=== PATIENT | male | born 1960 | race Caucasian/White ===

== ENCOUNTER 2016-10-21 12:29 | Emergency (ER) | payer MEDICARE, OTHER ==
[~2016-10-21] VITALS: Ht 167.6 cm; Wt 72.6 kg
[~2016-10-21 12:29] MED LIST: AMLO2.5T PO; AMLO5TAB2 PO; AMOX500C2 PO; BPR100T PO; BPR75T PO; BRIMON0.2 OD; BUPR-168 PO; CEPH-507 PO; CIPR-225 PO; CIPR500T21 PO; D50KC PO; DORZ10DR2 OD; DOXY100C2 PO; FERR325C PO; FLUO20CA42 PO; FLUO40CA PO; GABA600T2 PO; GBPN300C PO; GBPN600T PO; GLIP10TA13 PO; GLIP5TAB13 PO; HCT25T PO; HYDR-1231 PO; HYDR-3812 PO; HYDR12.56 PO; HYDR1TAB66 PO; INSU100I14 SQ; INSU100I16 SQ; INSU100I29 SQ; LEVE1U SQ; LISI10TA PO; LISI10TA2 PO; LISI5TAB PO; METO-270 PO; METO50TA7 PO; METR500T21 PO; MGX400T PO; ONDA8TAB9 PO; OXYC-471 PO; PNT40TEC PO; PRD20T PO; PRM25T PO; PROM25TA14 PO; SCR1T1 PO; TERB15CR6 TP; TOBR5DRO12 OP; TRAZ-28 PO; TRAZ150T42 PO; TRZ50T PO; [UNRECOGNIZED DRUG - CODE] SQ
--- OUTSIDE RECORDS SUMMARY | 2016-10-21 12:34 | XMS REPORT | Continuity of Care Document ---
Author Author [facility] Organization [facility] Address Unknown Phone Unavailable Care Team Providers Care Quality Control Lead Name Role Phone Alvarez Ozuna PCP [phone] Source Comments Some departments are not documenting in the electronic medical record. If you do not see the information that you expected, contact Release of Information in the Health Information Management department at [phone] for further assistance in locating additional records.[facility] Active Allergies and Adverse Reactions No Known Allergies Current Medications Prescription Sig. Disp. Refills Start End Date Status Date gabapentin (NEURONTIN) Take 600 mg by mouth Active 600 mg tablet three times daily. INSULIN ASPART (NOVOLOG Inject 5 Units into Active SC) area(s) as directed three times daily before meals. glipiZIDE (GLUCOTROL) 10 Take 10 mg by mouth. Take Active mg tablet 1 and 1/2 tablets (15 mg) Daily. FLUoxetine(+) (PROZAC) 40 Take 40 mg by mouth twice Active mg capsule daily. traZODone (DESYREL) 50 mg Take 50 mg by mouth at Active tablet bedtime daily. lisinopril (PRINIVIL; Take 10 mg by mouth twice Active ZESTRIL) 10 mg tablet daily. amLODIPine (NORVASC) 5 mg Take 2.5 mg by mouth Active tablet twice daily. ferrous sulfate 325 mg Take 325 mg by mouth Active (65 mg iron) tablet twice daily. ERGOCALCIFEROL (VITAMIN Take 2,000 Units by mouth Active D2) (VITAMIN D PO) daily. HYDROcodone/acetaminophen Take 1 Tab by mouth every Active (NORCO; VICODIN) 5-325 mg 6 hours as needed for tablet Pain metoprolol XL (TOPROL XL) Take 25 mg by mouth Active 25 mg tablet daily. buPROPion (WELLBUTRIN) 75 Take 75 mg by mouth twice Active mg tablet daily. insulin detemir(+) Inject 5 Units into 10 mL 12 01/17/20 Active (LEVEMIR) 100 unit/mL area(s) as directed at 16 soln bedtime daily. Active Problems Problem Noted Date HTN (hypertension) 01/15/2016 Urinary retention with incomplete bladder emptying 01/15/2016 Diabetes ([facility]) 01/15/2016 Proliferative diabetic retinopathy(362.02) 01/14/2013 Last Assessment & Plan: Resolving vh after PRP. Recheck 1 month. 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 Give sample of Combigan to use bid. Recheck 1 month. Central retinal artery occlusion 01/14/2013 Last Assessment & Plan: -Reports BP 140s-170s systolic on medication -Presumed based on history, no view at this time Resolved Problems Problem Noted Date Resolved Date Sepsis ([facility]) 01/15/2016 01/17/2016 Severe sepsis ([facility]) 01/15/2016 01/17/2016 LATISHA (acute kidney injury) ([facility]) 01/15/2016 01/17/2016 High anion gap metabolic acidosis 01/15/2016 01/17/2016 Social History Tobacco Use Types Packs/Day Years Used Date Former Smoker Cigars 2 20 Quit: 10/20/2011 Smokeless Tobacco: Never Used Alcohol Use Drinks/Week oz/Week Comments No Last Filed Vital Signs Vital Sign Reading Time Taken Blood Pressure 154/68 01/17/2016 8:39 AM CDT Pulse 62 01/16/2016 7:00 PM CDT Temperature 36.7 C (98.1 F) 01/17/2016 8:39 AM CDT Respiratory Rate - - Height 1.676 m (5' 6") 06/24/2014 2:05 PM CDT Weight 68.04 kg (150 lb) 06/24/2014 2:05 PM CDT Body Mass Index 24.22 06/24/2014 2:05 PM CDT Oxygen Saturation 98% 01/17/2016 8:39 AM CDT Plan of Care Health Maintenance Due Date Last Done Comments Physical (Comprehensive) 1965 Exam Pertussis Vaccine 1969 Tetanus Vaccine 1975 Colorectal Cancer 2008 Screening Influenza Vaccine 06/20/2016 Results from Last 3 Months Not on file
[2016-10-21 13:00] VITALS: BP 157/59
--- NOTE | 2016-10-21 13:29 | ED General ---
General Chief Complaint: Bite-Animal/Human/Insect Stated Complaint: R HAND THUMB BITE, SWOLLEN Nursing Triage Note: PT BIT BY OWN DOG A COUPLE OF WEEKS AGO, R THUMB SWOLLEN REDDEND, PAINFUL, HAS STREAK GOING UP WRIST FROM THUMB R SIDE Nursing Sepsis Screen: No Definite Risk Source of Information: Patient, Spouse Exam Limitations: No Limitations History of Present Illness Time Seen by Provider: 13:28 Initial Comments 56 yo male patient presents to the emergency department with complaints of right thumb pain, swelling, redness. Sustained a dog bite to the right thumb a couple of weeks ago while trying to break up a dog fight. Now reports streaking up the right forearm. Location Injury Occurred: home Timing/Duration: Getting Worse, Other (2 weeks) Modifying Factors: worse with Movement, worse with Other (worsened palpation) Allergies and Home Medications Allergies Coded Allergies: No Known Drug Allergies (Unverified , 08/24/13) Home Medications Amlodipine Besylate 5 Mg Tablet 2.5 MG PO DAILY (Reported) TAKES 1/2 OF A (5 MG) TABLET Amoxicillin/Potassium Clav 1 Each Tablet #20 1 EACH PO BID Prescribed by: POP AGUILLON on 10/21/16 1458 Brimonidine Tartrate 5 Ml Btl 1 DROP OD BID (Reported) Bupropion HCl 75 Mg Tablet 1 TAB PO BID (Reported) Clindamycin HCl 300 Mg Capsule #20 300 MG PO BID Prescribed by: POP AGUILLON on 10/21/16 1458 Dorzolamide HCl 10 Ml Drops 10 ML OD BID (Reported) Ergocalciferol (Vitamin D2) 50,000 Unit Capsule 50,000 UNIT PO WEEKLY (Reported ) Ferrous Sulfate 325 Mg Capsule.er 325 MG PO BID (Reported) Fluoxetine HCl 40 Mg Capsule 80 MG PO DAILY (Reported) TAKES 2 (40 MG) CAPSULES Gabapentin 600 Mg Tablet 600 MG PO TID (Reported) Glipizide 10 Mg Tablet 15 MG PO DAILY (Reported) TAKES 1 & 1/2 OF A (10 MG) TABLET Hydrocodone/Acetaminophen 1 Each Tablet 1 TAB PO Q6H PRN PRN PAIN (Reported) Hydrocodone/Acetaminophen 1 Each Tablet #14 1 EACH PO Q4H PRN PRN PAIN Prescribed by: POP AGUILLON on 10/21/16 1458 Insulin Aspart 300 Units/3 Ml Solution 5 UNITS SQ TID (Reported) PER SLIDING SCALE; DOES NOT ADMINISTER IF BS IS 150 OR BELOW Insulin Detemir 100 Unit/1 Ml Insuln.pen 15 UNITS SQ HS (Reported) DOES NOT ADMINISTER IF BS IS 150 OR BELOW Lisinopril 10 Mg Tablet 10 MG PO BID (Reported) Metoprolol Succinate 25 Mg Tab.er.24h 25 MG PO HS (Reported) Trazodone HCl 50 Mg Tablet 50 MG PO HS (Reported) Constitutional: No chills, No fever, No malaise EENTM: no symptoms reported Respiratory: no symptoms reported Cardiovascular: no symptoms reported Gastrointestinal: no symptoms reported Musculoskeletal: see HPI Skin: see HPI Psychiatric/Neurological: No Symptoms Reported All Other Systems Reviewed Negative Unless Noted: Yes (Negative excepted noted.) Past Qftvcaa-Fcotct-Zahley Hx Patient Social History Alcohol Use: Denies Use Recreational Drug Use: No Smoking Status: Former Smoker Former Smoker/When Quit: Recent Foreign Travel: No Contact w/Someone Who Travel: No Recent Infectious Disease Expo: No Recent Hopitalizations: No Physical Abuse Screen: No Sexual Abuse: No Immunizations Up To Date Tetanus Booster (TDap): Less than 5yrs PED Vaccines UTD: No Date of Pneumonia Vaccine: Jul 17, 2015 Date of Influenza Vaccine: Jul 17, 2015 Seasonal Allergies Seasonal Allergies: No Surgeries HX Surgeries: Yes (HEART CATH/ JAW SURGERY) Surgeries: Cardiac, Prostatectomy Respiratory Hx Respiratory Disorders: No Cardiovascular Hx Cardiac Disorders: Yes Cardiac Disorders: High Cholesterol, Hypertension Neurological Hx Neurological Disorders: Yes Neurological Disorders: Neuropathy Reproductive System Hx Reproductive Disorders: No Sexually Transmitted Disease: No HIV/AIDS: No Genitourinary Hx Genitourinary Disorders: Yes (PROSTATE CANCER) Genitourinary Disorders: Prostate Problems Gastrointestinal Hx Gastrointestinal Disorders: Yes Gastrointestinal Disorders: Chronic Diarrhea, C-Diff Musculoskeletal Hx Musculoskeletal Disorders: Yes (CHRONIC NECK AND BACK PAIN ) Musculoskeletal Disorders: Arthritis, Chronic Back Pain Endocrine Hx Endocrine Disorders: Yes Endocrine Disorders: Diabetes, Insulin dep HEENT HX ENT Disorders: Yes (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) HEENT Disorders: Glaucoma Loss of Vision: Right Cancer Hx Cancer: Yes Cancer: Prostate Psychosocial Hx Psychiatric Problems: Yes Behavioral Health Disorders: Anxiety, Depression Integumentary HX Skin/Integumentary Disorder: No Blood Transfusions Hx Blood Disorders: No Adverse Reaction to a Blood Tr: No Reviewed Nursing Assessment Reviewed/Agree w Nursing PMH: Yes Family Medical History Significant Family History: No Pertinent Family Hx Family Medial History: Family history: Hypertension 03 FATHER, Onset:40's - 50 03 MOTHER, Onset:40's - 50 History of - respiratory disease 03 MOTHER, Onset:50's - 60 Myocardial infarction 03 FATHER 03 MOTHER No Family History of: Abdominal aortic aneurysm [place]'s disease Alcoholism Aphasia Cancer Cancer of colon Cataract Chest pain Congenital heart disease Congestive heart failure Cystic fibrosis Dementia Dysphagia Family history: Allergy Family history: Alzheimer's disease Family history: Arthritis Family history: Asthma Family history: Breast disease Family history: Cardiovascular disease Family history: Coronary thrombosis Family history: Diabetes mellitus Family history: Gastrointestinal disease Family history: Glaucoma Family history: Osteoporosis Family history: Thyroid disorder Headache Hearing loss Heart disease Hereditary disease History of - anemia History of - disorder History of drug abuse Human immunodeficiency virus (HIV) seropositivity Hypercholesterolemia Infertile Kidney disease Malignant neoplasm of lung Parkinson's disease Prostate cancer Psychotic disorder Seizure disorder Stroke Tuberculosis Visual impairment Physical Exam Vital Signs Vital Sign - Last 12Hours 10/21/16 13:00 Temp 97.2 Pulse 62 Resp 18 B/P 157/59 Pulse Ox 97 Capillary Refill : Less Than 3 Seconds General Appearance: No Apparent Distress WD/WN Cardiovascular: Normal Peripheral Pulses Extremity: Normal Capillary Refill Inflammation (erythema rt thumb with red streak up the forearm to the antecubital fossa) Swelling (rt thumb) Other ( tenderness rt thumb. abscess of the lateral nail fold.) Neurologic/Psychiatric: Alert Oriented x3 No Motor/Sensory Deficits Normal Mood/Affect Skin: Warm/Dry Erythema (erythema of the rt thumb with streaking up the forearm to the antecubital fossa. pustule/abscess of the lateral nail fold.) I&D : Site: rt thumb Blade Size: 11 I & D Procedure: betadine prep sterile drapes applied Progress Pustule unroofed Progress/Results/Core Measures Results/Orders Lab Results Laboratory Tests Test 10/21/16 14:06 Range/Units Basophils # (Auto) 0.0 0.0-0.1 10^3/uL Basophils (%) (Auto) 0 0-10 % C-Reactive Protein High Sensitivity 2.29 H 0.00-0.50 MG/DL Eosinophils # (Auto) 0.2 0.0-0.3 10^3/uL Eosinophils (%) (Auto) 2 0-10 % Hematocrit 34 L 40-54 % Hemoglobin 11.5 L 13.3-17.7 G/DL Lymphocytes # (Auto) 2.2 1.0-4.0 X 10^3 Lymphocytes (%) (Auto) 18 12-44 % Mean Corpuscular Hemoglobin 30 25-34 PG Mean Corpuscular Hemoglobin Concent 34 32-36 G/DL Mean Corpuscular Volume 89 80-99 FL Mean Platelet Volume 11.1 H 7.4-10.4 FL Monocytes # (Auto) 1.1 H 0.0-1.0 X 10^3 Monocytes (%) (Auto) 9 0-12 % Neutrophils # (Auto) 8.9 H 1.8-7.8 X 10^3 Neutrophils (%) (Auto) 71 42-75 % Platelet Count 250 130-400 10^3/uL Red Blood Count 3.84 L 4.35-5.85 10^6/uL Red Cell Distribution Width 13.3 10.0-14.5 % White Blood Count 12.5 H 4.3-11.0 10^3/uL Micro Results Microbiology 10/21/16 Gram Stain - Final, Resulted 10/21/16 Wound Culture - Preliminary, Resulted No growth My Orders Orders-POP AGUILLON Cbc With Automated Diff (10/21/16 13:51) Hs C Reactive Protein (10/21/16 13:51) Wound Culture (10/21/16 13:51) Saline Lock/Iv-Start (10/21/16 13:51) Ketorolac Injection (Toradol Injection) (10/21/16 13:51) Clindamycin 900 Mg/50 Ml Ivpb (Cleocin P (10/21/16 14:45) Vital Signs/I&O Blood Pressure Mean: 91 Departure Communication Progress Notes Patient seen and evaluated. Plan for discharge to home with Augmentin, clindamycin, and hydrocodone. All return precautions were discussed with the patient. Patient voices understanding and agrees with the treatment plan. Impression Impression: Primary Impression: Cellulitis and abscess of finger, unspecified Additional Impression: Dog bite of finger Qualified Code: S61.259A - Open bite of unspecified finger without damage to nail, initial encounter Disposition: 01 HOME, SELF-CARE Condition: Improved Departure-Patient Inst. Decision time for Depature: 14:55 Referrals: [facility] (PCP/Family) Primary Care Physician Patient Instructions: Abscess Incision and Drainage (DC), Animal Bites (DC) Add. Discharge Instructions: All discharge instructions reviewed with patient and/or family. Voiced understanding. Medications as instructed. Elevate the right upper extremity on pillows above the level of the heart. Shower with antibacterial soap. Change dressing with gauze or Band-Aid twice daily and as needed. Follow-up with your family practitioner this week for recheck. Call for appointment time. Return to the emergency department for worsened redness, drainage, fever , or any other concerns. Scripts Hydrocodone/Acetaminophen (Hydrocodon -Acetaminophen 5-325)1 Each Tablet1 Each PO Q4H PRN PAIN #14 TAB Ref 0 Prov:POP AGUILLON 10/21/16 Clindamycin HCl (Cleocin HCl)300 Mg [id number] Mg PO BID #20 CAP Ref 0 Prov:POP AGUILLON 10/21/16 Amoxicillin/Potassium Clav (Augmentin 875-125 Tablet)1 Each Tablet1 Each PO BID #20 TAB Ref 0 Prov:POP AGUILLON 10/21/16 POP AGUILLON Oct 21, 2016 13:29 POP AGUILLON Oct 21, 2016 13:29
[2016-10-21] MEDS ORDERED: KETOROLAC 30 MG/ML VIAL IVP STA (13:51)
[2016-10-21 14:11] LABS: BASOPHILS % (AUTO) 0 % (0-10); EOSINOPHILS # (AUTO) 0.2 10^3/uL (0.0-0.3); EOSINOPHILS % (AUTO) 2 % (0-10); LYMPHOCYTES # (AUTO) 2.2 X 10^3 (1.0-4.0); LYMPHOCYTES % (AUTO) 18 % (12-44); MEAN CORPUSCULAR HEMOGLOBIN 30 PG (25-34); MEAN CORPUSCULAR HGB CONC 34 G/DL (32-36); MEAN CORPUSCULAR VOLUME 89 FL (80-99); MEAN PLATELET VOLUME 11.1 FL (7.4-10.4); MONOCYTES # (AUTO) 1.1 X 10^3 (0.0-1.0); MONOCYTES % (AUTO) 9 % (0-12); NEUTROPHILS # (AUTO) 8.9 X 10^3 (1.8-7.8); NEUTROPHILS % (AUTO) 71 % (42-75); PLATELET COUNT 250 10^3/uL (130-400); RED BLOOD COUNT 3.84 10^6/uL (4.35-5.85); RED CELL DISTRIBUTION WIDTH 13.3 % (10.0-14.5); WHITE BLOOD COUNT 12.5 10^3/uL (4.3-11.0)
[2016-10-21] MEDS ORDERED: CLINDAMYCIN 900 MG/50 ML IVPB 50 ML IV ONE (14:45)
[2016-10-21] MEDS ORDERED: AMOX-358 PO (14:58)
[2016-10-21] MEDS ORDERED: HYDR-3812 PO (14:58)
[2016-10-21] MEDS ORDERED: CLIN300C3 PO (14:58)
== END 2016-10-21 16:00 | disposition home or self-care (01) ==
LOC: EDUNIT# 12:29 → ER 12:31
DX: S61.051A Open bite of right thumb without damage to nail, initial encounter (principal); L03.011 Cellulitis of right finger; E11.9 Type 2 diabetes mellitus without complications; I10 Essential (primary) hypertension; Z79.84 Long term (current) use of oral hypoglycemic drugs; Z79.4 Long term (current) use of insulin; Z79.899 Other long term (current) drug therapy; W54.0XXA Bitten by dog, initial encounter; Y99.8 Other external cause status
CPT/HCPCS: 36415; 85025; 86141; 87070; 87205; 96365; 96375

== ENCOUNTER 2017-04-09 12:28 | Emergency (ER) | payer MEDICARE ==
[~2017-04-09 12:28] MED LIST changes: +AMOX-358 PO; +CLIN300C3 PO; -D50KC PO; +ERGO50006 PO
[2017-04-09] MEDS ORDERED: inSUlin (REGULAR) HUMAN 1 UNIT/0.01 ML (CHARGE PER UNIT) IV ONE (12:45)
[2017-04-09] MEDS ORDERED: NS IV 1000 ML 1,000 ML IV SCH (12:45)
[2017-04-09] MEDS ORDERED: LYRICA (12:47)
[2017-04-09] MEDS ORDERED: fentaNYL INJECTION 100 MCG/2 ML AMP IVP STA (13:14)
[2017-04-09] MEDS ORDERED: CEPH500T PO (15:08)
== END 2017-04-09 15:11 | disposition home or self-care (01) ==
DX: E11.65 Type 2 diabetes mellitus with hyperglycemia (principal); N39.0 Urinary tract infection, site not specified; M25.561 Pain in right knee; F41.8 Other specified anxiety disorders; H40.9 Unspecified glaucoma; H54.41 Blindness, right eye, normal vision left eye; I10 Essential (primary) hypertension; Z79.4 Long term (current) use of insulin; Z85.46 Personal history of malignant neoplasm of prostate

== ENCOUNTER 2017-06-25 23:04 | Inpatient (IN) | payer MEDICARE ==
[~2017-06-25] VITALS: Ht 167.6 cm; Wt 65.0 kg
[~2017-06-25 23:04] MED LIST changes: -BRIMON0.2 OD; +BRIMON0.2 OU; +CEPH500T PO; +LYRICA
[2017-06-25] MEDS ORDERED: NS IV 1000 ML 1,000 ML IV ONE ×2 (23:15→23:46)
[2017-06-25] MEDS ORDERED: inSUlin (REGULAR) HUMAN 1 UNIT/0.01 ML (CHARGE PER UNIT) ONE (23:15)
--- NOTE | 2017-06-25 23:18 | ED General ---
General Stated Complaint: VOMITING,AMS,DIABETES Source of Information: Patient Exam Limitations: No Limitations History of Present Illness Time Seen by Provider: 23:10 Initial Comments Here with report of altered mental status and vomiting. This apparently is been going on for the last 24 hours. Number reports that he has become increasingly confused. Also noted dark vomiting. Unsure if he has had bowel movement or urination although did have diarrhea yesterday. No report of injuries. Timing/Duration: 1-2 Days Severity: Severe Associated Systoms: No Chest Pain, No Fever/Chills, Nausea/Vomiting, No Shortness of Air, Weakness Allergies and Home Medications Allergies Coded Allergies: No Known Drug Allergies (Unverified , 08/24/13) Home Medications Amlodipine Besylate 5 Mg Tablet, 2.5 MG PO DAILY, (Reported) TAKES 1/2 OF A (5 MG) TABLET Brimonidine Tartrate 5 Ml Btl, 1 DROP OD BID, (Reported) Bupropion HCl 75 Mg Tablet, 1 TAB PO BID, (Reported) Cephalexin 500 Mg Tablet, 500 MG PO BID, #2014 Ref 0 Prescribed by: DC LAGUNA on 04/09/17 1508 Dorzolamide HCl 10 Ml Drops, 10 ML OD BID, (Reported) Ergocalciferol (Vitamin D2) 50,000 Unit Capsule, 50,000 UNIT PO WEEKLY, ( Reported) Ferrous Sulfate 325 Mg Capsule.er, 325 MG PO BID, (Reported) Fluoxetine HCl 40 Mg Capsule, 80 MG PO DAILY, (Reported) TAKES 2 (40 MG) CAPSULES Hydrocodone/Acetaminophen 1 Each Tablet, 1 TAB PO Q6H PRN for PAIN, (Reported) Insulin Aspart 300 Units/3 Ml Solution, 5 UNITS SQ TID, (Reported) PER SLIDING SCALE; DOES NOT ADMINISTER IF BS IS 150 OR BELOW Insulin Detemir 100 Unit/1 Ml Insuln.pen, 15 UNITS SQ HS, (Reported) DOES NOT ADMINISTER IF BS IS 150 OR BELOW Metoprolol Succinate 25 Mg Tab.er.24h, 25 MG PO HS, (Reported) Trazodone HCl 50 Mg Tablet, 50 MG PO HS, (Reported) [Lyrica] , (Reported) Constitutional: see HPI, No chills, No fever, weakness Respiratory: no symptoms reported Cardiovascular: no symptoms reported Gastrointestinal: diarrhea, nausea, vomiting Psychiatric/Neurological: See HPI, Weakness Other Unable to completely review of systems due to altered mental status. Past Gqqzynl-Nghscc-Urjsqx Hx Patient Social History Alcohol Use: Denies Use Recreational Drug Use: No Smoking Status: Former Smoker Former Smoker, Quit: Oct 20, 2014 Recent Foreign Travel: No Contact w/Someone Who Travel: No Recent Hopitalizations: No Immunizations Up To Date Tetanus Booster (TDap): Less than 5yrs PED Vaccines UTD: No Date of Pneumonia Vaccine: Jul 17, 2015 Date of Influenza Vaccine: Jul 17, 2015 Seasonal Allergies Seasonal Allergies: No Surgeries History of Surgeries: Yes (HEART CATH/ JAW SURGERY) Surgeries: Cardiac, Prostatectomy Respiratory History of Respiratory Disorde: No Currently Using CPAP: No Currently Using BIPAP: No Cardiovascular History of Cardiac Disorders: Yes Cardiac Disorders: High Cholesterol, Hypertension Neurological History of Neurological Disord: Yes Neurological Disorders: Neuropathy Reproductive System Hx Reproductive Disorders: No Sexually Transmitted Disease: No HIV/AIDS: No Genitourinary Genitourinary Disorders: Prostate Problems Gastrointestinal History of Gastrointestinal Di: Yes Gastrointestinal Disorders: Chronic Diarrhea, C-Diff Musculoskeletal History of Musculoskeletal Dis: Yes (CHRONIC NECK AND BACK PAIN ) Musculoskeletal Disorders: Arthritis, Chronic Back Pain Endocrine History of Endocrine Disorders: Yes Endocrine Disorders: Diabetes, Insulin dep HEENT HEENT Disorders: Glaucoma Loss of Vision: Right Cancer History of Cancer: Yes Cancer: Prostate Psychosocial History of Psychiatric Problem: Yes Behavioral Health Disorders: Anxiety, Depression Integumentary History of Skin or Integumenta: No Blood Transfusions History of Blood Disorders: No Adverse Reaction to a Blood Tr: No Reviewed Nursing Assessment Reviewed/Agree w Nursing PMH: Yes Family Medical History Other History of her records review is patient has altered mental status Family Medial History: Family history: Hypertension 03 FATHER, Onset:40's - 50 03 MOTHER, Onset:40's - 50 History of - respiratory disease 03 MOTHER, Onset:50's - 60 Myocardial infarction 03 FATHER 03 MOTHER Physical Exam Vital Signs Vital Sign - Last 12Hours 06/25/17 23:20 Temp 97.2 Pulse 133 Resp 26 B/P (MAP) 187/97 Pulse Ox 97 O2 Delivery Room Air Capillary Refill : General Appearance: Moderate Distress (weakness and altered), Thin HEENT: Other (right eye blind with pupil dilation that is typical per family member. Dry mucous membranes with dark substance on tongue and within mouth) Neck: Non Tender, Supple Respiratory: Lungs Clear, Normal Breath Sounds Cardiovascular: No Murmur, Tachycardia Gastrointestinal: Non Tender, Soft Back: Normal Inspection, No CVA Tenderness, No Vertebral Tenderness Extremity: Normal Range of Motion, Non Tender Neurologic/Psychiatric: Disoriented x3, Other (awake but disoriented 3. Follows some commands.) Skin: Cool, Pallor Focused Exam Evaluation Lactate Level Laboratory Tests 06/25/17 23:13: Lactic Acid Level 5.15*H Lactic Acid Level Laboratory Tests Test 06/25/17 23:13 Lactic Acid Level 5.15 MMOL/L (0.50-2.00) *H Progress/Results/Core Measures Results/Orders Lab Results Laboratory Tests Test 06/25/17 23:13 06/25/17 23:18 06/25/17 23:19 Range/Units White Blood Count 31.6 *H 4.3-11.0 10^3/uL Red Blood Count 4.20 L 4.35-5.85 10^6/uL Hemoglobin 12.3 L 13.3-17.7 G/DL Hematocrit 36 L 40-54 % Mean Corpuscular Volume 86 80-99 FL Mean Corpuscular Hemoglobin 29 25-34 PG Mean Corpuscular Hemoglobin Concent 34 32-36 G/DL Red Cell Distribution Width 13.4 10.0-14.5 % Platelet Count 507 H 130-400 10^3/uL Mean Platelet Volume 11.4 H 7.4-10.4 FL Neutrophils (%) (Auto) 91 H 42-75 % Lymphocytes (%) (Auto) 5 L 12-44 % Monocytes (%) (Auto) 5 0-12 % Eosinophils (%) (Auto) 0 0-10 % Basophils (%) (Auto) 0 0-10 % Neutrophils # (Auto) 28.6 H 1.8-7.8 X 10^3 Lymphocytes # (Auto) 1.4 1.0-4.0 X 10^3 Monocytes # (Auto) 1.5 H 0.0-1.0 X 10^3 Eosinophils # (Auto) 0.0 0.0-0.3 10^3/uL Basophils # (Auto) 0.0 0.0-0.1 10^3/uL Neutrophils % (Manual) 91 % Lymphocytes % (Manual) 5 % Monocytes % (Manual) 3 % Band Neutrophils 1 % Blood Morphology Comment NORMAL Prothrombin Time 13.3 12.2-14.7 SEC INR Comment 1.0 0.8-1.4 Activated Partial Thromboplast Time 23 L 24-35 SEC Sodium Level 141 135-145 MMOL/L Potassium Level 4.3 3.6-5.0 MMOL/L Chloride Level 91 L 98-107 MMOL/L Carbon Dioxide Level 7 *L 21-32 MMOL/L Anion Gap 43 H 5-14 MMOL/L Blood Urea Nitrogen 37 H 7-18 MG/DL Creatinine 3.13 H 0.60-1.30 MG/DL Estimat Glomerular Filtration Rate 21 BUN/Creatinine Ratio 12 Glucose Level 707 *H 70-105 MG/DL Lactic Acid Level 5.15 *H 0.50-2.00 MMOL/L Calcium Level 10.8 H 8.5-10.1 MG/DL Phosphorus Level 7.3 H 2.3-4.7 MG/DL Magnesium Level 2.3 1.8-2.4 MG/DL Total Bilirubin 1.0 0.1-1.0 MG/DL Aspartate Amino Transf (AST/SGOT) 17 5-34 U/L Alanine Aminotransferase (ALT/SGPT) 20 0-55 U/L Alkaline Phosphatase 200 H 40-136 U/L Troponin I < 0.30 <0.30 NG/ML C-Reactive Protein High Sensitivity 3.63 H 0.00-0.50 MG/DL Total Protein 8.4 H 6.4-8.2 GM/DL Albumin 4.6 H 3.2-4.5 GM/DL Glucometer > 600 *H 70-110 MG/DL Blood Gas Puncture Site LEFT RADIAL Blood Gas Patient Temperature 97.2 Arterial Blood pH 7.32 *L 7.37-7.43 Arterial Blood Partial Pressure CO2 12 *L 35-45 MMHG Arterial Blood Partial Pressure O2 170 H 79-93 MMHG Arterial Blood HCO3 6 *L 23-27 MMOL/L Arterial Blood Total CO2 6.6 L 21.0-31.0 MMOL/L Arterial Blood Oxygen Saturation 98 94-100 % Arterial Blood Base Excess -19.5 L -2.5-2.5 MMOL/L Leroy Test YES-POS Blood Gas Ventilator Setting NO Blood Gas Inspired Oxygen ROOM AIR My Orders Orders - DC LAGUNA MD Cbc With Automated Diff (06/25/17 23:15) Comprehensive Metabolic Panel (06/25/17 23:15) Hs C Reactive Protein (06/25/17 23:15) Lactic Acid Analyzer (06/25/17 23:15) Magnesium (06/25/17 23:15) Protime With Inr (06/25/17 23:15) Partial Thromboplastin Time (06/25/17 23:15) Troponin I (06/25/17 23:15) Ua Culture If Indicated (06/25/17 23:15) Blood Culture (06/25/17 23:15) Phosphorus (06/25/17 23:15) Ekg Tracing (06/25/17 23:15) Monitor-Rhythm Ecg Trace Only (06/25/17 23:15) Chest 1 View, Ap/Pa Only (06/25/17 23:15) Saline Lock/Iv-Start (06/25/17 23:15) Ns Iv 1000 Ml (Sodium Chloride 0.9%) (06/25/17 23:15) Accucheck Stat ONCE (06/25/17 23:18) Arterial Blood Gas (06/25/17 23:19) Insulin (Regular) Human (Humulin R (Per (06/25/17 23:20) Insulin (Regular) Human (Humulin R (Per (06/25/17 23:15) Ondansetron Injection (Zofran Injectio (06/25/17 23:30) Manual Differential (06/25/17 23:13) Saline Lock/Iv-Start (06/25/17 23:46) Ns Iv 1000 Ml (Sodium Chloride 0.9%) (06/25/17 23:46) Medications Given in ED Current Medications Medications Dose Ordered Sig/Anitra Route Start Time Stop Time Status Last Admin Dose Admin Ondansetron HCl 4 mg ONCE ONCE IVP 06/25/17 23:30 06/25/17 23:31 DC 06/25/17 23:45 4 MG Sodium Chloride 1,000 ml @ 0 mls/hr Q0M ONCE IV 06/25/17 23:15 06/25/17 23:17 DC 06/25/17 23:25 0 MLS/HR Sodium Chloride 1,000 ml @ 0 mls/hr Q0M ONCE IV 06/25/17 23:46 06/25/17 23:47 DC 06/25/17 23:52 0 MLS/HR Vital Signs/I&O Vital Sign - Last 12Hours 06/25/17 23:20 Temp 97.2 Pulse 133 Resp 26 B/P (MAP) 187/97 Pulse Ox 97 O2 Delivery Room Air Progress Note : Progress Note Seen and evaluated on arrival. IV, labs, EKG, chest x-ray, UA, blood cultures and lactic acid, ABG, normal saline 1 L bolus and insulin 10 units IV ordered. Monitor patient. Repeat normal saline 1 L bolus and second IV established. Patient is in diabetic ketoacidosis with acute renal failure. I did discuss the case with Dr. Ashley Lomeli at [phone]. She accepts patient for admission, inpatient status to ICU. This was discussed with patient's family who agrees with plan. ECG Initial ECG Impression Date: Jun 25, 2017 Initial ECG Impression Time: 23:22 Initial ECG Rate: 132 Initial ECG Rhythm: S.Tach Initial ECG Comparisson: Changed Comment Sinus tachycardia with inferior Q waves. Normal axis. No evidence of ST elevation [place]. Similar in appearance to 18 Mar 2014 but increased rate. Interpreted by me. Diagnostic Imaging Diagonstic Imaging: Xray Plain Films/CT/US/NM/MRI: chest Comments No acute findings Departure Communication (Admissions) Time/Spoke to Admitting Phy: 00:06 Impression Impression: Primary Impression: DKA (diabetic ketoacidoses) Qualified Codes: E13.10 - Other specified diabetes mellitus with ketoacidosis without coma Additional Impressions: Acute renal failure syndrome Altered mental status Qualified Codes: R41.0 - Disorientation, unspecified Disposition: ADMITTED INPATIENT Condition: Stable Admissions Decision to Admit Reason: Admit from ER (General) Decision to Admit/Date: Jun 26, 2017 Time/Decision to Admit Time: 00:06 Departure-Patient Inst. Referrals: [facility] (PCP) Primary Care Physician LULU FLOWERS (Family) Primary Care Physician DC LAGUNA MD Jun 25, 2017 23:18
[2017-06-25] MEDS ORDERED: inSUlin (REGULAR) HUMAN 1 UNIT/0.01 ML (CHARGE PER UNIT) IV STA (23:20)
[2017-06-25 23:27] LABS: BASOPHILS % (AUTO) 0 % (0-10); EOSINOPHILS % (AUTO) 0 % (0-10); LYMPHOCYTES # (AUTO) 1.4 X 10^3 (1.0-4.0); LYMPHOCYTES % (AUTO) 5 % (12-44); MEAN CORPUSCULAR HEMOGLOBIN 29 PG (25-34); MEAN CORPUSCULAR HGB CONC 34 G/DL (32-36); MEAN CORPUSCULAR VOLUME 86 FL (80-99); MEAN PLATELET VOLUME 11.4 FL (7.4-10.4); MONOCYTES # (AUTO) 1.5 X 10^3 (0.0-1.0); MONOCYTES % (AUTO) 5 % (0-12); NEUTROPHILS # (AUTO) 28.6 X 10^3 (1.8-7.8); NEUTROPHILS % (AUTO) 91 % (42-75); PLATELET COUNT 507 10^3/uL (130-400); RED CELL DISTRIBUTION WIDTH 13.4 % (10.0-14.5)
[2017-06-25] MEDS ORDERED: ONDANSETRON 4 MG/2 ML (SDV) Z0FRAN IVP ONE (23:30)
[2017-06-25 23:33] LABS: WHITE BLOOD COUNT 31.6 10^3/uL (4.3-11.0)
[2017-06-25 23:36] LABS: PROTHROMBIN TIME PATIENT 13.3 SEC (12.2-14.7)
[2017-06-25 23:45] LABS: ALANINE AMINOTRANSFERASE 20 U/L (0-55); ALBUMIN 4.6 GM/DL (3.2-4.5); ANION GAP 43 MMOL/L (5-14); ASPARTATE AMINO TRANSFERASE 17 U/L (5-34); BLOOD UREA NITROGEN 37 MG/DL (7-18); BUN/CREATININE RATIO 12; CALCIUM 10.8 MG/DL (8.5-10.1); CARBON DIOXIDE 7 MMOL/L (21-32); CHLORIDE 91 MMOL/L (98-107); CREATININE SERUM 3.13 MG/DL (0.60-1.30); GFR ESTIMATED 21; GLUCOSE 707 MG/DL (70-105); MAGNESIUM 2.3 MG/DL (1.8-2.4); PHOSPHORUS 7.3 MG/DL (2.3-4.7); POTASSIUM 4.3 MMOL/L (3.6-5.0); SODIUM 141 MMOL/L (135-145); TOTAL PROTEIN 8.4 GM/DL (6.4-8.2); hs C REACTIVE PROTEIN 3.63 MG/DL (0.00-0.50)
[2017-06-25 23:46] LABS: BAND NEUTROPHILS 1 %; LYMPHOCYTES % (MANUAL) 5 %; NEUTROPHILS % (MANUAL) 91 %
[2017-06-25 23:50] LABS: TROPONIN I < 0.30 NG/ML (<0.30)
[2017-06-25 23:53] LABS: ABG BASE EXCESS -19.5 MMOL/L (-2.5-2.5); ABG OXYGEN SATURATION 98 % (94-100); ABG PO2 170 MMHG (79-93); ABG TCO2 6.6 MMOL/L (21.0-31.0)
[2017-06-25 23:54] LABS: ABG PH 7.32 (7.37-7.43)
[2017-06-25 23:55] LABS: ABG HCO3 6 MMOL/L (23-27); ABG PCO2 12 MMHG (35-45); ALLENS TEST YES-POS; PATIENT TEMP 97.2
[2017-06-26] VITALS (23 sets, daily range): BP systolic 119–186; BP diastolic 51–114
--- OUTSIDE RECORDS SUMMARY | 2017-06-26 00:28 | XMS REPORT | Clinical Summary ---
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 If you do not see the information that you expected, contact Release of Information in the Health Information Management department at [phone] for further assistance in locating additional records.[facility] Allergies No Known Allergies Current Medications Prescription Sig. 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 Last Assessment & Plan: Resolving vh [...] Problems Problem Noted Date Resolved Date Sepsis ([facility]) 01/15/2016 01/17/2016 Severe sepsis ([facility]) 01/15/2016 01/17/2016 LATISHA (acute kidney injury) ([facility]) 01/15/2016 01/17/2016 High anion gap metabolic acidosis 01/15/2016 01/17/2016 Family History Medical History Relation Name Comments Coronary Artery Disease Father Hypertension Father Diabetes Maternal Aunt Diabetes Maternal Uncle Coronary Artery Disease Mother Hypertension Mother Diabetes Paternal Aunt Relation Name Status Comments Father Maternal Aunt Maternal Uncle Mother Paternal Aunt Social History Tobacco Use Types Packs/Day Years Used Date Former Smoker Cigars 2 20 Quit: 10/20/2011 Smokeless Tobacco: Never Used Alcohol Use Drinks/Week oz/Week Comments No Sex Assigned at Date Recorded Not on file Last Filed Vital Signs Vital Sign Reading Time Taken Blood Pressure 154/68 01/17/2016 8:39 AM CDT Pulse 62 01/16/2016 7:00 PM CDT Temperature 36.7 C (98.1 F) 01/17/2016 8:39 AM CDT Respiratory Rate - - Oxygen Saturation 98% 01/17/2016 8:39 AM CDT Inhaled Oxygen - - Concentration Weight 68 kg (150 lb) 06/24/2014 2:05 PM CDT Height 167.6 cm (5' 6") 06/24/2014 2:05 PM CDT Body Mass Index 24.21 06/24/2014 2:05 PM CDT Plan of Treatment Health Maintenance Due Date Last Done Comments HEPATITIS C SCREENING 1958 PHYSICAL (COMPREHENSIVE) 1965 EXAM PERTUSSIS VACCINE 1969 TETANUS VACCINE 1975 COLORECTAL CANCER 2008 SCREENING INFLUENZA VACCINE 06/20/2017 Results Not on filefrom Last 3 Months
[2017-06-26] MEDS ORDERED: DEXTROSE 10% IV SOLUTION 1,000 ML IV ONE (02:16)
[2017-06-26] MEDS ORDERED: 1/2 NS W/KCL 20 MEQ/L 1,000 ML IV ONE (02:16)
[2017-06-26] MEDS ORDERED: 1/2 NS IV SOLUTION 1,000 ML IV ONE (02:16)
[2017-06-26] MEDS ORDERED: D5 1/2 NS 1000 ML IV SOLUTION 1,000 ML IV ONE (02:17)
[2017-06-26 02:20] LABS: BASOPHILS % (AUTO) 0 % (0-10); EOSINOPHILS % (AUTO) 0 % (0-10); LYMPHOCYTES # (AUTO) 2.1 X 10^3 (1.0-4.0); LYMPHOCYTES % (AUTO) 6 % (12-44); MEAN CORPUSCULAR HEMOGLOBIN 29 PG (25-34); MEAN CORPUSCULAR HGB CONC 34 G/DL (32-36); MEAN CORPUSCULAR VOLUME 85 FL (80-99); MONOCYTES # (AUTO) 3.3 X 10^3 (0.0-1.0); MONOCYTES % (AUTO) 10 % (0-12); NEUTROPHILS # (AUTO) 29.1 X 10^3 (1.8-7.8); NEUTROPHILS % (AUTO) 84 % (42-75); PLATELET COUNT 440 10^3/uL (130-400); RED BLOOD COUNT 3.62 10^6/uL (4.35-5.85); RED CELL DISTRIBUTION WIDTH 13.3 % (10.0-14.5)
[2017-06-26] MEDS ORDERED: NORMAL SALINE 250 ML ONE (02:21)
[2017-06-26] MEDS ORDERED: inSUlin (REGULAR) HUMAN 1 UNIT/0.01 ML (CHARGE PER UNIT) ONE (02:23)
[2017-06-26 02:24] LABS: BILIRUBIN,URINE NEGATIVE (NEGATIVE); KETONES,URINE 4+ (NEGATIVE); LEUKOCYTE ESTERASE ,URINE 1+ (NEGATIVE); NITRITE,URINE NEGATIVE (NEGATIVE); PH,URINE 5 (5-9); PROTEIN,URINE 3+ (NEGATIVE); UROBILINOGEN,URINE NORMAL (NORMAL)
[2017-06-26 02:25] LABS: WHITE BLOOD COUNT 34.5 10^3/uL (4.3-11.0)
[2017-06-26 02:42] LABS: CALCIUM 9.7 MG/DL (8.5-10.1); CREATININE SERUM 2.63 MG/DL (0.60-1.30); POTASSIUM 3.9 MMOL/L (3.6-5.0)
[2017-06-26 02:43] LABS: WBC,URINE RARE /HPF
[2017-06-26] MEDS ORDERED: REGULAR inSUlin DRIP 250 UNITS/NS 250 ML IV SCH ×2 (02:45)
[2017-06-26] MEDS: D5 1/2 NS W/KCL 20 MEQ/L 1,000 ML IV SCH ×2 (02:45→07:58)
[2017-06-26] MEDS ORDERED: NS IV 1000 ML X 1 WIDE OPEN IV ONE (02:45)
[2017-06-26 04:25] LABS: BASOPHILS % (AUTO) 0 % (0-10); EOSINOPHILS % (AUTO) 0 % (0-10); LYMPHOCYTES # (AUTO) 1.4 X 10^3 (1.0-4.0); LYMPHOCYTES % (AUTO) 5 % (12-44); MEAN CORPUSCULAR HEMOGLOBIN 30 PG (25-34); MEAN CORPUSCULAR HGB CONC 35 G/DL (32-36); MEAN CORPUSCULAR VOLUME 86 FL (80-99); MEAN PLATELET VOLUME 11.1 FL (7.4-10.4); MONOCYTES # (AUTO) 1.7 X 10^3 (0.0-1.0); MONOCYTES % (AUTO) 6 % (0-12); NEUTROPHILS # (AUTO) 27.4 X 10^3 (1.8-7.8); NEUTROPHILS % (AUTO) 90 % (42-75); PLATELET COUNT 397 10^3/uL (130-400); RED BLOOD COUNT 3.45 10^6/uL (4.35-5.85); RED CELL DISTRIBUTION WIDTH 13.3 % (10.0-14.5)
[2017-06-26 04:37] LABS: WHITE BLOOD COUNT 30.5 10^3/uL (4.3-11.0)
[2017-06-26 04:50] LABS: CALCIUM 9.1 MG/DL (8.5-10.1); CREATININE SERUM 2.54 MG/DL (0.60-1.30); MAGNESIUM 1.8 MG/DL (1.8-2.4); PHOSPHORUS 2.1 MG/DL (2.3-4.7); POTASSIUM 3.8 MMOL/L (3.6-5.0)
[2017-06-26] MEDS: POTASSIUM CL 10MEQ/50ML IVPB 50 ML IV SCH (05:15)
[2017-06-26] MEDS: 1/2 NS W/KCL 20 MEQ/L 1,000 ML IV SCH ×2 (05:31→07:03)
[2017-06-26] MEDS: KCL 20 MEQ TAB (K-DUR) PO SCH (05:32)
[2017-06-26] MEDS: MAGNESIUM 1 GM/100 ML IVPB 100 ML IV SCH (05:32)
[2017-06-26] MEDS: 1/2 NS IV SOLUTION 1,000 ML IV SCH ×2 (05:33→07:03)
[2017-06-26] MEDS: D5 1/2 NS IV 1,000 ML IV SCH ×2 (05:33→07:03)
[2017-06-26] MEDS: DEXTROSE 10% IV SOLUTION 1,000 ML IV SCH ×2 (05:33→09:27)
[2017-06-26] MEDS: POTASSIUM CL 10MEQ/50ML IVPB X 4 (TOTAL 40 MEQ) IV SCH ×4 (05:34→09:00)
--- NOTE | 2017-06-26 06:17 | Diagnostic Imaging Report ---
EXAM: CHEST 1 VIEW, AP/PA ONLY INDICATION: Glucose problems. COMPARISON: Chest radiograph 01/15/2016. FINDINGS: Normal heart size and pulmonary vascularity. No focal pulmonary opacity, pleural effusion or pneumothorax. No acute osseous findings. No significant change. IMPRESSION: Negative chest. Dictated by: Dictated on workstation # [id number]
[2017-06-26 07:56] LABS: CREATININE SERUM 2.22 MG/DL (0.60-1.30); POTASSIUM 3.7 MMOL/L (3.6-5.0)
--- NOTE | 2017-06-26 11:30 | Occ Therapy Progress Note ---
Therapy Progress Note OT order received. Chart reviewed. Checked with nurse. Pt. confused. Nursing states pt. not appropriate at this time for therapy due to significant confusion. Will continue to monitor as ptMercedes olsen. 1, visit [address] OT Jun 26, 2017 11:30
[2017-06-26] MEDS ORDERED: DORZ10DR24 OU (13:09)
[2017-06-26] MEDS ORDERED: INSU100I14 SQ (13:09)
[2017-06-26] MEDS ORDERED: FOLI1TAB24 PO (13:09)
[2017-06-26] MEDS ORDERED: PRED5DRO17 OP (13:09)
[2017-06-26] MEDS ORDERED: FERR-74 PO (13:09)
[2017-06-26] MEDS ORDERED: ATOR80TA76 PO (13:09)
[2017-06-26] MEDS ORDERED: OXYB5TAB9 PO (13:09)
[2017-06-26] MEDS ORDERED: MOXI3DRO11 OP (13:09)
[2017-06-26] MEDS ORDERED: CHOL10007 PO (13:09)
[2017-06-26] MEDS ORDERED: PANT20TA2 PO (13:09)
[2017-06-26] MEDS ORDERED: PLTR10OP OP (13:09)
[2017-06-26] MEDS ORDERED: CNC1KV IJ (13:09)
[2017-06-26] MEDS ORDERED: PREG100C PO (13:09)
[2017-06-26] MEDS ORDERED: DULO30CA48 PO (13:09)
[2017-06-26] MEDS ORDERED: UREA85CR23 TP (13:48)
[2017-06-26] MEDS ORDERED: DEXT4TAB PO (13:48)
[2017-06-26] MEDS ORDERED: inSUlin DETERMIR 1 UNIT/0.01 ML (LEVEMIR) CHARGE PER UNIT SQ NR ×2 (16:15→17:45)
--- NOTE | 2017-06-26 16:24 | CONSULTATION REPORT ---
DATE OF SERVICE: 06/26/2017 ATTENDING PHYSICIAN: Dr. Ashley Chapman. SUMMARY: After reviewing the patient's records in the hospital in my office, this is a 56-year-old insulin-dependent diabetic noncompliant. I had seen him last year in the Emergency Room with the same scenario and scoped him. He had severe bladder neck contracture. He was transferred to [facility] where they had dealt medically with him, as well as urologically. The bladder neck contracture was dilated and a small catheter was placed so that he could followup with me or with the [place] urologist that did his surgery. He did not show up in my office. I do not know where he went. Apparently, this is a [place], what they did, I do not know. He is not formulating anything formation avitia and his is not too sure what they did. He has his sports marketing specialist also at the [facility]. He is being admitted with the same problem, sepsis, ketoacidosis, acute renal failure and inability to insert the Dawson catheter. We did a bladder scan. Postvoid residual was only 50 mL so he is emptying his bladder. IMPRESSION: Severe bladder neck contracture with acute renal failure and sepsis with diabetic ketoacidosis. RECOMMENDATIONS: Transfer to [facility] where all services needed are available. If I start dilating the stricture at bedside and run into problems the patient is not a candidate for general anesthetic at this point at all. Job ID: [id number] DocumentID: [id number] Dictated Date: 06/26/2017 11:31:23 Certified Hearing Instrument Dispenser Date: 06/26/2017 11:49:27 Dictated By: BARBARA LEMUS MD
[2017-06-26] MEDS: NS IV 1000 ML 1,000 ML IV SCH (16:44)
[2017-06-26 17:28] LABS: BASOPHILS % (AUTO) 0 % (0-10); EOSINOPHILS % (AUTO) 0 % (0-10); LYMPHOCYTES # (AUTO) 1.6 X 10^3 (1.0-4.0); LYMPHOCYTES % (AUTO) 5 % (12-44); MEAN CORPUSCULAR HEMOGLOBIN 30 PG (25-34); MEAN CORPUSCULAR HGB CONC 35 G/DL (32-36); MEAN CORPUSCULAR VOLUME 87 FL (80-99); MEAN PLATELET VOLUME 10.8 FL (7.4-10.4); MONOCYTES % (AUTO) 9 % (0-12); NEUTROPHILS # (AUTO) 29.4 X 10^3 (1.8-7.8); NEUTROPHILS % (AUTO) 87 % (42-75); PLATELET COUNT 335 10^3/uL (130-400); RED CELL DISTRIBUTION WIDTH 13.6 % (10.0-14.5)
[2017-06-26 17:31] LABS: WHITE BLOOD COUNT 33.9 10^3/uL (4.3-11.0)
[2017-06-26 17:44] LABS: CALCIUM 8.9 MG/DL (8.5-10.1); CREATININE SERUM 1.72 MG/DL (0.60-1.30); POTASSIUM 3.5 MMOL/L (3.6-5.0)
[2017-06-26] MEDS: inSUlin (REGULAR) HUMAN 1 UNIT/0.01 ML (CHARGE PER UNIT) SC SCH (18:52)
[2017-06-27] VITALS (24 sets, daily range): BP systolic 134–184; BP diastolic 57–103
[2017-06-27] MEDS: NS IV 1000 ML 1,000 ML IV SCH ×2 (02:22→23:12)
[2017-06-27 05:10] LABS: BASOPHILS % (AUTO) 0 % (0-10); EOSINOPHILS % (AUTO) 0 % (0-10); LYMPHOCYTES # (AUTO) 1.9 X 10^3 (1.0-4.0); LYMPHOCYTES % (AUTO) 8 % (12-44); MEAN CORPUSCULAR HEMOGLOBIN 30 PG (25-34); MEAN CORPUSCULAR HGB CONC 35 G/DL (32-36); MEAN CORPUSCULAR VOLUME 86 FL (80-99); MEAN PLATELET VOLUME 11.1 FL (7.4-10.4); MONOCYTES % (AUTO) 8 % (0-12); NEUTROPHILS # (AUTO) 21.3 X 10^3 (1.8-7.8); NEUTROPHILS % (AUTO) 85 % (42-75); PLATELET COUNT 342 10^3/uL (130-400); RED BLOOD COUNT 3.38 10^6/uL (4.35-5.85); RED CELL DISTRIBUTION WIDTH 13.9 % (10.0-14.5); WHITE BLOOD COUNT 25.3 10^3/uL (4.3-11.0)
[2017-06-27 05:33] LABS: CALCIUM 8.8 MG/DL (8.5-10.1); CREATININE SERUM 1.24 MG/DL (0.60-1.30); MAGNESIUM 1.7 MG/DL (1.8-2.4); PHOSPHORUS 1.7 MG/DL (2.3-4.7); POTASSIUM 3.1 MMOL/L (3.6-5.0)
[2017-06-27] MEDS: MAGNESIUM 1 GM/100 ML IVPB 100 ML IV SCH ×3 (06:00→07:05)
[2017-06-27] MEDS: POTASSIUM CL 10MEQ/50ML IVPB 50 ML IV SCH ×5 (06:00→09:22)
[2017-06-27] MEDS: KCL 20 MEQ TAB (K-DUR) PO SCH (06:00)
[2017-06-27] MEDS: inSUlin (REGULAR) HUMAN 1 UNIT/0.01 ML (CHARGE PER UNIT) SC SCH ×2 (06:37)
--- NOTE | 2017-06-27 08:31 | Diagnostic Imaging Report ---
Portable erect AP chest at 5:08 AM. INDICATION: Acute renal failure. The heart size is within normal limits and stable when compared to 06/25/2017. The lungs remain clear. There is still no sign of failure, pneumonia, or pleural effusion to suggest an acute abnormality. The mediastinum is not widened. The osseous structures are intact. IMPRESSION: Stable chest. There has been no adverse change since the prior exam. Dictated by: Dictated on workstation # [id number]
--- NOTE | 2017-06-27 08:56 | Progress Note-Urology ---
Progress Note-Urology Progress Notes/Assess & Plan Progress/Assessment & Plan SOME IMPROVEMENT. CREATININE NL. ABLE TO MONITOR URINE OUTPUT BETTER. [facility] COULD NOT ACCEPT TRANSFER. LATER ON, NEEDS TO SEE THEM TO TREAT BNC. Final Diagnosis BLADDER NECK CONTRACTURE BARBARA LEMUS MD Jun 27, 2017 08:55
--- NOTE | 2017-06-27 09:42 | Pulmonary Consultation ---
History of Present Illness History of Present Illness Date of Consultation 06/27/17 09:36 Time Seen by Provider: 09:36 Date of Admission History of Present Illness 56 yo presented to ED secondary to MS changes and vomiting that had been present for 24hrs prior to admission. Confusion had been progressive since time of onset. PT was found to be in DKA and was admitted to ICU and placed on DKA protocol. Allergies and Home Medications Allergies Coded Allergies: No Known Drug Allergies (Unverified , 08/24/13) Home Medications Atorvastatin Calcium 80 Mg Tablet, 40 MG PO HS, (Reported) TAKES 1/2 (80MG) TABLET Brimonidine Tartrate 5 Ml Btl, 1 DROP OU BID, (Reported) Bupropion HCl 75 Mg Tablet, 75 MG PO BID, (Reported) Cholecalciferol (Vitamin D3) 1,000 Unit Capsule, 1,000 UNIT PO DAILY, (Reported) Cyanocobalamin 1,000 Mcg/Ml Inj, 1,000 MCG IJ EVERY 2 WEEKS, (Reported) Dextrose 4 Gm Tab.chew, 16 GM PO UD PRN for HYPOGLYCEMIA, (Reported) CHEW 4 (4GM) TABLETS NEEDED FOR LOW BLOOD SUGAR, REPEAT DOSE IN 15 MINUTES AFTER FIRST DOSE IF HYPOGLYCEMIA CONTINUES Dorzolamide HCl/Timolol Maleat 10 Ml Drops, 1 DROP OU BID, (Reported) Duloxetine HCl 30 Mg Capsule.dr, 90 MG PO DAILY, (Reported) TAKES 3 (30MG) CAPSULES Ferrous Sulfate 325 Mg Tablet, 325 MG PO TID, (Reported) Folic Acid 1 Mg Tablet, 1 MG PO DAILY, (Reported) Insulin Aspart 300 Units/3 Ml Solution, 11 UNITS SQ BEFORE BREAKFAST, (Reported) Insulin Aspart 300 Units/3 Ml Solution, 13 UNITS SQ BEFORE LUNCH+SUPPER, ( Reported) Insulin Detemir 100 Unit/1 Ml Insuln.pen, 27 UNITS SQ HS, (Reported) Oxybutynin Chloride 5 Mg Tablet, 5 MG PO BID, (Reported) Pantoprazole Sodium 20 Mg Tablet.dr, 20 MG PO DAILY, (Reported) Pregabalin 100 Mg Capsule, 100 MG PO TID, (Reported) Trazodone HCl 50 Mg Tablet, 150 MG PO HS, (Reported) TAKES 3 (50MG) TABLETS Urea 85 Gm Cream..g., TP BID PRN for SORES, (Reported) Past [id number] Hx Patient Social History Alcohol Use: Denies Use Recreational Drug Use: No Smoking Status: Former Smoker Former Smoker, Quit: Oct 20, 2014 2nd Hand Smoke Exposure: No Recent Foreign Travel: No Contact w/Someone Who Travel: No Recent Infectious Disease Expo: No Recent Hopitalizations: No Immunizations Up To Date Tetanus Booster (TDap): Less than 5yrs PED Vaccines UTD: No Date of Pneumonia Vaccine: Jul 17, 2015 Date of Influenza Vaccine: Jul 17, 2015 Seasonal Allergies Seasonal Allergies: No Surgeries History of Surgeries: Yes (HEART CATH/ JAW SURGERY) Surgeries: Cardiac, Prostatectomy Respiratory History of Respiratory Disorde: No (boris coates) Currently Using CPAP: No Currently Using BIPAP: No Cardiovascular History of Cardiac Disorders: Yes (heart cath) Cardiac Disorders: High Cholesterol, Hypertension Neurological History of Neurological Disord: Yes Neurological Disorders: Neuropathy Reproductive System Hx Reproductive Disorders: No Sexually Transmitted Disease: No HIV/AIDS: No Genitourinary Genitourinary Disorders: Prostate Problems Gastrointestinal History of Gastrointestinal Di: Yes Gastrointestinal Disorders: Chronic Diarrhea, C-Diff Musculoskeletal History of Musculoskeletal Dis: Yes (CHRONIC NECK AND BACK PAIN ) Musculoskeletal Disorders: Arthritis, Chronic Back Pain Endocrine History of Endocrine Disorders: Yes Endocrine Disorders: Diabetes, Insulin dep HEENT HEENT Disorders: Glaucoma Loss of Vision: Right Cancer History of Cancer: Yes Cancer: Prostate Type of Tx Receive: Surgical Intervention Psychosocial History of Psychiatric Problem: Yes Behavioral Health Disorders: Anxiety, Depression Integumentary History of Skin or Integumenta: No Blood Transfusions History of Blood Disorders: No Adverse Reaction to a Blood Tr: No Reviewed Nursing Assessment Reviewed/Agree w Nursing PMH: Yes Family Medical History Family Medial History: Family history: Hypertension 03 FATHER, Onset:40's - 50 03 MOTHER, Onset:40's - 50 History of - respiratory disease 03 MOTHER, Onset:50's - 60 Myocardial infarction 03 FATHER 03 MOTHER No Family History of: Abdominal aortic aneurysm [place]'s disease Alcoholism Aphasia Cancer Cancer of colon Cataract Chest pain Congenital heart disease Congestive heart failure Cystic fibrosis Dementia Dysphagia Family history: Allergy Family history: Alzheimer's disease Family history: Arthritis Family history: Asthma Family history: Breast disease Family history: Cardiovascular disease Family history: Coronary thrombosis Family history: Diabetes mellitus Family history: Gastrointestinal disease Family history: Glaucoma Family history: Osteoporosis Family history: Thyroid disorder Headache Hearing loss Heart disease Hereditary disease History of - anemia History of - disorder History of drug abuse Human immunodeficiency virus (HIV) seropositivity Hypercholesterolemia Infertile Kidney disease Malignant neoplasm of lung Parkinson's disease Prostate cancer Psychotic disorder Seizure disorder Stroke Tuberculosis Visual impairment Exam Exam Vital Signs Date Time Temp Pulse Resp B/P (MAP) Pulse Ox O2 Delivery O2 Flow Rate FiO2 06/27/17 08:00 Room Air 06/27/17 07:30 97.6 83 26 184/64 98 Room Air 06/27/17 06:00 72 26 154/57 97 Room Air 06/27/17 05:00 94 15 163/85 99 Room Air 06/27/17 04:00 97.5 93 19 143/66 98 Room Air 06/27/17 04:00 98 Room Air 06/27/17 03:00 85 13 145/64 97 Room Air 06/27/17 02:00 80 26 175/76 97 Room Air 06/27/17 01:00 88 06/27/17 01:00 88 10 158/71 98 Room Air 06/27/17 00:00 98 Room Air 06/27/17 00:00 98.7 85 18 161/64 97 Room Air 06/26/17 23:00 109 149/114 94 Room Air 06/26/17 22:00 93 179/78 98 Room Air 06/26/17 21:00 75 171/81 94 Room Air 06/26/17 20:00 98 Room Air 06/26/17 20:00 98.0 86 8 156/71 97 Room Air 06/26/17 19:34 98 Room Air 06/26/17 19:00 81 23 166/69 97 Room Air 06/26/17 19:00 81 06/26/17 18:00 109 17 186/89 98 Room Air 06/26/17 17:00 78 25 145/67 97 Room Air 06/26/17 16:44 Room Air 06/26/17 16:00 79 9 145/74 98 Room Air 06/26/17 15:19 98.4 06/26/17 15:00 81 12 145/82 98 Room Air 06/26/17 14:00 74 25 155/74 96 Room Air 06/26/17 13:00 86 06/26/17 13:00 111 16 147/63 99 Room Air 06/26/17 12:54 Room Air 06/26/17 12:54 98.2 06/26/17 12:00 72 24 155/64 98 Room Air 06/26/17 11:26 96 Room Air 06/26/17 11:00 73 24 123/51 96 Room Air 06/26/17 10:00 108 20 151/82 98 Room Air I & O 06/28/17 07:00 Intake Total 195 ml Balance 195 ml General Appearance: Moderate Distress (weakness and altered), Thin HEENT: Other (right eye blind with pupil dilation that is typical per family member. Dry mucous membranes with dark substance on tongue and within mouth) Neck: Non Tender, Supple Respiratory: Lungs Clear, Normal Breath Sounds Cardiovascular: No Murmur, Tachycardia Capillary Refill: Less Than 3 Seconds Extremity: Normal Range of Motion, Non Tender Neurologic/Psychiatric: Disoriented x3, Other (awake but disoriented 3. Follows some commands.) Skin: Cool, Pallor Results Lab Laboratory Tests 06/25/17 23:13 06/26/17 02:09 06/26/17 04:17 06/26/17 07:28 06/26/17 17:05 06/27/17 04:30 Assessment/Plan Assessment/Plan DKA -initially treated for successfully for DKA and insulin gtt was D/C'd however now pt is once again developing an anion gap metabolic acidosis -Restart DKA protocol -Continue to montor -check UA for ketones MS changes - improved -cont to monitor -PT has leukocytosis but no fever. At this time it would be unsafe to do lumbar puncture. Will proceed with 2gms Rocephin and vanco -repeat blood cultures electrolyte disturbance -replace Psychosis -Haldol 2mg IV Q 6 PRN Clinical Quality Measures DVT/VTE Risk/Contraindication: Risk Factor Score Per Nursin RFS Level Per Nursing on Admit: 4+=Very High APARNA VAZQUEZ DO Jun 27, 2017 09:42
[2017-06-27] MEDS: DEXTROSE 10% IV SOLUTION 1,000 ML IV SCH ×2 (09:52→16:43)
[2017-06-27] MEDS: D5 1/2 NS W/KCL 20 MEQ/L 1,000 ML IV SCH ×4 (09:52→22:08)
[2017-06-27] MEDS: 1/2 NS IV SOLUTION 1,000 ML IV SCH ×4 (09:52→22:08)
[2017-06-27] MEDS ORDERED: D5 1/2 NS 1000 ML IV SOLUTION 1,000 ML IV SCH (10:00)
[2017-06-27] MEDS ORDERED: inSUlin REGULAR TPN/DRIP ONLY 250 UNITS in NORMAL SALINE 250 ML IV SCH (10:00)
[2017-06-27] MEDS ORDERED: VANCOMYCIN INJECTION 1,250 MG in NS (IVPB) 250 ML IV NR (10:09)
--- NOTE | 2017-06-27 10:31 | History & Physicial (CHS) ---
HPI History of Present Illness: This is an abbreviated H&P due to patient's clinical condition and absence of family.. 56yo male presented to hospital with acute mental status changes and vomiting. In ER, he was found to have DKA and acute renal failure. Per nursing, he has had a radical prostatectomy, and they cannot get a johnson catheter in. Patient typically follows with the [facility] in [place] as well as [facility] in [place]. He has been hospitalized at the [facility] in [place] multiple times. Here in our ICU, Shaheed is totally disoriented and somewhat combative. He is moving in his bed and all he can say is "O God." He does localize to pain but cannot say his name. Source: patient Exam Limitations: clinical condition Date seen by provider: Jun 26, 2017 Time Seen by Provider: 10:00 Attending Physician Leo Lomeli MD PCP [facility] [place] Date of Admission Jun 26, 2017 at 12:06 am Home Medications Home Medications Reviewed patient Home Medication Reconciliation Form Allergies Coded Allergies: No Known Drug Allergies (Unverified , 08/24/13) IEP-[id number] Hx Patient Social History Alcohol Use: Denies Use Recreational Drug Use: No Smoking Status: Former Smoker 2nd Hand Smoke Exposure: No Recent Foreign Travel: No Contact w/other who traveled: No Recent Hopitalizations: No Recent Infectious Disease Expo: No Sexual Abuse: No (pt is unable to answer) Immunizations Up To Date Tetanus Booster (TDap): Less than 5yrs Date of Pneumonia Vaccine: Jul 17, 2015 Date of Influenza Vaccine: Jul 17, 2015 Past Medical History Past Medical History 1. Diabetes Mellitus- II 2. Diabetic Neuropathy 3. History of Diabetic Gastroparesis 4. GERD with grade C gastritis and esophagitis, small hiatal hernia EGD 09/01 [facility] 5. Blindness in right eye due to diabetic retinopathy with increasing blindness in left eye, recommend continue with river [facility] 7. Prostate Cancer sp prostatectomy 07/04 8. Depression 9. C-diff after prostatectomy 07/04 Past Surgical History 1. "Jaw Surgery" unknown surgery and date 2. Heart Cath- no known coronary artery disease 3. Suprapubic Prostatectomy 07/04 4. EGD 09/01 [facility] Family Medical History Family History: Family history: Hypertension 03 FATHER, Onset:40's - 50 03 MOTHER, Onset:40's - 50 History of - respiratory disease 03 MOTHER, Onset:50's - 60 Myocardial infarction 03 FATHER 03 MOTHER No Family History of: Abdominal aortic aneurysm Farwell's disease Alcoholism Aphasia Cancer Cancer of colon Cataract Chest pain Congenital heart disease Congestive heart failure Cystic fibrosis Dementia Dysphagia Family history: Allergy Family history: Alzheimer's disease Family history: Arthritis Family history: Asthma Family history: Breast disease Family history: Cardiovascular disease Family history: Coronary thrombosis Family history: Diabetes mellitus Family history: Gastrointestinal disease Family history: Glaucoma Family history: Osteoporosis Family history: Thyroid disorder Headache Hearing loss Heart disease Hereditary disease History of - anemia History of - disorder History of drug abuse Human immunodeficiency virus (HIV) seropositivity Hypercholesterolemia Infertile Kidney disease Malignant neoplasm of lung Parkinson's disease Prostate cancer Psychotic disorder Seizure disorder Stroke Tuberculosis Visual impairment Review of Systems (CHC) Constitutional: no symptoms reported All Other Systems Reviewed Negative Unless Noted: Yes (Negative excepted noted.) Reviewed Test Results Reviewed Test Results Lab Laboratory Tests Test 06/25/17 23:13 06/25/17 23:18 06/25/17 23:19 06/26/17 01:08 Range/Units White Blood Count 31.6 *H 4.3-11.0 10^3/uL Red Blood Count 4.20 L 4.35-5.85 10^6/uL Hemoglobin 12.3 L 13.3-17.7 G/DL Hematocrit 36 L 40-54 % Mean Corpuscular Volume 86 80-99 FL Mean Corpuscular Hemoglobin 29 25-34 PG Mean Corpuscular Hemoglobin Concent 34 32-36 G/DL Red Cell Distribution Width 13.4 10.0-14.5 % Platelet Count 507 H 130-400 10^3/uL Mean Platelet Volume 11.4 H 7.4-10.4 FL Neutrophils (%) (Auto) 91 H 42-75 % Lymphocytes (%) (Auto) 5 L 12-44 % Monocytes (%) (Auto) 5 0-12 % Eosinophils (%) (Auto) 0 0-10 % Basophils (%) (Auto) 0 0-10 % Neutrophils # (Auto) 28.6 H 1.8-7.8 X 10^3 Lymphocytes # (Auto) 1.4 1.0-4.0 X 10^3 Monocytes # (Auto) 1.5 H 0.0-1.0 X 10^3 Eosinophils # (Auto) 0.0 0.0-0.3 10^3/uL Basophils # (Auto) 0.0 0.0-0.1 10^3/uL Neutrophils % (Manual) 91 % Lymphocytes % (Manual) 5 % Monocytes % (Manual) 3 % Band Neutrophils 1 % Blood Morphology Comment NORMAL Prothrombin Time 13.3 12.2-14.7 SEC INR Comment 1.0 0.8-1.4 Activated Partial Thromboplast Time 23 L 24-35 SEC Sodium Level 141 135-145 MMOL/L Potassium Level 4.3 3.6-5.0 MMOL/L Chloride Level 91 L 98-107 MMOL/L Carbon Dioxide Level 7 *L 21-32 MMOL/L Anion Gap 43 H 5-14 MMOL/L Blood Urea Nitrogen 37 H 7-18 MG/DL Creatinine 3.13 H 0.60-1.30 MG/DL Estimat Glomerular Filtration Rate 21 BUN/Creatinine Ratio 12 Glucose Level 707 *H 70-105 MG/DL Lactic Acid Level 5.15 *H 0.50-2.00 MMOL/L Calcium Level 10.8 H 8.5-10.1 MG/DL Phosphorus Level 7.3 H 2.3-4.7 MG/DL Magnesium Level 2.3 1.8-2.4 MG/DL Total Bilirubin 1.0 0.1-1.0 MG/DL Aspartate Amino Transf (AST/SGOT) 17 5-34 U/L Alanine Aminotransferase (ALT/SGPT) 20 0-55 U/L Alkaline Phosphatase 200 H 40-136 U/L Troponin I < 0.30 <0.30 NG/ML C-Reactive Protein High Sensitivity 3.63 H 0.00-0.50 MG/DL Total Protein 8.4 H 6.4-8.2 GM/DL Albumin 4.6 H 3.2-4.5 GM/DL Glucometer > 600 *H 272 H 70-110 MG/DL Blood Gas Puncture Site LEFT RADIAL Blood Gas Patient Temperature 97.2 Arterial Blood pH 7.32 *L 7.37-7.43 Arterial Blood Partial Pressure CO2 12 *L 35-45 MMHG Arterial Blood Partial Pressure O2 170 H 79-93 MMHG Arterial Blood HCO3 6 *L 23-27 MMOL/L Arterial Blood Total CO2 6.6 L 21.0-31.0 MMOL/L Arterial Blood Oxygen Saturation 98 94-100 % Arterial Blood Base Excess -19.5 L -2.5-2.5 MMOL/L Leroy Test YES-POS Blood Gas Ventilator Setting NO Blood Gas Inspired Oxygen ROOM AIR Test 06/26/17 01:48 06/26/17 02:09 06/26/17 02:10 06/26/17 02:50 Range/Units Glucometer 320 H 340 H 70-110 MG/DL White Blood Count 34.5 *H 4.3-11.0 10^3/uL Red Blood Count 3.62 L 4.35-5.85 10^6/uL Hemoglobin 10.6 L 13.3-17.7 G/DL Hematocrit 31 L 40-54 % Mean Corpuscular Volume 85 80-99 FL Mean Corpuscular Hemoglobin 29 25-34 PG Mean Corpuscular Hemoglobin Concent 34 32-36 G/DL Red Cell Distribution Width 13.3 10.0-14.5 % Platelet Count 440 H 130-400 10^3/uL Mean Platelet Volume 11.0 H 7.4-10.4 FL Neutrophils (%) (Auto) 84 H 42-75 % Lymphocytes (%) (Auto) 6 L 12-44 % Monocytes (%) (Auto) 10 0-12 % Eosinophils (%) (Auto) 0 0-10 % Basophils (%) (Auto) 0 0-10 % Neutrophils # (Auto) 29.1 H 1.8-7.8 X 10^3 Lymphocytes # (Auto) 2.1 1.0-4.0 X 10^3 Monocytes # (Auto) 3.3 H 0.0-1.0 X 10^3 Eosinophils # (Auto) 0.0 0.0-0.3 10^3/uL Basophils # (Auto) 0.0 0.0-0.1 10^3/uL Sodium Level 147 H 135-145 MMOL/L Potassium Level 3.9 3.6-5.0 MMOL/L Chloride Level 104 98-107 MMOL/L Carbon Dioxide Level 13 L 21-32 MMOL/L Anion Gap 30 H 5-14 MMOL/L Blood Urea Nitrogen 40 H 7-18 MG/DL Creatinine 2.63 #H 0.60-1.30 MG/DL Estimat Glomerular Filtration Rate 25 BUN/Creatinine Ratio 15 Glucose Level 315 H 70-105 MG/DL Hemoglobin A1c 10.0 H 4.5-6.2 % Lactic Acid Level 4.40 *H 0.50-2.00 MMOL/L Calcium Level 9.7 8.5-10.1 MG/DL Urine Color YELLOW Urine Clarity CLEAR Urine pH 5 5-9 Urine Specific Mcallister 1.020 1.016-1.022 Urine Protein 3+ H NEGATIVE Urine Glucose (UA) 4+ H NEGATIVE Urine Ketones 4+ H NEGATIVE Urine Nitrite NEGATIVE NEGATIVE Urine Bilirubin NEGATIVE NEGATIVE Urine Urobilinogen NORMAL NORMAL MG/DL Urine Leukocyte Esterase 1+ H NEGATIVE Urine RBC (Auto) 4+ H NEGATIVE Urine RBC RARE /HPF Urine WBC RARE /HPF Urine Squamous Epithelial Cells 2-5 /HPF Urine Crystals NONE /LPF Urine Bacteria NEGATIVE /HPF Urine Casts NONE /LPF Urine Mucus SMALL H /LPF Urine Culture Indicated NO Urine Opiates Screen NEGATIVE NEGATIVE Urine Oxycodone Screen NEGATIVE NEGATIVE Urine Methadone Screen NEGATIVE NEGATIVE Urine Propoxyphene Screen NEGATIVE NEGATIVE Urine Barbiturates Screen NEGATIVE NEGATIVE Ur Tricyclic Antidepressants Screen NEGATIVE NEGATIVE Urine Phencyclidine Screen NEGATIVE NEGATIVE Urine Amphetamines Screen NEGATIVE NEGATIVE Urine Methamphetamines Screen NEGATIVE NEGATIVE Urine Benzodiazepines Screen NEGATIVE NEGATIVE Urine Cocaine Screen NEGATIVE NEGATIVE Urine Cannabinoids Screen POSITIVE H NEGATIVE Test 06/26/17 03:47 06/26/17 04:17 06/26/17 04:47 06/26/17 05:49 Range/Units Glucometer 305 H 313 H 244 H 70-110 MG/DL White Blood Count 30.5 *H 4.3-11.0 10^3/uL Red Blood Count 3.45 L 4.35-5.85 10^6/uL Hemoglobin 10.2 L 13.3-17.7 G/DL Hematocrit 30 L 40-54 % Mean Corpuscular Volume 86 80-99 FL Mean Corpuscular Hemoglobin 30 25-34 PG Mean Corpuscular Hemoglobin Concent 35 32-36 G/DL Red Cell Distribution Width 13.3 10.0-14.5 % Platelet Count 397 130-400 10^3/uL Mean Platelet Volume 11.1 H 7.4-10.4 FL Neutrophils (%) (Auto) 90 H 42-75 % Lymphocytes (%) (Auto) 5 L 12-44 % Monocytes (%) (Auto) 6 0-12 % Eosinophils (%) (Auto) 0 0-10 % Basophils (%) (Auto) 0 0-10 % Neutrophils # (Auto) 27.4 H 1.8-7.8 X 10^3 Lymphocytes # (Auto) 1.4 1.0-4.0 X 10^3 Monocytes # (Auto) 1.7 H 0.0-1.0 X 10^3 Eosinophils # (Auto) 0.0 0.0-0.3 10^3/uL Basophils # (Auto) 0.0 0.0-0.1 10^3/uL Sodium Level 144 135-145 MMOL/L Potassium Level 3.8 3.6-5.0 MMOL/L Chloride Level 106 98-107 MMOL/L Carbon Dioxide Level 14 L 21-32 MMOL/L Anion Gap 24 H 5-14 MMOL/L Blood Urea Nitrogen 45 H 7-18 MG/DL Creatinine 2.54 H 0.60-1.30 MG/DL Estimat Glomerular Filtration Rate 26 BUN/Creatinine Ratio 18 Glucose Level 327 H 70-105 MG/DL Calcium Level 9.1 8.5-10.1 MG/DL Phosphorus Level 2.1 L 2.3-4.7 MG/DL Magnesium Level 1.8 1.8-2.4 MG/DL Test 06/26/17 06:52 06/26/17 07:28 06/26/17 07:54 06/26/17 08:50 Range/Units Glucometer 186 H 153 H 121 H 70-110 MG/DL Sodium Level 143 135-145 MMOL/L Potassium Level 3.7 3.6-5.0 MMOL/L Chloride Level 108 H 98-107 MMOL/L Carbon Dioxide Level 20 L 21-32 MMOL/L Anion Gap 15 H 5-14 MMOL/L Blood Urea Nitrogen 46 H 7-18 MG/DL Creatinine 2.22 H 0.60-1.30 MG/DL Estimat Glomerular Filtration Rate 31 BUN/Creatinine Ratio 21 Glucose Level 180 H 70-105 MG/DL Lactic Acid Level 2.92 *H 0.50-2.00 MMOL/L Calcium Level 9.0 8.5-10.1 MG/DL Test 06/26/17 09:19 06/26/17 09:42 06/26/17 10:18 06/26/17 11:16 Range/Units Glucometer 138 H 150 H 129 H 70-110 MG/DL Lactic Acid Level 2.65 *H 0.50-2.00 MMOL/L Test 06/26/17 11:52 06/26/17 12:02 06/26/17 12:52 06/26/17 13:42 Range/Units Glucometer 148 H 153 H 146 H 70-110 MG/DL Lactic Acid Level 1.71 0.50-2.00 MMOL/L Ammonia 14 11-32 UMOL/L Test 06/26/17 14:12 06/26/17 14:16 06/26/17 15:08 06/26/17 15:45 Range/Units Lactic Acid Level 1.93 0.50-2.00 MMOL/L Glucometer 138 H 134 H 157 H 70-110 MG/DL Test 06/26/17 17:04 06/26/17 17:05 06/26/17 17:58 06/27/17 00:16 Range/Units Glucometer 224 H 213 H 102 70-110 MG/DL White Blood Count 33.9 *H 4.3-11.0 10^3/uL Red Blood Count 3.10 L 4.35-5.85 10^6/uL Hemoglobin 9.4 L 13.3-17.7 G/DL Hematocrit 27 L 40-54 % Mean Corpuscular Volume 87 80-99 FL Mean Corpuscular Hemoglobin 30 25-34 PG Mean Corpuscular Hemoglobin Concent 35 32-36 G/DL Red Cell Distribution Width 13.6 10.0-14.5 % Platelet Count 335 130-400 10^3/uL Mean Platelet Volume 10.8 H 7.4-10.4 FL Neutrophils (%) (Auto) 87 H 42-75 % Lymphocytes (%) (Auto) 5 L 12-44 % Monocytes (%) (Auto) 9 0-12 % Eosinophils (%) (Auto) 0 0-10 % Basophils (%) (Auto) 0 0-10 % Neutrophils # (Auto) 29.4 H 1.8-7.8 X 10^3 Lymphocytes # (Auto) 1.6 1.0-4.0 X 10^3 Monocytes # (Auto) 3.0 H 0.0-1.0 X 10^3 Eosinophils # (Auto) 0.0 0.0-0.3 10^3/uL Basophils # (Auto) 0.0 0.0-0.1 10^3/uL Sodium Level 141 135-145 MMOL/L Potassium Level 3.5 L 3.6-5.0 MMOL/L Chloride Level 106 98-107 MMOL/L Carbon Dioxide Level 23 21-32 MMOL/L Anion Gap 12 5-14 MMOL/L Blood Urea Nitrogen 35 H 7-18 MG/DL Creatinine 1.72 H 0.60-1.30 MG/DL Estimat Glomerular Filtration Rate 41 BUN/Creatinine Ratio 20 Glucose Level 211 H 70-105 MG/DL Calcium Level 8.9 8.5-10.1 MG/DL Test 06/27/17 04:30 06/27/17 09:39 Range/Units White Blood Count 25.3 H 4.3-11.0 10^3/uL Red Blood Count 3.38 L 4.35-5.85 10^6/uL Hemoglobin 10.0 L 13.3-17.7 G/DL Hematocrit 29 L 40-54 % Mean Corpuscular Volume 86 80-99 FL Mean Corpuscular Hemoglobin 30 25-34 PG Mean Corpuscular Hemoglobin Concent 35 32-36 G/DL Red Cell Distribution Width 13.9 10.0-14.5 % Platelet Count 342 130-400 10^3/uL Mean Platelet Volume 11.1 H 7.4-10.4 FL Neutrophils (%) (Auto) 85 H 42-75 % Lymphocytes (%) (Auto) 8 L 12-44 % Monocytes (%) (Auto) 8 0-12 % Eosinophils (%) (Auto) 0 0-10 % Basophils (%) (Auto) 0 0-10 % Neutrophils # (Auto) 21.3 H 1.8-7.8 X 10^3 Lymphocytes # (Auto) 1.9 1.0-4.0 X 10^3 Monocytes # (Auto) 2.0 H 0.0-1.0 X 10^3 Eosinophils # (Auto) 0.0 0.0-0.3 10^3/uL Basophils # (Auto) 0.0 0.0-0.1 10^3/uL Sodium Level 142 135-145 MMOL/L Potassium Level 3.1 L 3.6-5.0 MMOL/L Chloride Level 107 98-107 MMOL/L Carbon Dioxide Level 19 L 21-32 MMOL/L Anion Gap 16 H 5-14 MMOL/L Blood Urea Nitrogen 22 H 7-18 MG/DL Creatinine 1.24 0.60-1.30 MG/DL Estimat Glomerular Filtration Rate 60 BUN/Creatinine Ratio 18 Glucose Level 156 H 70-105 MG/DL Calcium Level 8.8 8.5-10.1 MG/DL Phosphorus Level 1.7 L 2.3-4.7 MG/DL Magnesium Level 1.7 L 1.8-2.4 MG/DL Glucometer 313 H 70-110 MG/DL Radiology Date of Exam: 06/25/17 CHEST 1 VIEW, AP/PA ONLY EXAM: CHEST 1 VIEW, AP/PA ONLY INDICATION: Glucose problems. COMPARISON: Chest radiograph 01/15/2016. FINDINGS: Normal heart size and pulmonary vascularity. No focal pulmonary opacity, pleural effusion or pneumothorax. No acute osseous findings. No significant change. IMPRESSION: Negative chest. Physical Exam-([facility]C) Physical Exam Vital Signs VS - Last 72 Hours, by Label 06/25/17 06/26/17 06/26/17 06/26/17 23:20 01:16 01:44 01:45 Temp 97.2 97.8 Pulse 133 120 122 124 Resp 26 28 25 B/P (MAP) 187/97 138/75 Pulse Ox 97 98 99 O2 Delivery Room Air Room Air Room Air 06/26/17 06/26/17 06/26/17 06/26/17 02:00 03:00 04:00 04:00 Pulse 129 101 133 Resp 20 30 15 B/P (MAP) 139/80 129/62 150/88 Pulse Ox 99 99 96 O2 Delivery Room Air Room Air Room Air Room Air 06/26/17 06/26/17 06/26/17 06/26/17 05:00 06:00 07:00 07:00 Pulse 123 85 86 102 Resp 18 10 15 B/P (MAP) 129/59 157/71 137/85 Pulse Ox 97 97 97 O2 Delivery Room Air Room Air Room Air 06/26/17 06/26/17 06/26/17 06/26/17 07:50 07:58 08:00 08:37 Temp 98.3 Pulse 101 Resp 9 B/P (MAP) 119/105 Pulse Ox 99 O2 Delivery Room Air Room Air Room Air 06/26/17 06/26/17 06/26/17 06/26/17 09:00 10:00 11:00 11:26 Pulse 80 108 73 Resp 23 20 24 B/P (MAP) 140/82 151/82 123/51 Pulse Ox 96 98 96 96 O2 Delivery Room Air Room Air Room Air Room Air 06/26/17 06/26/17 06/26/17 06/26/17 12:00 12:54 12:54 13:00 Temp 98.2 Pulse 72 111 Resp 24 16 B/P (MAP) 155/64 147/63 Pulse Ox 98 99 O2 Delivery Room Air Room Air Room Air 06/26/17 06/26/17 06/26/17 06/26/17 13:00 14:00 15:00 15:19 Temp 98.4 Pulse 86 74 81 Resp 25 12 B/P (MAP) 155/74 145/82 Pulse Ox 96 98 O2 Delivery Room Air Room Air 06/26/17 06/26/17 06/26/17 06/26/17 16:00 16:44 17:00 18:00 Pulse 79 78 109 Resp 07 14 17 B/P (MAP) 145/74 145/67 186/89 Pulse Ox 98 97 98 O2 Delivery Room Air Room Air Room Air Room Air 06/26/17 06/26/17 06/26/17 06/26/17 19:00 19:00 19:34 20:00 Temp 98.0 Pulse 81 81 86 Resp 23 8 B/P (MAP) 166/69 156/71 Pulse Ox 97 98 97 O2 Delivery Room Air Room Air Room Air 06/26/17 06/26/17 06/26/17 06/26/17 20:00 21:00 22:00 23:00 Pulse 75 93 109 B/P (MAP) 171/81 179/78 149/114 Pulse Ox 98 94 98 94 O2 Delivery Room Air Room Air Room Air Room Air 06/27/17 06/27/17 06/27/17 06/27/17 00:00 00:00 01:00 01:00 Temp 98.7 Pulse 85 88 88 Resp 18 10 B/P (MAP) 161/64 158/71 Pulse Ox 97 98 98 O2 Delivery Room Air Room Air Room Air 06/27/17 06/27/17 06/27/17 06/27/17 02:00 03:00 04:00 04:00 Temp 97.5 Pulse 80 85 93 Resp 26 13 19 B/P (MAP) 175/76 145/64 143/66 Pulse Ox 97 97 98 98 O2 Delivery Room Air Room Air Room Air Room Air 9/06/0506/27/17 06/27/17 06/27/17 05:00 06:00 07:00 07:30 Temp 97.6 Pulse 94 72 79 83 Resp 15 26 26 B/P (MAP) 163/85 154/57 184/64 Pulse Ox 99 97 98 O2 Delivery Room Air Room Air Room Air 06/27/17 08:00 O2 Delivery Room Air Capillary Refill : Less Than 3 Seconds General Appearance: moderate distress, cachetic HEENT: PERRL/EOMI, pharynx normal Neck: non-tender, full range of motion, supple, normal inspection Respiratory: lungs clear, normal breath sounds, no respiratory distress, no accessory muscle use Cardiovascular: regular rate, rhythm, no edema, no gallop, no JVD, no murmur Gastrointestinal: normal bowel sounds, non tender, soft, no organomegaly, no pulsatile mass Back: normal inspection, no CVA tenderness, no vertebral tenderness Extremities: normal range of motion, non-tender, normal inspection, no pedal edema, no calf tenderness, normal capillary refill Neurologic/Psychiatric: disoriented x 3, other (moving all extremities equally , purposeful to pain/irritation of condom catheter) Skin: normal color, warm/dry Assessment/Plan Assessment/Plan Plan SEVERE DIABETIC KETOACIDOSIS ADM - on insulin drip protocol with BS decreasing, plan to dc today and then use long acting. will use q6h regular insulin SSI as pt needs to be NPO due to MS changes. patient a long-standing diabetic with marginal control. ACUTE ON CHRONIC RENAL FAILURE ADM - receiving multiple fluid boluses and rapid fluids per protocl with good response for renal status. per [facility] urologist who spoke with nurse, he has stage 3 CKD. CHRONIC ANEMIA, LIKELY OF CHRONIC DISEASE VERSUS IRON DEFICIENCY ADM - will monitor, transfuse if hgb <7 LEUKOCYTOSIS ADM - I do not believe this is infectious. blood cultures have been drawn, negative for now. CXR clear, UA shows no sign of infection. liekly related to DKA. ALTERED MENTAL STATUS ADM - will consult Dr John due to patient's complexities. could be seizure/ status. could also be menigitis though less likely in absence of fever. will observe over next 12h to see if it improves as his metabolic statsu improves. could be drug ingestion as we can't test for K2, etc. DVT PROPH: lovenox. Diagnosis/Problems: Clinical Quality Measures DVT/VTE Risk/Contraindication: Risk Factor Score Per Nursin RFS Level Per Nursing on Admit: 4+=Very High Copy Copies To 1: LEO KELLER APRN, MD Jun 27, 2017 10:31 am
[2017-06-27] MEDS: 1/2 NS W/KCL 20 MEQ/L 1,000 ML IV SCH ×4 (10:34→22:08)
[2017-06-27 10:59] LABS: ABG BASE EXCESS -2.8 MMOL/L (-2.5-2.5); ABG HCO3 21 MMOL/L (23-27); ABG OXYGEN SATURATION 92 % (94-100); ABG PCO2 36 MMHG (35-45); ABG PH 7.39 (7.37-7.43); ABG PO2 68 MMHG (79-93); ABG TCO2 22.6 MMOL/L (21.0-31.0)
[2017-06-27 11:01] LABS: ALLENS TEST YES-POS; PATIENT TEMP 98.4
--- NOTE | 2017-06-27 11:27 | Progress Note (SOAP) ---
Subjective Subjective/Events-last exam patient able to state his name and date of today, knows he is in [place]. we were able to remove drip yesterday but AG is increasing again. Review of Systems Time Seen by Provider: 09:00 Pulmonary: No Dyspnea Cardiovascular: No: Chest Pain Objective Exam Last Set of Vital Signs Vital Signs Date Time Temp Pulse Resp B/P (MAP) Pulse Ox O2 Delivery O2 Flow Rate FiO2 06/27/17 08:00 Room Air 06/27/17 07:30 97.6 83 26 184/64 98 Capillary Refill : Less Than 3 Seconds I&O Intake and Output 06/28/17 00:00 Intake Total 1888 ml Output Total 470 ml Balance 1418 ml Intake Oral 670 ml IV Total 1218 ml Output Urine Total 470 ml # Urine Diapers 1 # Bowel Movements 1 General: Alert, Oriented X3, Cooperative, Mild Distress Lungs: Clear to Auscultation, Normal Air Movement Heart: Regular Rate, Normal S1, Normal S2, No Murmurs, Gallops, Rubs Abdomen: Normal Bowel Sounds, Soft, No Tenderness, No Hepatosplenomegaly, No Masses Extremities: No Clubbing, No Cyanosis, No Edema Skin: No Rashes, No Breakdown, No Significant Lesion Psych/Mental Status: Other (moving all extremities equally) Results/Procedures Lab Laboratory Tests 06/26/17 11:52: Glucometer 148H 06/26/17 12:02: Lactic Acid Level 1.71, Ammonia 14 06/26/17 12:52: Glucometer 153H 06/26/17 13:42: Glucometer 146H 06/26/17 14:12: Lactic Acid Level 1.93 06/26/17 14:16: Glucometer 138H 06/26/17 15:08: Glucometer 134H 06/26/17 15:45: Glucometer 157H 06/26/17 17:04: Glucometer 224H 06/26/17 17:05: White Blood Count 33.9*H, Red Blood Count 3.10L, Hemoglobin 9.4L, Hematocrit 27L , Mean Corpuscular Volume 87, Mean Corpuscular Hemoglobin 30, Mean Corpuscular Hemoglobin Concent 35, Red Cell Distribution Width 13.6, Platelet Count 335, Mean Platelet Volume 10.8H, Neutrophils (%) (Auto) 87H, Lymphocytes (%) (Auto) 5L, Monocytes (%) (Auto) 9, Eosinophils (%) (Auto) 0, Basophils (%) (Auto) 0, Neutrophils # (Auto) 29.4H, Lymphocytes # (Auto) 1.6, Monocytes # (Auto) 3.0H, Eosinophils # (Auto) 0.0, Basophils # (Auto) 0.0, Sodium Level 141, Potassium Level 3.5L, Chloride Level 106, Carbon Dioxide Level 23, Anion Gap 12, Blood Urea Nitrogen 35H, Creatinine 1.72H, Estimat Glomerular Filtration Rate 41, BUN/ Creatinine Ratio 20, Glucose Level 211H, Calcium Level 8.9 06/26/17 17:58: Glucometer 213H 06/27/17 00:16: Glucometer 102 06/27/17 04:30: White Blood Count 25.3H, Red Blood Count 3.38L, Hemoglobin 10.0L, Hematocrit 29L , Mean Corpuscular Volume 86, Mean Corpuscular Hemoglobin 30, Mean Corpuscular Hemoglobin Concent 35, Red Cell Distribution Width 13.9, Platelet Count 342, Mean Platelet Volume 11.1H, Neutrophils (%) (Auto) 85H, Lymphocytes (%) (Auto) 8L, Monocytes (%) (Auto) 8, Eosinophils (%) (Auto) 0, Basophils (%) (Auto) 0, Neutrophils # (Auto) 21.3H, Lymphocytes # (Auto) 1.9, Monocytes # (Auto) 2.0H, Eosinophils # (Auto) 0.0, Basophils # (Auto) 0.0, Sodium Level 142, Potassium Level 3.1L, Chloride Level 107, Carbon Dioxide Level 19L, Anion Gap 16H, Blood Urea Nitrogen 22H, Creatinine 1.24, Estimat Glomerular Filtration Rate 60, BUN/ Creatinine Ratio 18, Glucose Level 156H, Calcium Level 8.8, Phosphorus Level 1.7L, Magnesium Level 1.7L 06/27/17 09:39: Glucometer 313H 06/27/17 10:40: Blood Gas Puncture Site LT RAD, Blood Gas Patient Temperature 98.4, Arterial Blood pH 7.39, Arterial Blood Partial Pressure CO2 36, Arterial Blood Partial Pressure O2 68L, Arterial Blood HCO3 21L, Arterial Blood Total CO2 22.6, Arterial Blood Oxygen Saturation 92L, Arterial Blood Base Excess -2.8L, Leroy Test YES-POS, Blood Gas Ventilator Setting NO, Blood Gas Inspired Oxygen ROOM AIR Microbiology 06/25/17 Blood Culture - Preliminary, Resulted No growth Radiology Date of Exam: 06/25/17 CHEST 1 VIEW, AP/PA ONLY EXAM: CHEST 1 VIEW, AP/PA ONLY INDICATION: Glucose problems. COMPARISON: Chest radiograph 01/15/2016. FINDINGS: Normal heart size and pulmonary vascularity. No focal pulmonary opacity, pleural effusion or pneumothorax. No acute osseous findings. No significant change. IMPRESSION: Negative chest. Assessment/Plan Assessment/Plan Plan SEVERE DIABETIC KETOACIDOSIS ADM - on insulin drip protocol with BS decreasing, plan to dc today and then use long acting. will use q6h regular insulin SSI as pt needs to be NPO due to MS changes. patient a long-standing diabetic with marginal control. 06/27 - pt improved; I started his levemir at a cautious dose due to not wanting to bottom him out. however, this appears to not have been enough. we will restart the drip today and then plan to dc it with a nighttime dose of full 15 units. he can have PO intake if he is able to pass a swallow screen. ACUTE ON CHRONIC RENAL FAILURE ADM - receiving multiple fluid boluses and rapid fluids per protocl with good response for renal status. per [place] urologist who spoke with nurse, he has stage 3 CKD. 06/27 - much improved, will monitor CHRONIC ANEMIA, LIKELY OF CHRONIC DISEASE VERSUS IRON DEFICIENCY ADM - will monitor, transfuse if hgb <7 06/27 - no transfusion indicated LEUKOCYTOSIS ADM - I do not believe this is infectious. blood cultures have been drawn, negative for now. CXR clear, UA shows no sign of infection. liekly related to DKA. 06/27 - improved despite not having abx. spoke iwth Dr John who recommends empiric treatment for meningitis - vanc and high dose rocephin. will start and appreciate his input. ALTERED MENTAL STATUS ADM - will consult Dr John due to patient's complexities. could be seizure/ status. could also be menigitis though less likely in absence of fever. will observe over next 12h to see if it improves as his metabolic statsu improves. could be drug ingestion as we can't test for K2, etc. 06/27 - improved but slowly. will try to get a CT head today but do not want to sedate. if he is combative, can try low dose haldol. DVT PROPH: lovenox. Diagnosis/Problems: Clinical Quality Measures DVT/VTE Risk/Contraindication: Risk Factor Score Per Nursin RFS Level Per Nursing on Admit: 4+=Very High LEO OROZCO MD Jun 27, 2017 11:27 am
[2017-06-27 12:21] LABS: BILIRUBIN,URINE NEGATIVE (NEGATIVE); KETONES,URINE 1+ (NEGATIVE); LEUKOCYTE ESTERASE ,URINE NEGATIVE (NEGATIVE); NITRITE,URINE NEGATIVE (NEGATIVE); PH,URINE 6.5 (5-9); PROTEIN,URINE 2+ (NEGATIVE); UROBILINOGEN,URINE NORMAL (NORMAL)
[2017-06-27] MEDS: ENOXAPARIN 40 MG/0.4 ML (LOVENOX) SYR SC SCH (12:28)
--- NOTE | 2017-06-27 13:06 | Occ Therapy Progress Note ---
Therapy Progress Note 1300 Nursing reported that pt is still too confused to participate and is not following commands. Will continue to follow. DIANE GANNON OT Jun 27, 2017 13:06
[2017-06-27 15:24] LABS: ANION GAP 9 MMOL/L (5-14); BLOOD UREA NITROGEN 14 MG/DL (7-18); BUN/CREATININE RATIO 13; CALCIUM 8.5 MG/DL (8.5-10.1); CARBON DIOXIDE 23 MMOL/L (21-32); CHLORIDE 109 MMOL/L (98-107); CREATININE SERUM 1.06 MG/DL (0.60-1.30); GFR ESTIMATED > 60; GLUCOSE 189 MG/DL (70-105); SODIUM 141 MMOL/L (135-145)
[2017-06-27] MEDS: HALOPERIDOL 5 MG/ML (HALDOL) AMP IM PRN (16:41)
[2017-06-27] MEDS: PANTOPRAZOLE 40 MG (PROTONIX) TAB PO SCH (16:42)
[2017-06-27 19:14] LABS: ANION GAP 12 MMOL/L (5-14); BLOOD UREA NITROGEN 12 MG/DL (7-18); BUN/CREATININE RATIO 13; CALCIUM 8.5 MG/DL (8.5-10.1); CARBON DIOXIDE 22 MMOL/L (21-32); CHLORIDE 108 MMOL/L (98-107); CREATININE SERUM 0.94 MG/DL (0.60-1.30); GFR ESTIMATED > 60; GLUCOSE 110 MG/DL (70-105); POTASSIUM 3.3 MMOL/L (3.6-5.0); SODIUM 142 MMOL/L (135-145)
[2017-06-27] MEDS ORDERED: LACTATED RINGERS 500 ML IV ONE (19:30)
[2017-06-27] MEDS ORDERED: POTASSIUM PHOSPHATE 15 MM/NS 250 ML IVPB IV ONE ×2 (20:00)
[2017-06-27 20:45] LABS: ANION GAP 10 MMOL/L (5-14); BLOOD UREA NITROGEN 11 MG/DL (7-18); BUN/CREATININE RATIO 12; CALCIUM 8.5 MG/DL (8.5-10.1); CARBON DIOXIDE 22 MMOL/L (21-32); CHLORIDE 109 MMOL/L (98-107); CREATININE SERUM 0.94 MG/DL (0.60-1.30); GFR ESTIMATED > 60; GLUCOSE 119 MG/DL (70-105); POTASSIUM 3.6 MMOL/L (3.6-5.0); SODIUM 141 MMOL/L (135-145)
[2017-06-27] MEDS ORDERED: inSUlin DETERMIR 1 UNIT/0.01 ML (LEVEMIR) CHARGE PER UNIT SQ ONE (23:00)
[2017-06-28] VITALS (21 sets, daily range): BP systolic 114–192; BP diastolic 60–99
[2017-06-28] MEDS ORDERED: inSUlin (REGULAR) HUMAN 1 UNIT/0.01 ML (CHARGE PER UNIT) SC SCH
[2017-06-28] MEDS: inSUlin ASPART (NovoLOG) 1 UNIT/0.01 ML (CHARGE PER UNIT) SC SCH ×7 (00:18→20:24)
[2017-06-28 00:36] LABS: ANION GAP 11 MMOL/L (5-14); BLOOD UREA NITROGEN 9 MG/DL (7-18); BUN/CREATININE RATIO 10; CALCIUM 8.3 MG/DL (8.5-10.1); CARBON DIOXIDE 22 MMOL/L (21-32); CHLORIDE 108 MMOL/L (98-107); CREATININE SERUM 0.91 MG/DL (0.60-1.30); GFR ESTIMATED > 60; GLUCOSE 224 MG/DL (70-105); MAGNESIUM 1.8 MG/DL (1.8-2.4); PHOSPHORUS 1.9 MG/DL (2.3-4.7); POTASSIUM 3.3 MMOL/L (3.6-5.0); SODIUM 141 MMOL/L (135-145)
[2017-06-28] MEDS: 1/2 NS W/KCL 20 MEQ/L 1,000 ML IV SCH ×4 (01:56→12:52)
[2017-06-28] MEDS: 1/2 NS IV SOLUTION 1,000 ML IV SCH ×4 (01:56→12:51)
[2017-06-28] MEDS: D5 1/2 NS W/KCL 20 MEQ/L 1,000 ML IV SCH ×4 (01:57→12:54)
[2017-06-28] MEDS ORDERED: POTASSIUM CL 10MEQ/50ML IVPB 50 ML IV SCH (02:00)
[2017-06-28] MEDS ORDERED: MAGNESIUM 1 GM/100 ML IVPB 100 ML IV SCH (02:00)
[2017-06-28] MEDS: MAGNESIUM 1 GM/D5W 100 ML IVPB IV SCH ×2 (02:07→03:12)
[2017-06-28] MEDS: POTASSIUM CL 10 MEQ/50 ML IVPB (PRE-MIX) IV SCH ×4 (02:07→04:47)
[2017-06-28] MEDS ORDERED: hydrALAZINE (APESOLINE) 20 MG/ML VIAL IV PRN (03:00)
[2017-06-28] MEDS ORDERED: meTOprolol 5 MG/5 ML (LOPRESSOR) VIAL IV PRN (03:00)
[2017-06-28] MEDS ORDERED: meTOprolol 5 MG/5 ML (LOPRESSOR) VIAL IV ONE (03:00)
[2017-06-28] MEDS ORDERED: hydrALAZINE (APESOLINE) 20 MG/ML VIAL IV ONE (03:00)
[2017-06-28] MEDS: ONDANSETRON 4 MG/2 ML (SDV) Z0FRAN IV PRN ×3 (03:20→17:56)
[2017-06-28] MEDS ORDERED: DEXTROSE 10% IV SOLUTION 1,000 ML IV PRN (04:15)
[2017-06-28] MEDS ORDERED: DEXTROSE 50% 50 ML (IMS) SYR IV PRN (04:15)
[2017-06-28] MEDS ORDERED: GLUCAGON EMERGENCY 1 MG/KIT IM PRN (04:15)
[2017-06-28] MEDS: PANTOPRAZOLE 40 MG (PROTONIX) TAB PO SCH (06:01)
[2017-06-28 06:09] LABS: RED BLOOD COUNT 3.26 10^6/uL (4.35-5.85); WHITE BLOOD COUNT 14.6 10^3/uL (4.3-11.0)
[2017-06-28 06:10] LABS: BASOPHILS % (AUTO) 0 % (0-10); EOSINOPHILS % (AUTO) 0 % (0-10); LYMPHOCYTES # (AUTO) 1.8 X 10^3 (1.0-4.0); LYMPHOCYTES % (AUTO) 12 % (12-44); MEAN CORPUSCULAR HEMOGLOBIN 29 PG (25-34); MEAN CORPUSCULAR HGB CONC 34 G/DL (32-36); MEAN CORPUSCULAR VOLUME 86 FL (80-99); MEAN PLATELET VOLUME 10.6 FL (7.4-10.4); MONOCYTES # (AUTO) 1.5 X 10^3 (0.0-1.0); MONOCYTES % (AUTO) 10 % (0-12); NEUTROPHILS # (AUTO) 11.4 X 10^3 (1.8-7.8); NEUTROPHILS % (AUTO) 78 % (42-75); PLATELET COUNT 326 10^3/uL (130-400); RED CELL DISTRIBUTION WIDTH 13.9 % (10.0-14.5)
[2017-06-28 06:29] LABS: ANION GAP 9 MMOL/L (5-14); BLOOD UREA NITROGEN 9 MG/DL (7-18); BUN/CREATININE RATIO 10; CALCIUM 8.6 MG/DL (8.5-10.1); CARBON DIOXIDE 23 MMOL/L (21-32); CHLORIDE 109 MMOL/L (98-107); GFR ESTIMATED > 60; GLUCOSE 127 MG/DL (70-105); MAGNESIUM 2.5 MG/DL (1.8-2.4); PHOSPHORUS 2.1 MG/DL (2.3-4.7); POTASSIUM 3.9 MMOL/L (3.6-5.0); SODIUM 141 MMOL/L (135-145)
[2017-06-28] MEDS: KCL 20 MEQ TAB (K-DUR) PO SCH (06:41)
[2017-06-28] MEDS: POTASSIUM CL 10MEQ/50ML IVPB 50 ML IV SCH (06:41)
[2017-06-28] MEDS: MAGNESIUM 1 GM/100 ML IVPB 100 ML IV SCH (06:41)
[2017-06-28] MEDS ORDERED: SODIUM PHOSPHATE INJ 30 MM in NS (IVPB) 250 ML IV ONE (08:00)
[2017-06-28] MEDS ORDERED: SODIUM PHOSPHATE INJ 30 MM in NS (IVPB) 250 ML INJ ONE (08:00)
--- NOTE | 2017-06-28 08:18 | Diagnostic Imaging Report ---
EXAM: CHEST 1 VIEW, AP/PA ONLY INDICATION: Acute renal failure. COMPARISON: Chest radiograph 06/27/2017. FINDINGS: Normal heart size and pulmonary vascularity. No focal pulmonary opacity, pleural effusion or pneumothorax. No acute osseous findings. Right PICC tip in the RA. IMPRESSION: New right PICC tip in the RA. Dictated by: Dictated on workstation # [id number]
--- NOTE | 2017-06-28 08:37 | Consultation-Cardiology ---
HPI-Cardiology Cardiology Consultation Date of Consultation 06/28/17 Date of Admission Time Seen by Provider: 08:32 Indication: arrhythmia HPI 56 years old gentleman with history of diabetes mellitus, underwent radical prostatectomy, was admitted with DKA. He had change in mental status. Unable to provide history. Upon my evaluation he was complaining of leg pain. Denied any chest pain. Unable to provide any further history, admitted for nausea and vomiting, no further information are available, history was obtained by reviewing his records Home Medications & Allergies Allergies: Coded Allergies: No Known Drug Allergies (Unverified , 08/24/13) Home Medication List Reviewed: Yes [id number] Hx Patient Social History Alcohol Use: Denies Use Recreational Drug Use: No Smoking Status: Former Smoker 2nd Hand Smoke Exposure: No Recent Foreign Travel: No Recent Infectious Disease Expo: No Recent Hopitalizations: No Sexual Abuse: No (pt is unable to answer) Immunizations Up To Date Tetanus Booster (TDap): Less than 5yrs Date of Pneumonia Vaccine: Jul 17, 2015 Date of Influenza Vaccine: Jul 17, 2015 Past Medical History past medical history as discussed below Family Medical History Family History: 03 FATHER Family history: Hypertension, Onset:40's - 50 Myocardial infarction 03 MOTHER Family history: Hypertension, Onset:40's - 50 History of - respiratory disease, Onset:50's - 60 Myocardial infarction Constitutional: other (unable to provide review of system other than leg pain at this point) Reviewed Test Results Reviewed Test Results Lab Laboratory Tests Test 06/27/17 09:39 06/27/17 10:40 06/27/17 11:54 06/27/17 12:00 Range/Units Glucometer 313 H 290 H 70-110 MG/DL Blood Gas Puncture Site LT RAD Blood Gas Patient Temperature 98.4 Arterial Blood pH 7.39 7.37-7.43 Arterial Blood Partial Pressure CO2 36 35-45 MMHG Arterial Blood Partial Pressure O2 68 L 79-93 MMHG Arterial Blood HCO3 21 L 23-27 MMOL/L Arterial Blood Total CO2 22.6 21.0-31.0 MMOL/L Arterial Blood Oxygen Saturation 92 L 94-100 % Arterial Blood Base Excess -2.8 L -2.5-2.5 MMOL/L Leroy Test YES-POS Blood Gas Ventilator Setting NO Blood Gas Inspired Oxygen ROOM AIR Urine Color YELLOW Urine Clarity CLEAR Urine pH 6.5 5-9 Urine Specific [place] 1.010 L 1.016-1.022 Urine Protein 2+ H NEGATIVE Urine Glucose (UA) 4+ H NEGATIVE Urine Ketones 1+ H NEGATIVE Urine Nitrite NEGATIVE NEGATIVE Urine Bilirubin NEGATIVE NEGATIVE Urine Urobilinogen NORMAL NORMAL MG/DL Urine Leukocyte Esterase NEGATIVE NEGATIVE Urine RBC (Auto) 1+ H NEGATIVE Urine RBC NONE /HPF Urine WBC NONE /HPF Urine Squamous Epithelial Cells NONE /HPF Urine Crystals NONE /LPF Urine Bacteria NEGATIVE /HPF Urine Casts NONE /LPF Urine Mucus NEGATIVE /LPF Urine Culture Indicated NO Test 06/27/17 12:50 06/27/17 14:10 06/27/17 14:50 06/27/17 14:53 Range/Units Glucometer 288 H 227 H 187 H 70-110 MG/DL Sodium Level 141 135-145 MMOL/L Potassium Level 3.0 L 3.6-5.0 MMOL/L Chloride Level 109 H 98-107 MMOL/L Carbon Dioxide Level 23 21-32 MMOL/L Anion Gap 9 5-14 MMOL/L Blood Urea Nitrogen 14 7-18 MG/DL Creatinine 1.06 0.60-1.30 MG/DL Estimat Glomerular Filtration Rate > 60 BUN/Creatinine Ratio 13 Glucose Level 189 H 70-105 MG/DL Hemoglobin A1c 9.9 H 4.5-6.2 % Lactic Acid Level 2.09 *H 0.50-2.00 MMOL/L Calcium Level 8.5 8.5-10.1 MG/DL Test 06/27/17 15:53 06/27/17 16:25 06/27/17 16:50 06/27/17 17:22 Range/Units Glucometer 147 H 137 H 106 131 H 70-110 MG/DL Test 06/27/17 17:50 06/27/17 18:18 06/27/17 18:20 06/27/17 18:45 Range/Units Lactic Acid Level 2.52 *H 0.50-2.00 MMOL/L Glucometer 126 H 120 H 70-110 MG/DL Sodium Level 142 135-145 MMOL/L Potassium Level 3.3 L 3.6-5.0 MMOL/L Chloride Level 108 H 98-107 MMOL/L Carbon Dioxide Level 22 21-32 MMOL/L Anion Gap 12 5-14 MMOL/L Blood Urea Nitrogen 12 7-18 MG/DL Creatinine 0.94 0.60-1.30 MG/DL Estimat Glomerular Filtration Rate > 60 BUN/Creatinine Ratio 13 Glucose Level 110 H 70-105 MG/DL Calcium Level 8.5 8.5-10.1 MG/DL Magnesium Level 2.0 1.8-2.4 MG/DL Test 06/27/17 20:01 06/27/17 20:25 06/27/17 20:58 06/27/17 21:55 Range/Units Glucometer 123 H 126 H 166 H 70-110 MG/DL Sodium Level 141 135-145 MMOL/L Potassium Level 3.6 3.6-5.0 MMOL/L Chloride Level 109 H 98-107 MMOL/L Carbon Dioxide Level 22 21-32 MMOL/L Anion Gap 10 5-14 MMOL/L Blood Urea Nitrogen 11 7-18 MG/DL Creatinine 0.94 0.60-1.30 MG/DL Estimat Glomerular Filtration Rate > 60 BUN/Creatinine Ratio 12 Glucose Level 119 H 70-105 MG/DL Calcium Level 8.5 8.5-10.1 MG/DL Test 06/27/17 23:02 06/28/17 00:05 06/28/17 02:00 06/28/17 02:57 Range/Units Glucometer 206 H 215 H 105 81 70-110 MG/DL Sodium Level 141 135-145 MMOL/L Potassium Level 3.3 L 3.6-5.0 MMOL/L Chloride Level 108 H 98-107 MMOL/L Carbon Dioxide Level 22 21-32 MMOL/L Anion Gap 11 5-14 MMOL/L Blood Urea Nitrogen 9 7-18 MG/DL Creatinine 0.91 0.60-1.30 MG/DL Estimat Glomerular Filtration Rate > 60 BUN/Creatinine Ratio 10 Glucose Level 224 H 70-105 MG/DL Lactic Acid Level 0.97 0.50-2.00 MMOL/L Calcium Level 8.3 L 8.5-10.1 MG/DL Phosphorus Level 1.9 L 2.3-4.7 MG/DL Magnesium Level 1.8 1.8-2.4 MG/DL Test 06/28/17 03:50 06/28/17 05:49 06/28/17 05:58 06/28/17 08:00 Range/Units Glucometer 132 H 121 H 103 70-110 MG/DL White Blood Count 14.6 H 4.3-11.0 10^3/uL Red Blood Count 3.26 L 4.35-5.85 10^6/uL Hemoglobin 9.6 L 13.3-17.7 G/DL Hematocrit 28 L 40-54 % Mean Corpuscular Volume 86 80-99 FL Mean Corpuscular Hemoglobin 29 25-34 PG Mean Corpuscular Hemoglobin Concent 34 32-36 G/DL Red Cell Distribution Width 13.9 10.0-14.5 % Platelet Count 326 130-400 10^3/uL Mean Platelet Volume 10.6 H 7.4-10.4 FL Neutrophils (%) (Auto) 78 H 42-75 % Lymphocytes (%) (Auto) 12 12-44 % Monocytes (%) (Auto) 10 0-12 % Eosinophils (%) (Auto) 0 0-10 % Basophils (%) (Auto) 0 0-10 % Neutrophils # (Auto) 11.4 H 1.8-7.8 X 10^3 Lymphocytes # (Auto) 1.8 1.0-4.0 X 10^3 Monocytes # (Auto) 1.5 H 0.0-1.0 X 10^3 Eosinophils # (Auto) 0.0 0.0-0.3 10^3/uL Basophils # (Auto) 0.0 0.0-0.1 10^3/uL Sodium Level 141 135-145 MMOL/L Potassium Level 3.9 3.6-5.0 MMOL/L Chloride Level 109 H 98-107 MMOL/L Carbon Dioxide Level 23 21-32 MMOL/L Anion Gap 9 5-14 MMOL/L Blood Urea Nitrogen 9 7-18 MG/DL Creatinine 0.90 0.60-1.30 MG/DL Estimat Glomerular Filtration Rate > 60 BUN/Creatinine Ratio 10 Glucose Level 127 H 70-105 MG/DL Calcium Level 8.6 8.5-10.1 MG/DL Phosphorus Level 2.1 L 2.3-4.7 MG/DL Magnesium Level 2.5 H 1.8-2.4 MG/DL Radiology Date of Exam: 06/25/17 CHEST 1 VIEW, AP/PA ONLY EXAM: CHEST 1 VIEW, AP/PA ONLY INDICATION: Glucose problems. COMPARISON: Chest radiograph 01/15/2016. FINDINGS: Normal heart size and pulmonary vascularity. No focal pulmonary opacity, pleural effusion or pneumothorax. No acute osseous findings. No significant change. IMPRESSION: Negative chest. Physical Exam Vital Signs Vital Sign - Last 12Hours 06/25/17 23:20 Temp 97.2 Pulse 133 Resp 26 B/P (MAP) 187/97 Pulse Ox 97 O2 Delivery Room Air Capillary Refill : Less Than 3 Seconds General Appearance: WD/WN, Severe Distress Eyes: Bilateral Eye Normal Inspection, Bilateral Eye PERRL, Bilateral Eye EOMI HEENT: PERRL/EOMI, TMs Normal, Normal ENT Inspection, Pharynx Normal Neck: Full Range of Motion, Normal Inspection, Supple Respiratory: Chest Non Tender, Normal Breath Sounds, No Accessory Muscle Use, No Respiratory Distress, Crackles Cardiovascular: Regular Rate, Rhythm, No Edema, No JVD, Normal Peripheral Pulses, Systolic Murmur, Gallop/S3 Gastrointestinal: Normal Bowel Sounds, No Organomegaly, No Pulsatile Mass, Non Tender, Soft Back: Normal Inspection, No CVA Tenderness, No Vertebral Tenderness Extremity: Normal Capillary Refill, Normal Inspection, Normal Range of Motion, Non Tender, No Calf Tenderness, No Pedal Edema Neurologic/Psychiatric: Alert, Disoriented x3, Other ( flat affect) Skin: Normal Color, Warm/Dry Lymphatic: No Adenopathy A/P-Cardiology Admission Diagnosis Premature ventricular contractions Electrolyte abnormality DKA Change in mental status Assessment/Plan Frequent PVCs, questionable short run of nonsustained ventricular tachycardia, most probably artifacts, probably secondary to electrolyte abnormality, being corrected. Continue to monitor on telemetry. Diabetic ketoacidosis, being managed by primary care physician, improving. Continue to monitor Electrolyte abnormality, hypokalemia, hypomagnesemia, improved, continue to monitor closely Status post acute on chronic renal failure, improving with aggressive hydration. Continue to monitor Leukocytosis, improving, continue to monitor electrolytes. Change in mental status, confusion, lethargy, combative, improving Depression, anxiety Hyperlipidemia Clinical Quality Measures DVT/VTE Risk/Contraindication: Risk Factor Score Per Nursin RFS Level Per Nursing on Admit: 4+=Very High LOREE HUERTA MD Jun 28, 2017 08:37
[2017-06-28] MEDS ORDERED: VANCOMYCIN 1 GM/NS 250 ML IVPB IV SCH ×2 (09:00)
[2017-06-28] MEDS: NS IV 1000 ML 1,000 ML IV SCH ×2 (09:36→17:55)
[2017-06-28] MEDS ORDERED: inSUlin REGULAR TPN/DRIP ONLY 250 UNITS in NORMAL SALINE 250 ML IV SCH (10:00)
[2017-06-28] MEDS: ENOXAPARIN 40 MG/0.4 ML (LOVENOX) SYR SC SCH (12:14)
--- NOTE | 2017-06-28 12:44 | Progress Note (SOAP) ---
Subjective Subjective/Events-last exam Afebrile. Had frequent PVCs, possible short run of VT overnight and Cardiology was consulted. This morning he is alert and oriented to self and city. He states he has pain in his legs but denies any other concerns. Review of Systems Date Seen by Provider: Jun 28, 2017 Time Seen by Provider: 06:59 Objective Exam Last Set of Vital Signs Vital Signs Date Time Temp Pulse Resp B/P (MAP) Pulse Ox O2 Delivery O2 Flow Rate FiO2 06/28/17 11:58 97.8 06/28/17 09:00 104 20 147/70 98 Room Air Capillary Refill : Less Than 3 Seconds I&O Intake and Output 06/29/17 00:00 Intake Total 750 ml Output Total 1250 ml Balance -500 ml Intake Oral 350 ml IV Total 400 ml Output Urine Total 1250 ml General: Alert, No Acute Distress Lungs: Clear to Auscultation, Normal Air Movement Heart: Regular Rate, No Murmurs Abdomen: Normal Bowel Sounds, Soft Extremities: No Edema Results/Procedures Lab Laboratory Tests 06/27/17 12:50: Glucometer 288H 06/27/17 14:10: Glucometer 227H 06/27/17 14:50: Sodium Level 141, Potassium Level 3.0L, Chloride Level 109H, Carbon Dioxide Level 23, Anion Gap 9, Blood Urea Nitrogen 14, Creatinine 1.06, Estimat Glomerular Filtration Rate > 60, BUN/Creatinine Ratio 13, Glucose Level 189H, Hemoglobin A1c 9.9H, Lactic Acid Level 2.09*H, Calcium Level 8.5 06/27/17 14:53: Glucometer 187H 06/27/17 15:53: Glucometer 147H 06/27/17 16:25: Glucometer 137H 06/27/17 16:50: Glucometer 106 06/27/17 17:22: Glucometer 131H 06/27/17 17:50: Lactic Acid Level 2.52*H 06/27/17 18:18: Glucometer 126H 06/27/17 18:20: Sodium Level 142, Potassium Level 3.3L, Chloride Level 108H, Carbon Dioxide Level 22, Anion Gap 12, Blood Urea Nitrogen 12, Creatinine 0.94, Estimat Glomerular Filtration Rate > 60, BUN/Creatinine Ratio 13, Glucose Level 110H, Calcium Level 8.5, Magnesium Level 2.0 06/27/17 18:45: Glucometer 120H 06/27/17 20:01: Glucometer 123H 06/27/17 20:25: Sodium Level 141, Potassium Level 3.6, Chloride Level 109H, Carbon Dioxide Level 22, Anion Gap 10, Blood Urea Nitrogen 11, Creatinine 0.94, Estimat Glomerular Filtration Rate > 60, BUN/Creatinine Ratio 12, Glucose Level 119H, Calcium Level 8.5 06/27/17 20:58: Glucometer 126H 06/27/17 21:55: Glucometer 166H 06/27/17 23:02: Glucometer 206H 06/28/17 00:05: Glucometer 215H, Sodium Level 141, Potassium Level 3.3L, Chloride Level 108H, Carbon Dioxide Level 22, Anion Gap 11, Blood Urea Nitrogen 9, Creatinine 0.91, Estimat Glomerular Filtration Rate > 60, BUN/Creatinine Ratio 10, Glucose Level 224H, Lactic Acid Level 0.97, Calcium Level 8.3L, Phosphorus Level 1.9L, Magnesium Level 1.8 06/28/17 02:00: Glucometer 105 06/28/17 02:57: Glucometer 81 06/28/17 03:50: Glucometer 132H 06/28/17 05:49: Glucometer 121H 06/28/17 05:58: White Blood Count 14.6H, Red Blood Count 3.26L, Hemoglobin 9.6L, Hematocrit 28L , Mean Corpuscular Volume 86, Mean Corpuscular Hemoglobin 29, Mean Corpuscular Hemoglobin Concent 34, Red Cell Distribution Width 13.9, Platelet Count 326, Mean Platelet Volume 10.6H, Neutrophils (%) (Auto) 78H, Lymphocytes (%) (Auto) 12, Monocytes (%) (Auto) 10, Eosinophils (%) (Auto) 0, Basophils (%) (Auto) 0, Neutrophils # (Auto) 11.4H, Lymphocytes # (Auto) 1.8, Monocytes # (Auto) 1.5H, Eosinophils # (Auto) 0.0, Basophils # (Auto) 0.0, Sodium Level 141, Potassium Level 3.9, Chloride Level 109H, Carbon Dioxide Level 23, Anion Gap 9, Blood Urea Nitrogen 9, Creatinine 0.90, Estimat Glomerular Filtration Rate > 60, BUN/ Creatinine Ratio 10, Glucose Level 127H, Calcium Level 8.6, Phosphorus Level 2.1L, Magnesium Level 2.5H 06/28/17 08:00: Glucometer 103 Microbiology 06/25/17 Blood Culture - Preliminary, Resulted No growth 06/26/17 MRSA Screen - Final, Complete MRSA not isolated Radiology Date of Exam: 06/25/17 CHEST 1 VIEW, AP/PA ONLY EXAM: CHEST 1 VIEW, AP/PA ONLY INDICATION: Glucose problems. COMPARISON: Chest radiograph 01/15/2016. FINDINGS: Normal heart size and pulmonary vascularity. No focal pulmonary opacity, pleural effusion or pneumothorax. No acute osseous findings. No significant change. IMPRESSION: Negative chest. Assessment/Plan Assessment/Plan Plan SEVERE DIABETIC KETOACIDOSIS ADM - on insulin drip protocol with BS decreasing, plan to dc today and then use long acting. will use q6h regular insulin SSI as pt needs to be NPO due to MS changes. patient a long-standing diabetic with marginal control. 06/27 - pt improved; I started his levemir at a cautious dose due to not wanting to bottom him out. however, this appears to not have been enough. we will restart the drip today and then plan to dc it with a nighttime dose of full 15 units. he can have PO intake if he is able to pass a swallow screen. 06/28 Insulin drip d/c overnight per eICU and blood sugar normal to low, will use sliding scale at mealtime for now along with the levemir 15 units and determine if scheduled mealtime dosing needed- he is currently not eating well ACUTE ON CHRONIC RENAL FAILURE ADM - receiving multiple fluid boluses and rapid fluids per protocl with good response for renal status. per [place] urologist who spoke with nurse, he has stage 3 CKD. 06/27 - much improved, will monitor CHRONIC ANEMIA, LIKELY OF CHRONIC DISEASE VERSUS IRON DEFICIENCY ADM - will monitor, transfuse if hgb <7 06/27 - no transfusion indicated LEUKOCYTOSIS ADM - I do not believe this is infectious. blood cultures have been drawn, negative for now. CXR clear, UA shows no sign of infection. liekly related to DKA. 06/27 - improved despite not having abx. spoke iwth Dr John who recommends empiric treatment for meningitis - vanc and high dose rocephin. will start and appreciate his input. 06/28 - continued improvement and no fever, no clear evidence of infection and mental status improving, will d/c vancomycin today ALTERED MENTAL STATUS ADM - will consult Dr John due to patient's complexities. could be seizure/ status. could also be menigitis though less likely in absence of fever. will observe over next 12h to see if it improves as his metabolic statsu improves. could be drug ingestion as we can't test for K2, etc. 06/27 - improved but slowly. will try to get a CT head today but do not want to sedate. if he is combative, can try low dose haldol. 06/28 continues to improve slowly, no head CT done yesterday, but with improved status this morning, suspect due to underlying disease CARDIAC ECTOPY 06/28 Seen by Cardiology, suspect PVCs due to electrolyte abnormalities and not true V tach, is improving DVT PROPH: lovenox. Diagnosis/Problems: Clinical Quality Measures DVT/VTE Risk/Contraindication: Risk Factor Score Per Nursin RFS Level Per Nursing on Admit: 4+=Very High NAJMA DAY MD Jun 28, 2017 12:44
[2017-06-28] MEDS ORDERED: ANTACID SUSP 30 ML UDC (MYLANTA) PO PRN (13:45)
[2017-06-28] MEDS: HALOPERIDOL 5 MG/ML (HALDOL) AMP IM PRN (18:19)
[2017-06-28] MEDS ORDERED: morphine INJ 4 MG/ML 1 ML (VIAL/SYRINGE) IVP PRN (19:00)
[2017-06-28] MEDS ORDERED: POTASSIUM PHOSPHATE 15 MM/NS 250 ML IVPB IV ONE ×2 (19:30)
[2017-06-28] MEDS: inSUlin DETERMIR 1 UNIT/0.01 ML (LEVEMIR) CHARGE PER UNIT SQ SCH (20:25)
[2017-06-28] MEDS ORDERED: inSUlin DETERMIR 1 UNIT/0.01 ML (LEVEMIR) CHARGE PER UNIT SQ ONE (21:15)
[2017-06-28] MEDS: ATORVASTATIN 80 MG (LIPITOR) TABLET PO SCH (21:32)
[2017-06-29] VITALS (15 sets, daily range): BP systolic 118–189; BP diastolic 61–101
[2017-06-29] MEDS: inSUlin ASPART (NovoLOG) 1 UNIT/0.01 ML (CHARGE PER UNIT) SC SCH ×4 (00:30→20:18)
[2017-06-29 05:31] LABS: BASOPHILS % (AUTO) 0 % (0-10); EOSINOPHILS % (AUTO) 0 % (0-10); LYMPHOCYTES # (AUTO) 1.7 X 10^3 (1.0-4.0); LYMPHOCYTES % (AUTO) 15 % (12-44); MEAN CORPUSCULAR HEMOGLOBIN 29 PG (25-34); MEAN CORPUSCULAR HGB CONC 33 G/DL (32-36); MEAN CORPUSCULAR VOLUME 88 FL (80-99); MEAN PLATELET VOLUME 10.6 FL (7.4-10.4); MONOCYTES # (AUTO) 1.3 X 10^3 (0.0-1.0); MONOCYTES % (AUTO) 11 % (0-12); NEUTROPHILS # (AUTO) 8.9 X 10^3 (1.8-7.8); NEUTROPHILS % (AUTO) 74 % (42-75); PLATELET COUNT 294 10^3/uL (130-400); RED BLOOD COUNT 3.09 10^6/uL (4.35-5.85); RED CELL DISTRIBUTION WIDTH 14.2 % (10.0-14.5)
[2017-06-29 05:45] LABS: ANION GAP 14 MMOL/L (5-14); BLOOD UREA NITROGEN 11 MG/DL (7-18); BUN/CREATININE RATIO 10; CALCIUM 8.8 MG/DL (8.5-10.1); CARBON DIOXIDE 19 MMOL/L (21-32); CHLORIDE 107 MMOL/L (98-107); CREATININE SERUM 1.13 MG/DL (0.60-1.30); GFR ESTIMATED > 60; GLUCOSE 139 MG/DL (70-105); MAGNESIUM 2.1 MG/DL (1.8-2.4); PHOSPHORUS 2.7 MG/DL (2.3-4.7); POTASSIUM 3.8 MMOL/L (3.6-5.0); SODIUM 140 MMOL/L (135-145)
[2017-06-29] MEDS: KCL 20 MEQ TAB (K-DUR) PO SCH (05:47)
[2017-06-29] MEDS: POTASSIUM CL 10MEQ/50ML IVPB 50 ML IV SCH (05:47)
[2017-06-29] MEDS: MAGNESIUM 1 GM/100 ML IVPB 100 ML IV SCH (05:47)
[2017-06-29] MEDS ORDERED: inSUlin ASPART (NovoLOG) 1 UNIT/0.01 ML (CHARGE PER UNIT) SC SCH ×4 (06:00→12:00)
[2017-06-29] MEDS: PANTOPRAZOLE 40 MG (PROTONIX) TAB PO SCH (06:36)
[2017-06-29] MEDS ORDERED: TROUGH ORDER-PHARMACY XX NR (08:00)
[2017-06-29] MEDS: lisINopril 20 MG (ZESTRIL) TAB PO SCH (09:12)
--- NOTE | 2017-06-29 10:18 | Cardiology Progress Note ---
Subjective Date Seen by Provider: Jun 29, 2017 Time Seen by Provider: 10:16 Subjective/Events-last exam patient is sitting up in a chair, feeling better, oriented, denied any chest pain or shortness of breath. Heart rate is better. Review of Systems General: No Chills, No Night Sweats, No Fatigue, No Malaise, No Appetite, No Other HEENT: No Head Aches, No Visual Changes, No Eye Pain, No Ear Pain, No Dysphasia , No Sinus Congestion, No Post Nasal Drip, No Sore Throat, No Other Pulmonary: No Dyspnea, No Cough, No Pleuritic Chest Pain, No Other Cardiovascular: No: Chest Pain, Palpitations, Orthopnea, Paroxysmal Noc. Dyspnea, Edema, Lt Headedness, Other Objective-Cardiology Exam Last Set of Vital Signs Vital Signs 06/29/17 15:35 Temp 96.5 Pulse 91 Resp 20 B/P (MAP) 177/80 Pulse Ox 98 O2 Delivery Room Air Capillary Refill : Less Than 3 Seconds I&O Intake and Output 06/30/17 00:00 Intake Total 1824 ml Output Total 1900 ml Balance -76 ml Intake Oral 1824 ml Output Urine Total 1900 ml # Voids 4 General: Alert, Oriented X3, Cooperative, No Acute Distress HEENT: Atraumatic Neck: Supple, No JVD Lungs: Clear to Auscultation, Normal Air Movement Heart: Regular Rate, Normal S1, Normal S2, No Murmurs Abdomen: Normal Bowel Sounds, Soft Extremities: No Clubbing, No Cyanosis, No Edema Skin: No Rashes, No Breakdown, No Significant Lesion Neuro: Normal Speech, Strength at 5/5 X4 Ext Psych/Mental Status: Mental Status NL, Other (moving all extremities equally) Results Lab Laboratory Tests 06/29/17 05:19 A/P-Cardiology Admission Diagnosis Premature ventricular contractions Electrolyte abnormality DKA Change in mental status Assessment/Plan Frequent PVCs, better at this time, continue on current medication, I will start oral beta blockers and monitor her tolerance and response Hypertension, poor control, start on Lopressor orally and stop IV medication. Diabetic ketoacidosis, better at this time, being managed by primary care physician, improving. Continue to monitor Electrolyte abnormality, hypokalemia, hypomagnesemia, improved, continue to monitor closely Status post acute on chronic renal failure, improving with aggressive hydration. Continue to monitor Leukocytosis, improving, continue to monitor electrolytes. Change in mental status, confusion, lethargy, combative, improving Depression, anxiety Hyperlipidemia Dr. Dobbs is covering for me starting tomorrow Clinical Quality Measures DVT/VTE Risk/Contraindication: Risk Factor Score Per Nursin RFS Level Per Nursing on Admit: 4+=Very High LOREE HUERTA MD Jun 29, 2017 10:18
[2017-06-29] MEDS ORDERED: meTOprolol TARTRATE 25 MG (LOPRESSOR) TABLET PO SCH (10:30)
--- NOTE | 2017-06-29 12:01 | Progress Note (SOAP) ---
Subjective Subjective/Events-last exam Afebrile. Had low blood sugar. Mental status much improved and oral intake good. Has remained tachycardic and hypertensive. states he was on lisinopril in past which was changed to amlodipine and metoprolol and over the last period of time, both of those were stopped due to low blood pressure. He continues to have a resting tremor and his is wondering if we can evaluate that. She [facility] but does not feel she has gotten a clear answer. She notes the tremor intermittently over last 3 years, but is getting worse and more continuous. Review of Systems Date Seen by Provider: Jun 29, 2017 Time Seen by Provider: 09:00 Objective Exam Last Set of Vital Signs Vital Signs Date Time Temp Pulse Resp B/P (MAP) Pulse Ox O2 Delivery O2 Flow Rate FiO2 06/29/17 09:00 110 18 168/98 98 Room Air 06/29/17 07:50 98.2 Capillary Refill : Less Than 3 Seconds I&O Intake and Output 06/30/17 00:00 Intake Total 1140 ml Output Total 900 ml Balance 240 ml Intake Oral 1140 ml Output Urine Total 900 ml # Voids 4 General: Alert, No Acute Distress Lungs: Clear to Auscultation, Normal Air Movement Heart: No Murmurs, Other (tachycardic) Neuro: Normal Speech, Other (pill rolling resting tremor of both hands) Psych/Mental Status: Other (oriented to self and location (knows it is a hospital in [place], [place]), month and year) Results/Procedures Lab Laboratory Tests 06/28/17 16:39: Glucometer 113H 06/28/17 19:53: Glucometer 288H 06/29/17 00:04: Glucometer 49*L 06/29/17 00:29: Glucometer 161H 06/29/17 00:59: Glucometer 154H 06/29/17 02:01: Glucometer 136H 06/29/17 03:01: Glucometer 173H 06/29/17 04:03: Glucometer 104 06/29/17 05:19: White Blood Count 12.0H, Red Blood Count 3.09L, Hemoglobin 9.0L, Hematocrit 27L , Mean Corpuscular Volume 88, Mean Corpuscular Hemoglobin 29, Mean Corpuscular Hemoglobin Concent 33, Red Cell Distribution Width 14.2, Platelet Count 294, Mean Platelet Volume 10.6H, Neutrophils (%) (Auto) 74, Lymphocytes (%) (Auto) 15 , Monocytes (%) (Auto) 11, Eosinophils (%) (Auto) 0, Basophils (%) (Auto) 0, Neutrophils # (Auto) 8.9H, Lymphocytes # (Auto) 1.7, Monocytes # (Auto) 1.3H, Eosinophils # (Auto) 0.0, Basophils # (Auto) 0.0, Sodium Level 140, Potassium Level 3.8, Chloride Level 107, Carbon Dioxide Level 19L, Anion Gap 14, Blood Urea Nitrogen 11, Creatinine 1.13, Estimat Glomerular Filtration Rate > 60, BUN/ Creatinine Ratio 10, Glucose Level 139H, Glucometer 145H, Calcium Level 8.8, Phosphorus Level 2.7, Magnesium Level 2.1 06/29/17 06:43: Glucometer 109 06/29/17 07:47: Glucometer 98 06/29/17 08:00: Vancomycin Level Trough 3.3L Microbiology 06/27/17 Blood Culture - Preliminary, Resulted No growth 06/26/17 MRSA Screen - Final, Complete MRSA not isolated Radiology Date of Exam: 06/25/17 CHEST 1 VIEW, AP/PA ONLY EXAM: CHEST 1 VIEW, AP/PA ONLY INDICATION: Glucose problems. COMPARISON: Chest radiograph 01/15/2016. FINDINGS: Normal heart size and pulmonary vascularity. No focal pulmonary opacity, pleural effusion or pneumothorax. No acute osseous findings. No significant change. IMPRESSION: Negative chest. Assessment/Plan Assessment/Plan Plan SEVERE DIABETIC KETOACIDOSIS ADM - on insulin drip protocol with BS decreasing, plan to dc today and then use long acting. will use q6h regular insulin SSI as pt needs to be NPO due to MS changes. patient a long-standing diabetic with marginal control. 06/27 - pt improved; I started his levemir at a cautious dose due to not wanting to bottom him out. however, this appears to not have been enough. we will restart the drip today and then plan to dc it with a nighttime dose of full 15 units. he can have PO intake if he is able to pass a swallow screen. 06/28 Insulin drip d/c overnight per eICU and blood sugar normal to low, will use sliding scale at mealtime for now along with the levemir 15 units and determine if scheduled mealtime dosing needed- he is currently not eating well 06/29 Improved but with low blood sugar overnight, will continue with levemir 15 (received 20 yesterday due to elevated pm blood sugar) and use only sliding scale for now with meals to determine insulin requirements, transfer to floor today ACUTE ON CHRONIC RENAL FAILURE ADM - receiving multiple fluid boluses and rapid fluids per protocl with good response for renal status. per [place] urologist who spoke with nurse, he has stage 3 CKD. 06/27 - much improved, will monitor CHRONIC ANEMIA, LIKELY OF CHRONIC DISEASE VERSUS IRON DEFICIENCY ADM - will monitor, transfuse if hgb <7 06/27 - no transfusion indicated LEUKOCYTOSIS ADM - I do not believe this is infectious. blood cultures have been drawn, negative for now. CXR clear, UA shows no sign of infection. liekly related to DKA. 06/27 - improved despite not having abx. spoke iwth Dr John who recommends empiric treatment for meningitis - vanc and high dose rocephin. will start and appreciate his input. 06/28 - continued improvement and no fever, no clear evidence of infection and mental status improving, will d/c vancomycin today ALTERED MENTAL STATUS ADM - will consult Dr Jhon due to patient's complexities. could be seizure/ status. could also be menigitis though less likely in absence of fever. will observe over next 12h to see if it improves as his metabolic statsu improves. could be drug ingestion as we can't test for K2, etc. 06/27 - improved but slowly. will try to get a CT head today but do not want to sedate. if he is combative, can try low dose haldol. 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 [facility], so she will contact [facility] to discuss referral. DVT PROPH: janinex. Diagnosis/Problems: Clinical Quality Measures DVT/VTE Risk/Contraindication: Risk Factor Score Per Nursin RFS Level Per Nursing on Admit: 4+=Very High NAJMA DAY MD Jun 29, 2017 12:01
[2017-06-29] MEDS: meTOprolol TARTRATE 25 MG (LOPRESSOR) TABLET PO SCH ×2 (12:39→20:18)
[2017-06-29] MEDS: ENOXAPARIN 40 MG/0.4 ML (LOVENOX) SYR SC SCH (12:46)
[2017-06-29] MEDS: ATORVASTATIN 80 MG (LIPITOR) TABLET PO SCH (20:17)
[2017-06-29] MEDS: inSUlin DETERMIR 1 UNIT/0.01 ML (LEVEMIR) CHARGE PER UNIT SQ SCH (20:18)
[2017-06-29] MEDS ORDERED: ACETAMINOPHEN 500 MG TAB (TYLENOL) PO PRN (23:45)
[2017-06-30 00:22] VITALS: BP 131/82
[2017-06-30 04:40] VITALS: BP 144/83
[2017-06-30] MEDS: PANTOPRAZOLE 40 MG (PROTONIX) TAB PO SCH (06:04)
[2017-06-30 06:06] LABS: MEAN PLATELET VOLUME 10.4 FL (7.4-10.4); RED BLOOD COUNT 3.23 10^6/uL (4.35-5.85); RED CELL DISTRIBUTION WIDTH 14.1 % (10.0-14.5); WHITE BLOOD COUNT 11.5 10^3/uL (4.3-11.0)
[2017-06-30 06:24] LABS: ALANINE AMINOTRANSFERASE 22 U/L (0-55); ALBUMIN 3.4 GM/DL (3.2-4.5); ANION GAP 10 MMOL/L (5-14); ASPARTATE AMINO TRANSFERASE 22 U/L (5-34); BILIRUBIN,TOTAL 0.7 MG/DL (0.1-1.0); BLOOD UREA NITROGEN 14 MG/DL (7-18); BUN/CREATININE RATIO 13; CALCIUM 9.5 MG/DL (8.5-10.1); CARBON DIOXIDE 27 MMOL/L (21-32); CHLORIDE 107 MMOL/L (98-107); CREATININE SERUM 1.06 MG/DL (0.60-1.30); GFR ESTIMATED > 60; GLUCOSE 85 MG/DL (70-105); POTASSIUM 3.7 MMOL/L (3.6-5.0); SODIUM 144 MMOL/L (135-145); TOTAL PROTEIN 6.5 GM/DL (6.4-8.2)
[2017-06-30] MEDS: inSUlin ASPART (NovoLOG) 1 UNIT/0.01 ML (CHARGE PER UNIT) SC SCH ×2 (06:29→12:12)
[2017-06-30 06:44] LABS: THYROID STIMULATING HORMONE 1.53 UIU/ML (0.35-4.94)
[2017-06-30 08:00] VITALS: BP 180/100
[2017-06-30] MEDS: meTOprolol TARTRATE 25 MG (LOPRESSOR) TABLET PO SCH (09:55)
[2017-06-30] MEDS: lisINopril 20 MG (ZESTRIL) TAB PO SCH (09:55)
[2017-06-30] MEDS ORDERED: meTOproloL SUCCINATE 50 MG (TOPROL XL) TAB PO NR (11:30)
--- NOTE | 2017-06-30 11:31 | Discharge Summary ---
Diagnosis/Chief Complaint Date of Admission Jun 26, 2017 at 00:06 Date of Discharge Chief Complaint/HPI Chief Complaint/HPI This is an abbreviated H&P due to patient's clinical condition and absence of family.. 56yo male presented to hospital with acute mental status changes and vomiting. In ER, he was found to have DKA and acute renal failure. Per nursing, he has had a radical prostatectomy, and they cannot get a johnson catheter in. Patient typically follows with the [facility] in [place] as well as [facility] in [place]. He has been hospitalized at the [facility] in [place] multiple times. Here in our ICU, Shaheed is totally disoriented and somewhat combative. He is moving in his bed and all he can say is "O God." He does localize to pain but cannot say his name. Discharge Summary-Simple/Stand Consultations Discharge Physical Examination Allergies: Coded Allergies: No Known Drug Allergies (Unverified , 08/24/13) Vitals & I&Os Vital Sign - Last 12Hours Date Time Temp Pulse Resp B/P (MAP) Pulse Ox O2 Delivery O2 Flow Rate FiO2 06/30/17 08:00 Room Air 06/30/17 08:00 97.3 80 20 180/100 100 Hospital Course See final discharge diagnosis. Radiology Reviewed Date of Exam: 06/25/17 CHEST 1 VIEW, AP/PA ONLY EXAM: CHEST 1 VIEW, AP/PA ONLY INDICATION: Glucose problems. COMPARISON: Chest radiograph 01/15/2016. FINDINGS: Normal heart size and pulmonary vascularity. No focal pulmonary opacity, pleural effusion or pneumothorax. No acute osseous findings. No significant change. IMPRESSION: Negative chest. Discharge Instructions to patient/family Please see electronic discharge instructions given to patient. Discharge Medications Reviewed and agree with Discharge Medication list on patient's Discharge Instruction sheet Clinical Quality Measures DVT/VTE Risk/Contraindication: Risk Factor Score Per Nursin RFS Level Per Nursing on Admit: 4+=Very High MARCELL HASSAN MD Jun 30, 2017 11:31
--- NOTE | 2017-06-30 11:32 | Progress Note-Cardiology ---
Cardiology SOAP Progress Note Subjective: Sitting up in a chair at the bedside. Spouse at the bedside. He denies any c/ o CP, dyspnea, palpitations, syncope or near syncope. C/O generalized weakness. Wants to go home. Objective: I&O/Vital Signs Vital Sign - Last 12Hours 06/30/17 06/30/17 06/30/17 06/30/17 00:22 01:00 04:40 08:00 Temp 98.1 97.4 97.3 Pulse 77 84 85 80 Resp 20 18 20 B/P (MAP) 131/82 144/83 180/100 Pulse Ox 99 98 100 O2 Delivery Room Air Room Air Room Air 06/30/17 08:00 O2 Delivery Room Air Weight (Pounds): 143 Weight (Ounces): 5.0 Weight (Calculated Kilograms): 65.333775 Constitutional: AAO x 3 Respiratory: No accessory muscle use, No respiratory distress, lungs clear to auscultation Cardiovascular: regular rate-rhythm, No JVD, S1 and S2 Gastrointestional: No tender, soft, audible bowel sounds Extremities: no lower extremity edema bilateral Neurologic/Psychiatric: grossly intact Skin: No ulcerations Results/Procedures: Labs Laboratory Tests 06/29/17 11:51: Glucometer 271H 06/29/17 15:32: Glucometer 142H 06/29/17 19:51: Glucometer 319H 06/30/17 04:34: Glucometer 77 06/30/17 05:54: White Blood Count 11.5H, Red Blood Count 3.23L, Hemoglobin 9.5L, Hematocrit 29L , Mean Corpuscular Volume 89, Mean Corpuscular Hemoglobin 29, Mean Corpuscular Hemoglobin Concent 33, Red Cell Distribution Width 14.1, Platelet Count 306, Mean Platelet Volume 10.4, Sodium Level 144, Potassium Level 3.7, Chloride Level 107, Carbon Dioxide Level 27, Anion Gap 10, Blood Urea Nitrogen 14, Creatinine 1.06, Estimat Glomerular Filtration Rate > 60, BUN/Creatinine Ratio 13, Glucose Level 85, Calcium Level 9.5, Total Bilirubin 0.7, Aspartate Amino Transf (AST/SGOT) 22, Alanine Aminotransferase (ALT/SGPT) 22, Alkaline Phosphatase 122, Total Protein 6.5, Albumin 3.4, Thyroid Stimulating Hormone ( TSH) 1.53 Microbiology 06/27/17 Blood Culture - Preliminary, Resulted No growth 06/26/17 MRSA Screen - Final, Complete MRSA not isolated Laboratory Tests 06/29/17 05:19 06/30/17 05:54 A/P: Assessment: Frequent PVCs, better at this time Hypertension - not controlled Diabetic ketoacidosis, better at this time, being managed by primary care physician, improving Electrolyte abnormality, hypokalemia, hypomagnesemia, improved Status post acute on chronic renal failure - improved Leukocytosis - management per medical services Change in mental status, confusion, lethargy, combative, improving Depression, anxiety Hyperlipidemia Plan: Blood pressure not well controlled We will increase BB and change to long-acting SUHA (-) as per medical services Monitor lab closely LORIN SANON Jun 30, 2017 11:32
[2017-06-30] MEDS ORDERED: METO-333 PO (11:37)
[2017-06-30] MEDS ORDERED: LISI-552 PO (11:37)
[2017-06-30] MEDS ORDERED: INSU100V5 SQ (11:37)
[2017-06-30] MEDS ORDERED: INSU100I14 SQ (11:37)
--- NOTE | 2017-06-30 11:48 | Discharge Instructions ---
Discharge [facility] Discharge Medications New, Converted or Re-Newed RX: Call to Patients Pharmacy New Medications: Insulin Determir (Levemir) 1,000 Units/10 Ml Soln 18 UNIT SQ HS for 30 Days, EA Lisinopril (Lisinopril) 20 Mg Tablet 20 MG PO DAILY, #30 TAB Metoprolol Tartrate (Metoprolol Tartrate) 25 Mg Tablet 25 MG PO BID for 30 Days, #60 TAB Changed Medications: Insulin Aspart (Novolog Flexpen) 300 Units/3 Ml Solution 5 UNITS SQ AC for 30 Days, EA (Changed from: 11 UNITS; BEFORE BREAKFAST) Continued Medications: Atorvastatin Calcium (Atorvastatin Calcium) 80 Mg Tablet 40 MG PO HS, TAB TAKES 1/2 (80MG) TABLET Brimonidine Tartrate (Brimonidine Tartrate) 5 Ml Btl 1 DROP OU BID, EA Bupropion HCl (Bupropion HCl) 75 Mg Tablet 75 MG PO BID, TAB Cholecalciferol (Vitamin D3) (Vitamin D3) 1,000 Unit Capsule 1000 UNIT PO DAILY, CAP Cyanocobalamin (Cyanocobalamin Injection) 1,000 Mcg/Ml Inj 1000 MCG IJ EVERY 2 WEEKS, VIAL Dextrose (Glucose) 4 Gm Tab.chew 16 GM PO UD PRN for HYPOGLYCEMIA, TAB CHEW 4 (4GM) TABLETS NEEDED FOR LOW BLOOD SUGAR, REPEAT DOSE IN 15 MINUTES AFTER FIRST DOSE IF HYPOGLYCEMIA CONTINUES Dorzolamide HCl/Timolol Maleat (Dorzolamide-Timolol Eye Drops) 10 Ml Drops 1 DROP OU BID, DROPS Duloxetine HCl (Duloxetine HCl) 30 Mg Capsule.dr 90 MG PO DAILY, CAP TAKES 3 (30MG) CAPSULES Ferrous Sulfate (Ferrous Sulfate) 325 Mg Tablet 325 MG PO TID, TAB Folic Acid (Folic Acid) 1 Mg Tablet 1 MG PO DAILY, TAB Pantoprazole Sodium (Protonix) 20 Mg Tablet.dr 20 MG PO DAILY, TAB Pregabalin (Lyrica) 100 Mg Capsule 100 MG PO TID, CAP Urea (Urea) 85 Gm Cream..g. TP BID PRN for SORES, TUBE Discontinued Medications: Insulin Aspart (Novolog Flexpen) 300 Units/3 Ml Solution 13 UNITS SQ BEFORE LUNCH+SUPPER, EA Insulin Detemir (Levemir Flextouch) 100 Unit/1 Ml Insuln.pen 27 UNITS SQ HS, EA Oxybutynin Chloride (Oxybutynin Chloride) 5 Mg Tablet 5 MG PO BID, TAB Trazodone HCl (Trazodone HCl) 50 Mg Tablet 150 MG PO HS, TAB TAKES 3 (50MG) TABLETS Patient Instructions Goal/Follow Up Appt: You need to call and make appt with you PCP within the next 2 weeks and with Urology as soon as they can get you in. Patient Instructions: - Please review you medication list closely, Your insulin doses have been adjusted due to hypoglycemia, please call your PCP if you have blood sugars above 200 x 2 readings - Make sure to check you blood sugar reading before each meal and fasting in the morning Return to The Hospital For: - Chest pain - Shortness of breath - Fever/Chills Activity & Diet Discharge Diet: ADA Diet Activity as Tolerated: Yes Copy Copies To 1: MARCELL HASSAN MD, HOLLY R MD Jun 30, 2017 11:48
[2017-06-30 12:00] VITALS: BP 180/87
[2017-06-30] MEDS: ENOXAPARIN 40 MG/0.4 ML (LOVENOX) SYR SC SCH (12:11)
[2017-06-30] MEDS ORDERED: GADOBUTROL 7.5 MMOL/7.5 ML (GADAVIST) VIAL IV ONE (14:15)
--- NOTE | 2017-06-30 15:01 | Diagnostic Imaging Report ---
PROCEDURE: MR imaging of the brain with and without contrast. TECHNIQUE: Multiplanar, multisequence MR imaging of the brain was performed with and without contrast. INDICATION: Altered mental status. Trauma. 6 mL of Gadavist is administered intravenously. FINDINGS: There is no diffusion restriction to suggest an acute infarct or other diffusion abnormality. There is an 8 mm T2 bright signal lesion within the basal ganglia on the right side. This might relate to a prominent perivascular space. There is periventricular and deep white matter T2 hyperintense signal seen. This is not associated with mass effect or postcontrast enhancement and is likely related to chronic microvascular ischemic changes. In the appropriate clinical setting, a demyelinating process or vasculitis could be considered. The brainstem demonstrates normal signal and no abnormality is seen in the cerebellum. The pituitary gland is normal in size. No hypothalamic or pineal region mass. No hydrocephalus. No extra-axial fluid collection is seen. The internal auditory canals and inner ear structures appear symmetric. Central vascular flow-voids appear grossly unremarkable. There is a minimal amount of secretions seen in the right maxillary sinus and mild maxillary sinus wall thickening is seen. IMPRESSION: There is nonspecific periventricular, and deep white matter T2 hyperintense signal lesions without mass effect or enhancement favored to be related to chronic microvascular ischemic changes. No acute infarct or enhancing mass. Dictated by: Dictated on workstation # [id number]
[2017-07-01] MEDS ORDERED: meTOproloL SUCCINATE 50 MG (TOPROL XL) TAB PO SCH (09:00)
--- NOTE | 2017-07-02 09:15 | ELECTROENCEPHALOPATHY REPORT ---
DATE OF SERVICE: 06/27/2017 ELECTROENCEPHALOGRAM: The patient is a 56-year-old male who was admitted with altered mental status. He was unable to answer any questions. The patient was still confused during this study. He did not lie still and he moved quite a bit. The patient did finally relax after the first 20 minutes of the reading. The background rhythm consisted of up to 8 Hz, 40 to 50 microvolts in amplitude, bilaterally symmetrical over the vertex region, which was reactive to eye opening. Intermixed was no epileptiform activity. Movement and muscle artifacts were present. The patient was awake, drowsy and asleep during this recording. Hyperventilation was not performed. Intermittent photic stimulation was done at various flash frequencies and no photic driving response was seen. IMPRESSION: This EEG is within normal limits in awake and asleep state. No clear epileptiform activity is seen. A normal EEG does not exclude the diagnosis of seizure or epilepsy. Job ID: [id number] DocumentID: [id number] Dictated Date: 07/02/2017 07:23:41 Data Manager Date: 07/02/2017 08:19:13 Dictated By: NOHEMI PATRICIO MD
== END 2017-06-30 14:50 | disposition home or self-care (01) | DRG 638 ==
LOC: EDUNIT# 23:04 → ER 23:06 → ICU 06-26 00:06 → 4TH 06-29 14:15
PROVIDERS: ADMIT Pediatrics; ATTEND Pediatrics
DX: E13.10 Other specified diabetes mellitus with ketoacidosis without coma (principal); N17.9 Acute kidney failure, unspecified; E87.2 Acidosis; I12.9 Hypertensive chronic kidney disease with stage 1 through stage 4 chronic kidney disease, or unspecified chronic kidney disease; N18.9 Chronic kidney disease, unspecified; N32.0 Bladder-neck obstruction; E11.40 Type 2 diabetes mellitus with diabetic neuropathy, unspecified; E11.319 Type 2 diabetes mellitus with unspecified diabetic retinopathy without macular edema; H40.9 Unspecified glaucoma; E11.43 Type 2 diabetes mellitus with diabetic autonomic (poly)neuropathy; D63.8 Anemia in other chronic diseases classified elsewhere; D50.9 Iron deficiency anemia, unspecified; F32.9 Major depressive disorder, single episode, unspecified; F41.9 Anxiety disorder, unspecified; F29 Unspecified psychosis not due to a substance or known physiological condition; E87.6 Hypokalemia; E83.42 Hypomagnesemia; K21.9 Gastro-esophageal reflux disease without esophagitis; M19.91 Primary osteoarthritis, unspecified site; I49.3 Ventricular premature depolarization; R25.1 Tremor, unspecified; E78.00 Pure hypercholesterolemia, unspecified; Z91.19 Patient's noncompliance with other medical treatment and regimen; Z79.4 Long term (current) use of insulin; Z85.46 Personal history of malignant neoplasm of prostate; Z90.79 Acquired absence of other genital organ(s); Z87.891 Personal history of nicotine dependence
CPT/HCPCS: 36415; 36569; 70553; 71010; 76937; 80048; 80053; 80202; 80306; 81000; 82140; 82390; 82805; 82962; 83036; 83605; 83735; 84100; 84443; 84484; 85007; 85025; 85027; 85610; 85730; 86141; 87040; 87081; 93005; 93041; 94760; 95819; 96361; 96374; 96375

== ENCOUNTER 2017-09-17 15:14 | Emergency (ER) | payer MEDICARE, OTHER ==
[~2017-09-17] VITALS: Ht 167.6 cm; Wt 59.0 kg
[~2017-09-17 15:14] MED LIST changes: +ATOR80TA76 PO; +CHOL10007 PO; +CNC1KV IJ; +DEXT4TAB PO; +DORZ10DR24 OU; +DULO30CA48 PO; +FERR-74 PO; +FOLI1TAB24 PO; +INSU100V5 SQ; +LISI-552 PO; -METO-270 PO; +METO-333 PO; +METO-387 PO; +MOXI3DRO11 OP; +OXYB5TAB9 PO; +PANT20TA2 PO; +PLTR10OP OP; +PRED5DRO17 OP; +PREG100C PO; +UREA85CR23 TP
--- OUTSIDE RECORDS SUMMARY | 2017-09-17 15:19 | XMS REPORT | Clinical Summary ---
Author Author [facility] Organization [facility] Address Unknown Phone Unavailable Care Team Providers Care [employer] Developer Name Role Phone PCP Unavailable Source Comments Some departments are not documenting in the electronic medical record. If you do not see the information that you expected, contact Release of Information in the Health Information Management department at [phone] for further assistance in locating additional records.[facility] Allergies No Known Allergies Current Medications Prescription [...] incomplete bladder emptying 01/15/2016 Diabetes (HCC) 01/15/2016 Proliferative diabetic retinopathy(362.02) 01/14/2013 Last Assessment [...] Problems Problem Noted Date Resolved Date Sepsis ([facility]) 01/15/2016 01/17/2016 Severe sepsis ([facility]) 01/15/2016 01/17/2016 LATISHA (acute kidney injury) ([facility]) 01/15/2016 01/17/2016 High anion gap [...] 1975 COLORECTAL CANCER 2008 SCREENING INFLUENZA VACCINE 05/20/2017 Results Not on filefrom Last 3 Months
[2017-09-17] MEDS ORDERED: NS IV 1000 ML 1,000 ML IV ONE (15:47)
--- NOTE | 2017-09-17 15:54 | ED General ---
General Chief Complaint: Glucose Problems Stated Complaint: HIGH BLOOD SUGAR;DIARRHEA Source of Information: Patient, Other Exam Limitations: No Limitations History of Present Illness Time Seen by Provider: 15:43 Initial Comments Patient has ER by private conveyance with a chief complaint that he has had over a week now of copious black diarrhea. He says he has had off and on diarrhea for the past several years and is had a colonoscopy into a upper EGDs because he has had anemia but they've not found a source of bleeding. He is on iron presently. He has tried Imodium and takes about 6 tablets a day but it does not slow the diarrhea down. Now he feels weakness and malaise and tired but he doesn't have any energy. He denies any dysarthria, facial asymmetry, numbness tingling. He has had some falls lately because his left leg will give out from underneath him. Denies any pain anywhere but he feels uncomfortable stomach, especially the left upper quadrant. He has had no surgeries on his abdomen. He doesn't history of prostatic cancer and has had surgeries for that and surgery on his jaw. Patient is also had a sore throat last several days. No fevers or chills. Allergies and Home Medications Allergies Coded Allergies: No Known Drug Allergies (Unverified , 08/24/13) Home Medications Atorvastatin Calcium 80 Mg Tablet, 40 MG PO HS, (Reported) TAKES 1/2 (80MG) TABLET Brimonidine Tartrate 5 Ml Btl, 1 DROP OU BID, (Reported) Bupropion HCl 75 Mg Tablet, 75 MG PO BID, (Reported) Cholecalciferol (Vitamin D3) 1,000 Unit Capsule, 1,000 UNIT PO DAILY, (Reported) Ciprofloxacin HCl 500 Mg Tablet, 500 MG PO BID for 3 Days, #6 Ref 0 Prescribed by: RITIKA LOYOLA on 09/17/17 1721 Cyanocobalamin 1,000 Mcg/Ml Inj, 1,000 MCG IJ EVERY 2 WEEKS, (Reported) Dextrose 4 Gm Tab.chew, 16 GM PO UD PRN for HYPOGLYCEMIA, (Reported) CHEW 4 (4GM) TABLETS NEEDED FOR LOW BLOOD SUGAR, REPEAT DOSE IN 15 MINUTES AFTER FIRST DOSE IF HYPOGLYCEMIA CONTINUES Diphenoxylate HCl/Atropine 1 Each Tablet, 1-2 EACH PO QID for 7 Days, #45 Ref 0 Prescribed by: RITIKA LOYOLA on 09/17/17 1727 Dorzolamide HCl/Timolol Maleat 10 Ml Drops, 1 DROP OU BID, (Reported) Duloxetine HCl 30 Mg Capsule.dr, 90 MG PO DAILY, (Reported) TAKES 3 (30MG) CAPSULES Ferrous Sulfate 325 Mg Tablet, 325 MG PO TID, (Reported) Folic Acid 1 Mg Tablet, 1 MG PO DAILY, (Reported) Insulin Aspart 300 Units/3 Ml Solution, 5 UNITS SQ AC for 30 Days Prescribed by: MARCELL HASSAN on 06/30/17 1137 Insulin Determir 1,000 Units/10 Ml Soln, 18 UNIT SQ HS for 30 Days Prescribed by: MARCELL HASSAN on 06/30/17 1137 Lisinopril 20 Mg Tablet, 20 MG PO DAILY, #30 Prescribed by: MARCELL HASSAN on 06/30/17 1137 Metoprolol Tartrate 25 Mg Tablet, 25 MG PO BID for 30 Days, #60 Prescribed by: MARCELL HASSAN on 06/30/17 1137 Pantoprazole Sodium 20 Mg Tablet.dr, 20 MG PO DAILY, (Reported) Pregabalin 100 Mg Capsule, 100 MG PO TID, (Reported) Urea 85 Gm Cream..g., TP BID PRN for SORES, (Reported) Constitutional: No chills, No diaphoresis, malaise EENTM: No ear pain, No eye pain Respiratory: No cough, No short of breath Cardiovascular: No chest pain, No edema Gastrointestinal: No abdominal pain, No constipation, diarrhea, nausea, No vomiting Genitourinary: No discharge, No dysuria Musculoskeletal: No back pain, No joint pain, No joint swelling Skin: No pruritus, No rash Psychiatric/Neurological: Denies Headache, Denies Numbness, Denies Paresthesia Past [id number]-[id number] Hx Patient Social History Alcohol Use: Denies Use Recreational Drug Use: No Smoking Status: Former Smoker Type Used: Cigarettes Former Smoker, Quit: Oct 20, 2014 2nd Hand Smoke Exposure: No Recent Foreign Travel: No Contact w/Someone Who Travel: No Recent Hopitalizations: No Immunizations Up To Date Tetanus Booster (TDap): Less than 5yrs PED Vaccines UTD: No Date of Pneumonia Vaccine: Jul 17, 2015 Date of Influenza Vaccine: Jul 17, 2015 Seasonal Allergies Seasonal Allergies: No Surgeries History of Surgeries: Yes (HEART CATH/ JAW SURGERY) Surgeries: Cardiac, Prostatectomy Respiratory History of Respiratory Disorde: No (fmr smkr) Currently Using CPAP: No Currently Using BIPAP: No Cardiovascular History of Cardiac Disorders: Yes (heart cath) Cardiac Disorders: High Cholesterol, Hypertension Neurological History of Neurological Disord: Yes Neurological Disorders: Neuropathy Reproductive System Hx Reproductive Disorders: No Sexually Transmitted Disease: No HIV/AIDS: No Genitourinary Genitourinary Disorders: Prostate Problems Gastrointestinal History of Gastrointestinal Di: Yes Gastrointestinal Disorders: Chronic Diarrhea, C-Diff Musculoskeletal History of Musculoskeletal Dis: Yes (CHRONIC NECK AND BACK PAIN ) Musculoskeletal Disorders: Arthritis, Chronic Back Pain Endocrine History of Endocrine Disorders: Yes Endocrine Disorders: Diabetes, Insulin dep HEENT HEENT Disorders: Glaucoma Loss of Vision: Right Cancer History of Cancer: Yes Cancer: Prostate Type of Tx Receive: Surgical Intervention Psychosocial History of Psychiatric Problem: Yes Behavioral Health Disorders: Anxiety, Depression Integumentary History of Skin or Integumenta: No Blood Transfusions History of Blood Disorders: No Adverse Reaction to a Blood Tr: No Family Medical History Family Medial History: Family history: Hypertension 03 FATHER, Onset:40's - 50 03 MOTHER, Onset:40's - 50 History of - respiratory disease 03 MOTHER, Onset:50's - 60 Myocardial infarction 03 FATHER 03 MOTHER No Family History of: Abdominal aortic aneurysm [place] disease Alcoholism Aphasia Cancer Cancer of colon Cataract Chest pain Congenital heart disease Congestive heart failure Cystic fibrosis Dementia Dysphagia Family history: Allergy Family history: Alzheimer's disease Family history: Arthritis Family history: Asthma Family history: Breast disease Family history: Cardiovascular disease Family history: Coronary thrombosis Family history: Diabetes mellitus Family history: Gastrointestinal disease Family history: Glaucoma Family history: Osteoporosis Family history: Thyroid disorder Headache Hearing loss Heart disease Hereditary disease History of - anemia History of - disorder History of drug abuse Human immunodeficiency virus (HIV) seropositivity Hypercholesterolemia Infertile Kidney disease Malignant neoplasm of lung Parkinson's disease Prostate cancer Psychotic disorder Seizure disorder Stroke Tuberculosis Visual impairment Physical Exam Vital Signs Vital Sign - Last 12Hours 09/17/17 15:27 Temp 97.2 Pulse 90 Resp 18 B/P (MAP) 129/59 Pulse Ox 96 Capillary Refill : General Appearance: Mild Distress, Thin Eyes: Bilateral Eye Normal Inspection, Bilateral Eye PERRL, Bilateral Eye EOMI HEENT: PERRL/EOMI, Normal ENT Inspection, Pharynx Normal Neck: Normal Inspection, Non Tender, Supple Respiratory: Chest Non Tender, Lungs Clear, Normal Breath Sounds, No Accessory Muscle Use, No Respiratory Distress Cardiovascular: Regular Rate, Rhythm, No Edema, No Gallop Gastrointestinal: Normal Bowel Sounds, Non Tender, Soft Genital/Rectal: Normal Rectal Exam, Normal Rectal Tone, Other (firm nodular prostatic tissue. Rectal vault without stool. No mass or engorged internal hemorrhoids palpable.) Extremity: Normal Capillary Refill, Non Tender, No Calf Tenderness, No Pedal Edema Neurologic/Psychiatric: Alert, Oriented x3 Skin: Warm/Dry, Pallor Progress/Results/Core Measures Suspected Sepsis SIRS Temperature: Pulse: Respiratory Rate: Laboratory Tests 09/17/17 15:30: White Blood Count 13.8H Blood Pressure / Mean: Laboratory Tests 09/17/17 15:30: Creatinine 1.61H, Platelet Count 307, Total Bilirubin 0.6 Results/Orders Lab Results Laboratory Tests Test 09/17/17 15:30 09/17/17 16:00 Range/Units White Blood Count 13.8 H 4.3-11.0 10^3/uL Red Blood Count 3.55 L 4.35-5.85 10^6/uL Hemoglobin 10.4 L 13.3-17.7 G/DL Hematocrit 30 L 40-54 % Mean Corpuscular Volume 86 80-99 FL Mean Corpuscular Hemoglobin 29 25-34 PG Mean Corpuscular Hemoglobin Concent 34 32-36 G/DL Red Cell Distribution Width 12.9 10.0-14.5 % Platelet Count 307 130-400 10^3/uL Mean Platelet Volume 11.2 H 7.4-10.4 FL Neutrophils (%) (Auto) 75 42-75 % Lymphocytes (%) (Auto) 16 12-44 % Monocytes (%) (Auto) 9 0-12 % Eosinophils (%) (Auto) 0 0-10 % Basophils (%) (Auto) 0 0-10 % Neutrophils # (Auto) 10.3 H 1.8-7.8 X 10^3 Lymphocytes # (Auto) 2.2 1.0-4.0 X 10^3 Monocytes # (Auto) 1.2 H 0.0-1.0 X 10^3 Eosinophils # (Auto) 0.0 0.0-0.3 10^3/uL Basophils # (Auto) 0.0 0.0-0.1 10^3/uL Neutrophils % (Manual) 64 % Lymphocytes % (Manual) 20 % Monocytes % (Manual) 7 % Eosinophils % (Manual) 1 % Basophils % (Manual) 0 % Band Neutrophils 8 % Blood Morphology Comment NORMAL Sodium Level 138 135-145 MMOL/L Potassium Level 3.5 L 3.6-5.0 MMOL/L Chloride Level 105 98-107 MMOL/L Carbon Dioxide Level 24 21-32 MMOL/L Anion Gap 9 5-14 MMOL/L Blood Urea Nitrogen 18 7-18 MG/DL Creatinine 1.61 H 0.60-1.30 MG/DL Estimat Glomerular Filtration Rate 44 BUN/Creatinine Ratio 11 Glucose Level 330 H 70-105 MG/DL Calcium Level 9.7 8.5-10.1 MG/DL Magnesium Level 1.2 L 1.8-2.4 MG/DL Total Bilirubin 0.6 0.1-1.0 MG/DL Aspartate Amino Transf (AST/SGOT) 11 5-34 U/L Alanine Aminotransferase (ALT/SGPT) 12 0-55 U/L Alkaline Phosphatase 158 H 40-136 U/L Total Protein 7.5 6.4-8.2 GM/DL Albumin 3.6 3.2-4.5 GM/DL Group A Streptococcus Screen NEGATIVE NEGATIVE My Orders Orders - RITIKA LOYOLA Cbc With Automated Diff (09/17/17 15:47) Comprehensive Metabolic Panel (09/17/17 15:47) Magnesium (09/17/17 15:47) Saline Lock/Iv-Start (09/17/17 15:47) Ns Iv 1000 Ml (Sodium Chloride 0.9%) (09/17/17 15:47) Occult Blood Stool (09/17/17 15:56) Orthostatic Vital Signs (Adult (09/17/17 15:56) Rapid Strep A Screen (09/17/17 15:56) Lactated Ringers (Lr 1000 Ml Iv Solution (09/17/17 16:30) Magnesium Oxide Tablet (Mag Ox Tablet) (09/17/17 16:30) Manual Differential (09/17/17 15:30) Medications Given in ED Current Medications Medications Dose Ordered Sig/Anitra Route Start Time Stop Time Status Last Admin Dose Admin Lactated Ringer's 1,000 ml @ 1,000 mls/hr Q1H ONCE IV 09/17/17 16:30 09/17/17 17:29 DC 09/17/17 16:45 1,000 MLS/HR Magnesium Oxide 400 mg ONCE ONCE PO 09/17/17 16:30 09/17/17 16:32 DC 09/17/17 16:45 400 MG Sodium Chloride 1,000 ml @ 0 mls/hr Q0M ONCE IV 09/17/17 15:47 09/17/17 15:49 DC 09/17/17 15:55 1,000 MLS/HR Vital Signs/I&O Vital Sign - Last 12Hours 09/17/17 09/17/17 15:27 16:02 Temp 97.2 Pulse 90 74 82 81 Resp 18 B/P (MAP) 129/59 139/66 (90) 118/73 (88) 110/81 (91) Pulse Ox 96 Capillary Refill : Progress Note #1: Time: 15:55 Progress Note Obtain basic lab and a set of orthotic vitals as well as a rapid strep for his sore throat. CBC to check the Status of his anemia at this time. We can try and help him with his diarrhea with Lomotil outpatient. His black stools may be due to the iron he's recently started. We'll get a fecal occult blood test. Progress Note #2: Time: 16:40 Progress Note Hemoglobin is 10.4 which is low however is better than it was in the past. He's perked up a little bit with the IV fluids and his creatinine is mildly elevated so we'll give him another bag of fluids. This would give him some more potassium and to the lactated Ringer's. We will also give him some magnesium by mouth. Rapid strep was negative. Fecal occult by rectal exam. No gross blood. Stool is loam colored. Progress Note #3: Time: 17:16 Progress Note Physical blood test was negative. Reasonable conclude that this may just be a colitis so we'll start him on some ciprofloxacin trial outpatient therapy we'll get some fluids on board. We'll also let him have some Lomotil and follow-up in one to 2 days before the weekend with his PCP. 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 Decision time for Depature: 17:18 Referrals: LULU FLOWERS (PCP) Primary Care Physician Patient Instructions: Viral Gastroenteritis, Adult (DC) Add. Discharge Instructions: Obtain probiotics and take one to 2 tablets twice a day. 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 Drink plenty of fluids and half strength sugar-free Gatorade. Eat a bland diet of bananas, rice , applesauce, toast etc. Slowly advance your diet towards normal as you tolerated. Try to follow up with your primary care physician before the weekend or if not possible then follow up early next week. All discharge instructions reviewed with patient and/or family. Voiced understanding. Scripts Diphenoxylate HCl/Atropine (Lomotil 2.5-0.025 mg Tablet) 1 Each Tablet 1-2 EACH PO QID for 7 Days, #45 TAB 0 Refills Prov: RITIKA LOYOLA 09/17/17 Ciprofloxacin HCl (Ciprofloxacin HCl) 500 Mg Tablet 500 MG PO BID for 3 Days, #6 TAB 0 Refills Prov: RITIKA LOYOLA 09/17/17 RITIKA LOYOLA Sep 17, 2017 15:54
[2017-09-17 15:56] LABS: BASOPHILS % (AUTO) 0 % (0-10); EOSINOPHILS % (AUTO) 0 % (0-10); LYMPHOCYTES # (AUTO) 2.2 X 10^3 (1.0-4.0); LYMPHOCYTES % (AUTO) 16 % (12-44); MEAN CORPUSCULAR HEMOGLOBIN 29 PG (25-34); MEAN CORPUSCULAR HGB CONC 34 G/DL (32-36); MEAN CORPUSCULAR VOLUME 86 FL (80-99); MEAN PLATELET VOLUME 11.2 FL (7.4-10.4); MONOCYTES # (AUTO) 1.2 X 10^3 (0.0-1.0); MONOCYTES % (AUTO) 9 % (0-12); NEUTROPHILS # (AUTO) 10.3 X 10^3 (1.8-7.8); NEUTROPHILS % (AUTO) 75 % (42-75); PLATELET COUNT 307 10^3/uL (130-400); RED BLOOD COUNT 3.55 10^6/uL (4.35-5.85); RED CELL DISTRIBUTION WIDTH 12.9 % (10.0-14.5); WHITE BLOOD COUNT 13.8 10^3/uL (4.3-11.0)
[2017-09-17 16:02] VITALS: BP_SYST 110; BP_SYST 118; BP_SYST 139; BP_DIAS 66; BP_DIAS 73; BP_DIAS 81
[2017-09-17 16:06] LABS: ALBUMIN 3.6 GM/DL (3.2-4.5); BILIRUBIN,TOTAL 0.6 MG/DL (0.1-1.0); CALCIUM 9.7 MG/DL (8.5-10.1); CREATININE SERUM 1.61 MG/DL (0.60-1.30); MAGNESIUM 1.2 MG/DL (1.8-2.4); POTASSIUM 3.5 MMOL/L (3.6-5.0); TOTAL PROTEIN 7.5 GM/DL (6.4-8.2)
[2017-09-17] MEDS ORDERED: LACTATED RINGERS 1,000 ML IV ONE (16:30)
[2017-09-17] MEDS ORDERED: MAGNESIUM OXIDE (MAG-OX)400 MG TAB PO ONE (16:30)
[2017-09-17 16:32] LABS: BAND NEUTROPHILS 8 %; BASOPHILS % (MANUAL) 0 %; EOSINOPHILS % (MANUAL) 1 %; LYMPHOCYTES % (MANUAL) 20 %; NEUTROPHILS % (MANUAL) 64 %
[2017-09-17] MEDS ORDERED: CIPR500T4 PO (17:21)
[2017-09-17] MEDS ORDERED: DIPH1TAB PO (17:27)
[2017-09-17 18:21] VITALS: BP 110/81
== END 2017-09-17 18:21 | disposition home or self-care (01) ==
LOC: EDUNIT# 15:14 → ER 15:15
DX: K52.9 Noninfective gastroenteritis and colitis, unspecified (principal); E11.65 Type 2 diabetes mellitus with hyperglycemia; E11.40 Type 2 diabetes mellitus with diabetic neuropathy, unspecified; E87.6 Hypokalemia; E83.42 Hypomagnesemia; F41.9 Anxiety disorder, unspecified; F32.9 Major depressive disorder, single episode, unspecified; Z79.4 Long term (current) use of insulin; Z87.891 Personal history of nicotine dependence; Z90.79 Acquired absence of other genital organ(s)
CPT/HCPCS: 36415; 80053; 83735; 85007; 85025; 85027; 87430

== ENCOUNTER 2017-11-07 12:46 | Emergency (ER) | payer MEDICARE ==
[~2017-11-07] VITALS: Ht 167.6 cm; Wt 59.0 kg
[~2017-11-07 12:46] MED LIST changes: +ACHD5005 PO; +CIPR500T4 PO; +DIPH1TAB PO; -FERR-74 PO; +FERR325T18 PO; -HYDR-3812 PO
--- OUTSIDE RECORDS SUMMARY | 2017-11-07 12:51 | XMS REPORT | Clinical Summary ---
Author Author [facility] Organization [facility] Address Unknown Phone Unavailable Care Team Providers Care Resin Painter Name Role Phone PCP Unavailable Source Comments Some departments are not documenting in the electronic medical record. If you do not see the information that you expected, contact Release of Information in the Health Information Management department at [phone] for further assistance in locating additional records.[facility] Allergies No Known Allergies Current Medications Prescription [...] Problems Problem Noted Date Resolved Date Sepsis ([facility]) 01/15/2016 01/17/2016 Severe sepsis ([facility]) 01/15/2016 01/17/2016 LATISHA (acute kidney injury) ([facility]) 01/15/2016 01/17/2016 High anion gap [...]
--- NOTE | 2017-11-07 15:19 | ED General ---
General Chief Complaint: Lower Extremity Stated Complaint: SORES ON TOES-RT FOOT TURNING RED-DIABETIC Nursing Triage Note: Pt c/o sore to R foot between 2nd and 3rd toe x4 days. Pt is diabetic. Nursing Sepsis Screen: No Definite Risk Source of Information: Patient, Spouse Exam Limitations: No Limitations History of Present Illness Date Seen by Provider: Nov 07, 2017 Time Seen by Provider: 15:19 Allergies and Home Medications Allergies Uncoded Allergies: LISINIOPRIL (Adverse Reaction, Unknown, 11/07/17) HYPOTENSION Home Medications Atorvastatin Calcium 80 Mg Tablet, 40 MG PO HS, (Reported) TAKES 1/2 (80MG) TABLET Brimonidine Tartrate 5 Ml Btl, 1 DROP OU BID, (Reported) Bupropion HCl 75 Mg Tablet, 75 MG PO BID, (Reported) Cholecalciferol (Vitamin D3) 1,000 Unit Capsule, 1,000 UNIT PO DAILY, (Reported) Ciprofloxacin HCl 500 Mg Tablet, 500 MG PO BID for 3 Days, #6 Ref 0 Prescribed by: RITIKA LOYOLA on 09/17/17 1721 Cyanocobalamin 1,000 Mcg/Ml Inj, 1,000 MCG IJ EVERY 2 WEEKS, (Reported) Dextrose 4 Gm Tab.chew, 16 GM PO UD PRN for HYPOGLYCEMIA, (Reported) CHEW 4 (4GM) TABLETS NEEDED FOR LOW BLOOD SUGAR, REPEAT DOSE IN 15 MINUTES AFTER FIRST DOSE IF HYPOGLYCEMIA CONTINUES Diphenoxylate HCl/Atropine 1 Each Tablet, 1-2 EACH PO QID for 7 Days, #45 Ref 0 Prescribed by: RITIKA LOYOLA on 09/17/17 1727 Dorzolamide HCl/Timolol Maleat 10 Ml Drops, 1 DROP OU BID, (Reported) Duloxetine HCl 30 Mg Capsule.dr, 90 MG PO DAILY, (Reported) TAKES 3 (30MG) CAPSULES Ferrous Sulfate 325 Mg Tablet, 325 MG PO TID, (Reported) Folic Acid 1 Mg Tablet, 1 MG PO DAILY, (Reported) Insulin Aspart 300 Units/3 Ml Solution, 5 UNITS SQ AC for 30 Days Prescribed by: MARCELL HASSAN on 06/30/17 1137 Insulin Determir 1,000 Units/10 Ml Soln, 18 UNIT SQ HS for 30 Days Prescribed by: MARCELL HASSAN on 06/30/17 1137 Lisinopril 20 Mg Tablet, 20 MG PO DAILY, #30 Prescribed by: MARCELL HASSAN on 06/30/17 1137 Metoprolol Tartrate 25 Mg Tablet, 25 MG PO BID for 30 Days, #60 Prescribed by: MARCELL HASSAN on 06/30/17 1137 Pantoprazole Sodium 20 Mg Tablet.dr, 20 MG PO DAILY, (Reported) Pregabalin 100 Mg Capsule, 100 MG PO TID, (Reported) Urea 85 Gm Cream..g., TP BID PRN for SORES, (Reported) Past Ipitnbk-Eoewsj-Yvhqao Hx Patient Social History Alcohol Use: Denies Use Recreational Drug Use: No Type Used: Cigarettes Former Smoker, Quit: Oct 20, 2014 2nd Hand Smoke Exposure: No Recent Foreign Travel: No Contact w/Someone Who Travel: No Recent Infectious Disease Expo: No Recent Hopitalizations: No Immunizations Up To Date Tetanus Booster (TDap): Less than 5yrs PED Vaccines UTD: No Date of Pneumonia Vaccine: Jul 17, 2015 Date of Influenza Vaccine: Jul 17, 2015 Seasonal Allergies Seasonal Allergies: No Surgeries History of Surgeries: Yes (HEART CATH/ JAW SURGERY) Surgeries: Cardiac, Prostatectomy Respiratory History of Respiratory Disorde: No (boris coates) Currently Using CPAP: No Currently Using BIPAP: No Cardiovascular History of Cardiac Disorders: Yes (heart cath) Cardiac Disorders: High Cholesterol, Hypertension Neurological History of Neurological Disord: Yes Neurological Disorders: Neuropathy Reproductive System Hx Reproductive Disorders: No Sexually Transmitted Disease: No HIV/AIDS: No Genitourinary Genitourinary Disorders: Prostate Problems Gastrointestinal History of Gastrointestinal Di: Yes Gastrointestinal Disorders: Chronic Diarrhea, C-Diff Musculoskeletal History of Musculoskeletal Dis: Yes (CHRONIC NECK AND BACK PAIN ) Musculoskeletal Disorders: Arthritis, Chronic Back Pain Endocrine History of Endocrine Disorders: Yes Endocrine Disorders: Diabetes, Insulin dep HEENT HEENT Disorders: Glaucoma Loss of Vision: Right Cancer History of Cancer: Yes Cancer: Prostate Type of Tx Receive: Surgical Intervention Psychosocial History of Psychiatric Problem: Yes Behavioral Health Disorders: Anxiety, Depression Integumentary History of Skin or Integumenta: No Blood Transfusions History of Blood Disorders: No Adverse Reaction to a Blood Tr: No Family Medical History Family Medial History: Family history: Hypertension 03 FATHER, Onset:40's - 50 03 MOTHER, Onset:40's - 50 History of - respiratory disease 03 MOTHER, Onset:50's - 60 Myocardial infarction 03 FATHER 03 MOTHER No Family History of: Abdominal aortic aneurysm Reynolds's disease Alcoholism Aphasia Cancer Cancer of colon Cataract Chest pain Congenital heart disease Congestive heart failure Cystic fibrosis Dementia Dysphagia Family history: Allergy Family history: Alzheimer's disease Family history: Arthritis Family history: Asthma Family history: Breast disease Family history: Cardiovascular disease Family history: Coronary thrombosis Family history: Diabetes mellitus Family history: Gastrointestinal disease Family history: Glaucoma Family history: Osteoporosis Family history: Thyroid disorder Headache Hearing loss Heart disease Hereditary disease History of - anemia History of - disorder History of drug abuse Human immunodeficiency virus (HIV) seropositivity Hypercholesterolemia Infertile Kidney disease Malignant neoplasm of lung Parkinson's disease Prostate cancer Psychotic disorder Seizure disorder Stroke Tuberculosis Visual impairment Physical Exam Vital Signs Vital Sign - Last 12Hours 11/07/17 13:25 Temp 98.4 Pulse 74 Resp 18 B/P (MAP) 136/58 (84) Pulse Ox 95 O2 Delivery Room Air Capillary Refill : Less Than 3 Seconds Focused Exam Evaluation Lactate Level Laboratory Tests 11/07/17 17:35: Lactic Acid Level 1.95 Lactic Acid Level Laboratory Tests Test 11/07/17 17:35 Lactic Acid Level 1.95 MMOL/L (0.50-2.00) Progress/Results/Core Measures Suspected Sepsis Recent Fever Within 48 Hours: No Infection Criteria Present: Suspected New Infection New/Unexplained Altered Menta: No Sepsis Screen: No Definite Risk Sepsis Diagnosis: SIRS Temperature:98.4 Pulse: 74 Respiratory Rate: 18 Laboratory Tests 11/07/17 17:35: White Blood Count 10.4 Blood Pressure 136 /58 Mean: 84 Laboratory Tests 11/07/17 17:35: Lactic Acid Level 1.95 Laboratory Tests 11/07/17 17:35: Creatinine 1.58H, Platelet Count 247, Total Bilirubin 0.8 Results/Orders Lab Results Laboratory Tests Test 11/07/17 17:35 11/07/17 19:47 11/07/17 20:27 Range/Units White Blood Count 10.4 4.3-11.0 10^3/uL Red Blood Count 4.36 4.35-5.85 10^6/uL Hemoglobin 12.6 L 13.3-17.7 G/DL Hematocrit 36 L 40-54 % Mean Corpuscular Volume 83 80-99 FL Mean Corpuscular Hemoglobin 29 25-34 PG Mean Corpuscular Hemoglobin Concent 35 32-36 G/DL Red Cell Distribution Width 13.4 10.0-14.5 % Platelet Count 247 130-400 10^3/uL Mean Platelet Volume 12.5 H 7.4-10.4 FL Neutrophils (%) (Auto) 71 42-75 % Lymphocytes (%) (Auto) 22 12-44 % Monocytes (%) (Auto) 6 0-12 % Eosinophils (%) (Auto) 1 0-10 % Basophils (%) (Auto) 0 0-10 % Neutrophils # (Auto) 7.4 1.8-7.8 X 10^3 Lymphocytes # (Auto) 2.3 1.0-4.0 X 10^3 Monocytes # (Auto) 0.6 0.0-1.0 X 10^3 Eosinophils # (Auto) 0.1 0.0-0.3 10^3/uL Basophils # (Auto) 0.0 0.0-0.1 10^3/uL Sodium Level 135 135-145 MMOL/L Potassium Level 4.2 3.6-5.0 MMOL/L Chloride Level 97 L 98-107 MMOL/L Carbon Dioxide Level 22 21-32 MMOL/L Anion Gap 16 H 5-14 MMOL/L Blood Urea Nitrogen 15 7-18 MG/DL Creatinine 1.58 H 0.60-1.30 MG/DL Estimat Glomerular Filtration Rate 45 BUN/Creatinine Ratio 9 Glucose Level 497 *H 70-105 MG/DL Lactic Acid Level 1.95 0.50-2.00 MMOL/L Calcium Level 9.7 8.5-10.1 MG/DL Total Bilirubin 0.8 0.1-1.0 MG/DL Aspartate Amino Transf (AST/SGOT) 13 5-34 U/L Alanine Aminotransferase (ALT/SGPT) 14 0-55 U/L Alkaline Phosphatase 192 H 40-136 U/L C-Reactive Protein High Sensitivity 1.70 H 0.00-0.50 MG/DL Total Protein 7.3 6.4-8.2 GM/DL Albumin 3.9 3.2-4.5 GM/DL Urine Color YELLOW Urine Clarity CLEAR Urine pH 5 5-9 Urine Specific [place] 1.010 L 1.016-1.022 Urine Protein 2+ H NEGATIVE Urine Glucose (UA) 4+ H NEGATIVE Urine Ketones 2+ H NEGATIVE Urine Nitrite NEGATIVE NEGATIVE Urine Bilirubin NEGATIVE NEGATIVE Urine Urobilinogen NORMAL NORMAL MG/DL Urine Leukocyte Esterase 2+ H NEGATIVE Urine RBC (Auto) 4+ H NEGATIVE Urine RBC 50-100 H /HPF Urine WBC 5-10 H /HPF Urine Crystals NONE /LPF Urine Bacteria FEW H /HPF Urine Casts NONE /LPF Urine Mucus NEGATIVE /LPF Urine Culture Indicated NO Glucometer 307 H 70-110 MG/DL My Orders Orders - POP AGUILLON PA Chest 1 View, Ap/Pa Only (11/07/17 16:09) Foot, Right, 3 View (11/07/17 16:09) Saline Lock/Iv-Start (11/07/17 16:09) Cbc With Automated Diff (11/07/17 16:09) Comprehensive Metabolic Panel (11/07/17 16:09) Hs C Reactive Protein (11/07/17 16:09) Lactic Acid Analyzer (11/07/17 16:09) Ua Culture If Indicated (11/07/17 16:09) Ns Iv 1000 Ml (Sodium Chloride 0.9%) (11/07/17 16:09) Hydrocodone/Apap 10/325 Tablet (Lortab 1 (11/07/17 18:42) Clindamycin Injection (Cleocin Injection (11/07/17 18:45) Insulin (Regular) Human (Humulin R (Per (11/07/17 19:08) Ns Iv 1000 Ml (Sodium Chloride 0.9%) (11/07/17 19:08) Medications Given in ED Current Medications Medications Dose Ordered Sig/Anitra Route Start Time Stop Time Status Last Admin Dose Admin Clindamycin Phosphate 900 mg/ Dextrose/Water 56 ml @ 100 mls/hr ONCE ONCE IV 11/07/17 18:45 11/07/17 19:18 DC 11/07/17 19:02 100 MLS/HR Sodium Chloride 1,000 ml @ 0 mls/hr Q0M ONCE IV 11/07/17 16:09 11/07/17 16:11 DC 11/07/17 17:40 1,000 MLS/HR Sodium Chloride 1,000 ml @ 0 mls/hr Q0M ONCE IV 11/07/17 19:08 11/07/17 19:09 DC 11/07/17 19:23 1,000 MLS/HR Vital Signs/I&O Vital Sign - Last 12Hours 11/07/17 11/07/17 13:25 19:02 Temp 98.4 98.4 Pulse 74 Resp 18 B/P (MAP) 136/58 (84) Pulse Ox 95 O2 Delivery Room Air Capillary Refill : Less Than 3 Seconds Blood Pressure Mean: 84 Departure Impression Impression: Primary Impression: Cellulitis of foot, right Additional Impressions: Hyperglycemia due to type 2 diabetes mellitus Volume depletion Hematuria Disposition: HOME, SELF-CARE Condition: Improved Departure-Patient Inst. Decision time for Depature: 20:49 Referrals: LULU FLOWERS (PCP/Family) Primary Care Physician Patient Instructions: Blood Glucose Monitoring, Cellulitis (Skin Infection), Adult (DC), Diabetes and Infections, Diabetic Foot Ulcer (DC) Add. Discharge Instructions: All discharge instructions reviewed with patient and/or family. Voiced understanding. Medications as instructed. Continue usual home medications. Monitor blood sugars closely. Elevate the right foot above the level of the heart. Shower with antibacterial soap. Place gauze between the toes to prevent pressure sores. Follow-up with Dr. Flowers at the [facility] this week as an outpatient for recheck. He may schedule you for an outpatient ultrasound of the kidneys, repeat labs, or further diagnostic testing. Follow-up with your urologist for recheck at the [facility]. Return to the emergency department for worsened pain, swelling, redness, fever, elevated blood sugar, chest pain, shortness of air, vomiting, drainage from the foot wounds, or any other concerns. Scripts Clindamycin HCl (Clindamycin HCl) 300 Mg Capsule 300 MG PO Q6H, #40 CAP 0 Refills Prov: POP AGUILLON 11/07/17 POP AGUILLON Nov 07, 2017 15:19
[2017-11-07] MEDS ORDERED: NS IV 1000 ML 1,000 ML IV ONE ×2 (16:09→19:08)
--- NOTE | 2017-11-07 17:19 | Diagnostic Imaging Report ---
INDICATION: Diabetic foot ulcer. EXAMINATION: Portable chest at 5:26 p.m. FINDINGS: Heart size and pulmonary vascularity are normal. Lungs are clear. There are no effusions or pneumothoraces. IMPRESSION: Negative chest. Dictated by: Dictated on workstation # [id number]
--- NOTE | 2017-11-07 17:26 | Diagnostic Imaging Report ---
INDICATION: Diabetic foot ulcer. EXAMINATION: Three views of the right foot were obtained. FINDINGS: There is no fracture, dislocation or osteolysis. IMPRESSION: Negative right foot. Dictated by: Dictated on workstation # [id number]
[2017-11-07 18:36] LABS: BASOPHILS % (AUTO) 0 % (0-10); EOSINOPHILS # (AUTO) 0.1 10^3/uL (0.0-0.3); EOSINOPHILS % (AUTO) 1 % (0-10); HEMATOCRIT 36 % (40-54); HEMOGLOBIN 12.6 G/DL (13.3-17.7); LYMPHOCYTES # (AUTO) 2.3 X 10^3 (1.0-4.0); LYMPHOCYTES % (AUTO) 22 % (12-44); MEAN CORPUSCULAR HEMOGLOBIN 29 PG (25-34); MEAN CORPUSCULAR HGB CONC 35 G/DL (32-36); MEAN CORPUSCULAR VOLUME 83 FL (80-99); MEAN PLATELET VOLUME 12.5 FL (7.4-10.4); MONOCYTES # (AUTO) 0.6 X 10^3 (0.0-1.0); MONOCYTES % (AUTO) 6 % (0-12); NEUTROPHILS # (AUTO) 7.4 X 10^3 (1.8-7.8); NEUTROPHILS % (AUTO) 71 % (42-75); PLATELET COUNT 247 10^3/uL (130-400); RED BLOOD COUNT 4.36 10^6/uL (4.35-5.85); RED CELL DISTRIBUTION WIDTH 13.4 % (10.0-14.5); WHITE BLOOD COUNT 10.4 10^3/uL (4.3-11.0)
[2017-11-07] MEDS ORDERED: HYDROcodone/APAP 10 MG/325 MG (LORTAB) TAB PO STA (18:42)
[2017-11-07] MEDS ORDERED: CLINDAMYCIN IV ONE (18:45)
[2017-11-07] MEDS ORDERED: D5W IV ONE (18:45)
[2017-11-07 18:55] LABS: ALBUMIN 3.9 GM/DL (3.2-4.5); BILIRUBIN,TOTAL 0.8 MG/DL (0.1-1.0); CALCIUM 9.7 MG/DL (8.5-10.1); CREATININE SERUM 1.58 MG/DL (0.60-1.30); POTASSIUM 4.2 MMOL/L (3.6-5.0); TOTAL PROTEIN 7.3 GM/DL (6.4-8.2)
[2017-11-07] MEDS ORDERED: inSUlin (REGULAR) HUMAN 1 UNIT/0.01 ML (CHARGE PER UNIT) IV STA (19:08)
[2017-11-07 20:02] LABS: BILIRUBIN,URINE NEGATIVE (NEGATIVE); CLARITY,URINE CLEAR; COLOR,URINE YELLOW; GLUCOSE, URINE (UA) 4+ (NEGATIVE); KETONES,URINE 2+ (NEGATIVE); LEUKOCYTE ESTERASE ,URINE 2+ (NEGATIVE); NITRITE,URINE NEGATIVE (NEGATIVE); PH,URINE 5 (5-9); PROTEIN,URINE 2+ (NEGATIVE); UROBILINOGEN,URINE NORMAL (NORMAL)
[2017-11-07 20:13] LABS: BACTERIA,URINE FEW /HPF; RBC,URINE 50-100 /HPF
[2017-11-07] MEDS ORDERED: CLIN300C11 PO (20:50)
[2017-11-07 21:03] VITALS: BP 136/58
== END 2017-11-07 21:09 | disposition home or self-care (01) ==
LOC: EDUNIT# 12:46 → ER 12:48
DX: L03.115 Cellulitis of right lower limb (principal); E11.65 Type 2 diabetes mellitus with hyperglycemia; E86.9 Volume depletion, unspecified; R31.9 Hematuria, unspecified; I10 Essential (primary) hypertension; E78.00 Pure hypercholesterolemia, unspecified; E11.40 Type 2 diabetes mellitus with diabetic neuropathy, unspecified; F41.9 Anxiety disorder, unspecified; F32.9 Major depressive disorder, single episode, unspecified; Z79.4 Long term (current) use of insulin; Z87.891 Personal history of nicotine dependence
CPT/HCPCS: 36415; 71045; 73630; 80053; 81000; 82962; 83605; 85025; 86141; 87088; 96361; 96365; 96375; 99283

== ENCOUNTER 2018-06-28 20:32 | Inpatient (IN) | payer MEDICARE ==
[~2018-06-28] VITALS: Ht 167.6 cm; Wt 66.7 kg
[~2018-06-28 20:32] MED LIST changes: -AMLO2.5T PO; +AMLO2.5T3 PO; -AMLO5TAB2 PO; +AMLO5TAB7 PO; +CLIN300C11 PO; -DEXT4TAB PO; +DORZ10DR18 OD; -DORZ10DR2 OD; -DORZ10DR24 OU; +DORZ10DR8 OU; +TRAZ-189 PO; -TRAZ-28 PO; +[UNRECOGNIZED DRUG - CODE] PO
--- OUTSIDE RECORDS SUMMARY | 2018-06-28 20:45 | XMS REPORT | Clinical Summary ---
Author Author [facility] Organization [facility] Address Unknown Phone Unavailable Care Team Providers Care Peer Specialist Name Role Phone Damien Caceres MD Unavailable Melo Adame MD Unavailable Unavailable Alvarez Ozuna NP PCP Hilary Davenport RN Unavailable Unavailable Source Comments Some departments are not documenting in the electronic medical record. If you do not see the information that you expected, contact Release of Information in the Health Information Management department at [phone] for further assistance in locating additional records.[facility] Allergies No Known Allergies Current Medications Prescription [...] Noted Date Resolved Date Sepsis ([facility]) 01/15/2016 01/17/2016 Severe sepsis (HCC) 01/15/2016 01/17/2016 LATISHA (acute kidney injury) ([facility]) 01/15/2016 01/17/2016 High anion gap [...] PHYSICAL (COMPREHENSIVE) 1965 EXAM PERTUSSIS VACCINE 1969 HIV SCREENING 1973 TETANUS VACCINE 1975 COLORECTAL CANCER 2008 SCREENING SHINGLES RECOMBINANT 2008 VACCINE (1 of 2) INFLUENZA VACCINE 07/20/2018 Results Not on filefrom Last 3 Months
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
[2018-06-28] MEDS ORDERED: NS IV 1000 ML 1,000 ML IV ONE ×2 (22:28→23:18)
[2018-06-28 22:33] LABS: BASOPHILS % (AUTO) 0 % (0-10); EOSINOPHILS % (AUTO) 0 % (0-10); HEMATOCRIT 28 % (40-54); HEMOGLOBIN 9.7 G/DL (13.3-17.7); LYMPHOCYTES # (AUTO) 1.7 X 10^3 (1.0-4.0); LYMPHOCYTES % (AUTO) 7 % (12-44); MEAN CORPUSCULAR HEMOGLOBIN 30 PG (25-34); MEAN CORPUSCULAR HGB CONC 34 G/DL (32-36); MEAN CORPUSCULAR VOLUME 87 FL (80-99); MEAN PLATELET VOLUME 11.5 FL (7.4-10.4); MONOCYTES # (AUTO) 1.9 X 10^3 (0.0-1.0); MONOCYTES % (AUTO) 8 % (0-12); NEUTROPHILS # (AUTO) 20.4 X 10^3 (1.8-7.8); NEUTROPHILS % (AUTO) 85 % (42-75); PLATELET COUNT 432 10^3/uL (130-400); RED BLOOD COUNT 3.26 10^6/uL (4.35-5.85); RED CELL DISTRIBUTION WIDTH 12.7 % (10.0-14.5)
[2018-06-28 22:34] LABS: BILIRUBIN,URINE NEGATIVE (NEGATIVE); CLARITY,URINE CLEAR; COLOR,URINE YELLOW; GLUCOSE, URINE (UA) 4+ (NEGATIVE); KETONES,URINE 4+ (NEGATIVE); LEUKOCYTE ESTERASE ,URINE 2+ (NEGATIVE); NITRITE,URINE NEGATIVE (NEGATIVE); PH,URINE 5 (5-9); PROTEIN,URINE 2+ (NEGATIVE); UROBILINOGEN,URINE NORMAL (NORMAL)
[2018-06-28 22:46] LABS: BACTERIA,URINE FEW /HPF; YEAST,URINE MODERATE /HPF
[2018-06-28 22:47] LABS: BILIRUBIN,TOTAL 0.8 MG/DL (0.1-1.0); CALCIUM 9.8 MG/DL (8.5-10.1); CREATININE SERUM 2.26 MG/DL (0.60-1.30); POTASSIUM 4.4 MMOL/L (3.6-5.0); TOTAL PROTEIN 7.4 GM/DL (6.4-8.2)
[2018-06-28 22:49] LABS: BAND NEUTROPHILS 0 %; BASOPHILS % (MANUAL) 0 %; EOSINOPHILS % (MANUAL) 0 %; LYMPHOCYTES % (MANUAL) 8 %; MONOCYTES % (MANUAL) 4 %; NEUTROPHILS % (MANUAL) 88 %; RBC MORPH NORMAL
[2018-06-28] MEDS ORDERED: inSUlin (REGULAR) HUMAN 1 UNIT/0.01 ML (CHARGE PER UNIT) IV ONE (23:00)
[2018-06-28] MEDS ORDERED: HEParin DRIP 25000 UNIT/500ML 500 ML IV ONE (23:09)
[2018-06-28] MEDS ORDERED: ONDANSETRON 4 MG/2 ML (SDV) Z0FRAN IVP ONE (23:15)
[2018-06-28] MEDS ORDERED: cefTRIAXone FOR IV USE 1,000 MG in NS (IVPB) 50 ML IV ONE (23:15)
[2018-06-28] MEDS ORDERED: HEParin 1000 UNIT/ML (10ML VIAL) FOR BOLUS IV ONE (23:15)
--- NOTE | 2018-06-28 23:29 | ED General ---
General Chief Complaint: Abdominal/GI Problems Stated Complaint: VOMITING,COUGH Nursing Triage Note: TO ED WITH CANE, BUT IN W/C AT THIS TIME. C/O COUGHING AND VOMITING X4 DAYS. Nursing Sepsis Screen: No Definite Risk Source of Information: Patient, Family Exam Limitations: No Limitations History of Present Illness Date Seen by Provider: Jun 28, 2018 Time Seen by Provider: 22:25 Initial Comments This 57-year-old gentleman presents to the emergency room with complaints of vomiting 2 days and cough 4 days. He believes he may have vomited or coughed up a small amount of blood today. He denies any fever. He does have shortness of breath. Oxygen saturation is 100 percent on room air. Patient reports his blood sugars have been very high recently and today they have been too high to measure. He reports compliance with his insulin but has been having markedly elevated blood sugars despite that. Patient's primary care provider is Chris Flowers at the [facility] in [place]. Patient has a history of hypertension and renal failure. Atrial fibrillation is noted on EKG. He has no prior history of atrial fibrillation and is not anticoagulated. He is afebrile. Allergies and Home Medications Allergies Uncoded Allergies: LISINIOPRIL (Adverse Reaction, Unknown, 11/07/17) HYPOTENSION Home Medications Atorvastatin Calcium 80 Mg Tablet, 40 MG PO HS, (Reported) TAKES 1/2 (80MG) TABLET Brimonidine Tartrate 5 Ml Btl, 1 DROP OU BID, (Reported) Bupropion HCl 75 Mg Tablet, 75 MG PO BID, (Reported) Cholecalciferol (Vitamin D3) 1,000 Unit Capsule, 1,000 UNIT PO DAILY, (Reported) Ciprofloxacin HCl 500 Mg Tablet, 500 MG PO BID Prescribed by: RITIKA LOYOLA on 09/17/17 1721 Clindamycin HCl 300 Mg Capsule, 300 MG PO Q6H Prescribed by: POP AGUILLON on 11/07/172049 Cyanocobalamin 1,000 Mcg/Ml Inj, 1,000 MCG IJ EVERY 2 WEEKS, (Reported) Dextrose 4 Gm Tab.chew, 16 GM PO UD PRN for HYPOGLYCEMIA, (Reported) CHEW 4 (4GM) TABLETS NEEDED FOR LOW BLOOD SUGAR, REPEAT DOSE IN 15 MINUTES AFTER FIRST DOSE IF HYPOGLYCEMIA CONTINUES Diphenoxylate HCl/Atropine 1 Each Tablet, 1-2 EACH PO QID Prescribed by: RITIKA LOYOLA on 09/17/17 1727 Dorzolamide HCl/Timolol Maleat 10 Ml Drops, 1 DROP OU BID, (Reported) Duloxetine HCl 30 Mg Capsule.dr, 90 MG PO DAILY, (Reported) TAKES 3 (30MG) CAPSULES Ferrous Sulfate 325 Mg Tablet, 325 MG PO TID, (Reported) Folic Acid 1 Mg Tablet, 1 MG PO DAILY, (Reported) Insulin Aspart 300 Units/3 Ml Solution, 5 UNITS SQ AC Prescribed by: MARCELL HASSAN on 06/30/17 113 Insulin Determir 1,000 Units/10 Ml Soln, 18 UNIT SQ HS Prescribed by: MARCELL HASSAN on 06/30/17 113 Lisinopril 20 Mg Tablet, 20 MG PO DAILY Prescribed by: MARCELL HASSAN on 06/30/17 113 Metoprolol Tartrate 25 Mg Tablet, 25 MG PO BID Prescribed by: MARCELL HASSAN on 06/30/17 113 Pantoprazole Sodium 20 Mg Tablet.dr, 20 MG PO DAILY, (Reported) Pregabalin 100 Mg Capsule, 100 MG PO TID, (Reported) Urea 85 Gm Cream..g., TP BID PRN for SORES, (Reported) Patient Home Medication List Home Medication List Reviewed: Yes Review of Systems Review of Systems Constitutional: weakness EENTM: no symptoms reported Respiratory: see HPI Cardiovascular: see HPI Gastrointestinal: see HPI Genitourinary: no symptoms reported Musculoskeletal: no symptoms reported Skin: no symptoms reported Psychiatric/Neurological: No Symptoms Reported Hematologic/Lymphatic: No Symptoms Reported Immunological/Allergic: no symptoms reported Past Rkulctg-[id number]-Oxvuec Hx Patient Social History Alcohol Use: Denies Use Recreational Drug Use: Yes (MARIJUANA) Smoking Status: Light Tobacco Smoker Type Used: Cigars Former Smoker, Quit: Oct 20, 2014 2nd Hand Smoke Exposure: No Recent Foreign Travel: No Contact w/Someone Who Travel: No Recent Infectious Disease Expo: No Recent Hopitalizations: No Immunizations Up To Date Tetanus Booster (TDap): Less than 5yrs PED Vaccines UTD: No Date of Pneumonia Vaccine: Jul 17, 2015 Date of Influenza Vaccine: Jul 17, 2015 Seasonal Allergies Seasonal Allergies: No Past Medical History Surgeries: Yes (HEART CATH/ JAW SURGERY) Cardiac, Prostatectomy Respiratory: No (boris coates) Currently Using CPAP: No Currently Using BIPAP: No Cardiac: Yes (heart cath) High Cholesterol, Hypertension Neurological: Yes Neuropathy Reproductive Disorders: No Sexually Transmitted Disease: No HIV/AIDS: No Genitourinary: Yes Prostate Problems Gastrointestinal: Yes Chronic Diarrhea, C-Diff Musculoskeletal: Yes (CHRONIC NECK AND BACK PAIN ) Arthritis, Chronic Back Pain Endocrine: Yes Diabetes, Insulin dep Glaucoma Loss of Vision: Right Cancer: Yes Prostate What Type of Treatment Did You: Surgical Intervention Psychosocial: Yes Anxiety, Depression Integumentary: No Blood Disorders: No Adverse Reaction/Blood Tranf: No Family Medical History Family history: Hypertension 03 FATHER, Onset:40's - 50 03 MOTHER, Onset:40's - 50 History of - respiratory disease 03 MOTHER, Onset:50's - 60 Myocardial infarction 03 FATHER 03 MOTHER No Family History of: Abdominal aortic aneurysm Houston's disease Alcoholism Aphasia Cancer Cancer of colon Cataract Chest pain Congenital heart disease Congestive heart failure Cystic fibrosis Dementia Dysphagia Family history: Allergy Family history: Alzheimer's disease Family history: Arthritis Family history: Asthma Family history: Breast disease Family history: Cardiovascular disease Family history: Coronary thrombosis Family history: Diabetes mellitus Family history: Gastrointestinal disease Family history: Glaucoma Family history: Osteoporosis Family history: Thyroid disorder Headache Hearing loss Heart disease Hereditary disease History of - anemia History of - disorder History of drug abuse Human immunodeficiency virus (HIV) seropositivity Hypercholesterolemia Infertile Kidney disease Malignant neoplasm of lung Parkinson's disease Prostate cancer Psychotic disorder Seizure disorder Stroke Tuberculosis Visual impairment No Pertinent Family Hx Physical Exam-Suspected Sepsis Physical Exam Vital Signs Vital Signs - First Documented 06/28/18 06/29/18 06/29/18 21:58 02:21 02:35 Temp 97.4 Pulse 137 Resp 17 B/P (MAP) 157/77 (103) Pulse Ox 93 O2 Delivery Room Air Capillary Refill : Less Than 3 Seconds Blood Pressure Mean: 103 Height, Weight, BMI Height: 5'6.00" Weight: 140lbs. 5.0oz. 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 II-XII Norm as Tested Skin: normal color, warm/dry Focused Exam Sepsis Stage: Severe Sepsis Lactate Level 06/28/18 23:28: Lactic Acid Level 1.68 Time of Focused Exam: 23:20 Respiratory: Lungs Clear, No Accessory Muscle Use, No Respiratory Distress Cardiovascular: Irregularly Irregular, Tachycardia Capillary Refill: Less Than 3 Seconds Skin: normal color, warm/dry Lactic Acid Level Progress/Results/Core Measures Suspected Sepsis Recent Fever Within 48 Hours: No Infection Criteria Present: Suspected New Infection New/Unexplained Altered Menta: No Sepsis Screen: No Definite Risk SIRS Temperature:97.4 Pulse: 137 Respiratory Rate: 17 Laboratory Tests 06/28/18 21:58: White Blood Count 24.0H 06/29/18 04:32: White Blood Count 21.2H Blood Pressure 157 /77 Mean: 103 06/28/18 23:28: Lactic Acid Level 1.68 Laboratory Tests 06/28/18 21:58: Creatinine 2.26H, INR Comment 1.0, Platelet Count 432H, Total Bilirubin 0.8 06/29/18 04:32: Creatinine 1.97H, Platelet Count 408H, Total Bilirubin 0.5 Results/Orders Lab Results Laboratory Tests Test 06/28/18 21:58 06/28/18 22:03 06/28/18 23:28 06/29/18 00:18 Range/Units White Blood Count 24.0 H 4.3-11.0 10^3/uL Red Blood Count 3.26 L 4.35-5.85 10^6/uL Hemoglobin 9.7 L 13.3-17.7 G/DL Hematocrit 28 L 40-54 % Mean Corpuscular Volume 87 80-99 FL Mean Corpuscular Hemoglobin 30 25-34 PG Mean Corpuscular Hemoglobin Concent 34 32-36 G/DL Red Cell Distribution Width 12.7 10.0-14.5 % Platelet Count 432 H 130-400 10^3/uL Mean Platelet Volume 11.5 H 7.4-10.4 FL Neutrophils (%) (Auto) 85 H 42-75 % Lymphocytes (%) (Auto) 7 L 12-44 % Monocytes (%) (Auto) 8 0-12 % Eosinophils (%) (Auto) 0 0-10 % Basophils (%) (Auto) 0 0-10 % Neutrophils # (Auto) 20.4 H 1.8-7.8 X 10^3 Lymphocytes # (Auto) 1.7 1.0-4.0 X 10^3 Monocytes # (Auto) 1.9 H 0.0-1.0 X 10^3 Eosinophils # (Auto) 0.0 0.0-0.3 10^3/uL Basophils # (Auto) 0.0 0.0-0.1 10^3/uL Neutrophils % (Manual) 88 % Lymphocytes % (Manual) 8 % Monocytes % (Manual) 4 % Eosinophils % (Manual) 0 % Basophils % (Manual) 0 % Band Neutrophils 0 % Blood Morphology Comment NORMAL Prothrombin Time 13.4 12.2-14.7 SEC INR Comment 1.0 0.8-1.4 Activated Partial Thromboplast Time 24 24-35 SEC D-Dimer 2.50 H 0.00-0.49 UG/ML Sodium Level 131 L 135-145 MMOL/L Potassium Level 4.4 3.6-5.0 MMOL/L Chloride Level 95 L 98-107 MMOL/L Carbon Dioxide Level 8 *L 21-32 MMOL/L Anion Gap 28 H 5-14 MMOL/L Blood Urea Nitrogen 38 H 7-18 MG/DL Creatinine 2.26 H 0.60-1.30 MG/DL Estimat Glomerular Filtration Rate 30 BUN/Creatinine Ratio 17 Glucose Level 659 *H 70-105 MG/DL Calcium Level 9.8 8.5-10.1 MG/DL Corrected Calcium 9.8 8.5-10.1 MG/DL Total Bilirubin 0.8 0.1-1.0 MG/DL Aspartate Amino Transf (AST/SGOT) 25 5-34 U/L Alanine Aminotransferase (ALT/SGPT) 17 0-55 U/L Alkaline Phosphatase 160 H 40-136 U/L C-Reactive Protein High Sensitivity 11.54 H 0.00-0.50 MG/DL B-Type Natriuretic Peptide 1242.3 H <100.0 PG/ML Total Protein 7.4 6.4-8.2 GM/DL Albumin 4.0 3.2-4.5 GM/DL Urine Color YELLOW Urine Clarity CLEAR Urine pH 5 5-9 Urine Specific [place] 1.015 L 1.016-1.022 Urine Protein 2+ H NEGATIVE Urine Glucose (UA) 4+ H NEGATIVE Urine Ketones 4+ H NEGATIVE Urine Nitrite NEGATIVE NEGATIVE Urine Bilirubin NEGATIVE NEGATIVE Urine Urobilinogen NORMAL NORMAL MG/DL Urine Leukocyte Esterase 2+ H NEGATIVE Urine RBC (Auto) 4+ H NEGATIVE Urine RBC 5-10 H /HPF Urine WBC 10-25 H /HPF Urine Squamous Epithelial Cells 2-5 /HPF Urine Crystals NONE /LPF Urine Bacteria FEW H /HPF Urine Casts NONE /LPF Urine Mucus NEGATIVE /LPF Urine Yeast MODERATE H /HPF Urine Culture Indicated YES Lactic Acid Level 1.68 0.50-2.00 MMOL/L Glucometer 324 H 70-110 MG/DL Test 06/29/18 03:40 06/29/18 04:32 06/29/18 05:02 06/29/18 06:05 Range/Units Glucometer 336 H 304 H 294 H 70-110 MG/DL White Blood Count 21.2 H 4.3-11.0 10^3/uL Red Blood Count 3.15 L 4.35-5.85 10^6/uL Hemoglobin 9.3 L 13.3-17.7 G/DL Hematocrit 27 L 40-54 % Mean Corpuscular Volume 87 80-99 FL Mean Corpuscular Hemoglobin 30 25-34 PG Mean Corpuscular Hemoglobin Concent 34 32-36 G/DL Red Cell Distribution Width 12.7 10.0-14.5 % Platelet Count 408 H 130-400 10^3/uL Mean Platelet Volume 10.8 H 7.4-10.4 FL Neutrophils (%) (Auto) 86 H 42-75 % Lymphocytes (%) (Auto) 8 L 12-44 % Monocytes (%) (Auto) 6 0-12 % Eosinophils (%) (Auto) 0 0-10 % Basophils (%) (Auto) 0 0-10 % Neutrophils # (Auto) 18.2 H 1.8-7.8 X 10^3 Lymphocytes # (Auto) 1.8 1.0-4.0 X 10^3 Monocytes # (Auto) 1.2 H 0.0-1.0 X 10^3 Eosinophils # (Auto) 0.0 0.0-0.3 10^3/uL Basophils # (Auto) 0.0 0.0-0.1 10^3/uL Activated Partial Thromboplast Time 102 H 24-35 SEC Sodium Level 137 135-145 MMOL/L Potassium Level 3.2 L 3.6-5.0 MMOL/L Chloride Level 105 98-107 MMOL/L Carbon Dioxide Level 9 *L 21-32 MMOL/L Anion Gap 23 H 5-14 MMOL/L Blood Urea Nitrogen 33 H 7-18 MG/DL Creatinine 1.97 H 0.60-1.30 MG/DL Estimat Glomerular Filtration Rate 35 BUN/Creatinine Ratio 17 Glucose Level 340 H 70-105 MG/DL Calcium Level 9.0 8.5-10.1 MG/DL Corrected Calcium 9.3 8.5-10.1 MG/DL Phosphorus Level 2.6 2.3-4.7 MG/DL Magnesium Level 1.9 1.8-2.4 MG/DL Total Bilirubin 0.5 0.1-1.0 MG/DL Aspartate Amino Transf (AST/SGOT) 19 5-34 U/L Alanine Aminotransferase (ALT/SGPT) 16 0-55 U/L Alkaline Phosphatase 141 H 40-136 U/L Total Protein 6.8 6.4-8.2 GM/DL Albumin 3.6 3.2-4.5 GM/DL My Orders Orders - ALISE FOX MD BNP (06/28/18 22:26) Cbc With Automated Diff (06/28/18 22:26) Comprehensive Metabolic Panel (06/28/18 22:26) Hs C Reactive Protein (06/28/18 22:26) Fibrin Degradation Products (06/28/18 22:26) Ua Culture If Indicated (06/28/18 22:26) Saline Lock/Iv-Start (06/28/18 22:26) Ekg Tracing (06/28/18 22:26) Monitor-Rhythm Ecg Trace Only (06/28/18 22:26) Chest Pa/Lat (2 View) (06/28/18 22:26) Ns Iv 1000 Ml (Sodium Chloride 0.9%) (06/28/18 22:28) Manual Differential (06/28/18 21:58) Urine Culture (06/28/18 22:03) Insulin (Regular) Human (Humulin R (Per (06/28/18 23:00) Ondansetron Injection (Zofran Injectio (06/28/18 23:15) Blood Culture (06/28/18 23:09) Lactic Acid Analyzer (06/28/18 23:09) Ceftriaxone For Iv Use (Rocephin For I (06/28/18 23:15) Heparin Drip 32376 Unit/500ml (Heparin (06/28/18 23:09) Heparin (Bolus Per Protocol) (Heparin (B (06/28/18 23:15) Ns (Ivpb) (Sodium C... W/Diltiazem Iv Fo (06/28/18 23:30) Saline Lock/Iv-Start (06/28/18 23:18) Ns Iv 1000 Ml (Sodium Chloride 0.9%) (06/28/18 23:18) Protime With Inr (06/28/18 23:20) Partial Thromboplastin Time (06/28/18 23:20) Accucheck Stat ONCE (06/28/18 23:45) Accucheck Stat ONCE (06/28/18 23:45) Medications Given in ED Current Medications Medications Dose Ordered Sig/Anitra Route Start Time Stop Time Status Last Admin Dose Admin Ceftriaxone Sodium 1000 mg/ Sodium Chloride 50 ml @ 100 mls/hr ONCE ONCE IV 06/28/18 23:15 06/28/18 23:44 DC 06/28/18 23:48 100 MLS/HR Heparin Sodium (Porcine) HEPARIN FULL PROTOC... ONCE ONCE IV 06/28/18 23:15 06/28/18 23:16 DC 06/29/18 00:16 5,000 UNIT Heparin Sodium/ Dextrose 500 ml @ 0 mls/hr Q0M ONCE IV 06/28/18 23:09 06/28/18 23:12 DC 06/29/18 00:21 23 MLS/HR Insulin Human Regular 5 unit ONCE ONCE IV 06/28/18 23:00 06/28/18 23:01 DC 06/28/18 23:06 5 UNIT Ondansetron HCl 4 mg ONCE ONCE IVP 06/28/18 23:15 06/28/18 23:16 DC 06/28/18 23:48 4 MG Sodium Chloride 1,000 ml @ 0 mls/hr Q0M ONCE IV 06/28/18 22:28 06/28/18 22:29 DC 06/28/18 23:06 999 MLS/HR Sodium Chloride 1,000 ml @ 0 mls/hr Q0M ONCE IV 06/28/18 23:18 06/28/18 23:21 DC 06/29/18 00:17 999 MLS/HR Vital Signs/I&O 06/28/18 06/28/18 06/29/18 06/29/18 21:58 23:28 00:06 02:21 Temp 97.4 97.4 Pulse 137 125 125 Resp 17 17 B/P (MAP) 157/77 (103) 153/86 133/71 (108) Pulse Ox 93 06/29/18 06/29/18 06/29/18 06/29/18 02:35 02:40 02:45 03:00 Temp 98.1 Pulse 125 131 126 Resp 22 15 B/P (MAP) 135/79 (97) 137/76 (96) Pulse Ox 98 98 96 O2 Delivery Room Air Room Air Room Air 06/29/18 06/29/18 06/29/18 06/29/18 03:00 03:15 03:30 03:45 Pulse 123 113 126 105 Resp 20 18 23 15 B/P (MAP) 134/95 (108) 141/95 (110) 136/73 (94) 131/76 (94) Pulse Ox 90 97 94 98 O2 Delivery Room Air Room Air Room Air Room Air 06/29/18 06/29/18 06/29/18 06/29/18 04:00 04:00 04:15 05:00 Pulse 100 113 111 Resp 20 25 18 B/P (MAP) 119/64 (82) 114/63 (80) 127/68 (87) Pulse Ox 98 98 98 92 O2 Delivery Room Air Room Air Room Air Room Air 06/29/18 06/29/18 06/29/18 05:15 05:30 05:45 Pulse 101 90 88 Resp 20 20 20 B/P (MAP) 114/63 (80) 101/63 (76) 101/64 (76) Pulse Ox 98 98 97 O2 Delivery Room Air Room Air Room Air Capillary Refill : Less Than 3 Seconds Blood Pressure Mean: 103 Progress Note : Time: 23:23 Progress Note Patient has numerous problems being treated at this time. His hyperglycemia is being treated with IV hydration and IV insulin. He is receiving 1 L of IV normal saline at this time and a second liter has been ordered to follow. He has also been given 5 units of insulin by IV route. Patient also has atrial fibrillation with RVR. A Cardizem drip will be initiated along with the IV fluids. Patient denies any chest pain. Nausea and vomiting is being treated with Zofran. Patient believes he may have had a scant amount of blood in his emesis earlier. For this reason, anticoagulation for A. fib will be provided with heparin drip so that it can be stopped if he develops any further suspicion of bleeding. Patient appears septic with leukocytosis, tachycardia, and source of infection with UTI. Blood cultures and lactic acid are being drawn and Rocephin has been ordered. Patient's d-dimer was elevated but CT angiogram cannot be performed at this time due to renal function. Patient is being empirically treated with heparin drip that was ordered for stroke prophylaxis due to A. fib. ECG Initial ECG Impression Date: Jun 28, 2018 Initial ECG Impression Time: 22:40 Initial ECG Rate: 118 Initial ECG Rhythm: A Fib/Flutter Initial ECG Impression: Atrial Fibrillation w/RVR Comment Atrial fibrillation with RVR. No ST elevation or depression. Diagnostic Imaging Diagonstic Imaging: Xray Plain Films/CT/US/NM/MRI: chest Comments Chest x-ray viewed by me. Report not yet available. No acute abnormalities appreciated. Departure Communication (Admissions) Time/Spoke to Admitting Phy: 01:28 Dr. Raya Time/Spoke to Consulting Phy: 00:26 Dr. Jean Impression Primary Impression: Atrial fibrillation with RVR Additional Impressions: Urinary tract infection Qualified Codes: N39.0 - Urinary tract infection, site not specified Nausea and vomiting Qualified Codes: R11.2 - Nausea with vomiting, unspecified Hyperglycemia Acute renal failure syndrome DKA (diabetic ketoacidoses) Qualified Codes: E11.10 - Type 2 diabetes mellitus with ketoacidosis without coma Severe sepsis Disposition: ADMITTED INPATIENT Condition: Improved Admissions Decision to Admit Reason: Admit from ER (General) Decision to Admit/Date: Jun 29, 2018 Time/Decision to Admit Time: 23:10 Departure-Patient Inst. Referrals: [facility] FLOWERS (PCP/Family) Primary Care Physician ALISE FOX MD Jun 28, 2018 23:28
[2018-06-28] MEDS ORDERED: DILTIAZEM IV FOR DRIP 125 MG in NS (IVPB) 100 ML IV SCH (23:30)
[2018-06-28 23:37] LABS: PROTHROMBIN TIME PATIENT 13.4 SEC (12.2-14.7)
[2018-06-29] VITALS (34 sets, daily range): BP systolic 96–161; BP diastolic 62–95
[2018-06-29] MEDS ORDERED: LIDOCAINE UROJET 2% GEL 10 ML PKG ONE ×2 (02:36→06:32)
[2018-06-29] MEDS ORDERED: EPINEPHrine 1 MG INJECTION 5 MG in NS (IVPB) 250 ML IV SCH (03:30)
[2018-06-29] MEDS ORDERED: DILTIAZEM IV FOR DRIP 125 MG in NS (IVPB) 100 ML IV SCH ×2 (03:30→20:30)
[2018-06-29] MEDS ORDERED: NORMAL SALINE 250 ML ONE (03:42)
[2018-06-29] MEDS ORDERED: inSUlin (REGULAR) HUMAN 1 UNIT/0.01 ML (CHARGE PER UNIT) ONE (03:43)
[2018-06-29] MEDS ORDERED: D5 1/2 NS W/KCL 20 MEQ/L 1,000 ML IV ONE (03:48)
[2018-06-29] MEDS ORDERED: HEParin 1000 UNIT/ML (10ML VIAL) FOR BOLUS IV SCH (04:00)
[2018-06-29] MEDS: inSUlin REGULAR TPN/DRIP ONLY 250 UNITS in NORMAL SALINE 250 ML IV SCH ×2 (04:00→05:11)
[2018-06-29] MEDS: D5 1/2 NS W/KCL 20 MEQ/L 1,000 ML IV SCH ×3 (04:00→12:57)
[2018-06-29] MEDS: NOREPINEPHRINE 4 MG in NS (IVPB) 250 ML IV SCH ×2 (04:09→17:18)
[2018-06-29] MEDS: VASOPRESSIN INJECTION 20 UNIT in NS (IVPB) 100 ML IV SCH ×2 (04:10→11:47)
[2018-06-29 04:42] LABS: BASOPHILS % (AUTO) 0 % (0-10); EOSINOPHILS % (AUTO) 0 % (0-10); HEMATOCRIT 27 % (40-54); HEMOGLOBIN 9.3 G/DL (13.3-17.7); LYMPHOCYTES # (AUTO) 1.8 X 10^3 (1.0-4.0); LYMPHOCYTES % (AUTO) 8 % (12-44); MEAN CORPUSCULAR HEMOGLOBIN 30 PG (25-34); MEAN CORPUSCULAR HGB CONC 34 G/DL (32-36); MEAN CORPUSCULAR VOLUME 87 FL (80-99); MEAN PLATELET VOLUME 10.8 FL (7.4-10.4); MONOCYTES # (AUTO) 1.2 X 10^3 (0.0-1.0); MONOCYTES % (AUTO) 6 % (0-12); NEUTROPHILS # (AUTO) 18.2 X 10^3 (1.8-7.8); NEUTROPHILS % (AUTO) 86 % (42-75); PLATELET COUNT 408 10^3/uL (130-400); RED BLOOD COUNT 3.15 10^6/uL (4.35-5.85); RED CELL DISTRIBUTION WIDTH 12.7 % (10.0-14.5); WHITE BLOOD COUNT 21.2 10^3/uL (4.3-11.0)
[2018-06-29 04:58] LABS: ALBUMIN 3.6 GM/DL (3.2-4.5); BILIRUBIN,TOTAL 0.5 MG/DL (0.1-1.0); CREATININE SERUM 1.97 MG/DL (0.60-1.30); MAGNESIUM 1.9 MG/DL (1.8-2.4); PHOSPHORUS 2.6 MG/DL (2.3-4.7); POTASSIUM 3.2 MMOL/L (3.6-5.0); TOTAL PROTEIN 6.8 GM/DL (6.4-8.2)
[2018-06-29] MEDS ORDERED: inSUlin REGULAR TPN/DRIP ONLY 250 UNITS in NORMAL SALINE 250 ML IV SCH (05:00)
[2018-06-29] MEDS ORDERED: HYDROcodone/APAP 10 MG/325 MG (LORTAB) TAB PO ONE (05:00)
[2018-06-29] MEDS: LACTATED RINGERS 1,000 ML IV SCH ×3 (05:07→11:27)
[2018-06-29] MEDS: NS IV 1000 ML 1,000 ML IV SCH ×4 (05:07→17:19)
[2018-06-29] MEDS: 1/2 NS W/KCL 20 MEQ/L 1,000 ML IV SCH ×2 (05:11→13:16)
[2018-06-29] MEDS ORDERED: POTASSIUM CL 10MEQ/50ML IVPB 50 ML IV SCH (05:30)
[2018-06-29] MEDS: POTASSIUM CL 10MEQ/50ML IVPB 50 ML IV SCH ×7 (05:37→17:18)
[2018-06-29] MEDS: MAGNESIUM 1 GM/100 ML IVPB 100 ML IV SCH (05:38)
[2018-06-29] MEDS: KCL 20 MEQ TAB (K-DUR) PO SCH (05:38)
--- NOTE | 2018-06-29 05:49 | Pulmonary Consultation ---
History of Present Illness History of Present Illness Date of Consultation 06/29/18 05:44 Time Seen by Provider: 05:44 Date of Admission History of Present Illness 57yo with hx of IDDM, renal failure presented to the ED secondary to persistent/ worsening vomiting x 2 days. Pt has also noted some small amount of blood while vomiting. No fever, or SOB. Sp02 was 100% on RA. BS were very high upon admission. Pt was found to be in Afib upon admission. He is not on out patient anticoagulation. Allergies and Home Medications Allergies Uncoded Allergies: LISINIOPRIL (Adverse Reaction, Unknown, 11/07/17) HYPOTENSION Home Medications Atorvastatin Calcium 80 Mg Tablet, 40 MG PO HS, (Reported) TAKES 1/2 (80MG) TABLET Brimonidine Tartrate 5 Ml Btl, 1 DROP OU BID, (Reported) Bupropion HCl 75 Mg Tablet, 75 MG PO BID, (Reported) Cholecalciferol (Vitamin D3) 1,000 Unit Capsule, 1,000 UNIT PO DAILY, (Reported) Ciprofloxacin HCl 500 Mg Tablet, 500 MG PO BID Prescribed by: RITIKA LOYOLA on 09/17/17 172 Clindamycin HCl 300 Mg Capsule, 300 MG PO Q6H Prescribed by: POP AGUILLON on 11/07/172049 Cyanocobalamin 1,000 Mcg/Ml Inj, 1,000 MCG IJ EVERY 2 WEEKS, (Reported) Dextrose 4 Gm Tab.chew, 16 GM PO UD PRN for HYPOGLYCEMIA, (Reported) CHEW 4 (4GM) TABLETS NEEDED FOR LOW BLOOD SUGAR, REPEAT DOSE IN 15 MINUTES AFTER FIRST DOSE IF HYPOGLYCEMIA CONTINUES Diphenoxylate HCl/Atropine 1 Each Tablet, 1-2 EACH PO QID Prescribed by: RITIKA LOYOLA on 09/17/17 172 Dorzolamide HCl/Timolol Maleat 10 Ml Drops, 1 DROP OU BID, (Reported) Duloxetine HCl 30 Mg Capsule.dr, 90 MG PO DAILY, (Reported) TAKES 3 (30MG) CAPSULES Ferrous Sulfate 325 Mg Tablet, 325 MG PO TID, (Reported) Folic Acid 1 Mg Tablet, 1 MG PO DAILY, (Reported) Insulin Aspart 300 Units/3 Ml Solution, 5 UNITS SQ AC Prescribed by: MARCELL HASSAN on 06/30/17 1137 Insulin Determir 1,000 Units/10 Ml Soln, 18 UNIT SQ HS Prescribed by: MARCELL HASSAN on 06/30/171136 Lisinopril 20 Mg Tablet, 20 MG PO DAILY Prescribed by: MARCELL HASSAN on 06/30/171136 Metoprolol Tartrate 25 Mg Tablet, 25 MG PO BID Prescribed by: MARCELL HASSAN on 06/30/171136 Pantoprazole Sodium 20 Mg Tablet.dr, 20 MG PO DAILY, (Reported) Pregabalin 100 Mg Capsule, 100 MG PO TID, (Reported) Urea 85 Gm Cream..g., TP BID PRN for SORES, (Reported) Past Dcoearx-Dctjym-Xiyvzi Hx Patient Social History Alcohol Use: Denies Use Recreational Drug Use: Yes (MARIJUANA) Smoking Status: Current Everyday Smoker Type Used: Cigarettes Former Smoker, Quit: Oct 20, 2014 2nd Hand Smoke Exposure: No Recent Foreign Travel: No Contact w/Someone Who Travel: No Recent Infectious Disease Expo: No Recent Hopitalizations: No Immunizations Up To Date Tetanus Booster (TDap): Less than 5yrs PED Vaccines UTD: No Date of Pneumonia Vaccine: Jul 17, 2015 Date of Influenza Vaccine: Jul 17, 2015 Seasonal Allergies Seasonal Allergies: No Past Medical History Surgeries: Yes (HEART CATH/ JAW SURGERY) Cardiac, Prostatectomy Respiratory: No (fmr smkr) Currently Using CPAP: No Currently Using BIPAP: No Cardiac: Yes (heart cath) High Cholesterol, Hypertension Neurological: Yes Neuropathy Reproductive Disorders: No Sexually Transmitted Disease: No HIV/AIDS: No Genitourinary: Yes Prostate Problems Gastrointestinal: Yes Chronic Diarrhea, C-Diff Musculoskeletal: Yes (CHRONIC NECK AND BACK PAIN ) Arthritis, Chronic Back Pain Endocrine: Yes Diabetes, Insulin dep Glaucoma Loss of Vision: Right Cancer: Yes Prostate What Type of Treatment Did You: Surgical Intervention Psychosocial: Yes Anxiety, Depression Integumentary: No Blood Disorders: No Adverse Reaction/Blood Tranf: No Family Medical History Family history: Hypertension 03 FATHER, Onset:40's - 50 03 MOTHER, Onset:40's - 50 History of - respiratory disease 03 MOTHER, Onset:50's - 60 Myocardial infarction 03 FATHER 03 MOTHER No Family History of: Abdominal aortic aneurysm Ellerbe's disease Alcoholism Aphasia Cancer Cancer of colon Cataract Chest pain Congenital heart disease Congestive heart failure Cystic fibrosis Dementia Dysphagia Family history: Allergy Family history: Alzheimer's disease Family history: Arthritis Family history: Asthma Family history: Breast disease Family history: Cardiovascular disease Family history: Coronary thrombosis Family history: Diabetes mellitus Family history: Gastrointestinal disease Family history: Glaucoma Family history: Osteoporosis Family history: Thyroid disorder Headache Hearing loss Heart disease Hereditary disease History of - anemia History of - disorder History of drug abuse Human immunodeficiency virus (HIV) seropositivity Hypercholesterolemia Infertile Kidney disease Malignant neoplasm of lung Parkinson's disease Prostate cancer Psychotic disorder Seizure disorder Stroke Tuberculosis Visual impairment No Pertinent Family Hx Review of Systems Time Seen by Provider: 06:06 Constitutional: Fever, Weakness, Malaise Respiratory: Cough, Dry, Shortness of breath, SOB with excertion Gastrointestinal: Nausea, Vomiting; No: Abdominal Pain Genitourinary: No Dysuria Skin: No: Rash Neurological: Weakness Sepsis Event Evaluation Height, Weight, BMI Height: 5'6.00" Weight: 145lbs. 5.0oz. 65.655205dz; 23.5 BMI Method:Stated Exam Exam Vital Signs Date Time Temp Pulse Resp B/P (MAP) Pulse Ox O2 Delivery O2 Flow Rate FiO2 06/29/18 05:30 90 20 101/63 (76) 98 Room Air 06/29/18 05:15 101 20 114/63 (80) 98 Room Air 06/29/18 05:00 111 18 127/68 (87) 92 Room Air 06/29/18 04:15 113 25 114/63 (80) 98 Room Air 06/29/18 04:00 98 Room Air 06/29/18 04:00 100 20 119/64 (82) 98 Room Air 06/29/18 03:45 105 15 131/76 (94) 98 Room Air 06/29/18 03:30 126 23 136/73 (94) 94 Room Air 06/29/18 03:15 113 18 141/95 (110) 97 Room Air 06/29/18 03:00 123 20 134/95 (108) 90 Room Air 06/29/18 03:00 126 06/29/18 02:45 131 15 137/76 (96) 96 Room Air 06/29/18 02:40 98 Room Air 06/29/18 02:35 98.1 125 22 135/79 (97) 98 Room Air 06/29/18 02:21 97.4 125 17 133/71 (108) 93 06/29/18 00:06 125 153/86 06/28/18 23:28 06/28/18 21:58 97.4 137 17 157/77 (103) I & O 06/29/18 07:00 Intake Total 2050 ml Balance 2050 ml Height & Weight Height: 5'6.00" Weight: 145lbs. 5.0oz. 65.816204cr; 23.5 BMI Method:Stated General Appearance: Anxious, Mild Distress, Thin HEENT: PERRL/EOMI, Normal ENT Inspection, Pharynx Normal Neck: Non Tender, Supple Respiratory: No Accessory Muscle Use, No Respiratory Distress, Decreased Breath Sounds Cardiovascular: No Edema, No JVD, No Murmur Capillary Refill: Less Than 3 Seconds Gastrointestinal: normal bowel sounds, non tender, soft, no organomegaly Extremity: Normal Capillary Refill, Normal Inspection Neurologic/Psychiatric: Alert, Depressed Affect Skin: Normal Color, Warm/Dry Lymphatic: No Adenopathy Results Lab Laboratory Tests 06/28/18 21:58 06/29/18 04:32 Assessment/Plan Assessment/Plan Sepsis with UTI -Continue Rocephin Acute DKA -Continue insulin gtt per DKA protocol -IVF - Continue Oliguria -Check Bladder scan -RN could not place hong -Consult urology. Discussed with Dr. Lemus Metabolic encephalopathy -Pt appears confused however recently received Lortab Afib -Cardizem gtt -Cardiology consulted Hypokalemia -Replace ARF -IVF and continue to monitor -Check bilateral renal US UPDATE: D/W DR. LEMUS. HE IS UNABLE TO PLACE HONG CATH. HE RECOMMENDS DISCUSSING WITH GENERAL SURGERY REGARDING SUPRAPUBIC CATH. I D/W DR. TENA AND HE WILL LOOK AT PLACING CATHETER. WILL DECREASE IVF UNTIL SUPRAPUBIC IS PLACED. APARNA VAZQUEZ DO Jun 29, 2018 05:49
--- NOTE | 2018-06-29 06:37 | Diagnostic Imaging Report ---
Clinical indication: Patient chest pain. Exam: Chest x-ray PA and lateral views. Comparisons: Chest x-ray dated 11/07/2017. Findings: Lungs/pleura: Lungs are clear. There is no pneumothorax. There is no pleural effusion. Mediastinum: Unremarkable. Pulmonary vasculature: Unremarkable. Heart: Unremarkable. Bones/extrathoracic soft tissue: There are mildly hypertrophic spurs involving the thoracic spine. Impression: Stable chest x-ray exam with no interval radiographic evidence of acute cardiopulmonary process. Dictated by: Dictated on workstation # [id number]
[2018-06-29] MEDS ORDERED: MIDAZOLAM 2 MG/2 ML (VERSED) VIAL ONE ×2 (06:48→11:04)
[2018-06-29] MEDS ORDERED: fentaNYL INJECTION 100 MCG/2 ML AMP ONE ×2 (06:49→11:04)
--- NOTE | 2018-06-29 07:05 | Diagnostic Imaging Report ---
CLINICAL INDICATION: Patient A. fib with rapid ventricular response, severe sepsis and DKA. EXAM: Portable chest x-ray upright view. COMPARISONS: Chest x-ray dated 06/28/2018. FINDINGS: Lungs/pleura: Lungs are clear. There is no pneumothorax. There is no pleural effusion. Mediastinum: Unremarkable. Pulmonary vasculature: Unremarkable. Heart: Unremarkable. Bones/extrathoracic soft tissue: There are hypertrophic spurs involving the thoracic spine. IMPRESSION: Stable chest x-ray exam. There is no radiographic evidence of acute cardiopulmonary process. Dictated by: Dictated on workstation # [id number]
[2018-06-29 07:56] LABS: CALCIUM 8.6 MG/DL (8.5-10.1); CREATININE SERUM 1.91 MG/DL (0.60-1.30); POTASSIUM 3.5 MMOL/L (3.6-5.0)
[2018-06-29] MEDS ORDERED: fentaNYL INJECTION 100 MCG/2 ML AMP IVP ONE (08:15)
--- NOTE | 2018-06-29 08:41 | Diagnostic Imaging Report ---
PROCEDURE: US Renal Bilateral. TECHNIQUE: Multiple real-time grayscale images were obtained over the kidneys in various projections bilaterally. INDICATION: Renal failure The right kidney measures 10.6 x 6.0 x 5.3 cm, and the left kidney measures 9.7 x 6.0 x 3.7 cm. Cortical thickness and echogenicity appears normal. No calculi are seen. No hydronephrosis is identified. Bladder is unremarkable. The right ureteral jet was visualized. Left ureteral jet was not visualized. IMPRESSION: Unremarkable renal and bladder ultrasound apart from a nonvisualized left ureteral jet. Dictated by: Dictated on workstation # [id number]
--- NOTE | 2018-06-29 09:09 | Consultation-Cardiology ---
HPI-Cardiology Cardiology Consultation Date of Consultation 06/29/18 Date of Admission Time Seen by Provider: 08:00 Indication: atrial fibrillation HPI 57 years old gentleman with history of diabetes mellitus, hypertension. Was having nausea and vomiting for the past 2 days, came into the emergency room and noted to be in diabetic ketoacidosis and atrial fibrillation, has leukocytosis and anemia. Complaining of fatigue and loss of energy. Admit having occasional palpitation, denied any chest pain. No syncope or near syncopal episodes. No claudications. He was started on heparin drip and Cardizem drip, heart rate is better, blood pressure is stable. Still having poorly controlled blood sugar Home Medications & Allergies Allergies: Uncoded Allergies: LISINIOPRIL (Adverse Reaction, Unknown, 11/07/17) HYPOTENSION Home Medication List Reviewed: Yes XPC-Olrbov-Ayvtrl Hx Patient Social History Alcohol Use: Denies Use Recreational Drug Use: Yes (MARIJUANA) Smoking Status: Current Everyday Smoker Type Used: Cigarettes 2nd Hand Smoke Exposure: No Recent Foreign Travel: No Recent Infectious Disease Expo: No Recent Hopitalizations: No Physical Abuse Screen: No Sexual Abuse: No Immunizations Up To Date Tetanus Booster (TDap): Less than 5yrs Date of Pneumonia Vaccine: Jul 17, 2015 Date of Influenza Vaccine: Jul 17, 2015 Past Medical History Past medical history as described below Family Medical History Significant Family History: No Pertinent Family Hx Family History: Family history: Hypertension 03 FATHER, Onset:40's - 50 03 MOTHER, Onset:40's - 50 History of - respiratory disease 03 MOTHER, Onset:50's - 60 Myocardial infarction 03 FATHER 03 MOTHER No Family History of: Abdominal aortic aneurysm Boo's disease Alcoholism Aphasia Cancer Cancer of colon Cataract Chest pain Congenital heart disease Congestive heart failure Cystic fibrosis Dementia Dysphagia Family history: Allergy Family history: Alzheimer's disease Family history: Arthritis Family history: Asthma Family history: Breast disease Family history: Cardiovascular disease Family history: Coronary thrombosis Family history: Diabetes mellitus Family history: Gastrointestinal disease Family history: Glaucoma Family history: Osteoporosis Family history: Thyroid disorder Headache Hearing loss Heart disease Hereditary disease History of - anemia History of - disorder History of drug abuse Human immunodeficiency virus (HIV) seropositivity Hypercholesterolemia Infertile Kidney disease Malignant neoplasm of lung Parkinson's disease Prostate cancer Psychotic disorder Seizure disorder Stroke Tuberculosis Visual impairment Review of Systems Constitutional: see HPI, malaise, weakness EENTM: see HPI, no symptoms reported Respiratory: see HPI, cough, dyspnea on exertion; No hemoptysis, No orthopnea, No phlegm, No short of breath, No stridor, No wheezing, No other Cardiovascular: see HPI; No chest pain, No edema, No Hx of Intervention; palpitations; No syncope, No vascular heart diseas, No other Gastrointestinal: see HPI, nausea, vomiting Genitourinary: see HPI, frequency Musculoskeletal: see HPI, joint pain, muscle stiffness Skin: see HPI Psychiatric/Neurological: No Symptoms Reported, See HPI Reviewed Test Results Reviewed Test Results Lab Laboratory Tests Test 06/28/18 21:58 06/28/18 22:03 06/28/18 23:28 06/29/18 00:18 Range/Units White Blood Count 24.0 H 4.3-11.0 10^3/uL Red Blood Count 3.26 L 4.35-5.85 10^6/uL Hemoglobin 9.7 L 13.3-17.7 G/DL Hematocrit 28 L 40-54 % Mean Corpuscular Volume 87 80-99 FL Mean Corpuscular Hemoglobin 30 25-34 PG Mean Corpuscular Hemoglobin Concent 34 32-36 G/DL Red Cell Distribution Width 12.7 10.0-14.5 % Platelet Count 432 H 130-400 10^3/uL Mean Platelet Volume 11.5 H 7.4-10.4 FL Neutrophils (%) (Auto) 85 H 42-75 % Lymphocytes (%) (Auto) 7 L 12-44 % Monocytes (%) (Auto) 8 0-12 % Eosinophils (%) (Auto) 0 0-10 % Basophils (%) (Auto) 0 0-10 % Neutrophils # (Auto) 20.4 H 1.8-7.8 X 10^3 Lymphocytes # (Auto) 1.7 1.0-4.0 X 10^3 Monocytes # (Auto) 1.9 H 0.0-1.0 X 10^3 Eosinophils # (Auto) 0.0 0.0-0.3 10^3/uL Basophils # (Auto) 0.0 0.0-0.1 10^3/uL Neutrophils % (Manual) 88 % Lymphocytes % (Manual) 8 % Monocytes % (Manual) 4 % Eosinophils % (Manual) 0 % Basophils % (Manual) 0 % Band Neutrophils 0 % Blood Morphology Comment NORMAL Prothrombin Time 13.4 12.2-14.7 SEC INR Comment 1.0 0.8-1.4 Activated Partial Thromboplast Time 24 24-35 SEC D-Dimer 2.50 H 0.00-0.49 UG/ML Sodium Level 131 L 135-145 MMOL/L Potassium Level 4.4 3.6-5.0 MMOL/L Chloride Level 95 L 98-107 MMOL/L Carbon Dioxide Level 8 *L 21-32 MMOL/L Anion Gap 28 H 5-14 MMOL/L Blood Urea Nitrogen 38 H 7-18 MG/DL Creatinine 2.26 H 0.60-1.30 MG/DL Estimat Glomerular Filtration Rate 30 BUN/Creatinine Ratio 17 Glucose Level 659 *H 70-105 MG/DL Calcium Level 9.8 8.5-10.1 MG/DL Corrected Calcium 9.8 8.5-10.1 MG/DL Total Bilirubin 0.8 0.1-1.0 MG/DL Aspartate Amino Transf (AST/SGOT) 25 5-34 U/L Alanine Aminotransferase (ALT/SGPT) 17 0-55 U/L Alkaline Phosphatase 160 H 40-136 U/L C-Reactive Protein High Sensitivity 11.54 H 0.00-0.50 MG/DL B-Type Natriuretic Peptide 1242.3 H <100.0 PG/ML Total Protein 7.4 6.4-8.2 GM/DL Albumin 4.0 3.2-4.5 GM/DL Urine Color YELLOW Urine Clarity CLEAR Urine pH 5 5-9 Urine Specific [place] 1.015 L 1.016-1.022 Urine Protein 2+ H NEGATIVE Urine Glucose (UA) 4+ H NEGATIVE Urine Ketones 4+ H NEGATIVE Urine Nitrite NEGATIVE NEGATIVE Urine Bilirubin NEGATIVE NEGATIVE Urine Urobilinogen NORMAL NORMAL MG/DL Urine Leukocyte Esterase 2+ H NEGATIVE Urine RBC (Auto) 4+ H NEGATIVE Urine RBC 5-10 H /HPF Urine WBC 10-25 H /HPF Urine Squamous Epithelial Cells 2-5 /HPF Urine Crystals NONE /LPF Urine Bacteria FEW H /HPF Urine Casts NONE /LPF Urine Mucus NEGATIVE /LPF Urine Yeast MODERATE H /HPF Urine Culture Indicated YES Lactic Acid Level 1.68 0.50-2.00 MMOL/L Glucometer 324 H 70-110 MG/DL Test 06/29/18 03:40 06/29/18 04:32 06/29/18 05:02 06/29/18 06:05 Range/Units Glucometer 336 H 304 H 294 H 70-110 MG/DL White Blood Count 21.2 H 4.3-11.0 10^3/uL Red Blood Count 3.15 L 4.35-5.85 10^6/uL Hemoglobin 9.3 L 13.3-17.7 G/DL Hematocrit 27 L 40-54 % Mean Corpuscular Volume 87 80-99 FL Mean Corpuscular Hemoglobin 30 25-34 PG Mean Corpuscular Hemoglobin Concent 34 32-36 G/DL Red Cell Distribution Width 12.7 10.0-14.5 % Platelet Count 408 H 130-400 10^3/uL Mean Platelet Volume 10.8 H 7.4-10.4 FL Neutrophils (%) (Auto) 86 H 42-75 % Lymphocytes (%) (Auto) 8 L 12-44 % Monocytes (%) (Auto) 6 0-12 % Eosinophils (%) (Auto) 0 0-10 % Basophils (%) (Auto) 0 0-10 % Neutrophils # (Auto) 18.2 H 1.8-7.8 X 10^3 Lymphocytes # (Auto) 1.8 1.0-4.0 X 10^3 Monocytes # (Auto) 1.2 H 0.0-1.0 X 10^3 Eosinophils # (Auto) 0.0 0.0-0.3 10^3/uL Basophils # (Auto) 0.0 0.0-0.1 10^3/uL Activated Partial Thromboplast Time 102 H 24-35 SEC Sodium Level 137 135-145 MMOL/L Potassium Level 3.2 L 3.6-5.0 MMOL/L Chloride Level 105 98-107 MMOL/L Carbon Dioxide Level 9 *L 21-32 MMOL/L Anion Gap 23 H 5-14 MMOL/L Blood Urea Nitrogen 33 H 7-18 MG/DL Creatinine 1.97 H 0.60-1.30 MG/DL Estimat Glomerular Filtration Rate 35 BUN/Creatinine Ratio 17 Glucose Level 340 H 70-105 MG/DL Calcium Level 9.0 8.5-10.1 MG/DL Corrected Calcium 9.3 8.5-10.1 MG/DL Phosphorus Level 2.6 2.3-4.7 MG/DL Magnesium Level 1.9 1.8-2.4 MG/DL Total Bilirubin 0.5 0.1-1.0 MG/DL Aspartate Amino Transf (AST/SGOT) 19 5-34 U/L Alanine Aminotransferase (ALT/SGPT) 16 0-55 U/L Alkaline Phosphatase 141 H 40-136 U/L Total Protein 6.8 6.4-8.2 GM/DL Albumin 3.6 3.2-4.5 GM/DL Test 06/29/18 07:31 06/29/18 07:32 06/29/18 08:22 Range/Units Sodium Level 137 135-145 MMOL/L Potassium Level 3.5 L 3.6-5.0 MMOL/L Chloride Level 107 98-107 MMOL/L Carbon Dioxide Level 15 L 21-32 MMOL/L Anion Gap 15 H 5-14 MMOL/L Blood Urea Nitrogen 31 H 7-18 MG/DL Creatinine 1.91 H 0.60-1.30 MG/DL Estimat Glomerular Filtration Rate 36 BUN/Creatinine Ratio 16 Glucose Level 252 H 70-105 MG/DL Calcium Level 8.6 8.5-10.1 MG/DL Glucometer 253 H 179 H 70-110 MG/DL Physical Exam Vital Signs Vital Signs - First Documented 06/28/18 06/29/18 06/29/18 21:58 02:21 02:35 Temp 97.4 Pulse 137 Resp 17 B/P (MAP) 157/77 (103) Pulse Ox 93 O2 Delivery Room Air Capillary Refill : Less Than 3 Seconds Height, Weight, BMI Height: 5'6.00" Weight: 145lbs. 5.0oz. 65.791368ro; 23.5 BMI Method:Stated General Appearance: No Apparent Distress, WD/WN Eyes: Bilateral Eye Normal Inspection, Bilateral Eye PERRL, Bilateral Eye EOMI HEENT: PERRL/EOMI, TMs Normal, Normal ENT Inspection, Pharynx Normal Neck: Full Range of Motion, Normal Inspection, Non Tender, Supple, Carotid Bruit Respiratory: Chest Non Tender, Lungs Clear, Normal Breath Sounds, No Accessory Muscle Use, No Respiratory Distress Cardiovascular: No Edema, No JVD, Normal Peripheral Pulses, Systolic Murmur, Irregularly Irregular, Tachycardia Gastrointestinal: Normal Bowel Sounds, No Organomegaly, No Pulsatile Mass, Non Tender, Soft Back: Normal Inspection, No CVA Tenderness, No Vertebral Tenderness Extremity: Normal Capillary Refill, Normal Inspection, Normal Range of Motion, Non Tender, No Calf Tenderness, No Pedal Edema Neurologic/Psychiatric: Alert, Oriented x3, No Motor/Sensory Deficits, Normal Mood/Affect Skin: Normal Color, Warm/Dry Lymphatic: No Adenopathy A/P-Cardiology Admission Diagnosis Diabetic ketoacidosis Acute renal failure Atrial fibrillation Hypertension Assessment/Plan Atrial fibrillation with rapid ventricular response, started on Cardizem drip and heparin drip. Continue to monitor, planning to start oral anticoagulation once can tolerate diet. Diabetic ketoacidosis, started on IV fluid and insulin. Improving slowly. Still in acidosis. Continue to monitor closely. Metabolic encephalopathy, mild confusion. Slightly better this morning. Continue to monitor Hypertension, borderline hypotensive at this time. Continue with IV fluid and monitor closely. Tobaccoism, educated on smoking cessation Acute renal failure, receiving IV fluid, improving slowly. Continue to monitor renal function Electrolyte imbalance secondary to metabolic acidosis and DKA. Being corrected slowly. Continue to monitor Generalized weakness and loss of energy. Nausea and vomiting, reporting improvement. Continue to monitor Clinical Quality Measures DVT/VTE Risk/Contraindication: Risk Factor Score Per Nursin RFS Level Per Nursing on Admit: 4+=Very High LOREE HUERTA MD Jun 29, 2018 09:09
[2018-06-29 10:08] LABS: CALCIUM 8.8 MG/DL (8.5-10.1); CREATININE SERUM 1.82 MG/DL (0.60-1.30); POTASSIUM 3.9 MMOL/L (3.6-5.0)
[2018-06-29] MEDS ORDERED: DEXTROSE 10% IV SOLUTION 1,000 ML IV ONE (10:09)
--- NOTE | 2018-06-29 10:20 | Consultation ---
History of Present Illness History of Present Illness Patient Consulted On(uriel/time) 06/29/18 10:15 Time Seen by Provider: 09:54 Reason for Visit: atrial fibrillation History of Present Illness Surgery asked to consult regarding Suprapubic catheter. HPI per ED: This 57-year-old gentleman presents to the emergency room with complaints of vomiting 2 days and cough 4 days. He believes he may have vomited or coughed up a small amount of blood today. He denies any fever. He does have shortness of breath. Oxygen saturation is 100 percent on room air. Patient reports his blood sugars have been very high recently and today they have been too high to measure. He reports compliance with his insulin but has been having markedly elevated blood sugars despite that. Patient's primary care provider is Chris Seay at the [facility] in [place]. Patient has a history of hypertension and renal failure. Atrial fibrillation is noted on EKG. He has no prior history of atrial fibrillation and is not anticoagulated. He is afebrile. When I saw pt he was resting comfortably in ICU bed; Urology had already seen pt and attempted catheter insertion. Pt had 500ml of urine in bladder, was incontinent just before I saw him (nurse stated the entire bed was wet) and repeat bladder scan showed 671ml in bladder. He denied any abdominal pain. He states he has vomited up blood in the past. "I have a bad stomach"; denies previous EGD. Allergies and Home Medications Allergies Uncoded Allergies: LISINIOPRIL (Adverse Reaction, Unknown, 11/07/17) HYPOTENSION Home Medications Atorvastatin Calcium 80 Mg Tablet, 40 MG PO HS, (Reported) TAKES 1/2 (80MG) TABLET Brimonidine Tartrate 5 Ml Btl, 1 DROP OU BID, (Reported) Bupropion HCl 75 Mg Tablet, 75 MG PO BID, (Reported) Cholecalciferol (Vitamin D3) 1,000 Unit Capsule, 1,000 UNIT PO DAILY, (Reported) Ciprofloxacin HCl 500 Mg Tablet, 500 MG PO BID Prescribed by: RITIKA LOYOLA on 09/17/17 1721 Clindamycin HCl 300 Mg Capsule, 300 MG PO Q6H Prescribed by: POP AGUILLON on 11/07/172049 Cyanocobalamin 1,000 Mcg/Ml Inj, 1,000 MCG IJ EVERY 2 WEEKS, (Reported) Dextrose 4 Gm Tab.chew, 16 GM PO UD PRN for HYPOGLYCEMIA, (Reported) CHEW 4 (4GM) TABLETS NEEDED FOR LOW BLOOD SUGAR, REPEAT DOSE IN 15 MINUTES AFTER FIRST DOSE IF HYPOGLYCEMIA CONTINUES Diphenoxylate HCl/Atropine 1 Each Tablet, 1-2 EACH PO QID Prescribed by: RITIKA LOYOLA on 09/17/17 1727 Dorzolamide HCl/Timolol Maleat 10 Ml Drops, 1 DROP OU BID, (Reported) Duloxetine HCl 30 Mg Capsule.dr, 90 MG PO DAILY, (Reported) TAKES 3 (30MG) CAPSULES Ferrous Sulfate 325 Mg Tablet, 325 MG PO TID, (Reported) Folic Acid 1 Mg Tablet, 1 MG PO DAILY, (Reported) Insulin Aspart 300 Units/3 Ml Solution, 5 UNITS SQ AC Prescribed by: MARCELL HASSAN on 06/30/171136 Insulin Determir 1,000 Units/10 Ml Soln, 18 UNIT SQ HS Prescribed by: MARCELL HASSAN on 06/30/17 113 Lisinopril 20 Mg Tablet, 20 MG PO DAILY Prescribed by: MARCELL HASSAN on 06/30/17 113 Metoprolol Tartrate 25 Mg Tablet, 25 MG PO BID Prescribed by: MARCELL HASSAN on 06/30/17 113 Pantoprazole Sodium 20 Mg Tablet.dr, 20 MG PO DAILY, (Reported) Pregabalin 100 Mg Capsule, 100 MG PO TID, (Reported) Urea 85 Gm Cream..g., TP BID PRN for SORES, (Reported) Patient Home Medication List Home Medication List Reviewed: Yes Past Mebpcpr-Jnbamy-Sognpp Hx Patient Social History Alcohol Use: Denies Use Recreational Drug Use: Yes (MARIJUANA) Smoking Status: Current Everyday Smoker Former Smoker, Quit: Oct 20, 2014 Type Used: Cigarettes 2nd Hand Smoke Exposure: No Recent Foreign Travel: No Contact w/Someone Who Travel: No Recent Infectious Disease Expo: No Recent Hopitalizations: No Physical Abuse Screen: No Sexual Abuse: No Immunizations Up To Date Tetanus Booster (TDap): Less than 5yrs PED Vaccines UTD: No Date of Pneumonia Vaccine: Jul 17, 2015 Date of Influenza Vaccine: Jul 17, 2015 Seasonal Allergies Seasonal Allergies: No Surgeries History of Surgeries: Yes (HEART CATH/ JAW SURGERY) Surgeries: Cardiac, Prostatectomy Respiratory History of Respiratory Disorde: No (fmr smkr) Cardiovascular History of Cardiac Disorders: Yes (heart cath) Cardiac Disorders: High Cholesterol, Hypertension Neurological History of Neurological Disord: Yes Neurological Disorders: Neuropathy Reproductive System Hx Reproductive Disorders: No Sexually Transmitted Disease: No HIV/AIDS: No Genitourinary History of Genitourinary Disor: Yes Genitourinary Disorders: Prostate Problems Gastrointestinal History of Gastrointestinal Di: Yes Gastrointestinal Disorders: Chronic Diarrhea, C-Diff Musculoskeletal History of Musculoskeletal Dis: Yes (CHRONIC NECK AND BACK PAIN ) Musculoskeletal Disorders: Arthritis, Chronic Back Pain Endocrine History of Endocrine Disorders: Yes Endocrine Disorders: Diabetes, Insulin dep HEENT HEENT Disorders: Glaucoma Loss of Vision: Right Cancer History of Cancer: Yes Cancer: Prostate Psychosocial History of Psychiatric Problem: Yes Behavioral Health Disorders: Anxiety, Depression Integumentary History of Skin or Integumenta: No Blood Transfusions History of Blood Disorders: No Adverse Reaction to a Blood Tr: No Family Medical History Significant Family History: No Pertinent Family Hx, Heart Disease (Father of [place]), Hypertension (mother) Family Medial History: Family history: Hypertension 03 FATHER, Onset:40's - 50 03 MOTHER, Onset:40's - 50 History of - respiratory disease 03 MOTHER, Onset:50's - 60 Myocardial infarction 03 FATHER 03 MOTHER No Family History of: Abdominal aortic aneurysm Bucks's disease Alcoholism Aphasia Cancer Cancer of colon Cataract Chest pain Congenital heart disease Congestive heart failure Cystic fibrosis Dementia Dysphagia Family history: Allergy Family history: Alzheimer's disease Family history: Arthritis Family history: Asthma Family history: Breast disease Family history: Cardiovascular disease Family history: Coronary thrombosis Family history: Diabetes mellitus Family history: Gastrointestinal disease Family history: Glaucoma Family history: Osteoporosis Family history: Thyroid disorder Headache Hearing loss Heart disease Hereditary disease History of - anemia History of - disorder History of drug abuse Human immunodeficiency virus (HIV) seropositivity Hypercholesterolemia Infertile Kidney disease Malignant neoplasm of lung Parkinson's disease Prostate cancer Psychotic disorder Seizure disorder Stroke Tuberculosis Visual impairment Review of Systems-General Constitutional: chills, malaise, weakness EENTM: blurred vision; No mouth pain, No mouth swelling, No epistaxis, No throat swelling Respiratory: cough; No dyspnea on exertion, No hemoptysis, No short of breath Cardiovascular: No chest pain, No edema; Hx of Intervention, palpitations Gastrointestinal: No abdominal pain; diarrhea, hematemesis Genitourinary: No dysuria, No hematuria; incontinence, other (unable to void on his own, has had prostate surgery) Musculoskeletal: joint pain, muscle pain, muscle stiffness Skin: No change in color, No change in hair/nails Psychiatric/Neurological: Anxiety, Depressed; Denies Seizure; Tremors Other pt denies any history of abnormal bruising or bleeding Physical Exam-General Problems Physical Exam Vital Signs Vital Signs - First Documented 06/28/18 06/29/18 06/29/18 21:58 02:21 02:35 Temp 97.4 Pulse 137 Resp 17 B/P (MAP) 157/77 (103) Pulse Ox 93 O2 Delivery Room Air Capillary Refill : Less Than 3 Seconds General Appearance: mild distress, thin Eyes: Bilateral Eye PERRL, Bilateral Eye EOMI HEENT: pharynx normal; No scleral icterus (R), No scleral icterus (L), No pale conjunctivae (R), No pale conjunctivae (L) Neck: full range of motion; No thyromegaly Respiratory: no respiratory distress, no accessory muscle use, decreased breath sounds, crackles Cardiovascular: systolic murmur, irregularly irregular Gastrointestinal: normal bowel sounds, non tender, soft, no organomegaly, no pulsatile mass Back: no CVA tenderness, no vertebral tenderness Extremities: no pedal edema, no calf tenderness, normal capillary refill Neurologic/Psychiatric: hiv cts specialist II-XII nml as tested, alert, oriented x 3, depressed affect Skin: normal color, warm/dry Lymphatic: no adenopathy (neck, axilla or groin) Data Review Labs Laboratory Tests 06/28/18 21:58: White Blood Count 24.0H, Red Blood Count 3.26L, Hemoglobin 9.7L, Hematocrit 28L , Mean Corpuscular Volume 87, Mean Corpuscular Hemoglobin 30, Mean Corpuscular Hemoglobin Concent 34, Red Cell Distribution Width 12.7, Platelet Count 432H, Mean Platelet Volume 11.5H, Neutrophils (%) (Auto) 85H, Lymphocytes (%) (Auto) 7L, Monocytes (%) (Auto) 8, Eosinophils (%) (Auto) 0, Basophils (%) (Auto) 0, Neutrophils # (Auto) 20.4H, Lymphocytes # (Auto) 1.7, Monocytes # (Auto) 1.9H, Eosinophils # (Auto) 0.0, Basophils # (Auto) 0.0, Neutrophils % (Manual) 88, Lymphocytes % (Manual) 8, Monocytes % (Manual) 4, Eosinophils % (Manual) 0, Basophils % (Manual) 0, Band Neutrophils 0, Blood Morphology Comment NORMAL, Prothrombin Time 13.4, INR Comment 1.0, Activated Partial Thromboplast Time 24, D-Dimer 2.50H, Sodium Level 131L, Potassium Level 4.4, Chloride Level 95L, Carbon Dioxide Level 8*L, Anion Gap 28H, Blood Urea Nitrogen 38H, Creatinine 2.26H, Estimat Glomerular Filtration Rate 30, BUN/Creatinine Ratio 17, Glucose Level 659*H, Calcium Level 9.8, Corrected Calcium 9.8, Total Bilirubin 0.8, Aspartate Amino Transf (AST/SGOT) 25, Alanine Aminotransferase (ALT/SGPT) 17, Alkaline Phosphatase 160H, C-Reactive Protein High Sensitivity 11.54H, B-Type Natriuretic Peptide 1242.3H, Total Protein 7.4, Albumin 4.0 06/28/18 22:03: Urine Color YELLOW, Urine Clarity CLEAR, Urine pH 5, Urine Specific [place] 1.015L, Urine Protein 2+H, Urine Glucose (UA) 4+H, Urine Ketones 4+H, Urine Nitrite NEGATIVE, Urine Bilirubin NEGATIVE, Urine Urobilinogen NORMAL, Urine Leukocyte Esterase 2+H, Urine RBC (Auto) 4+H, Urine RBC 5-10H, Urine WBC 10-25H , Urine Squamous Epithelial Cells 2-5, Urine Crystals NONE, Urine Bacteria FEWH , Urine Casts NONE, Urine Mucus NEGATIVE, Urine Yeast MODERATEH, Urine Culture Indicated YES 06/28/18 23:28: Lactic Acid Level 1.68 06/29/18 00:18: Glucometer 324H 06/29/18 03:40: Glucometer 336H 06/29/18 04:32: White Blood Count 21.2H, Red Blood Count 3.15L, Hemoglobin 9.3L, Hematocrit 27L , Mean Corpuscular Volume 87, Mean Corpuscular Hemoglobin 30, Mean Corpuscular Hemoglobin Concent 34, Red Cell Distribution Width 12.7, Platelet Count 408H, Mean Platelet Volume 10.8H, Neutrophils (%) (Auto) 86H, Lymphocytes (%) (Auto) 8L, Monocytes (%) (Auto) 6, Eosinophils (%) (Auto) 0, Basophils (%) (Auto) 0, Neutrophils # (Auto) 18.2H, Lymphocytes # (Auto) 1.8, Monocytes # (Auto) 1.2H, Eosinophils # (Auto) 0.0, Basophils # (Auto) 0.0, Activated Partial Thromboplast Time 102H, Sodium Level 137, Potassium Level 3.2L, Chloride Level 105, Carbon Dioxide Level 9*L, Anion Gap 23H, Blood Urea Nitrogen 33H, Creatinine 1.97H, Estimat Glomerular Filtration Rate 35, BUN/Creatinine Ratio 17 , Glucose Level 340H, Calcium Level 9.0, Corrected Calcium 9.3, Phosphorus Level 2.6, Magnesium Level 1.9, Total Bilirubin 0.5, Aspartate Amino Transf (AST /SGOT) 19, Alanine Aminotransferase (ALT/SGPT) 16, Alkaline Phosphatase 141H, Total Protein 6.8, Albumin 3.6 06/29/18 05:02: Glucometer 304H 06/29/18 06:05: Glucometer 294H 06/29/18 07:31: Sodium Level 137, Potassium Level 3.5L, Chloride Level 107, Carbon Dioxide Level 15L, Anion Gap 15H, Blood Urea Nitrogen 31H, Creatinine 1.91H, Estimat Glomerular Filtration Rate 36, BUN/Creatinine Ratio 16, Glucose Level 252H, Calcium Level 8.6 06/29/18 07:32: Glucometer 253H 06/29/18 08:22: Glucometer 179H 06/29/18 09:35: Sodium Level 139, Potassium Level 3.9, Chloride Level 110H, Carbon Dioxide Level 18L, Anion Gap 11, Blood Urea Nitrogen 31H, Creatinine 1.82H, Estimat Glomerular Filtration Rate 38, BUN/Creatinine Ratio 17, Glucose Level 108H, Calcium Level 8.8 06/29/18 09:36: Glucometer 98 06/29/18 10:09: Assessment/Plan Assessment/Plan Assessment/Plan Urinary Retention - Plan for suprapubic catheter Hematemesis - Plan for EGD with possible bx Hypokalemia - replace DKA - resolving Afib - cardiology on board Pt had unsuccessful attempts at bladder catheterization and needs suprapubic catheter for accurate I&O's and to avoid damage to bladder due to retention. Discussed the case with pt; risk and complications not limited to pain, bleeding, infection, scar and damage to bladder. We will also do an EGD when pt is asleep to assess the hematemesis. Discussed possible esophageal rupture as complication of this procedure. All questions answered to his satisfaction. Clinical Quality Measures DVT/VTE Risk/Contraindication: Risk Factor Score Per Nursin RFS Level Per Nursing on Admit: 4+=Very High SEBASTIEN TENA DO Jun 29, 2018 10:20
[2018-06-29] MEDS ORDERED: inSUlin DETERMIR 1 UNIT/0.01 ML (LEVEMIR) CHARGE PER UNIT SQ NR (10:30)
[2018-06-29] MEDS ORDERED: LIDOCAINE PF 2% 2 ML (XYLOCAINE) VIAL ONE ×2 (11:03→11:05)
[2018-06-29] MEDS ORDERED: proPOfol 200 MG/20 ML (DIPRIVAN) VIAL IV ONE (11:03)
[2018-06-29] MEDS ORDERED: SEVOFLURANE (ULTANE) 15 ML INHAL SOLN ONE ×3 (11:03→12:42)
[2018-06-29] MEDS ORDERED: GENTAMICIN 40 MG/ML 2 ML INJ SDV ONE (11:11)
[2018-06-29] MEDS ORDERED: LIDOCAINE/EPI 1%-1:200,000 (XYLOCAINE) 10 ML VIAL ONE (11:11)
[2018-06-29] MEDS ORDERED: ONDANSETRON 4 MG/2 ML (SDV) Z0FRAN ONE (12:42)
[2018-06-29] MEDS ORDERED: LACTATED RINGERS 1,000 ML IV PRN (12:56)
--- NOTE | 2018-06-29 12:57 | Progress Note-Post Operative ---
Post-Operative Progess Note Surgeon (s)/Bakery Sales Clerk (s) Surgeon SEBASTIEN TENA DO Bakery Sales Clerk: Jose Luis Pre-Operative Diagnosis Urinary Retention, Inability to place johnson catheter, Hematemesis Post-Operative Diagnosis Same plus duodenal polyp Procedure & Operative Findings Date of Procedure 06/29/18 Procedure Performed/Findings 1. Open suprapubic tube placement 2. EGD with polypectomy Anesthesia Type LMA Estimated Blood Loss Estimated blood loss (mL): scant Specimens/Packing Specimens Removed duodenal polyp SEBASTIEN TENA DO Jun 29, 2018 12:57
--- NOTE | 2018-06-29 13:21 | Anesthesia-General Post-Op ---
General Patient Condition Mental Status/LOC: Same as Preop Cardiovascular: Satisfactory Nausea/Vomiting: Absent Respiratory: Satisfactory Pain: Controlled Complications: Absent Post Op Complications Complications None Follow Up Care/Instructions Patient Instructions None needed. Anesthesia/Patient Condition Patient Condition Patient is doing well, no complaints, stable vital signs, no apparent adverse anesthesia problems. No complications reported per nursing. NILTON AIKEN CRNA Jun 29, 2018 13:21
[2018-06-29] MEDS ORDERED: morphine INJ 10 MG/ML 1ML (SYR OR VIAL) IVP ONE (13:30)
[2018-06-29 14:17] LABS: CALCIUM 8.5 MG/DL (8.5-10.1); CREATININE SERUM 1.75 MG/DL (0.60-1.30); POTASSIUM 4.1 MMOL/L (3.6-5.0)
[2018-06-29] MEDS ORDERED: UREA85CR23 TP (14:43)
[2018-06-29] MEDS ORDERED: METF-397 PO (14:43)
[2018-06-29] MEDS ORDERED: MIRT15TA6 PO (14:43)
[2018-06-29] MEDS ORDERED: FERR324T4 PO (14:43)
[2018-06-29] MEDS ORDERED: CYAN10006 PO (14:43)
[2018-06-29] MEDS ORDERED: METO50TA15 PO (14:43)
[2018-06-29] MEDS ORDERED: INSU100V5 SQ (14:43)
[2018-06-29] MEDS ORDERED: INSU100I14 SQ (14:43)
[2018-06-29] MEDS ORDERED: LOPE-145 PO (16:00)
[2018-06-29] MEDS ORDERED: NON-FORMULARY MEDICATION 1 EA EA (Insulin Aspart (Novolog Flexpen) 25 UNITS) SQ SCH (17:00)
[2018-06-29] MEDS ORDERED: inSUlin ASPART (NovoLOG) 1 UNIT/0.01 ML (CHARGE PER UNIT) SC SCH (17:00)
--- NOTE | 2018-06-29 17:08 | History & Physical-Hospitalist ---
History of Present Illness HPI/Chief Complaint The patient is a 57-year-old white male who was admitted through the emergency room last night. He presented with a complaint of vomiting for 2 or more days prior to admission and a cough of 4 days he reported shortness of breath. He also reported that his blood sugars have been running high despite his taking the prescribed amounts of NovoLog and Levemir. He was also found to have atrial fibrillation with no prior history of A. fib. He is relatively vague about details today. His states that he has been diabetic since 1994. Date Seen 06/29/18 Time Seen by Provider: 17:02 Attending Physician Jeanine Raya MD PCP Alvarez Seay Referring Physician Date of Admission Jun 29, 2018 at 02:02 Home Medications & Allergies Home Medications Reviewed patient Home Medication Reconciliation performed by pharmacy medication reconciliations press technician and/or nursing. Patients Allergies have been reviewed. Allergies Allergies Coded Allergies No Known Drug Allergies (Unverified06/29/18) Past Sglrsfj-Yoqzvy-Jhktme Hx Past Med/Social Hx: Reviewed Nursing Past Med/Soc Hx Patient Social History Alcohol Use: Denies Use Recreational Drug Use: Yes (MARIJUANA) Smoking Status: Current Everyday Smoker Former Smoker, Quit: Oct 20, 2014 Type Used: Cigarettes 2nd Hand Smoke Exposure: No Physical Abuse Screen: No Sexual Abuse: No Recent Foreign Travel: No Contact w/other who traveled: No Recent Hopitalizations: No Recent Infectious Disease Expo: No Immunizations Up To Date Tetanus Booster (TDap): Less than 5yrs Pediatric: No Date of Pneumonia Vaccine: Jul 17, 2015 Date of Influenza Vaccine: Jul 17, 2015 Seasonal Allergies Seasonal Allergies: No Past Medical History Surgeries: Cardiac, Prostatectomy Currently Using CPAP: No Currently Using BIPAP: No Cardiac: High Cholesterol, Hypertension Neurological: Neuropathy Reproductive: No Sexually Transmitted Disease: No HIV/AIDS: No Genitourinary: Prostate Problems Gastrointestinal: Chronic Diarrhea, C-Diff Musculoskeletal: Arthritis, Chronic Back Pain Endocrine: Diabetes, Insulin dep HEENT: Glaucoma Loss of Vision: Right Cancer: Prostate What Type of Treatment Did You: Surgical Intervention Psychosocial: Anxiety, Depression History of Blood Disorders: No Adverse Reaction to Blood Benavides: No Family History Family history: Hypertension 03 FATHER, Onset:40's - 50 03 MOTHER, Onset:40's - 50 History of - respiratory disease 03 MOTHER, Onset:50's - 60 Myocardial infarction 03 FATHER 03 MOTHER No Family History of: Abdominal aortic aneurysm [place]'s disease Alcoholism Aphasia Cancer Cancer of colon Cataract Chest pain Congenital heart disease Congestive heart failure Cystic fibrosis Dementia Dysphagia Family history: Allergy Family history: Alzheimer's disease Family history: Arthritis Family history: Asthma Family history: Breast disease Family history: Cardiovascular disease Family history: Coronary thrombosis Family history: Diabetes mellitus Family history: Gastrointestinal disease Family history: Glaucoma Family history: Osteoporosis Family history: Thyroid disorder Headache Hearing loss Heart disease Hereditary disease History of - anemia History of - disorder History of drug abuse Human immunodeficiency virus (HIV) seropositivity Hypercholesterolemia Infertile Kidney disease Malignant neoplasm of lung Parkinson's disease Prostate cancer Psychotic disorder Seizure disorder Stroke Tuberculosis Visual impairment No Pertinent Family Hx, Heart Disease (Father of [place]), Hypertension (mother) Review of Systems Constitutional: see HPI Respiratory: short of breath, other (despite protest of dyspnea his SaO2 on room air was 100 percent.) Cardiovascular: palpitations Gastrointestinal: nausea, vomiting Genitourinary: frequency, hesitancy Musculoskeletal: muscle weakness Skin: no symptoms reported Psychiatric/Neurological: No Symptoms Reported Physical Exam Physical Exam Vital Signs Capillary Refill : Less Than 3 Seconds Height, Weight, BMI Height: 5'6.00" Weight: 145lbs. 5.0oz. [id number]; 23.5 BMI Method:Stated General Appearance: Other (somnolent and is post anesthesia.) Eyes: Bilateral Eye Normal Inspection HEENT: Normal ENT Inspection Neck: Normal Inspection Respiratory: Chest Non Tender, Lungs Clear, Normal Breath Sounds, No Accessory Muscle Use, No Respiratory Distress Cardiovascular: Regular Rate, Rhythm, No Edema, No Gallop, No JVD, No Murmur, Normal Peripheral Pulses, Other (had been in atrial fibrillation with RVR but is in sinus at this time.) Gastrointestinal: Abnormal Bowel Sounds (decreased) Back: Normal Inspection Extremity: Normal Capillary Refill, Normal Inspection, Normal Range of Motion, Non Tender, No Calf Tenderness Skin: Normal Color, Warm/Dry Lymphatic: No Adenopathy Results Results/Procedures Labs Patient resulted labs reviewed. Assessment/Plan Admission Diagnosis Obstructive uropathy. 2.acute renal failure. 3.diabetic ketoacidosis. 4.new A. fib with RVR. Admission Status: Inpatient Order (span 2 midnights) Reason for Inpatient Admission: Metabolic abnormalities expected require with him to midnight Assessment and Plan Insulin drip. Suprapubic cystostomy. Fluid replacement. Cardiology consult. Critical Care Critically Ill Patient Clinical Quality Measures DVT/VTE Risk/Contraindication: Risk Factor Score Per Nursin RFS Level Per Nursing on Admit: 4+=Very High SORIN TALAVERA MD Jun 29, 2018 17:08
[2018-06-29] MEDS ORDERED: LOPERAMIDE 2 MG (IMODIUM) CAP PO PRN (17:15)
[2018-06-29] MEDS: DILTIAZEM 30 MG (CARDIZEM) TAB PO SCH ×2 (17:21→17:23)
[2018-06-29] MEDS: metFORMIN 500 MG (GLUCOPHAGE) TAB PO SCH (18:52)
[2018-06-29] MEDS: HEParin DRIP 25000 UNIT/500ML 500 ML IV SCH (19:00)
[2018-06-29] MEDS ORDERED: NS (IVPB) 100 ML ONE (20:16)
[2018-06-29] MEDS ORDERED: DILTIAZEM 125 MG/25 ML IV (CARDIZEM) IV ONE (20:17)
[2018-06-29] MEDS ORDERED: inSUlin DETERMIR 1000 UNITS/10 ML VIAL (LEVEMIR) SQ SCH (21:00)
[2018-06-29] MEDS: inSUlin DETERMIR 1 UNIT/0.01 ML (LEVEMIR) CHARGE PER UNIT SQ SCH (21:00)
[2018-06-29] MEDS ORDERED: meTOprolol TARTRATE 50 MG (LOPRESSOR) TAB PO SCH (21:00)
[2018-06-29] MEDS ORDERED: NON-FORMULARY MEDICATION 1 EA EA (Mirtazapine 15 MG) PO SCH (21:00)
[2018-06-29] MEDS ORDERED: NON-FORMULARY MEDICATION 1 EA EA (Metformin HCl 500 MG) PO SCH (21:00)
[2018-06-29] MEDS ORDERED: NON-FORMULARY MEDICATION 1 EA EA (Pantoprazole Sodium (Protonix) 20 MG) PO SCH (21:00)
[2018-06-29] MEDS ORDERED: ATORVASTATIN 80 MG (LIPITOR) TABLET PO SCH (21:00)
[2018-06-29] MEDS ORDERED: D5 NS 1000 ML IV SOLUTION 1,000 ML IV ONE (21:32)
[2018-06-29] MEDS: meTOprolol TARTRATE 25 MG (LOPRESSOR) TABLET PO SCH (21:57)
[2018-06-29] MEDS: PREGABALIN 100 MG (LYRICA) CAPSULE PO SCH (21:58)
[2018-06-29] MEDS: MIRTAZAPINE 15 MG (REMERON) TAB PO SCH (21:58)
[2018-06-29] MEDS: PANTOPRAZOLE 20 MG TABLET (PROTONIX) PO SCH (21:58)
[2018-06-29] MEDS: ATORVASTATIN 40 MG (LIPITOR) TABLET PO SCH (21:58)
[2018-06-29] MEDS ORDERED: DEXTROSE 50% 50 ML (IMS) SYR IV PRN (22:00)
[2018-06-29] MEDS ORDERED: D5 NS 1000 ML IV SOLUTION 1,000 ML IV SCH (22:00)
[2018-06-29] MEDS ORDERED: GLUCAGON EMERGENCY 1 MG/KIT IM PRN (22:00)
[2018-06-30] VITALS (25 sets, daily range): BP systolic 92–143; BP diastolic 57–78
[2018-06-30] MEDS: DILTIAZEM 30 MG (CARDIZEM) TAB PO SCH
[2018-06-30] MEDS ORDERED: NS IV 1000 ML 1,000 ML IV SCH ×2 (00:59→04:15)
[2018-06-30] MEDS: VASOPRESSIN INJECTION 20 UNIT in NS (IVPB) 100 ML IV SCH ×4 (02:31→20:45)
[2018-06-30] MEDS: cefTRIAXone FOR IV USE 1,000 MG in NS (IVPB) 50 ML IV SCH (02:40)
[2018-06-30] MEDS: NS IV 1000 ML 1,000 ML IV SCH (02:42)
[2018-06-30 04:52] LABS: BASOPHILS % (AUTO) 0 % (0-10); EOSINOPHILS % (AUTO) 0 % (0-10); HEMATOCRIT 26 % (40-54); HEMOGLOBIN 8.7 G/DL (13.3-17.7); LYMPHOCYTES # (AUTO) 1.4 X 10^3 (1.0-4.0); LYMPHOCYTES % (AUTO) 11 % (12-44); MEAN CORPUSCULAR HEMOGLOBIN 30 PG (25-34); MEAN CORPUSCULAR HGB CONC 34 G/DL (32-36); MEAN CORPUSCULAR VOLUME 87 FL (80-99); MEAN PLATELET VOLUME 10.9 FL (7.4-10.4); MONOCYTES # (AUTO) 0.8 X 10^3 (0.0-1.0); MONOCYTES % (AUTO) 7 % (0-12); NEUTROPHILS # (AUTO) 10.2 X 10^3 (1.8-7.8); NEUTROPHILS % (AUTO) 82 % (42-75); PLATELET COUNT 390 10^3/uL (130-400); RED BLOOD COUNT 2.94 10^6/uL (4.35-5.85); RED CELL DISTRIBUTION WIDTH 13.1 % (10.0-14.5); WHITE BLOOD COUNT 12.4 10^3/uL (4.3-11.0)
[2018-06-30 05:11] LABS: BILIRUBIN,TOTAL 0.3 MG/DL (0.1-1.0); CALCIUM 8.3 MG/DL (8.5-10.1); CREATININE SERUM 1.58 MG/DL (0.60-1.30); MAGNESIUM 1.8 MG/DL (1.8-2.4); PHOSPHORUS 2.6 MG/DL (2.3-4.7); POTASSIUM 4.2 MMOL/L (3.6-5.0); TOTAL PROTEIN 5.6 GM/DL (6.4-8.2)
--- NOTE | 2018-06-30 05:43 | Pulmonary Progress Note ---
Subjective Time Seen by Provider: 05:49 Subjective/Events-last exam PT appears to be back in DKA. Sepsis Event Evaluation Height, Weight, BMI Height: 5'6.00" Weight: 145lbs. 5.0oz. 65.288640ro; 23.5 BMI Method:Stated Focused Exam Lactate Level 06/28/18 23:28: Lactic Acid Level 1.68 Time of Focused Exam: 23:20 Exam Exam Vital Signs Date Time Temp Pulse Resp B/P (MAP) Pulse Ox O2 Delivery O2 Flow Rate FiO2 06/30/18 04:00 Room Air 06/30/18 03:00 56 21 111/62 (78) 98 Room Air 06/30/18 02:49 50 06/30/18 02:00 63 17 101/65 (77) 97 Room Air 06/30/18 01:00 63 11 92/64 (73) 95 Room Air 06/30/18 01:00 63 06/30/18 00:00 Room Air 06/30/18 00:00 98.9 82 20 94/62 (73) 95 Room Air 06/29/18 23:00 92 14 98/77 (84) 96 Room Air 06/29/18 22:00 93 18 110/67 (81) 94 Room Air 06/29/18 21:45 99 15 108/65 (79) 93 Room Air 06/29/18 21:30 108 19 98/66 (77) 93 Room Air 06/29/18 21:15 117 15 115/65 (82) 93 Room Air 06/29/18 21:00 122 22 121/71 (88) 93 Room Air 06/29/18 20:45 156 18 161/91 (114) 94 Room Air 06/29/18 20:30 141 29 138/76 (96) 92 Room Air 06/29/18 20:23 163 06/29/18 20:15 170 25 158/95 (116) 98 Room Air 06/29/18 20:03 164 06/29/18 20:03 164 13 98 Room Air 06/29/18 20:00 Room Air 06/29/18 20:00 97.8 99 22 145/66 (92) 97 Room Air 06/29/18 19:00 81 12 100/66 (77) 95 Room Air 06/29/18 19:00 81 06/29/18 18:00 80 12 130/79 (96) 96 Room Air 06/29/18 17:34 98 Room Air 06/29/18 17:00 82 13 148/80 (102) 97 Nasal Cannula 2.00 06/29/18 16:10 Nasal Cannula 2.00 06/29/18 16:08 97.6 Nasal Cannula 2.00 06/29/18 16:00 80 11 122/74 (90) 99 Nasal Cannula 2.00 06/29/18 15:50 Nasal Cannula 2.00 06/29/18 15:00 100 10 105/75 (85) 100 Nasal Cannula 2.00 06/29/18 14:00 107 12 119/74 (89) 98 Nasal Cannula 2.00 06/29/18 13:00 112 06/29/18 11:00 106 15 134/86 (102) 98 Room Air 06/29/18 10:00 103 18 139/75 (96) 97 Room Air 06/29/18 09:00 89 15 113/87 (96) 94 Room Air 06/29/18 08:19 97.3 Room Air 06/29/18 08:15 Room Air 06/29/18 08:00 87 7 96/62 (73) 95 Room Air 06/29/18 07:00 106 06/29/18 07:00 97 8 112/64 (80) 96 Room Air 06/29/18 06:00 101 14 114/69 (84) 96 Room Air 06/29/18 05:45 88 20 101/64 (76) 97 Room Air I & O 06/30/18 07:00 Intake Total 2265 ml Output Total 850 ml Balance 1415 ml Height & Weight Height: 5'6.00" Weight: 145lbs. 5.0oz. 65.691508lf; 23.5 BMI Method:Stated General Appearance: No Apparent Distress HEENT: Normal ENT Inspection Neck: Normal Inspection Respiratory: Chest Non Tender, Lungs Clear, Normal Breath Sounds, No Accessory Muscle Use, No Respiratory Distress Cardiovascular: Regular Rate, Rhythm, No Edema, No Gallop, No JVD, No Murmur, Normal Peripheral Pulses, Other (had been in atrial fibrillation with RVR but is in sinus at this time.) Capillary Refill: Less Than 3 Seconds Gastrointestinal: normal bowel sounds, non tender, soft, no organomegaly, no pulsatile mass Extremity: Normal Capillary Refill, Normal Inspection, Normal Range of Motion, Non Tender, No Calf Tenderness Neurologic/Psychiatric: Alert, Oriented x3, No Motor/Sensory Deficits, Normal Mood/Affect Skin: Normal Color, Warm/Dry Lymphatic: No Adenopathy Results Lab Laboratory Tests 06/28/18 21:58 06/29/18 04:32 06/29/18 07:31 06/29/18 09:35 06/29/18 13:50 06/30/18 04:35 Assessment/Plan Assessment/Plan Sepsis with UTI -Continue Rocephin Acute DKA - -DKA protocol was stopped at 1030 yesterday morning. -Co02 is now back down to 16. GAP is still closed. I suspect this is secondary to worsening DKA however possibly secondary to renal function vs LA. -Will restart DKA protocol for now. I will also check urine keystones and LA. -I recommend keeping DKA protocol until C02 is closer to 20 and giving long acting insulin 2hrs before insulin gtt is d/c'd -IVF - Continue Oliguria -Check Bladder scan -Pt now has suprapubic catheter -Urology and surgery are following Metabolic encephalopathy -Pt appears confused however recently received Lortab Afib -Cardizem gtt -Cardiology consulted -hep gtt Hypokalemia -Replace ARF -IVF and continue to monitor -Check bilateral renal US APARNA VAZQUEZ DO Jun 30, 2018 05:43
[2018-06-30 06:10] LABS: BILIRUBIN,URINE NEGATIVE (NEGATIVE); CLARITY,URINE CLEAR; COLOR,URINE YELLOW; GLUCOSE, URINE (UA) 3+ (NEGATIVE); KETONES,URINE 1+ (NEGATIVE); LEUKOCYTE ESTERASE ,URINE 2+ (NEGATIVE); NITRITE,URINE NEGATIVE (NEGATIVE); PH,URINE 5 (5-9); PROTEIN,URINE 3+ (NEGATIVE); UROBILINOGEN,URINE NORMAL (NORMAL)
[2018-06-30] MEDS ORDERED: inSUlin (REGULAR) HUMAN 1 UNIT/0.01 ML (CHARGE PER UNIT) SC NR (06:15)
[2018-06-30 06:29] LABS: CALCIUM 8.5 MG/DL (8.5-10.1); CREATININE SERUM 1.62 MG/DL (0.60-1.30); MAGNESIUM 1.8 MG/DL (1.8-2.4); PHOSPHORUS 2.4 MG/DL (2.3-4.7); POTASSIUM 4.3 MMOL/L (3.6-5.0)
[2018-06-30 06:36] LABS: BACTERIA,URINE MODERATE /HPF; WBC,URINE 25-50 /HPF
[2018-06-30] MEDS ORDERED: D5 1/2 NS 1000 ML IV SOLUTION 1,000 ML IV SCH (07:00)
--- NOTE | 2018-06-30 07:20 | Cardiology Progress Note ---
Subjective Date Seen by Provider: Jun 30, 2018 Time Seen by Provider: 07:18 Subjective/Events-last exam Patient is laying down in bed, feeling better, had another episode of atrial fibrillation last night converted to sinus rhythm, currently in sinus rate cardiac. Reported having chest pain earlier this morning, currently chest pain- free. Review of Systems General: No Chills, No Night Sweats, No Fatigue, No Malaise, No Appetite, No Other HEENT: No Head Aches, No Visual Changes, No Eye Pain, No Ear Pain, No Dysphasia , No Sinus Congestion, No Post Nasal Drip, No Sore Throat, No Other Pulmonary: No Dyspnea, No Cough, No Pleuritic Chest Pain, No Other Cardiovascular: Chest Pain; No: Palpitations, Orthopnea, Paroxysmal Noc. Dyspnea, Edema, Lt Headedness, Other Focused Exam Lactate Level 06/28/18 23:28: Lactic Acid Level 1.68 Time of Focused Exam: 23:20 Objective-Cardiology Exam Last Set of Vital Signs Vital Signs 06/29/18 06/30/18 17:00 06:00 Pulse 64 Resp 9 B/P (MAP) 136/78 (97) Pulse Ox 98 O2 Delivery Room Air O2 Flow Rate 2.00 Capillary Refill : Less Than 3 Seconds I&O Intake and Output 06/30/18 00:00 Intake Total 4315 ml Output Total 750 ml Balance 3565 ml Intake Oral 240 ml IV Total 4075 ml Output Urine Total 750 ml # Voids 1 Daily Weight Change No General: Alert, Oriented X3, Cooperative HEENT: Atraumatic, PERRLA Neck: Supple, No JVD, No Thyromegaly Lungs: Clear to Auscultation, Normal Air Movement Heart: Regular Rate, Normal S1, Normal S2, No Murmurs Abdomen: Normal Bowel Sounds, Soft, No Tenderness, No Hepatosplenomegaly, No Masses Extremities: No Clubbing, No Cyanosis, No Edema, Normal Pulses, No Tenderness/ Swelling Skin: No Rashes, No Breakdown, No Significant Lesion Neuro: Normal Gait, Normal Speech, Strength at 5/5 X4 Ext, Normal Tone, Sensation Intact Psych/Mental Status: Mental Status NL, Mood NL Results Lab Laboratory Tests 06/29/18 07:31 06/29/18 09:35 06/29/18 13:50 06/30/18 04:35 06/30/18 06:05 A/P-Cardiology Admission Diagnosis Diabetic ketoacidosis Acute renal failure Atrial fibrillation Hypertension Assessment/Plan Paroxysmal atrial fibrillation, back to sinus rhythm, continue on Cardizem orally, I will start long-acting Cardizem for now and monitor his tolerance and response. Stop Cardizem drip and continue on heparin Chest pain nonspecific etiology, planning to evaluate stress test tomorrow Diabetic ketoacidosis, better at this time. Continue to monitor Metabolic encephalopathy, better at this time, continue to monitor Hypertension, better at this time status post hypotension, continue to monitor Tobaccoism, educated on smoking cessation Acute renal failure, receiving IV fluid, improving slowly. Continue to monitor renal function Electrolyte imbalance secondary to metabolic acidosis and DKA. Better at this time. Continue to monitor Generalized weakness and loss of energy. Nausea and vomiting, reporting improvement. Continue to monitor Clinical Quality Measures DVT/VTE Risk/Contraindication: Risk Factor Score Per Nursin RFS Level Per Nursing on Admit: 4+=Very High LOREE HUERTA MD Jun 30, 2018 07:20
[2018-06-30] MEDS ORDERED: DILTIAZEM 30 MG (CARDIZEM) TAB ONE (07:22)
[2018-06-30] MEDS: KCL 20 MEQ TAB (K-DUR) PO SCH (07:27)
[2018-06-30] MEDS: POTASSIUM CL 10MEQ/50ML IVPB 50 ML IV SCH (07:27)
[2018-06-30] MEDS: MAGNESIUM 1 GM/100 ML IVPB 100 ML IV SCH ×3 (07:27→14:09)
[2018-06-30] MEDS: NOREPINEPHRINE 4 MG in NS (IVPB) 250 ML IV SCH ×2 (07:28→19:31)
[2018-06-30] MEDS: PANTOPRAZOLE 20 MG TABLET (PROTONIX) PO SCH ×2 (07:32→20:49)
[2018-06-30] MEDS: metFORMIN 500 MG (GLUCOPHAGE) TAB PO SCH (07:34)
[2018-06-30] MEDS: D5 1/2 NS W/KCL 20 MEQ/L 1,000 ML IV SCH ×5 (08:20→18:33)
[2018-06-30] MEDS: inSUlin REGULAR TPN/DRIP 250 UNITS/NS 250 ML IV SCH ×2 (08:20)
[2018-06-30 08:32] LABS: CALCIUM 8.2 MG/DL (8.5-10.1); CREATININE SERUM 1.56 MG/DL (0.60-1.30); MAGNESIUM 1.6 MG/DL (1.8-2.4); POTASSIUM 3.9 MMOL/L (3.6-5.0)
--- NOTE | 2018-06-30 08:39 | Progress Note-Urology ---
Progress Note-Urology Progress Notes/Assess & Plan Progress/Assessment & Plan PERCUTANEOUS SP TUBE WORKING WELL. URINE CLEAR. ONCE STABLE, RECOVERED WELL WE WILL DEAL WITH THE SEVERE PHIMOSIS, MEATAL STENOSIS, AND FURTHER STRICTURES. THIS WAS FULLY EXPLAINED TO THE PATIENT Final Diagnosis URINE RETENTION, MEATAL STENOSIS, AND STRICTURE BARBARA LEMUS MD Jun 30, 2018 8:39 am
--- NOTE | 2018-06-30 09:11 | Diagnostic Imaging Report ---
INDICATION: Atrial fibrillation with rapid ventricular response. Severe sepsis. Diabetic ketoacidosis. TECHNIQUE: Single view chest 3:34 AM. CORRELATION STUDY: 06/29/2018 FINDINGS: Heart size and mediastinum appearing stable. Vascular is very slightly prominent. Chronic type change about the lung parenchyma. No definitive focal infiltrate. Mildly prominent interstitial markings. IMPRESSION: 1. Vasculature slightly increased with evidence for overt failure. Component of mild interstitial edema however is suggested. No significant infiltrate. Dictated by: Dictated on workstation # [id number]
[2018-06-30] MEDS: HEParin DRIP 25000 UNIT/500ML 500 ML IV SCH (09:20)
[2018-06-30] MEDS: meTOprolol TARTRATE 25 MG (LOPRESSOR) TABLET PO SCH ×2 (09:30→20:50)
[2018-06-30] MEDS: FOLIC ACID 1 MG TAB PO SCH (09:30)
[2018-06-30] MEDS: PREGABALIN 100 MG (LYRICA) CAPSULE PO SCH ×3 (09:30→20:49)
[2018-06-30] MEDS: DULoxetine 30 MG (CYMBALTA) CAP PO SCH (09:30)
[2018-06-30] MEDS: DILTIAZEM 120 MG (CARDIZEM CD) CAP PO SCH (09:30)
[2018-06-30] MEDS: CYANOCOBALAMIN 1,000 MCG (VITAMIN B-12) TABLET PO SCH (09:30)
[2018-06-30 10:24] LABS: CALCIUM 8.4 MG/DL (8.5-10.1); CREATININE SERUM 1.59 MG/DL (0.60-1.30); MAGNESIUM 1.7 MG/DL (1.8-2.4); PHOSPHORUS 1.6 MG/DL (2.3-4.7); POTASSIUM 3.8 MMOL/L (3.6-5.0)
[2018-06-30 12:01] LABS: CALCIUM 8.5 MG/DL (8.5-10.1); CREATININE SERUM 1.57 MG/DL (0.60-1.30); MAGNESIUM 1.7 MG/DL (1.8-2.4); PHOSPHORUS 1.5 MG/DL (2.3-4.7); POTASSIUM 3.8 MMOL/L (3.6-5.0)
[2018-06-30] MEDS: HYDROcodone/APAP 10 MG/325 MG (LORTAB) TAB PO PRN ×2 (12:21→19:54)
[2018-06-30] MEDS: 1/2 NS IV SOLUTION 1,000 ML IV SCH ×5 (13:08→23:19)
[2018-06-30] MEDS: 1/2 NS W/KCL 20 MEQ/L 1,000 ML IV SCH ×5 (13:09→23:20)
[2018-06-30] MEDS ORDERED: POTASSIUM PHOSPHATE INJ 30 MM in NS (IVPB) 250 ML IV ONE (13:15)
--- NOTE | 2018-06-30 15:20 | Progress Note-Hospitalist ---
Progress Note Progress Notes/Assess & Plan Date Seen 06/30/18 Time Seen by Provider: 15:16 Assessment & Plan The patient was in his recliner at bedside. He was alert and oriented and actively engaged with the conversation of friends and family. He reports to feeling better today. Physical exam: He is bright and cheerful. Lungs are clear to auscultation. CV is regular without murmur. Abdomen was soft. Curiously even with the suprapubic catheter and generous IV fluids his output was 750 yesterday with intake of 3500 and today thus far 575 out and 2800 in. Blood sugars have been running in the low to mid 200s and Dr. John has put him back on at insulin drip. Impression: A. fib now resolved. Sepsis. Hyperglycemia. Focused Exam Lactate Level 06/28/18 23:28: Lactic Acid Level 1.68 Time of Focused Exam: 23:20 SORIN TALAVERA MD Jun 30, 2018 15:20
--- NOTE | 2018-06-30 16:17 | OPERATIVE REPORT ---
DATE OF SERVICE: 06/29/2018 PREOPERATIVE DIAGNOSES: 1. Urinary retention. 2. Hematemesis. 3. Hypokalemia. 4. Atrial fibrillation. POSTOPERATIVE DIAGNOSES: 1. Urinary retention. 2. Hematemesis. 3. Hypokalemia. 4. Atrial fibrillation. PROCEDURES: 1. Open suprapubic tube placement. 2. EGD with polypectomy. SURGEON: Edvin Hernandez DO WOOL CARDER: Karl Amaya DO ANESTHESIA: LMA. SPECIMEN: Polyp from the duodenum. BLOOD LOSS: Scant. FLUIDS: Per anesthesia. POSTOPERATIVE CONDITION: Stable. INDICATION FOR PROCEDURE: The patient is a 57-year-old male who unfortunately had urinary retention, unable to get a Dawson in. He needed adequate I's and O's and so needed a suprapubic tube placement. He also had an episode of hematemesis and needed an EGD. FINDINGS: The patient had suprapubic tube placement and he had a polyp seen in the duodenum. No active ulcers or old ulcers seen in the stomach. PROCEDURE NOTE: After informed consent was obtained, the patient was brought to the operating room. He was placed on the table in supine position. He was sterilely prepped and draped in normal fashion first doing the suprapubic tube placement. A midline incision was made after infiltrating the skin with local. I made an incision with #15 blade, carried down through the skin into the subcutaneous tissue, then deepened down to subcutaneous tissue with Bovie electrocautery down to the fascia. Fascia was then gently opened into the preperitoneal space, saw the bladder, placed a needle using negative inspiration into the bladder, got a good flash of urine through the needle. I then made a stab incision over the needle with #11 blade and then gently opened with a hemostat, immediately got out urine , placed a Dawson catheter into the bladder. At this point, then closed around this with 0 chromic [id number]-yv-tzpbm suture to close this and then closed the fascia with a xsntoz-xp-iizna 0 Vicryl suture one above the suprapubic tube and one below. Copiously irrigated with normal saline and then closed the skin with imelda around the suprapubic tube. At this point, then went to the top and inserted the EGD scope down the mouth into the esophagus looking for reasons for hematemesis, pushed into the stomach, antrum looked okay, pushed into the duodenum, saw a polyp. Elected to do a polypectomy, removed this with snare polypectomy, suctioned this up, sent to pathology. Pulled back, did not really see any inflammation of the antrum, did see what looked like old blood, but flushed this away, did not see any ulcers. The rest of the stomach looked normal. No hiatal hernia. Wondering if maybe this blood came from above, possibly like the patient's lip or nose. GE junction looked fine and pulled the scope out of the stomach, out the esophagus and out the mouth. He tolerated the procedure and was transferred to recovery room in stable condition. Sponge, instrument and needle count correct at the end of the case. Dr. Amaya assisted with the suprapubic catheter, helping to identify anatomy, hold tissue out of the way and then close incision. Job ID: [id number] DocumentID: [id number] Dictated Date: 06/30/2018 11:11:13 Paint Sprayer Sandblaster Date: 06/30/2018 16:17:06 Dictated By: DO KATIE WEBSTER
[2018-06-30 16:35] LABS: CALCIUM 8.2 MG/DL (8.5-10.1); CREATININE SERUM 1.43 MG/DL (0.60-1.30); MAGNESIUM 2.4 MG/DL (1.8-2.4); PHOSPHORUS 3.3 MG/DL (2.3-4.7)
[2018-06-30] MEDS: DEXTROSE 10% IV SOLUTION 1,000 ML IV PRN (19:51)
[2018-06-30 20:39] LABS: CALCIUM 8.2 MG/DL (8.5-10.1); CREATININE SERUM 1.36 MG/DL (0.60-1.30); MAGNESIUM 2.3 MG/DL (1.8-2.4); PHOSPHORUS 3.3 MG/DL (2.3-4.7); POTASSIUM 4.7 MMOL/L (3.6-5.0)
[2018-06-30] MEDS: inSUlin DETERMIR 1 UNIT/0.01 ML (LEVEMIR) CHARGE PER UNIT SQ SCH (20:49)
[2018-06-30] MEDS: ATORVASTATIN 40 MG (LIPITOR) TABLET PO SCH (20:50)
[2018-06-30] MEDS: MIRTAZAPINE 15 MG (REMERON) TAB PO SCH (20:50)
[2018-07-01] VITALS: BP 136/81
[2018-07-01 00:42] LABS: BUN/CREATININE RATIO 16; CALCIUM 8.2 MG/DL (8.5-10.1); CARBON DIOXIDE 17 MMOL/L (21-32); CHLORIDE 113 MMOL/L (98-107); CREATININE SERUM 1.22 MG/DL (0.60-1.30); GFR ESTIMATED > 60; GLUCOSE 162 MG/DL (70-105); MAGNESIUM 2.3 MG/DL (1.8-2.4); PHOSPHORUS 3.1 MG/DL (2.3-4.7); POTASSIUM 4.5 MMOL/L (3.6-5.0); SODIUM 137 MMOL/L (135-145)
[2018-07-01 01:00] VITALS: BP 119/67
[2018-07-01 02:00] VITALS: BP 124/90
[2018-07-01] MEDS: cefTRIAXone FOR IV USE 1,000 MG in NS (IVPB) 50 ML IV SCH (02:13)
[2018-07-01] MEDS: HYDROcodone/APAP 10 MG/325 MG (LORTAB) TAB PO PRN (02:59)
[2018-07-01] MEDS: DEXTROSE 10% IV SOLUTION 1,000 ML IV PRN (02:59)
[2018-07-01 03:00] VITALS: BP 128/71
[2018-07-01] MEDS: 1/2 NS W/KCL 20 MEQ/L 1,000 ML IV SCH ×2 (03:05→05:15)
[2018-07-01] MEDS: 1/2 NS IV SOLUTION 1,000 ML IV SCH ×2 (03:05→05:15)
[2018-07-01] MEDS: D5 1/2 NS W/KCL 20 MEQ/L 1,000 ML IV SCH ×2 (03:06→05:15)
[2018-07-01] MEDS: VASOPRESSIN INJECTION 20 UNIT in NS (IVPB) 100 ML IV SCH (03:36)
[2018-07-01 04:47] LABS: BASOPHILS % (AUTO) 0 % (0-10); EOSINOPHILS # (AUTO) 0.1 10^3/uL (0.0-0.3); EOSINOPHILS % (AUTO) 1 % (0-10); HEMATOCRIT 25 % (40-54); HEMOGLOBIN 8.5 G/DL (13.3-17.7); LYMPHOCYTES # (AUTO) 1.8 X 10^3 (1.0-4.0); LYMPHOCYTES % (AUTO) 20 % (12-44); MEAN CORPUSCULAR HEMOGLOBIN 30 PG (25-34); MEAN CORPUSCULAR HGB CONC 34 G/DL (32-36); MEAN CORPUSCULAR VOLUME 89 FL (80-99); MEAN PLATELET VOLUME 10.9 FL (7.4-10.4); MONOCYTES # (AUTO) 0.9 X 10^3 (0.0-1.0); MONOCYTES % (AUTO) 10 % (0-12); NEUTROPHILS # (AUTO) 6.4 X 10^3 (1.8-7.8); NEUTROPHILS % (AUTO) 70 % (42-75); PLATELET COUNT 347 10^3/uL (130-400); RED BLOOD COUNT 2.86 10^6/uL (4.35-5.85); RED CELL DISTRIBUTION WIDTH 13.4 % (10.0-14.5); WHITE BLOOD COUNT 9.2 10^3/uL (4.3-11.0)
[2018-07-01 05:00] VITALS: BP 119/61
[2018-07-01 05:02] LABS: ALANINE AMINOTRANSFERASE 12 U/L (0-55); ALKALINE PHOSPHATASE 123 U/L (40-136); BILIRUBIN,TOTAL 0.2 MG/DL (0.1-1.0); BUN/CREATININE RATIO 15; CALCIUM 8.4 MG/DL (8.5-10.1); CARBON DIOXIDE 18 MMOL/L (21-32); CHLORIDE 114 MMOL/L (98-107); CREATININE SERUM 1.12 MG/DL (0.60-1.30); GFR ESTIMATED > 60; GLUCOSE 124 MG/DL (70-105); MAGNESIUM 2.3 MG/DL (1.8-2.4); POTASSIUM 4.3 MMOL/L (3.6-5.0); SODIUM 140 MMOL/L (135-145); TOTAL PROTEIN 5.7 GM/DL (6.4-8.2)
[2018-07-01] MEDS: MAGNESIUM 1 GM/100 ML IVPB 100 ML IV SCH (05:15)
[2018-07-01] MEDS: POTASSIUM CL 10MEQ/50ML IVPB 50 ML IV SCH (05:15)
[2018-07-01] MEDS: KCL 20 MEQ TAB (K-DUR) PO SCH (05:15)
[2018-07-01 06:00] VITALS: BP 120/56
--- NOTE | 2018-07-01 07:04 | Pulmonary Progress Note ---
Subjective Time Seen by Provider: 09:40 Subjective/Events-last exam Called to bedside secondary to patient becoming acutely unresponsive. 3 RN's at bedside taking vitals and labs. BS is >150 taken x 2. Pt will squeeze hand on right side however will not squeeze hand on Left. He will move toes on right but not left. He is currently aphasic and will not answer questions. Stat head CT ordered. Sepsis Event Evaluation Height, Weight, BMI Height: 5'6.00" Weight: 147lbs. 5.0oz. 66.591685el; 23.5 BMI Method:Stated Focused Exam Lactate Level 06/28/18 23:28: Lactic Acid Level 1.68 Time of Focused Exam: 23:20 Exam Exam Vital Signs Date Time Temp Pulse Resp B/P (MAP) Pulse Ox O2 Delivery O2 Flow Rate FiO2 07/01/18 06:00 60 27 120/56 (77) 97 Room Air 07/01/18 05:00 61 23 119/61 (80) 98 Room Air 07/01/18 04:00 64 8 93 Room Air 07/01/18 03:30 96 Room Air 07/01/18 03:00 68 24 128/71 (90) 94 Room Air 07/01/18 02:00 60 20 124/90 (101) 98 Room Air 07/01/18 01:00 60 17 119/67 (84) 96 Room Air 07/01/18 01:00 60 07/01/18 00:00 60 22 136/81 (99) 93 Room Air 06/30/18 23:53 97.7 06/30/18 23:20 95 Room Air 06/30/18 23:00 74 22 122/70 (87) 96 Room Air 06/30/18 22:00 60 21 118/66 (83) 96 Room Air 06/30/18 21:00 61 20 121/62 (81) 92 Room Air 06/30/18 20:00 66 21 130/67 (88) 96 Room Air 06/30/18 19:45 97.0 72 25 92/69 (77) 99 Room Air 06/30/18 19:45 97 Room Air 06/30/18 19:00 62 06/30/18 19:00 61 29 126/64 (84) 93 Room Air 06/30/18 18:00 61 26 106/57 (73) 94 Room Air 06/30/18 17:00 61 34 116/68 (84) 93 Room Air 06/30/18 16:02 Room Air 06/30/18 16:02 97.8 06/30/18 16:00 66 26 121/62 (81) 95 Room Air 06/30/18 15:00 68 38 130/64 (86) 95 Room Air 06/30/18 14:00 66 25 124/61 (82) 98 Room Air 06/30/18 13:00 82 06/30/18 13:00 73 29 132/66 (88) 97 Room Air 06/30/18 12:15 Room Air 06/30/18 12:15 98.5 Room Air 06/30/18 12:00 73 27 139/74 (95) 97 Room Air 06/30/18 11:00 72 23 132/70 (90) 98 Room Air 06/30/18 10:00 72 18 130/62 (84) 97 Room Air 06/30/18 09:00 71 11 132/67 (88) 99 Room Air 06/30/18 08:35 98.5 Room Air 06/30/18 08:35 Room Air 06/30/18 08:00 66 12 143/77 (99) 100 Room Air I & O 07/01/18 07:00 Intake Total 6850 ml Output Total 2625 ml Balance 4225 ml Height & Weight Height: 5'6.00" Weight: 147lbs. 5.0oz. 66.981417zc; 23.5 BMI Method:Stated General Appearance: Other (lethargic and gazing to right) HEENT: Normal ENT Inspection, Other (dilated on right and unresponsive on left ) Neck: Normal Inspection Respiratory: Chest Non Tender, Normal Breath Sounds, No Accessory Muscle Use, No Respiratory Distress, Decreased Breath Sounds Cardiovascular: Regular Rate, Rhythm, No Edema, No Gallop, No JVD, No Murmur, Normal Peripheral Pulses, Other (had been in atrial fibrillation with RVR but is in sinus at this time.) Capillary Refill: Less Than 3 Seconds Gastrointestinal: normal bowel sounds, non tender, soft, no organomegaly, no pulsatile mass Extremity: Normal Capillary Refill, Normal Inspection Neurologic/Psychiatric: Alert, Oriented x3, No Motor/Sensory Deficits, Normal Mood/Affect Skin: Normal Color, Warm/Dry Lymphatic: No Adenopathy Results Lab Laboratory Tests 06/29/18 07:31 06/29/18 09:35 06/29/18 13:50 06/30/18 04:35 06/30/18 06:05 06/30/18 07:58 06/30/18 09:55 06/30/18 11:32 06/30/18 16:10 06/30/18 20:15 07/01/18 00:15 07/01/18 04:00 Assessment/Plan Assessment/Plan Acute MS change -highly suspicious for acute CVA-- flaccid paralysis on left. he does move right upon request. He is gazing to the right side. -BS is >150x 2 -D/w Dr. Hernandez (surgery) he is ok with TPA if needed -Occult stool is positive -STAT CT head is negative for acute bleed -Heparin gtt was D/C'd at 1020 -Lovenox 40mg sub Q was given this morning at 7:30am -ABG pending -Last known well time is 0730. found unresponsive at 8:25 -NIH is 36 -Neuro MED called and recommend transfer Possible GIB - occult stool is positive -MOnitor Hb -Hb has been relatively stable Hx of glaucoma and eye surgeries Sepsis with UTI -- much improved -Continue Rocephin Acute DKA - imroving -C02 is 19 and GAP is closed -IVF are D5W currently -C02 is improving again with restart of DKA protocol -DKA protocol -IVF - Continue Oliguria s/p suprapubic catheter -Check Bladder scan -Pt now has suprapubic catheter -Urology and surgery are following Afib -Cardizem gtt is now off -Cardiology consulted ARF -IVF and continue to monitor After discussion with doctor will transfer pt per their recommendations. I called and discussed patient with Dr. Hernandez, Dr. Cope, Dr. Su, all RN's involved in patients care and family. I called and she is ok with transfer to . I did explain to her he had an acute CVA. SHe understands the risk and benefits of transfer. Total time spent with patient , medical team, and discussing with family is 120min. Critical Care: Critically Ill Patient Time spent with patient (mins): 120 APARNA VAZQUEZ DO Jul 01, 2018 07:04
--- NOTE | 2018-07-01 07:18 | Diagnostic Imaging Report ---
INDICATION: Atrial fibrillation. Sepsis. Diabetic ketoacidosis. COMPARISON: 06/30/2018 FINDINGS: Single frontal view of the chest demonstrates normal heart size and pulmonary vascularity. The lungs are well aerated and clear. No large pleural effusion or pneumothorax is seen. The visualized osseous structures show no acute abnormalities. IMPRESSION: 1. No acute cardiopulmonary process. Dictated by: Dictated on workstation # [id number]
--- NOTE | 2018-07-01 07:28 | Cardiology Progress Note ---
Subjective Date Seen by Provider: Jul 01, 2018 Time Seen by Provider: 07:25 Subjective/Events-last exam patient is laying down in a chair. Refusing to stay in bed. Denied any palpitation, no chest pain, heart rate is controlled, back to sinus rhythm Review of Systems General: No Chills, No Night Sweats; Fatigue; No Malaise, No Appetite, No Other HEENT: No Head Aches, No Visual Changes, No Eye Pain, No Ear Pain, No Dysphasia , No Sinus Congestion, No Post Nasal Drip, No Sore Throat, No Other Pulmonary: No Dyspnea, No Cough, No Pleuritic Chest Pain, No Other Cardiovascular: No: Chest Pain, Palpitations, Orthopnea, Paroxysmal Noc. Dyspnea, Edema, Lt Headedness, Other Focused Exam Lactate Level 06/28/18 23:28: Lactic Acid Level 1.68 Time of Focused Exam: 23:20 Objective-Cardiology Exam Last Set of Vital Signs Vital Signs 06/29/18 06/30/18 07/01/18 17:00 23:53 06:00 Temp 97.7 Pulse 60 Resp 27 B/P (MAP) 120/56 (77) Pulse Ox 97 O2 Delivery Room Air O2 Flow Rate 2.00 Capillary Refill : Less Than 3 Seconds I&O Intake and Output 07/01/18 00:00 Intake Total 5890 ml Output Total 1825 ml Balance 4065 ml Intake Oral 2080 ml IV Total 3810 ml Output Urine Total 1825 ml # Bowel Movements 1 General: Alert, Oriented X3, Cooperative HEENT: Atraumatic, PERRLA Neck: Supple, No JVD, No Thyromegaly Lungs: Clear to Auscultation, Normal Air Movement Heart: Regular Rate, Normal S1, Normal S2, No Murmurs Abdomen: Normal Bowel Sounds, Soft, No Tenderness, No Hepatosplenomegaly, No Masses Extremities: No Clubbing, No Cyanosis, No Edema, Normal Pulses, No Tenderness/ Swelling Skin: No Rashes, No Breakdown, No Significant Lesion Neuro: Normal Gait, Normal Speech, Strength at 5/5 X4 Ext, Normal Tone, Sensation Intact Psych/Mental Status: Mental Status NL, Mood NL Results Lab Laboratory Tests 06/30/18 07:58 06/30/18 09:55 06/30/18 11:32 06/30/18 16:10 06/30/18 20:15 07/01/18 00:15 07/01/18 04:00 A/P-Cardiology Admission Diagnosis Diabetic ketoacidosis Acute renal failure Atrial fibrillation Hypertension Assessment/Plan Paroxysmal atrial fibrillation, back to sinus rhythm, tolerating Cardizem by mouth well. Continue to monitor heart rate and blood pressure. [id number] score is 2, yearly risk of stroke without oral anticoagulation is 2.2 percent. Cannot tolerate long-term anticoagulation due to lower GI bleed. I will use Lovenox with DVT prophylaxis Anemia, worsening, lower GI bleed. Workup is in progress. Chest pain nonspecific etiology, having stress test today Diabetic ketoacidosis, better at this time. Continue to monitor Metabolic encephalopathy, better at this time, continue to monitor Hypertension, better at this time status post hypotension, continue to monitor Tobaccoism, educated on smoking cessation Acute renal failure, continue IV fluid and monitor Electrolyte imbalance secondary to metabolic acidosis and DKA. Better at this time. Continue to monitor Generalized weakness and loss of energy. Nausea and vomiting, reporting improvement. Continue to monitor Clinical Quality Measures DVT/VTE Risk/Contraindication: Risk Factor Score Per Nursin RFS Level Per Nursing on Admit: 4+=Very High LOREE HUERTA MD Jul 01, 2018 07:28
[2018-07-01] MEDS ORDERED: ENOXAPARIN 40 MG/0.4 ML (LOVENOX) SYR SQ SCH (07:30)
[2018-07-01] MEDS ORDERED: metFORMIN 500 MG (GLUCOPHAGE) TAB PO SCH (08:00)
[2018-07-01] MEDS: DILTIAZEM 120 MG (CARDIZEM CD) CAP PO SCH ×2 (08:17→08:58)
[2018-07-01] MEDS: meTOprolol TARTRATE 25 MG (LOPRESSOR) TABLET PO SCH ×2 (08:17→08:58)
[2018-07-01] MEDS: PANTOPRAZOLE 20 MG TABLET (PROTONIX) PO SCH ×2 (08:17→08:57)
[2018-07-01] MEDS ORDERED: CATHETER FLUSH 10 ML SYR IV PRN (08:30)
[2018-07-01 08:35] LABS: BUN/CREATININE RATIO 14; CALCIUM 8.2 MG/DL (8.5-10.1); CARBON DIOXIDE 19 MMOL/L (21-32); CHLORIDE 114 MMOL/L (98-107); CREATININE SERUM 1.09 MG/DL (0.60-1.30); GFR ESTIMATED > 60; GLUCOSE 185 MG/DL (70-105); PHOSPHORUS 2.7 MG/DL (2.3-4.7); POTASSIUM 4.5 MMOL/L (3.6-5.0); SODIUM 140 MMOL/L (135-145)
[2018-07-01 08:43] LABS: ABG BASE EXCESS -5.8 MMOL/L (-2.5-2.5); ABG OXYGEN SATURATION 97 % (94-100); ABG PCO2 33 MMHG (35-45); ABG PH 7.37 (7.37-7.43); ABG PO2 82 MMHG (79-93); ABG TCO2 19.6 MMOL/L (21.0-31.0)
[2018-07-01 08:44] LABS: ALLENS TEST YES-POS
[2018-07-01 08:45] LABS: INSPIRED O2 RA; PATIENT TEMP 98.7; VENTILATOR NO
[2018-07-01 08:47] LABS: BASOPHILS % (AUTO) 0 % (0-10); EOSINOPHILS # (AUTO) 0.1 10^3/uL (0.0-0.3); EOSINOPHILS % (AUTO) 1 % (0-10); HEMATOCRIT 26 % (40-54); HEMOGLOBIN 8.5 G/DL (13.3-17.7); LYMPHOCYTES # (AUTO) 1.7 X 10^3 (1.0-4.0); LYMPHOCYTES % (AUTO) 20 % (12-44); MEAN CORPUSCULAR HEMOGLOBIN 29 PG (25-34); MEAN CORPUSCULAR HGB CONC 33 G/DL (32-36); MEAN CORPUSCULAR VOLUME 89 FL (80-99); MEAN PLATELET VOLUME 10.9 FL (7.4-10.4); MONOCYTES # (AUTO) 0.9 X 10^3 (0.0-1.0); MONOCYTES % (AUTO) 11 % (0-12); NEUTROPHILS # (AUTO) 5.9 X 10^3 (1.8-7.8); NEUTROPHILS % (AUTO) 68 % (42-75); PLATELET COUNT 319 10^3/uL (130-400); RED BLOOD COUNT 2.89 10^6/uL (4.35-5.85); RED CELL DISTRIBUTION WIDTH 13.5 % (10.0-14.5); WHITE BLOOD COUNT 8.7 10^3/uL (4.3-11.0)
[2018-07-01] MEDS: DULoxetine 30 MG (CYMBALTA) CAP PO SCH (08:58)
[2018-07-01] MEDS: FOLIC ACID 1 MG TAB PO SCH (08:58)
[2018-07-01] MEDS: PREGABALIN 100 MG (LYRICA) CAPSULE PO SCH (08:58)
[2018-07-01 08:59] LABS: ALANINE AMINOTRANSFERASE 11 U/L (0-55); ALBUMIN 2.7 GM/DL (3.2-4.5); ALKALINE PHOSPHATASE 110 U/L (40-136); BILIRUBIN,TOTAL 0.2 MG/DL (0.1-1.0); BUN/CREATININE RATIO 14; CALCIUM 8.1 MG/DL (8.5-10.1); CARBON DIOXIDE 19 MMOL/L (21-32); CHLORIDE 113 MMOL/L (98-107); CREATININE SERUM 1.07 MG/DL (0.60-1.30); GFR ESTIMATED > 60; GLUCOSE 186 MG/DL (70-105); POTASSIUM 4.4 MMOL/L (3.6-5.0); SODIUM 137 MMOL/L (135-145); TOTAL PROTEIN 5.1 GM/DL (6.4-8.2)
[2018-07-01 09:00] LABS: PROTHROMBIN TIME PATIENT 12.8 SEC (12.2-14.7)
[2018-07-01] MEDS: CYANOCOBALAMIN 1,000 MCG (VITAMIN B-12) TABLET PO SCH (09:02)
[2018-07-01] MEDS: NOREPINEPHRINE 4 MG in NS (IVPB) 250 ML IV SCH (09:02)
[2018-07-01] MEDS: inSUlin REGULAR TPN/DRIP 250 UNITS/NS 250 ML IV SCH ×2 (09:03)
--- NOTE | 2018-07-01 09:06 | Progress Note-Hospitalist ---
THOMAS BUSH MEDICAL STUDENT 07/01/18 0906: Subjective HPI/CC On Admission Date Seen by Provider: Jul 01, 2018 Time Seen by Provider: 08:10 The patient is a 57-year-old white male who was admitted through the emergency room last night. He presented with a complaint of vomiting for 2 or more days prior to admission and a cough of 4 days he reported shortness of breath. He also reported that his blood sugars have been running high despite his taking the prescribed amounts of NovoLog and Levemir. He was also found to have atrial fibrillation with no prior history of A. fib. He is relatively vague about details today. His states that he has been diabetic since 1994. Subjective/Events-last exam Pt had no acute events overnight. He is eating well. He has had some loose stools since admission. Urinating through a suprapubic catheter. He has mild pain around his suprapubic catheter, but does not seem to bother him much. He is not yet walking around due to his catheter. Focused Exam Lactate Level 06/28/18 23:28: Lactic Acid Level 1.68 07/01/18 09:02: Lactic Acid Level 1.38 Time of Focused Exam: 23:20 Respiratory: Chest Non Tender, No Accessory Muscle Use, No Respiratory Distress , Crackles (Crackles at left lung base) Cardiovascular: Regular Rate, Rhythm, No Edema Skin: normal color, warm/dry Lactic Acid Level Laboratory Tests Test 07/01/18 09:02 Lactic Acid Level 1.38 MMOL/L (0.50-2.00) Objective Exam Vital Signs Vital Signs Date Time Temp Pulse Resp B/P (MAP) Pulse Ox O2 Delivery O2 Flow Rate FiO2 07/01/18 08:35 97.2 07/01/18 07:38 97 Room Air 07/01/18 07:00 59 07/01/18 06:00 27 120/56 (77) 06/29/18 17:00 2.00 Capillary Refill : Less Than 3 Seconds Neurologic/Psychiatric: Abnormal circulator II-XII (Gaze deviation to the right, unable to track past midline. Left sided facial droop. Tongue is deviated. ), Aphasia, Depressed Affect, Disoriented, Motor Weakness (Left sided flaccid paralyis of upper and lower extremity,), Sensory Deficit (Decreased sensation to light touch on left side.), Other (MS: Arousable to speech, lethargic) Results/Procedures Lab Laboratory Tests 06/30/18 11:32 06/30/18 16:10 06/30/18 20:15 07/01/18 00:15 07/01/18 04:00 07/01/18 08:05 Patient resulted labs reviewed. Assessment/Plan Assessment and Plan Assess & Plan/Chief Complaint 57 year old male with history of DM, HTN, renal failure admitted for DKA, Afib with RVR, LATISHA, and urosepsis. Cardiovascular -Diltiazem PO for afib -Not currently anticoagulated given hemoccult positive -Stress test today at 0830 for chest pain -Dr. Jean following Neuro: Likely due to Right MCA embolism from afib -Not a candidate for TPA -Ship to UTI: -On Rocephin with suprapubic catheter -Urology consulted to manage phimosis, urethral stricture Endo: -Gap is close, Bicarb 18 -Attempt to transition from insulin drip today. Dipso: To Clinical Quality Measures DVT/VTE Risk/Contraindication: Risk Factor Score Per Nursin RFS Level Per Nursing on Admit: 4+=Very High SUMMER ALCAZAR DO 07/01/18 1125: Subjective Subjective/Events-last exam RN called me at 0830 with acute change in his status and Dr John arrived at the bedside and ordered CT scan and acute CVA was dx w/left sided neglect and stroke center was notified and they did not recommend tPA so he was flown to [facility] emergently. Review of Systems Neurological: Weakness (left sided acutely), Confusion Objective Exam General Appearance: No Apparent Distress, WD/WN, Chronically ill Respiratory: Chest Non Tender, Lungs Clear, Normal Breath Sounds, No Accessory Muscle Use, No Respiratory Distress Cardiovascular: Regular Rate, Rhythm, No Edema, No Gallop, No JVD, No Murmur, Normal Peripheral Pulses Neurologic/Psychiatric: Abnormal circulator II-XII (Gaze deviation to the right, unable to track past midline. Left sided facial droop. Tongue is deviated. ), Aphasia, Depressed Affect, Disoriented, Motor Weakness (Left sided flaccid paralyis of upper and lower extremity,), Sensory Deficit (Decreased sensation to light touch on left side.), Other (MS: Arousable to speech, lethargic) Assessment/Plan Assessment and Plan Assess & Plan/Chief Complaint Acute CVA so medflight to Diagnosis/Problems Diagnosis/Problems (1) Acute CVA (cerebrovascular accident) Status: Acute Assessment & Plan: Flown to [facility] emergently (2) Acute renal failure syndrome Status: Acute (3) Urinary tract infection Status: Acute Qualifiers: Urinary tract infection type: site unspecified Hematuria presence: without hematuria Qualified Codes: N39.0 - Urinary tract infection, site not specified (4) Uncontrolled diabetes mellitus Status: Chronic Qualifiers: Diabetes mellitus type: type 2 Glycemic state: with hyperglycemia Qualified Codes: E11.65 - Type 2 diabetes mellitus with hyperglycemia THOMAS BUSH MEDICAL STUDENT Jul 01, 2018 09:06 SUMMER ALCAZAR DO Jul 01, 2018 11:25
--- NOTE | 2018-07-01 09:14 | Diagnostic Imaging Report ---
PROCEDURE: CT head without contrast. TECHNIQUE: Multiple contiguous axial images were obtained through the brain without the use of intravenous contrast. INDICATION: New onset lethargy and not responding. No prior studies are available for comparison. Ventricles and sulci are within normal limits. There is mild periventricular hypodensity noted suggestive of chronic microvascular ischemia. No sulcal effacement is identified. There is no midline shift. No acute intra-axial or extra-axial hemorrhage is seen. The cisterns are patent. The visualized paranasal sinuses are clear. IMPRESSION: No acute intracranial process is detected. Dr. John was called with these results prior to this dictation. Dictated by: Dictated on workstation # [id number]
[2018-07-01 09:17] LABS: BASOPHILS % (MANUAL) 0 %; EOSINOPHILS % (MANUAL) 1 %; LYMPHOCYTES % (MANUAL) 28 %; MONOCYTES % (MANUAL) 3 %; NEUTROPHILS % (MANUAL) 68 %; RBC MORPH NORMAL
[2018-07-01] MEDS ORDERED: D5 1/2 NS W/KCL 10 MEQ/L 1,000 ML IV ONE ×2 (09:26→09:27)
[2018-07-01] MEDS ORDERED: D5 1/2 NS 1000 ML IV SOLUTION 1,000 ML IV SCH (09:30)
--- NOTE | 2018-07-01 11:32 | Discharge Summary-Hospitalist ---
THOMAS BUSH MEDICAL STUDENT 07/01/18 1132: Diagnosis/Chief Complaint Date of Admission Jun 29, 2018 at 02:02 Date of Discharge Jul 01, 2018 at 10:15 Discharge Diagnosis (1) Acute CVA (cerebrovascular accident) Status: Acute Assessment & Plan: Flown to [facility] emergently (2) Acute renal failure syndrome Status: Acute (3) Urinary tract infection Status: Acute (4) Uncontrolled diabetes mellitus Status: Chronic Discharge Summary Discharge Physical Exam Allergies: Coded Allergies: No Known Drug Allergies (Unverified , 06/29/18) Vitals & I&Os Vital Signs Date Time Temp Pulse Resp B/P (MAP) Pulse Ox O2 Delivery O2 Flow Rate FiO2 07/01/18 08:35 97.2 07/01/18 07:38 97 Room Air 07/01/18 07:00 59 07/01/18 06:00 27 120/56 (77) 06/29/18 17:00 2.00 Neurologic/Psychiatric: Normal Mood/Affect Hospital Course 57 yo M with a history of type II diabetes, HTN, and renal failure presented to the ED on 06/28 for cough, vomiting, and elevated blood glucose found to be in DKA, Afib w/RVR, urosepsis, and LATISHA. Cardiology was consulted, and he was started on a cardizem drip with resulting improvement in heart rate. He was also started on heparin for stroke prophylaxis, which was subsequently discontinued due to positive hemoccult. Regarding DKA, he was given IVF, a bolus of insulin followed by insulin drip for an initial glucose of 659 and a AG of 28 that normalized on 06/29. He was transitioned to SQ insulin on 06/29, but restarted on insulin drip on 06/30 due to low bicarbonate. Regarding UTI with LATISHA, he was started on Rocephin and cultures grew no pathogens. Bladder scan showed retention and suprapubic catheter was placed after unsuccessful attempts at Dawson placement. Urology was consulted and identified phimosis with a meatal stricture. Creatinine improved with fluids and catheter placement. On 07/01, nursing staff noted that patient had left sided facial, upper and lower weakness and decreased responsiveness. CT head was obtained and was negative. TPA not administered given recent anticoagulation, so patient was transferred to for potential thrombectomy. Labs (last 24 hrs) Laboratory Tests 06/30/18 21:42: Glucometer 195H 06/30/18 22:46: Glucometer 190H 06/30/18 23:52: Glucometer 174H 07/01/18 00:15: Sodium Level 137, Potassium Level 4.5, Chloride Level 113H, Carbon Dioxide Level 17L, Anion Gap 7, Blood Urea Nitrogen 19H, Creatinine 1.22, Estimat Glomerular Filtration Rate > 60, BUN/Creatinine Ratio 16, Glucose Level 162H, Calcium Level 8.2L, Phosphorus Level 3.1, Magnesium Level 2.3 07/01/18 01:08: Glucometer 201H 07/01/18 02:12: Glucometer 138H 07/01/18 02:49: Glucometer 129H 07/01/18 03:52: Glucometer 131H 07/01/18 04:00: White Blood Count 9.2, Red Blood Count 2.86L, Hemoglobin 8.5L, Hematocrit 25L, Mean Corpuscular Volume 89, Mean Corpuscular Hemoglobin 30, Mean Corpuscular Hemoglobin Concent 34, Red Cell Distribution Width 13.4, Platelet Count 347, Mean Platelet Volume 10.9H, Neutrophils (%) (Auto) 70, Lymphocytes (%) (Auto) 20 , Monocytes (%) (Auto) 10, Eosinophils (%) (Auto) 1, Basophils (%) (Auto) 0, Neutrophils # (Auto) 6.4, Lymphocytes # (Auto) 1.8, Monocytes # (Auto) 0.9, Eosinophils # (Auto) 0.1, Basophils # (Auto) 0.0, Activated Partial Thromboplast Time 28, Sodium Level 140, Potassium Level 4.3, Chloride Level 114H , Carbon Dioxide Level 18L, Anion Gap 8, Blood Urea Nitrogen 17, Creatinine 1.12 , Estimat Glomerular Filtration Rate > 60, BUN/Creatinine Ratio 15, Glucose Level 124H, Calcium Level 8.4L, Corrected Calcium 9.2, Phosphorus Level 3.0, Magnesium Level 2.3, Total Bilirubin 0.2, Aspartate Amino Transf (AST/SGOT) 15, Alanine Aminotransferase (ALT/SGPT) 12, Alkaline Phosphatase 123, Total Protein 5.7L, Albumin 3.0L 07/01/18 04:52: Glucometer 127H 07/01/18 05:31: Glucometer 127H 07/01/18 06:35: Glucometer 213H 07/01/18 07:34: Glucometer 179H 07/01/18 08:05: White Blood Count 8.7, Red Blood Count 2.89L, Hemoglobin 8.5L, Hematocrit 26L, Mean Corpuscular Volume 89, Mean Corpuscular Hemoglobin 29, Mean Corpuscular Hemoglobin Concent 33, Red Cell Distribution Width 13.5, Platelet Count 319, Mean Platelet Volume 10.9H, Neutrophils (%) (Auto) 68, Lymphocytes (%) (Auto) 20 , Monocytes (%) (Auto) 11, Eosinophils (%) (Auto) 1, Basophils (%) (Auto) 0, Neutrophils # (Auto) 5.9, Lymphocytes # (Auto) 1.7, Monocytes # (Auto) 0.9, Eosinophils # (Auto) 0.1, Basophils # (Auto) 0.0, Neutrophils % (Manual) 68, Lymphocytes % (Manual) 28, Monocytes % (Manual) 3, Eosinophils % (Manual) 1, Basophils % (Manual) 0, Blood Morphology Comment NORMAL, Prothrombin Time 12.8, INR Comment 1.0, Activated Partial Thromboplast Time 27, Sodium Level 137, Potassium Level 4.4, Chloride Level 113H, Carbon Dioxide Level 19L, Anion Gap 5 , Blood Urea Nitrogen 15, Creatinine 1.07, Estimat Glomerular Filtration Rate > 60, BUN/Creatinine Ratio 14, Glucose Level 186H, Calcium Level 8.1L, Corrected Calcium 9.1, Phosphorus Level 2.7, Magnesium Level 2.0, Total Bilirubin 0.2, Aspartate Amino Transf (AST/SGOT) 13, Alanine Aminotransferase (ALT/SGPT) 11, Alkaline Phosphatase 110, Troponin I < 0.30, Total Protein 5.1L, Albumin 2.7L 07/01/18 08:25: Glucometer 200H 07/01/18 08:33: Glucometer 183H 07/01/18 08:36: Blood Gas Puncture Site L BRACH, Blood Gas Patient Temperature 98.7, Arterial Blood pH 7.37, Arterial Blood Partial Pressure CO2 33L, Arterial Blood Partial Pressure O2 82, Arterial Blood HCO3 19L, Arterial Blood Total CO2 19.6L, Arterial Blood Oxygen Saturation 97, Arterial Blood Base Excess -5.8L, Leroy Test YES-POS, Blood Gas Ventilator Setting NO, Blood Gas Inspired Oxygen RA 07/01/18 09:02: Lactic Acid Level 1.38 07/01/18 09:25: Glucometer 172H Microbiology 06/28/18 Blood Culture - Preliminary, Resulted Staph, Coag Neg (4 H [employer]OP[employer]IST) See Report 06/29/18 MRSA Screen - Final, Complete MRSA not isolated 06/30/18 Urine Culture - Final, Complete NO GROWTH Patient resulted labs reviewed. Pending Labs Discharge Home Medications: Active Scripts Active Reported Imodium A-D (Loperamide HCl) 2 Mg Capsule 2 Mg PO UD PRN Novolog Flexpen (Insulin Aspart) 300 Units/3 Ml Solution 25 Units SQ AC Metformin HCl 500 Mg Tablet 500 Mg PO BID Ferrous Sulfate 324 Mg Tablet.dr 324 Mg PO TID Vitamin B-12 (Cyanocobalamin (Vitamin B-12)) 1,000 Mcg Tablet 2,000 Mcg PO DAILY Metoprolol Tartrate 50 Mg Tablet 25 Mg PO BID TAKES 1/2 (50MG) TABLETS Urea 85 Gm Cream..g. TP BID PRN Mirtazapine 15 Mg Tablet 15 Mg PO HS Levemir (Insulin Determir) 1,000 Units/10 Ml Soln 25 Units SQ HS Atorvastatin Calcium 80 Mg Tablet 40 Mg PO HS TAKES 1/2 (80MG) TABLET Folic Acid 1 Mg Tablet 1 Mg PO DAILY Vitamin D3 (Cholecalciferol (Vitamin D3)) 1,000 Unit Capsule 1,000 Unit PO DAILY Protonix (Pantoprazole Sodium) 20 Mg Tablet.dr 20 Mg PO BID Duloxetine HCl 30 Mg Capsule.dr 90 Mg PO DAILY TAKES 3 (30MG) CAPSULES Lyrica (Pregabalin) 100 Mg Capsule 100 Mg PO TID Bupropion HCl 75 Mg Tablet 75 Mg PO BID Instructions to patient/family Please see electronic discharge instructions given to patient. Clinical Quality Measures DVT/VTE Risk/Contraindication: Risk Factor Score Per Nursin RFS Level Per Nursing on Admit: 4+=Very High SUMMER ALCAZAR DO 07/03/18 1108: Diagnosis/Chief Complaint Discharge Diagnosis (1) Urinary tract infection Status: Acute (2) Acute renal failure syndrome Status: Acute (3) Uncontrolled diabetes mellitus Status: Chronic (4) Acute CVA (cerebrovascular accident) Status: Acute Assessment & Plan: Flown to [facility] emergently (5) DKA (diabetic ketoacidoses) Status: Acute (6) Hematuria Status: Acute (7) Electrolyte imbalance Status: Acute Discharge Summary Discharge Physical Exam Allergies: Coded Allergies: No Known Drug Allergies (Unverified , 06/29/18) General Appearance: No Apparent Distress, WD/WN, Chronically ill Respiratory: Chest Non Tender, Lungs Clear Cardiovascular: Irregularly Irregular Neurologic/Psychiatric: Alert Hospital Course Please see summary above. Patient was transferred to [facility] in a stable status but overall prognosis remains poor given multitude of medical issues including DM OOC with HGA1C 16. Discussion & Recommendations Discharge Planning: <30 minutes discharge planning Problem Qualifiers (1) Urinary tract infection: Urinary tract infection type: site unspecified Hematuria presence: without hematuria Qualified Codes: N39.0 - Urinary tract infection, site not specified (2) Uncontrolled diabetes mellitus: Diabetes mellitus type: type 2 Glycemic state: with hyperglycemia Qualified Codes: E11.65 - Type 2 diabetes mellitus with hyperglycemia (3) DKA (diabetic ketoacidoses): Diabetes mellitus type: type 2 Diabetes mellitus complication detail: without coma Qualified Codes: E11.10 - Type 2 diabetes mellitus with ketoacidosis without coma (4) Hematuria: Hematuria type: unspecified type Qualified Codes: R31.9 - Hematuria, unspecified THOMAS BUSH MEDICAL STUDENT Jul 01, 2018 11:32 SUMMER ALCAZAR DO Jul 03, 2018 11:08
--- NOTE | 2018-07-01 14:56 | CONSULTATION REPORT ---
DATE OF SERVICE: 06/29/2018 ATTENDING PHYSICIAN: Dr. John. SUMMARY: A 57-year-old white man with arrhythmias, admitted in the ICU, started on heparin with urinary retention and bladder scan showing over 500 mL of urine. Nursing staff unable to insert the catheter; has history of that before. I attempted to insert the catheter. He has severe phimosis and also severe meatal stenosis and was very uncomfortable with the procedure, so I discontinued that. IMPRESSION: Urinary retention with severe phimosis, meatal stenosis and possible other strictures. RECOMMENDATION: Percutaneous suprapubic tube insertion. Job ID: [id number] DocumentID: [id number] Dictated Date: 06/30/2018 08:40:47 [employer] Driver Date: 06/30/2018 09:11:50 Dictated By: BARBARA LEMUS MD
== END 2018-07-01 10:15 | disposition short-term general hospital (02) | DRG 853 ==
LOC: EDUNIT# 20:32 → ER 20:34 → ICU 06-29 02:02
PROVIDERS: ADMIT Family Medicine; ATTEND Family Medicine
PROC: 0T9C00Z Drainage of Bladder Neck with Drainage Device, Open Approach (ICD-10-PCS; principal; 2018-06-29 11:42)
PROC: 0DB94ZX Excision of Duodenum, Percutaneous Endoscopic Approach, Diagnostic (ICD-10-PCS; 2018-06-29 11:42)
DX: A41.9 Sepsis, unspecified organism (principal); N39.0 Urinary tract infection, site not specified; E11.10 Type 2 diabetes mellitus with ketoacidosis without coma; N17.9 Acute kidney failure, unspecified; I48.0 Paroxysmal atrial fibrillation; K92.0 Hematemesis; I63.9 Cerebral infarction, unspecified; R47.01 Aphasia; G81.94 Hemiplegia, unspecified affecting left nondominant side; N47.1 Phimosis; N35.9 Urethral stricture, unspecified; R33.9 Retention of urine, unspecified; E87.6 Hypokalemia; I12.9 Hypertensive chronic kidney disease with stage 1 through stage 4 chronic kidney disease, or unspecified chronic kidney disease; N18.9 Chronic kidney disease, unspecified; D64.9 Anemia, unspecified; F41.9 Anxiety disorder, unspecified; F32.9 Major depressive disorder, single episode, unspecified; E78.00 Pure hypercholesterolemia, unspecified; E11.40 Type 2 diabetes mellitus with diabetic neuropathy, unspecified; R34 Anuria and oliguria; R53.1 Weakness; K31.7 Polyp of stomach and duodenum; Z79.4 Long term (current) use of insulin; Z87.891 Personal history of nicotine dependence
CPT/HCPCS: 36415; 70450; 71045; 71046; 76770; 80048; 80053; 81000; 82274; 82805; 82962; 83036; 83605; 83735; 83880; 84100; 84484; 85007; 85025; 85027; 85379; 85610; 85730; 86141; 87040; 87081; 87088; 88305; 93005; 93041; 93306; 96361; 96365; 96375

== ENCOUNTER 2018-07-11 01:45 | Emergency (ER) | payer MEDICARE ==
[~2018-07-11] VITALS: Ht 167.6 cm; Wt 66.8 kg
[~2018-07-11 01:45] MED LIST changes: +CYAN10006 PO; +FERR324T4 PO; +LOPE-145 PO; +METF-397 PO; +METO50TA15 PO; +MIRT15TA6 PO
--- OUTSIDE RECORDS SUMMARY | 2018-07-11 01:52 | XMS REPORT | Clinical Summary ---
Author Author [facility] Organization [facility] Address Unknown Phone Unavailable Care Team Providers Care Cytopathologist Name Role Phone Damien Caceres MD Unavailable Melo Adame MD Unavailable Unavailable Lulu Ozuna NP PCP Hilary Davenport RN Unavailable Unavailable Source Comments Some departments are not documenting in the electronic medical record. If you do not see the information that you expected, contact Release of Information in the Health Information Management department at [phone] for further assistance in locating additional records.[facility] Allergies No Known Allergies Current Medications Prescription Sig. Disp. Refills Start End Date Status Date atorvastatin (LIPITOR) 40 Take one tablet by mouth 07/09/20 Active mg tablet at bedtime daily. 18 lisinopril (PRINIVIL, Take one tablet by mouth 07/09/20 Active ZESTRIL) 40 mg tablet daily. 18 aspirin 81 mg chewable Chew one tablet by mouth 07/09/20 Active tablet daily. Take with food. 18 nortriptyline (PAMELOR) Take one capsule by mouth 07/09/20 Active 10 mg capsule at bedtime daily. 18 QUEtiapine (SEROQUEL) 25 Take one tablet by mouth 07/09/20 Active mg tablet twice daily. 18 metoprolol tartrate Take one tablet by mouth 180 tablet 3 07/09/20 Active (LOPRESSOR) 25 mg tablet twice daily. 18 insulin glargine (LANTUS Inject twenty Units under 45 mL 3 07/10/20 Active SOLOSTAR, BASAGLAR) 100 the skin daily. 18 unit/mL (3 mL) injection PEN insulin aspart U-100 Inject four Units under 45 mL 3 07/09/20 Active (NOVOLOG FLEXPEN) 100 the skin three times 18 unit/mL injection PEN daily with meals. melatonin 5 mg tab Take one tablet by mouth 07/09/20 Active at bedtime daily. 18 amLODIPine (NORVASC) 5 mg Take two tablets by mouth 07/09/20 Active tablet daily. 18 gabapentin (NEURONTIN) Take 600 mg by mouth 07/09/20 Discontin 600 mg tablet three times daily. 18 ued INSULIN ASPART (NOVOLOG Inject 5 Units into 07/09/20 Discontin SC) area(s) as directed three 18 ued times daily before meals. glipiZIDE (GLUCOTROL) 10 Take 10 mg by mouth. Take 07/09/20 Discontin mg tablet 1 and 1/2 tablets (15 mg) 18 ued Daily. FLUoxetine(+) (PROZAC) 40 Take 40 mg by mouth twice 07/09/20 Discontin mg capsule daily. 18 ued traZODone (DESYREL) 50 mg Take 50 mg by mouth at 07/09/20 Discontin tablet bedtime daily. 18 ued lisinopril (PRINIVIL; Take 10 mg by mouth twice 07/09/20 Discontin ZESTRIL) 10 mg tablet daily. 18 ued amLODIPine (NORVASC) 5 mg Take 2.5 mg by mouth 07/09/20 Discontin tablet twice daily. 18 ued ferrous sulfate 325 mg Take 325 mg by mouth 07/09/20 Discontin (65 mg iron) tablet twice daily. 18 ued ERGOCALCIFEROL (VITAMIN Take 2,000 Units by mouth 07/09/20 Discontin D2) (VITAMIN D PO) daily. 18 ued HYDROcodone/acetaminophen Take 1 Tab by mouth every 07/09/20 Discontin (NORCO; VICODIN) 5-325 mg 6 hours as needed for 18 ued tablet Pain metoprolol XL (TOPROL XL) Take 25 mg by mouth 07/09/20 Discontin 25 mg tablet daily. 18 ued buPROPion (WELLBUTRIN) 75 Take 75 mg by mouth twice 07/09/20 Discontin mg tablet daily. 18 ued insulin detemir(+) Inject 5 Units into 10 mL 12 01/17/20 07/09/20 Discontin (LEVEMIR) 100 unit/mL area(s) as directed at 16 18 ued soln bedtime daily. diltiazem (CARDIZEM) 30 Take one tablet by mouth 07/09/20 07/09/20 Discontin mg tablet four times daily. 18 18 ued amLODIPine (NORVASC) 5 mg Take one tablet by mouth 07/09/20 07/09/20 Discontin tablet twice daily. 18 18 ued Active Problems Problem Noted Date Anemia 07/03/2018 Agitation 07/03/2018 Stroke ([facility]) 07/01/2018 Overview: R M1 occlusion, successful thrombectomy on 07/01/18 (TICI 3) HTN (hypertension) 01/15/2016 Urinary retention with incomplete bladder emptying 01/15/2016 Diabetes ([facility]) 01/15/2016 Proliferative diabetic retinopathy(362.02) 01/14/2013 Last Assessment [...] Problems Problem Noted Date Resolved Date Sepsis ([facility]) 01/15/2016 01/17/2016 Severe sepsis ([facility]) 01/15/2016 01/17/2016 LATISHA (acute kidney injury) ([facility]) 01/15/2016 01/17/2016 High anion gap metabolic acidosis 01/15/2016 01/17/2016 Encounters Date Type Specialty Care Team Description 07/08/2018 Anesthesia Hannah Arias, [employer]INTENANCE Event 07/08/2018 Procedure Pass 07/08/2018 Surgery Clara Carolina MD ESOPHAGOGASTRODUODENOSCOP Y 07/01/2018 Hospital Diego Gutierrez MD Stroke ([facility]) - Encounter Shanna Ward MD 07/09/2018 Veronica Doyle MD Slavin, Sabreena J, MD 07/01/2018 Procedure Pass 07/01/2018 Procedure Pass 07/01/2018 Procedure Pass 07/01/2018 Procedure Pass 07/01/2018 Procedure Pass from Last 3 Months Family History Medical History Relation Name Comments Coronary Artery Disease Father Hypertension Father Diabetes Maternal Aunt Diabetes Maternal Uncle Coronary Artery Disease Mother Hypertension Mother Diabetes Paternal Aunt Autoimmune Disease Neg Hx Blindness Neg Hx Cancer Neg Hx Cataract Neg Hx Glaucoma Neg Hx Macular Degen Neg Hx Neurologic Disorder Neg Hx Retinal Detachment Neg Hx Strabismus Neg Hx Stroke Neg Hx Thyroid Disease Neg Hx Relation Name Status Comments Father Maternal Aunt Maternal Uncle Mother Paternal Aunt Social History Tobacco Use Types Packs/Day Years Used Date Former Smoker Cigars 2 20 Quit: 10/20/2011 Smokeless Tobacco: Never Used Alcohol Use Drinks/Week oz/Week Comments No Sex Assigned at Date Recorded Not on file Last Filed Vital Signs Vital Sign Reading Time Taken Blood Pressure 128/51 07/09/2018 1:03 PM CDT Pulse 70 07/09/2018 1:03 PM CDT Temperature 36.7 C (98.1 F) 07/09/2018 1:03 PM CDT Respiratory Rate - - Oxygen Saturation 97% 07/09/2018 1:03 PM CDT Inhaled Oxygen - - Concentration Weight 71.6 kg (157 lb 13.6 oz) 07/01/2018 2:45 PM CDT Height 167.6 cm (5' 6") 07/01/2018 2:45 PM CDT Body Mass Index 25.48 07/01/2018 2:45 PM CDT Plan of Treatment Health Maintenance Due Date Last Done Comments HEPATITIS C SCREENING 1958 PHYSICAL (COMPREHENSIVE) 1965 EXAM PERTUSSIS VACCINE 1969 HIV SCREENING 1973 TETANUS VACCINE 1975 SHINGLES RECOMBINANT 2008 VACCINE (1 of 2) INFLUENZA VACCINE 07/20/2018 COLORECTAL CANCER 07/08/2028 07/08/2018 SCREENING Implants Implanted Type Area Fire Engineer Device Expiration Model / Identifier Date Serial / Lot Device Closure 70cm 8fr .038in Right: TERUMO:TERUMO 02/16/2019 [id number] / Angio-Seal Vip [employer]-Plus - Sn/A Femoral MED N/A / Implanted: Qty: 1 on 07/01/2018 by Artery [id number] Lulu Perry MD Procedures Procedure Name Priority Date/Time Associated Diagnosis Comments POC GLUCOSE 07/09/2018 Results for this 3:42 PM CDT procedure are in the results section. POC GLUCOSE 07/09/2018 Results for this 3:34 PM CDT procedure are in the results section. POC GLUCOSE 07/09/2018 Results for this 3:18 PM CDT procedure are in the results section. POC GLUCOSE 07/09/2018 Results for this 1:49 PM CDT procedure are in the results section. POC GLUCOSE 07/09/2018 Results for this 11:40 AM CDT procedure are in the results section. POC GLUCOSE 07/09/2018 Results for this 8:35 AM CDT procedure are in the results section. COMPREHENSIVE METABOLIC Routine 07/09/2018 Results for this PANEL 5:47 AM CDT procedure are in the results section. CBC AND DIFF Routine 07/09/2018 Results for this 5:47 AM CDT procedure are in the results section. POC GLUCOSE 07/09/2018 Results for this 3:09 AM CDT procedure are in the results section. POC GLUCOSE 07/09/2018 Results for this 1:10 AM CDT procedure are in the results section. CULTURE-BLOOD Routine 07/08/2018 W/SENSITIVITY 10:25 PM CDT POC GLUCOSE 07/08/2018 Results for this 9:52 PM CDT procedure are in the results section. CULTURE-BLOOD Routine 07/08/2018 W/SENSITIVITY 8:20 PM CDT CONSULT IV THERAPY TEAM Routine 07/08/2018 7:48 PM CDT POC GLUCOSE 07/08/2018 Results for this 5:56 PM CDT procedure are in the results section. URINALYSIS MICROSCOPIC Routine 07/08/2018 Results for this REFLEX TO CULTURE 4:09 PM CDT procedure are in the results section. URINALYSIS DIPSTICK Routine 07/08/2018 Results for this REFLEX TO CULTURE 4:09 PM CDT procedure are in the results section. CHEST SINGLE VIEW Routine 07/08/2018 Results for this 2:15 PM CDT procedure are in the results section. POC GLUCOSE 07/08/2018 Results for this 1:57 PM CDT procedure are in the results section. POC GLUCOSE 07/08/2018 Results for this 1:21 PM CDT procedure are in the results section. POC GLUCOSE 07/08/2018 Results for this 11:46 AM CDT procedure are in the results section. COLONOSCOPY EXCISION 07/08/2018 Acute blood loss anemia LESION 11:45 AM CDT ESOPHAGOGASTRODUODENOSCOP 07/08/2018 Acute blood loss anemia Y BIOPSY 11:45 AM CDT COLONOSCOPY 07/08/2018 Acute blood loss anemia 11:45 AM CDT ESOPHAGOGASTRODUODENOSCOP 07/08/2018 Acute blood loss anemia Y 11:45 AM CDT POC GLUCOSE 07/08/2018 Results for this 11:22 AM CDT procedure are in the results section. EGD REPORT 07/08/2018 Results for this 10:48 AM CDT procedure are in the results section. COLONOSCOPY 07/08/2018 Results for this 10:47 AM CDT procedure are in the results section. POC GLUCOSE 07/08/2018 Results for this 7:33 AM CDT procedure are in the results section. PROCALCITONIN Add on 07/08/2018 Results for this 5:53 AM CDT procedure are in the results section. COMPREHENSIVE METABOLIC Routine 07/08/2018 Results for this PANEL 5:53 AM CDT procedure are in the results section. CBC AND DIFF Routine 07/08/2018 Results for this 5:53 AM CDT procedure are in the results section. POC GLUCOSE 07/07/2018 Results for this 9:26 PM CDT procedure are in the results section. POC GLUCOSE 07/07/2018 Results for this 5:54 PM CDT procedure are in the results section. POC GLUCOSE 07/07/2018 Results for this 11:30 AM CDT procedure are in the results section. CBC AND DIFF Routine 07/07/2018 Results for this 8:00 AM CDT procedure are in the results section. POC GLUCOSE 07/07/2018 Results for this 7:49 AM CDT procedure are in the results section. COMPREHENSIVE METABOLIC Add on 07/07/2018 Results for this PANEL 5:45 AM CDT procedure are in the results section. HEMOGLOBIN Routine 07/07/2018 Results for this 5:45 AM CDT procedure are in the results section. HEMOGLOBIN Routine 07/06/2018 Results for this 10:45 PM CDT procedure are in the results section. OCCULT BLOOD NON COLON Routine 07/06/2018 Results for this CANCER SCREEN 10:45 PM CDT procedure are in the results section. POC GLUCOSE 07/06/2018 Results for this 9:04 PM CDT procedure are in the results section. POC GLUCOSE 07/06/2018 Results for this 5:11 PM CDT procedure are in the results section. POC GLUCOSE 07/06/2018 Results for this 2:36 PM CDT procedure are in the results section. HEMOGLOBIN Routine 07/06/2018 Results for this 1:31 PM CDT procedure are in the results section. POC GLUCOSE 07/06/2018 Results for this 11:49 AM CDT procedure are in the results section. POC GLUCOSE 07/06/2018 Results for this 7:29 AM CDT procedure are in the results section. HEMOGLOBIN Routine 07/06/2018 Results for this 4:27 AM CDT procedure are in the results section. CBC Routine 07/06/2018 Results for this 4:27 AM CDT procedure are in the results section. BASIC METABOLIC PANEL Routine 07/06/2018 Results for this 4:27 AM CDT procedure are in the results section. POC GLUCOSE 07/06/2018 Results for this 2:35 AM CDT procedure are in the results section. POC GLUCOSE 07/05/2018 Results for this 10:09 PM CDT procedure are in the results section. HEMOGLOBIN Routine 07/05/2018 Results for this 9:40 PM CDT procedure are in the results section. POC GLUCOSE 07/05/2018 Results for this 9:37 PM CDT procedure are in the results section. POC GLUCOSE 07/05/2018 Results for this 8:15 PM CDT procedure are in the results section. URINALYSIS MICROSCOPIC Routine 07/05/2018 Results for this REFLEX TO CULTURE 6:45 PM CDT procedure are in the results section. URINALYSIS DIPSTICK Routine 07/05/2018 Results for this REFLEX TO CULTURE 6:45 PM CDT procedure are in the results section. CULTURE-URINE 07/05/2018 Results for this W/SENSITIVITY 6:45 PM CDT procedure are in the results section. POC GLUCOSE 07/05/2018 Results for this 4:37 PM CDT procedure are in the results section. POC GLUCOSE 07/05/2018 Results for this 2:02 PM CDT procedure are in the results section. HEMOGLOBIN Routine 07/05/2018 Results for this 2:00 PM CDT procedure are in the results section. POC GLUCOSE 07/05/2018 Results for this 11:32 AM CDT procedure are in the results section. ABDOMEN AP ONLY Routine 07/05/2018 Results for this 9:20 AM CDT procedure are in the results section. POC GLUCOSE 07/05/2018 Results for this 6:56 AM CDT procedure are in the results section. CBC Routine 07/05/2018 Results for this 5:50 AM CDT procedure are in the results section. POC GLUCOSE 07/05/2018 Results for this 5:29 AM CDT procedure are in the results section. BASIC METABOLIC PANEL Routine 07/05/2018 Results for this 5:25 AM CDT procedure are in the results section. POC GLUCOSE 07/05/2018 Results for this 2:37 AM CDT procedure are in the results section. POC GLUCOSE 07/05/2018 Results for this 1:31 AM CDT procedure are in the results section. POC GLUCOSE 07/05/2018 Results for this 12:41 AM CDT procedure are in the results section. POC GLUCOSE 07/04/2018 Results for this 11:19 PM CDT procedure are in the results section. HEMOGLOBIN Routine 07/04/2018 Results for this 9:30 PM CDT procedure are in the results section. POC GLUCOSE 07/04/2018 Results for this 9:15 PM CDT procedure are in the results section. POC GLUCOSE 07/04/2018 Results for this 7:50 PM CDT procedure are in the results section. POC GLUCOSE 07/04/2018 Results for this 7:23 PM CDT procedure are in the results section. POC GLUCOSE 07/04/2018 Results for this 5:10 PM CDT procedure are in the results section. IRON + BINDING CAPACITY + Routine 07/04/2018 Results for this %SAT+ FERRITIN 2:20 PM CDT procedure are in the results section. POC GLUCOSE 07/04/2018 Results for this 2:19 PM CDT procedure are in the results section. POC GLUCOSE 07/04/2018 Results for this 1:42 PM CDT procedure are in the results section. POC GLUCOSE 07/04/2018 Results for this 1:16 PM CDT procedure are in the results section. HEMOGLOBIN Routine 07/04/2018 Results for this 1:15 PM CDT procedure are in the results section. POC GLUCOSE 07/04/2018 Results for this 12:52 PM CDT procedure are in the results section. POC GLUCOSE 07/04/2018 Results for this 12:19 PM CDT procedure are in the results section. POC GLUCOSE 07/04/2018 Results for this 12:17 PM CDT procedure are in the results section. POC GLUCOSE 07/04/2018 Results for this 10:28 AM CDT procedure are in the results section. POC GLUCOSE 07/04/2018 Results for this 9:31 AM CDT procedure are in the results section. POC GLUCOSE 07/04/2018 Results for this 8:38 AM CDT procedure are in the results section. POC GLUCOSE 07/04/2018 Results for this 7:29 AM CDT procedure are in the results section. POC GLUCOSE 07/04/2018 Results for this 6:31 AM CDT procedure are in the results section. CBC Routine 07/04/2018 Results for this 5:47 AM CDT procedure are in the results section. BASIC METABOLIC PANEL Routine 07/04/2018 Results for this 5:47 AM CDT procedure are in the results section. POC GLUCOSE 07/04/2018 Results for this 5:36 AM CDT procedure are in the results section. POC GLUCOSE 07/04/2018 Results for this 4:36 AM CDT procedure are in the results section. POC GLUCOSE 07/04/2018 Results for this 3:24 AM CDT procedure are in the results section. POC GLUCOSE 07/04/2018 Results for this 2:14 AM CDT procedure are in the results section. TRANSFUSE RBC'S Routine 07/04/2018 NON-BLEEDING PT 1:30 AM CDT POC GLUCOSE 07/04/2018 Results for this 12:37 AM CDT procedure are in the results section. BLOOD TYPE CONFIRMATION - Routine 07/04/2018 Results for this ORDER ONLY IF REQUESTED 12:13 AM CDT procedure are in the BY LAB results section. TYPE & CROSSMATCH Routine 07/03/2018 Results for this 11:48 PM CDT procedure are in the results section. POC GLUCOSE 07/03/2018 Results for this 11:21 PM CDT procedure are in the results section. POC GLUCOSE 07/03/2018 Results for this 10:12 PM CDT procedure are in the results section. HEMOGLOBIN Routine 07/03/2018 Results for this 10:02 PM CDT procedure are in the results section. POC GLUCOSE 07/03/2018 Results for this 9:19 PM CDT procedure are in the results section. POC GLUCOSE 07/03/2018 Results for this 7:40 PM CDT procedure are in the results section. POC GLUCOSE 07/03/2018 Results for this 6:37 PM CDT procedure are in the results section. POC GLUCOSE 07/03/2018 Results for this 5:31 PM CDT procedure are in the results section. POC GLUCOSE 07/03/2018 Results for this 4:35 PM CDT procedure are in the results section. POC GLUCOSE 07/03/2018 Results for this 3:36 PM CDT procedure are in the results section. HEMOGLOBIN Routine 07/03/2018 Results for this 3:25 PM CDT procedure are in the results section. POC GLUCOSE 07/03/2018 Results for this 2:22 PM CDT procedure are in the results section. POC GLUCOSE 07/03/2018 Results for this 1:24 PM CDT procedure are in the results section. POC GLUCOSE 07/03/2018 Results for this 12:20 PM CDT procedure are in the results section. CONSULT IV THERAPY TEAM Routine 07/03/2018 11:44 AM CDT POC GLUCOSE 07/03/2018 Results for this 10:45 AM CDT procedure are in the results section. POC GLUCOSE 07/03/2018 Results for this 9:22 AM CDT procedure are in the results section. SWALLOW MOTION SERIES Routine 07/03/2018 Results for this 8:59 AM CDT procedure are in the results section. POC GLUCOSE 07/03/2018 Results for this 8:04 AM CDT procedure are in the results section. ECG-SCAN 07/03/2018 Results for this 7:35 AM CDT procedure are in the results section. POC GLUCOSE 07/03/2018 Results for this 5:03 AM CDT procedure are in the results section. CBC Routine 07/03/2018 Results for this 4:11 AM CDT procedure are in the results section. BASIC METABOLIC PANEL Routine 07/03/2018 Results for this 4:11 AM CDT procedure are in the results section. POC GLUCOSE 07/03/2018 Results for this 3:57 AM CDT procedure are in the results section. POC GLUCOSE 07/03/2018 Results for this 3:06 AM CDT procedure are in the results section. POC GLUCOSE 07/03/2018 Results for this 2:01 AM CDT procedure are in the results section. POC GLUCOSE 07/03/2018 Results for this 1:05 AM CDT procedure are in the results section. POC GLUCOSE 07/03/2018 Results for this 12:35 AM CDT procedure are in the results section. POC GLUCOSE 07/03/2018 Results for this 12:13 AM CDT procedure are in the results section. POC GLUCOSE 07/02/2018 Results for this 11:03 PM CDT procedure are in the results section. POC GLUCOSE 07/02/2018 Results for this 9:56 PM CDT procedure are in the results section. POC GLUCOSE 07/02/2018 Results for this 9:36 PM CDT procedure are in the results section. POC GLUCOSE 07/02/2018 Results for this 9:32 PM CDT procedure are in the results section. POC GLUCOSE 07/02/2018 Results for this 9:13 PM CDT procedure are in the results section. POC GLUCOSE 07/02/2018 Results for this 9:11 PM CDT procedure are in the results section. POC GLUCOSE 07/02/2018 Results for this 7:58 PM CDT procedure are in the results section. POC GLUCOSE 07/02/2018 Results for this 6:56 PM CDT procedure are in the results section. POC GLUCOSE 07/02/2018 Results for this 6:07 PM CDT procedure are in the results section. POC GLUCOSE 07/02/2018 Results for this 4:52 PM CDT procedure are in the results section. POC GLUCOSE 07/02/2018 Results for this 4:24 PM CDT procedure are in the results section. POC GLUCOSE 07/02/2018 Results for this 3:09 PM CDT procedure are in the results section. POC GLUCOSE 07/02/2018 Results for this 2:13 PM CDT procedure are in the results section. POC GLUCOSE 07/02/2018 Results for this 12:59 PM CDT procedure are in the results section. POC GLUCOSE 07/02/2018 Results for this 12:02 PM CDT procedure are in the results section. POC GLUCOSE 07/02/2018 Results for this 11:10 AM CDT procedure are in the results section. ABDOMEN AP ONLY Routine 07/02/2018 Results for this 10:20 AM CDT procedure are in the results section. POC GLUCOSE 07/02/2018 Results for this 10:14 AM CDT procedure are in the results section. POC GLUCOSE 07/02/2018 Results for this 9:22 AM CDT procedure are in the results section. POC GLUCOSE 07/02/2018 Results for this 8:04 AM CDT procedure are in the results section. POC GLUCOSE 07/02/2018 Results for this 6:05 AM CDT procedure are in the results section. POC GLUCOSE 07/02/2018 Results for this 5:00 AM CDT procedure are in the results section. CBC Routine 07/02/2018 Results for this 4:15 AM CDT procedure are in the results section. BASIC METABOLIC PANEL Routine 07/02/2018 Results for this 4:15 AM CDT procedure are in the results section. PHOSPHORUS Routine 07/02/2018 Results for this 4:15 AM CDT procedure are in the results section. MAGNESIUM Routine 07/02/2018 Results for this 4:15 AM CDT procedure are in the results section. IONIZED CALCIUM Routine 07/02/2018 Results for this 4:15 AM CDT procedure are in the results section. CULTURE-BLOOD Routine 07/02/2018 Results for this W/SENSITIVITY 4:15 AM CDT procedure are in the results section. POC GLUCOSE 07/02/2018 Results for this 4:00 AM CDT procedure are in the results section. POC GLUCOSE 07/02/2018 Results for this 3:06 AM CDT procedure are in the results section. POC GLUCOSE 07/02/2018 Results for this 2:02 AM CDT procedure are in the results section. POC GLUCOSE 07/02/2018 Results for this 1:12 AM CDT procedure are in the results section. POC GLUCOSE 07/02/2018 Results for this 12:05 AM CDT procedure are in the results section. POC GLUCOSE 07/01/2018 Results for this 11:03 PM CDT procedure are in the results section. POC GLUCOSE 07/01/2018 Results for this 10:07 PM CDT procedure are in the results section. POC GLUCOSE 07/01/2018 Results for this 9:18 PM CDT procedure are in the results section. MRI HEAD WO CONTRAST Routine 07/01/2018 Results for this 9:10 PM CDT procedure are in the results section. POC GLUCOSE 07/01/2018 Results for this 8:07 PM CDT procedure are in the results section. POC GLUCOSE 07/01/2018 Results for this 6:59 PM CDT procedure are in the results section. POC GLUCOSE 07/01/2018 Results for this 6:03 PM CDT procedure are in the results section. POC GLUCOSE 07/01/2018 Results for this 5:10 PM CDT procedure are in the results section. POC GLUCOSE 07/01/2018 Results for this 4:04 PM CDT procedure are in the results section. EEG DEPARTMENT ORDER STAT 07/01/2018 3:47 PM CDT BLOOD GASES, ARTERIAL Routine 07/01/2018 Results for this 3:06 PM CDT procedure are in the results section. POC GLUCOSE 07/01/2018 Results for this 3:05 PM CDT procedure are in the results section. CT HEAD WO CONTRAST STAT 07/01/2018 Results for this 2:46 PM CDT procedure are in the results section. 2-D + DOPPLER Routine 07/01/2018 Results for this ECHOCARDIOGRAM 2:08 PM CDT procedure are in the results section. CULTURE-BLOOD Routine 07/01/2018 Results for this W/SENSITIVITY 1:04 PM CDT procedure are in the results section. POC GLUCOSE 07/01/2018 Results for this 1:02 PM CDT procedure are in the results section. ECG 12-LEAD Routine 07/01/2018 12:56 PM CDT URINALYSIS MICROSCOPIC Routine 07/01/2018 Results for this REFLEX TO CULTURE 12:53 PM CDT procedure are in the results section. URINALYSIS DIPSTICK Routine 07/01/2018 Results for this REFLEX TO CULTURE 12:53 PM CDT procedure are in the results section. LACTIC ACID(LACTATE) Add on 07/01/2018 Results for this 12:50 PM CDT procedure are in the results section. BETA HYDROXYBUTYRATE Add on 07/01/2018 Results for this (KETONES) 12:50 PM CDT procedure are in the results section. LACTIC ACID (BG - RAPID STAT 07/01/2018 Results for this LACTATE) 12:50 PM CDT procedure are in the results section. CBC AND DIFF Routine 07/01/2018 Results for this 12:50 PM CDT procedure are in the results section. IONIZED CALCIUM Routine 07/01/2018 Results for this 12:50 PM CDT procedure are in the results section. PHOSPHORUS Routine 07/01/2018 Results for this 12:50 PM CDT procedure are in the results section. MAGNESIUM Routine 07/01/2018 Results for this 12:50 PM CDT procedure are in the results section. LIPID PROFILE Routine 07/01/2018 Results for this 12:50 PM CDT procedure are in the results section. COMPREHENSIVE METABOLIC Routine 07/01/2018 Results for this PANEL 12:50 PM CDT procedure are in the results section. HEMOGLOBIN A1C Routine 07/01/2018 Results for this 12:50 PM CDT procedure are in the results section. IR ARTERIOGRAM NEURO STAT 07/01/2018 Results for this 12:29 PM CDT procedure are in the results section. CT BRAIN PERF STAT 07/01/2018 Results for this 11:52 AM CDT procedure are in the results section. CTA NECK WO/W STAT 07/01/2018 Results for this CONTRAST+POST P 11:52 AM CDT procedure are in the results section. CTA HEAD WO/W CONTR+POST STAT 07/01/2018 Results for this PRO 11:52 AM CDT procedure are in the results section. from Last 3 Months Results * POC GLUCOSE (07/09/2018 3:42 PM) Only the most recent of 114 results within the time period is included. Glucose, POC 87 70 - 100 MG/DL [facility] Performing Organization Address City/[facility] Phone Number [facility] [address] [phone] * CBC AND DIFF (07/09/2018 5:47 AM) Only the most recent of 4 results within the time period is included. White Blood Cells 15.4 (H) 4.5 - 11.0 K/UL [facility] RBC 2.96 (L) 4.4 - 5.5 M/UL [facility] Hemoglobin 8.9 (L) 13.5 - 16.5 GM/DL [facility] Hematocrit 26.7 (L) 40 - 50 % [facility] MCV 90.0 80 - 100 FL [facility] MCH 29.9 26 - 34 PG [facility] MCHC 33.2 32.0 - 36.0 G/DL [facility] RDW 14.3 11 - 15 % [facility] Platelet Count 459 (H) 150 - 400 K/UL [facility] MPV 8.2 7 - 11 FL [facility] Neutrophils 77 41 - 77 % [facility] Lymphocytes 14 (L) 24 - 44 % [facility] Monocytes 8 4 - 12 % [facility] Eosinophils 1 0 - 5 % [facility] Basophils 0 0 - 2 % [facility] Absolute Neutrophil Count 11.70 (H) 1.8 - 7.0 K/UL [facility] Absolute Lymph Count 2.10 1.0 - 4.8 K/UL [facility] Absolute Monocyte Count 1.30 (H) 0 - 0.80 K/UL [facility] Absolute Eosinophil Count 0.20 0 - 0.45 K/UL [facility] Absolute Basophil Count 0.00 0 - 0.20 K/UL [facility] Specimen Blood Performing Organization Address City/[facility]/Zipcode Phone Number [facility] [address] [place] [address] * COMPREHENSIVE METABOLIC PANEL (07/09/2018 5:47 AM) Only the most recent of 4 results within the time period is included. Sodium 137 137 - 147 MMOL/L [facility] Potassium 3.7 3.5 - 5.1 MMOL/L [facility] Chloride 105 98 - 110 MMOL/L [facility] Glucose 118 (H) 70 - 100 MG/DL [facility] Blood Urea Nitrogen 5 (L) 7 - 25 MG/DL [facility] Creatinine 0.98 0.4 - 1.24 MG/DL [facility] Calcium 8.5 8.5 - 10.6 MG/DL [facility] Total Protein 5.8 (L) 6.0 - 8.0 G/DL [facility] Total Bilirubin 0.6 0.3 - 1.2 MG/DL [facility] Albumin 3.0 (L) 3.5 - 5.0 G/DL [facility] Alk Phosphatase 103 25 - 110 U/L [facility] AST (SGOT) 36 7 - 40 U/L [facility] CO2 23 21 - 30 MMOL/L [facility] ALT (SGPT) 21 7 - 56 U/L [facility] Anion Gap 9 3 - 12 [facility] eGFR Non >60 >60 mL/min [facility] Comment: The eGFR is not validated for use in drug dosing adjustments.Continue to use estimated creatinine clearance per dosing reference text.Please contact the Clinical Pharmacist for questions. eGFR >60 >60 mL/min [facility] Comment: The eGFR is not validated for use in drug dosing adjustments.Continue to use estimated creatinine clearance per dosing reference text.Please contact the Clinical Pharmacist for questions. Specimen Blood Performing Organization Address City/[facility]/Zipcode Phone Number [facility] [address] [place] [address] * URINALYSIS MICROSCOPIC REFLEX TO CULTURE (07/08/2018 4:09 PM) Only the most recent of 3 results within the time period is included. WBCs,UA 0-2 0 - 2 /HPF [facility] RBCs,UA 0-2 0 - 3 /HPF [facility] Comment,UA Urine submitted for reflex [facility] culture if criteria are met:WBC>10, positive nitrite and/or >=1+ leukocyte esterase. If quantity is not sufficient, an addendum will follow. Specimen Urine Performing Organization Address City/[facility]/Zipcode Phone Number [facility] [address] [place] [address] * URINALYSIS DIPSTICK REFLEX TO CULTURE (07/08/2018 4:09 PM) Only the most recent of 3 results within the time period is included. Color,UA STRAW [facility] Turbidity,UA CLEAR CLEAR-CLEAR [facility] Specific [place]-Urine 1.005 1.003 - 1.035 [facility] pH,UA 8.0 5.0 - 8.0 [facility] Protein,UA NEG NEG-NEG [facility] Glucose,UA NEG NEG-NEG [facility] Ketones,UA NEG NEG-NEG [facility] Bilirubin,UA NEG NEG-NEG [facility] Blood,UA 1+ (A) NEG-NEG [facility] Urobilinogen,UA NORMAL NORM-NORMAL [facility] Nitrite,UA NEG NEG-NEG [facility] Leukocytes,UA NEG NEG-NEG [facility] Urine Ascorbic Acid, UA NEG NEG-NEG [facility] Specimen Urine Performing Organization Address City/State/Zipcode Phone Number [facility] [address] [place] [address] * CHEST SINGLE VIEW (07/08/2018 2:15 PM) Impressions Performed At Poor depth of inspiration with mild bibasilar atelectasis. [facility] Approved by Larry Alatorre MD on 07/08/2018 3:02 PM By my electronic signature, I attest that I have personally reviewed the images for this examination and formulated the interpretations and opinions expressed in this report Finalized by Luis Sanches M.D. on 07/08/2018 3:13 PM. Dictated by Larry Alatorre MD on 07/08/2018 2:17 PM. Narrative Performed At Single portable AP upright chest radiograph [facility] Clinical Indication: 57-year-old male. Fever, leukocytosis Comparison: Chest radiograph January 15, 2016. Findings: Heart size is normal without evidence of pulmonary vascular congestion. There is poor depth of inspiration with mild bibasilar atelectasis. There is no pleural effusion or pneumothorax. Procedure Note Interface, Radiant Results - 07/08/2018 3:16 PM CDT Single portable AP upright chest radiograph Clinical Indication: 57-year-old male. Fever, leukocytosis Comparison: Chest radiograph January 15, 2016. Findings: Heart size is normal without evidence of pulmonary vascular congestion. There is poor depth of inspiration with mild bibasilar atelectasis. There is no pleural effusion or pneumothorax. IMPRESSION Poor depth of inspiration with mild bibasilar atelectasis. Approved by Larry Alatorre MD on 07/08/2018 3:02 PM By my electronic signature, I attest that I have personally reviewed the images for this examination and formulated the interpretations and opinions expressed in this report Finalized by Luis Sanches M.D. on 07/08/2018 3:13 PM. Dictated by Larry Alatorre MD on 07/08/2018 2:17 PM. Performing Organization Address City/State/Zipcode Phone Number [facility] * EGD REPORT (07/08/2018 10:48 AM) Provation Report Patient Name: Raj DIMAS OTHER RESULTS Procedure Date: 07/08/2018 10:48 AM CSN: [id number] Date of : 1960 Gender: Male Attending Physician: Clara Carolina MD Procedure: Upper GI endoscopy Indications: Anemia (Mixed picture of anemia of chronic disease + Iron deficiency anemia), new onset of Afib and not on AC. Providers: Clara Carolina MD (Doctor), Roberto Dutta MD (Fellow), Alvaro Banegas (Nurse), Minna Jiméenz RN (Nurse), Abisai Burden, Contract Accountant (Contract Accountant) Referring Physician: Referral Self Medications: Monitored Anesthesia Care Complications: No immediate complications. Procedure: Pre-Anesthesia Assessment: - Prior to the procedure, a History and Physical was performed, and patient medications and allergies were reviewed. The patient's tolerance of previous anesthesia was also reviewed. The risks and benefits of the procedure and the sedation options and risks were discussed with the patient. All questions were answered, and informed consent was obtained. Prior Anticoagulants: The patient has taken no previous anticoagulant or antiplatelet agents. ASA Grade Assessment: III - A patient with severe systemic disease. After reviewing the risks and benefits, the patient was deemed in satisfactory condition to undergo the procedure. - The anesthesia plan was to use monitored anesthesia care (MAC). After obtaining informed consent, the endoscope was passed under direct vision. Throughout the procedure, the patient's blood pressure, pulse, and oxygen saturations were monitored continuously. The Endoscope [id number] was introduced through the mouth, and advanced to the second part of duodenum. The upper GI endoscopy was accomplished without difficulty. The patient tolerated the procedure well. Findings: Esophagogastric landmarks were identified: the upper extent of the gastric folds was found at 38 cm and the site of hiatal narrowing was found at 40 cm from the incisors. A 2 cm hiatal hernia was present. One small superficial erosion noted in the upper esophagus, likley 2/2 ?NG tube trauma. Inlet patch noted. Otherwise normal esophagus. Localized mildly erythematous mucosa was found in the gastric body. The exam of the stomach was otherwise normal. The duodenal bulb, first portion of the duodenum and second portion of the duodenum were normal. Biopsies were taken with a cold forceps for histology. Impression: - Esophagogastric landmarks identified. - 2 cm hiatal hernia. - One small superficial erosion noted in the upper esophagus, likley 2/2 ?NG tube trauma. Inlet patch noted. Otherwise normal esophagus. - Erythematous mucosa in the gastric body. - Normal duodenal bulb, first portion of the duodenum and second portion of the duodenum. Biopsied. Estimated Blood Loss: Estimated blood loss: none. Recommendation: - Patient has a contact number available for emergencies. The signs and symptoms of potential delayed complications were discussed with the patient. Return to normal activities tomorrow. Written discharge instructions were provided to the patient. - Resume previous diet. - Continue present medications. - Await pathology results. Scope In: 12:14:46 PM Scope Out: 12:22:41 PM Total Procedure Duration Time 0 hours 7 minutes 55 seconds Procedure Code(s): --- Professional --- 91623, Esophagogastroduodenoscopy, flexible, transoral; with biopsy, single or multiple Diagnosis Code(s): --- Professional --- K44.9, Diaphragmatic hernia without obstruction or gangrene K31.89, Other diseases of stomach and duodenum D50.0, Iron deficiency anemia secondary to blood loss (chronic) CPT copyright 2016 [employer]. All rights reserved. The codes documented in this report are preliminary and upon order picker/assembler review may be revised to meet current compliance requirements. Attending Participation: I was present and participated during the entire procedure, including non-jacobs portions. MD Clara De Oliveira MD 07/08/2018 1:28:58 PM The attending physician has electronically signed and finalized this document. Roberto Dutta MD Number of Addenda: 0 Note Initiated On: 07/08/2018 10:48 AM Performing Organization Address City/State/Zipcode Phone Number [facility] OTHER RESULTS * COLONOSCOPY (07/08/2018 10:47 AM) Provation Report Patient Name: Raj DIMAS OTHER RESULTS Procedure Date: 07/08/2018 10:47 AM CSN: [id number] Date of : 1960 Gender: Male Attending Physician: Clara Carolina MD Procedure: Colonoscop y Indications: Anemia (Mixed picture of anemia of chronic disease + Iron deficiency anemia), new onset of Afib and not on AC. Providers: Clara Carolina MD (Doctor), Roberto Dutta MD (Fellow), Alvaro Banegas (Nurse), Minna Jiménez RN (Nurse), Abisai Burden, Contract Accountant (Contract Accountant) Referring Physician: Gerard Salazar MD Medications: Monitored Anesthesia Care Complications: No immediate complications. Procedure: Pre-Anesthesia Assessment: - Prior to the procedure, a History and Physical was performed, and patient medications and allergies were reviewed. The patient's tolerance of previous anesthesia was also reviewed. The risks and benefits of the procedure and the sedation options and risks were discussed with the patient. All questions were answered, and informed consent was obtained. Prior Anticoagulants: The patient has taken no previous anticoagulant or antiplatelet agents. ASA Grade Assessment: III - A patient with severe systemic disease. After reviewing the risks and benefits, the patient was deemed in satisfactory condition to undergo the procedure. - The anesthesia plan was to use monitored anesthesia care (MAC). After I obtained informed consent, the scope was passed under direct vision. Throughout the procedure, the patient's blood pressure, pulse, and oxygen saturations were monitored continuously. The Colonoscope [id number] was introduced through the anus and advanced to the terminal ileum, with identification of the appendiceal orifice and IC valve. The colonoscopy was performed without difficulty. The patient tolerated the procedure well. The terminal ileum, ileocecal valve, appendiceal orifice, and rectum were photographed. The quality of the bowel preparation was inadequate. Findings: The perianal and digital rectal examinations were normal. The terminal ileum appeared normal. One 5 mm sessile transverse colon polyp removed with cold snare and one hemostatic clip placed. One 6 mm sessile descending colon polyp removed with cold snare and one hemostatic clip placed. There were 6 sessile 3-5 mm colon polyp removed with cold snare and biopsy forceps. Otherwise normal colonoscopy. Retroflexion not done due to narrow rectum. Impression: - Preparation of the colon was inadequate. - The examined portion of the ileum was normal. - One 5 mm sessile transverse colon polyp removed with cold snare and one hemostatic clip placed. One 6 mm sessile descending colon polyp removed with cold snare and one hemostatic clip placed. There were 6 sessile 3-5 mm colon polyp removed with cold snare and biopsy forceps. Otherwise normal colonoscopy. Retroflexion not done due to narrow rectum. - No specimens collected. Estimated Blood Loss: Estimated blood loss was minimal. Recommendation: - Patient has a contact number available for emergencies. The signs and symptoms of potential delayed complications were discussed with the patient. Return to normal activities tomorrow. Written discharge instructions were provided to the patient. - Resume previous diet. - Continue present medications. - Repeat colonoscopy in 1 year for surveillance of polyp due to inadequate prep today and multiple polyps removed. - Await pathology results. Scope In: 12:28:13 PM Scope Out: 12:57:28 PM Scope Withdrawal Time 0 hours 25 minutes 36 seconds Total Procedure Duration Time 0 hours 29 minutes 15 seconds Procedure Code(s): --- Professional --- 11378, Colonoscopy, flexible; diagnostic, including collection of specimen(s) by brushing or washing, when performed (separate procedure) Diagnosis Code(s): --- Professional --- D50.0, Iron deficiency anemia secondary to blood loss (chronic) CPT copyright 2016 [employer]. All rights reserved. The codes documented in this report are preliminary and upon order picker/assembler review may be revised to meet current compliance requirements. Attending Participation: I was present and participated during the entire procedure, including non-jacobs portions. MD Clara De Oliveira MD 07/08/2018 1:28:26 PM The attending physician has electronically signed and finalized this document. Roberto Dutta MD Number of Addenda: 0 Note Initiated On: 07/08/2018 10:47 AM Performing Organization Address City/State/Zipcode Phone Number [facility] OTHER RESULTS * PROCALCITONIN (07/08/2018 5:53 AM) Procalcitonin 0.13 (H) <0.10 NG/ML [facility] Performing Organization Address [facility] Phone Number [facility] [address] [place] [address] * HEMOGLOBIN (07/07/2018 5:45 AM) Only the most recent of 10 results within the time period is included. Hemoglobin 9.5 (L) 13.5 - 16.5 GM/DL [facility] Comment: Corrected on 07/09 AT 1021: previously reported as DUPLICATE ORDER, Corrected on 07/07 AT 0811: previously reported as 9.5 Specimen Blood Performing Organization Address [facility] Phone Number [facility] [address] [place] [address] * OCCULT BLOOD NON COLON CANCER SCREEN (07/06/2018 10:45 PM) Battery Name OCCULT BLOOD SCREEN MAIN LAB Specimen Description FECES [facility] Special Requests NONE MAIN LAB Occult Blood NEGATIVE MAIN LAB Report Status FINAL [facility] LAB 07/06/2018 Specimen Stool - Feces Performing Organization Address [facility] Phone Number MAIN LAB [address] [place] [address] * CBC (07/06/2018 4:27 AM) Only the most recent of 5 results within the time period is included. White Blood Cells 11.3 (H) 4.5 - 11.0 K/UL [facility]IN LAB RBC 3.05 (L) 4.4 - 5.5 M/UL [facility] Hemoglobin 9.3 (L) 13.5 - 16.5 GM/DL [facility] Hematocrit 27.1 (L) 40 - 50 % [facility]IN LAB MCV 88.8 80 - 100 FL [facility]IN LAB MCH 30.5 26 - 34 PG MAIN LAB MCHC 34.4 32.0 - 36.0 G/DL MAIN LAB RDW 14.2 11 - 15 % MAIN LAB Platelet Count 487 (H) 150 - 400 K/UL MAIN LAB MPV 8.6 7 - 11 FL MAIN LAB Specimen Blood Performing Organization Address [facility] Phone Number [facility] [address] [place] [address] * BASIC METABOLIC PANEL (07/06/2018 4:27 AM) Only the most recent of 5 results within the time period is included. Sodium 138 137 - 147 MMOL/L [facility] Potassium 3.8 3.5 - 5.1 MMOL/L [facility] Chloride 103 98 - 110 MMOL/L [facility] CO2 26 21 - 30 MMOL/L [facility] Anion Gap 9 3 - 12 [facility] Glucose 146 (H) 70 - 100 MG/DL [facility] Blood Urea Nitrogen 9 7 - 25 MG/DL [facility] Creatinine 1.18 0.4 - 1.24 MG/DL [facility] Calcium 8.5 8.5 - 10.6 MG/DL [facility] eGFR Non >60 >60 mL/min [facility] Comment: The eGFR is not validated for use in drug dosing adjustments.Continue to use estimated creatinine clearance per dosing reference text.Please contact the Clinical Pharmacist for questions. eGFR >60 >60 mL/min [facility] Comment: The eGFR is not validated for use in drug dosing adjustments.Continue to use estimated creatinine clearance per dosing reference text.Please contact the Clinical Pharmacist for questions. Specimen Blood Performing Organization Address City/[facility]/Zipcode Phone Number [facility] [address] [place] [address] * CULTURE-URINE W/SENSITIVITY (07/05/2018 6:45 PM) Battery Name URINE CULTURE MAIN LAB Specimen Description URINE MAIN LAB Special Requests NONE MAIN LAB Culture NO GROWTH MAIN LAB Report Status FINAL [facility] 07/06/2018 Specimen Urine Performing Organization Address City/[facility]/Zipcode Phone Number [facility] [address] [place] [address] * ABDOMEN AP ONLY (07/05/2018 9:20 AM) Only the most recent of 2 results within the time period is included. Impressions Performed At Interval removal of previously noted enteric tube without evidence of bowel [facility] RES[facility] obstruction. By my electronic signature, I attest that I have personally reviewed the images for this examination and formulated the interpretations and opinions expressed in this report Finalized by Byron Zavala M.D. on 07/05/2018 10:24 AM. Dictated by Imelda Reid M.D. on 07/05/2018 10:21 AM. Narrative Performed At Procedure: ABDOMEN AP ONLY [facility] RES[facility] Clinical Indication: Constipation Comparison: AP abdomen 07/02/2018 Findings: Retained ingested contrast material is noted throughout the colon. Several surgical clips and skin imelda are noted projecting over the pelvis. Gas is noted within large and small bowel loops. Interval removal of the previously noted enteric tube. Procedure Note Interface, Radiant Results - 07/05/2018 10:27 AM CDT Procedure: ABDOMEN AP ONLY Clinical Indication: Constipation Comparison: AP abdomen 07/02/2018 Findings: Retained ingested contrast material is noted throughout the colon. Several surgical clips and skin imelda are noted projecting over the pelvis. Gas is noted within large and small bowel loops. Interval removal of the previously noted enteric tube. IMPRESSION Interval removal of previously noted enteric tube without evidence of bowel obstruction. By my electronic signature, I attest that I have personally reviewed the images for this examination and formulated the interpretations and opinions expressed in this report Finalized by Byron Zavala M.D. on 07/05/2018 10:24 AM. Dictated by Imelda Reid M.D. on 07/05/2018 10:21 AM. Performing Organization Address [facility] Phone Number RAD RESULTS * IRON + BINDING CAPACITY + %SAT+ FERRITIN (07/04/2018 2:20 PM) Iron 49 (L) 50 - 185 MCG/DL [facility] Iron Binding-TIBC 212 (L) 270 - 380 MCG/DL MAIN LAB % Saturation 23 (L) 28 - 42 % [facility] Ferritin 383 (H) 30 - 300 NG/ML MAIN LAB Specimen Blood Performing Organization Address [facility] Phone Number [facility] [address] [place] [address] * BLOOD TYPE CONFIRMATION - ORDER ONLY IF REQUESTED BY LAB (07/04/2018 12:13 AM) ABO/RH(D) O NEG MAIN LAB Specimen Blood Performing Organization Address [facility] Phone Number MAIN LAB [address] [place] [address] * TYPE & CROSSMATCH (07/03/2018 11:48 PM) Units Ordered 1 MAIN LAB Crossmatch Expires 07/06/2018 MAIN LAB Record Check 2ND TYPE REQUIRED MAIN LAB ABO/RH(D) O NEG MAIN LAB Antibody Screen NEG MAIN LAB Electronic Crossmatch YES MAIN LAB Unit Number [id number] MAIN LAB Blood Component Type RBC,CPDA,LEUKO REDUCED MAIN LAB Unit Division 0 [facility] Status OF Unit TRANSFUSED MAIN LAB Transfusion Status OK TO TRANSFUSE MAIN LAB Crossmatch Result COMPATIBLE,ELECTRONIC MAIN LAB Specimen Blood Performing Organization Address City/State/Zipcode Phone Number MAIN LAB [address] [place] [address] * SWALLOW MOTION SERIES (07/03/2018 8:59 AM) Impressions Performed At 1. Limited examination demonstrating deep laryngeal penetration with thin [facility] consistency of barium and laryngeal penetration with nectar thick consistency of barium. 2. Please see separately dictated report from the Department of Speech Pathology for further description. By my electronic signature, I attest that I have personally reviewed the images for this examination and formulated the interpretations and opinions expressed in this report Finalized by DWAYNE POLK M.D. on 07/03/2018 9:23 AM. Dictated by Robby Devi M.D. on 07/03/2018 9:08 AM. Narrative Performed At SWALLOW MOTION SERIES [facility] RESULTS CLINICAL HISTORY: 57-year-old male, right MCA stroke, oropharyngeal dysphagia. TECHNIQUE: The procedure was performed in conjunction with members of the department of speech pathology. Video fluoroscopy was performed during swallowing of various consistencies of barium. Examination is limited due to patient motion. The patient tolerated the procedure well and left the department in stable condition. TOTAL FLUOROSCOPY TIME: 360 seconds FINDINGS: Limited examination due to patient positioning and motion. Deep laryngeal penetration to the level of the false cords was observed with thin consistency of barium. Laryngeal penetration was observed with nectar thick consistency of barium. No evidence of laryngeal penetration or aspiration with the remaining tested consistencies of barium. Procedure Note Interface, Radiant Results - 07/03/2018 9:26 AM CDT SWALLOW MOTION SERIES CLINICAL HISTORY: 57-year-old male, right MCA stroke, oropharyngeal dysphagia. TECHNIQUE: The procedure was performed in conjunction with members of the department of speech pathology. Video fluoroscopy was performed during swallowing of various consistencies of barium. Examination is limited due to patient motion. The patient tolerated the procedure well and left the department in stable condition. TOTAL FLUOROSCOPY TIME: 360 seconds FINDINGS: Limited examination due to patient positioning and motion. Deep laryngeal penetration to the level of the false cords was observed with thin consistency of barium. Laryngeal penetration was observed with nectar thick consistency of barium. No evidence of laryngeal penetration or aspiration with the remaining tested consistencies of barium. IMPRESSION 1. Limited examination demonstrating deep laryngeal penetration with thin consistency of barium and laryngeal penetration with nectar thick consistency of barium. 2. Please see separately dictated report from the Department of Speech Pathology for further description. By my electronic signature, I attest that I have personally reviewed the images for this examination and formulated the interpretations and opinions expressed in this report Finalized by DWAYNE POLK M.D. on 07/03/2018 9:23 AM. Dictated by Robby Devi M.D. on 07/03/2018 9:08 AM. Performing Organization Address City/[facility] Phone Number RAD RESULTS * ECG-SCAN (07/03/2018 7:35 AM) Narrative Performed At Ordered by an unspecified provider. * CULTURE-BLOOD W/SENSITIVITY (07/02/2018 4:15 AM) Only the most recent of 2 results within the time period is included. Battery Name BLOOD CULTURE MAIN LAB Specimen Description BLOOD MAIN LAB RIGHT RADIAL ARTERIAL Special Requests NONE MAIN LAB Culture NO GROWTH 5 DAYS MAIN LAB Report Status FINAL MAIN LAB 07/08/2018 Specimen Blood Performing Organization Address [facility] Phone Number [facility] [address] [place] [address] * PHOSPHORUS (07/02/2018 4:15 AM) Only the most recent of 2 results within the time period is included. Phosphorus 2.6 2.0 - 4.0 MG/DL MAIN LAB Specimen Blood Performing Organization Address [facility] Phone Number [facility] [address] [place] [address] * MAGNESIUM (07/02/2018 4:15 AM) Only the most recent of 2 results within the time period is included. Magnesium 1.9 1.6 - 2.6 mg/dL [facility] Specimen Blood Performing Organization Address [facility] Phone Number MAIN LAB [address] [place] [address] * IONIZED CALCIUM (07/02/2018 4:15 AM) Only the most recent of 2 results within the time period is included. Ionized Calcium 1.14 1.0 - 1.3 MMOL/L [facility] Specimen Blood Performing Organization Address City/State/Zipcode Phone Number MAIN LAB [address] [place] [address] * MRI HEAD WO CONTRAST (07/01/2018 9:10 PM) Addenda Addendum by Nixon Kemp MD on 07/02/2018 2:46 AM Finalized by Nixon Kemp M.D. on 07/02/2018 2:33 AM. Dictated by Nixon Kemp M.D. on 07/02/2018 2:25 AM.Addendum: Findings were discussed by telephone with Melvin with the neuro ICU at 2:40 AM on 07/02/2018 Approved by Magaly Peck M.D. on 07/02/2018 2:42 AM By my electronic signature, I attest that I have personally reviewed the images for this examination and formulated the interpretations and opinions expressed in this report Finalized by Nixon Kemp M.D. on 07/02/2018 2:43 AM. Dictated by Magaly Peck M.D. on 07/02/2018 2:40 AM. Impressions Performed At 1. Redemonstration of a right MCA infarct, with greatest involvement of the [facility] RAD RESULTS right temporal cortex and right insular cortex. There are small areas of petechial type hemorrhagic conversion within the infarct. At the additional focal acute infarct at the posterior right lentiform nucleus there is a small more focal parenchymal hemorrhage consistent with hemorrhagic transformation and corresponding to a focal hyperdensity on earlier CT head. 2. Additional small acute cortical infarct involving the posterior medial left temporal lobe. 3. Episcopalian of flow void within the right M1 segment, previously noted to be occluded. Narrative Performed At MRI head without contrast: [facility] RAD RESULTS Clinical Indication: R MCA stroke Technique: Axial T1, T2, FLAIR, diffusion weighted images, ADC, and GRE images are obtained to the brain. Sagittal T1 and coronal T2 images are also provided. Comparison: CT head from earlier same day. Findings: There is a moderate to large area of restricted diffusion in the right MCA territory involving portions of the right frontal, anterior inferior right parietal and right temporal lobes, with greatest involvement of the right temporal lobe and right insular cortex. At the posterior right lentiform nucleus there is additional area of restricted diffusion measuring approximately 1.9 cm AP and having associated low gradient signal measuring approximately 1.3 cm AP , most consistent with small area of hemorrhagic transformation within an infarct. Some additional small areas of mild cortical low gradient signal are seen within the right MCA infarct territory, most notably at the right insular cortex and just above the insular cortex, also consistent with areas of petechial type hemorrhagic transformation. There is corresponding increased FLAIR signal within the areas of acute right MCA infarct. At the posterior medial left temporal lobe there are small areas of cortical restricted diffusion consistent with acute infarct. There is only some minimal increased FLAIR signal at the left temporal infarct site, compatible with this being more acute/recent than the right MCA infarct. Mild cerebral sulcal effacement within areas of right MCA infarct are redemonstrated. However, there is no significant midline shift. There is slight mass effect on the right lateral ventricle. Basilar cisterns are patent. No herniation. Mild additional scattered foci of bilateral supratentorial white matter increased FLAIR signal are present, nonspecific though most consistent with chronic small vessel ischemic changes. Major vascular flow voids of the [place] of Tse and dural venous sinuses are preserved. There is sikh of flow void in the right M1 segment, previously occluded. Small right maxillary mucous retention cyst or polyp. Main paranasal sinuses and mastoids are well-aerated. Procedure Note Interface, Radiant Results - 07/02/2018 2:46 AM CDT MRI head without contrast: Clinical Indication: R MCA stroke Technique: Axial T1, T2, FLAIR, diffusion weighted images, ADC, and GRE images are obtained to the brain. Sagittal T1 and coronal T2 images are also provided. Comparison: CT head from earlier same day. Findings: There is a moderate to large area of restricted diffusion in the right MCA territory involving portions of the right frontal, anterior inferior right parietal and right temporal lobes, with greatest involvement of the right temporal lobe and right insular cortex. At the posterior right lentiform nucleus there is additional area of restricted diffusion measuring approximately 1.9 cm AP and having associated low gradient signal measuring approximately 1.3 cm AP, most consistent with small area of hemorrhagic transformation within an infarct. Some additional small areas of mild cortical low gradient signal are seen within the right MCA infarct territory, most notably at the right insular cortex and just above the insular cortex, also consistent with areas of petechial type hemorrhagic transformation. There is corresponding increased FLAIR signal within the areas of acute right MCA infarct. At the posterior medial left temporal lobe there are small areas of cortical restricted diffusion consistent with acute infarct. There is only some minimal increased FLAIR signal at the left temporal infarct site, compatible with this being more acute/recent than the right MCA infarct. Mild cerebral sulcal effacement within areas of right MCA infarct are redemonstrated. However, there is no significant midline shift. There is slight mass effect on the right lateral ventricle. Basilar cisterns are patent. No herniation. Mild additional scattered foci of bilateral supratentorial white matter increased FLAIR signal are present, nonspecific though most consistent with chronic small vessel ischemic changes. Major vascular flow voids of the [place] of Tse and dural venous sinuses are preserved. There is sikh of flow void in the right M1 segment, previously occluded. Small right maxillary mucous retention cyst or polyp. Main paranasal sinuses and mastoids are well-aerated. IMPRESSION 1. Redemonstration of a right MCA infarct, with greatest involvement of the right temporal cortex and right insular cortex. There are small areas of petechial type hemorrhagic conversion within the infarct. At the additional focal acute infarct at the posterior right lentiform nucleus there is a small more focal parenchymal hemorrhage consistent with hemorrhagic transformation and corresponding to a focal hyperdensity on earlier CT head. 2. Additional small acute cortical infarct involving the posterior medial left temporal lobe. 3. Episcopalian of flow void within the right M1 segment, previously noted to be occluded. Performing Organization Address City/State/Zipcode Phone Number [facility] RESULTS * BLOOD GASES, ARTERIAL (07/01/2018 3:06 PM) pH-Arterial 7.34 (L) 7.35 - 7.45 [facility]IN [facility] pCO2-Arterial 39 35 - 45 MMHG [facility]IN [facility] pO2-Arterial 102 (H) 80 - 100 MMHG [facility]IN [facility] Base Deficit-Arterial 4.6 MMOL/L [facility] O2 Sat-Arterial 97.5 95 - 99 % [facility] Mqmbpvllvfh-HII-Bty 20.6 (L) 21 - 28 MMOL/L [facility]IN [facility] Specimen Blood, arterial - Blood Performing Organization Address City/State/Zipcode Phone Number [facility] [address] [place] [address] * CT HEAD WO CONTRAST (07/01/2018 2:46 PM) Impressions Performed At 1.Hazy hyperdensity in the posterior right lentiform nucleus with increased [facility] RAD RESULTS density throughout the right insula and right anterior lateral temporal lobe. This likely represents contrast staining within previous areas of loss of lara-white interface. Hemorrhagic transformation is unlikely. 2.No new loss of lara-white differentiation. 3.Unchanged patchy supratentorial white matter hypodensities. Approved by Miesha Maldonado M.D. on 07/01/2018 3:25 PM By my electronic signature, I attest that I have personally reviewed the images for this examination and formulated the interpretations and opinions expressed in this report Finalized by TALIA BOSTON M.D. on 07/01/2018 4:02 PM. Dictated by Miesha Maldonado M.D. on 07/01/2018 2:56 PM. Narrative Performed At EXAM: CT HEAD [facility] RAD RESULTS HISTORY: , R MCA stroke, TECHNIQUE: Multiple contiguous axial images were obtained of the brain without intravenous contrast. COMPARISON: CTA head and neck, brain perfusion. FINDINGS: Dr. TALIA BOSTON M.D. has personally reviewed these images and formulated the interpretations and opinions expressed in this report. Development of a focal area of hazy hyperdensity within the posterior right lentiform nucleus as well as new increased ill-defined hyperdensities along the right insular and anterior temporal lobe region. Patchy supratentorial white matter hypodensities slightly asymmetric in the right hemisphere. The ventricles and subarachnoid spaces are normal in size and configuration. No significant midline shift or mass effect. There is no evidence of acute intracranial hemorrhage. The basal cisterns are patent. The calvarium is intact. Procedure Note Interface, Radiant Results - 07/01/2018 4:05 PM CDT EXAM: CT HEAD HISTORY: , R MCA stroke, TECHNIQUE: Multiple contiguous axial images were obtained of the brain without intravenous contrast. COMPARISON: CTA head and neck, brain perfusion. FINDINGS: Dr. TALIA BOSTON M.D. has personally reviewed these images and formulated the interpretations and opinions expressed in this report. Development of a focal area of hazy hyperdensity within the posterior right lentiform nucleus as well as new increased ill-defined hyperdensities along the right insular and anterior temporal lobe region. Patchy supratentorial white matter hypodensities slightly asymmetric in the right hemisphere. The ventricles and subarachnoid spaces are normal in size and configuration. No significant midline shift or mass effect. There is no evidence of acute intracranial hemorrhage. The basal cisterns are patent. The calvarium is intact. IMPRESSION 1. Hazy hyperdensity in the posterior right lentiform nucleus with increased density throughout the right insula and right anterior lateral temporal lobe. This likely represents contrast staining within previous areas of loss of lara- white interface. Hemorrhagic transformation is unlikely. 2. No new loss of lara-white differentiation. 3. Unchanged patchy supratentorial white matter hypodensities. Approved by Miesha Maldonado M.D. on 07/01/2018 3:25 PM By my electronic signature, I attest that I have personally reviewed the images for this examination and formulated the interpretations and opinions expressed in this report Finalized by TALIA BOSTON M.D. on 07/01/2018 4:02 PM. Dictated by Miesha Maldonado M.D. on 07/01/2018 2:56 PM. Performing Organization Address City/State/Zipcode Phone Number [facility] RAD RESULTS * 2-D + DOPPLER ECHOCARDIOGRAM (07/01/2018 2:08 PM) IVS 0.88 0.6 - 1.0 cm OTHER OUTSIDE LAB LVIDD 4.44 4.2 - 5.8 cm OTHER OUTSIDE LAB LVIDS 2.55 2.5 - 4.0 cm OTHER OUTSIDE LAB PW 0.80 0.6 - 1.0 cm OTHER OUTSIDE LAB TDI e' 0.09 m/s OTHER OUTSIDE LAB LVOT peak milton 0.79 m/s OTHER OUTSIDE LAB LA size 3.50 3.0 - 4.0 cm OTHER OUTSIDE LAB and a peak gradient of 8.01 mmHg OTHER OUTSIDE LAB AV peak velocity 1.42 m/s OTHER OUTSIDE LAB MV Peak A Milton 0.71 m/s OTHER OUTSIDE LAB MV Peak E [place] PW 0.96 m/s OTHER OUTSIDE LAB Right Heart Systolic 0.75 >1.7 cm OTHER OUTSIDE LAB Mmode TAPSE Sinus 3.20 3.1 - 3.7 cm OTHER OUTSIDE LAB FS 42.57 28 - 44 % OTHER OUTSIDE LAB EF 72.37 % OTHER OUTSIDE LAB AV index (burns paiute) 0.56 OTHER OUTSIDE LAB E/A ratio 1.35 OTHER OUTSIDE LAB E/E' ratio 10.67 OTHER OUTSIDE LAB CV ECHO PV TRANSPORTATION DESIGN ENGINEER Yasir RN OTHER OUTSIDE LAB LV mass 118.49 96 - 200 g OTHER OUTSIDE LAB RWT 0.36 <=0.42 OTHER OUTSIDE LAB TV rest pulmonary artery 22 mmHg OTHER OUTSIDE LAB pressure Right Heart Systolic TDI 0.110 m/s OTHER OUTSIDE LAB S' Cardiology Ultrasound Siemens [id number] OTHER OUTSIDE LAB Machine ECHO EF 60 % OTHER OUTSIDE LAB Narrative Performed At OTHER OUTSIDE LAB Chamber sizes and wall thickness are normal Right ventricular function is normal Normal left ventricular systolic function, with an ejection fraction estimated at 60% Normal diastolic function No hemodynamically significant valvular abnormalities Pulmonary artery pressure is estimated at 22 mmHg No previous study available for comparison Performing Organization Address [facility] Phone Number OTHER OUTSIDE LAB * BETA HYDROXYBUTYRATE (KETONES) (07/01/2018 12:50 PM) Beta Hydroxybutyrate 0.1 <0.3 MMOL/L MAIN LAB Comment: Beta hydroxybutyrate (BOHB) is the most abundant ketone (78%), followed by acetoacetate (20%) and acetone (2%).Measurement BOHB is recommended to assess ketones in DKA. Expected BOHB Results for DKA: Initial presentation high/increasing During treatment decreasing Resolved decreasing/normal Performing Organization Address [facility] Phone Number MAIN LAB [address] [place] [address] * LACTIC ACID (BG - RAPID LACTATE) (07/01/2018 12:50 PM) Lactic Acid,BG 1.5 0.5 - 2.0 MMOL/L MAIN LAB Specimen Blood Performing Organization Address [facility] Phone Number MAIN LAB [address] [place] [address] * LACTIC ACID(LACTATE) (07/01/2018 12:50 PM) Lactic Acid 1.5 0.5 - 2.0 MMOL/L [facility]IN [facility] Performing Organization Address [facility] Phone Number MAIN LAB [address] [place] [address] * HEMOGLOBIN A1C (07/01/2018 12:50 PM) Hemoglobin A1C 17.4 (H) 4.0 - 6.0 % [facility] MAIN [facility] Comment: The ADA recommends that most patients with type 1 and type 2 diabetes maintain an A1c level <7%. Specimen Blood Performing Organization Address City/State/Zipcode Phone Number [facility] [address] [place] [address] * LIPID PROFILE (07/01/2018 12:50 PM) Cholesterol 110 <200 MG/DL [facility] Triglycerides 124 <150 MG/DL [facility] HDL 42 >40 MG/DL [facility] LDL 44 <100 MG/DL [facility] VLDL 25 MG/DL [facility] Non HDL Cholesterol 68 MG/DL [facility] Comment: Calculated non-HDL Cholesterol (non-HDL-C) indirectly measures LDL-C, Lp(a), IDL-C, and VLDL-C.It is a surrogate marker for Apoprotein B.Goal should be less than 130 mg/dL. Specimen Blood Performing Organization Address City/State/Zipcode Phone Number [facility] [address] [place] [address] * IR ARTERIOGRAM NEURO (07/01/2018 12:29 PM) Impressions Performed At 1.Acute right M1 artery occlusion with a pre-intervention modified TICI [facility] RAD RESULTS score of 0. 2.Status post 3-D stent retriever/Penumbra aspiration thrombectomy, as described above, with complete recanalization of the right middle cerebral artery territory with minimal slower filling of distal right M4 branches. Groin Access:11:59 AM First Pass:12:15 PM mTICI 2C:12:20 PM I performed this procedure without the involvement of a resident or fellow. Finalized by LULU PERRY M.D. on 07/01/2018 1:32 PM. Dictated by LULU PERRY M.D. on 07/01/2018 1:22 PM. Narrative Performed At Acute Mechanical Thrombectomy [facility] RAD RESULTS Indication - Acute Ischemic Stroke Procedures Performed 1) Right middle cerebral artery stent retriever/aspiration thrombectomy. 2) Selective right internal carotid artery cerebral angiograms x 2. 3) Right common femoral artery angiogram. Referring Physician - Diego Gutierrez MD Neurointerventionalist:Lulu Perry MD I was personally responsible for the administration of moderate sedation services during the procedure performed and I confirm requirements described in CPT section on moderate sedation were followed, including the use of an independent trained observer who had no other duties during the procedure.The total supervised sedation time was 0 minutes.See nursing log for complete details.The drugs utilized were:Versed 0 mg and Fentanyl 25 mcg Contrast - 100 cc [id number] Total mGy - 421 Anesthesia:conscious sedation Consent -The procedure was performed under emergent medical necessity. Clinical History:Mr. Anthony is a 57-year-old male who had acute onset of left hemiplegia. CT angiography demonstrated a right M1 artery occlusion and CT perfusion demonstrated a large mismatch. Heis here for emergent endovascular thrombectomy. Description of Procedure The patient was brought to the angio suite and placed in supine position on the angio table.General anesthesia was administered with intubation.The right groin was prepped in a standard sterile fashion.A micropuncture needle kit was used to access the right common femoral artery at 11:59 AM. Following this, a 6 F 90 cm Neuron Max sheath was placed in the right common femoral artery, establishing arterial access. VA Technique Under fluoroscopic and roadmap guidance the sheath was advanced over a 5 Swazi 125 cm Vert catheter over a 180 cm 0.035 Fentress wire over the aortic arch and into the proximal right internal carotid artery.Images were obtained in biplane projections of the right anterior intracranial circulation. VA Interpretation The angiogram demonstrated abrupt occlusion of the right M1 artery. Significant retrograde filling of the right middle cerebral artery territory is seen via right anterior cerebral artery territory and right parieto-occipital pial collaterals. Pre-intervention modified TICI score was 0. Under fluoroscopic and roadmap guidance a Penumbra 0.068 catheter was advanced over a Velocity microcatheter over a Transcend 0.014 microwire into the distal right internal carotid artery.The microcatheter was advanced over the microwire into a right M2 artery. Penumbra 3D Separator/Aspiration (Trap Technique) #1 A Penumbra 3D stent retriever was advanced under fluoroscopic and roadmap guidance and deployed into the right M1-M2 artery junction. The aspiration catheter was hubbed at the face of the clot.Following this the stent retriever microcatheter was removed.Following this the 68 Penumbra catheter was attached to the aspiration tubing which was attached to the continuous aspiration tank and continuous aspiration was performed for approximately 1-2 minutes.Following this and under fluoroscopic guidance the Penumbra catheter and Trevo stent-retriever were slowly removed together, using the Trap technique, with continuous manual aspiration from the side-port of the sheath. Vigorous aspiration was performed through the sheath.A follow-up angiogram demonstrated complete recanalization of the right middle cerebral artery territory with minimal slower filling of distal right M4 branches. First pass time:12:15 PM The final modified TICI score is 2 cc. After reviewing the final images, a right common femoral artery angiogram was performed.The angiogram demonstrated the access site well above the bifurcation with no branching vessels arising from the site; therefore, hemostasis was achieved using an 8 Swazi Angioseal closure device followed by manual pressure for 5 minutes. The patient was transported to the NSICU in a stable hemodynamic condition. Complications - none immediate Procedure Note Interface, Radiant Results - 07/01/2018 1:45 PM CDT Acute Mechanical Thrombectomy Indication - Acute Ischemic Stroke Procedures Performed 1) Right middle cerebral artery stent retriever/aspiration thrombectomy. 2) Selective right internal carotid artery cerebral angiograms x 2. 3) Right common femoral artery angiogram. Referring Physician - Diego Gutierrez MD Neurointerventionalist: Lulu Perry MD I was personally responsible for the administration of moderate sedation services during the procedure performed and I confirm requirements described in CPT section on moderate sedation were followed, including the use of an independent trained observer who had no other duties during the procedure. The total supervised sedation time was 0 minutes. See nursing log for complete details. The drugs utilized were: Versed 0 mg and Fentanyl 25 mcg Contrast - 100 cc [id number] Total mGy - 421 Anesthesia: conscious sedation Consent - The procedure was performed under emergent medical necessity. Clinical History: Mr. Anthony is a 57-year-old male who had acute onset of left hemiplegia. CT angiography demonstrated a right M1 artery occlusion and CT perfusion demonstrated a large mismatch. He is here for emergent endovascular thrombectomy. Description of Procedure The patient was brought to the angio suite and placed in supine position on the angio table. General anesthesia was administered with intubation. The right groin was prepped in a standard sterile fashion. A micropuncture needle kit was used to access the right common femoral artery at 11:59 AM. Following this , a 6 F 90 cm Neuron Max sheath was placed in the right common femoral artery, establishing arterial access. VA Technique Under fluoroscopic and roadmap guidance the sheath was advanced over a 5 Swazi 125 cm Vert catheter over a 180 cm 0.035 Fentress wire over the aortic arch and into the proximal right internal carotid artery. Images were obtained in biplane projections of the right anterior intracranial circulation. VA Interpretation The angiogram demonstrated abrupt occlusion of the right M1 artery. Significant retrograde filling of the right middle cerebral artery territory is seen via right anterior cerebral artery territory and right parieto-occipital pial collaterals. Pre-intervention modified TICI score was 0. Under fluoroscopic and roadmap guidance a Penumbra 0.068 catheter was advanced over a Velocity microcatheter over a Transcend 0.014 microwire into the distal right internal carotid artery. The microcatheter was advanced over the microwire into a right M2 artery. Penumbra 3D Separator/Aspiration (Trap Technique) #1 A Penumbra 3D stent retriever was advanced under fluoroscopic and roadmap guidance and deployed into the right M1-M2 artery junction. The aspiration catheter was hubbed at the face of the clot. Following this the stent retriever microcatheter was removed. Following this the 68 Penumbra catheter was attached to the aspiration tubing which was attached to the continuous aspiration tank and continuous aspiration was performed for approximately 1-2 minutes. Following this and under fluoroscopic guidance the Penumbra catheter and Trevo stent-retriever were slowly removed together, using the Trap technique , with continuous manual aspiration from the side-port of the sheath. Vigorous aspiration was performed through the sheath. A follow-up angiogram demonstrated complete recanalization of the right middle cerebral artery territory with minimal slower filling of distal right M4 branches. First pass time: 12:15 PM The final modified TICI score is 2 cc. After reviewing the final images, a right common femoral artery angiogram was performed. The angiogram demonstrated the access site well above the bifurcation with no branching vessels arising from the site; therefore, hemostasis was achieved using an 8 Swazi Angioseal closure device followed by manual pressure for 5 minutes. The patient was transported to the NSICU in a stable hemodynamic condition. Complications - none immediate IMPRESSION 1. Acute right M1 artery occlusion with a pre-intervention modified TICI score of 0. 2. Status post 3-D stent retriever/Penumbra aspiration thrombectomy, as described above, with complete recanalization of the right middle cerebral artery territory with minimal slower filling of distal right M4 branches. Groin Access: 11:59 AM First Pass: 12:15 PM mTICI 2C: 12:20 PM I performed this procedure without the involvement of a resident or fellow. Finalized by LULU PERRY M.D. on 07/01/2018 1:32 PM. Dictated by LULU PERRY M.D. on 07/01/2018 1:22 PM. 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 2.Loss of lara-white differentiation in the right lateral temporal lobe, insula, and posterior lentiform nucleus. 3.Bilateral cavernous ICA atherosclerotic plaque resulting in moderate narrowing of the left ICA. CTA neck: 1.Mild atherosclerotic disease at the proximal internal carotid arteries without narrowing. Otherwise, widely patent extracranial carotid and vertebral arteries. 2.Bilateral pleural effusions and hazy airspace opacities. CT perfusion: Large perfusion mismatch within the majority of the peripheral right MCA vascular distribution with decreased cerebral blood volume within the right lateral temporal lobe, insula, and posterior lentiform nucleus suggesting smaller completed infarct. Findings were discussed with Dr. Zhong and stroke teamat 11:51 AM on 07/01/2018 by the resident hall director in consultation with TALIA BOSTON M.D.. Approved by Miesha Maldonado M.D. on 07/01/2018 12:14 PM By my electronic signature, I attest that I have personally reviewed the images for this examination and formulated the interpretations and opinions expressed in this report Finalized by TALIA BOSTON M.D. on 07/01/2018 12:15 PM. Dictated by Miesha Maldonado M.D. on 07/01/2018 11:39 AM. Narrative Performed At EXAM: CTA HEAD AND NECK, CT perfusion [facility] HISTORY: 57-year-old male, Stroke within 24 hours, left-sided weakness TECHNIQUE: Multiple contiguous axial images were obtained of the brain and neck following the administration of IV contrast. Precontrast axial images were also obtained of the brain. CTA maximum density projection images were obtained of the brain and neck with image post processing.CT perfusion images were also performed Comparison: No prior comparisons. FINDINGS: Dr. TALIA BOSTON M.D. has personally reviewed these images and formulated the interpretations and opinions expressed in this report. CTA head: Loss of lara-white differentiation in the right insula and right lateral temporal lobe. Patchy supratentorial white matter hypodensities slightly asymmetric in the right hemisphere. The ventricles and subarachnoid spaces are normal in size and configuration. No significant midline shift or mass effect. There is no evidence of acute intracranial hemorrhage. The basal cisterns are patent. The calvarium is intact. There is focal occlusion of the M1 segment of the right middle cerebral artery. There is faint opacification of the right distal M4 vessels. The left MCA and bilateral anterior cerebral arteries are patent. There is atherosclerotic calcification of the bilateral cavernous internal carotid arteries with probable moderate narrowing of the left-sided ICA. The bilateral vertebral, basilar, and bilateral posterior cerebral arteries are widely patent. CTA neck: The aortic arch vessel origins are widely patent. There is a common origin of the right brachiocephalic and left common carotid artery. The bilateral common carotid arteries are patent. There is mild atherosclerotic plaque at the origins of the bilateral internal carotid arteries without narrowing by NASCET criteria. The extracranial internal carotid arteries and vertebral arteries are widely patent. No aneurysm, AVM, or dissection is identified. The cervical soft tissues are unremarkable. The paranasal sinus and mastoid air cells are clear. There are bilateral pleural effusions and hazy airspace opacities. CT perfusion: There is increased mean transit time throughout the peripheral right MCA territory with loss of cerebral blood volume within the right lateral temporal lobe, insula, and posterior lentiform nucleus. Procedure Note Interface, Radiant Results - 07/01/2018 12:18 PM CDT EXAM: CTA HEAD AND NECK, CT perfusion HISTORY: 57-year-old male, Stroke within 24 hours, left-sided weakness TECHNIQUE: Multiple contiguous axial images were obtained of the brain and neck following the administration of IV contrast. Precontrast axial images were also obtained of the brain. CTA maximum density projection images were obtained of the brain and neck with image post processing. CT perfusion images were also performed Comparison: No prior comparisons. FINDINGS: Dr. TALIA BOSTON M.D. has personally reviewed these images and formulated the interpretations and opinions expressed in this report. CTA head: Loss of lara-white differentiation in the right insula and right lateral temporal lobe. Patchy supratentorial white matter hypodensities slightly asymmetric in the right hemisphere. The ventricles and subarachnoid spaces are normal in size and configuration. No significant midline shift or mass effect. There is no evidence of acute intracranial hemorrhage. The basal cisterns are patent. The calvarium is intact. There is focal occlusion of the M1 segment of the right middle cerebral artery. There is faint opacification of the right distal M4 vessels. The left MCA and bilateral anterior cerebral arteries are patent. There is atherosclerotic calcification of the bilateral cavernous internal carotid arteries with probable moderate narrowing of the left-sided ICA. The bilateral vertebral, basilar, and bilateral posterior cerebral arteries are widely patent. CTA neck: The aortic arch vessel origins are widely patent. There is a common origin of the right brachiocephalic and left common carotid artery. The bilateral common carotid arteries are patent. There is mild atherosclerotic plaque at the origins of the bilateral internal carotid arteries without narrowing by NASCET criteria. The extracranial internal carotid arteries and vertebral arteries are widely patent. No aneurysm, AVM, or dissection is identified. The cervical soft tissues are unremarkable. The paranasal sinus and mastoid air cells are clear. There are bilateral pleural effusions and hazy airspace opacities. CT perfusion: There is increased mean transit time throughout the peripheral right MCA territory with loss of cerebral blood volume within the right lateral temporal lobe, insula, and posterior lentiform nucleus. IMPRESSION CTA head: 1. 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 2. Loss of lara-white differentiation in the right lateral temporal lobe, insula, and posterior lentiform nucleus. 3. Bilateral cavernous ICA atherosclerotic plaque resulting in moderate narrowing of the left ICA. CTA neck: 1. Mild atherosclerotic disease at the proximal internal carotid arteries without narrowing. Otherwise, widely patent extracranial carotid and vertebral arteries. 2. Bilateral pleural effusions and hazy airspace opacities. CT perfusion: Large perfusion mismatch within the majority of the peripheral right MCA vascular distribution with decreased cerebral blood volume within the right lateral temporal lobe, insula, and posterior lentiform nucleus suggesting smaller completed infarct. Findings were discussed with Dr. Zhong and stroke team at 11:51 AM on 07/01 by the resident hall director in consultation with TALIA BOSTON M.D.. Approved by Miesha Maldonado M.D. on 07/01/2018 12:14 PM By my electronic signature, I attest that I have personally reviewed the images for this examination and formulated the interpretations and opinions expressed in this report Finalized by TALIA BOSTON M.D. on 07/01/2018 12:15 PM. Dictated by Miesha Maldonado M.D. on 07/01/2018 11:39 AM. 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 2.Loss of lara-white differentiation in the right lateral temporal lobe, insula, and posterior lentiform nucleus. 3.Bilateral cavernous ICA atherosclerotic plaque resulting in moderate narrowing of the left ICA. CTA neck: 1.Mild atherosclerotic disease at the proximal internal carotid arteries without narrowing. Otherwise, widely patent extracranial carotid and vertebral arteries. 2.Bilateral pleural effusions and hazy airspace opacities. CT perfusion: Large perfusion mismatch within the majority of the peripheral right MCA vascular distribution with decreased cerebral blood volume within the right lateral temporal lobe, insula, and posterior lentiform nucleus suggesting smaller completed infarct. Findings were discussed with Dr. Zhong and stroke teamat 11:51 AM on 07/01/2018 by the resident hall director in consultation with TALIA BOSTON M.D.. Approved by Miesha Maldonado M.D. on 07/01/2018 12:14 PM By my electronic signature, I attest that I have personally reviewed the images for this examination and formulated the interpretations and opinions expressed in this report Finalized by TALIA BOSTON M.D. on 07/01/2018 12:15 PM. Dictated by Miesha Maldonado M.D. on 07/01/2018 11:39 AM. Narrative Performed At EXAM: CTA HEAD AND NECK, CT perfusion [facility] HISTORY: 57-year-old male, Stroke within 24 hours, left-sided weakness TECHNIQUE: Multiple contiguous axial images were obtained of the brain and neck following the administration of IV contrast. Precontrast axial images were also obtained of the brain. CTA maximum density projection images were obtained of the brain and neck with image post processing.CT perfusion images were also performed Comparison: No prior comparisons. FINDINGS: Dr. TALIA BOSTON M.D. has personally reviewed these images and formulated the interpretations and opinions expressed in this report. CTA head: Loss of lara-white differentiation in the right insula and right lateral temporal lobe. Patchy supratentorial white matter hypodensities slightly asymmetric in the right hemisphere. The ventricles and subarachnoid spaces are normal in size and configuration. No significant midline shift or mass effect. There is no evidence of acute intracranial hemorrhage. The basal cisterns are patent. The calvarium is intact. There is focal occlusion of the M1 segment of the right middle cerebral artery. There is faint opacification of the right distal M4 vessels. The left MCA and bilateral anterior cerebral arteries are patent. There is atherosclerotic calcification of the bilateral cavernous internal carotid arteries with probable moderate narrowing of the left-sided ICA. The bilateral vertebral, basilar, and bilateral posterior cerebral arteries are widely patent. CTA neck: The aortic arch vessel origins are widely patent. There is a common origin of the right brachiocephalic and left common carotid artery. The bilateral common carotid arteries are patent. There is mild atherosclerotic plaque at the origins of the bilateral internal carotid arteries without narrowing by NASCET criteria. The extracranial internal carotid arteries and vertebral arteries are widely patent. No aneurysm, AVM, or dissection is identified. The cervical soft tissues are unremarkable. The paranasal sinus and mastoid air cells are clear. There are bilateral pleural effusions and hazy airspace opacities. CT perfusion: There is increased mean transit time throughout the peripheral right MCA territory with loss of cerebral blood volume within the right lateral temporal lobe, insula, and posterior lentiform nucleus. Procedure Note Interface, Radiant Results - 07/01/2018 12:18 PM CDT EXAM: CTA HEAD AND NECK, CT perfusion HISTORY: 57-year-old male, Stroke within 24 hours, left-sided weakness TECHNIQUE: Multiple contiguous axial images were obtained of the brain and neck following the administration of IV contrast. Precontrast axial images were also obtained of the brain. CTA maximum density projection images were obtained of the brain and neck with image post processing. CT perfusion images were also performed Comparison: No prior comparisons. FINDINGS: Dr. TALIA BOSTON M.D. has personally reviewed these images and formulated the interpretations and opinions expressed in this report. CTA head: Loss of lara-white differentiation in the right insula and right lateral temporal lobe. Patchy supratentorial white matter hypodensities slightly asymmetric in the right hemisphere. The ventricles and subarachnoid spaces are normal in size and configuration. No significant midline shift or mass effect. There is no evidence of acute intracranial hemorrhage. The basal cisterns are patent. The calvarium is intact. There is focal occlusion of the M1 segment of the right middle cerebral artery. There is faint opacification of the right distal M4 vessels. The left MCA and bilateral anterior cerebral arteries are patent. There is atherosclerotic calcification of the bilateral cavernous internal carotid arteries with probable moderate narrowing of the left-sided ICA. The bilateral vertebral, basilar, and bilateral posterior cerebral arteries are widely patent. CTA neck: The aortic arch vessel origins are widely patent. There is a common origin of the right brachiocephalic and left common carotid artery. The bilateral common carotid arteries are patent. There is mild atherosclerotic plaque at the origins of the bilateral internal carotid arteries without narrowing by NASCET criteria. The extracranial internal carotid arteries and vertebral arteries are widely patent. No aneurysm, AVM, or dissection is identified. The cervical soft tissues are unremarkable. The paranasal sinus and mastoid air cells are clear. There are bilateral pleural effusions and hazy airspace opacities. CT perfusion: There is increased mean transit time throughout the peripheral right MCA territory with loss of cerebral blood volume within the right lateral temporal lobe, insula, and posterior lentiform nucleus. IMPRESSION CTA head: 1. 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 2. Loss of lara-white differentiation in the right lateral temporal lobe, insula, and posterior lentiform nucleus. 3. Bilateral cavernous ICA atherosclerotic plaque resulting in moderate narrowing of the left ICA. CTA neck: 1. Mild atherosclerotic disease at the proximal internal carotid arteries without narrowing. Otherwise, widely patent extracranial carotid and vertebral arteries. 2. Bilateral pleural effusions and hazy airspace opacities. CT perfusion: Large perfusion mismatch within the majority of the peripheral right MCA vascular distribution with decreased cerebral blood volume within the right lateral temporal lobe, insula, and posterior lentiform nucleus suggesting smaller completed infarct. Findings were discussed with Dr. Zhong and stroke team at 11:51 AM on 07/01 by the resident hall director in consultation with TALIA BOSTON M.D.. Approved by Miesha Maldonado M.D. on 07/01/2018 12:14 PM By my electronic signature, I attest that I have personally reviewed the images for this examination and formulated the interpretations and opinions expressed in this report Finalized by TALIA BOSTON M.D. on 07/01/2018 12:15 PM. Dictated by Miesha Maldonado M.D. on 07/01/2018 11:39 AM. 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 2.Loss of lara-white differentiation in the right lateral temporal lobe, insula, and posterior lentiform nucleus. 3.Bilateral cavernous ICA atherosclerotic plaque resulting in moderate narrowing of the left ICA. CTA neck: 1.Mild atherosclerotic disease at the proximal internal carotid arteries without narrowing. Otherwise, widely patent extracranial carotid and vertebral arteries. 2.Bilateral pleural effusions and hazy airspace opacities. CT perfusion: Large perfusion mismatch within the majority of the peripheral right MCA vascular distribution with decreased cerebral blood volume within the right lateral temporal lobe, insula, and posterior lentiform nucleus suggesting smaller completed infarct. Findings were discussed with Dr. Zhong and stroke teamat 11:51 AM on 07/01/2018 by the resident hall director in consultation with TALIA BOSTON M.D.. Approved by Miesha Maldonado M.D. on 07/01/2018 12:14 PM By my electronic signature, I attest that I have personally reviewed the images for this examination and formulated the interpretations and opinions expressed in this report Finalized by TALIA BOSTON M.D. on 07/01/2018 12:15 PM. Dictated by Miesha Maldonado M.D. on 07/01/2018 11:39 AM. Narrative Performed At EXAM: CTA HEAD AND NECK, CT perfusion [facility] HISTORY: 57-year-old male, Stroke within 24 hours, left-sided weakness TECHNIQUE: Multiple contiguous axial images were obtained of the brain and neck following the administration of IV contrast. Precontrast axial images were also obtained of the brain. CTA maximum density projection images were obtained of the brain and neck with image post processing.CT perfusion images were also performed Comparison: No prior comparisons. FINDINGS: Dr. TALIA BOSTON M.D. has personally reviewed these images and formulated the interpretations and opinions expressed in this report. CTA head: Loss of lara-white differentiation in the right insula and right lateral temporal lobe. Patchy supratentorial white matter hypodensities slightly asymmetric in the right hemisphere. The ventricles and subarachnoid spaces are normal in size and configuration. No significant midline shift or mass effect. There is no evidence of acute intracranial hemorrhage. The basal cisterns are patent. The calvarium is intact. There is focal occlusion of the M1 segment of the right middle cerebral artery. There is faint opacification of the right distal M4 vessels. The left MCA and bilateral anterior cerebral arteries are patent. There is atherosclerotic calcification of the bilateral cavernous internal carotid arteries with probable moderate narrowing of the left-sided ICA. The bilateral vertebral, basilar, and bilateral posterior cerebral arteries are widely patent. CTA neck: The aortic arch vessel origins are widely patent. There is a common origin of the right brachiocephalic and left common carotid artery. The bilateral common carotid arteries are patent. There is mild atherosclerotic plaque at the origins of the bilateral internal carotid arteries without narrowing by NASCET criteria. The extracranial internal carotid arteries and vertebral arteries are widely patent. No aneurysm, AVM, or dissection is identified. The cervical soft tissues are unremarkable. The paranasal sinus and mastoid air cells are clear. There are bilateral pleural effusions and hazy airspace opacities. CT perfusion: There is increased mean transit time throughout the peripheral right MCA territory with loss of cerebral blood volume within the right lateral temporal lobe, insula, and posterior lentiform nucleus. Procedure Note Interface, Radiant Results - 07/01/2018 12:18 PM CDT EXAM: CTA HEAD AND NECK, CT perfusion HISTORY: 57-year-old male, Stroke within 24 hours, left-sided weakness TECHNIQUE: Multiple contiguous axial images were obtained of the brain and neck following the administration of IV contrast. Precontrast axial images were also obtained of the brain. CTA maximum density projection images were obtained of the brain and neck with image post processing. CT perfusion images were also performed Comparison: No prior comparisons. FINDINGS: Dr. TALIA BOSTON M.D. has personally reviewed these images and formulated the interpretations and opinions expressed in this report. CTA head: Loss of lara-white differentiation in the right insula and right lateral temporal lobe. Patchy supratentorial white matter hypodensities slightly asymmetric in the right hemisphere. The ventricles and subarachnoid spaces are normal in size and configuration. No significant midline shift or mass effect. There is no evidence of acute intracranial hemorrhage. The basal cisterns are patent. The calvarium is intact. There is focal occlusion of the M1 segment of the right middle cerebral artery. There is faint opacification of the right distal M4 vessels. The left MCA and bilateral anterior cerebral arteries are patent. There is atherosclerotic calcification of the bilateral cavernous internal carotid arteries with probable moderate narrowing of the left-sided ICA. The bilateral vertebral, basilar, and bilateral posterior cerebral arteries are widely patent. CTA neck: The aortic arch vessel origins are widely patent. There is a common origin of the right brachiocephalic and left common carotid artery. The bilateral common carotid arteries are patent. There is mild atherosclerotic plaque at the origins of the bilateral internal carotid arteries without narrowing by NASCET criteria. The extracranial internal carotid arteries and vertebral arteries are widely patent. No aneurysm, AVM, or dissection is identified. The cervical soft tissues are unremarkable. The paranasal sinus and mastoid air cells are clear. There are bilateral pleural effusions and hazy airspace opacities. CT perfusion: There is increased mean transit time throughout the peripheral right MCA territory with loss of cerebral blood volume within the right lateral temporal lobe, insula, and posterior lentiform nucleus. IMPRESSION CTA head: 1. 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 2. Loss of lara-white differentiation in the right lateral temporal lobe, insula, and posterior lentiform nucleus. 3. Bilateral cavernous ICA atherosclerotic plaque resulting in moderate narrowing of the left ICA. CTA neck: 1. Mild atherosclerotic disease at the proximal internal carotid arteries without narrowing. Otherwise, widely patent extracranial carotid and vertebral arteries. 2. Bilateral pleural effusions and hazy airspace opacities. CT perfusion: Large perfusion mismatch within the majority of the peripheral right MCA vascular distribution with decreased cerebral blood volume within the right lateral temporal lobe, insula, and posterior lentiform nucleus suggesting smaller completed infarct. Findings were discussed with Dr. Zhong and stroke team at 11:51 AM on 07/01 by the resident hall director in consultation with TALIA BOSTON M.D.. Approved by Miesha Maldonado M.D. on 07/01/2018 12:14 PM By my electronic signature, I attest that I have personally reviewed the images for this examination and formulated the interpretations and opinions expressed in this report Finalized by TALIA BOSTON M.D. on 07/01/2018 12:15 PM. Dictated by Miesha Maldonado M.D. on 07/01/2018 11:39 AM. Performing Organization Address City/State/Zipcode Phone Number [id number] RESULTS from Last 3 Months
--- OUTSIDE RECORDS SUMMARY | 2018-07-11 01:56 | XMS REPORT | Encounter Summary ---
Author Author [place] [facility] [place] Address Unknown Phone Unavailable Care Team Providers Care Stock Associate Name Role Phone Damien Caceres MD Unavailable Melo Adame MD Unavailable Unavailable Lulu Ozuna NP PCP Hilary Davenport RN Unavailable Unavailable Reason for Referral * Consult, Test & Treat (Routine) Status Reason Specialty Diagnoses / Referred By Referred To Procedures Contact Contact No Auth Needed Specialty Gastroenterology Diagnoses Keyshawn Quiñones [facility] Gastrointestinal J, Ortho and Medical Required hemorrhage with [address] [place], [place] [id number] Phone: Fax: Reason for Visit * Auth/Cert Status Reason Specialty Diagnoses / Referred By Referred To Procedures Contact Contact Diagnoses Stroke (HCC) Stroke Encounter Details Date Type Department Care Team Description 07/01/2018 Hospital [facility]6 Diego Gutierrez MD Stroke (HCC) - Encounter [id number] 07/09/2018 [place] [address] [place] [address] [phone] Shanna Rocha MD [address] [place] [address] [phone] Veronica Buchanan MD [address] [place] [address] Keyshawn Hinton MD [address] [place], [place] [id number] Social History Tobacco Use Types Packs/Day Years Used Date Former Smoker Cigars 2 20 Quit: 10/20/2011 Smokeless Tobacco: Never Used Alcohol Use Drinks/Week oz/Week Comments No Sex Assigned at Date Recorded Not on file as of this encounter Last Filed Vital Signs Vital Sign Reading [...] Mass Index 25.48 07/01/2018 2:45 PM CDT in this encounter Functional Status Functional Status Response Date of Assessment Does the patient have a hearing impairment: No 07/03/2018 as of this encounter Discharge Instructions * Discharge Instr - Appointments - James Shook DO - 07/09/2018 12:11 PM CDT Please follow up with your PCP for repeat labs, monitoring your blood pressure, and monitoring your blood glucose Please follow up with the assistant city attorney at [facility] for follow up visit. Please follow up with neurology clinic for follow up of your stroke. in this encounter Medications at Time of Discharge Medication Sig. Disp. Refills Start Date End Date amLODIPine (NORVASC) 5 mg Take two tablets by mouth 07/09/2018 tablet daily. aspirin 81 mg chewable Chew one tablet by mouth 07/09/2018 tablet daily. Take with food. atorvastatin (LIPITOR) 40 Take one tablet by mouth 07/09/2018 mg tablet at bedtime daily. insulin aspart U-100 Inject four Units under 45 mL 3 07/09/2018 (NOVOLOG FLEXPEN) 100 the skin three times unit/mL injection PEN daily with meals. insulin glargine (LANTUS Inject twenty Units under 45 mL 3 07/10/2018 SOLOSTAR, BASAGLAR) 100 the skin daily. unit/mL (3 mL) injection PEN lisinopril (PRINIVIL, Take one tablet by mouth 07/09/2018 ZESTRIL) 40 mg tablet daily. melatonin 5 mg tab Take one tablet by mouth 07/09/2018 at bedtime daily. metoprolol tartrate Take one tablet by mouth 180 tablet 3 07/09/2018 (LOPRESSOR) 25 mg tablet twice daily. nortriptyline (PAMELOR) Take one capsule by mouth 07/09/2018 10 mg capsule at bedtime daily. QUEtiapine (SEROQUEL) 25 Take one tablet by mouth 07/09/2018 mg tablet twice daily. as of this encounter Progress Notes * Melo Leonardo RN - 07/09/2018 2:57 PM CDT [phone] and gave report to Perla GOODMAN to receive patient. Informed her that patient to transport at 13:00. By 15:00 no transport arrived, phoned facility above and it was reported that ride was on the way. FSBS=69 checked prior to transport. Reported to director special education for Neurology, juice x 2 given FSBS rechecked=87. Patient left unit via wheelchair and tow driver who was given chart for transport. Patient alert and at baseline orientation at time of discharge. Patient's spouse left with patient and took all personal possessions. * Gerard Salazar MD - 07/09/2018 2:11 PM CDT Formatting of this note may be different from the original. General Progress Note Name: Valdez Anthony Today's Date: 07/09/2018 Admission Date: 07/01/2018 LOS: 8 days Assessment/Plan: Principal Problem: Stroke (HCC) Active Problems: HTN (hypertension) Diabetes (HCC) Anemia Agitation 57 y.o. male history of having diabetes mellitus, hypertension, new diagnosis of having atrial fibrillation and also a right MCA stroke. ongoing anemia issues long standing with recent EGD with possible polyp with s/p clip placement. 1. Concern for upper GI bleeding with possible melena. 2. Acute blood loss anemia long standing. 3. Anticoagulation status. 4. MCA stroke. 5. HTN 6. Atrial fibrillation. EGD superificial erosion in the esophagus. erythema in the body. Normal duodenum. Colonoscopy polyps removed and poor prep. repeat in 1 year. Recommendations: - Recommend PPI once daily x 6-8 weeks. - Recommend repeat colonoscopy in 1 year. Thank you for allowing us to participate in the care of the patient, we will sign off please call with questions. Gerard Salazar MD GI staff Subjective Valdez Anthony is a 57 y.o. male. Patient no acute events overnight. no bleeding issues. Medications Scheduled Meds: amLODIPine (NORVASC) tablet 10 mg 10 mg Oral QDAY aspirin chewable tablet 81 mg 81 mg Oral QDAY atorvastatin (LIPITOR) tablet 40 mg 40 mg Oral QHS heparin (porcine) PF syringe 5,000 Units 5,000 Units Subcutaneous Q8H insulin aspart U-100 (NOVOLOG FLEXPEN) injection PEN 0-7 Units 0-7 Units Subcutaneous ACHS insulin aspart U-100 (NOVOLOG FLEXPEN) injection PEN 4 Units 4 Units Subcutaneous TID w/ meals insulin glargine (LANTUS SOLOSTAR, BASAGLAR) injection PEN 20 Units 20 Units Subcutaneous QDAY lisinopril (PRINIVIL; ZESTRIL) tablet 40 mg 40 mg Oral QDAY melatonin tablet 5 mg 5 mg Oral QHS metoprolol tartrate (LOPRESSOR) tablet 12.5 mg 12.5 mg Oral ONCE metoprolol tartrate (LOPRESSOR) tablet 25 mg 25 mg Oral BID nortriptyline (PAMELOR) capsule 10 mg 10 mg Oral QHS polyethylene glycol 3350 (MIRALAX) packet 17 g 1 packet Oral QDAY QUEtiapine (SEROQUEL) tablet 25 mg 25 mg Oral BID senna/docusate (SENOKOT-S) solution 10 mL 10 mL Oral BID Continuous Infusions: PRN and Respiratory Meds:acetaminophen Q6H PRN, bisacodyl QDAY PRN Objective: Vital Signs: Last Filed Vital Signs: 24 Hour Range BP: 128/51 (07/09 1303) Temp: 36.7 C (98.1 F) (07/09 1303) Pulse: 70 (07/09 1303) Respirations: 18 PER MINUTE (07/09 1303) SpO2: 97 % (07/09 130) O2 Delivery: None (Room Air) (07/09 0908) SpO2 Pulse: 70 (07/09 1303) BP: (112-171)/(51-73) Temp: [36.3 C (97.3 F)-37.5 C (99.5 F)] Pulse: [70-90] Respirations: [16 PER MINUTE-19 PER MINUTE] SpO2: [96 %-100 %] O2 Delivery: None (Room Air) Intensity Pain Scale (Self Report): Asleep (07/09/18 0400) Vitals: 07/01/18 1445 Weight: 71.6 kg (157 lb 13.6 oz) Intake/Output Summary: (Last 24 hours) Intake/Output Summary (Last 24 hours) at 07/09/18 1412 Last data filed at 07/09/18 0315 Gross per 24 hour Intake 0 ml Output 2000 ml Net -2000 ml Stool Occurrence: 1 Physical Exam General: lying in bed, in no acute distress. Alert and awake. ENT: Clean moist mouth. No ulcers noted. Neck: Supple. No lymphadenopathy noted. No masses noted. No thyromegaly present. Cardiac: S1, S2 heard. Lungs: decreased air entry to the bases Abdomen: Soft, nontender. No masses found. No hepatosplenomegaly present. Extremities: Peripheral pulses intact and warm. No ulcers noted. No edema. Skin: No rashes. No bruising noted. Lab Review 24-hour labs: Results for orders placed or performed during the hospital encounter of (from the past 24 hour(s)) URINALYSIS DIPSTICK REFLEX TO CULTURE Collection Time: 07/08/18 4:09 PM Result Value Ref Range Color,UA STRAW Turbidity,UA CLEAR CLEAR-CLEAR Specific [place]-Urine 1.005 1.003 - 1.035 pH,UA 8.0 5.0 - 8.0 Protein,UA NEG NEG-NEG Glucose,UA NEG NEG-NEG Ketones,UA NEG NEG-NEG Bilirubin,UA NEG NEG-NEG Blood,UA 1+ (A) NEG-NEG Urobilinogen,UA NORMAL NORM-NORMAL Nitrite,UA NEG NEG-NEG Leukocytes,UA NEG NEG-NEG Urine Ascorbic Acid, UA NEG NEG-NEG URINALYSIS MICROSCOPIC REFLEX TO CULTURE Collection Time: 07/08/18 4:09 PM Result Value Ref Range WBCs,UA 0-2 0 - 2 /HPF RBCs,UA 0-2 0 - 3 /HPF Comment,UA Urine submitted for reflex culture if criteria are met:WBC>10, positive nitrite and/or >=1+ leukocyte esterase. If quantity is not sufficient, an addendum will follow. POC GLUCOSE Collection Time: 07/08/18 5:56 PM Result Value Ref Range Glucose, POC 129 (H) 70 - 100 MG/DL CULTURE-BLOOD W/SENSITIVITY Collection Time: 07/08/18 8:20 PM Result Value Ref Range Battery Name BLOOD CULTURE Specimen Description BLOOD LEFT ANTECUBITAL Special Requests NONE Culture NO GROWTH 1 DAY Report Status POC GLUCOSE Collection Time: 07/08/18 9:52 PM Result Value Ref Range Glucose, POC 96 70 - 100 MG/DL CULTURE-BLOOD W/SENSITIVITY Collection Time: 07/08/18 10:25 PM Result Value Ref Range Battery Name BLOOD CULTURE Specimen Description BLOOD LEFT HAND Special Requests NONE Culture NO GROWTH 1 DAY Report Status POC GLUCOSE Collection Time: 07/09/18 1:10 AM Result Value Ref Range Glucose, POC 80 70 - 100 MG/DL POC GLUCOSE Collection Time: 07/09/18 3:09 AM Result Value Ref Range Glucose, POC 151 (H) 70 - 100 MG/DL CBC AND DIFF Collection Time: 07/09/18 5:47 AM Result Value Ref Range White Blood Cells 15.4 (H) 4.5 - 11.0 K/UL RBC 2.96 (L) 4.4 - 5.5 M/UL Hemoglobin 8.9 (L) 13.5 - 16.5 GM/DL Hematocrit 26.7 (L) 40 - 50 % MCV 90.0 80 - 100 FL MCH 29.9 26 - 34 PG MCHC 33.2 32.0 - 36.0 G/DL RDW 14.3 11 - 15 % Platelet Count 459 (H) 150 - 400 K/UL MPV 8.2 7 - 11 FL Neutrophils 77 41 - 77 % Lymphocytes 14 (L) 24 - 44 % Monocytes 8 4 - 12 % Eosinophils 1 0 - 5 % Basophils 0 0 - 2 % Absolute Neutrophil Count 11.70 (H) 1.8 - 7.0 K/UL Absolute Lymph Count 2.10 1.0 - 4.8 K/UL Absolute Monocyte Count 1.30 (H) 0 - 0.80 K/UL Absolute Eosinophil Count 0.20 0 - 0.45 K/UL Absolute Basophil Count 0.00 0 - 0.20 K/UL COMPREHENSIVE METABOLIC PANEL Collection Time: 07/09/18 5:47 AM Result Value Ref Range Sodium 137 137 - 147 MMOL/L Potassium 3.7 3.5 - 5.1 MMOL/L Chloride 105 98 - 110 MMOL/L Glucose 118 (H) 70 - 100 MG/DL Blood Urea Nitrogen 5 (L) 7 - 25 MG/DL Creatinine 0.98 0.4 - 1.24 MG/DL Calcium 8.5 8.5 - 10.6 MG/DL Total Protein 5.8 (L) 6.0 - 8.0 G/DL Total Bilirubin 0.6 0.3 - 1.2 MG/DL Albumin 3.0 (L) 3.5 - 5.0 G/DL Alk Phosphatase 103 25 - 110 U/L AST (SGOT) 36 7 - 40 U/L CO2 23 21 - 30 MMOL/L ALT (SGPT) 21 7 - 56 U/L Anion Gap 9 3 - 12 eGFR Non >60 >60 mL/min eGFR >60 >60 mL/min POC GLUCOSE Collection Time: 07/09/18 8:35 AM Result Value Ref Range Glucose, POC 104 (H) 70 - 100 MG/DL POC GLUCOSE Collection Time: 07/09/18 11:40 AM Result Value Ref Range Glucose, POC 158 (H) 70 - 100 MG/DL POC GLUCOSE Collection Time: 07/09/18 1:49 PM Result Value Ref Range Glucose, POC 136 (H) 70 - 100 MG/DL Point of Care Testing (Last 24 hours) Glucose: (!) 118 (07/09/18 1654) POC Glucose (Download): (!) 136 (07/09/18 1343) Radiology and other Diagnostics Review: Pertinent radiology reviewed. Gerard Salazar MD Pager * Barbi Deluna MD - 07/09/2018 1:00 PM CDT Formatting of this note may be different from the original. General Progress Note Admission Date: 07/01/2018 LOS: 8 days Assessment/Plan: Principal Problem: Stroke (HCC) Active Problems: HTN (hypertension) Diabetes (HCC) Anemia Agitation Admission Date: 07/01/2018 Principal Problem: Stroke (HCC) Active Problems: HTN (hypertension) Diabetes (HCC) Reason for consult:patient admitted for stroke, also was in DKA, BG difficult to control Type: Co-management w/signed orders Assessment: DM type 2 DKA resolved -A1c 17.4 on 07/01/2018 uncontrolled -PATTERN WORKER regimen: levemir 40 units QHS, Novolog 20-25 units with meals , metformin 1000 mg bid -Hypoglycemic episodes on this regimen: none -Follows up with for diabetes management: endocrinology - current steroid use : none Complications of DM: CAD: No CVA: Yes this admit PVD: No Amputations: No Retinopathy: Yes Gastropathy: No Nephropathy: Yes Neuropathy: Yes on Lyrica Afib Ischemic stroke - R MCA stroke : underwent stent-retriever/aspiration Urosepsis Recommendation Type 2 diabetes: - Poorly controlled diabetes prior to admission. A1c 17 - Our goal is to avoid hypoglycemia and to prevent hyperglycemia during hospitalization. - Goal BS 100-140 fasting and 140-180 during the day. - Decrease lantus to 20 units daily - Decrease novolog 4 with meal, tid - Continue novolog LDCF - Patient will follow up with local endocrinology in [facility] Subjective Valdez Anthony is a 57 y.o. male. Pt had hypoglycemia yesterday while NPO but today has been eating very well. Discharge to SNF today. ROS: no chest pain, SOB, N&V. Medications Scheduled Meds: amLODIPine (NORVASC) tablet 10 mg 10 mg Oral QDAY aspirin chewable tablet 81 mg 81 mg Oral QDAY atorvastatin (LIPITOR) tablet 40 mg 40 mg Oral QHS heparin (porcine) PF syringe 5,000 Units 5,000 Units Subcutaneous Q8H insulin aspart U-100 (NOVOLOG FLEXPEN) injection PEN 0-7 Units 0-7 Units Subcutaneous ACHS insulin aspart U-100 (NOVOLOG FLEXPEN) injection PEN 4 Units 4 Units Subcutaneous TID w/ meals insulin glargine (LANTUS SOLOSTAR, BASAGLAR) injection PEN 20 Units 20 Units Subcutaneous QDAY lisinopril (PRINIVIL; ZESTRIL) tablet 40 mg 40 mg Oral QDAY melatonin tablet 5 mg 5 mg Oral QHS metoprolol tartrate (LOPRESSOR) tablet 12.5 mg 12.5 mg Oral ONCE metoprolol tartrate (LOPRESSOR) tablet 25 mg 25 mg Oral BID nortriptyline (PAMELOR) capsule 10 mg 10 mg Oral QHS polyethylene glycol 3350 (MIRALAX) packet 17 g 1 packet Oral QDAY QUEtiapine (SEROQUEL) tablet 25 mg 25 mg Oral BID senna/docusate (SENOKOT-S) solution 10 mL 10 mL Oral BID Continuous Infusions: PRN and Respiratory Meds:acetaminophen Q6H PRN, bisacodyl QDAY PRN Objective Vital Signs: Last Filed Vital Signs: 24 Hour Range BP: 171/73 (07/09 946) Temp: 37.5 C (99.5 F) (07/09 908) Pulse: 82 (07/09 946) Respirations: 19 PER MINUTE (07/09 946) SpO2: 96 % (07/09 946) O2 Delivery: None (Room Air) (07/09 908) SpO2 Pulse: 83 (07/09 946) BP: (96-171)/(54-97) Temp: [36.3 C (97.3 F)-37.5 C (99.5 F)] Pulse: [61-90] Respirations: [16 PER MINUTE-19 PER MINUTE] SpO2: [96 %-100 %] O2 Delivery: None (Room Air) Intensity Pain Scale (Self Report): Asleep (07/09/18 0400) Vitals: 07/01/18 1445 Weight: 71.6 kg (157 lb 13.6 oz) Intake/Output Summary: (Last 24 hours) Intake/Output Summary (Last 24 hours) at 07/09/18 1300 Last data filed at 07/09/18 0315 Gross per 24 hour Intake 0 ml Output 2000 ml Net -2000 ml Stool Occurrence: 1 Physical Exam General appearance:alert and oriented Lungs: breathing comfortably Extremities: extremities normal, atraumatic, no cyanosis or edema Lab Review 24-hour labs: Results for orders placed or performed during the hospital encounter of (from the past 24 hour(s)) POC GLUCOSE Collection Time: 07/08/18 1:21 PM Result Value Ref Range Glucose, POC 67 (L) 70 - 100 MG/DL POC GLUCOSE Collection Time: 07/08/18 1:57 PM Result Value Ref Range Glucose, POC 75 70 - 100 MG/DL URINALYSIS DIPSTICK REFLEX TO CULTURE Collection Time: 07/08/18 4:09 PM Result Value Ref Range Color,UA STRAW Turbidity,UA CLEAR CLEAR-CLEAR Specific [place]-Urine 1.005 1.003 - 1.035 pH,UA 8.0 5.0 - 8.0 Protein,UA NEG NEG-NEG Glucose,UA NEG NEG-NEG Ketones,UA NEG NEG-NEG Bilirubin,UA NEG NEG-NEG Blood,UA 1+ (A) NEG-NEG Urobilinogen,UA NORMAL NORM-NORMAL Nitrite,UA NEG NEG-NEG Leukocytes,UA NEG NEG-NEG Urine Ascorbic Acid, UA NEG NEG-NEG URINALYSIS MICROSCOPIC REFLEX TO CULTURE Collection Time: 07/08/18 4:09 PM Result Value Ref Range WBCs,UA 0-2 0 - 2 /HPF RBCs,UA 0-2 0 - 3 /HPF Comment,UA Urine submitted for reflex culture if criteria are met:WBC>10, positive nitrite and/or >=1+ leukocyte esterase. If quantity is not sufficient, an addendum will follow. POC GLUCOSE Collection Time: 07/08/18 5:56 PM Result Value Ref Range Glucose, POC 129 (H) 70 - 100 MG/DL CULTURE-BLOOD W/SENSITIVITY Collection Time: 07/08/18 8:20 PM Result Value Ref Range Battery Name BLOOD CULTURE Specimen Description BLOOD LEFT ANTECUBITAL Special Requests NONE Culture NO GROWTH 1 DAY Report Status POC GLUCOSE Collection Time: 07/08/18 9:52 PM Result Value Ref Range Glucose, POC 96 70 - 100 MG/DL CULTURE-BLOOD W/SENSITIVITY Collection Time: 07/08/18 10:25 PM Result Value Ref Range Battery Name BLOOD CULTURE Specimen Description BLOOD LEFT HAND Special Requests NONE Culture NO GROWTH 1 DAY Report Status POC GLUCOSE Collection Time: 07/09/18 1:10 AM Result Value Ref Range Glucose, POC 80 70 - 100 MG/DL POC GLUCOSE Collection Time: 07/09/18 3:09 AM Result Value Ref Range Glucose, POC 151 (H) 70 - 100 MG/DL CBC AND DIFF Collection Time: 07/09/18 5:47 AM Result Value Ref Range White Blood Cells 15.4 (H) 4.5 - 11.0 K/UL RBC 2.96 (L) 4.4 - 5.5 M/UL Hemoglobin 8.9 (L) 13.5 - 16.5 GM/DL Hematocrit 26.7 (L) 40 - 50 % MCV 90.0 80 - 100 FL MCH 29.9 26 - 34 PG MCHC 33.2 32.0 - 36.0 G/DL RDW 14.3 11 - 15 % Platelet Count 459 (H) 150 - 400 K/UL MPV 8.2 7 - 11 FL Neutrophils 77 41 - 77 % Lymphocytes 14 (L) 24 - 44 % Monocytes 8 4 - 12 % Eosinophils 1 0 - 5 % Basophils 0 0 - 2 % Absolute Neutrophil Count 11.70 (H) 1.8 - 7.0 K/UL Absolute Lymph Count 2.10 1.0 - 4.8 K/UL Absolute Monocyte Count 1.30 (H) 0 - 0.80 K/UL Absolute Eosinophil Count 0.20 0 - 0.45 K/UL Absolute Basophil Count 0.00 0 - 0.20 K/UL COMPREHENSIVE METABOLIC PANEL Collection Time: 07/09/18 5:47 AM Result Value Ref Range Sodium 137 137 - 147 MMOL/L Potassium 3.7 3.5 - 5.1 MMOL/L Chloride 105 98 - 110 MMOL/L Glucose 118 (H) 70 - 100 MG/DL Blood Urea Nitrogen 5 (L) 7 - 25 MG/DL Creatinine 0.98 0.4 - 1.24 MG/DL Calcium 8.5 8.5 - 10.6 MG/DL Total Protein 5.8 (L) 6.0 - 8.0 G/DL Total Bilirubin 0.6 0.3 - 1.2 MG/DL Albumin 3.0 (L) 3.5 - 5.0 G/DL Alk Phosphatase 103 25 - 110 U/L AST (SGOT) 36 7 - 40 U/L CO2 23 21 - 30 MMOL/L ALT (SGPT) 21 7 - 56 U/L Anion Gap 9 3 - 12 eGFR Non >60 >60 mL/min eGFR >60 >60 mL/min POC GLUCOSE Collection Time: 07/09/18 8:35 AM Result Value Ref Range Glucose, POC 104 (H) 70 - 100 MG/DL POC GLUCOSE Collection Time: 07/09/18 11:40 AM Result Value Ref Range Glucose, POC 158 (H) 70 - 100 MG/DL Point of Care Testing (Last 24 hours) Recent Labs 07/08/18 1321 07/08/18 1357 07/08/18 1756 07/08/18 2152 07/09/18 0110 07/09/18 0309 07/09/18 0835 07/09/18 1140 GLUPOC 67* 75 129* 96 80 151* 104* 158* Radiology and other Diagnostics Review: none Barbi Deluna MD P [id number] * Tata Daniels, RD - 07/09/2018 12:54 PM CDT CLINICAL NUTRITION Clinical Nutrition Follow-Up Summary NAME:Valdez Anthony :1960 AGE: 57 y.o. ADMISSION DATE: 07/01/2018 DAYS ADMITTED: LOS: 8 days Nutrition Assessment of Patient: Malnutrition Assessment: Does not meet criteria Current Oral Intake: Improving, Marginally Adequate Estimated Calorie Needs: 2906-8270 (25-28 kcal/kg desired wt) Estimated Protein Needs: 85-100 (1.2-1.4 g/kg desired wt) Oral Diet Order: Diabetic 4358-6134 Kcal/day (60 g Carb/meal, 30 g Carb/HS snack ), [place] Thick Liquids Comments: 57 y.o. male with new onset Atrial Fibrillation with RVR, HTN, HLD, T2DM, Diabetic Retinopathy, OD Blindness, Neovascular Glaucoma, Prostate Cancer s/p prostatectomy, Urinary Retention s/p suprapubic catheter that was admitted at [facility] for urosepsis, DKA, A fib with RVR requiring cardizem ggt that was transferred for concerns for stroke. Patient found to have a R M1 occlusion. He underwent endovascular thrombectomy which was successful, TICI 3. MRI with bilateral temporal lobe infarcts, R insular cortex, R insular cortex, infarcts and small areas of hemorrhagic conversion. Pt with Corpak placed 07/02 and EN of Isosource 1.5 started @ 20 ml/hr and tolerated up to ordered goal of 45 ml/hr by night of 07/02. Pt pulled Corpak 07/03 and underwent via video- swallow eval with ELECTRIC RELAY TESTER findings of moderate oropharyngeal dysphagia and baseline cognitive deficits. ELECTRIC RELAY TESTER working with pt and diet has advanced from nectar thick full liquids to 60g/meal consistent carb diet with nectar thick fluids. Per had 100% omelet for breakfast today (refused per RN) and sandwich ordered by for lunch. No current wt to assess; unable to actually see pt today as he was bundled in his blankets. Pt has orders for no sugar added [place] breakfast with nectar thick milk at breakfast and per RN throughout day as needed. Followed up with call center who says orders not printing to meal ticket. denies need for diet education Recommendation: Encourage good meal intakes at least 3 times per day with adequate protein source each meal on 60g/meal consistne carb diet. Offer no sugar added [place] Breakfast shakes made with nectar thick milk at breakfast and PRN. Intervention / Plan: Monitor po intake tolerance and adequacy monitor wt trends, labs, meds and GI status Nutrition Diagnosis: Altered GI function Etiology: swallowing and cognitive deficits Signs & Symptoms: ELECTRIC RELAY TESTER findings and nectar thick liquids with diabetic diet Goals: Patient to consume >75% of meals/supplements Time Frame: Within 72 Hours Status: Met Patient to consume >85% of meals/supplements Time Frame: Throughout Stay Tata Daniels, MS,RD, LD, [facility] *[id number] * James Shook, DO - 07/09/2018 12:04 PM CDT Formatting of this note may be different from the original. Neurology Progress Note Today's Date: 07/09/2018 Name: Valdez Anthony Admission Date: 07/01/2018 LOS: 8 days Assessment/Plan: Principal Problem: Stroke (HCC) Active Problems: HTN (hypertension) Diabetes (HCC) Anemia Agitation Mr. Caal a 57 y/oW M w/new onset AFib, HTN, HLD, T2DM, diabetic retinopathy, OD blindness, neovascular glaucoma, prostate cancer s/p prostatectomy who presents to [facility] as a transfer from [facility] for stroke. OSH course: Pt presented to OSH for fatigue, SOB. Found to have UTI, w/ concern for urosepsis, BG 600s -> placed on insulin gtt. Pt was admitted to ICU there, where he shortly developed afib w/ RVR and placed on cardizem/heparin gtt. Heparin gtt was then stopped while here because of concern for possible GI bleed w/ sudden drop in Hgb. EGD 06/29 showed s/p polypectomy, no active bleeding. Pt also developed urinary retention during admission there as well, where urology was consulted and suprapubic catheter was placed. Pt then suddenly was noted to have aphasia, L hemiparesis, and decreased LOC. LKN unknown. Did not received tPA given unclear window. Was transferred to [facility] for evaluation. Was given ativan 2mg enroute for agitation. NEICU/stroke course: NIHSS 34 here for dysarthria, aphasia, neglect, L hemiparesis w/ R sided weakness, partial visual deficit, decreased LOC. CTA showed R M1 occlusion, CTP w/ 50% volume mismatch. S/p EVT w/ TICI3. Developed post-procedural somnolence. Repeat CT head was done that showed R lentiform nucleus hemorrhage. MRI head showed b/l temporal lobe infarct, R insular cortex infarct, and small areas of hemorrhagic conversion. Was started on ASA in the ICU. Was placed on cardizem and insulin gtt. Endocrine consulted for insulin gtt management and pt was successfully transitioned to subQ insulin. Pt was also taken on cardizem gtt as well. Transitioned to floor status following stabilization. #R MCA infarct w/ b/l temporal lobe infarct, R insular cortex; hemorrhagic conversion - Etiology likely cardioembolic w/ AFib noted on OSH - BP goal BP <130/80 - 81mg ASA daily for antiplatelet - LDL 44, Hgb A1c 17.4 with goal <7.0 - Will hold on AC until 2 weeks after stroke -> 07/15 - Echocardiogram: 60% EF, LA size 3.5cm, no thrombus - ELECTRIC RELAY TESTER following -> recommend regular diet w/ nectar thick liquids - PT/OT following: recommend inpatient setting - Rehab Medicine: Disposition recommendation is pending -> needs to follow 2 step commands prior to recommending IPR >continue lisinopril 40, lipitor 40; increased norvasc 10 >DM management as below >Continue ASA for now; plan for AC as above >PT/OT/rehabfollowing; plan for SNF #Leukocytosis; downtrending - Elevated at 21 07/08 -> no fevers, VSS - Recently treated for urosepsis as below - WBC improving today w/o fevers, VSS -> low clinical suspicion for infectious process - Likely reactive to procedure > f/u w/ PCP for repeat labs to monitor #Acute blood loss anemia; resolved #Normocytic anemia #Anemia of chronic disease - Progressive decline in Hgb (9.8 on admission, 7.2 on 07/03) -> s/p 1 unit RBCs - Heme occult pending (hasn't had a bowel movement) - Iron studies w/ elevated ferritin, low Fe -> consistent w/ ACD - Pt has not reported any bleeding - Hgb stably ~9-10; however, did drop from 10.1 -> 8.9 07/06 - EGD 06/29 showed changes s/ps polypectomy, no reported active bleeding - GI consulted for procedure; in setting of anemia and h/o polyp removal, EGD/ colonscopy was performed that showed several polyps and erythema no bleed, polyps removed and sent for pathology >Will hold AC for now, plan to restart 2 weeks from stroke onset > will have pt follow up w/ GI outpt for pathology follow up #Urinary retention s/p suprapubic johnson -> placed by urology OSH prior to transfer here - Reportedly, pt pulled staple out overnight > Will touch base w/ urology, f/u UA above #Peripheral neuropathy - pt reporting significant RLE pain, start lidocaine gel and nortriptyline 10mg #DMII #Reportedly in DKA @ OSH - Off insulin gtt - a1c 17.4 - Endocrine consulted for management >Decrease 20U lantus QHS, increase 6U aspart TIDAC >pt to f/u w/ endo @ [facility] outpt basis -> goal BS 100-140 fasting and 140-180 during the day #AFib; rate controlled - AFib RVR at OSH - was on cardizem gtt there and was placed on cardizem gtt here in the ICU - Rate controlled currently, off gtt - Was on heparin gtt OSH, but this was stopped w/ concern for possible GI bleed above -> develop stroke and was transferred to [facility] - Was placed on PO cardizem >Will transition to lopressor 12.5 BID; d/c cardizem w/ norvasc above for BP control #Constipation > PRN bowel regimen, will given suppository for BM #Agitation; improved - seroquel 25mg BID PO #Urosepsis (resolved): - WBC count fluctuating, 14.6 07/07->possibly reactive - Blood cultures with negative growth - UA negative for UTI - Rocephin 07/01 - 07/05 Dispo: discharge today to [facility] @ 1300 Patient was seen and discussed with Dr. Quiñones. James Shook, PGY-2 Subjective: Valdez Anthony is a 57 y.o. male. Pt seen and examined at bedside this AM. Pt w/ o acute complaint, no overnight events reported. States that he is ready to leave today. Objective: Scheduled Meds: amLODIPine (NORVASC) tablet 10 mg 10 mg Oral QDAY aspirin chewable tablet 81 mg 81 mg Oral QDAY atorvastatin (LIPITOR) tablet 40 mg 40 mg Oral QHS heparin (porcine) PF syringe 5,000 Units 5,000 Units Subcutaneous Q8H insulin aspart U-100 (NOVOLOG FLEXPEN) injection PEN 0-7 Units 0-7 Units Subcutaneous ACHS insulin aspart U-100 (NOVOLOG FLEXPEN) injection PEN 4 Units 4 Units Subcutaneous TID w/ meals insulin glargine (LANTUS SOLOSTAR, BASAGLAR) injection PEN 20 Units 20 Units Subcutaneous QDAY lisinopril (PRINIVIL; ZESTRIL) tablet 40 mg 40 mg Oral QDAY melatonin tablet 5 mg 5 mg Oral QHS metoprolol tartrate (LOPRESSOR) tablet 12.5 mg 12.5 mg Oral BID nortriptyline (PAMELOR) capsule 10 mg 10 mg Oral QHS polyethylene glycol 3350 (MIRALAX) packet 17 g 1 packet Oral QDAY QUEtiapine (SEROQUEL) tablet 25 mg 25 mg Oral BID senna/docusate (SENOKOT-S) solution 10 mL 10 mL Oral BID Continuous Infusions: PRN and Respiratory Meds:acetaminophen Q6H PRN, bisacodyl QDAY PRN Vital Signs: Last Filed Vital Signs: 24 Hour Range BP: 171/73 (07/09 946) Temp: 37.5 C (99.5 F) (07/09 908) Pulse: 82 (07/09 946) Respirations: 19 PER MINUTE (07/09 946) SpO2: 96 % (07/09 946) O2 Delivery: None (Room Air) (07/09 908) SpO2 Pulse: 83 (07/09 946) BP: (96-171)/(54-97) Temp: [36.3 C (97.3 F)-37.5 C (99.5 F)] Pulse: [61-90] Respirations: [16 PER MINUTE-19 PER MINUTE] SpO2: [96 %-100 %] O2 Delivery: None (Room Air) Intensity Pain Scale (Self Report): Asleep Verbal Pain Description: Moderate Pain ICP Monitoring: Intake/Output Summary: (Last 24 hours) Intake/Output Summary (Last 24 hours) at 07/09/18 1204 Last data filed at 07/09/18 0315 Gross per 24 hour Intake 550 ml Output 2000 ml Net -1450 ml Physical Exam: General: NAD, pleasant, cooperative, sitting up in bed HEENT: normocephalic, atraumatic, sclera w/ mild injection OU Mental status: alert, awake, follows commands, answering questions appropriately but fixated on Chiefs, soda, and brother CN: EOMI OU, OD blindness, facial symmetry, tongue midline, good shoulder shrug b/l Motor: no fasiculations, 4+/5 LUE/LLE, 5/5 on the R side Sensation intact LT throughout Laboratory Review: 24-hour labs: Results for orders placed or performed during the hospital encounter of (from the past 24 hour(s)) POC GLUCOSE Collection Time: 07/08/18 1:21 PM Result Value Ref Range Glucose, POC 67 (L) 70 - 100 MG/DL POC GLUCOSE Collection Time: 07/08/18 1:57 PM Result Value Ref Range Glucose, POC 75 70 - 100 MG/DL URINALYSIS DIPSTICK REFLEX TO CULTURE Collection Time: 07/08/18 4:09 PM Result Value Ref Range Color,UA STRAW Turbidity,UA CLEAR CLEAR-CLEAR Specific [place]-Urine 1.005 1.003 - 1.035 pH,UA 8.0 5.0 - 8.0 Protein,UA NEG NEG-NEG Glucose,UA NEG NEG-NEG Ketones,UA NEG NEG-NEG Bilirubin,UA NEG NEG-NEG Blood,UA 1+ (A) NEG-NEG Urobilinogen,UA NORMAL NORM-NORMAL Nitrite,UA NEG NEG-NEG Leukocytes,UA NEG NEG-NEG Urine Ascorbic Acid, UA NEG NEG-NEG URINALYSIS MICROSCOPIC REFLEX TO CULTURE Collection Time: 07/08/18 4:09 PM Result Value Ref Range WBCs,UA 0-2 0 - 2 /HPF RBCs,UA 0-2 0 - 3 /HPF Comment,UA Urine submitted for reflex culture if criteria are met:WBC>10, positive nitrite and/or >=1+ leukocyte esterase. If quantity is not sufficient, an addendum will follow. POC GLUCOSE Collection Time: 07/08/18 5:56 PM Result Value Ref Range Glucose, POC 129 (H) 70 - 100 MG/DL CULTURE-BLOOD W/SENSITIVITY Collection Time: 07/08/18 8:20 PM Result Value Ref Range Battery Name BLOOD CULTURE Specimen Description BLOOD LEFT ANTECUBITAL Special Requests NONE Culture NO GROWTH 1 DAY Report Status POC GLUCOSE Collection Time: 07/08/18 9:52 PM Result Value Ref Range Glucose, POC 96 70 - 100 MG/DL CULTURE-BLOOD W/SENSITIVITY Collection Time: 07/08/18 10:25 PM Result Value Ref Range Battery Name BLOOD CULTURE Specimen Description BLOOD LEFT HAND Special Requests NONE Culture NO GROWTH 1 DAY Report Status POC GLUCOSE Collection Time: 07/09/18 1:10 AM Result Value Ref Range Glucose, POC 80 70 - 100 MG/DL POC GLUCOSE Collection Time: 07/09/18 3:09 AM Result Value Ref Range Glucose, POC 151 (H) 70 - 100 MG/DL CBC AND DIFF Collection Time: 07/09/18 5:47 AM Result Value Ref Range White Blood Cells 15.4 (H) 4.5 - 11.0 K/UL RBC 2.96 (L) 4.4 - 5.5 M/UL Hemoglobin 8.9 (L) 13.5 - 16.5 GM/DL Hematocrit 26.7 (L) 40 - 50 % MCV 90.0 80 - 100 FL MCH 29.9 26 - 34 PG MCHC 33.2 32.0 - 36.0 G/DL RDW 14.3 11 - 15 % Platelet Count 459 (H) 150 - 400 K/UL MPV 8.2 7 - 11 FL Neutrophils 77 41 - 77 % Lymphocytes 14 (L) 24 - 44 % Monocytes 8 4 - 12 % Eosinophils 1 0 - 5 % Basophils 0 0 - 2 % Absolute Neutrophil Count 11.70 (H) 1.8 - 7.0 K/UL Absolute Lymph Count 2.10 1.0 - 4.8 K/UL Absolute Monocyte Count 1.30 (H) 0 - 0.80 K/UL Absolute Eosinophil Count 0.20 0 - 0.45 K/UL Absolute Basophil Count 0.00 0 - 0.20 K/UL COMPREHENSIVE METABOLIC PANEL Collection Time: 07/09/18 5:47 AM Result Value Ref Range Sodium 137 137 - 147 MMOL/L Potassium 3.7 3.5 - 5.1 MMOL/L Chloride 105 98 - 110 MMOL/L Glucose 118 (H) 70 - 100 MG/DL Blood Urea Nitrogen 5 (L) 7 - 25 MG/DL Creatinine 0.98 0.4 - 1.24 MG/DL Calcium 8.5 8.5 - 10.6 MG/DL Total Protein 5.8 (L) 6.0 - 8.0 G/DL Total Bilirubin 0.6 0.3 - 1.2 MG/DL Albumin 3.0 (L) 3.5 - 5.0 G/DL Alk Phosphatase 103 25 - 110 U/L AST (SGOT) 36 7 - 40 U/L CO2 23 21 - 30 MMOL/L ALT (SGPT) 21 7 - 56 U/L Anion Gap 9 3 - 12 eGFR Non >60 >60 mL/min eGFR >60 >60 mL/min POC GLUCOSE Collection Time: 07/09/18 8:35 AM Result Value Ref Range Glucose, POC 104 (H) 70 - 100 MG/DL POC GLUCOSE Collection Time: 07/09/18 11:40 AM Result Value Ref Range Glucose, POC 158 (H) 70 - 100 MG/DL Point of Care Testing: (Last 24 hours): FSBS (Manual): 96 (07/08/18 4791) Glucose: (!) 118 (07/09/18 1354) POC Glucose (Download): (!) 158 (07/09/18 1140) Radiology and Other Diagnostics Review: Pertinent radiology reviewed. James Shook DO Pager Associated attestation - Keyshawn Quiñones MD - 07/09/2018 2:15 PM CDT Attending Addendum: I have personally interviewed and examined Valdez Anthony and reviewed the history, examination, impression, and plan of care as outlined by Dr. Shook. I agree with the assessment and plan as documented with the following addendum: Mr. Anthony feels well today. No new symptoms. Exam stable with dysarthria and L face/arm/leg weakness and sensory deficit. No fevers. BP elevated this am 160's-170's, improved most recently to 120/51. WBC downtrending to 15.4 from 21.7 yesterday. Hgb stable today. EGD shows superficial esophageal erosion and gastric erythema. Colonoscopy with several polyps found/removed. No current active bleeding. MRI brain with acute stroke in R MCA territory moderate size with smaller area of infarct in L temporal lobe. Some petechial hemorrhagic transformation in R MCA infarct bed. CTA head/neck with some narrowing of L intracranial ICA. LDL 44, A1c 17.4, TTE unremarkable. Etiology of stroke likely cardioembolic. - will plan on starting Eliquis 5 mg bid around 2 weeks from stroke onset due to moderate size/presence of HT, around 07/15/18 - for elevated BP, increased Lopressor with improvement - appreciate GI assistance for EGD/colonoscopy eval, will f/u as outpt - for new leukocytosis, completing infectious workup, currently asymptomatic and trending down; likely stress reaction - continue ASA until Eliquis started, Atorvastatin 40 - appreciate endocrine assistance with uncontrolled diabetes - d/c to inpatient facility today Keyshawn Quiñones MD * Melo Leonardo, MAXINE - 07/09/2018 10:20 AM CDT During bedside safety check patient found reversed in bed with head toward the foot of bed with right leg bent and traction observed on SP catheter. Patient c/ o pain at SP site. Patient's Stat Loc was on right leg. This was removed per SOP. And replaced with a stat loc on patient's right hip with no traction observed with leg flexion or extension. Patient denied pain at SP site with reassessment during pain medication administration. * Chica Kim, MAXINE - 07/08/2018 8:22 PM CDT Two sets of blood cultures drawn by IV therapy. Tubes labeled at bedside. Pt tolerated well. * Cuong Sage - 07/08/2018 5:33 PM CDT RN x2 attempted to collect blood culture specimens, Lab troubleshoot consulted and informed RN that they will put him on the list but that they "will not be up there for quite a while", will continue to monitor. * Mari Mullen RN - 07/08/2018 5:08 PM CDT Consult received to draw blood cultures. Please consult the lab to draw the specimen, if they are unable, please consult IV team and note in the consult, "lab unable to obtain the specimen". RN advised. * James Shook DO - 07/08/2018 3:49 PM CDT Formatting of this note may be different from the original. Neurology Progress Note Today's Date: 07/08/2018 Name: Valdez Anthony Admission Date: 07/01/2018 LOS: 7 days Assessment/Plan: Principal Problem: Stroke (HCC) Active Problems: HTN (hypertension) Diabetes (HCC) Anemia Agitation Mr. Caal a 57 y/oW M w/new onset AFib, HTN, HLD, T2DM, diabetic retinopathy, OD blindness, neovascular glaucoma, prostate cancer s/p prostatectomy who presents to [facility] as a transfer from [facility] for stroke. OSH course: Pt presented to OSH for fatigue, SOB. Found to have UTI, w/ concern for urosepsis, BG 600s -> placed on insulin gtt. Pt was admitted to ICU there, where he shortly developed afib w/ RVR and placed on cardizem/heparin gtt. Heparin gtt was then stopped while here because of concern for possible GI bleed w/ sudden drop in Hgb. EGD 06/29 showed s/p polypectomy, no active bleeding. Pt also developed urinary retention during admission there as well, where urology was consulted and suprapubic catheter was placed. Pt then suddenly was noted to have aphasia, L hemiparesis, and decreased LOC. LKN unknown. Did not received tPA given unclear window. Was transferred to [facility] for evaluation. Was given ativan 2mg enroute for agitation. NEICU/stroke course: NIHSS 34 here for dysarthria, aphasia, neglect, L hemiparesis w/ R sided weakness, partial visual deficit, decreased LOC. CTA showed R M1 occlusion, CTP w/ 50% volume mismatch. S/p EVT w/ TICI3. Developed post-procedural somnolence. Repeat CT head was done that showed R lentiform nucleus hemorrhage. MRI head showed b/l temporal lobe infarct, R insular cortex infarct, and small areas of hemorrhagic conversion. Was started on ASA in the ICU. Was placed on cardizem and insulin gtt. Endocrine consulted for insulin gtt management and pt was successfully transitioned to subQ insulin. Pt was also taken on cardizem gtt as well. Transitioned to floor status following stabilization. #R MCA infarct w/ b/l temporal lobe infarct, R insular cortex; hemorrhagic conversion - Etiology likely cardioembolic w/ AFib noted on OSH - BP goal BP <130/80 - 81mg ASA daily for antiplatelet - LDL 44, Hgb A1c 17.4 with goal <7.0 - Will hold on AC until 2 weeks after stroke -> 07/15 - Echocardiogram: 60% EF, LA size 3.5cm, no thrombus - ELECTRIC RELAY TESTER following -> recommend regular diet w/ nectar thick liquids - PT/OT following: recommend inpatient setting - Rehab Medicine: Disposition recommendation is pending -> needs to follow 2 step commands prior to recommending IPR >continue lisinopril 40, lipitor 40; increased norvasc 10 >DM management as below >Continue ASA for now; plan for AC as above >PT/OT/rehab following; plan for SNF #Leukocytosis - Elevated at 21 07/08 -> no fevers, VSS - Recently treated for urosepsis as below > f/u infectious work up: BCx x2, UA, CXR, procal #Acute blood loss anemia; resolved #Normocytic anemia #Anemia of chronic disease - Progressive decline in Hgb (9.8 on admission, 7.2 on 07/03) -> s/p 1 unit RBCs - Heme occult pending (hasn't had a bowel movement) - Iron studies w/ elevated ferritin, low Fe -> consistent w/ ACD - Pt has not reported any bleeding - Hgb stably ~9-10; however, did drop from 10.1 -> 8.9 07/06 - EGD 06/29 showed changes s/ps polypectomy, no reported active bleeding - GI consulted for procedure; in setting of anemia and h/o polyp removal, EGD/ colonscopy was performed that showed several >Will hold AC for now, plan to restart 2 weeks from stroke onset > Hgb w/ QAM CBC #Urinary retention s/p suprapubic johnson -> placed by urology OSH prior to transfer here - Reportedly, pt pulled staple out overnight > Will touch base w/ urology, f/u UA above #Peripheral neuropathy - pt reporting significant RLE pain, start lidocaine gel and nortriptyline 10mg #DMII #Reportedly in DKA @ OSH - Off insulin gtt - a1c 17.4 - Endocrine consulted for management >Decrease 20U lantus QHS, increase 6U aspart TIDAC >pt to f/u w/ endo @ [facility] outpt basis -> goal BS 100-140 fasting and 140-180 during the day #AFib; rate controlled - AFib RVR at OSH - was on cardizem gtt there and was placed on cardizem gtt here in the ICU - Rate controlled currently, off gtt - Was on heparin gtt OSH, but this was stopped w/ concern for possible GI bleed above -> develop stroke and was transferred to [facility] - Was placed on PO cardizem > Will transition to lopressor 12.5 BID; d/c cardizem w/ norvasc above for BP control #Constipation > PRN bowel regimen, will given suppository for BM #Agitation; improved - seroquel 25mg BID PO #Urosepsis (resolved): - WBC count fluctuating, 14.6 07/07 ->possibly reactive - Blood cultures with negative growth - UA negative for UTI - Rocephin 07/01 - 07/05 FEN: nectar thick PO fluids, replace lytes PRN, ada diet Ppx: [id number] Heparin Sq Q8, SCDs Code: Full Dispo: continue admission to neuro for stroke/concern for GI bleed -> to SNF on discharge Patient was seen and discussed with Dr. Quiñones. James Shook, PGY-2 Subjective: Valdez Anthony is a 57 y.o. male. Pt seen and examined at bedside this AM. Pt reports that overnight he did not sleep well last night, woke up several times at night and was restless. Discussed that he should try to stay awake during the day, as states that he sleeps all day long. Encouraged to keep the window open. Pt agreeable. Endoscopy today. Objective: Scheduled Meds: amLODIPine (NORVASC) tablet 5 mg 5 mg Oral QDAY aspirin chewable tablet 81 mg 81 mg Oral QDAY atorvastatin (LIPITOR) tablet 40 mg 40 mg Oral QHS heparin (porcine) PF syringe 5,000 Units 5,000 Units Subcutaneous Q8H insulin aspart U-100 (NOVOLOG FLEXPEN) injection PEN 0-7 Units 0-7 Units Subcutaneous ACHS insulin aspart U-100 (NOVOLOG FLEXPEN) injection PEN 5 Units 5 Units Subcutaneous TID w/ meals [START ON 07/09/2018] insulin glargine (LANTUS SOLOSTAR, BASAGLAR) injection PEN 20 Units 20 Units Subcutaneous QDAY lisinopril (PRINIVIL; ZESTRIL) tablet 40 mg 40 mg Oral QDAY metoprolol tartrate (LOPRESSOR) tablet 12.5 mg 12.5 mg Oral BID nortriptyline (PAMELOR) capsule 10 mg 10 mg Oral QHS polyethylene glycol 3350 (MIRALAX) packet 17 g 1 packet Oral QDAY QUEtiapine (SEROQUEL) tablet 25 mg 25 mg Oral BID senna/docusate (SENOKOT-S) solution 10 mL 10 mL Oral BID Continuous Infusions: PRN and Respiratory Meds:acetaminophen Q6H PRN, bisacodyl QDAY PRN, hydrALAZINE Q6H PRN, labetalol (NORMODYNE; TRANDATE) injection Q6H PRN Vital Signs: Last Filed Vital Signs: 24 Hour Range BP: 170/71 (07/08 1355) Temp: 36.7 C (98.1 F) (07/08 1306) Pulse: 71 (07/08 1355) Respirations: 16 PER MINUTE (07/08 1141) SpO2: 99 % (07/08 1355) O2 Delivery: None (Room Air) (07/08 1141) SpO2 Pulse: 70 (07/08 1355) BP: (96-170)/(49-97) Temp: [36.7 C (98 F)-37.6 C (99.6 F)] Pulse: [61-89] Respirations: [16 PER MINUTE-19 PER MINUTE] SpO2: [92 %-100 %] O2 Delivery: None (Room Air) Intensity Pain Scale (Self Report): 10 Verbal Pain Description: Moderate Pain ICP Monitoring: Intake/Output Summary: (Last 24 hours) Intake/Output Summary (Last 24 hours) at 07/08/18 1549 Last data filed at 07/08/18 1257 Gross per 24 hour Intake 3240 ml Output 3000 ml Net 240 ml Physical Exam: General: NAD, laying in bed, thin, somewhat disheveled HEENT: normocephalic, atraumatic, sclera w/ mild injection OU Mental status: lethargic, awake, following simple commands, answering simple questions CN: L mild lower facial droop, EOMI OU, tonuge midline, good shoulder shrug b/l Motor: 5/5 ON the R side, 4+/5 LUE/LLE Laboratory Review: 24-hour labs: Results for orders placed or performed during the hospital encounter of (from the past 24 hour(s)) POC GLUCOSE Collection Time: 07/07/18 5:54 PM Result Value Ref Range Glucose, POC 111 (H) 70 - 100 MG/DL POC GLUCOSE Collection Time: 07/07/18 9:26 PM Result Value Ref Range Glucose, POC 176 (H) 70 - 100 MG/DL CBC AND DIFF Collection Time: 07/08/18 5:53 AM Result Value Ref Range White Blood Cells 21.7 (H) 4.5 - 11.0 K/UL RBC 3.04 (L) 4.4 - 5.5 M/UL Hemoglobin 9.3 (L) 13.5 - 16.5 GM/DL Hematocrit 27.5 (L) 40 - 50 % MCV 90.4 80 - 100 FL MCH 30.4 26 - 34 PG MCHC 33.6 32.0 - 36.0 G/DL RDW 14.2 11 - 15 % Platelet Count 521 (H) 150 - 400 K/UL MPV 8.0 7 - 11 FL Neutrophils 85 (H) 41 - 77 % Lymphocytes 7 (L) 24 - 44 % Monocytes 8 4 - 12 % Eosinophils 0 0 - 5 % Basophils 0 0 - 2 % Absolute Neutrophil Count 18.40 (H) 1.8 - 7.0 K/UL Absolute Lymph Count 1.50 1.0 - 4.8 K/UL Absolute Monocyte Count 1.70 (H) 0 - 0.80 K/UL Absolute Eosinophil Count 0.10 0 - 0.45 K/UL Absolute Basophil Count 0.00 0 - 0.20 K/UL COMPREHENSIVE METABOLIC PANEL Collection Time: 07/08/18 5:53 AM Result Value Ref Range Sodium 138 137 - 147 MMOL/L Potassium 3.6 3.5 - 5.1 MMOL/L Chloride 104 98 - 110 MMOL/L Glucose 79 70 - 100 MG/DL Blood Urea Nitrogen 6 (L) 7 - 25 MG/DL Creatinine 1.05 0.4 - 1.24 MG/DL Calcium 8.5 8.5 - 10.6 MG/DL Total Protein 6.0 6.0 - 8.0 G/DL Total Bilirubin 0.7 0.3 - 1.2 MG/DL Albumin 3.1 (L) 3.5 - 5.0 G/DL Alk Phosphatase 108 25 - 110 U/L AST (SGOT) 34 7 - 40 U/L CO2 26 21 - 30 MMOL/L ALT (SGPT) 20 7 - 56 U/L Anion Gap 8 3 - 12 eGFR Non >60 >60 mL/min eGFR >60 >60 mL/min POC GLUCOSE Collection Time: 07/08/18 7:33 AM Result Value Ref Range Glucose, POC 88 70 - 100 MG/DL POC GLUCOSE Collection Time: 07/08/18 11:22 AM Result Value Ref Range Glucose, POC 40 (LL) 70 - 100 MG/DL POC GLUCOSE Collection Time: 07/08/18 11:46 AM Result Value Ref Range Glucose, POC 164 (H) 70 - 100 MG/DL POC GLUCOSE Collection Time: 07/08/18 1:21 PM Result Value Ref Range Glucose, POC 67 (L) 70 - 100 MG/DL POC GLUCOSE Collection Time: 07/08/18 1:57 PM Result Value Ref Range Glucose, POC 75 70 - 100 MG/DL Point of Care Testing: (Last 24 hours): Glucose: 79 (07/08/18 0576) POC Glucose (Download): 75 (07/08/18 2155) Radiology and Other Diagnostics Review: Pertinent radiology reviewed. James Shook DO Pager Associated attestation - Keyshawn Quiñones MD - 07/08/2018 4:08 PM CDT Attending Addendum: I have personally interviewed and examined Valdez Anthony and reviewed the history, examination, impression, and plan of care as outlined by Dr. Shook. I agree with the assessment and plan as documented with the following addendum: Mr. Anthony received his EGD/colonoscopy today. Feeling fine afterwards asking to drink a coke. He denies any infectious symptoms. Exam stable. EGD shows superficial esophageal erosion and gastric erythema. Colonoscopy with several polyps found/removed. No current active bleeding. Hgb stable today around 9. WBC elevated today to 21.7. CXR wnl. No fevers. MRI brain with acute stroke in R MCA territory moderate size with smaller area of infarct in L temporal lobe. Some petechial hemorrhagic transformation in R MCA infarct bed. CTA head/neck with some narrowing of L intracranial ICA. LDL 44, A1c 17.4, TTE unremarkable. Etiology of stroke likely cardioembolic. - will plan on starting Eliquis 5 mg bid around 2 weeks from stroke onset due to moderate size/presence of HT, around 07/15/18 - appreciate GI assistance for EGD/colonoscopy eval - for new leukocytosis, completing infectious workup, currently asymptomatic - continue ASA until Eliquis started, Atorvastatin 40, Lisinopril and Cardizem - appreciate endocrine assistance with uncontrolled diabetes - PT/OT/PMNR following, anticipate d/c to inpatient facility likely tomorrow Keyshawn Quiñones MD * Roberto Dutta MD - 07/08/2018 3:38 PM CDT Brief EGD note: Impression: - Esophagogastric landmarks identified. - 2 cm hiatal hernia. - One small superficial erosion noted in the upper esophagus, likamy 2/2 ?NG tube trauma. Inlet patch noted. Otherwise normal esophagus. - Erythematous mucosa in the gastric body. - Normal duodenal bulb, first portion of the duodenum and second portion of the duodenum. Biopsied. Recommendation: - Resume previous diet. - Continue present medications. - Await pathology results. Brief colonoscopy note: Impression: - Preparation of the colon was [...] to narrow rectum. - No specimens collected. Recommendation: - Resume previous diet. - Continue present medications. - Repeat colonoscopy in 1 year for surveillance of polyp due to inadequate prep today and multiple polyps removed. - Await pathology results. Rboerto Dutta GI fellow Pager [phone] 07/08/2018 3:39 PM * Eloy Higgins RN - 07/08/2018 1:43 PM CDT EGD/Colonscopy -You may have a sore throat after the procedure for 2-3 days. Try sucrets or lozenges to help ease the pain. If it continues please contact us. -If you feel feverish, have a temperature of 101 degrees or higher, persistent nausea and vomiting, abdominal pain or dark stools; please notify your nurse or GI physician. -You may have abdominal cramping following the procedure this can be relieved by belching or passing air. -If you have redness or swelling at the IV site, place a warm, wet washcloth over the affected areas for 15 minutes, 3-4 times a day until the redness subsides. If symptoms continue for 2-3 days, contact your regular physician. - If you have bleeding from your mouth, over 2 tablespoons and increasing, please notify your physician. A small amount of bleeding is normal if a biopsy or polyps were taken. If you are vomiting blood you need to seek immediate medical attention. - You may resume all your routine medications, if medications need to be held your physician and/or nurse will notify you post procedure. SPECIFIC INSTRUCTIONS INPATIENTS: Ask for help when you get up in your room, as you may still be drowsy from your sedation. Should you have any questions or concerns after your procedure please call M-F 8am-5:00 pm. After 5:00 pm, holidays or weekends call [phone] and ask for the GI Doctor director special education. * Barbi Deluna MD - 07/08/2018 12:10 PM CDT Formatting of this note may be different from the original. General Progress Note Admission Date: 07/01/2018 LOS: 7 days Assessment/Plan: Principal Problem: Stroke (HCC) Active Problems: HTN (hypertension) Diabetes (HCC) Anemia Agitation Admission Date: 07/01/2018 Principal Problem: Stroke (HCC) Active Problems: HTN (hypertension) Diabetes (HCC) Reason for consult:patient admitted for stroke, also was in DKA, BG difficult to control Type: Co-management w/signed orders Assessment: DM type 2 DKA resolved -A1c 17.4 on 07/01/2018 uncontrolled -PATTERN WORKER regimen: levemir 40 units QHS, Novolog 20-25 units with meals , metformin 1000 mg bid -Hypoglycemic episodes on this regimen: none -Follows up with for diabetes management: endocrinology - current steroid use : none Complications of DM: CAD: No CVA: Yes this admit PVD: No Amputations: No Retinopathy: Yes Gastropathy: No Nephropathy: Yes Neuropathy: Yes on Lyrica Afib Ischemic stroke - R MCA stroke : underwent stent-retriever/aspiration Urosepsis Recommendation Type 2 diabetes: - Poorly controlled diabetes prior to admission. A1c 17 - Our goal is to avoid hypoglycemia and to prevent hyperglycemia during hospitalization. - Goal BS 100-140 fasting and 140-180 during the day. - Decrease lantus to 15 units daily - Continue novolog 5 with meal, tid - Continue novolog LDCF - Patient will follow up with local endocrinology in [facility] Subjective Valdez Anthony is a 57 y.o. male. Pt has been sleepy today. He is NPO for EGD/ colonoscopy and had hypoglycemia this am. ROS: no chest pain, SOB, N&V. Medications Scheduled Meds: [MAR Hold] amLODIPine (NORVASC) tablet 5 mg 5 mg Oral QDAY [DEC Hold] aspirin chewable tablet 81 mg 81 mg Oral QDAY [DEC Hold] atorvastatin (LIPITOR) tablet 40 mg 40 mg Oral QHS [Dec] heparin (porcine) PF syringe 5,000 Units 5,000 Units Subcutaneous Q8H [DEC Hold] insulin aspart U-100 (NOVOLOG FLEXPEN) injection PEN 0-7 Units 0-7 Units Subcutaneous ACHS [DEC Hold] insulin aspart U-100 (NOVOLOG FLEXPEN) injection PEN 5 Units 5 Units Subcutaneous TID w/ meals [START ON 07/09/2018] insulin glargine (LANTUS SOLOSTAR, BASAGLAR) injection PEN 20 Units 20 Units Subcutaneous QDAY [DEC Hold] lisinopril (PRINIVIL; ZESTRIL) tablet 40 mg 40 mg Oral QDAY [Dec] metoprolol tartrate (LOPRESSOR) tablet 12.5 mg 12.5 mg Oral BID [DEC Hold] nortriptyline (PAMELOR) capsule 10 mg 10 mg Oral QHS [Dec] polyethylene glycol 3350 (MIRALAX) packet 17 g 1 packet Oral QDAY [Dec] QUEtiapine (SEROQUEL) tablet 25 mg 25 mg Oral BID [DEC Hold] senna/docusate (SENOKOT-S) solution 10 mL 10 mL Oral BID Continuous Infusions: PRN and Respiratory Meds:[Dec] acetaminophen Q6H PRN, [DEC Hold] bisacodyl QDAY PRN, [DEC Hold] hydrALAZINE Q6H PRN, [DEC Hold] labetalol (NORMODYNE; TRANDATE) injection Q6H PRN Objective Vital Signs: Last Filed Vital Signs: 24 Hour Range BP: 111/51 (07/08 1141) Temp: 36.9 C (98.4 F) (07/08 1141) Pulse: 65 (07/08 1141) Respirations: 16 PER MINUTE (07/08 1141) SpO2: 99 % (07/08 1141) O2 Delivery: None (Room Air) (07/08 1141) BP: (111-156)/(49-70) Temp: [36.7 C (98 F)-37.6 C (99.6 F)] Pulse: [65-89] Respirations: [16 PER MINUTE-19 PER MINUTE] SpO2: [92 %-99 %] O2 Delivery: None (Room Air) Vitals: 07/01/18 1445 Weight: 71.6 kg (157 lb 13.6 oz) Intake/Output Summary: (Last 24 hours) Intake/Output Summary (Last 24 hours) at 07/08/18 1210 Last data filed at 07/08/18 0615 Gross per 24 hour Intake 2690 ml Output 3000 ml Net -310 ml Stool Occurrence: 1 Physical Exam General appearance: drowsy but arousable Lungs: breathing comfortably Extremities: extremities normal, atraumatic, no cyanosis or edema Lab Review 24-hour labs: Results for orders placed or performed during the hospital encounter of (from the past 24 hour(s)) POC GLUCOSE Collection Time: 07/07/18 5:54 PM Result Value Ref Range Glucose, POC 111 (H) 70 - 100 MG/DL POC GLUCOSE Collection Time: 07/07/18 9:26 PM Result Value Ref Range Glucose, POC 176 (H) 70 - 100 MG/DL CBC AND DIFF Collection Time: 07/08/18 5:53 AM Result Value Ref Range White Blood Cells 21.7 (H) 4.5 - 11.0 K/UL RBC 3.04 (L) 4.4 - 5.5 M/UL Hemoglobin 9.3 (L) 13.5 - 16.5 GM/DL Hematocrit 27.5 (L) 40 - 50 % MCV 90.4 80 - 100 FL MCH 30.4 26 - 34 PG MCHC 33.6 32.0 - 36.0 G/DL RDW 14.2 11 - 15 % Platelet Count 521 (H) 150 - 400 K/UL MPV 8.0 7 - 11 FL Neutrophils 85 (H) 41 - 77 % Lymphocytes 7 (L) 24 - 44 % Monocytes 8 4 - 12 % Eosinophils 0 0 - 5 % Basophils 0 0 - 2 % Absolute Neutrophil Count 18.40 (H) 1.8 - 7.0 K/UL Absolute Lymph Count 1.50 1.0 - 4.8 K/UL Absolute Monocyte Count 1.70 (H) 0 - 0.80 K/UL Absolute Eosinophil Count 0.10 0 - 0.45 K/UL Absolute Basophil Count 0.00 0 - 0.20 K/UL COMPREHENSIVE METABOLIC PANEL Collection Time: 07/08/18 5:53 AM Result Value Ref Range Sodium 138 137 - 147 MMOL/L Potassium 3.6 3.5 - 5.1 MMOL/L Chloride 104 98 - 110 MMOL/L Glucose 79 70 - 100 MG/DL Blood Urea Nitrogen 6 (L) 7 - 25 MG/DL Creatinine 1.05 0.4 - 1.24 MG/DL Calcium 8.5 8.5 - 10.6 MG/DL Total Protein 6.0 6.0 - 8.0 G/DL Total Bilirubin 0.7 0.3 - 1.2 MG/DL Albumin 3.1 (L) 3.5 - 5.0 G/DL Alk Phosphatase 108 25 - 110 U/L AST (SGOT) 34 7 - 40 U/L CO2 26 21 - 30 MMOL/L ALT (SGPT) 20 7 - 56 U/L Anion Gap 8 3 - 12 eGFR Non >60 >60 mL/min eGFR >60 >60 mL/min POC GLUCOSE Collection Time: 07/08/18 7:33 AM Result Value Ref Range Glucose, POC 88 70 - 100 MG/DL POC GLUCOSE Collection Time: 07/08/18 11:22 AM Result Value Ref Range Glucose, POC 40 (LL) 70 - 100 MG/DL POC GLUCOSE Collection Time: 07/08/18 11:46 AM Result Value Ref Range Glucose, POC 164 (H) 70 - 100 MG/DL Point of Care Testing (Last 24 hours) Recent Labs 07/06/18 2104 07/07/18 0749 07/07/18 1130 07/07/18 1754 07/07/18 2126 07/08/18 0733 07/08/18 1122 07/08/18 1146 GLUPOC 115* 182* 90 111* 176* 88 40* 164* Radiology and other Diagnostics Review: none Barbi Deluna MD P [id number] * Aria Mccoy, PT - 07/08/2018 10:24 AM CDT PHYSICAL THERAPY PROGRESS NOTE MOBILITY: Mobility Progressive Mobility Level: Walk in room Distance Walked (feet): 15 ft Level of Assistance: Assist X1 Assistive Device: Walker Time Tolerated: 11-30 minutes Activity Limited By: Fatigue;Mental Status Variability SUBJECTIVE: Significant hospital events: 57 y.o. male with new onset Atrial Fibrillation with RVR transferred from an OSH for stroke; found to have a R M1 occlusion; s/ p endovascular thrombectomy which was successful; MRI shows bilateral temporal lobe infarcts, R insular cortex, R insular cortex, infarcts and small areas of hemorrhagic conversion. Mental / Cognitive Status: Inconsistent with Command Following;Alert;Cooperative Persons Present: Spouse;Nursing Staff;Occupational Therapist Pain: Patient has no complaint of pain Comments: PMH: HTN, HLD, T2DM, Diabetic Retinopathy, OD Blindness, Neovascular Glaucoma, Prostate Cancer s/p prostatectomy, Urinary Retention s/p suprapubic catheter that was admitted at [facility] for urosepsis, DKA, A fib with RVR requiring cardizem ggt Ambulation Assist: Independent Mobility in Community without Device Patient Owned Equipment: Single Point Cane;Roller Walker;4-Wheeled Walker Home Situation: Lives with Family Type of Home: House (Trailer home) Entry Stairs: 3-5 Stairs;Rail on 1 Side In-Home Stairs: No Stairs Comments: Spouse reports patient falls approximately 1 time per month related to poor balance. BED MOBILITY/TRANSFERS: Bed Mobility/Transfers Bed Mobility: Supine to Sit: Moderate Assist;Verbal Cues;Head of Bed Elevated; Assist with B LE;Assist with Trunk Transfer Type: Sit to/from Stand Transfer: Assistance Level: To/From;Minimal Assist Transfer: Assistive Device: Roller Walker Transfers: Type Of Assistance: Verbal Cues;For Strength Deficit;For Safety Considerations End Of Activity Status: In Bed;Nursing Notified;Instructed Patient to Request Assist with Mobility;Instructed Patient to Use Call Light (With transport team) BALANCE: Balance Sitting Balance: Static Sitting Balance;2 UE Support;Minimal Assist Standing Balance: Static Standing Balance;2 UE support;Minimal Assist GAIT: Gait Gait Distance: 15 feet Gait: Assistance Level: Minimal Assist;Safety Considerations Gait: Assistive Device: Roller Walker Gait: Descriptors: Pace: Slow;Forward trunk flexion;No balance loss;Swing- Through Gait;Decreased step length Activity Limited By: Complaint of Fatigue;Patient Choice ASSESSMENT/PROGRESS: Impaired Mobility Due To: Decreased Strength;Impaired Balance;Safety Concerns; Decreased Activity Tolerance;Deconditioning Assessment/Progress: Should Improve w/ Continued PT Comments: Pt given increased encouragement to participate in therapy, pt commented that has was very fatigued and just wanted to sleep. Pt presents with 1 inconsistent comment during therapy, commenting he " didn't want any show tunes" when asked if he wanted a sprite. Pt presents with increased strength and needs increased assistance to initiate functional activity due to wanting to sleep. AM-PAC 6 Clicks Basic Mobility Inpatient Turning from your back to your side while in a flat bed without using bed rails : None Moving from lying on your back to sitting on the side of a flatbed without using bedrails : A Little Moving to and from a bed to a chair (including a wheelchair): A Little Standing up from a chair using your arms (e.g. wheelchair, or bedside chair): A Little To walk in hospital room: A Little Climbing 3-5 steps with a railing: A Lot Raw Score: 18 Standardized (T-scale) Score: 41.05 Basic Mobility CMS 0-100%: 40.47 CMS G Code Modifier for Basic Mobility: CK GOALS: Goals Goal Formulation: With Patient/Family Time For Goal Achievement: 7 days Pt Will Go Supine To/From Sit: w/ Moderate Assist Pt Will Transfer Sit to Stand: w/ Moderate Assist Pt Will Ambulate: 11-30 Feet, w/ Walker, w/ Moderate Assist Pt Will Go Up / Down Stairs: 3-5 Stairs, w/ Moderate Assist PLAN: Treatment Interventions: Mobility Training;Strengthening;Balance Activities Plan Frequency: 5 Days per Week PT Plan for Next Visit: continue to progress ambulation distance with roller walker. balance assessment. RECOMMENDATIONS: PT Discharge Recommendations: Inpatient Setting;versus;Home with consistent supervision;and;Home Health Setting At current level of function would recommend inpatient setting due to the following barriers: decreased safety awareness and balance during ambulation. If patient does discharge home would require: increased assistance due to safety. Equipment Recommendations: Too early to be determined Recommend ongoing assistance for: Safety concerns;In and out of house;Transfers; Bed mobility;Ambulation;Stairs Therapist: Aria Mccoy, PT Date: 07/08/2018 * Irma Blakely, OT - 07/08/2018 10:06 AM CDT Formatting of this note may be different from the original. OCCUPATIONAL THERAPY PROGRESS NOTE Patient Name: Valdez Anthony Room/Bed: ND3243/01 Admitting Diagnosis: Stroke Past Medical History: Diagnosis Date Arthritis DM (diabetes mellitus) (HCC) DM eyes Glaucoma neovascular Hypertension Mobility Progressive Mobility Level: Walk in room (Simultaneous filing. User may not have seen previous data.) Distance Walked (feet): 15 ft Level of Assistance: Assist X1 (Simultaneous filing. User may not have seen previous data.) Assistive Device: Walker (Simultaneous filing. User may not have seen previous data.) Time Tolerated: 11-30 minutes Activity Limited By: Mental Status Variability (Simultaneous filing. User may not have seen previous data.) Subjective Precautions: Falls;Diet Modifications Pain / Complaints: Patient agrees to participate in therapy;Patient has no c/o pain Comments: Patient supine in bed upon arrival of OT. Patient leaving with transport at end of session Objective Psychosocial Status: Participates in Therapy with Encouragement Persons Present: Spouse;Physical Therapist (Simultaneous filing. User may not have seen previous data.) Home Living Type of Home: House (Simultaneous filing. User may not have seen previous data.) Home Layout: One Level;Stairs to Enter w/ Rails Bathroom Shower / Tub: Tub/Shower Unit Comment: pt has walkers, canes, white canes. Does not use walkers, uses white cane occasionally in community. 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 Does not drive. Falls about once a month, per due to losing his balance. ADL's Where Assessed: Edge of Bed UE Dressing Assist: Minimal Assist LE Dressing Assist: Maximum Assist Toileting Assist: Total Assist Toileting Deficits: Steadying;Supervision/Safety;Clothing Management Up; Clothing Management Down;Perineal Hygiene Functional Transfer Assist: Minimal Assist Functional Transfer Deficits: Steadying;Verbal Cueing;Supervision/Safety; Increased Time to Complete Comment: Patient requires maximal encouragement for participation and placing blankets over head. Supine>sit with maximal assist x1 due to lack of effort. Required total assist for clean up after incontinent of BM. Sit>supine with moderate assist due to lack of initiation. Activity Tolerance Endurance: 2/5 Tolerates 10-20 Minutes Exercise w/Multiple Rests Sitting Balance: 3/5 Sits w/o UE Support Up to 30 Seconds Cognition Overall Cognitive Status: Impaired Expression: Mumbling/Slurred;Increased Time for Expression Social Interaction: Encouragement/Coaxing to Participate Problem Solving: Cueing to Sequence Task;Unable to Utilize Call Light;Direction Following Assist;Decreased Judgment/Safety Attention: Distractable Cognition Comment: decreased initiation during functional mobility UE AROM Overall BUE AROM WNL: Yes Education Goal Formulation: With Patient/Family Assessment Assessment: Decreased ADL Status;Decreased UE Strength;Decreased Cognition; Decreased Self-Care Trans;Decreased High-Level ADLs Prognosis: Good;w/Cont OT s/p Acute Discharge AM-PAC 6 Clicks Daily Activity Inpatient Putting on and taking off regular lower body clothes?: Total Bathing (Including washing, rinsing, drying): A Lot Toileting, which includes using toilet, bedpan, or urinal: A Lot Putting on and taking off regular upper body clothing: A Lot Taking care of personal grooming such as brushing teeth: A Little Eating meals?: A Little Daily Activity Raw Score: 13 Standardized (t-scale) score: 32.03 CMS 0-100% Score: 63.03 CMS G Code Modifier: CL Plan OT Frequency: 5x/week OT Plan for Next Visit: sink level ADLs, LE dressing ADL Goals Patient Will Perform Grooming: Standing at Sink;w/ Minimum Assist Patient Will Perform LE Dressing: w/ Moderate Assist Functional Transfer Goals Pt Will Perform All Functional Transfers: Minimum Assist Pt Will Transfer To Bedside Commode: w/ Moderate Assist OT Discharge Recommendations OT Discharge Recommendations: Inpatient Setting Equipment Recommendations: Too early to be determined Recommend ongoing assistance for: Safety concerns, In and out of house, Transfers, Bed mobility, Ambulation, Stairs Therapist: ERIC Whalen/[place] [id number] Date: 07/08/2018 * Whit Guadarrama MS,CCC-ELECTRIC RELAY TESTER - 07/08/2018 9:38 AM CDT SPEECH-LANGUAGE PATHOLOGY NO TREATMENT NOTE Chart reviewed and discussed in interdisciplinary rounds. Pt NPO for colonoscopy this date. ELECTRIC RELAY TESTER will continue to follow. Therapist: Whit Guadarrama MS,CCC-ELECTRIC RELAY TESTER [id number] Date: 07/08/2018 * Barbi Deluna MD - 07/07/2018 3:25 PM CDT Formatting of this note may be different from the original. General Progress Note Admission Date: 07/01/2018 LOS: 6 days Assessment/Plan: Principal Problem: Stroke (HCC) Active Problems: HTN (hypertension) Diabetes (HCC) Anemia Agitation Admission Date: 07/01/2018 Principal Problem: Stroke (HCC) Active Problems: HTN (hypertension) Diabetes (HCC) Reason for consult:patient admitted for stroke, also was in DKA, BG difficult to control Type: Co-management w/signed orders Assessment: DM type 2 DKA resolved -A1c 17.4 on 07/01/2018 uncontrolled -PATTERN WORKER regimen: levemir 40 units QHS, Novolog 20-25 units with meals , metformin 1000 mg bid -Hypoglycemic episodes on this regimen: none -Follows up with for diabetes management: endocrinology - current steroid use : none Complications of DM: CAD: No CVA: Yes this admit PVD: No Amputations: No Retinopathy: Yes Gastropathy: No Nephropathy: Yes Neuropathy: Yes on Lyrica Afib Ischemic stroke - R MCA stroke : underwent stent-retriever/aspiration Urosepsis Recommendation Type 2 diabetes: - Poorly controlled diabetes prior to admission. A1c 17 - Our goal is to avoid hypoglycemia and to prevent hyperglycemia during hospitalization. - Goal BS 100-140 fasting and 140-180 during the day. - Decrease lantus to 25 units daily - change to novolog 5 with meal, tid - Continue novolog LDCF - Patient will follow up with local endocrinology in [facility] Subjective Valdez Anthony is a 57 y.o. male. Pt reports feeling OK. He is NPO for EGD/ colonoscopy. No hypoglycemia. ROS: no chest pain, SOB, N&V. Medications Scheduled Meds: amLODIPine (NORVASC) tablet 5 mg 5 mg Oral QDAY aspirin chewable tablet 81 mg 81 mg Oral QDAY atorvastatin (LIPITOR) tablet 40 mg 40 mg Oral QHS electrolyte GUT PEG (NULYTELY, COLYTE, GAVILYTE-N) oral solution 4 L 4 L Oral ONCE heparin (porcine) PF syringe 5,000 Units 5,000 Units Subcutaneous Q8H insulin aspart U-100 (NOVOLOG FLEXPEN) injection PEN 0-7 Units 0-7 Units Subcutaneous ACHS insulin aspart U-100 (NOVOLOG FLEXPEN) injection PEN 6 Units 6 Units Subcutaneous TID after meals insulin glargine (LANTUS SOLOSTAR, BASAGLAR) injection PEN 28 Units 28 Units Subcutaneous QDAY lisinopril (PRINIVIL; ZESTRIL) tablet 40 mg 40 mg Oral QDAY metoprolol tartrate (LOPRESSOR) tablet 12.5 mg 12.5 mg Oral BID nortriptyline (PAMELOR) capsule 10 mg 10 mg Oral QHS polyethylene glycol 3350 (MIRALAX) packet 17 g 1 packet Oral QDAY QUEtiapine (SEROQUEL) tablet 25 mg 25 mg Oral BID senna/docusate (SENOKOT-S) solution 10 mL 10 mL Oral BID Continuous Infusions: PRN and Respiratory Meds:acetaminophen Q6H PRN, bisacodyl QDAY PRN, hydrALAZINE Q6H PRN, labetalol (NORMODYNE; TRANDATE) injection Q6H PRN Objective Vital Signs: Last Filed Vital Signs: 24 Hour Range BP: 156/52 (07/07 145) Temp: 36.9 C (98.4 F) (07/07 145) Pulse: 76 (07/07 145) Respirations: 18 PER MINUTE (07/07 1451) SpO2: 93 % (07/07 1451) O2 Delivery: None (Room Air) (07/07 1451) BP: (140-175)/(52-89) Temp: [36.3 C (97.3 F)-36.9 C (98.4 F)] Pulse: [76-93] Respirations: [16 PER MINUTE-18 PER MINUTE] SpO2: [93 %-99 %] O2 Delivery: None (Room Air) Vitals: 07/01/18 1445 Weight: 71.6 kg (157 lb 13.6 oz) Intake/Output Summary: (Last 24 hours) Intake/Output Summary (Last 24 hours) at 07/07/18 1525 Last data filed at 07/07/18 1452 Gross per 24 hour Intake 2650 ml Output 4225 ml Net -1575 ml Stool Occurrence: 2 Physical Exam General appearance: alert and cooperative Neurologic: Grossly normal Lungs: breathing comfortably Extremities: extremities normal, atraumatic, no cyanosis or edema Lab Review 24-hour labs: Results for orders placed or performed during the hospital encounter of (from the past 24 hour(s)) POC GLUCOSE Collection Time: 07/06/18 5:11 PM Result Value Ref Range Glucose, POC 150 (H) 70 - 100 MG/DL POC GLUCOSE Collection Time: 07/06/18 9:04 PM Result Value Ref Range Glucose, POC 115 (H) 70 - 100 MG/DL OCCULT BLOOD NON COLON CANCER SCREEN Collection Time: 07/06/18 10:45 PM Result Value Ref Range Battery Name OCCULT BLOOD SCREEN Specimen Description FECES Special Requests NONE Occult Blood NEGATIVE Report Status FINAL 07/06/2018 HEMOGLOBIN Collection Time: 07/06/18 10:45 PM Result Value Ref Range Hemoglobin 10.5 (L) 13.5 - 16.5 GM/DL HEMOGLOBIN Collection Time: 07/07/18 5:45 AM Result Value Ref Range Hemoglobin DUPLICATE ORDER 13.5 - 16.5 GM/DL COMPREHENSIVE METABOLIC PANEL Collection Time: 07/07/18 5:45 AM Result Value Ref Range Sodium 138 137 - 147 MMOL/L Potassium 3.9 3.5 - 5.1 MMOL/L Chloride 104 98 - 110 MMOL/L Glucose 180 (H) 70 - 100 MG/DL Blood Urea Nitrogen 13 7 - 25 MG/DL Creatinine 1.20 0.4 - 1.24 MG/DL Calcium 8.3 (L) 8.5 - 10.6 MG/DL Total Protein 6.0 6.0 - 8.0 G/DL Total Bilirubin 0.6 0.3 - 1.2 MG/DL Albumin 3.1 (L) 3.5 - 5.0 G/DL Alk Phosphatase 120 (H) 25 - 110 U/L AST (SGOT) 20 7 - 40 U/L CO2 25 21 - 30 MMOL/L ALT (SGPT) 19 7 - 56 U/L Anion Gap 9 3 - 12 eGFR Non >60 >60 mL/min eGFR >60 >60 mL/min POC GLUCOSE Collection Time: 07/07/18 7:49 AM Result Value Ref Range Glucose, POC 182 (H) 70 - 100 MG/DL CBC AND DIFF Collection Time: 07/07/18 8:00 AM Result Value Ref Range White Blood Cells 14.6 (H) 4.5 - 11.0 K/UL RBC 3.21 (L) 4.4 - 5.5 M/UL Hemoglobin 9.5 (L) 13.5 - 16.5 GM/DL Hematocrit 28.5 (L) 40 - 50 % MCV 88.7 80 - 100 FL MCH 29.6 26 - 34 PG MCHC 33.4 32.0 - 36.0 G/DL RDW 14.5 11 - 15 % Platelet Count 541 (H) 150 - 400 K/UL MPV 9.0 7 - 11 FL Neutrophils 74 41 - 77 % Lymphocytes 10 (L) 24 - 44 % Monocytes 13 (H) 4 - 12 % Eosinophils 2 0 - 5 % Basophils 1 0 - 2 % Absolute Neutrophil Count 10.90 (H) 1.8 - 7.0 K/UL Absolute Lymph Count 1.50 1.0 - 4.8 K/UL Absolute Monocyte Count 1.90 (H) 0 - 0.80 K/UL Absolute Eosinophil Count 0.20 0 - 0.45 K/UL Absolute Basophil Count 0.10 0 - 0.20 K/UL POC GLUCOSE Collection Time: 07/07/18 11:30 AM Result Value Ref Range Glucose, POC 90 70 - 100 MG/DL Point of Care Testing (Last 24 hours) Recent Labs 07/06/18 0235 07/06/18 0729 07/06/18 1149 07/06/18 1436 07/06/18 1711 07/06/18 2104 07/07/18 0749 07/07/18 1130 GLUPOC 132* 130* 153* 196* 150* 115* 182* 90 Radiology and other Diagnostics Review: none Barbi Deluna MD P [id number] * Aria Mccoy, PT - 07/07/2018 1:39 PM CDT PHYSICAL THERAPY NOTE Pt refused to work with therapy on this date. Pt asleep in bed with spouse in room. Pt attempted to arouse with verbal and manual cues with decreased carry over. Pt educated about importance of therapy and benefits with decreased carry over. Therapy will continue to follow and assist with care as appropriate. Therapist: Aria Mccoy, PT Date: 07/07/2018 * James Shook DO - 07/07/2018 1:10 PM CDT Formatting of this note may be different from the original. Neurology Progress Note Today's Date: 07/07/2018 Name: Valdez Anthony Admission Date: 07/01/2018 LOS: 6 days Assessment/Plan: Principal Problem: Stroke (HCC) Active Problems: HTN (hypertension) Diabetes (HCC) Anemia Agitation Mr. Caal a 57 y/oW M w/ new onset AFib, HTN, HLD, T2DM, diabetic retinopathy, OD blindness, neovascular glaucoma, prostate cancer s/p prostatectomy who presents to [facility] as a transfer from [facility] for stroke. OSH course: Pt presented to OSH for fatigue, SOB. Found to have UTI, w/ concern for urosepsis, BG 600s -> placed on insulin gtt. Pt was admitted to ICU there, where he shortly developed afib w/ RVR and placed on cardizem/heparin gtt. Heparin gtt was then stopped while here because of concern for possible GI bleed w/ sudden drop in Hgb. EGD 06/29 showed s/p polypectomy, no active bleeding. Pt also developed urinary retention during admission there as well, where urology was consulted and suprapubic catheter was placed. Pt then suddenly was noted to have aphasia, L hemiparesis, and decreased LOC. LKN unknown. Did not received tPA given unclear window. Was transferred to [facility] for evaluation. Was given ativan 2mg enroute for agitation. NEICU/stroke course: NIHSS 34 here for dysarthria, aphasia, neglect, L hemiparesis w/ R sided weakness, partial visual deficit, decreased LOC. CTA showed R M1 occlusion, CTP w/ 50% volume mismatch. S/p EVT w/ TICI3. Developed post-procedural somnolence. Repeat CT head was done that showed R lentiform nucleus hemorrhage. MRI head showed b/l temporal lobe infarct, R insular cortex infarct, and small areas of hemorrhagic conversion. Was started on ASA in the ICU. Was placed on cardizem and insulin gtt. Endocrine consulted for insulin gtt management and pt was successfully transitioned to subQ insulin. Pt was also taken on cardizem gtt as well. Transitioned to floor status following stabilization. #R MCA infarct w/ b/l temporal lobe infarct, R insular cortex; hemorrhagic conversion - Etiology likely cardioembolic w/ AFib noted on OSH - BP goal BP <130/80 - 81mg ASA daily for antiplatelet - LDL 44, Hgb A1c 17.4 with goal <7.0 - Will hold on AC until 2 weeks after stroke -> 07/15 - Echocardiogram: 60% EF, LA size 3.5cm, no thrombus - ELECTRIC RELAY TESTER following -> recommend regular diet w/ nectar thick liquids - PT/OT following: recommend inpatient setting - Rehab Medicine: Disposition recommendation is pending -> needs to follow 2 step commands prior to recommending IPR > continue lisinopril 40, lipitor 40; begin norvasc 5 for better BP control > DM management as below > Continue ASA for now; plan for AC as above > PT/OT/rehab following; plan for SNF #Acute blood loss anemia; resolved #Normocytic anemia #Anemia of chronic disease - Progressive decline in Hgb (9.8 on admission, 7.2 on 07/03) -> s/p 1 unit RBCs - Heme occult pending (hasn't had a bowel movement) - Iron studies w/ elevated ferritin, low Fe -> consistent w/ ACD - Pt has not reported any bleeding - Hgb stably ~9-10; however, did drop from 10.1 -> 8.9 07/06 - EGD 06/29 showed changes s/ps polypectomy, no reported active bleeding - GI consulted for procedure; in setting of anemia and h/o polyp removal, will get EGD/colonscopy inpt > Procedure w/ GI tomorrow; golytely and clear liquid diet until tomorrow > Will hold AC for now, plan to restart 2 weeks from stroke onset > Hgb w/ QAM CBC #Peripheral neuropathy - pt reporting significant RLE pain, start lidocaine gel and nortriptyline 10mg #DMII #Reportedly in DKA @ OSH - Off insulin gtt - a1c 17.4 - Endocrine consulted for management > Continue 30U lantus QHS, increase 6U aspart TIDAC > pt to f/u w/ endo @ [facility] outpt basis -> goal BS 100-140 fasting and 140-180 during the day #AFib; rate controlled - AFib RVR at OSH - was on cardizem gtt there and was placed on cardizem gtt here in the ICU - Rate controlled currently, off gtt - Was on heparin gtt OSH, but this was stopped w/ concern for possible GI bleed above -> develop stroke and was transferred to [facility] - Was placed on PO cardizem > Will transition to lopressor 12.5 BID; d/c cardizem w/ norvasc above for BP control #Constipation > PRN bowel regimen, will given suppository for BM #Agitation; improved - seroquel 25mg BID PO #Urosepsis (resolved): - WBC count fluctuating, 14.6 07/07 -> possibly reactive - Blood cultures with negative growth - UA negative for UTI - Rocephin 07/01 - 07/05 FEN: nectar thick PO fluids, replace lytes PRN, clear liquid/ada diet for procedure tomorrow Ppx: [id number] Heparin Sq Q8, SCDs Code: Full Dispo: continue admission to neuro for stroke/concern for GI bleed -> to SNF following procedure Patient was seen and discussed with Dr. Quiñones. James Shook, PGY-2 Subjective: Valdez Anthony is a 57 y.o. male. Pt seen and examined at bedside this AM. Pt reports that he is cold. Rm temp has been turned down to 65; nursing reports that pt was reportedly hot before. Otherwise, the pt wants to eat and drink pop and milk. Objective: Scheduled Meds: aspirin chewable tablet 81 mg 81 mg Oral QDAY atorvastatin (LIPITOR) tablet 40 mg 40 mg Oral QHS diltiazem(#) (cardIZEM) solution 30 mg 30 mg Oral Q6H heparin (porcine) PF syringe 5,000 Units 5,000 Units Subcutaneous Q8H insulin aspart U-100 (NOVOLOG FLEXPEN) injection PEN 0-7 Units 0-7 Units Subcutaneous ACHS insulin aspart U-100 (NOVOLOG FLEXPEN) injection PEN 6 Units 6 Units Subcutaneous TID after meals insulin glargine (LANTUS SOLOSTAR, BASAGLAR) injection PEN 28 Units 28 Units Subcutaneous QDAY lisinopril (PRINIVIL; ZESTRIL) tablet 40 mg 40 mg Oral QDAY nortriptyline (PAMELOR) capsule 10 mg 10 mg Oral QHS polyethylene glycol 3350 (MIRALAX) packet 17 g 1 packet Oral QDAY QUEtiapine (SEROQUEL) tablet 25 mg 25 mg Oral BID senna/docusate (SENOKOT-S) solution 10 mL 10 mL Oral BID Continuous Infusions: PRN and Respiratory Meds:acetaminophen Q6H PRN, bisacodyl QDAY PRN, hydrALAZINE Q6H PRN, labetalol (NORMODYNE; TRANDATE) injection Q6H PRN Vital Signs: Last Filed Vital Signs: 24 Hour Range BP: 150/59 (07/07 944) Temp: 36.7 C (98.1 F) (07/07 944) Pulse: 85 (07/07 944) Respirations: 18 PER MINUTE (07/07 944) SpO2: 97 % (07/07 944) O2 Delivery: None (Room Air) (07/07 944) BP: (135-175)/(47-89) Temp: [36.3 C (97.3 F)-36.9 C (98.4 F)] Pulse: [85-93] Respirations: [14 PER MINUTE-18 PER MINUTE] SpO2: [96 %-99 %] O2 Delivery: None (Room Air) Intensity Pain Scale (Self Report): 10 Verbal Pain Description: Moderate Pain ICP Monitoring: Intake/Output Summary: (Last 24 hours) Intake/Output Summary (Last 24 hours) at 07/07/18 1310 Last data filed at 07/07/18943 Gross per 24 hour Intake 2650 ml Output 4425 ml Net -1775 ml Physical Exam: General: annoyed, laying around in bed, thin, somewhat disheveled HEENT: normocephalic, atraumatic, sclera w/ mild injection OU Mental status: alert, awake, following simple commands, answering simple questions Speech: mildly slurred, comprehension intact to simple statements, fluency intact CN: L mild lower facial droop, EOMI OU, tongue midline, Motor: no fasiculations, RUE/RLE 5/5, 4/5 L elbow flex/ext, 4-/5L L shoulder abd , 4+/5 L wrist ext/flex, 4/5 L hip flex, 4/5 knee ext/flex, 4/5 L dorsiflex/ plantar flex Sensation reduced to LT LUE/LLE Laboratory Review: 24-hour labs: Results for orders placed or performed during the hospital encounter of (from the past 24 hour(s)) POC GLUCOSE Collection Time: 07/06/18 2:36 PM Result Value Ref Range Glucose, POC 196 (H) 70 - 100 MG/DL POC GLUCOSE Collection Time: 07/06/18 5:11 PM Result Value Ref Range Glucose, POC 150 (H) 70 - 100 MG/DL POC GLUCOSE Collection Time: 07/06/18 9:04 PM Result Value Ref Range Glucose, POC 115 (H) 70 - 100 MG/DL OCCULT BLOOD NON COLON CANCER SCREEN Collection Time: 07/06/18 10:45 PM Result Value Ref Range Battery Name OCCULT BLOOD SCREEN Specimen Description FECES Special Requests NONE Occult Blood NEGATIVE Report Status FINAL 07/06/2018 HEMOGLOBIN Collection Time: 07/06/18 10:45 PM Result Value Ref Range Hemoglobin 10.5 (L) 13.5 - 16.5 GM/DL HEMOGLOBIN Collection Time: 07/07/18 5:45 AM Result Value Ref Range Hemoglobin DUPLICATE ORDER 13.5 - 16.5 GM/DL COMPREHENSIVE METABOLIC PANEL Collection Time: 07/07/18 5:45 AM Result Value Ref Range Sodium 138 137 - 147 MMOL/L Potassium 3.9 3.5 - 5.1 MMOL/L Chloride 104 98 - 110 MMOL/L Glucose 180 (H) 70 - 100 MG/DL Blood Urea Nitrogen 13 7 - 25 MG/DL Creatinine 1.20 0.4 - 1.24 MG/DL Calcium 8.3 (L) 8.5 - 10.6 MG/DL Total Protein 6.0 6.0 - 8.0 G/DL Total Bilirubin 0.6 0.3 - 1.2 MG/DL Albumin 3.1 (L) 3.5 - 5.0 G/DL Alk Phosphatase 120 (H) 25 - 110 U/L AST (SGOT) 20 7 - 40 U/L CO2 25 21 - 30 MMOL/L ALT (SGPT) 19 7 - 56 U/L Anion Gap 9 3 - 12 eGFR Non >60 >60 mL/min eGFR >60 >60 mL/min POC GLUCOSE Collection Time: 07/07/18 7:49 AM Result Value Ref Range Glucose, POC 182 (H) 70 - 100 MG/DL CBC AND DIFF Collection Time: 07/07/18 8:00 AM Result Value Ref Range White Blood Cells 14.6 (H) 4.5 - 11.0 K/UL RBC 3.21 (L) 4.4 - 5.5 M/UL Hemoglobin 9.5 (L) 13.5 - 16.5 GM/DL Hematocrit 28.5 (L) 40 - 50 % MCV 88.7 80 - 100 FL MCH 29.6 26 - 34 PG MCHC 33.4 32.0 - 36.0 G/DL RDW 14.5 11 - 15 % Platelet Count 541 (H) 150 - 400 K/UL MPV 9.0 7 - 11 FL Neutrophils 74 41 - 77 % Lymphocytes 10 (L) 24 - 44 % Monocytes 13 (H) 4 - 12 % Eosinophils 2 0 - 5 % Basophils 1 0 - 2 % Absolute Neutrophil Count 10.90 (H) 1.8 - 7.0 K/UL Absolute Lymph Count 1.50 1.0 - 4.8 K/UL Absolute Monocyte Count 1.90 (H) 0 - 0.80 K/UL Absolute Eosinophil Count 0.20 0 - 0.45 K/UL Absolute Basophil Count 0.10 0 - 0.20 K/UL POC GLUCOSE Collection Time: 07/07/18 11:30 AM Result Value Ref Range Glucose, POC 90 70 - 100 MG/DL Point of Care Testing: (Last 24 hours): Glucose: (!) 180 (07/07/18 0545) POC Glucose (Download): 90 (07/07/18 1130) Radiology and Other Diagnostics Review: Pertinent radiology reviewed. James Shook DO Pager Associated attestation - Keyshawn Quiñones MD - 07/07/2018 2:54 PM CDT Attending Addendum: I have personally interviewed and examined Valdez Anthony and reviewed the history, examination, impression, and plan of care as outlined by Dr. Shook. I agree with the assessment and plan as documented with the following addendum: Mr. Anthony reports no new issues today. Wanting to eat/drink and uncomfortable with bowel prep for scope. Exam unchanged. Hgb stable today around 9. Fecal occult blood negative. MRI brain with acute stroke in R MCA territory moderate size with smaller area of infarct in L temporal lobe. Some petechial hemorrhagic transformation in R MCA infarct bed. CTA head/neck with some narrowing of L intracranial ICA. LDL 44, A1c 17.4, TTE unremarkable. Etiology of stroke likely cardioembolic. - will plan on starting Eliquis 5 mg bid around 2 weeks from stroke onset due to moderate size/presence of HT, around 07/15/18 if stable from GI perspective - appreciate GI assistance for EGD/colonoscopy possibly today - continue ASA until Eliquis started, Atorvastatin 40, Lisinopril and Cardizem - appreciate endocrine assistance with uncontrolled diabetes - PT/OT/PMNR following, anticipate d/c to inpatient facility likely tomorrow Keyshawn Quiñones MD * Irma Blakely, OT - 07/07/2018 11:30 AM CDT OCCUPATIONAL THERAPY Patient politely declined participation in occupational therapy session. Patient reports he is leaving for colonoscopy soon. OT will continue to follow and provide intervention as indicated. Irma Blakely, OTR/L [id number] * Whit Guadarrama MS,CCC-ELECTRIC RELAY TESTER - 07/07/2018 9:50 AM CDT SPEECH-LANGUAGE PATHOLOGY NO TREATMENT NOTE Chart reviewed and discussed in interdisciplinary rounds. Pt NPO for colonoscopy this date. ELECTRIC RELAY TESTER will continue to follow. Therapist: Whit Guadarrama MS,CCC-ELECTRIC RELAY TESTER [id number] Date: 07/07/2018 * Shira Welch, RN - 07/07/2018 5:22 AM CDT Pt stools watery and yellow at this time. No large particles noted. Encouraged pt to finish bowel prep, pt refusing at this time. Will continue to encourage pt finish prep. * Barbi Deluna MD - 07/06/2018 2:55 PM CDT Formatting of this note may be different from the original. 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 A1c 17 - Our goal is to avoid hypoglycemia and to prevent hyperglycemia during hospitalization. - Goal BS 100-140 fasting and 140-180 during the day. - Continue lantus 30 units daily - Increase novolog to 6 units post meal, tid - Continue novolog LDCF -Will discuss with patient regarding discharge regiment and discuss with follow up plan - Patient will follow up with local endocrinology in [facility] Subjective Valdez Anthony is a 57 y.o. male. Pt reports feeling better. He is eating slightly better. No hypoglycemia. ROS: no chest pain, SOB, N&V. Medications Scheduled Meds: [START ON 07/07/2018] aspirin chewable tablet 81 mg 81 mg Oral QDAY atorvastatin (LIPITOR) tablet 40 mg 40 mg Oral QHS diltiazem(#) (cardIZEM) solution 30 mg 30 mg Oral Q6H heparin (porcine) PF syringe 5,000 Units 5,000 Units Subcutaneous Q8H insulin aspart U-100 (NOVOLOG FLEXPEN) injection PEN 0-7 Units 0-7 Units Subcutaneous ACHS insulin aspart U-100 (NOVOLOG FLEXPEN) injection PEN 4 Units 4 Units Subcutaneous TID after meals insulin glargine (LANTUS SOLOSTAR, BASAGLAR) injection PEN 30 Units 30 Units Subcutaneous QDAY [START ON 07/07/2018] lisinopril (PRINIVIL; ZESTRIL) tablet 20 mg 20 mg Oral QDAY nortriptyline (PAMELOR) capsule 10 mg 10 mg Oral QHS polyethylene glycol 3350 (MIRALAX) packet 17 g 1 packet Oral QDAY QUEtiapine (SEROQUEL) tablet 25 mg 25 mg Oral BID senna/docusate (SENOKOT-S) solution 10 mL 10 mL Oral BID Continuous Infusions: PRN and Respiratory Meds:acetaminophen Q6H PRN, bisacodyl QDAY PRN, hydrALAZINE Q6H PRN, labetalol (NORMODYNE; TRANDATE) injection Q6H PRN Objective Vital Signs: Last Filed Vital Signs: 24 Hour Range BP: 135/47 (07/06 1316) Temp: 36.7 C (98.1 F) (07/06 1316) Pulse: 90 (07/06 1316) Respirations: 14 PER MINUTE (07/06 1316) SpO2: 98 % (07/06 1316) O2 Delivery: None (Room Air) (07/06 1316) BP: (130-153)/(47-61) Temp: [36.2 C (97.1 F)-37.3 C (99.2 F)] Pulse: [71-108] Respirations: [14 PER MINUTE-18 PER MINUTE] SpO2: [96 %-98 %] O2 Delivery: None (Room Air) Intensity Pain Scale (Self Report): 10 (07/05/18 1820) Vitals: 07/01/18 1445 Weight: 71.6 kg (157 lb 13.6 oz) Intake/Output Summary: (Last 24 hours) Intake/Output Summary (Last 24 hours) at 07/06/18 1455 Last data filed at 07/06/18 1316 Gross per 24 hour Intake 800 ml Output 3175 ml Net -2375 ml Physical Exam General appearance: alert and cooperative Neurologic: Grossly normal Lungs: breathing comfortably Extremities: extremities normal, atraumatic, no cyanosis or edema Lab Review 24-hour labs: Results for orders placed or performed during the hospital encounter of (from the past 24 hour(s)) POC GLUCOSE Collection Time: 07/05/18 4:37 PM Result Value Ref Range Glucose, POC 79 70 - 100 MG/DL URINALYSIS DIPSTICK REFLEX TO CULTURE Collection Time: 07/05/18 6:45 PM Result Value Ref Range Color,UA YELLOW Turbidity,UA 2+ (A) CLEAR-CLEAR Specific [place]-Urine 1.017 1.003 - 1.035 pH,UA 5.0 5.0 - 8.0 Protein,UA 2+ (A) NEG-NEG Glucose,UA 1+ (A) NEG-NEG Ketones,UA NEG NEG-NEG Bilirubin,UA NEG NEG-NEG Blood,UA NEG NEG-NEG Urobilinogen,UA NORMAL NORM-NORMAL Nitrite,UA NEG NEG-NEG Leukocytes,UA 1+ (A) NEG-NEG Urine Ascorbic Acid, UA NEG NEG-NEG URINALYSIS MICROSCOPIC REFLEX TO CULTURE Collection Time: 07/05/18 6:45 PM Result Value Ref Range WBCs,UA 2-10 0 - 2 /HPF RBCs,UA 10-20 0 - 3 /HPF Comment,UA Urine submitted for reflex culture if criteria are met:WBC>10, positive nitrite and/or >=1+ leukocyte esterase. If quantity is not sufficient, an addendum will follow. MucousUA 1+ Squamous Epithelial Cells 0-2 0 - 5 CULTURE-URINE W/SENSITIVITY Collection Time: 07/05/18 6:45 PM Result Value Ref Range Battery Name URINE CULTURE Specimen Description URINE Special Requests NONE Culture NO GROWTH Report Status FINAL 07/06/2018 POC GLUCOSE Collection Time: 07/05/18 8:15 PM Result Value Ref Range Glucose, POC 81 70 - 100 MG/DL POC GLUCOSE Collection Time: 07/05/18 9:37 PM Result Value Ref Range Glucose, POC 77 70 - 100 MG/DL HEMOGLOBIN Collection Time: 07/05/18 9:40 PM Result Value Ref Range Hemoglobin 10.1 (L) 13.5 - 16.5 GM/DL POC GLUCOSE Collection Time: 07/05/18 10:09 PM Result Value Ref Range Glucose, POC 89 70 - 100 MG/DL POC GLUCOSE Collection Time: 07/06/18 2:35 AM Result Value Ref Range Glucose, POC 132 (H) 70 - 100 MG/DL BASIC METABOLIC PANEL Collection Time: 07/06/18 4:27 AM Result Value Ref Range Sodium 138 137 - 147 MMOL/L Potassium 3.8 3.5 - 5.1 MMOL/L Chloride 103 98 - 110 MMOL/L CO2 26 21 - 30 MMOL/L Anion Gap 9 3 - 12 Glucose 146 (H) 70 - 100 MG/DL Blood Urea Nitrogen 9 7 - 25 MG/DL Creatinine 1.18 0.4 - 1.24 MG/DL Calcium 8.5 8.5 - 10.6 MG/DL eGFR Non >60 >60 mL/min eGFR >60 >60 mL/min CBC Collection Time: 07/06/18 4:27 AM Result Value Ref Range White Blood Cells 11.3 (H) 4.5 - 11.0 K/UL RBC 3.05 (L) 4.4 - 5.5 M/UL Hemoglobin 9.3 (L) 13.5 - 16.5 GM/DL Hematocrit 27.1 (L) 40 - 50 % MCV 88.8 80 - 100 FL MCH 30.5 26 - 34 PG MCHC 34.4 32.0 - 36.0 G/DL RDW 14.2 11 - 15 % Platelet Count 487 (H) 150 - 400 K/UL MPV 8.6 7 - 11 FL HEMOGLOBIN Collection Time: 07/06/18 4:27 AM Result Value Ref Range Hemoglobin 9.1 (L) 13.5 - 16.5 GM/DL POC GLUCOSE Collection Time: 07/06/18 7:29 AM Result Value Ref Range Glucose, POC 130 (H) 70 - 100 MG/DL POC GLUCOSE Collection Time: 07/06/18 11:49 AM Result Value Ref Range Glucose, POC 153 (H) 70 - 100 MG/DL HEMOGLOBIN Collection Time: 07/06/18 1:31 PM Result Value Ref Range Hemoglobin 8.9 (L) 13.5 - 16.5 GM/DL POC GLUCOSE Collection Time: 07/06/18 2:36 PM Result Value Ref Range Glucose, POC 196 (H) 70 - 100 MG/DL Point of Care Testing (Last 24 hours) Recent Labs 07/05/18 1637 07/05/18 2015 07/05/18 2137 07/05/18 2209 07/06/18 0235 07/06/18 0729 07/06/18 1149 07/06/18 1436 GLUPOC 79 81 77 89 132* 130* 153* 196* Radiology and other Diagnostics Review: none Barbi Deluna MD P [id number] * James Shook, - 07/06/2018 2:53 PM CDT Formatting of this note may be different from the original. Neurology Progress Note Today's Date: 07/06/2018 Name: Valdez Anthony Admission Date: 07/01/2018 LOS: 5 days Assessment/Plan: Principal Problem: Stroke (HCC) Active Problems: HTN (hypertension) Diabetes (HCC) Anemia Agitation Mr. Caal a 57 y/oW M w/ new onset AFib, HTN, HLD, T2DM, diabetic retinopathy, OD blindness, neovascular glaucoma, prostate cancer s/p prostatectomy who presents to [facility] as a transfer from [facility] for stroke. OSH course: Pt presented to OSH for fatigue, SOB. Found to have UTI, w/ concern for urosepsis, BG 600s -> placed on insulin gtt. Pt was admitted to ICU there, where he shortly developed afib w/ RVR and placed on cardizem/heparin gtt. Heparin gtt was then stopped while here because of concern for possible GI bleed w/ sudden drop in Hgb. EGD 06/29 showed s/p polypectomy, no active bleeding. Pt also developed urinary retention during admission there as well, where urology was consulted and suprapubic catheter was placed. Pt then suddenly was noted to have aphasia, L hemiparesis, and decreased LOC. LKN unknown. Did not received tPA given unclear window. Was transferred to [facility] for evaluation. Was given ativan 2mg enroute for agitation. NEICU/stroke course: NIHSS 34 here for dysarthria, aphasia, neglect, L hemiparesis w/ R sided weakness, partial visual deficit, decreased LOC. CTA showed R M1 occlusion, CTP w/ 50% volume mismatch. S/p EVT w/ TICI3. Developed post-procedural somnolence. Repeat CT head was done that showed R lentiform nucleus hemorrhage. MRI head showed b/l temporal lobe infarct, R insular cortex infarct, and small areas of hemorrhagic conversion. Was started on ASA in the ICU. Was placed on cardizem and insulin gtt. Endocrine consulted for insulin gtt management and pt was successfully transitioned to subQ insulin. Pt was also taken on cardizem gtt as well. Transitioned to floor status following stabilization. #R MCA infarct w/ b/l temporal lobe infarct, R insular cortex; hemorrhagic conversion - Etiology likely cardioembolic w/ AFib noted on OSH - BP goal BP <130/80 - 81mg ASA daily for antiplatelet - LDL 44, Hgb A1c 17.4 with goal <7.0 - Will hold on AC until 2 weeks after stroke -> 07/15 - Echocardiogram: 60% EF, LA size 3.5cm, no thrombus - ELECTRIC RELAY TESTER following -> recommend regular diet w/ nectar thick liquids - PT/OT following: recommend inpatient setting - Rehab Medicine: Disposition recommendation is pending -> needs to follow 2 step commands prior to recommending IPR > increase lisinopril 40, continue lipitor 40 > DM management as below > Continue ASA for now; plan for AC as above > f/u rehab recs for placement; PT/OT following #Acute blood loss anemia #Normocytic anemia - Progressive decline in Hgb (9.8 on admission, 7.2 on 07/03) -> s/p 1 unit RBCs - Heme occult pending (hasn't had a bowel movement) - Iron studies w/ elevated ferritin, low Fe -> consistent w/ ACD - Pt has not reported any bleeding - Hgb stably ~9-10; however, did drop from 10.1 -> 8.9 07/06 - EGD 06/29 showed changes s/ps polypectomy, no reported active bleeding > f/u heme occult, however will placed GI consult for possible EGD (inpt vs outpt) > Will hold AC for now, plan to restart 2 weeks from stroke onset #Peripheral neuropathy - pt reporting significant RLE pain, start lidocaine gel and nortriptyline 10mg #DMII #Reportedly in DKA @ OSH - Off insulin gtt - a1c 17.4 - Endocrine consulted for management > Continue 30U lantus QHS, 4U aspart TIDAC > pt to f/u w/ endo @ [facility] outpt basis -> goal BS 100-140 fasting and 140 -180 during the day #Constipation > PRN bowel regimen, will given suppository for BM #Agitation; seroquel 25mg BID PO #Urosepsis (resolved): - WBC count fluctuating, 13.4 on 07/03 -> possibly reactive - Blood cultures with negative growth - UA negative for UTI - Rocephin 07/01 - 07/05 FEN: nectar thick PO fluids, replace lytes PRN, ADA diet Ppx: [id number] Heparin Sq Q8, SCDs Code: Full Dispo: continue admission to neuro for stroke/concern for GI bleed -> likely inpatient setting early next week Patient was seen and discussed with Dr. Quiñones. James Shook, PGY-2 Subjective: Valdez Anthony is a 57 y.o. male. Pt seen and examined at bedside this AM. Pt following simple commands this AM. States that he wants to drink milk. Otherwise w/o acute complaints. No overnight events this AM. Hgb 10.1 -> 9.6 -> 9.1 -> 8.9. No active signs of bleeding noted. Objective: Scheduled Meds: [START ON 07/07/2018] aspirin chewable tablet 81 mg 81 mg Oral QDAY atorvastatin (LIPITOR) tablet 40 mg 40 mg Oral QHS diltiazem(#) (cardIZEM) solution 30 mg 30 mg Oral Q6H heparin (porcine) PF syringe 5,000 Units 5,000 Units Subcutaneous Q8H insulin aspart U-100 (NOVOLOG FLEXPEN) injection PEN 0-7 Units 0-7 Units Subcutaneous ACHS insulin aspart U-100 (NOVOLOG FLEXPEN) injection PEN 4 Units 4 Units Subcutaneous TID after meals insulin glargine (LANTUS SOLOSTAR, BASAGLAR) injection PEN 30 Units 30 Units Subcutaneous QDAY [START ON 07/07/2018] lisinopril (PRINIVIL; ZESTRIL) tablet 20 mg 20 mg Oral QDAY nortriptyline (PAMELOR) capsule 10 mg 10 mg Oral QHS polyethylene glycol 3350 (MIRALAX) packet 17 g 1 packet Oral QDAY QUEtiapine (SEROQUEL) tablet 25 mg 25 mg Oral BID senna/docusate (SENOKOT-S) solution 10 mL 10 mL Oral BID Continuous Infusions: PRN and Respiratory Meds:acetaminophen Q6H PRN, bisacodyl QDAY PRN, hydrALAZINE Q6H PRN, labetalol (NORMODYNE; TRANDATE) injection Q6H PRN Vital Signs: Last Filed Vital Signs: 24 Hour Range BP: 135/47 (07/06 131) Temp: 36.7 C (98.1 F) (07/06 131) Pulse: 90 (07/06 131) Respirations: 14 PER MINUTE (07/06 1316) SpO2: 98 % (07/06 1316) O2 Delivery: None (Room Air) (07/06 1316) BP: (130-153)/(47-61) Temp: [36.2 C (97.1 F)-37.3 C (99.2 F)] Pulse: [71-108] Respirations: [14 PER MINUTE-18 PER MINUTE] SpO2: [96 %-98 %] O2 Delivery: None (Room Air) Intensity Pain Scale (Self Report): 10 ICP Monitoring: Intake/Output Summary: (Last 24 hours) Intake/Output Summary (Last 24 hours) at 07/06/18 1453 Last data filed at 07/06/18 1316 Gross per 24 hour Intake 800 ml Output 3175 ml Net -2375 ml Physical Exam: General: NAD, laying in bed, thin and somewhat disheveled appearing HEENT: normocephalic, atraumatic, sclera w/ mild injection OU Mental status: alert, awake, following simple commands, answering questions, oriented to person, place, time (however, was just recently asked these questions and provided answers by ELECTRIC RELAY TESTER) Speech: slurred speech w/ comprehension intact to simple statements, fluency intact CN: L mild lower facial droop, EOMI OU Motor: no fasiculations, RUE/RLE 5/5, 4/5 L elbow flex/ext, 4-/5 L shoulder abd , 4+/5 L wrist ext/flex, 4/5 L hip flex, 4/5 knee ext/flex, 4/5 L dorsiflex/ plantar flex Sensation reduced to LT LUE/LLE Laboratory Review: 24-hour labs: Results for orders placed or performed during the hospital encounter of (from the past 24 hour(s)) POC GLUCOSE Collection Time: 07/05/18 4:37 PM Result Value Ref Range Glucose, POC 79 70 - 100 MG/DL URINALYSIS DIPSTICK REFLEX TO CULTURE Collection Time: 07/05/18 6:45 PM Result Value Ref Range Color,UA YELLOW Turbidity,UA 2+ (A) CLEAR-CLEAR Specific [place]-Urine 1.017 1.003 - 1.035 pH,UA 5.0 5.0 - 8.0 Protein,UA 2+ (A) NEG-NEG Glucose,UA 1+ (A) NEG-NEG Ketones,UA NEG NEG-NEG Bilirubin,UA NEG NEG-NEG Blood,UA NEG NEG-NEG Urobilinogen,UA NORMAL NORM-NORMAL Nitrite,UA NEG NEG-NEG Leukocytes,UA 1+ (A) NEG-NEG Urine Ascorbic Acid, UA NEG NEG-NEG URINALYSIS MICROSCOPIC REFLEX TO CULTURE Collection Time: 07/05/18 6:45 PM Result Value Ref Range WBCs,UA 2-10 0 - 2 /HPF RBCs,UA 10-20 0 - 3 /HPF Comment,UA Urine submitted for reflex culture if criteria are met:WBC>10, positive nitrite and/or >=1+ leukocyte esterase. If quantity is not sufficient, an addendum will follow. MucousUA 1+ Squamous Epithelial Cells 0-2 0 - 5 CULTURE-URINE W/SENSITIVITY Collection Time: 07/05/18 6:45 PM Result Value Ref Range Battery Name URINE CULTURE Specimen Description URINE Special Requests NONE Culture NO GROWTH Report Status FINAL 07/06/2018 POC GLUCOSE Collection Time: 07/05/18 8:15 PM Result Value Ref Range Glucose, POC 81 70 - 100 MG/DL POC GLUCOSE Collection Time: 07/05/18 9:37 PM Result Value Ref Range Glucose, POC 77 70 - 100 MG/DL HEMOGLOBIN Collection Time: 07/05/18 9:40 PM Result Value Ref Range Hemoglobin 10.1 (L) 13.5 - 16.5 GM/DL POC GLUCOSE Collection Time: 07/05/18 10:09 PM Result Value Ref Range Glucose, POC 89 70 - 100 MG/DL POC GLUCOSE Collection Time: 07/06/18 2:35 AM Result Value Ref Range Glucose, POC 132 (H) 70 - 100 MG/DL BASIC METABOLIC PANEL Collection Time: 07/06/18 4:27 AM Result Value Ref Range Sodium 138 137 - 147 MMOL/L Potassium 3.8 3.5 - 5.1 MMOL/L Chloride 103 98 - 110 MMOL/L CO2 26 21 - 30 MMOL/L Anion Gap 9 3 - 12 Glucose 146 (H) 70 - 100 MG/DL Blood Urea Nitrogen 9 7 - 25 MG/DL Creatinine 1.18 0.4 - 1.24 MG/DL Calcium 8.5 8.5 - 10.6 MG/DL eGFR Non >60 >60 mL/min eGFR >60 >60 mL/min CBC Collection Time: 07/06/18 4:27 AM Result Value Ref Range White Blood Cells 11.3 (H) 4.5 - 11.0 K/UL RBC 3.05 (L) 4.4 - 5.5 M/UL Hemoglobin 9.3 (L) 13.5 - 16.5 GM/DL Hematocrit 27.1 (L) 40 - 50 % MCV 88.8 80 - 100 FL MCH 30.5 26 - 34 PG MCHC 34.4 32.0 - 36.0 G/DL RDW 14.2 11 - 15 % Platelet Count 487 (H) 150 - 400 K/UL MPV 8.6 7 - 11 FL HEMOGLOBIN Collection Time: 07/06/18 4:27 AM Result Value Ref Range Hemoglobin 9.1 (L) 13.5 - 16.5 GM/DL POC GLUCOSE Collection Time: 07/06/18 7:29 AM Result Value Ref Range Glucose, POC 130 (H) 70 - 100 MG/DL POC GLUCOSE Collection Time: 07/06/18 11:49 AM Result Value Ref Range Glucose, POC 153 (H) 70 - 100 MG/DL HEMOGLOBIN Collection Time: 07/06/18 1:31 PM Result Value Ref Range Hemoglobin 8.9 (L) 13.5 - 16.5 GM/DL POC GLUCOSE Collection Time: 07/06/18 2:36 PM Result Value Ref Range Glucose, POC 196 (H) 70 - 100 MG/DL Point of Care Testing: (Last 24 hours): FSBS (Manual): 81 (07/05/182015) Glucose: (!) 146 (07/06/18 0427) POC Glucose (Download): (!) 196 (07/06/18 1436) Radiology and Other Diagnostics Review: Pertinent radiology reviewed. James Shook, DO Associated attestation - Keyshawn Quiñones MD - 07/06/2018 3:38 PM CDT Attending Addendum: I have personally interviewed and examined Valdez Anthony and reviewed the history, examination, impression, and plan of care as outlined by Dr. Shook. I spent 40 minutes with the patient, with 25 minutes in counseling and coordination of care. I agree with the assessment and plan as documented with the following addendum: Mr. Anthony is a 57 year old man with history of diabetes, HTN, who was admitted to [facility] on 06/29/18 with urosepsis and DKA and found to be in Afib at that time and started on anticoagulation, which was then held, after which he had acute onset of L sided weakness and aphasia on 07/01/18 (did not get IV tPA due to out of window), transferred to [facility] and found to have R M1 occlusion s/p TICI 3 thrombectomy. He was monitored in ICU and then transferred to floor, and has been improving with his exam. He continues to have some weakness in left side and memory issues per but otherwise he feels well. Of note, he has had drop in Hgb during hospitalization. Exam: Alert, fully oriented. No aphasia, mild dysarthria. L lower facial droop. Intact visual munoz. LUE and LLE about 4-4+/5, R side intact. Decreased touch on LUE/LLE. MRI brain with acute stroke in R MCA territory moderate size with smaller area of infarct in L temporal lobe. Some petechial hemorrhagic transformation in R MCA infarct bed. CTA head/neck with some narrowing of L intracranial ICA. LDL 44, A1c 17.4, TTE unremarkable. Etiology of stroke likely cardioembolic. - will plan on starting Eliquis 5 mg bid around 2 weeks from stroke onset due to moderate size/presence of HT, around 07/15/18 if stable from GI perspective - Hgb stable today around 9, will consult GI team for potential scope prior to restarting anticoagulation - continue ASA until Eliquis started, Atorvastatin 40, Lisinopril and Cardizem - appreciate endocrine assistance with uncontrolled diabetes - PT/OT/PMNR following, anticipate d/c to inpatient facility after GI plan established Keyshawn Quiñones MD * Whit Guadarrama MS,CCC-ELECTRIC RELAY TESTER - 07/06/2018 12:14 PM CDT Formatting of this note may be different from the original. SPEECH-LANGUAGE PATHOLOGY COGNITIVE-COMMUNICATION ASSESSMENT EVALUATION SUMMARY Pt seen for cognitive communication evaluation utilizing the Wade Cognitive Assessment (MOCA) as well as other informal measures. Standard score not reported as the full assessment was not completed. Findings suggest at least moderate cognitive communication impairment. Pt with visual acuity deficits at baseline associated with glaucoma. Areas of difficulty identified in the MOCA included: naming, memory/delayed recall, attention, language, abstraction, and orientation Informal assessment of verbal problem solving suggests: impaired problem solving. . Please see further details below. RECOMMENDATIONS Regular Solids w/ NECTAR thick modifier w/ risk for aspiration. 100% supervision w/ PO intake. PO medications crushed in puree. Swallow Strategies: Small, single sips at a time via cup (no straws), sit 90 degrees upright, slow rate of intake. Please cease PO intake if pt demonstrates consistent, overt s/s of aspiration. Ongoing speech therapy to address dysphagia and cognitive communication concerns. Ongoing ELECTRIC RELAY TESTER at next level of care. Consistent supervision recommended upon discharge as anticipate patient's impaired memory & attention will potentially impact their safety. Recommend assist w/ finance & medication management and meal preparation upon discharge secondary to patient's impaired attention and/or memory. PRAGMATICS Comments*: Decreased eye contact; noted to cover face with a blanket for the majority of the session if not directly asked to show his face. BEHAVIOR Comments*: Increased processing time and need for repetition of information noted. Tangential comments were prevalent. Perseveration noted. AUDITORY COMPREHENSION Comments*: No focal language deficits noted. ORIENTATION Comments*: pt oriented to person only. For temporal orientation, pt accurately stated month. He did not accurately state date, year (stated year was 2088), or day of the week. For spatial ordination, pt did not accurately state place or city, stating we are located at [address]. Verbal Problem Solving Comments: Functional problem solving: pt identified the existence of a problem with minimal cues. He generated appropriate solutions with moderate cues. He independently stated emergency number. He did have difficulty dialing emergency number on request, which is likely baseline due to baseline visual acuity impairment. Pt reportedly has a shortcut on his cell phone for 911 and has a life alert button at baseline to call for assistance if needed. Wade Cognitive Assessment (MoCA), Version 7.1 Subtest / MOCA item Patient Score Norm (SD) Comments Visuospatial/ Executive Function Trails DNT/1 0.87 (.34) deferred due to pt with visual deficits at based due to glaucoma Cube DNT/1 0.71 (.46) deferred due to pt with visual deficits at based due to glaucoma Clock DNT/3 2.65 (.65) deferred due to pt with visual deficits at based due to glaucoma Naming 2/3 2.88 (.36) giraffe for camel Attention Digit Span 1/2 1.82 (.44) missed point for digit span reversed Letter A 0/1 0.97 (0.18) missed As and then false positives Serial 7 0/3 2.89 (.041) no accurate calculations Language Sentence Repetition 0/2 1.83 (.37) Fluency 0/1 0.87 (.34) named 2, average is 11 items Abstraction 1/2 1.83 (.43) Delayed Recall 1/5 3.73 (1.27) recalled 1/5 words Orientation 1/6 5.99 (.11) accurately stated month. Missed points for date , year, date, place, city Prognosis: Fair, Good Plan: Other (Comment), Patient Would Benefit from Further Speech Therapy Post Acute Hospitalization. (3-5x/wk) Results Reported to Physician: Yes Objective* Relevant Med Background: 57 y.o. male with new onset Atrial Fibrillation with RVR, HTN, HLD, T2DM, Diabetic Retinopathy, OD Blindness, Neovascular Glaucoma, Prostate Cancer s/p prostatectomy, Urinary Retention s/p suprapubic catheter that was admitted at [facility] for urosepsis, DKA, A fib with RVR requiring cardizem ggt that was transferred for concerns for stroke. Patient found to have a R M1 occlusion. He underwent endovascular thrombectomy which was successful, TICI 3. MRI with bilateral temporal lobe infarcts, R insular cortex, R insular cortex, infarcts and small areas of hemorrhagic conversion. MRI haed 07/01 impressions 1. Redemonstration of a right MCA infarct, [...] the posterior medial left temporal lobe. 3. Denominational of flow void within the right M1 segment, previously noted to be occluded. Handedness: Right Lives With: Spouse Psychosocial Status: Participates in Therapy with Encouragement Persons Present: Spouse Subjective* Pain: Patient complains of pain, Patient does not rate pain Trach Presence: No Feeding Tube Present During Eval: None Education* Persons Educated: Pt/Family Barriers To Learning: Cognitive Deficits Interventions: Staff Educated, Family Educated Teaching Methods: Verbal Topics: Memory Patient Response: Verbalized Understanding Cognitive Goals* Goal : Pt will participate in ongoing assessment of cognitive communication skills given minimal cues to participate. Goal : Pt will attend to structured task for 5 minutes given minimal cues for redirection. Goal : Pt will demonstrate orientation x4 given moderate cues. Goal : Pt will participate in PO trials of thin liquids via spoon/cup and pureed /mech soft solids w/ ELECTRIC RELAY TESTER only w/ less than 5% s/s of aspiration. Not addressed Comments: not addressed. Pt with intermittent throat clear with nectar when not adhering to swallow precautions. Pt largely not agreeable to following swallow precautions of small bites/sips or slow rate, noted to impulsively take very large bites/sips. With strict adherence to precautions, pt tolerating diet well with no overt s/s aspiration. Continue to address Goal : Pt will participate in cognitive-communication assessment given mod cues. Goal met this date. Dc goal as met New goal: Pt will tolerate regular diet with nectar thick liquids with less than 10% overt s/s aspiration, cues to follow swallow precautions, and free from respiratory status changes. Therapist: Whit Guadarrama MS,[facility]-ELECTRIC RELAY TESTER [id number] Date: 07/06/2018 * Aria Mccoy, PT - 07/06/2018 10:43 AM CDT PHYSICAL THERAPY PROGRESS NOTE MOBILITY: Mobility Progressive Mobility Level: Walk in hallway Distance Walked (feet): 50 ft Level of Assistance: Assist X2 Assistive Device: Hand Held (x2) Time Tolerated: 11-30 minutes Activity Limited By: Mental Status Variability;Fatigue SUBJECTIVE: Significant hospital events: 57 y.o. male with new onset Atrial Fibrillation with RVR transferred from an OSH for stroke; found to have a R M1 occlusion; s/ p endovascular thrombectomy which was successful; MRI shows bilateral temporal lobe infarcts, R insular cortex, R insular cortex, infarcts and small areas of hemorrhagic conversion. Mental / Cognitive Status: Inconsistent with Command Following;Alert;Cooperative Persons Present: Spouse;RehabTechnician Pain: Patient has no complaint of pain Comments: PMH: HTN, HLD, T2DM, Diabetic Retinopathy, OD Blindness, Neovascular Glaucoma, Prostate Cancer s/p prostatectomy, Urinary Retention s/p suprapubic catheter that was admitted at [facility] for urosepsis, DKA, A fib with RVR requiring cardizem ggt Ambulation Assist: Independent Mobility in Community without Device Patient Owned Equipment: Single Point Cane;Roller Walker;4-Wheeled Walker Home Situation: Lives with Family Type of Home: House (Trailer home) Entry Stairs: 3-5 Stairs;Rail on 1 Side In-Home Stairs: No Stairs Comments: Spouse reports patient falls approximately 1 time per month related to poor balance. BED MOBILITY/TRANSFERS: Bed Mobility/Transfers Bed Mobility: Supine to Sit: Standby Assist;Verbal Cues;Head of Bed Elevated; Safety Considerations Transfer Type: Sit to/from Stand Transfer: Assistance Level: From;Bed;To;Bed Side Chair;Minimal Assist;x2 People Transfer: Assistive Device: Hand Hold Assist Transfers: Type Of Assistance: Verbal Cues;For Balance;For Strength Deficit;For Safety Considerations End Of Activity Status: Up in Chair;Nursing Notified;Instructed Patient to Request Assist with Mobility;Instructed Patient to Use Call Light BALANCE: Balance Sitting Balance: Static Sitting Balance;Standby Assist;2 UE Support;Minimal Assist Standing Balance: Static Standing Balance;2 UE support;Minimal Assist;Moderate Assist;x2 People GAIT: Gait Distance: 50 feet Gait: Assistance Level: Moderate Assist;Minimal Assist;Safety Considerations;x2 People Gait: Assistive Device: Hand Hold Assist (x2) Gait: Descriptors: Pace: Normal;Forward trunk flexion;Pathway deviations;Swing- Through Gait;Loss of balance;Decreased step length;Variable step length Comments: Pt present with variable step placement with increased assistance to maintain standing position. Activity Limited By: Complaint of Fatigue;Patient Choice ASSESSMENT/PROGRESS: Impaired Mobility Due To: Decreased Strength;Impaired Balance;Safety Concerns; Decreased Activity Tolerance;Deconditioning Assessment/Progress: Should Improve w/ Continued PT Comments: Pt presents with decreased safety awareness, impulsive behavior, and continues to comment about wanting a cold beverage. Pt present with decreased stability during ambulation and sitting edge of bed. Pt given increased verbal cues to remind of safety and direct activity. AM-PAC 6 Clicks Basic Mobility Inpatient Turning from your back to your side while in a flat bed without using bed rails : None Moving from lying on your back to sitting on the side of a flatbed without using bedrails : A Little Moving to and from a bed to a chair (including a wheelchair): A Little Standing up from a chair using your arms (e.g. wheelchair, or bedside chair): A Little To walk in hospital room: A Lot Climbing 3-5 steps with a railing: A Lot Raw Score: 17 Standardized (T-scale) Score: 39.67 Basic Mobility CMS 0-100%: 43.83 CMS G Code Modifier for Basic Mobility: CK GOALS: Goals Goal Formulation: With Patient/Family Time For Goal Achievement: 7 days Pt Will Go Supine To/From Sit: w/ Moderate Assist Pt Will Transfer Sit to Stand: w/ Moderate Assist Pt Will Ambulate: 11-30 Feet, w/ Walker, w/ Moderate Assist Pt Will Go Up / Down Stairs: 3-5 Stairs, w/ Moderate Assist PLAN: Treatment Interventions: Mobility Training;Strengthening;Balance Activities Plan Frequency: 5 Days per Week PT Plan for Next Visit: continue to progress ambulation distance with roller walker. balance assessment. RECOMMENDATIONS: PT Discharge Recommendations: Inpatient Setting Equipment Recommendations: Too early to be determined Recommend ongoing assistance for: Safety concerns;In and out of house;Transfers; Bed mobility;Ambulation;Stairs Therapist: Aria Mccoy, PT Date: 07/06/2018 * Marilu Ralph - 07/05/2018 2:42 PM CDT SPEECH-LANGUAGE PATHOLOGY DAILY TREATMENT NOTE Patient seen 1x this date. Documentation reflects all daily treatment sessions. SUMMARY OF THERAPY SESSION: Swallow treatment completed. Mild-moderate oropharyngeal dysphagia due to recent CVA, baseline dysphagia per pt/family report, and behavior/cognitive deficits. Per RN, ongoing improvement in alertness level over weekend and appears to be tolerating PO diet well. Pt expresses distaste for full-liquid options and thickened liquids. With encouragement, pt participated in swallow treatment. No s/s of aspiration with nectar thick liquids. Timely and effective mastication with regular solids. Determined to be appropriate for upgrade of solids. Please see below for details/recommendations. RECOMMENDATIONS Regular Solids w/ NECTAR thick modifier w/ risk for aspiration. 100% supervision w/ PO intake. PO medications crushed in puree. Swallow Strategies: Small, single sips at a time via cup (no straws), sit 90 degrees upright, slow rate of intake. Please cease PO intake if pt demonstrates consistent, overt s/s of aspiration. Ongoing speech therapy to address dysphagia concerns. Pt will benefit from cognitive-communication evaluation in near future. Goal : Pt will tolerate full liquid diet w/ NECTAR thick modifier w/ less than 5 % s/s of aspiration and w/o negative pulmonary status changes. Met Comments: Rn reports no concerns with current PO diet, but states pt is very frustrated with full liquid diet limitations. Pt was not agreeable to trialing pureed solids and bedside. Required encouragement to take small sip x1 of nectar thick liquids with no s/s of aspiration. Discharge as met Goal : Pt will participate in PO trials of thin liquids via spoon/cup and pureed /mech soft solids w/ ELECTRIC RELAY TESTER only w/ less than 5% s/s of aspiration. Partly met Comments: Pt not agreeable to trialing thin liquids today, despite encouragement. Pt agreeable to trials of mech soft and regular solids. With each consistency, pt exhibits timely and effective mastication. Required minimal cueing to maintain attention on task of mastication, as pt was very frustrated at time of session. Pt exhibits no oral residue after swallow and no s/s of aspiration with solids requiring mastication. Determined to be appropriate for upgrade of solids. Continue to address Goal : Pt will participate in cognitive-communication assessment given mod cues. Not addressed Continue to address in future sessions PLAN / RECOMMENDATIONS: Continue treatment 3-5x/week and Patient would benefit from further speech therapy post acute hospitalization. Therapist: Cesia Hatfield/CCC-ELECTRIC RELAY TESTER (Pager [phone]; Voalte: [phone]) Date: 07/05/2018 * Darcy Goodrich MD - 07/05/2018 10:03 AM CDT Formatting of this note may be different from the original. Neurology Progress Note Name: Valdez Anthony Today's Date: 07/05/2018 Admission Date: 07/01/2018 LOS: 4 days Assessment/Plan: Principal Problem: Stroke (HCC) Active Problems: HTN (hypertension) Diabetes (HCC) Anemia Agitation Mr. Caal a 57 y.o.male with new onset Atrial Fibrillation with RVR, HTN , HLD, T2DM, Diabetic Retinopathy, OD Blindness, Neovascular Glaucoma, Prostate Cancer s/p prostatectomy, Urinary Retention s/p suprapubic catheter that was admitted at [facility] for urosepsis, DKA, A fib with RVR requiring cardizem ggt that was transferred for concerns for stroke. Patient found to have a R M1 occlusion. He underwent endovascular thrombectomy which was successful, TICI 3. MRI with bilateral temporal lobe infarcts, R insular cortex infarct and small areas of hemorrhagic conversion. Etiology likely cardio- embolic. 9/14 Exam: Disoriented, limited verbalization. Currently he has left facial asymmetry, dense left hemiparesis and dysarthria. He follows commands but is impulsive and pulling at his lines, thus he is in medical restraints. Plan: Acute Ischemic Stroke: - HTN: BP goal BP <130/80 - Lisinopril 20mg Daily - 81mg ASA daily for antiplatelet - LDL is 44 at goal <70 - 40mg Atorvastatin daily - DM2: Hgb A1c 17.4 with goal <7.0 - Endocrine consulted for challenging glucose control, we appreciate their recs: - Goal BS 100-140 fasting and 140-180 during the day. - Continue insulin infusion ---> Discontinued on 07/04 - Lantus 30 units - Novolog 4 units post meal - LDCF - A-Fib: plan to start Apixaban on 07/06 - Echocardiogram: 60% EF, LA size 3.5cm, no thrombus - ELECTRIC RELAY TESTER to eval and treat - Video swallow on 07/03: ok for full liquids and nectar thick fluids - PT/OT following: recommend inpatient setting - Rehab Medicine: Disposition recommendation is pending Anemia: - Progressive decline in Hgb (9.8 on admission, 7.2 on 07/03) - Heme occult pending (hasn't had a bowel movement) - Iron studies pending - No observed abnormal bruising - Will trend Hgb with Q8 checks - Transfuse if Hgb <7.0 Constipation Start senokot and miralax Agitation: - Seroquel 25mg BID PO - May increase dose if agitation continues Urosepsis (resolved): - WBC count fluctuating, 13.4 on 07/03 - possibly reactive - Blood cultures with negative growth - UA negative for UTI - Rocephin 07/01 - 07/05 FEN: - [place] thick PO fluids - Daily BMP - Full Liquid diet Ppx: - DVT: 5000u Heparin Sq Q8 and SCD's to BLE Dispo: - Likely inpatient setting early next week Patient was seen and discussed with Dr. Gutierrez today Subjective Valdez Anthony is a 57 y.o. male. Patient with no acute overnight events. He has not had any bowel movements for the past few days and his intake has been poor. Medications Scheduled Meds: aspirin chewable tablet 81 mg 81 mg Per NG tube QDAY atorvastatin (LIPITOR) tablet 40 mg 40 mg Per NG tube QHS cefTRIAXone (ROCEPHIN) IVP 1 g 1 g Intravenous Q24H* diltiazem(#) (cardIZEM) solution 30 mg 30 mg Per NG tube Q6H docusate (COLACE) oral solution 100 mg 100 mg Per NG tube BID heparin (porcine) PF syringe 5,000 Units 5,000 Units Subcutaneous Q8H insulin aspart U-100 (NOVOLOG FLEXPEN) injection PEN 0-7 Units 0-7 Units Subcutaneous ACHS insulin aspart U-100 (NOVOLOG FLEXPEN) injection PEN 10 Units 10 Units Subcutaneous TID after meals insulin glargine (LANTUS SOLOSTAR, BASAGLAR) injection PEN 20 Units 20 Units Subcutaneous QDAY lisinopril (PRINIVIL; ZESTRIL) tablet 20 mg 20 mg Per NG tube QDAY QUEtiapine (SEROQUEL) tablet 25 mg 25 mg Oral BID senna/docusate (SENOKOT-S) solution 10 mL 10 mL Per NG tube BID Continuous Infusions: PRN and Respiratory Meds:acetaminophen Q6H PRN, bisacodyl QDAY PRN, hydrALAZINE Q6H PRN, labetalol (NORMODYNE; TRANDATE) injection Q6H PRN Objective Vital Signs: Last Filed Vital Signs: 24 Hour Range BP: 142/58 (07/05 952) Temp: 36.4 C (97.6 F) (07/05 952) Pulse: 96 (07/05 952) Respirations: 18 PER MINUTE (07/05 952) SpO2: 97 % (07/05 952) O2 Delivery: None (Room Air) (07/05 952) BP: (119-160)/(42-69) Temp: [36.4 C (97.6 F)-37.1 C (98.8 F)] Pulse: [54-100] Respirations: [15 PER MINUTE-22 PER MINUTE] SpO2: [90 %-100 %] O2 Delivery: None (Room Air) Vitals: 07/01/18 1445 Weight: 71.6 kg (157 lb 13.6 oz) Intake/Output Summary: (Last 24 hours) Intake/Output Summary (Last 24 hours) at 07/05/18 1003 Last data filed at 07/05/18 0940 Gross per 24 hour Intake 600 ml Output 2900 ml Net -2300 ml Physical Exam HEENT: normocephalic, atraumatic CV: regular rate Chest: normal configuration, equal chest rise bilaterally Skin: no rashes or lesions Neuro exam: MS: somnolent but rouses to voice Speech: fluent but dysarthric CN II-XII intact except L facial asymmetry Strength: 2/5 LUE, 2/5 LLE, 5/5 RUE/RLE Sensation: LT intact Lab Review Pertinent labs reviewed Point of Care Testing (Last 24 hours) Glucose: (!) 131 (07/05/18 0525) POC Glucose (Download): (!) 139 (07/05/18 0656) Radiology and other Diagnostics Review: Pertinent radiology reviewed. Darcy Goodrich MD Neurology PGY-4 Pager Neurology director special education pager [phone] Associated attestation - Diego Gutierrez MD - 07/05/2018 8:56 PM CDT Formatting of this note may be different from the original. ATTESTATION I personally performed the jacobs portions of the E/M visit, discussed case with resident and concur with resident documentation of history, physical exam, assessment, and treatment plan unless otherwise noted. I personally reviewed vitals, labs. Pertinent neuroradiological imagings were viewed. 57 male with new onset A. fib, presented with right M1 occlusion s/p EVT with TICI 3. Was initially restless/agitated. Currently doing much better with no significant weakness and more cooperative. On antibiotics for possible UTI5 days total, has chronic anemia with dropping of hemoglobin, received 1 PRBC [place] night, [facility], and from transferring OSH with endoscopy with no clear etiology. Getting stool occult, will consult GI if positive. Rehab disposition Hgb issue is cleared. Staff name: Diego Gutierrez MD Date: 07/05/2018 * John Chaudhry MD - 07/05/2018 10:02 AM CDT Formatting of this note may be different from the original. General Progress Note Admission Date: 07/01/2018 LOS: 4 days Assessment/Plan: Principal Problem: Stroke (HCC) Active Problems: HTN (hypertension) Diabetes (HCC) Anemia Agitation Admission Date: 07/01/2018 Principal Problem: Stroke (HCC) Active Problems: HTN (hypertension) Diabetes (HCC) Reason for consult:patient admitted for stroke, also was in DKA, BG difficult to control Type: Co-management w/signed orders Assessment: DM type 2 DKA resolved -A1c 17.4 on 07/01/2018 uncontrolled -PATTERN WORKER regimen: levemir 40 units QHS, Novolog 20-25 units with meals , metformin 1000 mg bid -Hypoglycemic episodes on this regimen: none -Follows up with for diabetes management: endocrinology - current steroid use : none Complications of DM: CAD: No CVA: Yes this admit PVD: No Amputations: No Retinopathy: Yes Gastropathy: No Nephropathy: Yes Neuropathy: Yes on Lyrica Afib Ischemic stroke - R MCA stroke : underwent stent-retriever/aspiration Urosepsis Recommendation Type 2 diabetes: - Poorly controlled diabetes prior to admission. A1c 17 - Our goal is to avoid hypoglycemia and to prevent hyperglycemia during hospitalization. - Goal BS 100-140 fasting and 140-180 during the day. -The patient was on 40 units of lantus and had two episodes of hypoglycemi We will reduce lantus to 30 units Give additional 10 units now and then 30 tomorrow Change the novolog to 4 units post meal -Will discuss with patient regarding discharge regiment and discuss with follow up plan - Patient will follow up with local endocrinology in [facility] This is an individual we are following for hyperglycemia. DM His glycemic control is improving. Subjective Valdez Anthony is a 57 y.o. male. Patient has had two cases of hypoglycemia. The patient is significantly improved mentally Medications Scheduled Meds: aspirin chewable tablet 81 mg 81 mg Per NG tube QDAY atorvastatin (LIPITOR) tablet 40 mg 40 mg Per NG tube QHS cefTRIAXone (ROCEPHIN) IVP 1 g 1 g Intravenous Q24H* diltiazem(#) (cardIZEM) solution 30 mg 30 mg Per NG tube Q6H docusate (COLACE) oral solution 100 mg 100 mg Per NG tube BID heparin (porcine) PF syringe 5,000 Units 5,000 Units Subcutaneous Q8H insulin aspart U-100 (NOVOLOG FLEXPEN) injection PEN 0-7 Units 0-7 Units Subcutaneous ACHS insulin aspart U-100 (NOVOLOG FLEXPEN) injection PEN 10 Units 10 Units Subcutaneous TID after meals insulin glargine (LANTUS SOLOSTAR, BASAGLAR) injection PEN 20 Units 20 Units Subcutaneous QDAY lisinopril (PRINIVIL; ZESTRIL) tablet 20 mg 20 mg Per NG tube QDAY QUEtiapine (SEROQUEL) tablet 25 mg 25 mg Oral BID senna/docusate (SENOKOT-S) solution 10 mL 10 mL Per NG tube BID Continuous Infusions: PRN and Respiratory Meds:acetaminophen Q6H PRN, bisacodyl QDAY PRN, hydrALAZINE Q6H PRN, labetalol (NORMODYNE; TRANDATE) injection Q6H PRN Objective Vital Signs: Last Filed Vital Signs: 24 Hour Range BP: 142/58 (07/05 952) Temp: 36.4 C (97.6 F) (07/05 952) Pulse: 96 (07/05 952) Respirations: 18 PER MINUTE (07/05 952) SpO2: 97 % (07/05 952) O2 Delivery: None (Room Air) (07/05 952) BP: (119-160)/(42-69) Temp: [36.4 C (97.6 F)-37.1 C (98.8 F)] Pulse: [54-100] Respirations: [15 PER MINUTE-22 PER MINUTE] SpO2: [90 %-100 %] O2 Delivery: None (Room Air) Vitals: 07/01/18 1445 Weight: 71.6 kg (157 lb 13.6 oz) Intake/Output Summary: (Last 24 hours) Intake/Output Summary (Last 24 hours) at 07/05/18 1002 Last data filed at 07/05/18 0940 Gross per 24 hour Intake 600 ml Output 2900 ml Net -2300 ml Physical Exam General appearance: alert and cooperative Neurologic: Grossly normal Lungs: clear to auscultation bilaterally Heart: regular rate and rhythm, S1, S2 normal, no murmur, click, rub or gallop Abdomen: soft, non-tender. Bowel sounds normal. No masses, no organomegaly Extremities: extremities normal, atraumatic, no cyanosis or edema Lab Review 24-hour labs: Results for orders placed or performed during the hospital encounter of (from the past 24 hour(s)) POC GLUCOSE Collection Time: 07/04/18 10:28 AM Result Value Ref Range Glucose, POC 144 (H) 70 - 100 MG/DL POC GLUCOSE Collection Time: 07/04/18 12:17 PM Result Value Ref Range Glucose, POC 59 (L) 70 - 100 MG/DL POC GLUCOSE Collection Time: 07/04/18 12:19 PM Result Value Ref Range Glucose, POC 66 (L) 70 - 100 MG/DL POC GLUCOSE Collection Time: 07/04/18 12:52 PM Result Value Ref Range Glucose, POC 66 (L) 70 - 100 MG/DL HEMOGLOBIN Collection Time: 07/04/18 1:15 PM Result Value Ref Range Hemoglobin 9.4 (L) 13.5 - 16.5 GM/DL POC GLUCOSE Collection Time: 07/04/18 1:16 PM Result Value Ref Range Glucose, POC 55 (L) 70 - 100 MG/DL POC GLUCOSE Collection Time: 07/04/18 1:42 PM Result Value Ref Range Glucose, POC 114 (H) 70 - 100 MG/DL POC GLUCOSE Collection Time: 07/04/18 2:19 PM Result Value Ref Range Glucose, POC 137 (H) 70 - 100 MG/DL IRON + BINDING CAPACITY + %SAT+ FERRITIN Collection Time: 07/04/18 2:20 PM Result Value Ref Range Iron 49 (L) 50 - 185 MCG/DL Iron Binding-TIBC 212 (L) 270 - 380 MCG/DL % Saturation 23 (L) 28 - 42 % Ferritin 383 (H) 30 - 300 NG/ML POC GLUCOSE Collection Time: 07/04/18 5:10 PM Result Value Ref Range Glucose, POC 96 70 - 100 MG/DL POC GLUCOSE Collection Time: 07/04/18 7:23 PM Result Value Ref Range Glucose, POC 44 (LL) 70 - 100 MG/DL POC GLUCOSE Collection Time: 07/04/18 7:50 PM Result Value Ref Range Glucose, POC 164 (H) 70 - 100 MG/DL POC GLUCOSE Collection Time: 07/04/18 9:15 PM Result Value Ref Range Glucose, POC 105 (H) 70 - 100 MG/DL HEMOGLOBIN Collection Time: 07/04/18 9:30 PM Result Value Ref Range Hemoglobin 13.5 13.5 - 16.5 GM/DL POC GLUCOSE Collection Time: 07/04/18 11:19 PM Result Value Ref Range Glucose, POC 84 70 - 100 MG/DL POC GLUCOSE Collection Time: 07/05/18 12:41 AM Result Value Ref Range Glucose, POC 121 (H) 70 - 100 MG/DL POC GLUCOSE Collection Time: 07/05/18 1:31 AM Result Value Ref Range Glucose, POC 94 70 - 100 MG/DL POC GLUCOSE Collection Time: 07/05/18 2:37 AM Result Value Ref Range Glucose, POC 103 (H) 70 - 100 MG/DL BASIC METABOLIC PANEL Collection Time: 07/05/18 5:25 AM Result Value Ref Range Sodium 137 137 - 147 MMOL/L Potassium 3.3 (L) 3.5 - 5.1 MMOL/L Chloride 104 98 - 110 MMOL/L CO2 25 21 - 30 MMOL/L Anion Gap 8 3 - 12 Glucose 131 (H) 70 - 100 MG/DL Blood Urea Nitrogen 7 7 - 25 MG/DL Creatinine 0.97 0.4 - 1.24 MG/DL Calcium 8.5 8.5 - 10.6 MG/DL eGFR Non >60 >60 mL/min eGFR >60 >60 mL/min POC GLUCOSE Collection Time: 07/05/18 5:29 AM Result Value Ref Range Glucose, POC 125 (H) 70 - 100 MG/DL CBC Collection Time: 07/05/18 5:50 AM Result Value Ref Range White Blood Cells 12.4 (H) 4.5 - 11.0 K/UL RBC 3.21 (L) 4.4 - 5.5 M/UL Hemoglobin 9.5 (L) 13.5 - 16.5 GM/DL Hematocrit 27.9 (L) 40 - 50 % MCV 86.9 80 - 100 FL MCH 29.6 26 - 34 PG MCHC 34.1 32.0 - 36.0 G/DL RDW 14.0 11 - 15 % Platelet Count 413 (H) 150 - 400 K/UL MPV 8.7 7 - 11 FL POC GLUCOSE Collection Time: 07/05/18 6:56 AM Result Value Ref Range Glucose, POC 139 (H) 70 - 100 MG/DL Point of Care Testing (Last 24 hours) FSBS (Manual): (!) 139 Glucose: (!) 131 POC Glucose (Download): (!) 139 Radiology and other Diagnostics Review: none John Chaudhry MD * Munira Ortega, DO - 07/04/2018 3:28 PM CDT Formatting of this note may be different from the original. Neurology Progress Note Admission Date: 07/01/2018 LOS: 3 days Assessment: Mr. Caal a 57 y.o.male with new onset Atrial Fibrillation with RVR, HTN , HLD, T2DM, Diabetic Retinopathy, OD Blindness, Neovascular Glaucoma, Prostate Cancer s/p prostatectomy, Urinary Retention s/p suprapubic catheter that was admitted at [facility] for urosepsis, DKA, A fib with RVR requiring cardizem ggt that was transferred for concerns for stroke. Patient found to have a R M1 occlusion. He underwent endovascular thrombectomy which was successful, TICI 3. MRI with bilateral temporal lobe infarcts, R insular cortex infarct and small areas of hemorrhagic conversion. Etiology likely cardio- embolic. 07/03 Exam: Disoriented, limited verbalization. Currently he has left facial asymmetry, dense left hemiparesis and dysarthria. He follows commands but is impulsive and pulling at his lines, thus he is in medical restraints. Plan: Acute Ischemic Stroke: - HTN: BP goal BP <130/80 - Lisinopril 20mg Daily - 81mg ASA daily for antiplatelet - LDL is 44 at goal <70 - 40mg Atorvastatin daily - DM2: Hgb A1c 17.4 with goal <7.0 - Endocrine consulted for challenging glucose control, we appreciate their recs : - Goal BS 100-140 fasting and 140-180 during the day. - Continue insulin infusion ---> Discontinued on 07/04 - Start Lantus 40 units - Novolog 10 units with post meal if eating - LDCF - A-Fib: plan to start Apixaban on 07/06 - Echocardiogram: 60% EF, LA size 3.5cm, no thrombus - ELECTRIC RELAY TESTER to eval and treat - Video swallow on 07/03: ok for full liquids and nectar thick fluids - PT/OT following: recommend inpatient setting - Rehab Medicine: Disposition recommendation is pending Anemia: - Progressive decline in Hgb (9.8 on admission, 7.2 on 07/03) - Heme occult pending (hasn't had a bowel movement) - Iron studies pending - No observed abnormal bruising - Will trend Hgb with Q8 checks - Transfuse if Hgb <7.0 Agitation: - Seroquel 25mg BID PO - May increase dose if agitation continues Urosepsis (resolved): - WBC count fluctuating, 13.4 on 07/03 - possibly reactive - Blood cultures with negative growth - UA negative for UTI - Rocephin 07/01 - 07/05 FEN: - [place] thick PO fluids - Daily BMP - Full Liquid diet Ppx: - DVT: 5000u Heparin Sq Q8 and SCD's to BLE Dispo: - Likely inpatient setting early next week Patient was seen and discussed with Dr. Gutierrez today. Subjective: Patient had hypogylcemia this morning in the 50s. Patient became somnolent but then woke up more with D50. Scheduled Meds: aspirin chewable tablet 81 mg 81 mg Per NG tube QDAY atorvastatin (LIPITOR) tablet 40 mg 40 mg Per NG tube QHS cefTRIAXone (ROCEPHIN) IVP 1 g 1 g Intravenous Q24H* diltiazem(#) (cardIZEM) solution 30 mg 30 mg Per NG tube Q6H docusate (COLACE) oral solution 100 mg 100 mg Per NG tube BID heparin (porcine) PF syringe 5,000 Units 5,000 Units Subcutaneous Q8H insulin aspart U-100 (NOVOLOG FLEXPEN) injection PEN 0-7 Units 0-7 Units Subcutaneous ACHS insulin aspart U-100 (NOVOLOG FLEXPEN) injection PEN 10 Units 10 Units Subcutaneous TID after meals insulin glargine (LANTUS SOLOSTAR, BASAGLAR) injection PEN 40 Units 40 Units Subcutaneous QDAY lisinopril (PRINIVIL; ZESTRIL) tablet 20 mg 20 mg Per NG tube QDAY QUEtiapine (SEROQUEL) tablet 25 mg 25 mg Oral BID senna/docusate (SENOKOT-S) solution 10 mL 10 mL Per NG tube BID Continuous Infusions: PRN and Respiratory Meds:acetaminophen Q6H PRN, bisacodyl QDAY PRN, hydrALAZINE Q6H PRN, labetalol (NORMODYNE; TRANDATE) injection Q6H PRN, pancrelipase 20,000 Units/ sodium bicarbonate 650 mg(#) PRN (Form Drafter from Rx) Vital Signs: Last Filed in 24 hours Vital Signs: 24 hour Range BP: 126/56 (07/04 1422) Temp: 36.8 C (98.2 F) (07/04 1323) Pulse: 67 (07/04 1422) Respirations: 15 PER MINUTE (07/04 1323) SpO2: 97 % (07/04 1342) O2 Delivery: Nasal Cannula (07/04 1342) BP: (107-165)/(46-85) Temp: [36.4 C (97.5 F)-37.4 C (99.3 F)] Pulse: [67-110] Respirations: [15 PER MINUTE-19 PER MINUTE] SpO2: [90 %-100 %] O2 Delivery: Nasal Cannula General physical exam: HEENT: normocephalic, atraumatic CV: regular rate Chest: normal configuration, equal chest rise bilaterally Skin: no rashes or lesions Neuro exam: MS: somnolent but rouses to voice Speech: fluent but dysarthric CN II-XII intact except L facial asymmetry Strength: 2/5 LUE, 2/5 LLE, 5/5 RUE/RLE Sensation: LT intact Lab/Radiology/Other Diagnostic Tests: Hematology: Lab Results Component Value Date HGB 9.4 07/04/2018 HCT 26.3 07/04/2018 PLTCT 357 07/04/2018 WBC 12.9 07/04/2018 NEUT 75 07/01/2018 ANC 7.10 07/01/2018 ALC 1.50 07/01/2018 JEFFREY 8 07/01/2018 AMC 0.80 07/01/2018 ABC 0.00 07/01/2018 MCV 89.9 07/04/2018 MCHC 32.6 07/04/2018 MPV 8.9 07/04/2018 RDW 13.9 07/04/2018 , General Chemistry: Lab Results Component Value Date NA 139 07/04/2018 K 3.7 07/04/2018 CL 106 07/04/2018 GAP 8 07/04/2018 BUN 9 07/04/2018 CR 1.07 07/04/2018 GLU 126 07/04/2018 CA 8.8 07/04/2018 ALBUMIN 2.8 07/01/2018 LACTIC 1.5 07/01/2018 OBSCA 1.14 07/02/2018 MG 1.9 07/02/2018 TOTBILI 0.3 07/01/2018 , HgbA1C: Lab Results Component Value Date HGBA1C 17.4 07/01/2018 and Lipid Profile: Lab Results Component Value Date CHOL 110 07/01/2018 TRIG 124 07/01/2018 HDL 42 07/01/2018 LDL 44 07/01/2018 VLDL 25 07/01/2018 MRI head: 1. Redemonstration of a right MCA infarct, [...] the posterior medial left temporal lobe. 3. Denominational of flow void within the right M1 segment, previously noted to be occluded. Munira Ortega DO Pager [phone] Associated attestation - Diego Gutierrez MD - 07/04/2018 4:14 PM CDT Formatting of this note may be different from the original. ATTESTATION I personally performed the jacobs portions of the E/M visit, discussed case with resident and concur with resident documentation of history, physical exam, assessment, and treatment plan unless otherwise noted. I personally reviewed vitals, labs. Pertinent neuroradiological imagings were viewed. 57-year-old male with right M1 occlusion status post perfusion at TIC I 3. Endocrinology consulted to help with diabetes and insulin requirement, the mentation is appreciated, hemoglobin trended below 7 overnight, was transfused with 1 unit of PRBC, will get stool occult, if positive will consult GI service , according to his he had a trending down of hemoglobin for quite a while, [facility] a [facility], also received another endoscopy at the [facility] OSH again without a clear upper GI etiology. From a stroke perspective: He is less restless, he moves both upper and lower extremities about equally, tolerating p.o. well, will arrange for rehab on Friday. Staff name: Diego Gutierrez MD Date: 07/04/2018 * Nathanael Clemens, RN - 07/04/2018 2:41 PM CDT 1219 Patient's BS 66 mg/dl patient asymptomatic; followed hypoglycemia protocol ; 4 oz of juice given; dr Ortega with Neurology notified 1250 BS continues to remain 66mg/dl; patient asymptomatic; 4 oz of non diet soda given; protocol followed 1316 BS 55mg/dl; patient symptomatic, lethargic, diaphoretic, not following commands but responding to painful stimuli; 12.5g (25 ml) of D50W administered IV; dr. Ortega notified; BS 114mg/dl; patient continues to remain lethargic bur able to follow commands; VS stable. 1342 additional 12.5 g of D50W IV administered per dr. Ortega order. 1419 BS 137mg/dl; 1430 dr. Ortega at bedside to assess patient. Symptomology has improved. Continues to remain lethargic; however, able to participate in the exam and follow commands; Will continue to monitor. 192 patient's reported that patient "felt sweaty", upon assessment, patient alert to person, follows commands, diaphoretic asking for " a drink of cold water" BS 44 mg/dl. 25 g (50 ml) D50W IV administer IV per protocol. Dr Foley with neurology notified. 194 BS 164 mg/dl * Abhishek Dumont, RT - 07/04/2018 9:40 AM CDT RT Adult Assessment Note NAME:Valdez Anthony :1960 AGE: 57 y.o. ADMISSION DATE: 07/01/2018 DAYS ADMITTED: LOS: 3 days RT Treatment Plan: Protocol Plan: Procedures NTS: Discontinued PAP: Place a nursing order for "IS Q1h While Awake" for any of Lung Expansion indicators Oxygen/Humidity: Discontinued Monitoring: Discontinued Additional Comments: Impressions of the patient: Patient resting comfortable in bed. No SOA observed or endorsed by the patient. BS: clear and decreased. Patient cough and deep breathing intact. Spo2 98% on RA Recommendations to the care team: No current respiratory modalities are indicated at this time Vital Signs: Pulse: RR: Respirations: 17 PER MINUTE SpO2: SpO2: 98 % O2 Device: Liter Flow: O2%: O2 Percent: 21 % Breath Sounds: Respiratory Effort: Respiratory Effort: Non-Labored * John Chaudhry MD - 07/04/2018 5:53 AM CDT Formatting of this note may be different from the original. General Progress Note Admission Date: 07/01/2018 LOS: 3 days Assessment/Plan: Principal Problem: Stroke (HCC) Active Problems: HTN (hypertension) Diabetes (HCC) Anemia Agitation Assessment: DM type 2 DKA resolved -A1c 17.4 on 07/01/2018 uncontrolled -PATTERN WORKER regimen: levemir 40 units QHS, Novolog 20-25 units with meals , metformin 1000 mg bid -Hypoglycemic episodes on this regimen: none -Follows up with for diabetes management: endocrinology - current steroid use : none Complications of DM: CAD: No CVA: Yes this admit PVD: No Amputations: No Retinopathy: Yes Gastropathy: No Nephropathy: Yes Neuropathy: Yes on Lyrica Afib Ischemic stroke - R MCA stroke : underwent stent-retriever/aspiration Urosepsis Recommendation Type 2 diabetes: - Poorly controlled diabetes prior to admission. A1c 17 - Our goal is to avoid hypoglycemia and to prevent hyperglycemia during hospitalization. We will start Lantus 40 units in the am and stop the insulin drip two hours afterwards - will add Novolog 10 units with post meal if eating -Will discuss with patient regarding discharge regiment and discuss with follow up plan - Patient will follow up with local endocrinology in [facility] Anemia This patient is having ongoing anemia on anticoagulation. Further evaluation for blood loss is recommended This is an individual we are following for hyperglycemia. DM His glycemic control is critical. Subjective Valdez Anthony is a 57 y.o. male. Patient has had no cases of hypoglycemia. Medications Scheduled Meds: aspirin chewable tablet 81 mg 81 mg Per NG tube QDAY atorvastatin (LIPITOR) tablet 40 mg 40 mg Per NG tube QHS cefTRIAXone (ROCEPHIN) IVP 1 g 1 g Intravenous Q24H* diltiazem(#) (cardIZEM) solution 30 mg 30 mg Per NG tube Q6H docusate (COLACE) capsule 100 mg 100 mg Per NG tube BID heparin (porcine) PF syringe 5,000 Units 5,000 Units Subcutaneous Q8H insulin aspart U-100 (NOVOLOG FLEXPEN) injection PEN 0-7 Units 0-7 Units Subcutaneous ACHS insulin aspart U-100 (NOVOLOG FLEXPEN) injection PEN 10 Units 10 Units Subcutaneous TID after meals insulin glargine (LANTUS SOLOSTAR, BASAGLAR) injection PEN 40 Units 40 Units Subcutaneous QDAY lisinopril (PRINIVIL; ZESTRIL) tablet 20 mg 20 mg Per NG tube QDAY QUEtiapine (SEROQUEL) tablet 25 mg 25 mg Oral BID senna/docusate (SENOKOT-S) solution 10 mL 10 mL Per NG tube BID Continuous Infusions: insulin regular (NOVOLIN R) 100 Units in sodium chloride 0.9% (NS) 100 mL IV drip (std conc) Stopped (07/04/18 0439) PRN and Respiratory Meds:acetaminophen Q6H PRN, bisacodyl QDAY PRN, hydrALAZINE Q6H PRN, labetalol (NORMODYNE; TRANDATE) injection Q6H PRN, pancrelipase 20,000 Units/ sodium bicarbonate 650 mg(#) PRN (Form Drafter from Rx) Objective Vital Signs: Last Filed Vital Signs: 24 Hour Range BP: 107/56 (07/04 044) Temp: 37.4 C (99.3 F) (07/04 442) Pulse: 110 (07/043) Respirations: 18 PER MINUTE (07/04 442) SpO2: 98 % (07/04 442) O2 Delivery: None (Room Air) (07/04 442) BP: (107-165)/(46-85) Temp: [36.4 C (97.5 F)-37.4 C (99.3 F)] Pulse: [86-110] Respirations: [18 PER MINUTE-20 PER MINUTE] SpO2: [93 %-100 %] O2 Delivery: None (Room Air) Vitals: 07/01/18 1445 Weight: 71.6 kg (157 lb 13.6 oz) Intake/Output Summary: (Last 24 hours) Intake/Output Summary (Last 24 hours) at 07/04/18 0554 Last data filed at 07/04/18 0435 Gross per 24 hour Intake 890 ml Output 1475 ml Net -585 ml Physical Exam General appearance: alert and cooperative Neurologic: Grossly normal Lungs: clear to auscultation bilaterally Heart: regular rate and rhythm, S1, S2 normal, no murmur, click, rub or gallop Abdomen: soft, non-tender. Bowel sounds normal. No masses, no organomegaly Extremities: extremities normal, atraumatic, no cyanosis or edema Lab Review 24-hour labs: Results for orders placed or performed during the hospital encounter of (from the past 24 hour(s)) POC GLUCOSE Collection Time: 07/03/18 8:04 AM Result Value Ref Range Glucose, POC 156 (H) 70 - 100 MG/DL POC GLUCOSE Collection Time: 07/03/18 9:22 AM Result Value Ref Range Glucose, POC 233 (H) 70 - 100 MG/DL POC GLUCOSE Collection Time: 07/03/18 10:45 AM Result Value Ref Range Glucose, POC 268 (H) 70 - 100 MG/DL POC GLUCOSE Collection Time: 07/03/18 12:20 PM Result Value Ref Range Glucose, POC 307 (H) 70 - 100 MG/DL POC GLUCOSE Collection Time: 07/03/18 1:24 PM Result Value Ref Range Glucose, POC 254 (H) 70 - 100 MG/DL POC GLUCOSE Collection Time: 07/03/18 2:22 PM Result Value Ref Range Glucose, POC 176 (H) 70 - 100 MG/DL HEMOGLOBIN Collection Time: 07/03/18 3:25 PM Result Value Ref Range Hemoglobin 7.2 (L) 13.5 - 16.5 GM/DL POC GLUCOSE Collection Time: 07/03/18 3:36 PM Result Value Ref Range Glucose, POC 190 (H) 70 - 100 MG/DL POC GLUCOSE Collection Time: 07/03/18 4:35 PM Result Value Ref Range Glucose, POC 190 (H) 70 - 100 MG/DL POC GLUCOSE Collection Time: 07/03/18 5:31 PM Result Value Ref Range Glucose, POC 157 (H) 70 - 100 MG/DL POC GLUCOSE Collection Time: 07/03/18 6:37 PM Result Value Ref Range Glucose, POC 143 (H) 70 - 100 MG/DL POC GLUCOSE Collection Time: 07/03/18 7:40 PM Result Value Ref Range Glucose, POC 113 (H) 70 - 100 MG/DL POC GLUCOSE Collection Time: 07/03/18 9:19 PM Result Value Ref Range Glucose, POC 187 (H) 70 - 100 MG/DL HEMOGLOBIN Collection Time: 07/03/18 10:02 PM Result Value Ref Range Hemoglobin 6.8 (L) 13.5 - 16.5 GM/DL POC GLUCOSE Collection Time: 07/03/18 10:12 PM Result Value Ref Range Glucose, POC 218 (H) 70 - 100 MG/DL POC GLUCOSE Collection Time: 07/03/18 11:21 PM Result Value Ref Range Glucose, POC 197 (H) 70 - 100 MG/DL TYPE & CROSSMATCH Collection Time: 07/03/18 11:48 PM Result Value Ref Range Units Ordered 1 Crossmatch Expires 07/06/2018 Record Check 2ND TYPE REQUIRED ABO/RH(D) O NEG Antibody Screen NEG Electronic Crossmatch YES Unit Number [id number] Blood Component Type RBC,CPDA,LEUKO REDUCED Unit Division 0 Status OF Unit ISSUED Transfusion Status OK TO TRANSFUSE Crossmatch Result COMPATIBLE,ELECTRONIC BLOOD TYPE CONFIRMATION - ORDER ONLY IF REQUESTED BY LAB Collection Time: 07/04/18 12:13 AM Result Value Ref Range ABO/RH(D) O NEG POC GLUCOSE Collection Time: 07/04/18 12:37 AM Result Value Ref Range Glucose, POC 126 (H) 70 - 100 MG/DL POC GLUCOSE Collection Time: 07/04/18 2:14 AM Result Value Ref Range Glucose, POC 112 (H) 70 - 100 MG/DL POC GLUCOSE Collection Time: 07/04/18 3:24 AM Result Value Ref Range Glucose, POC 120 (H) 70 - 100 MG/DL POC GLUCOSE Collection Time: 07/04/18 4:36 AM Result Value Ref Range Glucose, POC 94 70 - 100 MG/DL Point of Care Testing (Last 24 hours) FSBS (Manual): (!) 143 Glucose: (!) 135 POC Glucose (Download): 94 Radiology and other Diagnostics Review: none John Chaudhry MD * America Barcenas RN - 07/03/2018 11:21 PM CDT Formatting of this note may be different from the original. Results for VALDEZ ANTHONY ( ) as of 07/03/2018 23:20 Ref. Range 07/03/2018 22:02 Hemoglobin Latest Ref Range: 13.5 - 16.5 GM/DL 6.8 (L) Results given to Dr. Foley. New orders to transfuse 1 unit of RBCs. * Alonzo Watt APRN-ROSEANN - 07/03/2018 4:13 PM CDT Formatting of this note may be different from the original. Neurology Progress Note Admission Date: 07/01/2018 LOS: 2 days Assessment: Mr. Caal a 57 y.o.male with new onset Atrial Fibrillation with RVR, HTN , HLD, T2DM, Diabetic Retinopathy, OD Blindness, Neovascular Glaucoma, Prostate Cancer s/p prostatectomy, Urinary Retention s/p suprapubic catheter that was admitted at [facility] for urosepsis, DKA, A fib with RVR requiring cardizem ggt that was transferred for concerns for stroke. Patient found to have a R M1 occlusion. He underwent endovascular thrombectomy which was successful, TICI 3. MRI with bilateral temporal lobe infarcts, R insular cortex infarct and small areas of hemorrhagic conversion. Etiology likely cardio- embolic. 07/03 Exam: Disoriented, limited verbalization. Currently he has left facial asymmetry, dense left hemiparesis and dysarthria. He follows commands but is impulsive and pulling at his lines, thus he is in medical restraints. Plan: Acute Ischemic Stroke: - HTN: BP goal BP <130/80 - Lisinopril 20mg Daily - 81mg ASA daily for antiplatelet - LDL is 44 at goal <70 - 40mg Atorvastatin daily - DM2: Hgb A1c 17.4 with goal <7.0 - Endocrine consulted for challenging glucose control, we appreciate their recs : - Goal BS 100-140 fasting and 140-180 during the day. - Continue insulin infusion - Novolog 10 units with post meal if eating - A-Fib: plan to start Apixaban on 07/06 - Echocardiogram: 60% EF, LA size 3.5cm, no thrombus - ELECTRIC RELAY TESTER to eval and treat - Video swallow on 07/03: ok for full liquids and nectar thick fluids - PT/OT following: recommend inpatient setting - Rehab Medicine: Disposition recommendation is pending Anemia: - Progressive decline in Hgb (9.8 on admission, 7.2 on 07/03) - Heme occult pending - No observed abnormal bruising - Will trend Hgb with Q8 checks - Transfuse if Hgb <7.0 Agitation: - Seroquel 25mg BID PO - May increase dose if agitation continues Urosepsis (resolved): - WBC count fluctuating, 13.4 on 07/03 - possibly reactive - Blood cultures with negative growth - UA negative for UTI FEN: - [place] thick PO fluids - Daily BMP - Full Liquid diet Ppx: - DVT: 5000u Heparin Sq Q8 and SCD's to BLE Dispo: - Likely inpatient setting early next week Patient was seen and discussed with Dr. Gutierrez today. Subjective: Discussion with regarding his overnight agitation. Discussed plan for agitation, stroke risk factor management, anemia and blood glucose control. was in agreement, all questions answered. Scheduled Meds: aspirin chewable tablet 81 mg 81 mg Per NG tube QDAY atorvastatin (LIPITOR) tablet 40 mg 40 mg Per NG tube QHS cefTRIAXone (ROCEPHIN) IVP 1 g 1 g Intravenous Q24H* diltiazem(#) (cardIZEM) solution 30 mg 30 mg Per NG tube Q6H docusate (COLACE) capsule 100 mg 100 mg Per NG tube BID heparin (porcine) PF syringe 5,000 Units 5,000 Units Subcutaneous Q8H insulin aspart U-100 (NOVOLOG FLEXPEN) injection PEN 10 Units 10 Units Subcutaneous TID after meals lisinopril (PRINIVIL; ZESTRIL) tablet 20 mg 20 mg Per NG tube QDAY QUEtiapine (SEROQUEL) tablet 25 mg 25 mg Oral BID senna/docusate (SENOKOT-S) solution 10 mL 10 mL Per NG tube BID Continuous Infusions: insulin regular (NOVOLIN R) 100 Units in sodium chloride 0.9% (NS) 100 mL IV drip (std conc) 1.5 Units/hr (07/03/18 1533) PRN and Respiratory Meds:acetaminophen Q6H PRN, bisacodyl QDAY PRN, hydrALAZINE Q6H PRN, labetalol (NORMODYNE; TRANDATE) injection Q6H PRN, pancrelipase 20,000 Units/ sodium bicarbonate 650 mg(#) PRN (Form Drafter from Rx) Vital Signs: Last Filed in 24 hours Vital Signs: 24 hour Range BP: 122/53 (07/03 1404) Temp: 36.6 C (97.9 F) (07/03 1404) Pulse: 104 (07/03 1404) Respirations: 20 PER MINUTE (07/03 1404) SpO2: 99 % (07/03 1404) O2 Delivery: None (Room Air) (07/03 1404) SpO2 Pulse: 86 (07/02 2000) BP: (120-178)/(46-69) Temp: [36.4 C (97.6 F)-37.2 C (98.9 F)] Pulse: [70-106] Respirations: [18 PER MINUTE-22 PER MINUTE] SpO2: [95 %-100 %] O2 Delivery: None (Room Air) General physical exam: HEENT: normocephalic, eyes open with no discharge, nares patent, oropharynx is clear with no lesions, palate intact CV: regular rate, distal pulses palpable Chest: normal configuration, equal chest rise bilaterally Ab: soft, non-tender, no masses, no organomegaly Skin: no rashes or lesions Neuro exam: MS: alert/oriented x1 Speech: fluent but dysarthric CN II-XII intact except L facial asymmetry Strength: 2/5 LUE, 2/5 LLE, 5/5 RUE/RLE Sensation: LT intact DTRs: 2/4 throughout, toes downgoing Lab/Radiology/Other Diagnostic Tests: Hematology: Lab Results Component Value Date HGB 7.2 07/03/2018 HCT 22.7 07/03/2018 PLTCT 395 07/03/2018 WBC 13.4 07/03/2018 NEUT 75 07/01/2018 ANC 7.10 07/01/2018 ALC 1.50 07/01/2018 JEFFREY 8 07/01/2018 AMC 0.80 07/01/2018 ABC 0.00 07/01/2018 MCV 88.3 07/03/2018 MCHC 33.4 07/03/2018 MPV 8.7 07/03/2018 RDW 14.1 07/03/2018 , General Chemistry: Lab Results Component Value Date NA 140 07/03/2018 K 3.5 07/03/2018 CL 110 07/03/2018 GAP 9 07/03/2018 BUN 11 07/03/2018 CR 1.11 07/03/2018 GLU 135 07/03/2018 CA 8.8 07/03/2018 ALBUMIN 2.8 07/01/2018 LACTIC 1.5 07/01/2018 OBSCA 1.14 07/02/2018 MG 1.9 07/02/2018 TOTBILI 0.3 07/01/2018 , HgbA1C: Lab Results Component Value Date HGBA1C 17.4 07/01/2018 and Lipid Profile: Lab Results Component Value Date CHOL 110 07/01/2018 TRIG 124 07/01/2018 HDL 42 07/01/2018 LDL 44 07/01/2018 VLDL 25 07/01/2018 MRI head: 1. Redemonstration of a right MCA infarct, [...] the posterior medial left temporal lobe. 3. Denominational of flow void within the right M1 segment, previously noted to be occluded. Alonzo Watt APRN-ROSEANN Neurology Stroke Service [id number] Associated attestation - Diego Gutierrez MD - 07/03/2018 9:43 PM CDT Formatting of this note may be different from the original. ATTESTATION I personally interviewed and examined the patient. I have reviewed the history , physical, impression and plan outlined by the Nurse Practitioner. The patient presents with (HPI) 67-year-old male with atrial fibrillation, presented with right MCA occlusion status post mechanical thrombectomy with TIC I 3 perfusion. He has subsequent right MCA territory infarct: Moderate to large in size., He still restless today, requiring restraints yet, he moves both upper and lower extremity fairly well. On examination there is difficult to assess with the restraints but about symmetrical upper and lower extremity strength. Patient was restless overall., My impression is right MCA territory ischemic stroke, cardioembolic, secondary to A. fib My plan is to start anticoagulation at 10 days from onset, Seroquel 25 twice daily, might increase if needed, trend hemoglobin given the anemia, will transfuse if hemoglobin less than 7. Staff name: Diego Gutierrez MD Date: 07/03/2018 * Dolores Sampson, PT - 07/03/2018 1:33 PM CDT PHYSICAL THERAPY PROGRESS NOTE MOBILITY: Mobility Progressive Mobility Level: Stand Level of Assistance: Assist X2 Assistive Device: Hand Held Time Tolerated: 11-30 minutes Activity Limited By: Mental Status Variability;Dizziness SUBJECTIVE: Subjective Significant hospital events: 57 y.o. male with new onset Atrial Fibrillation with RVR transferred from an OSH for stroke; found to have a R M1 occlusion; s/ p endovascular thrombectomy which was successful; MRI shows bilateral temporal lobe infarcts, R insular cortex, R insular cortex, infarcts and small areas of hemorrhagic conversion. Mental / Cognitive Status: Inconsistent with Command Following;Lethargic ( constant moaning) Persons Present: Spouse;Physical Therapist Pain: Patient has no complaint of pain Comments: PMH: HTN, HLD, T2DM, Diabetic Retinopathy, OD Blindness, Neovascular Glaucoma, Prostate Cancer s/p prostatectomy, Urinary Retention s/p suprapubic catheter that was admitted at [facility] for urosepsis, DKA, A fib with RVR requiring cardizem ggt Ambulation Assist: Independent Mobility in Community without Device Patient Owned Equipment: Single Point Cane;Roller Walker;4-Wheeled Walker Home Situation: Lives with Family Type of Home: House (Trailer home) Entry Stairs: 3-5 Stairs;Rail on 1 Side In-Home Stairs: No Stairs BED MOBILITY/TRANSFERS: Bed Mobility/Transfers Bed Mobility: Supine to Sit: Maximum Assist;x2 People;Head of Bed Elevated; Assist with B LE;Assist with Trunk Bed Mobility: Sit to Supine: Maximum Assist;x2 People;Assist with Trunk;Assist with B LE;Bed Flat Transfer Type: Sit to Stand Transfer: Assistance Level: To/From;Bed;Maximal Assist;x2 People Transfer: Assistive Device: Hand Hold Assist Transfers: Type Of Assistance: Verbal Cues;For Balance;For Strength Deficit;For Safety Considerations End Of Activity Status: In Bed;Nursing Notified;Instructed Patient to Request Assist with Mobility;Instructed Patient to Use Call Light (bed alarm on; bilateral UE mits and restraints) GAIT: Gait Comments: Not safe to ambulate due to inability to maintain standing depsite 2 person assist. ACTIVITY/EXERCISE: Activity / Exercise Sit Edge Of Bed: 10 minutes Sit Edge Of Bed Assist: Variable;Minimal Assist;Maximum Assist Comments: Patient demosntrates ability to move BUE and BLE, patient likey has signficant stregnth to stand but is unable to follow directions to particpate in therapy. EDUCATION: Education Persons Educated: Patient Patient Barriers To Learning: None Noted Interventions: Repetition of Instructions;Family Education Teaching Methods: Verbal Instruction Patient Response: More Instruction Required Topics: Plan/Goals of PT Interventions;Mobility Progression;Safety Awareness;Up with Assist Only;Importance of Increasing Activity;Recommend Continued Therapy ASSESSMENT/PROGRESS: Assessment/Progress Impaired Mobility Due To: Decreased Strength;Impaired Balance;Safety Concerns; Decreased Activity Tolerance;Deconditioning Assessment/Progress: Should Improve w/ Continued PT AM-PAC 6 Clicks Basic Mobility Inpatient Turning from your back to your side while in a flat bed without using bed rails : Total Moving from lying on your back to sitting on the side of a flatbed without using bedrails : Total Moving to and from a bed to a chair (including a wheelchair): Total Standing up from a chair using your arms (e.g. wheelchair, or bedside chair): Total To walk in hospital room: Total Climbing 3-5 steps with a railing: Total Raw Score: 6 Standardized (T-scale) Score: 16.59 Basic Mobility CMS 0-100%: 100 CMS G Code Modifier for Basic Mobility: CN GOALS: Goals Goal Formulation: With Patient/Family Time For Goal Achievement: 7 days Pt Will Go Supine To/From Sit: w/ Moderate Assist Pt Will Transfer Sit to Stand: w/ Moderate Assist Pt Will Ambulate: 11-30 Feet, w/ Walker, w/ Moderate Assist Pt Will Go Up / Down Stairs: 3-5 Stairs, w/ Moderate Assist PLAN: Plan Treatment Interventions: Mobility Training;Strengthening;Balance Activities Plan Frequency: 5 Days per Week PT Plan for Next Visit: continue EOB sitting balance; trial standing and transfers to chair as able Recommend chair mode or total body lift to chair for weekend, with staff air tactical officer. Dicussed mobility recommendation with bedside RN. RECOMMENDATIONS: PT Discharge Recommendations PT Discharge Recommendations: Inpatient Setting Therapist: Dolores Sampson, PT Date: 07/03/2018 * Mary Grace Stanton, OT - 07/03/2018 1:33 PM CDT Formatting of this note may be different from the original. OCCUPATIONAL THERAPY PROGRESS NOTE Patient Name: Valdez Anthony Room/Bed: [place] [address] Admitting Diagnosis: Stroke Past Medical History: Diagnosis Date Arthritis DM (diabetes mellitus) (HCC) DM eyes Glaucoma neovascular Hypertension Mobility Progressive Mobility Level: Stand Level of Assistance: Assist X2 Assistive Device: Hand Held Time Tolerated: 11-30 minutes Activity Limited By: Mental Status Variability;Dizziness Subjective Pertinent Dx per Physician: h/o prostate cancer, presented to [facility] with uro-sepsis and DKA. Supra-pubic catheter placed on 06/29 2* to multiple unsuccessful attempts at catheterization. Coumadin was stopped and he was on Heparin gtt as well as Cardizem/Insulin gtt. A-fib had converted to SR. Heparin gtt and Cardizem were then stopped on 06/30. Insulin gtt was stopped on 07/01. On the morning of 07/01 he was found by nursing staff to be non verbal with left hemiplegia. Transferred to [facility]. MCA stroke s/p thrombectomy, stent 07/01. Precautions: Falls;Diet Modifications Pain / Complaints: Patient has no c/o pain Objective Psychosocial Status: Lethargic Persons Present: Spouse;Physical Therapist Home Living Type of Home: House (Trailer home) Home Layout: One Level;Stairs to Enter w/ Rails Bathroom Shower / Tub: Tub/Shower Unit Comment: pt has walkers, canes, white canes. Does not use walkers, uses white cane occasionally in community. 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 Does not drive. Falls about once a month, per due to losing his balance. Vision Comment: makes brief eye contact with L eye, not able to verbalize what he is seeing ADL's Comment: Total assist for all ADLs. Moderate assist for supine to sit, then fluctuating from minimal to maximal assist for static balance. Pt c/o dizziness , mostly groaning throughout session. Not answering any questions except yes/no for dizziness, after much cueing to answer. Stood X2 for a second each time with assist X2, then laid back down. Poor command follow, poor attention. AM-PAC 6 Clicks Daily Activity Inpatient Putting on and taking off regular lower body clothes?: Total Bathing (Including washing, rinsing, drying): Total Toileting, which includes using toilet, bedpan, or urinal: Total Putting on and taking off regular upper body clothing: Total Taking care of personal grooming such as brushing teeth: Total Eating meals?: Total Daily Activity Raw Score: 6 Standardized (t-scale) score: 17.07 CMS 0-100% Score: 100 CMS G Code Modifier: CN Plan OT Frequency: 5x/week OT Plan for Next Visit: command follow, simple ADLs, transfers Functional Transfer Goals Pt Will Transfer To Bedside Commode: w/ Moderate Assist OT Discharge Recommendations OT Discharge Recommendations: Inpatient Setting Equipment Recommendations: Too early to be determined Therapist: Mary Grace Stanton, LUKE Date: 07/03/2018 * Jose Hubbard - 07/03/2018 9:20 AM CDT SPEECH-LANGUAGE PATHOLOGY VIDEOSWALLOW ASSESSMENT EVALUATION SUMMARY Videoswallow Summary*: Videoswallow completed. Moderate oropharyngeal dysphagia due to recent CVA, baseline dysphagia per pt/family report, and behavior/ cognitive deficits. Dysphagia characterized by early spillover of boluses into pharynx, laryngeal penetration of thin and nectar thick liquids prior to and during the swallow, and decreased pharyngeal clearing due to weakness. Unable to complete compensatory strategies during evaluation given pt's behavior and cognitive deficits, pt unable to follow commands to complete strategies. Penetrated materials did not appear to consistently clear the laryngeal vestibule, especially with thin liquids. Anticipate remains at risk for aspiration, however reduced w/ use of nectar thick liquids and small, single sips. Study was significantly limited given behavioral and positional difficulties. Please see further details below. RECOMMENDATIONS: Initiate full liquids w/ NECTAR thick modifier w/ risk for aspiration. 100% supervision w/ PO intake. - Primary team in approval of diet initiation. PO medications crushed in puree. Swallow Strategies: Small, single sips at a time via cup (no straws), sit 90 degrees upright, slow rate of intake. Please cease PO intake if pt demonstrates consistent, overt s/s of aspiration. Ongoing speech therapy to address dysphagia concerns. Pt will benefit from cognitive-communication evaluation in near future. Oral Stage Summary*: Pt demonstrated reduced formation/control of boluses. Prolonged oral holding (~20-25 seconds) intermittently noted w/ nectar thick liquids and pureed solids. AP transfer mildly delayed likely due to mental status and/or weakness. Pt demonstrated early spillover into pharynx across consistencies. Pt was unable to follow commands to complete compensatory swallow strategies. Velopharyngeal closure appeared WFL. Attempted chewable solids, however pt held cracker in anterior oral cavity and did not demonstrate intentional manipulation or mastication. Cracker was then removed from pt's mouth. Pharyngeal Stage Summary*: Pt demonstrates minimal to mildly delayed swallow initiation (2-6 second delay) w/ spillage to valleculae and pyriforms w/ thin and nectar thick liquids due to mental status and/or weakness. Epiglottis moved posteriorly but did not invert during the swallow. Consistent laryngeal penetration noted w/ thin liquids prior to and during the swallow. Depth of penetration with thin liquids ranged from mild to deep, to the level of the vocal cords. Intermittent penetration also noted w/ nectar thick liquids. Depth and frequency of laryngeal penetration noted to be less with nectar thick liquids. Penetrated materials did not appear to consistently clear the laryngeal vestibule, placing pt at risk for at least microaspiration. Pt did not demonstrate cough response to laryngeal penetration events. Decreased anterior movement of arytenoids resulted in decreased laryngeal vestibule closure. UES opening appeared WFL. Mild BOT/pharyngeal residue noted across consistencies due to weakness and decreased pharyngeal stripping wave. Plan*: Continue Treatment 3-5x/ Week, Patient Would Benefit from Further Speech Therapy Post Acute Hospitalization. Prognosis*: Fair, Good NOMS Dysphagia Rating*: 3-Moderate Dysphagia -Alternative method of feeding needed. Pt takes < 50% of nutrition/hydration by mouth &/or swallow safe w/ consistent mod cueing to use compensatory strategies &/or requires max diet restriction. Penetration Aspiration Scale*: 5 - Material enters laryngeal vestibule, contacts vocal folds & is not ejected Objective* Relevant Med Background: 57 y.o. male with new onset Atrial Fibrillation with RVR, HTN, HLD, T2DM, Diabetic Retinopathy, OD Blindness, Neovascular Glaucoma, Prostate Cancer s/p prostatectomy, Urinary Retention s/p suprapubic catheter that was admitted at [facility] for urosepsis, DKA, A fib with RVR requiring cardizem ggt that was transferred for concerns for stroke. Patient found to have a R M1 occlusion. He underwent endovascular thrombectomy which was successful, TICI 3. MRI with bilateral temporal lobe infarcts, R insular cortex, R insular cortex, infarcts and small areas of hemorrhagic conversion. Handedness: Right Lives With: Spouse Psychosocial Status: Participates in Therapy with Encouragement Persons Present: None Subjective* Pain: Patient has no complaint of pain Trach Presence: No Feeding Tube Present During Eval: None (Pt removed Corpak this am) Nutrition* Nutrition Prior To Hospitalization: Regular, Thin Liquids Current Form Of Nutrition: NPO Views / Seating* Views / Seating: Lateral View Barium Consist/Presentation* Presentations: Therapist Fed Thin Liquid: 1 oz, Cup, Straw [place] Thick Liquid: Cup, Straw Honey Thick Liquid: 1 Tsp Other Consistencies: Pudding Education* Persons Educated: Patient Barriers To Learning: Impaired Communication, Decreased Cooperation, Decreased Alertness Interventions: Staff Educated, Provided Written Education Teaching Methods: Verbal, Demonstration Topics: Dysphagia Patient Response: Verbalized Understanding Goal Formulation: With Patient Videoswallow Goals* Goal : Pt will tolerate full liquid diet w/ NECTAR thick modifier w/ less than 5 % s/s of aspiration and w/o negative pulmonary status changes. Goal : Pt will participate in PO trials of thin liquids via spoon/cup and pureed /mech soft solids w/ ELECTRIC RELAY TESTER only w/ less than 5% s/s of aspiration. Goal : Pt will participate in cognitive-communication assessment given mod cues. Therapist: BIANCA Lamb L/CCC-ELECTRIC RELAY TESTER Voalte: [id number] Date: 07/03/2018 * Alex Medel RN - 07/03/2018 7:46 AM CDT 0750-Pt. Lying in bed. A&OX1. Pt. In mitts bilat, lap belt and wrist restraints. Pt. Recently pulled out his corpak. Tube feeding and insulin drip paused at this time. Spoke with Dr. Zhong about something for agitation. Ordered risperdal sublingual. Spoke with About pt. Getting a video swallow at 0830, so will replace corpak pending the results of the video swallow. Will monitor. 0800-Pt. Going off the floor for a video swallow with the tech. Pt. Very hard to redirect. Instructed patient to lay on his back. Pt. Kept insisting on turning to his side. Will monitor. 0940-Spoke with the team in huddle about patient. Pt's latest blood sugar was 233. Pt. Has not had any tube feeding since 0600 this morning. No correction factor ordered at this time due to no feeding at this time. Alonzo Watt, ROSEANN, said the video swallow results are back and patient can have full liquid diet, nectar thick liquids. Pharmacist ordered that she be called and informed of the patient's 1100 blood sugar so that the patient could get some NPH insulin to help with the blood sugar. Will monitor. 1120-Attempted to restart the insulin drip. Pt. Pulled out his IV. Attempted to place another IV. Pt. Jerked his arm during the procedure. Unsuccessful. IV team paged. 1215-New blood sugar taken, 307. Restarted insulin drip at 3.0 and administered 10 units of NPH as ordered. Will monitor. 1630-Attempted to NIH stoke scale with patient. Pt. Not motivated and responded only to a few questions. Refused to open his eyes and did not answer questions when asked. Lifted his right hand on command but little else. * Cuong Sage - 07/03/2018 6:38 AM CDT Pt pulled out unbridled corpak. Insulin drip paused until new corpak placed, as Pt has no route for nutrition and medications at this time. Dr. Foley notified and stated he will place new orders for corpak placement and bridling this morning. Pt became very agitated this AM, RN notified who ordered single dose of seroquel, RN had arrived in Pt room will medication when Pt pulled out corpak. Will continue to monitor. * Cuong Sage - 07/02/2018 9:30 PM CDT Patient arrived to room # (4316) via bed accompanied by RN. Patient transferred to the bed with assistance. Bedside safety checks completed. Initial patient assessment completed, refer to flowsheet for details. Admission skin assessment completed by: Pressure Injury Present on Hospital Admission (within 24 hours): No 1. Occiput: No 2. Ear: No 3. Scapula: No 4. Spinous Process: No 5. Shoulder: No 6. Elbow: No 7. Iliac Crest: No 8. Sacrum/Coccyx: Yes 9. Ischial Tuberosity: No 10. Trochanter: No 11. Knee: No 12. Malleolus: No 13. Heel: No 14. Toes: No 15. Assessed for device associated injury Yes 16. Nursing Nutrition Assessment Completed Yes See Doc Flowsheet for additional wound details. INTERVENTIONS: Criticaid barrier cream applied to coccyx, groin, and gluteus, Pt appears to have some moisture associated skin damage on his bottom and groin , will continue to monitor. * Cuong Sage - 07/02/2018 9:20 PM CDT Pt transported to room 6104 via bed, RN x2, VSS. Pt 2100 BG (59) insulin paused tube feeds were disconnected in transport, RN reconnected tube feed and delivered 40 bolus via corpak will recheck BG in 15 min. Pt asymptomatic at this time. Will continue to monitor. 2136: Pt BG (49), neuro stroke resident paged, hypoglycemic protocols initiated , RN administered D50 50ml slow IV push. BG rechecked after 15min, BG ([id number]), physician updated, ordered insulin infusion be restarted at previous rate and then follow insulin drip titration protocols. Will continue to monitor. * Mary Grace Stanton OT - 07/02/2018 1:51 PM CDT Formatting of this note may be different from the original. OCCUPATIONAL THERAPY ASSESSMENT NOTE Patient Name: Valdez Anthony Room/Bed: GH8443/01 Admitting Diagnosis: Stroke Past Medical History: Diagnosis Date Arthritis DM (diabetes mellitus) (HCC) DM eyes Glaucoma neovascular Hypertension Mobility Progressive Mobility Level: Stand Level of Assistance: Assist X2 Assistive Device: Hand Held Time Tolerated: 11-30 minutes Activity Limited By: Mental Status Variability;Weakness Subjective Pertinent Dx per Physician: h/o prostate cancer, presented to [facility] with uro-sepsis and DKA. Supra-pubic catheter placed on 06/29 2* to multiple unsuccessful attempts at catheterization. Coumadin was stopped and he was on Heparin gtt as well as Cardizem/Insulin gtt. A-fib had converted to SR. Heparin gtt and Cardizem were then stopped on 06/30. Insulin gtt was stopped on 07/01. On the morning of 07/01 he was found by nursing staff to be non verbal with left hemiplegia. Transferred to [facility]. R MCA stroke s/p thrombectomy, stent 07/01. Precautions: NPO;Falls Pain / Complaints: Patient has no c/o pain Objective Psychosocial Status: Lethargic;Participates in Therapy with Encouragement Persons Present: Spouse;Physical Therapist Home Living Type of Home: House (Trailer home) Home Layout: One Level;Stairs to Enter w/ Rails Bathroom Shower / Tub: Tub/Shower Unit Comment: pt has walkers, canes, white canes. Does not use walkers, uses white cane occasionally in community. 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 Does not drive. Falls about once a month, per due to losing his balance. Vision Comment: R eye blind at baseline. Pt not following commands well enough to formally test L eye. ADL's Eating Assist: Total Assist Eating Deficits: NPO Functional Transfer Assist: Total Assist Comment: Pt agitated, moaning throughout session. Followed some commands for bridging in bed, kicking LE's. Pt maximum assist X2 for bed mobility and attempt at standing. Pt focusing on wanting to "lay my head down" and "I'm thirsty". Otherwise moaning and not verbalizing. Pt moving all four limbs, scooting self down in the bed and leaning to L spontaneously. Mitt and soft wrist restraints, Trevor strap replaced end of session and bed alarm set. Activity Tolerance Sitting Balance: 1/5 Supports Self w/25-50% Effort UsingUE, Requires Therapist Assistance Cognition Overall Cognitive Status: Impaired Expression: Mumbling/Slurred;Increased Time for Expression Social Interaction: Encouragement/Coaxing to Participate Problem Solving: Cueing to Sequence Task;Unable to Utilize Call Light;Direction Following Assist;Decreased Judgment/Safety Attention: Distractable Cognition Comment: lethargic, moaning. Able to state first and middle name, not able to state last name but nodded when OT said it. UE AROM Overall BUE AROM WNL: Yes Comment: coordination needs further assessment when pt more able to follow instructions and less agitated Sensory Comment: unable to assess accurately 2* to cognition UE Strength / Tone Comment: BUE grossly WFL, will further assess during ADL tasks as pt able to participate Education Persons Educated: Patient/Family Teaching Methods: Verbal Instruction;Demonstration Patient Response: More Instruction Required Topics: Role of OT, Goals for Therapy Goal Formulation: With Patient/Family (Simultaneous filing. User may not have seen previous data.) Assessment Assessment: Decreased ADL Status;Decreased Safe/Judg during ADL;Decreased Cognition;Decreased Endurance;Visual Deficit;Decreased Self-Care Trans; Decreased High-Level ADLs Prognosis: Good;w/Cont OT s/p Acute Discharge AM-PAC 6 Clicks Daily Activity Inpatient Putting on and taking off regular lower body clothes?: Total Bathing (Including washing, rinsing, drying): Total Toileting, which includes using toilet, bedpan, or urinal: Total Putting on and taking off regular upper body clothing: Total Taking care of personal grooming such as brushing teeth: Total Eating meals?: Total Daily Activity Raw Score: 6 Standardized (t-scale) score: 17.07 CMS 0-100% Score: 100 CMS G Code Modifier: CN Plan OT Frequency: 5x/week OT Plan for Next Visit: command follow, simple ADLs, transfers ADL Goals Patient Will Perform Grooming: Standing at Sink (with minimal assist X2 ) Functional Transfer Goals Pt Will Transfer To Bedside Commode: w/ Moderate Assist OT Discharge Recommendations OT Discharge Recommendations: Inpatient Setting Equipment Recommendations: Too early to be determined G-Codes: Self-care G8987 Current Status:100% Impairment G8988 Goal Status: 80-99% Impairment Based on above evaluation and clinical judgment. Therapist: Mary Grace Stanton, OT Date: 07/02/2018 * Dolores Sampson, PT - 07/02/2018 1:51 PM CDT PHYSICAL THERAPY ASSESSMENT MOBILITY: Mobility Progressive Mobility Level: Stand Level of Assistance: Assist X2 Assistive Device: Hand Held Time Tolerated: 11-30 minutes Activity Limited By: Mental Status Variability;Weakness SUBJECTIVE: Subjective Significant hospital events: 57 y.o. male with new onset Atrial Fibrillation with RVR transferred from an OSH for stroke; found to have a R M1 occlusion; s /p endovascular thrombectomy which was successful; MRI shows bilateral temporal lobe infarcts, R insular cortex, R insular cortex, infarcts and small areas of hemorrhagic conversion. Mental / Cognitive Status: Inconsistent with Command Following;Lethargic ( constant moaning) Persons Present: Occupational Therapist;Spouse Pain: Patient has no complaint of pain Comments: PMH: HTN, HLD, T2DM, Diabetic Retinopathy, OD Blindness, Neovascular Glaucoma, Prostate Cancer s/p prostatectomy, Urinary Retention s/p suprapubic catheter that was admitted at [facility] for urosepsis, DKA, A fib with RVR requiring cardizem ggt Ambulation Assist: Independent Mobility in Community without Device Patient Owned Equipment: Single Point Cane;Roller Walker;4-Wheeled Walker Home Situation: Lives with Family Type of Home: Mobile Home Entry Stairs: 3-5 Stairs;Rail on 1 Side In-Home Stairs: No Stairs Comments: Spouse reports patient falls approximately 1 time per month related to poor balance. ROM: ROM ROM Position Assessed: Seated ROM Method: Active LE ROM: Bilateral;WFL STRENGTH: Strength Strength Position Assessed: Seated Overall Strength: Generalized Weakness Strength Unable To Assess: Not Able to Follow Testing Sequence POSTURE/NEURO: Posture / Neurological Head Control: Independent Posture: No Postural Deviations Overall Tone: Normal Coordination: No Deficits Noted BED MOBILITY/TRANSFERS: Bed Mobility/Transfers Bed Mobility: Supine to Sit: Maximum Assist;x2 People;Head of Bed Elevated; Assist with B LE;Assist with Trunk Bed Mobility: Sit to Supine: Maximum Assist;x2 People;Assist with Trunk;Assist with B LE;Bed Flat Transfer Type: Sit to Stand Transfer: Assistance Level: To/From;Bed;Moderate Assist;x2 People Transfer: Assistive Device: Hand Hold Assist Transfers: Type Of Assistance: Verbal Cues;For Balance;For Strength Deficit;For Safety Considerations End Of Activity Status: In Bed;Nursing Notified;Instructed Patient to Request Assist with Mobility;Instructed Patient to Use Call Light (bed alarm on) Comments: Patient constantly asking to return to bed or for water. He demonstrates difficulty focusing on task or ability sustain participation in task at this time. GAIT: Gait Comments: Not safe to ambulate due to inability to maintain standing despite 2 person assist. ACTIVITY/EXERCISE: Activity / Exercise Sit Edge Of Bed: 10 minutes Sit Edge Of Bed Assist: Variable;Minimal Assist;Maximum Assist EDUCATION: Education Persons Educated: Patient Patient Barriers To Learning: None Noted Interventions: Repetition of Instructions;Family Education Teaching Methods: Verbal Instruction Patient Response: More Instruction Required Topics: Plan/Goals of PT Interventions;Mobility Progression;Safety Awareness;Up with Assist Only;Importance of Increasing Activity;Recommend Continued Therapy ASSESSMENT/PROGRESS: Assessment/Progress Impaired Mobility Due To: Decreased Strength;Impaired Balance;Safety Concerns; Decreased Activity Tolerance;Deconditioning Assessment/Progress: Should Improve w/ Continued PT AM-PAC 6 Clicks Basic Mobility Inpatient Turning from your back to your side while in a flat bed without using bed rails : Total Moving from lying on your back to sitting on the side of a flatbed without using bedrails : Total Moving to and from a bed to a chair (including a wheelchair): Total Standing up from a chair using your arms (e.g. wheelchair, or bedside chair): Total To walk in hospital room: Total Climbing 3-5 steps with a railing: Total Raw Score: 6 Standardized (T-scale) Score: 16.59 Basic Mobility CMS 0-100%: 100 CMS G Code Modifier for Basic Mobility: CN GOALS: Goals Goal Formulation: With Patient Time For Goal Achievement: 7 days Pt Will Go Supine To/From Sit: w/ Moderate Assist Pt Will Transfer Sit to Stand: w/ Moderate Assist Pt Will Ambulate: 11-30 Feet, w/ Walker, w/ Moderate Assist Pt Will Go Up / Down Stairs: 3-5 Stairs, w/ Moderate Assist PLAN: Plan Treatment Interventions: Mobility Training;Strengthening;Balance Activities Plan Frequency: 5 Days per Week PT Plan for Next Visit: continue EOB sitting balance; trial standing and transfers to chair as able RECOMMENDATIONS: PT Discharge Recommendations PT Discharge Recommendations: Inpatient Setting G-Codes: Mobility G8978 Current Status: 100% Impairment G8979 Goal Status: 60-79% Impairment Based on above evaluation and clinical judgment. Therapist: Dolores Sampson, PT Date: 07/02/2018 * Alonzo Watt APRN-NP - 07/02/2018 1:20 PM CDT Vascular Neurology Interval Note Valdez Caal a 57 y.o.maleis a 57 y.o. male with new onset Atrial Fibrillation with RVR, HTN, HLD, T2DM, Diabetic Retinopathy, OD Blindness, Neovascular Glaucoma, Prostate Cancer s/p prostatectomy, Urinary Retention s/p suprapubic catheter that was admitted at [facility] for urosepsis, DKA , A fib with RVR requiring cardizem ggt that was transferred for concerns for stroke. Patient found to have a R M1 occlusion. He underwent endovascular thrombectomy which was successful, TICI 3. MRI with bilateral temporal lobe infarcts, R insular cortex, R insular cortex, infarcts and small areas of hemorrhagic conversion. Exam: Currently he has left facial asymmetry, dense left hemiparesis and dysarthria. He follows commands but is impulsive at pulling his lines, thus he is in medical restraints. He has failed swallow and has Corpak in place. The stroke service has accepted Mr. Anthony in transfer from the ICU. Updated plan: - NPO, ELECTRIC RELAY TESTER to monitor swallow - Protein shake supplements - f/u on Blood Cxr's - Continue insulin gtt, consider endocrine consult - SBP <140 Alonzo Watt APRN-REFUGE MANAGER Vascular Neurology [id number] Associated attestation - Diego Gutierrez MD - 07/03/2018 7:21 AM CDT Formatting of this note may be different from the original. ATTESTATION I personally interviewed and examined the patient. I have reviewed the history , physical, impression and plan outlined by the Nurse Practitioner. The patient presents with (HPI) 57 M w Afib was transferred from OSH for L sided wks, found to have R MCA stroke, s/p EVT w TICI 3 perfusion, MRI shows moderate to large sided infarct, mainly inferior division territory. On examination there is left hemiplegia bur significant improvement compared to the hemiparesis he had on presentation. Was a bit agitated and confused. Followed most commands but he was restless asking for water all the time. My impression is cardioembolic ischemic stroke secondary to Afib My plan is restart AC in 10 days, needs ELECTRIC RELAY TESTER re-eval for get cleared otherwise PEG, Glu control Staff name: Diego Gutierrez MD Date: 07/03/2018 * Anthony Sparrow, MAXINE - 07/02/2018 10:44 AM CDT Two RN's attempted to nasal bridel patient but were unable to. ICU team notified. * Veronica Doyle MD - 07/02/2018 10:11 AM CDT Formatting of this note may be different from the original. ATTESTATION I have seen, personally fully evaluated, and discussed patient with Dr Valentino and the NEICU team. I agree with the objective findings and agree with the plan of care as documented by the resident with the exceptions noted. The patient is admitted with s/p acute ischemic stroke, Afib w RVR, hyperglycemia, dysphagia. Stroke etiology likely embolic, would like to resume low goal heparin gtt 5-7 days post stroke. ASA + atorva 40 Diltiazem 30 mg q6 h for intermittent RVR and also for HTN Inserted corpak, confirm placement, video swallow tomorrow. Start tube feeds Continue insulin drip while tube feeds being initiated, consult endocrine tomorrow for sq insulin transition tomorrow Hemoglobin stable, cont to monitor. Endoscopy at OSH without gastritis or ulceration, stop protonix Stable for transfer to tele. I spent 45 minutes (excluding time spent performing or supervising any procedures) providing and personally directing services, including reviewing imaging and laboratory results. Staff name: Veronica Doyle MD Date: 07/02/2018 * Jose Hubbard - 07/02/2018 9:06 AM CDT SPEECH-LANGUAGE PATHOLOGY CLINICAL SWALLOW ASSESSMENT EVALUATION SUMMARY Summary: Clinical swallow evaluation completed this date. Moderate-severe oropharyngeal dysphagia present at this time. Factors impacting dysphagia include: mental status and weakness s/p recent right sided CVA as well as likely baseline dysphagia present from unknown cause reported by pt's spouse. Overt coughing noted w/ thin and nectar thick liquids. Multiple swallows noted across consistencies presented indicating pharyngeal residue and/or laryngeal penetration. Pt's spouse reports that pt has baseline dysphagia, however unable to state cause. Spouse states that pt frequently coughs during meals, with liquids and solids. Spouse also reports that pt completed videoswallow evaluation at [facility], which she states yielded recommendations for honey thick liquids. This recommendation has not been followed by the pt since the videoswallow evaluation. Pt's spouse does not report any recent pneumonia. Given baseline dysphagia and current lethargy and weakness, anticipate pt is at high risk for aspiration at this time. Moderate dysarthria also present this date characterized primarily by imprecise articulatory precision. Pt demonstrated limited verbalizations this date, however his intelligibility in a quiet room to an unfamiliar listener was approximately 70-90%. Pt's spouse reports that pt has "mumbled speech" typically and that he is often difficult to understand. Please see further details below. RECOMMENDATIONS: Remain NPO at this time. Anticipate need for temporary alternative source of nutrition/medication/hydration. Initiate ice chip protocol (5-7 per hour). Frequent oral care to minimize risk for aspiration of bacteria in secretions. Complete videoswallow in near future to further assess swallow safety. Ongoing dysphagia assessment and treatment. Plan to complete cognitive- communication evaluation in near future. Oral Stage Summary*: Pt was able to withdraw boluses, frequently requiring verbal cues and occasional tactile cues were required. Formation/manipulation/ transfer of boluses appeared reduced likely due to lethargy/mental status as well as weakness. Anterior bolus spillage noted intermittently w/ thin liquids indicating reduced labial seal on left side. Oral holding of boluses intermittently noted w/ liquids, especially nectar thick liquids. Highly suspect premature posterior bolus spillage. Oral residue not directly observed however pt not consistently compliant w/ opening mouth following trials. Pharyngeal Stage Summary*: Swallow initiation appeared mildly delayed (2-6 seconds) across consistencies. Laryngeal elevation was reduced as judged via laryngeal palpation. Overt cough noted w/ initial thin liquid trial via tsp. Following this, intermittent overt cough noted w/ thin liquid trials. Consistent cough noted w/ trials of nectar thick liquids. Multiple swallows (2- 4 per bolus) noted across consistencies presented. Suspect pt is at high risk for aspiration at this time given weakness and current lethargy/mental status. Plan: Continue Treatment 3-5x/week. Prognosis: Fair NOMS Dysphagia Ratin1-Mhevbqvpym-Lsuxnf Dysphagia -Not able to swallow safely by mouth for nutrition/hydration but may take some consistency w/ consistent max cues in therapy only. Alternative method of feeding required. Results Reported to Physician: Yes Objective* Relevant Med Background: 57 y.o. 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 Arrival time to via helicopter at 1118. He received 2mg Ativan during the flight for agitation. On arrival he was transported urgently to CT. SBP on arrival was 130's. CTA head and neck with R M1 occlusion. CT perfusion scan obtained as ASPECTS score was 5-6. Perfusion scan found significant Penumbra to Infarct ratio (2.1). Pre-procedure NIHSS 34. Patient was taken immediately to IR room #1 for EVT. Unable to reach patients by phone so procedure was completed based on medical necessity. Procedure completed 1220, TICI [address] Perry. MRI: 1. Redemonstration of a right MCA infarct, [...] the posterior medial left temporal lobe. 3. Denominational of flow void within the right M1 segment, previously noted to be occluded. Handedness: Right Lives With: Spouse Psychosocial Status: Lethargic, Participates in Therapy with Encouragement Persons Present: Spouse Subjective* Pain: Patient has no complaint of pain Trach Presence: No Feeding Tube Present During Eval: None Nutrition* Nutrition Prior To Hospitalization: Regular, Thin Liquids Current Form Of Nutrition: NPO Oral Mech Exam Oral Mech WFL*: No Oral Mech Exam Summary*: Pt did not consistently follow simple, 1-step commands to complete oral mech. Facial asymmetry noted at rest and upon labial retraction (left sided lower facial weakness). Lingual ROM appeared adequate to right side, reduced to left side. Jaw ROM appeared WFL. Pt did not participate for lingual and jaw strength tasks. Vocal quality was slightly hoarse. Education* Persons Educated: Pt/Family Barriers To Learning: Decreased Cooperation, Impaired Communication, Decreased Alertness Interventions: Family Educated, Staff Educated Teaching Methods: Verbal, Demonstration Topics: Dysphagia Patient Response: Verbalized Understanding, More Instruction Required Goal Formulation: With Pt/Family Clinical Swallow Goals* Goal : Pt will tolerate ice chip protocol w/ less than 5% s/s of aspiration and w/o negative pulmonary status changes. Goal : Pt will participate in videoswallow evaluation given mild-mod cues. Therapist:BIANCA Lamb, Cesia/CCC-ELECTRIC RELAY TESTER Voalte: [id number] Date:07/02/2018 * Ciarra Valentino DO - 07/02/2018 6:57 AM CDT Formatting of this note may be different from the original. Neuro Critical Care Progress Note Valdez Anthony Admission Date: 07/01/2018 LOS: 1 day Full Code ASSESSMENT/PLAN Patient Active Problem List Diagnosis Date Noted Stroke (HCC) 07/01/2018 R M1 occlusion, successful thrombectomy on 07/01/18 (TICI 3) HTN (hypertension) 01/15/2016 Urinary retention with incomplete bladder emptying 01/15/2016 Diabetes (HCC) 01/15/2016 Proliferative diabetic retinopathy(362.02) 01/14/2013 Neovascular glaucoma 01/14/2013 Central retinal artery occlusion 01/14/2013 Valdez Anthony is a 57 y.o. male is a 57 y.o. male with new onset Atrial Fibrillation with RVR, HTN, HLD, T2DM, Diabetic Retinopathy, OD Blindness, Neovascular Glaucoma, Prostate Cancer s/p prostatectomy, Urinary Retention s/p suprapubic catheter that was admitted at [facility] for urosepsis, DKA , A fib with RVR requiring cardizem ggt that was transferred for concerns for stroke. LNK unknown. Not a candidate for tPA. NIH-SS upon arrival 34. CTA Head /Neck with R M1 occlusion. CTP with large perfusion mismatch in R MCA. Taken to IR s/p mechanical thrombectomy with TICI3. Hospital and ICU course: 07/01: Transferred to for concerns for stroke. R M1 occlusion s/p mechanical thrombectomy TICI3. 07/02: MRI with bilateral temporal lobe involvement. Small areas of hemorrhagic conversion. Neuro: R MCA Ischemic Stroke R M1 Occlusion s/p mechanical thrombectomy with TICI3 Risk Factors: Afib, HTN, HLD, T2DM Etiology: Cardio-embolic -07/01 CTA Head: 1. Focal M1 occlusion of R MCA. 2. Loss of lara-white differentiation of the R lateral temporal lobe, insula, and posterior lentiform nucleus. 3. Bilateral cavernous ICA atherosclerotic plaque resulting in narrowing of the L ICA -07/01 CTA Neck: 1. Mild atherosclerotic disease at the proximal internal carotid without narrowing. Otherwise, widely patent extracranial carotid and vertebral arteries. 2. Bilateral pleural effusions and hazy airspace opacities -07/01 CTP: Large perfusion mismatch within the majority of the peripheral right MCA vascular distribution with decreased cerebral blood volume within the right lateral temporal lobe, insula, and posterior lentiform nucleus suggesting smaller completed infarct. -07/01 CT Head: 1. Hyperdensity in the R lentiform nucleus with increased density through the R insula and anterior lateral temporal lobe, likely contrast staining. Hemorrhagic transformation unlikely. 2. No new loss of lara -white differentiation. 3. Unchanged supratentorial white matter hypodensities. -07/01 TTE: LVEF normal at 60%. RV function is normal. -07/02: MRI Head: R MCA infarct with greatest involvement of the R temporal lobe and insular cortex. Small areas of petechial type hemorrhagic conversion. Acute focal infarct of the R lentiform nucleus with small focal parenchymal hemorrhagic consistent hemorrhagic conversion. 2. Small acute cortical infract involving the medial L temporal lobe. 3. Denominational of flow void in the R M1. - Stroke Risk Factor Modification -LDL 44. Goal <70. 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 Goal <7.0 -Continue ASA. Will discuss timing of AC given Afib. -Goal BP <140 - PT/OT, Speech Consult - Consult to Rehab - Neuro-ICU monitoring, neurochecks q 1 hrs Encephalopathy -s/p Flumazenil 0.5mg x 2 -07/01 ABG 7.34/39/102/20.6 -07/01 EEG: Diffuse slowing indicative of encephalopathy. No seizures or epileptiform activity. -No sedation needs -Holding pilot boat captain Bupropion, Duloxetine Sedation/Pain Management: -s/p ativan 2mg and fentanyl 25mcg -s/p flumazenil 0.5 mg x 3 -No sedation needs at this time Cardiac: Afib with RVR -[id number]: 4: 4.8% Risk for stroke and 6.7% risk for stroke/TIA/systemic embolism -Required Cardizem ggt at OSH, stopped 06/30 -OSH Started on Heparin ggt, stopped 06/29 due to concerns for GI Bleed -07/01 TTE: Normal LVSF, EF of 60^. Normal RV Function. No thrombus. -Start ASA, holding AC -Dlitiazem 30mg q6h -Goal HR <120 HTN -Nicardipine ggt d/c 07/01 - SBP goal: <140 - MAP goal > 65 - Hydralazine prn SBP >140 - Continue pilot boat captain Lisinopril 20mg HLD - LDL 44. Goal LDL <70. Continue pilot boat captain atorvastatin 20mg Respiratory: Hypoxia likely 2/2 to DHRUV -RA -07/01 ABG 7.34/39/102/20.6/-4.6 - PaO2 goal >100, Spo2 goal >92% GI: Hematemesis, resolved -OSH EGD 06/29 without acute upper GI bleed s/p polypectomy - Feeding: NPO. Speech Consult. Start Enteral Feeds. - Bowel Regimen, Ensure daily BM Heme: Hematemesis, resolved -On Heparin ggt at OSH, stopped due to concerns for GI bleed -EGD 06/29 without source, felt hematemesis was from upper respiratory tract -Hgb 8.8 (8.7), Plts 401 - On ASA - Heparin ppx for DVT - Assess for coagulopathy, maintain platelets above 100k, INR <1.5 ID/: Urosepsis 2/2 urinary retention, s/p suprapubic catheter -UA OSH packed WBC, bacteria, UCx NGTD, finalized -Blood Cx X 2 OSH, 1/2 cultures growing coag neg staph -07/01 UA unremarkable, UCx pending -07/01 Lactic Acid 1.5, Blood Cx Pending -Continue CTX 1g q24h (Day 47) -F/u OSH Blood Cultures -F/u repeat Blood Cx -Aim for normothermia, Temp <38.3 celsius, normothermia protocol if febrile Renal/: Prostate CA s/p resection 2014, Urinary Retention 2/2 to stricture s/ p suprapubic catheter -Urology followed at [facility] s/p suprapubic catheter placement 06/29 - Aim for normovolemia - Consult to Urology for management of suprapubic catheter, appreciate recs Endocrine: T2DM, DKA - Presented at OSH with CO2 of 8, BG in 600s, started on Insulin ggt d/c 07/01 - Glucose upon arrival 166, BHB 0.1 - A1c 17.4 - Continue insulin ggt - Will consider Endocrine consult in AM after assessing insulin needs - Blood glucose goal 100-180mg/dl - Holding pilot boat captain Levemir 16 units and Novolog 5 units AC FEN: - No IVF. - Magnesium goal >2.0, i-Trace goal > 1.0, Potassium goal >4.0 mEq/L Prophylaxis Review: A)GI: None B) Lines: No C) Urinary Catheter: Yes; Retain johnson due to: Urinary retention D) Antibiotic Usage: Yes; Infection present or suspected: /GI; Urinary tract infection (UTI) E) VTE: SCDs, Heparin F) Isolation: None G)Seizures: None I) Restraints: Patient assessed for need for restraints. Disposition/Family: Unchanged. Primary service: NEICU, transfer to Neurology Stroke. Consults: Neurology Stroke SUBJECTIVE Valdez Anthony is a 57 y.o. male. Overnight Events: No new events noted. OBJECTIVE Vital Signs: Last Filed Vital Signs: 24 Hour Range BP: 147/58 (07/02 600) Temp: 37 C (98.6 F) (07/02 0400) Pulse: 117 (07/02 600) Respirations: 22 PER MINUTE (07/02 600) SpO2: 99 % (07/02 600) O2 Delivery: None (Room Air) (07/02 600) Height: 167.6 cm (66") (07/01 144) Weight: 71.6 kg (157 lb 13.6 oz) (07/01 144) BP: (113-175)/(7-98) Temp: [36.2 C (97.2 F)-37 C (98.6 F)] Pulse: [58-117] Respirations: [9 PER MINUTE-22 PER MINUTE] SpO2: [94 %-100 %] O2 Delivery: None (Room Air) Intensity Pain Scale (Self Report): (not recorded) Vitals: 07/01/18 1445 Weight: 71.6 kg (157 lb 13.6 oz) Artificial airway: None Ventilator/ Respiratory Therapy: No Vent weaning trial: Not applicable Lines: Peripheral Line Drains: Suprapubic Catheter Critical Care Vitals: ICP Monitoring: Hemodynamics/Oxycalcs: Intake/Output Summary: (Last 24 hours) Intake/Output Summary (Last 24 hours) at 07/02/18 0658 Last data filed at 07/02/18 0600 Gross per 24 hour Intake 1260.08 ml Output 1950 ml Net -689.92 ml Physical Exam: Blood pressure 147/58, pulse 117, temperature 37 C (98.6 F), height 167.6 cm (66"), weight 71.6 kg (157 lb 13.6 oz), SpO2 99 %. Antwon coma score: E: 4 - Opens eyes on own M: 6 - Follows simple motor commands V: 3 - Talks, but nonsensical Neuro: Mental Status: Somnolent, but arouses to external tactile and verbal stimuli. Significant dysarthria. Fluency difficult to assess given patient drowsiness, able to say short phrases. Follows one step commands. Cranial Nerves: R pupil non-reactive. L PERRL. R gaze preference, but able to cross midline. Responds to touch on face. No facial asymmetry noted. Hearing grossly intact to voice. Strong cough. Tongue midline. Motor: RUE/RLE 5/5. Neglect on left. LUE 3/5, LLE 2/5 Sensation: Localizes on R. Left sided neglect. Coordination: No ataxia noted Gait: Deferred Lungs: clear to auscultation bilaterally Heart: regular rate and rhythm Abdomen: soft, non-tender. Bowel sounds normal. No masses, no organomegaly Extremities: no edema, redness or tenderness in the calves or thighs Skin: Skin color, texture, turgor normal. No rashes or lesions Point of Care Testing: (Last 24 hours) Glucose: (!) 127 (07/02/18 0415) POC Glucose (Download): (!) 142 (07/02/18 06) Lab Review: 24-hour labs: Results for orders placed or performed during the hospital encounter of (from the past 24 hour(s)) HEMOGLOBIN A1C Collection Time: 07/01/18 12:50 PM Result Value Ref Range Hemoglobin A1C 17.4 (H) 4.0 - 6.0 % COMPREHENSIVE METABOLIC PANEL Collection Time: 07/01/18 12:50 PM Result Value Ref Range Sodium 138 137 - 147 MMOL/L Potassium 4.3 3.5 - 5.1 MMOL/L Chloride 113 (H) 98 - 110 MMOL/L Glucose 166 (H) 70 - 100 MG/DL Blood Urea Nitrogen 13 7 - 25 MG/DL Creatinine 0.95 0.4 - 1.24 MG/DL Calcium 7.9 (L) 8.5 - 10.6 MG/DL Total Protein 5.7 (L) 6.0 - 8.0 G/DL Total Bilirubin 0.3 0.3 - 1.2 MG/DL Albumin 2.8 (L) 3.5 - 5.0 G/DL Alk Phosphatase 117 (H) 25 - 110 U/L AST (SGOT) 10 7 - 40 U/L CO2 19 (L) 21 - 30 MMOL/L ALT (SGPT) 7 7 - 56 U/L Anion Gap 6 3 - 12 eGFR Non >60 >60 mL/min eGFR >60 >60 mL/min LIPID PROFILE Collection Time: 07/01/18 12:50 PM Result Value Ref Range Cholesterol 110 <200 MG/DL Triglycerides 124 <150 MG/DL HDL 42 >40 MG/DL LDL 44 <100 MG/DL VLDL 25 MG/DL Non HDL Cholesterol 68 MG/DL MAGNESIUM Collection Time: 07/01/18 12:50 PM Result Value Ref Range Magnesium 2.0 1.6 - 2.6 mg/dL PHOSPHORUS Collection Time: 07/01/18 12:50 PM Result Value Ref Range Phosphorus 2.6 2.0 - 4.0 MG/DL IONIZED CALCIUM Collection Time: 07/01/18 12:50 PM Result Value Ref Range Ionized Calcium 1.14 1.0 - 1.3 MMOL/L CBC AND DIFF Collection Time: 07/01/18 12:50 PM Result Value Ref Range White Blood Cells 9.5 4.5 - 11.0 K/UL RBC 2.96 (L) 4.4 - 5.5 M/UL Hemoglobin 8.7 (L) 13.5 - 16.5 GM/DL Hematocrit 26.3 (L) 40 - 50 % MCV 88.8 80 - 100 FL MCH 29.4 26 - 34 PG MCHC 33.0 32.0 - 36.0 G/DL RDW 13.9 11 - 15 % Platelet Count 297 150 - 400 K/UL MPV 9.0 7 - 11 FL Neutrophils 75 41 - 77 % Lymphocytes 15 (L) 24 - 44 % Monocytes 8 4 - 12 % Eosinophils 2 0 - 5 % Basophils 0 0 - 2 % Absolute Neutrophil Count 7.10 (H) 1.8 - 7.0 K/UL Absolute Lymph Count 1.50 1.0 - 4.8 K/UL Absolute Monocyte Count 0.80 0 - 0.80 K/UL Absolute Eosinophil Count 0.20 0 - 0.45 K/UL Absolute Basophil Count 0.00 0 - 0.20 K/UL LACTIC ACID (BG - RAPID LACTATE) Collection Time: 07/01/18 12:50 PM Result Value Ref Range Lactic Acid,BG 1.5 0.5 - 2.0 MMOL/L BETA HYDROXYBUTYRATE (KETONES) Collection Time: 07/01/18 12:50 PM Result Value Ref Range Beta Hydroxybutyrate 0.1 <0.3 MMOL/L LACTIC ACID(LACTATE) Collection Time: 07/01/18 12:50 PM Result Value Ref Range Lactic Acid 1.5 0.5 - 2.0 MMOL/L URINALYSIS DIPSTICK REFLEX TO CULTURE Collection Time: 07/01/18 12:53 PM Result Value Ref Range Color,UA STRAW Turbidity,UA CLEAR CLEAR-CLEAR Specific [place]-Urine 1.018 1.003 - 1.035 pH,UA 5.0 5.0 - 8.0 Protein,UA NEG NEG-NEG Glucose,UA 2+ (A) NEG-NEG Ketones,UA NEG NEG-NEG Bilirubin,UA NEG NEG-NEG Blood,UA 1+ (A) NEG-NEG Urobilinogen,UA NORMAL NORM-NORMAL Nitrite,UA NEG NEG-NEG Leukocytes,UA NEG NEG-NEG Urine Ascorbic Acid, UA NEG NEG-NEG URINALYSIS MICROSCOPIC REFLEX TO CULTURE Collection Time: 07/01/18 12:53 PM Result Value Ref Range WBCs,UA 0-2 0 - 2 /HPF RBCs,UA 2-10 0 - 3 /HPF Comment,UA Urine submitted for reflex culture if criteria are met:WBC>10, positive nitrite and/or >=1+ leukocyte esterase. If quantity is not sufficient, an addendum will follow. MucousUA TRACE POC GLUCOSE Collection Time: 07/01/18 1:02 PM Result Value Ref Range Glucose, POC 169 (H) 70 - 100 MG/DL POC GLUCOSE Collection Time: 07/01/18 3:05 PM Result Value Ref Range Glucose, POC 195 (H) 70 - 100 MG/DL BLOOD GASES, ARTERIAL Collection Time: 07/01/18 3:06 PM Result Value Ref Range pH-Arterial 7.34 (L) 7.35 - 7.45 pCO2-Arterial 39 35 - 45 MMHG pO2-Arterial 102 (H) 80 - 100 MMHG Base Deficit-Arterial 4.6 MMOL/L O2 Sat-Arterial 97.5 95 - 99 % Thhmnwqrbpo-DWZ-Fyj 20.6 (L) 21 - 28 MMOL/L POC GLUCOSE Collection Time: 07/01/18 4:04 PM Result Value Ref Range Glucose, POC 195 (H) 70 - 100 MG/DL POC GLUCOSE Collection Time: 07/01/18 5:10 PM Result Value Ref Range Glucose, POC 154 (H) 70 - 100 MG/DL POC GLUCOSE Collection Time: 07/01/18 6:03 PM Result Value Ref Range Glucose, POC 169 (H) 70 - 100 MG/DL POC GLUCOSE Collection Time: 07/01/18 6:59 PM Result Value Ref Range Glucose, POC 190 (H) 70 - 100 MG/DL POC GLUCOSE Collection Time: 07/01/18 8:07 PM Result Value Ref Range Glucose, POC 184 (H) 70 - 100 MG/DL POC GLUCOSE Collection Time: 07/01/18 9:18 PM Result Value Ref Range Glucose, POC 184 (H) 70 - 100 MG/DL POC GLUCOSE Collection Time: 07/01/18 10:07 PM Result Value Ref Range Glucose, POC 208 (H) 70 - 100 MG/DL POC GLUCOSE Collection Time: 07/01/18 11:03 PM Result Value Ref Range Glucose, POC 128 (H) 70 - 100 MG/DL POC GLUCOSE Collection Time: 07/02/18 12:05 AM Result Value Ref Range Glucose, POC 155 (H) 70 - 100 MG/DL POC GLUCOSE Collection Time: 07/02/18 1:12 AM Result Value Ref Range Glucose, POC 147 (H) 70 - 100 MG/DL POC GLUCOSE Collection Time: 07/02/18 2:02 AM Result Value Ref Range Glucose, POC 113 (H) 70 - 100 MG/DL POC GLUCOSE Collection Time: 07/02/18 3:06 AM Result Value Ref Range Glucose, POC 116 (H) 70 - 100 MG/DL POC GLUCOSE Collection Time: 07/02/18 4:00 AM Result Value Ref Range Glucose, POC 129 (H) 70 - 100 MG/DL IONIZED CALCIUM Collection Time: 07/02/18 4:15 AM Result Value Ref Range Ionized Calcium 1.14 1.0 - 1.3 MMOL/L MAGNESIUM Collection Time: 07/02/18 4:15 AM Result Value Ref Range Magnesium 1.9 1.6 - 2.6 mg/dL PHOSPHORUS Collection Time: 07/02/18 4:15 AM Result Value Ref Range Phosphorus 2.6 2.0 - 4.0 MG/DL BASIC METABOLIC PANEL Collection Time: 07/02/18 4:15 AM Result Value Ref Range Sodium 140 137 - 147 MMOL/L Potassium 4.2 3.5 - 5.1 MMOL/L Chloride 113 (H) 98 - 110 MMOL/L CO2 20 (L) 21 - 30 MMOL/L Anion Gap 7 3 - 12 Glucose 127 (H) 70 - 100 MG/DL Blood Urea Nitrogen 12 7 - 25 MG/DL Creatinine 0.88 0.4 - 1.24 MG/DL Calcium 8.5 8.5 - 10.6 MG/DL eGFR Non >60 >60 mL/min eGFR >60 >60 mL/min CBC Collection Time: 07/02/18 4:15 AM Result Value Ref Range White Blood Cells 10.3 4.5 - 11.0 K/UL RBC 3.17 (L) 4.4 - 5.5 M/UL Hemoglobin 8.8 (L) 13.5 - 16.5 GM/DL Hematocrit 28.2 (L) 40 - 50 % MCV 88.8 80 - 100 FL MCH 27.8 26 - 34 PG MCHC 31.3 (L) 32.0 - 36.0 G/DL RDW 14.0 11 - 15 % Platelet Count 401 (H) 150 - 400 K/UL MPV 8.9 7 - 11 FL POC GLUCOSE Collection Time: 07/02/18 5:00 AM Result Value Ref Range Glucose, POC 125 (H) 70 - 100 MG/DL POC GLUCOSE Collection Time: 07/02/18 6:05 AM Result Value Ref Range Glucose, POC 142 (H) 70 - 100 MG/DL Radiology and Other Diagnostic Procedures Review: Pertinent radiologic and diagnostic procedures reviewed. Ciarra Valentino DO Date: 07/02/[phone] Associated attestation - Veronica Doyle MD - 07/02/2018 10:31 AM CDT Formatting of this note may be different from the original. ATTESTATION See separate attestation note on the same date. Staff name: Veronica Doyle MD Date: 07/02/2018 * Noris Marie - 07/01/2018 6:50 PM CDT 25 minute STAT EEG performed bedside without difficulty. * Chris Lopez, RT - 07/01/2018 4:51 PM CDT RT Adult Assessment Note NAME:Valdez Anthony :1960 AGE: 57 y.o. ADMISSION DATE: 07/01/2018 DAYS ADMITTED: LOS: 0 days RT Treatment Plan: Protocol Plan: Procedures NTS: PRN PAP: Place a nursing order for "IS Q1h While Awake" for any of Lung Expansion indicators Oxygen/Humidity: O2 to keep SpO2 > 92% Monitoring: Pulse oximetry BID & PRN Additional Comments: Impressions of the patient:Pt. Unable to participate in therapy Intervention(s)/outcome(s):NTS prn for airway management Patient education that was completed: Unable to participate Recommendations to the care team: None Vital Signs: Pulse: Pulse: 69 RR: Respirations: 14 PER MINUTE SpO2: SpO2: 99 % O2 Device: $$ O2 Device: Cannula Liter Flow: O2 Liter Flow: 2 lpm O2%: Breath Sounds: Respiratory Effort: Respiratory Effort: Non-Labored * Jerry Baker MD - 07/01/2018 3:49 PM CDT Brief Urology Note The patient was transferred from an outside hospital today after suffering acute ischemic stroke in setting of atrial fibrillation, also with urosepsis and suprapubic catheter placed at [facility] secondary to urinary retention and inability to place johnson catheter. The patient has been previously seen by Urology service in 2016 for difficult johnson catheterization, he was found to have urethral stricture and bladder neck contracture related to prior history of radical retropubic prostatectomy. PLAN - routine suprapubic catheter care per nursing while inpatient - recommend culture directed antibiotic therapy for presumed urosepsis - once patient is more communicative, recommend clarifiying patient's urologic management - if patient prefers to continue to follow with his exisiting home urologist, no need for urologic involvement - if patient would prefer to transition care to Urology we are happy to assist with outpatient follow up Jerry Baker MD Urology director special education Please page director special education with concerns * Jaycob Ramos DO - 07/01/2018 3:49 PM CDT Attempted to see pt today but he was off the unit. Will attempt to see pt . * Veronica Doyle MD - 07/01/2018 2:45 PM CDT Formatting of this note may be different from the original. ATTESTATION I have seen, personally fully evaluated, and discussed patient with Dr Valentino and the NEICU team. I agree with the objective findings and agree with the plan of care as documented by the resident with the exceptions noted. The patient is critically ill with acute ischemic stroke s/p EVT, Afib, hyperglycemia, UTI. Patient very somnolent upon arrival to NEICU, mild improvement with administering flumazenil [address] dose[address] Repeat CT head with small area of contrast staining vs hemorrhagic transformation. O/e: constant stimulation to stay awake, right gaze preference, crosses midline but not all the way, FC right side, left side 0/5, grimaces to nox stim on LUE - MRI brain w/wo contrast - SBP goal < 140 mmHg - rate controlled currently, no heparin gtt until 24 hours post intervention - s/p rocephin at OSH, miranda culture - urology consultation for suprapubic catheter recs - monitor Hb due to reported acute anemia at OSH and positive FOBT, IV Protonix 40 mg daily until then - if patient becomes hyperglycemic, reinitiate insulin infusion to calculate daily requirement I spent 45 minutes (excluding time spent performing or supervising any procedures) providing and personally directing critical care services, including reviewing imaging and laboratory results. Staff name: Veronica Doyle MD Date: 07/01/2018 * Whit Guadarrama MS,[facility]-ELECTRIC RELAY TESTER - 07/01/2018 1:36 PM CDT SPEECH-LANGUAGE PATHOLOGY NO TREATMENT NOTE Order received and appreciated for clinical swallow evaluation. Chart reviewed and made contact with RN. Pt currently with another provider and with decreased level of arousal/responsiveness following ativan administration in the helicopter. ELECTRIC RELAY TESTER will hold at this time per discussion with RN. ELECTRIC RELAY TESTER will follow up and will complete evaluation when pt medically appropriate. Addendum 15:20: pt remains somnolent and unable to sustain adequate level of arousal to participate in clinical swallow evaluation per discussion with RN. ELECTRIC RELAY TESTER will return to complete evaluation when appropriate. Chart review: Mr. Anthony presented to [facility] on 06/29 with uro-sepsis and DKA. Supra-pubic catheter placed on 06/29 due to multiple unsuccessful attempts at catheterization. Coumadin was stopped and he was on Heparin gtt as well as Cardizem/Insulin gtt. A-fib had converted to SR. Heparin gtt and Cardizem were then stopped on 06/30. Insulin gtt was stopped on 07/01. On the morning of 07/01 he was found by nursing staff to be non verbal with left hemiplegia. He was accepted for transfer by for further evaluation of stroke. Arrival time to via helicopter at 1118. Transported urgently to CT and then to IR for EVT. CTA head: 1. Focal M1 occlusion of [...] posterior lentiform nucleus suggesting smaller completed infarct. Therapist: Whit Guadarrama MS,[facility]-ELECTRIC RELAY TESTER [id number] Date: 07/01/2018 * Mari Mullen RN - 07/01/2018 1:25 PM CDT Asked to draw blood cultures. Please consult the lab to draw the blood, if they are unable, please consult IV team and state in the consult "lab unable to obtain". Spoke to the nurse. * Anthony Sparrow, MAXINE - 07/01/2018 1:15 PM CDT IV therapy contacted due to RNs being able to obtain second set of blood cultures. IV therapy RN Mari Mullen states per algorithm to contact phlebotomy. They have been paged who have been paged. * Heidi Wilson RN - 07/01/2018 12:18 PM CDT Sedation physician present in room. Recent vitals and patient condition reviewed between sedating physician and nurse. Reassessment completed. Determination made to proceed with planned sedation. in this encounter H&P Notes * Roberto Dutta MD - 07/08/2018 12:00 PM CDT Formatting of this note may be different from the original. Pre Procedure History and Physical/Sedation Plan Name:Valdez Anthony :1960 Age: 57 y.o. Date of Service: 07/08/18 Date of Procedure: 07/08/2018 Planned Procedure(s): GI: EGD and Colonoscopy Sedation/Medication Plan: MAC (Monitored Anesthesia Care) Discussion/Reviews: Physician has discussed risks and alternatives of this type of sedation and above planned procedures with patient Chief Complaint: Inpatient chart reviewed History of Present Illness: Valdez Anthony is a 57 y.o. male as above Previous Anesthetic/Sedation History: Yes Past Medical History: Diagnosis Date Arthritis DM (diabetes mellitus) (HCC) DM eyes Glaucoma neovascular Hypertension Past Surgical History: Procedure Laterality Date HX RETINAL LASER Pertinent medical/surgical history reviewed Pertinent family history reviewed Social History Substance Use Topics Smoking status: Former Smoker Packs/day: 2.00 Years: 20.00 Types: Cigars Quit date: 10/20/2011 Smokeless tobacco: Never Used Alcohol use No History Drug Use No Allergies: Patient has no known allergies. Medications Current Facility-Administered Medications Medication acetaminophen (TYLENOL) oral solution 650 mg amLODIPine (NORVASC) tablet 5 mg aspirin chewable tablet 81 mg atorvastatin (LIPITOR) tablet 40 mg bisacodyl (DULCOLAX) rectal suppository 10 mg heparin (porcine) PF syringe 5,000 Units hydrALAZINE (APRESOLINE) injection 10-20 mg insulin aspart U-100 (NOVOLOG FLEXPEN) injection PEN 0-7 Units insulin aspart U-100 (NOVOLOG FLEXPEN) injection PEN 5 Units insulin glargine (LANTUS SOLOSTAR, BASAGLAR) injection PEN 25 Units labetalol (NORMODYNE) injection 10 mg lisinopril (PRINIVIL; ZESTRIL) tablet 40 mg metoprolol tartrate (LOPRESSOR) tablet 12.5 mg nortriptyline (PAMELOR) capsule 10 mg polyethylene glycol 3350 (MIRALAX) packet 17 g QUEtiapine (SEROQUEL) tablet 25 mg senna/docusate (SENOKOT-S) solution 10 mL Review of Systems: A 14 point review of systems was negative except for: HPI Physical Exam: Temp: 36.9 C (98.4 F) (07/08 114) Pulse: 65 (07/08 114) Respirations: 16 PER MINUTE (07/08 1141) BP: 111/51 (07/08 1141) General appearance: alert, cooperative and no distress Head: Normocephalic, atraumatic Eyes: No scleral icterus Oropharynx: No erythema, ulcers Neck: supple Lungs: clear to auscultation bilaterally Heart: regular rate and rhythm, S1, S2 normal, no murmur, click, rub or gallop Abdomen: Soft, non-tender, non- distended, no masses palpable, no organomegaly, BS+ve Neurologic: No focal deficits Skin: no obvious rashes Musculoskeletal: No obvious joint inflammation Extremities: No pedal edema noted @ Airway: per anesthesia Anesthesia Classification: Per Anesthesia NPO Status: Yes Status: N/A Lab/Radiology/Other Diagnostic Tests Labs: Hematology: Lab Results Component Value Date HGB 9.3 07/08/2018 HCT 27.5 07/08/2018 PLTCT 521 07/08/2018 WBC 21.7 07/08/2018 NEUT 85 07/08/2018 ANC 18.40 07/08/2018 ALC 1.50 07/08/2018 RBC 3.04 07/08/2018 JEFFREY 8 07/08/2018 AMC 1.70 07/08/2018 EOSA 0 07/08/2018 ABC 0.00 07/08/2018 MCV 90.4 07/08/2018 MCH 30.4 07/08/2018 MCHC 33.6 07/08/2018 MPV 8.0 07/08/2018 RDW 14.2 07/08/2018 , Coagulation: Lab Results Component Value Date PTT 32.5 01/15/2016 INR 1.1 01/15/2016 and General Chemistry: Lab Results Component Value Date NA 138 07/08/2018 K 3.6 07/08/2018 CL 104 07/08/2018 CO2 26 07/08/2018 GAP 8 07/08/2018 BUN 6 07/08/2018 CR 1.05 07/08/2018 GLU 79 07/08/2018 CA 8.5 07/08/2018 ALBUMIN 3.1 07/08/2018 LACTIC 1.5 07/01/2018 OBSCA 1.14 07/02/2018 MG 1.9 07/02/2018 TOTBILI 0.7 07/08/2018 Roberto Dutta MD Pager * Roberto Dutta MD - 07/08/2018 10:39 AM CDT Formatting of this note may be different from the original. Pre Procedure History and Physical/Sedation Plan Name:Valdez Anthony :1960 Age: 57 y.o. Date of Service: 07/08/18 Date of Procedure: 07/08/2018 Planned Procedure(s): GI: EGD and Colonoscopy Sedation/Medication Plan: MAC (Monitored Anesthesia Care) Discussion/Reviews: Physician has discussed risks and alternatives of this type of sedation and above planned procedures with patient Chief Complaint: Inpatient chart reviewed History of Present Illness: Valdez Anthony is a 57 y.o. male Previous Anesthetic/Sedation History: Yes Past Medical History: Diagnosis Date Arthritis DM (diabetes mellitus) (HCC) DM eyes Glaucoma neovascular Hypertension Past Surgical History: Procedure Laterality Date HX RETINAL LASER Pertinent medical/surgical history reviewed Pertinent family history reviewed Social History Substance Use Topics Smoking status: Former Smoker Packs/day: 2.00 Years: 20.00 Types: Cigars Quit date: 10/20/2011 Smokeless tobacco: Never Used Alcohol use No History Drug Use No Allergies: Patient has no known allergies. Medications Current Facility-Administered Medications Medication [MAR Hold] acetaminophen (TYLENOL) oral solution 650 mg [MAR Hold] amLODIPine (NORVASC) tablet 5 mg [DEC Hold] aspirin chewable tablet 81 mg [DEC Hold] atorvastatin (LIPITOR) tablet 40 mg [DEC Hold] bisacodyl (DULCOLAX) rectal suppository 10 mg [DEC Hold] heparin (porcine) PF syringe 5,000 Units [DEC Hold] hydrALAZINE (APRESOLINE) injection 10-20 mg [DEC Hold] insulin aspart U-100 (NOVOLOG FLEXPEN) injection PEN 0-7 Units [DEC Hold] insulin aspart U-100 (NOVOLOG FLEXPEN) injection PEN 5 Units [DEC Hold] insulin glargine (LANTUS SOLOSTAR, BASAGLAR) injection PEN 25 Units [DEC Hold] labetalol (NORMODYNE) injection 10 mg [DEC Hold] lisinopril (PRINIVIL; ZESTRIL) tablet 40 mg [DEC Hold] metoprolol tartrate (LOPRESSOR) tablet 12.5 mg [DEC Hold] nortriptyline (PAMELOR) capsule 10 mg [DEC Hold] polyethylene glycol 3350 (MIRALAX) packet 17 g [DEC Hold] QUEtiapine (SEROQUEL) tablet 25 mg [DEC Hold] senna/docusate (SENOKOT-S) solution 10 mL Review of Systems: A 14 point review of systems was negative except for: HPI Physical Exam: Temp: 37.1 C (98.7 F) (07/08 949) Pulse: 73 (07/08 949) Respirations: 18 PER MINUTE (07/08 949) BP: 135/60 (07/08 949) General appearance: alert, cooperative and no distress Head: Normocephalic, atraumatic Eyes: No scleral icterus Oropharynx: No erythema, ulcers Neck: supple Lungs: clear to auscultation bilaterally Heart: regular rate and rhythm, S1, S2 normal, no murmur, click, rub or gallop Abdomen: Soft, non-tender, non- distended, no masses palpable, no organomegaly, BS+ve Neurologic: No focal deficits Skin: no obvious rashes Musculoskeletal: No obvious joint inflammation Extremities: No pedal edema noted @ Airway: per anesthesia Anesthesia Classification: Per Anesthesia NPO Status: Yes Status: N/A Lab/Radiology/Other Diagnostic Tests Labs: Hematology: Lab Results Component Value Date HGB 9.3 07/08/2018 HCT 27.5 07/08/2018 PLTCT 521 07/08/2018 WBC 21.7 07/08/2018 NEUT 85 07/08/2018 ANC 18.40 07/08/2018 ALC 1.50 07/08/2018 RBC 3.04 07/08/2018 JEFFREY 8 07/08/2018 AMC 1.70 07/08/2018 EOSA 0 07/08/2018 ABC 0.00 07/08/2018 MCV 90.4 07/08/2018 MCH 30.4 07/08/2018 MCHC 33.6 07/08/2018 MPV 8.0 07/08/2018 RDW 14.2 07/08/2018 , Coagulation: Lab Results Component Value Date PTT 32.5 01/15/2016 INR 1.1 01/15/2016 and General Chemistry: Lab Results Component Value Date NA 138 07/08/2018 K 3.6 07/08/2018 CL 104 07/08/2018 CO2 26 07/08/2018 GAP 8 07/08/2018 BUN 6 07/08/2018 CR 1.05 07/08/2018 GLU 79 07/08/2018 CA 8.5 07/08/2018 ALBUMIN 3.1 07/08/2018 LACTIC 1.5 07/01/2018 OBSCA 1.14 07/02/2018 MG 1.9 07/02/2018 TOTBILI 0.7 07/08/2018 Roberto Dutta MD Pager * Ciarra Valentino, DO - 07/01/2018 1:10 PM CDT Formatting of this note may be different from the original. Neuro Critical Care History and Physical Note Valdez Anthony Admission Date: 07/01/2018 LOS: 0 days Full Code ASSESSMENT/PLAN Patient Active Problem List Diagnosis Date Noted Stroke (HCC) 07/01/2018 HTN (hypertension) 01/15/2016 Urinary retention with incomplete bladder emptying 01/15/2016 Diabetes (HCC) 01/15/2016 Proliferative diabetic retinopathy(362.02) 01/14/2013 Neovascular glaucoma 01/14/2013 Central retinal artery occlusion 01/14/2013 Valdez Anthony is a 57 y.o. male with new onset Atrial Fibrillation with RVR, HTN , HLD, T2DM, Diabetic Retinopathy, OD Blindness, Neovascular Glaucoma, Prostate Cancer s/p prostatectomy, Urinary Retention s/p suprapubic catheter that was admitted at [facility] for urosepsis, DKA, A fib with RVR requiring cardizem ggt that was transferred for concerns for stroke. LNK unknown. Not a candidate for tPA. NIH-SS upon arrival 34. CTA Head/Neck with R M1 occlusion. CTP with large perfusion mismatch in R MCA. Taken to IR s/p mechanical thrombectomy with TICI3. Hospital and ICU course: 07/01: Transferred to for concerns for stroke. R M1 occlusion s/p mechanical thrombectomy TICI3. Neuro: R MCA Ischemic Stroke R M1 Occlusion s/p mechanical thrombectomy with TICI3 Risk Factors: Afib, HTN, HLD, T2DM Etiology: Cardio-embolic -CTA Head: 1. Focal M1 occlusion of R MCA. 2. Loss of lara-white differentiation of the R lateral temporal lobe, insula, and posterior lentiform nucleus. 3. Bilateral cavernous ICA atherosclerotic plaque resulting in narrowing of the L ICA -CTA Neck: 1. Mild atherosclerotic disease at the proximal internal carotid without narrowing. Otherwise, widely patent extracranial carotid and vertebral arteries. 2. Bilateral pleural effusions and hazy airspace opacities -CTP: Large perfusion mismatch within the majority of the peripheral right MCA vascular distribution with decreased cerebral blood volume within the right lateral temporal lobe, insula, and posterior lentiform nucleus suggesting smaller completed infarct. - MRI brain w/out contrast - Stroke Risk Factor Modification -Lipid Panel and A1c. 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 Bupropion, Duloxetine Sedation/Pain Management: -s/p ativan 2mg and fentanyl 25mcg -s/p flumazenil 0.5 mg x 2 -No sedation needs at this time Cardiac: Afib with RVR -[id number]: 4: 4.8% Risk for stroke and 6.7% risk for stroke/TIA/systemic embolism -Required Cardizem ggt at OSH, stopped 06/30 -Started on Heparin ggt, stopped 06/29 due to concerns for GI Bleed -Start ASA, holding AC -Holding po cardizem -Goal HR <120 -TTE as above HTN - SBP goal: <140 - MAP goal > 65 - Start Nicardipine ggt - Hydralazine prn SBP >140 - Hold prn labetalol due to bradycardia at OSH - Holding 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 Goal LDL <70. 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 NS IVF at 75ml/hr. Speech Consult - Ensure daily BM Heme: Hematemesis, Positive Stool Occult -On Heparin ggt at OSH, stopped due to concerns for GI bleed -EGD 06/29 without source - Repeat CBC, stool occult - Hold AC - Assess for coagulopathy, maintain platelets above 100k, INR <1.5 ID/: Urosepsis 2/2 urinary retention, s/p suprapubic catheter -UA OSH packed WBC, bacteria, UCX NGTD, finalized -Blood Cx X 2 OSH, 1/2 cultures growing coag neg staph -Continue CTX 1g q24h -F/u OSH Cultures -Repeat UA, Urine Culture -Repeat Blood Cultures, Lactic Acid -Aim for normothermia, Temp <38.3 celsius, normothermia protocol if febrile Renal/: Prostate CA s/p resection 2014, Urinary Retention 2/2 to stricture s/ p suprapubic catheter, -Urology followed at [facility] s/p suprapubic catheter placement 06/29 - NPO, NS IVF at 75ml/hr - Aim for normovolemia Endocrine: T2DM, DKA - Presented at OSH with CO2 of 8, BG in 600s, started on Insulin ggt d/c 07/01 - 07/01 POC glucose 169 - Repeat BMP, BHB - Start Insulin ggt - Blood glucose goal 100-180mg/dl - Holding pilot 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 Disposition/Family: Unchanged. Primary service: NEICU Consults: Neurology Stroke SUBJECTIVE Chief Complaint: R MCA Stroke History of Present Illness: Valdez Anthony is a 57 y.o. male with new onset Atrial Fibrillation with RVR, HTN, HLD, T2DM, Diabetic Retinopathy, OD Blindness , Neovascular Glaucoma, Prostate Cancer s/p prostatectomy, Urinary Retention s/ p suprapubic catheter that was admitted at [facility] for urosepsis, DKA, A fib with RVR requiring cardizem ggt that was transferred for concerns for stroke. Admitted on 06/28 to [facility] with week history of cough, SOB. Found to have UTI with urosepsis and DKA with CO2 of 8, BG in 600s. Admitted to the ICU at [facility]. Started on CTX and Insulin ggt. While in the ICU he was found to be Afib with RVR, Cardiology was consulted and pt was started on Cardizem and Heparin ggt. Heparin ggt stopped due to concerns for hematemesis and upper GI bleed. He was taken to the OR, EGD was performed 06/29 without source of bleed, underwent polypectomy for duodenal polyp. Achieved rate control 06/30 and was switched to oral Cardizem. Urology consulted for urinary retention, suprapubic catheter was placed 06/29. On AM of 07/01 around 0800, was found to be acutely unresponsive with left sided weakness, aphasia. LNK unkown. Not given tPA, transferred to for further evaluation. In route, became acutely agitated, given 2mg of Ativan. Past Medical History: Diagnosis Date Arthritis DM (diabetes mellitus) (HCC) DM eyes Glaucoma neovascular Hypertension Past Surgical History: Procedure Laterality Date HX RETINAL LASER Family history reviewed; non-contributory Social History Social History Narrative No narrative on file Social History Non-contributory Code Status: Full Code Decision Maker: Patient or Immunizations (includes history and patient reported): There is no immunization history on file for this patient. Allergies: Patient has no known allergies. Prescriptions Prior to Admission Medication Sig amLODIPine (NORVASC) 5 mg tablet Take 2.5 mg by mouth twice daily. buPROPion (WELLBUTRIN) 75 mg tablet Take 75 mg by mouth twice daily. ERGOCALCIFEROL (VITAMIN D2) (VITAMIN D PO) Take 2,000 Units by mouth daily. ferrous sulfate 325 mg (65 mg iron) tablet Take 325 mg by mouth twice daily. FLUoxetine(+) (PROZAC) 40 mg capsule Take 40 mg by mouth twice daily. gabapentin (NEURONTIN) 600 mg tablet Take 600 mg by mouth three times daily. glipiZIDE (GLUCOTROL) 10 mg tablet Take 10 mg by mouth. Take 1 and 1/2 tablets (15 mg) Daily. HYDROcodone/acetaminophen (NORCO; VICODIN) 5-325 mg tablet Take 1 Tab by mouth every 6 hours as needed for Pain INSULIN ASPART (NOVOLOG SC) Inject 5 Units into area(s) as directed three times daily before meals. insulin detemir(+) (LEVEMIR) 100 unit/mL soln Inject 5 Units into area(s) as directed at bedtime daily. lisinopril (PRINIVIL; ZESTRIL) 10 mg tablet Take 10 mg by mouth twice daily. metoprolol XL (TOPROL XL) 25 mg tablet Take 25 mg by mouth daily. traZODone (DESYREL) 50 mg tablet Take 50 mg by mouth at bedtime daily. Review of Systems: All other systems reviewed and are negative. OBJECTIVE Vital Signs: Last Filed Vital Signs: 24 Hour Range BP: 170/77 (07/01 1220) Pulse: 62 (07/01 1225) Respirations: 14 PER MINUTE (07/01 1225) SpO2: 97 % (07/01 1225) O2 Delivery: Nasal Cannula (07/01 1225) BP: (129-175)/(73-98) Pulse: [62-67] Respirations: [9 PER MINUTE-19 PER MINUTE] SpO2: [96 %-100 %] O2 Delivery: Nasal Cannula Intensity Pain Scale (Self Report): (not recorded) There were no vitals filed for this visit. Artificial airway: None and Tracheostomy Tube Ventilator/ Respiratory Therapy: No Vent weaning trial: Not applicable Lines: Peripheral Line Drains: Suprapubic catheter Critical Care Vitals: ICP Monitoring: Hemodynamics/Oxycalcs: Intake/Output Summary: (Last 24 hours) No intake or output data in the 24 hours ending 07/01/18 1310 Physical Exam: Blood pressure 170/77, pulse 62, SpO2 97 %. NIH Stroke Scale Item Scoring Definition Score 1a. LOC 0=alert and responsive 1=arousable to minor stimulation 2=arousable only to painful stimulation 3=reflex responses or unrousable 2 1b. LOC questions-as patients age and month. Must be exact. 0=both correct 1=one correct (or dysarthria, intubated, foreign language) 2=neither correct 2 1c. 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, assistant guest services manager and release non-paretic hand (other 1 step commands or mimic OK) 0=both correct (ok if impaired by weakness) 1=one correct 2=neither correct 2 2. Best Gaze-horizontal EOM by voluntary or Dolls 0=normal 1=partial gaze palsy (abnormal gaze in one or both eyes) 2=forced eye deviation or total paresis which cannot be overcome by Dolls 1 3. Visual Field-use visual threat if necessary. If monocular, score field of good eye 0=no visual loss 1=partial hemianopia, quadrantanopia, extinction 2=complete hemianopia 3=bilateral hemianopia or blindness 1 4. Facial Palsy-if stuporous, check symmetry of grimace to pain 0=normal 1=minor paralysis, flat NLF, asymm smile 2=partial paralysis (lower face=UMN) 3=complete paralysis (upper and lower face) 1 5. Motor Arm-arms outstretched 90 deg (sitting) or 45 deg (supine) for 10 seconds. Encourage best effort. 0=no drift x 10 seconds 1=drift but doesnt hit bed 2=some antigravity effort, but cant sustain 3=no antigravity effort, but even minimal mvt counts 4=no movement at all X=unable to assess due to amputation, fusion, etc L/R 4/2 6. Motor Leg-raise leg to 30 degrees supine x 5 seconds 0=no drift x 5 seconds 1=drift but doesnt hit bed 2=some antigravity effort, but cant sustain 3=no antigravity effort, but even minimal mvt counts 4=no movement at all X=unable to assess due to amputation, fusion, etc L/R 4/3 7. Limb Ataxia-check finger-nose- finger; heel-palencia; and score only if out of proportion to paralysis 0=no ataxia (or aphasic, hemiplegic) 1=ataxia in upper or lower extremity 2=ataxia in upper AND lower extremity X=unable to assess due to amputation, fusion, etc X 8. Sensory-use safety pin. Check grimace or withdrawal if stuporous. Score only stroke- related losses 0=normal 1=mild-mod unilateral loss but patient aware of touch 9or aphasic, confused) 2=total loss, pt unaware of touch. Coma, bilateral loss 2 9. Best Language-describe cookie jar picture, name objects, read sentences. May use repeating, writing, stereognosis 0=normal 1=mild-mod aphasia (diff but partly comprehensible) 2=severe aphasia (almost no info exchanged) 3=mute, global aphasia, coma. No 1 step commands 3 10. Dysarthria-read list of words 0=normal 1=mild-mod; slurred but intelligible 2=severe; unintelligible or mute 3 11. Extinction/Neglect- simultaneously touch patient on both hands, show fingers in both visual munoz, ask about deficit, left hand 0=normal, none detected. (visual loss alone) 1=neglects or extinguishes to double simult stimulation in any modality 2=profound neglect in more than one modality 2 Score 32 Only coma score: E: 2 - Opens eyes with pain M: 4 - Moves part of body but does not remove noxious stimulus V: 2 - Moans, makes unintelligible sounds Neuro exam: Mental status: Stuporous Speech: Normal Abnormal Fluency X Comprehension X Articulation X Repetition X Naming X Cranial Nerves: Normal Abnormal II R Eye blindness, non reactive pupil. L PERRL III, IV, R gaze preference, able to overcome V Grimaces to pain VII Mild L nasolabial flattening VIII Awakens to voice IX, X Gag present XI Holds head midline XII Tongue midline Muscle/motor: Exam limited by clinical state Muscle strength: LUE 0/5. LLE 0/5. RUE 4/5, RLE 2/5. Sensation: Localizes to pain in RUE. Withdraws to pain in RLE. Flinches to pain in LUE, does not respond in LLE. Coordination: Deferred Gait and Sation: Deferred Lungs: Rhonchi, transmitted upper airway sounds Heart: regular rate and rhythm Abdomen: soft, non-tender. Bowel sounds normal. No masses, no organomegaly, suprapubic catheter in place Extremities: No edema Skin: Skin color, texture, turgor normal. No rashes or lesions Point of Care Testing: (Last 24 hours): POC Glucose (Download): (!) 169 (07/01/18 1302) Lab Review: 24-hour labs: Results for orders placed or performed during the hospital encounter of (from the past 24 hour(s)) IONIZED CALCIUM Collection Time: 07/01/18 12:50 PM Result Value Ref Range Ionized Calcium 1.14 1.0 - 1.3 MMOL/L LACTIC ACID (BG - RAPID LACTATE) Collection Time: 07/01/18 12:50 PM Result Value Ref Range Lactic Acid,BG 1.5 0.5 - 2.0 MMOL/L POC GLUCOSE Collection Time: 07/01/18 1:02 PM Result Value Ref Range Glucose, POC 169 (H) 70 - 100 MG/DL Radiology and Other Diagnostic Procedures Review: Pertinent radiologic and diagnostic procedures reviewed. Ciarra Valentino DO Date: 07/01/[phone] * Edvin Juarez, SHANE-REFUGE MANAGER - 07/01/2018 12:03 PM CDT Formatting of this note may be different from the original. Pre-Procedure History and Physical/Sedation Plan Procedure Date: 07/01/2018 Planned Procedure(s): Cerebral arteriogram Indication: Stroke intervention Chief Complaint: Acute stroke History of Present Illness: Valdez Anthony is a 57 y.o. male with a last known normal of 0730 this morning. It is reported that his NIH was "upper 20s to low 30s" but his current exam is unable to be accurately obtained 2/2 sedation given in the helicopter (the patient reportedly tried to open the door while in air). He was unable to be given tPA 2/2 a procedure done yesterday. MRI is positive for an M1 occlusion. Patient Active Problem List Diagnosis Date Noted Stroke ([facility]) 07/01/2018 HTN (hypertension) 01/15/2016 Urinary retention with incomplete bladder emptying 01/15/2016 Diabetes (HCC) 01/15/2016 Proliferative diabetic retinopathy(362.02) 01/14/2013 Neovascular glaucoma 01/14/2013 Central retinal artery occlusion 01/14/2013 Past Medical History: Diagnosis Date Arthritis DM (diabetes mellitus) DM eyes Glaucoma neovascular Hypertension Past Surgical History: Procedure Laterality Date HX RETINAL LASER Prescriptions Prior to Admission Medication Sig Dispense Refill Last Dose amLODIPine (NORVASC) 5 mg tablet Take 2.5 mg by mouth twice daily. buPROPion (WELLBUTRIN) 75 mg tablet Take 75 mg by mouth twice daily. ERGOCALCIFEROL (VITAMIN D2) (VITAMIN D PO) Take 2,000 Units by mouth daily. ferrous sulfate 325 mg (65 mg iron) tablet Take 325 mg by mouth twice daily. FLUoxetine(+) (PROZAC) 40 mg capsule Take 40 mg by mouth twice daily. Taking gabapentin (NEURONTIN) 600 mg tablet Take 600 mg by mouth three times daily. Taking glipiZIDE (GLUCOTROL) 10 mg tablet Take 10 mg by mouth. Take 1 and 1/2 tablets (15 mg) Daily. Taking HYDROcodone/acetaminophen (NORCO; VICODIN) 5-325 mg tablet Take 1 Tab by mouth every 6 hours as needed for Pain INSULIN ASPART (NOVOLOG SC) Inject 5 Units into area(s) as directed three times daily before meals. Taking insulin detemir(+) (LEVEMIR) 100 unit/mL soln Inject 5 Units into area(s) as directed at bedtime daily. 10 mL 12 lisinopril (PRINIVIL; ZESTRIL) 10 mg tablet Take 10 mg by mouth twice daily. Taking metoprolol XL (TOPROL XL) 25 mg tablet Take 25 mg by mouth daily. traZODone (DESYREL) 50 mg tablet Take 50 mg by mouth at bedtime daily. Taking No Known Allergies Social History: Social History Substance Use Topics Smoking status: Former Smoker Packs/day: 2.00 Years: 20.00 Types: Cigars Quit date: 10/20/2011 Smokeless tobacco: Never Used Alcohol use No Family History Problem Relation Age of Onset Coronary Artery Disease Mother Hypertension Mother Coronary Artery Disease Father Hypertension Father Blindness Neg Hx Cancer Neg Hx Cataract Neg Hx Glaucoma Neg Hx Macular Degen Neg Hx Neurologic Disorder Neg Hx Retinal Detachment Neg Hx Strabismus Neg Hx Stroke Neg Hx Thyroid Disease Neg Hx Autoimmune Disease Neg Hx Diabetes Paternal Aunt Diabetes Maternal Aunt Diabetes Maternal Uncle Review of Systems Review of systems not obtained due to patient factors. Previous Personal Anesthetic/Sedation History: Denies adverse events related to sedation/anesthesia. Previous Family Anesthetic/Sedation History: Denies adverse events related to sedation/anesthesia. Physical Exam: Vital Signs: Last Filed In 24 Hours Vital Signs: 24 Hour Range General appearance: Non-distressed appearance Neurologic: AAYUSH Lungs: AAYUSH Heart: AAYUSH Airway: AAYUSH Head and Neck: AAYUSH Mouth: AAYUSH NPO status: Waived due to emergency Status: N/A Anesthesia Classification: ASA IV (A patient with an incapacitating systemic disease that is a constant threat to life) Sedation/Medication Plan: Conscious sedation Discussion/Reviews: Physician has discussed risks and alternatives of this type of sedation and above planned procedures with other Lab/Radiology/Other Diagnostic Tests: Labs: Pertinent labs reviewed Edvin Juarez APRN-ROSEANN Pager [phone] in this encounter Procedure Notes * Amy Velasquez MD - 07/01/2018 8:07 PM CDT Procedure(s): EEG AWAKE & ASLEEP EEG REPORT Valdez Fausters 1960 [id number] DATE OF STUDY 07/01/18 PATIENT HISTORY: This is a 57 y.o. male with a history of stroke and abnormal mental status. MEDICATIONS: Current Facility-Administered Medications: aspirin rectal suppository 300 mg, 300 mg, Rectal, QDAY, Ciarra Valentino DO, Stopped at 07/01/18 1511 atorvastatin (LIPITOR) tablet 40 mg, 40 mg, Oral, QHS, Ciarra Valentino DO calcium gluconate 1 g in sodium chloride 0.9% (NS) 110 mL IVPB (MB+), 1 g, Intravenous, PRN (Form Drafter from Rx) AND Ionized Calcium, , , PRN AND Notify Physician, , , Ongoing, Ciarra Valentino DO cefTRIAXone (ROCEPHIN) IVP 1 g, 1 g, Intravenous, Q24H*, Ciarra Valentino DO, 1 g at 07/01/18 1714 [START ON 07/02/2018] ferrous sulfate (FEOSOL, FEROSUL) tablet 325 mg, 325 mg, Oral, TID w/ meals, Ciarra Valentino DO hydrALAZINE (APRESOLINE) injection 10 mg, 10 mg, Intravenous, Q6H PRN, Ciarra Valentino DO, 10 mg at 07/01/18 1511 insulin regular (NOVOLIN R) 100 Units in sodium chloride 0.9% (NS) 100 mL IV drip (std conc), 1-32 Units/hr, Intravenous, TITRATE, Ciarra Valentino DO, Last Rate: 2 mL/hr at 07/01/18 1900, 2 Units/hr at 07/01/18 1900 magnesium sulfate 1 g/D5W 100 mL IVPB, 1 g, Intravenous, PRN AND Magnesium, , , PRN AND Notify Physician, , , Ongoing, Ciarra Valentino DO niCARdipine (cardENE) 20 mg/NS 200 mL infusion (std conc)(premade), 5-15 mg/hr, Intravenous, TITRATE, Diego Gutierrez MD, Stopped at 07/01/18 1517 pantoprazole (PROTONIX) injection 40 mg, 40 mg, Intravenous, QDAY, Veronica Doyle MD, 40 mg at 07/01/18 1714 potassium chloride SR (K-DUR) tablet 40-60 mEq, 40-60 mEq, Oral, PRN OR* * potassium chloride oral solution 40-60 mEq, 40-60 mEq, Per NG tube, PRN, Ciarra Valentino DO sodium chloride 0.9 % infusion, , Intravenous, Continuous, Ciarra Valentino DO, Last Rate: 75 mL/hr at 07/01/18 1330 sodium phosphate 8 mmol in dextrose 5% (D5W) 250 mL IVPB, 8 mmol, Intravenous, PRN (Form Drafter from Rx) AND Phosphorus, , , PRN AND Notify Physician, , , Ongoing, Ciarra Valentino, TECHNICAL: This is EEG was intended to be awake, drowsy and asleep. The EEG was performed on a 32 channel digital recording device. The 10-20 international system of electrode placement was used. Hyperventilation was not performed. Photic stimulation was not performed. REPORT: BACKGROUND: Predominant EEG activity is low voltage 1-3 Hz delta activity. This activity does not change with stimulations. There are rare periods of poorly formed 4-6 theta seen. SLEEP: No sleep was seen. ABNORMALITIES: Epileptiform activity was not seen. Slowing was seen as described above. IMPRESSION This is an abnormal EEG due to the presence of severe diffuse slow activity. No seizures or epileptiform activity is seen. These findings are consistent with an encephalopathy. Amy Velasquez MD in this encounter Consult Notes * Gerard Salazar MD - 07/06/2018 4:44 PM CDT Associated Order(s): CONSULT GASTROENTEROLOGY PHYSICIAN Formatting of this note may be different from the original. General Consult Note Admission Date: 07/01/2018 LOS: 5 days Reason for Consult: OSH prior to transfer here. EGD showed s/p polypectomy. Transferred to [facility] for stroke. Hgb dropped from 10.1 -> 9.3. would like EGD for r/o GI source for bleed. Holding AC currently, plan to restart in 2 weeks form stroke outpt Consult type: Opinion Assessment/Plan 57 y.o. male history of having diabetes mellitus, hypertension, new diagnosis of having atrial fibrillation and also a right MCA stroke. ongoing anemia issues long standing with recent EGD with possible polyp with s/p clip placement. 1. Concern for upper GI bleeding with possible melena. 2. Acute blood loss anemia long standing. 3. Anticoagulation status. 4. MCA stroke. 5. HTN 6. Atrial fibrillation. Recommendations: - Would recommend to check an iron panel / ferritin. - Recommend EGD/colonoscopy for further workup of anemia and also risk stratification especially if the patient is going to be on anticoagulation. - This can be done tentative tomorrow if the patient can prep otherwise plan on Friday. - Recommend golytely 1 gallon today and 1/2 gallon in the AM if not clear. - NPO midnight. Gerard Salazar MD GI staff History of Present Illness: Valdez Anthony is a 57 y.o. male history of having diabetes mellitus, hypertension, new diagnosis of having atrial fibrillation and also a right MCA stroke. Currently the patient is on aspirin, Eliquis. We were consulted for having darker colored stools and also anemia. The patient is not cooperating enough to give a complete history at this point of time and just wanted to sleep. Most of the history is obtained from the patient's . According to her the patient had an upper endoscopy done for evaluation for possible polyp and there was a possible clip in place but currently the results of this endoscopy are not available to me. She also does mention that at the [facility] the patient did have an upper endoscopy and a colonoscopy approximately 1 year ago. She does not remember the results for these. At this point of time he does deny having any abdominal pains, dizziness, lightheadedness. After the stroke he does have issues with mild dysarthria and some facial droop and has some left upper and left lower extremity residual weakness. The right side seems to be doing well. No concern for nausea or vomiting per the patient' s . He was recently started off on a diet and has been able to tolerate this as well. He does take iron that was prescribed to him approximately an year ago. Again noted darker colored stools. No recent change in the color. Review of Systems: Extensive 10 point ROS was done pertinent positive mentioned above and in HPI others are negative. Active Ambulatory Problems Diagnosis Date Noted Proliferative diabetic retinopathy(362.02) 01/14/2013 Neovascular glaucoma 01/14/2013 Central retinal artery occlusion 01/14/2013 HTN (hypertension) 01/15/2016 Urinary retention with incomplete bladder emptying 01/15/2016 Diabetes (HCC) 01/15/2016 Resolved Ambulatory Problems Diagnosis Date Noted Sepsis (HCC) 01/15/2016 Severe sepsis (HCC) 01/15/2016 LATISHA (acute kidney injury) ([facility]) 01/15/2016 High anion gap metabolic acidosis 01/15/2016 Past Medical History: Diagnosis Date Arthritis DM (diabetes mellitus) ([facility]) DM eyes Glaucoma Hypertension Social History Social History Marital status: Spouse name: N/A Number of children: N/A Years of education: N/A Social History Main Topics Smoking status: Former Smoker Packs/day: 2.00 Years: 20.00 Types: Cigars Quit date: 10/20/2011 Smokeless tobacco: Never Used Alcohol use No Drug use: No Sexual activity: Not on file Other Topics Concern Not on file Social History Narrative No narrative on file Family History Problem Relation Age of Onset Coronary Artery Disease Mother Hypertension Mother Coronary Artery Disease Father Hypertension Father Diabetes Paternal Aunt Diabetes Maternal Aunt Diabetes Maternal Uncle Blindness Neg Hx Cancer Neg Hx Cataract Neg Hx Glaucoma Neg Hx Macular Degen Neg Hx Neurologic Disorder Neg Hx Retinal Detachment Neg Hx Strabismus Neg Hx Stroke Neg Hx Thyroid Disease Neg Hx Autoimmune Disease Neg Hx No Known Allergies Patient Active Problem List Diagnosis Date Noted Anemia 07/03/2018 Agitation 07/03/2018 Stroke ([facility]) 07/01/2018 HTN (hypertension) 01/15/2016 Urinary retention with incomplete bladder emptying 01/15/2016 Diabetes ([facility]) 01/15/2016 Proliferative diabetic retinopathy(362.02) 01/14/2013 Neovascular glaucoma 01/14/2013 Central retinal artery occlusion 01/14/2013 Allergies: Patient has no known allergies. Scheduled Meds: [START ON 07/07/2018] aspirin chewable tablet 81 mg 81 mg Oral QDAY atorvastatin (LIPITOR) tablet 40 mg 40 mg Oral QHS diltiazem(#) (cardIZEM) solution 30 mg 30 mg Oral Q6H heparin (porcine) PF syringe 5,000 Units 5,000 Units Subcutaneous Q8H insulin aspart U-100 (NOVOLOG FLEXPEN) injection PEN 0-7 Units 0-7 Units Subcutaneous ACHS insulin aspart U-100 (NOVOLOG FLEXPEN) injection PEN 6 Units 6 Units Subcutaneous TID after meals insulin glargine (LANTUS SOLOSTAR, BASAGLAR) injection PEN 30 Units 30 Units Subcutaneous QDAY [START ON 07/07/2018] lisinopril (PRINIVIL; ZESTRIL) tablet 40 mg 40 mg Oral QDAY nortriptyline (PAMELOR) capsule 10 mg 10 mg Oral QHS polyethylene glycol 3350 (MIRALAX) packet 17 g 1 packet Oral QDAY QUEtiapine (SEROQUEL) tablet 25 mg 25 mg Oral BID senna/docusate (SENOKOT-S) solution 10 mL 10 mL Oral BID Continuous Infusions: PRN and Respiratory Meds:acetaminophen Q6H PRN, bisacodyl QDAY PRN, hydrALAZINE Q6H PRN, labetalol (NORMODYNE; TRANDATE) injection Q6H PRN Vital Signs: Last Filed in 24 hours Vital Signs: 24 hour Range BP: 135/47 (07/06 1316) Temp: 36.7 C (98.1 F) (07/06 1316) Pulse: 90 (07/06 1316) Respirations: 14 PER MINUTE (07/06 1316) SpO2: 98 % (07/06 1316) O2 Delivery: None (Room Air) (07/06 1316) BP: (130-153)/(47-61) Temp: [36.6 C (97.8 F)-37.3 C (99.2 F)] Pulse: [85-108] Respirations: [14 PER MINUTE-18 PER MINUTE] SpO2: [96 %-98 %] O2 Delivery: None (Room Air) Physical Exam: General: lying in bed, in no acute distress. Alert and awake. ENT: Clean moist mouth. No ulcers noted. Neck: Supple. No lymphadenopathy noted. No masses noted. No thyromegaly present. Cardiac: S1, S2 heard. Lungs: decreased air entry to the bases Abdomen: Soft, nontender. No masses found. No hepatosplenomegaly present. Extremities: Peripheral pulses intact and warm. No ulcers noted. No edema. Neurologic: Alert but patient not cooperative enough to follow commands and just wanted to be left alone and wanted to sleep. Skin: No rashes. No bruising noted. Lab/Radiology/Other Diagnostic Tests: 24-hour labs: Results for orders placed or performed during the hospital encounter of (from the past 24 hour(s)) URINALYSIS DIPSTICK REFLEX TO CULTURE Collection Time: 07/05/18 6:45 PM Result Value Ref Range Color,UA YELLOW Turbidity,UA 2+ (A) CLEAR-CLEAR Specific [place]-Urine 1.017 1.003 - 1.035 pH,UA 5.0 5.0 - 8.0 Protein,UA 2+ (A) NEG-NEG Glucose,UA 1+ (A) NEG-NEG Ketones,UA NEG NEG-NEG Bilirubin,UA NEG NEG-NEG Blood,UA NEG NEG-NEG Urobilinogen,UA NORMAL NORM-NORMAL Nitrite,UA NEG NEG-NEG Leukocytes,UA 1+ (A) NEG-NEG Urine Ascorbic Acid, UA NEG NEG-NEG URINALYSIS MICROSCOPIC REFLEX TO CULTURE Collection Time: 07/05/18 6:45 PM Result Value Ref Range WBCs,UA 2-10 0 - 2 /HPF RBCs,UA 10-20 0 - 3 /HPF Comment,UA Urine submitted for reflex culture if criteria are met:WBC>10, positive nitrite and/or >=1+ leukocyte esterase. If quantity is not sufficient, an addendum will follow. MucousUA 1+ Squamous Epithelial Cells 0-2 0 - 5 CULTURE-URINE W/SENSITIVITY Collection Time: 07/05/18 6:45 PM Result Value Ref Range Battery Name URINE CULTURE Specimen Description URINE Special Requests NONE Culture NO GROWTH Report Status FINAL 07/06/2018 POC GLUCOSE Collection Time: 07/05/18 8:15 PM Result Value Ref Range Glucose, POC 81 70 - 100 MG/DL POC GLUCOSE Collection Time: 07/05/18 9:37 PM Result Value Ref Range Glucose, POC 77 70 - 100 MG/DL HEMOGLOBIN Collection Time: 07/05/18 9:40 PM Result Value Ref Range Hemoglobin 10.1 (L) 13.5 - 16.5 GM/DL POC GLUCOSE Collection Time: 07/05/18 10:09 PM Result Value Ref Range Glucose, POC 89 70 - 100 MG/DL POC GLUCOSE Collection Time: 07/06/18 2:35 AM Result Value Ref Range Glucose, POC 132 (H) 70 - 100 MG/DL BASIC METABOLIC PANEL Collection Time: 07/06/18 4:27 AM Result Value Ref Range Sodium 138 137 - 147 MMOL/L Potassium 3.8 3.5 - 5.1 MMOL/L Chloride 103 98 - 110 MMOL/L CO2 26 21 - 30 MMOL/L Anion Gap 9 3 - 12 Glucose 146 (H) 70 - 100 MG/DL Blood Urea Nitrogen 9 7 - 25 MG/DL Creatinine 1.18 0.4 - 1.24 MG/DL Calcium 8.5 8.5 - 10.6 MG/DL eGFR Non >60 >60 mL/min eGFR >60 >60 mL/min CBC Collection Time: 07/06/18 4:27 AM Result Value Ref Range White Blood Cells 11.3 (H) 4.5 - 11.0 K/UL RBC 3.05 (L) 4.4 - 5.5 M/UL Hemoglobin 9.3 (L) 13.5 - 16.5 GM/DL Hematocrit 27.1 (L) 40 - 50 % MCV 88.8 80 - 100 FL MCH 30.5 26 - 34 PG MCHC 34.4 32.0 - 36.0 G/DL RDW 14.2 11 - 15 % Platelet Count 487 (H) 150 - 400 K/UL MPV 8.6 7 - 11 FL HEMOGLOBIN Collection Time: 07/06/18 4:27 AM Result Value Ref Range Hemoglobin 9.1 (L) 13.5 - 16.5 GM/DL POC GLUCOSE Collection Time: 07/06/18 7:29 AM Result Value Ref Range Glucose, POC 130 (H) 70 - 100 MG/DL POC GLUCOSE Collection Time: 07/06/18 11:49 AM Result Value Ref Range Glucose, POC 153 (H) 70 - 100 MG/DL HEMOGLOBIN Collection Time: 07/06/18 1:31 PM Result Value Ref Range Hemoglobin 8.9 (L) 13.5 - 16.5 GM/DL POC GLUCOSE Collection Time: 07/06/18 2:36 PM Result Value Ref Range Glucose, POC 196 (H) 70 - 100 MG/DL Pertinent radiology reviewed. Gerard Salazar MD * Brenda Larios MD - 07/03/2018 2:10 PM CDT Associated Order(s): CONSULT ENDOCRINOLOGY PHYSICIAN Formatting of this note may be different from the original. 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 A1c 17 - Our goal is to avoid hypoglycemia and to prevent hyperglycemia during hospitalization. - Goal BS 100-140 fasting and 140-180 during the day. - continue insulin infusion - will add Novolog 10 units with post meal if eating -Will discuss with patient regarding discharge regiment and discuss with follow up plan - Patient will follow up with local endocrinology in [facility] Patient was seen and discussed with Dr. Chaudhry __ History of Present Illness: Valdez Anthony is a 57 y.o. male With a history of diabetes type 2, hypertension who was transferred here for stroke. History is obtained mainly from chart review and his due to patient's condition. Endocrinology is consulted for diabetes management. His states that he was diagnosed with diabetes in 1994. He follows with assistant city attorney at [facility]. At home, he was taking Levemir 40 units once a day, NovoLog 20-25 units with meal, metformin 1000 mg twice a day. His states that assistant city attorney prescribe NovoLog 40 units 3 times a day with meal but she decided to give him 20-25 units concerning for low sugars. She states that she checked his blood sugars 3-4 times a day. His fasting blood sugars were running around 250-400. And pre-meal before lunch and dinner have been running around 200-300. She states that sometimes at night, he might have blood sugars below 102-3 times a week. he has complication from diabetes including diabetic retinopathy, right eye blindness, chronic kidney disease, diabetic neuropathy. She does not have heart attack or amputation His A1c on this admission was 17 but his insisted that patient has been on medication regularly. Past Medical History: Diagnosis Date Arthritis DM (diabetes mellitus) (HCC) DM eyes Glaucoma neovascular Hypertension Past Surgical History: Procedure Laterality Date HX RETINAL LASER Family History Problem Relation Age of Onset Coronary Artery Disease Mother Hypertension Mother Coronary Artery Disease Father Hypertension Father Diabetes Paternal Aunt Diabetes Maternal Aunt Diabetes Maternal Uncle Blindness Neg Hx Cancer Neg Hx Cataract Neg Hx Glaucoma Neg Hx Macular Degen Neg Hx Neurologic Disorder Neg Hx Retinal Detachment Neg Hx Strabismus Neg Hx Stroke Neg Hx Thyroid Disease Neg Hx Autoimmune Disease Neg Hx Social History Social History Marital status: Spouse name: N/A Number of children: N/A Years of education: N/A Social History Main Topics Smoking status: Former Smoker Packs/day: 2.00 Years: 20.00 Types: Cigars Quit date: 10/20/2011 Smokeless tobacco: Never Used Alcohol use No Drug use: No Sexual activity: Not on file Other Topics Concern Not on file Social History Narrative No narrative on file Immunizations (includes history and patient reported): There is no immunization history on file for this patient. Allergies: Patient has no known allergies. Medications: Prescriptions Prior to Admission Medication Sig amLODIPine (NORVASC) 5 mg tablet Take 2.5 mg by mouth twice daily. buPROPion (WELLBUTRIN) 75 mg tablet Take 75 mg by mouth twice daily. ERGOCALCIFEROL (VITAMIN D2) (VITAMIN D PO) Take 2,000 Units by mouth daily. ferrous sulfate 325 mg (65 mg iron) tablet Take 325 mg by mouth twice daily. FLUoxetine(+) (PROZAC) 40 mg capsule Take 40 mg by mouth twice daily. gabapentin (NEURONTIN) 600 mg tablet Take 600 mg by mouth three times daily. glipiZIDE (GLUCOTROL) 10 mg tablet Take 10 mg by mouth. Take 1 and 1/2 tablets (15 mg) Daily. HYDROcodone/acetaminophen (NORCO; VICODIN) 5-325 mg tablet Take 1 Tab by mouth every 6 hours as needed for Pain INSULIN ASPART (NOVOLOG SC) Inject 5 Units into area(s) as directed three times daily before meals. insulin detemir(+) (LEVEMIR) 100 unit/mL soln Inject 5 Units into area(s) as directed at bedtime daily. lisinopril (PRINIVIL; ZESTRIL) 10 mg tablet Take 10 mg by mouth twice daily. metoprolol XL (TOPROL XL) 25 mg tablet Take 25 mg by mouth daily. traZODone (DESYREL) 50 mg tablet Take 50 mg by mouth at bedtime daily. Review of Systems: Unable to obtain Physical Exam: Vital Signs: Last Filed In 24 Hours Vital Signs: 24 Hour Range BP: 122/53 (07/03 1404) Temp: 36.6 C (97.9 F) (07/03 1404) Pulse: 104 (07/03 1404) Respirations: 20 PER MINUTE (07/03 1404) SpO2: 99 % (07/03 1404) O2 Delivery: None (Room Air) (07/03 1404) SpO2 Pulse: 86 (07/02 2000) BP: (120-178)/(46-94) Temp: [36.4 C (97.6 F)-37.2 C (98.9 F)] Pulse: [70-106] Respirations: [18 PER MINUTE-22 PER MINUTE] SpO2: [95 %-100 %] O2 Delivery: None (Room Air) General: Confused , non communicative Head: Normocephalic ENT: Moist mucous membranes , R eye blindness Neck: thyroid palpable Lungs: Clear to auscultation bilaterally Heart: Regular rate and rhythm Abdomen: Soft, obese abdomen , suprapubic catheter in place Extremities: Extremities normal Skin: No rash or lesions noted Pulses: 2+ Lab: Recent Labs 07/01/18 1250 07/02/1841407/03/18410 NA 138 140 140 K 4.3 4.2 3.5 CL 113* 113* 110 CO2 19* 20* 21 GAP 6 7 9 BUN 13 12 11 CR 0.95 0.88 1.11 GLU 166* 127* 135* CA 7.9* 8.5 8.8 ALBUMIN 2.8* -- -- MG 2.0 1.9 -- PO4 2.6 2.6 -- HGBA1C 17.4* -- -- Recent Labs 07/01/18 1250 07/02/185 07/03/18410 WBC 9.5 10.3 13.4* HGB 8.7* 8.8* 7.6* HCT 26.3* 28.2* 22.7* PLTCT 297 401* 395 AST 10 -- -- ALT 7 -- -- ALKPHOS 117* -- -- Estimated Creatinine Clearance: 72.6 mL/min (based on SCr of 1.11 mg/dL). Vitals: 07/01/18 1445 Weight: 71.6 kg (157 lb 13.6 oz) Glucose, POC Date/Time Value Ref Range Status 07/03/2018 1324 254 (H) 70 - 100 MG/DL Final 07/03/2018 1220 307 (H) 70 - 100 MG/DL Final 07/03/2018 1045 268 (H) 70 - 100 MG/DL Final 07/03/2018 0922 233 (H) 70 - 100 MG/DL Final 07/03/2018 0804 156 (H) 70 - 100 MG/DL Final 07/03/2018 0503 109 (H) 70 - 100 MG/DL Final 07/03/2018 0357 132 (H) 70 - 100 MG/DL Final 07/03/2018 0306 145 (H) 70 - 100 MG/DL Final Radiology and other Diagnostics Review: Pertinent radiology reviewed. Brenda Larios Endocrine Fellow Pager # [phone] 07/03/2018 Associated attestation - John Chaudhry MD - 07/04/2018 5:34 AM CDT Formatting of this note may be different from the original. ATTESTATION I personally performed the jacobs portions of the E/M visit, discussed case with resident and concur with resident documentation of history, physical exam, assessment, and treatment plan unless otherwise noted. Staff name: John Chaudhry MD Date: 07/04/2018 At this time his glucose control is too erratic to make changes. We will wait until Friday to make the changes in therapy. * Tata Daniels RD - 07/03/2018 1:11 PM CDT Associated Order(s): CONSULT DIETITIAN CLINICAL NUTRITION Clinical Nutrition Assessment Summary NAME:Valdez Anthony :1960 AGE: 57 y.o. ADMISSION DATE: 07/01/2018 DAYS ADMITTED: LOS: 2 days Nutrition Assessment of Patient: BMI Categories Adult: Over Weight: 25-29.9 Malnutrition Assessment: (unable to determine at this time without subjective info) Current Oral Intake: Inadequate (new start of nectar thick full liquids today) Estimated Calorie Needs: 1566-4815 (25-28 kcal/kg desired wt) Estimated Protein Needs: 85-100 (1.2-1.4 g/kg desired wt) Oral Diet Order: Full Liquid, [place] Thick Liquids Current EN Order: Isosource 1.5 @ 20 ml/hr with goal of 45 ml/hr and 100 ml water bolus q4hr. 1620 kcal, 73 g protein and 1420 ml free water at goal.( stopped today; pt pulled feeding tube) Comments: 57 y.o. male with new onset Atrial Fibrillation with RVR, HTN, HLD, T2DM, Diabetic Retinopathy, OD Blindness, Neovascular Glaucoma, Prostate Cancer s/p prostatectomy, Urinary Retention s/p suprapubic catheter that was admitted at [facility] for urosepsis, DKA, A fib with RVR requiring cardizem ggt that was transferred for concerns for stroke. Patient found to have a R M1 occlusion. He underwent endovascular thrombectomy which was successful, TICI 3. MRI with bilateral temporal lobe infarcts, R insular cortex, R insular cortex, infarcts and small areas of hemorrhagic conversion. Consult received for EN recs. Pt with Corpak placed 07/02 with tip at gastric outlet per KUB 07/02. EN of Isosource 1.5 started 07/02 @ 20 ml/hr and tolerated up to ordered goal of 45 ml/hr by night of 07/02. Pt pulled Corpak today despite mits. ELECTRIC RELAY TESTER evaluated pt via video-swallow with moderate oropharyngeal dysphagia and baseline cognitive deficits. ELECTRIC RELAY TESTER recommending nectar thick full liquids; diet ordered. RN says no plans for replacement of feeding tube or restart of EN feeds. FSBS 78-307 x 24 hrs with insulin drip orders. Unable to obtain subjective data from pt; no family present. Appears adequate wt/ht to overweight and adequately nourished on admit. Recommendation: Encourage good meal intakes at least 3 times per day with adequate protein source each meal. Offer No Sugar Added "Light Start [place] Breakfast Essentials" shakes made with nectar thick milk at breakfast and PRN. If po intake still <60% of needs in 48hrs, consider replacement of feeding tube and restart of Isosource 1.5 EN feeds with goal of 50 ml/hr with one Prosource liquid protein pack per day to provide 1860 kcal, 97 g protein and 912 ml free water from EN at goal. Additional fluids per primary team. Intervention / Plan: assessed nutritional status; ordered [place] Breakfast shakes with nectar thick milk PRN monitor po intake, adequacy, tolerance and advancement per ELECTRIC RELAY TESTER findings and recs monitor wt trends, labs, meds and GI status Nutrition Diagnosis: Altered GI function Etiology: swallowing and cognitive deficits Signs & Symptoms: ELECTRIC RELAY TESTER findings and recs for nectar thick full liquids with supervision Goals: Patient to consume >75% of meals/supplements Time Frame: Within 72 Hours Tata Daniels, MS,RD, LD, [facility] *[id number] * Damian Hensley MD - 07/02/2018 1:16 PM CDT Associated Order(s): CONSULT REHABILITATION MEDICINE PHYSICIAN Formatting of this note may be different from the original. Rehabilitation Medicine Attending Physician Attestation: Agree with resident. Valdez Anthony is a pleasant 57 y.o. male with PMH of DM Type 2, HTN, HL, right eye blindness, glaucoma, prostate cancer s/p resection, who was admitted upon transfer from [facility] on 07/01/2018 after originally presenting there with sepsis determined to be secondary to UTI complicated by DKA and Atrial Fibrillation and then apparent AMS. The patient was transferred to [facility] where CTA showed right M1 occlusion. He underwent endovascular thrombectomy with TICI 2C by Dr. Perry. MRI Head revealed bilateral temporal lobe infarcts with right insular cortex involvement and small areas of hemorrhagic conversion. The patient was quite lethargic on our visit but seems to move all 4 extremities spontaneously. He has experienced an acute right MCA stroke syndrome, with resulting dysarthria, dysphagia, and generalized weakness , as well as significant cognitive and functional deficits as noted. The patient seems to have medical complexity and goals with PT, OT, and ELECTRIC RELAY TESTER for acute inpatient rehabilitation; however, he is quite low level cognitively/ functionally at this time with inability to consistently follow 1 step commands. Recommend continued therapies, while the primary team completes stroke work-up, manages the patient, and addresses dysphagia and adequate nutritional access. Discussed with patient's spouse. Primary barriers would include: needs to clarify ongoing goals for therapies, need for clarification of appropriate disposition/realistic discharge plan (given 5 stairs into inaccessible mobile home), and clinical stability with final plan of nutritional source and ongoing clinical management. At current status, it may be reasonable to consider subacute rehabilitation, but we will continue to follow for medical stability/appropriateness for discharge. Please have primary SWCM discuss with [facility] IR[facility] patient services coordinator according to the patient 's (and/or their family's) preference for placement. Thank you for this consultation. Please call with questions/concerns. I personally performed jacobs portions of the history and exam. I discussed the case with the resident and concur with the resident's documentation of history, physical assessment and treatment plan unless otherwise noted. Damian Hensley MD Physical Medicine & Rehabilitation Consult Note Date of Service: 07/02/2018 Valdez Anthony is a 57 y.o. male. : 1960 Primary Insurance: MEDICARE Secondary Insurance: Tertiary Insurance: Financial Class: Medicare Date of Admission: 07/01/2018 Referring Physician: Diego Gutierrez MD Reason for Consult: evaluate for Post-Acute Rehab/Placement Precautions: Fall, . Weight bearing Precautions: None Active Problems Principal Problem: Stroke (HCC) Active Problems: HTN (hypertension) Diabetes (HCC) Hemiparesis Dysphagia Impaired mobility and ADLs Assessment & Plan Valdez Anthony is a 57 y.o. male admitted to [facility] on 07/01/2018 with the following issues: R MCA stroke Impairments: aphasia, cognitive impairments, communication deficits, dysarthria , dysphagia, hemiplegia, poor activity tolerance and weakness Activity Limitations: bathing, dressing - upper, dressing - lower, toileting, bladder control, bowel control, transfers, ambulation, wheelchair, stairs, comprehension, expression, social interaction, problem solving and memory Participation Restrictions: unable to return home safely Post-acute care rehabilitation needs: -Too early to determine best placement option once pt is medically stable for discharge. It appears that pt will require constant supervision and physical assistance if he were to return home. Pt would have to demonstrate ability to follow 2 step commands before he would be appropriate for IPR. Will continue to follow as patient becomes medically stable and progresses with therapy. Other recommendations (bowel, bladder, skin, pain, etc): Bowel: Recommend bowel regimen with Senokot 2 tabs QHS and Colace 100-200mg daily while on opiate pain medications +/- Miralax daily PRN Skin/MSK: Given relative immobility and/or risk for contractures and skin breakdown, continue passive range of motion ~twice daily (partially performed by therapists), progressing as able to active range of motion, and functional activities. Recommend HOB > 30 degrees to reduce shearing, turning Q2 hours while supine in bed, pressure relief [id number] in seated position, PRAFOs for pressure relief and to prevent contractures Jaycob Ramos, DO Rehab Consult Pager: [phone] History of Present Illness Hospital Course: Valdez Anthony is a 57 y.o. male with new onset Atrial Fibrillation with RVR, HTN , HLD, T2DM, Diabetic Retinopathy, OD Blindness, Neovascular Glaucoma, Prostate Cancer s/p prostatectomy, Urinary Retention s/p suprapubic catheter that was admitted at [facility] for urosepsis, DKA, A fib with RVR requiring cardizem ggt that was transferred for concerns for stroke. LNK unknown. Not a candidate for tPA. NIH-SS upon arrival 34. CTA Head/Neck with R M1 occlusion. CTP with large perfusion mismatch in R MCA. Taken to IR s/p mechanical thrombectomy with TICI3. Pt is currently NPO with plans for video swallow tomorrow. Pt transferred to the floor 07/02. Pt still on insulin ggt and on abx for urosepsis. Rehab consulted for post acute rehab/placement. 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 Past Medical History Past Medical History: Diagnosis Date Arthritis DM (diabetes mellitus) (HCC) DM eyes Glaucoma neovascular Hypertension Past Surgical History Past Surgical History: Procedure Laterality Date HX RETINAL LASER Family\\Social History Social History Social History Marital status: Spouse name: N/A Number of children: N/A Years of education: N/A Social History Main Topics Smoking status: Former Smoker Packs/day: 2.00 Years: 20.00 Types: Cigars Quit date: 10/20/2011 Smokeless tobacco: Never Used Alcohol use No Drug use: No Sexual activity: Not on file Other Topics Concern Not on file Social History Narrative No narrative on file Family History Problem Relation Age of Onset Coronary Artery Disease Mother Hypertension Mother Coronary Artery Disease Father Hypertension Father Diabetes Paternal Aunt Diabetes Maternal Aunt Diabetes Maternal Uncle Blindness Neg Hx Cancer Neg Hx Cataract Neg Hx Glaucoma Neg Hx Macular Degen Neg Hx Neurologic Disorder Neg Hx Retinal Detachment Neg Hx Strabismus Neg Hx Stroke Neg Hx Thyroid Disease Neg Hx Autoimmune Disease Neg Hx Medications: aspirin chewable tablet 81 mg 81 mg Per NG tube QDAY atorvastatin (LIPITOR) tablet 40 mg 40 mg Per NG tube QHS cefTRIAXone (ROCEPHIN) IVP 1 g 1 g Intravenous Q24H* diltiazem(#) (cardIZEM) solution 30 mg 30 mg Per NG tube Q6H docusate (COLACE) capsule 100 mg 100 mg Per NG tube BID heparin (porcine) PF syringe 5,000 Units 5,000 Units Subcutaneous Q8H lisinopril (PRINIVIL; ZESTRIL) tablet 20 mg 20 mg Per NG tube QDAY senna/docusate (SENOKOT-S) solution 10 mL 10 mL Per NG tube BID PRN Medications: bisacodyl QDAY PRN, hydrALAZINE Q6H PRN, labetalol (NORMODYNE; TRANDATE) injection Q6H PRN, pancrelipase 20,000 Units/ sodium bicarbonate 650 mg(#) PRN ( Form Drafter from Rx) Allergies: No Known Allergies Prior Level of Function Prior Function Level Of [place]: Independent with ADLs and functional transfers Lives With: Spouse Other Function Comments: Pt is blind in R eye at baseline. Does not drive. Falls about once a month, per due to losing his balance Home Environment: No Data Recorded No Data Recorded No Data Recorded No Data Recorded No Data Recorded No Data Recorded No Data Recorded Current Level of Function Physical Therapy: BED MOBILITY/TRANSFERS: Bed Mobility/Transfers Bed Mobility: Supine to Sit: Maximum Assist;x2 People;Head of Bed Elevated; Assist with B LE;Assist with Trunk Bed Mobility: Sit to Supine: Maximum Assist;x2 People;Assist with Trunk;Assist with B LE;Bed Flat Transfer Type: Sit to Stand Transfer: Assistance Level: To/From;Bed;Moderate Assist;x2 People Transfer: Assistive Device: Hand Hold Assist Transfers: Type Of Assistance: Verbal Cues;For Balance;For Strength Deficit;For Safety Considerations End Of Activity Status: In Bed;Nursing Notified;Instructed Patient to Request Assist with Mobility;Instructed Patient to Use Call Light (bed alarm on) Comments: Patient constantly asking to return to bed or for water. He demonstrates difficulty focusing on task or ability sustain participation in task at this time. GAIT: Gait Comments: Not safe to ambulate due to inability to maintain standing despite 2 person assist. 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 Pt not following commands well enough to formally test L eye. ADL's Eating Assist: Total Assist Eating Deficits: NPO Functional Transfer Assist: Total Assist Comment: Pt agitated, moaning throughout session. Followed some commands for bridging in bed, kicking LE's. Pt maximum assist X2 for bed mobility and attempt at standing. Pt focusing on wanting to "lay my head down" and "I'm thirsty". Otherwise moaning and not verbalizing. Pt moving all four limbs, scooting self down in the bed and leaning to L spontaneously. Mitt and soft wrist restraints, Trevor strap replaced end of session and bed alarm set. Activity Tolerance Sitting Balance: / Supports Self w/25-50% Effort UsingUE, Requires Therapist Assistance Cognition Overall Cognitive Status: Impaired Expression: Mumbling/Slurred;Increased Time for Expression Social Interaction: Encouragement/Coaxing to Participate Problem Solving: Cueing to Sequence Task;Unable to Utilize Call Light;Direction Following Assist;Decreased Judgment/Safety Attention: Distractable Cognition Comment: lethargic, moaning. Able to state first and middle name, not able to state last name but nodded when OT said it. Speech Therapy: EVALUATION SUMMARY Summary: Clinical swallow evaluation completed this date. Moderate-severe oropharyngeal dysphagia present at this time. Factors impacting dysphagia include: mental status and weakness s/p recent right sided CVA as well as likely baseline dysphagia present from unknown cause reported by pt's spouse. Overt coughing noted w/ thin and nectar thick liquids. Multiple swallows noted across consistencies presented indicating pharyngeal residue and/or laryngeal penetration. Pt's spouse reports that pt has baseline dysphagia, however unable to state cause. Spouse states that pt frequently coughs during meals, with liquids and solids. Spouse also reports that pt completed videoswallow evaluation at [facility], which she states yielded recommendations for honey thick liquids. This recommendation has not been followed by the pt since the videoswallow evaluation. Pt's spouse does not report any recent pneumonia. Given baseline dysphagia and current lethargy and weakness, anticipate pt is at high risk for aspiration at this time. Moderate dysarthria also present this date characterized primarily by imprecise articulatory precision. Pt demonstrated limited verbalizations this date, however his intelligibility in a quiet room to an unfamiliar listener was approximately 70-90%. Pt's spouse reports that pt has "mumbled speech" typically and that he is often difficult to understand. Please see further details below. RECOMMENDATIONS: Remain NPO at this time. Anticipate need for temporary alternative source of nutrition/medication/hydration. Initiate ice chip protocol (5-7 per hour). Frequent oral care to minimize risk for aspiration of bacteria in secretions. Complete videoswallow in near future to further assess swallow safety. Ongoing dysphagia assessment and treatment. Plan to complete cognitive- communication evaluation in near future. Review of Systems A 14 point review of systems was negative except for: Noted in HPI Physical Exam BP: 135/86 (07/02 1100) Temp: 37 C (98.6 F) (07/02 0400) Pulse: 98 (07/02 1100) Respirations: 16 PER MINUTE (07/02 1100) SpO2: 98 % (07/02 1100) O2 Delivery: None (Room Air) (07/02 1100) SpO2 Pulse: 98 (07/02 1100) Height: 167.6 cm (66") (07/01 1445) Body mass index is 25.48 kg/m. Gen: Lethargic, lying in bed HEENT: NG in place Neck: Supple, no elevated JVP Heart: extremities well perfused Lungs: Not in pulmonary distress Abdomen: Soft, non-tender, non-distended, +BS : Suprapubic catheter Skin: No rash/lesion Ext: Moves all extremities spontaneously MSK: unable to assess due to pt participation Neuro: Cranial Nerves Left facial asymmetry. Difficult to perform CN exam 2/2 pt participation DTR's No hyperreflexia Babinski Plantar Reflex is Downgoing Bilaterally Avendano Normal Finger to Nose Normal Heel to [place] Normal Rapid Alternating Movements Normal Upper Extremity Tone Normal Lower Extremity Tone Normal Upper Extremity Sensation Intact to light touch bilaterally Lower Extremity Sensation Intact to light touch bilaterally Clonus Negative Bilaterally Proprioception Intact Bilaterally Memory/Cognition/Speech Dysarthric speech. Unable to assess fluency Intake/Output Summary: Intake/Output Summary (Last 24 hours) at 07/02/18 1317 Last data filed at 07/02/18 1100 Gross per 24 hour Intake 1843.92 ml Output 1960 ml Net -116.08 ml No Data Recorded No Data Recorded No Data Recorded No Data Recorded No Data Recorded No Data Recorded No Data Recorded Basic Metabolic Profile Lab Results Component Value Date/Time NA 140 07/02/2018 04:15 AM K 4.2 07/02/2018 04:15 AM CA 8.5 07/02/2018 04:15 AM CL 113 (H) 07/02/2018 04:15 AM CO2 20 (L) 07/02/2018 04:15 AM Lab Results Component Value Date/Time BUN 12 07/02/2018 04:15 AM CR 0.88 07/02/2018 04:15 AM GLU 127 (H) 07/02/2018 04:15 AM CBC w/Diff Lab Results Component Value Date/Time WBC 10.3 07/02/2018 04:15 AM RBC 3.17 (L) 07/02/2018 04:15 AM HGB 8.8 (L) 07/02/2018 04:15 AM HCT 28.2 (L) 07/02/2018 04:15 AM MCV 88.8 07/02/2018 04:15 AM MCH 27.8 07/02/2018 04:15 AM RDW 14.0 07/02/2018 04:15 AM PLTCT 401 (H) 07/02/2018 04:15 AM MPV 8.9 07/02/2018 04:15 AM Lab Results Component Value Date/Time NEUT 75 07/01/2018 12:50 PM ANC 7.10 (H) 07/01/2018 12:50 PM LYMA 15 (L) 07/01/2018 12:50 PM ALC 1.50 07/01/2018 12:50 PM JEFFREY 8 07/01/2018 12:50 PM AMC 0.80 07/01/2018 12:50 PM EOSA 2 07/01/2018 12:50 PM AEC 0.20 07/01/2018 12:50 PM BASA 0 07/01/2018 12:50 PM ABC 0.00 07/01/2018 12:50 PM Radiology: Pertinent radiology reviewed in this encounter Miscellaneous Notes * Case Mgmt DC Plan - [facility] - 07/09/2018 11:04 AM CDT PERSONNEL PLACEMENT SPECIALIST Note: This telegraphic typewriter mechanic printed and placed transfer packet in pt's chart drawer, per request from [facility] Sophia Vaughn. [facility] Oxygen Therapy Technician For additional assistance, please contact [facility] Sophia Vaughn *[phone] * Anesthesia Post Op Day 1 - Claudia Floyd SRNA - 07/09/2018 10:21 AM CDT Formatting of this note may be different from the original. Anesthesia Follow-Up Evaluation: Post-Procedure Day One Name: Valdez Anthony : 1960 Age: 57 y.o. Sex : male Procedure Date: 07/08/2018 Procedure: Procedure(s): ESOPHAGOGASTRODUODENOSCOPY COLONOSCOPY ESOPHAGOGASTRODUODENOSCOPY BIOPSY COLONOSCOPY EXCISION LESION Physical Assessment Height: 167.6 cm (66") Weight: 71.6 kg (157 lb 13.6 oz) Vital Signs (Last Filed in 24 hours) BP: 171/73 (07/09 946) Temp: 37.5 C (99.5 F) (07/09 908) Pulse: 82 (07/09 946) Respirations: 19 PER MINUTE (07/09 946) SpO2: 96 % (07/09 946) O2 Delivery: None (Room Air) (07/09 908) SpO2 Pulse: 83 (07/09 946) Patient History Allergies No Known Allergies Medications Scheduled Meds: amLODIPine (NORVASC) tablet 10 mg 10 mg Oral QDAY aspirin chewable tablet 81 mg 81 mg Oral QDAY atorvastatin (LIPITOR) tablet 40 mg 40 mg Oral QHS heparin (porcine) PF syringe 5,000 Units 5,000 Units Subcutaneous Q8H insulin aspart U-100 (NOVOLOG FLEXPEN) injection PEN 0-7 Units 0-7 Units Subcutaneous ACHS insulin glargine (LANTUS SOLOSTAR, BASAGLAR) injection PEN 15 Units 15 Units Subcutaneous QDAY lisinopril (PRINIVIL; ZESTRIL) tablet 40 mg 40 mg Oral QDAY melatonin tablet 5 mg 5 mg Oral QHS metoprolol tartrate (LOPRESSOR) tablet 12.5 mg 12.5 mg Oral BID nortriptyline (PAMELOR) capsule 10 mg 10 mg Oral QHS polyethylene glycol 3350 (MIRALAX) packet 17 g 1 packet Oral QDAY QUEtiapine (SEROQUEL) tablet 25 mg 25 mg Oral BID senna/docusate (SENOKOT-S) solution 10 mL 10 mL Oral BID Continuous Infusions: PRN and Respiratory Meds:acetaminophen Q6H PRN, bisacodyl QDAY PRN, hydrALAZINE Q6H PRN, labetalol (NORMODYNE; TRANDATE) injection Q6H PRN Diagnostic Tests Hematology: Lab Results Component Value Date HGB 8.9 07/09/2018 HCT 26.7 07/09/2018 PLTCT 459 07/09/2018 WBC 15.4 07/09/2018 NEUT 77 07/09/2018 ANC 11.70 07/09/2018 ALC 2.10 07/09/2018 JEFFREY 8 07/09/2018 AMC 1.30 07/09/2018 EOSA 1 07/09/2018 ABC 0.00 07/09/2018 MCV 90.0 07/09/2018 MCH 29.9 07/09/2018 MCHC 33.2 07/09/2018 MPV 8.2 07/09/2018 RDW 14.3 07/09/2018 General Chemistry: Lab Results Component Value Date NA 137 07/09/2018 K 3.7 07/09/2018 CL 105 07/09/2018 CO2 23 07/09/2018 GAP 9 07/09/2018 BUN 5 07/09/2018 CR 0.98 07/09/2018 GLU 118 07/09/2018 CA 8.5 07/09/2018 ALBUMIN 3.0 07/09/2018 LACTIC 1.5 07/01/2018 OBSCA 1.14 07/02/2018 MG 1.9 07/02/2018 TOTBILI 0.6 07/09/2018 PO4 2.6 07/02/2018 Coagulation: Lab Results Component Value Date PTT 32.5 01/15/2016 INR 1.1 01/15/2016 Follow-Up Assessment Patient location during evaluation: floor Anesthetic Complications: Anesthetic complications: The patient did not experience any anesthestic complications. Pain: Score: 10 Management:inadequate (Patient complaining of pain in legs; patient and educated to coordinate pain control plan with primary team and bedside RN. verbalizs understanding) Level of Consciousness: awake and alert Hydration:acceptable Airway Patency: patent Respiratory Status: acceptable and room air Cardiovascular Status:acceptable and hemodynamically stable Regional/Neuroaxial: * Case Mgmt DC Barbara - Sophia Vaughn - 07/09/2018 7:58 AM CDT Formatting of this note may be different from the original. Case Management Progress Note NAME:Valdez Anthony :1959 AGE: 57 y.o. ADMISSION DATE: 07/01/2018 DAYS ADMITTED: LOS: 8 days Todays Date: 07/09/2018 Plan D/c to [facility] today at 1:00pm via facility w/c van. Interventions WILLEM reviewed EMR and met with Neuro team for huddle. ? Support Support: Pt/Family Updates re:POC or DC Plan, Counseling for Adaptation to Illness, Counseling for Psychosocial issues WILLEM attempted to visit pt and Leticia at bedside to update, however all parties currently working with another discipline. ? Info or Referral ? Discharge Planning Discharge Planning: Senior Living Facility WILLEM sent updated clinicals to [facility] at [phone]. Update 10:00am: WILLEM spoke with Perla ([phone]) at [facility] to update. Perla educated that they will be available for transportation today at 1:00pm. WILLEM spoke with Neuro Team to update. WILLEM spoke with bedside RN to update. WILLEM tasked [facility] to deliver transfer packet. RN Report: [phone] WILLEM faxed d/c orders to [facility] at [phone]. ? Medication Needs ? Financial ? Legal ? Other Other/None: No needs identified Disposition ? Expected Discharge Date Expected Discharge Date: 07/09/18 ? Transportation Does the patient need discharge transport arranged?: Yes Transportation Name, Phone and Availability #1: likely facility transport Does the patient use Medicaid Transportation?: No ? Next Level of Care (Acute Psych discharges only) ? Discharge Disposition Durable Medical Equipment No service has been selected for the patient. Destination No service has been selected for the patient. Home Care No service has been selected for the patient. Dialysis/Infusion No service has been selected for the patient. Sophia Vaughn LMSW Phone: [phone] Pager: [phone] * Case Mgmt DC Plan - Sophia Vaughn - 07/08/2018 9:10 AM CDT Formatting of this note may be different from the original. Case Management Progress Note NAME:Valdez Anthony :1959 AGE: 57 y.o. ADMISSION DATE: 07/01/2018 DAYS ADMITTED: LOS: 7 days Todays Date: 07/08/2018 Plan Anticipate d/c to [facility] tomorrow pending pt stability. Interventions WILLEM reviewed EMR and met with Neuro team for huddle. Infection w/c ongoing. Gi consulted, anticipate EGD today. ? Support Support: Pt/Family Updates re:POC or DC Plan, Counseling for Adaptation to Illness, Counseling for Psychosocial issues WILLEM visited pt's Leticia at bedside to update, pt currently off unit in GI. Leticia verbalized agreement with d/c and denied concerns. WILLEM spoke with bedside RN and pt would likely be safe to transport via w/c van. ? Info or Referral ? Discharge Planning Discharge Planning: Senior Living Facility WILLEM received and returned message for Angela ([phone]) at [facility] to discuss referral. Update 10:00am: WILLEM spoke with Blanquita ([phone]) at [facility] to update of anticipated d/c timeline. Blanquita educated that they are still reviewing for potential admission and will be contacting pt's to further discuss an admission. However, they will notify WILLEM once decision reached. Update 10:44am: WILLEM spoke with Perla at [facility] to update. Perla educated that they are able to accept for admission and will have their w/c van available for such. ? Medication Needs ? Financial [employer] following for assistance with [place] Medicaid ariel. ? Legal ? Other Other/None: No needs identified Disposition ? Expected Discharge Date Expected Discharge Date: 07/08/18 ? Transportation Does the patient need discharge transport arranged?: Yes Transportation Name, Phone and Availability #1: likely facility transport Does the patient use Medicaid Transportation?: No ? Next Level of Care (Acute Psych discharges only) ? Discharge Disposition Durable Medical Equipment No service has been selected for the patient. [facility] Destination No service has been selected for the patient. Home Care No service has been selected for the patient. Dialysis/Infusion No service has been selected for the patient. Sophia Vaughn LMSW Phone: [phone] Pager: [phone] * Care Plan - Shira Welch RN - 07/08/2018 5:23 AM CDT Problem: Infection, Risk of, Urinary Catheter-Associated Urinary Tract Infection Goal: Absence of urinary catheter-associated infection Outcome: Goal Ongoing CHG wipes used for catheter care Problem: Neurological Status, Impaired/Altered Goal: Progress toward maximizing functional outcomes Outcome: Goal Ongoing Therapuetic relationship established. Safe environment provided. Reorientation provided as necessary. Positive coping methods discussed. Safety precautions per hospital policy. Problem: Falls, High Risk of Goal: Absence of falls-Adult Patient Outcome: Goal Ongoing Fall precautions implemented. Promoted safe environment. Problem: Discharge Planning Goal: Participation in plan of care Outcome: Goal Ongoing POC reviewed and discussed. Encouraged pt to ask questions. Problem: Skin Integrity Goal: Skin integrity intact Outcome: Goal Ongoing Pt. repostioned Q2 hrs. Incontinence monitored for skin breakdown and brief changed as needed. * Case Mgmt DC Plan - Sophia Vaughn - 07/07/2018 8:52 AM CDT Formatting of this note may be different from the original. Case Management Progress Note NAME:Valdez Anthony :1959 AGE: 57 y.o. ADMISSION DATE: 07/01/2018 DAYS ADMITTED: LOS: 6 days Todays Date: 07/07/2018 Plan Anticipate d/c to [facility] tomorrow pending pt stability and facility acceptance. Interventions WILLEM reviewed EMR and met with Neuro team for huddle. GI consulted. Anticipated EGD today. ? Support Support: Pt/Family Updates re:POC or DC Plan, Counseling for Adaptation to Illness, Counseling for Psychosocial issues ? Info or Referral ? Discharge Planning Discharge Planning: Senior Living Facility WILLEM left message for Admissions ([phone]) at [facility] to discuss referral. Update 11:40am: WILLEM spoke with Hyacinth ([phone]) at [facility] and they are unable to locate referral. WILLEM agreeable to re-send referral to [phone], which WILLEM completed. Hyacinth educated that she will review and follow up. Hyacinth will also speak with her supervisory civil engineer to discuss their ability to assist with transportation. Update 1:20pm: WILLEM received message from Hyacinth and they are still unable to locate referral. WILLEM manually faxed referral to [phone], as requested. Update 2:00pm: WILLEM received message from Hyacinth that they only got a portion of the referral. WLILEM re-faxed referral to [phone]. Update 4:00pm: WILLEM received and returned message for [facility] ([phone][facility]. ? Medication Needs ? Financial ? Legal ? Other Other/None: No needs identified Disposition ? Expected Discharge Date Expected Discharge Date: 07/08/18 ? Transportation Does the patient need discharge transport arranged?: Yes Transportation Name, Phone and Availability #1: likely facility transport Does the patient use Medicaid Transportation?: No ? Next Level of Care (Acute Psych discharges only) ? Discharge Disposition Durable Medical Equipment No service has been selected for the patient. Destination No service has been selected for the patient. Home Care No service has been selected for the patient. Dialysis/Infusion No service has been selected for the patient. Sophia Vaughn LMSW Phone: [phone] Pager: *[phone] * Care Plan - Shira Welch RN - 07/07/2018 6:17 AM CDT Problem: Neurological Status, Impaired/Altered Goal: Progress toward maximizing functional outcomes Outcome: Goal Ongoing Therapuetic relationship established. Safe environment provided. Reorientation provided as necessary. Positive coping methods discussed. Safety precautions per hospital policy. Problem: Falls, High Risk of Goal: Absence of falls-Adult Patient Outcome: Goal Ongoing Fall precautions implemented. Promoted safe environment. Problem: Discharge Planning Goal: Participation in plan of care Outcome: Goal Ongoing POC reviewed and discussed. Encouraged pt to ask questions. Problem: Skin Integrity Goal: Skin integrity intact Outcome: Goal Ongoing Pt. repostioned Q2 hrs. Incontinence monitored for skin breakdown and brief changed as needed. * Case Mgmt DC Barbara - Liana Ortiz - 07/06/2018 10:50 AM CDT PERSONNEL PLACEMENT SPECIALIST Note: Received request from [facility] Sophia Vaughn to fax referrals to the following placements. [facility] was also asked to check wheelchair van costs to the facility. [place] [facility] - $350-375 [facility] - $500-525 [facility] - $400-425 [facility] w/c van - $430 All subject to time, billed democrat, needs, etc. Updated [facility] Liana Ortiz Oxygen Therapy Technician For additional assistance please contact [facility] Sophia Vaughn *[phone] * Case Mgmt DC Plan - Sophia Vaughn - 07/06/2018 10:36 AM CDT Formatting of this note may be different from the original. Case Management Progress Note NAME:Valdez Anthony :1959 AGE: 57 y.o. ADMISSION DATE: 07/01/2018 DAYS ADMITTED: LOS: 5 days Todays Date: 07/06/2018 [facility] pending pt stability and facility acceptance. Interventions SW reviewed EMR and met with Neuro team for huddle. Anticipate GI consult. Continue to monitor hgb. ? Support Support: Pt/Family Updates re:POC or DC Plan, Counseling for Adaptation to Illness, Counseling for Psychosocial issues SW visited pt and Leticia at bedside to discuss DCP. Leticia requested referral to [facility]. SW agreeable and reviewed referral process. SW also reviewed potential private pay cost of w/c van should SNF be unable to assist. Leticia uncertain regarding their ability to private pay, however unwilling to remain in [facility] for SNF stay. SW agreeable to obtaining quote for ongoing assistance. ? Info or Referral ? Discharge Planning Discharge Planning: Senior Living Facility SW tasked PERSONNEL PLACEMENT SPECIALIST to [facility]. SW tasked PERSONNEL PLACEMENT SPECIALIST to check [place] of w/c van. ? Medication Needs ? Financial ? Legal ? Other Other/None: No needs identified Disposition ? Expected Discharge Date Expected Discharge Date: 07/07/18 ? Transportation Does the patient need discharge transport arranged?: Yes Transportation Name, Phone and Availability #1: likely facility transport Does the patient use Medicaid Transportation?: No ? Next Level of Care (Acute Psych discharges only) ? Discharge Disposition Durable Medical Equipment No service has been selected for the patient. Destination No service has been selected for the patient. Home Care No service has been selected for the patient. Dialysis/Infusion No service has been selected for the patient. Sophia Vaughn LMSW Phone: [phone] Pager: [phone] * Case Mgmt DC Plan - Sophia Vaughn - 07/03/2018 2:11 PM CDT Formatting of this note may be different from the original. Case Management Progress Note NAME:Valdez Anthony :1959 AGE: 57 y.o. ADMISSION DATE: 07/01/2018 DAYS ADMITTED: LOS: 2 days Todays Date: 07/03/2018 Plan Anticipate d/c to SNF mid next week pending pt stability and facility acceptance. Interventions SW reviewed EMR and met with Neuro team for huddle. ? Support Support: Pt/Family Updates re:POC or DC Plan, Counseling for Adaptation to Illness, Counseling for Psychosocial issues SW visited pt's Leticia at bedside to discuss DCP. SW educated on SNF level of care and benefit. WILLEM provided list of options. Leticia endorsing understanding of SNF level of care from family members working in SNFs. Leticia educated that she will review options this weekend and denied current concerns. ? Info or Referral ? Discharge Planning Discharge Planning: Senior Living Facility ? Medication Needs ? Financial ? Legal ? Other Other/None: No needs identified Disposition ? Expected Discharge Date Expected Discharge Date: 07/07/18 ? Transportation Does the patient need discharge transport arranged?: Yes Transportation Name, Phone and Availability #1: likely facility transport Does the patient use Medicaid Transportation?: No ? Next Level of Care (Acute Psych discharges only) ? Discharge Disposition Durable Medical Equipment No service has been selected for the patient. Destination No service has been selected for the patient. Home Care No service has been selected for the patient. Dialysis/Infusion No service has been selected for the patient. Sophia Vaughn LMSW Phone: [phone] Pager: [phone] * Transfer - Ciarra Valentino DO - 07/02/2018 10:24 AM CDT In-Hospital Transfer Note Admission Diagnosis: R M1 Occlusion, R MCA Stroke Admission Date: 07/01/2018 Active Hospital Problem List: Principal Problem: Stroke (HCC) Active Problems: HTN (hypertension) Diabetes (HCC) HPI: Valdez Anthony is a 57 y.o. male is a 57 y.o. male with new onset Atrial Fibrillation with RVR, HTN, HLD, T2DM, Diabetic Retinopathy, OD Blindness, Neovascular Glaucoma, Prostate Cancer s/p prostatectomy, Urinary Retention s/p suprapubic catheter that was admitted at [facility] for urosepsis, DKA , A fib with RVR requiring cardizem ggt that was transferred for concerns for stroke Hospital Course: Neuro: NIH-SS upon arrival 34. CTA with R M1 occlusion. CTP with large perfusion mismatch (50% volume) within R MCA distribution. Underwent mechanical thrombectomy TICI3. Admitted to NEICU. Patient somnolent after arrival, pt received ativan in route, given flumazenil, without significant improvement in exam. ABG unremarkable. CT Head with small hemorrhagic conversion in R lentiform nucleus. EEG with diffuse slowing consistent with encephalopathy. MRI with bilateral temporal lobe infarcts, R insular cortex, R insular cortex, infarcts and small areas of hemorrhagic conversion. Started on ASA. LDL 40, continued on pilot boat captain atrovastatin. PT/OT and Speech consulted. CV: Initially started on Nicardipine ggt for goal SBP <140. Restarted on pilot boat captain lisinopril. Intermittent Afib on telemetry. Restarted on Diltiazem 30mg q6h. Resp: Intermittent hypoxia likely secondary to upper airway obstruction. ABG unremarkable, CO2 39. Currently stable on RA FEN/GI: NPO. Speech consulted. Started enteral feeds. Heme: Had episode of hematemesis at OSH. Hgb stable at 8.8. Had small amount of oropharynx bleeding with placement of corpak. On Heparin ppx. ID: Treated for urosepsis at OSH 2/2 to urinary retention s/p suprapubic catheter placement. On CTX Day 01/24. OSH Urine Cultures showing no growth, finalized. OSH blood cultures growing coag neg staph. Repeat blood cultures pending. Renal/: Urinary retention s/p suprapubic catheter at OSH. Urology consulted. Endo: DKA at OSH. DKA resolved. Insulin ggt continued. Holding pilot boat captain Levemir and Novolog. Consider Endocrine consult. Significant Medication Information (to include antibiotic duration/indication, anticoagulation and steroids, etc.): Neuro: ASA, Atorvastatin. Discuss AC. CV: Diltiazem ID: [id number] (Day 01/24) Endo: Insulin ggt Procedures With Dates: Thrombectomy TICI-3 07/01 Consults: Urology Follow-Up Items: -Discuss timing of AC -F/u Nutrition recs -F/u OSH Blood and repeat Blood Cx -Consider Endocrine consult Nutrition: NPO. Enteral feeds. Discharge Plan: Undetermined Ciarra Valentino DO Pager [phone] * Case Mgmt DC Plan - Sophia Vaughn - 07/01/2018 3:09 PM CDT Case Management Admission Assessment NAME:Valdez Anthony :1959 AGE: 57 y.o. ADMISSION DATE: 07/01/2018 DAYS ADMITTED: LOS: 0 days Todays Date: 07/01/2018 Source of Information: SW visited pt's Leticia and pt's OCTAVIANO Moseley at bedside. Plan Plan: CM Assessment, Assist PRN with SW/NCM Services Patient Address/Phone [address] [place] [address] (home) Emergency Contact Extended Emergency Contact Information Primary Emergency Contact: Suzie English (ANTONINO) Relation: Relative Secondary Emergency Contact: Leticia Anthony (Judy) [facility] Relation: Spouse Healthcare Directive None Transportation Does the patient need discharge transport arranged?: Yes Transportation Name, Phone and Availability #1: likely facility transport Does the patient use Medicaid Transportation?: No Expected Discharge Date Expected Discharge Date: 07/03/18 Living Situation Prior to Admission ? Living Arrangements Type of Residence: Home, independent Living Arrangements: Spouse/significant other (Pt lives with his Ingris, their 5 dogs, and 1 cats. ) Bathroom Shower / Tub: Walk-in Shower How many levels in the residence?: 1 Can patient live on one level if needed?: N/A Does residence have entry and/or side stairs?: Yes (There are 6 entry steps. ) Assistance needed prior to admit or anticipated on discharge: Yes Who provides assistance or could if needed?: Pt's Ingris is retired and able to provide consistent assistance. Leticia has been providing assistance with homemaker services and transportation for the last several years. Are they in good health?: Yes Can support system provide 24/7 care if needed?: Yes ? Level of Function Prior level of function: Independent (Prior to admission, pt was independent with ADLs. Pt is blind in his right eye. Pt interemittently uses a white cane within the community and does not drive. Pt is incontient of bladder and wears briefs. ) ? Cognitive Abilities Cognitive Abilities: Continue to Assess (Pt off unit for majority of assessment. ) Financial Resources ? Coverage Primary Insurance: Medicare (Medicare Part A and B) Secondary Insurance: [place] ([employer]) Additional Coverage: VA (fills at [facility]. ) ? Source of Income Source Of Income: SSDI ? Financial Assistance Needed? None Psychosocial Needs ? Mental Health Mental Health History: No ? Substance Use History Substance Use History Screen: No ? Other None Current/Previous Services ? PCP Chris Seay APRN at [facility] ([phone] ext [phone]) ? Pharmacy [facility] [address] [address] ? Durable Medical Equipment Durable Medical Equipment at home: Roller Walker, Rollator, 2 white canes, BS meter ? Home Health Receiving home health: No ? Hemodialysis or Peritoneal Dialysis Undergoing hemodialysis or peritoneal dialysis: No ? Tube/Enteral Feeds Receive tube/enteral feeds: No ? Infusion Receive infusions: No ? Private Duty Private duty help used: No ? Home and Community Based Services Home and community based services: No ? Rm Abdalla White: No ? Hospice Hospice: No ? Outpatient Therapy PT: No OT: No ELECTRIC RELAY TESTER: No ? Senior Living Facility/Half-Way SNF: No NH: No Pt's OCTAVIANO Moseley works at [employer], therefore family understanding of LTC and SNF level of cares. ? Inpatient Rehab IPR: No ? Long-Term Acute Care Hospital LTACH: No ? Acute Hospital Stay Acute Hospital Stay: In the past Was patient's stay within the last 30 days?: No Sophia Vaughn LMSW Phone: [phone] Pager: [phone] * Acute Stroke Response - Alonzo Watt APRN-ROSEANN - 07/01/2018 12:40 PM CDT Formatting of this note may be different from the original. NAME:Valdez Anthony :1960 AGE: 57 y.o. ADMISSION DATE: 07/01/2018 DAYS ADMITTED: LOS: 0 days Date of Service: 07/01/2018 Allergies: Patient has no known allergies. Type of ASRT note: Consult Assessment & Plan Chief Complaint: left side weakness Assessment: Valdez Anthony is a 57 y.o. 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 Arrival time to via helicopter at 1118. He received 2mg Ativan during the flight for agitation. On arrival he was transported urgently to CT. SBP on arrival was 130's. CTA head and neck with R M1 occlusion. CT perfusion scan obtained as ASPECTS score was 5-6. Perfusion scan found significant Penumbra to Infarct ratio (2.1). Pre-procedure NIHSS 34. Patient was taken immediately to IR room #1 for EVT. Unable to reach patients by phone so procedure was completed based on medical necessity. Procedure completed 1220, TICI [address] Perry. Impression: Acute Ischemic Stroke Suspected localization of Stroke Sx: R M1 occlusion Suspected etiology: Cardio Embolism Pre-event mRS: 0 - No symptoms at all Plan: - Cerebral Arteriogram stat for endovascular thrombectomy - Admit to NEICU for post thrombectomy monitoring - SBP goals per IR: <140 - Cardene gtt for BP - Labs: per NEICU protocol, add Hgb A1c and FLP (serial H&H's due to positive occult) - 300mg ASA VA daily - Echocardiogram - MRI head w/o contrast in AM of 07/02 - Monitor telemetry for arrhythmia - NPO - ELECTRIC RELAY TESTER to eval speech when more alert - PT/OT to eval and treat - Rehab Medicine Consult The patient was seen and discussed with Dr. Gutierrez [facility] of Present Illness: Mr. Anthony presented to [facility] on 06/29 with uro-sepsis and DKA. Supra- pubic catheter placed on 06/29 due to multiple unsuccessful attempts at catheterization. Coumadin was stopped and he was on Heparin gtt as well as Cardizem/Insulin gtt. A-fib had converted to SR. Heparin gtt and Cardizem were then stopped on 06/30. Insulin gtt was stopped on 07/01. On the morning of 07/01 he was found by nursing staff to be non verbal with left hemiplegia. He was accepted for transfer by for further evaluation of stroke. Arrival time to via helicopter at 1118. Transported urgently to CT and then to IR for EVT. At [facility] he had dropping Hgb and positive heme occult. Review of Systems Review of systems not obtained from patient due to patient factors. Stroke Activation Summary CT/CTP/CTA: NIHSS Completed at: 1145 NIH Stroke Scale Item Scoring Definition Score 1a. LOC 0=alert and responsive 1=arousable to minor stimulation 2=arousable only to painful stimulation 3=reflex responses or unrousable 3 1b. LOC questions-as patients age and month. Must be exact. 0=both correct 1=one correct (or dysarthria, intubated, foreign language) 2=neither correct 2 1c. 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, assistant guest services manager and release non-paretic hand (other 1 step commands or mimic OK) 0=both correct (ok if impaired by weakness) 1=one correct 2=neither correct 2 2. Best Gaze-horizontal EOM by voluntary or Dolls 0=normal 1=partial gaze palsy (abnormal gaze in one or both eyes) 2=forced eye deviation or total paresis which cannot be overcome by Dolls 2 3. Visual Field-use visual threat if necessary. If monocular, score field of good eye 0=no visual loss 1=partial hemianopia, quadrantanopia, extinction 2=complete hemianopia 3=bilateral hemianopia or blindness 1 4. Facial Palsy-if stuporous, check symmetry of grimace to pain 0=normal 1=minor paralysis, flat NLF, asymm smile 2=partial paralysis (lower face=UMN) 3=complete paralysis (upper and lower face) 2 5. Motor Arm-arms outstretched 90 deg (sitting) or 45 deg (supine) for 10 seconds. Encourage best effort. 0=no drift x 10 seconds 1=drift but doesnt hit bed 2=some antigravity effort, but cant sustain 3=no antigravity effort, but even minimal mvt counts 4=no movement at all X=unable to assess due to amputation, fusion, etc L/R 4/2 6. Motor Leg-raise leg to 30 degrees supine x 5 seconds 0=no drift x 5 seconds 1=drift but doesnt hit bed 2=some antigravity effort, but cant sustain 3=no antigravity effort, but even minimal mvt counts 4=no movement at all X=unable to assess due to amputation, fusion, etc L/R 4/3 7. Limb Ataxia-check finger-nose- finger; heel-palencia; and score only if out of proportion to paralysis 0=no ataxia (or aphasic, hemiplegic) 1=ataxia in upper or lower extremity 2=ataxia in upper AND lower extremity X=unable to assess due to amputation, fusion, etc 0 8. Sensory-use safety pin. Check grimace or withdrawal if stuporous. Score only stroke- related losses 0=normal 1=mild-mod unilateral loss but patient aware of touch 9or aphasic, confused) 2=total loss, pt unaware of touch. Coma, bilateral loss 2 9. Best Language-describe cookie jar picture, name objects, read sentences. May use repeating, writing, stereognosis 0=normal 1=mild-mod aphasia (diff but partly comprehensible) 2=severe aphasia (almost no info exchanged) 3=mute, global aphasia, coma. No 1 step commands 3 10. Dysarthria-read list of words 0=normal 1=mild-mod; slurred but intelligible 2=severe; unintelligible or mute 2 11. Extinction/Neglect- simultaneously touch patient on both hands, show fingers in both visual munoz, ask about deficit, left hand 0=normal, none detected. (visual loss alone) 1=neglects or extinguishes to double simult stimulation in any modality 2=profound neglect in more than one modality 2 Score 34 Was IV tPA given? 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 LASER Family History Problem Relation Age of Onset Coronary Artery Disease Mother Hypertension Mother Coronary Artery Disease Father Hypertension Father Blindness Neg Hx Cancer Neg Hx Cataract Neg Hx Glaucoma Neg Hx Macular Degen Neg Hx Neurologic Disorder Neg Hx Retinal Detachment Neg Hx Strabismus Neg Hx Stroke Neg Hx Thyroid Disease Neg Hx Autoimmune Disease Neg Hx Diabetes Paternal Aunt Diabetes Maternal Aunt Diabetes Maternal Uncle Social History Social History Marital status: Spouse name: N/A Number of children: N/A Years of education: N/A Social History Main Topics Smoking status: Former Smoker Packs/day: 2.00 Years: 20.00 Types: Cigars Quit date: 10/20/2011 Smokeless tobacco: Never Used Alcohol use No Drug use: No Sexual activity: Not on file Other Topics Concern Not on file Social History Narrative No narrative on file Medications: PRN Medications: [MAR Hold] calcium gluconate IV PRN (Form Drafter from Rx) AND Ionized Calcium PRN AND Notify Physician Ongoing, [MAR Hold] magnesium sulfate PRN AND Magnesium PRN AND Notify Physician Ongoing, [DEC Hold] potassium chloride SR PRN OR [DEC Hold] potassium chloride PRN, [DEC Hold] sodium phosphate IVPB PRN (Form Drafter from Rx) AND Phosphorus PRN AND Notify Physician Ongoing Physical Exam HEENT: normocephalic, eyes open with no discharge, nares patent, oropharynx is clear with no lesions, palate intact CV: regular rate, distal pulses palpable Chest: normal configuration, equal chest rise bilaterally Ab: soft, non-tender, no masses, no organomegaly Skin: no rashes or lesions Extended Neuro Exam: Mental status: alert, oriented to person/place/time Speech: Normal Abnormal Fluency x Comprehension x Articulation x Repetition x Naming x Cranial Nerves: Normal Abnormal II x III, IV, x V x VII x VIII x IX, X x XI x XII x Muscle/motor: Tone: flaccid on LUE/LLE Bulk: nml Fasciculations: none NF NE SA EF EE WE WF FF FE FA TA HF [place]OD HE KF KE DF PF R 3 2 2 2 2 2 L 0 0 0 0 0 0 Sensation: no response to left side noxious stimuli Normal RUE LUE RLE LLE Light Touch Pin Prick x x Temperature Vibration Proprioception Coordination: unable to assess Normal Abnormal Right Abnormal Left Finger to Nose Rapid alternating Heel to Palencia Finger tap Foot tap Gait and Sation: Deferred Reflexes: Right Left Triceps Biceps 1 1 Brachioradialis 1 1 Patella 1 1 Ankle 1 1 Plantar equivocal equivocal Lab/Radiology/Other Diagnostic Tests: Pertinent labs reviewed Pertinent radiology reviewed. CTP: Mean Transit Time Sequence CTA head: 1. Focal M1 occlusion of [...] posterior lentiform nucleus suggesting smaller completed infarct. Alonzo Watt APRN-ROSEANN [facility] [id number] Associated attestation - Diego Gutierrez MD - 07/01/2018 3:23 PM CDT Formatting of this note may be different from the original. .ATTESTATION I personally interviewed and examined the patient. I have reviewed the history , physical, impression and plan outlined by the Nurse Practitioner. Medical, surgical, family and social hx were reviewed with the patient, as mentioned in the note, otherwise noncontributory. I personally reviewed vitals, labs. Pertinent neuroradiological imagings were viewed. This patient is critically ill from an acute ischemic stroke. I spent 45 minutes (excluding time spent performing or supervising any procedures) providing and directing critical care services. The patient is at risk of life- threatening deterioration and required immediate, high complexity decision- making as to whether the patient should be given tPA and/or taken for endovascular therapy. The cumulative time spent on 80 mintues providing critical care services includes: discussing the case with the referring physician and reviewing their records, performing a neurologic exam and NIHSS on arrival, serially reviewing vitals and in particular avoiding hypotension or excessive hypertension, obtaining emergent point of care labs, obtaining emergent radiologic imaging, and developing an overall plan of care. The patient will be moved to the NEICU to continue ICU level care. The patient presents with (HPI) 57 was at [facility] iCU for urospesis, was on heprain gtt for his Afib, converted to sinus rhythm with cardizem gtt, had acute onset L sided wks and R gaze deviation, LKN at 7:30 am, tPA was not recommeded given the recent suprapubic catheter placement and the trending down of Hb w positive stool occult blood according the ICU physician. Transfer to for EVT. Pt. Was given 2 mg of ativan in route due to agitation. CT showed R temporal and temporoparietal loss of g-w differentiation w a borderline ASPECT of 6. Pt. Was taken to EVT w TICI 3 perfusion afterwards. On examination: after ativan was worse than reported, he has a high NIHSS as mentioned, was stuporous, L hemiplegia, some R movement, not communicating or follow commands My impression is cardioembolic ischemic stroke of the R MCA artery, secondary to Afib My plan is : ICU admission, stroke w.u as mentioned, strict SBP up to 140mmHg to minimize reperfusion injury, head CT in 24 hrs, will decide on ASA and AC based on the head CT results. Immediate Head CT for any sudden change in neurologic status. Staff name: Diego Gutierrez MD Date: 07/01/2018 * Procedures (Immed Post or Bedside) - Lulu Perry MD - 07/01/2018 12:30 PM CDT Formatting of this note may be different from the original. Neuro Interventional Immediate Post Procedure Note Date: 07/01/2018 Attending Physician: Lulu Perry MD Financial Analysis Manager(s): Miri Nair Stroke Treatment Time out performed: performed under emergent medical necessity Indications: Right MCA occlusion Anesthesia: Conscious Sedation Sedation/Medication Plan: Conscious sedation Post Op Dx: Right mca stroke Findings: Right m1 occlusion TICI 0; s/p stent-retriever/aspiration with TICI 2C Cerebral Arteriogram Data Deployment of Mechanical Device Time: 1215 First Pass Time: 1215 Recanalization/Revascularization Time: 1220 Final TICI Score: Grade 3 Complete perfusion Estimated Blood Loss: Less than 50 ml Specimen(s) Removed/Disposition: None Complications: None Comments: none Closure Device: 8F Angioseal Recommended Blood Pressure Parameters: SBP <140 mmHg Recommended Anticoagulants: Pending MRI-brain Neuro Exam: Sedated from ativan Lulu Perry MD Pager: [phone] * Acute Stroke Response - Hannah Ceballos RN - 07/01/2018 12:14 PM CDT Formatting of this note may be different from the original. RN Stroke Activation Summary Date of Service: 07/01/2018 Valdez Anthony is a 57 y.o. male. : 1960 Allergies: Patient has no known allergies. Patient Arrival: 1118 ASRT Arrival: 1108 Location of Response : [address] 2nd floor Page Received: 1102 (ETA 10 minutes) EMS Agency: [facility] Outside Hospital: [facility] Clinical Presentation: Decreased LOC, Dysarthria, Left facial droop, Left sided weakness Total Stroke Scale Score: 33 Signs & Symptoms: Last Known Well Last Known Well - Date: 07/01/18 Last Known Well - Time: 0730 Dysphagia screen: Did Patient Pass The Swallow Screen Part I?: Yes If "No" Name of Physician Notified: Juan Watt APRN Assessment & Plan Summary: Report received from MAXINE Pardo at [facility] in [place], [place]. Per report patient last known well today at 0730. At 0825 she noted patient to be less responsive with left side flaccid, dysarthria and left facial droop. Patient transferred to [facility] and upon arrival had decreased LOC. Flight crew reported patient was given 2mg Ativan IV in flight. NIHSS 33. Patient unable to participate in exam. Left upper and lower extremity flaccid, no response to painful stimulus on left side, left facial droop, forced eye deviation, patient is mute and does not follow commands. At baseline patient is blind in right eye. CTA head and neck and CTP completed. Dr. Gutierrez and Dr. Perry at bedside to review images. Dr. Perry with ok to proceed to IR for intervention at 1148. Groin puncture achieved at 1158. Groin closure completed and dressing applied at 1228. Patient transported to [facility], VSS and no complications noted. Report given to MAXINE Cooley. CT/CTP/CTA/IR: CTA/CTP time: 1125 CTA/CTP Interpretation time: 1145 N/A Plan: Patient admitted to [place] 5120 post procedure for further evaluation and monitoring. 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 LASER Social History Social History Marital status: Spouse name: N/A Number of children: N/A Years of education: N/A Social History Main Topics Smoking status: Former Smoker Packs/day: 2.00 Years: 20.00 Types: Cigars Quit date: 10/20/2011 Smokeless tobacco: Never Used Alcohol use No Drug use: No Sexual activity: Not on file Other Topics Concern Not on file Social History Narrative No narrative on file Hannah Ceballos RN in this encounter Plan of Treatment Name Priority Associated Diagnoses Date/Time [facility]A REFLEX CULTURE LABEL Routine 07/01/2018 12:53 PM CDT TRANSFUSE RBC'S NON-BLEEDING PT Routine 07/04/2018 1:30 AM CDT TRANSFUSE RBC'S NON-BLEEDING PT Routine 07/04/2018 1:30 AM CDT UA REFLEX CULTURE LABEL Routine 07/05/2018 6:45 PM CDT CULTURE-BLOOD W/SENSITIVITY Routine 07/08/2018 10:25 PM CDT CULTURE-BLOOD W/SENSITIVITY Routine 07/08/2018 8:20 PM CDT UA REFLEX CULTURE LABEL Routine 07/08/2018 4:09 PM CDT SURGICAL PATHOLOGY 07/08/2018 4:34 PM CDT Name Priority Associated Diagnoses Order Schedule SURGICAL PATHOLOGY Routine Acute blood loss anemia ONCE for 1 Occurrences starting 07/08/2018 Name Priority Associated Diagnoses Order Schedule AMB REFERRAL TO GASTROENTEROLOGY Routine Gastrointestinal Ordered: 07/09 hemorrhage with melena as of this encounter Procedures Procedure Name Priority Date/Time Associated Diagnosis [...] CDT procedure are in the results section. in this encounter Results * POC GLUCOSE (07/09/2018 3:42 PM) Glucose, POC 87 70 - 100 MG/DL [facility] Performing Organization Address [facility] Phone Number [facility] [address] [place] [address] * POC GLUCOSE (07/09/2018 3:34 PM) Glucose, POC 66 (L) 70 - 100 MG/DL [facility] Performing Organization Address [facility] Phone Number [facility] [address] [place] [address] * POC GLUCOSE (07/09/2018 3:18 PM) Glucose, POC 69 (L) 70 - 100 MG/DL [facility] Performing Organization Address [facility] Phone Number [facility] [address] [place] [address] * POC GLUCOSE (07/09/2018 1:49 PM) Glucose, POC 136 (H) 70 - 100 MG/DL [facility] Performing Organization Address [facility] Phone Number [facility] [address] [place] [address] * POC GLUCOSE (07/09/2018 11:40 AM) Glucose, POC 158 (H) 70 - 100 MG/DL [facility] Performing Organization Address [facility] Phone Number [facility] [address] [place] [address] * POC GLUCOSE (07/09/2018 8:35 AM) Glucose, POC 104 (H) 70 - 100 MG/DL [facility] Performing Organization Address [facility] Phone Number [facility] [address] [place] [address] * COMPREHENSIVE METABOLIC PANEL (07/09/2018 5:47 AM) Sodium 137 137 - 147 MMOL/L [facility] [...] for questions. Specimen Blood Performing Organization Address [facility] Corporationcode Phone Number [facility] [address] [place] [address] * CBC AND DIFF (07/09/2018 5:47 AM) White Blood Cells 15.4 (H) 4.5 - 11.0 K/UL MAIN [facility] RBC 2.96 (L) 4.4 - [...] Count 459 (H) 150 - 400 K/[facility] MAIN [facility] MPV 8.2 7 - 11 FL [facility] Neutrophils 77 41 - 77 % [facility] Lymphocytes 14 (L) 24 - 44 % [facility] Monocytes 8 4 - 12 % MAIN LAB Eosinophils 1 0 - 5 % MAIN LAB Basophils 0 0 - 2 % [facility] Absolute Neutrophil Count 11.70 (H) 1.8 - 7.0 K/UL [facility] Absolute Lymph Count 2.10 1.0 - 4.8 K/UL [facility] Absolute Monocyte Count 1.30 (H) 0 - 0.80 K/[facility] Absolute Eosinophil Count 0.20 0 - 0.45 K/UL [facility] Absolute Basophil Count 0.00 0 - 0.20 K/[facility]IN [facility] Specimen Blood Performing Organization Address City/[facility]/Zipcode Phone Number [facility] [address] [place] [address] * POC GLUCOSE (07/09/2018 3:09 AM) Glucose, POC 151 (H) 70 - 100 MG/DL [facility] Performing Organization Address City/State/Zipcode Phone Number [facility] [address] [place] [address] * POC GLUCOSE (07/09/2018 1:10 AM) Glucose, POC 80 70 - 100 MG/DL [facility] Performing Organization Address City/[facility]/Zipcode Phone Number [facility] [address] [place] [address] * POC GLUCOSE (07/08/2018 9:52 PM) Glucose, POC 96 70 - 100 MG/DL [facility] Performing Organization Address [facility] Corporationcoia Phone Number [facility] [address] [place] [phone] * POC GLUCOSE (07/08/2018 5:56 PM) Glucose, POC 129 (H) 70 - 100 MG/DL [facility] Performing Organization Address [facility] Phone Number [facility] [address] [place] [phone] * URINALYSIS MICROSCOPIC REFLEX TO CULTURE (07/08/2018 4:09 PM) WBCs,UA 0-2 0 - 2 /HPF [facility] RBCs,UA 0-2 0 - 3 /HPF [facility] Comment,UA Urine submitted for reflex [facility] culture if criteria are met:WBC>10, positive nitrite and/or >=1+ leukocyte esterase. If quantity is not sufficient, an addendum will follow. Specimen Urine Performing Organization Address [facility] Phone Number [facility] [address] [place] [address] * URINALYSIS DIPSTICK REFLEX TO CULTURE (07/08/2018 4:09 PM) Color,UA STRAW [facility] Turbidity,UA CLEAR CLEAR-CLEAR [facility] Specific Rye-Urine 1.005 1.003 - 1.035 [facility] MAIN [facility] [...] MAIN LAB Specimen Urine Performing Organization Address [facility] Phone Number [facility] [address] [place] [phone] * CHEST SINGLE VIEW (07/08/2018 2:15 PM) [...] on 07/08/2018 2:17 PM. Performing Organization Address City/[facility] Corporationcode Phone Number [facility] RAD RESULTS * POC GLUCOSE (07/08/2018 1:57 PM) Glucose, POC 75 70 - 100 MG/DL [facility] Performing Organization Address City/[facility] Corporationcode Phone Number [facility] [address] [place] [address] * POC GLUCOSE (07/08/2018 1:21 PM) Glucose, POC 67 (L) 70 - 100 MG/DL [facility] Performing Organization Address City/[facility] Corporationcode Phone Number [facility] [address] [place] [address] * POC GLUCOSE (07/08/2018 11:46 AM) Glucose, POC 164 (H) 70 - 100 MG/DL MAIN LAB Performing Organization Address City/[facility] Corporationcode Phone Number [facility] [address] [place] [address] * POC GLUCOSE (07/08/2018 11:22 AM) Glucose, POC 40 (LL) 70 - 100 MG/DL MAIN LAB Performing Organization Address [facility] Corporationcoia Phone Number [facility] [address] [place] [address] * EGD REPORT (07/08/2018 10:48 AM) Provation Report Patient Name: Raj DIMAS OTHER RESULTS Procedure Date: 07/08/2018 10:48 AM CSN: [id number] Date of : 1960 Gender: Male Attending Physician: Clara Carolina MD Procedure: Upper GI endoscopy Indications: Anemia (Mixed picture of anemia of chronic disease + Iron deficiency anemia), new onset of Afib and not on AC. Providers: Clara Carolina MD (Doctor), Roberto Dutta MD (Fellow), Alvaro Banegas (Nurse), Minna Jiménez RN (Nurse), Abisai Burden Roadability Machine Operator (Roadability Machine Operator) Referring Physician: Referral Self Medications: Monitored Anesthesia [...] 55 seconds Procedure Code(s): --- Professional --- 72538, Esophagogastroduodenoscopy, flexible, transoral; with biopsy, single or multiple Diagnosis Code(s): --- Professional --- K44.9, Diaphragmatic hernia without obstruction or gangrene K31.89, Other diseases of stomach and duodenum D50.0, Iron deficiency anemia secondary to blood loss (chronic) CPT copyright 2016 [employer]. All rights reserved. The codes documented in this report are preliminary and upon chopper feeder review may be revised to meet current [...] RESULTS Procedure Date: 07/08/2018 10:47 AM CSN: [id number] Date of : 1960 Gender: Male Attending Physician: Clara Carolina MD Procedure: Colonoscop y Indications: Anemia (Mixed picture of anemia of chronic disease + Iron deficiency anemia), new onset of Afib and not on AC. Providers: Clara Carolina MD (Doctor), Roberto Dutta MD (Fellow), Alvaro Banegas (Nurse), Minna Jiménez RN (Nurse), Abisai Burden, Roadability Machine Operator (Roadability Machine Operator) Referring Physician: Gerard Salazar MD Medications: Monitored [...] 15 seconds Procedure Code(s): --- Professional --- 39254, Colonoscopy, flexible; diagnostic, including collection of specimen(s) by brushing or washing, when performed (separate procedure) Diagnosis Code(s): --- Professional --- D50.0, Iron deficiency anemia secondary to blood loss (chronic) CPT copyright 2016 [employer]. All rights reserved. The codes documented in this report are preliminary and upon chopper feeder review may be revised to meet current [...] City/State/Zipcode Phone Number [facility] OTHER RESULTS * POC GLUCOSE (07/08/2018 7:33 AM) Glucose, POC 88 70 - 100 MG/DL [facility] Performing Organization Address [facility] Corporationcoia Phone Number [facility] [address] [place] [address] * PROCALCITONIN (07/08/2018 5:53 AM) Procalcitonin 0.13 (H) <0.10 NG/ML [facility] Performing Organization Address [facility] Corporationcoia Phone Number MAIN LAB [address] [place] [phone] * COMPREHENSIVE METABOLIC PANEL (07/08/2018 5:53 AM) Sodium 138 137 - 147 MMOL/L [facility] Potassium 3.6 3.5 - 5.1 MMOL/L [facility] Chloride 104 98 - 110 MMOL/L [facility] Glucose 79 70 - 100 MG/DL [facility] Blood Urea Nitrogen 6 (L) 7 - 25 MG/DL [facility] Creatinine 1.05 0.4 - 1.24 MG/DL [facility] Calcium 8.5 8.5 - 10.6 MG/DL [facility] Total Protein 6.0 6.0 - 8.0 G/DL [facility] Total Bilirubin 0.7 0.3 - 1.2 MG/DL [facility] Albumin 3.1 (L) 3.5 - 5.0 G/DL [facility] Alk Phosphatase 108 25 - 110 U/L [facility] AST (SGOT) 34 7 - 40 U/L [facility] CO2 26 21 - 30 MMOL/L [facility] ALT (SGPT) 20 7 - 56 U/L [facility] Anion Gap 8 3 - 12 [facility] eGFR [...] for questions. Specimen Blood Performing Organization Address [facility]/Zipcode Phone Number MAIN LAB [address] [place] [phone] * CBC AND DIFF (07/08/2018 5:53 AM) White Blood Cells 21.7 (H) 4.5 - 11.0 K/UL [facility] RBC 3.04 (L) 4.4 - 5.5 M/UL [facility] Hemoglobin 9.3 (L) 13.5 - 16.5 GM/DL [facility] Hematocrit 27.5 (L) 40 - 50 % [facility] MCV 90.4 80 - 100 FL [facility] MCH 30.4 26 - 34 PG [facility] MCHC 33.6 32.0 - 36.0 G/DL [facility] RDW 14.2 11 - 15 % [facility] Platelet Count 521 (H) 150 - 400 K/[facility]IN [facility] MPV 8.0 7 - 11 FL MAIN LAB Neutrophils 85 (H) 41 - 77 % [facility] Lymphocytes 7 (L) 24 - 44 % [facility] Monocytes 8 4 - 12 % MAIN LAB Eosinophils 0 0 - 5 % [facility] Basophils 0 0 - 2 % MAIN LAB Absolute Neutrophil Count 18.40 (H) 1.8 - 7.0 K/UL [facility] Absolute Lymph Count 1.50 1.0 - 4.8 K/UL [facility] Absolute Monocyte Count 1.70 (H) 0 - 0.80 K/[facility] MAIN [facility] Absolute Eosinophil Count 0.10 0 - 0.45 K/UL [facility] Absolute Basophil Count 0.00 0 - 0.20 K/[facility] MAIN [facility] Specimen Blood Performing Organization Address City/[facility] Corporationcode Phone Number MAIN LAB [address] [place] [address] * POC GLUCOSE (07/07/2018 9:26 PM) Glucose, POC 176 (H) 70 - 100 MG/DL [facility] Performing Organization Address City/[facility] Corporationcode Phone Number MAIN LAB [address] [place] [address] * POC GLUCOSE (07/07/2018 5:54 PM) Glucose, POC 111 (H) 70 - 100 MG/DL [facility] Performing Organization Address City/[facility] Corporationcode Phone Number MAIN LAB [address] [place] [address] * POC GLUCOSE (07/07/2018 11:30 AM) Glucose, POC 90 70 - 100 MG/DL [facility] Performing Organization Address [facility] Corporationcode Phone Number [facility] [address] [place] [address] * CBC AND DIFF (07/07/2018 8:00 AM) White Blood Cells 14.6 (H) 4.5 - 11.0 K/UL [facility] RBC 3.21 (L) 4.4 - 5.5 M/UL [facility] Hemoglobin 9.5 (L) 13.5 - 16.5 GM/DL [facility] Hematocrit 28.5 (L) 40 - 50 % [facility] MCV 88.7 80 - 100 FL [facility] MCH 29.6 26 - 34 PG [facility] MCHC 33.4 32.0 - 36.0 G/DL [facility] RDW 14.5 11 - 15 % [facility] Platelet Count 541 (H) 150 - 400 K/UL [facility] MPV 9.0 7 - 11 FL [facility] Neutrophils 74 41 - 77 % [facility] Lymphocytes 10 (L) 24 - 44 % [facility] Monocytes 13 (H) 4 - 12 % [facility] Eosinophils 2 0 - 5 % [facility] Basophils 1 0 - 2 % [facility] Absolute Neutrophil Count 10.90 (H) 1.8 - 7.0 K/UL [facility] Absolute Lymph Count 1.50 1.0 - 4.8 K/UL [facility] Absolute Monocyte Count 1.90 (H) 0 - 0.80 K/UL [facility] Absolute Eosinophil Count 0.20 0 - 0.45 K/UL [facility] Absolute Basophil Count 0.10 0 - 0.20 K/UL [facility] Specimen Blood Performing Organization Address City/[facility] Corporationcode Phone Number [facility] [address] [place] [address] * POC GLUCOSE (07/07/2018 7:49 AM) Glucose, POC 182 (H) 70 - 100 MG/DL [facility] Performing Organization Address City/[facility] Corporationcode Phone Number [facility] [address] [place] [address] * COMPREHENSIVE METABOLIC PANEL (07/07/2018 5:45 AM) Sodium 138 137 - 147 MMOL/L [facility] Potassium 3.9 3.5 - 5.1 MMOL/L [facility] Chloride 104 98 - 110 MMOL/L [facility] Glucose 180 (H) 70 - 100 MG/DL [facility] Blood Urea Nitrogen 13 7 - 25 MG/DL [facility] Creatinine 1.20 0.4 - 1.24 MG/DL [facility] Calcium 8.3 (L) 8.5 - 10.6 MG/DL [facility] Total Protein 6.0 6.0 - 8.0 G/DL [facility] Total Bilirubin 0.6 0.3 - 1.2 MG/DL [facility] Albumin 3.1 (L) 3.5 - 5.0 G/DL [facility] Alk Phosphatase 120 (H) 25 - 110 U/L [facility] AST (SGOT) 20 7 - 40 U/L [facility] CO2 25 21 - 30 MMOL/L [facility] ALT (SGPT) 19 7 - 56 U/L [facility] [...] text.Please contact the Clinical Pharmacist for questions. Performing Organization Address City/State/Zipcode Phone Number MAIN LAB [address] [place] [address] * HEMOGLOBIN (07/07/2018 5:45 AM) Hemoglobin 9.5 (L) 13.5 - 16.5 GM/DL MAIN LAB Comment: Corrected on 07/09 AT 1021: previously reported as DUPLICATE ORDER, Corrected on 07/07 AT 0811: previously reported as 9.5 Specimen Blood Performing Organization Address City/[facility]/Zipcode Phone Number MAIN LAB [address] [place] [address] * HEMOGLOBIN (07/06/2018 10:45 PM) Hemoglobin 10.5 (L) 13.5 - 16.5 GM/DL MAIN LAB Specimen Blood Performing Organization Address City/[facility]/Zipcode Phone Number MAIN LAB [address] [place] [address] * OCCULT BLOOD NON COLON CANCER SCREEN (07/06/2018 10:45 PM) Battery Name OCCULT BLOOD SCREEN MAIN LAB Specimen Description FECES MAIN LAB Special Requests NONE MAIN LAB Occult Blood NEGATIVE MAIN LAB Report Status FINAL MAIN LAB 07/06/2018 Specimen Stool - Feces Performing Organization Address City/State/Zipcode Phone Number MAIN LAB [address] [place] [address] * POC GLUCOSE (07/06/2018 9:04 PM) Glucose, POC 115 (H) 70 - 100 MG/DL MAIN LAB Performing Organization Address City/[facility]/Zipcode Phone Number MAIN LAB [address] [place] [address] * POC GLUCOSE (07/06/2018 5:11 PM) Glucose, POC 150 (H) 70 - 100 MG/DL MAIN LAB Performing Organization Address City/[facility]/Zipcode Phone Number MAIN LAB [address] [place] [address] * POC GLUCOSE (07/06/2018 2:36 PM) Glucose, POC 196 (H) 70 - 100 MG/DL MAIN LAB Performing Organization Address City/[facility]/Zipcode Phone Number MAIN LAB [address] [place] [address] * HEMOGLOBIN (07/06/2018 1:31 PM) Hemoglobin 8.9 (L) 13.5 - 16.5 GM/DL MAIN LAB Specimen Blood Performing Organization Address City/[facility]/Zipcode Phone Number MAIN LAB [address] [place] [address] * POC GLUCOSE (07/06/2018 11:49 AM) Glucose, POC 153 (H) 70 - 100 MG/DL MAIN LAB Performing Organization Address City/[facility]/Zipcode Phone Number MAIN LAB [address] [place] [address] * POC GLUCOSE (07/06/2018 7:29 AM) Glucose, POC 130 (H) 70 - 100 MG/DL [facility] Performing Organization Address City/[facility]/Zipcode Phone Number MAIN LAB [address] [place] [address] * HEMOGLOBIN (07/06/2018 4:27 AM) Hemoglobin 9.1 (L) 13.5 - 16.5 GM/DL [facility] Specimen Blood Performing Organization Address City/[facility] Corporationcode Phone Number [facility] [address] [place] [address] * CBC (07/06/2018 4:27 AM) White Blood Cells 11.3 (H) 4.5 - 11.0 K/UL [facility] RBC 3.05 (L) 4.4 - 5.5 M/UL [facility] Hemoglobin 9.3 (L) 13.5 - 16.5 GM/DL [facility] Hematocrit 27.1 (L) 40 - 50 % [facility] MCV 88.8 80 - 100 FL [facility] MCH 30.5 26 - 34 PG [facility] MCHC 34.4 32.0 - 36.0 G/DL [facility] RDW 14.2 11 - 15 % [facility] Platelet Count 487 (H) 150 - 400 K/UL [facility] MPV 8.6 7 - 11 FL [facility] Specimen Blood Performing Organization Address [facility] Corporationco[facility] Phone Number [facility] [address] [place] [address] * BASIC METABOLIC PANEL (07/06/2018 4:27 AM) Sodium 138 137 - 147 MMOL/L K[facility] [...] for questions. Specimen Blood Performing Organization Address City/State/Zipcode Phone Number [facility] [address] [place] [address] * POC GLUCOSE (07/06/2018 2:35 AM) Glucose, POC 132 (H) 70 - 100 MG/DL [facility] Performing Organization Address City/[facility] Corporationcode Phone Number [facility] [address] [place] [address] * POC GLUCOSE (07/05/2018 10:09 PM) Glucose, POC 89 70 - 100 MG/DL [facility] Performing Organization Address City/[facility]/Zipcode Phone Number [facility] [address] [place] [address] * HEMOGLOBIN (07/05/2018 9:40 PM) Hemoglobin 10.1 (L) 13.5 - 16.5 GM/DL [facility] Specimen Blood Performing Organization Address City/[facility] Corporationcode Phone Number [facility] [address] [place] [address] * POC GLUCOSE (07/05/2018 9:37 PM) Glucose, POC 77 70 - 100 MG/DL [facility] Performing Organization Address [facility]code Phone Number [facility] [address] [place] [address] * POC GLUCOSE (07/05/2018 8:15 PM) Glucose, POC 81 70 - 100 MG/DL [facility] Performing Organization Address [facility] Corporationcode Phone Number MAIN LAB [address] [place] [address] * CULTURE-URINE W/SENSITIVITY (07/05/2018 6:45 PM) Battery Name URINE CULTURE [facility] Specimen Description URINE [facility] Special Requests NONE [facility] Culture NO GROWTH [facility] Report Status FINAL [facility] 07/06/2018 Specimen Urine Performing Organization Address City/[facility] Corporationcode Phone Number [facility] [address] [place] [address] * URINALYSIS MICROSCOPIC REFLEX TO CULTURE (07/05/2018 6:45 PM) WBCs,UA 2-10 0 - 2 /HPF [facility] RBCs,UA 10-20 0 - 3 /HPF [facility] Comment,UA Urine submitted for reflex [facility] culture if criteria are met:WBC>10, positive nitrite and/or >=1+ leukocyte esterase. If quantity is not sufficient, an addendum will follow. MucousUA 1+ [facility] Squamous Epithelial Cells 0-2 0 - 5 [facility] Specimen Urine Performing Organization Address [facility] Corporation[facility] Phone Number [facility] [address] [place] [address] * URINALYSIS DIPSTICK REFLEX TO CULTURE (07/05/2018 6:45 PM) Color,UA YELLOW [facility] Turbidity,UA 2+ (A) CLEAR-CLEAR [facility] Specific Rye-Urine 1.017 1.003 - 1.035 [facility] pH,UA 5.0 5.0 - 8.0 [facility] Protein,UA 2+ (A) NEG-NEG [facility] Glucose,UA 1+ (A) NEG-NEG [facility] Ketones,UA NEG NEG-NEG [facility] Bilirubin,UA NEG NEG-NEG [facility] Blood,UA NEG NEG-NEG [facility] Urobilinogen,UA NORMAL NORM-NORMAL [facility] Nitrite,UA NEG NEG-NEG [facility] Leukocytes,UA 1+ (A) NEG-NEG [facility] Urine Ascorbic Acid, UA NEG NEG-NEG [facility] Specimen Urine Performing Organization Address [facility] Phone Number [facility] [address] [place] [address] * POC GLUCOSE (07/05/2018 4:37 PM) Glucose, POC 79 70 - 100 MG/DL [facility] Performing Organization Address [facility]code Phone Number [facility] [address] [place] [address] * POC GLUCOSE (07/05/2018 2:02 PM) Glucose, POC 92 70 - 100 MG/DL [facility] Performing Organization Address [facility] Phone Number [facility] [address] [place] [address] * HEMOGLOBIN (07/05/2018 2:00 PM) Hemoglobin 9.6 (L) 13.5 - 16.5 GM/DL [facility] Specimen Blood Performing Organization Address [facility]code Phone Number [facility] [address] [place] [address] * POC GLUCOSE (07/05/2018 11:32 AM) Glucose, POC 102 (H) 70 - 100 MG/DL [facility] Performing Organization Address [facility] Phone Number [facility] [address] [place] [address] * ABDOMEN AP ONLY (07/05/2018 9:20 AM) Impressions Performed At Interval removal of previously [...] on 07/05/2018 10:21 AM. Performing Organization Address [facility]code Phone Number [facility] RAD RESULTS * POC GLUCOSE (07/05/2018 6:56 AM) Glucose, POC 139 (H) 70 - 100 MG/DL [facility] Performing Organization Address [facility] Phone Number [facility] [address] [place] [address] * CBC (07/05/2018 5:50 AM) White Blood Cells 12.4 (H) 4.5 - 11.0 K/UL [facility] RBC 3.21 (L) 4.4 - 5.5 M/UL [facility] Hemoglobin 9.5 (L) 13.5 - 16.5 GM/DL [facility] Hematocrit 27.9 (L) 40 - 50 % [facility] MCV 86.9 80 - 100 FL [facility] MCH 29.6 26 - 34 PG [facility] MCHC 34.1 32.0 - 36.0 G/DL [facility] RDW 14.0 11 - 15 % [facility] Platelet Count 413 (H) 150 - 400 K/UL [facility] MPV 8.7 7 - 11 FL [facility] Specimen Blood Performing Organization Address [facility] Phone Number MAIN LAB [address] [place] [phone] * POC GLUCOSE (07/05/2018 5:29 AM) Glucose, POC 125 (H) 70 - 100 MG/DL MAIN LAB Performing Organization Address City/[facility] Phone Number MAIN LAB [address] [place] [address] * BASIC METABOLIC PANEL (07/05/2018 5:25 AM) Sodium 137 137 - 147 MMOL/L [facility] Potassium 3.3 (L) 3.5 - 5.1 MMOL/L [facility] Chloride 104 98 - 110 MMOL/L [facility] CO2 25 21 - 30 MMOL/L [facility] Anion Gap 8 3 - 12 [facility] Glucose 131 (H) 70 - 100 MG/DL [facility] Blood Urea Nitrogen 7 7 - 25 MG/DL [facility] Creatinine 0.97 0.4 - 1.24 MG/DL [facility] [...] for questions. Specimen Blood Performing Organization Address City/State/Zipcode Phone Number [facility] [address] [place] [address] * POC GLUCOSE (07/05/2018 2:37 AM) Glucose, POC 103 (H) 70 - 100 MG/DL [facility] Performing Organization Address City/[facility] Phone Number [facility] [address] [place] [address] * POC GLUCOSE (07/05/2018 1:31 AM) Glucose, POC 94 70 - 100 MG/DL [facility] Performing Organization Address City/[facility] Phone Number MAIN LAB [address] [place] [address] * POC GLUCOSE (07/05/2018 12:41 AM) Glucose, POC 121 (H) 70 - 100 MG/DL [facility] Performing Organization Address City/[facility] Phone Number [facility] [address] [place] [address] * POC GLUCOSE (07/04/2018 11:19 PM) Glucose, POC 84 70 - 100 MG/DL [facility] Performing Organization Address [facility] Phone Number MAIN LAB [address] [place] [address] * HEMOGLOBIN (07/04/2018 9:30 PM) Hemoglobin 13.5 13.5 - 16.5 GM/DL [facility] Specimen Blood Performing Organization Address City/[facility] Phone Number [facility] [address] [place] [address] * POC GLUCOSE (07/04/2018 9:15 PM) Glucose, POC 105 (H) 70 - 100 MG/DL [facility] Performing Organization Address City/[facility] Phone Number [facility] [address] [place] [address] * POC GLUCOSE (07/04/2018 7:50 PM) Glucose, POC 164 (H) 70 - 100 MG/DL [facility] Performing Organization Address City/State/Zipcode Phone Number [facility] [address] [place] [address] * POC GLUCOSE (07/04/2018 7:23 PM) Glucose, POC 44 (LL) 70 - 100 MG/DL [facility] Performing Organization Address City/State/Zipcode Phone Number [facility] [address] [place] [address] * POC GLUCOSE (07/04/2018 5:10 PM) Glucose, POC 96 70 - 100 MG/DL [facility] Performing Organization Address City/State/Zipcode Phone Number [facility] [address] [place] [address] * IRON + BINDING CAPACITY + %SAT+ FERRITIN (07/04/2018 2:20 PM) Iron 49 (L) 50 - 185 MCG/DL [facility] Iron Binding-TIBC 212 (L) 270 - 380 MCG/DL [facility] % Saturation 23 (L) 28 - 42 % [facility] Ferritin 383 (H) 30 - 300 NG/ML [facility] Specimen Blood Performing Organization Address City/State/Zipcode Phone Number [facility] [address] [place] [address] * POC GLUCOSE (07/04/2018 2:19 PM) Glucose, POC 137 (H) 70 - 100 MG/DL [facility] Performing Organization Address City/[facility]/Zipcode Phone Number [facility] [address] [place] [address] * POC GLUCOSE (07/04/2018 1:42 PM) Glucose, POC 114 (H) 70 - 100 MG/DL [facility] Performing Organization Address City/State/Zipcode Phone Number [facility] [address] [place] [address] * POC GLUCOSE (07/04/2018 1:16 PM) Glucose, POC 55 (L) 70 - 100 MG/DL [facility] Performing Organization Address City/State/Zipcode Phone Number [facility] [address] [place] [address] * HEMOGLOBIN (07/04/2018 1:15 PM) Hemoglobin 9.4 (L) 13.5 - 16.5 GM/DL [facility] Specimen Blood Performing Organization Address City/State/Zipcode Phone Number MAIN LAB [address] [place] [address] * POC GLUCOSE (07/04/2018 12:52 PM) Glucose, POC 66 (L) 70 - 100 MG/DL [facility] Performing Organization Address City/[facility]/Zipcode Phone Number MAIN [facility] [address] [place] [address] * POC GLUCOSE (07/04/2018 12:19 PM) Glucose, POC 66 (L) 70 - 100 MG/DL [facility] Performing Organization Address City/[facility]/Zipcode Phone Number MAIN LAB [address] [place] [address] * POC GLUCOSE (07/04/2018 12:17 PM) Glucose, POC 59 (L) 70 - 100 MG/DL [facility] Performing Organization Address City/[facility]/Zipcode Phone Number MAIN LAB [address] [place] [address] * POC GLUCOSE (07/04/2018 10:28 AM) Glucose, POC 144 (H) 70 - 100 MG/DL [facility] Performing Organization Address City/[facility] Phone Number [facility] [address] [place] [address] * POC GLUCOSE (07/04/2018 9:31 AM) Glucose, POC 197 (H) 70 - 100 MG/DL [facility] Performing Organization Address City/[facility] Phone Number [facility] [address] [place] [address] * POC GLUCOSE (07/04/2018 8:38 AM) Glucose, POC 184 (H) 70 - 100 MG/DL [facility] Performing Organization Address City/[facility]/Zipcode Phone Number MAIN [facility] [address] [place] [address] * POC GLUCOSE (07/04/2018 7:29 AM) Glucose, POC 150 (H) 70 - 100 MG/DL [facility] Performing Organization Address City/[facility]/Zipcode Phone Number MAIN [facility] [address] [place] [address] * POC GLUCOSE (07/04/2018 6:31 AM) Glucose, POC 119 (H) 70 - 100 MG/DL [facility] Performing Organization Address City/[facility] Phone Number [facility] [address] [place] [address] * CBC (07/04/2018 5:47 AM) White Blood Cells 12.9 (H) 4.5 - 11.0 K/UL [facility] RBC 2.93 (L) 4.4 - 5.5 M/UL [facility] Hemoglobin 8.6 (L) 13.5 - 16.5 GM/DL [facility] Hematocrit 26.3 (L) 40 - 50 % [facility] MCV 89.9 80 - 100 FL [facility] MCH 29.3 26 - 34 PG [facility] MCHC 32.6 32.0 - 36.0 G/DL [facility] RDW 13.9 11 - 15 % [facility] Platelet Count 357 150 - 400 K/UL [facility] MPV 8.9 7 - 11 FL [facility] Specimen Blood Performing Organization Address City/[facility] Phone Number [facility] [address] [place] [address] * BASIC METABOLIC PANEL (07/04/2018 5:47 AM) Sodium 139 137 - 147 MMOL/L [facility] Potassium 3.7 3.5 - 5.1 MMOL/L [facility] Chloride 106 98 - 110 MMOL/L [facility] CO2 25 21 - 30 MMOL/L [facility] Anion Gap 8 3 - 12 [facility] Glucose 126 (H) 70 - 100 MG/DL [facility] Blood Urea Nitrogen 9 7 - 25 MG/DL [facility] Creatinine 1.07 0.4 - 1.24 MG/DL [facility] Calcium 8.8 8.5 - 10.6 MG/DL [facility] [...] for questions. Specimen Blood Performing Organization Address City/State/Zipcode Phone Number MAIN LAB [address] [place] [address] * POC GLUCOSE (07/04/2018 5:36 AM) Glucose, POC 126 (H) 70 - 100 MG/DL [facility] Performing Organization Address City/[facility] Phone Number [facility] [address] [place] [address] * POC GLUCOSE (07/04/2018 4:36 AM) Glucose, POC 94 70 - 100 MG/DL [facility] Performing Organization Address City/[facility]/Zipcode Phone Number MAIN LAB [address] [place] [address] * POC GLUCOSE (07/04/2018 3:24 AM) Glucose, POC 120 (H) 70 - 100 MG/DL [facility] Performing Organization Address City/[facility] Phone Number MA[facility] [address] [place] [address] * POC GLUCOSE (07/04/2018 2:14 AM) Glucose, POC 112 (H) 70 - 100 MG/DL [facility] Performing Organization Address City/[facility] Phone Number MA[facility] [address] [place] [address] * POC GLUCOSE (07/04/2018 12:37 AM) Glucose, POC 126 (H) 70 - 100 MG/DL [facility] Performing Organization Address [facility] Phone Number MAIN [facility] [address] [place] [address] * BLOOD TYPE CONFIRMATION - ORDER ONLY IF REQUESTED BY LAB (07/04/2018 12:13 AM) ABO/RH(D) O NEG MAIN LAB Specimen Blood Performing Organization Address City/[facility] Phone Number MA[facility] [address] [place] [address] * TYPE & CROSSMATCH (07/03/2018 11:48 PM) Units Ordered 1 [facility] Crossmatch Expires 07/06/2018 MAIN LAB Record Check 2ND TYPE REQUIRED [facility]IN LAB ABO/RH(D) O NEG MAIN LAB Antibody Screen NEG MAIN LAB Electronic Crossmatch YES [facility] Unit Number [id number] MAIN LAB Blood Component Type RBC,CPDA,LEUKO REDUCED [facility] Unit Division 0 MAIN LAB Status OF Unit TRANSFUSED MAIN LAB Transfusion Status OK TO TRANSFUSE [facility] Crossmatch Result COMPATIBLE,ELECTRONIC MAIN LAB Specimen Blood Performing Organization Address City/[facility]/Zipcode Phone Number MAIN [facility] [address] [place] [address] * POC GLUCOSE (07/03/2018 11:21 PM) Glucose, POC 197 (H) 70 - 100 MG/DL [facility] Performing Organization Address City/[facility]/Zipcode Phone Number MAIN [facility] [address] [place] [address] * POC GLUCOSE (07/03/2018 10:12 PM) Glucose, POC 218 (H) 70 - 100 MG/DL [facility] Performing Organization Address City/[facility]/Zipcode Phone Number MAIN [facility] [address] [place] [address] * HEMOGLOBIN (07/03/2018 10:02 PM) Hemoglobin 6.8 (L) 13.5 - 16.5 GM/DL MAIN [facility] Specimen Blood Performing Organization Address City/[facility] Phone Number [facility] [address] [place] [address] * POC GLUCOSE (07/03/2018 9:19 PM) Glucose, POC 187 (H) 70 - 100 MG/DL [facility] Performing Organization Address City/[facility] Phone Number [facility] [address] [place] [address] * POC GLUCOSE (07/03/2018 7:40 PM) Glucose, POC 113 (H) 70 - 100 MG/DL [facility] Performing Organization Address City/[facility]/Zipcode Phone Number MAIN [facility] [address] [place] [address] * POC GLUCOSE (07/03/2018 6:37 PM) Glucose, POC 143 (H) 70 - 100 MG/DL [facility] Performing Organization Address City/[facility]/Zipcode Phone Number MAIN [facility] [address] [place] [address] * POC GLUCOSE (07/03/2018 5:31 PM) Glucose, POC 157 (H) 70 - 100 MG/DL [facility] Performing Organization Address City/State/Zipcode Phone Number MAIN [facility] [address] [place] [address] * POC GLUCOSE (07/03/2018 4:35 PM) Glucose, POC 190 (H) 70 - 100 MG/DL [facility] Performing Organization Address City/State/Zipcode Phone Number MAIN [facility] [address] [place] [address] * POC GLUCOSE (07/03/2018 3:36 PM) Glucose, POC 190 (H) 70 - 100 MG/DL [facility] Performing Organization Address City/State/Zipcode Phone Number MAIN [facility] [address] [place] [address] * HEMOGLOBIN (07/03/2018 3:25 PM) Hemoglobin 7.2 (L) 13.5 - 16.5 GM/DL [facility] Specimen Blood Performing Organization Address City/State/Zipcode Phone Number MAIN [facility] [address] [place] [address] * POC GLUCOSE (07/03/2018 2:22 PM) Glucose, POC 176 (H) 70 - 100 MG/DL [facility] Performing Organization Address City/[facility]/Zipcode Phone Number MAIN [facility] [address] [place] [address] * POC GLUCOSE (07/03/2018 1:24 PM) Glucose, POC 254 (H) 70 - 100 MG/DL [facility] Performing Organization Address City/State/Zipcode Phone Number MAIN LAB [address] [place] [address] * POC GLUCOSE (07/03/2018 12:20 PM) Glucose, POC 307 (H) 70 - 100 MG/DL [facility] Performing Organization Address City/State/Zipcode Phone Number MAIN LAB [address] [place] [address] * POC GLUCOSE (07/03/2018 10:45 AM) Glucose, POC 268 (H) 70 - 100 MG/DL [facility] Performing Organization Address [facility] Phone Number [facility] [address] [place] [address] * POC GLUCOSE (07/03/2018 9:22 AM) Glucose, POC 233 (H) 70 - 100 MG/DL [facility] Performing Organization Address [facility] Phone Number [facility] [address] [place] [address] * SWALLOW MOTION SERIES (07/03/2018 8:59 AM) [...] on 07/03/2018 9:08 AM. Performing Organization Address City/[facility] Phone Number [facility] RESULTS * POC GLUCOSE (07/03/2018 8:04 AM) Glucose, POC 156 (H) 70 - 100 MG/DL MAIN LAB Performing Organization Address [facility] Phone Number MAIN LAB [address] [place] [id number] * ECG-SCAN (07/03/2018 7:35 AM) Narrative Performed At Ordered by an unspecified provider. * POC GLUCOSE (07/03/2018 5:03 AM) Glucose, POC 109 (H) 70 - 100 MG/DL MAIN LAB Performing Organization Address [facility] Phone Number MAIN [facility] [address] [place] [address] * CBC (07/03/2018 4:11 AM) White Blood Cells 13.4 (H) 4.5 - 11.0 K/UL MAIN [facility] RBC 2.57 (L) 4.4 - 5.5 M/UL MAIN LAB Hemoglobin 7.6 (L) 13.5 - 16.5 GM/DL MAIN LAB Hematocrit 22.7 (L) 40 - 50 % [facility]IN LAB MCV 88.3 80 - 100 FL [facility]IN LAB MCH 29.5 26 - 34 PG [facility]IN LAB MCHC 33.4 32.0 - 36.0 G/DL [facility]IN LAB RDW 14.1 11 - 15 % MAIN LAB Platelet Count 395 150 - 400 K/UL MAIN LAB MPV 8.7 7 - 11 FL MAIN LAB Specimen Blood Performing Organization Address City/[facility]/Zipcode Phone Number MAIN LAB [address] [place] [address] * BASIC METABOLIC PANEL (07/03/2018 4:11 AM) Sodium 140 137 - 147 MMOL/L [facility] Potassium 3.5 3.5 - 5.1 MMOL/L [facility] Chloride 110 98 - 110 MMOL/L [facility] CO2 21 21 - 30 MMOL/L [facility] Anion Gap 9 3 - 12 [facility] Glucose 135 (H) 70 - 100 MG/DL [facility] Blood Urea Nitrogen 11 7 - 25 MG/DL [facility] Creatinine 1.11 0.4 - 1.24 MG/DL [facility] Calcium 8.8 8.5 - 10.6 MG/DL [facility] [...] for questions. Specimen Blood Performing Organization Address City/[facility]/Zipcode Phone Number MAIN [facility] [address] [place] [address] * POC GLUCOSE (07/03/2018 3:57 AM) Glucose, POC 132 (H) 70 - 100 MG/DL [facility] Performing Organization Address City/[facility]/Zipcode Phone Number MAIN [facility] [address] [place] [address] * POC GLUCOSE (07/03/2018 3:06 AM) Glucose, POC 145 (H) 70 - 100 MG/DL [facility] Performing Organization Address City/State/Zipcode Phone Number MAIN [facility] [address] [place] [address] * POC GLUCOSE (07/03/2018 2:01 AM) Glucose, POC 154 (H) 70 - 100 MG/DL [facility] Performing Organization Address City/[facility]/Zipcode Phone Number MAIN [facility] [address] [place] [address] * POC GLUCOSE (07/03/2018 1:05 AM) Glucose, POC 112 (H) 70 - 100 MG/DL [facility] Performing Organization Address City/State/Zipcode Phone Number MAIN [facility] [address] [place] [address] * POC GLUCOSE (07/03/2018 12:35 AM) Glucose, POC 98 70 - 100 MG/DL [facility] Performing Organization Address City/[facility]/Zipcode Phone Number MAIN [facility] [address] [place] [address] * POC GLUCOSE (07/03/2018 12:13 AM) Glucose, POC 78 70 - 100 MG/DL [facility] Performing Organization Address City/[facility]/Zipcode Phone Number MAIN [facility] [address] [place] [address] * POC GLUCOSE (07/02/2018 11:03 PM) Glucose, POC 102 (H) 70 - 100 MG/DL [facility] Performing Organization Address City/[facility]/Zipcode Phone Number MAIN [facility] [address] [place] [address] * POC GLUCOSE (07/02/2018 9:56 PM) Glucose, POC 184 (H) 70 - 100 MG/DL [facility] Performing Organization Address City/[facility] Phone Number [facility] [address] [place] [address] * POC GLUCOSE (07/02/2018 9:36 PM) Glucose, POC 49 (LL) 70 - 100 MG/DL [facility] Performing Organization Address City/[facility]/Zipcode Phone Number MAIN [facility] [address] [place] [address] * POC GLUCOSE (07/02/2018 9:32 PM) Glucose, POC 50 (L) 70 - 100 MG/DL [facility] Performing Organization Address City/[facility]/Zipcode Phone Number MAIN [facility] [address] [place] [address] * POC GLUCOSE (07/02/2018 9:13 PM) Glucose, POC 59 (L) 70 - 100 MG/DL [facility] Performing Organization Address City/State/Zipcode Phone Number MAIN [facility] [address] [place] [address] * POC GLUCOSE (07/02/2018 9:11 PM) Glucose, POC 58 (L) 70 - 100 MG/DL [facility] Performing Organization Address City/State/Zipcode Phone Number MAIN [facility] [address] [place] [address] * POC GLUCOSE (07/02/2018 7:58 PM) Glucose, POC 121 (H) 70 - 100 MG/DL [facility] Performing Organization Address City/State/Zipcode Phone Number MAIN [facility] [address] [place] [address] * POC GLUCOSE (07/02/2018 6:56 PM) Glucose, POC 162 (H) 70 - 100 MG/DL [facility] Performing Organization Address City/State/Zipcode Phone Number MAIN [facility] [address] [place] [address] * POC GLUCOSE (07/02/2018 6:07 PM) Glucose, POC 180 (H) 70 - 100 MG/DL MAIN LAB Performing Organization Address City/State/Zipcode Phone Number MAIN [facility] [address] [place] [address] * POC GLUCOSE (07/02/2018 4:52 PM) Glucose, POC 195 (H) 70 - 100 MG/DL [facility] Performing Organization Address City/State/Zipcode Phone Number MAIN [facility] [address] [place] [address] * POC GLUCOSE (07/02/2018 4:24 PM) Glucose, POC 204 (H) 70 - 100 MG/DL [facility] Performing Organization Address City/State/Zipcode Phone Number MAIN LAB [address] [place] [address] * POC GLUCOSE (07/02/2018 3:09 PM) Glucose, POC 212 (H) 70 - 100 MG/DL [facility] Performing Organization Address City/State/Zipcode Phone Number MAIN [facility] [address] [place] [address] * POC GLUCOSE (07/02/2018 2:13 PM) Glucose, POC 204 (H) 70 - 100 MG/DL [facility] Performing Organization Address [facility] Phone Number [facility] [address] [place] [address] * POC GLUCOSE (07/02/2018 12:59 PM) Glucose, POC 235 (H) 70 - 100 MG/DL [facility] Performing Organization Address [facility] Phone Number [facility] [address] [place] [address] * POC GLUCOSE (07/02/2018 12:02 PM) Glucose, POC 244 (H) 70 - 100 MG/DL [facility] Performing Organization Address [facility] Phone Number [facility] [address] [place] [address] * POC GLUCOSE (07/02/2018 11:10 AM) Glucose, POC 229 (H) 70 - 100 MG/DL [facility] Performing Organization Address [facility] Phone Number MAIN LAB [address] [place] [address] * ABDOMEN AP ONLY (07/02/2018 10:20 AM) Impressions Performed At Indwelling enteric catheter. [facility] RESULTS Approved by Robby Devi M.D. on 07/02/2018 11:09 AM By my electronic signature, I attest that I have personally reviewed the images for this examination and formulated the interpretations and opinions expressed in this report Finalized by Uriah Domingo D.O. on 07/02/2018 11:21 AM. Dictated by Robby Devi M.D. on 07/02/2018 11:09 AM. Narrative Performed At ABDOMEN AP ONLY [facility] RESULTS Clinical Indication: Feeding tube placement Comparison: None Findings: Nasoenteric catheter with the tip overlying the region of the gastric outlet. The visualized bowel loops are nondistended. Procedure Note Interface, Radiant Results - 07/02/2018 11:24 AM CDT ABDOMEN AP ONLY Clinical Indication: Feeding tube placement Comparison: None Findings: Nasoenteric catheter with the tip overlying the region of the gastric outlet. The visualized bowel loops are nondistended. IMPRESSION Indwelling enteric catheter. Approved by Robby Devi M.D. on 07/02/2018 11:09 AM By my electronic signature, I attest that I have personally reviewed the images for this examination and formulated the interpretations and opinions expressed in this report Finalized by Uriah Domingo D.O. on 07/02/2018 11:21 AM. Dictated by Robby Devi M.D. on 07/02/2018 11:09 AM. Performing Organization Address City/[facility]/Zipcode Phone Number RAD RESULTS * POC GLUCOSE (07/02/2018 10:14 AM) Glucose, POC 212 (H) 70 - 100 MG/DL MAIN LAB Performing Organization Address City/[facility] Phone Number MAIN [facility] [address] [place] [address] * POC GLUCOSE (07/02/2018 9:22 AM) Glucose, POC 209 (H) 70 - 100 MG/DL [facility] Performing Organization Address [facility] Phone Number MAIN LAB [address] [place] [address] * POC GLUCOSE (07/02/2018 8:04 AM) Glucose, POC 186 (H) 70 - 100 MG/DL [facility] Performing Organization Address [facility] Phone Number MA[facility] [address] [place] [address] * POC GLUCOSE (07/02/2018 6:05 AM) Glucose, POC 142 (H) 70 - 100 MG/DL MAIN LAB Performing Organization Address [facility] Phone Number MAIN LAB [address] [place] [address] * POC GLUCOSE (07/02/2018 5:00 AM) Glucose, POC 125 (H) 70 - 100 MG/DL MAIN LAB Performing Organization Address [facility] Phone Number MAIN [facility] [address] [place] [address] * PHOSPHORUS (07/02/2018 4:15 AM) Phosphorus 2.6 2.0 - 4.0 MG/DL [facility] Specimen Blood Performing Organization Address [facility] Phone Number MAIN [facility] [address] [place] [address] * MAGNESIUM (07/02/2018 4:15 AM) Magnesium 1.9 1.6 - 2.6 mg/dL [facility] Specimen Blood Performing Organization Address City/[facility]/Zipcode Phone Number MAIN LAB [address] [place] [address] * IONIZED CALCIUM (07/02/2018 4:15 AM) Ionized Calcium 1.14 1.0 - 1.3 MMOL/L MAIN LAB Specimen Blood Performing Organization Address City/[facility]/Zipcode Phone Number MAIN LAB [address] [place] [address] * CULTURE-BLOOD W/SENSITIVITY (07/02/2018 4:15 AM) Battery Name BLOOD CULTURE [facility] Specimen Description BLOOD MAIN LAB RIGHT RADIAL ARTERIAL Special Requests NONE MAIN LAB Culture NO GROWTH 5 DAYS MAIN LAB Report Status FINAL MAIN LAB 07/08/2018 Specimen Blood Performing Organization Address [facility] Phone Number MAIN LAB [address] [place] [address] * CBC (07/02/2018 4:15 AM) White Blood Cells 10.3 4.5 - 11.0 K/UL [facility] RBC 3.17 (L) 4.4 - 5.5 M/UL MAIN LAB Hemoglobin 8.8 (L) 13.5 - 16.5 GM/DL MAIN LAB Hematocrit 28.2 (L) 40 - 50 % [facility] MCV 88.8 80 - 100 FL [facility] MCH 27.8 26 - 34 PG MAIN LAB MCHC 31.3 (L) 32.0 - 36.0 G/DL MAIN LAB RDW 14.0 11 - 15 % [facility] Platelet Count 401 (H) 150 - 400 K/UL MAIN LAB MPV 8.9 7 - 11 FL MAIN LAB Specimen Blood Performing Organization Address City/[facility]/Zipcode Phone Number MAIN LAB [address] [place] [address] * BASIC METABOLIC PANEL (07/02/2018 4:15 AM) Sodium 140 137 - 147 MMOL/L [facility] Potassium 4.2 3.5 - 5.1 MMOL/L [facility] Chloride 113 (H) 98 - 110 MMOL/L MAIN LAB CO2 20 (L) 21 - 30 MMOL/L [facility] Anion Gap 7 3 - 12 [facility] Glucose 127 (H) 70 - 100 MG/DL [facility] Blood Urea Nitrogen 12 7 - 25 MG/DL [facility] Creatinine 0.88 0.4 - 1.24 MG/DL [facility] [...] for questions. Specimen Blood Performing Organization Address City/State/Zipcode Phone Number MAIN LAB [address] [place] [address] * POC GLUCOSE (07/02/2018 4:00 AM) Glucose, POC 129 (H) 70 - 100 MG/DL [facility] Performing Organization Address City/[facility] Phone Number [facility] [address] [place] [address] * POC GLUCOSE (07/02/2018 3:06 AM) Glucose, POC 116 (H) 70 - 100 MG/DL [facility] Performing Organization Address City/[facility]/[place] Phone Number [facility] [address] [place] [address] * POC GLUCOSE (07/02/2018 2:02 AM) Glucose, POC 113 (H) 70 - 100 MG/DL [facility] Performing Organization Address City/[facility] Phone Number [facility] [address] [place] [address] * POC GLUCOSE (07/02/2018 1:12 AM) Glucose, POC 147 (H) 70 - 100 MG/DL [facility] Performing Organization Address City/[facility] Phone Number [facility] [address] [place] [address] * POC GLUCOSE (07/02/2018 12:05 AM) Glucose, POC 155 (H) 70 - 100 MG/DL [facility] Performing Organization Address City/[facility]/Zipcode Phone Number MAIN LAB [address] [place] [address] * POC GLUCOSE (07/01/2018 11:03 PM) Glucose, POC 128 (H) 70 - 100 MG/DL [facility] Performing Organization Address [facility] Phone Number MAIN LAB [address] [place] [address] * POC GLUCOSE (07/01/2018 10:07 PM) Glucose, POC 208 (H) 70 - 100 MG/DL [facility] Performing Organization Address City/[facility] Phone Number MAIN LAB [address] [place] [address] * POC GLUCOSE (07/01/2018 9:18 PM) Glucose, POC 184 (H) 70 - 100 MG/DL [facility] Performing Organization Address [facility] Phone Number MAIN LAB [address] [place] [address] * MRI HEAD WO CONTRAST (07/01/2018 9:10 [...] the posterior medial left temporal lobe. 3. Denominational of flow void within the right M1 [...] changes. Major vascular flow voids of the apache of Tse and dural venous sinuses are preserved. There is caodaism of flow void in the right M1 [...] changes. Major vascular flow voids of the apache of Tse and dural venous sinuses are preserved. There is caodaism of flow void in the right M1 [...] the posterior medial left temporal lobe. 3. Denominational of flow void within the right M1 segment, previously noted to be occluded. Performing Organization Address City/State/Zipcode Phone Number [facility] RESULTS * POC GLUCOSE (07/01/2018 8:07 PM) Glucose, POC 184 (H) 70 - 100 MG/DL [facility] Performing Organization Address [facility] Phone Number [facility] [address] [place] [address] * POC GLUCOSE (07/01/2018 6:59 PM) Glucose, POC 190 (H) 70 - 100 MG/DL [facility] Performing Organization Address [facility] Phone Number [facility] [address] [place] [address] * POC GLUCOSE (07/01/2018 6:03 PM) Glucose, POC 169 (H) 70 - 100 MG/DL [facility] Performing Organization Address [facility] Phone Number MA[facility] [address] [place] [address] * POC GLUCOSE (07/01/2018 5:10 PM) Glucose, POC 154 (H) 70 - 100 MG/DL [facility] Performing Organization Address [facility] [facility] Phone Number MAIN LAB [address] [place] [address] * POC GLUCOSE (07/01/2018 4:04 PM) Glucose, POC 195 (H) 70 - 100 MG/DL [facility] MAIN LAB Performing Organization Address [facility] Phone Number MAIN LAB [address] [place] [address] * BLOOD GASES, ARTERIAL (07/01/2018 3:06 PM) pH-Arterial 7.34 (L) 7.35 - 7.45 MAIN LAB pCO2-Arterial 39 35 - 45 MMHG [facility] MAIN LAB pO2-Arterial 102 (H) 80 - 100 MMHG [facility] MAIN LAB Base Deficit-Arterial 4.6 MMOL/L MAIN LAB O2 Sat-Arterial 97.5 95 - 99 % MAIN LAB Mzasjiflpzo-RTZ-Roc 20.6 (L) 21 - 28 MMOL/L MAIN LAB Specimen Blood, arterial - Blood Performing Organization Address [facility] Phone Number MAIN LAB [address] [place] [address] * POC GLUCOSE (07/01/2018 3:05 PM) Glucose, POC 195 (H) 70 - 100 MG/DL [facility] MAIN LAB Performing Organization Address [facility] Phone Number MAIN LAB [address] [place] [address] * CT HEAD WO CONTRAST (07/01/2018 2:46 [...] 0.09 m/s OTHER OUTSIDE LAB LVOT peak rosemary 0.79 m/s OTHER OUTSIDE LAB LA size 3.50 3.0 - 4.0 cm OTHER OUTSIDE LAB and a peak gradient of 8.01 mmHg OTHER OUTSIDE LAB AV peak velocity 1.42 m/s OTHER OUTSIDE LAB MV Peak A Rosemary 0.71 m/s OTHER OUTSIDE LAB MV Peak E Rosemary PW 0.96 m/s OTHER OUTSIDE LAB Right Heart Systolic 0.75 >1.7 cm OTHER OUTSIDE LAB Mmode TAPSE Sinus 3.20 3.1 - 3.7 cm OTHER OUTSIDE LAB FS 42.57 28 - 44 % OTHER OUTSIDE LAB EF 72.37 % OTHER OUTSIDE LAB AV index (nanwalek) 0.56 OTHER OUTSIDE LAB E/A ratio 1.35 OTHER OUTSIDE LAB E/E' ratio 10.67 OTHER OUTSIDE LAB CV ECHO PV PLANT CHANGER MAXINE Cooley OTHER OUTSIDE LAB LV mass 118.49 96 - 200 g OTHER OUTSIDE LAB RWT 0.36 <=0.42 OTHER OUTSIDE LAB TV rest pulmonary artery 22 mmHg OTHER OUTSIDE LAB pressure Right Heart Systolic TDI 0.110 m/s OTHER OUTSIDE LAB S' Cardiology Ultrasound Siemens [id number] OTHER OUTSIDE LAB Machine ECHO EF 60 [...] study available for comparison Performing Organization Address City/[facility]/Zipcode Phone Number OTHER OUTSIDE LAB * CULTURE-BLOOD W/SENSITIVITY (07/01/2018 1:04 PM) Battery Name BLOOD CULTURE MAIN LAB Specimen Description BLOOD MAIN LAB LEFT ANTECUBITAL Special Requests NONE [facility] MAIN LAB Culture NO GROWTH 5 DAYS [facility] MAIN LAB Report Status FINAL MAIN LAB 07/07/2018 Specimen Blood Performing Organization Address [facility] Phone Number MAIN LAB [address] [place] [address] * POC GLUCOSE (07/01/2018 1:02 PM) Glucose, POC 169 (H) 70 - 100 MG/DL MAIN LAB Performing Organization Address [facility] Phone Number MAIN LAB [address] [place] [address] * URINALYSIS MICROSCOPIC REFLEX TO CULTURE (07/01/2018 12:53 PM) WBCs,UA 0-2 0 - 2 /HPF MAIN LAB RBCs,UA 2-10 0 - 3 /HPF MAIN LAB Comment,UA Urine submitted for reflex MAIN LAB culture if criteria are met:WBC>10, positive nitrite and/or >=1+ leukocyte esterase. If quantity is not sufficient, an addendum will follow. MucousUA TRACE [facility] MAIN LAB Specimen Urine Performing Organization Address City/[facility] Phone Number MAIN LAB [address] [place] [address] * URINALYSIS DIPSTICK REFLEX TO CULTURE (07/01/2018 12:53 PM) Color,UA STRAW [facility] MAIN LAB Turbidity,UA CLEAR CLEAR-CLEAR [facility] MAIN LAB Specific Rye-Urine 1.018 1.003 - 1.035 [facility] MAIN LAB pH,UA 5.0 5.0 - 8.0 [facility] MAIN LAB Protein,UA NEG NEG-NEG MAIN LAB Glucose,UA 2+ (A) NEG-NEG [facility] MAIN LAB Ketones,UA NEG NEG-NEG [facility] MAIN LAB Bilirubin,UA NEG NEG-NEG [facility] MAIN LAB Blood,UA 1+ (A) NEG-NEG MAIN LAB Urobilinogen,UA NORMAL NORM-NORMAL MAIN LAB Nitrite,UA NEG NEG-NEG MAIN LAB Leukocytes,UA NEG NEG-NEG [facility] MAIN LAB Urine Ascorbic Acid, UA NEG NEG-NEG MAIN LAB Specimen Urine Performing Organization Address City/[facility] Phone Number MAIN LAB [address] [place] [address] * LACTIC ACID(LACTATE) (07/01/2018 12:50 PM) Lactic Acid 1.5 0.5 - 2.0 MMOL/L MAIN LAB Performing Organization Address [facility] Phone Number MAIN LAB [address] [place] [address] * BETA HYDROXYBUTYRATE (KETONES) (07/01/2018 12:50 PM) Beta Hydroxybutyrate 0.1 <0.3 MMOL/L MAIN LAB Comment: Beta hydroxybutyrate (BOHB) is the most abundant ketone (78%), followed by acetoacetate (20%) and acetone (2%).Measurement BOHB is recommended to assess ketones in DKA. Expected BOHB Results for DKA: Initial presentation high/increasing During treatment decreasing Resolved decreasing/normal Performing Organization Address [facility] Phone Number MAIN LAB [address] [place] [address] * LACTIC ACID (BG - RAPID LACTATE) (07/01/2018 12:50 PM) Lactic Acid,BG 1.5 0.5 - 2.0 MMOL/L [facility] MAIN LAB Specimen Blood Performing Organization Address City/[facility] Phone Number [facility] MAIN LAB [address] [place] [address] * CBC AND DIFF (07/01/2018 12:50 PM) White Blood Cells 9.5 4.5 - 11.0 K/UL MAIN LAB RBC 2.96 (L) 4.4 - 5.5 M/UL MAIN LAB Hemoglobin 8.7 (L) 13.5 - 16.5 GM/DL MAIN LAB Hematocrit 26.3 (L) 40 - 50 % MAIN LAB MCV 88.8 80 - 100 FL MAIN LAB MCH 29.4 26 - 34 PG MAIN LAB MCHC 33.0 32.0 - 36.0 G/DL MAIN LAB RDW 13.9 11 - 15 % MAIN LAB Platelet Count 297 150 - 400 K/UL MAIN LAB MPV 9.0 7 - 11 FL MAIN LAB Neutrophils 75 41 - 77 % MAIN LAB Lymphocytes 15 (L) 24 - 44 % MAIN LAB Monocytes 8 4 - 12 % MAIN LAB Eosinophils 2 0 - 5 % MAIN LAB Basophils 0 0 - 2 % MAIN LAB Absolute Neutrophil Count 7.10 (H) 1.8 - 7.0 K/UL MAIN LAB Absolute Lymph Count 1.50 1.0 - 4.8 K/UL MAIN LAB Absolute Monocyte Count 0.80 0 - 0.80 K/UL MAIN LAB Absolute Eosinophil Count 0.20 0 - 0.45 K/UL MAIN LAB Absolute Basophil Count 0.00 0 - 0.20 K/UL MAIN LAB Specimen Blood Performing Organization Address City/State/Zipcode Phone Number MAIN LAB [address] [place] [address] * IONIZED CALCIUM (07/01/2018 12:50 PM) Ionized Calcium 1.14 1.0 - 1.3 MMOL/L MAIN LAB Specimen Blood Performing Organization Address City/State/Zipcode Phone Number MAIN LAB [address] [place] [address] * PHOSPHORUS (07/01/2018 12:50 PM) Phosphorus 2.6 2.0 - 4.0 MG/DL MAIN LAB Specimen Blood Performing Organization Address City/State/Zipcode Phone Number MAIN LAB [address] [place] [address] * MAGNESIUM (07/01/2018 12:50 PM) Magnesium 2.0 1.6 - 2.6 mg/dL [facility] MAIN LAB Specimen Blood Performing Organization Address City/[facility]/Zipcode Phone Number [facility] MAIN LAB [address] [place] [address] * LIPID PROFILE (07/01/2018 12:50 PM) Cholesterol [...] 130 mg/dL. Specimen Blood Performing Organization Address [facility] Phone Number MAIN LAB [address] [place] [address] * COMPREHENSIVE METABOLIC PANEL (07/01/2018 12:50 PM) Sodium 138 137 - 147 MMOL/L [facility] MAIN LAB Potassium 4.3 3.5 - 5.1 MMOL/L [facility] MAIN LAB Chloride 113 (H) 98 - 110 MMOL/L [facility] MAIN LAB Glucose 166 (H) 70 - 100 MG/DL [facility] MAIN LAB Blood Urea Nitrogen 13 7 - 25 MG/DL [facility] MAIN LAB Creatinine 0.95 0.4 - 1.24 MG/DL [facility] MAIN LAB Calcium 7.9 (L) 8.5 - 10.6 MG/DL [facility] MAIN LAB Total Protein 5.7 (L) 6.0 - 8.0 G/DL [facility] MAIN LAB Total Bilirubin 0.3 0.3 - 1.2 MG/DL [facility] MAIN LAB Albumin 2.8 (L) 3.5 - 5.0 G/DL [facility] MAIN LAB Alk Phosphatase 117 (H) 25 - 110 U/L [facility] MAIN LAB AST (SGOT) 10 7 - 40 U/L [facility] MAIN LAB CO2 19 (L) 21 - 30 MMOL/L [facility] MAIN LAB ALT (SGPT) 7 7 - 56 U/L [facility] MAIN LAB Anion Gap 6 3 - 12 [facility] MAIN LAB eGFR [...] for questions. Specimen Blood Performing Organization Address City/[facility]/Zipcode Phone Number MAIN LAB [address] [place] [address] * HEMOGLOBIN A1C (07/01/2018 12:50 PM) Hemoglobin A1C 17.4 (H) 4.0 - 6.0 % [facility] MAIN LAB Comment: The ADA recommends that most patients with type 1 and type 2 diabetes maintain an A1c level <7%. Specimen Blood Performing Organization Address City/[facility] Phone Number MAIN LAB [address] [place] [address] * IR ARTERIOGRAM NEURO (07/01/2018 12:29 PM) [...] Fentanyl 25 mcg Contrast - 100 cc [id number] Total mGy - 421 Anesthesia:conscious sedation Consent [...] the sheath was advanced over a 5 Swiss 125 cm Vert catheter over a 180 cm 0.035 [place] wire over the aortic arch and into [...] therefore, hemostasis was achieved using an 8 Swiss Angioseal closure device followed by manual pressure [...] Fentanyl 25 mcg Contrast - 100 cc [id number] Total mGy - 421 Anesthesia: conscious sedation [...] the sheath was advanced over a 5 Swiss 125 cm Vert catheter over a 180 cm 0.035 [place] wire over the aortic arch and into [...] therefore, hemostasis was achieved using an 8 Swiss Angioseal closure device followed by manual pressure [...] teamat 11:51 AM on 07/01/2018 by the front loader residential driver in consultation with TALIA BOSTON M.D.. Approved [...] at 11:51 AM on 07/01 by the front loader residential driver in consultation with TALIA BOSTON M.D.. Approved [...] teamat 11:51 AM on 07/01/2018 by the front loader residential driver in consultation with TALIA BOSTON M.D.. Approved [...] at 11:51 AM on 07/01 by the front loader residential driver in consultation with TALIA BOSTON M.D.. Approved [...] teamat 11:51 AM on 07/01/2018 by the front loader residential driver in consultation with TALIA BOSTON M.D.. Approved [...] at 11:51 AM on 07/01 by the front loader residential driver in consultation with TALIA BOSTON M.D.. Approved [...] Address City/State/Zipcode Phone Number [facility] RAD RESULTS in this encounter Visit Diagnoses Diagnosis Stroke (HCC) - Primary Unspecified cerebral artery occlusion with cerebral infarction Cerebrovascular accident (CVA) due to occlusion of right middle cerebral artery (HCC) Gastrointestinal hemorrhage with melena Acute blood loss anemia Acute posthemorrhagic anemia Chronic atrial fibrillation (HCC) Atrial fibrillation Essential hypertension Unspecified essential hypertension Cerebrovascular accident (CVA) due to embolism of right middle cerebral artery (HCC) Hypertension, unspecified type Type 2 diabetes mellitus with complication, with long-term current use of insulin (HCC) 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, severe stage Diabetes (HCC) Type II or unspecified type diabetes mellitus without mention of complication , not stated as uncontrolled Anemia Anemia, unspecified Agitation Other and unspecified special symptom or syndrome, not elsewhere classified Admitting Diagnoses Diagnosis Stroke Stroke (HCC) Unspecified cerebral artery occlusion with cerebral infarction Administered Medications Medication Order MAR Action Action Date Dose Rate Site acetaminophen (TYLENOL) oral solution Given 07/03/2018 650 mg 650 mg 20:08 CDT 650 mg, Per NG tube, EVERY 6 HOURS PRN, Starting Padma 07/02/18 at 1636, Until 07/06/18 at 1136, Pain non-opioid: may be used alone or in combination with opioid analgesia, TOTAL ACETAMINOPHEN DOSE NOT TO EXCEED 4GM DAILY Given 07/05/2018 650 mg 11:32 CDT Given 07/05/2018 650 mg 18:18 CDT acetaminophen (TYLENOL) oral solution Given 07/06/2018 650 mg 650 mg 17:55 CDT 650 mg, Oral, EVERY 6 HOURS PRN, Starting 07/06/18 at 1135, Until Padma 07/09/18 at 1756, Pain non-opioid: may be used alone or in combination with opioid analgesia, TOTAL ACETAMINOPHEN DOSE NOT TO EXCEED 4GM DAILY Given 07/07/2018 650 mg 18:28 CDT amLODIPine (NORVASC) tablet 10 mg Given 07/09/2018 10 mg 10 mg, Oral, DAILY, First dose on Padma 09:51 CDT 07/09/18 at 0900, Until Discontinued, NURSING: Please educate patient and document: Do not give with grapefruit juice. amLODIPine (NORVASC) tablet 5 mg Given 07/07/2018 5 mg 5 mg, Oral, DAILY, First dose on Fri 15:39 CDT 07/07/18 at 1500, Until Discontinued, NURSING: Please educate patient and document: Do not give with grapefruit juice. Given 07/08/2018 5 mg 08:43 CDT aspirin chewable tablet 81 mg Given 07/04/2018 81 mg 81 mg, Per NG tube, DAILY, First dose on 08:54 CDT Padma 07/02/18 at 1115, Until Discontinued Given 07/05/2018 81 mg 08:52 CDT Given 07/06/2018 81 mg 08:33 CDT aspirin chewable tablet 81 mg Given 07/07/2018 81 mg 81 mg, Oral, DAILY, First dose on Fri 08:49 CDT 07/07/18 at 0900, Until Discontinued Given 07/08/2018 81 mg 08:43 CDT Given 07/09/2018 81 mg 09:55 CDT aspirin rectal suppository 300 mg Given 07/02/2018 300 mg 300 mg, Rectal, DAILY, First dose on Fri 00:45 CDT 07/01/18 at 1430, Until Discontinued atorvastatin (LIPITOR) tablet 40 mg Given 07/03/2018 40 mg 40 mg, Per NG tube, AT BEDTIME DAILY, 20:08 CDT First dose on Fri07/02/18 at 2100, Until Discontinued Given 07/04/2018 40 mg 21:32 CDT Given 07/05/2018 40 mg 20:08 CDT atorvastatin (LIPITOR) tablet 40 mg Given 07/06/2018 40 mg 40 mg, Oral, AT BEDTIME DAILY, First 20:54 CDT dose on Fri07/06/18 at 2100, Until Discontinued Given 07/07/2018 40 mg 20:43 CDT Given 07/08/2018 40 mg 21:59 CDT barium sulfate 40 % (VARIBAR HONEY) oral Given 07/03/2018 10 mL suspension 10 mL 08:50 CDT 10 mL, Oral, ONCE, 1 dose, Fri07/03/18 at 0915, GI Procedure Area Only barium sulfate 40 % (VARIBAR NECTAR) Given 07/03/2018 10 mL oral suspension 10 mL 08:50 CDT 10 mL, Oral, ONCE, 1 dose, Fri07/03/18 at 0915, GI Procedure Area Only barium sulfate 40 % (VARIBAR PUDDING) Given 07/03/2018 10 mL oral paste 10 mL 08:50 CDT 10 mL, Oral, ONCE, 1 dose, Fri07/03/18 at 0915, GI Procedure Area Only barium sulfate 40 % (VARIBAR THIN Given 07/03/2018 10 mL LIQUID) oral powder for suspension 10 mL 08:50 CDT 10 mL, Oral, ONCE, 1 dose, 07/03/18 at 0915, Mixing Instructions: 1. Gently shake the barium sulfate to loosen the powder. 2. Remove Cap. Add water to the 40% (w/v) line and replace the cap. 3. Invert bottle and tap with fingers to mix the powder into the water. 4. Shake vigorously for 30 seconds. Let stand for 5 minutes. 5. Suspension has hydrated and settled. Re-fill with water to the 40% line and replace cap. 6. Re-shake thoroughly. Product is now ready for use. bisacodyl (DULCOLAX) rectal suppository 10 mg 10 mg, Rectal, DAILY PRN, Starting Padma 07/02/18 at 0649, Until Padma 07/09/18 at 1756, Constipation VA, Hold for loose stools cefTRIAXone (ROCEPHIN) IVP 1 g Given 07/03/2018 1 g 1 g, Intravenous, EVERY 24 HOURS, 5 17:35 CDT doses, First dose on Fri07/01/18 at 1800, Last dose on Fri07/05/18 at 1800, INSTR: IV PUSH -- RECONSTITUTE EACH 1 GM WITH 10 MLS 0.9% NACL Given 07/04/2018 1 g 17:10 CDT Given 07/05/2018 1 g 17:02 CDT DEXTROSE 50 % IN WATER (D50W) IV SOLP Given 07/02/2018 50 mL (Cabinet Override) 21:50 CDT NOW, 1 dose, Padma 07/02/18 at 2145, Created by cabinet override NOTE: This is a HIGH ALERT Medication. DEXTROSE 50 % IN WATER (D50W) IV SOLP Given 07/04/2018 (Cabinet Override) 13:27 CDT NOW, 1 dose, 07/04/18 at 1330, Created by cabinet override NOTE: This is a HIGH ALERT Medication. DEXTROSE 50 % IN WATER (D50W) IV SOLP Given 07/04/2018 50 mL (Cabinet Override) 19:30 CDT NOW, 1 dose, 07/04/18 at 1930, Created by cabinet override NOTE: This is a HIGH ALERT Medication. dextrose 50% (D50) injection 25 mL Given 07/04/2018 25 mL 25 mL, Intravenous, ONCE, 1 dose, Sat 13:25 CDT 07/04/18 at 1330, NOTE: This is a HIGH ALERT Medication. dextrose 50% (D50) injection 25 mL Given 07/08/2018 25 mL 25 mL, Intravenous, ONCE, 1 dose, Wed 13:35 CDT 07/08/18 at 1345, NOTE: This is a HIGH ALERT Medication. dextrose 50% (D50) injection 50 mL Given 07/08/2018 50 mL 50 mL, Intravenous, ONCE, 1 dose, Wed 11:35 CDT 07/08/18 at 1145, NOTE: This is a HIGH ALERT Medication. diltiazem(#) (cardIZEM) solution 30 mg Given 07/06/2018 30 mg 30 mg, Per NG tube, EVERY 6 HOURS, 00:49 CDT First dose on Padma 07/02/18 at 1200, Until Discontinued Given 07/06/2018 30 mg 05:03 CDT Given 07/06/2018 30 mg 10:55 CDT diltiazem(#) (cardIZEM) solution 30 mg Given 07/07/2018 30 mg 30 mg, Oral, EVERY 6 HOURS, First dose 01:13 CDT on 07/06/18 at 1200, Until Discontinued Given 07/07/2018 30 mg 05:32 CDT Given 07/07/2018 30 mg 11:04 CDT docusate (COLACE) capsule 100 mg Given 07/02/2018 100 mg 100 mg, Per NG tube, TWICE DAILY, First 20:01 CDT dose on Padma 07/02/18 at 1115, Until Discontinued, Hold for loose stools Given 07/03/2018 100 mg 09:53 CDT Given 07/03/2018 100 mg 20:08 CDT docusate (COLACE) oral solution 100 mg Given 07/04/2018 100 mg 100 mg, Per NG tube, TWICE DAILY, First 08:54 CDT dose on 07/04/18 at 0915, Until Discontinued, Hold for loose stools Given 07/04/2018 100 mg 21:32 CDT Given 07/05/2018 100 mg 08:52 CDT electrolyte GUT PEG (NULYTELY, COLYTE, Given 07/06/2018 4 L GAVILYTE-N) oral solution 4 L 20:53 CDT 4 L, Oral, ONCE, 1 dose, 07/06/18 at 1915, Note: Add one of the four attached flavor packets during mixing. electrolyte GUT PEG (NULYTELY, COLYTE, Given 07/07/2018 4 L GAVILYTE-N) oral solution 4 L 20:43 CDT 4 L, Oral, ONCE, 1 dose, 07/07/18 at 2000, Note: Add one of the four attached flavor packets during mixing. fentaNYL citrate PF (SUBLIMAZE) Given 07/01/2018 25 mcg injection 12:18 CDT INTRA-PROCEDURE MED, Starting 07/01/18 at 1218, Until Discontinued flumazenil (ROMAZICON) injection 0.2 mg Given 07/01/2018 0.2 mg 0.2 mg, Intravenous, ONCE, 1 dose, Wed 13:59 CDT 07/01/18 at 1400 Given 07/01/2018 0.3 mg 14:05 CDT flumazenil (ROMAZICON) injection 0.5 mg Given 07/01/2018 0.5 mg 0.5 mg, Intravenous, ONCE, 1 dose, Wed 14:14 CDT 07/01/18 at 1415 flumazenil (ROMAZICON) injection 0.5 mg Given 07/01/2018 0.5 mg 0.5 mg, Intravenous, ONCE, 1 dose, Wed 15:29 CDT 07/01/18 at 1530 heparin (porcine) PF syringe 5,000 Units Given 07/08/2018 5,000 Units Abdomen:LLQ 5,000 Units, Subcutaneous, EVERY 8 05:26 CDT HOURS, First dose on Padma 07/02/18 at 1400, Until Discontinued, NOTE: This is a HIGH ALERT Medication. Given 07/08/2018 5,000 Units Abdominal 21:56 CDT Tissue Given 07/09/2018 5,000 Units Abdominal 06:05 CDT Tissue hydrALAZINE (APRESOLINE) injection 10 mg Given 07/01/2018 10 mg 10 mg, Intravenous, EVERY 6 HOURS PRN, 15:11 CDT Starting Fri07/01/18 at 1256, Until 07/01/18 at 2336, Systolic Blood Pressure..., SBP >140 Given 07/01/2018 10 mg 21:46 CDT hydrALAZINE (APRESOLINE) injection 10-20 Given 07/05/2018 20 mg mg 09:59 CDT 10-20 mg, Intravenous, EVERY 6 HOURS PRN, Starting 07/01/18 at 2336, Until Padma 07/09/18 at 1151, Systolic Blood Pressure..., >140 Given 07/05/2018 20 mg 16:58 CDT Given 07/09/2018 20 mg 10:04 CDT insulin aspart U-100 (NOVOLOG FLEXPEN) Given 07/04/2018 2 Units Right Arm injection PEN 0-7 Units 08:47 CDT 0-7 Units, Subcutaneous, BEFORE MEALS AND AT BEDTIME, First dose on 07/04/18 at 0700, Until Discontinued, -POC glucose 140-180mg/dL at , administer 1 unit insulin, at 21, 03* administer 0 units. -POC glucose 181-220mg/dL at , , administer 2 units insulin, at , 03* administer 1 unit. -POC glucose 221-260mg/dL at , administer 3 units insulin, at , 03* administer 2 units. -POC glucose 261-300mg/dL at , , administer 4 units insulin, at 21, 03* administer 3 units. -POC glucose 301-350mg/dL at , administer 5 units insulin, at , 03* administer 4 units. -POC glucose 351-400mg/dL at , administer 6 units insulin, at 21, 03* administer 5 units. -POC glucose >400mg/dL at , administer 7 units insulin, at 21, 03* administer 6 units. *only if ordered 5x's daily For POCT glucose >350mg/dL give correction bolus and recheck POCT glucose in 2 hours. If POCT glucose at 2 hours >300mg/dL call physician for further orders. For patients who are not eating meals, continue to administer the appropriate correction factor. NOTE: This is a HIGH ALERT Medication. Given 07/06/2018 1 Units Abdominal 11:55 CDT Tissue Given 07/06/2018 1 Units Abdominal 17:11 CDT Tissue insulin aspart U-100 (NOVOLOG FLEXPEN) Given 07/04/2018 5 Units Abdominal injection PEN 10 Units 09:35 CDT Tissue 10 Units, Subcutaneous, THREE TIMES DAILY AFTER MEALS, First dose on Fri07/03/18 at 1500, Until Discontinued, - Post Meal Dosing: give scheduled Aspart (Novolog) insulin at the completion of meal based on % eaten. Adjust dose based on % of meal eaten. - >50% of meal eaten, give scheduled dose - 10-50% of meal eaten, give 1/2 of schedule dose (round dose to the nearest unit) - <10% of meal eaten, hold scheduled dose. NOTE: Rapid acting insulins should be given with food/meal. Use caution when patient is NPO. NOTE: This is a HIGH ALERT Medication. Given 07/05/2018 5 Units Arm, Right 09:10 CDT insulin aspart U-100 (NOVOLOG FLEXPEN) Given 07/05/2018 4 Units Abdominal injection PEN 4 Units 18:00 CDT Tissue 4 Units, Subcutaneous, THREE TIMES DAILY AFTER MEALS, First dose on Fri07/05/18 at 1300, Until Discontinued, - Post Meal Dosing: give scheduled Aspart (Novolog) insulin at the completion of meal based on % eaten. Adjust dose based on % of meal eaten. - >50% of meal eaten, give scheduled dose - 10-50% of meal eaten, give 1/2 of schedule dose (round dose to the nearest unit) - <10% of meal eaten, hold scheduled dose. NOTE: Rapid acting insulins should be given with food/meal. Use caution when patient is NPO. NOTE: This is a HIGH ALERT Medication. Given 07/06/2018 4 Units Abdominal 10:58 CDT Tissue Given 07/06/2018 4 Units Abdominal 12:52 CDT Tissue insulin aspart U-100 (NOVOLOG FLEXPEN) Given 07/09/2018 4 Units Ankle , Right injection PEN 4 Units 13:51 CDT 4 Units, Subcutaneous, THREE TIMES DAILY WITH MEALS, First dose on Fri07/09/18 at 1200, Until Discontinued, Hold if NPO for procedure, unable to eat, or if FSBS < 70 mg/dL Give at start of meal. NOTE: This is a HIGH ALERT Medication. insulin aspart U-100 (NOVOLOG FLEXPEN) Given 07/07/2018 5 Units Abdominal injection PEN 5 Units 18:28 CDT Tissue 5 Units, Subcutaneous, THREE TIMES DAILY WITH MEALS, First dose on 07/07/18 at 1800, Until Discontinued, Hold if NPO for procedure, unable to eat, or if FSBS < 70 mg/dL Give at start of meal. NOTE: This is a HIGH ALERT Medication. insulin aspart U-100 (NOVOLOG FLEXPEN) Given 07/06/2018 6 Units Abdominal injection PEN 6 Units 17:58 CDT Tissue 6 Units, Subcutaneous, THREE TIMES DAILY AFTER MEALS, First dose on 07/06/18 at 1900, Until Discontinued, - Post Meal Dosing: give scheduled Aspart (Novolog) insulin at the completion of meal based on % eaten. Adjust dose based on % of meal eaten. - >50% of meal eaten, give scheduled dose - 10-50% of meal eaten, give 1/2 of schedule dose (round dose to the nearest unit) - <10% of meal eaten, hold scheduled dose. NOTE: Rapid acting insulins should be given with food/meal. Use caution when patient is NPO. NOTE: This is a HIGH ALERT Medication. insulin glargine (LANTUS SOLOSTAR, Given 07/05/2018 10 Units Abdominal BASAGLAR) injection PEN 10 Units 10:18 CDT Tissue 10 Units, Subcutaneous, ONCE, 1 dose, 07/05/18 at 1015, In addition to 20 units this morning -- Do not mix with other insulins -- NOTE: This is a HIGH ALERT Medication. insulin glargine (LANTUS SOLOSTAR, Given 07/05/2018 20 Units Arm, Left BASAGLAR) injection PEN 20 Units 09:00 CDT 20 Units, Subcutaneous, DAILY, First dose on 07/05/18 at 0900, Until Discontinued, Continue if NPO. DO NOT mix with other insulins -- Do not mix with other insulins -- NOTE: This is a HIGH ALERT Medication. insulin glargine (LANTUS SOLOSTAR, Given 07/09/2018 20 Units Arm, Right BASAGLAR) injection PEN 20 Units 11:41 CDT 20 Units, Subcutaneous, DAILY, First dose on Padma 07/09/18 at 1130, Until Discontinued, Continue if NPO. DO NOT mix with other insulins -- Do not mix with other insulins -- NOTE: This is a HIGH ALERT Medication. insulin glargine (LANTUS SOLOSTAR, Given 07/08/2018 25 Units Abdominal BASAGLAR) injection PEN 25 Units 08:46 CDT Tissue 25 Units, Subcutaneous, DAILY, First dose on Fri07/08/18 at 0900, Until Discontinued, Continue if NPO. DO NOT mix with other insulins -- Do not mix with other insulins -- NOTE: This is a HIGH ALERT Medication. insulin glargine (LANTUS SOLOSTAR, Given 07/07/2018 28 Units Abdominal BASAGLAR) injection PEN 28 Units 08:51 CDT Tissue 28 Units, Subcutaneous, DAILY, First dose on Tu07/07/18 at 0900, Until Discontinued, Continue if NPO. DO NOT mix with other insulins -- Do not mix with other insulins -- NOTE: This is a HIGH ALERT Medication. insulin glargine (LANTUS SOLOSTAR, Given 07/06/2018 30 Units Abdominal BASAGLAR) injection PEN 30 Units 08:35 CDT Tissue 30 Units, Subcutaneous, DAILY, First dose on 07/06/18 at 0900, Until Discontinued, Continue if NPO. DO NOT mix with other insulins -- Do not mix with other insulins -- NOTE: This is a HIGH ALERT Medication. insulin glargine (LANTUS SOLOSTAR, Given 07/04/2018 40 Units Arm, Right BASAGLAR) injection PEN 40 Units 08:52 CDT 40 Units, Subcutaneous, DAILY, First dose on 07/04/18 at 0900, Until Discontinued, Continue if NPO. DO NOT mix with other insulins -- Do not mix with other insulins -- NOTE: This is a HIGH ALERT Medication. insulin NPH (HUMULIN N KwikPen) Given 07/03/2018 10 Units Arm, Right injection PEN 10 Units 12:33 CDT 10 Units, Subcutaneous, ONCE, 1 dose, 07/03/18 at 1145, NOTE: This is a HIGH ALERT Medication. insulin regular (NOVOLIN R) 100 Units in Dose/Rate 07/04/2018 1.6 Units/ hr 1.6 mL/hr sodium chloride 0.9% (NS) 100 mL IV drip Change 08:44 CDT (std conc) 1-32 Units/hr (1-32 mL/hr) 100 mL, at 1-32 mL/hr, Intravenous, TITRATE DIRECTED , Starting 07/01/18 at 1430, Until 07/04/18 at 1100, In the management of a hyperglycemic patient the clinical target is to maintain the patient's blood glucose in the range of 120-160 mg/dL. The RN will maintain the POC Glucose by: A. INITIATING INSULIN IV INFUSION: 1. PRIMING: Flush insulin through all IV tubing before the infusion begins (to saturate the insulin binding sites in the tubing). 2. ADMINISTRATION: Via smart IV pump in 0.5 units/hr increments 3. INITIAL INSULIN BOLUS DOSE: Divide initial POC Glucose level by 100, then round up to the nearest 0.5 units (Do not bolus if glucose < 200 mg/dL). 4. INITIAL INSULIN INFUSION RATE: Divide initial POC Glucose level by 100, then round up to the nearest 0.5 units a. Notify physician if POC Glucose within target range prior to administering bolus dose and initiating infusion. 5. CAUTION: If enteral/parenteral (TPN, PPN, Tube feeds) nutrition abruptly stopped, reduce infusion rate by 50%. B. BLOOD GLUCOSE MONITORIN. While on infusion, use glucose meter to check blood glucose hourly. 2. Once stable (3 consecutive values in target range), may reduce checks to every 2 hr. 3. Resume hourly checks until stable again if: a. Any POC Glucose out of target range b. Any change in insulin infusion rate, including discontinuation of insulin infusion for unanticipated reason c. Any significant change in clinical condition d. Initiation/discontinuation of steroids, vasopressors, TPN/PPN/tube feeds, dialysis, CVVH, or CAVH 4. In patients who are vasoconstricted/hypotensive, capillary BG (i.e., finger sticks) may be inaccurate; venous or arterial blood is preferred in this setting. C. ADJUSTING INFUSION RATE: Hypoglycemia: 1. If BG < 50 mg/dL: a. HOLD INSULIN INFUSION and administer 1 amp (25g) D50 IV; recheck BG every 15 minutes until > or=90 mg/dL. b. Then, recheck BG every 1 hr; when > wx=506 mg/dL, restart insulin infusion at 50% of most recent rate 2. If BG 50-74 mg/dL: a. HOLD INSULIN INFUSION and administer amp (12.5 g) D50 IV; recheck BG every 15 minutes until > or=90 mg/dL. b. Then, recheck BG every 1 hr; when > aw=627 mg/dL, restart insulin infusion at 50% of most recent rate. 3. If BG 75-99 mg/dL: a. HOLD INSULIN INFUSION. Recheck BG every 15 minutes until BG reaches or remains > or=90 mg/dL. b. Then, recheck BG every 1 hr; when > dj=290 mg/dL, restart insulin infusion at 75% of most recent rate. RATE ADJUSTMENT STEPS: STEP 1: The CURRENT POC GLUCOSE LEVEL-identifies a COLUMN in the table STEP 2: Determine the RATE OF CHANGE from the previous POC Glucose level-identifies a CELL in the table, THEN move right for INSTRUCTIONS: Note: If the last BG was measured 2 or more hrs before the current BG, calculate the hourly rate of change. Example: If the BG at 2PM was 150 mg/dL and the BG at 4PM is 120 mg/dL, the total traveler changer 2 hours is -30 mg/dL; however, the hourly change is -30 mg/dL 2 hours=-15 mg/dL/hr. BG 100-119 mg/dl BG 120-159 mg/dL BG 160-199 mg/dL BG > od=267 INSTRUCTIONS++ BG increased by BG increased Increase infusion > 60 mg/dL By 2 x "Delta" & NOTE: This is a HIGH ALERT Medication. Dose/Rate Change 07/04/2018 2.1 Units/hr 2.1 mL/hr 09:33 CDT Dose/Rate Change 07/04/2018 1.6 Units/hr 1.6 mL/hr 10:31 CDT iopamidol 300 (ISOVUE-300) injection 100 Given 07/01/2018 100 mL mL 12:45 CDT 100 mL, Intra-arterial, ONCE, 1 dose, Fri07/01/18 at 1245, NOTE: This is a HIGH ALERT Medication. iopamidol 370 (ISOVUE-370) injection 100 Given 07/01/2018 100 mL mL 12:00 CDT 100 mL, Intravenous, ONCE, 1 dose, Fri07/01/18 at 1200, NOTE: This is a HIGH ALERT Medication. labetalol (NORMODYNE) injection 10 mg Given 07/02/2018 10 mg 10 mg, Intravenous, EVERY 6 HOURS PRN, 07:00 CDT Starting Padma 07/02/18 at 0644, Until Padma 07/09/18 at 1151, Systolic Blood Pressure..., >140 mmHg, Hold for heart rate < 60 bpm Given 07/02/2018 10 mg 16:21 CDT Given 07/04/2018 10 mg 14:06 CDT lidocaine (LMX) 4 % topical cream Given 07/06/2018 Topical, ONCE, 1 dose, 07/06/18 at 10:55 CDT 0930, Apply to RLE lisinopril (PRINIVIL; ZESTRIL) tablet 20 Given 07/04/2018 20 mg mg 08:54 CDT 20 mg, Per NG tube, DAILY, First dose on Fri07/02/18 at 1200, Until Discontinued Given 07/05/2018 20 mg 08:52 CDT Given 07/06/2018 20 mg 08:33 CDT lisinopril (PRINIVIL; ZESTRIL) tablet 40 Given 07/07/2018 40 mg mg 08:49 CDT 40 mg, Oral, DAILY, First dose on Fri07/07/18 at 0900, Until Discontinued Given 07/08/2018 40 mg 08:42 CDT Given 07/09/2018 40 mg 09:55 CDT magnesium sulfate 1 g/D5W 100 mL IVPB Given - New 07/02/2018 1 g 100 mL/hr 1 g, Intravenous, 100 mL, Administer Bag 06:07 CDT over 1 Hours, NEEDED, Starting Fri07/01/18 at 1253, Until Padma 07/02/18 at 1129, Other..., magnesium replacement (see Admin Instructions), If urine output < 30 mL/hr or SCr >2 mg/dL, check with physician prior to giving magnesium replacement. - For Serum Magnesium > 2.1 mg/dL, No replacement necessary. - For Serum Magnesium 1.8 - 2.0 mg/dL, give Magnesium Sulfate 2 grams IV over 2 hours. - For Serum Magnesium 1.6 - 1.7 mg/dL, give Magnesium Sulfate 3 grams IV over 3 hours. - For Serum Magnesium 1.3 - 1.5 mg/dL, give Magnesium Sulfate 4 grams IV over 4 hours. - For Serum Magnesium <=1.2 mg/dL, give Magnesium Sulfate 6 grams IV over 6 hours AND notify physician. Recheck serum magnesium level 2 hours after completion of appropriate replacement dose. Repeat this standing order x 1. Notify physician if serum magnesium < 2.1 mg/dL after two replacements. Infuse each 1gm Magnesium sulfate over 1 hour. Each 1 gm delivers 8.1 mEq Magnesium. Given - New Bag 07/02/2018 1 g 100 mL/hr 07:11 CDT melatonin tablet 3 mg Given 07/04/2018 3 mg 3 mg, Oral, ONCE, 1 dose, 07/04/18 at 01:36 CDT 0130 melatonin tablet 5 mg Given 07/08/2018 5 mg 5 mg, Oral, AT BEDTIME DAILY, First dose 21:59 CDT on Fri07/08/18 at 2100, Until Discontinued metoprolol tartrate (LOPRESSOR) tablet Given 07/08/2018 12.5 mg 12.5 mg 08:42 CDT 12.5 mg, Oral, TWICE DAILY, First dose on Fri07/07/18 at 2100, Until Discontinued, Hold for heart rate < 70 bpm, sys BP<100, luis alberto BP<80 Given 07/08/2018 12.5 mg 21:59 CDT Given 07/09/2018 12.5 mg 09:52 CDT metoprolol tartrate (LOPRESSOR) tablet 25 mg 25 mg, Oral, TWICE DAILY, First dose on Fri07/09/18 at 2100, Until Discontinued, Hold for heart rate < 70 bpm, sys BP<100, luis alberto BP<80 niCARdipine (cardENE) 20 mg/NS 200 mL Given - New 07/01/2018 5 mg/hr 50 mL/hr infusion (std conc)(premade) Bag 12:49 CDT 200 mL, 5-15 mg/hr (50-150 mL/hr), at 50-150 mL/hr, Intravenous, TITRATE DIRECTED , Starting Fri07/01/18 at 1230, Until Fri07/02/18 at 0942, Initiate at 5 mg/hr Titrate to keep: SBP<140 Call MD if patient's dose is 5 mg/hr and able to tolerate oral medications. Std Conc=0.1 mg/ml nortriptyline (PAMELOR) capsule 10 mg Given 07/06/2018 10 mg 10 mg, Oral, AT BEDTIME DAILY, First 20:54 CDT dose on Fri07/06/18 at 2100, Until Discontinued Given 07/07/2018 10 mg 20:43 CDT Given 07/08/2018 10 mg 21:59 CDT pantoprazole (PROTONIX) injection 40 mg Given 07/01/2018 40 mg 40 mg, Intravenous, DAILY, First dose on 17:14 CDT Fri07/01/18 at 1515, Until Discontinued, Anemia and reported positive FOBT at OSH perflutren lipid microspheres (DEFINITY) Given 07/01/2018 2 Diluted mL injection 1-20 Diluted mL 14:10 CDT 1-20 Diluted mL, Intravenous, ONCE, 1 dose, Fri07/01/18 at 1415, NOTE: This is a HIGH ALERT Medication. polyethylene glycol 3350 (MIRALAX) Given 07/05/2018 17 g packet 17 g 17:57 CDT 17 g (1 packet), Oral, DAILY, First dose on Fri07/05/18 at 1230, Until Discontinued, 8.5 GRAMS=0.5 PACKET 17 GRAMS=1 PACKET 34 GRAMS=2 PACKETS Given 07/06/2018 17 g 08:34 CDT potassium chloride oral solution 20 mEq Given 07/06/2018 20 mEq 20 mEq, Oral, ONCE, 1 dose, Fri07/06/18 09:25 CDT at 0845 potassium chloride SR (K-DUR) tablet 30 Given 07/09/2018 30 mEq mEq 09:56 CDT 30 mEq, Oral, ONCE, 1 dose, Fri07/09/18 at 0730, Do NOT break or crush tablet potassium chloride SR (K-DUR) tablet 40 Given 07/08/2018 40 mEq mEq 10:13 CDT 40 mEq, Oral, ONCE, 1 dose, Fri07/08/18 at 0845, Do NOT break or crush tablet QUEtiapine (SEROQUEL) tablet 25 mg Given 07/08/2018 25 mg 25 mg, Oral, TWICE DAILY, First dose on 08:43 CDT Fri07/03/18 at 1445, Until Discontinued Given 07/08/2018 25 mg 21:59 CDT Given 07/09/2018 25 mg 10:06 CDT QUEtiapine (SEROQUEL) tablet 50 mg Given 07/03/2018 50 mg 50 mg, Oral, ONCE, 1 dose, Fri07/03/18 09:56 CDT at 0600 risperiDONE (RISPERDAL M-TAB; Given 07/03/2018 0.5 mg RISPERIDONE M-TAB) rapid dissolve tablet 08:15 CDT 0.5 mg 0.5 mg, Oral, ONCE, 1 dose, Fri07/03/18 at 0800, Place on tongue and allow to dissolve. senna/docusate (SENOKOT-S) solution 10 Given 07/05/2018 10 mL mL 08:52 CDT 10 mL, Per NG tube, TWICE DAILY, First dose on Fri07/02/18 at 1115, Until Discontinued, Hold for loose stools. Note: 10 mL is equivalent to 1 senna/docusate tablet Given 07/05/2018 10 mL 20:08 CDT Given 07/06/2018 10 mL 08:33 CDT senna/docusate (SENOKOT-S) solution 10 Given 07/06/2018 10 mL mL 20:54 CDT 10 mL, Oral, TWICE DAILY, First dose on 07/06/18 at 2100, Until Discontinued, Hold for loose stools. Note: 10 mL is equivalent to 1 senna/docusate tablet Given 07/07/2018 10 mL 20:43 CDT sodium chloride 0.9 % infusion Given - New 07/01/2018 75 mL/hr 1,000 mL, Intravenous, at 75 mL/hr, Bag 13:30 CDT CONTINUOUS, Starting Fri07/01/18 at 1300, Until Padma 07/02/18 at 1012 Given - New Bag 07/02/2018 75 mL/hr 04:58 CDT sodium chloride PF 0.9% injection 50 mL Given 07/01/2018 50 mL 50 mL, Intravenous, ONCE, 1 dose, Fri 12:00 CDT 07/01/18 at 1200, DO NOT SEND this medication unless it is requested. This med is usually available in floor stock. in this encounter
--- OUTSIDE RECORDS SUMMARY | 2018-07-11 01:56 | XMS REPORT | Encounter Summary ---
Author Author [facility] Organization [facility] Address Unknown Phone Unavailable Care Team Providers Care Retrieval Specialist Name Role Phone Damien Caceres MD Unavailable Melo Adame MD Unavailable Unavailable Alvarez Ozuna NP PCP Hilary Davenport RN Unavailable Unavailable Reason for Visit * Auth/Cert Status Reason Specialty Diagnoses / Referred By Referred To Procedures Contact Contact Diagnoses Stroke (HCC) Stroke Encounter Details Date Type Department Care Team Description 07/08/2018 Anesthesia Gastrointenstinal Hannah Arias CRNA Event Endoscopy [address] [place] [address] [place] [address] [phone] Anesthesia Record Procedure Name Responsible Anesthesia Start Time Anesthesia Stop Time Anesthesiologist ESOPHAGOGASTRODUODENOSCOP Asaf Galvan MD 07/08/18 1203 1302 Y (N/A ) Date Time Event Comment 1045 AN Equip Check 2017 1203 Anes Start 1203 An Start Data 1203 In Room 1206 Start Supplemental O2 1206 Anesthesia Ready 1206 Quick Note ETCO2 not accurate, monitoring respirations. 1214 Proc Start 1302 an stop data 1302 Handoff to RN I completed my SBAR handoff to the receiving nurse. 1302 An Stop Meds Name Total lidocaine (2%) 200 mg/10mL Injection 100 mg syringe propofol (DIPRIVAN) infusion 406.45 mg phenylephrine (SANDRA-SYNEPHRINE) injection 600 mcg lactated ringers infusion (1000 mL bag) 550 mL * Name O2 N2O Inspired N2O * No blood administrations on file. Type Details Placement Removal Wounds 05/11/14; RT; Eye; Surgical Incision 05/11/14 0000 by Leonardo, (NOT for MAXINE Kim Pressure Injuries) Indwelling 01/15/16; 1845; 12 FR 01/15/16 1845 by Wilber Xie RN Catheter SUPRAPUBIC 07/01/18; Present on Admission; Urology; 07/01/18 0000 by Taylor CATHETER Regular (Two-way) Anthony Saldana RN Wounds 07/02/18; 2130; Posterior; Buttocks; 07/02/18 2130 by Chu, (NOT for Moisture Associated Skin Damage Cuong Pressure Injuries) Peripheral 07/03/18; 1213; IV Therapy; R; Anterior; 07/03/18 1213 by Tanvi, IV Upper Arm (cephalic); 20 G; No; MAXINE Nicole Ultrasound; 1; 1.75 inches Wounds 07/05/18; 1800; Right; Elbow; Abrasion 07/05/18 1800 by Jayleen, (NOT for MAXINE Huffman Pressure Injuries) Puncture 07/01/18; 1230; Right; Femoral; 07/01/18 1230 by 07/08/18 2100 by Jeremy, Wound 07/08/18; 2100 Hannah Ceballos RN Lauren, RN (Sheath) in this encounter Social History Tobacco Use Types Packs/Day Years Used Date Former Smoker Cigars 2 20 Quit: 10/20/2011 Smokeless Tobacco: Never Used Alcohol Use Drinks/Week oz/Week Comments No Sex Assigned at Date Recorded Not on file as of this encounter Functional Status Functional Status Response Date of Assessment Does the patient have a hearing impairment: No 07/03/2018 as of this encounter OR Notes * Anesthesia Postprocedure Evaluation - Nicolas Ortega MD - 07/08/2018 2:45 PM CDT Post-Anesthesia Evaluation Name: Shaheed Anthony : 1960 Age: 57 y.o. Sex: male Procedure Date: 07/08/2018 Procedure: Procedure(s): ESOPHAGOGASTRODUODENOSCOPY COLONOSCOPY ESOPHAGOGASTRODUODENOSCOPY BIOPSY COLONOSCOPY EXCISION LESION Surgeon: Surgeon(s): Roberto Dutta MD Sidorenko, Elena, MD Post-Anesthesia Vitals BP: 170/71 (07/08 1355) Pulse: 71 (07/08 1355) SpO2: 99 % (07/08 1355) SpO2 Pulse: 70 (07/085) Post Anesthesia Evaluation Note Evaluation location: Pre/Post Patient participation: recovered; patient participated in evaluation Level of consciousness: alert Pain score: 0 Pain management: adequate Hydration: normovolemia Temperature: 36.0C - 38.4C Airway patency: adequate Perioperative Events Perioperative events: no Post-op nausea and vomiting: no PONV Postoperative Status Cardiovascular status: hemodynamically stable Respiratory status: spontaneous ventilation Follow-up needed: none Additional comments: Pt with post-procedure mild hypoglycemia. Improved with treatment. Okay for return to nursing floor. Perioperative Events Perioperative Event: No Emergency Case Activation: No * Anesthesia Preprocedure Evaluation - Asaf Galvan MD - 07/08/2018 10 :53 AM CDT Formatting of this note may be different from the original. Anesthesia Pre-Procedure Evaluation Name: Shaheed Anthony : 1960 Age: 57 y.o. Sex: male Procedure Date: 07/08/2018 Procedure: Procedure(s): ESOPHAGOGASTRODUODENOSCOPY COLONOSCOPY Physical Assessment Vital Signs (last filed in past 24 hours): BP: 135/60 (07/08 949) Temp: 37.1 C (98.7 F) (07/08 949) Pulse: 73 (07/08 949) Respirations: 18 PER MINUTE (07/08 949) SpO2: 94 % (07/08 949) O2 Delivery: None (Room Air) (07/08 949) Patient History No Known Allergies Current Medications Medication Directions amLODIPine (NORVASC) 5 mg tablet Take 2.5 [...] by mouth. Take 1 and 1/2 tablets ( 15 mg) Daily. HYDROcodone/acetaminophen (NORCO; VICODIN) 5-325 mg [...] by mouth at bedtime daily. Review of Systems/Medical History Patient summary reviewed Nursing notes reviewed Pertinent labs reviewed No family history of anesthetic complications Airway 1994 had surgery on jaw; chronic jaw pain. Pulmonary Not a current smoker (quit smoking years ago) History of bronchitis. Cardiovascular Recent diagnostic studies: echocardiogram 07/01/18 Chamber sizes and wall thickness are normal Right ventricular function is normal Normal left ventricular systolic function, with an ejection fraction estimated at 60% Normal diastolic function No hemodynamically significant valvular abnormalities Pulmonary artery pressure is estimated at 22 mmHg No previous study available for comparison Exercise tolerance: <4 METS Beta Heath therapy: No Beta blockers within 24 hours: n/a No pacemaker Hypertension, well controlled Dysrhythmias (presented with stroke; recent onsent Afib.); atrial fibrillation PVD Dyspnea on exertion GI/Hepatic/Renal GERD, well controlled Renal disease ( reports kidney function 35-45% r/t DM. ) Bowel prep No nausea No vomiting Couldn't place urinary catheter ; has suprapubic catheter in now. Neuro/Psych CVA (left sided weakness and aphasia), residual symptoms Currently alert and oriented only to self. at bedside answering questions and consenting. MRI brain with acute stroke in R MCA territory moderate size with smaller area of infarct in L temporal lobe. Some petechial hemorrhagic transformation in R MCA infarct bed. CTA head/neck with some narrowing of L intracranial ICA. Per Neurology Note: 06/29/18 with urosepsis and DKA and found to be in Afib at that time and started on anticoagulation, which was then held, after which he had acute onset of L sided weakness and aphasia on 07/01/18 (did not get IV tPA due to out of window), transferred to [facility] and found to have R M1 occlusion s/p TICI 3 thrombectomy. He was monitored in ICU and then transferred to floor, and has been improving with his exam. He continues to have some weakness in left side and memory issues per but otherwise he feels well. Of note, he has had drop in Hgb during hospitalization. Endocrine/Other Diabetes ( On 06/29/2018 Hemoglobin A1C 14.7 ), poorly controlled, type 2; using insulin Anemia (presents today for possible GI bleed.) Malignancy (Prostate cancer s/p prostatectomy ) Recent DKA with BG <600. Diabetic Retinopathy. Neovascular Glaucoma Physical Exam Dental Findings: Poor dentition Comments: denies loose, chipped, cracked, teeth. Neurological Findings: Altered mental status Other Findings: Patient mostly non verbal; diaphoretic. Not following instructions. Patient's at bedside; reports this is unusual behavior. RN at bedside checking BG. Patient not willing to participate in physical exam at this time. Diagnostic Tests Hematology: Lab Results Component Value Date HGB 9.3 07/08/2018 HCT 27.5 07/08/2018 PLTCT 521 07/08/2018 WBC 21.7 07/08/2018 NEUT 85 07/08/2018 ANC 18.40 07/08/2018 ALC 1.50 07/08/2018 JEFFREY 8 07/08/2018 AMC 1.70 07/08/2018 EOSA 0 07/08/2018 ABC 0.00 07/08/2018 MCV 90.4 07/08/2018 MCH 30.4 07/08/2018 MCHC 33.6 07/08/2018 MPV 8.0 07/08/2018 RDW 14.2 07/08/2018 General Chemistry: Lab Results Component Value Date NA 138 07/08/2018 K 3.6 07/08/2018 CL 104 07/08/2018 CO2 26 07/08/2018 GAP 8 07/08/2018 BUN 6 07/08/2018 CR 1.05 07/08/2018 GLU 79 07/08/2018 CA 8.5 07/08/2018 ALBUMIN 3.1 07/08/2018 LACTIC 1.5 07/01/2018 OBSCA 1.14 07/02/2018 MG 1.9 07/02/2018 TOTBILI 0.7 07/08/2018 PO4 2.6 07/02/2018 Coagulation: Lab Results Component Value Date PTT 32.5 01/15/2016 INR 1.1 01/15/2016 Anesthesia Plan ASA score: 3 Plan: MAC Induction method: intravenous NPO status: acceptable Informed Consent Anesthetic plan and risks discussed with spouse. Use of blood products discussed with spouse Blood Consent: consented Plan discussed with: anesthesiologist and CHIEF COMPRESSOR STATION ENGINEER. Comments: (Patient not participating in health history/consent. at bedside; patient hypoglycemic BG <40. Dr Galvan at bedside one amp of D50 ordered - recheck BG 164. ) in this encounter Plan of Treatment Not on fileas of this encounter Visit Diagnoses Not on filein this encounter Administered Medications Medication Order MAR Action Action Date Dose Rate Site lactated ringers infusion Given - New 07/08/2018 INTRA-PROCEDURE MED(CONT), Starting Fri Bag 12:06 CDT 07/08/18 at 1206, Until 07/08/18 at 1302, Anesthesia Intra-op lidocaine (PF) injection Given 07/08/2018 100 mg INTRA-PROCEDURE MED, Starting Wed 12:08 CDT 07/08/18 at 1208, Until Fri07/08/18 at 1302, Anesthesia Intra-op phenylephrine (SANDRA-SYNEPHRINE) injection Given 07/08/2018 100 mcg INTRA-PROCEDURE MED, Starting Wed 12:41 CDT 07/08/18 at 1228, Until Fri07/08/18 at 1302, Symptomatic Hypotension, Anesthesia Intra-op Given 07/08/2018 100 mcg 12:50 CDT Given 07/08/2018 100 mcg 12:56 CDT propofol (DIPRIVAN) infusion Dose/Rate 07/08/2018 50 21.5 mL/hr 50 mL, Intravenous, INTRA-PROCEDURE Change 12:44 CDT mcg/kg/min MED(CONT), Starting 07/08/18 at 1209, Until Fri07/08/18 at 1302, Anesthesia Intra-op Dose/Rate Change 07/08/2018 40 17.2 mL/hr 12:46 CDT mcg/kg/min Dose/Rate Change 07/08/2018 20 8.6 mL/hr 12:50 CDT mcg/kg/min in this encounter
--- OUTSIDE RECORDS SUMMARY | 2018-07-11 01:57 | XMS REPORT | Encounter Summary ---
Author Author [facility] Organization [facility] Address Unknown Phone Unavailable Care Team Providers Care Laundry Machine Mechanic Name Role Phone Damien Caceres MD Unavailable Melo Adame MD Unavailable Unavailable Alvarez Ozuna NP PCP Hilary Davenport RN Unavailable Unavailable Encounter Details Date Type Department Care Team Description 07/08/2018 Procedure Pass Gastrointenstinal Endoscopy [address] [place] [address] Social History Tobacco Use Types Packs/Day Years Used Date Former Smoker Cigars 2 20 Quit: 10/20/2011 Smokeless Tobacco: Never Used Alcohol Use Drinks/Week oz/Week Comments No Sex Assigned at Date Recorded Not on file as of this encounter Functional Status Functional Status Response Date of Assessment Does the patient have a hearing impairment: No 07/03/2018 as of this encounter Plan of Treatment Not on fileas of this encounter Visit Diagnoses Not on filein this encounter
--- NOTE | 2018-07-11 02:00 | ED GU-Male ---
General Stated Complaint: PULLED OUT CATH Source: patient Exam Limitations: no limitations History of Present Illness Date Seen by Provider: Jul 11, 2018 Time Seen by Provider: 01:43 Initial Comments Here with report of inadvertently pulling out his suprapubic catheter. Apparently this is been placed in the last week or so. Needs to have the catheter replaced. No other concerns. Timing/Duration: this morning Severity/Quality: moderate Location: suprapubic Radiation: none Associated Symptoms: No dysuria, No fever/chills Allergies and Home Medications Allergies Coded Allergies: No Known Drug Allergies (Unverified , 06/29/18) Home Medications Atorvastatin Calcium 80 Mg Tablet, 40 MG PO HS, (Reported) TAKES 1/2 (80MG) TABLET Bupropion HCl 75 Mg Tablet, 75 MG PO BID, (Reported) Cholecalciferol (Vitamin D3) 1,000 Unit Capsule, 1,000 UNIT PO DAILY, (Reported) Cyanocobalamin (Vitamin B-12) 1,000 Mcg Tablet, 2,000 MCG PO DAILY, (Reported) Duloxetine HCl 30 Mg Capsule.dr, 90 MG PO DAILY, (Reported) TAKES 3 (30MG) CAPSULES Ferrous Sulfate 324 Mg Tablet.dr, 324 MG PO TID, (Reported) Folic Acid 1 Mg Tablet, 1 MG PO DAILY, (Reported) Insulin Aspart 300 Units/3 Ml Solution, 25 UNITS SQ AC, (Reported) Insulin Determir 1,000 Units/10 Ml Soln, 25 UNITS SQ HS, (Reported) Loperamide HCl 2 Mg Capsule, 2 MG PO UD PRN for DIARRHEA, (Reported) Metformin HCl 500 Mg Tablet, 500 MG PO BID, (Reported) Metoprolol Tartrate 50 Mg Tablet, 25 MG PO BID, (Reported) TAKES 1/2 (50MG) TABLETS Mirtazapine 15 Mg Tablet, 15 MG PO HS, (Reported) Pantoprazole Sodium 20 Mg Tablet.dr, 20 MG PO BID, (Reported) Pregabalin 100 Mg Capsule, 100 MG PO TID, (Reported) Urea 85 Gm Cream..g., TP BID PRN for DRY FEET, (Reported) Patient Home Medication List Home Medication List Reviewed: Yes Review of Systems Review of Systems Constitutional: see HPI; No chills, No fever Respiratory: no symptoms reported Cardiovascular: no symptoms reported Genitourinary: see HPI, pain, other (suprapubic catheter stoma noted. stapled wound to area of stoma.) Past Yfstebn-Vxopni-Ctmpnw Hx Past Med/Social Hx: Reviewed Nursing Past Med/Soc Hx Patient Social History Type Used: Cigarettes Former Smoker, Quit: Oct 20, 2014 2nd Hand Smoke Exposure: No Recent Foreign Travel: No Contact w/Someone Who Travel: No Recent Hopitalizations: No Immunizations Up To Date Tetanus Booster (TDap): Less than 5yrs PED Vaccines UTD: No Date of Pneumonia Vaccine: Jul 17, 2015 Date of Influenza Vaccine: Jul 17, 2015 Seasonal Allergies Seasonal Allergies: No Past Medical History Surgeries: Yes (HEART CATH/ JAW SURGERY) Cardiac, Prostatectomy Respiratory: No (fmr smkr) Currently Using CPAP: No Currently Using BIPAP: No Cardiac: Yes (heart cath) High Cholesterol, Hypertension Neurological: Yes Neuropathy Reproductive Disorders: No Sexually Transmitted Disease: No HIV/AIDS: No Genitourinary: Yes Prostate Problems Gastrointestinal: Yes Chronic Diarrhea, C-Diff Musculoskeletal: Yes (CHRONIC NECK AND BACK PAIN ) Arthritis, Chronic Back Pain Endocrine: Yes Diabetes, Insulin dep Glaucoma Loss of Vision: Right Cancer: Yes Prostate What Type of Treatment Did You: Surgical Intervention Psychosocial: Yes Anxiety, Depression Integumentary: No Blood Disorders: No Adverse Reaction/Blood Tranf: No Family Medical History Reviewed Nursing Family Hx Family history: Hypertension 03 FATHER, Onset:40's - 50 03 MOTHER, Onset:40's - 50 History of - respiratory disease 03 MOTHER, Onset:50's - 60 Myocardial infarction 03 FATHER 03 MOTHER No Family History of: Abdominal aortic aneurysm [employer]'s disease Alcoholism Aphasia Cancer Cancer of colon Cataract Chest pain Congenital heart disease Congestive heart failure Cystic fibrosis Dementia Dysphagia Family history: Allergy Family history: Alzheimer's disease Family history: Arthritis Family history: Asthma Family history: Breast disease Family history: Cardiovascular disease Family history: Coronary thrombosis Family history: Diabetes mellitus Family history: Gastrointestinal disease Family history: Glaucoma Family history: Osteoporosis Family history: Thyroid disorder Headache Hearing loss Heart disease Hereditary disease History of - anemia History of - disorder History of drug abuse Human immunodeficiency virus (HIV) seropositivity Hypercholesterolemia Infertile Kidney disease Malignant neoplasm of lung Parkinson's disease Prostate cancer Psychotic disorder Seizure disorder Stroke Tuberculosis Visual impairment No Pertinent Family Hx, Heart Disease, Hypertension Physical Exam Vital Signs Capillary Refill : Height, Weight, BMI Height: 5'6.00" Weight: 147lbs. 5.0oz. [id number]; 23.5 BMI Method:Stated General Appearance: WD/WN, no apparent distress Cardiovascular: regular rate, rhythm, no murmur Respiratory: lungs clear, normal breath sounds Gastrointestinal: soft, tenderness, other (suprapubic catheter stoma noted with some stapled surgical wound around catheter site.) Neurologic/Psychiatric: alert, oriented x 3 Skin: normal color, warm/dry Progress/Results/Core Measures Suspected Sepsis SIRS Temperature: Pulse: Respiratory Rate: Blood Pressure / Mean: Results/Orders Vital Signs/I&O Capillary Refill : Progress Note : Progress Note Seen and evaluated. Stoma evaluated. Suprapubic catheter replaced with 18 Algerian Dawson catheter to the drainage system without difficulty. Discharge back to fdc with return precautions. Patient and family verbalize understanding instructions and agreement with plan. Departure Impression Primary Impression: Encounter for suprapubic catheter care Disposition: 01 HOME, SELF-CARE Condition: Improved Departure-Patient Inst. Decision time for Depature: 01:59 Referrals: [facility] (PCP/Family) Primary Care Physician Patient Instructions: How to Care for Your Suprapubic Urinary Catheter Add. Discharge Instructions: Continue catheter care as previously prescribed. Follow-up with your DrMercedes in a few days for recheck as needed. Return for other concerns as needed. DC LAGUNA MD Jul 11, 2018 02:00
--- OUTSIDE RECORDS SUMMARY | 2018-07-11 02:00 | XMS REPORT | Encounter Summary ---
Author Author [facility] Organization [facility] Address Unknown Phone Unavailable Care Team Providers Care Inspector Watch Assembly Name Role Phone Damien Caceres MD Unavailable Melo Adame MD Unavailable Unavailable Lulu Ozuna NP PCP Hilary Davenport RN Unavailable Unavailable Reason for Visit * Auth/Cert Status Reason Specialty Diagnoses / Referred By Referred To Procedures Contact Contact Diagnoses Stroke (HCC) Stroke Encounter Details Date Type Department Care Team Description 07/08/2018 Surgery Gastrointenstinal Clara Carolina MD ESOPHAGOGASTRODUODENOSCOP Endoscopy [address] [place] [address] [place] [address] [phone] Social History Tobacco Use Types Packs/Day Years [...] blood glucose Please follow up with the office aide at [facility] for follow up visit. Please follow [...] - 07/09/2018 2:57 PM CDT Phoned [facility] [phone] and gave report to Perla GOODMAN to receive patient. Informed her that patient to transport at 13:00. By 15:00 no transport arrived, phoned facility above and it was reported that ride was on the way. FSBS=69 checked prior to transport. Reported to science and operations officer for Neurology, juice x 2 given FSBS rechecked=87. Patient left unit via wheelchair and funeral driver who was given chart for transport. [...] MINUTE (07/09 1303) SpO2: 97 % (07/09 1303) O2 Delivery: None (Room Air) (07/09 0908) [...] Range Color,UA STRAW Turbidity,UA CLEAR CLEAR-CLEAR Specific Mccleary-Urine 1.005 1.003 - 1.035 pH,UA 8.0 5.0 [...] (Last 24 hours) Glucose: (!) 118 (07/09/18 0547) POC Glucose (Download): (!) 136 (07/09/18 1349) Radiology and other Diagnostics Review: Pertinent radiology [...] DKA resolved -A1c 17.4 on 07/01/2018 uncontrolled -FIRE LOOKOUT regimen: levemir 40 units QHS, Novolog 20-25 [...] will follow up with local endocrinology in [facility] Subjective Valdez Anthony is a 57 [...] Vital Signs: 24 Hour Range BP: 171/73 (09/20 0946) Temp: 37.5 C (99.5 F) (07/09 908) [...] Range Color,UA STRAW Turbidity,UA CLEAR CLEAR-CLEAR Specific Mccleary-Urine 1.005 1.003 - 1.035 pH,UA 8.0 5.0 [...] Diagnostics Review: none Barbi Deluna MD P 06 * Tata Daniels, RD - 07/09/2018 12:54 PM CDT CLINICAL NUTRITION Clinical Nutrition Follow-Up Summary NAME:Valdez Anthony :1960 AGE: 57 y.o. ADMISSION DATE: 07/01/2018 DAYS ADMITTED: LOS: 8 days Nutrition Assessment of Patient: Malnutrition Assessment: Does not meet criteria Current Oral Intake: Improving, Marginally Adequate Estimated Calorie Needs: 4571-3548 (25-28 kcal/kg desired wt) Estimated Protein Needs: 85-100 (1.2-1.4 g/kg desired wt) Oral Diet Order: Diabetic 2953-3310 Kcal/day (60 g Carb/meal, 30 g Carb/HS snack ), Rigby Thick Liquids Comments: 57 y.o. male with new onset Atrial Fibrillation with RVR, HTN, HLD, T2DM, Diabetic Retinopathy, OD Blindness, Neovascular Glaucoma, Prostate Cancer s/p prostatectomy, Urinary Retention s/p suprapubic catheter that was admitted at [facility] for urosepsis, DKA, A fib with [...] and underwent via video- swallow eval with CHEF BROILER OR FRY findings of moderate oropharyngeal dysphagia and baseline cognitive deficits. CHEF BROILER OR FRY working with pt and diet has advanced from nectar thick full liquids to 60g/meal consistent carb diet with nectar thick fluids. Per had 100% omelet for breakfast today (refused per RN) and sandwich ordered by for lunch. No current wt to assess; unable to actually see pt today as he was bundled in his blankets. Pt has orders for no sugar added Bard breakfast with nectar thick milk at breakfast and per RN throughout day as needed. Followed up with call center who says orders not printing to meal ticket. denies need for diet education Recommendation: Encourage good meal intakes at least 3 times per day with adequate protein source each meal on 60g/meal consistne carb diet. Offer no sugar added Bard Breakfast shakes made with nectar thick milk at breakfast and PRN. Intervention / Plan: Monitor po intake tolerance and adequacy monitor wt trends, labs, meds and GI status Nutrition Diagnosis: Altered GI function Etiology: swallowing and cognitive deficits Signs & Symptoms: CHEF BROILER OR FRY findings and nectar thick liquids with diabetic diet Goals: Patient to consume >75% of meals/supplements Time Frame: Within 72 Hours Status: Met Patient to consume >85% of meals/supplements Time Frame: Throughout Stay Tata Daniels, MS,RD, LD, [facility] *[id number] * James Shook, DO - [...] prostate cancer s/p prostatectomy who presents to [facility] as a transfer from [facility] for stroke. OSH course: Pt presented [...] tPA given unclear window. Was transferred to [facility] for evaluation. Was given ativan 2mg [...] EF, LA size 3.5cm, no thrombus - CHEF BROILER OR FRY following -> recommend regular diet w/ nectar [...] TIDAC >pt to f/u w/ endo @ [facility] outpt basis -> goal BS 100-140 fasting [...] -> develop stroke and was transferred to [facility] - Was placed on PO cardizem [...] 07/01 - 07/05 Dispo: discharge today to [facility] @ 1300 Patient was seen and discussed [...] Range Color,UA STRAW Turbidity,UA CLEAR CLEAR-CLEAR Specific Mccleary-Urine 1.005 1.003 - 1.035 pH,UA 8.0 5.0 [...] (Last 24 hours): FSBS (Manual): 96 (07/08/18 2159) Glucose: (!) 118 (07/09/18 0547) POC Glucose (Download): (!) 158 (07/09/18 1140) Radiology and Other Diagnostics Review: Pertinent radiology reviewed. James Shook, DO Pager Associated attestation - Keyshawn Quiñones [...] prostate cancer s/p prostatectomy who presents to [facility] as a transfer from [facility] for stroke. OSH course: Pt presented [...] tPA given unclear window. Was transferred to [facility] for evaluation. Was given ativan 2mg [...] EF, LA size 3.5cm, no thrombus - CHEF BROILER OR FRY following -> recommend regular diet w/ nectar [...] TIDAC >pt to f/u w/ endo @ [facility] outpt basis -> goal BS 100-140 [...] -> develop stroke and was transferred to [facility] - Was placed on PO cardizem [...] fluids, replace lytes PRN, ada diet Ppx: [id number] Heparin Sq Q8, SCDs Code: Full Dispo: [...] Testing: (Last 24 hours): Glucose: 79 (07/08/18 0553) POC Glucose (Download): 75 (07/08/18 4302) Radiology and Other Diagnostics Review: Pertinent radiology reviewed. James Shook, Pager Associated attestation - Keyshawn Quiñones MD [...] multiple polyps removed. - Await pathology results. Roberto Dutta GI fellow Pager [phone] 07/08/2018 3:39 PM * Eloy Higgins RN [...] or concerns after your procedure please call [phone] M-F 8am-5:00 pm. After 5:00 pm, holidays or weekends call [phone] and ask for the GI Doctor science and operations officer. * Barbi Deluna MD - 07/08/2018 12:10 [...] DKA resolved -A1c 17.4 on 07/01/2018 uncontrolled -FIRE LOOKOUT regimen: levemir 40 units QHS, Novolog 20-25 [...] will follow up with local endocrinology in [facility] Subjective Valdez Anthony is a 57 y.o. male. Pt has been sleepy today. He is NPO for EGD/ colonoscopy and had hypoglycemia this am. ROS: no chest pain, SOB, N&V. Medications Scheduled Meds: [MAR Hold] amLODIPine (NORVASC) tablet 5 mg 5 mg Oral QDAY [MAR Hold] aspirin chewable tablet 81 mg 81 mg Oral QDAY [MAR Hold] atorvastatin (LIPITOR) tablet 40 mg 40 mg Oral QHS [MAR Hold] heparin (porcine) PF syringe 5,000 Units 5,000 Units Subcutaneous Q8H [MAR Hold] insulin aspart U-100 (NOVOLOG FLEXPEN) injection PEN 0-7 Units 0-7 Units Subcutaneous ACHS [MAR Hold] insulin aspart U-100 (NOVOLOG FLEXPEN) injection PEN 5 Units 5 Units Subcutaneous TID w/ meals [START ON 07/09/2018] insulin glargine (LANTUS SOLOSTAR, BASAGLAR) injection PEN 20 Units 20 Units Subcutaneous QDAY [MAR Hold] lisinopril (PRINIVIL; ZESTRIL) tablet 40 mg 40 mg Oral QDAY [MAR Hold] metoprolol tartrate (LOPRESSOR) tablet 12.5 mg 12.5 mg Oral BID [MAR Hold] nortriptyline (PAMELOR) capsule 10 mg 10 mg Oral QHS [MAR Hold] polyethylene glycol 3350 (MIRALAX) packet 17 g 1 packet Oral QDAY [MAR Hold] QUEtiapine (SEROQUEL) tablet 25 mg 25 mg Oral BID [Dec] senna/docusate (SENOKOT-S) solution 10 mL 10 mL Oral BID Continuous Infusions: PRN and Respiratory Meds:[DEC Hold] acetaminophen Q6H PRN, [DEC Hold] bisacodyl QDAY [...] s/p suprapubic catheter that was admitted at [facility] for urosepsis, DKA, A fib with RVR [...] PROGRESS NOTE Patient Name: Valdez Anthony Room/Bed: OK9172/01 Admitting Diagnosis: Stroke Past Medical History: Diagnosis [...] occasionally in community. Prior Function Level Of Butler: Independent with ADLs and functional transfers Lives [...] Bed mobility, Ambulation, Stairs Therapist: ERIC Whalen/Cesia [id number] Date: 07/08/2018 * Whit Guadarrama MS,CCC-CHEF BROILER OR FRY - 07/08/2018 9:38 AM CDT SPEECH-LANGUAGE PATHOLOGY NO TREATMENT NOTE Chart reviewed and discussed in interdisciplinary rounds. Pt NPO for colonoscopy this date. CHEF BROILER OR FRY will continue to follow. Therapist: Whit Guadarrama MS,CCC-CHEF BROILER OR FRY [id number] Date: 07/08/2018 * Barbi Deluna MD - [...] DKA resolved -A1c 17.4 on 07/01/2018 uncontrolled -FIRE LOOKOUT regimen: levemir 40 units QHS, Novolog 20-25 [...] will follow up with local endocrinology in [facility] Chrissy Anthony is a 57 y.o. male. Pt [...] Signs: 24 Hour Range BP: 156/52 (07/07 1451) Temp: 36.9 C (98.4 F) (07/07 1451) Pulse: 76 (07/07 1451) Respirations: 18 PER MINUTE (07/07 145) SpO2: 93 % (07/07 1451) O2 Delivery: [...] Diagnostics Review: none Barbi Deluna MD P [id number] * Aria Mccoy, PT - 07/07/2018 1:39 [...] prostate cancer s/p prostatectomy who presents to [facility] as a transfer from [facility] for stroke. OSH course: Pt presented to [...] tPA given unclear window. Was transferred to [facility] for evaluation. Was given ativan 2mg [...] EF, LA size 3.5cm, no thrombus - CHEF BROILER OR FRY following -> recommend regular diet w/ nectar [...] > pt to f/u w/ endo @ [facility] outpt basis -> goal BS 100-140 [...] -> develop stroke and was transferred to [facility] - Was placed on PO cardizem [...] clear liquid/ada diet for procedure tomorrow Ppx: [id number] Heparin Sq Q8, SCDs Code: Full Dispo: [...] at 07/07/18 1310 Last data filed at 07/07/18 0944 Gross per 24 hour Intake 2650 ml [...] provide intervention as indicated. Irma Blakely, OTR/L [id number] * Whit Guadarrama MS,CCC-CHEF BROILER OR FRY - 07/07/2018 9:50 AM CDT SPEECH-LANGUAGE PATHOLOGY NO TREATMENT NOTE Chart reviewed and discussed in interdisciplinary rounds. Pt NPO for colonoscopy this date. CHEF BROILER OR FRY will continue to follow. Therapist: Whit Guadarrama MS,CCC-CHEF BROILER OR FRY [id number] Date: 07/07/2018 * Shira Welch RN - 07/07/2018 5:22 AM CDT Pt [...] DKA resolved -A1c 17.4 on 07/01/2018 uncontrolled -FIRE LOOKOUT regimen: levemir 40 units QHS, Novolog 20-25 [...] will follow up with local endocrinology in [facility] Subjective Valdez Anthony is a 57 [...] Color,UA YELLOW Turbidity,UA 2+ (A) CLEAR-CLEAR Specific Mccleary-Urine 1.017 1.003 - 1.035 pH,UA 5.0 5.0 [...] (Last 24 hours) Recent Labs 07/05/18 1637 07/05/18201407/05/18 2137 07/05/18 2209 07/06/18 0235 07/06/18 0729 07/06/18 1149 07/06/18 1436 GLUPOC 79 81 77 89 132* 130* 153* 196* Radiology and other Diagnostics Review: none Barbi Deluna MD P 0688 * James Shook, DO - 07/06/2018 2:53 PM CDT Formatting of [...] prostate cancer s/p prostatectomy who presents to [facility] as a transfer from [facility] for stroke. OSH course: Pt presented [...] tPA given unclear window. Was transferred to [facility] for evaluation. Was given ativan 2mg [...] EF, LA size 3.5cm, no thrombus - CHEF BROILER OR FRY following -> recommend regular diet w/ nectar [...] > pt to f/u w/ endo @ [facility] outpt basis -> goal BS 100-140 [...] fluids, replace lytes PRN, ADA diet Ppx: [id number] Heparin Sq Q8, SCDs Code: Full Dispo: [...] asked these questions and provided answers by CHEF BROILER OR FRY) Speech: slurred speech w/ comprehension intact to [...] Color,UA YELLOW Turbidity,UA 2+ (A) CLEAR-CLEAR Specific Mccleary-Urine 1.017 1.003 - 1.035 pH,UA 5.0 5.0 [...] of diabetes, HTN, who was admitted to OSH on 06/29/18 with urosepsis and DKA and found to be in Afib at that time and started on anticoagulation, which was then held, after which he had acute onset of L sided weakness and aphasia on 07/01/18 (did not get IV tPA due to out of window), transferred to [facility] and found to have R M1 [...] established Keyshawn Quiñones MD * Whit Guadarrama MS,CCC-CHEF BROILER OR FRY - 07/06/2018 12:14 PM CDT Formatting of this note may be different from the original. SPEECH-LANGUAGE PATHOLOGY COGNITIVE-COMMUNICATION ASSESSMENT EVALUATION SUMMARY Pt seen for cognitive communication evaluation utilizing the Converse Cognitive Assessment (MOCA) as well as other [...] address dysphagia and cognitive communication concerns. Ongoing CHEF BROILER OR FRY at next level of care. Consistent supervision [...] or city, stating we are located at [facility]. Verbal Problem Solving Comments: Functional problem solving: [...] baseline to call for assistance if needed. Converse Cognitive Assessment (MoCA), Version 7.1 Subtest / [...] s/p suprapubic catheter that was admitted at [facility] for urosepsis, DKA, A fib with RVR [...] the posterior medial left temporal lobe. 3. Adventism of flow void within the right M1 [...] spoon/cup and pureed /mech soft solids w/ CHEF BROILER OR FRY only w/ less than 5% s/s of [...] from respiratory status changes. Therapist: Whit Guadarrama MS,CCC-CHEF BROILER OR FRY [id number] Date: 07/06/2018 * Aria Mccoy, PT - [...] s/p suprapubic catheter that was admitted at [facility] for urosepsis, DKA, A fib with RVR [...] spoon/cup and pureed /mech soft solids w/ CHEF BROILER OR FRY only w/ less than 5% s/s of [...] speech therapy post acute hospitalization. Therapist: Cesia Hatfield/OTONIEL-CHEF BROILER OR FRY (Pager [phone]; Voalte: [phone]) Date: 07/05/2018 * Darcy Goodrich MD - [...] s/p suprapubic catheter that was admitted at [facility] for urosepsis, DKA, A fib with RVR [...] EF, LA size 3.5cm, no thrombus - CHEF BROILER OR FRY to eval and treat - Video swallow [...] - Rocephin 07/01 - 07/05 FEN: - Rigby thick PO fluids - Daily BMP - [...] Darcy Goodrich MD Neurology PGY-4 Pager Neurology science and operations officer pager [phone] Associated attestation - Diego Gutierrez MD - [...] DKA resolved -A1c 17.4 on 07/01/2018 uncontrolled -FIRE LOOKOUT regimen: levemir 40 units QHS, Novolog 20-25 [...] will follow up with local endocrinology in [facility] This is an individual we are [...] s/p suprapubic catheter that was admitted at [facility] for urosepsis, DKA, A fib with RVR [...] EF, LA size 3.5cm, no thrombus - CHEF BROILER OR FRY to eval and treat - Video swallow [...] - Rocephin 07/01 - 07/05 FEN: - Rigby thick PO fluids - Daily BMP - [...] 20,000 Units/ sodium bicarbonate 650 mg(#) PRN (Second Baller from Rx) Vital Signs: Last Filed in [...] the posterior medial left temporal lobe. 3. 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 Munira Ortega DO Pager [phone] Associated attestation - Diego Gutierrez MD - [...] anemia, also received another [place] [facility] [place] [facility] again without a clear upper GI etiology. From a stroke perspective: He is less restless, he moves both upper and lower extremities about equally, tolerating p.o. well, will arrange for rehab on Friday. Staff name: Diego Gutierrez MD Date: 07/04/2018 * Nathanael Clemens RN - 07/04/2018 2:41 PM CDT 1219 [...] and follow commands; Will continue to monitor. 1922 patient's reported that patient "felt sweaty", upon assessment, patient alert to person, follows commands, diaphoretic asking for " a drink of cold water" BS 44 mg/dl. 25 g (50 ml) D50W IV administer IV per protocol. Dr Foley with neurology notified. 1944 BS 164 mg/dl * Abhishek Dumont, RT [...] DKA resolved -A1c 17.4 on 07/01/2018 uncontrolled -FIRE LOOKOUT regimen: levemir 40 units QHS, Novolog 20-25 [...] will follow up with local endocrinology in [facility] Anemia This patient is having ongoing [...] 100 mL IV drip (std conc) Stopped (07/04/18438) PRN and Respiratory Meds:acetaminophen Q6H PRN, bisacodyl QDAY PRN, hydrALAZINE Q6H PRN, labetalol (NORMODYNE; TRANDATE) injection Q6H PRN, pancrelipase 20,000 Units/ sodium bicarbonate 650 mg(#) PRN (Second Baller from Rx) Objective Vital Signs: Last Filed Vital Signs: 24 Hour Range BP: 107/56 (07/04 442) Temp: 37.4 C (99.3 F) (07/04 442) Pulse: 110 (07/04 0213) Respirations: 18 PER MINUTE (07/04 442) SpO2: [...] Screen NEG Electronic Crossmatch YES Unit Number [id number] Blood Component Type RBC,CPDA,LEUKO REDUCED Unit Division [...] Review: none John Chaudhry MD * America Barcenas, MAXINE - 07/03/2018 11:21 PM CDT Formatting of this note may be different from the original. Results for VALDEZ ANTHONY ( ) as of 07/03/2018 23:20 Ref. Range 07/03/2018 22:02 Hemoglobin Latest Ref Range: 13.5 - 16.5 GM/DL 6.8 (L) Results given to Dr. Foley. New orders to transfuse 1 unit of RBCs. * Alonzo Watt APRN-RADIOSONDE SPECIALIST - 07/03/2018 4:13 PM CDT Formatting of this note may be different from the original. Neurology Progress Note Admission Date: 07/01/2018 LOS: 2 days Assessment: Mr. Caal a 57 y.o.male with new onset Atrial Fibrillation with RVR, HTN , HLD, T2DM, Diabetic Retinopathy, OD Blindness, Neovascular Glaucoma, Prostate Cancer s/p prostatectomy, Urinary Retention s/p suprapubic catheter that was admitted at [facility] for urosepsis, DKA, A fib with RVR [...] EF, LA size 3.5cm, no thrombus - CHEF BROILER OR FRY to eval and treat - Video swallow [...] - UA negative for UTI FEN: - Rigby thick PO fluids - Daily BMP - [...] 20,000 Units/ sodium bicarbonate 650 mg(#) PRN (Second Baller from Rx) Vital Signs: Last Filed in [...] the posterior medial left temporal lobe. 3. Adventism of flow void within the right M1 [...] s/p suprapubic catheter that was admitted at [facility] for urosepsis, DKA, A fib with RVR [...] lift to chair for weekend, with staff radiation therapist. Dicussed mobility recommendation with bedside RN. RECOMMENDATIONS: PT Discharge Recommendations PT Discharge Recommendations: Inpatient Setting Therapist: Dolores Sampson, PT Date: 07/03/2018 * Mary Grace Stanton OT - 07/03/2018 1:33 PM CDT Formatting of this note may be different from the original. OCCUPATIONAL THERAPY PROGRESS NOTE Patient Name: Valdez Anthony Room/Bed: JO5530/01 Admitting Diagnosis: Stroke Past Medical History: Diagnosis [...] non verbal with left hemiplegia. Transferred to [facility]. R MCA stroke s/p thrombectomy, stent 07/01. [...] occasionally in community. Prior Function Level Of Butler: Independent with ADLs and functional transfers Lives [...] early to be determined Therapist: Mary Grace Stanton OT Date: 07/03/2018 * Jose Hubbard - 07/03/2018 [...] suprapubic catheter that was admitted at [facility] for urosepsis, DKA, A fib with [...] Fed Thin Liquid: 1 oz, Cup, Straw Rigby Thick Liquid: Cup, Straw Honey Thick Liquid: [...] spoon/cup and pureed /mech soft solids w/ CHEF BROILER OR FRY only w/ less than 5% s/s of aspiration. Goal : Pt will participate in cognitive-communication assessment given mod cues. Therapist: BIANCA Lamb, Cesia/CCC-CHEF BROILER OR FRY Voalte: [id number] Date: 07/03/2018 * Alex Medel RN - [...] no feeding at this time. Alonzo Watt, RADIOSONDE SPECIALIST, said the video swallow results are back [...] PM CDT Patient arrived to room # (2280) via bed accompanied by RN. Patient transferred [...] groin , will continue to monitor. * Norachristie Cuong - 07/02/2018 9:20 PM CDT Pt transported to room [facility] via bed, RN x2, VSS. Pt 2100 BG (59) insulin paused tube feeds were disconnected in transport, RN reconnected tube feed and delivered 40 bolus via corpak will recheck BG in 15 min. Pt asymptomatic at this time. Will continue to monitor. 2135: Pt BG (49), neuro stroke resident paged, [...] ASSESSMENT NOTE Patient Name: Valdez Anthony Room/Bed: [id number] Admitting Diagnosis: Stroke Past Medical History: Diagnosis [...] non verbal with left hemiplegia. Transferred to [facility]. MCA stroke s/p thrombectomy, stent 07/01. Precautions: [...] occasionally in community. Prior Function Level Of Butler: Independent with ADLs and functional transfers Lives [...] L spontaneously. Mitt and soft wrist restraints, Venus strap replaced end of session and bed [...] s/p suprapubic catheter that was admitted at [facility] for urosepsis, DKA, A fib with RVR [...] Sampson, PT Date: 07/02/2018 * Alonzo Watt APRN-RADIOSONDE SPECIALIST - 07/02/2018 1:20 PM CDT Vascular Neurology Interval Note Valdez Caal a 57 y.o.maleis a 57 y.o. male with new onset Atrial Fibrillation with RVR, HTN, HLD, T2DM, Diabetic Retinopathy, OD Blindness, Neovascular Glaucoma, Prostate Cancer s/p prostatectomy, Urinary Retention s/p suprapubic catheter that was admitted at [facility] for urosepsis, DKA , A fib with [...] from the ICU. Updated plan: - NPO, CHEF BROILER OR FRY to monitor swallow - Protein shake supplements - f/u on Blood Cxr's - Continue insulin gtt, consider endocrine consult - SBP <140 Alonzo Watt APRN-RADIOSONDE SPECIALIST Vascular Neurology [id number] Associated attestation - Diego [...] is restart AC in 10 days, needs CHEF BROILER OR FRY re-eval for get cleared otherwise PEG, Glu control Staff name: Diego Gutierrez MD Date: 07/03/2018 * Anthony Sparrow RN - 07/02/2018 10:44 AM CDT Two RN's [...] reports that pt completed videoswallow evaluation at [facility], which she states yielded recommendations for [...] Continue Treatment 3-5x/week. Prognosis: Fair NOMS Dysphagia Ratin8-Mkwynyfxfh-Moueuy Dysphagia -Not able to swallow safely by mouth for nutrition/hydration but may take some consistency w/ consistent max cues in therapy only. Alternative method of feeding required. Results Reported to Physician: Yes Objective* Relevant Med Background: 57 y.o. male with A-Fib (on Coumadin FIRE LOOKOUT), IDDM, Prostate CA, OD blindness, HLD and [...] the posterior medial left temporal lobe. 3. Adventism of flow void within the right M1 [...] in videoswallow evaluation given mild-mod cues. Therapist:BIANCA Lamb L/CCC-CHEF BROILER OR FRY Voalte: [id number] Date:07/02/2018 * Ciarra Valentino DO - 07/02/2018 [...] admitted at [facility] for urosepsis, DKA , A fib [...] involving the medial L temporal lobe. 3. Adventism of flow void in the R M1. - Stroke Risk Factor Modification -LDL 44. Goal <70. Continue well logging mud analysis captain atorvastatin 40mg -A1c 17.4. Goal <7.0 -Continue ASA. Will discuss timing of AC given Afib. -Goal BP <140 - PT/OT, Speech Consult - Consult to Rehab - Neuro-ICU monitoring, neurochecks q 1 hrs Encephalopathy -s/p Flumazenil 0.5mg x 2 -07/01 ABG 7.34/39/102/20.6 -07/01 EEG: Diffuse slowing indicative of encephalopathy. No seizures or epileptiform activity. -No sedation needs -Holding well logging mud analysis captain Bupropion, Duloxetine Sedation/Pain Management: -s/p ativan 2mg and fentanyl 25mcg -s/p flumazenil 0.5 mg x 3 -No sedation needs at this time Cardiac: Afib with RVR -[id number]: 4: 4.8% Risk for stroke and 6.7% [...] - Hydralazine prn SBP >140 - Continue well logging mud analysis captain Lisinopril 20mg HLD - LDL 44. Goal LDL <70. Continue well logging mud analysis captain atorvastatin 20mg Respiratory: Hypoxia likely 2/2 [...] Cx Pending -Continue CTX 1g q24h (Day 4/7) -F/u OSH Blood Cultures -F/u repeat Blood Cx -Aim for normothermia, Temp <38.3 celsius, normothermia protocol if febrile Renal/: Prostate CA s/p resection 2014, Urinary Retention / to stricture s/ p suprapubic catheter -Urology [...] - Blood glucose goal 100-180mg/dl - Holding well logging mud analysis captain Levemir 16 units and Novolog 5 [...] (07/02 600) Temp: 37 C (98.6 F) (07/020) Pulse: 117 (07/02 600) Respirations: 22 PER MINUTE (07/02 600) SpO2: 99 % (07/02 600) O2 Delivery: None (Room Air) (07/02 600) Height: 167.6 cm (66") (07/01 1445) Weight: 71.6 kg (157 lb 13.6 oz) (07/01 1445) BP: (113-175)/(7-98) Temp: [36.2 C (97.2 F)-37 C (98.6 F)] Pulse: [58-117] Respirations: [9 PER MINUTE-22 PER MINUTE] SpO2: [94 %-100 %] O2 Delivery: None (Room Air) Intensity Pain Scale (Self Report): (not recorded) Vitals: 07/01/181444 Weight: 71.6 kg (157 lb 13.6 oz) Artificial airway: None Ventilator/ Respiratory Therapy: No Vent weaning trial: Not applicable Lines: Peripheral Line Drains: Suprapubic Catheter Critical Care Vitals: ICP Monitoring: Hemodynamics/Oxycalcs: Intake/Output Summary: (Last 24 hours) Intake/Output Summary (Last 24 hours) at 07/02/18657 Last data filed at 07/02/18599 Gross per 24 hour Intake 1260.08 ml Output 1950 ml Net -689.92 ml Physical Exam: Blood pressure 147/58, pulse 117, temperature 37 C (98.6 F), height 167.6 cm (66"), weight 71.6 kg (157 lb 13.6 oz), SpO2 99 %. Pepperell coma score: E: 4 - Opens eyes [...] (Last 24 hours) Glucose: (!) 127 (07/02/18 8712) POC Glucose (Download): (!) 142 (07/02/18 6136) Lab Review: 24-hour labs: Results for orders [...] Range Color,UA STRAW Turbidity,UA CLEAR CLEAR-CLEAR Specific Mccleary-Urine 1.018 1.003 - 1.035 pH,UA 5.0 5.0 [...] O2 Sat-Arterial 97.5 95 - 99 % Qzoemaidqro-GEV-Jkz 20.6 (L) 21 - 28 MMOL/L POC [...] Pertinent radiologic and diagnostic procedures reviewed. Ciarra Valentino, Date: 07/02/[phone] Associated attestation - Veronica Doyle MD - [...] urosepsis and suprapubic catheter placed at [facility] secondary to urinary retention and inability to [...] outpatient follow up Jerry Baker MD Urology science and operations officer Please page science and operations officer with concerns * Jaycob Ramos DO - [...] Doyle MD Date: 07/01/2018 * Whit Guadarrama MS,CCC-CHEF BROILER OR FRY - 07/01/2018 1:36 PM CDT SPEECH-LANGUAGE PATHOLOGY NO TREATMENT NOTE Order received and appreciated for clinical swallow evaluation. Chart reviewed and made contact with RN. Pt currently with another provider and with decreased level of arousal/responsiveness following ativan administration in the helicopter. CHEF BROILER OR FRY will hold at this time per discussion with RN. CHEF BROILER OR FRY will follow up and will complete evaluation when pt medically appropriate. Addendum 15:20: pt remains somnolent and unable to sustain adequate level of arousal to participate in clinical swallow evaluation per discussion with RN. CHEF BROILER OR FRY will return to complete evaluation when appropriate. Chart review: Mr. Anthony presented to [facility] on 06/29 with uro-sepsis and DKA. [...] suggesting smaller completed infarct. Therapist: Whit Guadarrama MS,[facility]-CHEF BROILER [facility] FRY [id number] Date: 07/01/2018 * Mari Mullen RN - [...] (98.4 F) (07/08 114) Pulse: 65 (07/08 1141) Respirations: 16 PER MINUTE (07/08 114) BP: 111/51 (07/08 114) General appearance: alert, cooperative and no distress [...] [MAR Hold] amLODIPine (NORVASC) tablet 5 mg [MAR Hold] aspirin chewable tablet 81 mg [MAR Hold] atorvastatin (LIPITOR) tablet 40 mg [MAR Hold] bisacodyl (DULCOLAX) rectal suppository 10 mg [MAR Hold] heparin (porcine) PF syringe 5,000 Units [MAR Hold] hydrALAZINE (APRESOLINE) injection 10-20 mg [MAR Hold] insulin aspart U-100 (NOVOLOG FLEXPEN) injection PEN 0-7 Units [MAR Hold] insulin aspart U-100 (NOVOLOG FLEXPEN) injection PEN 5 Units [MAR Hold] insulin glargine (LANTUS SOLOSTAR, BASAGLAR) injection PEN 25 Units [MAR Hold] labetalol (NORMODYNE) injection 10 mg [MAR Hold] lisinopril (PRINIVIL; ZESTRIL) tablet 40 mg [MAR Hold] metoprolol tartrate (LOPRESSOR) tablet 12.5 mg [MAR Hold] nortriptyline (PAMELOR) capsule 10 mg [MAR Hold] polyethylene glycol 3350 (MIRALAX) packet 17 g [MAR Hold] QUEtiapine (SEROQUEL) tablet 25 mg [MAR Hold] senna/docusate (SENOKOT-S) solution 10 mL Review [...] s/p suprapubic catheter that was admitted at [facility] for urosepsis, DKA, A fib with RVR [...] Factor Modification -Lipid Panel and A1c. Continue well logging mud analysis captain atorvastatin 40mg -TTE -Start ASA. -Goal BP <140 - PT/OT, Speech Consult - Consult to Rehab - Neuro-ICU monitoring, neurochecks q 1 hrs Encephalopathy likely 2/2 to Ativan, Fentanyl -s/p Flumazenil 0.5mg x 2 -ABG -CT Head w/out contrast -No sedation needs -Holding well logging mud analysis captain Bupropion, Duloxetine Sedation/Pain Management: -s/p ativan 2mg and fentanyl 25mcg -s/p flumazenil 0.5 mg x 2 -No sedation needs at this time Cardiac: Afib with RVR -[id number]: 4: 4.8% Risk for stroke and 6.7% [...] due to bradycardia at OSH - Holding well logging mud analysis captain Lisinopril 20mg and Metoprolol 25mg BID HLD - Lipid Panel. Goal LDL <70. Continue well logging mud analysis captain atorvastatin 20mg Respiratory: DHRUV -RA - [...] s/ p suprapubic catheter, -Urology followed at [facility] s/p suprapubic catheter placement 06/29 - NPO, NS IVF at 75ml/hr - Aim for normovolemia Endocrine: T2DM, DKA - Presented at OSH with CO2 of 8, BG in 600s, started on Insulin ggt d/c 07/01 - 07/01 POC glucose 169 - Repeat BMP, BHB - Start Insulin ggt - Blood glucose goal 100-180mg/dl - Holding well logging mud analysis captain levemir, novolog FEN: - IVF: NPO, [...] p suprapubic catheter that was admitted at [facility] for urosepsis, DKA, A fib with RVR requiring cardizem ggt that was transferred for concerns for stroke. Admitted on 06/28 to [facility] with week history of cough, SOB. Found to have UTI with urosepsis and DKA with CO2 of 8, BG in 600s. Admitted to the ICU at [facility]. Started on CTX and Insulin ggt. [...] language) 2=neither correct 2 1c. 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 Ciarra Valentino, Date: 07/01/[phone] * Edvin Juarez, MAT WEAVER-RADIOSONDE SPECIALIST - 07/01/2018 12:03 PM CDT Formatting of [...] Active Problem List Diagnosis Date Noted Stroke ([facility]) 07/01/2018 HTN (hypertension) 01/15/2016 Urinary retention with incomplete bladder emptying 01/15/2016 Diabetes ([facility]) 01/15/2016 Proliferative diabetic retinopathy(362.02) 01/14/2013 Neovascular glaucoma [...] Lab/Radiology/Other Diagnostic Tests: Labs: Pertinent labs reviewed GILLIAN Nelson Pager [phone] in this encounter Procedure Notes * Amy Velasquez MD - 07/01/2018 8:07 PM CDT Procedure(s): EEG AWAKE & ASLEEP EEG REPORT Valdez Anthony [id number] DATE OF STUDY 07/01/18 PATIENT HISTORY: This [...] mL IVPB (MB+), 1 g, Intravenous, PRN (Second Baller from Rx) AND Ionized Calcium, , , [...] 250 mL IVPB, 8 mmol, Intravenous, PRN (Second Baller from Rx) AND Phosphorus, , , PRN AND Notify Physician, , , Ongoing, Ciarra Valentino DO TECHNICAL: This is EEG was intended to [...] here. EGD showed s/p polypectomy. Transferred to [facility] for stroke. Hgb dropped from 10.1 [...] She also does mention that at the [facility] the patient did have an upper endoscopy [...] retention with incomplete bladder emptying 01/15/2016 Diabetes ([facility]) 01/15/2016 Resolved Ambulatory Problems Diagnosis Date Noted Sepsis ([facility]) 01/15/2016 Severe sepsis ([facility]) 01/15/2016 LATISHA (acute kidney injury) ([facility]) 01/15/2016 High anion gap metabolic acidosis 01/15/2016 Past Medical History: Diagnosis Date Arthritis DM (diabetes mellitus) ([facility]) DM eyes Glaucoma Hypertension Social History Social [...] Date Noted Anemia 07/03/2018 Agitation 07/03/2018 Stroke ([facility]) 07/01/2018 HTN (hypertension) 01/15/2016 Urinary retention with incomplete bladder emptying 01/15/2016 Diabetes ([facility]) 01/15/2016 Proliferative diabetic retinopathy(362.02) 01/14/2013 Neovascular glaucoma [...] Color,UA YELLOW Turbidity,UA 2+ (A) CLEAR-CLEAR Specific Mccleary-Urine 1.017 1.003 - 1.035 pH,UA 5.0 5.0 [...] DKA resolved -A1c 17.4 on 07/01/2018 uncontrolled -FIRE LOOKOUT regimen: levemir 40 units QHS, Novolog 20-25 [...] will follow up with local endocrinology in [facility] Patient was seen and discussed with [...] with diabetes in 1994. He follows with office aide at [facility]. At home, he was taking Levemir 40 units once a day, NovoLog 20-25 units with meal, metformin 1000 mg twice a day. His states that office aide prescribe NovoLog 40 units 3 times a [...] Pulses: 2+ Lab: Recent Labs 07/01/18 1250 07/02/18 0415 07/03/18 0411 NA 138 140 140 K 4.3 4.2 3.5 CL 113* 113* 110 CO2 19* 20* 21 GAP 6 7 9 BUN 13 12 11 CR 0.95 0.88 1.11 GLU 166* 127* 135* CA 7.9* 8.5 8.8 ALBUMIN 2.8* -- -- MG 2.0 1.9 -- PO4 2.6 2.6 -- HGBA1C 17.4* -- -- Recent Labs 07/01/18 1250 07/02/18 0415 07/03/18 0411 WBC 9.5 10.3 13.4* HGB 8.7* 8.8* [...] reviewed. Brenda Larios Endocrine Fellow Pager # [phone] 07/03/2018 Associated attestation - John Chaudhry MD [...] make the changes in therapy. * Tata Daniels, RD - 07/03/2018 1:11 PM CDT Associated [...] thick full liquids today) Estimated Calorie Needs: 8944-8171 (25-28 kcal/kg desired wt) Estimated Protein Needs: 85-100 (1.2-1.4 g/kg desired wt) Oral Diet Order: Full Liquid, Rigby Thick Liquids Current EN Order: Isosource 1.5 [...] suprapubic catheter that was admitted at [facility] for urosepsis, DKA, A fib with [...] 07/02. Pt pulled Corpak today despite mits. CHEF BROILER OR FRY evaluated pt via video-swallow with moderate oropharyngeal dysphagia and baseline cognitive deficits. CHEF BROILER OR FRY recommending nectar thick full liquids; diet ordered. [...] meal. Offer No Sugar Added "Light Start Bard Breakfast Essentials" shakes made with nectar thick [...] Intervention / Plan: assessed nutritional status; ordered Bard Breakfast shakes with nectar thick milk PRN monitor po intake, adequacy, tolerance and advancement per CHEF BROILER OR FRY findings and recs monitor wt trends, labs, meds and GI status Nutrition Diagnosis: Altered GI function Etiology: swallowing and cognitive deficits Signs & Symptoms: CHEF BROILER OR FRY findings and recs for nectar thick full liquids with supervision Goals: Patient to consume >75% of meals/supplements Time Frame: Within 72 Hours Tata Daniels, MS,RD, LD, [facility] *[id number] * Damian Hensley MD - [...] resection, who was admitted upon transfer from [facility] on 07/01/2018 after originally presenting there with sepsis determined to be secondary to UTI complicated by DKA and Atrial Fibrillation and then apparent AMS. The [facility] where CTA showed right M1 occlusion. He [...] complexity and goals with PT, OT, and CHEF BROILER OR FRY for acute inpatient rehabilitation; however, he is [...] Please have primary SWCM discuss with [facility] quality compliance coordinator according to the patient 's (and/or their family's) preference for placement. Thank you for this consultation. Please call with questions/concerns. I personally performed jacobs portions of the history and exam. I discussed the case with the resident and concur with the resident's documentation of history, physical assessment and treatment plan unless otherwise noted. Damian Hensely MD Physical Medicine & Rehabilitation Consult Note [...] a 57 y.o. male admitted to [facility] on 07/01/2018 with the following [...] hours while supine in bed, pressure relief [id number] in seated position, PRAFOs for pressure relief and to prevent contractures Jaycob Ramos, DO Rehab Consult Pager: [phone] History of Present Illness Hospital Course: Valdez Anthony is a 57 y.o. male with new onset Atrial Fibrillation with RVR, HTN , HLD, T2DM, Diabetic Retinopathy, OD Blindness, Neovascular Glaucoma, Prostate Cancer s/p prostatectomy, Urinary Retention s/p suprapubic catheter that was admitted at [facility] for urosepsis, DKA, A fib with RVR [...] urosepsis. Rehab consulted for post acute rehab/placement. FIRE LOOKOUT pt was independent and lived at home [...] Units/ sodium bicarbonate 650 mg(#) PRN ( Second Baller from Rx) Allergies: No Known Allergies Prior Level of Function Prior Function Level Of Butler: Independent with ADLs and functional transfers Lives [...] L spontaneously. Mitt and soft wrist restraints, Virgil strap replaced end of session and bed [...] reports that pt completed videoswallow evaluation at [facility], which she states yielded recommendations for [...] [facility] - 07/09/2018 11:04 AM CDT TUBE CLOSING MACHINE OPERATOR Note: This administrative underwriter printed and placed transfer packet in pt's chart drawer, per request from [facility] Sophia Vaughn. [facility] Distributor Publications For additional assistance, please contact [facility] Sophia Vaughn *[phone] * Anesthesia Post Op Day 1 - [...] hemodynamically stable Regional/Neuroaxial: * Case Mgmt DC Plan - Sophia Vaughn - 07/09/2018 7:58 AM CDT Formatting of this note may be different from the original. Case Management Progress Note NAME:Valdez Anthony :1959 AGE: 57 y.o. ADMISSION DATE: 07/01/2018 DAYS ADMITTED: LOS: 8 days Todays Date: 07/09/2018 Plan D/c to [facility] today at 1:00pm via facility w/c van. [...] or Referral ? Discharge Planning Discharge Planning: Half-Way Facility WILLEM sent updated clinicals to [facility] at [phone]. Update 10:00am: WILLEM spoke with Perla ([phone]) at [facility] to update. Perla educated that they will be available for transportation today at 1:00pm. WILLEM spoke with Neuro Team to update. WILLEM spoke with bedside RN to update. WILLEM tasked [facility] to deliver transfer packet. RN Report: [phone] WILLEM faxed d/c orders to [facility] at [phone]. ? Medication Needs ? Financial ? Legal [...] for the patient. Sophia Vaughn LMSW Phone: [phone] Pager: *[phone] * Case Mgmt DC Plan - Sophia Vaughn - 07/08/2018 9:10 AM CDT Formatting of this note may be different from the original. Case Management Progress Note NAME:Valdez Anthony :1959 AGE: 57 y.o. ADMISSION DATE: 07/01/2018 DAYS ADMITTED: LOS: 7 days Todays Date: 07/08/2018 Plan Anticipate d/c to [facility] tomorrow pending pt stability. Interventions WILLEM reviewed [...] or Referral ? Discharge Planning Discharge Planning: Half-Way Facility WILLEM received and returned message for Angela ([phone]) at [facility] to discuss referral. Update 10:00am: WILLEM spoke with Blanquita ([phone]) at [facility] to update of anticipated d/c timeline. Blanquita educated that they are still reviewing for potential admission and will be contacting pt's to further discuss an admission. However, they will notify WILLEM once decision reached. Update 10:44am: WILLEM spoke with Perla at [facility] to update. Perla educated that they [...] for the patient. Sophia Vaughn LMSW Phone: [phone] Pager: *[phone] * Care Plan - Shira Welch RN [...] Todays Date: 07/07/2018 Plan Anticipate d/c to [facility] SNF tomorrow pending pt stability and facility acceptance. Interventions SW reviewed EMR and met with Neuro team for huddle. GI consulted. Anticipated EGD today. ? Support Support: Pt/Family Updates re:POC or DC Plan, Counseling for Adaptation to Illness, Counseling for Psychosocial issues ? Info or Referral ? Discharge Planning Discharge Planning: Half-Way Facility WILLEM left message for Admissions ([phone]) at [facility] to discuss referral. Update 11:40am: WILLEM spoke with Hyacinth ([phone]) at [facility] and they are unable to locate referral. SW agreeable to re-send referral to [phone], which WILLEM completed. Hyacinth educated that she will review and follow up. Hyacinth will also speak with her health unit supervisor to discuss their ability to assist with transportation. Update 1:20pm: SW received message from Hyacinth and they are still unable to locate referral. WILLEM manually faxed referral to [phone], as requested. Update 2:00pm: WILLEM received message from Hyacinth that they only got a portion of the referral. WILLEM re-faxed referral to [phone]. Update 4:00pm: WILLEM received and returned message for Angela ([phone]) at [facility]. ? Medication Needs ? Financial ? Legal [...] for the patient. Sophia Vaughn LMSW Phone: [phone] Pager: *[phone] * Care Plan - Shira Welch RN [...] needed. * Case Mgmt DC Plan - Liana Ortiz - 07/06/2018 10:50 AM CDT [facility] Note: Received request from [facility] Sophia Vaughn to fax referrals to the following placements. [facility] was also asked to check wheelchair van costs to the facility. [facility] - $350-375 [facility] - $500-525 [facility] - $400-425 [facility] w/c van - $430 All subject to time, billed republican, needs, etc. Updated [facility] Liana Ortiz Distributor Publications For additional assistance please contact [facility] Sophia Vaughn *[phone] * Case Mgmt DC Plan - Sophia Vaughn - 07/06/2018 10:36 AM CDT Formatting of this note may be different from the original. Case Management Progress Note NAME:Valdez Anthony :1959 AGE: 57 y.o. ADMISSION DATE: 07/01/2018 DAYS ADMITTED: LOS: 5 days Todays Date: 07/06/2018 Plan Anticipate d/c to [facility] tomorrow vs Friday pending pt stability and facility acceptance. Interventions SW reviewed EMR and met with Neuro team for huddle. Anticipate GI consult. Continue to monitor hgb. ? Support Support: Pt/Family Updates re:POC or DC Plan, Counseling for Adaptation to Illness, Counseling for Psychosocial issues SW visited pt and Leticia at bedside to discuss DCP. Leticia requested referral to [facility]. SW agreeable and reviewed referral process. SW also reviewed potential private pay cost of w/c van should SNF be unable to assist. Leticia uncertain regarding their ability to private pay, however unwilling to remain in [facility] for SNF stay. SW agreeable to obtaining quote for ongoing assistance. ? Info or Referral ? Discharge Planning Discharge Planning: Half-Way Facility SW tasked [facility] to send referral to [facility]. SW tasked [facility] to check rosenberg of w/c van. ? [...] has been selected for the patient. [facility] No service has been selected for the patient. [facility] No service has been selected for the patient. Sophia Vaughn LMSW Phone: [phone] Pager: *[phone] * Case Mgmt DC Plan - Sophia [...] pt's Leticia at bedside to discuss DCP. WILLEM educated on SNF level of care and benefit. WILLEM provided list of options. Leticia endorsing understanding of SNF level of care from family members working in SNFs. Leticia educated that she will review options this weekend and denied current concerns. ? Info or Referral ? Discharge Planning Discharge Planning: Half-Way Facility ? Medication Needs ? Financial ? [...] has been selected for the patient. [facility] No service has been selected for the patient. [facility] No service has been selected for the patient. Sophia Vaughn LMSW Phone: [phone] Pager: [phone] * Transfer - Ciarra Valentino, DO - 07/02/2018 10:24 AM CDT In-Hospital [...] suprapubic catheter that was admitted at [facility] for urosepsis, DKA , A fib [...] Started on ASA. LDL 40, continued on well logging mud analysis captain atrovastatin. PT/OT and Speech consulted. CV: Initially started on Nicardipine ggt for goal SBP <140. Restarted on well logging mud analysis captain lisinopril. Intermittent Afib on telemetry. Restarted [...] OSH. DKA resolved. Insulin ggt continued. Holding well logging mud analysis captain Levemir and Novolog. Consider Endocrine consult. Significant Medication Information (to include antibiotic duration/indication, anticoagulation and steroids, etc.): Neuro: ASA, Atorvastatin. Discuss AC. CV: Diltiazem ID: [id number] (Day 4) Endo: Insulin ggt Procedures With Dates: Thrombectomy TICI-3 07/01 Consults: Urology Follow-Up Items: -Discuss timing of AC -F/u Nutrition recs -F/u OSH Blood and repeat Blood Cx -Consider Endocrine consult Nutrition: NPO. Enteral feeds. Discharge Plan: Oralia Valentino DO Pager [phone] * Case Mgmt DC Plan - Sophia Vaughn - 07/01/2018 3:09 PM CDT Case Management Admission Assessment NAME:Valdez Anthony :1959 AGE: 57 y.o. ADMISSION DATE: 07/01/2018 DAYS ADMITTED: LOS: 0 days Todays Date: 07/01/2018 Source of Information: SW visited pt's Leticia and pt's OCTAVIANO Moseley at bedside. Plan Plan: CM Assessment, Assist PRN with SW/NCM Services Patient Address/Phone [address] [address] (home) Emergency Contact Extended Emergency Contact Information Primary Emergency Contact: Suzie English ([facility]) Relation: Relative Secondary Emergency Contact: RajLeticia (Judy) [facility] Relation: Spouse Healthcare Directive None Transportation [...] (Medicare Part A and B) Secondary Insurance: VA/[facility] ([facility]) Additional Coverage: VA (fills at [facility]. ) ? Source of Income Source Of Income: SSDI ? Financial Assistance Needed? None Psychosocial Needs ? Mental Health Mental Health History: No ? Substance Use History Substance Use History Screen: No ? Other None Current/Previous Services ? PCP Chris Seay APRN at [facility] ([phone] ext [phone]) ? Pharmacy [facility] [address] [address] ? Durable Medical Equipment Durable Medical Equipment [...] and community based services: No ? Rm White Rm White: No ? Hospice Hospice: No ? Outpatient Therapy PT: No OT: No CHEF BROILER OR FRY: No ? Half-Way Facility/Shelter SNF: No NH: No Pt's OCTAVIANO Moseley works at [employer], therefore family understanding of LTC and SNF level of cares. ? Inpatient Rehab IPR: No ? [facility] LTACH: No ? Acute Hospital Stay Acute Hospital Stay: In the past Was patient's stay within the last 30 days?: No Sophia Vaughn LMSW Phone: [phone] Pager: [phone] * Acute Stroke Response - Alonzo Watt APRN-NP - 07/01/2018 12:40 PM CDT Formatting of [...] 57 y.o. male with A-Fib (on Coumadin FIRE LOOKOUT), IDDM, Prostate CA, OD blindness, HLD and [...] due to positive occult) - 300mg ASA UT daily - Echocardiogram - MRI head w/o contrast in AM of 07/02 - Monitor telemetry for arrhythmia - NPO - CHEF BROILER OR FRY to eval speech when more alert - PT/OT to eval and treat - Rehab Medicine Consult The patient was seen and discussed with Dr. Gutierrez History of Present Ilness History of Present Illness: Mr. Anthony presented to [facility] on 06/29 with uro-sepsis and DKA. [...] and then to IR for EVT. At [facility] he had dropping Hgb and positive heme [...] language) 2=neither correct 2 1c. 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 Alonzo Watt APRN-RADIOSONDE SPECIALIST Vascular Neurology [id number] Associated attestation - Diego [...] Date: 07/01/2018 Attending Physician: Lulu Perry MD [place] [employer] Member(s): Miri Nair Stroke Treatment Time out performed: [...] Sedated from ativan Lulu Perry MD Pager: [phone] * Acute Stroke Response - Hannah Ceballos RN - 07/01/2018 12:14 PM CDT Formatting of this note may be different from the original. RN Stroke Activation Summary Date of Service: 07/01/2018 Valdez Anthony is a 57 y.o. male. : 1960 Allergies: Patient has no known allergies. Patient Arrival: 1118 ASRT Arrival: 1108 [address] : [address] Page Received: 1102 (ETA 10 minutes) EMS Agency: [facility] Outside Hospital: [facility] Clinical Presentation: Decreased LOC, Dysarthria, Left facial [...] Summary: Report received from MAXINE Pardo at [facility] in [place], [place]. Per report patient last known well today at 0730. At 0825 she noted patient to be less responsive with left side flaccid, dysarthria and left facial droop. Patient transferred to [facility] and upon arrival had decreased LOC. Flight [...] dressing applied at 1228. Patient transported to [place] 5120, VSS and no complications noted. Report given to MAXINE Cooley. CT/CTP/CTA/IR: CTA/CTP time: 1125 CTA/CTP Interpretation time: 1145 N/A Plan: Patient admitted to [place] [facility]120 post procedure for further evaluation and [...] MG/DL [facility] Performing Organization Address City/[facility]/Zipcode Phone Number [facility] [address] [place] [address] * POC GLUCOSE (07/09/2018 3:34 PM) Glucose, POC 66 (L) 70 - 100 MG/DL [facility] Performing Organization Address City/[facility] Phone Number [facility] [address] [place] [address] * POC GLUCOSE (07/09/2018 3:18 PM) Glucose, POC 69 (L) 70 - 100 MG/DL [facility] Performing Organization Address City/[facility] Phone Number [facility] [address] [place] [address] * POC GLUCOSE (07/09/2018 1:49 PM) Glucose, POC 136 (H) 70 - 100 MG/DL [facility] Performing Organization Address City/[facility] Phone Number [facility] [address] [place] [address] * POC GLUCOSE (07/09/2018 11:40 AM) Glucose, POC 158 (H) 70 - 100 MG/DL [facility] Performing Organization Address City/[facility] Phone Number [facility] [address] [place] [address] * POC GLUCOSE (07/09/2018 8:35 AM) Glucose, POC 104 (H) 70 - 100 MG/DL [facility] Performing Organization Address City/[facility] Phone Number [facility] [address] [place] [address] * COMPREHENSIVE METABOLIC PANEL (07/09/2018 5:47 AM) [...] Organization Address City/State/Zipcode Phone Number MAIN LAB [address] [place] [address] * CBC AND DIFF (07/09/2018 5:47 AM) [...] MAIN LAB Specimen Blood Performing Organization Address City/[facility]/Zipcode Phone Number [facility] [address] [place] [address] * POC GLUCOSE (07/09/2018 3:09 AM) Glucose, POC 151 (H) 70 - 100 MG/DL [facility] Performing Organization Address City/[facility]/Zipcode Phone Number [facility] [address] [place] [address] * POC GLUCOSE (07/09/2018 1:10 AM) Glucose, POC 80 70 - 100 MG/DL [facility] Performing Organization Address City/[facility] Phone Number [facility] LAB [address] [place] [address] * POC GLUCOSE (07/08/2018 9:52 PM) Glucose, POC 96 70 - 100 MG/DL [facility] Performing Organization Address City/[facility] Phone Number [facility] LAB [address] [place] [address] * POC GLUCOSE (07/08/2018 5:56 PM) Glucose, POC 129 (H) 70 - 100 MG/DL [facility] Performing Organization Address City/[facility] Phone Number MA[facility] LAB [address] [place] [address] * URINALYSIS MICROSCOPIC REFLEX TO CULTURE (07/08/2018 4:09 PM) WBCs,UA 0-2 0 - 2 /HPF [facility] RBCs,UA 0-2 0 - 3 /HPF MAIN LAB Comment,UA Urine submitted for reflex MAIN LAB culture if criteria are met:WBC>10, positive nitrite and/or >=1+ leukocyte esterase. If quantity is not sufficient, an addendum will follow. Specimen Urine Performing Organization Address City/[facility] Phone Number MA[facility] LAB [address] [place] [address] * URINALYSIS DIPSTICK REFLEX TO CULTURE (07/08/2018 4:09 PM) Color,UA STRAW [facility] Turbidity,UA CLEAR CLEAR-CLEAR [facility] Specific Mccleary-Urine 1.005 1.003 - 1.035 [facility] [...] City/State/Zipcode Phone Number [facility] [address] [place] [address] * CHEST SINGLE VIEW (07/08/2018 2:15 PM) [...] on 07/08/2018 2:17 PM. Performing Organization Address City/[facility] Phone Number RAD RESULTS * POC GLUCOSE (07/08/2018 1:57 PM) Glucose, POC 75 70 - 100 MG/DL MAIN LAB Performing Organization Address [facility] Phone Number MA[facility] LAB [address] [place] [address] * POC GLUCOSE (07/08/2018 1:21 PM) Glucose, POC 67 (L) 70 - 100 MG/DL MAIN LAB Performing Organization Address [facility] Phone Number MAIN LAB [address] [place] [address] * POC GLUCOSE (07/08/2018 11:46 AM) Glucose, POC 164 (H) 70 - 100 MG/DL MAIN LAB Performing Organization Address [facility] Phone Number MAIN LAB [address] [place] [address] * POC GLUCOSE (07/08/2018 11:22 AM) Glucose, POC 40 (LL) 70 - 100 MG/DL MAIN LAB Performing Organization Address [facility] Phone Number MAIN LAB [address] [place] [address] * EGD REPORT (07/08/2018 10:48 AM) Provation Report Patient Name: Raj DIMAS OTHER RESULTS Procedure Date: 07/08/2018 10:48 AM CSN: [id number] Date of : 1960 Gender: Male Attending Physician: Clara Carolina MD Procedure: Upper GI endoscopy Indications: Anemia (Mixed picture of anemia of chronic disease + Iron deficiency anemia), new onset of Afib and not on AC. Providers: Clara Carolina MD (Doctor), Roberto Dutta MD (Fellow), Alvaro Banegas (Nurse), Minna Jiménez RN (Nurse), Abisai Burden, Java Architect (Java Architect) Referring Physician: Referral Self Medications: Monitored Anesthesia [...] 55 seconds Procedure Code(s): --- Professional --- 89481, Esophagogastroduodenoscopy, flexible, transoral; with biopsy, single or multiple Diagnosis Code(s): --- Professional --- K44.9, Diaphragmatic hernia without obstruction or gangrene K31.89, Other diseases of stomach and duodenum D50.0, Iron deficiency anemia secondary to blood loss (chronic) CPT copyright 2016 [employer]. All rights reserved. The codes documented in this report are preliminary and upon cloth folder machine review may be revised to meet current [...] City/State/Zipcode Phone Number [facility] OTHER RESULTS * COLONOSCOPY (07/08/2018 10:47 AM) Provation Report Patient Name: Raj DIMAS OTHER RESULTS Procedure Date: 07/08/2018 10:47 AM CSN: [id number] Date of : 1960 Gender: Male Attending Physician: Clara Carolina MD Procedure: Colonoscop y Indications: Anemia (Mixed picture of anemia of chronic disease + Iron deficiency anemia), new onset of Afib and not on AC. Providers: Clara Carolina MD (Doctor), Roberto Dutta MD (Fellow), Alvaro Banegas (Nurse), Minna Jiménez RN (Nurse), Abisai Burden, Java Architect (Java Architect) Referring Physician: Gerard Salazar MD Medications: Monitored [...] 15 seconds Procedure Code(s): --- Professional --- 64252, Colonoscopy, flexible; diagnostic, including collection of specimen(s) by brushing or washing, when performed (separate procedure) Diagnosis Code(s): --- Professional --- D50.0, Iron deficiency anemia secondary to blood loss (chronic) CPT copyright 2016 [employer]. All rights reserved. The codes documented in this report are preliminary and upon cloth folder machine review may be revised to meet current compliance requirements. Attending Participation: I was present and participated during the entire procedure, including non-jacobs portions. MD Clara De Oliveira MD 07/08/2018 1:28:26 PM The attending physician has electronically signed and finalized this document. Roberto Dutta MD Number of Addenda: 0 Note Initiated On: 07/08/2018 10:47 AM Performing Organization Address [facility]co[facility] Phone Number OTHER RESULTS * POC GLUCOSE (07/08/2018 7:33 AM) Glucose, POC 88 70 - 100 MG/DL MAIN LAB Performing Organization Address [facility] Phone Number MAIN LAB [address] [place] [address] * PROCALCITONIN (07/08/2018 5:53 AM) Procalcitonin 0.13 (H) <0.10 NG/ML MAIN LAB Performing Organization Address [facility] Phone Number MAIN LAB [address] [place] [address] * COMPREHENSIVE METABOLIC PANEL (07/08/2018 5:53 AM) [...] Organization Address City/State/Zipcode Phone Number MAIN LAB [address] [place] [address] * CBC AND DIFF (07/08/2018 5:53 AM) [...] Count 521 (H) 150 - 400 K/UL [facility] MPV 8.0 7 - 11 FL [facility] Neutrophils 85 (H) 41 - 77 % [facility] Lymphocytes 7 (L) 24 - 44 % [facility] Monocytes 8 4 - 12 % [facility] Eosinophils 0 0 - 5 % [facility] Basophils 0 0 - 2 % [facility] Absolute Neutrophil Count 18.40 (H) 1.8 - 7.0 K/UL [facility] Absolute Lymph Count 1.50 1.0 - 4.8 K/UL [facility] Absolute Monocyte Count 1.70 (H) 0 - 0.80 K/UL [facility] Absolute Eosinophil Count 0.10 0 - 0.45 K/UL [facility] Absolute Basophil Count 0.00 0 - 0.20 K/UL [facility] Specimen Blood Performing Organization Address City/[facility]/Zipcode Phone Number [facility] [address] [place] [address] * POC GLUCOSE (07/07/2018 9:26 PM) Glucose, POC 176 (H) 70 - 100 MG/DL [facility] Performing Organization Address City/[facility] Phone Number [facility] [address] [place] [address] * POC GLUCOSE (07/07/2018 5:54 PM) Glucose, POC 111 (H) 70 - 100 MG/DL [facility] Performing Organization Address [facility] Phone Number [facility] [address] [place] [address] * POC GLUCOSE (07/07/2018 11:30 AM) Glucose, POC 90 70 - 100 MG/DL [facility] Performing Organization Address [facility] Phone Number [facility] [address] [place] [address] * CBC AND DIFF (07/07/2018 8:00 AM) White Blood Cells 14.6 (H) 4.5 - 11.0 K/UL [facility] RBC 3.21 (L) 4.4 - 5.5 M/UL MAIN LAB Hemoglobin 9.5 (L) 13.5 - 16.5 GM/DL [facility] Hematocrit 28.5 (L) 40 - 50 % [facility] MCV 88.7 80 - 100 FL [facility] MCH 29.6 26 - 34 PG MAIN LAB MCHC 33.4 32.0 - 36.0 G/DL MAIN LAB RDW 14.5 11 - 15 [...] MAIN LAB Specimen Blood Performing Organization Address City/[facility] Phone Number [facility] [address] [place] [address] * POC GLUCOSE (07/07/2018 7:49 AM) Glucose, POC 182 (H) 70 - 100 MG/DL [facility] Performing Organization Address [facility] Phone Number [facility] [address] [place] [address] * COMPREHENSIVE METABOLIC PANEL (07/07/2018 5:45 AM) [...] Address City/State/Zipcode Phone Number MAIN LAB [address] [place] [address] * HEMOGLOBIN (07/07/2018 5:45 AM) Hemoglobin 9.5 (L) 13.5 - 16.5 GM/DL MAIN LAB Comment: Corrected on 07/09 AT 1021: previously reported as DUPLICATE ORDER, Corrected on 07/07 AT 0811: previously reported as 9.5 Specimen Blood Performing Organization Address City/[facility]/Zipcode Phone Number MAIN LAB [address] [place] [address] * HEMOGLOBIN (07/06/2018 10:45 PM) Hemoglobin 10.5 (L) 13.5 - 16.5 GM/DL MAIN LAB Specimen Blood Performing Organization Address City/[facility] Phone Number MAIN LAB [address] [place] [address] * OCCULT BLOOD NON COLON CANCER SCREEN (07/06/2018 10:45 PM) Battery Name OCCULT BLOOD SCREEN MAIN LAB Specimen Description FECES MAIN LAB Special Requests NONE MAIN LAB Occult Blood NEGATIVE MAIN LAB Report Status FINAL MAIN LAB 07/06/2018 Specimen Stool - Feces Performing Organization Address City/[facility] Phone Number MAIN LAB [address] [place] [address] * POC GLUCOSE (07/06/2018 9:04 PM) Glucose, POC 115 (H) 70 - 100 MG/DL [facility] Performing Organization Address City/[facility]/Zipcode Phone Number MAIN LAB [address] [place] [address] * POC GLUCOSE (07/06/2018 5:11 PM) Glucose, POC 150 (H) 70 - 100 MG/DL [facility] Performing Organization Address City/[facility]/Zipcode Phone Number MAIN LAB [address] [place] [address] * POC GLUCOSE (07/06/2018 2:36 PM) Glucose, POC 196 (H) 70 - 100 MG/DL [facility] Performing Organization Address [facility] Phone Number [facility] [address] [place] [address] * HEMOGLOBIN (07/06/2018 1:31 PM) Hemoglobin 8.9 (L) 13.5 - 16.5 GM/DL [facility] Specimen Blood Performing Organization Address [facility] Phone Number [facility] [address] [place] [address] * POC GLUCOSE (07/06/2018 11:49 AM) Glucose, POC 153 (H) 70 - 100 MG/DL [facility] Performing Organization Address [facility] Phone Number [facility] [address] [place] [phone] * POC GLUCOSE (07/06/2018 7:29 AM) Glucose, POC 130 (H) 70 - 100 MG/DL [facility] Performing Organization Address [facility] Phone Number [facility] [address] [place] [phone] * HEMOGLOBIN (07/06/2018 4:27 AM) Hemoglobin 9.1 (L) 13.5 - 16.5 GM/DL MAIN LAB Specimen Blood Performing Organization Address [facility] Phone Number MAIN LAB [address] [place] [phone] * CBC (07/06/2018 4:27 AM) White Blood [...] MAIN LAB Specimen Blood Performing Organization Address [facility] Phone Number MAIN LAB [address] [place] [address] * BASIC METABOLIC PANEL (07/06/2018 4:27 AM) [...] for questions. Specimen Blood Performing Organization Address City/[facility]/Zipcode Phone Number MAIN LAB [address] [place] [address] * POC GLUCOSE (07/06/2018 2:35 AM) Glucose, POC 132 (H) 70 - 100 MG/DL [facility] Performing Organization Address [facility] Phone Number MAIN LAB [address] [place] [address] * POC GLUCOSE (07/05/2018 10:09 PM) Glucose, POC 89 70 - 100 MG/DL [facility] Performing Organization Address City/[facility]/Zipcode Phone Number MAIN LAB [address] [place] [address] * HEMOGLOBIN (07/05/2018 9:40 PM) Hemoglobin 10.1 (L) 13.5 - 16.5 GM/DL [facility] Specimen Blood Performing Organization Address City/[facility]/Zipcode Phone Number MAIN LAB [address] [place] [address] * POC GLUCOSE (07/05/2018 9:37 PM) Glucose, POC 77 70 - 100 MG/DL [facility] Performing Organization Address City/[facility] Phone Number [facility] [address] [place] [address] * POC GLUCOSE (07/05/2018 8:15 PM) Glucose, POC 81 70 - 100 MG/DL [facility] Performing Organization Address City/[facility] Phone Number [facility] [address] [place] [address] * CULTURE-URINE W/SENSITIVITY (07/05/2018 6:45 PM) Battery Name URINE CULTURE [facility] Specimen Description URINE [facility] Special Requests NONE [facility] Culture NO GROWTH [facility] Report Status FINAL [facility] 07/06/2018 Specimen Urine Performing Organization Address [facility] Phone Number [facility] [address] [place] [address] * URINALYSIS MICROSCOPIC REFLEX TO CULTURE (07/05/2018 [...] MAIN LAB Specimen Urine Performing Organization Address [facility] Phone Number [facility] [address] [place] [phone] * URINALYSIS DIPSTICK REFLEX TO CULTURE (07/05/2018 6:45 PM) Color,UA YELLOW [facility] Turbidity,UA 2+ (A) CLEAR-CLEAR [facility] Specific Mccleary-Urine 1.017 1.003 - 1.035 [facility] pH,UA 5.0 5.0 - 8.0 [facility] Protein,UA 2+ (A) NEG-NEG [facility] Glucose,UA 1+ (A) NEG-NEG [facility] Ketones,UA NEG NEG-NEG [facility] Bilirubin,UA NEG NEG-NEG [facility] Blood,UA NEG NEG-NEG [facility] Urobilinogen,UA NORMAL NORM-NORMAL MAIN LAB Nitrite,UA NEG NEG-NEG MAIN LAB Leukocytes,UA 1+ (A) NEG-NEG MAIN LAB Urine Ascorbic Acid, UA NEG NEG-NEG MAIN LAB Specimen Urine Performing Organization Address [facility] Phone Number MAIN LAB [address] [place] [address] * POC GLUCOSE (07/05/2018 4:37 PM) Glucose, POC 79 70 - 100 MG/DL [facility] Performing Organization Address [facility] Phone Number MAIN LAB [address] [place] [address] * POC GLUCOSE (07/05/2018 2:02 PM) Glucose, POC 92 70 - 100 MG/DL [facility] Performing Organization Address [facility] Phone Number MAIN LAB [address] [place] [address] * HEMOGLOBIN (07/05/2018 2:00 PM) Hemoglobin 9.6 (L) 13.5 - 16.5 GM/DL MAIN LAB Specimen Blood Performing Organization Address [facility] Phone Number MAIN LAB [address] [place] [address] * POC GLUCOSE (07/05/2018 11:32 AM) Glucose, POC 102 (H) 70 - 100 MG/DL MAIN LAB Performing Organization Address [facility] Phone Number MAIN LAB [address] [place] [address] * ABDOMEN AP ONLY (07/05/2018 9:20 AM) [...] on 07/05/2018 10:24 AM. Dictated by Imelda Ried M.D. on 07/05/2018 10:21 AM. Performing Organization Address City/[facility] Phone Number RAD RESULTS * POC GLUCOSE (07/05/2018 6:56 AM) Glucose, POC 139 (H) 70 - 100 MG/DL MAIN LAB Performing Organization Address [facility] Phone Number [facility] [address] [place] [address] * CBC (07/05/2018 5:50 AM) White Blood Cells 12.4 (H) 4.5 - 11.0 K/UL [facility] RBC 3.21 (L) 4.4 - 5.5 M/UL [facility] Hemoglobin 9.5 (L) 13.5 - 16.5 GM/DL [facility] Hematocrit 27.9 (L) 40 - 50 % MAIN LAB MCV 86.9 80 - 100 FL MAIN LAB MCH 29.6 26 - 34 PG [facility] MCHC 34.1 32.0 - 36.0 G/DL [facility] RDW 14.0 11 - 15 % MAIN LAB Platelet Count 413 (H) 150 - 400 K/UL [facility] MPV 8.7 7 - 11 FL [facility] Specimen Blood Performing Organization Address [facility] Phone Number [facility] [address] [place] [address] * POC GLUCOSE (07/05/2018 5:29 AM) Glucose, POC 125 (H) 70 - 100 MG/DL [facility] Performing Organization Address City/[facility]/Zipcode Phone Number [facility] [address] [place] [address] * BASIC METABOLIC PANEL (07/05/2018 5:25 AM) [...] for questions. Specimen Blood Performing Organization Address [facility] Phone Number MAIN LAB [address] [place] [address] * POC GLUCOSE (07/05/2018 2:37 AM) Glucose, POC 103 (H) 70 - 100 MG/DL [facility] Performing Organization Address [facility] Phone Number [facility] [address] [place] [address] * POC GLUCOSE (07/05/2018 1:31 AM) Glucose, POC 94 70 - 100 MG/DL [facility] Performing Organization Address City/[facility]/Zipcode Phone Number [facility] [address] [place] [address] * POC GLUCOSE (07/05/2018 12:41 AM) Glucose, POC 121 (H) 70 - 100 MG/DL [facility] Performing Organization Address City/[facility]/Zipcode Phone Number [facility] [address] [place] [address] * POC GLUCOSE (07/04/2018 11:19 PM) Glucose, POC 84 70 - 100 MG/DL [facility] Performing Organization Address [facility] Phone Number MAIN LAB [address] [place] [address] * HEMOGLOBIN (07/04/2018 9:30 PM) Hemoglobin 13.5 13.5 - 16.5 GM/DL MAIN LAB Specimen Blood Performing Organization Address City/[facility] Phone Number [facility] LAB [address] [place] [address] * POC GLUCOSE (07/04/2018 9:15 PM) Glucose, POC 105 (H) 70 - 100 MG/DL [facility] Performing Organization Address [facility] Phone Number MA[facility] LAB [address] [place] [address] * POC GLUCOSE (07/04/2018 7:50 PM) Glucose, POC 164 (H) 70 - 100 MG/DL [facility] Performing Organization Address [facility] Phone Number MAIN LAB [address] [place] [address] * POC GLUCOSE (07/04/2018 7:23 PM) Glucose, POC 44 (LL) 70 - 100 MG/DL [facility] Performing Organization Address [facility] Phone Number MAIN LAB [address] [place] [address] * POC GLUCOSE (07/04/2018 5:10 PM) Glucose, POC 96 70 - 100 MG/DL [facility] Performing Organization Address [facility] Phone Number MAIN LAB [address] [place] [address] * IRON + BINDING CAPACITY + %SAT+ FERRITIN (07/04/2018 2:20 PM) Iron 49 (L) 50 - 185 MCG/DL [facility] Iron Binding-TIBC 212 (L) 270 - 380 MCG/DL [facility] % Saturation 23 (L) 28 - 42 % [facility]IN [facility] Ferritin 383 (H) 30 - 300 NG/ML MAIN LAB Specimen Blood Performing Organization Address City/[facility] Phone Number [facility] LAB [address] [place] [address] * POC GLUCOSE (07/04/2018 2:19 PM) Glucose, POC 137 (H) 70 - 100 MG/DL [facility] Performing Organization Address City/[facility]/Zipcode Phone Number MAIN LAB [address] [place] [address] * POC GLUCOSE (07/04/2018 1:42 PM) Glucose, POC 114 (H) 70 - 100 MG/DL [facility] Performing Organization Address City/State/Zipcode Phone Number MAIN LAB [address] [place] [address] * POC GLUCOSE (07/04/2018 1:16 PM) Glucose, POC 55 (L) 70 - 100 MG/DL [facility] Performing Organization Address City/[facility]/Zipcode Phone Number MAIN LAB [address] [place] [address] * HEMOGLOBIN (07/04/2018 1:15 PM) Hemoglobin 9.4 (L) 13.5 - 16.5 GM/DL MAIN LAB Specimen Blood Performing Organization Address City/[facility]/Zipcode Phone Number MAIN LAB [address] [place] [address] * POC GLUCOSE (07/04/2018 12:52 PM) Glucose, POC 66 (L) 70 - 100 MG/DL [facility] Performing Organization Address City/[facility]/Zipcode Phone Number MAIN LAB [address] [place] [address] * POC GLUCOSE (07/04/2018 12:19 PM) Glucose, POC 66 (L) 70 - 100 MG/DL [facility] Performing Organization Address City/[facility]/Zipcode Phone Number MAIN LAB [address] [place] [address] * POC GLUCOSE (07/04/2018 12:17 PM) Glucose, POC 59 (L) 70 - 100 MG/DL [facility] Performing Organization Address City/[facility]/Zipcode Phone Number MAIN LAB [address] [place] [address] * POC GLUCOSE (07/04/2018 10:28 AM) Glucose, POC 144 (H) 70 - 100 MG/DL [facility] Performing Organization Address [facility] Phone Number [facility] [address] [place] [phone] * POC GLUCOSE (07/04/2018 9:31 AM) Glucose, POC 197 (H) 70 - 100 MG/DL [facility] Performing Organization Address [facility] Phone Number [facility] [address] [place] [address] * POC GLUCOSE (07/04/2018 8:38 AM) Glucose, POC 184 (H) 70 - 100 MG/DL [facility] Performing Organization Address [facility] Phone Number MAIN LAB [address] [place] [phone] * POC GLUCOSE (07/04/2018 7:29 AM) Glucose, POC 150 (H) 70 - 100 MG/DL [facility] Performing Organization Address [facility] Phone Number [facility] [address] [place] [phone] * POC GLUCOSE (07/04/2018 6:31 AM) Glucose, POC 119 (H) 70 - 100 MG/DL [facility] Performing Organization Address [facility] Phone Number MAIN LAB [address] [place] [phone] * CBC (07/04/2018 5:47 AM) White Blood Cells 12.9 (H) 4.5 - 11.0 K/UL [facility] RBC 2.93 (L) 4.4 - 5.5 M/UL [facility] Hemoglobin 8.6 (L) 13.5 - 16.5 GM/DL [facility] Hematocrit 26.3 (L) 40 - 50 % [facility] MCV 89.9 80 - 100 FL [facility] MCH 29.3 26 - 34 PG MAIN LAB MCHC 32.6 32.0 - 36.0 G/DL MAIN LAB RDW 13.9 11 - 15 % [facility] Platelet Count 357 150 - 400 K/UL [facility] MAIN [facility] MPV 8.9 7 - 11 FL MAIN LAB Specimen Blood Performing Organization Address [facility]/Zipcode Phone Number MAIN LAB [address] [place] [address] * BASIC METABOLIC PANEL (07/04/2018 5:47 AM) [...] for questions. Specimen Blood Performing Organization Address City/[facility]/Zipcode Phone Number MAIN LAB [address] [place] [address] * POC GLUCOSE (07/04/2018 5:36 AM) Glucose, POC 126 (H) 70 - 100 MG/DL [facility] Performing Organization Address [facility] Phone Number [facility] [address] [place] [address] * POC GLUCOSE (07/04/2018 4:36 AM) Glucose, POC 94 70 - 100 MG/DL [facility] Performing Organization Address City/[facility]/Zipcode Phone Number MAIN LAB [address] [place] [address] * POC GLUCOSE (07/04/2018 3:24 AM) Glucose, POC 120 (H) 70 - 100 MG/DL [facility] Performing Organization Address City/[facility]/Zipcode Phone Number MAIN LAB [address] [place] [address] * POC GLUCOSE (07/04/2018 2:14 AM) Glucose, POC 112 (H) 70 - 100 MG/DL [facility] Performing Organization Address City/[facility]/Zipcode Phone Number MAIN LAB [address] [place] [address] * POC GLUCOSE (07/04/2018 12:37 AM) Glucose, POC 126 (H) 70 - 100 MG/DL [facility] Performing Organization Address City/[facility] Phone Number MAIN LAB [address] [place] [address] * BLOOD TYPE CONFIRMATION - ORDER ONLY IF REQUESTED BY LAB (07/04/2018 12:13 AM) ABO/RH(D) O NEG MAIN LAB Specimen Blood Performing Organization Address City/[facility] Phone Number MAIN LAB [address] [place] [address] * TYPE & CROSSMATCH (07/03/2018 11:48 PM) Units Ordered 1 MAIN LAB Crossmatch Expires 07/06/2018 MAIN LAB Record Check 2ND TYPE REQUIRED MAIN LAB ABO/RH(D) O NEG MAIN LAB Antibody Screen NEG MAIN LAB Electronic Crossmatch YES MAIN LAB Unit Number [id number] MAIN LAB Blood Component Type RBC,CPDA,LEUKO REDUCED MAIN LAB Unit Division 0 MAIN LAB Status OF Unit TRANSFUSED MAIN LAB Transfusion Status OK TO TRANSFUSE MAIN LAB Crossmatch Result COMPATIBLE,ELECTRONIC MAIN LAB Specimen Blood Performing Organization Address City/[facility] Phone Number MAIN LAB [address] [place] [address] * POC GLUCOSE (07/03/2018 11:21 PM) Glucose, POC 197 (H) 70 - 100 MG/DL [facility] Performing Organization Address City/[facility]/Zipcode Phone Number MAIN LAB [address] [place] [address] * POC GLUCOSE (07/03/2018 10:12 PM) Glucose, POC 218 (H) 70 - 100 MG/DL [facility] Performing Organization Address City/[facility]/Zipcode Phone Number MAIN LAB [address] [place] [address] * HEMOGLOBIN (07/03/2018 10:02 PM) Hemoglobin 6.8 (L) 13.5 - 16.5 GM/DL MAIN LAB Specimen Blood Performing Organization Address City/State/Zipcode Phone Number MAIN LAB [address] [place] [address] * POC GLUCOSE (07/03/2018 9:19 PM) Glucose, POC 187 (H) 70 - 100 MG/DL [facility] Performing Organization Address City/[facility]/Zipcode Phone Number MAIN LAB [address] [place] [address] * POC GLUCOSE (07/03/2018 7:40 PM) Glucose, POC 113 (H) 70 - 100 MG/DL [facility] Performing Organization Address City/[facility]/Zipcode Phone Number MAIN LAB [address] [place] [address] * POC GLUCOSE (07/03/2018 6:37 PM) Glucose, POC 143 (H) 70 - 100 MG/DL [facility] Performing Organization Address City/[facility] Phone Number MAIN LAB [address] [place] [address] * POC GLUCOSE (07/03/2018 5:31 PM) Glucose, POC 157 (H) 70 - 100 MG/DL MAIN LAB Performing Organization Address City/[facility] Phone Number MAIN LAB [address] [place] [address] * POC GLUCOSE (07/03/2018 4:35 PM) Glucose, POC 190 (H) 70 - 100 MG/DL [facility] Performing Organization Address City/[facility] Phone Number MAIN LAB [address] [place] [address] * POC GLUCOSE (07/03/2018 3:36 PM) Glucose, POC 190 (H) 70 - 100 MG/DL [facility] Performing Organization Address City/[facility]/Zipcode Phone Number MAIN LAB [address] [place] [address] * HEMOGLOBIN (07/03/2018 3:25 PM) Hemoglobin 7.2 (L) 13.5 - 16.5 GM/DL MAIN LAB Specimen Blood Performing Organization Address City/State/Zipcode Phone Number MAIN LAB [address] [place] [address] * POC GLUCOSE (07/03/2018 2:22 PM) Glucose, POC 176 (H) 70 - 100 MG/DL [facility] Performing Organization Address [facility] Phone Number [facility] [address] [place] [address] * POC GLUCOSE (07/03/2018 1:24 PM) Glucose, POC 254 (H) 70 - 100 MG/DL [facility] Performing Organization Address City/[facility] Phone Number [facility] [address] [place] [address] * POC GLUCOSE (07/03/2018 12:20 PM) Glucose, POC 307 (H) 70 - 100 MG/DL [facility] Performing Organization Address [facility] Phone Number MAIN LAB [address] [place] [address] * POC GLUCOSE (07/03/2018 10:45 AM) Glucose, POC 268 (H) 70 - 100 MG/DL [facility] Performing Organization Address [facility] Phone Number MAIN LAB [address] [place] [address] * POC GLUCOSE (07/03/2018 9:22 AM) Glucose, POC 233 (H) 70 - 100 MG/DL [facility] Performing Organization Address [facility] Phone Number MAIN LAB [address] [place] [address] * SWALLOW MOTION SERIES (07/03/2018 8:59 AM) [...] on 07/03/2018 9:08 AM. Performing Organization Address City/State/Zipcode Phone Number RAD RESULTS * POC GLUCOSE (07/03/2018 8:04 AM) Glucose, POC 156 (H) 70 - 100 MG/DL MAIN LAB Performing Organization Address City/State/Zipcode Phone Number MAIN LAB [address] [place] [address] * ECG-SCAN (07/03/2018 7:35 AM) Narrative Performed At Ordered by an unspecified provider. * POC GLUCOSE (07/03/2018 5:03 AM) Glucose, POC 109 (H) 70 - 100 MG/DL [facility] Performing Organization Address City/[facility] Phone Number MAIN LAB [address] [place] [address] * CBC (07/03/2018 4:11 AM) White Blood Cells 13.4 (H) 4.5 - 11.0 K/UL [facility]IN [facility] RBC 2.57 (L) 4.4 - 5.5 M/UL [facility] MAIN [facility] Hemoglobin 7.6 (L) 13.5 - 16.5 GM/DL [facility] Hematocrit 22.7 (L) 40 - 50 % [facility] MAIN [facility] MCV 88.3 80 - 100 FL [facility] MAIN [facility] MCH 29.5 26 - 34 PG [facility] MCHC 33.4 32.0 - 36.0 G/DL [facility] RDW 14.1 11 - 15 % [facility] Platelet Count 395 150 - 400 K/UL [facility] MPV 8.7 7 - 11 FL [facility] MAIN [facility] Specimen Blood Performing Organization Address City/[facility] Phone Number [facility] [address] [place] [address] * BASIC METABOLIC PANEL (07/03/2018 4:11 AM) [...] City/State/Zipcode Phone Number [facility] [address] [place] [address] * POC GLUCOSE (07/03/2018 3:57 AM) Glucose, POC 132 (H) 70 - 100 MG/DL [facility] Performing Organization Address City/[facility]/Zipcode Phone Number [facility] [address] [place] [address] * POC GLUCOSE (07/03/2018 3:06 AM) Glucose, POC 145 (H) 70 - 100 MG/DL [facility] Performing Organization Address City/State/Zipcode Phone Number MAIN LAB [address] [place] [address] * POC GLUCOSE (07/03/2018 2:01 AM) Glucose, POC 154 (H) 70 - 100 MG/DL [facility] Performing Organization Address City/[facility]/Zipcode Phone Number MAIN LAB [address] [place] [address] * POC GLUCOSE (07/03/2018 1:05 AM) Glucose, POC 112 (H) 70 - 100 MG/DL [facility] Performing Organization Address City/[facility]/Zipcode Phone Number MAIN LAB [address] [place] [address] * POC GLUCOSE (07/03/2018 12:35 AM) Glucose, POC 98 70 - 100 MG/DL [facility] Performing Organization Address City/[facility]/Zipcode Phone Number MAIN LAB [address] [place] [address] * POC GLUCOSE (07/03/2018 12:13 AM) Glucose, POC 78 70 - 100 MG/DL [facility] Performing Organization Address City/[facility]/Zipcode Phone Number MAIN LAB [address] [place] [address] * POC GLUCOSE (07/02/2018 11:03 PM) Glucose, POC 102 (H) 70 - 100 MG/DL [facility] Performing Organization Address City/State/Zipcode Phone Number MAIN LAB [address] [place] [address] * POC GLUCOSE (07/02/2018 9:56 PM) Glucose, POC 184 (H) 70 - 100 MG/DL [facility] Performing Organization Address City/[facility] Phone Number MAIN LAB [address] [place] [address] * POC GLUCOSE (07/02/2018 9:36 PM) Glucose, POC 49 (LL) 70 - 100 MG/DL [facility] Performing Organization Address City/[facility] Phone Number MAIN LAB [address] [place] [address] * POC GLUCOSE (07/02/2018 9:32 PM) Glucose, POC 50 (L) 70 - 100 MG/DL [facility] Performing Organization Address City/[facility] Phone Number MAIN LAB [address] [place] [address] * POC GLUCOSE (07/02/2018 9:13 PM) Glucose, POC 59 (L) 70 - 100 MG/DL [facility] Performing Organization Address City/[facility] Phone Number MAIN LAB [address] [place] [address] * POC GLUCOSE (07/02/2018 9:11 PM) Glucose, POC 58 (L) 70 - 100 MG/DL MAIN LAB Performing Organization Address City/[facility] Phone Number MAIN LAB [address] [place] [address] * POC GLUCOSE (07/02/2018 7:58 PM) Glucose, POC 121 (H) 70 - 100 MG/DL [facility] Performing Organization Address City/[facility] Phone Number MAIN LAB [address] [place] [address] * POC GLUCOSE (07/02/2018 6:56 PM) Glucose, POC 162 (H) 70 - 100 MG/DL [facility] Performing Organization Address City/[facility] Phone Number MAIN LAB [address] [place] [address] * POC GLUCOSE (07/02/2018 6:07 PM) Glucose, POC 180 (H) 70 - 100 MG/DL [facility] Performing Organization Address City/[facility]/Zipcode Phone Number MAIN LAB [address] [place] [address] * POC GLUCOSE (07/02/2018 4:52 PM) Glucose, POC 195 (H) 70 - 100 MG/DL [facility] Performing Organization Address City/State/Zipcode Phone Number MAIN LAB [address] [place] [address] * POC GLUCOSE (07/02/2018 4:24 PM) Glucose, POC 204 (H) 70 - 100 MG/DL [facility] Performing Organization Address City/State/Zipcode Phone Number MAIN LAB [address] [place] [address] * POC GLUCOSE (07/02/2018 3:09 PM) Glucose, POC 212 (H) 70 - 100 MG/DL [facility] Performing Organization Address City/State/Zipcode Phone Number MAIN LAB [address] [place] [address] * POC GLUCOSE (07/02/2018 2:13 PM) Glucose, POC 204 (H) 70 - 100 MG/DL MAIN LAB Performing Organization Address City/State/Zipcode Phone Number MAIN LAB [address] [place] [address] * POC GLUCOSE (07/02/2018 12:59 PM) Glucose, POC 235 (H) 70 - 100 MG/DL [facility] Performing Organization Address City/State/Zipcode Phone Number MAIN LAB [address] [place] [address] * POC GLUCOSE (07/02/2018 12:02 PM) Glucose, POC 244 (H) 70 - 100 MG/DL [facility] Performing Organization Address City/State/Zipcode Phone Number MAIN LAB [address] [place] [address] * POC GLUCOSE (07/02/2018 11:10 AM) Glucose, POC 229 (H) 70 - 100 MG/DL [facility] Performing Organization Address City/State/Zipcode Phone Number MAIN LAB [address] [place] [address] * ABDOMEN AP ONLY (07/02/2018 10:20 AM) [...] on 07/02/2018 11:09 AM. Performing Organization Address City/[facility] Phone Number [facility] RAD RESULTS * POC GLUCOSE (07/02/2018 10:14 AM) Glucose, POC 212 (H) 70 - 100 MG/DL [facility] Performing Organization Address [facility] Phone Number [facility] [address] [place] [address] * POC GLUCOSE (07/02/2018 9:22 AM) Glucose, POC 209 (H) 70 - 100 MG/DL [facility] Performing Organization Address City/[facility] Phone Number [employer] MAIN LAB [address] [place] [address] * POC GLUCOSE (07/02/2018 8:04 AM) Glucose, POC 186 (H) 70 - 100 MG/DL [facility] Performing Organization Address [facility]/Zipcode Phone Number [facility]IN [facility] [address] [place] [address] * POC GLUCOSE (07/02/2018 6:05 AM) Glucose, POC 142 (H) 70 - 100 MG/DL [facility] Performing Organization Address [facility] Phone Number MAIN LAB [address] [place] [address] * POC GLUCOSE (07/02/2018 5:00 AM) Glucose, POC 125 (H) 70 - 100 MG/DL [facility]IN [facility] Performing Organization Address City/[facility] Phone Number MAIN LAB [address] [place] [address] * PHOSPHORUS (07/02/2018 4:15 AM) Phosphorus 2.6 2.0 - 4.0 MG/DL MAIN LAB Specimen Blood Performing Organization Address [facility] Phone Number MAIN LAB [address] [place] [address] * MAGNESIUM (07/02/2018 4:15 AM) Magnesium 1.9 1.6 - 2.6 mg/dL MAIN LAB Specimen Blood Performing Organization Address [facility] Phone Number MAIN LAB [address] [place] [address] * IONIZED CALCIUM (07/02/2018 4:15 AM) Ionized Calcium 1.14 1.0 - 1.3 MMOL/L MAIN LAB Specimen Blood Performing Organization Address [facility] Phone Number MAIN LAB [address] [place] [address] * CULTURE-BLOOD W/SENSITIVITY (07/02/2018 4:15 AM) Battery Name BLOOD CULTURE MAIN LAB Specimen Description BLOOD MAIN LAB RIGHT RADIAL ARTERIAL Special Requests NONE MAIN LAB Culture NO GROWTH 5 DAYS [facility] MAIN [facility] Report Status FINAL [facility]IN [facility] 07/08/2018 Specimen Blood Performing Organization Address [facility] Phone Number MAIN LAB [address] [place] [address] * CBC (07/02/2018 4:15 AM) White Blood Cells 10.3 4.5 - 11.0 K/UL MAIN LAB RBC 3.17 (L) 4.4 - 5.5 M/UL MAIN LAB Hemoglobin 8.8 (L) 13.5 - 16.5 GM/DL MAIN LAB Hematocrit 28.2 (L) 40 - 50 % MAIN LAB MCV 88.8 80 - 100 FL MAIN LAB MCH 27.8 26 - 34 PG MAIN LAB MCHC 31.3 (L) 32.0 - 36.0 G/DL MAIN LAB RDW 14.0 11 - 15 % MAIN LAB Platelet Count 401 (H) 150 - 400 K/UL MAIN LAB MPV 8.9 7 - 11 FL MAIN LAB Specimen Blood Performing Organization Address City/[facility] Phone Number MAIN LAB [address] [place] [address] * BASIC METABOLIC PANEL (07/02/2018 4:15 AM) Sodium 140 137 - 147 MMOL/L MAIN LAB Potassium 4.2 3.5 - 5.1 MMOL/L MAIN LAB Chloride 113 (H) 98 - 110 MMOL/L MAIN LAB CO2 20 (L) 21 - 30 MMOL/L [facility] MAIN [facility] Anion Gap 7 3 - 12 MAIN LAB Glucose 127 (H) 70 - 100 MG/DL MAIN LAB Blood Urea Nitrogen 12 7 - 25 MG/DL MAIN LAB Creatinine 0.88 0.4 - 1.24 MG/DL MAIN LAB Calcium 8.5 8.5 - 10.6 MG/DL MAIN LAB eGFR Non >60 >60 mL/min [facility] MAIN [facility] Comment: The eGFR is not validated for use in drug dosing adjustments.Continue to use estimated creatinine clearance per dosing reference text.Please contact the Clinical Pharmacist for questions. eGFR >60 >60 mL/min MAIN LAB Comment: The eGFR is not validated for use in drug dosing adjustments.Continue to use estimated creatinine clearance per dosing reference text.Please contact the Clinical Pharmacist for questions. Specimen Blood Performing Organization Address City/[facility]/Zipcode Phone Number [facility] [address] [place] [address] * POC GLUCOSE (07/02/2018 4:00 AM) Glucose, POC 129 (H) 70 - 100 MG/DL MAIN LAB Performing Organization Address City/[facility]/Zipcode Phone Number [facility] [address] [place] [address] * POC GLUCOSE (07/02/2018 3:06 AM) Glucose, POC 116 (H) 70 - 100 MG/DL [facility] MAIN [facility] Performing Organization Address City/[facility]/Zipcode Phone Number MAIN LAB [address] [place] [address] * POC GLUCOSE (07/02/2018 2:02 AM) Glucose, POC 113 (H) 70 - 100 MG/DL [facility] MAIN [facility] Performing Organization Address City/[facility]/Zipcode Phone Number MAIN LAB [address] [place] [address] * POC GLUCOSE (07/02/2018 1:12 AM) Glucose, POC 147 (H) 70 - 100 MG/DL MAIN LAB Performing Organization Address City/[facility]/Zipcode Phone Number MAIN LAB [address] [place] [address] * POC GLUCOSE (07/02/2018 12:05 AM) Glucose, POC 155 (H) 70 - 100 MG/DL MAIN LAB Performing Organization Address City/[facility] Phone Number MA[facility] LAB [address] [place] [address] * POC GLUCOSE (07/01/2018 11:03 PM) Glucose, POC 128 (H) 70 - 100 MG/DL MAIN LAB Performing Organization Address City/[facility] Phone Number MA[facility] LAB [address] [place] [address] * POC GLUCOSE (07/01/2018 10:07 PM) Glucose, POC 208 (H) 70 - 100 MG/DL MAIN LAB Performing Organization Address City/[facility] Phone Number MAIN LAB [address] [place] [address] * POC GLUCOSE (07/01/2018 9:18 PM) Glucose, POC 184 (H) 70 - 100 MG/DL MAIN LAB Performing Organization Address City/[facility]/Zipcode Phone Number MAIN LAB [address] [place] [address] * MRI HEAD WO CONTRAST (07/01/2018 9:10 [...] the posterior medial left temporal lobe. 3. Adventism of flow void within the right M1 [...] changes. Major vascular flow voids of the [place] and dural venous sinuses are preserved. There is buddhist of flow void in the right M1 [...] changes. Major vascular flow voids of the [place] and dural venous sinuses are preserved. There is buddhist of flow void in the right M1 [...] the posterior medial left temporal lobe. 3. 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 Performing Organization Address City/[facility]/[employer] Phone Number RAD RESULTS * POC GLUCOSE (07/01/2018 8:07 PM) Glucose, POC 184 (H) 70 - 100 MG/DL [facility] MAIN [facility] Performing Organization Address City/[facility]/Zipcode Phone Number MAIN LAB [address] [place] [address] * POC GLUCOSE (07/01/2018 6:59 PM) Glucose, POC 190 (H) 70 - 100 MG/DL [facility] MAIN [facility] Performing Organization Address City/[facility]/Zipcode Phone Number [employer] MAIN LAB [address] [place] [address] * POC GLUCOSE (07/01/2018 6:03 PM) Glucose, POC 169 (H) 70 - 100 MG/DL [facility] MAIN [facility] Performing Organization Address City/State/[employer] Phone Number MAIN LAB [address] [place] [address] * POC GLUCOSE (07/01/2018 5:10 PM) Glucose, POC 154 (H) 70 - 100 MG/DL [facility] MAIN [facility] Performing Organization Address City/[facility]/[employer] Phone Number MAIN LAB [address] [place] [address] * POC GLUCOSE (07/01/2018 4:04 PM) Glucose, POC 195 (H) 70 - 100 MG/DL [facility] MAIN [facility] Performing Organization Address [facility] Phone Number [employer] MAIN LAB [address] [place] [address] * BLOOD GASES, ARTERIAL (07/01/2018 3:06 PM) pH-Arterial 7.34 (L) 7.35 - 7.45 [facility] MAIN LAB pCO2-Arterial 39 35 - 45 MMHG [facility] MAIN LAB pO2-Arterial 102 (H) 80 - 100 MMHG [facility] MAIN [facility] Base Deficit-Arterial 4.6 MMOL/L [facility] MAIN LAB O2 Sat-Arterial 97.5 95 - 99 % [facility] MAIN LAB Rfffsyoxbvg-EPX-Lbb 20.6 (L) 21 - 28 MMOL/L [facility] MAIN LAB Specimen Blood, arterial - Blood Performing Organization Address [facility] Phone Number MAIN LAB [address] [place] [address] * POC GLUCOSE (07/01/2018 3:05 PM) Glucose, POC 195 (H) 70 - 100 MG/DL [facility] MAIN [facility] Performing Organization Address [facility] Phone Number [employer] MAIN LAB [address] [place] [address] * CT HEAD WO CONTRAST (07/01/2018 2:46 [...] 72.37 % OTHER OUTSIDE LAB AV index ([place]) 0.56 OTHER OUTSIDE LAB E/A ratio 1.35 OTHER OUTSIDE LAB E/E' ratio 10.67 OTHER OUTSIDE LAB 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 Yasir RN OTHER OUTSIDE LAB LV mass 118.49 96 - 200 g OTHER OUTSIDE LAB RWT 0.36 <=0.42 OTHER OUTSIDE LAB TV rest pulmonary artery 22 mmHg OTHER OUTSIDE LAB pressure Right Heart Systolic TDI 0.110 m/s OTHER OUTSIDE LAB S' Cardiology Ultrasound Siemens [id number] OTHER OUTSIDE LAB Machine ECHO EF 60 [...] study available for comparison Performing Organization Address City/State/Zipcode Phone Number OTHER OUTSIDE LAB * CULTURE-BLOOD W/SENSITIVITY (07/01/2018 1:04 PM) Battery Name BLOOD CULTURE [facility] MAIN [facility] Specimen Description BLOOD [facility] MAIN [facility] LEFT ANTECUBITAL Special Requests NONE [facility] MAIN LAB Culture NO GROWTH 5 DAYS [facility] MAIN LAB Report Status FINAL MAIN LAB 07/07/2018 Specimen Blood Performing Organization Address [facility] Phone Number MA[facility] LAB [address] [place] [address] * POC GLUCOSE (07/01/2018 1:02 PM) Glucose, POC 169 (H) 70 - 100 MG/DL [facility] MAIN [facility] Performing Organization Address [facility] Phone Number [facility] LAB [address] [place] [address] * URINALYSIS MICROSCOPIC REFLEX TO CULTURE (07/01/2018 12:53 PM) WBCs,UA 0-2 0 - 2 /HPF [facility] MAIN LAB RBCs,UA 2-10 0 - 3 /HPF [facility] MAIN [facility] Comment,UA Urine submitted for reflex [facility] MAIN LAB culture if criteria are met:WBC>10, positive nitrite and/or >=1+ leukocyte esterase. If quantity is not sufficient, an addendum will follow. MucousUA TRACE MAIN LAB Specimen Urine Performing Organization Address [facility] Phone Number MAIN LAB [address] [phone] * URINALYSIS DIPSTICK REFLEX TO CULTURE (07/01/2018 12:53 PM) Color,UA STRAW MAIN LAB Turbidity,UA CLEAR CLEAR-CLEAR MAIN LAB Specific Mccleary-Urine 1.018 1.003 - 1.035 MAIN LAB pH,UA 5.0 5.0 - 8.0 K[facility] MAIN LAB Protein,UA NEG NEG-NEG MAIN LAB Glucose,UA 2+ (A) NEG-NEG MAIN LAB Ketones,UA NEG NEG-NEG MAIN LAB Bilirubin,UA NEG NEG-NEG MAIN LAB Blood,UA 1+ (A) NEG-NEG MAIN LAB Urobilinogen,UA NORMAL NORM-NORMAL MAIN LAB Nitrite,UA NEG NEG-NEG [facility] MAIN LAB Leukocytes,UA NEG NEG-NEG [facility] MAIN LAB Urine Ascorbic Acid, UA NEG NEG-NEG MAIN LAB Specimen Urine Performing Organization Address [facility] Phone Number MAIN LAB [address] [place] [address] * LACTIC ACID(LACTATE) (07/01/2018 12:50 PM) Lactic Acid 1.5 0.5 - 2.0 MMOL/L [facility] MAIN LAB Performing Organization Address [facility] Phone Number [facility] MAIN LAB [address] [place] [address] * BETA HYDROXYBUTYRATE (KETONES) (07/01/2018 12:50 PM) Beta Hydroxybutyrate 0.1 <0.3 MMOL/L [facility] MAIN LAB Comment: Beta hydroxybutyrate (BOHB) is the most abundant ketone (78%), followed by acetoacetate (20%) and acetone (2%).Measurement BOHB is recommended to assess ketones in DKA. Expected BOHB Results for DKA: Initial presentation high/increasing During treatment decreasing Resolved decreasing/normal Performing Organization Address [facility] Phone Number MAIN LAB [address] [place] [address] * LACTIC ACID (BG - RAPID LACTATE) (07/01/2018 12:50 PM) Lactic Acid,BG 1.5 0.5 - 2.0 MMOL/L [facility] MAIN LAB Specimen Blood Performing Organization Address [facility] Phone Number KU MAIN LAB [address] [phone] * CBC AND DIFF (07/01/2018 12:50 PM) White Blood Cells 9.5 4.5 - 11.0 K/UL MAIN LAB RBC 2.96 (L) 4.4 - 5.5 M/UL [facility] MAIN LAB Hemoglobin 8.7 (L) 13.5 - 16.5 GM/DL [facility] MAIN LAB Hematocrit 26.3 (L) 40 - 50 % [facility] MAIN LAB MCV 88.8 80 - 100 FL [facility] MAIN LAB MCH 29.4 26 - 34 PG [facility] MAIN LAB MCHC 33.0 32.0 - 36.0 G/DL [facility] MAIN LAB RDW 13.9 11 - 15 % [facility] MAIN LAB Platelet Count 297 150 - 400 K/UL [facility] MAIN LAB MPV 9.0 7 - 11 FL [facility] MAIN LAB Neutrophils 75 41 - 77 % [facility] MAIN LAB Lymphocytes 15 (L) 24 - 44 % [facility] MAIN LAB Monocytes 8 4 - 12 % [facility] MAIN LAB Eosinophils 2 0 - 5 % [facility] MAIN LAB Basophils 0 0 - 2 % [facility] MAIN LAB Absolute Neutrophil Count 7.10 (H) 1.8 - 7.0 K/UL [facility] MAIN LAB Absolute Lymph Count 1.50 1.0 - 4.8 K/UL [facility] MAIN LAB Absolute Monocyte Count 0.80 0 - 0.80 K/UL [facility] MAIN LAB Absolute Eosinophil Count 0.20 0 - 0.45 K/UL [facility] MAIN LAB Absolute Basophil Count 0.00 0 - 0.20 K/UL [facility] MAIN LAB Specimen Blood Performing Organization Address [facility] Phone Number [facility] MAIN LAB [address] [place] [address] * IONIZED CALCIUM (07/01/2018 12:50 PM) Ionized Calcium 1.14 1.0 - 1.3 MMOL/L MAIN LAB Specimen Blood Performing Organization Address [facility] Phone Number MAIN LAB [address] [phone] * PHOSPHORUS (07/01/2018 12:50 PM) Phosphorus 2.6 2.0 - 4.0 MG/DL [facility] MAIN LAB Specimen Blood Performing Organization Address [facility] Phone Number MAIN LAB [address] [phone] * MAGNESIUM (07/01/2018 12:50 PM) Magnesium 2.0 1.6 - 2.6 mg/dL MAIN LAB Specimen Blood Performing Organization Address [facility] Phone Number MAIN LAB [address] [place] [address] * LIPID PROFILE (07/01/2018 12:50 PM) Cholesterol [...] 130 mg/dL. Specimen Blood Performing Organization Address [facility] Phone Number MAIN LAB [address] [place] [address] * COMPREHENSIVE METABOLIC PANEL (07/01/2018 12:50 PM) [...] for questions. Specimen Blood Performing Organization Address [facility]/Zipcode Phone Number MAIN LAB [address] [place] [address] * HEMOGLOBIN A1C (07/01/2018 12:50 PM) Hemoglobin A1C 17.4 (H) 4.0 - 6.0 % [facility] MAIN LAB Comment: The ADA recommends that most patients with type 1 and type 2 diabetes maintain an A1c level <7%. Specimen Blood Performing Organization Address [facility]/Zipcode Phone Number MAIN LAB [address] [place] [address] * IR ARTERIOGRAM NEURO (07/01/2018 12:29 PM) [...] Fentanyl 25 mcg Contrast - 100 cc Eat253 Total mGy - 421 Anesthesia:conscious sedation Consent -The procedure was performed under emergent medical necessity. Clinical History:Mr. Anthnoy is a 57-year-old male who had acute [...] the sheath was advanced over a 5 Montserratian 125 cm Vert catheter over a 180 cm 0.035 [place] wire over the aortic arch and into [...] therefore, hemostasis was achieved using an 8 Montserratian Angioseal closure device followed by manual pressure [...] Fentanyl 25 mcg Contrast - 100 cc [id number] Total mGy - 421 Anesthesia: conscious sedation [...] the sheath was advanced over a 5 Montserratian 125 cm Vert catheter over a 180 cm 0.035 [place] wire over the aortic arch and into [...] therefore, hemostasis was achieved using an 8 [place]ian Angioseal closure device followed by manual pressure [...] teamat 11:51 AM on 07/01/2018 by the associate professor of radiology in consultation with TALIA BOSTON M.D.. Approved [...] at 11:51 AM on 07/01 by the associate professor of radiology in consultation with TALIA BOSTON M.D.. Approved [...] teamat 11:51 AM on 07/01/2018 by the associate professor of radiology in consultation with TALIA BOSTON M.D.. Approved [...] at 11:51 AM on 07/01 by the associate professor of radiology in consultation with TALIA BOSTON M.D.. Approved [...] teamat 11:51 AM on 07/01/2018 by the associate professor of radiology in consultation with TALIA BOSTON M.D.. Approved [...] right middle cerebral artery. 2. Loss of laar-white differentiation in the right lateral temporal lobe, [...] at 11:51 AM on 07/01 by the associate professor of radiology in consultation with TALIA BOSTON M.D.. Approved [...] RESULTS in this encounter Visit Diagnoses Diagnosis Acute blood loss anemia Acute posthemorrhagic anemia Admitting Diagnoses Diagnosis Stroke Stroke (HCC) Unspecified cerebral artery occlusion with cerebral infarction Administered Medications Medication Order MAR Action Action Date Dose Rate Site acetaminophen (TYLENOL) oral solution Given 07/06/2018 650 [...] document: Do not give with grapefruit juice. aspirin chewable tablet 81 mg Given 07/07/2018 81 mg 81 mg, Oral, DAILY, First dose on Fri 08:49 CDT 07/07/18 at 0900, Until Discontinued Given 07/08/2018 81 mg 08:43 CDT Given 07/09/2018 81 mg 09:55 CDT atorvastatin (LIPITOR) tablet 40 mg Given 07/06/2018 40 mg 40 mg, Oral, AT BEDTIME DAILY, First 20:54 CDT dose on 07/06/18 at 2100, Until Discontinued Given 07/07/2018 40 mg 20:43 CDT Given 07/08/2018 40 mg 21:59 CDT bisacodyl (DULCOLAX) rectal suppository 10 mg 10 mg, Rectal, DAILY PRN, Starting Padma 07/02/18 at 0649, Until Padma 07/09/18 at 1756, Constipation UT, Hold for loose stools heparin (porcine) PF syringe 5,000 Units Given 07/08/2018 5,000 Units Abdomen:LLQ 5,000 Units, Subcutaneous, EVERY 8 05:26 CDT HOURS, First dose on Padma 07/02/18 at 1400, Until Discontinued, NOTE: This is a HIGH ALERT Medication. Given 07/08/2018 5,000 Units Abdominal 21:56 CDT Tissue Given 07/09/2018 5,000 Units Abdominal 06:05 CDT Tissue insulin aspart U-100 (NOVOLOG FLEXPEN) Given 07/04/2018 2 Units Right Arm injection PEN 0-7 Units 08:47 CDT 0-7 Units, Subcutaneous, BEFORE MEALS AND AT BEDTIME, First dose on 07/04/18 at 0700, Until Discontinued, -POC glucose 140-180mg/dL at , , administer 1 unit insulin, at 21, 03* administer 0 units. -POC glucose 181-220mg/dL at , , administer 2 units insulin, at 21, 03* administer 1 unit. -POC glucose 221-260mg/dL at , administer 3 units insulin, at 21, 03* administer 2 units. -POC glucose 261-300mg/dL at , , administer 4 units insulin, at 21, 03* administer 3 units. -POC glucose 301-350mg/dL at , , administer 5 units insulin, at 21, 03* administer 4 units. -POC glucose 351-400mg/dL at , , administer 6 units insulin, at 21, 03* administer 5 units. -POC glucose >400mg/dL at 07, 11, 17 administer 7 units insulin, at 21, 03* [...] TIMES DAILY WITH MEALS, First dose on Padma 07/09/18 at 1200, Until Discontinued, Hold if NPO for procedure, unable to eat, or if FSBS < 70 mg/dL Give at start of meal. NOTE: This is a HIGH ALERT Medication. insulin glargine (LANTUS SOLOSTAR, Given 07/09/2018 20 Units Arm, Right BASAGLAR) injection PEN 20 Units 11:41 CDT 20 Units, Subcutaneous, DAILY, First dose on Fri07/09/18 at 1130, Until Discontinued, Continue if NPO. DO NOT mix with other insulins -- Do not mix with other insulins -- NOTE: This is a HIGH ALERT Medication. lisinopril (PRINIVIL; ZESTRIL) tablet 40 Given 07/07/2018 40 mg mg 08:49 CDT 40 mg, Oral, DAILY, First dose on Fri07/07/18 at 0900, Until Discontinued Given 07/08/2018 40 mg 08:42 CDT Given 07/09/2018 40 mg 09:55 CDT melatonin tablet 5 mg Given 07/08/2018 5 mg 5 mg, Oral, AT BEDTIME DAILY, First dose 21:59 CDT on Fri07/08/18 at 2100, Until Discontinued metoprolol tartrate (LOPRESSOR) tablet 25 mg 25 mg, Oral, TWICE DAILY, First dose on Padma 07/09/18 at 2100, Until Discontinued, Hold for heart rate < 70 bpm, sys BP<100, luis alberto BP<80 nortriptyline (PAMELOR) capsule 10 mg Given 07/06/2018 10 mg 10 mg, Oral, AT BEDTIME DAILY, First 20:54 CDT dose on Fri07/06/18 at 2100, Until Discontinued Given 07/07/2018 10 mg 20:43 CDT Given 07/08/2018 10 mg 21:59 CDT polyethylene glycol 3350 (MIRALAX) Given 07/05/2018 17 g packet 17 g 17:57 CDT 17 g (1 packet), Oral, DAILY, First dose on Fri07/05/18 at 1230, Until Discontinued, 8.5 GRAMS=0.5 PACKET 17 GRAMS=1 PACKET 34 GRAMS=2 PACKETS Given 07/06/2018 17 g 08:34 CDT QUEtiapine (SEROQUEL) tablet 25 mg Given 07/08/2018 25 mg 25 mg, Oral, TWICE DAILY, First dose on 08:43 CDT Fri07/03/18 at 1445, Until Discontinued Given 07/08/2018 25 mg 21:59 CDT Given 07/09/2018 25 mg 10:06 CDT senna/docusate (SENOKOT-S) solution 10 Given 07/06/2018 10 mL mL 20:54 CDT 10 mL, Oral, TWICE DAILY, First dose on Fri07/06/18 at 2100, Until Discontinued, Hold for loose stools. Note: 10 mL is equivalent to 1 senna/docusate tablet Given 07/07/2018 10 mL 20:43 CDT in this encounter
[2018-07-11 02:01] VITALS: BP 0/0
--- OUTSIDE RECORDS SUMMARY | 2018-07-11 02:01 | XMS REPORT | Encounter Summary ---
Author Author [facility] Organization [facility] Address Unknown Phone Unavailable Care Team Providers Care Academic Associate Name Role Phone Damien Caceres MD Unavailable Melo Adame MD Unavailable Unavailable Alvarez Ozuna NP PCP Hilary Davenport RN Unavailable Unavailable Encounter Details Date Type Department Care Team Description 07/01/2018 Procedure Pass [id number] [place] [address] Social History Tobacco Use Types Packs/Day Years Used Date Former Smoker Cigars 2 20 Quit: 10/20/2011 Smokeless Tobacco: Never Used Alcohol Use Drinks/Week oz/Week Comments No Sex Assigned at Date Recorded Not on file as of this encounter Plan of Treatment Not on fileas of this encounter Visit Diagnoses Not on filein this encounter
--- OUTSIDE RECORDS SUMMARY | 2018-07-11 02:01 | XMS REPORT | Encounter Summary ---
Author Author [facility] Organization [facility] Address Unknown Phone Unavailable Care Team Providers Care Cover Creaser Name Role Phone Damien Caceres MD Unavailable Melo Adame MD Unavailable Unavailable Alvarez Ozuna NP PCP Hilary Davenport RN Unavailable Unavailable Encounter Details Date Type Department Care Team Description 07/01/2018 Procedure Pass [id number] [place] [address] Social History Tobacco Use Types Packs/Day Years Used Date Former Smoker Cigars 2 20 Quit: 10/20/2011 Smokeless Tobacco: Never Used Alcohol Use Drinks/Week oz/Week Comments No Sex Assigned at Date Recorded Not on file as of this encounter Plan of Treatment Not on fileas of this encounter Visit Diagnoses Not on filein this encounter
--- OUTSIDE RECORDS SUMMARY | 2018-07-11 02:01 | XMS REPORT | Encounter Summary ---
Author Author [facility] Organization [facility] Address Unknown Phone Unavailable Care Team Providers Care Burn Out Tender Lace Name Role Phone Damien Caceres MD Unavailable Melo Adame MD Unavailable Unavailable Alvarez Ozuna NP PCP Hilary Davenport RN Unavailable Unavailable Encounter Details Date Type Department Care Team Description 07/01/2018 Procedure Pass [id number] [place] [address] Social History Tobacco Use Types Packs/Day Years Used Date Former Smoker Cigars 2 20 Quit: 10/20/2011 Smokeless Tobacco: Never Used Alcohol Use Drinks/Week oz/Week Comments No Sex Assigned at Date Recorded Not on file as of this encounter Plan of Treatment Not on fileas of this encounter Visit Diagnoses Not on filein this encounter
--- OUTSIDE RECORDS SUMMARY | 2018-07-11 02:01 | XMS REPORT | Encounter Summary ---
Author Author [facility] Organization [facility] Address Unknown Phone Unavailable Care Team Providers Care Psychiatry Resident Name Role Phone Damien Caceres MD Unavailable Melo Adame MD Unavailable Unavailable Alvarez Ozuna NP PCP Hilary Davenport RN Unavailable Unavailable Encounter Details Date Type Department Care Team Description 07/01/2018 Procedure Pass CA[id number] [place] [address] Social History Tobacco Use Types Packs/Day Years Used Date Former Smoker Cigars 2 20 Quit: 10/20/2011 Smokeless Tobacco: Never Used Alcohol Use Drinks/Week oz/Week Comments No Sex Assigned at Date Recorded Not on file as of this encounter Plan of Treatment Not on fileas of this encounter Visit Diagnoses Not on filein this encounter
--- OUTSIDE RECORDS SUMMARY | 2018-07-11 02:01 | XMS REPORT | Encounter Summary ---
Author Author [facility] Organization [facility] Address Unknown Phone Unavailable Care Team Providers Care Line Tester Name Role Phone Damien Caceres MD Unavailable Melo Adame MD Unavailable Unavailable Alvarez Ozuna NP PCP Hilary Davenport RN Unavailable Unavailable Encounter Details Date Type Department Care Team Description 07/01/2018 Procedure Pass CA[address] [place] [address] Social History Tobacco Use Types Packs/Day Years Used Date Former Smoker Cigars 2 20 Quit: 10/20/2011 Smokeless Tobacco: Never Used Alcohol Use Drinks/Week oz/Week Comments No Sex Assigned at Date Recorded Not on file as of this encounter Plan of Treatment Not on fileas of this encounter Visit Diagnoses Not on filein this encounter
== END 2018-07-11 02:01 | disposition home or self-care (01) ==
LOC: EDUNIT# 01:45 → ER 01:46
DX: T83.028A Displacement of other urinary catheter, initial encounter (principal); E78.00 Pure hypercholesterolemia, unspecified; I10 Essential (primary) hypertension; E11.42 Type 2 diabetes mellitus with diabetic polyneuropathy; F41.9 Anxiety disorder, unspecified; F32.9 Major depressive disorder, single episode, unspecified; Z82.49 Family history of ischemic heart disease and other diseases of the circulatory system; Z85.46 Personal history of malignant neoplasm of prostate; Z87.19 Personal history of other diseases of the digestive system; Z79.4 Long term (current) use of insulin; Z87.891 Personal history of nicotine dependence; Z90.79 Acquired absence of other genital organ(s)
CPT/HCPCS: 51702

== ENCOUNTER 2018-07-30 16:44 | Emergency (ER) | payer MEDICARE ==
[~2018-07-30] VITALS: Ht 167.6 cm; Wt 65.9 kg
--- NOTE | 2018-07-30 17:07 | ED General ---
General Chief Complaint: General Problems/Pain Stated Complaint: FEVER/CHILLS/NAUSEA Source of Information: Patient Exam Limitations: No Limitations History of Present Illness Date Seen by Provider: Jul 30, 2018 Time Seen by Provider: 17:05 Initial Comments To ER complaint by his with reports of fevers chills and nausea without vomiting. It's unclear exactly how long he has been having these symptoms, he states that he has not felt well and he had a stroke in June. He is an insulin-dependent diabetic, states that he is very thirsty. Denies any specific pains. Timing/Duration: Constant, Getting Worse Severity: Moderate Associated Systoms: Malaise, Nausea/Vomiting Allergies and Home Medications Allergies Coded Allergies: No Known Drug Allergies (Unverified , 06/29/18) Home Medications Atorvastatin Calcium 80 Mg Tablet, 40 MG PO HS, (Reported) TAKES 1/2 (80MG) TABLET Bupropion HCl 75 Mg Tablet, 75 MG PO BID, (Reported) Cholecalciferol (Vitamin D3) 1,000 Unit Capsule, 1,000 UNIT PO DAILY, (Reported) Cyanocobalamin (Vitamin B-12) 1,000 Mcg Tablet, 2,000 MCG PO DAILY, (Reported) Duloxetine HCl 30 Mg Capsule.dr, 90 MG PO DAILY, (Reported) TAKES 3 (30MG) CAPSULES Ferrous Sulfate 324 Mg Tablet.dr, 324 MG PO TID, (Reported) Folic Acid 1 Mg Tablet, 1 MG PO DAILY, (Reported) Insulin Aspart 300 Units/3 Ml Solution, 25 UNITS SQ AC, (Reported) Insulin Determir 1,000 Units/10 Ml Soln, 25 UNITS SQ HS, (Reported) Loperamide HCl 2 Mg Capsule, 2 MG PO UD PRN for DIARRHEA, (Reported) Metformin HCl 500 Mg Tablet, 500 MG PO BID, (Reported) Metoprolol Tartrate 50 Mg Tablet, 25 MG PO BID, (Reported) TAKES 1/2 (50MG) TABLETS Mirtazapine 15 Mg Tablet, 15 MG PO HS, (Reported) Pantoprazole Sodium 20 Mg Tablet.dr, 20 MG PO BID, (Reported) Pregabalin 100 Mg Capsule, 100 MG PO TID, (Reported) Urea 85 Gm Cream..g., TP BID PRN for DRY FEET, (Reported) Patient Home Medication List Home Medication List Reviewed: Yes Review of Systems Review of Systems Constitutional: see HPI, chills, fever, malaise EENTM: see HPI Respiratory: no symptoms reported Cardiovascular: no symptoms reported Gastrointestinal: nausea; No vomiting Genitourinary: no symptoms reported Musculoskeletal: no symptoms reported Skin: no symptoms reported Psychiatric/Neurological: No Symptoms Reported Hematologic/Lymphatic: No Symptoms Reported Past Yryvkaw-Pqjlqv-Ifrsmo Hx Patient Social History Type Used: Cigarettes Former Smoker, Quit: Oct 20, 2014 2nd Hand Smoke Exposure: No Recent Foreign Travel: No Contact w/Someone Who Travel: No Recent Hopitalizations: No Immunizations Up To Date Tetanus Booster (TDap): Less than 5yrs PED Vaccines UTD: No Date of Pneumonia Vaccine: Jul 17, 2015 Date of Influenza Vaccine: Jul 17, 2015 Seasonal Allergies Seasonal Allergies: No Past Medical History Surgeries: Yes (HEART CATH/ JAW SURGERY) Cardiac, Prostatectomy Respiratory: No (fmr smkr) Currently Using CPAP: No Currently Using BIPAP: No Cardiac: Yes (heart cath) High Cholesterol, Hypertension Neurological: Yes Neuropathy Reproductive Disorders: No Sexually Transmitted Disease: No HIV/AIDS: No Genitourinary: Yes Prostate Problems Gastrointestinal: Yes Chronic Diarrhea, C-Diff Musculoskeletal: Yes (CHRONIC NECK AND BACK PAIN ) Arthritis, Chronic Back Pain Endocrine: Yes Diabetes, Insulin dep Glaucoma Loss of Vision: Right Cancer: Yes Prostate What Type of Treatment Did You: Surgical Intervention Psychosocial: Yes Anxiety, Depression Integumentary: No Blood Disorders: No Adverse Reaction/Blood Tranf: No Family Medical History Family history: Hypertension 03 FATHER, Onset:40's - 50 03 MOTHER, Onset:40's - 50 History of - respiratory disease 03 MOTHER, Onset:50's - 60 Myocardial infarction 03 FATHER 03 MOTHER No Family History of: Abdominal aortic aneurysm Marquette's disease Alcoholism Aphasia Cancer Cancer of colon Cataract Chest pain Congenital heart disease Congestive heart failure Cystic fibrosis Dementia Dysphagia Family history: Allergy Family history: Alzheimer's disease Family history: Arthritis Family history: Asthma Family history: Breast disease Family history: Cardiovascular disease Family history: Coronary thrombosis Family history: Diabetes mellitus Family history: Gastrointestinal disease Family history: Glaucoma Family history: Osteoporosis Family history: Thyroid disorder Headache Hearing loss Heart disease Hereditary disease History of - anemia History of - disorder History of drug abuse Human immunodeficiency virus (HIV) seropositivity Hypercholesterolemia Infertile Kidney disease Malignant neoplasm of lung Parkinson's disease Prostate cancer Psychotic disorder Seizure disorder Stroke Tuberculosis Visual impairment No Pertinent Family Hx, Heart Disease, Hypertension Physical Exam Vital Signs Vital Signs - First Documented 07/30/18 16:58 Temp 97.7 Pulse 99 Resp 22 B/P (MAP) 155/93 (113) Pulse Ox 96 O2 Delivery Room Air Capillary Refill : Height, Weight, BMI Height: 5'6.00" Weight: 147lbs. 5.0oz. [id number]; 23.5 BMI Method:Stated General Appearance: No Apparent Distress, WD/WN Eyes: Bilateral Eye Normal Inspection, Bilateral Eye PERRL, Bilateral Eye EOMI HEENT: PERRL/EOMI Neck: Full Range of Motion, Normal Inspection Respiratory: No Accessory Muscle Use, No Respiratory Distress Cardiovascular: Regular Rate, Rhythm, Normal Peripheral Pulses Gastrointestinal: Normal Bowel Sounds, Non Tender, Soft, Other (suprapubic Dawson catheter in place) Extremity: Normal Capillary Refill, Normal Inspection Neurologic/Psychiatric: Alert, Oriented x3 Skin: Normal Color, Warm/Dry Focused Exam Lactate Level 07/30/18 17:11: Lactic Acid Level 1.65 Lactic Acid Level Laboratory Tests Test 07/30/18 17:11 Lactic Acid Level 1.65 MMOL/L (0.50-2.00) Progress/Results/Core Measures Suspected Sepsis SIRS Temperature: Pulse: Respiratory Rate: Laboratory Tests 07/30/18 17:11: White Blood Count 14.0H Blood Pressure / Mean: 07/30/18 17:11: Lactic Acid Level 1.65 Laboratory Tests 07/30/18 17:11: Creatinine 1.25, Platelet Count 611H, Total Bilirubin 0.9 Results/Orders Lab Results Laboratory Tests Test 07/30/18 17:11 07/30/18 20:12 Range/Units White Blood Count 14.0 H 4.3-11.0 10^3/uL Red Blood Count 3.88 L 4.35-5.85 10^6/uL Hemoglobin 11.1 L 13.3-17.7 G/DL Hematocrit 34 L 40-54 % Mean Corpuscular Volume 87 80-99 FL Mean Corpuscular Hemoglobin 29 25-34 PG Mean Corpuscular Hemoglobin Concent 33 32-36 G/DL Red Cell Distribution Width 13.6 10.0-14.5 % Platelet Count 611 H 130-400 10^3/uL Mean Platelet Volume 10.5 H 7.4-10.4 FL Neutrophils (%) (Auto) 85 H 42-75 % Lymphocytes (%) (Auto) 9 L 12-44 % Monocytes (%) (Auto) 5 0-12 % Eosinophils (%) (Auto) 0 0-10 % Basophils (%) (Auto) 0 0-10 % Neutrophils # (Auto) 11.9 H 1.8-7.8 X 10^3 Lymphocytes # (Auto) 1.3 1.0-4.0 X 10^3 Monocytes # (Auto) 0.8 0.0-1.0 X 10^3 Eosinophils # (Auto) 0.1 0.0-0.3 10^3/uL Basophils # (Auto) 0.0 0.0-0.1 10^3/uL Neutrophils % (Manual) 89 % Lymphocytes % (Manual) 6 % Monocytes % (Manual) 5 % Eosinophils % (Manual) 0 % Basophils % (Manual) 0 % Band Neutrophils 0 % Blood Morphology Comment NORMAL Sodium Level 137 135-145 MMOL/L Potassium Level 3.6 3.6-5.0 MMOL/L Chloride Level 98 98-107 MMOL/L Carbon Dioxide Level 23 21-32 MMOL/L Anion Gap 16 H 5-14 MMOL/L Blood Urea Nitrogen 16 7-18 MG/DL Creatinine 1.25 0.60-1.30 MG/DL Estimat Glomerular Filtration Rate 59 BUN/Creatinine Ratio 13 Glucose Level 281 H 70-105 MG/DL Glucometer 296 H 70-110 MG/DL Lactic Acid Level 1.65 0.50-2.00 MMOL/L Calcium Level 10.4 H 8.5-10.1 MG/DL Corrected Calcium 10.6 H 8.5-10.1 MG/DL Total Bilirubin 0.9 0.1-1.0 MG/DL Aspartate Amino Transf (AST/SGOT) 12 5-34 U/L Alanine Aminotransferase (ALT/SGPT) 16 0-55 U/L Alkaline Phosphatase 148 H 40-136 U/L Total Protein 7.6 6.4-8.2 GM/DL Albumin 3.8 3.2-4.5 GM/DL Urine Color YELLOW Urine Clarity VERY CLOUDY H Urine pH 5 5-9 Urine Specific [place] 1.025 H 1.016-1.022 Urine Protein 4+ NEGATIVE Urine Glucose (UA) 3+ H NEGATIVE Urine Ketones 3+ H NEGATIVE Urine Nitrite NEGATIVE NEGATIVE Urine Bilirubin 1+ H NEGATIVE Urine Urobilinogen NORMAL NORMAL MG/DL Urine Leukocyte Esterase 3+ H NEGATIVE Urine RBC (Auto) 4+ H NEGATIVE Urine RBC 2-5 H /HPF Urine WBC TNTC H /HPF Urine Crystals NONE /LPF Urine Bacteria FEW H /HPF Urine Casts NONE /LPF Urine Mucus NEGATIVE /LPF Urine Culture Indicated YES Micro Results Microbiology 07/30/18 Influenza Types A,B Antigen (LUIS) - Final, Complete My Orders Orders - HATTIE BUSH APRN Cbc With Automated Diff (07/30/18 17:03) Comprehensive Metabolic Panel (07/30/18 17:03) Blood Culture (07/30/18 17:03) Lactic Acid Analyzer (07/30/18 17:03) Ua Culture If Indicated (07/30/18 17:03) Chest 1 View, Ap/Pa Only (07/30/18 17:03) Iv Heplock-Insert (Order) (07/30/18 17:03) Ns Iv 1000 Ml (Sodium Chloride 0.9%) (07/30/18 17:15) Ondansetron Injection (Zofran Injectio (07/30/18 17:15) Ibuprofen Tablet (Motrin Tablet) (07/30/18 17:15) Accucheck Stat ONCE (07/30/18 17:03) Influenza A And B Antigens (07/30/18 17:03) Ekg Tracing (07/30/18 17:07) Continuous Ekg Monitoring (07/30/18 17:07) Manual Differential (07/30/18 17:11) Urine Culture (07/30/18 20:12) Ceftriaxone For Iv Use (Rocephin For I (07/30/18 21:00) Medications Given in ED Current Medications Medications Dose Ordered Sig/Anitra Route Start Time Stop Time Status Last Admin Dose Admin Ibuprofen 800 mg ONCE ONCE PO 07/30/18 17:15 07/30/18 17:16 DC 07/30/18 17:32 800 MG Ondansetron HCl 8 mg ONCE ONCE IVP 07/30/18 17:15 07/30/18 17:16 DC 07/30/18 17:32 8 MG Vital Signs/I&O 07/30/18 07/30/18 16:58 17:32 Temp 97.7 97.7 Pulse 99 Resp 22 B/P (MAP) 155/93 (113) Pulse Ox 96 O2 Delivery Room Air Capillary Refill : Departure Communication (Admissions) 2051-I discussed the diagnosis of urinary tract infection with the patient. He states "can I go home?!". States that he did not even want to come to the hospital tonight and certainly does not want to stay in the hospital if it is not absolutely necessary. Discussed with him that he can go home after a dose of IV Rocephin as long as he promises to return for any fevers or uncontrollable nausea vomiting or chills or general worsening. agrees to bring him back for any of these symptoms as well. They would like antibiotics sent in to [facility] in [place]. Impression Primary Impression: Urinary tract infection Disposition: HOME, SELF-CARE Condition: Stable Departure-Patient Inst. Decision time for Depature: 20:54 Referrals: LULU FLOWERS (PCP/Family) Primary Care Physician Patient Instructions: Urinary Tract Infection, Adult (DC) Add. Discharge Instructions: 1. You must return promptly to the emergency room for any fevers, confusion, general worsening. Start the antibiotics tomorrow morning and use the nausea medication as needed. All discharge instructions reviewed with patient and/or family. Voiced understanding. Scripts Cefdinir (Cefdinir) 300 Mg Capsule 300 MG PO BID, #14 CAP Prov: HATTIE BUSH APRN 07/30/18 HATTIE BUSH APRN Jul 30, 2018 17:07
[2018-07-30] MEDS ORDERED: ONDANSETRON 4 MG/2 ML (SDV) Z0FRAN IVP ONE (17:15)
[2018-07-30] MEDS ORDERED: IBUPROFEN 800 MG (MOTRIN) TAB PO ONE (17:15)
[2018-07-30] MEDS ORDERED: NS IV 1000 ML 1,000 ML IV SCH (17:15)
[2018-07-30 17:28] LABS: BASOPHILS % (AUTO) 0 % (0-10); EOSINOPHILS # (AUTO) 0.1 10^3/uL (0.0-0.3); EOSINOPHILS % (AUTO) 0 % (0-10); HEMATOCRIT 34 % (40-54); HEMOGLOBIN 11.1 G/DL (13.3-17.7); LYMPHOCYTES # (AUTO) 1.3 X 10^3 (1.0-4.0); LYMPHOCYTES % (AUTO) 9 % (12-44); MEAN CORPUSCULAR HEMOGLOBIN 29 PG (25-34); MEAN CORPUSCULAR HGB CONC 33 G/DL (32-36); MEAN CORPUSCULAR VOLUME 87 FL (80-99); MEAN PLATELET VOLUME 10.5 FL (7.4-10.4); MONOCYTES # (AUTO) 0.8 X 10^3 (0.0-1.0); MONOCYTES % (AUTO) 5 % (0-12); NEUTROPHILS # (AUTO) 11.9 X 10^3 (1.8-7.8); NEUTROPHILS % (AUTO) 85 % (42-75); PLATELET COUNT 611 10^3/uL (130-400); RED BLOOD COUNT 3.88 10^6/uL (4.35-5.85); RED CELL DISTRIBUTION WIDTH 13.6 % (10.0-14.5)
[2018-07-30 17:44] LABS: ALBUMIN 3.8 GM/DL (3.2-4.5); BILIRUBIN,TOTAL 0.9 MG/DL (0.1-1.0); CALCIUM 10.4 MG/DL (8.5-10.1); CREATININE SERUM 1.25 MG/DL (0.60-1.30); POTASSIUM 3.6 MMOL/L (3.6-5.0); TOTAL PROTEIN 7.6 GM/DL (6.4-8.2)
[2018-07-30 17:51] LABS: BAND NEUTROPHILS 0 %; BASOPHILS % (MANUAL) 0 %; EOSINOPHILS % (MANUAL) 0 %; LYMPHOCYTES % (MANUAL) 6 %; MONOCYTES % (MANUAL) 5 %; NEUTROPHILS % (MANUAL) 89 %; RBC MORPH NORMAL
--- NOTE | 2018-07-30 18:04 | Diagnostic Imaging Report ---
INDICATION: Fever. COMPARISON: 07/01/2018. FINDINGS: The visualized lungs are clear. Posterior lower lobes are poorly evaluated by portable radiography. No pleural effusion or pneumothorax. Borderline cardiomegaly is unchanged. Normal pulmonary vasculature. IMPRESSION: No acute cardiopulmonary process by portable radiography. Dictated by: Dictated on workstation # [id number]
[2018-07-30 20:18] LABS: CLARITY,URINE VERY CLOUDY; COLOR,URINE YELLOW; GLUCOSE, URINE (UA) 3+ (NEGATIVE); KETONES,URINE 3+ (NEGATIVE); LEUKOCYTE ESTERASE ,URINE 3+ (NEGATIVE); NITRITE,URINE NEGATIVE (NEGATIVE); PH,URINE 5 (5-9); PROTEIN,URINE 4+ (NEGATIVE); UROBILINOGEN,URINE NORMAL (NORMAL)
[2018-07-30 20:28] LABS: BILIRUBIN,URINE 1+ (NEGATIVE)
[2018-07-30 20:33] LABS: BACTERIA,URINE FEW /HPF; WBC,URINE TNTC /HPF
[2018-07-30] MEDS ORDERED: CEFD300C3 PO (20:56)
[2018-07-30] MEDS ORDERED: cefTRIAXone FOR IV USE 1,000 MG in NS (IVPB) 50 ML IV ONE (21:00)
[2018-07-30 21:27] VITALS: BP 171/82
== END 2018-07-30 21:27 | disposition home or self-care (01) ==
LOC: EDUNIT# 16:44 → ER 16:45
DX: N39.0 Urinary tract infection, site not specified (principal); E11.9 Type 2 diabetes mellitus without complications; E78.00 Pure hypercholesterolemia, unspecified; I10 Essential (primary) hypertension; F41.9 Anxiety disorder, unspecified; F32.9 Major depressive disorder, single episode, unspecified; Z82.49 Family history of ischemic heart disease and other diseases of the circulatory system; Z85.46 Personal history of malignant neoplasm of prostate; Z87.19 Personal history of other diseases of the digestive system; Z90.79 Acquired absence of other genital organ(s); Z79.4 Long term (current) use of insulin; Z87.891 Personal history of nicotine dependence
CPT/HCPCS: 36415; 71045; 80053; 81000; 82962; 83605; 85007; 85027; 87040; 87077; 87088; 87186; 87804; 93005

== ENCOUNTER 2018-08-01 06:35 | Emergency (ER) | payer MEDICARE ==
[~2018-08-01] VITALS: Ht 167.6 cm; Wt 67.6 kg
[~2018-08-01 06:35] MED LIST changes: +CEFD300C3 PO
[2018-08-01] MEDS ORDERED: NS IV 1000 ML 1,000 ML IV ONE (06:52)
[2018-08-01] MEDS ORDERED: ONDANSETRON 4 MG/2 ML (SDV) Z0FRAN IVP ONE (07:00)
[2018-08-01 07:13] LABS: BASOPHILS % (AUTO) 0 % (0-10); EOSINOPHILS # (AUTO) 0.2 10^3/uL (0.0-0.3); EOSINOPHILS % (AUTO) 2 % (0-10); HEMATOCRIT 29 % (40-54); HEMOGLOBIN 9.8 G/DL (13.3-17.7); LYMPHOCYTES # (AUTO) 1.7 X 10^3 (1.0-4.0); LYMPHOCYTES % (AUTO) 16 % (12-44); MEAN CORPUSCULAR HEMOGLOBIN 30 PG (25-34); MEAN CORPUSCULAR HGB CONC 34 G/DL (32-36); MEAN CORPUSCULAR VOLUME 88 FL (80-99); MEAN PLATELET VOLUME 10.3 FL (7.4-10.4); MONOCYTES # (AUTO) 0.8 X 10^3 (0.0-1.0); MONOCYTES % (AUTO) 8 % (0-12); NEUTROPHILS # (AUTO) 7.7 X 10^3 (1.8-7.8); NEUTROPHILS % (AUTO) 74 % (42-75); PLATELET COUNT 511 10^3/uL (130-400); RED BLOOD COUNT 3.29 10^6/uL (4.35-5.85); RED CELL DISTRIBUTION WIDTH 13.4 % (10.0-14.5); WHITE BLOOD COUNT 10.4 10^3/uL (4.3-11.0)
[2018-08-01 07:33] LABS: ALANINE AMINOTRANSFERASE 14 U/L (0-55); ALBUMIN 3.7 GM/DL (3.2-4.5); ALKALINE PHOSPHATASE 133 U/L (40-136); BILIRUBIN,TOTAL 0.5 MG/DL (0.1-1.0); BUN/CREATININE RATIO 11; CALCIUM 9.6 MG/DL (8.5-10.1); CARBON DIOXIDE 24 MMOL/L (21-32); CHLORIDE 100 MMOL/L (98-107); CREATININE SERUM 1.14 MG/DL (0.60-1.30); GFR ESTIMATED > 60; GLUCOSE 352 MG/DL (70-105); INR 0.9 (0.8-1.4); POTASSIUM 4.3 MMOL/L (3.6-5.0); PROTHROMBIN TIME PATIENT 12.3 SEC (12.2-14.7); SODIUM 138 MMOL/L (135-145); TOTAL PROTEIN 7.1 GM/DL (6.4-8.2)
--- NOTE | 2018-08-01 07:54 | Diagnostic Imaging Report ---
INDICATION: Chills, cough, congestion COMPARISON: 07/30/2018 TECHNIQUE: Single frontal radiograph of the chest dated August 01, 2018. FINDINGS: The cardiac silhouette is within normal limits in size. No significant pulmonary vascular congestion. The lungs are clear. No pleural effusion. No pneumothorax. No acute osseous abnormality. IMPRESSION: Stable examination without acute cardiopulmonary abnormality. Dictated by: Dictated on workstation # [id number]
--- NOTE | 2018-08-01 08:03 | ED General ---
General Chief Complaint: Fever-Adult/Adol Stated Complaint: FEVER,CHILLS,NAUSEA Nursing Triage Note: C/O FEVER NAUSEA WITH COUGH Nursing Sepsis Screen: No Definite Risk Source of Information: Patient Exam Limitations: No Limitations History of Present Illness Date Seen by Provider: Aug 01, 2018 Time Seen by Provider: 06:45 Initial Comments This 58-year-old man presents to the emergency room with complaints of extreme nausea without vomiting, chills, diaphoresis at home, and slightly productive cough. His states he may have had a little bit of red in his sputum. Patient was seen a couple days ago for urinary tract infection. He had leukocytosis at that time and was treated with IV Rocephin followed by outpatient prescription for Cefdinir. Patient has a suprapubic catheter. Allergies and Home Medications Allergies Coded Allergies: No Known Drug Allergies (Unverified , 06/29/18) Home Medications Atorvastatin Calcium 80 Mg Tablet, 40 MG PO HS, (Reported) TAKES 1/2 (80MG) TABLET Bupropion HCl 75 Mg Tablet, 75 MG PO BID, (Reported) Cefdinir 300 Mg Capsule, 300 MG PO BID Prescribed by: HATTIE BUSH on 07/30/182055 Cholecalciferol (Vitamin D3) 1,000 Unit Capsule, 1,000 UNIT PO DAILY, (Reported) Cyanocobalamin (Vitamin B-12) 1,000 Mcg Tablet, 2,000 MCG PO DAILY, (Reported) Duloxetine HCl 30 Mg Capsule.dr, 90 MG PO DAILY, (Reported) TAKES 3 (30MG) CAPSULES Ferrous Sulfate 324 Mg Tablet.dr, 324 MG PO TID, (Reported) Folic Acid 1 Mg Tablet, 1 MG PO DAILY, (Reported) Insulin Aspart 300 Units/3 Ml Solution, 25 UNITS SQ AC, (Reported) Insulin Determir 1,000 Units/10 Ml Soln, 25 UNITS SQ HS, (Reported) Loperamide HCl 2 Mg Capsule, 2 MG PO UD PRN for DIARRHEA, (Reported) Metformin HCl 500 Mg Tablet, 500 MG PO BID, (Reported) Metoprolol Tartrate 50 Mg Tablet, 25 MG PO BID, (Reported) TAKES 1/2 (50MG) TABLETS Mirtazapine 15 Mg Tablet, 15 MG PO HS, (Reported) Nitrofurantoin Monohyd/M-Cryst 100 Mg Capsule, 1 TAB PO BID Prescribed by: ALISE AVELAR on 08/01/18850 Ondansetron 4 Mg Tab.rapdis, 4 MG SL Q4H PRN for NAUSEA/VOMITING-1ST LINE Prescribed by: ALISE AVELAR on 08/01/18850 Pantoprazole Sodium 20 Mg Tablet.dr, 20 MG PO BID, (Reported) Pregabalin 100 Mg Capsule, 100 MG PO TID, (Reported) Urea 85 Gm Cream..g., TP BID PRN for DRY FEET, (Reported) Patient Home Medication List Home Medication List Reviewed: Yes Review of Systems Review of Systems Constitutional: see HPI, chills EENTM: no symptoms reported Respiratory: see HPI Cardiovascular: no symptoms reported Gastrointestinal: see HPI Genitourinary: see HPI Musculoskeletal: no symptoms reported Skin: no symptoms reported Psychiatric/Neurological: No Symptoms Reported Hematologic/Lymphatic: No Symptoms Reported Immunological/Allergic: no symptoms reported Past Aiucrbm-Wtvaze-Mobykl Hx Patient Social History Alcohol Use: Denies Use Recreational Drug Use: No Smoking Status: Current Everyday Smoker Type Used: Cigarettes Former Smoker, Quit: Oct 20, 2014 2nd Hand Smoke Exposure: No Recent Foreign Travel: No Contact w/Someone Who Travel: No Recent Infectious Disease Expo: No Recent Hopitalizations: No Immunizations Up To Date Tetanus Booster (TDap): Less than 5yrs PED Vaccines UTD: No Date of Pneumonia Vaccine: Jul 17, 2015 Date of Influenza Vaccine: Jul 17, 2015 Seasonal Allergies Seasonal Allergies: No Past Medical History Surgeries: Yes (HEART CATH/ JAW SURGERY) Bladder Surgery (suprapubic catheter), Cardiac, Prostatectomy Respiratory: No (fmr smkr) Currently Using CPAP: No Currently Using BIPAP: No Cardiac: Yes (heart cath) High Cholesterol, Hypertension Neurological: Yes Neuropathy, Stroke Reproductive Disorders: No Sexually Transmitted Disease: No HIV/AIDS: No Genitourinary: Yes Prostate Problems Gastrointestinal: Yes Chronic Diarrhea, C-Diff Musculoskeletal: Yes (CHRONIC NECK AND BACK PAIN ) Arthritis, Chronic Back Pain Endocrine: Yes Diabetes, Insulin dep Glaucoma Loss of Vision: Right Cancer: Yes Prostate What Type of Treatment Did You: Surgical Intervention Psychosocial: Yes Anxiety, Depression Integumentary: No Blood Disorders: No Adverse Reaction/Blood Tranf: No Family Medical History Family history: Hypertension 03 FATHER, Onset:40's - 50 03 MOTHER, Onset:40's - 50 History of - respiratory disease 03 MOTHER, Onset:50's - 60 Myocardial infarction 03 FATHER 03 MOTHER No Family History of: Abdominal aortic aneurysm Lesage's disease Alcoholism Aphasia Cancer Cancer of colon Cataract Chest pain Congenital heart disease Congestive heart failure Cystic fibrosis Dementia Dysphagia Family history: Allergy Family history: Alzheimer's disease Family history: Arthritis Family history: Asthma Family history: Breast disease Family history: Cardiovascular disease Family history: Coronary thrombosis Family history: Diabetes mellitus Family history: Gastrointestinal disease Family history: Glaucoma Family history: Osteoporosis Family history: Thyroid disorder Headache Hearing loss Heart disease Hereditary disease History of - anemia History of - disorder History of drug abuse Human immunodeficiency virus (HIV) seropositivity Hypercholesterolemia Infertile Kidney disease Malignant neoplasm of lung Parkinson's disease Prostate cancer Psychotic disorder Seizure disorder Stroke Tuberculosis Visual impairment No Pertinent Family Hx, Heart Disease, Hypertension Physical Exam-Suspected Sepsis Physical Exam Vital Signs Vital Signs - First Documented 08/01/18 06:50 Temp 97.4 Pulse 80 Resp 18 B/P (MAP) 194/87 (122) Pulse Ox 93 O2 Delivery Room Air Capillary Refill : Less Than 3 Seconds Blood Pressure Mean: 122 Height, Weight, BMI Height: 5'6.00" Weight: 149lbs. 5.0oz. [id number]; 23.5 BMI Method:Stated General Appearance: WD/WN, Mild Distress HEENT: PERRL/EOMI, Normal ENT Inspection, Pharynx Normal Neck: Normal Inspection Respiratory: Lungs Clear, Normal Breath Sounds, No Accessory Muscle Use, No Respiratory Distress Cardiovascular: Regular Rate, Rhythm, No Edema, No Murmur Gastrointestinal: Normal Bowel Sounds, Non Tender, Soft Extremity: Normal Inspection, No Pedal Edema Neurologic/Psychiatric: Alert, Oriented x3, No Motor/Sensory Deficits, Normal Mood/Affect, palliative care coordinator II-XII Norm as Tested Skin: normal color, warm/dry Focused Exam Lactate Level 08/01/18 07:02: Lactic Acid Level 1.18 Lactic Acid Level Laboratory Tests Test 08/01/18 07:02 Lactic Acid Level 1.18 MMOL/L (0.50-2.00) Progress/Results/Core Measures Suspected Sepsis Recent Fever Within 48 Hours: Yes Infection Criteria Present: None New/Unexplained Altered Menta: No Sepsis Screen: No Definite Risk SIRS Temperature:97.4 Pulse: 80 Respiratory Rate: 18 Laboratory Tests 08/01/18 07:02: White Blood Count 10.4 Blood Pressure 194 /87 Mean: 122 10/13/18 07:02: Lactic Acid Level 1.18 Laboratory Tests 08/01/18 07:02: Creatinine 1.14, INR Comment 0.9, Platelet Count 511H, Total Bilirubin 0.5 Results/Orders Lab Results Laboratory Tests Test 08/01/18 06:49 08/01/18 07:02 08/01/18 08:12 Range/Units Glucometer 325 H 70-110 MG/DL White Blood Count 10.4 4.3-11.0 10^3/uL Red Blood Count 3.29 L 4.35-5.85 10^6/uL Hemoglobin 9.8 L 13.3-17.7 G/DL Hematocrit 29 L 40-54 % Mean Corpuscular Volume 88 80-99 FL Mean Corpuscular Hemoglobin 30 25-34 PG Mean Corpuscular Hemoglobin Concent 34 32-36 G/DL Red Cell Distribution Width 13.4 10.0-14.5 % Platelet Count 511 H 130-400 10^3/uL Mean Platelet Volume 10.3 7.4-10.4 FL Neutrophils (%) (Auto) 74 42-75 % Lymphocytes (%) (Auto) 16 12-44 % Monocytes (%) (Auto) 8 0-12 % Eosinophils (%) (Auto) 2 0-10 % Basophils (%) (Auto) 0 0-10 % Neutrophils # (Auto) 7.7 1.8-7.8 X 10^3 Lymphocytes # (Auto) 1.7 1.0-4.0 X 10^3 Monocytes # (Auto) 0.8 0.0-1.0 X 10^3 Eosinophils # (Auto) 0.2 0.0-0.3 10^3/uL Basophils # (Auto) 0.0 0.0-0.1 10^3/uL Prothrombin Time 12.3 12.2-14.7 SEC INR Comment 0.9 0.8-1.4 Activated Partial Thromboplast Time 27 24-35 SEC Sodium Level 138 135-145 MMOL/L Potassium Level 4.3 3.6-5.0 MMOL/L Chloride Level 100 98-107 MMOL/L Carbon Dioxide Level 24 21-32 MMOL/L Anion Gap 14 5-14 MMOL/L Blood Urea Nitrogen 13 7-18 MG/DL Creatinine 1.14 0.60-1.30 MG/DL Estimat Glomerular Filtration Rate > 60 BUN/Creatinine Ratio 11 Glucose Level 352 H 70-105 MG/DL Lactic Acid Level 1.18 0.50-2.00 MMOL/L Calcium Level 9.6 8.5-10.1 MG/DL Corrected Calcium 9.8 8.5-10.1 MG/DL Total Bilirubin 0.5 0.1-1.0 MG/DL Aspartate Amino Transf (AST/SGOT) 11 5-34 U/L Alanine Aminotransferase (ALT/SGPT) 14 0-55 U/L Alkaline Phosphatase 133 40-136 U/L C-Reactive Protein High Sensitivity 3.34 H 0.00-0.50 MG/DL Total Protein 7.1 6.4-8.2 GM/DL Albumin 3.7 3.2-4.5 GM/DL Urine Color YELLOW Urine Clarity CLEAR Urine pH 6 5-9 Urine Specific [place] 1.010 L 1.016-1.022 Urine Protein 3+ H NEGATIVE Urine Glucose (UA) 4+ H NEGATIVE Urine Ketones 1+ H NEGATIVE Urine Nitrite NEGATIVE NEGATIVE Urine Bilirubin NEGATIVE NEGATIVE Urine Urobilinogen NORMAL NORMAL MG/DL Urine Leukocyte Esterase 2+ H NEGATIVE Urine RBC (Auto) 1+ H NEGATIVE Urine RBC NONE /HPF Urine WBC 5-10 H /HPF Urine Squamous Epithelial Cells NONE /HPF Urine Crystals NONE /LPF Urine Bacteria NEGATIVE /HPF Urine Casts NONE /LPF Urine Mucus NEGATIVE /LPF Urine Yeast FEW H /HPF Urine Culture Indicated NO Micro Results Microbiology 08/01/18 Influenza Types A,B Antigen (LUIS) - Final, Complete My Orders Orders - ALISE FOX MD Cbc With Automated Diff (08/01/18 06:52) Comprehensive Metabolic Panel (08/01/18 06:52) Blood Culture (08/01/18 06:52) Sputum Culture (08/01/18 06:52) Urinalysis (08/01/18 06:52) Urine Culture (08/01/18 06:52) Protime With Inr (08/01/18 06:52) Partial Thromboplastin Time (08/01/18 06:52) Chest 1 View, Ap/Pa Only (08/01/18 06:52) Saline Lock/Iv-Start (08/01/18 06:52) Saline Lock/Iv-Start (08/01/18 06:52) Vital Signs Adult Sepsis Patie Q15M (08/01/18 06:52) O2 (08/01/18 06:52) Remove Rings In Anticipation O (08/01/18 06:52) Lactic Acid Analyzer (08/01/18 06:52) Ns Iv 1000 Ml (Sodium Chloride 0.9%) (08/01/18 06:52) Ondansetron Injection (Zofran Injectio (08/01/18 07:00) Influenza A And B Antigens (08/01/18 06:53) Hs C Reactive Protein (08/01/18 07:30) Urine Culture (08/01/18 08:33) Medications Given in ED Current Medications Medications Dose Ordered Sig/Anitra Route Start Time Stop Time Status Last Admin Dose Admin Ondansetron HCl 8 mg ONCE ONCE IVP 08/01/18 07:00 08/01/18 07:01 DC 08/01/18 07:16 8 MG Sodium Chloride 1,000 ml @ 0 mls/hr Q0M ONCE IV 08/01/18 06:52 08/01/18 06:55 DC 08/01/18 07:16 1,000 MLS/HR Vital Signs/I&O 08/01/18 06:50 Temp 97.4 Pulse 80 Resp 18 B/P (MAP) 194/87 (122) Pulse Ox 93 O2 Delivery Room Air Capillary Refill : Less Than 3 Seconds Blood Pressure Mean: 122 Progress Note #1: Time: 08:00 Progress Note Patient was treated with Zofran 8 mg IV and a liter of IV fluid. Labs so far been unremarkable. UA is still pending as patient has not produced fresh urine. O2 by nasal canula was applied as patient's O2 sat was around 90% on RA. He has been burying his head under the blankets. Influenza screen was negative. Progress Note #2: Time: 08:56 Progress Note Patient was feeling much better after receiving IV fluids and Zofran. Review of urine culture from prior visit demonstrated Enterococcus faecalis and Klebsiella pneumoniae. The Klebsiella should be covered with the Omnicef he is taking. However, Macrobid will be added for better treatment of the enterococcus. Diagnostic Imaging Diagonstic Imaging: Xray Plain Films/CT/US/NM/MRI: chest Comments Chest x-ray viewed by me and report reviewed. See report below: NAME: VALDEZ PRITCHETT [facility] REC#: [id number] PT STATUS: REG ER : 1960 PHYSICIAN: ALISE FOX MD ADMIT DATE: 08/01/18/ER Draft Date of Exam:08/01/18 CHEST 1 VIEW, AP/PA ONLY INDICATION: Chills, cough, congestion COMPARISON: 07/30/2018 TECHNIQUE: Single frontal radiograph of the chest dated August 01, 2018. FINDINGS: The cardiac silhouette is within normal limits in size. No significant pulmonary vascular congestion. The lungs are clear. No pleural effusion. No pneumothorax. No acute osseous abnormality. IMPRESSION: Stable examination without acute cardiopulmonary abnormality. Dictated on workstation # [id number] Dict: 08/01/18 0745 Trans: 08/01/18 0754 [facility] [id number] Interpreted by: MAYA LIRA MD Departure Impression Primary Impression: Urinary tract infection Qualified Codes: N39.0 - Urinary tract infection, site not specified Additional Impressions: Nausea alone Cough Chills Hyperglycemia Disposition: 01 HOME, SELF-CARE Condition: Improved Departure-Patient Inst. Decision time for Depature: 08:40 Referrals: NO,LOCAL PHYSICIAN (PCP) Primary Care Physician LULU FLOWERS (Family) Primary Care Physician Patient Instructions: Urinary Tract Infection, Adult (DC) Add. Discharge Instructions: Complete your antibiotics as prescribed. Add the nitrofurantoin (Macrobid) as prescribed for additional treatment. Drink plenty of clear liquids. Start with a clear liquid diet today and gradually advance your diet with small quantities of bland food as tolerated. Use Zofran (ondansetron) as prescribed for treatment of nausea. Return to care if symptoms worsen. Monitor your blood sugars closely today and avoid high sugar, high carbohydrate foods. Use sliding scale to manage high blood sugars as previously instructed by your doctor. All discharge instructions reviewed with patient and/or family. Voiced understanding. Scripts Ondansetron (Zofran Odt) 4 Mg Tab.rapdis 4 MG SL Q4H PRN for NAUSEA/VOMITING-1ST LINE, #10 TAB Prov: ALISE FOX MD 08/01/18 Nitrofurantoin Monohyd/M-Cryst (Macrobid 100 mg Capsule) 100 Mg Capsule 1 TAB PO BID, #14 CAP Prov: ALISE FOX MD 08/01/18 ALISE FOX MD Aug 01, 2018 08:02
[2018-08-01 08:18] LABS: BILIRUBIN,URINE NEGATIVE (NEGATIVE); CLARITY,URINE CLEAR; COLOR,URINE YELLOW; GLUCOSE, URINE (UA) 4+ (NEGATIVE); KETONES,URINE 1+ (NEGATIVE); LEUKOCYTE ESTERASE ,URINE 2+ (NEGATIVE); NITRITE,URINE NEGATIVE (NEGATIVE); PH,URINE 6 (5-9); PROTEIN,URINE 3+ (NEGATIVE); UROBILINOGEN,URINE NORMAL (NORMAL)
[2018-08-01 08:31] LABS: BACTERIA,URINE NEGATIVE /HPF; YEAST,URINE FEW /HPF
[2018-08-01] MEDS ORDERED: ONDA4TAB8 SL (08:51)
[2018-08-01] MEDS ORDERED: NITR-65 PO (08:51)
[2018-08-01 08:56] VITALS: BP 194/94
--- OUTSIDE RECORDS SUMMARY | 2018-08-01 14:46 | XMS REPORT | Clinical Summary ---
Author Author [facility] Organization [facility] Address Unknown Phone Unavailable Care Team Providers [facility] Specialist Name Role Phone Damien Caceres MD Unavailable Melo Adame MD Unavailable Unavailable Lulu Ozuna NP PCP Hilary Davenport RN Unavailable Unavailable Source Comments Some departments are not documenting in the electronic medical record. If you do not see the information that you expected, contact Release of Information in the Health Information Management department at [phone] for further assistance in locating additional records.[facility] Allergies No Known Allergies Current Medications [...] 18 ued Active Problems Problem Noted Date Diabetic ketoacidosis without coma ([facility]) 07/13/2018 Acute blood loss anemia 07/13/2018 Leukocytosis 07/13/2018 Normocytic anemia 07/13/2018 Overweight (BMI 25.0-29.9) 07/13/2018 Urinary retention 07/13/2018 Anemia of chronic disease 07/03/2018 Agitation 07/03/2018 Stroke ([facility]) 07/01/2018 Overview: R M1 occlusion, successful thrombectomy on 07/01/18 (TICI 3) HTN (hypertension) 01/15/2016 Urinary retention with incomplete bladder emptying 01/15/2016 Diabetes ([facility]) 01/15/2016 Proliferative diabetic retinopathy(362.02) 01/14/2013 Last Assessment [...] Problems Problem Noted Date Resolved Date Sepsis ([facility]) 01/15/2016 01/17/2016 Severe sepsis ([facility]) 01/15/2016 01/17/2016 LATISHA (acute kidney injury) ([facility]) 01/15/2016 01/17/2016 High anion gap metabolic acidosis 01/15/2016 01/17/2016 Encounters Date Type Specialty Care Team Description 07/08/2018 Anesthesia Hannah Arias, DIRECTOR CLINICAL APPLICATIONS Event 07/08/2018 Procedure Pass 07/08/2018 Surgery Huang Carolina MD ESOPHAGOGASTRODUODENOSCOP Y 07/01/2018 [facility] Diego Gutierrez MD Stroke ([facility]) - Encounter Shanna Ward MD 07/09/2018 Veronica [...] 2008 VACCINE (1 of 2) INFLUENZA VACCINE 05/20/2018 COLORECTAL CANCER 07/08/2028 07/08/2018 SCREENING Implants Implanted Type Area [employer] Specialist Device Expiration Model / Identifier Date Serial / Lot Device Closure 70cm 8fr .038in Right: TERUMO:TERUMO 02/16/2019 [id number] / Angio-Seal Vip [employer]-Plus - Sn/A Femoral MED N/A / Implanted: Qty: 1 on 07/01/2018 by Artery [id number] Lulu Perry MD Procedures Procedure Name Priority Date/Time Associated Diagnosis Comments TELEMETRY STRIPS-SCAN 07/17/2018 Results for this 10:07 AM CDT procedure are in the results section. TELEMETRY STRIPS-SCAN 07/17/2018 Results for this 7:10 AM CDT procedure are in the results section. POC GLUCOSE 07/09/2018 Results for this 3:42 [...] in the results section. CULTURE-BLOOD Routine 07/08/2018 Results for this W/SENSITIVITY 10:25 PM CDT procedure are in the results section. POC GLUCOSE 07/08/2018 Results for this 9:52 PM CDT procedure are in the results section. CULTURE-BLOOD Routine 07/08/2018 Results for this W/SENSITIVITY 8:20 PM CDT procedure are in the results section. CONSULT IV THERAPY TEAM Routine 07/08/2018 7:48 PM CDT POC GLUCOSE 07/08/2018 Results for this 5:56 PM CDT procedure are in the results section. SURGICAL PATHOLOGY 07/08/2018 Results for this 4:34 PM CDT procedure are in the results section. UA REFLEX CULTURE LABEL Routine 07/08/2018 Results for this 4:09 PM CDT procedure are in the [...] CDT procedure are in the results section. UA REFLEX CULTURE LABEL Routine 07/05/2018 Results for this 6:45 PM CDT procedure are in the [...] ECG 12-LEAD Routine 07/01/2018 12:56 PM CDT UA REFLEX CULTURE LABEL Routine 07/01/2018 Results for this 12:53 PM CDT procedure are in the results section. URINALYSIS MICROSCOPIC Routine 07/01/2018 Results for this [...] section. from Last 3 Months Results * TELEMETRY STRIPS-SCAN (07/17/2018 10:07 AM) Narrative Performed At Ordered by an unspecified provider. * TELEMETRY STRIPS-SCAN (07/17/2018 7:10 AM) Narrative Performed At Ordered by an unspecified provider. * POC GLUCOSE (07/09/2018 3:42 PM) Only the most recent of 114 results within the time period is included. Glucose, POC 87 70 - 100 MG/DL [facility] Performing Organization Address City/State/Zipcode Phone Number [facility] [address] [place] [address] * CBC AND DIFF (07/09/2018 5:47 AM) [...] Address City/State/Zipcode Phone Number MAIN LAB [address] [place] [address] * COMPREHENSIVE METABOLIC PANEL (07/09/2018 5:47 AM) [...] ALT (SGPT) 21 7 - 56 U/L [facility] Anion Gap 9 3 - 12 MAIN LAB eGFR Non >60 >60 mL/min [facility] Comment: The eGFR is not validated [...] for questions. Specimen Blood Performing Organization Address City/[facility]/Zipcode Phone Number [facility] [address] [place] [address] * CULTURE-BLOOD W/SENSITIVITY (07/08/2018 10:25 PM) Only the most recent of 4 results within the time period is included. Battery Name BLOOD CULTURE [facility] Specimen Description BLOOD [facility] LEFT HAND Special Requests NONE [facility] Culture NO GROWTH [address] [facility] Report Status FINAL [facility] 07/14/2018 Specimen Blood Performing Organization Address City/[facility] Phone Number [facility] [address] [place] [address] * SURGICAL PATHOLOGY (07/08/2018 4:34 PM) PATHOLOGY REPORT [facility] [email or web address] Department of Pathology and Laboratory Medicine [address] [place] [address] Surgical Pathology Office:[phone] :[phone] SURGICAL PATHOLOGY REPORT NAME: VALDEZ ANTHONY SURG PATH #: [id number] MR #: [id number] SPECIMEN CLASS: SR BILLING #: [id number] ALT ID #:LOCATION: DISCHARGED DATE OF PROCEDURE: 07/08/2018 AGE:57 SEX: M DATE RECEIVED: 07/08/2018 : 1960TIME RECEIVED:16:34 PHYSICIAN: HUANG CAROLINA DATE OF REPORT: 07/11/2018 COPY TO:DATE OF PRINTIN07/11/2018 ############################## ############################## ############ Final Diagnosis: A. Small intestinal mucosa, "duodenal bx r/o Celiac": Normal villous architecture with no diagnostic abnormalities. B. Colonic mucosa, "transverse colon polyp", biopsy: Tubular adenoma. C. Colonic mucosa, "descending colon polyps", biopsy: Tubular adenoma/s. Attestation: By this signature, I attest that I have personally formulated the final interpretation expressed in this report and that the above diagnosis is based upon my examination of the slides and/or other material indicated in this report. +++ +++ Melo Galaviz D.O. pm/07/08/2018 ############################## ############################## ############ Material Received: A: duodenal bx r/o Celiac B: transverse colon polyp C: descending colon polyps History: 57-year-old male with history of acute blood loss anemia. Gross Description: A. Received in formalin labeled "duodenal biopsy rule out celiac" is a 0.8 x 0.6 x 0.3 cm aggregate of rodriges-brown soft tissue fragments. The specimen is entirely submitted in cassette A1. (ab) B. Received in formalin labeled "transverse colon polyp" is a 2.9 x 1.1 x 0.3 cm aggregate of rodriges-brown soft tissue fragments and possible fecal material. The specimen is entirely submitted in cassette B1. (ab) C. Received in formalin labeled "descending colon polyps" is a 2.9 x 1.3 x 0.4 cm aggregate of rodriges-brown soft tissue fragments and possible fecal material. The specimen is entirely submitted in cassette C1. (ab) ab/07/08/2018 Performing Organization Address City/State/[facility] Cent[facility] Phone Number [facility] RESULTS * REFLEX CULTURE LABEL (07/08/2018 4:09 PM) Only the most recent of 3 results within the time period is included. Reflex Culture LAB LABEL [facility] Specimen Urine Performing Organization Address City/State/[place] Phone Number [facility] [address] [place] [address] * URINALYSIS MICROSCOPIC REFLEX TO CULTURE (07/08/2018 [...] will follow. Specimen Urine Performing Organization Address [facility] Phone Number [facility] [address] [place] [address] * URINALYSIS DIPSTICK REFLEX TO CULTURE (07/08/2018 4:09 PM) Only the most recent of 3 results within the time period is included. Color,UA STRAW [facility] Turbidity,UA CLEAR CLEAR-CLEAR [facility] Specific [place]-Urine 1.005 1.003 - 1.035 [facility] [...] MAIN LAB Specimen Urine Performing Organization Address [facility] Phone Number [facility] [address] [place] [address] * CHEST SINGLE VIEW (07/08/2018 2:15 PM) Impressions Performed At Poor depth of inspiration with mild bibasilar atelectasis. RAD RESULTS Approved by Larry Alatorre MD [...] RESULTS Procedure Date: 07/08/2018 10:48 AM CSN: [id number] Date of : 1960 Gender: Male Attending Physician: Huang Carolina MD Procedure: Upper GI endoscopy Indications: Anemia (Mixed picture of anemia of chronic disease + Iron deficiency anemia), new onset of Afib and not on AC. Providers: Huang Carolina MD (Doctor), Roberto Dutta MD (Fellow), Alvaro Banegas (Nurse), Minna Jiménez RN (Nurse), Abisai Burden, Seam Checker (Seam Checker) Referring Physician: Referral Self Medications: Monitored Anesthesia [...] 55 seconds Procedure Code(s): --- Professional --- 95140, Esophagogastroduodenoscopy, flexible, transoral; with biopsy, single or multiple Diagnosis Code(s): --- Professional --- K44.9, Diaphragmatic hernia without obstruction or gangrene K31.89, Other diseases of stomach and duodenum D50.0, Iron deficiency anemia secondary to blood loss (chronic) CPT copyright 2016 [employer]. All rights reserved. The codes documented in this report are preliminary and upon clinic clerk review may be revised to meet current compliance requirements. Attending Participation: I was present and participated during the entire procedure, including non-jacobs portions. MD Huang De Oliveira MD 07/08/2018 1:28:58 PM The attending physician has electronically signed and finalized this document. Roberto Dutta MD Number of Addenda: 0 Note Initiated On: 07/08/2018 10:48 AM Performing Organization Address City/State/Zipcode Phone Number [facility] OTHER RESULTS * COLONOSCOPY (07/08/2018 10:47 AM) Provation Report Patient Name: Raj DIMAS OTHER RESULTS Procedure Date: 07/08/2018 10:47 AM CSN: [id number] Date of : 1960 Gender: Male Attending Physician: Huang Carolina MD Procedure: Colonoscop y Indications: Anemia (Mixed picture of anemia of chronic disease + Iron deficiency anemia), new onset of Afib and not on AC. Providers: Huang Carolina MD (Doctor), Roberto Dutta MD (Fellow), Alvaro Banegas (Nurse), Minna Jiménez RN (Nurse), Abisai Burden, Seam Checker (Seam Checker) Referring Physician: Gerard Salazar MD Medications: Monitored [...] 15 seconds Procedure Code(s): --- Professional --- 70784, Colonoscopy, flexible; diagnostic, including collection of specimen(s) by brushing or washing, when performed (separate procedure) Diagnosis Code(s): --- Professional --- D50.0, Iron deficiency anemia secondary to blood loss (chronic) CPT copyright 2016 [employer]. All rights reserved. The codes documented in this report are preliminary and upon clinic clerk review may be revised to meet current compliance requirements. Attending Participation: I was present and participated during the entire procedure, including non-jacobs portions. MD Huang De Oliveira MD 07/08/2018 1:28:26 PM The attending physician has electronically signed and finalized this document. Roberto Dutta MD Number of Addenda: 0 Note Initiated On: 07/08/2018 10:47 AM Performing Organization Address City/[facility] Cent[facility]ode Phone Number JUDIE OTHER RESULTS * PROCALCITONIN (07/08/2018 5:53 AM) Procalcitonin 0.13 (H) <0.10 NG/ML MAIN LAB Performing Organization Address [facility] Phone Number MAIN LAB [address] [place] [address] * HEMOGLOBIN (07/07/2018 5:45 AM) Only the most recent of 10 results within the time period is included. Hemoglobin 9.5 (L) 13.5 - 16.5 GM/DL MAIN LAB Comment: Corrected on 07/09 AT 1021: previously reported as DUPLICATE ORDER, Corrected on 07/07 AT 0811: previously reported as 9.5 Specimen Blood Performing Organization Address [facility] Phone Number MAIN LAB [address] [place] [address] * OCCULT BLOOD NON COLON CANCER SCREEN (07/06/2018 10:45 PM) Battery Name OCCULT BLOOD SCREEN MAIN LAB Specimen Description FECES MAIN LAB Special Requests NONE MAIN LAB Occult Blood NEGATIVE [facility] Report Status FINAL MAIN LAB 07/06/2018 Specimen Stool - Feces Performing Organization Address [facility] Phone Number MAIN LAB [address] [place] [address] * CBC (07/06/2018 4:27 AM) Only the [...] MAIN LAB Specimen Blood Performing Organization Address City/[facility]/Zipcode Phone Number [facility] [address] [place] [address] * BASIC METABOLIC PANEL (07/06/2018 4:27 AM) Only the most recent of 5 results within the time period is included. Sodium 138 137 - 147 MMOL/L MAIN LAB Potassium 3.8 3.5 - 5.1 MMOL/L MAIN LAB Chloride 103 98 - 110 MMOL/L [facility] CO2 26 21 - 30 MMOL/L [facility] Anion Gap 9 3 - 12 MAIN LAB Glucose 146 (H) 70 - 100 MG/DL MAIN LAB Blood Urea Nitrogen 9 7 - 25 MG/DL MAIN LAB Creatinine 1.18 0.4 - 1.24 MG/DL MAIN LAB Calcium 8.5 8.5 - 10.6 MG/DL MAIN LAB eGFR Non >60 >60 mL/min MAIN LAB Comment: The [...] Blood Performing Organization Address City/State/Zipcode Phone Number [facility] [address] [place] [address] * CULTURE-URINE W/SENSITIVITY (07/05/2018 6:45 PM) Battery Name URINE CULTURE MAIN LAB Specimen Description URINE MAIN LAB Special Requests NONE MAIN LAB Culture NO GROWTH [facility] Report Status FINAL [facility] 07/06/2018 Specimen Urine Performing Organization Address City/State/Zipcode Phone Number MAIN LAB [address] [place] [address] * ABDOMEN AP ONLY (07/05/2018 9:20 AM) [...] on 07/05/2018 10:21 AM. Performing Organization Address City/State/Zipcode Phone Number [facility] RAD RESULTS * IRON + BINDING CAPACITY + %SAT+ FERRITIN (07/04/2018 2:20 PM) Iron 49 (L) 50 - 185 MCG/DL [facility] Iron Binding-TIBC 212 (L) 270 - 380 MCG/DL [facility] % Saturation 23 (L) 28 - 42 % [facility] Ferritin 383 (H) 30 - 300 NG/ML MAIN LAB Specimen Blood Performing Organization Address City/[facility] Phone Number MAIN LAB [address] [place] [address] * BLOOD TYPE CONFIRMATION - ORDER ONLY IF REQUESTED BY LAB (07/04/2018 12:13 AM) ABO/RH(D) O NEG MAIN LAB Specimen Blood Performing Organization Address [facility] Cent[facility] Phone Number MAIN LAB [address] [place] [address] * TYPE & CROSSMATCH (07/03/2018 11:48 PM) Units Ordered 1 MAIN LAB Crossmatch Expires 07/06/2018 MAIN LAB Record Check 2ND TYPE REQUIRED MAIN LAB ABO/RH(D) O NEG MAIN LAB Antibody Screen NEG MAIN LAB Electronic Crossmatch YES [facility] Unit Number [id number] MAIN LAB Blood Component Type RBC,CPDA,LEUKO REDUCED MAIN LAB Unit Division 0 [facility] Status OF Unit TRANSFUSED MAIN LAB Transfusion Status OK TO TRANSFUSE MAIN LAB Crossmatch Result COMPATIBLE,ELECTRONIC MAIN LAB Specimen Blood Performing Organization Address [facility] Phone Number MAIN LAB [address] [place] [address] * SWALLOW MOTION SERIES (07/03/2018 8:59 AM) [...] on 07/03/2018 9:08 AM. Performing Organization Address City/[facility] Phone Number RAD RESULTS * ECG-SCAN (07/03/2018 7:35 AM) Narrative Performed At Ordered by an unspecified provider. * PHOSPHORUS (07/02/2018 4:15 AM) Only the most recent of 2 results within the time period is included. Phosphorus 2.6 2.0 - 4.0 MG/DL MAIN LAB Specimen Blood Performing Organization Address City/State/Zipcode Phone Number MAIN LAB [address] [place] [address] * MAGNESIUM (07/02/2018 4:15 AM) Only the most recent of 2 results within the time period is included. Magnesium 1.9 1.6 - 2.6 mg/dL [facility] Specimen Blood Performing Organization Address City/[facility] Cent[facility] Phone Number JUDIE MAIN LAB [address] [place] [address] * IONIZED CALCIUM (07/02/2018 4:15 AM) Only the most recent of 2 results within the time period is included. Ionized Calcium 1.14 1.0 - 1.3 MMOL/L [facility] Specimen Blood Performing Organization Address [facility] Cent[facility] Phone Number MAIN LAB [address] [place] [address] * MRI HEAD WO CONTRAST (07/01/2018 9:10 [...] the posterior medial left temporal lobe. 3. Yazdanism of flow void within the right M1 [...] changes. Major vascular flow voids of the [place] and dural venous sinuses are preserved. There is methodist of flow void in the right M1 [...] changes. Major vascular flow voids of the [place] and dural venous sinuses are preserved. There is methodist of flow void in the right M1 [...] the posterior medial left temporal lobe. 3. Yazdanism of flow void within the right M1 segment, previously noted to be occluded. Performing Organization Address City/State/Zipcode Phone Number [facility] RAD RESULTS * BLOOD GASES, ARTERIAL (07/01/2018 3:06 PM) pH-Arterial 7.34 (L) 7.35 - 7.45 [facility] pCO2-Arterial 39 35 - 45 MMHG [facility] pO2-Arterial 102 (H) 80 - 100 MMHG [facility] Base Deficit-Arterial 4.6 MMOL/L [facility] O2 Sat-Arterial 97.5 95 - 99 % [facility] Yynvdnzhtpn-RKC-Byh 20.6 (L) 21 - 28 MMOL/L [facility] Specimen Blood, arterial - Blood Performing Organization Address City/State/Zipcode Phone Number MAIN LAB [address] [place] [address] * CT HEAD WO CONTRAST (07/01/2018 2:46 [...] 72.37 % OTHER OUTSIDE LAB AV index (omaha) 0.56 OTHER OUTSIDE LAB E/A ratio 1.35 OTHER OUTSIDE LAB E/E' ratio 10.67 OTHER OUTSIDE LAB CV ECHO PV LETTER OF CREDIT CLERK MAXINE Cooley OTHER OUTSIDE LAB LV mass 118.49 96 - 200 g OTHER OUTSIDE LAB RWT 0.36 <=0.42 OTHER OUTSIDE LAB TV rest pulmonary artery 22 mmHg OTHER OUTSIDE LAB pressure Right Heart Systolic TDI 0.110 m/s OTHER OUTSIDE LAB S' Cardiology Ultrasound Siemens [id number] OTHER OUTSIDE LAB Machine ECHO EF 60 [...] study available for comparison Performing Organization Address [facility] CenterSunCo[facility] Renewable Energyva Phone Number OTHER OUTSIDE LAB * BETA HYDROXYBUTYRATE (KETONES) (07/01/2018 12:50 PM) Beta Hydroxybutyrate 0.1 <0.3 MMOL/L [facility] Comment: Beta hydroxybutyrate (BOHB) is the most abundant ketone (78%), followed by acetoacetate (20%) and acetone (2%).Measurement BOHB is recommended to assess ketones in DKA. Expected BOHB Results for DKA: Initial presentation high/increasing During treatment decreasing Resolved decreasing/normal Performing Organization Address [facility] Phone Number MAIN LAB [address] [place] [address] * LACTIC ACID (BG - RAPID LACTATE) (07/01/2018 12:50 PM) Lactic Acid,BG 1.5 0.5 - 2.0 MMOL/L [facility] Specimen Blood Performing Organization Address [facility] Center[facility] Energy[facility] Phone Number [facility] [address] [place] [address] * LACTIC ACID(LACTATE) (07/01/2018 12:50 PM) Lactic Acid 1.5 0.5 - 2.0 MMOL/L [facility] Performing Organization Address [facility] Center[facility] [employer] Phone Number [facility] [address] [place] [address] * HEMOGLOBIN A1C (07/01/2018 12:50 PM) Hemoglobin A1C 17.4 (H) 4.0 - 6.0 % [facility] Comment: The ADA recommends that most patients with type 1 and type 2 diabetes maintain an A1c level <7%. Specimen Blood Performing Organization Address [facility]/Zipcode Phone Number MAIN LAB [address] [place] [phone] * LIPID PROFILE (07/01/2018 12:50 PM) Cholesterol [...] 130 mg/dL. Specimen Blood Performing Organization Address [facility] Phone Number [facility] [address] [place] [phone] * IR ARTERIOGRAM NEURO (07/01/2018 12:29 PM) [...] Fentanyl 25 mcg Contrast - 100 cc [id number] Total mGy - 421 Anesthesia:conscious sedation Consent [...] the sheath was advanced over a 5 Sinhala 125 cm Vert catheter over a 180 cm 0.035 Eugene wire over the aortic arch and into [...] therefore, hemostasis was achieved using an 8 Sinhala Angioseal closure device followed by manual pressure [...] Fentanyl 25 mcg Contrast - 100 cc [id number] Total mGy - 421 Anesthesia: conscious sedation [...] the sheath was advanced over a 5 Sinhala 125 cm Vert catheter over a 180 cm 0.035 Eugene wire over the aortic arch and into [...] therefore, hemostasis was achieved using an 8 Sinhala Angioseal closure device followed by manual pressure [...] teamat 11:51 AM on 07/01/2018 by the residential youth counselor in consultation with TALIA BOSTON M.D.. Approved [...] at 11:51 AM on 07/01 by the residential youth counselor in consultation with TALIA BOSTON M.D.. Approved [...] teamat 11:51 AM on 07/01/2018 by the residential youth counselor in consultation with TALIA BOSTON M.D.. Approved [...] at 11:51 AM on 07/01 by the residential youth counselor in consultation with TALIA BOSTON M.D.. Approved [...] teamat 11:51 AM on 07/01/2018 by the residential youth counselor in consultation with TALIA BOSTON M.D.. Approved [...] at 11:51 AM on 07/01 by the residential youth counselor in consultation with TALIA BOSTON M.D.. Approved [...]
--- OUTSIDE RECORDS SUMMARY | 2018-08-01 14:50 | XMS REPORT | Encounter Summary ---
Author Author [facility] Organization [facility] Address Unknown Phone Unavailable Care Team Providers Care Coal Pulverizing Operator Name Role Phone Damien Caceres MD Unavailable Melo Adame MD Unavailable Unavailable Lulu Ozuna NP PCP Hilary Davenport RN Unavailable Unavailable Reason for Referral * Consult, Test & Treat (Routine) Status Reason Specialty Diagnoses / Referred By Referred To Procedures Contact Contact No Auth Needed Specialty Gastroenterology Diagnoses Keyshawn Gomez [facility] Gastrointestinal J, Ortho and Medical Required hemorrhage with [address] [place], [place] [phone] Phone: Fax: Reason for Visit * Auth/Cert Status Reason Specialty Diagnoses / Referred By Referred To Procedures Contact Contact Diagnoses Stroke (HCC) Stroke Encounter Details Date Type Department Care Team Description 07/01/[address] Diego Gutierrez MD Stroke (HCC) - Encounter [address] 07/09/2018 [place] [address] [place] [address] [phone] Shanna Rocha MD [address] [place] [address] [phone] Veronica Buchanan MD [address] [place] [address] Keyshawn Hinton MD [address] [place], [place] [id number] Social History Tobacco Use Types Packs/Day Years [...] No 07/03/2018 as of this encounter Discharge Summaries * James Shook DO - 07/09/2018 3:56 PM CDT Formatting of this note may be different from the original. 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 Admission HPI: Valdez Anthony is a 57 y.o. male with new onset Atrial Fibrillation with RVR, HTN , HLD, T2DM, Diabetic Retinopathy, OD Blindness, Neovascular Glaucoma, Prostate Cancer s/p prostatectomy, Urinary Retention s/p suprapubic catheter that was admitted at [facility] for urosepsis, DKA, A fib with RVR requiring cardizem ggt that was transferred for concerns for stroke. Admitted on 06/28 to [facility] with week history of cough, SOB. Found to have UTI with urosepsis and DKA with CO2 of 8, BG in 600s. Admitted to the ICU at [facility]. Started on CTX and Insulin [...] became acutely agitated, given 2mg of Ativan. Admission Physical Exam notable for: Vital Signs: Last Filed Vital Signs: 24 [...] language) 2=neither correct 2 1c. 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, insurance sales assistant and release non-paretic hand (other 1 step [...] more than one modality 2 Score 32 [place] coma score: E: 2 - Opens eyes [...] texture, turgor normal. No rashes or lesions Admission Lab/Radiology studies notable for: 24-hour labs: Results for orders placed or [...] POC 169 (H) 70 - 100 MG/DL Brief Hospital Course: OSH course: Pt presented to OSH for [...] tPA given unclear window. Was transferred to [facility] for evaluation. Was given ativan 2mg enroute [...] well. Transitioned to floor status following stabilization. Pt was transitioned to neurology wards service following stability. Continued ASA; pt will need AC but will start AC 2 weeks following stroke on 07/15. ECHO showed no thrombus. RN REFERRAL was following and pt graduated to regular w/ nectar thick fluids. PT/OT following while admitted who recommened IPR. Rehab consulted , who stated that pt may be able to go to IPR; however, pt was also stable for SNF placement as well. Goal BP <130/80; pt on lisinopril 40, norvasc 10. Leukocytosis was fluctuant but was generally downtrending during admission. VSS throughout w/o fevers. Infectious work up was repeated w/ urosepsis, but was treated succesfully w/ rocephin. Will need repeat labs w/ PCP to monitor continued downtrend. Pt did become agitated during admission, but this improved w/ seroquel. Pt had BM w/ bowel regimen. Pt was placed on lopressor 12.5 BID. As pt was on norvasc for BP, cardizem was d/c'd. Will need outpt cardiology follow up for further management. Pt did have hypoglycemic episodes during admission. Endocrine was following after pt was off inuslin gtt who helped management insulin regimen. Pt will need outpt PCP follow up for continue insulin therapy. Pt had urinary suprapubic johnson in place for urinary retention; pt will need outpt urology follow up for management of suprapubic johnson. Hgb remained stable during admission; however, w/ concern for GI bleed OSH, GI was consulted for repeat EGD/colonscopy to r/o major bleed. Polyps were removed and sent for patholoygy, but no bleed noted. Pt will need follow up w/ GI outpt for pathology results. Discharge NIH Stroke Scale 1a Level of consciousness: 1=not alert but arousable by minor stimulation to obey, answer or respond 1b. LOC questions: 0=Performs both tasks correctly 1c. LOC commands: 0=Performs both tasks correctly 2. Best Gaze: 0=normal 3. Visual: 0=No visual loss 4. Facial Palsy: 0=Normal symmetric movement 5a. Motor left arm: 0=No drift, limb holds 90 (or 45) degrees for full 10 seconds 5b. Motor right arm: 0=No drift, limb holds 90 (or 45) degrees for full 10 seconds 6a. motor left le=No drift, limb holds 90 (or 45) degrees for full 10 seconds 6b Motor right le=No drift, limb holds 90 (or 45) degrees for full 10 seconds 7. Limb Ataxia: 1=Present in one limb 8. Sensory: 0=Normal; no sensory loss 9. Best Language: 1=Mild to moderate aphasia; some obvious loss of fluency or facility of comprehension without significant limitation on ideas expressed or form of expression. 10. Dysarthria: 0=Normal 11. Extinction and Inattention: 0=No abnormality 12. Distal motor function: 0=Normal Total: 3 mRS on discharge 3 Condition at Discharge: Stable Discharge Diagnoses: Hospital Problems Active Problems * (Principal)Stroke (HCC) Proliferative diabetic retinopathy(362.02) Neovascular glaucoma HTN (hypertension) Urinary retention with incomplete bladder emptying Diabetes (HCC) Anemia of chronic disease Agitation Diabetic ketoacidosis without coma (HCC) Acute blood loss anemia Leukocytosis Normocytic anemia Overweight (BMI 25.0-29.9) Urinary retention Resolved Problems RESOLVED: Sepsis (HCC) RESOLVED: Severe sepsis (HCC) Surgical/Diagnostic Procedures: As noted in brief hospital course Consults: Cardiology, Endocrinology, GI and PT/OT/RN REFERRAL, rehab, urology Patient Disposition: Halfway Facility Patient instructions/medications: AMB REFERRAL TO GASTROENTEROLOGY Referral Priority: Routine Referral Type: Consult, Test & Treat Referral Reason: Specialty Services Required Number of Visits Requested: 1 Expiration Date: 07/09/19 Activity as Tolerated It is important to keep increasing your activity level after you leave the hospital. Moving around can help prevent blood clots, lung infection (pneumonia ) and other problems. Gradually increasing the number of times you are up moving around will help you return to your normal activity level more quickly. Continue to increase the number of times you are up to the chair and walking daily to return to your normal activity level. Begin to work towards your normal activity level after follow-up appointment. Stroke Information F.A.S.T. is an easy way to remember the sudden signs of a stroke. F - face drooping A - arm weakness S - speech difficulty T - TIME TO CALL 911 If the person shows any of theses signs, even if the signs go away, call IMMEDIATELY. Check the time so you will know when the first sign started. Traits and lifestyle habits that increase your risk for stroke include prior stroke/TIA, age, gender, heredity/race, prior heart attack, high blood pressure , cigarette smoking, diabetes mellitus, carotid or other artery disease, atrial fibrillation, heart disease, high cholesterol, poor diet, physical inactivity, obesity, excessive alcohol use and sickle cell disease. Continue your medications as ordered after discharge. These medications will help reduce your risk of another stroke. Your most recent cholesterol levels, if taken during your stay, will display below. LDL is called "bad" cholesterol because it can stick to your artery ivory and block blood flow. Your LDL should be below 100. HDL is called the "good" cholesterol. Your HDL should be greater than 40. Your lab results on 07/01/2018: HDL 42 MG/DL (Ref range: >40 MG/DL); LDL 44 MG/ DL (Ref range: <100 MG/DL). It is important that you follow-up with your primary care physician 4 to 6 weeks after discharge. Be sure to keep all follow-up appointments. Please bring your discharge instructions with you to your follow-up appointments. Should you have any questions once you have returned home, please feel free to contact the Drag Car Racer at [phone]. Your last blood pressure was BP: 171/73, Your target blood pressure is <130/80 If you have diabetes, even if treated, you are at an increased risk of stroke. Many people with diabetes also have high blood pressure, high cholesterol or are overweight. This increases your risk even more. Smoking doubles your risk of stroke. Quitting can greatly reduce your risk. For more information on smoking cessation call or visit www.smokefree.gov. Report These Signs and Symptoms STROKE Call [phone] for the following symptoms: *Sudden numbness or weakness of the face, arm or leg, especially on one side of the body. *Sudden confusion, trouble speaking or understanding. *Sudden trouble seeing in one or both eyes. *Sudden trouble walking, dizziness, loss of balance or coordination. *Sudden, severe headache with no known cause. Return Appointment For Neurology scheduling contact [phone] For Neurosurgery appointments call [phone] Questions About Your Stay STANDARD For questions or concerns regarding your hospital stay: -DURING BUSINESS HOURS (8:00 AM - 4:30 PM): Call [phone] and ask to be transferred to your discharge attending physician. -AFTER BUSINESS HOURS (4:30 PM - 8:00 AM, on weekends, or holidays): Call [phone] and ask the nuclear operator to page the on-call doctor for the discharge attending physician. Discharging attending physician: KEYSHAWN GOMEZ [[id number]] Complete if patient is going to a Halfway Facility I certify that the patient requires skilled care Yes The patient's stay is expected to be less than 30 days Yes I will be in charge of patient in long term No Cardiac Diet Limiting unhealthy fats and cholesterol is the most important step you can take in reducing your risk for cardiovascular disease. Unhealthy fats include saturated and trans fats. Monitor your sodium and cholesterol intake. Restrict your sodium to 2g (grams) or 2000mg (milligrams) daily, and your cholesterol to 200mg daily. If you have questions regarding your diet at home, you may contact a dietitian at . Diabetic Diet You should eat between 1600 and 2000 calories per day. This is equal to 60g ( grams) of carbohydrates per meal, and 30g of carbohydrates for a bedtime snack. If you have questions about your diet after you go home, you can call a dietitian at [phone]. Modified Liquids Your fluids should be thickened to a consistency of nectar. This is as thick as a milkshake or tomato juice. If you have questions about your diet after you go home, you can call a dietitian at [phone]. Current Discharge Medication List START taking these medications Details aspirin 81 mg chewable tablet Chew one tablet by mouth daily. Take with food. PRESCRIPTION TYPE: No Print atorvastatin (LIPITOR) 40 mg tablet Take one tablet by mouth at bedtime daily. PRESCRIPTION TYPE: No Print insulin aspart U-100 (NOVOLOG FLEXPEN) 100 unit/mL injection PEN Inject four Units under the skin three times daily with meals. Qty: 45 mL, Refills: 3 PRESCRIPTION TYPE: Print insulin glargine (LANTUS SOLOSTAR, BASAGLAR) 100 unit/mL (3 mL) injection PEN Inject twenty Units under the skin daily. Qty: 45 mL, Refills: 3 PRESCRIPTION TYPE: Print melatonin 5 mg tab Take one tablet by mouth at bedtime daily. PRESCRIPTION TYPE: No Print metoprolol tartrate (LOPRESSOR) 25 mg tablet Take one tablet by mouth twice daily. Qty: 180 tablet, Refills: 3 PRESCRIPTION TYPE: Print nortriptyline (PAMELOR) 10 mg capsule Take one capsule by mouth at bedtime daily. PRESCRIPTION TYPE: No Print QUEtiapine (SEROQUEL) 25 mg tablet Take one tablet by mouth twice daily. PRESCRIPTION TYPE: No Print CONTINUE these medications which have been CHANGED or REFILLED Details amLODIPine (NORVASC) 5 mg tablet Take two tablets by mouth daily. PRESCRIPTION TYPE: No Print lisinopril (PRINIVIL, ZESTRIL) 40 mg tablet Take one tablet by mouth daily. PRESCRIPTION TYPE: No Print The following medications were removed from your list. This list includes medications discontinued this stay and those removed from your prior med list in our system buPROPion (WELLBUTRIN) 75 mg tablet ERGOCALCIFEROL (VITAMIN D2) (VITAMIN D PO) ferrous sulfate 325 mg (65 mg iron) tablet FLUoxetine(+) (PROZAC) 40 mg capsule gabapentin (NEURONTIN) 600 mg tablet glipiZIDE (GLUCOTROL) 10 mg tablet HYDROcodone/acetaminophen (NORCO; VICODIN) 5-325 mg tablet INSULIN ASPART (NOVOLOG SC) insulin detemir(+) (LEVEMIR) 100 unit/mL soln metoprolol XL (TOPROL XL) 25 mg tablet traZODone (DESYREL) 50 mg tablet Scheduled appointments: Aug 18, 2018 10:40 AM CDT Return Patient with Lulu Perry MD [facility] ([facility]) [facility] [address] [place] [phone] Additional appointment instructions: Please follow up with your PCP for repeat labs, monitoring your blood pressure, and monitoring your blood glucose Please follow up with the starter mechanic at [facility] for follow up visit. Please follow up with neurology clinic for follow up of your stroke. Pending items needing follow up: f/u w/ endocrinology, f/u w/ urology, f/u w/ cardiology, f/u w/ GI, f/u w/ neurology, f/u w/ PCP in 1-2 weeks Signed: James Shook DO 07/13/2018 cc: Primary Care Physician: Lulu Ozuna Referring physicians: Self, Referral Additional provider(s): Associated attestation - Keyshawn Gomez MD - 07/16/2018 5:27 PM CDT Attending Addendum: Agree with discharge plan as documented. Etiology of stroke cardioembolic, start anticoagulation in 2 weeks from stroke. D/c to facility. Keyshawn Gomez MD in this encounter Discharge Instructions * Discharge Instr - Appointments - James Shook DO - 07/09/2018 12:11 PM CDT Please follow up with your PCP for repeat labs, monitoring your blood pressure, and monitoring your blood glucose Please follow up with the starter mechanic at [facility] for follow up visit. Please follow up [...] - 07/09/2018 2:57 PM CDT Phoned [facility] [phone] and gave report to Perla GOODMAN to receive patient. Informed her that patient to transport at 13:00. By 15:00 no transport arrived, phoned facility above and it was reported that ride was on the way. FSBS=69 checked prior to transport. Reported to conference center coordinator for Neurology, juice x 2 given FSBS rechecked=87. Patient left unit via wheelchair and wrecking car driver who was given chart for transport. [...] 1303) Temp: 36.7 C (98.1 F) (07/09 130) Pulse: 70 (07/09 1303) Respirations: 18 PER MINUTE (07/09 1303) SpO2: 97 % (07/09 1303) O2 Delivery: None (Room Air) (07/09 09) SpO2 Pulse: 70 (07/09 1303) BP: (112-171)/(51-73) [...] Range Color,UA STRAW Turbidity,UA CLEAR CLEAR-CLEAR Specific [place]-Urine 1.005 1.003 - 1.035 pH,UA 8.0 5.0 [...] 0547) POC Glucose (Download): (!) 136 (07/09/18 1341) Radiology and other Diagnostics Review: Pertinent radiology [...] DKA resolved -A1c 17.4 on 07/01/2018 uncontrolled -VULCANIZER RUBBER PLATE regimen: levemir 40 units QHS, Novolog 20-25 [...] will follow up with local endocrinology in [facility] Subjective Valdez Anthony is a 57 y.o. [...] Range Color,UA STRAW Turbidity,UA CLEAR CLEAR-CLEAR Specific [place]-Urine 1.005 1.003 - 1.035 pH,UA 8.0 5.0 [...] Diagnostics Review: none Barbi Deluna MD P [phone] * Tata Daniels, RD - 07/09/2018 12:54 PM CDT CLINICAL NUTRITION Clinical Nutrition Follow-Up Summary NAME:Valdez Anthony :1960 AGE: 57 y.o. ADMISSION DATE: 07/01/2018 DAYS ADMITTED: LOS: 8 days Nutrition Assessment of Patient: Malnutrition Assessment: Does not meet criteria Current Oral Intake: Improving, Marginally Adequate Estimated Calorie Needs: 7367-7133 (25-28 kcal/kg desired wt) Estimated Protein Needs: 85-100 (1.2-1.4 g/kg desired wt) Oral Diet Order: Diabetic 9028-2261 Kcal/day (60 g Carb/meal, 30 g Carb/HS snack ), [place] Thick Liquids Comments: 57 y.o. male with new onset Atrial Fibrillation with RVR, HTN, HLD, T2DM, Diabetic Retinopathy, OD Blindness, Neovascular Glaucoma, Prostate Cancer s/p prostatectomy, Urinary Retention s/p suprapubic catheter that was admitted at [facility] for urosepsis, DKA, A fib [...] and underwent via video- swallow eval with RN REFERRAL findings of moderate oropharyngeal dysphagia and baseline cognitive deficits. RN REFERRAL working with pt and diet has advanced from nectar thick full liquids to 60g/meal consistent carb diet with nectar thick fluids. Per had 100% omelet for breakfast today (refused per RN) and sandwich ordered by for lunch. No current wt to assess; unable to actually see pt today as he was bundled in his blankets. Pt has orders for no sugar added [place] breakfast with nectar thick milk at breakfast and per RN throughout day as needed. Followed up with call center who says orders not printing to meal ticket. denies need for diet education Recommendation: Encourage good meal intakes at least 3 times per day with adequate protein source each meal on 60g/meal consistne carb diet. Offer no sugar added [place] Breakfast shakes made with nectar thick milk at breakfast and PRN. Intervention / Plan: Monitor po intake tolerance and adequacy monitor wt trends, labs, meds and GI status Nutrition Diagnosis: Altered GI function Etiology: swallowing and cognitive deficits Signs & Symptoms: RN REFERRAL findings and nectar thick liquids with diabetic diet Goals: Patient to consume >75% of meals/supplements Time Frame: Within 72 Hours Status: Met Patient to consume >85% of meals/supplements Time Frame: Throughout Stay Tata Daniels, MS,RD, LD, [facility] *[id number] * James Shook, DO - [...] prostate cancer s/p prostatectomy who presents to [facility] as a transfer from [facility] for stroke. OSH course: Pt [...] tPA given unclear window. Was transferred to [facility] for evaluation. Was given ativan 2mg enroute [...] EF, LA size 3.5cm, no thrombus - RN REFERRAL following -> recommend regular diet w/ nectar [...] TIDAC >pt to f/u w/ endo @ [facility] outpt basis -> goal BS 100-140 fasting [...] -> develop stroke and was transferred to [facility] - Was placed on PO cardizem >Will [...] 07/01 - 07/05 Dispo: discharge today to [facility] @ 1300 Patient was seen and discussed with Dr. Gomez. James Shook, PGY-2 Subjective: Valdez Anthony is [...] Range Color,UA STRAW Turbidity,UA CLEAR CLEAR-CLEAR Specific [place]-Urine 1.005 1.003 - 1.035 pH,UA 8.0 5.0 [...] (Last 24 hours): FSBS (Manual): 96 (07/08/18 2151) Glucose: (!) 118 (07/09/18 0547) POC Glucose (Download): (!) 158 (07/09/18 1140) Radiology and Other Diagnostics Review: Pertinent radiology reviewed. James Shook, DO Pager Associated attestation - Keyshawn Gomez MD - 07/09/2018 2:15 PM CDT Attending [...] - d/c to inpatient facility today Keyshawn Gomez MD * Melo Leonardo RN - 07/09/2018 10:20 AM CDT During bedside [...] reassessment during pain medication administration. * Chica Kim RN - 07/08/2018 8:22 PM CDT Two sets [...] prostate cancer s/p prostatectomy who presents to [facility] as a transfer from [facility] for stroke. OSH course: Pt [...] tPA given unclear window. Was transferred to [facility] for evaluation. Was given ativan 2mg enroute [...] EF, LA size 3.5cm, no thrombus - RN REFERRAL following -> recommend regular diet w/ nectar [...] TIDAC >pt to f/u w/ endo @ [facility] outpt basis -> goal BS 100-140 fasting [...] -> develop stroke and was transferred to [facility] - Was placed on PO cardizem > [...] fluids, replace lytes PRN, ada diet Ppx: [id number] Heparin Sq Q8, SCDs Code: Full Dispo: continue admission to neuro for stroke/concern for GI bleed -> to SNF on discharge Patient was seen and discussed with Dr. Gomez. James Shook, PGY-2 Subjective: Valdez Anthony is [...] (07/08/18 0553) POC Glucose (Download): 75 (07/08/18 3526) Radiology and Other Diagnostics Review: Pertinent radiology reviewed. James Shook DO Pager Associated attestation - Keyshawn Gomez MD - 07/08/2018 4:08 PM CDT Attending [...] d/c to inpatient facility likely tomorrow Keyshawn Gomez MD * Roberto Dutta MD - 07/08/2018 [...] pathology results. Roberto Dutta GI fellow Pager [phone] 07/08/2018 3:39 PM * Eloy Higgins RN [...] or concerns after your procedure please call [phone] M-F 8am-5:00 pm. After 5:00 pm, holidays or weekends call [phone] and ask for the GI Doctor conference center coordinator. * Barbi Deluna MD - 07/08/2018 12:10 [...] DKA resolved -A1c 17.4 on 07/01/2018 uncontrolled -VULCANIZER RUBBER PLATE regimen: levemir 40 units QHS, Novolog 20-25 [...] will follow up with local endocrinology in [facility] Subjective Valdez Anthony is a 57 y.o. [...] PRN and Respiratory Meds:[Dec] acetaminophen Q6H PRN, [Dec] bisacodyl QDAY PRN, [Dec] hydrALAZINE Q6H PRN, [DEC Hold] labetalol (NORMODYNE; TRANDATE) injection Q6H PRN Objective Vital Signs: Last Filed Vital Signs: 24 Hour Range BP: 111/51 (07/08 1141) Temp: 36.9 C (98.4 F) (07/08 1141) Pulse: 65 (07/08 1141) Respirations: 16 PER MINUTE (07/08 114) SpO2: 99 % (07/08 114) O2 Delivery: None (Room Air) (07/08 114) BP: (111-156)/(49-70) Temp: [36.7 C (98 F)-37.6 [...] s/p suprapubic catheter that was admitted at [facility] for urosepsis, DKA, A fib [...] PROGRESS NOTE Patient Name: Valdez Anthony Room/Bed: LY7672/01 Admitting Diagnosis: Stroke Past Medical History: Diagnosis [...] occasionally in community. Prior Function Level Of [place]: Independent with ADLs and functional transfers Lives [...] Bed mobility, Ambulation, Stairs Therapist: ERIC Whalen/Cesia [id number] Date: 07/08/2018 * Whit Guadarrama MS,CCC-RN REFERRAL - 07/08/2018 9:38 AM CDT SPEECH-LANGUAGE PATHOLOGY NO TREATMENT NOTE Chart reviewed and discussed in interdisciplinary rounds. Pt NPO for colonoscopy this date. RN REFERRAL will continue to follow. Therapist: Whit Guadarrama MS,CCC-RN REFERRAL [id number] Date: 07/08/2018 * Barbi Deluna MD - [...] DKA resolved -A1c 17.4 on 07/01/2018 uncontrolled -VULCANIZER RUBBER PLATE regimen: levemir 40 units QHS, Novolog 20-25 [...] will follow up with local endocrinology in [facility] Subjective Valdez Anthony is a 57 y.o. [...] (07/07 1451) Respirations: 18 PER MINUTE (07/07 1451) SpO2: [...] prostate cancer s/p prostatectomy who presents to [facility] as a transfer from [facility] for stroke. OSH course: Pt [...] tPA given unclear window. Was transferred to [facility] for evaluation. Was given ativan 2mg enroute [...] EF, LA size 3.5cm, no thrombus - RN REFERRAL following -> recommend regular diet w/ nectar [...] however, did drop from 10.1 -> 8.9 9/17 - EGD 06/29 showed changes s/ps polypectomy, [...] > pt to f/u w/ endo @ [facility] outpt basis -> goal BS 100-140 fasting [...] -> develop stroke and was transferred to [facility] - Was placed on PO cardizem > [...] clear liquid/ada diet for procedure tomorrow Ppx: [id number] Heparin Sq Q8, SCDs Code: Full Dispo: continue admission to neuro for stroke/concern for GI bleed -> to SNF following procedure Patient was seen and discussed with Dr. Gomez. James Shook, PGY-2 Subjective: Valdez Anthony is [...] Shook DO Pager Associated attestation - Keyshawn Gomez MD - 07/07/2018 2:54 PM CDT Attending [...] d/c to inpatient facility likely tomorrow Keyshawn Gomez MD * Irma Blakely OT - 07/07/2018 11:30 AM CDT OCCUPATIONAL THERAPY Patient politely declined participation in occupational therapy session. Patient reports he is leaving for colonoscopy soon. OT will continue to follow and provide intervention as indicated. Irma Blakely OTR/L [id number] * Whit Guadarrama, MS,CCC-RN REFERRAL - 07/07/2018 9:50 AM CDT SPEECH-LANGUAGE PATHOLOGY NO TREATMENT NOTE Chart reviewed and discussed in interdisciplinary rounds. Pt NPO for colonoscopy this date. RN REFERRAL will continue to follow. Therapist: Whit Guadarrama MS,[facility]-RN REFERRAL [id number] Date: 07/07/2018 * Shira Welch RN - [...] DKA resolved -A1c 17.4 on 07/01/2018 uncontrolled -VULCANIZER RUBBER PLATE regimen: levemir 40 units QHS, Novolog 20-25 [...] will follow up with local endocrinology in [facility] Subjective Valdez Anthony is a 57 y.o. [...] Color,UA YELLOW Turbidity,UA 2+ (A) CLEAR-CLEAR Specific [place]-Urine 1.017 1.003 - 1.035 pH,UA 5.0 5.0 [...] 0 - 5 CULTURE-URINE W/SENSITIVITY Collection Time: 09/16/18 6:45 PM Result Value Ref Range Battery [...] prostate cancer s/p prostatectomy who presents to [facility] as a transfer from [facility] for stroke. OSH course: Pt [...] tPA given unclear window. Was transferred to [facility] for evaluation. Was given ativan 2mg enroute [...] EF, LA size 3.5cm, no thrombus - RN REFERRAL following -> recommend regular diet w/ nectar [...] > pt to f/u w/ endo @ [facility] outpt basis -> goal BS 100-140 fasting [...] fluids, replace lytes PRN, ADA diet Ppx: [id number] Heparin Sq Q8, SCDs Code: Full Dispo: continue admission to neuro for stroke/concern for GI bleed -> likely inpatient setting early next week Patient was seen and discussed with Dr. Gomez. 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 SPEECH-LANGUAGE PATHOLOGY COGNITIVE-COMMUNICATION ASSESSMENT EVALUATION SUMMARY Pt seen for cognitive communication evaluation utilizing the Norton Cognitive Assessment (MOCA) as well as other [...] address dysphagia and cognitive communication concerns. Ongoing RN REFERRAL at next level of care. Consistent supervision [...] city, stating we are located at [facility]. Verbal Problem Solving Comments: Functional problem solving: [...] due to glaucoma Naming 2/3 2.88 (.36) brendonaffe for camel Attention Digit Span 1/2 1.82 [...] suprapubic catheter that was admitted at [facility] for urosepsis, DKA, A fib with [...] the posterior medial left temporal lobe. 3. Christianity of flow void within the right M1 [...] spoon/cup and pureed /mech soft solids w/ RN REFERRAL only w/ less than 5% s/s of [...] from respiratory status changes. Therapist: Whit Guadarrama MS,[facility]-RN REFERRAL [id number] Date: 07/06/2018 * Aria Mccoy, PT - [...] s/p suprapubic catheter that was admitted at [facility] for urosepsis, DKA, A fib [...] spoon/cup and pureed /mech soft solids w/ RN REFERRAL only w/ less than 5% s/s of [...] speech therapy post acute hospitalization. Therapist: Cesia Hatfield/OTONIEL-RN REFERRAL (Pager [phone]; Voalte: [phone]) Date: 07/05/2018 * Darcy Goodrich MD - [...] s/p suprapubic catheter that was admitted at [facility] for urosepsis, DKA, A fib [...] EF, LA size 3.5cm, no thrombus - RN REFERRAL to eval and treat - Video swallow [...] - Rocephin 07/01 - 07/05 FEN: - [place] thick PO fluids - Daily BMP - Full Liquid diet Ppx: - DVT: 5000u Heparin Sq Q8 and SCD's to BLE Dispo: - Likely inpatient setting early next week Patient was seen and discussed with Dr. Gutierrez today Subjective Valedz Anthony is a 57 y.o. male. Patient [...] (Last 24 hours) Glucose: (!) 131 (07/05/18 0542) POC Glucose (Download): (!) 139 (07/05/18 6323) Radiology and other Diagnostics Review: Pertinent radiology reviewed. Darcy Goodrich MD Neurology PGY-4 Pager Neurology conference center coordinator pager [phone] Associated attestation - Diego Gutierrez [...] DKA resolved -A1c 17.4 on 07/01/2018 uncontrolled -VULCANIZER RUBBER PLATE regimen: levemir 40 units QHS, Novolog 20-25 [...] will follow up with local endocrinology in [facility] This is an individual we are following [...] s/p suprapubic catheter that was admitted at [facility] for urosepsis, DKA, A fib [...] EF, LA size 3.5cm, no thrombus - RN REFERRAL to eval and treat - Video swallow [...] - Rocephin 07/01 - 07/05 FEN: - Kihei thick PO fluids - Daily BMP - [...] 20,000 Units/ sodium bicarbonate 650 mg(#) PRN (Appraiser Oil And Water from Rx) Vital Signs: Last Filed in [...] the posterior medial left temporal lobe. 3. Christianity of flow void within the right M1 segment, previously noted to be occluded. Munira Ortega DO Pager [phone] Associated attestation - Diego Gutierrez MD - [...] anemia, also received another endoscopy at the [facility] OSH again without a clear [...] Sounds: Respiratory Effort: Respiratory Effort: Non-Labored * Isidoro, Rajib, MD - 07/04/2018 5:53 AM CDT Formatting of this note may be different from the original. General Progress Note Admission Date: 07/01/2018 LOS: 3 days Assessment/Plan: Principal Problem: Stroke (HCC) Active Problems: HTN (hypertension) Diabetes (HCC) Anemia Agitation Assessment: DM type 2 DKA resolved -A1c 17.4 on 07/01/2018 uncontrolled -VULCANIZER RUBBER PLATE regimen: levemir 40 units QHS, Novolog 20-25 [...] will follow up with local endocrinology in [facility] Anemia This patient is having ongoing anemia [...] 20,000 Units/ sodium bicarbonate 650 mg(#) PRN (Appraiser Oil And Water from Rx) Objective Vital Signs: Last Filed [...] Screen NEG Electronic Crossmatch YES Unit Number [id number] Blood Component Type RBC,CPDA,LEUKO REDUCED Unit Division [...] s/p suprapubic catheter that was admitted at [facility] for urosepsis, DKA, A fib [...] EF, LA size 3.5cm, no thrombus - RN REFERRAL to eval and treat - Video swallow [...] - UA negative for UTI FEN: - Kihei thick PO fluids - Daily BMP - [...] 20,000 Units/ sodium bicarbonate 650 mg(#) PRN (Appraiser Oil And Water from Rx) Vital Signs: Last Filed in [...] the posterior medial left temporal lobe. 3. Christianity of flow void within the right M1 [...] s/p suprapubic catheter that was admitted at [facility] for urosepsis, DKA, A fib [...] 6 Standardized (T-scale) Score: 16.59 Basic Mobility [facility] 0-100%: 100 CMS G Code Modifier for [...] body lift to chair for weekend, with engineer technical staff. Dicussed mobility recommendation with bedside RN. RECOMMENDATIONS: PT Discharge Recommendations PT Discharge Recommendations: Inpatient Setting Therapist: Dolores Sampson, PT Date: 07/03/2018 * Mary Grace Stanton, OT - 07/03/2018 1:33 PM CDT Formatting of this note may be different from the original. OCCUPATIONAL THERAPY PROGRESS NOTE Patient Name: Valdez Anthony Room/Bed: [place] [address] Admitting Diagnosis: Stroke Past Medical History: Diagnosis [...] non verbal with left hemiplegia. Transferred to [facility]. R MCA stroke s/p thrombectomy, stent [...] occasionally in community. Prior Function Level Of Dodge: Independent with ADLs and functional transfers Lives [...] to be determined Therapist: Mary Grace Stanton, OT Date: 07/03/2018 * Jose Hubbard - [...] Fed Thin Liquid: 1 oz, Cup, Straw [place] Thick Liquid: Cup, Straw Honey Thick Liquid: [...] spoon/cup and pureed /mech soft solids w/ RN REFERRAL only w/ less than 5% s/s of aspiration. Goal : Pt will participate in cognitive-communication assessment given mod cues. Therapist: BIANCA Lamb, L/CCC-RN REFERRAL Voalte: [phone] Date: 07/03/2018 * Alex Medel, RN - 07/03/2018 7:46 AM CDT 0750-Pt. [...] no feeding at this time. Alonzo Watt, STEEL DIE PRINTER, said the video swallow results are back [...] PM CDT Patient arrived to room # (9509) via bed accompanied by RN. Patient transferred [...] 9:20 PM CDT Pt transported to room [facility] via bed, RN x2, VSS. Pt 2100 [...] ASSESSMENT NOTE Patient Name: Valdez Anthony Room/Bed: FH3654/01 Admitting Diagnosis: Stroke Past Medical History: Diagnosis [...] non verbal with left hemiplegia. Transferred to [facility]. R MCA stroke s/p thrombectomy, stent [...] occasionally in community. Prior Function Level Of Dodge: Independent with ADLs and functional transfers Lives [...] s/p suprapubic catheter that was admitted at [facility] for urosepsis, DKA, A fib [...] Sampson, PT Date: 07/02/2018 * Alonzo Watt APRN-STEEL DIE PRINTER - 07/02/2018 1:20 PM CDT Vascular Neurology Interval Note Valdez Caal a 57 y.o.maleis a 57 y.o. male with new onset Atrial Fibrillation with RVR, HTN, HLD, T2DM, Diabetic Retinopathy, OD Blindness, Neovascular Glaucoma, Prostate Cancer s/p prostatectomy, Urinary Retention s/p suprapubic catheter that was admitted at [facility] for urosepsis, DKA , A [...] from the ICU. Updated plan: - NPO, RN REFERRAL to monitor swallow - Protein shake supplements - f/u on Blood Cxr's - Continue insulin gtt, consider endocrine consult - SBP <140 Alonzo Watt APRN-STEEL DIE PRINTER Vascular Neurology [id number] Associated attestation - Diego [...] is restart AC in 10 days, needs RN REFERRAL re-eval for get cleared otherwise PEG, Glu [...] reports that pt completed videoswallow evaluation at [facility], which she states yielded recommendations for honey [...] Continue Treatment 3-5x/week. Prognosis: Fair NOMS Dysphagia Ratin6-Fbtlclpaeg-Ofekid Dysphagia -Not able to swallow safely by mouth for nutrition/hydration but may take some consistency w/ consistent max cues in therapy only. Alternative method of feeding required. Results Reported to Physician: Yes Objective* Relevant Med Background: 57 y.o. male with A-Fib (on Coumadin VULCANIZER RUBBER PLATE), IDDM, Prostate CA, OD blindness, HLD and [...] the posterior medial left temporal lobe. 3. Christianity of flow void within the right M1 [...] videoswallow evaluation given mild-mod cues. Therapist:BIANCA Lamb L/CCC-RN REFERRAL Voalte: [phone] Date:07/02/2018 * Ciarra Valentino DO - 07/02/2018 [...] s/p suprapubic catheter that was admitted at [facility] for urosepsis, DKA , A [...] involving the medial L temporal lobe. 3. Christianity of flow void in the R M1. - Stroke Risk Factor Modification -LDL 44. Goal <70. Continue police captain senior atorvastatin 40mg -A1c 17.4. Goal <7.0 -Continue ASA. Will discuss timing of AC given Afib. -Goal BP <140 - PT/OT, Speech Consult - Consult to Rehab - Neuro-ICU monitoring, neurochecks q 1 hrs Encephalopathy -s/p Flumazenil 0.5mg x 2 -07/01 ABG 7.34/39/102/20.6 -07/01 EEG: Diffuse slowing indicative of encephalopathy. No seizures or epileptiform activity. -No sedation needs -Holding police captain senior Bupropion, Duloxetine Sedation/Pain Management: -s/p ativan 2mg and fentanyl 25mcg -s/p flumazenil 0.5 mg x 3 -No sedation needs at this time Cardiac: Afib with RVR -[id number]: 4: 4.8% Risk for stroke and 6.7% [...] - Hydralazine prn SBP >140 - Continue police captain senior Lisinopril 20mg HLD - LDL 44. Goal LDL <70. Continue police captain senior atorvastatin 20mg Respiratory: Hypoxia likely 2/2 to [...] Cx Pending -Continue CTX 1g q24h (Day 4/) -F/u OSH Blood Cultures -F/u repeat Blood [...] - Blood glucose goal 100-180mg/dl - Holding police captain senior Levemir 16 units and Novolog 5 units [...] (Last 24 hours) Glucose: (!) 127 (07/02/18 4814) POC Glucose (Download): (!) 142 (07/02/18 4030) Lab Review: 24-hour labs: Results for orders [...] Range Color,UA STRAW Turbidity,UA CLEAR CLEAR-CLEAR Specific [place]-Urine 1.018 1.003 - 1.035 pH,UA 5.0 5.0 [...] O2 Sat-Arterial 97.5 95 - 99 % Czfssuixgio-YOA-Evk 20.6 (L) 21 - 28 MMOL/L POC [...] radiologic and diagnostic procedures reviewed. Ciarra Valentino, DO Date: 07/02/[phone] Associated attestation - Veronica Doyle MD - 07/02/2018 10:31 AM CDT Formatting of this note may be different from the original. ATTESTATION See separate attestation note on the same date. Staff name: Veronica Doyle MD Date: 07/02/2018 * Noris Marie - 07/01/2018 6:50 PM CDT 25 minute STAT EEG performed bedside without difficulty. * Chris Lopez, - 07/01/2018 4:51 PM CDT RT Adult [...] urosepsis and suprapubic catheter placed at [facility] secondary to urinary retention and inability to [...] outpatient follow up Jerry Baker MD Urology conference center coordinator Please page conference center coordinator with concerns * Jaycob Ramos DO - 07/01/2018 3:49 PM CDT Attempted to see pt today but he was off the unit. Will attempt to see pt . * Veronica Doyle MD - 07/01/2018 2:45 PM CDT Formatting of this note may be different from the original. ATTESTATION I have seen, personally fully evaluated, and discussed patient with Dr Valentino and the [facility] team. I agree with the objective findings [...] Doyle MD Date: 07/01/2018 * Whit Guadarrama MS,CCC-RN REFERRAL - 07/01/2018 1:36 PM CDT SPEECH-LANGUAGE PATHOLOGY NO TREATMENT NOTE Order received and appreciated for clinical swallow evaluation. Chart reviewed and made contact with RN. Pt currently with another provider and with decreased level of arousal/responsiveness following ativan administration in the helicopter. RN REFERRAL will hold at this time per discussion with RN. RN REFERRAL will follow up and will complete evaluation when pt medically appropriate. Addendum 15:20: pt remains somnolent and unable to sustain adequate level of arousal to participate in clinical swallow evaluation per discussion with RN. RN REFERRAL will return to complete evaluation when appropriate. Chart review: Mr. Anthony presented to [facility] on 06/29 with uro-sepsis and [...] suggesting smaller completed infarct. Therapist: Whit Guadarrama MS,CCC-RN REFERRAL [id number] Date: 07/01/2018 * Mari Mullen RN - 07/01/2018 1:25 PM CDT Asked to draw blood cultures. Please consult the lab to draw the blood, if they are unable, please consult IV team and state in the consult "lab unable to obtain". Spoke to the nurse. * Anthony Sparrow RN - 07/01/2018 1:15 PM CDT IV therapy [...] Hold] metoprolol tartrate (LOPRESSOR) tablet 12.5 mg [Dec] nortriptyline (PAMELOR) capsule 10 mg [Dec] polyethylene glycol 3350 (MIRALAX) packet 17 g [Dec] QUEtiapine (SEROQUEL) tablet 25 mg [Dec] senna/docusate (SENOKOT-S) solution 10 mL Review of [...] s/p suprapubic catheter that was admitted at [facility] for urosepsis, DKA, A fib [...] Factor Modification -Lipid Panel and A1c. Continue police captain senior atorvastatin 40mg -TTE -Start ASA. -Goal BP <140 - PT/OT, Speech Consult - Consult to Rehab - Neuro-ICU monitoring, neurochecks q 1 hrs Encephalopathy likely 2/2 to Ativan, Fentanyl -s/p Flumazenil 0.5mg x 2 -ABG -CT Head w/out contrast -No sedation needs -Holding police captain senior Bupropion, Duloxetine Sedation/Pain Management: -s/p ativan 2mg and fentanyl 25mcg -s/p flumazenil 0.5 mg x 2 -No sedation needs at this time Cardiac: Afib with RVR -[id number]: 4: 4.8% Risk for stroke and 6.7% [...] due to bradycardia at OSH - Holding police captain senior Lisinopril 20mg and Metoprolol 25mg BID HLD - Lipid Panel. Goal LDL <70. Continue police captain senior atorvastatin 20mg Respiratory: DHRUV -RA - ABG [...] Retention / to stricture s/ p suprapubic catheter, -Urology [...] - Blood glucose goal 100-180mg/dl - Holding police captain senior levemir, novolog FEN: - IVF: NPO, NS [...] p suprapubic catheter that was admitted at [facility] for urosepsis, DKA, A fib with RVR requiring cardizem ggt that was transferred for concerns for stroke. Admitted on 06/28 to [facility] with week history of cough, SOB. Found to have UTI with urosepsis and DKA with CO2 of 8, BG in 600s. Admitted to the ICU at [facility]. Started on CTX and Insulin [...] language) 2=neither correct 2 1c. 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, insurance sales assistant and release non-paretic hand (other 1 step [...] diagnostic procedures reviewed. Ciarra Valentino, Date: 07/01/[phone] * Edvin Juarez, PROJECT MANAGEMENT INSTRUCTOR-STEEL DIE PRINTER - 07/01/2018 12:03 PM CDT Formatting of [...] Pertinent labs reviewed Edvin Juarez APRN-ROSEANN Pager [phone] in this encounter Procedure Notes * Amy Velasquez MD - 07/01/2018 8:07 PM CDT Procedure(s): EEG AWAKE & ASLEEP EEG REPORT Valdez Anthony [id number] DATE OF STUDY 07/01/18 PATIENT HISTORY: This [...] mL IVPB (MB+), 1 g, Intravenous, PRN (Appraiser Oil And Water from Rx) AND Ionized Calcium, , , [...] drip (std conc), 1-32 Units/hr, Intravenous, TITRATE, Chelsy, Ciarra, DO, Last Rate: 2 mL/hr at 07/01/18 [...] injection 40 mg, 40 mg, Intravenous, QDAY, Veroniac Doyle MD, 40 mg at 07/01/18 1714 [...] 250 mL IVPB, 8 mmol, Intravenous, PRN (Appraiser Oil And Water from Rx) AND Phosphorus, , , PRN [...] here. EGD showed s/p polypectomy. Transferred to [facility] for stroke. Hgb dropped from 10.1 -> [...] She also does mention that at the [facility] the patient did have an upper endoscopy [...] Date Noted Sepsis (HCC) 01/15/2016 Severe sepsis ([facility]) 01/15/2016 LATISHA (acute kidney injury) ([facility]) 01/15/2016 High anion gap metabolic acidosis 01/15/2016 Past Medical History: Diagnosis Date Arthritis DM (diabetes mellitus) ([facility]) DM eyes Glaucoma Hypertension Social History Social [...] Date Noted Anemia 07/03/2018 Agitation 07/03/2018 Stroke (HCC) 07/01/2018 HTN (hypertension) 01/15/2016 Urinary [...] Color,UA YELLOW Turbidity,UA 2+ (A) CLEAR-CLEAR Specific [place]-Urine 1.017 1.003 - 1.035 pH,UA 5.0 5.0 [...] DKA resolved -A1c 17.4 on 07/01/2018 uncontrolled -VULCANIZER RUBBER PLATE regimen: levemir 40 units QHS, Novolog 20-25 [...] will follow up with local endocrinology in [facility] Patient was seen and discussed with Dr. [...] with diabetes in 1994. He follows with starter mechanic at [facility]. At home, he was taking Levemir 40 units once a day, NovoLog 20-25 units with meal, metformin 1000 mg twice a day. His states that starter mechanic prescribe NovoLog 40 units 3 times a [...] reviewed. Brenda Larios Endocrine Fellow Pager # [phone] 07/03/2018 Associated attestation - John Chaudhry MD [...] thick full liquids today) Estimated Calorie Needs: 3874-3890 (25-28 kcal/kg desired wt) Estimated Protein Needs: 85-100 (1.2-1.4 g/kg desired wt) Oral Diet Order: Full Liquid, [place] Thick Liquids Current EN Order: Isosource 1.5 [...] s/p suprapubic catheter that was admitted at [facility] for urosepsis, DKA, A fib [...] 07/02. Pt pulled Corpak today despite mits. RN REFERRAL evaluated pt via video-swallow with moderate oropharyngeal dysphagia and baseline cognitive deficits. RN REFERRAL recommending nectar thick full liquids; diet ordered. [...] meal. Offer No Sugar Added "Light Start [place] Breakfast Essentials" shakes made with nectar thick [...] Intervention / Plan: assessed nutritional status; ordered [place] Breakfast shakes with nectar thick milk PRN monitor po intake, adequacy, tolerance and advancement per RN REFERRAL findings and recs monitor wt trends, labs, meds and GI status Nutrition Diagnosis: Altered GI function Etiology: swallowing and cognitive deficits Signs & Symptoms: RN REFERRAL findings and recs for nectar thick full liquids with supervision Goals: Patient to consume >75% of meals/supplements Time Frame: Within 72 Hours Tata Daniels, MS,RD, LD, [facility] *[phone] * Damian Hensley MD - 07/02/2018 1:16 PM CDT Associated Order(s): CONSULT REHABILITATION MEDICINE PHYSICIAN Formatting of this note may be different from the original. Rehabilitation Medicine Attending Physician Attestation: Agree with resident. Valdez Anthony is a pleasant 57 y.o. male with PMH of DM Type 2, HTN, HL, right eye blindness, glaucoma, prostate cancer s/p resection, who was admitted upon transfer from [facility] on 07/01/2018 after originally presenting there with sepsis determined to be secondary to UTI complicated by DKA and Atrial Fibrillation and then apparent AMS. [facility] showed right M1 occlusion. He [...] complexity and goals with PT, OT, and RN REFERRAL for acute inpatient rehabilitation; however, he is [...] Please have primary SWCM discuss with [facility] meeting coordinator according to the patient 's (and/or [...] a 57 y.o. male admitted to [facility] on 07/01/2018 with the following issues: R [...] hours while supine in bed, pressure relief [id number] in seated position, PRAFOs for pressure relief and to prevent contractures Jaycob Ramos, DO Rehab Consult Pager: [phone] History of Present Illness Hospital Course: Valdez Anthony is a 57 y.o. male with new onset Atrial Fibrillation with RVR, HTN , HLD, T2DM, Diabetic Retinopathy, OD Blindness, Neovascular Glaucoma, Prostate Cancer s/p prostatectomy, Urinary Retention s/p suprapubic catheter that was admitted at [facility] for urosepsis, DKA, A fib [...] urosepsis. Rehab consulted for post acute rehab/placement. VULCANIZER RUBBER PLATE pt was independent and lived at home [...] Units/ sodium bicarbonate 650 mg(#) PRN ( Appraiser Oil And Water from Rx) Allergies: No Known Allergies Prior Level of Function Prior Function Level Of Dodge: Independent with ADLs and functional transfers Lives [...] L spontaneously. Mitt and soft wrist restraints, Almond strap replaced end of session and bed [...] reports that pt completed videoswallow evaluation at [facility], which she states yielded recommendations for honey [...] Skylar Heart - 07/09/2018 11:04 AM CDT ADJUNCT BUSINESS INSTRUCTOR Note: This expert medical writer printed and placed transfer packet in pt's chart drawer, per request from [facility] Sophia Vaughn. [facility] Social Media Assistant For additional assistance, please contact [facility] Sophia Vaughn *[phone] * Anesthesia Post Op Day 1 - [...] days Todays Date: 07/09/2018 Plan D/c to [facility] today at 1:00pm via facility w/c van. Interventions WILLEM reviewed EMR and met with Neuro team for huddle. ? Support Support: Pt/Family Updates re:POC or DC Plan, Counseling for Adaptation to Illness, Counseling for Psychosocial issues SW attempted to visit pt and Leticia at bedside to update, however all parties currently working with another discipline. ? Info or Referral ? Discharge Planning Discharge Planning: Halfway Facility WILLEM sent updated clinicals to [facility] at [phone]. Update 10:00am: WILLEM spoke with Perla ([phone]) at [facility] to update. Perla educated that they will be available for transportation today at 1:00pm. WILLEM spoke with Neuro Team to update. WILLEM spoke with bedside RN to update. WILLEM tasked ADJUNCT BUSINESS INSTRUCTOR to deliver transfer packet. RN Report: [phone] WILLEM faxed d/c orders to [facility] at [phone]. ? Medication Needs ? Financial ? Legal [...] for the patient. Sophia Vaughn LMSW Phone: [phone] Pager: [phone] * Case Mgmt DC Plan - Sophia Vaughn - 07/08/2018 9:10 AM CDT Formatting of this note may be different from the original. Case Management Progress Note NAME:Valdez Anthony :1959 AGE: 57 y.o. ADMISSION DATE: 07/01/2018 DAYS ADMITTED: LOS: 7 days Todays Date: 07/08/2018 Plan Anticipate d/c to [facility] tomorrow pending pt stability. Interventions WILLEM reviewed [...] or Referral ? Discharge Planning Discharge Planning: [facility]way Facility WILLEM received and returned message for Angela ([phone]) at [facility] to discuss referral. Update 10:00am: WILLEM spoke with Blanquita ([phone]) at [facility] to update of anticipated d/c timeline. Blanquita educated that they are still reviewing for potential admission and will be contacting pt's to further discuss an admission. However, they will notify WILLEM once decision reached. Update 10:44am: WILLEM spoke with Perla at [facility] to update. Perla educated that they are able to accept for admission and will have their w/c van available for such. ? Medication Needs ? Financial [employer] following for assistance with [employer] ariel. ? Legal ? Other Other/None: [...] for the patient. Sophia Vaughn LMSW Phone: [phone] Pager: [phone] * Care Plan - Shira Welch RN [...] Todays Date: 07/07/2018 Plan Anticipate d/c to [facility] tomorrow pending pt stability and facility acceptance. Interventions SW reviewed EMR and met with Neuro team for huddle. GI consulted. Anticipated EGD today. ? Support Support: Pt/Family Updates re:POC or DC Plan, Counseling for Adaptation to Illness, Counseling for Psychosocial issues ? Info or Referral ? Discharge Planning Discharge Planning: [facility] Facility WILLEM left message for Admissions ([phone]) at [facility] to discuss referral. Update 11:40am: WILLEM spoke with Hyacinth ([phone]) at [facility] and they are unable to locate referral. SW agreeable to re-send referral to [phone], which WILLEM completed. Hyacinth educated that she will review and follow up. 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 Update 1:20pm: SW received message from Hyacinth and they are still unable to locate referral. WILLEM manually faxed referral to [phone], as requested. Update 2:00pm: SW received message from Hyacinth that they only got a portion of the referral. WILLEM re-faxed referral to [phone]. Update 4:00pm: WILLEM received and returned message for Angela ([phone]) at [facility]. ? Medication Needs ? Financial ? Legal [...] for the patient. Sophia Vaughn LMSW Phone: [phone] Pager: [phone] * Care Plan - Shira Welch RN [...] Liana Ortiz - 07/06/2018 10:50 AM CDT [facility] Note: Received request from [facility] Sophia Vaughn to fax referrals to the following placements. [facility] was also asked to check wheelchair van costs to the facility. [facility] - $350-375 [facility] - $500-525 [facility] - $400-425 [facility] w/c van - $430 All subject to time, billed libertarian, needs, etc. Updated [facility] Liana Ortiz Social Media Assistant For additional assistance please contact [facility] Sophia Vaughn *[phone] * Case Mgmt DC Plan - Sophia Vaughn - 07/06/2018 10:36 AM CDT Formatting of this note may be different from the original. Case Management Progress Note NAME:Valdez Anthony :1959 AGE: 57 y.o. ADMISSION DATE: 07/01/2018 DAYS ADMITTED: LOS: 5 days Todays Date: 07/06/2018 Plan Anticipate d/c to [facility] tomorrow vs Friday pending pt stability and facility acceptance. Interventions SW reviewed EMR and met with Neuro team for huddle. Anticipate GI consult. Continue to monitor hgb. ? Support Support: Pt/Family Updates re:POC or DC Plan, Counseling for Adaptation to Illness, Counseling for Psychosocial issues SW visited pt and Leticia at bedside to discuss DCP. Leticia requested referral to [facility]. SW agreeable and reviewed referral process. SW also reviewed potential private pay cost of w/c van should SNF be unable to assist. Leticia uncertain regarding their ability to private pay, however unwilling to remain in [facility] for SNF stay. SW agreeable to obtaining quote for ongoing assistance. ? Info or Referral ? Discharge Planning Discharge Planning: [facility]way Facility SW tasked ADJUNCT BUSINESS INSTRUCTOR to send referral to [facility]. SW tasked ADJUNCT BUSINESS INSTRUCTOR to check rosenberg of w/c van. ? [...] for the patient. Sophia Vaughn LMSW Phone: [phone] Pager: [phone] * Case Mgmt DC Plan - Sophia [...] on SNF level of care and benefit. SW provided list of options. Leticia endorsing understanding of SNF level of care from family members working in SNFs. Leticia educated that she will review options this weekend and denied current concerns. ? Info or Referral ? Discharge Planning Discharge Planning: Halfway Facility ? Medication Needs ? Financial ? [...] for the patient. Sophia Vaughn LMSW Phone: [phone] Pager: *[phone] * Transfer - Ciarra Valentino, DO - [...] s/p suprapubic catheter that was admitted at [facility] for urosepsis, DKA , A [...] Started on ASA. LDL 40, continued on police captain senior atrovastatin. PT/OT and Speech consulted. CV: Initially started on Nicardipine ggt for goal SBP <140. Restarted on police captain senior lisinopril. Intermittent Afib on telemetry. Restarted on [...] s/p suprapubic catheter placement. On CTX Day 4. OSH Urine Cultures showing no growth, finalized. OSH blood cultures growing coag neg staph. Repeat blood cultures pending. Renal/: Urinary retention s/p suprapubic catheter at OSH. Urology consulted. Endo: DKA at OSH. DKA resolved. Insulin ggt continued. Holding police captain senior Levemir and Novolog. Consider Endocrine consult. Significant [...] Discharge Plan: Undetermined Ciarra Valentino DO Pager [phone] * Case Mgmt DC Plan - Sophia Vaughn - 07/01/2018 3:09 PM CDT Case Management Admission Assessment NAME:Valdez Anthony :1959 AGE: 57 y.o. ADMISSION DATE: 07/01/2018 DAYS ADMITTED: LOS: 0 days Todays Date: 07/01/2018 Source of Information: SW visited pt's Leticia and pt's OCTAVIANO Moseley at bedside. Plan Plan: CM Assessment, Assist PRN with SW/NC Services Patient Address/Phone [address] [phone] (home) Emergency Contact Extended Emergency Contact Information Primary Emergency Contact: Suzie English ([facility]) Relation: Relative Secondary Emergency Contact: Leticia Anthony (Judy) [facility] [place] Relation: Spouse Healthcare Directive None Transportation [...] (Medicare Part A and B) Secondary Insurance: VA/[facility] ([facility]) Additional Coverage: VA (fills at [facility]. ) ? Source of Income Source Of Income: SSDI ? Financial Assistance Needed? None Psychosocial Needs ? Mental Health Mental Health History: No ? Substance Use History Substance Use History Screen: No ? Other None Current/Previous Services ? PCP Chris Seay APRN at [facility] ([phone] ext [phone]) ? Pharmacy [facility] [address] [address] ? Durable Medical Equipment Durable Medical Equipment [...] ? Outpatient Therapy PT: No OT: No RN REFERRAL: No ? Halfway Facility/Intermediate SNF: No NH: No Pt's OCTAVIANO Moseley works at [employer], therefore family understanding of LTC and SNF level of cares. ? Inpatient Rehab IPR: No ? [facility] LTACH: No ? Acute Hospital Stay Acute Hospital Stay: In the past Was patient's stay within the last 30 days?: No Sophia Vaughn LMSW Phone: [phone] Pager: [phone] * Acute Stroke Response - Alonzo Watt [...] 57 y.o. male with A-Fib (on Coumadin VULCANIZER RUBBER PLATE), IDDM, Prostate CA, OD blindness, HLD and [...] due to positive occult) - 300mg ASA NC daily - Echocardiogram - MRI head w/o contrast in AM of 07/02 - Monitor telemetry for arrhythmia - NPO - RN REFERRAL to eval speech when more alert - PT/OT to eval and treat - Rehab Medicine Consult The patient was seen and discussed with Dr. Gutierrez [facility] of Present Illness: Mr. Anthony presented to [facility] on 06/[facility] with uro-sepsis and DKA. Supra- [...] then to IR for EVT. At [facility] he had dropping Hgb and positive heme [...] language) 2=neither correct 2 1c. 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, insurance sales assistant and release non-paretic hand (other 1 step [...] Medications: [MAR Hold] calcium gluconate IV PRN ([employer] Water from Rx) AND Ionized Calcium PRN AND Notify Physician Ongoing, [MAR Hold] magnesium sulfate PRN AND Magnesium PRN AND Notify Physician Ongoing, [MAR Hold] potassium chloride SR PRN OR [MAR Hold] potassium chloride PRN, [MAR Hold] sodium phosphate IVPB PRN ([employer] Water from Rx) AND Phosphorus PRN AND Notify [...] Date: 07/01/2018 Attending Physician: Lulu Perry MD Clinical Office Technician(s): Miri Nair Stroke Treatment Time out performed: [...] Sedated from ativan Lulu Perry MD Pager: [phone] * Acute Stroke Response - Hannah Ceballos RN - 07/01/2018 12:14 PM CDT Formatting of this note may be different from the original. RN Stroke Activation Summary Date of Service: 07/01/2018 Valdez Anthony is a 57 y.o. male. : 1960 Allergies: Patient has no known allergies. Patient Arrival: 1118 ASRT Arrival: 1108 Location of Response : [place] [facility] elevator 2nd floor Page Received: 1102 (ETA 10 minutes) EMS Agency: [facility] Outside Hospital: [facility] Clinical Presentation: Decreased LOC, [...] Summary: Report received from MAXINE Pardo at [facility] in [place], [place]. Per report patient last known well today at 0730. At 0825 she noted patient to be less responsive with left side flaccid, dysarthria and left facial droop. Patient transferred to [facility] and upon arrival had decreased LOC. [...] dressing applied at 1228. Patient transported to CT 5120, VSS and no complications noted. Report given to MAXINE Cooley. CT/CTP/CTA/IR: CTA/CTP time: 1125 CTA/CTP Interpretation time: 1145 N/A Plan: Patient admitted to CT 5120 post procedure for further evaluation and [...] of Treatment Name Priority Associated Diagnoses Date/Time TRANSFUSE RBC'S NON-BLEEDING PT Routine 07/04/2018 1:30 AM CDT TRANSFUSE RBC'S NON-BLEEDING PT Routine 07/04/2018 1:30 AM CDT Name Priority Associated Diagnoses Order Schedule [...] results section. in this encounter Results * TELEMETRY STRIPS-SCAN (07/17/2018 10:07 AM) Narrative Performed At Ordered by an unspecified provider. * TELEMETRY STRIPS-SCAN (07/17/2018 7:10 AM) Narrative Performed At Ordered by an unspecified provider. * POC GLUCOSE (07/09/2018 3:42 PM) Glucose, POC 87 70 - 100 MG/DL [facility] Performing Organization Address City/[facility] [address]/[facility] Phone Number [employer] MAIN LAB [address] [place] [address] * POC GLUCOSE (07/09/2018 3:34 PM) Glucose, POC 66 (L) 70 - 100 MG/DL [facility] Performing Organization Address [facility] [address]/[facility] Phone Number [employer] MAIN LAB [address] [place] [address] * POC GLUCOSE (07/09/2018 3:18 PM) Glucose, POC 69 (L) 70 - 100 MG/DL [facility] Performing Organization Address City/[facility] [address]/[facility] Phone Number [facility] [address] [place] [address] * POC GLUCOSE (07/09/2018 1:49 PM) Glucose, POC 136 (H) 70 - 100 MG/DL [facility] Performing Organization Address [facility] [address]/[facility] Phone Number [facility] [address] [place] [address] * POC GLUCOSE (07/09/2018 11:40 AM) Glucose, POC 158 (H) 70 - 100 MG/DL [facility] Performing Organization Address [facility] [address]/[facility] [place] Phone Number [facility] [address] [place] [address] * POC GLUCOSE (07/09/2018 8:35 AM) Glucose, POC 104 (H) 70 - 100 MG/DL [facility] Performing Organization Address [facility] [address]/[facility] [place] Phone Number [facility] [address] [place] [address] * COMPREHENSIVE METABOLIC PANEL (07/09/2018 5:47 AM) [...] questions. Specimen Blood Performing Organization Address [facility] [address]/[facility] Phone Number [facility] [address] [place] [address] * CBC AND DIFF (07/09/2018 5:47 AM) White Blood Cells 15.4 (H) 4.5 - 11.0 K/UL MAIN LAB RBC 2.96 (L) 4.4 - 5.5 M/UL MAIN LAB Hemoglobin 8.9 (L) 13.5 - 16.5 GM/DL MAIN LAB Hematocrit 26.7 (L) 40 - 50 % MAIN LAB MCV 90.0 80 - 100 FL MAIN LAB MCH 29.9 26 - 34 PG MAIN LAB MCHC 33.2 32.0 - 36.0 G/DL [facility] LAB RDW 14.3 11 - 15 % MAIN LAB Platelet Count 459 (H) 150 - 400 K/[facility] MAIN LAB MPV 8.2 7 - 11 FL MAIN LAB Neutrophils 77 41 - 77 % [facility] Lymphocytes 14 (L) 24 - 44 % MAIN LAB Monocytes 8 4 - 12 % MAIN LAB Eosinophils 1 0 - 5 % [facility] LAB Basophils 0 0 - 2 % [facility] LAB Absolute Neutrophil Count 11.70 (H) 1.8 - 7.0 K/UL MAIN LAB Absolute Lymph Count 2.10 1.0 - 4.8 K/UL MAIN LAB Absolute Monocyte Count 1.30 (H) 0 - 0.80 K/UL [facility] LAB Absolute Eosinophil Count 0.20 0 - 0.45 K/UL MAIN LAB Absolute Basophil Count 0.00 0 - 0.20 K/UL MAIN LAB Specimen Blood Performing Organization Address City/[facility] [address]/[facility] [place] Phone Number MAIN LAB [address] [place] [address] * POC GLUCOSE (07/09/2018 3:09 AM) Glucose, POC 151 (H) 70 - 100 MG/DL MAIN LAB Performing Organization Address City/[facility] [address]/[facility] Phone Number MAIN LAB [address] [place] [address] * POC GLUCOSE (07/09/2018 1:10 AM) Glucose, POC 80 70 - 100 MG/DL MAIN LAB Performing Organization Address City/[facility] [address]/[facility] Phone Number MAIN LAB [address] [place] [address] * CULTURE-BLOOD W/SENSITIVITY (07/08/2018 10:25 PM) Battery Name BLOOD CULTURE MAIN LAB Specimen Description BLOOD MAIN LAB LEFT HAND Special Requests NONE MAIN LAB Culture NO GROWTH 5 DAYS MAIN LAB Report Status FINAL MAIN LAB 07/14/2018 Specimen Blood Performing Organization Address City/[facility] [address]/Zipcode Phone Number MAIN LAB [address] [place] [address] * POC GLUCOSE (07/08/2018 9:52 PM) Glucose, POC 96 70 - 100 MG/DL [facility] Performing Organization Address City/[facility] [address]/Zipcode Phone Number MAIN LAB [address] [place] [address] * CULTURE-BLOOD W/SENSITIVITY (07/08/2018 8:20 PM) Battery Name BLOOD CULTURE MAIN LAB Specimen Description BLOOD MAIN LAB LEFT ANTECUBITAL Special Requests NONE MAIN LAB Culture NO GROWTH 5 DAYS MAIN LAB Report Status FINAL MAIN LAB 07/14/2018 Specimen Blood Performing Organization Address City/[facility] [address]/Zipcode Phone Number MAIN LAB [address] [place] [address] * POC GLUCOSE (07/08/2018 5:56 PM) Glucose, POC 129 (H) 70 - 100 MG/DL [facility] Performing Organization Address City/[facility] [address]/[facility] [place] Phone Number MAIN LAB [address] [place] [address] * SURGICAL PATHOLOGY (07/08/2018 4:34 PM) PATHOLOGY REPORT [facility] [employer] [facility] [email or web address] Department of Pathology and Laboratory Medicine [address] [place] [address] Surgical Pathology Office:[phone] :[phone] SURGICAL PATHOLOGY REPORT NAME: VALDEZ ANTHONY SURG PATH #: [id number] MR #: [id number] SPECIMEN CLASS: SR BILLING #: [id number] ALT ID #:LOCATION: DISCHARGED DATE OF PROCEDURE: 07/08/2018 AGE:57 SEX: M DATE RECEIVED: 07/08/2018 : 1960TIME RECEIVED:16:34 PHYSICIAN: CLARA CAROLINA DATE OF REPORT: 07/11/2018 COPY TO:DATE [...] cassette C1. (ab) ab/07/08/2018 Performing Organization Address City/State/Zipcode Phone Number [facility] RESULTS * REFLEX CULTURE LABEL (07/08/2018 4:09 PM) UA Reflex Culture LAB LABEL [facility] Specimen Urine Performing Organization Address [facility] [address] [facility] [place] Phone Number [facility] [address] [place] [address] * URINALYSIS MICROSCOPIC REFLEX TO CULTURE (07/08/2018 4:09 PM) WBCs,UA 0-2 0 - 2 /HPF [facility] RBCs,UA 0-2 0 - 3 /HPF [facility] Comment,UA Urine submitted for reflex [facility] culture if criteria are met:WBC>10, positive nitrite and/or >=1+ leukocyte esterase. If quantity is not sufficient, an addendum will follow. Specimen Urine Performing Organization Address [facility] [place] Phone Number [facility] [address] [place] [address] * URINALYSIS DIPSTICK REFLEX TO CULTURE (07/08/2018 4:09 PM) Color,UA STRAW [facility] Turbidity,UA CLEAR CLEAR-CLEAR [facility] Specific [place]-Urine 1.005 1.003 - 1.035 [facility] MAIN LAB [...] MAIN LAB Specimen Urine Performing Organization Address [facility] [place] Phone Number [facility] [address] [place] [address] * CHEST SINGLE VIEW (07/08/2018 2:15 PM) [...] on 07/08/2018 2:17 PM. Performing Organization Address City/[facility] [address]/Zipcode Phone Number RAD RESULTS * POC GLUCOSE (07/08/2018 1:57 PM) Glucose, POC 75 70 - 100 MG/DL [facility] Performing Organization Address City/[facility] [address]/[facility] Phone Number [facility] [address] [place] [address] * POC GLUCOSE (07/08/2018 1:21 PM) Glucose, POC 67 (L) 70 - 100 MG/DL [facility] Performing Organization Address City/[facility] [address]/Zipcode Phone Number [facility] [address] [place] [address] * POC GLUCOSE (07/08/2018 11:46 AM) Glucose, POC 164 (H) 70 - 100 MG/DL [facility] Performing Organization Address City/[facility] [address]/[facility] [place] Phone Number [facility] [address] [place] [address] * POC GLUCOSE (07/08/2018 11:22 AM) Glucose, POC 40 (LL) 70 - 100 MG/DL MAIN LAB Performing Organization Address City/State/Zipcode Phone Number MAIN LAB [address] [place] [address] * EGD REPORT (07/08/2018 10:48 AM) Provation Report Patient Name: Raj DIMAS OTHER RESULTS Procedure Date: 07/08/2018 10:48 AM CSN: [id number] Date of : 1960 Gender: Male Attending Physician: Clara Carolina MD Procedure: Upper GI endoscopy Indications: Anemia (Mixed picture of anemia of chronic disease + Iron deficiency anemia), new onset of Afib and not on AC. Providers: Clara Carolina MD (Doctor), Roberto Dutta MD (Fellow), Alvaor Banegas (Nurse), Minna Jiménez RN (Nurse), Abisai Burden, Comber Tender (Comber Tender) Referring Physician: Referral Self Medications: Monitored Anesthesia [...] 55 seconds Procedure Code(s): --- Professional --- 54447, Esophagogastroduodenoscopy, flexible, transoral; with biopsy, single or multiple Diagnosis Code(s): --- Professional --- K44.9, Diaphragmatic hernia without obstruction or gangrene K31.89, Other diseases of stomach and duodenum D50.0, Iron deficiency anemia secondary to blood loss (chronic) CPT copyright 2016 [employer]. All rights reserved. The codes documented in this report are preliminary and upon health information coder review may be revised to meet current [...] RESULTS Procedure Date: 07/08/2018 10:47 AM CSN: [id number] Date of : 1960 Gender: Male Attending Physician: Clara Carolina MD Procedure: Colonoscop y Indications: Anemia (Mixed picture of anemia of chronic disease + Iron deficiency anemia), new onset of Afib and not on AC. Providers: Clara Carolina MD (Doctor), Roberto Dutta MD (Fellow), Alvaro Banegas (Nurse), Minna Jiménez RN (Nurse), Abisai Burden Comber Tender (Comber Tender) Referring Physician: Gerard Salazar MD Medications: Monitored [...] 15 seconds Procedure Code(s): --- Professional --- 41621, Colonoscopy, flexible; diagnostic, including collection of specimen(s) by brushing or washing, when performed (separate procedure) Diagnosis Code(s): --- Professional --- D50.0, Iron deficiency anemia secondary to blood loss (chronic) CPT copyright 2016 [employer]. All rights reserved. The codes documented in this report are preliminary and upon health information coder review may be revised to meet current [...] Address City/State/Zipcode Phone Number MAIN LAB [address] [place] [address] * PROCALCITONIN (07/08/2018 5:53 AM) Procalcitonin 0.13 (H) <0.10 NG/ML [facility] Performing Organization Address [facility] [address] [facility] [place] Phone Number MAIN LAB [address] [place] [address] * COMPREHENSIVE METABOLIC PANEL (07/08/2018 5:53 AM) [...] questions. Specimen Blood Performing Organization Address [facility] [address]/Zipcode Phone Number [facility] [address] [place] [address] * CBC AND DIFF (07/08/2018 5:53 AM) White Blood Cells 21.7 (H) 4.5 - 11.0 K/UL [facility] RBC 3.04 (L) 4.4 - 5.5 M/UL [facility] Hemoglobin 9.3 (L) 13.5 - 16.5 GM/DL [facility] Hematocrit 27.5 (L) 40 - 50 % [facility] MCV 90.4 80 - 100 FL MAIN LAB MCH 30.4 26 - 34 PG MAIN LAB MCHC 33.6 32.0 - 36.0 G/DL MAIN LAB RDW 14.2 11 - 15 % [facility] Platelet Count 521 (H) 150 - 400 K/UL MAIN LAB MPV 8.0 7 - 11 FL MAIN LAB Neutrophils 85 (H) 41 - 77 % [facility] Lymphocytes 7 (L) 24 - 44 % MAIN LAB Monocytes 8 4 - 12 % MAIN LAB Eosinophils 0 0 - 5 % [facility] Basophils 0 0 - 2 % [facility] Absolute Neutrophil Count 18.40 (H) 1.8 - 7.0 K/UL [facility] Absolute Lymph Count 1.50 1.0 - 4.8 K/UL MAIN LAB Absolute Monocyte Count 1.70 (H) 0 - 0.80 K/UL MAIN LAB Absolute Eosinophil Count 0.10 0 - 0.45 K/UL MAIN LAB Absolute Basophil Count 0.00 0 - 0.20 K/UL MAIN LAB Specimen Blood Performing Organization Address City/[facility] [address]/[facility] [place] Phone Number MAIN LAB [address] [place] [address] * POC GLUCOSE (07/07/2018 9:26 PM) Glucose, POC 176 (H) 70 - 100 MG/DL KU MAIN LAB Performing Organization Address City/[facility] [address]/[facility] [place] Phone Number MAIN LAB [address] [place] [address] * POC GLUCOSE (07/07/2018 5:54 PM) Glucose, POC 111 (H) 70 - 100 MG/DL KU MAIN LAB Performing Organization Address City/[facility] [address]/[facility] [place] Phone Number MAIN LAB [address] [place] [address] * POC GLUCOSE (07/07/2018 11:30 AM) Glucose, POC 90 70 - 100 MG/DL KU MAIN LAB Performing Organization Address City/[facility] [address]/[facility] [place] Phone Number MAIN LAB [address] [place] [address] * CBC AND DIFF (07/07/2018 8:00 AM) [...] 1.90 (H) 0 - 0.80 K/UL KU [facility] LAB Absolute Eosinophil Count 0.20 0 - 0.45 K/UL KU MAIN LAB Absolute Basophil Count 0.10 0 - 0.20 K/UL MAIN LAB Specimen Blood Performing Organization Address City/State/Zipcode Phone Number MAIN LAB [address] [place] [address] * POC GLUCOSE (07/07/2018 7:49 AM) Glucose, POC 182 (H) 70 - 100 MG/DL MAIN LAB Performing Organization Address City/[facility] [address]/[facility] [place] Phone Number [facility] [address] [place] [address] * COMPREHENSIVE METABOLIC PANEL (07/07/2018 5:45 AM) [...] Total Protein 6.0 6.0 - 8.0 G/DL MAIN LAB Total Bilirubin 0.6 0.3 - 1.2 MG/DL MAIN LAB Albumin 3.1 (L) 3.5 - 5.0 G/DL MAIN LAB Alk Phosphatase 120 (H) 25 - 110 U/L MAIN LAB AST (SGOT) 20 7 - 40 U/L KU MAIN LAB CO2 25 21 - 30 MMOL/L MAIN LAB ALT (SGPT) 19 7 - 56 U/L MAIN LAB Anion Gap 9 3 - [...] Clinical Pharmacist for questions. Performing Organization Address City/[facility] [address]/Zipcode Phone Number [facility] [address] [place] [address] * HEMOGLOBIN (07/07/2018 5:45 AM) Hemoglobin 9.5 (L) 13.5 - 16.5 GM/DL [facility] LAB Comment: Corrected on 07/09 AT 1021: previously reported as DUPLICATE ORDER, Corrected on 07/07 AT 0811: previously reported as 9.5 Specimen Blood Performing Organization Address [facility] [address]/Zipcode Phone Number [facility] [address] [place] [address] * HEMOGLOBIN (07/06/2018 10:45 PM) Hemoglobin 10.5 (L) 13.5 - 16.5 GM/DL MAIN LAB Specimen Blood Performing Organization Address City/[facility] [address]/Zipcode Phone Number MAIN LAB [address] [place] [address] * OCCULT BLOOD NON COLON CANCER SCREEN (07/06/2018 10:45 PM) Battery Name OCCULT BLOOD SCREEN MAIN LAB Specimen Description FECES KU MAIN LAB Special Requests NONE KU MAIN LAB Occult Blood NEGATIVE MAIN LAB Report Status FINAL MAIN LAB 07/06/2018 Specimen Stool - Feces Performing Organization Address City/[facility] [address]/Zipcode Phone Number MAIN LAB [address] [place] [address] * POC GLUCOSE (07/06/2018 9:04 PM) Glucose, POC 115 (H) 70 - 100 MG/DL KU MAIN LAB Performing Organization Address City/[facility] [address]/[facility] [place] Phone Number MAIN LAB [address] [place] [address] * POC GLUCOSE (07/06/2018 5:11 PM) Glucose, POC 150 (H) 70 - 100 MG/DL KU MAIN LAB Performing Organization Address City/[facility] [address]/Zipcode Phone Number MAIN LAB [address] [place] [address] * POC GLUCOSE (07/06/2018 2:36 PM) Glucose, POC 196 (H) 70 - 100 MG/DL MAIN LAB Performing Organization Address City/[facility] [address]/Zipcode Phone Number MAIN LAB [address] [place] [address] * HEMOGLOBIN (07/06/2018 1:31 PM) Hemoglobin 8.9 (L) 13.5 - 16.5 GM/DL MAIN LAB Specimen Blood Performing Organization Address City/[facility] [address]/[facility] [place] Phone Number MAIN LAB [address] [place] [address] * POC GLUCOSE (07/06/2018 11:49 AM) Glucose, POC 153 (H) 70 - 100 MG/DL MAIN LAB Performing Organization Address City/[facility] [address]/[facility] [place] Phone Number MAIN LAB [address] [place] [address] * POC GLUCOSE (07/06/2018 7:29 AM) Glucose, POC 130 (H) 70 - 100 MG/DL MAIN LAB Performing Organization Address City/[facility] [address]/Zipcode Phone Number MAIN LAB [address] [place] [address] * HEMOGLOBIN (07/06/2018 4:27 AM) Hemoglobin 9.1 (L) 13.5 - 16.5 GM/DL MAIN LAB Specimen Blood Performing Organization Address City/[facility] [address]/Zipcode Phone Number MAIN LAB [address] [place] [address] * CBC (07/06/2018 4:27 AM) White Blood [...] MAIN LAB Specimen Blood Performing Organization Address City/[facility] [address]/[facility] Phone Number [facility] [address] [place] [address] * BASIC METABOLIC PANEL (07/06/2018 4:27 AM) [...] for questions. Specimen Blood Performing Organization Address City/[facility] [address]/[facility] Phone Number [facility] [address] [place] [address] * POC GLUCOSE (07/06/2018 2:35 AM) Glucose, POC 132 (H) 70 - 100 MG/DL MAIN LAB Performing Organization Address City/[facility] [address]/Zipcode Phone Number KU MAIN LAB [address] [place] [address] * POC GLUCOSE (07/05/2018 10:09 PM) Glucose, POC 89 70 - 100 MG/DL KU MAIN LAB Performing Organization Address City/[facility] [address]/[facility] [place] Phone Number KU MAIN LAB [address] [place] [address] * HEMOGLOBIN (07/05/2018 9:40 PM) Hemoglobin 10.1 (L) 13.5 - 16.5 GM/DL MAIN LAB Specimen Blood Performing Organization Address City/[facility] [address]/[facility] [place] Phone Number KU MAIN LAB [address] [place] [address] * POC GLUCOSE (07/05/2018 9:37 PM) Glucose, POC 77 70 - 100 MG/DL KU MAIN LAB Performing Organization Address City/[facility] [address]/[facility] [place] Phone Number MAIN LAB [address] [place] [address] * POC GLUCOSE (07/05/2018 8:15 PM) Glucose, POC 81 70 - 100 MG/DL KU MAIN LAB Performing Organization Address City/[facility] [address]/[facility] [place] Phone Number KU MAIN LAB [address] [place] [address] * CULTURE-URINE W/SENSITIVITY (07/05/2018 6:45 PM) Battery Name URINE CULTURE MAIN LAB Specimen Description URINE MAIN LAB Special Requests NONE KU MAIN LAB Culture NO GROWTH KU MAIN LAB Report Status FINAL KU MAIN LAB 07/06/2018 Specimen Urine Performing Organization Address City/[facility] [address]/[facility] [place] Phone Number [facility] MAIN LAB [address] [place] [address] * UA REFLEX CULTURE LABEL (07/05/2018 6:45 PM) UA Reflex Culture LAB LABEL KU MAIN LAB Specimen Urine Performing Organization Address City/[facility] [address]/[facility] [place] Phone Number KU MAIN LAB [address] [place] [address] * URINALYSIS MICROSCOPIC REFLEX TO CULTURE (07/05/2018 [...] MAIN LAB Specimen Urine Performing Organization Address City/[facility] [address]/[facility] [place] Phone Number KU MAIN LAB [address] [place] [id number] * URINALYSIS DIPSTICK REFLEX TO CULTURE (07/05/2018 6:45 PM) Color,UA YELLOW KU MAIN LAB Turbidity,UA 2+ (A) CLEAR-CLEAR KU MAIN LAB Specific [place]-Urine 1.017 1.003 - 1.035 KU MAIN LAB [...] LAB Specimen Urine Performing Organization Address [facility] [address]/[facility] [place]rel[place] Phone Number KU MAIN LAB [address] [place] [address] * POC GLUCOSE (07/05/2018 4:37 PM) Glucose, POC 79 70 - 100 MG/DL KU MAIN LAB Performing Organization Address [facility] [address]/[facility] [place] Phone Number KU MAIN LAB [address] [place] [address] * POC GLUCOSE (07/05/2018 2:02 PM) Glucose, POC 92 70 - 100 MG/DL KU MAIN LAB Performing Organization Address [facility] [address]/[employer] Phone Number KU MAIN LAB [address] [place] [address] * HEMOGLOBIN (07/05/2018 2:00 PM) Hemoglobin 9.6 (L) 13.5 - 16.5 GM/DL KU MAIN LAB Specimen Blood Performing Organization Address [facility] [address]/[employer] Phone Number KU MAIN LAB [address] [place] [address] * POC GLUCOSE (07/05/2018 11:32 AM) Glucose, POC 102 (H) 70 - 100 MG/DL KU MAIN LAB Performing Organization Address [facility] [address]/[facility] [place] Phone Number KU MAIN LAB [address] [place] [address] * ABDOMEN AP ONLY (07/05/2018 9:20 AM) [...] on 07/05/2018 10:21 AM. Performing Organization Address City/[facility] [address]/[facility] [place] Phone Number KU RAD RESULTS * POC GLUCOSE (07/05/2018 6:56 AM) Glucose, POC 139 (H) 70 - 100 MG/DL KU MAIN LAB Performing Organization Address [facility] [address]/[facility] [place] Phone Number KU MAIN LAB [address] [place] [address] * CBC (07/05/2018 5:50 AM) White Blood [...] MAIN LAB Specimen Blood Performing Organization Address City/[facility] [address]/Zipcode Phone Number MAIN LAB [address] [place] [address] * POC GLUCOSE (07/05/2018 5:29 AM) Glucose, POC 125 (H) 70 - 100 MG/DL KU MAIN LAB Performing Organization Address City/[facility] [address]/Zipcode Phone Number MAIN LAB [address] [place] [address] * BASIC METABOLIC PANEL (07/05/2018 5:25 AM) [...] City/State/Zipcode Phone Number KU MAIN LAB [address] [place] [address] * POC GLUCOSE (07/05/2018 2:37 AM) Glucose, POC 103 (H) 70 - 100 MG/DL KU MAIN LAB Performing Organization Address City/[facility] [address]/Zipcode Phone Number KU MAIN LAB [address] [place] [address] * POC GLUCOSE (07/05/2018 1:31 AM) Glucose, POC 94 70 - 100 MG/DL KU MAIN LAB Performing Organization Address City/State/Zipcode Phone Number MAIN LAB [address] [place] [address] * POC GLUCOSE (07/05/2018 12:41 AM) Glucose, POC 121 (H) 70 - 100 MG/DL KU MAIN LAB Performing Organization Address City/[facility] [address]/Zipcode Phone Number MAIN LAB [address] [place] [address] * POC GLUCOSE (07/04/2018 11:19 PM) Glucose, POC 84 70 - 100 MG/DL KU MAIN LAB Performing Organization Address City/[facility] [address]/Zipcode Phone Number MAIN LAB [address] [place] [address] * HEMOGLOBIN (07/04/2018 9:30 PM) Hemoglobin 13.5 13.5 - 16.5 GM/DL KU MAIN LAB Specimen Blood Performing Organization Address City/[facility] [address]/Zipcode Phone Number MAIN LAB [address] [place] [address] * POC GLUCOSE (07/04/2018 9:15 PM) Glucose, POC 105 (H) 70 - 100 MG/DL KU MAIN LAB Performing Organization Address City/[facility] [address]/Zipcode Phone Number MAIN LAB [address] [place] [address] * POC GLUCOSE (07/04/2018 7:50 PM) Glucose, POC 164 (H) 70 - 100 MG/DL KU MAIN LAB Performing Organization Address City/[facility] [address]/Zipcode Phone Number KU MAIN LAB [address] [place] [address] * POC GLUCOSE (07/04/2018 7:23 PM) Glucose, POC 44 (LL) 70 - 100 MG/DL KU MAIN LAB Performing Organization Address City/[facility] [address]/[facility] [place] Phone Number KU MAIN LAB [address] [place] [address] * POC GLUCOSE (07/04/2018 5:10 PM) Glucose, POC 96 70 - 100 MG/DL KU MAIN LAB Performing Organization Address City/[facility] [address]/[facility] [place] Phone Number KU MAIN LAB [address] [place] [address] * IRON + BINDING CAPACITY + %SAT+ FERRITIN (07/04/2018 2:20 PM) Iron 49 (L) 50 - 185 MCG/DL KU MAIN LAB Iron Binding-TIBC 212 (L) 270 - 380 MCG/DL KU MAIN LAB % Saturation 23 (L) 28 - 42 % KU MAIN LAB Ferritin 383 (H) 30 - 300 NG/ML KU MAIN LAB Specimen Blood Performing Organization Address City/[facility] [address]/[facility] [place] Phone Number KU MAIN LAB [address] [place] [address] * POC GLUCOSE (07/04/2018 2:19 PM) Glucose, POC 137 (H) 70 - 100 MG/DL KU MAIN LAB Performing Organization Address City/[facility] [address]/[facility] [place] Phone Number KU MAIN LAB [address] [place] [address] * POC GLUCOSE (07/04/2018 1:42 PM) Glucose, POC 114 (H) 70 - 100 MG/DL KU MAIN LAB Performing Organization Address City/[facility] [address]/[facility] [place] Phone Number KU MAIN LAB [address] [place] [address] * POC GLUCOSE (07/04/2018 1:16 PM) Glucose, POC 55 (L) 70 - 100 MG/DL KU MAIN LAB Performing Organization Address City/[facility] [address]/Zipcode Phone Number KU MAIN LAB [address] [place] [address] * HEMOGLOBIN (07/04/2018 1:15 PM) Hemoglobin 9.4 (L) 13.5 - 16.5 GM/DL KU MAIN LAB Specimen Blood Performing Organization Address City/State/Zipcode Phone Number MAIN LAB [address] [place] [address] * POC GLUCOSE (07/04/2018 12:52 PM) Glucose, POC 66 (L) 70 - 100 MG/DL KU MAIN LAB Performing Organization Address City/State/Zipcode Phone Number MAIN LAB [address] [place] [address] * POC GLUCOSE (07/04/2018 12:19 PM) Glucose, POC 66 (L) 70 - 100 MG/DL KU MAIN LAB Performing Organization Address City/State/Zipcode Phone Number MAIN LAB [address] [place] [address] * POC GLUCOSE (07/04/2018 12:17 PM) Glucose, POC 59 (L) 70 - 100 MG/DL KU MAIN LAB Performing Organization Address City/State/Zipcode Phone Number MAIN LAB [address] [place] [address] * POC GLUCOSE (07/04/2018 10:28 AM) Glucose, POC 144 (H) 70 - 100 MG/DL MAIN LAB Performing Organization Address City/[facility] [address]/Zipcode Phone Number MAIN LAB [address] [place] [address] * POC GLUCOSE (07/04/2018 9:31 AM) Glucose, POC 197 (H) 70 - 100 MG/DL MAIN LAB Performing Organization Address City/[facility] [address]/Zipcode Phone Number MAIN LAB [address] [place] [address] * POC GLUCOSE (07/04/2018 8:38 AM) Glucose, POC 184 (H) 70 - 100 MG/DL KU MAIN LAB Performing Organization Address City/[facility] [address]/Zipcode Phone Number MAIN LAB [address] [place] [address] * POC GLUCOSE (07/04/2018 7:29 AM) Glucose, POC 150 (H) 70 - 100 MG/DL KU MAIN LAB Performing Organization Address City/State/Zipcode Phone Number MAIN LAB [address] [place] [address] * POC GLUCOSE (07/04/2018 6:31 AM) Glucose, POC 119 (H) 70 - 100 MG/DL KU MAIN LAB Performing Organization Address [facility] [address]/[facility] [place] Phone Number MAIN LAB [address] [place] [address] * CBC (07/04/2018 5:47 AM) White Blood [...] MAIN LAB Specimen Blood Performing Organization Address City/[facility] [address]/[facility] [place] Phone Number MAIN LAB [address] [place] [address] * BASIC METABOLIC PANEL (07/04/2018 5:47 AM) [...] for questions. Specimen Blood Performing Organization Address City/[facility] [address]/Zipcode Phone Number MAIN LAB [address] [place] [address] * POC GLUCOSE (07/04/2018 5:36 AM) Glucose, POC 126 (H) 70 - 100 MG/DL KU MAIN LAB Performing Organization Address City/[facility] [address]/[facility] [place] Phone Number MAIN LAB [address] [place] [address] * POC GLUCOSE (07/04/2018 4:36 AM) Glucose, POC 94 70 - 100 MG/DL KU MAIN LAB Performing Organization Address City/[facility] [address]/[facility] [place] Phone Number MAIN LAB [address] [place] [address] * POC GLUCOSE (07/04/2018 3:24 AM) Glucose, POC 120 (H) 70 - 100 MG/DL MAIN LAB Performing Organization Address [facility] [address]/[facility] [place] Phone Number MAIN LAB [address] [place] [address] * POC GLUCOSE (07/04/2018 2:14 AM) Glucose, POC 112 (H) 70 - 100 MG/DL MAIN LAB Performing Organization Address [facility] [address]/[facility] [place] Phone Number MAIN LAB [address] [place] [address] * POC GLUCOSE (07/04/2018 12:37 AM) Glucose, POC 126 (H) 70 - 100 MG/DL MAIN LAB Performing Organization Address [facility] [address]/[facility] [place] Phone Number MAIN LAB [address] [place] [address] * BLOOD TYPE CONFIRMATION - ORDER ONLY IF REQUESTED BY LAB (07/04/2018 12:13 AM) ABO/RH(D) O NEG MAIN LAB Specimen Blood Performing Organization Address [facility] [address]/[facility] [place] Phone Number MAIN LAB [address] [place] [address] * TYPE & CROSSMATCH (07/03/2018 11:48 PM) Units Ordered 1 MAIN LAB Crossmatch Expires 07/06/2018 MAIN LAB Record Check 2ND TYPE REQUIRED MAIN LAB ABO/RH(D) O NEG MAIN LAB Antibody Screen NEG MAIN LAB Electronic Crossmatch YES MAIN LAB Unit Number [id number] MAIN LAB Blood Component Type RBC,CPDA,LEUKO REDUCED MAIN LAB Unit Division 0 MAIN LAB Status OF Unit TRANSFUSED MAIN LAB Transfusion Status OK TO TRANSFUSE MAIN LAB Crossmatch Result COMPATIBLE,ELECTRONIC MAIN LAB Specimen Blood Performing Organization Address City/State/Zipcode Phone Number MAIN LAB [address] [place] [address] * POC GLUCOSE (07/03/2018 11:21 PM) Glucose, POC 197 (H) 70 - 100 MG/DL KU MAIN LAB Performing Organization Address City/State/Zipcode Phone Number MAIN LAB [address] [place] [address] * POC GLUCOSE (07/03/2018 10:12 PM) Glucose, POC 218 (H) 70 - 100 MG/DL MAIN LAB Performing Organization Address City/[facility] [address]/Zipcode Phone Number MAIN LAB [address] [place] [address] * HEMOGLOBIN (07/03/2018 10:02 PM) Hemoglobin 6.8 (L) 13.5 - 16.5 GM/DL MAIN LAB Specimen Blood Performing Organization Address City/[facility] [address]/Zipcode Phone Number MAIN LAB [address] [place] [address] * POC GLUCOSE (07/03/2018 9:19 PM) Glucose, POC 187 (H) 70 - 100 MG/DL MAIN LAB Performing Organization Address City/[facility] [address]/Zipcode Phone Number MAIN LAB [address] [place] [address] * POC GLUCOSE (07/03/2018 7:40 PM) Glucose, POC 113 (H) 70 - 100 MG/DL MAIN LAB Performing Organization Address City/[facility] [address]/Zipcode Phone Number MAIN LAB [address] [place] [address] * POC GLUCOSE (07/03/2018 6:37 PM) Glucose, POC 143 (H) 70 - 100 MG/DL KU MAIN LAB Performing Organization Address City/[facility] [address]/Zipcode Phone Number MAIN LAB [address] [place] [address] * POC GLUCOSE (07/03/2018 5:31 PM) Glucose, POC 157 (H) 70 - 100 MG/DL KU MAIN LAB Performing Organization Address City/State/Zipcode Phone Number KU MAIN LAB [address] [place] [address] * POC GLUCOSE (07/03/2018 4:35 PM) Glucose, POC 190 (H) 70 - 100 MG/DL KU MAIN LAB Performing Organization Address City/State/Zipcode Phone Number KU MAIN LAB [address] [place] [address] * POC GLUCOSE (07/03/2018 3:36 PM) Glucose, POC 190 (H) 70 - 100 MG/DL KU MAIN LAB Performing Organization Address City/State/Zipcode Phone Number MAIN LAB [address] [place] [address] * HEMOGLOBIN (07/03/2018 3:25 PM) Hemoglobin 7.2 (L) 13.5 - 16.5 GM/DL KU MAIN LAB Specimen Blood Performing Organization Address City/State/Zipcode Phone Number MAIN LAB [address] [place] [address] * POC GLUCOSE (07/03/2018 2:22 PM) Glucose, POC 176 (H) 70 - 100 MG/DL KU MAIN LAB Performing Organization Address City/[facility] [address]/Zipcode Phone Number MAIN LAB [address] [place] [address] * POC GLUCOSE (07/03/2018 1:24 PM) Glucose, POC 254 (H) 70 - 100 MG/DL KU MAIN LAB Performing Organization Address City/State/Zipcode Phone Number KU MAIN LAB [address] [place] [address] * POC GLUCOSE (07/03/2018 12:20 PM) Glucose, POC 307 (H) 70 - 100 MG/DL KU MAIN LAB Performing Organization Address City/State/Zipcode Phone Number MAIN LAB [address] [place] [address] * POC GLUCOSE (07/03/2018 10:45 AM) Glucose, POC 268 (H) 70 - 100 MG/DL KU MAIN LAB Performing Organization Address City/State/Zipcode Phone Number MAIN LAB [address] [place] [address] * POC GLUCOSE (07/03/2018 9:22 AM) Glucose, POC 233 (H) 70 - 100 MG/DL KU MAIN LAB Performing Organization Address City/State/Zipcode Phone Number MAIN LAB [address] [place] [address] * SWALLOW MOTION SERIES (07/03/2018 8:59 AM) [...] on 07/03/2018 9:08 AM. Performing Organization Address [facility] [address]/[facility] [place] Phone Number RAD RESULTS * POC GLUCOSE (07/03/2018 8:04 AM) Glucose, POC 156 (H) 70 - 100 MG/DL [employer] MAIN LAB Performing Organization Address [facility] Phone Number [employer] MAIN LAB [address] [place] [address] * ECG-SCAN (07/03/2018 7:35 AM) Narrative Performed At Ordered by an unspecified provider. * POC GLUCOSE (07/03/2018 5:03 AM) Glucose, POC 109 (H) 70 - 100 MG/DL [employer] MAIN LAB Performing Organization Address [facility] Phone Number [employer] MAIN LAB [address] [place] [address] * CBC (07/03/2018 4:11 AM) White Blood Cells 13.4 (H) 4.5 - 11.0 K/UL MAIN LAB RBC 2.57 (L) 4.4 - 5.5 M/UL MAIN LAB Hemoglobin 7.6 (L) 13.5 - 16.5 GM/DL KU MAIN LAB Hematocrit 22.7 (L) 40 - 50 % [employer] MAIN LAB MCV 88.3 80 - 100 FL [employer] MAIN LAB MCH 29.5 26 - 34 PG MAIN LAB MCHC 33.4 32.0 - 36.0 G/DL MAIN LAB RDW 14.1 11 - 15 % KU MAIN LAB Platelet Count 395 150 - 400 K/UL [employer] MAIN LAB MPV 8.7 7 - 11 FL [employer] MAIN LAB Specimen Blood Performing Organization Address [facility] Phone Number [employer] MAIN LAB [address] [place] [address] * BASIC METABOLIC PANEL (07/03/2018 4:11 AM) [...] Address City/State/Zipcode Phone Number MAIN LAB [address] [place] [address] * POC GLUCOSE (07/03/2018 3:57 AM) Glucose, POC 132 (H) 70 - 100 MG/DL KU MAIN LAB Performing Organization Address City/[facility] [address]/Zipcode Phone Number MAIN LAB [address] [place] [address] * POC GLUCOSE (07/03/2018 3:06 AM) Glucose, POC 145 (H) 70 - 100 MG/DL [facility] Performing Organization Address City/State/Zipcode Phone Number MAIN LAB [address] [place] [address] * POC GLUCOSE (07/03/2018 2:01 AM) Glucose, POC 154 (H) 70 - 100 MG/DL [facility] Performing Organization Address City/State/Zipcode Phone Number MAIN LAB [address] [place] [address] * POC GLUCOSE (07/03/2018 1:05 AM) Glucose, POC 112 (H) 70 - 100 MG/DL [facility] Performing Organization Address City/State/Zipcode Phone Number MAIN LAB [address] [place] [address] * POC GLUCOSE (07/03/2018 12:35 AM) Glucose, POC 98 70 - 100 MG/DL [facility] Performing Organization Address City/State/Zipcode Phone Number MAIN LAB [address] [place] [address] * POC GLUCOSE (07/03/2018 12:13 AM) Glucose, POC 78 70 - 100 MG/DL [facility] Performing Organization Address City/State/Zipcode Phone Number MAIN LAB [address] [place] [address] * POC GLUCOSE (07/02/2018 11:03 PM) Glucose, POC 102 (H) 70 - 100 MG/DL [facility] Performing Organization Address City/State/Zipcode Phone Number MAIN LAB [address] [place] [address] * POC GLUCOSE (07/02/2018 9:56 PM) Glucose, POC 184 (H) 70 - 100 MG/DL [facility] Performing Organization Address City/State/Zipcode Phone Number MAIN LAB [address] [place] [address] * POC GLUCOSE (07/02/2018 9:36 PM) Glucose, POC 49 (LL) 70 - 100 MG/DL [facility] Performing Organization Address City/State/Zipcode Phone Number MAIN LAB [address] [place] [address] * POC GLUCOSE (07/02/2018 9:32 PM) Glucose, POC 50 (L) 70 - 100 MG/DL [facility] Performing Organization Address City/State/Zipcode Phone Number MAIN LAB [address] [place] [address] * POC GLUCOSE (07/02/2018 9:13 PM) Glucose, POC 59 (L) 70 - 100 MG/DL [facility] Performing Organization Address City/State/Zipcode Phone Number MAIN LAB [address] [place] [address] * POC GLUCOSE (07/02/2018 9:11 PM) Glucose, POC 58 (L) 70 - 100 MG/DL [facility] Performing Organization Address City/State/Zipcode Phone Number MAIN LAB [address] [place] [address] * POC GLUCOSE (07/02/2018 7:58 PM) Glucose, POC 121 (H) 70 - 100 MG/DL [facility] Performing Organization Address City/State/Zipcode Phone Number MAIN LAB [address] [place] [address] * POC GLUCOSE (07/02/2018 6:56 PM) Glucose, POC 162 (H) 70 - 100 MG/DL [facility] Performing Organization Address City/[facility] [address]/Zipcode Phone Number MAIN LAB [address] [place] [address] * POC GLUCOSE (07/02/2018 6:07 PM) Glucose, POC 180 (H) 70 - 100 MG/DL [facility] Performing Organization Address City/[facility] [address]/[facility] [place] Phone Number [facility] [address] [place] [address] * POC GLUCOSE (07/02/2018 4:52 PM) Glucose, POC 195 (H) 70 - 100 MG/DL MAIN LAB Performing Organization Address City/[facility] [address]/[facility] [place] Phone Number MAIN LAB [address] [place] [address] * POC GLUCOSE (07/02/2018 4:24 PM) Glucose, POC 204 (H) 70 - 100 MG/DL [facility] Performing Organization Address City/[facility] [address]/Zipcode Phone Number MAIN LAB [address] [place] [address] * POC GLUCOSE (07/02/2018 3:09 PM) Glucose, POC 212 (H) 70 - 100 MG/DL [facility] Performing Organization Address City/[facility] [address]/Zipcode Phone Number MAIN LAB [address] [place] [address] * POC GLUCOSE (07/02/2018 2:13 PM) Glucose, POC 204 (H) 70 - 100 MG/DL [facility] Performing Organization Address City/State/Zipcode Phone Number [facility] [address] [place] [address] * POC GLUCOSE (07/02/2018 12:59 PM) Glucose, POC 235 (H) 70 - 100 MG/DL [facility] Performing Organization Address City/[facility] [address]/[facility] [place] Phone Number [facility] [address] [place] [address] * POC GLUCOSE (07/02/2018 12:02 PM) Glucose, POC 244 (H) 70 - 100 MG/DL [facility] Performing Organization Address [facility] [place] Phone Number MAIN LAB [address] [place] [address] * POC GLUCOSE (07/02/2018 11:10 AM) Glucose, POC 229 (H) 70 - 100 MG/DL [facility] Performing Organization Address [facility] Phone Number MAIN LAB [address] [place] [address] * ABDOMEN AP ONLY (07/02/2018 10:20 AM) [...] on 07/02/2018 11:09 AM. Performing Organization Address City/[facility] [address]/Zipcode Phone Number RAD RESULTS * POC GLUCOSE (07/02/2018 10:14 AM) Glucose, POC 212 (H) 70 - 100 MG/DL [facility] Performing Organization Address City/[facility] [address]/[facility] [place] Phone Number MAIN LAB [address] [place] [address] * POC GLUCOSE (07/02/2018 9:22 AM) Glucose, POC 209 (H) 70 - 100 MG/DL MAIN LAB Performing Organization Address City/[facility] [address]/[facility] [place] Phone Number MAIN LAB [address] [place] [address] * POC GLUCOSE (07/02/2018 8:04 AM) Glucose, POC 186 (H) 70 - 100 MG/DL MAIN LAB Performing Organization Address City/[facility] [address]/[facility] [place] Phone Number MAIN LAB [address] [place] [address] * POC GLUCOSE (07/02/2018 6:05 AM) Glucose, POC 142 (H) 70 - 100 MG/DL MAIN LAB Performing Organization Address [facility] Phone Number MAIN LAB [address] [place] [address] * POC GLUCOSE (07/02/2018 5:00 AM) Glucose, POC 125 (H) 70 - 100 MG/DL MAIN LAB Performing Organization Address City/[facility] [place] Phone Number MAIN LAB [address] [place] [address] * PHOSPHORUS (07/02/2018 4:15 AM) Phosphorus 2.6 2.0 - 4.0 MG/DL MAIN LAB Specimen Blood Performing Organization Address City/[facility] [place] Phone Number MAIN LAB [address] [place] [address] * MAGNESIUM (07/02/2018 4:15 AM) Magnesium 1.9 1.6 - 2.6 mg/dL MAIN LAB Specimen Blood Performing Organization Address City/State/Zipcode Phone Number MAIN LAB [address] [place] [address] * IONIZED CALCIUM (07/02/2018 4:15 AM) Ionized Calcium 1.14 1.0 - 1.3 MMOL/L MAIN LAB Specimen Blood Performing Organization Address City/[facility] [address]/[facility] [place] Phone Number MAIN LAB [address] [place] [address] * CULTURE-BLOOD W/SENSITIVITY (07/02/2018 4:15 AM) Battery Name BLOOD CULTURE MAIN LAB Specimen Description BLOOD MAIN LAB RIGHT RADIAL ARTERIAL Special Requests NONE MAIN LAB Culture NO GROWTH 5 DAYS [facility] Report Status FINAL [facility] 07/08/2018 Specimen Blood Performing Organization Address City/[facility] [address]/Zipcode Phone Number MAIN LAB [address] [place] [address] * CBC (07/02/2018 4:15 AM) White Blood Cells 10.3 4.5 - 11.0 K/[facility] MAIN LAB RBC 3.17 (L) 4.4 - 5.5 M/UL [facility] Hemoglobin 8.8 (L) 13.5 - [...] LAB Specimen Blood Performing Organization Address [facility]/Zipcode Phone Number MAIN LAB [address] [place] [address] * BASIC METABOLIC PANEL (07/02/2018 4:15 AM) [...] City/State/Zipcode Phone Number [facility] [address] [place] [address] * POC GLUCOSE (07/02/2018 4:00 AM) Glucose, POC 129 (H) 70 - 100 MG/DL [facility] Performing Organization Address City/[facility]/Zipcode Phone Number [facility] [address] [place] [address] * POC GLUCOSE (07/02/2018 3:06 AM) Glucose, POC 116 (H) 70 - 100 MG/DL [facility] Performing Organization Address City/[facility] [address]/Zipcode Phone Number [facility] [address] [place] [address] * POC GLUCOSE (07/02/2018 2:02 AM) Glucose, POC 113 (H) 70 - 100 MG/DL [facility] Performing Organization Address City/[facility]/Zipcode Phone Number [facility] [address] [place] [address] * POC GLUCOSE (07/02/2018 1:12 AM) Glucose, POC 147 (H) 70 - 100 MG/DL [facility] Performing Organization Address City/[facility]/Zipcode Phone Number [facility] [address] [place] [address] * POC GLUCOSE (07/02/2018 12:05 AM) Glucose, POC 155 (H) 70 - 100 MG/DL [facility] Performing Organization Address City/[facility] [address]/Zipcode Phone Number [facility] [address] [place] [address] * POC GLUCOSE (07/01/2018 11:03 PM) Glucose, POC 128 (H) 70 - 100 MG/DL [facility] Performing Organization Address City/[facility] [address]/[facility] [place] Phone Number MAIN LAB [address] [place] [address] * POC GLUCOSE (07/01/2018 10:07 PM) Glucose, POC 208 (H) 70 - 100 MG/DL [facility] Performing Organization Address City/[facility] [place] Phone Number MAIN LAB [address] [place] [address] * POC GLUCOSE (07/01/2018 9:18 PM) Glucose, POC 184 (H) 70 - 100 MG/DL MAIN LAB Performing Organization Address [facility] [place] Phone Number MAIN LAB [address] [place] [address] * MRI HEAD WO CONTRAST (07/01/2018 9:10 [...] the posterior medial left temporal lobe. 3. Christianity of flow void within the right M1 [...] changes. Major vascular flow voids of the [place] and dural venous sinuses are preserved. There is quaker of flow void in the right M1 [...] changes. Major vascular flow voids of the [place] and dural venous sinuses are preserved. There is quaker of flow void in the right M1 [...] the posterior medial left temporal lobe. 3. Christianity of flow void within the right M1 segment, previously noted to be occluded. Performing Organization Address City/State/[facility] [place] Phone Number RAD RESULTS * POC GLUCOSE (07/01/2018 8:07 PM) Glucose, POC 184 (H) 70 - 100 MG/DL MAIN LAB Performing Organization Address City/State/[place] Phone Number MAIN LAB [address] [place] [address] * POC GLUCOSE (07/01/2018 6:59 PM) Glucose, POC 190 (H) 70 - 100 MG/DL [facility] Performing Organization Address [facility] [place] Phone Number [facility] [address] [place] [address] * POC GLUCOSE (07/01/2018 6:03 PM) Glucose, POC 169 (H) 70 - 100 MG/DL [facility] Performing Organization Address City/[facility] [place] Phone Number MAIN LAB [address] [place] [address] * POC GLUCOSE (07/01/2018 5:10 PM) Glucose, POC 154 (H) 70 - 100 MG/DL [facility] Performing Organization Address [facility] Phone Number MAIN LAB [address] [place] [address] * POC GLUCOSE (07/01/2018 4:04 PM) Glucose, POC 195 (H) 70 - 100 MG/DL MAIN LAB Performing Organization Address [facility] Phone Number MAIN LAB [address] [place] [address] * BLOOD GASES, ARTERIAL (07/01/2018 3:06 PM) pH-Arterial 7.34 (L) 7.35 - 7.45 MAIN LAB pCO2-Arterial 39 35 - 45 MMHG MAIN LAB pO2-Arterial 102 (H) 80 - 100 MMHG [facility] Base Deficit-Arterial 4.6 MMOL/L MAIN LAB O2 Sat-Arterial 97.5 95 - 99 % MAIN LAB [place]-ZWZ-Rdm 20.6 (L) 21 - 28 MMOL/L MAIN LAB Specimen Blood, arterial - Blood Performing Organization Address [facility] [place] Phone Number MAIN LAB [address] [place] [address] * POC GLUCOSE (07/01/2018 3:05 PM) Glucose, POC 195 (H) 70 - 100 MG/DL [facility] Performing Organization Address [facility] [place] Phone Number MAIN LAB [address] [place] [address] * CT HEAD WO CONTRAST (07/01/2018 2:46 [...] 72.37 % OTHER OUTSIDE LAB AV index (nez perce) 0.56 OTHER OUTSIDE LAB E/A ratio 1.35 OTHER OUTSIDE LAB E/E' ratio 10.67 OTHER OUTSIDE LAB CV ECHO PV [employer] Yasir RN OTHER OUTSIDE LAB LV mass 118.49 96 - 200 g OTHER OUTSIDE LAB RWT 0.36 <=0.42 OTHER OUTSIDE LAB TV rest pulmonary artery 22 mmHg OTHER OUTSIDE LAB pressure Right Heart Systolic TDI 0.110 m/s OTHER OUTSIDE LAB S' Cardiology Ultrasound Siemens [id number] OTHER OUTSIDE LAB Machine ECHO EF 60 [...] study available for comparison Performing Organization Address City/[facility] [address]/Zipcode Phone Number OTHER OUTSIDE LAB * CULTURE-BLOOD W/SENSITIVITY (07/01/2018 1:04 PM) Battery Name BLOOD CULTURE MAIN LAB Specimen Description BLOOD MAIN LAB LEFT ANTECUBITAL Special Requests NONE [facility] Culture NO GROWTH 5 DAYS [facility] Report Status FINAL [facility] 07/07/2018 Specimen Blood Performing Organization Address City/[facility] [address]/[facility] [place] Phone Number [facility] [address] [place] [address] * POC GLUCOSE (07/01/2018 1:02 PM) Glucose, POC 169 (H) 70 - 100 MG/DL [facility] Performing Organization Address [facility] [place] Phone Number [facility] [address] [place] [address] * UA REFLEX CULTURE LABEL (07/01/2018 12:53 PM) UA Reflex Culture LAB LABEL [facility] Specimen Urine Performing Organization Address City/[facility] [address]/[facility] [place] Phone Number MAIN LAB [address] [place] [address] * URINALYSIS MICROSCOPIC REFLEX TO CULTURE (07/01/2018 [...] LAB Specimen Urine Performing Organization Address [facility] [place] Phone Number MAIN LAB [address] [place] [address] * URINALYSIS DIPSTICK REFLEX TO CULTURE (07/01/2018 12:53 PM) Color,UA STRAW [facility] Turbidity,UA CLEAR CLEAR-CLEAR [facility] Specific [place]-Urine 1.018 1.003 - 1.035 [facility] pH,UA 5.0 5.0 - 8.0 [facility] Protein,UA NEG NEG-NEG [facility] Glucose,UA 2+ (A) NEG-NEG [facility] Ketones,UA NEG NEG-NEG [facility] Bilirubin,UA NEG NEG-NEG [facility] Blood,UA 1+ (A) NEG-NEG MAIN LAB Urobilinogen,UA NORMAL NORM-NORMAL [facility] Nitrite,UA NEG NEG-NEG [facility] Leukocytes,UA NEG NEG-NEG [facility] Urine Ascorbic Acid, UA NEG NEG-NEG [facility] Specimen Urine Performing Organization Address [facility] Phone Number MAIN LAB [address] [place] [address] * LACTIC ACID(LACTATE) (07/01/2018 12:50 PM) Lactic Acid 1.5 0.5 - 2.0 MMOL/L [facility] Performing Organization Address [facility] [place] Phone Number [facility] [address] [place] [address] * BETA HYDROXYBUTYRATE (KETONES) (07/01/2018 12:50 PM) Beta Hydroxybutyrate 0.1 <0.3 MMOL/L [facility] Comment: Beta hydroxybutyrate (BOHB) is the most abundant ketone (78%), followed by acetoacetate (20%) and acetone (2%).Measurement BOHB is recommended to assess ketones in DKA. Expected BOHB Results for DKA: Initial presentation high/increasing During treatment decreasing Resolved decreasing/normal Performing Organization Address [facility] [place] Phone Number MAIN LAB [address] [place] [address] * LACTIC ACID (BG - RAPID LACTATE) (07/01/2018 12:50 PM) Lactic Acid,BG 1.5 0.5 - 2.0 MMOL/L MAIN LAB Specimen Blood Performing Organization Address City/[facility] [address]/Zipcode Phone Number [facility] [address] [place] [address] * CBC AND DIFF (07/01/2018 12:50 PM) White Blood Cells 9.5 4.5 - 11.0 K/UL [facility] MAIN LAB [...] MAIN LAB Specimen Blood Performing Organization Address City/[facility] [address]/Zipcode Phone Number MAIN LAB [address] [place] [address] * IONIZED CALCIUM (07/01/2018 12:50 PM) Ionized Calcium 1.14 1.0 - 1.3 MMOL/L MAIN LAB Specimen Blood Performing Organization Address City/[facility] [address]/Zipcode Phone Number MAIN LAB [address] [place] [address] * PHOSPHORUS (07/01/2018 12:50 PM) Phosphorus 2.6 2.0 - 4.0 MG/DL MAIN LAB Specimen Blood Performing Organization Address [facility] [place] Phone Number [facility] [address] [place] [address] * MAGNESIUM (07/01/2018 12:50 PM) Magnesium 2.0 1.6 - 2.6 mg/dL [facility] Specimen Blood Performing Organization Address [facility] [place] Phone Number [facility] [address] [place] [address] * LIPID PROFILE (07/01/2018 12:50 PM) Cholesterol [...] 130 mg/dL. Specimen Blood Performing Organization Address [facility] [place] Phone Number [facility] [address] [place] [address] * COMPREHENSIVE METABOLIC PANEL (07/01/2018 12:50 PM) [...] Address City/State/Zipcode Phone Number MAIN LAB [address] [place] [address] * HEMOGLOBIN A1C (07/01/2018 12:50 PM) Hemoglobin A1C 17.4 (H) 4.0 - 6.0 % [facility] Comment: The ADA recommends that most patients with type 1 and type 2 diabetes maintain an A1c level <7%. Specimen Blood Performing Organization Address City/[facility] [address]/Zipcode Phone Number [facility] [address] [place] [address] * IR ARTERIOGRAM NEURO (07/01/2018 12:29 PM) [...] Fentanyl 25 mcg Contrast - 100 cc [id number] Total mGy - 421 Anesthesia:conscious sedation Consent [...] the sheath was advanced over a 5 Georgian 125 cm Vert catheter over a 180 cm 0.035 Broxton wire over the aortic arch and into [...] therefore, hemostasis was achieved using an 8 Georgian Angioseal closure device followed by manual pressure [...] Fentanyl 25 mcg Contrast - 100 cc [id number] Total mGy - 421 Anesthesia: conscious sedation [...] the sheath was advanced over a 5 Georgian 125 cm Vert catheter over a 180 cm 0.035 Broxton wire over the aortic arch and into [...] therefore, hemostasis was achieved using an 8 Georgian Angioseal closure device followed by manual pressure [...] 11:51 AM on 07/01/2018 by the residential child care counselor in consultation with TALIA BOSTON M.D.. [...] 11:51 AM on 07/01 by the residential child care counselor in consultation with TALIA BOSTON M.D.. [...] 11:51 AM on 07/01/2018 by the residential child care counselor in consultation with TALIA BOSTON M.D.. [...] 11:51 AM on 07/01 by the residential child care counselor in consultation with TALIA BOSTON M.D.. [...] 11:51 AM on 07/01/2018 by the residential child care counselor in consultation with TALIA BOSTON M.D.. [...] 11:51 AM on 07/01 by the residential child care counselor in consultation with TALIA BOSTON M.D.. [...] complication , not stated as uncontrolled Anemia of chronic disease Anemia of other chronic disease Agitation Other and unspecified special symptom or syndrome, not elsewhere classified Diabetic ketoacidosis without coma (HCC) Type II or unspecified type diabetes mellitus with ketoacidosis, not stated as uncontrolled Leukocytosis Leukocytosis, unspecified Normocytic anemia Anemia, unspecified Overweight (BMI 25.0-29.9) Overweight Urinary retention Retention of urine, unspecified Sepsis (HCC) Unspecified septicemia Proliferative diabetic retinopathy(362.02) Proliferative diabetic retinopathy Urinary retention with incomplete bladder emptying Incomplete bladder emptying Severe sepsis (HCC) Unspecified septicemia Admitting Diagnoses Diagnosis Stroke Stroke (HCC) Unspecified [...] 10 mg, Oral, DAILY, First dose on Fri 09:51 CDT 07/09/18 at 0900, Until Discontinued, [...] Oral, ONCE, 1 dose, 07/03/18 at 0915, GI Procedure Area Only barium sulfate 40 % (VARIBAR NECTAR) Given 07/03/2018 10 mL oral suspension 10 mL 08:50 CDT 10 mL, Oral, ONCE, 1 dose, 07/03/18 at 0915, GI Procedure Area Only barium sulfate 40 % (VARIBAR PUDDING) Given 07/03/2018 10 mL oral paste 10 mL 08:50 CDT 10 mL, Oral, ONCE, 1 dose, 07/03/18 at 0915, GI Procedure Area Only barium [...] 0649, Until Padma 07/09/18 at 1756, Constipation NC, Hold for loose stools cefTRIAXone (ROCEPHIN) IVP [...] mcg injection 12:18 CDT INTRA-PROCEDURE MED, Starting Fri07/01/18 at 1218, Until Discontinued flumazenil (ROMAZICON) injection [...] mg 0.5 mg, Intravenous, ONCE, 1 dose, Fri 15:29 CDT 07/01/18 at 1530 heparin (porcine) [...] 15:11 CDT Starting Fri07/01/18 at 1256, Until Fri07/01/18 at 2336, Systolic Blood Pressure..., SBP >140 [...] 1 unit. -POC glucose 221-260mg/dL at , , administer 3 units insulin, at 21, [...] 5 units. -POC glucose >400mg/dL at , , administer 7 units insulin, at 21, [...] TIMES DAILY AFTER MEALS, First dose on Fri07/06/18 at 1900, Until Discontinued, - Post Meal [...] 28 Units, Subcutaneous, DAILY, First dose on 07/07/18 at 0900, Until Discontinued, Continue if NPO. [...] 1-32 mL/hr, Intravenous, TITRATE DIRECTED , Starting Fri07/01/18 at 1430, Until 07/04/18 at 1100, In [...] recheck BG every 1 hr; when > mc=515 mg/dL, restart insulin infusion at 50% of most recent rate 2. If BG 50-74 mg/dL: a. HOLD INSULIN INFUSION and administer amp (12.5 g) D50 IV; recheck BG every 15 minutes until > or=90 mg/dL. b. Then, recheck BG every 1 hr; when > zs=253 mg/dL, restart insulin infusion at 50% of most recent rate. 3. If BG 75-99 mg/dL: a. HOLD INSULIN INFUSION. Recheck BG every 15 minutes until BG reaches or remains > or=90 mg/dL. b. Then, recheck BG every 1 hr; when > oh=964 mg/dL, restart insulin infusion at 75% of [...] at 4PM is 120 mg/dL, the total change management administrator 2 hours is -30 mg/dL; however, the hourly change is -30 mg/dL 2 hours=-15 mg/dL/hr. BG 100-119 mg/dl BG 120-159 mg/dL BG 160-199 mg/dL BG > mm=555 INSTRUCTIONS++ BG increased by BG increased Increase infusion > 60 mg/dL By 2 x "Delta" & NOTE: This is a HIGH ALERT Medication. Dose/Rate Change 07/04/2018 2.1 Units/hr 2.1 mL/hr 09:33 CDT Dose/Rate Change 07/04/2018 1.6 Units/hr 1.6 mL/hr 10:31 CDT iopamidol 300 (ISOVUE-300) injection 100 Given 07/01/2018 100 mL mL 12:45 CDT 100 mL, Intra-arterial, ONCE, 1 dose, 07/01/18 at 1245, NOTE: This is a HIGH ALERT Medication. iopamidol 370 (ISOVUE-370) injection 100 Given 07/01/2018 100 mL mL 12:00 CDT 100 mL, Intravenous, ONCE, 1 dose, 07/01/18 at 1200, NOTE: This is a HIGH ALERT Medication. labetalol (NORMODYNE) injection 10 mg Given 07/02/2018 10 mg 10 mg, Intravenous, EVERY 6 HOURS PRN, 07:00 CDT Starting Fri07/02/18 at 0644, Until Fri07/09/18 at 1151, Systolic Blood Pressure..., >140 mmHg, [...] Hours, NEEDED, Starting Fri07/01/18 at 1253, Until Fri07/02/18 at 1129, Other..., magnesium replacement (see Admin [...] 07/06/18 at 2100, Until Discontinued Given 07/07/2018 10 [...] (1 packet), Oral, DAILY, First dose on 07/05/18 at 1230, Until Discontinued, 8.5 GRAMS=0.5 PACKET 17 GRAMS=1 PACKET 34 GRAMS=2 PACKETS Given 07/06/2018 17 g 08:34 CDT potassium chloride oral solution 20 mEq Given 07/06/2018 20 mEq 20 mEq, Oral, ONCE, 1 dose, 07/06/18 09:25 CDT at 0845 potassium chloride SR (K-DUR) tablet 30 Given 07/09/2018 30 mEq mEq 09:56 CDT 30 mEq, Oral, ONCE, 1 dose, [facility] 07/09/18 at 0730, Do NOT break or crush [...] CDT CONTINUOUS, Starting Fri07/01/18 at 1300, Until Fri07/02/18 at 1012 Given - New Bag 07/02/2018 75 mL/hr 04:58 CDT sodium chloride PF 0.9% injection 50 mL Given 07/01/2018 50 mL 50 mL, Intravenous, ONCE, 1 dose, Fri 12:00 CDT 07/01/18 at 1200, DO NOT SEND this medication unless it is requested. This med is usually available in floor stock. in this encounter
--- OUTSIDE RECORDS SUMMARY | 2018-08-01 14:51 | XMS REPORT | Encounter Summary ---
Author Author [facility] Organization [facility] Address Unknown Phone Unavailable Care Team Providers Care Head Of English Name Role Phone Damien Caceres MD Unavailable eMlo Adame MD Unavailable Unavailable Alvarez Ozuna NP PCP Hilary Davenport RN Unavailable Unavailable Encounter Details Date Type Department Care Team Description 07/08/2018 Procedure Pass Gastrointenstinal Endoscopy [address] [facility] [address] [facility] [place] [address] Social History Tobacco Use Types Packs/Day Years [...]
--- OUTSIDE RECORDS SUMMARY | 2018-08-01 14:51 | XMS REPORT | Encounter Summary ---
Author Author [facility] Organization [facility] Address Unknown Phone Unavailable Care Team Providers Care Wallpaperer Helper Name Role Phone Damien Caceres MD Unavailable [...] [address] [place] [address] [place] [address] [phone] Anesthesia Record Procedure Name Responsible Anesthesia Start [...] RT; Eye; Surgical Incision 05/11/14 0000 by [place], (NOT for MAXINE Kim Pressure Injuries) Indwelling [...] 07/05/18 1800 by Jayleen, (NOT for MAXINE Hfufman Pressure Injuries) Puncture 07/01/18; 1230; Right; Femoral; [...] due to out of window), transferred to [facility] and 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 Comments: (Patient not participating in health history/consent. [...]
--- OUTSIDE RECORDS SUMMARY | 2018-08-01 14:55 | XMS REPORT | Encounter Summary ---
Author Author [facility] Organization [facility] Address Unknown Phone Unavailable Care Team Providers Care Police Justice Name Role Phone Damien Caceres MD Unavailable Mleo Adame MD Unavailable Unavailable Alvarez Ozuna NP PCP Hilary Davenport RN Unavailable Unavailable Encounter Details Date Type Department Care Team Description 07/01/2018 Procedure Pass [address] [place] [address] Social History Tobacco Use Types Packs/Day Years Used Date Former Smoker Cigars 2 20 Quit: 10/20/2011 Smokeless Tobacco: Never Used Alcohol Use Drinks/Week oz/Week Comments No Sex Assigned at Date Recorded Not on file as of this encounter Plan of Treatment Not on fileas of this encounter Visit Diagnoses Not on filein this encounter
--- OUTSIDE RECORDS SUMMARY | 2018-08-01 14:55 | XMS REPORT | Encounter Summary ---
Author Author [facility] Organization [facility] Address Unknown Phone Unavailable Care Team Providers Care Cylinder Steamer Name Role Phone Damien Caceres MD Unavailable Melo Adame MD Unavailable Unavailable Alvarez Ozuna NP PCP Hilary Davenport RN Unavailable Unavailable Encounter Details Date Type Department Care Team Description 07/01/2018 Procedure Pass CA[address] [place] [address] Social History Tobacco Use Types Packs/Day Years Used Date Former Smoker Cigars 2 20 Quit: 10/20/2011 Smokeless Tobacco: Never Used Alcohol Use Drinks/Week oz/Week Comments No Sex Assigned at Date Recorded Not on file as of this encounter Plan of Treatment Not on fileas of this encounter Visit Diagnoses Not on filein this encounter
--- OUTSIDE RECORDS SUMMARY | 2018-08-01 14:55 | XMS REPORT | Encounter Summary ---
Author Author [facility] Organization [facility] Address Unknown Phone Unavailable Care Team Providers Care Straw Hat Plunger Operator Name Role Phone Damien Caceres MD Unavailable Melo Adame MD Unavailable Unavailable Lulu Ozuna NP PCP Hilary Davenport RN Unavailable Unavailable Reason for Visit * Auth/Cert Status Reason Specialty Diagnoses / Referred By Referred To Procedures Contact Contact Diagnoses Stroke (HCC) Stroke Encounter Details Date Type Department Care Team Description 07/08/2018 Surgery Gastrointenstinal Clara Carolina MD ESOPHAGOGASTRODUODENOSCOP Endoscopy [address] [place] [address] [place] [address] [phone] Social History Tobacco Use Types Packs/Day Years [...] as of this encounter Discharge Summaries * Bouchra DO James - 07/09/2018 3:56 PM CDT Formatting of [...] s/p suprapubic catheter that was admitted at [facility] for urosepsis, DKA, A fib with RVR requiring cardizem ggt that was transferred for concerns for stroke. Admitted on 06/28 to [facility] with week history of cough, SOB. Found to have UTI with urosepsis and DKA with CO2 of 8, BG in 600s. Admitted to the ICU at [facility]. Started on CTX and Insulin ggt. [...] language) 2=neither correct 2 1c. 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, concrete saw operator and release non-paretic hand (other 1 step [...] tPA given unclear window. Was transferred to [facility] for evaluation. Was given ativan 2mg [...] stroke on 07/15. ECHO showed no thrombus. DECORATIVE ENGRAVER was following and pt graduated to regular [...] hospital course Consults: Cardiology, Endocrinology, GI and PT/OT/DECORATIVE ENGRAVER, rehab, urology Patient Disposition: Half-Way Facility Patient instructions/medications: AMB REFERRAL TO GASTROENTEROLOGY [...] even if the signs go away, call 9-1-1 IMMEDIATELY. Check the time so you will [...] home, please feel free to contact the Reservationist at [phone]. Your last blood pressure was BP: 171/73, [...] Report These Signs and Symptoms STROKE Call [phone] for the following symptoms: *Sudden numbness or weakness of the face, arm or leg, especially on one side of the body. *Sudden confusion, trouble speaking or understanding. *Sudden trouble seeing in one or both eyes. *Sudden trouble walking, dizziness, loss of balance or coordination. *Sudden, severe headache with no known cause. Return Appointment For Neurology scheduling contact [phone] For Neurosurgery appointments call [phone] Questions About Your Stay STANDARD For questions or concerns regarding your hospital stay: -DURING BUSINESS HOURS (8:00 AM - 4:30 PM): Call [phone] and ask to be transferred to your discharge attending physician. -AFTER BUSINESS HOURS (4:30 PM - 8:00 AM, on weekends, or holidays): Call [phone] and ask the portable router operator to page the on-call doctor for the discharge attending physician. Discharging attending physician: KEYSHAWN GOMEZ [[id number]] Complete if patient is going to a Half-Way Facility I certify that the patient requires skilled care Yes The patient's stay is expected to be less than 30 days Yes I will be in charge of patient in long-term No Cardiac Diet Limiting unhealthy fats and [...] home, you can call a dietitian at [phone]. Modified Liquids Your fluids should be thickened to a consistency of nectar. This is as thick as a milkshake or tomato juice. If you have questions about your diet after you go home, you can call a dietitian at [phone]. Current Discharge Medication List START taking these [...] CDT Return Patient with Lulu Perry MD [facility] ([facility]) [facility] [address] [facility] [id number] Additional appointment instructions: Please follow up with your PCP for repeat labs, monitoring your blood pressure, and monitoring your blood glucose Please follow up with the chip mixing machine operator at [facility] for follow up visit. Please follow up [...] blood glucose Please follow up with the chip mixing machine operator at [facility] for follow up visit. Please follow up [...] - 07/09/2018 2:57 PM CDT Phoned [facility] [phone] and gave report to Perla GOODMAN to receive patient. Informed her that patient to transport at 13:00. By 15:00 no transport arrived, phoned facility above and it was reported that ride was on the way. FSBS=69 checked prior to transport. Reported to business consultant for Neurology, juice x 2 given FSBS rechecked=87. Patient left unit via wheelchair and compactor driver who was given chart for transport. [...] Range Color,UA STRAW Turbidity,UA CLEAR CLEAR-CLEAR Specific [place]-Urine 1.005 1.003 - 1.035 pH,UA 8.0 5.0 [...] DKA resolved -A1c 17.4 on 07/01/2018 uncontrolled -PERSONAL CARE WORKER regimen: levemir 40 units QHS, Novolog [...] will follow up with local endocrinology in [facility] Subjective Valdez Anthony is a 57 y.o. [...] Range Color,UA STRAW Turbidity,UA CLEAR CLEAR-CLEAR Specific [place]-Urine 1.005 1.003 - 1.035 pH,UA 8.0 5.0 [...] Intake: Improving, Marginally Adequate Estimated Calorie Needs: 8078-1265 (25-28 kcal/kg desired wt) Estimated Protein Needs: 85-100 (1.2-1.4 g/kg desired wt) Oral Diet Order: Diabetic 4943-0766 Kcal/day (60 g Carb/meal, 30 g Carb/HS snack ), [place] Thick Liquids Comments: 57 y.o. male with new onset Atrial Fibrillation with RVR, HTN, HLD, T2DM, Diabetic Retinopathy, OD Blindness, Neovascular Glaucoma, Prostate Cancer s/p prostatectomy, Urinary Retention s/p suprapubic catheter that was admitted at [facility] for urosepsis, DKA, A fib with [...] and underwent via video- swallow eval with DECORATIVE ENGRAVER findings of moderate oropharyngeal dysphagia and baseline cognitive deficits. DECORATIVE ENGRAVER working with pt and diet has advanced from nectar thick full liquids to 60g/meal consistent carb diet with nectar thick fluids. Per had 100% omelet for breakfast today (refused per RN) and sandwich ordered by for lunch. No current wt to assess; unable to actually see pt today as he was bundled in his blankets. Pt has orders for no sugar added Mcgrady breakfast with nectar thick milk at breakfast and per RN throughout day as needed. Followed up with call center who says orders not printing to meal ticket. denies need for diet education Recommendation: Encourage good meal intakes at least 3 times per day with adequate protein source each meal on 60g/meal consistne carb diet. Offer no sugar added Mcgrady Breakfast shakes made with nectar thick milk at breakfast and PRN. Intervention / Plan: Monitor po intake tolerance and adequacy monitor wt trends, labs, meds and GI status Nutrition Diagnosis: Altered GI function Etiology: swallowing and cognitive deficits Signs & Symptoms: DECORATIVE ENGRAVER findings and nectar thick liquids with diabetic diet Goals: Patient to consume >75% of meals/supplements Time Frame: Within 72 Hours Status: Met Patient to consume >85% of meals/supplements Time Frame: Throughout Stay Tata Daniels, MS,RD, LD, CNSC *[id number] * James Shook, - 07/09/2018 12:04 PM CDT Formatting of this note may be different from the original. Neurology Progress Note Today's Date: 07/09/2018 Name: Valdez Anthony Admission Date: 07/01/2018 LOS: 8 days Assessment/Plan: Principal Problem: Stroke (HCC) Active Problems: HTN (hypertension) Diabetes (HCC) Anemia Agitation Mr. Anthonyis a 57 y/oW M w/new onset AFib, HTN, HLD, T2DM, diabetic retinopathy, OD blindness, neovascular glaucoma, prostate cancer s/p prostatectomy who presents to [facility] as a transfer from [facility] for stroke. OSH course: Pt presented to [...] tPA given unclear window. Was transferred to [facility] for evaluation. Was given ativan 2mg [...] EF, LA size 3.5cm, no thrombus - DECORATIVE ENGRAVER following -> recommend regular diet w/ nectar [...] TIDAC >pt to f/u w/ endo @ [facility] outpt basis -> goal BS 100-140 fasting [...] -> develop stroke and was transferred to [facility] - Was placed on PO cardizem [...] - 07/05 Dispo: discharge today to [facility] @ 1300 Patient was seen and discussed [...] Range Color,UA STRAW Turbidity,UA CLEAR CLEAR-CLEAR Specific [place]-Urine 1.005 1.003 - 1.035 pH,UA 8.0 5.0 [...] (Last 24 hours): FSBS (Manual): 96 (07/08/18 7169) Glucose: (!) 118 (07/09/18 0547) POC Glucose [...] flexion or extension. Patient denied pain at site with reassessment during pain medication administration. [...] prostate cancer s/p prostatectomy who presents to [facility] as a transfer from [facility] for stroke. OSH course: Pt presented [...] tPA given unclear window. Was transferred to [facility] for evaluation. Was given ativan 2mg [...] EF, LA size 3.5cm, no thrombus - DECORATIVE ENGRAVER following -> recommend regular diet w/ nectar [...] TIDAC >pt to f/u w/ endo @ [facility] outpt basis -> goal BS 100-140 fasting [...] -> develop stroke and was transferred to [facility] - Was placed on PO cardizem [...] fluids, replace lytes PRN, ada diet Ppx: [id number] Heparin Sq Q8, SCDs Code: Full Dispo: [...] (07/08/18 0553) POC Glucose (Download): 75 (07/08/18 9747) Radiology and Other Diagnostics Review: Pertinent radiology [...] superficial erosion noted in the upper esophagus, vane 2/2 ?NG tube trauma. Inlet patch noted. [...] pathology results. Roberto Dutta GI fellow Pager [phone] 07/08/2018 3:39 PM * Eloy Higgins RN [...] After 5:00 pm, holidays or weekends call [phone] and ask for the GI Doctor business consultant. * Barbi Deluna MD - 07/08/2018 12:10 [...] DKA resolved -A1c 17.4 on 07/01/2018 uncontrolled -PERSONAL CARE WORKER regimen: levemir 40 units QHS, Novolog [...] will follow up with local endocrinology in [facility] Subjective Valdez Anthony is a 57 y.o. male. Pt has been sleepy today. He is NPO for EGD/ colonoscopy and had hypoglycemia this am. ROS: no chest pain, SOB, N&V. Medications Scheduled Meds: [DEC Hold] amLODIPine (NORVASC) tablet 5 mg 5 mg Oral QDAY [DEC Hold] aspirin chewable tablet 81 mg 81 mg Oral QDAY [DEC Hold] atorvastatin (LIPITOR) tablet 40 mg 40 mg Oral QHS [DEC Hold] heparin (porcine) PF syringe 5,000 [...] capsule 10 mg 10 mg Oral QHS [DEC Hold] polyethylene glycol 3350 (MIRALAX) packet [...] (98.4 F) (07/08 1141) Pulse: 65 (07/08 114) Respirations: 16 PER MINUTE (07/08 1141) SpO2: 99 % (07/08 1141) O2 Delivery: None (Room Air) (09/19 1141) BP: (111-156)/(49-70) Temp: [36.7 C (98 [...] s/p suprapubic catheter that was admitted at [facility] for urosepsis, DKA, A fib with [...] PROGRESS NOTE Patient Name: Valdez Anthony Room/Bed: RQ6003/01 Admitting Diagnosis: Stroke Past Medical History: Diagnosis [...] occasionally in community. Prior Function Level Of Max: Independent with ADLs and functional transfers Lives [...] Bed mobility, Ambulation, Stairs Therapist: ERIC Whalen/Cesia [id number] Date: 07/08/2018 * Whit Guadarrama MS,CCC-DECORATIVE ENGRAVER - 07/08/2018 9:38 AM CDT SPEECH-LANGUAGE PATHOLOGY NO TREATMENT NOTE Chart reviewed and discussed in interdisciplinary rounds. Pt NPO for colonoscopy this date. DECORATIVE ENGRAVER will continue to follow. Therapist: Whit Guadarrama MS,CCC-DECORATIVE ENGRAVER [id number] Date: 07/08/2018 * Barbi Deluna MD - [...] DKA resolved -A1c 17.4 on 07/01/2018 uncontrolled -PERSONAL CARE WORKER regimen: levemir 40 units QHS, Novolog [...] will follow up with local endocrinology in [facility] Subjective Valdez Anthony is a 57 y.o. [...] prostate cancer s/p prostatectomy who presents to [facility] as a transfer from [facility] for stroke. OSH course: Pt presented [...] tPA given unclear window. Was transferred to [facility] for evaluation. Was given ativan 2mg [...] EF, LA size 3.5cm, no thrombus - DECORATIVE ENGRAVER following -> recommend regular diet w/ nectar [...] > pt to f/u w/ endo @ [facility] outpt basis -> goal BS 100-140 fasting [...] -> develop stroke and was transferred to [facility] - Was placed on PO cardizem [...] clear liquid/ada diet for procedure tomorrow Ppx: [id number] Heparin Sq Q8, SCDs Code: Full Dispo: [...] likely tomorrow Keyshawn Gomez MD * Irma Blakely, OT - 07/07/2018 11:30 AM CDT OCCUPATIONAL THERAPY Patient politely declined participation in occupational therapy session. Patient reports he is leaving for colonoscopy soon. OT will continue to follow and provide intervention as indicated. Irma Blakely, OTR/L [id number] * Whit Guadarrama MS,CCC-DECORATIVE ENGRAVER - 07/07/2018 9:50 AM CDT SPEECH-LANGUAGE PATHOLOGY NO TREATMENT NOTE Chart reviewed and discussed in interdisciplinary rounds. Pt NPO for colonoscopy this date. DECORATIVE ENGRAVER will continue to follow. Therapist: Whit Guadarrama MS,CCC-DECORATIVE ENGRAVER [id number] Date: 07/07/2018 * Shira Welch RN - [...] DKA resolved -A1c 17.4 on 07/01/2018 uncontrolled -PERSONAL CARE WORKER regimen: levemir 40 units QHS, Novolog [...] will follow up with local endocrinology in [facility] Subjective Valdez Anthony is a 57 y.o. [...] Color,UA YELLOW Turbidity,UA 2+ (A) CLEAR-CLEAR Specific [place]-Urine 1.017 1.003 - 1.035 pH,UA 5.0 5.0 [...] prostate cancer s/p prostatectomy who presents to [facility] as a transfer from [facility] for stroke. OSH course: Pt presented [...] tPA given unclear window. Was transferred to [facility] for evaluation. Was given ativan 2mg [...] EF, LA size 3.5cm, no thrombus - DECORATIVE ENGRAVER following -> recommend regular diet w/ nectar [...] > pt to f/u w/ endo @ [facility] outpt basis -> goal BS 100-140 fasting [...] fluids, replace lytes PRN, ADA diet Ppx: [id number] Heparin Sq Q8, SCDs Code: Full Dispo: [...] asked these questions and provided answers by DECORATIVE ENGRAVER) Speech: slurred speech w/ comprehension intact to [...] Color,UA YELLOW Turbidity,UA 2+ (A) CLEAR-CLEAR Specific [place]-Urine 1.017 1.003 - 1.035 pH,UA 5.0 5.0 [...] 0427) POC Glucose (Download): (!) 196 (07/06/18 2516) Radiology and Other Diagnostics Review: Pertinent radiology [...] due to out of window), transferred to [facility] and found to have R M1 [...] established Keyshawn Gomez MD * Whit Guadarrama MS,CCC-DECORATIVE ENGRAVER - 07/06/2018 12:14 PM CDT Formatting of [...] address dysphagia and cognitive communication concerns. Ongoing DECORATIVE ENGRAVER at next level of care. Consistent supervision [...] city, stating we are located at [facility]. Verbal Problem Solving Comments: Functional problem solving: [...] baseline to call for assistance if needed. [place] Cognitive Assessment (MoCA), Version 7.1 Subtest / [...] s/p suprapubic catheter that was admitted at [facility] for urosepsis, DKA, A fib with [...] spoon/cup and pureed /mech soft solids w/ DECORATIVE ENGRAVER only w/ less than 5% s/s of [...] from respiratory status changes. Therapist: Whit Guadarrama MS,[facility]-DECORATIVE ENGRAVER [id number] Date: 07/06/2018 * Aria Mccoy, PT - [...] s/p suprapubic catheter that was admitted at [facility] for urosepsis, DKA, A fib with [...] spoon/cup and pureed /mech soft solids w/ DECORATIVE ENGRAVER only w/ less than 5% s/s of [...] speech therapy post acute hospitalization. Therapist: Cesia Hatfield/CCC-DECORATIVE ENGRAVER (Pager [phone]; Voalte: [phone]) Date: 07/05/2018 * Darcy Goodrich MD - [...] s/p suprapubic catheter that was admitted at [facility] for urosepsis, DKA, A fib with [...] EF, LA size 3.5cm, no thrombus - DECORATIVE ENGRAVER to eval and treat - Video swallow [...] - Rocephin 07/01 - 07/05 FEN: - [place] thick PO fluids - Daily BMP - Full Liquid diet Ppx: - DVT: 5000u Heparin Sq Q8 and SCD's to BLE Dispo: - Likely inpatient setting early next week Patient was seen and discussed with Dr. Gutierrez today Chrissy Anthony is a 57 y.o. male. Patient [...] Darcy Goodrich MD Neurology PGY-4 Pager Neurology business consultant pager [phone] Associated attestation - Diego Gutierrez MD - [...] DKA resolved -A1c 17.4 on 07/01/2018 uncontrolled -PERSONAL CARE WORKER regimen: levemir 40 units QHS, Novolog [...] will follow up with local endocrinology in [facility] This is an individual we are following [...] s/p suprapubic catheter that was admitted at [facility] for urosepsis, DKA, A fib with [...] EF, LA size 3.5cm, no thrombus - DECORATIVE ENGRAVER to eval and treat - Video swallow [...] - Rocephin 07/01 - 07/05 FEN: - [place] thick PO fluids - Daily BMP - [...] 20,000 Units/ sodium bicarbonate 650 mg(#) PRN (Hash Slinger from Rx) Vital Signs: Last Filed in 24 hours Vital Signs: 24 hour Range BP: 126/56 (07/04 1422) Temp: 36.8 C (98.2 F) (07/04 1323) Pulse: 67 (07/04 1422) Respirations: 15 PER MINUTE (07/04 1323) SpO2: 97 % (07/04 1342) O2 Delivery: Nasal Cannula (07/04 134) BP: (107-165)/(46-85) Temp: [36.4 C (97.5 F)-37.4 [...] to be occluded. Munira Ortega DO Pager [phone] Associated attestation - Diego Gutierrez MD - [...] while, received endoscopy and colonoscopy at the [place] without a clear etiology of his anemia, also received another endoscopy at [facility] OSH again without a clear upper GI [...] DKA resolved -A1c 17.4 on 07/01/2018 uncontrolled -PERSONAL CARE WORKER regimen: levemir 40 units QHS, Novolog [...] will follow up with local endocrinology in [facility] Anemia This patient is having ongoing anemia [...] mL IV drip (std conc) Stopped (07/04/18 5039) PRN and Respiratory Meds:acetaminophen Q6H PRN, bisacodyl QDAY PRN, hydrALAZINE Q6H PRN, labetalol (NORMODYNE; TRANDATE) injection Q6H PRN, pancrelipase 20,000 Units/ sodium bicarbonate 650 mg(#) PRN (Hash Slinger from Rx) Objective Vital Signs: Last Filed [...] Screen NEG Electronic Crossmatch YES Unit Number [id number] Blood Component Type RBC,CPDA,LEUKO REDUCED Unit Division [...] suprapubic catheter that was admitted at [facility] for urosepsis, DKA, A fib with [...] EF, LA size 3.5cm, no thrombus - DECORATIVE ENGRAVER to eval and treat - Video swallow [...] - UA negative for UTI FEN: - [place] thick PO fluids - Daily BMP - [...] 20,000 Units/ sodium bicarbonate 650 mg(#) PRN (Hash Slinger from Rx) Vital Signs: Last Filed in [...] s/p suprapubic catheter that was admitted at [facility] for urosepsis, DKA, A fib with [...] body lift to chair for weekend, with community health nurse staff. Dicussed mobility recommendation with bedside RN. RECOMMENDATIONS: PT Discharge Recommendations PT Discharge Recommendations: Inpatient Setting Therapist: Dolores Sampson, PT Date: 07/03/2018 * Mary Grace Stanton OT - 07/03/2018 1:33 PM CDT Formatting of this note may be different from the original. OCCUPATIONAL THERAPY PROGRESS NOTE Patient Name: Valdez Anthony Room/Bed: [place] [address] Admitting Diagnosis: Stroke Past Medical History: Diagnosis [...] non verbal with left hemiplegia. Transferred to [facility]. R MCA stroke s/p [...] occasionally in community. Prior Function Level Of Max: Independent with ADLs and functional transfers Lives [...] s/p suprapubic catheter that was admitted at [facility] for urosepsis, DKA, A fib with [...] Fed Thin Liquid: 1 oz, Cup, Straw [place] Thick Liquid: Cup, Straw Honey Thick Liquid: [...] spoon/cup and pureed /mech soft solids w/ DECORATIVE ENGRAVER only w/ less than 5% s/s of aspiration. Goal : Pt will participate in cognitive-communication assessment given mod cues. Therapist: BIANCA Lamb L/CCC-DECORATIVE ENGRAVER Voalte: [phone] Date: 07/03/2018 * Alex Medel, RN - 07/03/2018 7:46 AM CDT 0750-Pt. Lying in bed. A&OX1. Pt. In mitts bilat, lap belt and wrist restraints. Pt. Recently pulled out his corpak. Tube feeding and insulin drip paused at this time. Spoke with Dr. Zhong about something for agitation. DrMercedes Ordered risperdal sublingual. Spoke with About pt. [...] became very agitated this AM, RN notified MD who ordered single dose of seroquel, RN had arrived in Pt room will medication when Pt pulled out corpak. Will continue to monitor. * Cuong Sage - 07/02/2018 9:30 PM CDT Patient arrived to room # (8444) via bed accompanied by RN. Patient transferred [...] groin , will continue to monitor. * Higiniopresleychristie Cuong - 07/02/2018 9:20 PM CDT Pt [...] titration protocols. Will continue to monitor. * MaximinoMary Grace, OT - 07/02/2018 1:51 PM CDT Formatting of this note may be different from the original. OCCUPATIONAL THERAPY ASSESSMENT NOTE Patient Name: Valdez Anthony Room/Bed: GN8153/01 Admitting Diagnosis: Stroke Past Medical History: Diagnosis [...] non verbal with left hemiplegia. Transferred to [facility]. R MCA stroke s/p [...] occasionally in community. Prior Function Level Of Max: Independent with ADLs and functional transfers Lives [...] s/p suprapubic catheter that was admitted at [facility] for urosepsis, DKA, A fib with [...] s/p suprapubic catheter that was admitted at [facility] for urosepsis, DKA , A fib [...] from the ICU. Updated plan: - NPO, DECORATIVE ENGRAVER to monitor swallow - Protein shake supplements - f/u on Blood Cxr's - Continue insulin gtt, consider endocrine consult - SBP <140 [facility] [id number] Associated attestation - Diego Gutierrez MD - 07/03/2018 7:21 AM CDT Formatting of this note may be different from the original. ATTESTATION I personally interviewed and examined the patient. I have reviewed the history , physical, impression and plan outlined by the Nurse Practitioner. The patient presents with (HPI) 57 M w Afib was transferred from [facility] for L sided wks, found to have [...] is restart AC in 10 days, needs DECORATIVE ENGRAVER re-eval for get cleared otherwise PEG, Glu [...] ulceration, stop protonix Stable for transfer to [facility]. I spent 45 minutes (excluding time spent [...] reports that pt completed videoswallow evaluation at [facility], which she states yielded recommendations for honey [...] Continue Treatment 3-5x/week. Prognosis: Fair NOMS Dysphagia Ratin4-Jesleiqijn-Ljrmpg Dysphagia -Not able to swallow safely by mouth for nutrition/hydration but may take some consistency w/ consistent max cues in therapy only. Alternative method of feeding required. Results Reported to Physician: Yes Objective* Relevant Med Background: 57 y.o. male with A-Fib (on Coumadin PERSONAL CARE WORKER), IDDM, Prostate CA, OD blindness, HLD [...] videoswallow evaluation given mild-mod cues. Therapist:BIANCA Lamb L/CCC-DECORATIVE ENGRAVER Voalte: [phone] Date:07/02/2018 * Ciarra Valentino DO - 07/02/2018 [...] s/p suprapubic catheter that was admitted at [facility] for urosepsis, DKA , A fib [...] Factor Modification -LDL 44. Goal <70. Continue guest experience captain atorvastatin 40mg -A1c 17.4. Goal <7.0 -Continue ASA. Will discuss timing of AC given Afib. -Goal BP <140 - PT/OT, Speech Consult - Consult to Rehab - Neuro-ICU monitoring, neurochecks q 1 hrs Encephalopathy -s/p Flumazenil 0.5mg x 2 -07/01 ABG 7.34/39/102/20.6 -07/01 EEG: Diffuse slowing indicative of encephalopathy. No seizures or epileptiform activity. -No sedation needs -Holding guest experience captain Bupropion, Duloxetine Sedation/Pain Management: -s/p ativan 2mg and fentanyl 25mcg -s/p flumazenil 0.5 mg x 3 -No sedation needs at this time Cardiac: Afib with RVR -[id number]: 4: 4.8% Risk for stroke and 6.7% [...] - Hydralazine prn SBP >140 - Continue guest experience captain Lisinopril 20mg HLD - LDL 44. Goal LDL <70. Continue guest experience captain atorvastatin 20mg Respiratory: Hypoxia likely 2/2 [...] - Blood glucose goal 100-180mg/dl - Holding guest experience captain Levemir 16 units and Novolog 5 [...] (Last 24 hours) Glucose: (!) 127 (07/02/18 8415) POC Glucose (Download): (!) 142 (07/02/18 0649) Lab Review: 24-hour labs: Results for orders [...] Range Color,UA STRAW Turbidity,UA CLEAR CLEAR-CLEAR Specific [place]-Urine 1.018 1.003 - 1.035 pH,UA 5.0 5.0 [...] O2 Sat-Arterial 97.5 95 - 99 % Lqoclgoifts-EEZ-Sux 20.6 (L) 21 - 28 MMOL/L POC [...] Pertinent radiologic and diagnostic procedures reviewed. Ciarra Chelsy, DO Date: 07/02/[phone] Associated attestation - Veronica Doyle MD - [...] outpatient follow up Jerry Baker MD Urology business consultant Please page business consultant with concerns * Jaycob Ramos, - 07/01/2018 3:49 PM CDT Attempted to [...] Doyle MD Date: 07/01/2018 * Whit Guadarrama MS,CCC-DECORATIVE ENGRAVER - 07/01/2018 1:36 PM CDT SPEECH-LANGUAGE PATHOLOGY NO TREATMENT NOTE Order received and appreciated for clinical swallow evaluation. Chart reviewed and made contact with RN. Pt currently with another provider and with decreased level of arousal/responsiveness following ativan administration in the helicopter. DECORATIVE ENGRAVER will hold at this time per discussion with RN. DECORATIVE ENGRAVER will follow up and will complete evaluation when pt medically appropriate. Addendum 15:20: pt remains somnolent and unable to sustain adequate level of arousal to participate in clinical swallow evaluation per discussion with RN. DECORATIVE ENGRAVER will return to complete evaluation when appropriate. Chart review: Mr. Anthony presented to [facility] on 06/29 with uro-sepsis and DKA. [...] suggesting smaller completed infarct. Therapist: Whit Guadarrama MS,CCC-DECORATIVE ENGRAVER [id number] Date: 07/01/2018 * Mari Mullen RN - [...] (07/08 114) Respirations: 16 PER MINUTE (07/08 114) BP: [...] Hold] acetaminophen (TYLENOL) oral solution 650 mg [DEC Hold] amLODIPine (NORVASC) tablet 5 mg [DEC [...] s/p suprapubic catheter that was admitted at [facility] for urosepsis, DKA, A fib with [...] Factor Modification -Lipid Panel and A1c. Continue guest experience captain atorvastatin 40mg -TTE -Start ASA. -Goal BP <140 - PT/OT, Speech Consult - Consult to Rehab - Neuro-ICU monitoring, neurochecks q 1 hrs Encephalopathy likely 2/2 to Ativan, Fentanyl -s/p Flumazenil 0.5mg x 2 -ABG -CT Head w/out contrast -No sedation needs -Holding guest experience captain Bupropion, Duloxetine Sedation/Pain Management: -s/p ativan 2mg and fentanyl 25mcg -s/p flumazenil 0.5 mg x 2 -No sedation needs at this time Cardiac: Afib with RVR -[id number]: 4: 4.8% Risk for stroke and 6.7% [...] due to bradycardia at OSH - Holding guest experience captain Lisinopril 20mg and Metoprolol 25mg BID HLD - Lipid Panel. Goal LDL <70. Continue guest experience captain atorvastatin 20mg Respiratory: DHRUV -RA - [...] - Blood glucose goal 100-180mg/dl - Holding guest experience captain levemir, novolog FEN: - IVF: NPO, [...] p suprapubic catheter that was admitted at [facility] for urosepsis, DKA, A fib with RVR requiring cardizem ggt that was transferred for concerns for stroke. Admitted on 06/28 to [facility] with week history of cough, SOB. Found to have UTI with urosepsis and DKA with CO2 of 8, BG in 600s. Admitted to the ICU at [facility]. Started on CTX and Insulin ggt. [...] language) 2=neither correct 2 1c. 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, concrete saw operator and release non-paretic hand (other 1 step [...] more than one modality 2 Score 32 Lyle coma score: E: 2 - Opens eyes [...] hours): POC Glucose (Download): (!) 169 (07/01/18 1303) Lab Review: 24-hour labs: Results for orders [...] diagnostic procedures reviewed. Ciarra Valentino, Date: 07/01/[phone] * Edvin Juarez, SHANE-ATTENDANCE CLERK - 07/01/2018 12:03 PM CDT Formatting of [...] Labs: Pertinent labs reviewed GILLIAN Nelson Pager [phone] in this encounter Procedure Notes * Amy Velasquez MD - 07/01/2018 8:07 PM CDT Procedure(s): EEG AWAKE & ASLEEP EEG REPORT Valdez Anthony 1960 2013 [id number] DATE OF STUDY 07/01/18 PATIENT HISTORY: This [...] mL IVPB (MB+), 1 g, Intravenous, PRN (Hash Slinger from Rx) AND Ionized Calcium, , , [...] chloride 0.9 % infusion, , Intravenous, Continuous, Chelsy, Ciarra, DO, Last Rate: 75 mL/hr at 07/01/18 1330 sodium phosphate 8 mmol in dextrose 5% (D5W) 250 mL IVPB, 8 mmol, Intravenous, PRN (Hash Slinger from Rx) AND Phosphorus, , , PRN [...] here. EGD showed s/p polypectomy. Transferred to [facility] for stroke. Hgb dropped from 10.1 [...] She also does mention that at the [facility] the patient did have an upper [...] Resolved Ambulatory Problems Diagnosis Date Noted Sepsis ([facility]) 01/15/2016 Severe sepsis ([facility]) 01/15/2016 LATISHA (acute kidney injury) ([facility]) 01/15/2016 High anion gap metabolic acidosis 01/15/2016 Past Medical History: Diagnosis Date Arthritis DM (diabetes mellitus) ([facility]) DM eyes Glaucoma Hypertension Social History [...] Date Noted Anemia 07/03/2018 Agitation 07/03/2018 Stroke ([facility]) 07/01/2018 HTN (hypertension) 01/15/2016 Urinary retention with incomplete bladder emptying 01/15/2016 Diabetes ([facility]) 01/15/2016 Proliferative diabetic retinopathy(362.02) 01/14/2013 Neovascular [...] Color,UA YELLOW Turbidity,UA 2+ (A) CLEAR-CLEAR Specific [place]-Urine 1.017 1.003 - 1.035 pH,UA 5.0 5.0 [...] DKA resolved -A1c 17.4 on 07/01/2018 uncontrolled -PERSONAL CARE WORKER regimen: levemir 40 units QHS, Novolog [...] will follow up with local endocrinology in [facility] Patient was seen and discussed with Dr. [...] with diabetes in 1994. He follows with chip mixing machine operator at [facility]. At home, he was taking Levemir 40 units once a day, NovoLog 20-25 units with meal, metformin 1000 mg twice a day. His states that chip mixing machine operator prescribe NovoLog 40 units 3 times a [...] reviewed. Brenda Larios Endocrine Fellow Pager # [phone] 07/03/2018 Associated attestation - John Chaudhry MD [...] thick full liquids today) Estimated Calorie Needs: [id number] (25-28 kcal/kg desired wt) Estimated Protein Needs: 85-100 (1.2-1.4 g/kg desired wt) Oral Diet Order: Full Liquid, [place] Thick Liquids Current EN Order: Isosource 1.5 [...] s/p suprapubic catheter that was admitted at [facility] for urosepsis, DKA, A fib with [...] 07/02. Pt pulled Corpak today despite mits. DECORATIVE ENGRAVER evaluated pt via video-swallow with moderate oropharyngeal dysphagia and baseline cognitive deficits. DECORATIVE ENGRAVER recommending nectar thick full liquids; diet ordered. [...] meal. Offer No Sugar Added "Light Start Mcgrady Breakfast Essentials" shakes made with nectar thick [...] Intervention / Plan: assessed nutritional status; ordered Mcgrady Breakfast shakes with nectar thick milk PRN monitor po intake, adequacy, tolerance and advancement per DECORATIVE ENGRAVER findings and recs monitor wt trends, labs, meds and GI status Nutrition Diagnosis: Altered GI function Etiology: swallowing and cognitive deficits Signs & Symptoms: DECORATIVE ENGRAVER findings and recs for nectar thick full liquids with supervision Goals: Patient to consume >75% of meals/supplements Time Frame: Within 72 Hours Tata Daniels, MS,RD, LD, [facility] *[phone] * Damian Hensley MD - [...] resection, who was admitted upon transfer from [facility] on 07/01/2018 after originally presenting there with sepsis determined to be secondary to UTI complicated by DKA and Atrial Fibrillation and then apparent AMS. The patient was transferred to [facility] where CTA showed right M1 occlusion. He [...] complexity and goals with PT, OT, and DECORATIVE ENGRAVER for acute inpatient rehabilitation; however, he is [...] discharge. Please have primary SWCM discuss with [facility] photography coordinator according to the patient 's (and/or [...] a 57 y.o. male admitted to [facility] on 07/01/2018 with the following issues: R [...] hours while supine in bed, pressure relief [id number] in seated position, PRAFOs for pressure relief and to prevent contractures Jaycob Ramos, DO Rehab Consult Pager: [phone] History of Present Illness Hospital Course: Valdez Anthony is a 57 y.o. male with new onset Atrial Fibrillation with RVR, HTN , HLD, T2DM, Diabetic Retinopathy, OD Blindness, Neovascular Glaucoma, Prostate Cancer s/p prostatectomy, Urinary Retention s/p suprapubic catheter that was admitted at [facility] for urosepsis, DKA, A fib with [...] urosepsis. Rehab consulted for post acute rehab/placement. 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 Mitt and soft wrist restraints, [place] strap replaced end of session and bed [...] reports that pt completed videoswallow evaluation at [facility], which she states yielded recommendations for honey [...] * Case Mgmt DC Plan - Skylar Herat - 07/09/2018 11:04 AM CDT MANAGER FINANCIAL PLANNING Note: This rewriter printed and placed transfer packet in pt's chart drawer, per request from [facility] Sophia Vaughn. Skylar Heart Kiln Loader For additional assistance, please contact [facility] Sophia Vaughn *[phone] * Anesthesia Post Op Day 1 - Claudia Floyd, SRNA - 07/09/2018 10:21 AM CDT Formatting [...] days Todays Date: 07/09/2018 Plan D/c to [facility] today at 1:00pm via facility w/c [...] Half-Way Facility WILLEM sent updated clinicals to [facility] at [phone]. Update 10:00am: WILLEM spoke with Perla ([phone]) at [facility] to update. Perla educated that they will be available for transportation today at 1:00pm. WILLEM spoke with Neuro Team to update. WILLEM spoke with bedside RN to update. WILLEM tasked MANAGER FINANCIAL PLANNING to deliver transfer packet. RN Report: [phone] WILLME faxed d/c orders to [facility] at [phone]. ? Medication Needs ? Financial ? Legal [...] for the patient. Sophia Vaughn LMSW Phone: [phone] Pager: *[phone] * Case Mgmt DC Plan - Sophia Vaughn - 07/08/2018 9:10 AM CDT Formatting of this note may be different from the original. Case Management Progress Note NAME:Valdez Anthony :1959 AGE: 57 y.o. ADMISSION DATE: 07/01/2018 DAYS ADMITTED: LOS: 7 days Todays Date: 07/08/2018 Plan Anticipate d/c to [facility] tomorrow pending pt stability. Interventions SW reviewed EMR and met with Neuro team for huddle. Infection w/c ongoing. Gi consulted, anticipate EGD today. ? Support Support: Pt/Family Updates re:POC or DC Plan, Counseling for Adaptation to Illness, Counseling for Psychosocial issues SW visited pt's Leticia at bedside to update, pt currently off unit in GI. Leticia verbalized agreement with d/c and denied concerns. WILLEM spoke with bedside RN and pt would likely be safe to transport via w/c van. ? Info or Referral ? Discharge Planning Discharge Planning: Half-Way Facility WILLEM received and returned message for Angela ([phone]) at [facility] to discuss referral. Update 10:00am: WILLEM spoke with Blanquita ([phone]) at [facility] to update of anticipated d/c timeline. Blanquita educated that they are still reviewing for potential admission and will be contacting pt's to further discuss an admission. However, they will notify WILLEM once decision reached. Update 10:44am: WILLEM spoke with Perla at [facility] to update. Perla educated that they are able to accept for admission and will have their w/c van available for such. ? Medication Needs ? Financial [employer] following for assistance with vendome 1699 Medicaid ariel. ? Legal ? Other Other/None: [...] for the patient. Sophia Vaughn LMSW Phone: [phone] Pager: *[phone] * Care Plan - Shira Welch RN [...] Todays Date: 07/07/2018 Plan Anticipate d/c to [facility] tomorrow pending pt stability and facility acceptance. Interventions WILLEM reviewed EMR and met with Neuro team for huddle. GI consulted. Anticipated EGD today. ? Support Support: Pt/Family Updates re:POC or DC Plan, Counseling for Adaptation to Illness, Counseling for Psychosocial issues ? Info or Referral ? Discharge Planning Discharge Planning: Half-Way Facility WILLEM left message for Admissions ([phone]) at [facility] to discuss referral. Update 11:40am: WILELM spoke with Hyacinth ([phone]) at [facility] and they are unable to locate referral. WILLEM agreeable to re-send referral to [phone], which WILLEM completed. Hyacinth educated that she will review and follow up. Hyacinth will also speak with her laboratory supervisor to discuss their ability to assist with transportation. Update 1:20pm: WILLEM received message from Hyacinth and they are still unable to locate referral. WILLEM manually faxed referral to [phone], as requested. Update 2:00pm: SW received message from Hyacinth that they only got a portion of the referral. WILLEM re-faxed referral to [phone]. Update 4:00pm: WILLEM received and returned message for Angela ([phone]) at [facility]. ? Medication Needs ? Financial ? [...] for the patient. Sophia Vaughn LMSW Phone: [phone] Pager: *[phone] * Care Plan - Shira Welch RN [...] Liana Ortiz - 07/06/2018 10:50 AM CDT MANAGER FINANCIAL PLANNING Note: Received request from [facility] Sophia Vaughn to fax referrals to the following placements. [facility] was also asked to check wheelchair van costs to the facility. [facility] - $350-375 [facility] - $500-525 [facility] - $400-425 [facility] w/c van - $430 All subject to time, billed constitution party, needs, etc. Updated [facility] Liana Ortiz Kiln Loader For additional assistance please contact [facility] Sophia Roderick *[phone] * Case Mgmt DC Plan - Martina Vaughnleen - 07/06/2018 10:36 AM CDT Formatting of this note may be different from the original. Case Management Progress Note NAME:Valdez Anthony :1959 AGE: 57 y.o. ADMISSION DATE: 07/01/2018 DAYS ADMITTED: LOS: 5 days Todays Date: 07/06/2018 Plan Anticipate d/c to [facility] tomorrow vs Friday pending pt stability and facility acceptance. Interventions SW reviewed EMR and met with Neuro team for huddle. Anticipate GI consult. Continue to monitor hgb. ? Support Support: Pt/Family Updates re:POC or DC Plan, Counseling for Adaptation to Illness, Counseling for Psychosocial issues SW visited pt and Leticia at bedside to discuss DCP. Leticia requested referral to [facility]. SW agreeable and reviewed referral process. SW also reviewed potential private pay cost of w/c van should SNF be unable to assist. Leticia uncertain regarding their ability to private pay, however unwilling to remain in [facility] for SNF stay. SW agreeable to obtaining quote for ongoing assistance. ? Info or Referral ? Discharge Planning Discharge Planning: Half-Way Facility SW tasked MANAGER FINANCIAL PLANNING to send referral to [facility]. SW tasked [facility] to check rosenberg of w/c van. ? [...] for the patient. Sophia Vaughn LMSW Phone: [phone] Pager: [phone] * Case Mgmt DC Plan - Martina Vaughnleen - 07/03/2018 2:11 PM CDT Formatting of [...] for the patient. Sophia Vaughn LMSW Phone: [phone] Pager: *[phone] * Transfer - Ciarra Valentino, DO - [...] suprapubic catheter that was admitted at [facility] for urosepsis, DKA , A fib [...] Started on ASA. LDL 40, continued on guest experience captain atrovastatin. PT/OT and Speech consulted. CV: Initially started on Nicardipine ggt for goal SBP <140. Restarted on guest experience captain lisinopril. Intermittent Afib on telemetry. Restarted [...] s/p suprapubic catheter placement. On CTX Day 4/. OSH Urine Cultures showing no growth, finalized. OSH blood cultures growing coag neg staph. Repeat blood cultures pending. Renal/: Urinary retention s/p suprapubic catheter at OSH. Urology consulted. Endo: DKA at OSH. DKA resolved. Insulin ggt continued. Holding guest experience captain Levemir and Novolog. Consider Endocrine consult. [...] Discharge Plan: Undetermined Ciarra Valentino DO Pager [phone] * Case Mgmt DC Plan - Sophia Vaughn - 07/01/2018 3:09 PM CDT Case Management Admission Assessment NAME:Valdez Anthony :1959 AGE: 57 y.o. ADMISSION DATE: 07/01/2018 DAYS ADMITTED: LOS: 0 days Todays Date: 07/01/2018 Source of Information: SW visited pt's Leticia and pt's OCTAVIANO Moseley at bedside. Plan Plan: CM Assessment, Assist PRN with SW/NCM Services Patient Address/Phone [address] [facility] [phone] (home) Emergency Contact Extended Emergency Contact Information Primary Emergency Contact: Suzie English (ANTONINO) Relation: Relative Secondary Emergency Contact: Leticia Anthony (Judy) [facility] Relation: Spouse Healthcare Directive None Transportation [...] (Medicare Part A and B) Secondary Insurance: VA/[facility] ([facility]) Additional Coverage: VA (fills at [facility]. ) ? Source of Income Source Of Income: SSDI ? Financial Assistance Needed? None Psychosocial Needs ? Mental Health Mental Health History: No ? Substance Use History Substance Use History Screen: No ? Other None Current/Previous Services ? PCP Chris Seay APRN at [facility] ([phone] ext [phone]) ? Pharmacy [email or web address] [address] [address] ? Durable Medical Equipment Durable Medical Equipment [...] ? Outpatient Therapy PT: No OT: No DECORATIVE ENGRAVER: No ? Half-Way Facility/[facility] SNF: No NH: No Pt's OCTAVIANO Moseley works at [employer], therefore family understanding of LTC and SNF level of cares. ? Inpatient Rehab IPR: No ? [facility] LTACH: No ? Acute Hospital Stay Acute Hospital Stay: In the past Was patient's stay within the last 30 days?: No Sophia Vaughn LMSW Phone: [phone] Pager: [phone] * Acute Stroke Response - Alonzo Watt [...] 57 y.o. male with A-Fib (on Coumadin PERSONAL CARE WORKER), IDDM, Prostate CA, OD blindness, HLD [...] Monitor telemetry for arrhythmia - NPO - DECORATIVE ENGRAVER to eval speech when more alert - PT/OT to eval and treat - Rehab Medicine Consult The patient was seen and discussed with Dr. Gutierrez History of Present Ilness History of Present Illness: Mr. Anthony presented to [facility] on 06/29 with uro-sepsis and DKA. [...] and then to IR for EVT. At [facility] he had dropping Hgb and positive [...] language) 2=neither correct 2 1c. 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, concrete saw operator and release non-paretic hand (other 1 step [...] No narrative on file Medications: PRN Medications: [DEC Hold] calcium gluconate IV PRN (Hash Slinger from Rx) AND Ionized Calcium PRN AND Notify Physician Ongoing, [DEC Hold] magnesium sulfate PRN AND Magnesium PRN AND Notify Physician Ongoing, [DEC Hold] potassium chloride SR PRN OR [DEC Hold] potassium chloride PRN, [DEC Hold] sodium phosphate IVPB PRN (Hash Slinger from Rx) AND Phosphorus PRN AND Notify [...] nucleus suggesting smaller completed infarct. Alonzo Watt APRN-ATTENDANCE CLERK Vascular Neurology [id number] Associated attestation - Diego [...] Date: 07/01/2018 Attending Physician: Lulu Perry MD Bindery Machine Feeder Offbearer(s): Miri Nair Stroke Treatment Time out performed: [...] Sedated from ativan Lulu Perry MD Pager: [phone] * Acute Stroke Response - Hannah Ceballos RN - 07/01/2018 12:14 PM CDT Formatting of this note may be different from the original. RN Stroke Activation Summary Date of Service: 07/01/2018 Valdez Anthony is a 57 y.o. male. : 1960 Allergies: Patient has no known allergies. Patient Arrival: 1118 ASRT Arrival: 1108 Location of Response : [place] 3 pack north elevator 2nd floor Page Received: 1102 (ETA 10 minutes) EMS Agency: [facility] Outside Hospital: [facility] Clinical Presentation: Decreased LOC, Dysarthria, Left [...] Summary: Report received from MAXINE Pardo at [facility] in [place], [place]. Per report patient last known well today at 0730. At 0825 she noted patient to be less responsive with left side flaccid, dysarthria and left facial droop. Patient transferred to [facility] and upon arrival had decreased LOC. Flight [...] dressing applied at 1228. Patient transported to [place] [address], [facility] and no complications noted. Report given to MAXINE Cooley. CT/CTP/CTA/IR: CTA/CTP time: 1125 CTA/CTP Interpretation time: 1145 N/A Plan: Patient admitted to [place] [address] post procedure for further evaluation and monitoring. [...] Organization Address City/State/Zipcode Phone Number MAIN LAB [phone] [place] [address] * POC GLUCOSE (07/09/2018 3:34 PM) Glucose, POC 66 (L) 70 - 100 MG/DL [facility] Performing Organization Address [facility] [[email or web address] Phone Number [facility] [address] [place] [address] * POC GLUCOSE (07/09/2018 3:18 PM) Glucose, POC 69 (L) 70 - 100 MG/DL [facility] Performing Organization Address City/[facility] [[email or web address] Phone Number [facility] [address] [place] [address] * POC GLUCOSE (07/09/2018 1:49 PM) Glucose, POC 136 (H) 70 - 100 MG/DL [facility] Performing Organization Address [facility] [[email or web address] Phone Number [facility] [address] [place] [address] * POC GLUCOSE (07/09/2018 11:40 AM) Glucose, POC 158 (H) 70 - 100 MG/DL [facility] Performing Organization Address City/[facility] [[email or web address] Phone Number [facility] [address] [place] [address] * POC GLUCOSE (07/09/2018 8:35 AM) Glucose, POC 104 (H) 70 - 100 MG/DL [facility] Performing Organization Address [facility] Phone Number [facility] [address] [place] [address] * COMPREHENSIVE METABOLIC PANEL (07/09/2018 5:47 AM) [...] Address City/State/Zipcode Phone Number [facility] [address] [place] [address] * CBC AND DIFF (07/09/2018 5:47 AM) [...] City/State/Zipcode Phone Number [facility] [address] [place] [address] * POC GLUCOSE (07/09/2018 3:09 AM) Glucose, POC 151 (H) 70 - 100 MG/DL [facility] Performing Organization Address City/[facility]/Zipcode Phone Number [facility] [address] [place] [address] * POC GLUCOSE (07/09/2018 1:10 AM) Glucose, POC 80 70 - 100 MG/DL [facility] Performing Organization Address City/[facility] [[email or web address] Phone Number MAIN LAB [address] [place] [address] * CULTURE-BLOOD W/SENSITIVITY (07/08/2018 10:25 PM) Battery Name BLOOD CULTURE MAIN LAB Specimen Description BLOOD MAIN LAB LEFT HAND Special Requests NONE MAIN LAB Culture NO GROWTH 5 DAYS MAIN LAB Report Status FINAL MAIN LAB 07/14/2018 Specimen Blood Performing Organization Address City/[facility]/Zipcode Phone Number MAIN LAB [address] [place] [address] * POC GLUCOSE (07/08/2018 9:52 PM) Glucose, POC 96 70 - 100 MG/DL [facility] Performing Organization Address City/[facility] [facility] [[email or web address]]code Phone Number MAIN LAB [address] [place] [address] * CULTURE-BLOOD W/SENSITIVITY (07/08/2018 8:20 PM) Battery Name BLOOD CULTURE MAIN LAB Specimen Description BLOOD MAIN LAB LEFT ANTECUBITAL Special Requests NONE MAIN LAB Culture NO GROWTH 5 DAYS MAIN LAB Report Status FINAL MAIN LAB 07/14/2018 Specimen Blood Performing Organization Address City/[facility]/Zipcode Phone Number MAIN LAB [address] [place] [address] * POC GLUCOSE (07/08/2018 5:56 PM) Glucose, POC 129 (H) 70 - 100 MG/DL [facility] MAIN LAB Performing Organization Address City/State/Zipcode Phone Number [facility] MAIN LAB [address] [place] [address] * SURGICAL PATHOLOGY (07/08/2018 4:34 PM) PATHOLOGY REPORT [facility] [email or web address] Department of Pathology and Laboratory Medicine [address] [place] [address] Surgical Pathology Office:[phone] :[phone] SURGICAL PATHOLOGY REPORT NAME: VALDEZ ANTHONY SURG PATH #: [id number] MR #: [id number] SPECIMEN CLASS: SR BILLING #: [id number] ALT ID #:LOCATION: DISCHARGED DATE OF PROCEDURE: [...] cassette C1. (ab) ab/07/08/2018 Performing Organization Address [facility] [[email or web address]]code Phone Number K[facility] LAB RESULTS * UA REFLEX CULTURE LABEL (07/08/2018 4:09 PM) Reflex Culture LAB LABEL [facility] MAIN LAB Specimen Urine Performing Organization Address [facility] [[email or web address]]code Phone Number [facility] MAIN LAB [address] [place] [address] * URINALYSIS MICROSCOPIC REFLEX TO CULTURE (07/08/2018 4:09 PM) WBCs,UA 0-2 0 - 2 /HPF [facility] MAIN LAB RBCs,UA 0-2 0 - 3 /HPF [facility] MAIN LAB Comment,UA Urine submitted for reflex [facility] MAIN LAB culture if criteria are met:WBC>10, positive nitrite and/or >=1+ leukocyte esterase. If quantity is not sufficient, an addendum will follow. Specimen Urine Performing Organization Address [facility] [[email or web address]]cowy Phone Number MAIN LAB [address] [place] [address] * URINALYSIS DIPSTICK REFLEX TO CULTURE (07/08/2018 4:09 PM) Color,UA STRAW [facility] MAIN LAB Turbidity,UA CLEAR CLEAR-CLEAR [facility] MAIN LAB Specific [place]-Urine 1.005 1.003 - 1.035 [facility] MAIN LAB [...] City/State/Zipcode Phone Number [facility] MAIN LAB [address] [place] [address] * CHEST SINGLE VIEW (07/08/2018 2:15 PM) [...] on 07/08/2018 2:17 PM. Performing Organization Address City/[facility]/Zipcode Phone Number RAD RESULTS * POC GLUCOSE (07/08/2018 1:57 PM) Glucose, POC 75 70 - 100 MG/DL MAIN LAB Performing Organization Address City/[facility] [[email or web address]]code Phone Number MAIN LAB [address] [place] [address] * POC GLUCOSE (07/08/2018 1:21 PM) Glucose, POC 67 (L) 70 - 100 MG/DL MAIN LAB Performing Organization Address [facility] [[email or web address]]code Phone Number MAIN LAB [address] [place] [address] * POC GLUCOSE (07/08/2018 11:46 AM) Glucose, POC 164 (H) 70 - 100 MG/DL MAIN LAB Performing Organization Address [facility] [[email or web address]]code Phone Number MAIN LAB [address] [place] [address] * POC GLUCOSE (07/08/2018 11:22 AM) Glucose, POC 40 (LL) 70 - 100 MG/DL MAIN LAB Performing Organization Address [facility] [[email or web address]]cowy Phone Number MAIN LAB [address] [place] [address] * EGD REPORT (07/08/2018 10:48 AM) Provation Report Patient Name: Raj DIMAS OTHER RESULTS Procedure Date: 07/08/2018 10:48 AM CSN: [id number] Date of : 1960 Gender: Male Attending Physician: Clara Carolina MD Procedure: Upper GI endoscopy Indications: Anemia (Mixed picture of anemia of chronic disease + Iron deficiency anemia), new onset of Afib and not on AC. Providers: Clara Carolina MD (Doctor), Roberto Dutta MD (Fellow), Alvaro Banegas (Nurse), Minna Jiménez RN (Nurse), Abisai Burden, Spot Cleaner (Spot Cleaner) Referring Physician: Referral Self Medications: Monitored Anesthesia [...] 55 seconds Procedure Code(s): --- Professional --- 51799, Esophagogastroduodenoscopy, flexible, transoral; with biopsy, single or multiple Diagnosis Code(s): --- Professional --- K44.9, Diaphragmatic hernia without obstruction or gangrene K31.89, Other diseases of stomach and duodenum D50.0, Iron deficiency anemia secondary to blood loss (chronic) CPT copyright 2016 [employer]. All rights reserved. The codes documented in this report are preliminary and upon grinding and polishing laborer review may be revised to meet current [...] RESULTS Procedure Date: 07/08/2018 10:47 AM CSN: [id number] Date of : 1960 Gender: Male Attending Physician: Clara Carolina MD Procedure: Colonoscop y Indications: Anemia (Mixed picture of anemia of chronic disease + Iron deficiency anemia), new onset of Afib and not on AC. Providers: Clara Carolina MD (Doctor), Roberto Dutta MD (Fellow), Alvaro Banegas (Nurse), Minna Jiménez RN (Nurse), Abisai Burden, Spot Cleaner (Spot Cleaner) Referring Physician: Gerard Salazar MD Medications: Monitored [...] 15 seconds Procedure Code(s): --- Professional --- 61185, Colonoscopy, flexible; diagnostic, including collection of specimen(s) by brushing or washing, when performed (separate procedure) Diagnosis Code(s): --- Professional --- D50.0, Iron deficiency anemia secondary to blood loss (chronic) CPT copyright 2016 [employer]. All rights reserved. The codes documented in this report are preliminary and upon grinding and polishing laborer review may be revised to meet current compliance requirements. Attending Participation: I was present and participated during the entire procedure, including non-jacobs portions. MD Clara De Oliveira MD 07/08/2018 1:28:26 PM The attending physician has electronically signed and finalized this document. Roberto Dutta MD Number of Addenda: 0 Note Initiated On: 07/08/2018 10:47 AM Performing Organization Address City/[facility] [[email or web address]]code Phone Number OTHER RESULTS * POC GLUCOSE (07/08/2018 7:33 AM) Glucose, POC 88 70 - 100 MG/DL [facility] MAIN LAB Performing Organization Address [facility] [[email or web address]]cowy Phone Number MAIN LAB [address] [place] [address] * PROCALCITONIN (07/08/2018 5:53 AM) Procalcitonin 0.13 (H) <0.10 NG/ML [facility] MAIN LAB Performing Organization Address [facility] [[email or web address]]cowy Phone Number MAIN LAB [address] [place] [address] * COMPREHENSIVE METABOLIC PANEL (07/08/2018 5:53 AM) [...] for questions. Specimen Blood Performing Organization Address City/[facility]/Zipcode Phone Number MAIN LAB [address] [place] [address] * CBC AND DIFF (07/08/2018 5:53 AM) [...] MAIN LAB Specimen Blood Performing Organization Address City/[facility]/Zipcode Phone Number MAIN LAB [address] [place] [address] * POC GLUCOSE (07/07/2018 9:26 PM) Glucose, POC 176 (H) 70 - 100 MG/DL [facility] MAIN LAB Performing Organization Address City/[facility] [[email or web address]]code Phone Number [facility] MAIN LAB [address] [place] [phone] * POC GLUCOSE (07/07/2018 5:54 PM) Glucose, POC 111 (H) 70 - 100 MG/DL [facility] MAIN LAB Performing Organization Address City/[facility] [[email or web address]]code Phone Number [facility] MAIN LAB [address] [place] [address] * POC GLUCOSE (07/07/2018 11:30 AM) Glucose, POC 90 70 - 100 MG/DL [facility] MAIN LAB Performing Organization Address [facility] [[email or web address]]code Phone Number [facility] MAIN LAB [address] [place] [phone] * CBC AND DIFF (07/07/2018 8:00 AM) White Blood Cells 14.6 (H) 4.5 - 11.0 K/UL [facility] MAIN LAB RBC 3.21 (L) 4.4 - 5.5 M/UL [facility] MAIN LAB Hemoglobin 9.5 (L) 13.5 - 16.5 GM/DL [facility] MAIN LAB Hematocrit 28.5 (L) 40 - 50 % [facility] MAIN LAB MCV 88.7 80 - 100 FL MAIN LAB MCH [...] MAIN LAB Specimen Blood Performing Organization Address [facility] [[email or web address]]code Phone Number MAIN LAB [address] [place] [address] * POC GLUCOSE (07/07/2018 7:49 AM) Glucose, POC 182 (H) 70 - 100 MG/DL [facility] MAIN LAB Performing Organization Address [facility] [[email or web address]]cowy Phone Number [facility] MAIN LAB [address] [place] [address] * COMPREHENSIVE METABOLIC PANEL (07/07/2018 5:45 AM) [...] Clinical Pharmacist for questions. Performing Organization Address [facility] [[email or web address]]code Phone Number MAIN LAB [address] [place] [address] * HEMOGLOBIN (07/07/2018 5:45 AM) Hemoglobin 9.5 (L) 13.5 - 16.5 GM/DL MAIN LAB Comment: Corrected on 07/09 AT 1021: previously reported as DUPLICATE ORDER, Corrected on 07/07 AT 0811: previously reported as 9.5 Specimen Blood Performing Organization Address City/[facility] [[email or web address]]code Phone Number MAIN LAB [address] [place] [address] * HEMOGLOBIN (07/06/2018 10:45 PM) Hemoglobin 10.5 (L) 13.5 - 16.5 GM/DL MAIN LAB Specimen Blood Performing Organization Address City/[facility] [[email or web address]]code Phone Number MAIN LAB [address] [place] [address] * OCCULT BLOOD NON COLON CANCER SCREEN (07/06/2018 10:45 PM) Battery Name OCCULT BLOOD SCREEN MAIN LAB Specimen Description FECES MAIN LAB Special Requests NONE MAIN LAB Occult Blood NEGATIVE MAIN LAB Report Status FINAL MAIN LAB 07/06/2018 Specimen Stool - Feces Performing Organization Address [facility] Phone Number MAIN LAB [address] [place] [address] * POC GLUCOSE (07/06/2018 9:04 PM) Glucose, POC 115 (H) 70 - 100 MG/DL MAIN LAB Performing Organization Address [facility] Phone Number MAIN LAB [address] [place] [address] * POC GLUCOSE (07/06/2018 5:11 PM) Glucose, POC 150 (H) 70 - 100 MG/DL [facility] MAIN LAB Performing Organization Address [facility] [[email or web address]]code Phone Number MAIN LAB [address] [place] [address] * POC GLUCOSE (07/06/2018 2:36 PM) Glucose, POC 196 (H) 70 - 100 MG/DL MAIN LAB Performing Organization Address City/[facility] [[email or web address]]code Phone Number MAIN LAB [address] [place] [address] * HEMOGLOBIN (07/06/2018 1:31 PM) Hemoglobin 8.9 (L) 13.5 - 16.5 GM/DL MAIN LAB Specimen Blood Performing Organization Address City/[facility] [[email or web address]]code Phone Number [facility] MAIN LAB [address] [place] [address] * POC GLUCOSE (07/06/2018 11:49 AM) Glucose, POC 153 (H) 70 - 100 MG/DL [facility] MAIN LAB Performing Organization Address [facility] [[email or web address]]code Phone Number [facility] MAIN LAB [address] [place] [address] * POC GLUCOSE (07/06/2018 7:29 AM) Glucose, POC 130 (H) 70 - 100 MG/DL [facility] MAIN LAB Performing Organization Address [facility] Phone Number [facility] MAIN LAB [address] [place] [address] * HEMOGLOBIN (07/06/2018 4:27 AM) Hemoglobin 9.1 (L) 13.5 - 16.5 GM/DL MAIN LAB Specimen Blood Performing Organization Address [facility] Phone Number MAIN LAB [address] [place] [address] * CBC (07/06/2018 4:27 AM) White Blood [...] MAIN LAB Specimen Blood Performing Organization Address [facility] [[email or web address]]cowy Phone Number [facility] MAIN LAB [address] [place] [address] * BASIC METABOLIC PANEL (07/06/2018 4:27 AM) [...] for questions. Specimen Blood Performing Organization Address City/[facility]/Zipcode Phone Number MAIN LAB [address] [place] [address] * POC GLUCOSE (07/06/2018 2:35 AM) Glucose, POC 132 (H) 70 - 100 MG/DL [facility] MAIN LAB Performing Organization Address City/[facility] [[email or web address]]code Phone Number MAIN LAB [address] [place] [address] * POC GLUCOSE (07/05/2018 10:09 PM) Glucose, POC 89 70 - 100 MG/DL [facility] MAIN LAB Performing Organization Address [facility] [[email or web address]]cowy Phone Number MAIN LAB [address] [place] [address] * HEMOGLOBIN (07/05/2018 9:40 PM) Hemoglobin 10.1 (L) 13.5 - 16.5 GM/DL [facility] MAIN LAB Specimen Blood Performing Organization Address City/[facility]/[employer] Phone Number MAIN LAB [address] [place] [address] * POC GLUCOSE (07/05/2018 9:37 PM) Glucose, POC 77 70 - 100 MG/DL [facility] MAIN LAB Performing Organization Address [facility] [[email or web address]]code Phone Number MAIN LAB [address] [place] [address] * POC GLUCOSE (07/05/2018 8:15 PM) Glucose, POC 81 70 - 100 MG/DL [facility] MAIN LAB Performing Organization Address City/[facility]/Zipcode Phone Number [facility] MAIN LAB [address] [place] [address] * CULTURE-URINE W/SENSITIVITY (07/05/2018 6:45 PM) Battery Name URINE CULTURE [facility] MAIN LAB Specimen Description URINE [facility] MAIN LAB Special Requests NONE [facility]U MAIN LAB Culture NO GROWTH [facility] MAIN LAB Report Status FINAL [facility] MAIN LAB 07/06/2018 Specimen Urine Performing Organization Address [facility] [[email or web address]]code Phone Number [facility] MAIN LAB [address] [place] [address] * UA REFLEX CULTURE LABEL (07/05/2018 6:45 PM) UA Reflex Culture LAB LABEL [facility] MAIN LAB Specimen Urine Performing Organization Address [facility] [[email or web address]]code Phone Number [facility] MAIN LAB [address] [place] [address] * URINALYSIS MICROSCOPIC REFLEX TO CULTURE (07/05/2018 6:45 PM) WBCs,UA 2-10 0 - 2 /HPF [facility] MAIN LAB RBCs,UA 10-20 0 - 3 /HPF [facility] MAIN LAB Comment,UA Urine submitted for reflex [facility] MAIN LAB culture if criteria are met:WBC>10, positive nitrite and/or >=1+ leukocyte esterase. If quantity is not sufficient, an addendum will follow. MucousUA 1+ MAIN LAB Squamous Epithelial Cells 0-2 0 - 5 MAIN LAB Specimen Urine Performing Organization Address [facility] [[email or web address]]code Phone Number [facility] MAIN LAB [address] [place] [address] * URINALYSIS DIPSTICK REFLEX TO CULTURE (07/05/2018 6:45 PM) Color,UA YELLOW [facility] MAIN LAB Turbidity,UA 2+ (A) CLEAR-CLEAR [facility] MAIN LAB Specific [place]-Urine 1.017 1.003 - 1.035 K[facility] MAIN LAB [...] LAB Urine Ascorbic Acid, UA NEG NEG-NEG [facility] MAIN LAB Specimen Urine Performing Organization Address [facility] [[email or web address]]code Phone Number [facility] MAIN LAB [address] [place] [address] * POC GLUCOSE (07/05/2018 4:37 PM) Glucose, POC 79 70 - 100 MG/DL [facility] MAIN LAB Performing Organization Address [facility] [[email or web address]]code Phone Number [facility] MAIN LAB [address] [place] [address] * POC GLUCOSE (07/05/2018 2:02 PM) Glucose, POC 92 70 - 100 MG/DL [facility] MAIN LAB Performing Organization Address [facility] [[email or web address]]cowy Phone Number [facility] MAIN LAB [address] [place] [address] * HEMOGLOBIN (07/05/2018 2:00 PM) Hemoglobin 9.6 (L) 13.5 - 16.5 GM/DL [facility] MAIN LAB Specimen Blood Performing Organization Address [facility] [[email or web address]]cowy Phone Number [facility] MAIN LAB [address] [place] [address] * POC GLUCOSE (07/05/2018 11:32 AM) Glucose, POC 102 (H) 70 - 100 MG/DL [facility] MAIN LAB Performing Organization Address [facility] Phone Number MAIN LAB [address] [place] [address] * ABDOMEN AP ONLY (07/05/2018 9:20 AM) [...] on 07/05/2018 10:21 AM. Performing Organization Address [facility] [[email or web address]][employer] Phone Number RAD RESULTS * POC GLUCOSE (07/05/2018 6:56 AM) Glucose, POC 139 (H) 70 - 100 MG/DL MAIN LAB Performing Organization Address [facility] [[email or web address]][employer] Phone Number [facility] [address] [place] [address] * CBC (07/05/2018 5:50 AM) White Blood Cells 12.4 (H) 4.5 - 11.0 K/UL [facility] LAB RBC 3.21 (L) 4.4 - 5.5 M/UL [facility] LAB Hemoglobin 9.5 (L) 13.5 - 16.5 GM/DL [facility] LAB Hematocrit 27.9 (L) 40 - 50 % [facility] LAB MCV 86.9 80 - 100 FL [facility] LAB MCH 29.6 26 - 34 PG [facility] MCHC 34.1 32.0 - 36.0 G/DL [facility] RDW 14.0 11 - 15 % [facility] Platelet Count 413 (H) 150 - 400 K/UL [facility] MPV 8.7 7 - 11 FL [facility] LAB Specimen Blood Performing Organization Address [facility] [[email or web address]][employer] Phone Number [facility] [address] [place] [address] * POC GLUCOSE (07/05/2018 5:29 AM) Glucose, POC 125 (H) 70 - 100 MG/DL MAIN LAB Performing Organization Address [facility] [[email or web address]]code Phone Number MAIN LAB [address] [place] [address] * BASIC METABOLIC PANEL (07/05/2018 5:25 AM) Sodium 137 137 - 147 MMOL/L [facility] MAIN LAB Potassium 3.3 (L) 3.5 - 5.1 MMOL/L [facility] MAIN LAB Chloride 104 98 - 110 MMOL/L [facility] MAIN LAB CO2 25 21 - 30 MMOL/L [facility] MAIN LAB Anion Gap 8 3 - 12 MAIN LAB Glucose 131 (H) 70 - [...] for questions. Specimen Blood Performing Organization Address City/[facility]/Zipcode Phone Number MAIN LAB [address] [place] [address] * POC GLUCOSE (07/05/2018 2:37 AM) Glucose, POC 103 (H) 70 - 100 MG/DL [facility] MAIN LAB Performing Organization Address [facility] [[email or web address]]code Phone Number MAIN LAB [address] [place] [address] * POC GLUCOSE (07/05/2018 1:31 AM) Glucose, POC 94 70 - 100 MG/DL [facility] MAIN LAB Performing Organization Address City/[facility]/Zipcode Phone Number MAIN LAB [address] [place] [address] * POC GLUCOSE (07/05/2018 12:41 AM) Glucose, POC 121 (H) 70 - 100 MG/DL [facility] MAIN LAB Performing Organization Address City/[facility]/Zipcode Phone Number MAIN LAB [address] [place] [address] * POC GLUCOSE (07/04/2018 11:19 PM) Glucose, POC 84 70 - 100 MG/DL [facility] MAIN LAB Performing Organization Address City/[facility]/Zipcode Phone Number [facility] MAIN LAB [address] [place] [address] * HEMOGLOBIN (07/04/2018 9:30 PM) Hemoglobin 13.5 13.5 - 16.5 GM/DL [facility] MAIN LAB Specimen Blood Performing Organization Address City/[facility] [[email or web address]]code Phone Number [facility] MAIN LAB [address] [place] [address] * POC GLUCOSE (07/04/2018 9:15 PM) Glucose, POC 105 (H) 70 - 100 MG/DL [facility] MAIN LAB Performing Organization Address City/[facility] [[email or web address]]code Phone Number [facility] MAIN LAB [address] [place] [address] * POC GLUCOSE (07/04/2018 7:50 PM) Glucose, POC 164 (H) 70 - 100 MG/DL [facility] MAIN LAB Performing Organization Address City/[facility] [[email or web address]]code Phone Number [facility] MAIN LAB [address] [place] [address] * POC GLUCOSE (07/04/2018 7:23 PM) Glucose, POC 44 (LL) 70 - 100 MG/DL [facility] MAIN LAB Performing Organization Address [facility] Phone Number [facility] MAIN LAB [address] [place] [address] * POC GLUCOSE (07/04/2018 5:10 PM) Glucose, POC 96 70 - 100 MG/DL [facility] MAIN LAB Performing Organization Address [facility] [[email or web address]]code Phone Number MAIN LAB [address] [place] [address] * IRON + BINDING CAPACITY + %SAT+ FERRITIN (07/04/2018 2:20 PM) Iron 49 (L) 50 - 185 MCG/DL [facility] MAIN LAB Iron Binding-TIBC 212 (L) 270 - 380 MCG/DL [facility] MAIN LAB % Saturation 23 (L) 28 - 42 % [facility] MAIN LAB Ferritin 383 (H) 30 - 300 NG/ML [facility] MAIN LAB Specimen Blood Performing Organization Address City/[facility]/Zipcode Phone Number MAIN LAB [address] [place] [address] * POC GLUCOSE (07/04/2018 2:19 PM) Glucose, POC 137 (H) 70 - 100 MG/DL [facility] MAIN LAB Performing Organization Address City/[facility] [[email or web address]]code Phone Number MAIN LAB [address] [place] [address] * POC GLUCOSE (07/04/2018 1:42 PM) Glucose, POC 114 (H) 70 - 100 MG/DL [facility] MAIN LAB Performing Organization Address City/[facility] [[email or web address]]code Phone Number MAIN LAB [address] [place] [address] * POC GLUCOSE (07/04/2018 1:16 PM) Glucose, POC 55 (L) 70 - 100 MG/DL [facility] MAIN LAB Performing Organization Address City/[facility] [[email or web address]]code Phone Number MAIN LAB [address] [place] [address] * HEMOGLOBIN (07/04/2018 1:15 PM) Hemoglobin 9.4 (L) 13.5 - 16.5 GM/DL [facility] MAIN LAB Specimen Blood Performing Organization Address City/[facility] [[email or web address]]code Phone Number MAIN LAB [address] [place] [address] * POC GLUCOSE (07/04/2018 12:52 PM) Glucose, POC 66 (L) 70 - 100 MG/DL [facility] MAIN LAB Performing Organization Address [facility] [[email or web address]]code Phone Number MAIN LAB [address] [place] [address] * POC GLUCOSE (07/04/2018 12:19 PM) Glucose, POC 66 (L) 70 - 100 MG/DL [facility] MAIN LAB Performing Organization Address City/[facility]/Zipcode Phone Number MAIN LAB [address] [place] [address] * POC GLUCOSE (07/04/2018 12:17 PM) Glucose, POC 59 (L) 70 - 100 MG/DL [facility] MAIN LAB Performing Organization Address City/[facility] [[email or web address]]code Phone Number MAIN LAB [address] [place] [address] * POC GLUCOSE (07/04/2018 10:28 AM) Glucose, POC 144 (H) 70 - 100 MG/DL [facility] MAIN LAB Performing Organization Address City/[facility] [[email or web address]]code Phone Number [facility] MAIN LAB [address] [place] [address] * POC GLUCOSE (07/04/2018 9:31 AM) Glucose, POC 197 (H) 70 - 100 MG/DL [facility] MAIN LAB Performing Organization Address [facility] [[email or web address]]code Phone Number [facility] MAIN LAB [address] [place] [address] * POC GLUCOSE (07/04/2018 8:38 AM) Glucose, POC 184 (H) 70 - 100 MG/DL [facility] MAIN LAB Performing Organization Address [place]/[facility] [[email or web address]]code Phone Number [facility] MAIN LAB [address] [place] [address] * POC GLUCOSE (07/04/2018 7:29 AM) Glucose, POC 150 (H) 70 - 100 MG/DL [facility] MAIN LAB Performing Organization Address [facility] Phone Number [facility] MAIN LAB [address] [place] [address] * POC GLUCOSE (07/04/2018 6:31 AM) Glucose, POC 119 (H) 70 - 100 MG/DL [facility] MAIN LAB Performing Organization Address [facility] Phone Number [facility] MAIN LAB [address] [place] [address] * CBC (07/04/2018 5:47 AM) White Blood [...] MAIN LAB Specimen Blood Performing Organization Address [facility] [[email or web address]]code Phone Number MAIN LAB [address] [place] [address] * BASIC METABOLIC PANEL (07/04/2018 5:47 AM) [...] for questions. Specimen Blood Performing Organization Address City/[facility]/Zipcode Phone Number MAIN LAB [address] [place] [address] * POC GLUCOSE (07/04/2018 5:36 AM) Glucose, POC 126 (H) 70 - 100 MG/DL [facility] MAIN LAB Performing Organization Address City/[facility] [[email or web address]]code Phone Number MAIN LAB [address] [place] [address] * POC GLUCOSE (07/04/2018 4:36 AM) Glucose, POC 94 70 - 100 MG/DL [facility] MAIN LAB Performing Organization Address [facility] [[email or web address]]code Phone Number [facility] MAIN LAB [address] [place] [address] * POC GLUCOSE (07/04/2018 3:24 AM) Glucose, POC 120 (H) 70 - 100 MG/DL [facility] MAIN LAB Performing Organization Address [facility] [[email or web address]]code Phone Number MAIN LAB [address] [place] [address] * POC GLUCOSE (07/04/2018 2:14 AM) Glucose, POC 112 (H) 70 - 100 MG/DL [facility] MAIN LAB Performing Organization Address [facility] [[email or web address]]code Phone Number MAIN LAB [address] [place] [address] * POC GLUCOSE (07/04/2018 12:37 AM) Glucose, POC 126 (H) 70 - 100 MG/DL [facility] MAIN LAB Performing Organization Address [facility] [[email or web address]]code Phone Number MAIN LAB [address] [place] [address] * BLOOD TYPE CONFIRMATION - ORDER ONLY IF REQUESTED BY LAB (07/04/2018 12:13 AM) ABO/RH(D) O NEG MAIN LAB Specimen Blood Performing Organization Address [facility] [[email or web address]]code Phone Number MAIN LAB [address] [place] [address] * TYPE & CROSSMATCH (07/03/2018 11:48 PM) Units Ordered 1 MAIN LAB Crossmatch Expires 07/06/2018 MAIN LAB Record Check 2ND TYPE REQUIRED MAIN LAB ABO/RH(D) O NEG MAIN LAB Antibody Screen NEG MAIN LAB Electronic Crossmatch YES [facility] MAIN LAB Unit Number [id number] MAIN LAB Blood Component Type RBC,CPDA,LEUKO REDUCED MAIN LAB Unit Division 0 MAIN LAB Status OF Unit TRANSFUSED MAIN LAB Transfusion Status OK TO TRANSFUSE MAIN LAB Crossmatch Result COMPATIBLE,ELECTRONIC MAIN LAB Specimen Blood Performing Organization Address [facility] Phone Number MAIN LAB [address] [place] [address] * POC GLUCOSE (07/03/2018 11:21 PM) Glucose, POC 197 (H) 70 - 100 MG/DL [facility] MAIN LAB Performing Organization Address [facility] [[email or web address]]code Phone Number MAIN LAB [address] [place] [address] * POC GLUCOSE (07/03/2018 10:12 PM) Glucose, POC 218 (H) 70 - 100 MG/DL [facility] MAIN LAB Performing Organization Address [facility]/Zipcode Phone Number MAIN LAB [address] [place] [address] * HEMOGLOBIN (07/03/2018 10:02 PM) Hemoglobin 6.8 (L) 13.5 - 16.5 GM/DL [facility] MAIN LAB Specimen Blood Performing Organization Address City/State/Zipcode Phone Number MAIN LAB [address] [place] [address] * POC GLUCOSE (07/03/2018 9:19 PM) Glucose, POC 187 (H) 70 - 100 MG/DL [facility] MAIN LAB Performing Organization Address City/State/Zipcode Phone Number MAIN LAB [address] [place] [address] * POC GLUCOSE (07/03/2018 7:40 PM) Glucose, POC 113 (H) 70 - 100 MG/DL [facility] MAIN LAB Performing Organization Address City/State/Zipcode Phone Number MAIN LAB [address] [place] [address] * POC GLUCOSE (07/03/2018 6:37 PM) Glucose, POC 143 (H) 70 - 100 MG/DL [facility] MAIN LAB Performing Organization Address City/[facility]/Zipcode Phone Number MAIN LAB [address] [place] [address] * POC GLUCOSE (07/03/2018 5:31 PM) Glucose, POC 157 (H) 70 - 100 MG/DL MAIN LAB Performing Organization Address City/[facility]/Zipcode Phone Number MAIN LAB [address] [place] [address] * POC GLUCOSE (07/03/2018 4:35 PM) Glucose, POC 190 (H) 70 - 100 MG/DL [facility] MAIN LAB Performing Organization Address City/[facility]/Zipcode Phone Number MAIN LAB [address] [place] [address] * POC GLUCOSE (07/03/2018 3:36 PM) Glucose, POC 190 (H) 70 - 100 MG/DL MAIN LAB Performing Organization Address City/[facility]/Zipcode Phone Number MAIN LAB [address] [place] [address] * HEMOGLOBIN (07/03/2018 3:25 PM) Hemoglobin 7.2 (L) 13.5 - 16.5 GM/DL MAIN LAB Specimen Blood Performing Organization Address City/State/Zipcode Phone Number MAIN LAB [address] [place] [address] * POC GLUCOSE (07/03/2018 2:22 PM) Glucose, POC 176 (H) 70 - 100 MG/DL [facility] MAIN LAB Performing Organization Address [facility] [[email or web address]]code Phone Number [facility] MAIN LAB [address] [place] [address] * POC GLUCOSE (07/03/2018 1:24 PM) Glucose, POC 254 (H) 70 - 100 MG/DL [facility] MAIN LAB Performing Organization Address [facility] Phone Number [facility] MAIN [facility] [address] [place] [address] * POC GLUCOSE (07/03/2018 12:20 PM) Glucose, POC 307 (H) 70 - 100 MG/DL [facility] MAIN LAB Performing Organization Address [facility] Phone Number MAIN LAB [address] [place] [address] * POC GLUCOSE (07/03/2018 10:45 AM) Glucose, POC 268 (H) 70 - 100 MG/DL [facility] MAIN LAB Performing Organization Address [facility] Phone Number [facility] MAIN [facility] [address] [place] [address] * POC GLUCOSE (07/03/2018 9:22 AM) Glucose, POC 233 (H) 70 - 100 MG/DL MAIN LAB Performing Organization Address [facility] Phone Number MAIN LAB [address] [place] [address] * SWALLOW MOTION SERIES (07/03/2018 8:59 AM) [...] Number [facility] RAD RESULTS * POC GLUCOSE (07/03/2018 8:04 AM) Glucose, POC 156 (H) 70 - 100 MG/DL MAIN LAB Performing Organization Address City/[facility]/Zipcode Phone Number MAIN LAB [address] [place] [address] * ECG-SCAN (07/03/2018 7:35 AM) Narrative Performed At Ordered by an unspecified provider. * POC GLUCOSE (07/03/2018 5:03 AM) Glucose, POC 109 (H) 70 - 100 MG/DL [facility] MAIN LAB Performing Organization Address [facility] [[email or web address]]cowy Phone Number MAIN LAB [address] [place] [address] * CBC (07/03/2018 4:11 AM) White Blood [...] MAIN LAB Specimen Blood Performing Organization Address City/[facility] [[email or web address]]cowy Phone Number MAIN LAB [address] [place] [address] * BASIC METABOLIC PANEL (07/03/2018 4:11 AM) [...] City/State/Zipcode Phone Number [facility] MAIN [facility] [address] [place] [address] * POC GLUCOSE (07/03/2018 3:57 AM) Glucose, POC 132 (H) 70 - 100 MG/DL [facility] MAIN LAB Performing Organization Address City/State/Zipcode Phone Number MAIN LAB [address] [place] [address] * POC GLUCOSE (07/03/2018 3:06 AM) Glucose, POC 145 (H) 70 - 100 MG/DL [facility] MAIN LAB Performing Organization Address City/State/Zipcode Phone Number MAIN LAB [address] [place] [address] * POC GLUCOSE (07/03/2018 2:01 AM) Glucose, POC 154 (H) 70 - 100 MG/DL [facility] MAIN LAB Performing Organization Address City/State/Zipcode Phone Number MAIN LAB [address] [place] [address] * POC GLUCOSE (07/03/2018 1:05 AM) Glucose, POC 112 (H) 70 - 100 MG/DL MAIN LAB Performing Organization Address City/State/Zipcode Phone Number MAIN LAB [address] [place] [address] * POC GLUCOSE (07/03/2018 12:35 AM) Glucose, POC 98 70 - 100 MG/DL MAIN LAB Performing Organization Address City/State/Zipcode Phone Number MAIN LAB [address] [place] [address] * POC GLUCOSE (07/03/2018 12:13 AM) Glucose, POC 78 70 - 100 MG/DL [facility] MAIN LAB Performing Organization Address City/State/Zipcode Phone Number MAIN LAB [address] [place] [address] * POC GLUCOSE (07/02/2018 11:03 PM) Glucose, POC 102 (H) 70 - 100 MG/DL [facility] MAIN LAB Performing Organization Address City/State/Zipcode Phone Number MAIN LAB [address] [place] [address] * POC GLUCOSE (07/02/2018 9:56 PM) Glucose, POC 184 (H) 70 - 100 MG/DL [facility] MAIN LAB Performing Organization Address City/State/Zipcode Phone Number [facility] MAIN [facility] [address] [place] [address] * POC GLUCOSE (07/02/2018 9:36 PM) Glucose, POC 49 (LL) 70 - 100 MG/DL [facility] MAIN LAB Performing Organization Address City/State/Zipcode Phone Number MAIN LAB [address] [place] [address] * POC GLUCOSE (07/02/2018 9:32 PM) Glucose, POC 50 (L) 70 - 100 MG/DL [facility] MAIN LAB Performing Organization Address City/State/Zipcode Phone Number MAIN LAB [address] [place] [address] * POC GLUCOSE (07/02/2018 9:13 PM) Glucose, POC 59 (L) 70 - 100 MG/DL [facility] MAIN LAB Performing Organization Address City/[facility]/Zipcode Phone Number MAIN LAB [address] [place] [address] * POC GLUCOSE (07/02/2018 9:11 PM) Glucose, POC 58 (L) 70 - 100 MG/DL [facility] MAIN LAB Performing Organization Address City/[facility]/Zipcode Phone Number MAIN LAB [address] [place] [address] * POC GLUCOSE (07/02/2018 7:58 PM) Glucose, POC 121 (H) 70 - 100 MG/DL [facility] MAIN LAB Performing Organization Address City/[facility]/Zipcode Phone Number MAIN LAB [address] [place] [address] * POC GLUCOSE (07/02/2018 6:56 PM) Glucose, POC 162 (H) 70 - 100 MG/DL [facility] MAIN LAB Performing Organization Address City/[facility]/Zipcode Phone Number MAIN LAB [address] [place] [address] * POC GLUCOSE (07/02/2018 6:07 PM) Glucose, POC 180 (H) 70 - 100 MG/DL [facility] MAIN LAB Performing Organization Address City/State/Zipcode Phone Number MAIN LAB [address] [place] [address] * POC GLUCOSE (07/02/2018 4:52 PM) Glucose, POC 195 (H) 70 - 100 MG/DL [facility] MAIN LAB Performing Organization Address City/State/Zipcode Phone Number MAIN LAB [address] [place] [address] * POC GLUCOSE (07/02/2018 4:24 PM) Glucose, POC 204 (H) 70 - 100 MG/DL [facility] MAIN LAB Performing Organization Address City/State/Zipcode Phone Number MAIN LAB [address] [place] [address] * POC GLUCOSE (07/02/2018 3:09 PM) Glucose, POC 212 (H) 70 - 100 MG/DL [facility] MAIN LAB Performing Organization Address City/State/Zipcode Phone Number MAIN LAB [address] [place] [address] * POC GLUCOSE (07/02/2018 2:13 PM) Glucose, POC 204 (H) 70 - 100 MG/DL [facility] MAIN LAB Performing Organization Address City/State/Zipcode Phone Number MAIN LAB [address] [place] [address] * POC GLUCOSE (07/02/2018 12:59 PM) Glucose, POC 235 (H) 70 - 100 MG/DL [facility] MAIN LAB Performing Organization Address City/[facility]/Zipcode Phone Number MAIN LAB [address] [place] [address] * POC GLUCOSE (07/02/2018 12:02 PM) Glucose, POC 244 (H) 70 - 100 MG/DL [facility] MAIN LAB Performing Organization Address City/State/Zipcode Phone Number MAIN LAB [address] [place] [address] * POC GLUCOSE (07/02/2018 11:10 AM) Glucose, POC 229 (H) 70 - 100 MG/DL MAIN LAB Performing Organization Address City/State/Zipcode Phone Number MAIN LAB [address] [place] [address] * ABDOMEN AP ONLY (07/02/2018 10:20 AM) Impressions Performed At Indwelling enteric catheter. RAD RESULTS Approved by Robby Devi M.D. [...] on 07/02/2018 11:09 AM. Performing Organization Address City/State/[facility] [[email or web address]]code Phone Number RAD RESULTS * POC GLUCOSE (07/02/2018 10:14 AM) Glucose, POC 212 (H) 70 - 100 MG/DL [facility] MAIN LAB Performing Organization Address City/[facility] [[email or web address]]code Phone Number [place] MAIN LAB [address] [place] [address] * POC GLUCOSE (07/02/2018 9:22 AM) Glucose, POC 209 (H) 70 - 100 MG/DL [facility] MAIN LAB Performing Organization Address City/State/Zipcode Phone Number [place] MAIN LAB [address] [place] [address] * POC GLUCOSE (07/02/2018 8:04 AM) Glucose, POC 186 (H) 70 - 100 MG/DL [facility] MAIN LAB Performing Organization Address City/[facility] [[email or web address]]code Phone Number [place] MAIN LAB [address] [place] [address] * POC GLUCOSE (07/02/2018 6:05 AM) Glucose, POC 142 (H) 70 - 100 MG/DL [facility] MAIN LAB Performing Organization Address City/[facility] [[email or web address]]code Phone Number MAIN LAB [address] [place] [address] * POC GLUCOSE (07/02/2018 5:00 AM) Glucose, POC 125 (H) 70 - 100 MG/DL [facility] MAIN LAB Performing Organization Address City/[facility] [[email or web address]]code Phone Number MAIN LAB [address] [place] [address] * PHOSPHORUS (07/02/2018 4:15 AM) Phosphorus 2.6 2.0 - 4.0 MG/DL MAIN LAB Specimen Blood Performing Organization Address City/[facility] [[email or web address]]code Phone Number MAIN LAB [address] [place] [address] * MAGNESIUM (07/02/2018 4:15 AM) Magnesium 1.9 1.6 - 2.6 mg/dL MAIN LAB Specimen Blood Performing Organization Address City/[facility] [[email or web address]]code Phone Number MAIN LAB [address] [place] [address] * IONIZED CALCIUM (07/02/2018 4:15 AM) Ionized Calcium 1.14 1.0 - 1.3 MMOL/L MAIN LAB Specimen Blood Performing Organization Address [facility] [[email or web address]]cowy Phone Number MAIN LAB [address] [place] [address] * CULTURE-BLOOD W/SENSITIVITY (07/02/2018 4:15 AM) Battery Name BLOOD CULTURE MAIN LAB Specimen Description BLOOD MAIN LAB RIGHT RADIAL ARTERIAL Special Requests NONE [facility] MAIN LAB Culture NO GROWTH 5 DAYS [facility] MAIN LAB Report Status FINAL MAIN LAB 07/08/2018 Specimen Blood Performing Organization Address City/[facility] [[email or web address]]code Phone Number MAIN LAB [address] [place] [address] * CBC (07/02/2018 4:15 AM) White Blood Cells 10.3 4.5 - 11.0 K/UL MAIN LAB RBC 3.17 (L) 4.4 - 5.5 M/UL MAIN LAB Hemoglobin 8.8 (L) 13.5 - 16.5 GM/DL [facility] MAIN LAB Hematocrit 28.2 (L) 40 - 50 % [facility] MAIN LAB MCV 88.8 80 - 100 FL [facility] MAIN LAB MCH 27.8 26 - 34 PG [facility] MAIN LAB MCHC 31.3 (L) 32.0 - 36.0 G/DL MAIN LAB RDW 14.0 11 - 15 % [facility] MAIN LAB Platelet Count 401 (H) 150 - 400 K/UL [facility] MAIN LAB MPV 8.9 7 - 11 FL MAIN LAB Specimen Blood Performing Organization Address City/[facility]/Zipcode Phone Number MAIN LAB [address] [place] [address] * BASIC METABOLIC PANEL (07/02/2018 4:15 AM) [...] for questions. Specimen Blood Performing Organization Address City/[facility]/Zipcode Phone Number MAIN LAB [address] [place] [address] * POC GLUCOSE (07/02/2018 4:00 AM) Glucose, POC 129 (H) 70 - 100 MG/DL [facility] MAIN LAB Performing Organization Address City/[facility]/Zipcode Phone Number MAIN LAB [address] [place] [address] * POC GLUCOSE (07/02/2018 3:06 AM) Glucose, POC 116 (H) 70 - 100 MG/DL [facility] MAIN LAB Performing Organization Address City/[facility]/Zipcode Phone Number MAIN LAB [address] [place] [address] * POC GLUCOSE (07/02/2018 2:02 AM) Glucose, POC 113 (H) 70 - 100 MG/DL [facility] MAIN LAB Performing Organization Address City/[facility]/Zipcode Phone Number MAIN LAB [address] [place] [address] * POC GLUCOSE (07/02/2018 1:12 AM) Glucose, POC 147 (H) 70 - 100 MG/DL [facility] MAIN LAB Performing Organization Address City/State/Zipcode Phone Number MAIN LAB [address] [place] [address] * POC GLUCOSE (07/02/2018 12:05 AM) Glucose, POC 155 (H) 70 - 100 MG/DL [facility] MAIN LAB Performing Organization Address City/[facility]/Zipcode Phone Number MAIN LAB [address] [place] [address] * POC GLUCOSE (07/01/2018 11:03 PM) Glucose, POC 128 (H) 70 - 100 MG/DL MAIN LAB Performing Organization Address City/[facility] [[email or web address]]code Phone Number MAIN LAB [address] [place] [address] * POC GLUCOSE (07/01/2018 10:07 PM) Glucose, POC 208 (H) 70 - 100 MG/DL [facility] MAIN LAB Performing Organization Address City/[facility] [[email or web address]]code Phone Number MAIN LAB [address] [place] [address] * POC GLUCOSE (07/01/2018 9:18 PM) Glucose, POC 184 (H) 70 - 100 MG/DL MAIN LAB Performing Organization Address City/[facility]/Zipcode Phone Number MAIN LAB [address] [place] [address] * MRI HEAD WO CONTRAST (07/01/2018 9:10 [...] changes. Major vascular flow voids of the [place] and dural venous sinuses are preserved. There is adventist of flow void in the right M1 [...] changes. Major vascular flow voids of the [place] and dural venous sinuses are preserved. There is adventist of flow void in the right M1 [...] noted to be occluded. Performing Organization Address City/[facility] [[email or web address] Phone Number RAD RESULTS * POC GLUCOSE (07/01/2018 8:07 PM) Glucose, POC 184 (H) 70 - 100 MG/DL [facility] MAIN LAB Performing Organization Address City/[facility] [[email or web address]]code Phone Number [place] MAIN LAB [address] [place] [address] * POC GLUCOSE (07/01/2018 6:59 PM) Glucose, POC 190 (H) 70 - 100 MG/DL [facility] MAIN LAB Performing Organization Address [facility] [[email or web address]]code Phone Number [place] MAIN LAB [address] [place] [address] * POC GLUCOSE (07/01/2018 6:03 PM) Glucose, POC 169 (H) 70 - 100 MG/DL [facility] MAIN LAB Performing Organization Address City/[facility] [[email or web address]]code Phone Number [place] MAIN LAB [address] [place] [address] * POC GLUCOSE (07/01/2018 5:10 PM) Glucose, POC 154 (H) 70 - 100 MG/DL [facility] MAIN LAB Performing Organization Address [facility] [[email or web address]]code Phone Number [place] MAIN LAB [address] [place] [address] * POC GLUCOSE (07/01/2018 4:04 PM) Glucose, POC 195 (H) 70 - 100 MG/DL [facility] MAIN LAB Performing Organization Address City/[facility] [[email or web address]]code Phone Number [facility] [address] [place] [address] * BLOOD GASES, ARTERIAL (07/01/2018 3:06 PM) pH-Arterial 7.34 (L) 7.35 - 7.45 [facility] MAIN LAB pCO2-Arterial 39 35 - 45 MMHG [facility] MAIN LAB pO2-Arterial 102 (H) 80 - 100 MMHG [facility] MAIN LAB Base Deficit-Arterial 4.6 MMOL/L [facility] MAIN LAB O2 Sat-Arterial 97.5 95 - 99 % [facility] Tqygcvzndjr-SQU-Xoj 20.6 (L) 21 - 28 MMOL/L [facility] Specimen Blood, arterial - Blood Performing Organization Address [facility] [[email or web address]]cowy Phone Number [facility] [address] [place] [address] * POC GLUCOSE (07/01/2018 3:05 PM) Glucose, POC 195 (H) 70 - 100 MG/DL [facility] MAIN LAB Performing Organization Address [facility] Phone Number [facility] [address] [place] [address] * CT HEAD WO CONTRAST (07/01/2018 2:46 [...] PM. Performing Organization Address City/State/Zipcode Phone Number RAD RESULTS * 2-D + DOPPLER ECHOCARDIOGRAM [...] 72.37 % OTHER OUTSIDE LAB AV index ([place]) 0.56 OTHER OUTSIDE LAB E/A ratio 1.35 OTHER OUTSIDE LAB E/E' ratio 10.67 OTHER OUTSIDE LAB CV ECHO PV PARKING INSPECTOR Yasir, RN OTHER OUTSIDE LAB LV mass 118.49 96 - 200 g OTHER OUTSIDE LAB RWT 0.36 <=0.42 OTHER OUTSIDE LAB TV rest pulmonary artery 22 mmHg OTHER OUTSIDE LAB pressure Right Heart Systolic TDI 0.110 m/s OTHER OUTSIDE LAB S' Cardiology Ultrasound Siemens [id number] OTHER OUTSIDE LAB Machine ECHO EF 60 [...] LAB 07/07/2018 Specimen Blood Performing Organization Address City/State/Zipcode Phone Number [facility] MAIN [facility] [address] [place] [address] * POC GLUCOSE (07/01/2018 1:02 PM) Glucose, POC 169 (H) 70 - 100 MG/DL [facility] MAIN LAB Performing Organization Address [facility]/Zipcode Phone Number [facility] MAIN LAB [address] [place] [address] * UA REFLEX CULTURE LABEL (07/01/2018 12:53 PM) UA Reflex Culture LAB LABEL [facility] MAIN LAB Specimen Urine Performing Organization Address [facility] [[email or web address]]code Phone Number [facility] MAIN LAB [address] [place] [address] * URINALYSIS MICROSCOPIC REFLEX TO CULTURE (07/01/2018 [...] MAIN LAB Specimen Urine Performing Organization Address [facility] [[email or web address]]cowy Phone Number [facility] MAIN [facility] [address] [place] [address] * URINALYSIS DIPSTICK REFLEX TO CULTURE (07/01/2018 12:53 PM) Color,UA STRAW [facility] MAIN LAB Turbidity,UA CLEAR CLEAR-CLEAR [facility] MAIN LAB Specific [place]-Urine 1.018 1.003 - 1.035 K[facility] MAIN LAB [...] MAIN LAB Specimen Urine Performing Organization Address [facility] [[email or web address]]code Phone Number [facility] MAIN [facility] [address] [place] [address] * LACTIC ACID(LACTATE) (07/01/2018 12:50 PM) Lactic Acid 1.5 0.5 - 2.0 MMOL/L [facility] MAIN LAB Performing Organization Address [facility] [[email or web address]]cowy Phone Number [facility] MAIN [facility] [address] [place] [address] * BETA HYDROXYBUTYRATE (KETONES) (07/01/2018 12:50 PM) Beta Hydroxybutyrate 0.1 <0.3 MMOL/L [facility] MAIN LAB Comment: Beta hydroxybutyrate (BOHB) is the most abundant ketone (78%), followed by acetoacetate (20%) and acetone (2%).Measurement BOHB is recommended to assess ketones in DKA. Expected BOHB Results for DKA: Initial presentation high/increasing During treatment decreasing Resolved decreasing/normal Performing Organization Address City/[facility] [[email or web address]]cowy Phone Number MAIN LAB [address] [phone] * LACTIC ACID (BG - RAPID LACTATE) (07/01/2018 12:50 PM) Lactic Acid,BG 1.5 0.5 - 2.0 MMOL/L [facility]IN [facility] Specimen Blood Performing Organization Address [facility] [[email or web address]]cowy Phone Number [facility] MAIN [facility] [address] [place] [address] * CBC AND DIFF (07/01/2018 12:50 PM) [...] MAIN LAB Specimen Blood Performing Organization Address [facility] [[email or web address]]cowy Phone Number [facility] [address] [place] [address] * IONIZED CALCIUM (07/01/2018 12:50 PM) Ionized Calcium 1.14 1.0 - 1.3 MMOL/L MAIN LAB Specimen Blood Performing Organization Address [facility] [[email or web address]]cowy Phone Number MAIN LAB [address] [place] [address] * PHOSPHORUS (07/01/2018 12:50 PM) Phosphorus 2.6 2.0 - 4.0 MG/DL [facility]IN [facility] Specimen Blood Performing Organization Address [facility] Phone Number MAIN LAB [address] [place] [address] * MAGNESIUM (07/01/2018 12:50 PM) Magnesium 2.0 1.6 - 2.6 mg/dL [facility]IN [facility] Specimen Blood Performing Organization Address [facility] Phone Number [facility] [address] [place] [address] * LIPID PROFILE (07/01/2018 12:50 PM) Cholesterol [...] 130 mg/dL. Specimen Blood Performing Organization Address [facility] [[email or web address]]code Phone Number MAIN LAB [address] [place] [address] * COMPREHENSIVE METABOLIC PANEL (07/01/2018 12:50 PM) [...] for questions. Specimen Blood Performing Organization Address City/[facility]/Zipcode Phone Number MAIN LAB [address] [place] [address] * HEMOGLOBIN A1C (07/01/2018 12:50 PM) Hemoglobin A1C 17.4 (H) 4.0 - 6.0 % [facility] Comment: The ADA recommends that most patients with type 1 and type 2 diabetes maintain an A1c level <7%. Specimen Blood Performing Organization Address City/[facility]/Zipcode Phone Number MAIN LAB [address] [place] [address] * IR ARTERIOGRAM NEURO (07/01/2018 12:29 PM) [...] Fentanyl 25 mcg Contrast - 100 cc [id number] Total mGy - 421 Anesthesia:conscious sedation Consent [...] the sheath was advanced over a 5 Barbadian 125 cm Vert catheter over a 180 cm 0.035 [place] wire over the aortic arch and into [...] therefore, hemostasis was achieved using an 8 Barb[place] Angioseal closure device followed by manual pressure [...] Fentanyl 25 mcg Contrast - 100 cc [id number] Total mGy - 421 Anesthesia: conscious sedation [...] the sheath was advanced over a 5 Barbadian 125 cm Vert catheter over a 180 cm 0.035 [place] wire over the aortic arch and into [...] therefore, hemostasis was achieved using an 8 [place] Angioseal closure device followed by manual pressure [...] teamat 11:51 AM on 07/01/2018 by the president college or [employer] in consultation with TALIA BOSTON M.D.. Approved [...] at 11:51 AM on 07/01 by the president college or [employer] in consultation with TALIA BOSTON M.D.. Approved [...] teamat 11:51 AM on 07/01/2018 by the president college or [employer] in consultation with TALIA BOSTON M.D.. Approved [...] at 11:51 AM on 07/01 by the president college or [employer] in consultation with TALIA BOSTON M.D.. Approved [...] teamat 11:51 AM on 07/01/2018 by the president college or [employer] in consultation with TALIA BOSTON M.D.. Approved [...] at 11:51 AM on 07/01 by the president college or [employer] in consultation with TALIA BOSTON M.D.. Approved [...] 1756, Constipation [place], Hold for loose stools heparin (porcine) PF [...] , , administer 6 units insulin, at , 03* administer 5 units. -POC glucose >400mg/dL [...] TWICE DAILY, First dose on 08:43 CDT 07/03/18 at 1445, Until Discontinued Given 07/08/2018 25 [...]
--- OUTSIDE RECORDS SUMMARY | 2018-08-01 14:55 | XMS REPORT | Encounter Summary ---
Author Author [facility] Organization [facility] Address Unknown Phone Unavailable Care Team Providers Care Hydro Sprayer Operator Name Role Phone Damien Caceres MD Unavailable Melo Adame MD Unavailable Unavailable Alvarez Ozuna NP PCP Hilary Davenport RN Unavailable Unavailable Encounter Details Date Type Department Care Team Description 07/01/2018 Procedure [id number] [place] [address] Social History Tobacco Use Types Packs/Day Years Used Date Former Smoker Cigars 2 20 Quit: 10/20/2011 Smokeless Tobacco: Never Used Alcohol Use Drinks/Week oz/Week Comments No Sex Assigned at Date Recorded Not on file as of this encounter Plan of Treatment Not on fileas of this encounter Visit Diagnoses Not on filein this encounter
--- OUTSIDE RECORDS SUMMARY | 2018-08-01 14:55 | XMS REPORT | Encounter Summary ---
Author Author [facility] Organization [facility] Address Unknown Phone Unavailable Care Team Providers Care Cane Loader Name Role Phone Damien Caceres MD Unavailable Melo Adame MD Unavailable Unavailable Alvarez Ozuna NP PCP Hilary Davenport RN Unavailable Unavailable Encounter Details Date Type Department Care Team Description 07/01/2018 Procedure Pass CA[address] [place] [address] Social History Tobacco Use Types Packs/Day Years Used Date Former Smoker Cigars 2 20 Quit: 10/20/2011 Smokeless Tobacco: Never Used Alcohol Use Drinks/Week oz/Week Comments No Sex Assigned at Date Recorded Not on file as of this encounter Plan of Treatment Not on fileas of this encounter Visit Diagnoses Not on filein this encounter
--- OUTSIDE RECORDS SUMMARY | 2018-08-01 14:56 | XMS REPORT | Encounter Summary ---
Author Author [facility] Organization [facility] Address Unknown Phone Unavailable Care Team Providers Care Log Operations Coordinator Name Role Phone Damien Caceres MD Unavailable Melo Adame MD Unavailable Unavailable Alvarez Ozuna NP PCP Hilary Davenport RN Unavailable Unavailable Encounter Details Date Type Department Care Team Description 07/01/2018 Procedure [facility] CA[address] [place] [address] Social History Tobacco Use Types Packs/Day Years Used Date Former Smoker Cigars 2 20 Quit: 10/20/2011 Smokeless Tobacco: Never Used Alcohol Use Drinks/Week oz/Week Comments No Sex Assigned at Date Recorded Not on file as of this encounter Plan of Treatment Not on fileas of this encounter Visit Diagnoses Not on filein this encounter
--- OUTSIDE RECORDS SUMMARY | 2018-08-01 14:56 | XMS REPORT ---
Author Author LULU JARAMILLO [facility] Address [address] [place] [address] Care Team Providers Care Receptionist Clerk Name Role Phone LULU JARAMILLO Unavailable PROBLEMS ALLERGIES No Information ENCOUNTERS IMMUNIZATIONS No Known Immunizations SOCIAL HISTORY No smoking Hx information available REASON FOR VISIT PLAN OF CARE VITAL SIGNS MEDICATIONS Unknown Medications RESULTS No Results PROCEDURES No Known procedures INSTRUCTIONS MEDICATIONS ADMINISTERED No Known Medications MEDICAL (GENERAL) HISTORY
== END 2018-08-01 08:56 | disposition home or self-care (01) ==
LOC: EDUNIT# 06:35 → ER 06:38
DX: N39.0 Urinary tract infection, site not specified (principal); E11.65 Type 2 diabetes mellitus with hyperglycemia; R05 Cough; R50.9 Fever, unspecified; E78.00 Pure hypercholesterolemia, unspecified; I10 Essential (primary) hypertension; E11.42 Type 2 diabetes mellitus with diabetic polyneuropathy; F41.9 Anxiety disorder, unspecified; F32.9 Major depressive disorder, single episode, unspecified; Z85.46 Personal history of malignant neoplasm of prostate; Z82.49 Family history of ischemic heart disease and other diseases of the circulatory system; Z87.19 Personal history of other diseases of the digestive system; Z86.73 Personal history of transient ischemic attack (TIA), and cerebral infarction without residual deficits; Z79.4 Long term (current) use of insulin; Z87.891 Personal history of nicotine dependence; Z90.79 Acquired absence of other genital organ(s)
CPT/HCPCS: 36415; 71045; 80053; 81000; 82962; 83605; 85025; 85610; 85730; 86141; 87040; 87077; 87088; 87186; 87804

== ENCOUNTER 2018-08-08 20:22 | Emergency (ER) | payer MEDICARE ==
[~2018-08-08] VITALS: Ht 167.6 cm; Wt 60.8 kg
[~2018-08-08 20:22] MED LIST changes: +NITR-65 PO; +ONDA4TAB8 SL
--- OUTSIDE RECORDS SUMMARY | 2018-08-08 20:30 | XMS REPORT | Clinical Summary ---
Author Author [facility] Organization [facility] Address Unknown Phone Unavailable Care Team Providers Care Preparation Center Coordinator Name Role Phone Damien Caceres MD Unavailable Melo Adame MD Unavailable Unavailable Lulu Ozuna NP PCP Hilary Davenport RN Unavailable Unavailable Source Comments Some departments are not documenting in the electronic medical record. If you do not see the information that you expected, contact Release of Information in the Health Information Management department at [phone] for further assistance in locating additional records.[facility] Allergies No Known Allergies Current Medications [...] by mouth 07/09/20 Active tablet daily. 18 Active Problems Problem Noted Date Diabetic ketoacidosis without coma ([facility]) 07/13/2018 Acute blood loss anemia 07/13/2018 Leukocytosis 07/13/2018 Normocytic anemia 07/13/2018 Overweight (BMI 25.0-29.9) 07/13/2018 Urinary retention 07/13/2018 Anemia of chronic disease 07/03/2018 Agitation 07/03/2018 Stroke ([facility]) 07/01/2018 Overview: R M1 occlusion, successful thrombectomy on 07/01/18 (TICI 3) HTN (hypertension) 01/15/2016 Urinary retention with incomplete bladder emptying 01/15/2016 Diabetes ([facility]) 01/15/2016 Proliferative diabetic retinopathy(362.02) 01/14/2013 Last [...] Problems Problem Noted Date Resolved Date Sepsis ([facility]) 01/15/2016 01/17/2016 Severe sepsis ([facility]) 01/15/2016 01/17/2016 LATISHA (acute kidney injury) ([facility]) 01/15/2016 01/17/2016 High anion gap metabolic acidosis 01/15/2016 01/17/2016 Encounters Date Type Specialty Care Team Description 07/08/2018 Anesthesia Hannah Arias, PROSPECTING DRILLER Event 07/08/2018 Procedure Pass 07/08/2018 Surgery Huang Carolina MD ESOPHAGOGASTRODUODENOSCOP Y 07/01/2018 [facility] Diego Gutierrez MD Stroke ([facility]) - Encounter Shanna Ward MD 07/09/2018 [...] 07/08/2028 07/08/2018 SCREENING Implants Implanted Type Area Roll On Man Device Expiration Model / Identifier Date Serial / Lot Device Closure 70cm 8fr .038in Right: TERUMO:TERUMO 02/16/2019 [id number] / Angio-Seal Vip [employer]-Plus - Sn/A Femoral MED N/A / Implanted: Qty: 1 on 07/01/2018 by Artery [id number] Lulu Perry MD Procedures Procedure Name Priority [...] Address City/State/Zipcode Phone Number MAIN LAB [address] [place] [address] * CBC AND DIFF (07/09/2018 5:47 AM) [...] City/State/Zipcode Phone Number [facility] [address] [place] [address] * COMPREHENSIVE METABOLIC PANEL (07/09/2018 5:47 AM) [...] ALT (SGPT) 21 7 - 56 U/L MAIN LAB Anion [...] for questions. Specimen Blood Performing Organization Address [facility] Phone Number [facility] [address] [place] [address] * CULTURE-BLOOD W/SENSITIVITY (07/08/2018 10:25 PM) Only the most recent of 4 results within the time period is included. Battery Name BLOOD CULTURE MAIN LAB Specimen Description BLOOD MAIN LAB LEFT HAND Special Requests NONE MAIN LAB Culture NO GROWTH 5 DAYS MAIN LAB Report Status FINAL [facility] 07/14/2018 Specimen Blood Performing Organization Address [facility] Phone Number [facility] [address] [place] [phone] * SURGICAL PATHOLOGY (07/08/2018 4:34 PM) PATHOLOGY REPORT [facility] [email or web address] Department of Pathology and Laboratory Medicine [address] [place] [address] Surgical Pathology Office:[phone] :[phone] SURGICAL PATHOLOGY REPORT NAME: VALDEZ ANTHONY SURG PATH #: [id number] MR #: [id number] SPECIMEN CLASS: SR BILLING #: [id number] ALT ID #:LOCATION: DISCHARGED DATE OF PROCEDURE: [...] MAIN LAB Specimen Urine Performing Organization Address [facility] Phone Number [facility] [address] [place] [address] * URINALYSIS MICROSCOPIC REFLEX TO CULTURE (07/08/2018 [...] will follow. Specimen Urine Performing Organization Address [facility] Phone Number [facility] [address] [place] [address] * URINALYSIS DIPSTICK REFLEX TO CULTURE (07/08/2018 4:09 PM) Only the most recent of 3 results within the time period is included. Color,UA STRAW [facility] Turbidity,UA CLEAR CLEAR-CLEAR [facility] Specific [place]-Urine 1.005 1.003 - 1.035 [facility] MAIN LAB [...] MAIN LAB Specimen Urine Performing Organization Address [facility] Phone Number [facility] [address] [place] [address] * CHEST SINGLE VIEW (07/08/2018 2:15 PM) [...] RESULTS Procedure Date: 07/08/2018 10:48 AM CSN: [id number] Date of : 1960 Gender: Male Attending Physician: Huang Carolina MD Procedure: Upper GI endoscopy Indications: Anemia (Mixed picture of anemia of chronic disease + Iron deficiency anemia), new onset of Afib and not on AC. Providers: Huang Carolina MD (Doctor), Roberto Dutta MD (Fellow), Alvaro Banegas (Nurse), Minna Jiménez RN (Nurse), Abisai Burden, Carrier Packer (Carrier Packer) Referring Physician: Referral Self Medications: Monitored Anesthesia [...] 55 seconds Procedure Code(s): --- Professional --- 51484, Esophagogastroduodenoscopy, flexible, transoral; with biopsy, single or multiple Diagnosis Code(s): --- Professional --- K44.9, Diaphragmatic hernia without obstruction or gangrene K31.89, Other diseases of stomach and duodenum D50.0, Iron deficiency anemia secondary to blood loss (chronic) CPT copyright 2016 [employer]. All rights reserved. The codes documented in this report are preliminary and upon inpatient coder review may be revised to meet [...] RESULTS Procedure Date: 07/08/2018 10:47 AM CSN: [id number] Date of : 1960 Gender: Male Attending Physician: Huang Carolina MD Procedure: Colonoscop y Indications: Anemia (Mixed picture of anemia of chronic disease + Iron deficiency anemia), new onset of Afib and not on AC. Providers: Huang Carolina MD (Doctor), Roberto Dutta MD (Fellow), Alvaro Banegas (Nurse), Minna Jiménez RN (Nurse), Abisai Burden, Carrier Packer (Carrier Packer) Referring Physician: Gerard Salazar MD Medications: Monitored [...] 15 seconds Procedure Code(s): --- Professional --- 61024, Colonoscopy, flexible; diagnostic, including collection of specimen(s) by brushing or washing, when performed (separate procedure) Diagnosis Code(s): --- Professional --- D50.0, Iron deficiency anemia secondary to blood loss (chronic) CPT copyright 2016 [employer]. All rights reserved. The codes documented in this report are preliminary and upon inpatient coder review may be revised to meet current compliance requirements. Attending Participation: I was present and participated during the entire procedure, including non-jacobs portions. MD Huang De Oliveira MD 07/08/2018 1:28:26 PM The attending physician has electronically signed and finalized this document. Roberto Dutta MD Number of Addenda: 0 Note Initiated On: 07/08/2018 10:47 AM Performing Organization Address [facility] Phone Number JUDIE OTHER RESULTS * PROCALCITONIN (07/08/2018 5:53 AM) Procalcitonin 0.13 (H) <0.10 NG/ML [facility]IN [facility] Performing Organization Address [facility] Phone Number MAIN LAB [address] [place] [address] * HEMOGLOBIN (07/07/2018 5:45 AM) Only the most recent of 10 results within the time period is included. Hemoglobin 9.5 (L) 13.5 - 16.5 GM/DL MAIN LAB Comment: Corrected on 07/09 AT 1021: previously reported as DUPLICATE ORDER, Corrected on 07/07 AT 0811: previously reported as 9.5 Specimen Blood Performing Organization Address [facility] Phone Number MAIN LAB [address] [place] [address] * OCCULT BLOOD NON COLON CANCER SCREEN (07/06/2018 10:45 PM) Battery Name OCCULT BLOOD SCREEN MAIN LAB Specimen Description FECES MAIN LAB Special Requests NONE MAIN LAB Occult Blood NEGATIVE [facility] MAIN [facility] Report Status FINAL MAIN LAB 07/06/2018 Specimen Stool - Feces Performing Organization Address [facility] Phone Number MAIN LAB [address] [place] [address] * CBC (07/06/2018 4:27 AM) Only the [...] LAB MCHC 34.4 32.0 - 36.0 G/DL [facility] RDW 14.2 11 - 15 % MAIN LAB Platelet Count 487 (H) 150 - 400 K/UL [facility] MPV 8.6 7 - [address] [facility] Specimen Blood Performing Organization Address City/[facility]/Zipcode Phone Number [facility] [address] [place] [address] * BASIC METABOLIC PANEL (07/06/2018 4:27 AM) Only the most recent of 5 results within the time period is included. Sodium 138 137 - 147 MMOL/L MAIN LAB Potassium 3.8 3.5 - 5.1 MMOL/L [facility] Chloride 103 98 - 110 MMOL/L [facility] CO2 26 21 - 30 MMOL/L [facility] Anion Gap 9 3 - 12 MAIN LAB Glucose 146 (H) 70 - 100 MG/DL [facility] Blood Urea Nitrogen 9 7 - 25 MG/DL [facility] Creatinine 1.18 0.4 - 1.24 MG/DL [facility] Calcium 8.5 8.5 - 10.6 MG/DL [facility] eGFR Non >60 >60 mL/min [facility] Comment: The eGFR is not validated for use in drug dosing adjustments.Continue to use estimated creatinine clearance per dosing reference text.Please contact the Clinical Pharmacist for questions. eGFR >60 >60 mL/min [facility] Comment: The eGFR is not validated for use in drug dosing adjustments.Continue to use estimated creatinine clearance per dosing reference text.Please contact the Clinical Pharmacist for questions. Specimen Blood Performing Organization Address City/[facility]/Zipcode Phone Number [facility] [address] [place] [address] * CULTURE-URINE W/SENSITIVITY (07/05/2018 6:45 PM) Battery Name URINE CULTURE [facility] Specimen Description URINE [facility] Special Requests NONE [facility] Culture NO GROWTH MAIN LAB Report Status FINAL [facility] 07/06/2018 Specimen Urine Performing Organization Address City/State/Zipcode Phone Number [facility] [address] [place] [address] * ABDOMEN AP ONLY (07/05/2018 9:20 AM) [...] AM. Performing Organization Address City/State/Zipcode Phone Number [facility] RAD RESULTS * IRON + BINDING CAPACITY + %SAT+ FERRITIN (07/04/2018 2:20 PM) Iron 49 (L) 50 - 185 MCG/DL [facility] Iron Binding-TIBC 212 (L) 270 - 380 MCG/DL [facility]IN [facility] % Saturation 23 (L) 28 - 42 % [facility] Ferritin 383 (H) 30 - 300 NG/ML [facility]IN [facility] Specimen Blood Performing Organization Address [facility] Phone Number MAIN LAB [address] [place] [address] * BLOOD TYPE CONFIRMATION - ORDER ONLY IF REQUESTED BY LAB (07/04/2018 12:13 AM) ABO/RH(D) O NEG MAIN LAB Specimen Blood Performing Organization Address [facility] Phone Number MAIN LAB [address] [place] [address] * TYPE & CROSSMATCH (07/03/2018 11:48 PM) Units Ordered 1 MAIN LAB Crossmatch Expires 07/06/2018 MAIN LAB Record Check 2ND TYPE REQUIRED MAIN LAB ABO/RH(D) O NEG MAIN LAB Antibody Screen NEG MAIN LAB Electronic Crossmatch YES [facility]IN [facility] Unit Number [id number] MAIN LAB Blood Component Type RBC,CPDA,LEUKO REDUCED MAIN LAB Unit Division 0 MAIN LAB Status OF Unit TRANSFUSED MAIN LAB Transfusion Status OK TO TRANSFUSE MAIN LAB Crossmatch Result COMPATIBLE,ELECTRONIC MAIN LAB Specimen Blood Performing Organization Address [facility] Phone Number MAIN LAB [address] [place] [address] * SWALLOW MOTION SERIES (07/03/2018 8:59 AM) [...] on 07/03/2018 9:08 AM. Performing Organization Address [facility] Phone Number RAD RESULTS * ECG-SCAN (07/03/2018 7:35 AM) Narrative Performed At Ordered by an unspecified provider. * PHOSPHORUS (07/02/2018 4:15 AM) Only the most recent of 2 results within the time period is included. Phosphorus 2.6 2.0 - 4.0 MG/DL MAIN LAB Specimen Blood Performing Organization Address City/[facility]/Zipcode Phone Number MAIN LAB [address] [place] [address] * MAGNESIUM (07/02/2018 4:15 AM) Only the most recent of 2 results within the time period is included. Magnesium 1.9 1.6 - 2.6 mg/dL [facility]IN [facility] Specimen Blood Performing Organization Address City/[facility]/Zipcode Phone Number MAIN LAB [address] [place] [address] * IONIZED CALCIUM (07/02/2018 4:15 AM) Only the most recent of 2 results within the time period is included. Ionized Calcium 1.14 1.0 - 1.3 MMOL/L MAIN LAB Specimen Blood Performing Organization Address [facility] Phone Number MAIN LAB [address] [place] [address] * MRI HEAD WO CONTRAST (07/01/2018 9:10 [...] the posterior medial left temporal lobe. 3. [place] of flow void within the right M1 [...] changes. Major vascular flow voids of the [place] and dural venous sinuses are preserved. There is latter-day of flow void in the right M1 [...] changes. Major vascular flow voids of the [place] and dural venous sinuses are preserved. There is latter-day of flow void in the right M1 [...] the posterior medial left temporal lobe. 3. [place] of flow void within the right M1 [...] 95 - 99 % [facility] MAIN [facility] Tppdceaydcv-WCP-Hix 20.6 (L) 21 - 28 MMOL/L [facility]IN [facility] Specimen Blood, arterial - Blood Performing Organization Address City/State/Zipcode Phone Number MAIN LAB [address] [place] [address] * CT HEAD WO CONTRAST (07/01/2018 2:46 [...] 72.37 % OTHER OUTSIDE LAB AV index ([place]) 0.56 OTHER OUTSIDE LAB E/A ratio 1.35 OTHER OUTSIDE LAB E/E' ratio 10.67 OTHER OUTSIDE LAB CV ECHO PV CLAIM TECHNICIAN MAXINE Cooley OTHER OUTSIDE LAB LV mass 118.49 96 - 200 g OTHER OUTSIDE LAB RWT 0.36 <=0.42 OTHER OUTSIDE LAB TV rest pulmonary artery 22 mmHg OTHER OUTSIDE LAB pressure Right Heart Systolic TDI 0.110 m/s OTHER OUTSIDE LAB S' Cardiology Ultrasound Siemens [id number] OTHER OUTSIDE LAB Machine ECHO EF 60 [...] study available for comparison Performing Organization Address [facility] Phone Number OTHER OUTSIDE LAB * BETA HYDROXYBUTYRATE (KETONES) (07/01/2018 12:50 PM) Beta Hydroxybutyrate 0.1 <0.3 MMOL/L [facility]IN [facility] Comment: Beta hydroxybutyrate (BOHB) is the most abundant ketone (78%), followed by acetoacetate (20%) and acetone (2%).Measurement BOHB is recommended to assess ketones in DKA. Expected BOHB Results for DKA: Initial presentation high/increasing During treatment decreasing Resolved decreasing/normal Performing Organization Address [facility] Phone Number MAIN LAB [address] [place] [address] * LACTIC ACID (BG - RAPID LACTATE) (07/01/2018 12:50 PM) Lactic Acid,BG 1.5 0.5 - 2.0 MMOL/L [facility]IN [facility] Specimen Blood Performing Organization Address [facility] Corporation[facility] Phone Number MAIN LAB [address] [place] [address] * LACTIC ACID(LACTATE) (07/01/2018 12:50 PM) Lactic Acid 1.5 0.5 - 2.0 MMOL/L [facility]IN [facility] Performing Organization Address [facility]/Zipcode Phone Number [facility] [address] [place] [address] * HEMOGLOBIN A1C (07/01/2018 12:50 PM) Hemoglobin A1C 17.4 (H) 4.0 - 6.0 % [facility] Comment: The ADA recommends that most patients with type 1 and type 2 diabetes maintain an A1c level <7%. Specimen Blood Performing Organization Address [facility]/Zipcode Phone Number MAIN LAB [address] [place] [phone] * LIPID PROFILE (07/01/2018 12:50 PM) Cholesterol [...] Specimen Blood Performing Organization Address [facility] Phone Number MAIN LAB [address] [place] [phone] * IR ARTERIOGRAM NEURO (07/01/2018 12:29 PM) [...] Fentanyl 25 mcg Contrast - 100 cc [id number] Total mGy - 421 Anesthesia:conscious sedation Consent [...] the sheath was advanced over a 5 [place] 125 cm Vert catheter over a 180 cm 0.035 [place] wire over the aortic arch and into [...] therefore, hemostasis was achieved using an 8 [place] Angioseal closure device followed by manual pressure [...] Fentanyl 25 mcg Contrast - 100 cc [id number] Total mGy - 421 Anesthesia: conscious sedation [...] the sheath was advanced over a 5 [place] 125 cm Vert catheter over a 180 cm 0.035 [place] wire over the aortic arch and into [...] therefore, hemostasis was achieved using an 8 [place] Angioseal closure device followed by manual pressure [...] teamat 11:51 AM on 07/01/2018 by the vice president process in consultation with TALIA BOSTON M.D.. Approved [...] at 11:51 AM on 07/01 by the vice president process in consultation with TALIA BOSTON M.D.. Approved [...] teamat 11:51 AM on 07/01/2018 by the vice president process in consultation with TALIA BOSTON M.D.. Approved [...] at 11:51 AM on 07/01 by the vice president process in consultation with TALIA BOSTON M.D.. Approved [...] teamat 11:51 AM on 07/01/2018 by the vice president process in consultation with TALIA BOSTON M.D.. Approved [...] at 11:51 AM on 07/01 by the vice president process in consultation with TALIA BOSTON M.D.. Approved [...]
--- OUTSIDE RECORDS SUMMARY | 2018-08-08 20:35 | XMS REPORT | Encounter Summary ---
Author Author [facility] Organization [facility] Address Unknown Phone Unavailable Care Team Providers Care Well Tester Name Role Phone Damien Caceres MD [...] [address] [place] [address] [place] [address] [phone] Anesthesia Record Procedure Name Responsible Anesthesia Start [...] RT; Eye; Surgical Incision 05/11/14 0000 by [place], (NOT for MAXINE Kim Pressure Injuries) Indwelling [...] due to out of window), transferred to [facility] and found to have R M1 occlusion [...] Consent: consented Plan discussed with: anesthesiologist and BLOOD BANK ASSISTANT. Comments: (Patient not participating in health history/consent. [...]
--- OUTSIDE RECORDS SUMMARY | 2018-08-08 20:35 | XMS REPORT | Encounter Summary ---
Author Author [facility] Organization [facility] Address Unknown Phone Unavailable Care Team Providers Care Manager Background Name Role Phone Damien Caceres MD Unavailable Melo Adame MD Unavailable Unavailable Lulu Ozuna NP PCP Hilary Davenport RN Unavailable Unavailable Reason for Referral * Consult, Test & Treat (Routine) Status Reason Specialty Diagnoses / Referred By Referred To Procedures Contact Contact Closed Specialty Gastroenterology Diagnoses Keyshawn Gomez [facility] Gastrointestinal [facility] Medical Required hemorrhage with [address] [place], [place] [phone] Phone: Fax: Reason for Visit * Auth/Cert Status Reason Specialty Diagnoses / Referred By Referred To Procedures Contact Contact Diagnoses Stroke (HCC) Stroke Encounter Details Date Type Department Care Team Description 07/01/2018 Hospital [facility]6 Diego Gutierrez MD Stroke (HCC) - Encounter [address] 07/09/2018 [place] [address] [place], [place] [id number] Shanna Rocha MD [address] [place], [place] [id number] Veronica Buchanan MD [address] [place] [address] Keyshawn Hinton MD [address] [place] [address] Social History Tobacco Use Types Packs/Day Years [...] s/p suprapubic catheter that was admitted at [facility] for urosepsis, DKA, A fib with RVR requiring cardizem ggt that was transferred for concerns for stroke. Admitted on 06/28 to [facility] with week history of cough, SOB. Found to have UTI with urosepsis and DKA with CO2 of 8, BG in 600s. Admitted to the ICU at [facility]. Started on CTX and Insulin ggt. [...] language) 2=neither correct 2 1c. 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, bridge club manager and release non-paretic hand (other 1 [...] tPA given unclear window. Was transferred to [facility] for evaluation. Was given ativan 2mg enroute [...] stroke on 07/15. ECHO showed no thrombus. LEAD DEVELOPER was following and pt graduated to regular [...] hospital course Consults: Cardiology, Endocrinology, GI and PT/OT/LEAD DEVELOPER, rehab, urology Patient Disposition: [facility] Facility Patient instructions/medications: AMB REFERRAL TO GASTROENTEROLOGY [...] home, please feel free to contact the Physician Specialist at [phone]. Your last blood pressure was BP: 171/73, [...] Report These Signs and Symptoms STROKE Call [phone] for the following symptoms: *Sudden numbness or weakness of the face, arm or leg, especially on one side of the body. *Sudden confusion, trouble speaking or understanding. *Sudden trouble seeing in one or both eyes. *Sudden trouble walking, dizziness, loss of balance or coordination. *Sudden, severe headache with no known cause. Return Appointment For Neurology scheduling contact [phone] For Neurosurgery appointments call [phone] Questions About Your Stay STANDARD For questions or concerns regarding your hospital stay: -DURING BUSINESS HOURS (8:00 AM - 4:30 PM): Call [phone] and ask to be transferred to your discharge attending physician. -AFTER BUSINESS HOURS (4:30 PM - 8:00 AM, on weekends, or holidays): Call [phone] and ask the mule operator to page the on-call doctor for the discharge attending physician. Discharging attending physician: KEYSHAWN GOMEZ [[id number]] Complete if patient is going to a [facility] Facility I certify that the patient requires skilled care Yes The patient's stay is expected to be less than 30 days Yes I will be in charge of patient in penitentiary No Cardiac Diet Limiting unhealthy fats and [...] home, you can call a dietitian at [phone]. Modified Liquids Your fluids should be thickened to a consistency of nectar. This is as thick as a milkshake or tomato juice. If you have questions about your diet after you go home, you can call a dietitian at [phone]. Current Discharge Medication List START taking these [...] CDT Return Patient with Lulu Perry MD [facility]-Neurology ([facility]) [facility] [id number] Additional appointment instructions: Please follow up with your PCP for repeat labs, monitoring your blood pressure, and monitoring your blood glucose Please follow up with the pattern grader at [facility] for follow up visit. Please [...] blood glucose Please follow up with the pattern grader at [facility] for follow up visit. Please [...] - 07/09/2018 2:57 PM CDT Phoned [facility] [phone] and gave report to Perla GOODMAN to receive patient. Informed her that patient to transport at 13:00. By 15:00 no transport arrived, phoned facility above and it was reported that ride was on the way. FSBS=69 checked prior to transport. Reported to commercial litigation paralegal for Neurology, juice x 2 given FSBS rechecked=87. Patient left unit via wheelchair and milk wagon driver who was given chart for transport. [...] Range Color,UA STRAW Turbidity,UA CLEAR CLEAR-CLEAR Specific [place]-Urine 1.005 1.003 - 1.035 pH,UA 8.0 5.0 [...] 0547) POC Glucose (Download): (!) 136 (07/09/18 0584) Radiology and other Diagnostics Review: Pertinent radiology [...] DKA resolved -A1c 17.4 on 07/01/2018 uncontrolled -HR PAYROLL COORDINATOR regimen: levemir 40 units QHS, Novolog 20-25 [...] will follow up with local endocrinology in [facility] Subjective Valdez Anthony is a [...] Range Color,UA STRAW Turbidity,UA CLEAR CLEAR-CLEAR Specific Hague-Urine 1.005 1.003 - 1.035 pH,UA 8.0 5.0 [...] Diagnostics Review: none Barbi Deluna MD P 5403 * Tata Daniels, RD - 07/09/2018 12:54 PM CDT CLINICAL NUTRITION Clinical Nutrition Follow-Up Summary NAME:Valdez Anthony :1960 AGE: 57 y.o. ADMISSION DATE: 07/01/2018 DAYS ADMITTED: LOS: 8 days Nutrition Assessment of Patient: Malnutrition Assessment: Does not meet criteria Current Oral Intake: Improving, Marginally Adequate Estimated Calorie Needs: 3615-5017 (25-28 kcal/kg desired wt) Estimated Protein Needs: 85-100 (1.2-1.4 g/kg desired wt) Oral Diet Order: Diabetic 9454-8529 Kcal/day (60 g Carb/meal, 30 g Carb/HS snack ), [place] Thick Liquids Comments: 57 y.o. male with new onset Atrial Fibrillation with RVR, HTN, HLD, T2DM, Diabetic Retinopathy, OD Blindness, Neovascular Glaucoma, Prostate Cancer s/p prostatectomy, Urinary Retention s/p suprapubic catheter that was admitted at [facility] for urosepsis, DKA, A fib [...] and underwent via video- swallow eval with LEAD DEVELOPER findings of moderate oropharyngeal dysphagia and baseline cognitive deficits. LEAD DEVELOPER working with pt and diet has advanced from nectar thick full liquids to 60g/meal consistent carb diet with nectar thick fluids. Per had 100% omelet for breakfast today (refused per RN) and sandwich ordered by for lunch. No current wt to assess; unable to actually see pt today as he was bundled in his blankets. Pt has orders for no sugar added [place] breakfast with nectar thick milk at breakfast and per RN throughout day as needed. Followed up with call center who says orders not printing to meal ticket. denies need for diet education Recommendation: Encourage good meal intakes at least 3 times per day with adequate protein source each meal on 60g/meal consistne carb diet. Offer no sugar added [place] Breakfast shakes made with nectar thick milk at breakfast and PRN. Intervention / Plan: Monitor po intake tolerance and adequacy monitor wt trends, labs, meds and GI status Nutrition Diagnosis: Altered GI function Etiology: swallowing and cognitive deficits Signs & Symptoms: LEAD DEVELOPER findings and nectar thick liquids with diabetic [...] prostate cancer s/p prostatectomy who presents to [facility] as a transfer from [facility] for stroke. OSH course: Pt presented [...] tPA given unclear window. Was transferred to [facility] for evaluation. Was given ativan 2mg enroute [...] EF, LA size 3.5cm, no thrombus - LEAD DEVELOPER following -> recommend regular diet w/ nectar [...] TIDAC >pt to f/u w/ endo @ [facility] outpt basis -> goal BS [...] -> develop stroke and was transferred to [facility] - Was placed on PO cardizem >Will [...] 07/01 - 07/05 Dispo: discharge today to [facility] @ 1300 Patient was seen and [...] Range Color,UA STRAW Turbidity,UA CLEAR CLEAR-CLEAR Specific [place]-Urine 1.005 1.003 - 1.035 pH,UA 8.0 5.0 [...] James Shook, Pager Associated attestation - Keyshawn Gomez MD [...] prostate cancer s/p prostatectomy who presents to [facility] as a transfer from [facility] for stroke. OSH course: Pt presented [...] tPA given unclear window. Was transferred to [facility] for evaluation. Was given ativan 2mg enroute [...] EF, LA size 3.5cm, no thrombus - LEAD DEVELOPER following -> recommend regular diet w/ nectar [...] TIDAC >pt to f/u w/ endo @ [facility] outpt basis -> goal BS [...] -> develop stroke and was transferred to [facility] - Was placed on PO cardizem > [...] fluids, replace lytes PRN, ada diet Ppx: [id number] Heparin Sq Q8, SCDs Code: Full Dispo: [...] (07/08/18 0553) POC Glucose (Download): 75 (07/08/18 7416) Radiology and Other Diagnostics Review: Pertinent radiology reviewed. James Shook, Pager Associated attestation - Keyshawn Gomez MD [...] superficial erosion noted in the upper esophagus, carlynley 2/2 ?NG tube trauma. Inlet patch noted. [...] pathology results. Roberto Dutta GI fellow Pager [phone] 07/08/2018 3:39 PM * Eloy Higgins RN [...] After 5:00 pm, holidays or weekends call [phone] and ask for the GI Doctor commercial litigation paralegal. * Barbi Deluna MD - 07/08/2018 12:10 [...] DKA resolved -A1c 17.4 on 07/01/2018 uncontrolled -HR PAYROLL COORDINATOR regimen: levemir 40 units QHS, Novolog 20-25 [...] will follow up with local endocrinology in [facility] Subjective Valdez Anthony is a [...] tablet 40 mg 40 mg Oral QDAY [DEC Hold] metoprolol tartrate (LOPRESSOR) tablet 12.5 [...] MINUTE (07/08 1141) SpO2: 99 % (07/08 114) O2 Delivery: [...] s/p suprapubic catheter that was admitted at [facility] for urosepsis, DKA, A fib [...] PROGRESS NOTE Patient Name: Valdez Anthony Room/Bed: AD7482/01 Admitting Diagnosis: Stroke Past Medical History: Diagnosis [...] occasionally in community. Prior Function Level Of [place]: Independent with ADLs and functional transfers Lives [...] house, Transfers, Bed mobility, Ambulation, Stairs Therapist: Irma Blakely OTR/Cesia [id number] Date: 07/08/2018 * Whit Guadarrama MS,CCC-LEAD DEVELOPER - 07/08/2018 9:38 AM CDT SPEECH-LANGUAGE PATHOLOGY NO TREATMENT NOTE Chart reviewed and discussed in interdisciplinary rounds. Pt NPO for colonoscopy this date. LEAD DEVELOPER will continue to follow. Therapist: Whit Guadarrama MS,CCC-LEAD DEVELOPER [id number] Date: 07/08/2018 * Barbi Deluna MD - [...] DKA resolved -A1c 17.4 on 07/01/2018 uncontrolled -HR PAYROLL COORDINATOR regimen: levemir 40 units QHS, Novolog 20-25 [...] will follow up with local endocrinology in [facility] Subjective Valdez Anthony is a [...] Diagnostics Review: none Barbi Deluna MD P 0682 * Aria Mccoy, PT - 07/07/2018 1:39 [...] prostate cancer s/p prostatectomy who presents to [facility] as a transfer from [facility] for stroke. OSH course: Pt presented to [...] tPA given unclear window. Was transferred to [facility] for evaluation. Was given ativan 2mg enroute [...] EF, LA size 3.5cm, no thrombus - LEAD DEVELOPER following -> recommend regular diet w/ nectar [...] > pt to f/u w/ endo @ [facility] outpt basis -> goal BS [...] -> develop stroke and was transferred to [facility] - Was placed on PO cardizem > [...] clear liquid/ada diet for procedure tomorrow Ppx: [id number] Heparin Sq Q8, SCDs Code: Full Dispo: [...] provide intervention as indicated. Irma Blakely OTR/L [id number] * Whit Guadarrama, ,CCC-LEAD DEVELOPER - 07/07/2018 9:50 AM CDT SPEECH-LANGUAGE PATHOLOGY NO TREATMENT NOTE Chart reviewed and discussed in interdisciplinary rounds. Pt NPO for colonoscopy this date. LEAD DEVELOPER will continue to follow. Therapist: Whit Guadarrama MS,[facility]-LEAD DEVELOPER [id number] Date: 07/07/2018 * Shira Welch RN - [...] DKA resolved -A1c 17.4 on 07/01/2018 uncontrolled -HR PAYROLL COORDINATOR regimen: levemir 40 units QHS, Novolog 20-25 [...] will follow up with local endocrinology in [facility] Subjective Valdez Anthony is a [...] Color,UA YELLOW Turbidity,UA 2+ (A) CLEAR-CLEAR Specific [place]-Urine 1.017 1.003 - 1.035 pH,UA 5.0 5.0 [...] Radiology and other Diagnostics Review: none Barbi Delnua MD P 0688 * James Shook, DO [...] prostate cancer s/p prostatectomy who presents to [facility] as a transfer from [facility] for stroke. OSH course: Pt presented [...] tPA given unclear window. Was transferred to [facility] for evaluation. Was given ativan 2mg enroute [...] EF, LA size 3.5cm, no thrombus - LEAD DEVELOPER following -> recommend regular diet w/ nectar [...] > pt to f/u w/ endo @ [facility] outpt basis -> goal BS [...] fluids, replace lytes PRN, ADA diet Ppx: [id number] Heparin Sq Q8, SCDs Code: Full Dispo: [...] asked these questions and provided answers by LEAD DEVELOPER) Speech: slurred speech w/ comprehension intact to [...] Color,UA YELLOW Turbidity,UA 2+ (A) CLEAR-CLEAR Specific [place]-Urine 1.017 1.003 - 1.035 pH,UA 5.0 5.0 [...] due to out of window), transferred to [facility] and found to have R M1 occlusion [...] established Keyshawn Gomez MD * Whit Guadarrama MS,CCC-LEAD DEVELOPER - 07/06/2018 12:14 PM CDT Formatting of this note may be different from the original. SPEECH-LANGUAGE PATHOLOGY COGNITIVE-COMMUNICATION ASSESSMENT EVALUATION SUMMARY Pt seen for cognitive communication evaluation utilizing the Boston Cognitive Assessment (MOCA) as well as other [...] address dysphagia and cognitive communication concerns. Ongoing LEAD DEVELOPER at next level of care. Consistent supervision [...] city, stating we are located at [facility]. Verbal Problem Solving Comments: Functional problem solving: [...] baseline to call for assistance if needed. Boston Cognitive Assessment (MoCA), Version 7.1 Subtest / [...] suprapubic catheter that was admitted at [facility] for urosepsis, DKA, A fib with RVR [...] spoon/cup and pureed /mech soft solids w/ LEAD DEVELOPER only w/ less than 5% s/s of [...] from respiratory status changes. Therapist: Whit Guadarrama MS,[facility]-LEAD DEVELOPER [id number] Date: 07/06/2018 * Aria Mccoy, PT - [...] s/p suprapubic catheter that was admitted at [facility] for urosepsis, DKA, A fib [...] spoon/cup and pureed /mech soft solids w/ LEAD DEVELOPER only w/ less than 5% s/s of [...] speech therapy post acute hospitalization. Therapist: Cesia Hatfield/CCC-LEAD DEVELOPER (Pager [phone]; Voalte: [phone]) Date: 07/05/2018 * Darcy Goodrich MD - [...] s/p suprapubic catheter that was admitted at [facility] for urosepsis, DKA, A fib [...] - A-Fib: plan to start Apixaban on 9/17 - Echocardiogram: 60% EF, LA size 3.5cm, no thrombus - LEAD DEVELOPER to eval and treat - Video swallow [...] - Rocephin 07/01 - 07/05 FEN: - [place] thick PO fluids - Daily BMP - [...] (Last 24 hours) Glucose: (!) 131 (07/05/18 0599) POC Glucose (Download): (!) 139 (07/05/18 0564) Radiology and other Diagnostics Review: Pertinent radiology reviewed. Darcy Goodrich MD Neurology PGY-4 Pager Neurology commercial litigation paralegal pager [phone] Associated attestation - Diego Gutierrez [...] DKA resolved -A1c 17.4 on 07/01/2018 uncontrolled -HR PAYROLL COORDINATOR regimen: levemir 40 units QHS, Novolog 20-25 [...] will follow up with local endocrinology in [facility] This is an individual we [...] s/p suprapubic catheter that was admitted at [facility] for urosepsis, DKA, A fib [...] EF, LA size 3.5cm, no thrombus - LEAD DEVELOPER to eval and treat - Video swallow [...] - Rocephin 07/01 - 07/05 FEN: - [place] thick PO fluids - Daily BMP - [...] 20,000 Units/ sodium bicarbonate 650 mg(#) PRN (Relay Associate from Rx) Vital Signs: Last Filed in [...] to be occluded. Munira Ortega DO Pager [phone] Associated attestation - Diego Gutierrez MD - [...] anemia, also received another endoscopy at [facility] OSH again without a clear upper GI [...] DKA resolved -A1c 17.4 on 07/01/2018 uncontrolled -HR PAYROLL COORDINATOR regimen: levemir 40 units QHS, Novolog 20-25 [...] will follow up with local endocrinology in [facility] Anemia This patient is having [...] 20,000 Units/ sodium bicarbonate 650 mg(#) PRN (Relay Associate from Rx) Objective Vital Signs: Last Filed [...] Screen NEG Electronic Crossmatch YES Unit Number [id number] Blood Component Type RBC,CPDA,LEUKO REDUCED Unit Division [...] none John Chaudhry MD * America Barcenas, RN - 07/03/2018 11:21 PM CDT Formatting [...] s/p suprapubic catheter that was admitted at [facility] for urosepsis, DKA, A fib [...] EF, LA size 3.5cm, no thrombus - LEAD DEVELOPER to eval and treat - Video swallow [...] - UA negative for UTI FEN: - [place] thick PO fluids - Daily BMP - [...] 20,000 Units/ sodium bicarbonate 650 mg(#) PRN (Relay Associate from Rx) Vital Signs: Last Filed in [...] s/p suprapubic catheter that was admitted at [facility] for urosepsis, DKA, A fib [...] 6 Standardized (T-scale) Score: 16.59 Basic Mobility [facility] 0-100%: 100 [facility] G Code Modifier for Basic Mobility: CN [...] body lift to chair for weekend, with technical staff assistant. Dicussed mobility recommendation with bedside RN. RECOMMENDATIONS: PT Discharge Recommendations PT Discharge Recommendations: Inpatient Setting Therapist: Dolores Sampson, PT Date: 07/03/2018 * Mary Grace Stanton, OT - 07/03/2018 1:33 PM CDT Formatting of this note may be different from the original. OCCUPATIONAL THERAPY PROGRESS NOTE Patient Name: Valdez Anthony Room/Bed: [place] [address] Admitting Diagnosis: Stroke Past Medical History: Diagnosis [...] non verbal with left hemiplegia. Transferred to [facility]. R MCA stroke s/p thrombectomy, [...] occasionally in community. Prior Function Level Of [place]: Independent with ADLs and functional transfers Lives [...] s/p suprapubic catheter that was admitted at [facility] for urosepsis, DKA, A fib [...] Fed Thin Liquid: 1 oz, Cup, Straw [place] Thick Liquid: Cup, Straw [place] Thick Liquid: [...] spoon/cup and pureed /mech soft solids w/ LEAD DEVELOPER only w/ less than 5% s/s of aspiration. Goal : Pt will participate in cognitive-communication assessment given mod cues. Therapist: BIANCA Lamb, L/CCC-LEAD DEVELOPER Voalte: [id number] Date: 07/03/2018 * Alex Medel RN - [...] PM CDT Patient arrived to room # (2067) via bed accompanied by RN. Patient transferred [...] 9:20 PM CDT Pt transported to room [facility] via bed, RN x2, VSS. Pt 2100 [...] ASSESSMENT NOTE Patient Name: Valdez Anthony Room/Bed: QI0686/01 Admitting Diagnosis: Stroke Past Medical History: Diagnosis [...] non verbal with left hemiplegia. Transferred to [facility]. R MCA stroke s/p thrombectomy, stent 07/01. [...] occasionally in community. Prior Function Level Of [place]: Independent with ADLs and functional transfers Lives [...] s/p suprapubic catheter that was admitted at [facility] for urosepsis, DKA, A fib [...] Sampson, PT Date: 07/02/2018 * Alonzo Watt APRN-GRADUATE ASSISTANT - 07/02/2018 1:20 PM CDT Vascular Neurology Interval Note Valdez Caal a 57 y.o.maleis a 57 y.o. male with new onset Atrial Fibrillation with RVR, HTN, HLD, T2DM, Diabetic Retinopathy, OD Blindness, Neovascular Glaucoma, Prostate Cancer s/p prostatectomy, Urinary Retention s/p suprapubic catheter that was admitted at [facility] for urosepsis, DKA , A [...] from the ICU. Updated plan: - NPO, LEAD DEVELOPER to monitor swallow - Protein shake supplements - f/u on Blood Cxr's - Continue insulin gtt, consider endocrine consult - SBP <140 Alonzo Watt APRN-GRADUATE ASSISTANT Vascular Neurology [id number] Associated attestation - Diego [...] is restart AC in 10 days, needs LEAD DEVELOPER re-eval for get cleared otherwise PEG, Glu [...] ulceration, stop protonix Stable for transfer to [facility]. I spent 45 minutes (excluding time spent [...] reports that pt completed videoswallow evaluation at [facility], which she states yielded recommendations [...] Continue Treatment 3-5x/week. Prognosis: Fair NOMS Dysphagia Ratin1-Wfaxrmwydx-Iritte Dysphagia -Not able to swallow safely by mouth for nutrition/hydration but may take some consistency w/ consistent max cues in therapy only. Alternative method of feeding required. Results Reported to Physician: Yes Objective* Relevant Med Background: 57 y.o. male with A-Fib (on Coumadin HR PAYROLL COORDINATOR), IDDM, Prostate CA, OD blindness, HLD and [...] videoswallow evaluation given mild-mod cues. Therapist:BIANCA Lamb L/CCC-LEAD DEVELOPER Voalte: [id number] Date:07/02/2018 * Ciarra Valentino DO - 07/02/2018 [...] s/p suprapubic catheter that was admitted at [facility] for urosepsis, DKA , A [...] involving the medial L temporal lobe. 3. [place] of flow void in the R M1. - Stroke Risk Factor Modification -LDL 44. Goal <70. Continue seating captain atorvastatin 40mg -A1c 17.4. Goal <7.0 -Continue ASA. Will discuss timing of AC given Afib. -Goal BP <140 - PT/OT, Speech Consult - Consult to Rehab - Neuro-ICU monitoring, neurochecks q 1 hrs Encephalopathy -s/p Flumazenil 0.5mg x 2 -07/01 ABG 7.34/39/102/20.6 -07/01 EEG: Diffuse slowing indicative of encephalopathy. No seizures or epileptiform activity. -No sedation needs -Holding seating captain Bupropion, Duloxetine Sedation/Pain Management: -s/p ativan 2mg and fentanyl 25mcg -s/p flumazenil 0.5 mg x 3 -No sedation needs at this time Cardiac: Afib with RVR -[id number]: 4: 4.8% Risk for stroke and 6.7% [...] - Hydralazine prn SBP >140 - Continue seating captain Lisinopril 20mg HLD - LDL 44. Goal LDL <70. Continue seating captain atorvastatin 20mg Respiratory: Hypoxia likely 2/2 [...] - Blood glucose goal 100-180mg/dl - Holding seating captain Levemir 16 units and Novolog 5 [...] (Last 24 hours) Glucose: (!) 127 (07/02/18 3110) POC Glucose (Download): (!) 142 (07/02/18 7560) Lab Review: 24-hour labs: Results for orders [...] Range Color,UA STRAW Turbidity,UA CLEAR CLEAR-CLEAR Specific [place]-Urine 1.018 1.003 - 1.035 pH,UA 5.0 5.0 [...] O2 Sat-Arterial 97.5 95 - 99 % Qynzi[place]hyli-ESL-Igu 20.6 (L) 21 - 28 MMOL/L POC [...] diagnostic procedures reviewed. Ciarra Valentino, Date: 07/02/[phone] Associated attestation - Veronica Doyle MD - 07/02/2018 10:31 AM CDT Formatting of this note may be different from the original. ATTESTATION See separate attestation note on the same date. Staff name: Veronica Doyle MD Date: 07/02/2018 * Noris Mraie - 07/01/2018 6:50 PM CDT 25 minute [...] urosepsis and suprapubic catheter placed at [facility] secondary to urinary retention and inability to [...] outpatient follow up Jerry Baker MD Urology commercial litigation paralegal Please page commercial litigation paralegal with concerns * Jaycob Ramos DO - 07/01/2018 3:49 PM CDT Attempted to see pt today but he was off the unit. Will attempt to see pt . * Veronica Doyle MD - 07/01/2018 2:45 PM CDT Formatting of this note may be different from the original. ATTESTATION I have seen, personally fully evaluated, and discussed patient [facility] Dr Valentino [facility] I agree with the objective findings [...] Doyle MD Date: 07/01/2018 * Whit Guadarrama MS,CCC-LEAD DEVELOPER - 07/01/2018 1:36 PM CDT SPEECH-LANGUAGE PATHOLOGY NO TREATMENT NOTE Order received and appreciated for clinical swallow evaluation. Chart reviewed and made contact with RN. Pt currently with another provider and with decreased level of arousal/responsiveness following ativan administration in the helicopter. LEAD DEVELOPER will hold at this time per discussion with RN. LEAD DEVELOPER will follow up and will complete evaluation when pt medically appropriate. Addendum 15:20: pt remains somnolent and unable to sustain adequate level of arousal to participate in clinical swallow evaluation per discussion with RN. LEAD DEVELOPER will return to complete evaluation when appropriate. Chart review: Mr. Anthony presented to [facility] on 06/29 with uro-sepsis and DKA. [...] suggesting smaller completed infarct. Therapist: Whit Guadarrama MS,CCC-LEAD DEVELOPER [id number] Date: 07/01/2018 * Mari Mullen RN - [...] s/p suprapubic catheter that was admitted at [facility] for urosepsis, DKA, A fib [...] Factor Modification -Lipid Panel and A1c. Continue seating captain atorvastatin 40mg -TTE -Start ASA. -Goal BP <140 - PT/OT, Speech Consult - Consult to Rehab - Neuro-ICU monitoring, neurochecks q 1 hrs Encephalopathy likely 2/2 to Ativan, Fentanyl -s/p Flumazenil 0.5mg x 2 -ABG -CT Head w/out contrast -No sedation needs -Holding seating captain Bupropion, Duloxetine Sedation/Pain Management: -s/p ativan 2mg and fentanyl 25mcg -s/p flumazenil 0.5 mg x 2 -No sedation needs at this time Cardiac: Afib with RVR -[id number]: 4: 4.8% Risk for stroke and 6.7% [...] due to bradycardia at OSH - Holding seating captain Lisinopril 20mg and Metoprolol 25mg BID HLD - Lipid Panel. Goal LDL <70. Continue seating captain atorvastatin 20mg Respiratory: DHRUV -RA - [...] - Blood glucose goal 100-180mg/dl - Holding seating captain levemir, novolog FEN: - IVF: NPO, [...] p suprapubic catheter that was admitted at [facility] for urosepsis, DKA, A fib with RVR requiring cardizem ggt that was transferred for concerns for stroke. Admitted on 06/28 to [facility] with week history of cough, SOB. Found to have UTI with urosepsis and DKA with CO2 of 8, BG in 600s. Admitted to the ICU at [facility]. Started on CTX and Insulin ggt. [...] language) 2=neither correct 2 1c. 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, bridge club manager and release non-paretic hand (other 1 [...] more than one modality 2 Score 32 [place] coma score: E: 2 - Opens eyes [...] diagnostic procedures reviewed. Ciarra Valentino, Date: 07/01/[phone] * Edvin Juarez, INTERNET SALES ASSOCIATE-GRADUATE ASSISTANT - 07/01/2018 12:03 PM CDT Formatting of [...] Pertinent labs reviewed Edvin Juarez APRN-ROSEANN Pager [phone] in this encounter Procedure Notes * Amy Velasquez MD - 07/01/2018 8:07 PM CDT Procedure(s): EEG AWAKE & ASLEEP EEG REPORT Valdez Anthoyn 1960 [id number] DATE OF STUDY 07/01/18 PATIENT HISTORY: This is a 57 y.o. male with a history of stroke and abnormal mental status. MEDICATIONS: Current Facility-Administered Medications: aspirin rectal suppository 300 mg, 300 mg, Rectal, QDAY, Ciarra Valentino DO, Stopped at 07/01/18 1511 atorvastatin (LIPITOR) tablet 40 mg, 40 mg, Oral, QHS, Cirara Valentino DO calcium gluconate 1 g in sodium chloride 0.9% (NS) 110 mL IVPB (MB+), 1 g, Intravenous, PRN (Relay Associate from Rx) AND Ionized Calcium, , , [...] 250 mL IVPB, 8 mmol, Intravenous, PRN (Relay Associate from Rx) AND Phosphorus, , , PRN [...] here. EGD showed s/p polypectomy. Transferred to [facility] for stroke. Hgb dropped from 10.1 -> [...] She also does mention that at the [facility] the patient did have an upper [...] Date Noted Sepsis (HCC) 01/15/2016 Severe sepsis ([facility]) 01/15/2016 LATISHA (acute kidney injury) ([facility]) 01/15/2016 High anion gap metabolic acidosis 01/15/2016 Past Medical History: Diagnosis Date Arthritis DM (diabetes mellitus) ([facility]) DM eyes Glaucoma Hypertension Social [...] Color,UA YELLOW Turbidity,UA 2+ (A) CLEAR-CLEAR Specific [place]-Urine 1.017 1.003 - 1.035 pH,UA 5.0 5.0 [...] DKA resolved -A1c 17.4 on 07/01/2018 uncontrolled -HR PAYROLL COORDINATOR regimen: levemir 40 units QHS, Novolog 20-25 [...] will follow up with local endocrinology in [facility] Patient was seen and discussed [...] with diabetes in 1994. He follows with pattern grader at [facility]. At home, he was taking Levemir 40 units once a day, NovoLog 20-25 units with meal, metformin 1000 mg twice a day. His states that pattern grader prescribe NovoLog 40 units 3 times a [...] reviewed. Brenda Larios Endocrine Fellow Pager # [phone] 07/03/2018 Associated attestation - John Chaudhry MD [...] thick full liquids today) Estimated Calorie Needs: 0487-7141 (25-28 kcal/kg desired wt) Estimated Protein Needs: 85-100 (1.2-1.4 g/kg desired wt) Oral Diet Order: Full Liquid, [place] Thick Liquids Current EN Order: Isosource 1.5 [...] s/p suprapubic catheter that was admitted at [facility] for urosepsis, DKA, A fib [...] 07/02. Pt pulled Corpak today despite mits. LEAD DEVELOPER evaluated pt via video-swallow with moderate oropharyngeal dysphagia and baseline cognitive deficits. LEAD DEVELOPER recommending nectar thick full liquids; diet ordered. [...] meal. Offer No Sugar Added "Light Start [place] Breakfast Essentials" shakes made with nectar thick [...] Intervention / Plan: assessed nutritional status; ordered [place] Breakfast shakes with nectar thick milk PRN monitor po intake, adequacy, tolerance and advancement per LEAD DEVELOPER findings and recs monitor wt trends, labs, meds and GI status Nutrition Diagnosis: Altered GI function Etiology: swallowing and cognitive deficits Signs & Symptoms: LEAD DEVELOPER findings and recs for nectar thick full liquids with supervision Goals: Patient to consume >75% of meals/supplements Time Frame: Within 72 Hours Tata Daniels, MS,RD, LD, [facility] *[id number] * Damian Hensley MD - 07/02/2018 1:16 [...] who was admitted upon transfer from [facility] on 07/01/2018 after originally presenting there with sepsis determined to be secondary to UTI complicated by DKA and Atrial Fibrillation and then apparent AMS. [facility]. [...] complexity and goals with PT, OT, and LEAD DEVELOPER for acute inpatient rehabilitation; however, he is [...] Please have primary SWCM discuss with [facility] environment coordinator according to the patient 's (and/or [...] a 57 y.o. male admitted to [facility] on 07/01/2018 with the following issues: [...] hours while supine in bed, pressure relief [id number] in seated position, PRAFOs for pressure relief and to prevent contractures Jaycob Ramos, Rehab Consult Pager: [phone] History of Present Illness Hospital Course: Valdez Anthony is a 57 y.o. male with new onset Atrial Fibrillation with RVR, HTN , HLD, T2DM, Diabetic Retinopathy, OD Blindness, Neovascular Glaucoma, Prostate Cancer s/p prostatectomy, Urinary Retention s/p suprapubic catheter that was admitted at [facility] for urosepsis, DKA, A fib with RVR [...] urosepsis. Rehab consulted for post acute rehab/placement. HR PAYROLL COORDINATOR pt was independent and lived at home [...] Units/ sodium bicarbonate 650 mg(#) PRN ( Relay Associate from Rx) Allergies: No Known Allergies Prior Level of Function Prior Function Level Of [place]: Independent with ADLs and functional transfers Lives [...] L spontaneously. Mitt and soft wrist restraints, [place] strap replaced end of session and bed [...] reports that pt completed videoswallow evaluation at [facility], which she states yielded recommendations [...] Skylar Heart - 07/09/2018 11:04 AM CDT SWITCH MAKER Note: This blurb writer printed and placed transfer packet in pt's chart drawer, per request from [facility] Sophia Vaughn. Skylar Heart Re Recording Mixer For additional assistance, please contact [facility] Sophia Vaughn *[phone] * Anesthesia Post Op Day 1 - [...] days Todays Date: 07/09/2018 Plan D/c to [facility] today at 1:00pm via facility w/c van. [...] or Referral ? Discharge Planning Discharge Planning: [facility] WILLEM sent updated clinicals to [facility] at [phone]. Update 10:00am: WILLEM spoke with Perla ([phone]) at [facility] to update. Perla educated that they will be available for transportation today at 1:00pm. WILLEM spoke with Neuro Team to update. WILLEM spoke with bedside RN to update. WILLEM tasked SWITCH MAKER to deliver transfer packet. RN Report: [phone] WILLEM faxed d/c orders to [facility] at [phone]. ? Medication Needs ? Financial ? Legal [...] for the patient. Sophia Vaughn LMSW Phone: [phone] Pager: [phone] * Case Mgmt DC Plan - Sophia Vaughn - 07/08/2018 9:10 AM CDT Formatting of this note may be different from the original. Case Management Progress Note NAME:Valdez Anthony :1959 AGE: 57 y.o. ADMISSION DATE: 07/01/2018 DAYS ADMITTED: LOS: 7 days Todays Date: 07/08/2018 Plan Anticipate d/c to [facility] tomorrow pending pt stability. Interventions WILLEM reviewed [...] or Referral ? Discharge Planning Discharge Planning: [facility] WILLEM received and returned message for Angela ([phone]) at [facility] to discuss referral. Update 10:00am: WILLEM spoke with Blanquita ([phone]) at [facility] to update of anticipated d/c timeline. Blanquita educated that they are still reviewing for potential admission and will be contacting pt's to further discuss an admission. However, they will notify WILLEM once decision reached. Update 10:44am: WILLEM spoke with Perla at [facility] to update. Perla educated that they are able to accept for admission and will have their w/c van available for such. ? Medication Needs ? Financial [employer] following for assistance with [employer] ariel. ? Legal ? Other Other/None: [...] for the patient. Sophia Vaughn LMSW Phone: [phone] Pager: [phone] * Care Plan - Shira Welch RN [...] Todays Date: 07/07/2018 Plan Anticipate d/c to [facility] tomorrow pending pt stability and facility acceptance. Interventions SW reviewed EMR and met with Neuro team for huddle. GI consulted. Anticipated EGD today. ? Support Support: Pt/Family Updates re:POC or DC Plan, Counseling for Adaptation to Illness, Counseling for Psychosocial issues ? Info or Referral ? Discharge Planning Discharge Planning: [facility] WILLEM left message for Admissions ([phone]) at [facility] to discuss referral. Update 11:40am: WILLEM spoke with Hyacinth ([phone]) at [facility] and they are unable to locate referral. WILLEM agreeable to re-send referral to [phone], which WILLEM completed. Hyacinth educated that she will review and follow up. Hyacinth will also speak with her alterations supervisor to discuss their ability to assist with transportation. Update 1:20pm: WILLEM received message from Hyacinth and they are still unable to locate referral. WILLEM manually faxed referral to [phone], as requested. Update 2:00pm: WILLEM received message from Hyacinth that they only got a portion of the referral. WILLEM re-faxed referral to [phone]. Update 4:00pm: WILLEM received and returned message for Angela ([phone]) at [facility]. ? Medication Needs ? Financial ? Legal [...] for the patient. Sophia Vaughn LMSW Phone: [phone] Pager: [phone] * Care Plan - Shira Welch RN [...] Liana Ortiz - 07/06/2018 10:50 AM CDT [facility] Note: Received request from [facility] Sophia Vaughn to fax referrals to the following placements. [facility] also [facility] van costs to the facility. [facility] - $350-375 [facility] - $500-525 [facility] - $400-425 [facility] w/c van - $430 All subject to time, billed libertarian, needs, etc. Updated [facility] Liana Ortiz Re Recording Mixer For additional assistance please contact [facility] Sophia Vaughn *[phone] * Case Mgmt DC Plan - Sophia Vaughn - 07/06/2018 10:36 AM CDT Formatting of this note may be different from the original. Case Management Progress Note NAME:Valdez Anthony :1959 AGE: 57 y.o. ADMISSION DATE: 07/01/2018 DAYS ADMITTED: LOS: 5 days Todays Date: 07/06/2018 Plan Anticipate d/c to [facility] tomorrow vs Friday pending pt stability and facility acceptance. Interventions SW reviewed EMR and met with Neuro team for huddle. Anticipate GI consult. Continue to monitor hgb. ? Support Support: Pt/Family Updates re:POC or DC Plan, Counseling for Adaptation to Illness, Counseling for Psychosocial issues SW visited pt and Leticia at bedside to discuss DCP. [facility] SW agreeable and reviewed referral process. SW also reviewed potential private pay cost of w/c van should SNF be unable to assist. Leticia uncertain regarding their ability to private pay, however unwilling to remain in [facility] for SNF stay. SW agreeable to obtaining quote for ongoing assistance. ? Info or Referral ? Discharge Planning Discharge Planning: [facility] SW tasked SWITCH MAKER [facility] SW tasked SWITCH MAKER to check rosenberg of w/c van. ? [...] for the patient. Sophia Vaughn LMSW Phone: [phone] Pager: [phone] * Case Mgmt DC Plan - Sophia [...] or Referral ? Discharge Planning Discharge Planning: [facility] ? Medication Needs ? Financial ? [...] for the patient. Sophia Vaughn LMSW Phone: [phone] Pager: [phone] * Transfer - Ciarra Valentino, DO - [...] s/p suprapubic catheter that was admitted at [facility] for urosepsis, DKA , A [...] Started on ASA. LDL 40, continued on seating captain atrovastatin. PT/OT and Speech consulted. CV: Initially started on Nicardipine ggt for goal SBP <140. Restarted on seating captain lisinopril. Intermittent Afib on telemetry. Restarted [...] OSH. DKA resolved. Insulin ggt continued. Holding seating captain Levemir and Novolog. Consider Endocrine consult. [...] Discharge Plan: Undetermined Ciarra Valentino DO Pager [phone] * Case Mgmt DC Plan - Sophia Vaughn - 07/01/2018 3:09 PM CDT Case Management Admission Assessment NAME:Valdez Anthony :1959 AGE: 57 y.o. ADMISSION DATE: 07/01/2018 DAYS ADMITTED: LOS: 0 days Todays Date: 07/01/2018 Source of Information: SW visited pt's Leticia and pt's OCTAVIANO Moseley at bedside. Plan Plan: CM Assessment, Assist PRN with WILLEM/[place] Services Patient Address/Phone [address] [phone] (home) Emergency Contact Extended Emergency Contact Information Primary Emergency Contact: BoygonzalezSuzie (RUST) Relation: Relative Secondary Emergency Contact: Leticia Anthony (Judy) [facility] Relation: Spouse Healthcare Directive None Transportation [...] (Medicare Part A and B) Secondary Insurance: [place] ([facility]) Additional Coverage: [place] (fills at [facility]. ) ? Source of Income Source Of Income: SSDI ? Financial Assistance Needed? None Psychosocial Needs ? Mental Health Mental Health History: No ? Substance Use History Substance Use History Screen: No ? Other None Current/Previous Services ? PCP Chris Seay APRN at [facility] ([phone] ext [phone]) ? Pharmacy [employer] [address] [address] ? Durable Medical Equipment Durable Medical Equipment [...] ? Outpatient Therapy PT: No OT: No LEAD DEVELOPER: No ? [facility] SN[facility]: No NH: No Pt's OCTAVIANO Moseley works at [employer], therefore family understanding of LTC and SNF level of cares. ? Inpatient Rehab IPR: No ? [facility] LTACH: No ? Acute Hospital Stay Acute Hospital Stay: In the past Was patient's stay within the last 30 days?: No Sophia Vaughn LMSW Phone: [phone] Pager: [phone] * Acute Stroke Response - Alonzo Watt [...] 57 y.o. male with A-Fib (on Coumadin HR PAYROLL COORDINATOR), IDDM, Prostate CA, OD blindness, HLD and [...] Monitor telemetry for arrhythmia - NPO - LEAD DEVELOPER to eval speech when more alert - PT/OT to eval and treat - Rehab Medicine Consult The patient was seen and discussed with Dr. Gutierrez History of Present Ilness History of Present Illness: Mr. Anthony presented to [facility] on 06/29 with uro-sepsis and DKA. Supra- [...] then to IR for EVT. At [facility] he had dropping Hgb and positive heme [...] language) 2=neither correct 2 1c. 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, bridge club manager and release non-paretic hand (other 1 [...] Medications: [MAR Hold] calcium gluconate IV PRN (Relay Associate from Rx) AND Ionized Calcium PRN AND Notify Physician Ongoing, [MAR Hold] magnesium sulfate PRN AND Magnesium PRN AND Notify Physician Ongoing, [MAR Hold] potassium chloride SR PRN OR [MAR Hold] potassium chloride PRN, [MAR Hold] sodium phosphate IVPB PRN (Relay Associate from Rx) AND Phosphorus PRN AND Notify [...] Date: 07/01/2018 Attending Physician: Lulu Perry MD Search Engine Optimization Strategist(s): Miri Nair Stroke Treatment Time out performed: [...] Sedated from ativan Lulu Perry MD Pager: [phone] * Acute Stroke Response - Hannah Ceballos RN - 07/01/2018 12:14 PM CDT Formatting of this note may be different from the original. RN Stroke Activation Summary Date of Service: 07/01/2018 Valdez Anthony is a 57 y.o. male. : 1960 Allergies: Patient has no known allergies. Patient Arrival: 1118 ASRT Arrival: 1108 Location of Response : [place] [facility] elevator 2nd floor Page Received: 1102 (ETA 10 minutes) EMS Agency: [facility] Outside Hospital: [facility] Clinical Presentation: Decreased LOC, Dysarthria, Left facial [...] Summary: Report received from MAXINE Pardo at [facility] in [place], [place]. Per report patient last known well today at 0730. At 0825 she noted patient to be less responsive with left side flaccid, dysarthria and left facial droop. Patient transferred to [facility] and upon arrival had decreased LOC. Flight [...] dressing applied at 1228. Patient transported to [place] [facility]120, VSS and no complications noted. Report given to MAXINE Cooley. CT/CTP/CTA/IR: CTA/CTP time: 1125 CTA/CTP Interpretation time: 1145 N/A Plan: Patient admitted to [place] [facility]120 post procedure for further evaluation and [...] MAIN LAB Performing Organization Address [facility] Cent[facility]ode Phone Number [employer] MAIN LAB [address] [place] [address] * POC GLUCOSE (07/09/2018 3:34 PM) Glucose, POC 66 (L) 70 - 100 MG/DL [facility] MAIN LAB Performing Organization Address [facility] Cent[facility]ode Phone Number [facility] MAIN LAB [address] [place] [address] * POC GLUCOSE (07/09/2018 3:18 PM) Glucose, POC 69 (L) 70 - 100 MG/DL [facility] MAIN LAB Performing Organization Address [facility] Cent[facility]ode Phone Number [facility] MAIN LAB [address] [place] [address] * POC GLUCOSE (07/09/2018 1:49 PM) Glucose, POC 136 (H) 70 - 100 MG/DL [facility] MAIN LAB Performing Organization Address [facility] Cent[facility]ode Phone Number [facility] MAIN LAB [address] [place] [address] * POC GLUCOSE (07/09/2018 11:40 AM) Glucose, POC 158 (H) 70 - 100 MG/DL [facility] MAIN LAB Performing Organization Address [facility] Centercotn Phone Number [facility] MAIN LAB [address] [place] [address] * POC GLUCOSE (07/09/2018 8:35 AM) Glucose, POC 104 (H) 70 - 100 MG/DL [facility] MAIN LAB Performing Organization Address [facility]n Phone Number [facility] MAIN LAB [address] [place] [address] * COMPREHENSIVE METABOLIC PANEL (07/09/2018 5:47 AM) [...] Specimen Blood Performing Organization Address [facility] Cent[facility]ode Phone Number [facility] MAIN LAB [address] [place] [address] * CBC AND DIFF (07/09/2018 5:47 AM) [...] LAB MCHC 33.2 32.0 - 36.0 G/DL MAIN LAB RDW 14.3 11 - 15 % [facility] MAIN LAB Platelet Count 459 (H) 150 - 400 K/UL MAIN LAB MPV 8.2 7 - 11 FL MAIN LAB Neutrophils 77 41 - 77 % [facility] MAIN LAB Lymphocytes 14 (L) 24 - 44 % [facility] MAIN LAB Monocytes 8 4 - 12 % MAIN LAB Eosinophils 1 0 - 5 % [facility] LAB Basophils 0 0 - 2 % MAIN LAB Absolute Neutrophil Count 11.70 (H) 1.8 - 7.0 K/UL MAIN LAB Absolute Lymph Count 2.10 1.0 - 4.8 K/UL MAIN LAB Absolute Monocyte Count 1.30 (H) 0 - 0.80 K/UL [facility] LAB Absolute Eosinophil Count 0.20 0 - 0.45 K/UL MAIN LAB Absolute Basophil Count 0.00 0 - 0.20 K/UL MAIN LAB Specimen Blood Performing Organization Address City/[facility]/Zipcode Phone Number MAIN LAB [address] [place] [address] * POC GLUCOSE (07/09/2018 3:09 AM) Glucose, POC 151 (H) 70 - 100 MG/DL MAIN LAB Performing Organization Address City/[facility] Cent[facility]ode Phone Number MAIN LAB [address] [place] [address] * POC GLUCOSE (07/09/2018 1:10 AM) Glucose, POC 80 70 - 100 MG/DL [facility] MAIN LAB Performing Organization Address City/[facility] Centercode Phone Number MAIN LAB [address] [place] [address] * CULTURE-BLOOD W/SENSITIVITY (07/08/2018 10:25 PM) Battery Name BLOOD CULTURE MAIN LAB Specimen Description BLOOD MAIN LAB LEFT HAND Special Requests NONE MAIN LAB Culture NO GROWTH 5 DAYS [facility] MAIN LAB Report Status FINAL MAIN LAB 07/14/2018 Specimen Blood Performing Organization Address City/[facility]/Zipcode Phone Number MAIN LAB [address] [place] [address] * POC GLUCOSE (07/08/2018 9:52 PM) Glucose, POC 96 70 - 100 MG/DL [facility] MAIN LAB Performing Organization Address City/[facility]/Zipcode Phone Number MAIN LAB [address] [place] [address] * CULTURE-BLOOD W/SENSITIVITY (07/08/2018 8:20 PM) Battery Name BLOOD CULTURE MAIN LAB Specimen Description BLOOD MAIN LAB LEFT ANTECUBITAL Special Requests NONE MAIN LAB Culture NO GROWTH 5 DAYS MAIN LAB Report Status FINAL MAIN LAB 07/14/2018 Specimen Blood Performing Organization Address City/[facility] Centercode Phone Number MAIN LAB [address] [place] [address] * POC GLUCOSE (07/08/2018 5:56 PM) Glucose, POC 129 (H) 70 - 100 MG/DL [facility] MAIN LAB Performing Organization Address [facility] Centercode Phone Number MAIN LAB [address] [place] [address] * SURGICAL PATHOLOGY (07/08/2018 4:34 PM) PATHOLOGY REPORT [facility] [employer] LAB [facility] [email or web address] Department of Pathology and Laboratory Medicine [address] [place] [address] Surgical Pathology Office:[phone] :[phone] SURGICAL PATHOLOGY REPORT NAME: VALDEZ ANTHONY SURG PATH #: [id number] MR #: [id number] SPECIMEN CLASS: SR BILLING #: [id number] ALT ID #:LOCATION: DISCHARGED DATE OF PROCEDURE: [...] * REFLEX CULTURE LABEL (07/08/2018 4:09 PM) Reflex Culture LAB LABEL [facility] MAIN [facility] Specimen Urine Performing Organization Address [facility] Phone Number [facility] [address] [place] [address] * URINALYSIS MICROSCOPIC REFLEX TO CULTURE (07/08/2018 4:09 PM) WBCs,UA 0-2 0 - 2 /HPF [facility] RBCs,UA 0-2 0 - 3 /HPF [facility] Comment,UA Urine submitted for reflex [facility] culture if criteria are met:WBC>10, positive nitrite and/or >=1+ leukocyte esterase. If quantity is not sufficient, an addendum will follow. Specimen Urine Performing Organization Address [facility] Phone Number MAIN LAB [address] [place] [address] * URINALYSIS DIPSTICK REFLEX TO CULTURE (07/08/2018 4:09 PM) Color,UA STRAW [facility] Turbidity,UA CLEAR CLEAR-CLEAR [facility] Specific Hague-Urine 1.005 1.003 - 1.035 [facility] MAIN LAB [...] MAIN LAB Specimen Urine Performing Organization Address [facility] Phone Number MAIN LAB [address] [place] [address] * CHEST SINGLE VIEW (07/08/2018 2:15 PM) [...] on 07/08/2018 2:17 PM. Performing Organization Address City/[facility]/Zipcode Phone Number [facility] RAD RESULTS * POC GLUCOSE (07/08/2018 1:57 PM) Glucose, POC 75 70 - 100 MG/DL [facility]IN [facility] Performing Organization Address City/[facility] Phone Number [facility] [address] [place] [address] * POC GLUCOSE (07/08/2018 1:21 PM) Glucose, POC 67 (L) 70 - 100 MG/DL [facility] Performing Organization Address City/[facility]/Zipcode Phone Number [facility] MAIN [facility] [address] [place] [address] * POC GLUCOSE (07/08/2018 11:46 AM) Glucose, POC 164 (H) 70 - 100 MG/DL [facility]IN [facility] Performing Organization Address City/[facility] Phone Number [facility] [address] [place] [address] * POC GLUCOSE (07/08/2018 11:22 AM) Glucose, POC 40 (LL) 70 - 100 MG/DL MAIN LAB Performing Organization Address City/State/Zipcode Phone Number MAIN LAB [address] [place] [address] * EGD REPORT (07/08/2018 10:48 AM) Provation Report Patient Name: Raj DIMAS OTHER RESULTS Procedure Date: 07/08/2018 10:48 AM CSN: [id number] Date of : 1960 Gender: Male Attending Physician: Clara Carolina MD Procedure: Upper GI endoscopy Indications: Anemia (Mixed picture of anemia of chronic disease + Iron deficiency anemia), new onset of Afib and not on AC. Providers: Clara Carolina MD (Doctor), Roberto Dutta MD (Fellow), Alvaro Banegas (Nurse), Minna Jiménez RN (Nurse), Abisai Burden, Private Equity Associate (Private Equity Associate) Referring Physician: Referral Self Medications: Monitored Anesthesia [...] 55 seconds Procedure Code(s): --- Professional --- 83241, Esophagogastroduodenoscopy, flexible, transoral; with biopsy, single or multiple Diagnosis Code(s): --- Professional --- K44.9, Diaphragmatic hernia without obstruction or gangrene K31.89, Other diseases of stomach and duodenum D50.0, Iron deficiency anemia secondary to blood loss (chronic) CPT copyright 2016 [employer]. All rights reserved. The codes documented in this report are preliminary and upon book or script editor review may be revised to meet current compliance requirements. Attending Participation: I was present and participated during the entire procedure, including non-jacobs portions. MD Clraa De Oliveira MD 07/08/2018 1:28:58 PM The attending physician has electronically signed and finalized this document. Roberto Dutta MD Number of Addenda: 0 Note Initiated On: 07/08/2018 10:48 AM Performing Organization Address City/State/Zipcode Phone Number [facility] OTHER RESULTS * COLONOSCOPY (07/08/2018 10:47 AM) Provation Report Patient Name: Raj DIMAS OTHER RESULTS Procedure Date: 07/08/2018 10:47 AM [facility]: [id number] Date of : 1960 Gender: Male Attending Physician: Clara Carolina MD Procedure: Colonoscop y Indications: Anemia (Mixed picture of anemia of chronic disease + Iron deficiency anemia), new onset of Afib and not on AC. Providers: Clara Carolina MD (Doctor), Roberto Dutta MD (Fellow), Alvaro Banegas (Nurse), Minna Jiménez RN (Nurse), Abisai Burden, Private Equity Associate (Private Equity Associate) Referring Physician: Gerard Salazar MD Medications: Monitored [...] 15 seconds Procedure Code(s): --- Professional --- 82086, Colonoscopy, flexible; diagnostic, including collection of specimen(s) by brushing or washing, when performed (separate procedure) Diagnosis Code(s): --- Professional --- D50.0, Iron deficiency anemia secondary to blood loss (chronic) CPT copyright 2016 [employer]. All rights reserved. The codes documented in this report are preliminary and upon book or script editor review may be revised to meet current [...] Address City/State/Zipcode Phone Number MAIN LAB [address] [place] [address] * PROCALCITONIN (07/08/2018 5:53 AM) Procalcitonin 0.13 (H) <0.10 NG/ML [facility] MAIN [facility] Performing Organization Address [facility] Phone Number MAIN LAB [address] [place] [address] * COMPREHENSIVE METABOLIC PANEL (07/08/2018 5:53 AM) [...] Specimen Blood Performing Organization Address [facility]/Zipcode Phone Number [facility] MAIN [facility] [address] [place] [address] * CBC AND DIFF (07/08/2018 5:53 AM) [...] MAIN LAB Specimen Blood Performing Organization Address City/[facility] Phone Number MA[facility] LAB [address] [place] [phone] * POC GLUCOSE (07/07/2018 9:26 PM) Glucose, POC 176 (H) 70 - 100 MG/DL [facility] MAIN [facility] Performing Organization Address City/[facility] Phone Number MA[facility] LAB [address] [place] [address] * POC GLUCOSE (07/07/2018 5:54 PM) Glucose, POC 111 (H) 70 - 100 MG/DL [facility] MAIN [facility] Performing Organization Address City/[facility] Phone Number MA[facility] LAB [address] [place] [address] * POC GLUCOSE (07/07/2018 11:30 AM) Glucose, POC 90 70 - 100 MG/DL [facility] Performing Organization Address City/[facility] Phone Number MAIN LAB [address] [place] [address] * CBC AND DIFF (07/07/2018 8:00 AM) [...] 1.90 (H) 0 - 0.80 K/UL [facility] Absolute Eosinophil Count 0.20 0 - 0.45 K/UL [facility] MAIN [facility] Absolute Basophil Count 0.10 0 - 0.20 K/UL [facility] Specimen Blood Performing Organization Address City/[facility] Phone Number [facility] [address] [place] [address] * POC GLUCOSE (07/07/2018 7:49 AM) Glucose, POC 182 (H) 70 - 100 MG/DL MAIN LAB Performing Organization Address City/[facility] Phone Number [facility] [address] [place] [address] * COMPREHENSIVE METABOLIC PANEL (07/07/2018 5:45 AM) [...] Clinical Pharmacist for questions. Performing Organization Address City/[facility]/Zipcode Phone Number MAIN LAB [address] [place] [address] * HEMOGLOBIN (07/07/2018 5:45 AM) Hemoglobin 9.5 (L) 13.5 - 16.5 GM/DL MAIN LAB Comment: Corrected on 07/09 AT 1021: previously reported as DUPLICATE ORDER, Corrected on 07/07 AT 0811: previously reported as 9.5 Specimen Blood Performing Organization Address [facility] Phone Number MAIN LAB [address] [place] [address] * HEMOGLOBIN (07/06/2018 10:45 PM) Hemoglobin 10.5 (L) 13.5 - 16.5 GM/DL MAIN LAB Specimen Blood Performing Organization Address City/[facility]/Zipcode Phone Number MAIN LAB [address] [place] [address] * OCCULT BLOOD NON COLON CANCER SCREEN (07/06/2018 10:45 PM) Battery Name OCCULT BLOOD SCREEN MAIN LAB Specimen Description FECES [facility] MAIN LAB Special Requests NONE [facility] MAIN [facility] Occult Blood NEGATIVE MAIN LAB Report Status FINAL MAIN LAB 07/06/2018 Specimen Stool - Feces Performing Organization Address City/[facility]/Zipcode Phone Number MAIN LAB [address] [place] [address] * POC GLUCOSE (07/06/2018 9:04 PM) Glucose, POC 115 (H) 70 - 100 MG/DL [facility]IN [facility] Performing Organization Address City/[facility]/Zipcode Phone Number MAIN LAB [address] [place] [address] * POC GLUCOSE (07/06/2018 5:11 PM) Glucose, POC 150 (H) 70 - 100 MG/DL [facility]IN [facility] Performing Organization Address City/[facility]/Zipcode Phone Number MAIN LAB [address] [place] [address] * POC GLUCOSE (07/06/2018 2:36 PM) Glucose, POC 196 (H) 70 - 100 MG/DL [facility]IN [facility] Performing Organization Address City/[facility]/Zipcode Phone Number MAIN LAB [address] [place] [address] * HEMOGLOBIN (07/06/2018 1:31 PM) Hemoglobin 8.9 (L) 13.5 - 16.5 GM/DL MAIN LAB Specimen Blood Performing Organization Address City/[facility]/Zipcode Phone Number MAIN LAB [address] [place] [address] * POC GLUCOSE (07/06/2018 11:49 AM) Glucose, POC 153 (H) 70 - 100 MG/DL [facility] MAIN [facility] Performing Organization Address City/[facility]/Zipcode Phone Number MAIN LAB [address] [place] [address] * POC GLUCOSE (07/06/2018 7:29 AM) Glucose, POC 130 (H) 70 - 100 MG/DL MAIN LAB Performing Organization Address City/[facility]/Zipcode Phone Number MAIN LAB [address] [place] [address] * HEMOGLOBIN (07/06/2018 4:27 AM) Hemoglobin 9.1 (L) 13.5 - 16.5 GM/DL MAIN LAB Specimen Blood Performing Organization Address City/[facility]/Zipcode Phone Number MAIN LAB [address] [place] [address] * CBC (07/06/2018 4:27 AM) White Blood [...] MAIN LAB Specimen Blood Performing Organization Address City/[facility] Phone Number [facility] [address] [place] [address] * BASIC METABOLIC PANEL (07/06/2018 4:27 AM) Sodium 138 137 - 147 MMOL/L MAIN LAB Potassium 3.8 3.5 - 5.1 MMOL/L MAIN LAB Chloride 103 98 - 110 MMOL/L MAIN LAB CO2 26 21 - 30 [...] Pharmacist for questions. eGFR >60 >60 mL/min [facility] Comment: The eGFR is not validated for use in drug dosing adjustments.Continue to use estimated creatinine clearance per dosing reference text.Please contact the Clinical Pharmacist for questions. Specimen Blood Performing Organization Address City/[facility] Phone Number [facility] [address] [place] [address] * POC GLUCOSE (07/06/2018 2:35 AM) Glucose, POC 132 (H) 70 - 100 MG/DL MAIN LAB Performing Organization Address City/[facility]/Zipcode Phone Number [facility] MAIN [facility] [address] [place] [address] * POC GLUCOSE (07/05/2018 10:09 PM) Glucose, POC 89 70 - 100 MG/DL [facility] MAIN [facility] Performing Organization Address City/[facility] Phone Number [facility] [address] [place] [address] * HEMOGLOBIN (07/05/2018 9:40 PM) Hemoglobin 10.1 (L) 13.5 - 16.5 GM/DL MAIN LAB Specimen Blood Performing Organization Address City/[facility] Phone Number MAIN LAB [address] [place] [address] * POC GLUCOSE (07/05/2018 9:37 PM) Glucose, POC 77 70 - 100 MG/DL [facility] MAIN [facility] Performing Organization Address City/[facility] Phone Number MAIN LAB [address] [place] [address] * POC GLUCOSE (07/05/2018 8:15 PM) Glucose, POC 81 70 - 100 MG/DL [facility] MAIN [facility] Performing Organization Address City/[facility] Phone Number MA[facility] LAB [address] [place] [address] * CULTURE-URINE W/SENSITIVITY (07/05/2018 6:45 PM) Battery Name URINE CULTURE [facility] MAIN LAB Specimen Description URINE [facility]IN [facility] Special Requests NONE [facility] MAIN LAB Culture NO GROWTH [facility] MAIN [facility] Report Status FINAL [facility]IN LAB 07/06/2018 Specimen Urine Performing Organization Address [facility] Phone Number [facility] [address] [place] [address] * UA REFLEX CULTURE LABEL (07/05/2018 6:45 PM) UA Reflex Culture LAB LABEL [facility] MAIN [facility] Specimen Urine Performing Organization Address City/[facility]/Zipcode Phone Number MAIN LAB [address] [place] [address] * URINALYSIS MICROSCOPIC REFLEX TO CULTURE (07/05/2018 [...] MAIN LAB Specimen Urine Performing Organization Address City/[facility] Phone Number [facility] [address] [place] [address] * URINALYSIS DIPSTICK REFLEX TO CULTURE (07/05/2018 6:45 PM) Color,UA YELLOW [facility] MAIN [facility] Turbidity,UA 2+ (A) CLEAR-CLEAR [facility] MAIN [facility] Specific Hague-Urine 1.017 1.003 - 1.035 [facility] MAIN LAB [...] Specimen Urine Performing Organization Address [facility] Phone Number MAIN LAB [address] [place] [address] * POC GLUCOSE (07/05/2018 4:37 PM) Glucose, POC 79 70 - 100 MG/DL [facility]IN [facility] Performing Organization Address [facility] Phone Number [facility] [address] [place] [address] * POC GLUCOSE (07/05/2018 2:02 PM) Glucose, POC 92 70 - 100 MG/DL [facility]IN [facility] Performing Organization Address [facility] Phone Number [facility] [address] [place] [address] * HEMOGLOBIN (07/05/2018 2:00 PM) Hemoglobin 9.6 (L) 13.5 - 16.5 GM/DL [facility] MAIN [facility] Specimen Blood Performing Organization Address City/[facility] Phone Number [facility] [address] [place] [phone] * POC GLUCOSE (07/05/2018 11:32 AM) Glucose, POC 102 (H) 70 - 100 MG/DL [facility]IN [facility] Performing Organization Address City/[facility] Phone Number [facility] [address] [place] [address] * ABDOMEN AP ONLY (07/05/2018 9:20 AM) [...] on 07/05/2018 10:21 AM. Performing Organization Address City/[facility] Phone Number [facility] RAD RESULTS * POC GLUCOSE (07/05/2018 6:56 AM) Glucose, POC 139 (H) 70 - 100 MG/DL [facility]IN [facility] Performing Organization Address City/[facility] Phone Number [facility] [address] [place] [address] * CBC (07/05/2018 5:50 AM) White Blood [...] LAB MPV 8.7 7 - 11 FL [facility] Specimen Blood Performing Organization Address City/[facility] Phone Number MAIN LAB [address] [place] [address] * POC GLUCOSE (07/05/2018 5:29 AM) Glucose, POC 125 (H) 70 - 100 MG/DL MAIN LAB Performing Organization Address City/[facility] Phone Number [facility] [address] [place] [address] * BASIC METABOLIC PANEL (07/05/2018 5:25 AM) [...] City/State/Zipcode Phone Number [facility] MAIN [facility] [address] [place] [address] * POC GLUCOSE (07/05/2018 2:37 AM) Glucose, POC 103 (H) 70 - 100 MG/DL [facility] MAIN [facility] Performing Organization Address City/State/Zipcode Phone Number [facility]IN [facility] [address] [place] [address] * POC GLUCOSE (07/05/2018 1:31 AM) Glucose, POC 94 70 - 100 MG/DL [facility]IN [facility] Performing Organization Address City/State/Zipcode Phone Number MAIN LAB [address] [place] [address] * POC GLUCOSE (07/05/2018 12:41 AM) Glucose, POC 121 (H) 70 - 100 MG/DL [facility]IN [facility] Performing Organization Address City/[facility]/Zipcode Phone Number MAIN LAB [address] [place] [address] * POC GLUCOSE (07/04/2018 11:19 PM) Glucose, POC 84 70 - 100 MG/DL [facility] MAIN [facility] Performing Organization Address City/[facility]/Zipcode Phone Number MAIN LAB [address] [place] [address] * HEMOGLOBIN (07/04/2018 9:30 PM) Hemoglobin 13.5 13.5 - 16.5 GM/DL [facility] MAIN LAB Specimen Blood Performing Organization Address City/[facility]/Zipcode Phone Number MAIN LAB [address] [place] [address] * POC GLUCOSE (07/04/2018 9:15 PM) Glucose, POC 105 (H) 70 - 100 MG/DL [facility] MAIN [facility] Performing Organization Address City/State/Zipcode Phone Number [facility] MAIN [facility] [address] [place] [address] * POC GLUCOSE (07/04/2018 7:50 PM) Glucose, POC 164 (H) 70 - 100 MG/DL [facility] MAIN [facility] Performing Organization Address City/State/Zipcode Phone Number MAIN LAB [address] [place] [address] * POC GLUCOSE (07/04/2018 7:23 PM) Glucose, POC 44 (LL) 70 - 100 MG/DL [facility] MAIN [facility] Performing Organization Address City/[facility] Phone Number [facility] [address] [place] [address] * POC GLUCOSE (07/04/2018 5:10 PM) Glucose, POC 96 70 - 100 MG/DL [facility] MAIN [facility] Performing Organization Address City/[facility] Phone Number [facility] [address] [place] [address] * IRON + BINDING CAPACITY + %SAT+ FERRITIN (07/04/2018 2:20 PM) Iron 49 (L) 50 - 185 MCG/DL [facility] MAIN LAB Iron Binding-TIBC 212 (L) 270 - 380 MCG/DL [facility] MAIN LAB % Saturation 23 (L) 28 - 42 % [facility] MAIN LAB Ferritin 383 (H) 30 - 300 NG/ML [facility] MAIN LAB Specimen Blood Performing Organization Address City/[facility] Phone Number [facility] [address] [place] [address] * POC GLUCOSE (07/04/2018 2:19 PM) Glucose, POC 137 (H) 70 - 100 MG/DL [facility] MAIN [facility] Performing Organization Address City/[facility] Phone Number [facility] [address] [place] [address] * POC GLUCOSE (07/04/2018 1:42 PM) Glucose, POC 114 (H) 70 - 100 MG/DL [facility] MAIN [facility] Performing Organization Address City/[facility] Phone Number [facility] [address] [place] [address] * POC GLUCOSE (07/04/2018 1:16 PM) Glucose, POC 55 (L) 70 - 100 MG/DL [facility] MAIN [facility] Performing Organization Address City/[facility]/Zipcode Phone Number [facility] MAIN [facility] [address] [place] [address] * HEMOGLOBIN (07/04/2018 1:15 PM) Hemoglobin 9.4 (L) 13.5 - 16.5 GM/DL [facility] MAIN LAB Specimen Blood Performing Organization Address City/State/Zipcode Phone Number MAIN LAB [address] [place] [address] * POC GLUCOSE (07/04/2018 12:52 PM) Glucose, POC 66 (L) 70 - 100 MG/DL [facility] MAIN [facility] Performing Organization Address City/State/Zipcode Phone Number MAIN LAB [address] [place] [address] * POC GLUCOSE (07/04/2018 12:19 PM) Glucose, POC 66 (L) 70 - 100 MG/DL [facility] MAIN [facility] Performing Organization Address City/State/Zipcode Phone Number MAIN LAB [address] [place] [address] * POC GLUCOSE (07/04/2018 12:17 PM) Glucose, POC 59 (L) 70 - 100 MG/DL [facility] MAIN [facility] Performing Organization Address City/State/Zipcode Phone Number MAIN LAB [address] [place] [address] * POC GLUCOSE (07/04/2018 10:28 AM) Glucose, POC 144 (H) 70 - 100 MG/DL MAIN LAB Performing Organization Address City/State/Zipcode Phone Number MAIN LAB [address] [place] [address] * POC GLUCOSE (07/04/2018 9:31 AM) Glucose, POC 197 (H) 70 - 100 MG/DL [facility] MAIN [facility] Performing Organization Address City/[facility]/Zipcode Phone Number MAIN LAB [address] [place] [address] * POC GLUCOSE (07/04/2018 8:38 AM) Glucose, POC 184 (H) 70 - 100 MG/DL [facility] MAIN [facility] Performing Organization Address City/State/Zipcode Phone Number MAIN LAB [address] [place] [address] * POC GLUCOSE (07/04/2018 7:29 AM) Glucose, POC 150 (H) 70 - 100 MG/DL [facility] MAIN [facility] Performing Organization Address City/State/Zipcode Phone Number MAIN LAB [address] [place] [address] * POC GLUCOSE (07/04/2018 6:31 AM) Glucose, POC 119 (H) 70 - 100 MG/DL [facility] MAIN LAB Performing Organization Address [facility] Phone Number MAIN LAB [address] [place] [address] * CBC (07/04/2018 5:47 AM) White Blood [...] MAIN LAB Specimen Blood Performing Organization Address City/[facility] Phone Number MAIN LAB [address] [place] [address] * BASIC METABOLIC PANEL (07/04/2018 5:47 AM) [...] for questions. Specimen Blood Performing Organization Address City/[facility]/Zipcode Phone Number [facility] MAIN [facility] [address] [place] [address] * POC GLUCOSE (07/04/2018 5:36 AM) Glucose, POC 126 (H) 70 - 100 MG/DL [facility] MAIN [facility] Performing Organization Address City/[facility] Phone Number MAIN LAB [address] [place] [address] * POC GLUCOSE (07/04/2018 4:36 AM) Glucose, POC 94 70 - 100 MG/DL [facility] MAIN LAB Performing Organization Address City/[facility] Phone Number MA[facility] LAB [address] [place] [address] * POC GLUCOSE (07/04/2018 3:24 AM) Glucose, POC 120 (H) 70 - 100 MG/DL [facility] MAIN LAB Performing Organization Address [facility] Phone Number MAIN LAB [address] [place] [address] * POC GLUCOSE (07/04/2018 2:14 AM) Glucose, POC 112 (H) 70 - 100 MG/DL MAIN LAB Performing Organization Address City/[facility] Phone Number MAIN LAB [address] [place] [address] * POC GLUCOSE (07/04/2018 12:37 AM) Glucose, POC 126 (H) 70 - 100 MG/DL MAIN LAB Performing Organization Address [facility] Phone Number MA[facility] LAB [address] [place] [address] * BLOOD TYPE CONFIRMATION - ORDER ONLY IF REQUESTED BY LAB (07/04/2018 12:13 AM) ABO/RH(D) O NEG MAIN LAB Specimen Blood Performing Organization Address [facility] Phone Number MAIN LAB [address] [place] [address] * TYPE & CROSSMATCH (07/03/2018 11:48 PM) Units Ordered 1 MAIN LAB Crossmatch Expires 07/06/2018 MAIN LAB Record Check 2ND TYPE REQUIRED MAIN LAB ABO/RH(D) O NEG MAIN LAB Antibody Screen NEG MAIN LAB Electronic Crossmatch YES MAIN LAB Unit Number [id number] MAIN LAB Blood Component Type RBC,CPDA,LEUKO REDUCED [facility] MAIN LAB Unit Division 0 MAIN LAB Status OF Unit TRANSFUSED MAIN LAB Transfusion Status OK TO TRANSFUSE MAIN LAB Crossmatch Result COMPATIBLE,ELECTRONIC MAIN LAB Specimen Blood Performing Organization Address City/[facility]/Zipcode Phone Number MAIN LAB [address] [place] [address] * POC GLUCOSE (07/03/2018 11:21 PM) Glucose, POC 197 (H) 70 - 100 MG/DL [facility] MAIN LAB Performing Organization Address City/State/Zipcode Phone Number MAIN LAB [address] [place] [address] * POC GLUCOSE (07/03/2018 10:12 PM) Glucose, POC 218 (H) 70 - 100 MG/DL [facility] MAIN LAB Performing Organization Address City/[facility]/Zipcode Phone Number MAIN LAB [address] [place] [address] * HEMOGLOBIN (07/03/2018 10:02 PM) Hemoglobin 6.8 (L) 13.5 - 16.5 GM/DL MAIN LAB Specimen Blood Performing Organization Address City/[facility]/Zipcode Phone Number MAIN LAB [address] [place] [address] * POC GLUCOSE (07/03/2018 9:19 PM) Glucose, POC 187 (H) 70 - 100 MG/DL K[facility] MAIN LAB Performing Organization Address City/[facility]/Zipcode Phone Number MAIN LAB [address] [place] [address] * POC GLUCOSE (07/03/2018 7:40 PM) Glucose, POC 113 (H) 70 - 100 MG/DL [facility] MAIN LAB Performing Organization Address City/[facility]/Zipcode Phone Number MAIN LAB [address] [place] [address] * POC GLUCOSE (07/03/2018 6:37 PM) Glucose, POC 143 (H) 70 - 100 MG/DL [facility] MAIN LAB Performing Organization Address City/[facility]/Zipcode Phone Number MAIN LAB [address] [place] [address] * POC GLUCOSE (07/03/2018 5:31 PM) Glucose, POC 157 (H) 70 - 100 MG/DL [facility] MAIN LAB Performing Organization Address City/State/Zipcode Phone Number [facility] MAIN LAB [address] [place] [address] * POC GLUCOSE (07/03/2018 4:35 PM) Glucose, POC 190 (H) 70 - 100 MG/DL [facility] MAIN LAB Performing Organization Address City/State/Zipcode Phone Number [facility] MAIN LAB [address] [place] [address] * POC GLUCOSE (07/03/2018 3:36 PM) Glucose, POC 190 (H) 70 - 100 MG/DL [facility] MAIN LAB Performing Organization Address City/State/Zipcode Phone Number MAIN LAB [address] [place] [address] * HEMOGLOBIN (07/03/2018 3:25 PM) Hemoglobin 7.2 (L) 13.5 - 16.5 GM/DL [facility] MAIN LAB Specimen Blood Performing Organization Address City/State/Zipcode Phone Number MAIN LAB [address] [place] [address] * POC GLUCOSE (07/03/2018 2:22 PM) Glucose, POC 176 (H) 70 - 100 MG/DL [facility] MAIN LAB Performing Organization Address City/[facility] Phone Number [facility] [address] [place] [address] * POC GLUCOSE (07/03/2018 1:24 PM) Glucose, POC 254 (H) 70 - 100 MG/DL [facility] MAIN LAB Performing Organization Address City/[facility]/Zipcode Phone Number MAIN LAB [address] [place] [address] * POC GLUCOSE (07/03/2018 12:20 PM) Glucose, POC 307 (H) 70 - 100 MG/DL [facility] MAIN LAB Performing Organization Address City/State/Zipcode Phone Number MAIN LAB [address] [place] [address] * POC GLUCOSE (07/03/2018 10:45 AM) Glucose, POC 268 (H) 70 - 100 MG/DL [facility] MAIN LAB Performing Organization Address City/State/Zipcode Phone Number MAIN LAB [address] [place] [address] * POC GLUCOSE (07/03/2018 9:22 AM) Glucose, POC 233 (H) 70 - 100 MG/DL [facility] MAIN LAB Performing Organization Address City/State/Zipcode Phone Number MAIN LAB [address] [place] [address] * SWALLOW MOTION SERIES (07/03/2018 8:59 AM) [...] 9:08 AM. Performing Organization Address [facility] Phone Number RAD RESULTS * POC GLUCOSE (07/03/2018 8:04 AM) Glucose, POC 156 (H) 70 - 100 MG/DL [employer] MAIN LAB Performing Organization Address [facility] Phone Number [employer] MAIN LAB [address] [place] [address] * ECG-SCAN (07/03/2018 7:35 AM) Narrative Performed At Ordered by an unspecified provider. * POC GLUCOSE (07/03/2018 5:03 AM) Glucose, POC 109 (H) 70 - 100 MG/DL [employer] MAIN LAB Performing Organization Address [facility] Phone Number [employer] MAIN LAB [address] [place] [address] * CBC (07/03/2018 4:11 AM) White Blood Cells 13.4 (H) 4.5 - 11.0 K/UL [facility] MAIN LAB RBC 2.57 (L) 4.4 - 5.5 M/UL MAIN LAB Hemoglobin 7.6 (L) 13.5 - 16.5 GM/DL [facility] MAIN LAB Hematocrit 22.7 (L) 40 - 50 % [facility] MAIN LAB MCV 88.3 80 - 100 FL [employer] MAIN LAB MCH 29.5 26 - 34 PG MAIN LAB MCHC 33.4 32.0 - 36.0 G/DL MAIN LAB RDW 14.1 11 - 15 % [facility] MAIN LAB Platelet Count 395 150 - 400 K/UL [employer] MAIN LAB MPV 8.7 7 - 11 FL [employer] MAIN LAB Specimen Blood Performing Organization Address [facility] Phone Number [employer] MAIN LAB [address] [place] [address] * BASIC METABOLIC PANEL (07/03/2018 4:11 AM) [...] Address City/State/Zipcode Phone Number MAIN LAB [address] [place] [address] * POC GLUCOSE (07/03/2018 3:57 AM) Glucose, POC 132 (H) 70 - 100 MG/DL [facility] MAIN LAB Performing Organization Address City/[facility]/Zipcode Phone Number MAIN LAB [address] [place] [address] * POC GLUCOSE (07/03/2018 3:06 AM) Glucose, POC 145 (H) 70 - 100 MG/DL [facility] MAIN LAB Performing Organization Address City/State/Zipcode Phone Number MAIN LAB [address] [place] [address] * POC GLUCOSE (07/03/2018 2:01 AM) Glucose, POC 154 (H) 70 - 100 MG/DL [facility] MAIN LAB Performing Organization Address City/State/Zipcode Phone Number MAIN LAB [address] [place] [address] * POC GLUCOSE (07/03/2018 1:05 AM) Glucose, POC 112 (H) 70 - 100 MG/DL [facility] MAIN LAB Performing Organization Address City/State/Zipcode Phone Number MAIN LAB [address] [place] [address] * POC GLUCOSE (07/03/2018 12:35 AM) Glucose, POC 98 70 - 100 MG/DL [facility] MAIN LAB Performing Organization Address City/State/Zipcode Phone Number [facility] MAIN LAB [address] [place] [address] * POC GLUCOSE (07/03/2018 12:13 AM) Glucose, POC 78 70 - 100 MG/DL [facility] MAIN LAB Performing Organization Address City/State/Zipcode Phone Number MAIN LAB [address] [place] [address] * POC GLUCOSE (07/02/2018 11:03 PM) Glucose, POC 102 (H) 70 - 100 MG/DL [facility] MAIN LAB Performing Organization Address City/State/Zipcode Phone Number MAIN LAB [address] [place] [address] * POC GLUCOSE (07/02/2018 9:56 PM) Glucose, POC 184 (H) 70 - 100 MG/DL [facility] MAIN LAB Performing Organization Address City/State/Zipcode Phone Number MAIN LAB [address] [place] [address] * POC GLUCOSE (07/02/2018 9:36 PM) Glucose, POC 49 (LL) 70 - 100 MG/DL [facility] MAIN LAB Performing Organization Address City/State/Zipcode Phone Number MAIN LAB [address] [place] [address] * POC GLUCOSE (07/02/2018 9:32 PM) Glucose, POC 50 (L) 70 - 100 MG/DL [facility] MAIN LAB Performing Organization Address City/State/Zipcode Phone Number MAIN LAB [address] [place] [address] * POC GLUCOSE (07/02/2018 9:13 PM) Glucose, POC 59 (L) 70 - 100 MG/DL [facility] MAIN LAB Performing Organization Address City/State/Zipcode Phone Number MAIN LAB [address] [place] [address] * POC GLUCOSE (07/02/2018 9:11 PM) Glucose, POC 58 (L) 70 - 100 MG/DL [facility] MAIN LAB Performing Organization Address City/State/Zipcode Phone Number MAIN LAB [address] [place] [address] * POC GLUCOSE (07/02/2018 7:58 PM) Glucose, POC 121 (H) 70 - 100 MG/DL [facility] MAIN LAB Performing Organization Address City/[facility]/Zipcode Phone Number MAIN LAB [address] [place] [address] * POC GLUCOSE (07/02/2018 6:56 PM) Glucose, POC 162 (H) 70 - 100 MG/DL [facility] MAIN LAB Performing Organization Address City/[facility]/Zipcode Phone Number MAIN LAB [address] [place] [address] * POC GLUCOSE (07/02/2018 6:07 PM) Glucose, POC 180 (H) 70 - 100 MG/DL [facility] MAIN LAB Performing Organization Address City/[facility] Phone Number MAIN LAB [address] [place] [address] * POC GLUCOSE (07/02/2018 4:52 PM) Glucose, POC 195 (H) 70 - 100 MG/DL [facility] MAIN LAB Performing Organization Address City/[facility] Phone Number MAIN LAB [address] [place] [address] * POC GLUCOSE (07/02/2018 4:24 PM) Glucose, POC 204 (H) 70 - 100 MG/DL [facility] MAIN LAB Performing Organization Address City/[facility]/Zipcode Phone Number MAIN LAB [address] [place] [address] * POC GLUCOSE (07/02/2018 3:09 PM) Glucose, POC 212 (H) 70 - 100 MG/DL [facility] MAIN LAB Performing Organization Address City/[facility]/Zipcode Phone Number MAIN LAB [address] [place] [address] * POC GLUCOSE (07/02/2018 2:13 PM) Glucose, POC 204 (H) 70 - 100 MG/DL [facility] MAIN LAB Performing Organization Address City/State/Zipcode Phone Number MAIN LAB [address] [place] [address] * POC GLUCOSE (07/02/2018 12:59 PM) Glucose, POC 235 (H) 70 - 100 MG/DL [facility] MAIN LAB Performing Organization Address [facility] Phone Number [facility] MAIN LAB [address] [place] [address] * POC GLUCOSE (07/02/2018 12:02 PM) Glucose, POC 244 (H) 70 - 100 MG/DL [facility] MAIN LAB Performing Organization Address [facility] Phone Number MAIN LAB [address] [place] [address] * POC GLUCOSE (07/02/2018 11:10 AM) Glucose, POC 229 (H) 70 - 100 MG/DL [facility] MAIN LAB Performing Organization Address [facility] Phone Number MAIN LAB [address] [place] [address] * ABDOMEN AP ONLY (07/02/2018 10:20 AM) [...] on 07/02/2018 11:09 AM. Performing Organization Address City/[facility] Phone Number RAD RESULTS * POC GLUCOSE (07/02/2018 10:14 AM) Glucose, POC 212 (H) 70 - 100 MG/DL [facility] MAIN LAB Performing Organization Address City/[facility] Phone Number MAIN LAB [address] [place] [address] * POC GLUCOSE (07/02/2018 9:22 AM) Glucose, POC 209 (H) 70 - 100 MG/DL [facility] MAIN LAB Performing Organization Address City/[facility] Phone Number MAIN LAB [address] [place] [address] * POC GLUCOSE (07/02/2018 8:04 AM) Glucose, POC 186 (H) 70 - 100 MG/DL [facility] MAIN LAB Performing Organization Address City/[facility] Phone Number MAIN LAB [address] [place] [address] * POC GLUCOSE (07/02/2018 6:05 AM) Glucose, POC 142 (H) 70 - 100 MG/DL MAIN LAB Performing Organization Address [facility] Phone Number MAIN LAB [address] [place] [address] * POC GLUCOSE (07/02/2018 5:00 AM) Glucose, POC 125 (H) 70 - 100 MG/DL [facility] MAIN LAB Performing Organization Address City/[facility] Phone Number MAIN LAB [address] [place] [address] * PHOSPHORUS (07/02/2018 4:15 AM) Phosphorus 2.6 2.0 - 4.0 MG/DL MAIN LAB Specimen Blood Performing Organization Address City/[facility] Phone Number MAIN LAB [address] [place] [address] * MAGNESIUM (07/02/2018 4:15 AM) Magnesium 1.9 1.6 - 2.6 mg/dL MAIN LAB Specimen Blood Performing Organization Address City/[facility]/Zipcode Phone Number MAIN LAB [address] [place] [address] * IONIZED CALCIUM (07/02/2018 4:15 AM) Ionized Calcium 1.14 1.0 - 1.3 MMOL/L MAIN LAB Specimen Blood Performing Organization Address City/[facility]/Zipcode Phone Number MAIN LAB [address] [place] [address] * CULTURE-BLOOD W/SENSITIVITY (07/02/2018 4:15 AM) Battery Name BLOOD CULTURE MAIN LAB Specimen Description BLOOD MAIN LAB RIGHT RADIAL ARTERIAL Special Requests NONE MAIN LAB Culture NO GROWTH 5 DAYS [facility] MAIN LAB Report Status FINAL [facility] MAIN LAB 07/08/2018 Specimen Blood Performing Organization Address [facility]/Zipcode Phone Number MAIN LAB [address] [place] [address] * CBC (07/02/2018 4:15 AM) White Blood [...] Specimen Blood Performing Organization Address [facility]/Zipcode Phone Number MAIN LAB [address] [place] [address] * BASIC METABOLIC PANEL (07/02/2018 4:15 AM) [...] City/State/Zipcode Phone Number [facility] MAIN LAB [address] [place] [address] * POC GLUCOSE (07/02/2018 4:00 AM) Glucose, POC 129 (H) 70 - 100 MG/DL [facility] MAIN LAB Performing Organization Address City/[facility]/Zipcode Phone Number [facility] MAIN LAB [address] [place] [address] * POC GLUCOSE (07/02/2018 3:06 AM) Glucose, POC 116 (H) 70 - 100 MG/DL [facility] MAIN LAB Performing Organization Address City/[facility]/Zipcode Phone Number [facility] MAIN LAB [address] [place] [address] * POC GLUCOSE (07/02/2018 2:02 AM) Glucose, POC 113 (H) 70 - 100 MG/DL [facility] MAIN LAB Performing Organization Address City/[facility]/Zipcode Phone Number [facility] MAIN LAB [address] [place] [address] * POC GLUCOSE (07/02/2018 1:12 AM) Glucose, POC 147 (H) 70 - 100 MG/DL [facility] MAIN LAB Performing Organization Address City/[facility]/Zipcode Phone Number [facility] MAIN LAB [address] [place] [address] * POC GLUCOSE (07/02/2018 12:05 AM) Glucose, POC 155 (H) 70 - 100 MG/DL [facility] MAIN LAB Performing Organization Address City/[facility]/Zipcode Phone Number [facility] MAIN LAB [address] [place] [address] * POC GLUCOSE (07/01/2018 11:03 PM) Glucose, POC 128 (H) 70 - 100 MG/DL [facility] MAIN LAB Performing Organization Address City/[facility] Phone Number MAIN LAB [address] [place] [address] * POC GLUCOSE (07/01/2018 10:07 PM) Glucose, POC 208 (H) 70 - 100 MG/DL [facility] MAIN LAB Performing Organization Address City/[facility] Phone Number MAIN LAB [address] [place] [address] * POC GLUCOSE (07/01/2018 9:18 PM) Glucose, POC 184 (H) 70 - 100 MG/DL [facility] MAIN LAB Performing Organization Address [facility] Phone Number MAIN LAB [address] [place] [address] * MRI HEAD WO CONTRAST (07/01/2018 9:10 [...] changes. Major vascular flow voids of [place] and dural venous sinuses are preserved. There is adventism of flow void in the right M1 [...] changes. Major vascular flow voids of the [place] and dural venous sinuses are preserved. There is adventism of flow void in the right M1 [...] noted to be occluded. Performing Organization Address City/[facility]/[employer] Phone Number RAD RESULTS * POC GLUCOSE (07/01/2018 8:07 PM) Glucose, POC 184 (H) 70 - 100 MG/DL MAIN LAB Performing Organization Address City/State/[facility] Phone Number MAIN LAB [address] [place] [address] * POC GLUCOSE (07/01/2018 6:59 PM) Glucose, POC 190 (H) 70 - 100 MG/DL [facility] MAIN LAB Performing Organization Address [facility] Phone Number [facility] MAIN LAB [address] [place] [address] * POC GLUCOSE (07/01/2018 6:03 PM) Glucose, POC 169 (H) 70 - 100 MG/DL [facility] MAIN LAB Performing Organization Address City/[facility] Phone Number MAIN LAB [address] [place] [address] * POC GLUCOSE (07/01/2018 5:10 PM) Glucose, POC 154 (H) 70 - 100 MG/DL [facility] MAIN LAB Performing Organization Address [facility] Phone Number MAIN LAB [address] [place] [address] * POC GLUCOSE (07/01/2018 4:04 PM) Glucose, POC 195 (H) 70 - 100 MG/DL [facility] MAIN LAB Performing Organization Address [facility] Phone Number MAIN LAB [address] [place] [address] * BLOOD GASES, ARTERIAL (07/01/2018 3:06 PM) pH-Arterial 7.34 (L) 7.35 - 7.45 MAIN LAB pCO2-Arterial 39 35 - 45 MMHG KU MAIN LAB pO2-Arterial 102 (H) 80 - 100 MMHG MAIN LAB Base Deficit-Arterial 4.6 MMOL/L MAIN LAB O2 Sat-Arterial 97.5 95 - 99 % MAIN LAB Podboldpbsa-LWQ-Fzo 20.6 (L) 21 - 28 MMOL/L MAIN LAB Specimen Blood, arterial - Blood Performing Organization Address [facility] Phone Number MAIN LAB [address] [place] [address] * POC GLUCOSE (07/01/2018 3:05 PM) Glucose, POC 195 (H) 70 - 100 MG/DL [facility] MAIN LAB Performing Organization Address [facility] Phone Number MAIN LAB [address] [place] [address] * CT HEAD WO CONTRAST (07/01/2018 2:46 [...] 72.37 % OTHER OUTSIDE LAB AV index ([place]) 0.56 OTHER OUTSIDE LAB E/A ratio 1.35 OTHER OUTSIDE LAB E/E' ratio 10.67 OTHER OUTSIDE LAB CV ECHO PV CARE AIDE Yasir RN OTHER OUTSIDE LAB LV mass 118.49 96 - 200 g OTHER OUTSIDE LAB RWT 0.36 <=0.42 OTHER OUTSIDE LAB TV rest pulmonary artery 22 mmHg OTHER OUTSIDE LAB pressure Right Heart Systolic TDI 0.110 m/s OTHER OUTSIDE LAB S' Cardiology Ultrasound Siemens [id number] OTHER OUTSIDE LAB Machine ECHO EF 60 [...] study available for comparison Performing Organization Address City/[facility]/Zipcode Phone Number OTHER OUTSIDE LAB * CULTURE-BLOOD W/SENSITIVITY (07/01/2018 1:04 PM) Battery Name BLOOD CULTURE [facility] MAIN LAB Specimen Description BLOOD MAIN LAB LEFT ANTECUBITAL Special Requests NONE [facility] MAIN LAB Culture NO GROWTH 5 DAYS [facility] MAIN LAB Report Status FINAL [facility] MAIN LAB 07/07/2018 Specimen Blood Performing Organization Address City/[facility]/Zipcode Phone Number MAIN LAB [address] [place] [address] * POC GLUCOSE (07/01/2018 1:02 PM) Glucose, POC 169 (H) 70 - 100 MG/DL [facility] MAIN LAB Performing Organization Address City/[facility] Phone Number [facility] MAIN LAB [address] [place] [address] * UA REFLEX CULTURE LABEL (07/01/2018 12:53 PM) UA Reflex Culture LAB LABEL MAIN LAB Specimen Urine Performing Organization Address City/[facility] Phone Number MAIN LAB [address] [place] [address] * URINALYSIS MICROSCOPIC REFLEX TO CULTURE (07/01/2018 [...] MAIN LAB Specimen Urine Performing Organization Address [facility] Phone Number MAIN LAB [address] [place] [address] * URINALYSIS DIPSTICK REFLEX TO CULTURE (07/01/2018 12:53 PM) Color,UA STRAW [facility] MAIN LAB Turbidity,UA CLEAR CLEAR-CLEAR [facility] MAIN LAB Specific [place]-Urine 1.018 1.003 - 1.035 KU MAIN LAB [...] MAIN LAB Specimen Urine Performing Organization Address [facility] Phone Number MAIN LAB [address] [place] [address] * LACTIC ACID(LACTATE) (07/01/2018 12:50 PM) Lactic Acid 1.5 0.5 - 2.0 MMOL/L MAIN LAB Performing Organization Address [facility] Phone Number MAIN LAB [address] [place] [address] * BETA HYDROXYBUTYRATE (KETONES) (07/01/2018 12:50 PM) Beta Hydroxybutyrate 0.1 <0.3 MMOL/L [facility] MAIN LAB Comment: Beta hydroxybutyrate (BOHB) is the most abundant ketone (78%), followed by acetoacetate (20%) and acetone (2%).Measurement BOHB is recommended to assess ketones in DKA. Expected BOHB Results for DKA: Initial presentation high/increasing During treatment decreasing Resolved decreasing/normal Performing Organization Address [facility] Phone Number MAIN LAB [address] [place] [address] * LACTIC ACID (BG - RAPID LACTATE) (07/01/2018 12:50 PM) Lactic Acid,BG 1.5 0.5 - 2.0 MMOL/L MAIN LAB Specimen Blood Performing Organization Address City/[facility]/Zipcode Phone Number K[facility] MAIN LAB [address] [place] [address] * CBC AND DIFF (07/01/2018 12:50 PM) [...] MAIN LAB Specimen Blood Performing Organization Address City/[facility]/Zipcode Phone Number [facility] MAIN LAB [address] [place] [address] * IONIZED CALCIUM (07/01/2018 12:50 PM) Ionized Calcium 1.14 1.0 - 1.3 MMOL/L MAIN LAB Specimen Blood Performing Organization Address City/State/Zipcode Phone Number [facility] MAIN LAB [address] [place] [address] * PHOSPHORUS (07/01/2018 12:50 PM) Phosphorus 2.6 2.0 - 4.0 MG/DL [facility] MAIN LAB Specimen Blood Performing Organization Address [facility] Phone Number [facility] MAIN LAB [address] [place] [address] * MAGNESIUM (07/01/2018 12:50 PM) Magnesium 2.0 1.6 - 2.6 mg/dL [facility] MAIN LAB Specimen Blood Performing Organization Address [facility] Phone Number [facility] MAIN LAB [address] [place] [address] * LIPID PROFILE (07/01/2018 12:50 PM) Cholesterol [...] 130 mg/dL. Specimen Blood Performing Organization Address [facility] Phone Number [facility] MAIN LAB [address] [place] [address] * COMPREHENSIVE METABOLIC PANEL (07/01/2018 12:50 PM) [...] for questions. Specimen Blood Performing Organization Address City/[facility]/Zipcode Phone Number MAIN LAB [address] [place] [address] * HEMOGLOBIN A1C (07/01/2018 12:50 PM) Hemoglobin A1C 17.4 (H) 4.0 - 6.0 % MAIN LAB Comment: The ADA recommends that most patients with type 1 and type 2 diabetes maintain an A1c level <7%. Specimen Blood Performing Organization Address City/[facility] Phone Number [facility] LAB [address] [place] [address] * IR ARTERIOGRAM NEURO (07/01/2018 12:29 PM) [...] Fentanyl 25 mcg Contrast - 100 cc [id number] Total mGy - 421 Anesthesia:conscious sedation Consent [...] the sheath was advanced over a 5 Cymraes 125 cm Vert catheter over a 180 cm 0.035 [place] wire over the aortic arch and into [...] therefore, hemostasis was achieved using an 8 [employer]es Angioseal closure device followed by manual pressure [...] Fentanyl 25 mcg Contrast - 100 cc [id number] Total mGy - 421 Anesthesia: conscious sedation [...] the sheath was advanced over a 5 Cym[place]es 125 cm Vert catheter over a 180 cm 0.035 [place] wire over the aortic arch and into [...] therefore, hemostasis was achieved using an 8 [employer]es Angioseal closure device followed by manual pressure [...] teamat 11:51 AM on 07/01/2018 by the compliance vice president in consultation with TALIA BOSTON M.D.. Approved [...] at 11:51 AM on 07/01 by the compliance vice president in consultation with TALIA BOSTON M.D.. Approved [...] teamat 11:51 AM on 07/01/2018 by the compliance vice president in consultation with TALIA BOSTON M.D.. Approved [...] at 11:51 AM on 07/01 by the compliance vice president in consultation with TALIA BOSTON M.D.. Approved [...] teamat 11:51 AM on 07/01/2018 by the compliance vice president in consultation with TALIA BOSTON M.D.. Approved [...] at 11:51 AM on 07/01 by the compliance vice president in consultation with TALIA BOSTON M.D.. Approved [...] mg, Oral, EVERY 6 HOURS PRN, Starting Fri07/06/18 at 1135, Until Padma 07/09/18 at 1756, [...] 1756, Constipation UT, Hold for loose stools cefTRIAXone (ROCEPHIN) IVP [...] , , administer 7 units insulin, at , 03* administer 6 units. *only if ordered [...] TIMES DAILY WITH MEALS, First dose on Fri07/07/18 at 1800, Until Discontinued, Hold if NPO [...] recheck BG every 1 hr; when > bl=597 mg/dL, restart insulin infusion at 50% of most recent rate 2. If BG 50-74 mg/dL: a. HOLD INSULIN INFUSION and administer amp (12.5 g) D50 IV; recheck BG every 15 minutes until > or=90 mg/dL. b. Then, recheck BG every 1 hr; when > vn=192 mg/dL, restart insulin infusion at 50% of most recent rate. 3. If BG 75-99 mg/dL: a. HOLD INSULIN INFUSION. Recheck BG every 15 minutes until BG reaches or remains > or=90 mg/dL. b. Then, recheck BG every 1 hr; when > wj=850 mg/dL, restart insulin infusion at 75% of [...] 4PM is 120 mg/dL, the total change control specialist 2 hours is -30 mg/dL; however, the hourly change is -30 mg/dL 2 hours=-15 mg/dL/hr. BG 100-119 mg/dl BG 120-159 mg/dL BG 160-199 mg/dL BG > bi=354 INSTRUCTIONS++ BG increased by BG increased Increase [...] CDT 30 mEq, Oral, ONCE, 1 dose, [facility] 07/09/18 at 0730, Do NOT break or [...]
--- OUTSIDE RECORDS SUMMARY | 2018-08-08 20:35 | XMS REPORT | Encounter Summary ---
Author Author [facility] Organization [facility] Address Unknown Phone Unavailable Care Team Providers Care Filter Tip Catcher Name Role Phone Damien Caceres MD Unavailable Melo Adame MD Unavailable Unavailable Alvarez Ozuna NP PCP Hilary Davenport RN Unavailable Unavailable Encounter Details Date Type Department Care Team Description 07/08/2018 Procedure Pass Gastrointenstinal Endoscopy [address] [place] [address] Social History Tobacco Use Types Packs/Day Years [...]
--- OUTSIDE RECORDS SUMMARY | 2018-08-08 20:39 | XMS REPORT | Encounter Summary ---
Author Author [facility] Organization [facility] Address Unknown Phone Unavailable Care Team Providers Care Edge Beader Name Role Phone Damien Caceres MD Unavailable Melo Adame MD Unavailable Unavailable Alvarez Ozuna NP PCP Hilary Davenport RN Unavailable Unavailable Encounter Details Date Type Department Care Team Description 07/01/2018 Procedure Pass [id number] [place] [address] Social History Tobacco Use Types Packs/Day Years Used Date Former Smoker Cigars 2 20 Quit: 10/20/2011 Smokeless Tobacco: Never Used Alcohol Use Drinks/Week oz/Week Comments No Sex Assigned at Date Recorded Not on file as of this encounter Plan of Treatment Not on fileas of this encounter Visit Diagnoses Not on filein this encounter
--- OUTSIDE RECORDS SUMMARY | 2018-08-08 20:39 | XMS REPORT | Encounter Summary ---
Author Author [facility] Organization [facility] Address Unknown Phone Unavailable Care Team Providers Care Banquet Kitchen Supervisor Name Role Phone Damien Caceres MD Unavailable Melo Adame MD Unavailable Unavailable Lulu Ozuna NP PCP Hilary Davenport RN Unavailable Unavailable Reason for Visit * Auth/Cert Status Reason Specialty Diagnoses / Referred By Referred To Procedures Contact Contact Diagnoses Stroke (HCC) Stroke Encounter Details Date Type Department Care Team Description 07/08/2018 Surgery Gastrointenstinal Clara Carolina MD ESOPHAGOGASTRODUODENOSCOP Endoscopy [address] [place] [address] [place] [address] [phone] Social History Tobacco Use Types Packs/Day Years [...] s/p suprapubic catheter that was admitted at [facility] for urosepsis, DKA, A fib with RVR requiring cardizem ggt that was transferred for concerns for stroke. Admitted on 06/28 to [facility] with week history of cough, SOB. Found to have UTI with urosepsis and DKA with CO2 of 8, BG in 600s. Admitted to the ICU at [facility]. Started on CTX and Insulin ggt. While [...] language) 2=neither correct 2 1c. 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, bass mechanism maker and release non-paretic hand (other 1 step [...] tPA given unclear window. Was transferred to [facility] for evaluation. Was given ativan 2mg [...] stroke on 07/15. ECHO showed no thrombus. SHUTTLE HAND was following and pt graduated to regular [...] hospital course Consults: Cardiology, Endocrinology, GI and PT/OT/SHUTTLE HAND, rehab, urology Patient Disposition: Residential Facility Patient instructions/medications: AMB REFERRAL TO GASTROENTEROLOGY [...] home, please feel free to contact the Treatment Technician at [phone]. Your last blood pressure was BP: 171/73, [...] Report These Signs and Symptoms STROKE Call [phone] for the following symptoms: *Sudden numbness or weakness of the face, arm or leg, especially on one side of the body. *Sudden confusion, trouble speaking or understanding. *Sudden trouble seeing in one or both eyes. *Sudden trouble walking, dizziness, loss of balance or coordination. *Sudden, severe headache with no known cause. Return Appointment For Neurology scheduling contact [phone] For Neurosurgery appointments call [phone] Questions About Your Stay STANDARD For questions or concerns regarding your hospital stay: -DURING BUSINESS HOURS (8:00 AM - 4:30 PM): Call [phone] and ask to be transferred to your discharge attending physician. -AFTER BUSINESS HOURS (4:30 PM - 8:00 AM, on weekends, or holidays): Call [phone] and ask the recovery unit operator to page the on-call doctor for the discharge attending physician. Discharging attending physician: KEYSHAWN GOMEZ [[id number]] Complete if patient is going to a Residential Facility I certify that the patient requires skilled care Yes The patient's stay is expected to be less than 30 days Yes I will be in charge of patient in longterm No Cardiac Diet Limiting unhealthy fats and [...] home, you can call a dietitian at [phone]. Modified Liquids Your fluids should be thickened to a consistency of nectar. This is as thick as a milkshake or tomato juice. If you have questions about your diet after you go home, you can call a dietitian at [phone]. Current Discharge Medication List START taking these [...] CDT Return Patient with Lulu Perry MD [facility] ([facility]) [facility] [address] [id number] Additional appointment instructions: Please follow up with your PCP for repeat labs, monitoring your blood pressure, and monitoring your blood glucose Please follow up with the applications coordinator at [facility] for follow up visit. Please follow [...] blood glucose Please follow up with the applications coordinator at [facility] for follow up visit. Please follow [...] - 07/09/2018 2:57 PM CDT Phoned [facility] [phone] and gave report to Perla GOODMAN to receive patient. Informed her that patient to transport at 13:00. By 15:00 no transport arrived, phoned facility above and it was reported that ride was on the way. FSBS=69 checked prior to transport. Reported to pediatric nurse practitioner for Neurology, juice x 2 given FSBS rechecked=87. Patient left unit via wheelchair and catering driver who was given chart for transport. [...] Range Color,UA STRAW Turbidity,UA CLEAR CLEAR-CLEAR Specific [place]-Urine 1.005 1.003 - 1.035 pH,UA 8.0 5.0 [...] DKA resolved -A1c 17.4 on 07/01/2018 uncontrolled -BOOKING OFFICER regimen: levemir 40 units QHS, Novolog 20-25 [...] will follow up with local endocrinology in [facility] Subjective Valdez Anthony is a 57 [...] Range Color,UA STRAW Turbidity,UA CLEAR CLEAR-CLEAR Specific [place]-Urine 1.005 1.003 - 1.035 pH,UA 8.0 5.0 [...] CDT CLINICAL NUTRITION Clinical Nutrition Follow-Up Summary NAME:Valdze Anthony :1960 AGE: 57 y.o. ADMISSION DATE: 07/01/2018 DAYS ADMITTED: LOS: 8 days Nutrition Assessment of Patient: Malnutrition Assessment: Does not meet criteria Current Oral Intake: Improving, Marginally Adequate Estimated Calorie Needs: 7015-2314 (25-28 kcal/kg desired wt) Estimated Protein Needs: 85-100 (1.2-1.4 g/kg desired wt) Oral Diet Order: Diabetic 3659-8720 Kcal/day (60 g Carb/meal, 30 g Carb/HS snack ), Carnation Thick Liquids Comments: 57 y.o. male with new onset Atrial Fibrillation with RVR, HTN, HLD, T2DM, Diabetic Retinopathy, OD Blindness, Neovascular Glaucoma, Prostate Cancer s/p prostatectomy, Urinary Retention s/p suprapubic catheter that was admitted at [facility] for urosepsis, DKA, A fib [...] and underwent via video- swallow eval with SHUTTLE HAND findings of moderate oropharyngeal dysphagia and baseline cognitive deficits. SHUTTLE HAND working with pt and diet has advanced from nectar thick full liquids to 60g/meal consistent carb diet with nectar thick fluids. Per had 100% omelet for breakfast today (refused per RN) and sandwich ordered by for lunch. No current wt to assess; unable to actually see pt today as he was bundled in his blankets. Pt has orders for no sugar added Laurel breakfast with nectar thick milk at breakfast and per RN throughout day as needed. Followed up with call center who says orders not printing to meal ticket. denies need for diet education Recommendation: Encourage good meal intakes at least 3 times per day with adequate protein source each meal on 60g/meal consistne carb diet. Offer no sugar added Laurel Breakfast shakes made with nectar thick milk at breakfast and PRN. Intervention / Plan: Monitor po intake tolerance and adequacy monitor wt trends, labs, meds and GI status Nutrition Diagnosis: Altered GI function Etiology: swallowing and cognitive deficits Signs & Symptoms: SHUTTLE HAND findings and nectar thick liquids with diabetic [...] prostate cancer s/p prostatectomy who presents to [facility] as a transfer from [facility] for stroke. OSH course: Pt presented [...] tPA given unclear window. Was transferred to [facility] for evaluation. Was given ativan 2mg [...] EF, LA size 3.5cm, no thrombus - SHUTTLE HAND following -> recommend regular diet w/ nectar [...] TIDAC >pt to f/u w/ endo @ [facility] outpt basis -> goal BS 100-140 [...] -> develop stroke and was transferred to [facility] - Was placed on PO cardizem [...] Dispo: discharge today to [facility] @ 1300 Patient was seen and discussed [...] Range Color,UA STRAW Turbidity,UA CLEAR CLEAR-CLEAR Specific [place]-Urine 1.005 1.003 - 1.035 pH,UA 8.0 5.0 [...] (Last 24 hours): FSBS (Manual): 96 (07/08/18 7879) Glucose: (!) 118 (07/09/18 0547) POC Glucose [...] prostate cancer s/p prostatectomy who presents to [facility] as a transfer from [facility] for stroke. OSH course: Pt presented to [...] tPA given unclear window. Was transferred to [facility] for evaluation. Was given ativan 2mg [...] EF, LA size 3.5cm, no thrombus - SHUTTLE HAND following -> recommend regular diet w/ nectar [...] TIDAC >pt to f/u w/ endo @ [facility] outpt basis -> goal BS 100-140 [...] -> develop stroke and was transferred to [facility] - Was placed on PO cardizem [...] fluids, replace lytes PRN, ada diet Ppx: [id number] Heparin Sq Q8, SCDs Code: Full Dispo: [...] (07/08/18 0553) POC Glucose (Download): 75 (07/08/18 8957) Radiology and Other Diagnostics Review: Pertinent radiology [...] pathology results. Roberto Dutta GI fellow Pager [phone] 07/08/2018 3:39 PM * Eloy Higgins RN [...] or concerns after your procedure please call [phone] M-F 8am-5:00 pm. After 5:00 pm, holidays or weekends call [phone] and ask for the GI Doctor pediatric nurse practitioner. * Barbi Deluna MD - 07/08/2018 12:10 [...] DKA resolved -A1c 17.4 on 07/01/2018 uncontrolled -BOOKING OFFICER regimen: levemir 40 units QHS, Novolog 20-25 [...] will follow up with local endocrinology in [facility] Subjective Valdez Anthony is a 57 [...] s/p suprapubic catheter that was admitted at [facility] for urosepsis, DKA, A fib [...] PROGRESS NOTE Patient Name: Valdez Anthony Room/Bed: DD5686/01 Admitting Diagnosis: Stroke Past Medical History: Diagnosis [...] occasionally in community. Prior Function Level Of [place]: Independent with ADLs and functional transfers Lives [...] Bed mobility, Ambulation, Stairs Therapist: ERIC Whalen/Cesia [id number] Date: 07/08/2018 * Whit Guadarrama MS,CCC-SHUTTLE HAND - 07/08/2018 9:38 AM CDT SPEECH-LANGUAGE PATHOLOGY NO TREATMENT NOTE Chart reviewed and discussed in interdisciplinary rounds. Pt NPO for colonoscopy this date. SHUTTLE HAND will continue to follow. Therapist: Whit Guadarrama MS,CCC-SHUTTLE HAND [id number] Date: 07/08/2018 * Barbi Deluna MD - [...] DKA resolved -A1c 17.4 on 07/01/2018 uncontrolled -BOOKING OFFICER regimen: levemir 40 units QHS, Novolog 20-25 [...] will follow up with local endocrinology in [facility] Subjective Valdez Anthony is a 57 [...] prostate cancer s/p prostatectomy who presents to [facility] as a transfer from [facility] for stroke. OSH course: Pt presented to [...] tPA given unclear window. Was transferred to [facility] for evaluation. Was given ativan 2mg [...] EF, LA size 3.5cm, no thrombus - SHUTTLE HAND following -> recommend regular diet w/ nectar [...] > pt to f/u w/ endo @ [facility] outpt basis -> goal BS 100-140 [...] -> develop stroke and was transferred to [facility] - Was placed on PO cardizem [...] clear liquid/ada diet for procedure tomorrow Ppx: [id number] Heparin Sq Q8, SCDs Code: Full Dispo: [...] provide intervention as indicated. Irma Blakely, OTR/L [id number] * Whit Guadarrama MS,CCC-SHUTTLE HAND - 07/07/2018 9:50 AM CDT SPEECH-LANGUAGE PATHOLOGY NO TREATMENT NOTE Chart reviewed and discussed in interdisciplinary rounds. Pt NPO for colonoscopy this date. SHUTTLE HAND will continue to follow. Therapist: Whit Guadarrama MS,CCC-SHUTTLE HAND [id number] Date: 07/07/2018 * Shira Welch RN - [...] DKA resolved -A1c 17.4 on 07/01/2018 uncontrolled -BOOKING OFFICER regimen: levemir 40 units QHS, Novolog 20-25 [...] will follow up with local endocrinology in [facility] Subjective Valdez Anthony is a 57 [...] Color,UA YELLOW Turbidity,UA 2+ (A) CLEAR-CLEAR Specific [place]-Urine 1.017 1.003 - 1.035 pH,UA 5.0 5.0 [...] prostate cancer s/p prostatectomy who presents to [facility] as a transfer from [facility] for stroke. OSH course: Pt presented to [...] tPA given unclear window. Was transferred to [facility] for evaluation. Was given ativan 2mg [...] EF, LA size 3.5cm, no thrombus - SHUTTLE HAND following -> recommend regular diet w/ nectar [...] > pt to f/u w/ endo @ [facility] outpt basis -> goal BS 100-140 [...] fluids, replace lytes PRN, ADA diet Ppx: [id number] Heparin Sq Q8, SCDs Code: Full Dispo: [...] asked these questions and provided answers by SHUTTLE HAND) Speech: slurred speech w/ comprehension intact to [...] Color,UA YELLOW Turbidity,UA 2+ (A) CLEAR-CLEAR Specific [place]-Urine 1.017 1.003 - 1.035 pH,UA 5.0 5.0 [...] 0427) POC Glucose (Download): (!) 196 (07/06/18 5386) Radiology and Other Diagnostics Review: Pertinent radiology [...] due to out of window), transferred to [facility] and found to have R M1 [...] established Keyshawn Gomez MD * Whit Guadarrama MS,CCC-SHUTTLE HAND - 07/06/2018 12:14 PM CDT Formatting of [...] address dysphagia and cognitive communication concerns. Ongoing SHUTTLE HAND at next level of care. Consistent supervision [...] city, stating we are located at [facility]. Verbal Problem Solving Comments: Functional problem [...] baseline to call for assistance if needed. Gates Cognitive Assessment (MoCA), Version 7.1 Subtest / [...] s/p suprapubic catheter that was admitted at [facility] for urosepsis, DKA, A fib [...] the posterior medial left temporal lobe. 3. 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 Therapist: Whit Guadarrama MS,[facility]-SHUTTLE HAND [id number] Date: 07/06/2018 * Aria Mccoy, PT - [...] s/p suprapubic catheter that was admitted at [facility] for urosepsis, DKA, A fib [...] spoon/cup and pureed /mech soft solids w/ SHUTTLE HAND only w/ less than 5% s/s of [...] speech therapy post acute hospitalization. Therapist: Cesia Hatfield/CCC-SHUTTLE HAND (Pager [phone]; Voalte: [phone]) Date: 07/05/2018 * Darcy Goodrich MD - [...] s/p suprapubic catheter that was admitted at [facility] for urosepsis, DKA, A fib [...] EF, LA size 3.5cm, no thrombus - SHUTTLE HAND to eval and treat - Video swallow [...] - Rocephin 07/01 - 07/05 FEN: - Carnation thick PO fluids - Daily BMP - [...] Darcy Goodrich MD Neurology PGY-4 Pager Neurology pediatric nurse practitioner pager [phone] Associated attestation - Diego Gutierrez MD - [...] DKA resolved -A1c 17.4 on 07/01/2018 uncontrolled -BOOKING OFFICER regimen: levemir 40 units QHS, Novolog 20-25 [...] will follow up with local endocrinology in [facility] This is an individual we are [...] s/p suprapubic catheter that was admitted at [facility] for urosepsis, DKA, A fib [...] EF, LA size 3.5cm, no thrombus - SHUTTLE HAND to eval and treat - Video swallow [...] - Rocephin 07/01 - 07/05 FEN: - Carnation thick PO fluids - Daily BMP - [...] 20,000 Units/ sodium bicarbonate 650 mg(#) PRN (Maintenance Worker House Trailer from Rx) Vital Signs: Last Filed in [...] the posterior medial left temporal lobe. 3. 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 Munira Ortega DO Pager [phone] Associated attestation - Diego Gutierrez MD - [...] while, received endoscopy and colonoscopy at the [facility] without a clear etiology of his anemia, also [facility] again without a clear upper GI [...] DKA resolved -A1c 17.4 on 07/01/2018 uncontrolled -BOOKING OFFICER regimen: levemir 40 units QHS, Novolog 20-25 [...] will follow up with local endocrinology in [facility] Anemia This patient is having ongoing [...] mL IV drip (std conc) Stopped (07/04/18 7569) PRN and Respiratory Meds:acetaminophen Q6H PRN, bisacodyl QDAY PRN, hydrALAZINE Q6H PRN, labetalol (NORMODYNE; TRANDATE) injection Q6H PRN, pancrelipase 20,000 Units/ sodium bicarbonate 650 mg(#) PRN (Maintenance Worker House Trailer from Rx) Objective Vital Signs: Last Filed [...] Screen NEG Electronic Crossmatch YES Unit Number [id number] Blood Component Type RBC,CPDA,LEUKO REDUCED Unit Division [...] suprapubic catheter that was admitted at [facility] for urosepsis, DKA, A fib with [...] EF, LA size 3.5cm, no thrombus - SHUTTLE HAND to eval and treat - Video swallow [...] - UA negative for UTI FEN: - Carnation thick PO fluids - Daily BMP - [...] 20,000 Units/ sodium bicarbonate 650 mg(#) PRN (Maintenance Worker House Trailer from Rx) Vital Signs: Last Filed in [...] the posterior medial left temporal lobe. 3. Restorationism of flow void within the right M1 [...] s/p suprapubic catheter that was admitted at [facility] for urosepsis, DKA, A fib [...] body lift to chair for weekend, with senior staff specialized employment. Dicussed mobility recommendation with bedside RN. RECOMMENDATIONS: PT Discharge Recommendations PT Discharge Recommendations: Inpatient Setting Therapist: Dolores Sampson, PT Date: 07/03/2018 * Mary Grace Stanton OT - 07/03/2018 1:33 PM CDT Formatting of this note may be different from the original. OCCUPATIONAL THERAPY PROGRESS NOTE Patient Name: Valdez Anthony Room/Bed: [place] [address] Admitting Diagnosis: Stroke Past Medical History: Diagnosis [...] non verbal with left hemiplegia. Transferred to [facility]. R MCA stroke s/p thrombectomy, [...] occasionally in community. Prior Function Level Of [place]: Independent with ADLs and functional transfers Lives [...] s/p suprapubic catheter that was admitted at [facility] for urosepsis, DKA, A fib [...] Fed Thin Liquid: 1 oz, Cup, Straw Carnation Thick Liquid: Cup, Straw Honey Thick Liquid: [...] spoon/cup and pureed /mech soft solids w/ SHUTTLE HAND only w/ less than 5% s/s of aspiration. Goal : Pt will participate in cognitive-communication assessment given mod cues. Therapist: BIANCA Lamb L/CCC-SHUTTLE HAND Voalte: [id number] Date: 07/03/2018 * Alex Medel, RN - [...] PM CDT Patient arrived to room # (1537) via bed accompanied by RN. Patient transferred [...] ASSESSMENT NOTE Patient Name: Valdez Anthony Room/Bed: HP0427/01 Admitting Diagnosis: Stroke Past Medical History: Diagnosis [...] non verbal with left hemiplegia. Transferred to [facility]. R MCA stroke s/p thrombectomy, [...] occasionally in community. Prior Function Level Of [place]: Independent with ADLs and functional transfers Lives [...] s/p suprapubic catheter that was admitted at [facility] for urosepsis, DKA, A fib [...] s/p suprapubic catheter that was admitted at [facility] for urosepsis, DKA , A fib [...] from the ICU. Updated plan: - NPO, SHUTTLE HAND to monitor swallow - Protein shake supplements [...] is restart AC in 10 days, needs SHUTTLE HAND re-eval for get cleared otherwise PEG, Glu [...] ulceration, stop protonix Stable for transfer to [facility]. I spent 45 minutes (excluding time [...] reports that pt completed videoswallow evaluation at [facility], which she states yielded recommendations for [...] Continue Treatment 3-5x/week. Prognosis: Fair NOMS Dysphagia Ratin7-Tgcvywwmma-Hjhxek Dysphagia -Not able to swallow safely by mouth for nutrition/hydration but may take some consistency w/ consistent max cues in therapy only. Alternative method of feeding required. Results Reported to Physician: Yes Objective* Relevant Med Background: 57 y.o. male with A-Fib (on Coumadin BOOKING OFFICER), IDDM, Prostate CA, OD blindness, HLD and [...] the posterior medial left temporal lobe. 3. Restorationism of flow void within the right M1 [...] videoswallow evaluation given mild-mod cues. Therapist:BIANCA Lamb L/CCC-SHUTTLE HAND Voalte: [id number] Date:07/02/2018 * Ciarra Valentino DO - 07/02/2018 [...] s/p suprapubic catheter that was admitted at [facility] for urosepsis, DKA , A fib [...] transformation unlikely. 2. No new loss of alra -white differentiation. 3. Unchanged supratentorial white matter [...] involving the medial L temporal lobe. 3. Restorationism of flow void in the R M1. - Stroke Risk Factor Modification -LDL 44. Goal <70. Continue river boat captain atorvastatin 40mg -A1c 17.4. Goal <7.0 -Continue ASA. Will discuss timing of AC given Afib. -Goal BP <140 - PT/OT, Speech Consult - Consult to Rehab - Neuro-ICU monitoring, neurochecks q 1 hrs Encephalopathy -s/p Flumazenil 0.5mg x 2 -07/01 ABG 7.34/39/102/20.6 -07/01 EEG: Diffuse slowing indicative of encephalopathy. No seizures or epileptiform activity. -No sedation needs -Holding river boat captain Bupropion, Duloxetine Sedation/Pain Management: -s/p ativan 2mg and fentanyl 25mcg -s/p flumazenil 0.5 mg x 3 -No sedation needs at this time Cardiac: Afib with RVR -[id number]: 4: 4.8% Risk for stroke and 6.7% [...] - Hydralazine prn SBP >140 - Continue river boat captain Lisinopril 20mg HLD - LDL 44. Goal LDL <70. Continue river boat captain atorvastatin 20mg Respiratory: Hypoxia likely [...] - Blood glucose goal 100-180mg/dl - Holding river boat captain Levemir 16 units and Novolog [...] (Last 24 hours) Glucose: (!) 127 (07/02/18 4945) POC Glucose (Download): (!) 142 (07/02/18 0622) Lab Review: 24-hour labs: Results for orders [...] Range Color,UA STRAW Turbidity,UA CLEAR CLEAR-CLEAR Specific [place]-Urine 1.018 1.003 - 1.035 pH,UA 5.0 5.0 [...] O2 Sat-Arterial 97.5 95 - 99 % [id number]-ZGR-Djw 20.6 (L) 21 - 28 MMOL/L POC [...] procedures reviewed. Ciarra Chelsy, DO Date: 07/02/[phone] Associated attestation - Veronica Doyle MD - [...] outpatient follow up Jerry Baker MD Urology pediatric nurse practitioner Please page pediatric nurse practitioner with concerns * Jaycob Ramos, - 07/01/2018 [...] Doyle MD Date: 07/01/2018 * Whit Guadarrama MS,CCC-SHUTTLE HAND - 07/01/2018 1:36 PM CDT SPEECH-LANGUAGE PATHOLOGY NO TREATMENT NOTE Order received and appreciated for clinical swallow evaluation. Chart reviewed and made contact with RN. Pt currently with another provider and with decreased level of arousal/responsiveness following ativan administration in the helicopter. SHUTTLE HAND will hold at this time per discussion with RN. SHUTTLE HAND will follow up and will complete evaluation when pt medically appropriate. Addendum 15:20: pt remains somnolent and unable to sustain adequate level of arousal to participate in clinical swallow evaluation per discussion with RN. SHUTTLE HAND will return to complete evaluation when appropriate. Chart review: Mr. Anthony presented to [facility] on 06/29 with uro-sepsis and DKA. Supra-pubic [...] suggesting smaller completed infarct. Therapist: Whit Guadarrama MS,CCC-SHUTTLE HAND [id number] Date: 07/01/2018 * Mari Mullen RN - [...] Pre Procedure History and Physical/Sedation Plan Name:Valdez Antohny :1960 Age: 57 y.o. Date of Service: [...] s/p suprapubic catheter that was admitted at [facility] for urosepsis, DKA, A fib [...] Factor Modification -Lipid Panel and A1c. Continue river boat captain atorvastatin 40mg -TTE -Start ASA. -Goal BP <140 - PT/OT, Speech Consult - Consult to Rehab - Neuro-ICU monitoring, neurochecks q 1 hrs Encephalopathy likely 2/2 to Ativan, Fentanyl -s/p Flumazenil 0.5mg x 2 -ABG -CT Head w/out contrast -No sedation needs -Holding river boat captain Bupropion, Duloxetine Sedation/Pain Management: -s/p ativan 2mg and fentanyl 25mcg -s/p flumazenil 0.5 mg x 2 -No sedation needs at this time Cardiac: Afib with RVR -[id number]: 4: 4.8% Risk for stroke and 6.7% [...] due to bradycardia at OSH - Holding river boat captain Lisinopril 20mg and Metoprolol 25mg BID HLD - Lipid Panel. Goal LDL <70. Continue river boat captain atorvastatin 20mg Respiratory: DHRUV -RA [...] - Blood glucose goal 100-180mg/dl - Holding river boat captain levemir, novolog FEN: - IVF: [...] p suprapubic catheter that was admitted at [facility] for urosepsis, DKA, A fib with RVR requiring cardizem ggt that was transferred for concerns for stroke. Admitted on 06/28 to [facility] with week history of cough, SOB. Found to have UTI with urosepsis and DKA with CO2 of 8, BG in 600s. Admitted to the ICU at [facility]. Started on CTX and Insulin ggt. While [...] language) 2=neither correct 2 1c. 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, bass mechanism maker and release non-paretic hand (other 1 step [...] more than one modality 2 Score 32 [place] coma score: E: 2 - Opens eyes [...] hours): POC Glucose (Download): (!) 169 (07/01/18 130) Lab Review: 24-hour labs: Results for orders [...] diagnostic procedures reviewed. Ciarra Valentino, Date: 07/01/[phone] * Edvin Juarez, SHANE-CAMP GUARD - 07/01/2018 12:03 PM CDT Formatting of [...] Labs: Pertinent labs reviewed GILLIAN Nelson Pager [phone] in this encounter Procedure Notes * Amy Velasquez MD - 07/01/2018 8:07 PM CDT Procedure(s): EEG AWAKE & ASLEEP EEG REPORT Valdez Anthony 1960 [id number] DATE OF STUDY 07/01/18 PATIENT HISTORY: This [...] mL IVPB (MB+), 1 g, Intravenous, PRN (Maintenance Worker House Trailer from Rx) AND Ionized Calcium, , , [...] drip (std conc), 1-32 Units/hr, Intravenous, TITRATE, iCarra Valentino DO, Last Rate: 2 mL/hr at [...] 250 mL IVPB, 8 mmol, Intravenous, PRN (Maintenance Worker House Trailer from Rx) AND Phosphorus, , , PRN [...] here. EGD showed s/p polypectomy. Transferred to [facility] for stroke. Hgb dropped from 10.1 [...] She also does mention that at the [facility] the patient did have an upper [...] Resolved Ambulatory Problems Diagnosis Date Noted Sepsis ([facility]) 01/15/2016 Severe sepsis ([facility]) 01/15/2016 LATISHA (acute kidney injury) ([facility]) 01/15/2016 High anion gap metabolic acidosis 01/15/2016 Past Medical History: Diagnosis Date Arthritis DM (diabetes mellitus) ([facility]) DM eyes Glaucoma Hypertension Social History Social [...] Date Noted Anemia 07/03/2018 Agitation 07/03/2018 Stroke ([facility]) 07/01/2018 HTN (hypertension) 01/15/2016 Urinary retention with incomplete bladder emptying 01/15/2016 Diabetes ([facility]) 01/15/2016 Proliferative diabetic retinopathy(362.02) 01/14/2013 Neovascular glaucoma [...] Color,UA YELLOW Turbidity,UA 2+ (A) CLEAR-CLEAR Specific [place]in-Urine 1.017 1.003 - 1.035 pH,UA 5.0 5.0 [...] radiology reviewed. Gerard Salazar MD * Brenda Lairos MD - 07/03/2018 2:10 PM CDT Associated [...] DKA resolved -A1c 17.4 on 07/01/2018 uncontrolled -BOOKING OFFICER regimen: levemir 40 units QHS, Novolog 20-25 [...] will follow up with local endocrinology in [facility] Patient was seen and discussed with [...] with diabetes in 1994. He follows with applications coordinator at [facility]. At home, he was taking Levemir 40 units once a day, NovoLog 20-25 units with meal, metformin 1000 mg twice a day. His states that applications coordinator prescribe NovoLog 40 units 3 times a [...] reviewed. Brenda Larios Endocrine Fellow Pager # [phone] 07/03/2018 Associated attestation - John Chaudhry MD [...] thick full liquids today) Estimated Calorie Needs: 5281-2823 (25-28 kcal/kg desired wt) Estimated Protein Needs: 85-100 (1.2-1.4 g/kg desired wt) Oral Diet Order: Full Liquid, Carnation Thick Liquids Current EN Order: Isosource 1.5 [...] s/p suprapubic catheter that was admitted at [facility] for urosepsis, DKA, A fib [...] 07/02. Pt pulled Corpak today despite mits. SHUTTLE HAND evaluated pt via video-swallow with moderate oropharyngeal dysphagia and baseline cognitive deficits. SHUTTLE HAND recommending nectar thick full liquids; diet ordered. [...] meal. Offer No Sugar Added "Light Start Laurel Breakfast Essentials" shakes made with nectar thick [...] Intervention / Plan: assessed nutritional status; ordered Laurel Breakfast shakes with nectar thick milk PRN monitor po intake, adequacy, tolerance and advancement per SHUTTLE HAND findings and recs monitor wt trends, labs, meds and GI status Nutrition Diagnosis: Altered GI function Etiology: swallowing and cognitive deficits Signs & Symptoms: SHUTTLE HAND findings and recs for nectar thick full liquids with supervision Goals: Patient to consume >75% of meals/supplements Time Frame: Within 72 Hours Tata Daniels, MS,RD, LD, [facility] *[id number] * Damian Hensley MD - [...] resection, who was admitted upon transfer from [facility] on 07/01/2018 after originally presenting there with sepsis determined to be secondary to UTI complicated by DKA and Atrial Fibrillation and then apparent AMS. The patient was transferred to [facility] where CTA showed right M1 [...] complexity and goals with PT, OT, and SHUTTLE HAND for acute inpatient rehabilitation; however, he is [...] discharge. Please have primary SWCM discuss with [facility] institutional research coordinator according to the patient 's (and/or [...] a 57 y.o. male admitted to [facility] on 07/01/2018 with the following issues: [...] hours while supine in bed, pressure relief [id number] in seated position, PRAFOs for pressure relief and to prevent contractures Jaycob Ramos, DO Rehab Consult Pager: [phone] History of Present Illness Hospital Course: Valdez Anthony is a 57 y.o. male with new onset Atrial Fibrillation with RVR, HTN , HLD, T2DM, Diabetic Retinopathy, OD Blindness, Neovascular Glaucoma, Prostate Cancer s/p prostatectomy, Urinary Retention s/p suprapubic catheter that was admitted at [facility] for urosepsis, DKA, A fib [...] urosepsis. Rehab consulted for post acute rehab/placement. BOOKING OFFICER pt was independent and lived at home [...] Units/ sodium bicarbonate 650 mg(#) PRN ( Maintenance Worker House Trailer from Rx) Allergies: No Known Allergies Prior Level of Function Prior Function Level Of [place]: Independent with ADLs and functional transfers Lives [...] L spontaneously. Mitt and soft wrist restraints, [place] strap replaced end of session and bed [...] reports that pt completed videoswallow evaluation at [facility], which she states yielded recommendations for [...] Skylar Heart - 07/09/2018 11:04 AM CDT [employer] Note: This curriculum writer printed and placed transfer packet in pt's chart drawer, per request from [facility] Sophia Vaughn. Skylar Heart Independent Insurance Adjuster For additional assistance, please contact [facility] Sophia Vaughn *[phone] * Anesthesia Post Op Day 1 - [...] days Todays Date: 07/09/2018 Plan D/c to [facility] today at 1:00pm via facility w/c [...] or Referral ? Discharge Planning Discharge Planning: Residential Facility WILLEM sent updated clinicals to [facility] at [phone]. Update 10:00am: WILLEM spoke with Perla ([phone]) at [facility] to update. Perla educated that they will be available for transportation today at 1:00pm. WILLEM spoke with Neuro Team to update. WILLEM spoke with bedside RN to update. WILLEM tasked [employer] to deliver transfer packet. RN Report: [phone] WILLEM faxed d/c orders to [facility] at [phone]. ? Medication Needs ? Financial ? Legal [...] for the patient. Sophia Vaughn LMSW Phone: [phone] Pager: [phone] * Case Mgmt DC Plan - Sophia Vaughn - 07/08/2018 9:10 AM CDT Formatting of this note may be different from the original. Case Management Progress Note NAME:Valdez Anthony :1959 AGE: 57 y.o. ADMISSION DATE: 07/01/2018 DAYS ADMITTED: LOS: 7 days Todays Date: 07/08/2018 Plan Anticipate d/c to [facility] tomorrow pending pt stability. Interventions SW [...] or Referral ? Discharge Planning Discharge Planning: Residential Facility WILLEM received and returned message for Angela ([phone]) at [facility] to discuss referral. Update 10:00am: WILLEM spoke with Blanquita ([phone]) at [facility] to update of anticipated d/c timeline. Blanquita educated that they are still reviewing for potential admission and will be contacting pt's to further discuss an admission. However, they will notify WILLEM once decision reached. Update 10:44am: WILLEM spoke with Perla at [facility] to update. Perla educated that they are able to accept for admission and will have their w/c van available for such. ? Medication Needs ? Financial [employer] following for assistance with [employer] Medicaid ariel. ? Legal ? Other Other/None: [...] for the patient. Sophia Vaughn LMSW Phone: [phone] Pager: *[phone] * Care Plan - Shira Welch RN [...] Todays Date: 07/07/2018 Plan Anticipate d/c to [facility] tomorrow pending pt stability and facility acceptance. Interventions WILLEM reviewed EMR and met with Neuro team for huddle. GI consulted. Anticipated EGD today. ? Support Support: Pt/Family Updates re:POC or DC Plan, Counseling for Adaptation to Illness, Counseling for Psychosocial issues ? Info or Referral ? Discharge Planning Discharge Planning: Residential Facility WILLEM left message for Admissions ([phone]) at [facility] to discuss referral. Update 11:40am: WILLEM spoke with Hyacinth ([phone]) at [facility] and they are unable to locate referral. WILLEM agreeable to re-send referral to [phone], which WILLEM completed. Hyacinth educated that she will review and follow up. Hyacinth will also speak with her supervisor particleboard to discuss their ability to assist with transportation. Update 1:20pm: WILLEM received message from Hyacinth and they are still unable to locate referral. WILLEM manually faxed referral to [phone], as requested. Update 2:00pm: SW received message from Hyacinth that they only got a portion of the referral. WILLEM re-faxed referral to [phone]. Update 4:00pm: WILLEM received and returned message for Angela ([phone]) at [facility]. ? Medication Needs ? Financial ? [...] for the patient. Sophia Vaughn LMSW Phone: [phone] Pager: *[phone] * Care Plan - Shira Welch RN [...] Liana Ortiz - 07/06/2018 10:50 AM CDT [employer] Note: Received request from [facility] Sophia Vaughn to fax referrals to the following placements. [facility] was also asked to check wheelchair van costs to the facility. [facility] - $350-375 [facility] - $500-525 [facility] - $400-425 [facility] w/c van - $430 All subject to time, billed alliance party, needs, etc. Updated [facility] Liana Ortiz Independent Insurance Adjuster For additional assistance please contact [facility] Sophia Roderick *[phone] * Case Mgmt DC Plan - Martina Vaughnleen - 07/06/2018 10:36 AM CDT Formatting of this note may be different from the original. Case Management Progress Note NAME:Valdez Anthony :1959 AGE: 57 y.o. ADMISSION DATE: 07/01/2018 DAYS ADMITTED: LOS: 5 days Todays Date: 07/06/2018 Plan Anticipate d/c to [facility] tomorrow vs Friday pending pt stability and facility acceptance. Interventions SW reviewed EMR and met with Neuro team for huddle. Anticipate GI consult. Continue to monitor hgb. ? Support Support: Pt/Family Updates re:POC or DC Plan, Counseling for Adaptation to Illness, Counseling for Psychosocial issues SW visited pt and Leticia at bedside to discuss DCP. Leticia requested referral to [facility]. SW agreeable and reviewed referral process. SW also reviewed potential private pay cost of w/c van should SNF be unable to assist. Leticia uncertain regarding their ability to private pay, however unwilling to remain in [facility] for SNF stay. SW agreeable to obtaining quote for ongoing assistance. ? Info or Referral ? Discharge Planning Discharge Planning: Residential Facility SW tasked [employer] to send referral to [facility]. SW tasked [facility] to check rosenberg of w/c van. ? [...] for the patient. Sophia Vaughn LMSW Phone: [phone] Pager: [phone] * Case Mgmt DC Plan - Martina [...] or Referral ? Discharge Planning Discharge Planning: Residential Facility ? Medication Needs ? Financial ? [...] for the patient. Sophia Vaughn LMSW Phone: [phone] Pager: [phone] * Transfer - Ciarra Valentino, DO - [...] suprapubic catheter that was admitted at [facility] for urosepsis, DKA , A fib [...] Started on ASA. LDL 40, continued on river boat captain atrovastatin. PT/OT and Speech consulted. CV: Initially started on Nicardipine ggt for goal SBP <140. Restarted on river boat captain lisinopril. Intermittent Afib on telemetry. [...] OSH. DKA resolved. Insulin ggt continued. Holding river boat captain Levemir and Novolog. Consider Endocrine [...] Discharge Plan: Undetermined Ciarra Valentino DO Pager [phone] * Case Mgmt DC Plan - Sophia Vaughn - 07/01/2018 3:09 PM CDT Case Management Admission Assessment NAME:Valdez Anthony :1959 AGE: 57 y.o. ADMISSION DATE: 07/01/2018 DAYS ADMITTED: LOS: 0 days Todays Date: 07/01/2018 Source of Information: SW visited pt's Leticia and pt's OCTAVIANO Moseley at bedside. Plan Plan: CM Assessment, Assist PRN with SW/NCM Services Patient Address/Phone [address] [facility] [phone] (home) Emergency Contact Extended Emergency Contact Information Primary Emergency Contact: Suzie English (ANTONINO) Relation: Relative Secondary Emergency Contact: Leticia Anthony (Judy) [facility] Mobile Relation: Spouse Healthcare Directive None [...] (Medicare Part A and B) Secondary Insurance: VA/[facility] ([facility]) Additional Coverage: VA (fills at [facility]. ) ? Source of Income Source Of Income: SSDI ? Financial Assistance Needed? None Psychosocial Needs ? Mental Health Mental Health History: No ? Substance Use History Substance Use History Screen: No ? Other None Current/Previous Services ? PCP Chris Seay APRN at [facility] ([phone] ext [phone]) ? Pharmacy [facility] [address] [address] ? Durable Medical Equipment Durable Medical Equipment [...] ? Outpatient Therapy PT: No OT: No SHUTTLE HAND: No ? Residential Facility/Detention SNF: No NH: No Pt's OCTAVIANO Moseley works at [employer], therefore family understanding of LTC and SNF level of cares. ? Inpatient Rehab IPR: No ? Long-Term Acute Care Hospital LTACH: No ? Acute Hospital Stay Acute Hospital Stay: In the past Was patient's stay within the last 30 days?: No Sophia Vaughn LMSW Phone: [phone] Pager: [phone] * Acute Stroke Response - Alonzo Watt [...] 57 y.o. male with A-Fib (on Coumadin BOOKING OFFICER), IDDM, Prostate CA, OD blindness, HLD and [...] due to positive occult) - 300mg ASA HI daily - Echocardiogram - MRI head w/o contrast in AM of 07/02 - Monitor telemetry for arrhythmia - NPO - SHUTTLE HAND to eval speech when more alert - PT/OT to eval and treat - Rehab Medicine Consult The patient was seen and discussed with Dr. Gutierrez History of Present Ilness History of Present Illness: Mr. Anthony presented to [facility] on 06/29 with uro-sepsis and DKA. Supra- [...] and then to IR for EVT. At [facility] he had dropping Hgb and positive heme [...] language) 2=neither correct 2 1c. 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, bass mechanism maker and release non-paretic hand (other 1 step [...] Medications: [DEC Hold] calcium gluconate IV PRN (Maintenance Worker House Trailer from Rx) AND Ionized Calcium PRN AND Notify Physician Ongoing, [DEC Hold] magnesium sulfate PRN AND Magnesium PRN AND Notify Physician Ongoing, [DEC Hold] potassium chloride SR PRN OR [DEC Hold] potassium chloride PRN, [DEC Hold] sodium phosphate IVPB PRN (Maintenance Worker House Trailer from Rx) AND Phosphorus PRN AND Notify [...] nucleus suggesting smaller completed infarct. Alonzo Watt APRN-CAMP GUARD Vascular Neurology [phone] Associated attestation - Diego [...] Date: 07/01/2018 Attending Physician: Lulu Perry MD Grocery Carrier(s): Miri Nair Stroke Treatment Time out performed: [...] Sedated from ativan Lulu Perry MD Pager: [phone] * Acute Stroke Response - Hannah Ceballos [...] Received: 1102 (ETA 10 minutes) EMS Agency: [facility] Outside Hospital: [facility] Clinical Presentation: Decreased LOC, Dysarthria, [...] Summary: Report received from MAXINE Pardo at [facility] in [place], [place]. Per report patient last known well today at 0730. At 0825 she noted patient to be less responsive with left side flaccid, dysarthria and left facial droop. Patient transferred to [facility] and upon arrival had decreased LOC. Flight [...] dressing applied at 1228. Patient transported to [place] [address], [facility] and no complications noted. Report given to MAXINE Cooley. CT/CTP/CTA/IR: CTA/CTP time: 1125 CTA/CTP Interpretation time: 1145 N/A Plan: Patient admitted to [place] [address] post procedure for further evaluation and monitoring. [...] Organization Address City/State/Zipcode Phone Number MAIN LAB [address] [place] [address] * POC GLUCOSE (07/09/2018 3:34 PM) Glucose, POC 66 (L) 70 - 100 MG/DL [facility] Performing Organization Address [facility] Phone Number [facility] [address] [place] [address] * POC GLUCOSE (07/09/2018 3:18 PM) Glucose, POC 69 (L) 70 - 100 MG/DL [facility] Performing Organization Address City/[facility] Phone Number [facility] [address] [place] [address] * POC GLUCOSE (07/09/2018 1:49 PM) Glucose, POC 136 (H) 70 - 100 MG/DL [facility] Performing Organization Address [facility] Phone Number [facility] [address] [place] [address] * POC GLUCOSE (07/09/2018 11:40 AM) Glucose, POC 158 (H) 70 - 100 MG/DL [facility] Performing Organization Address City/[facility] Phone Number [facility] [address] [place] [address] * POC GLUCOSE (07/09/2018 8:35 AM) Glucose, POC 104 (H) 70 - 100 MG/DL [facility] Performing Organization Address [facility] Phone Number [facility] [address] [place] [address] * COMPREHENSIVE METABOLIC PANEL (07/09/2018 5:47 AM) [...] City/State/Zipcode Phone Number [facility] [address] [place] [address] * CBC AND DIFF (07/09/2018 5:47 AM) [...] City/State/Zipcode Phone Number [facility] [address] [place] [address] * POC GLUCOSE (07/09/2018 3:09 AM) Glucose, POC 151 (H) 70 - 100 MG/DL [facility] Performing Organization Address City/[facility]/Zipcode Phone Number [facility] [address] [place] [address] * POC GLUCOSE (07/09/2018 1:10 AM) Glucose, POC 80 70 - 100 MG/DL [facility] Performing Organization Address City/[facility] Phone Number MAIN LAB [address] [place] [address] * CULTURE-BLOOD W/SENSITIVITY (07/08/2018 10:25 PM) Battery Name BLOOD CULTURE MAIN LAB Specimen Description BLOOD MAIN LAB LEFT HAND Special Requests NONE MAIN LAB Culture NO GROWTH 5 DAYS MAIN LAB Report Status FINAL MAIN LAB 07/14/2018 Specimen Blood Performing Organization Address City/[facility]/Zipcode Phone Number MAIN LAB [address] [place] [address] * POC GLUCOSE (07/08/2018 9:52 PM) Glucose, POC 96 70 - 100 MG/DL [facility] Performing Organization Address City/[facility] Phone Number MAIN [facility] [address] [place] [address] * CULTURE-BLOOD W/SENSITIVITY (07/08/2018 8:20 PM) Battery Name BLOOD CULTURE MAIN LAB Specimen Description BLOOD MAIN LAB LEFT ANTECUBITAL Special Requests NONE MAIN LAB Culture NO GROWTH 5 DAYS MAIN LAB Report Status FINAL MAIN LAB 07/14/2018 Specimen Blood Performing Organization Address City/[facility]/Zipcode Phone Number MAIN LAB [address] [place] [address] * POC GLUCOSE (07/08/2018 5:56 PM) Glucose, POC 129 (H) 70 - 100 MG/DL [facility] Performing Organization Address City/State/Zipcode Phone Number [facility] [address] [place] [address] * SURGICAL PATHOLOGY (07/08/2018 4:34 PM) PATHOLOGY REPORT [facility] [email or web address] Department of Pathology and Laboratory Medicine [address] [place] [address] Surgical Pathology Office:[phone] :[phone] SURGICAL PATHOLOGY REPORT NAME: VALDEZ ANTHONY SURG PATH #: [id number] MR #: [id number] SPECIMEN CLASS: SR BILLING #: [id number] ALT ID #:LOCATION: DISCHARGED DATE OF PROCEDURE: [...] cassette C1. (ab) ab/07/08/2018 Performing Organization Address [facility]ode Phone Number [facility] RESULTS * UA REFLEX CULTURE LABEL (07/08/2018 4:09 PM) Reflex Culture LAB LABEL [facility] Specimen Urine Performing Organization Address [facility] Phone Number [facility] [address] [place] [address] * URINALYSIS MICROSCOPIC REFLEX TO CULTURE (07/08/2018 4:09 PM) WBCs,UA 0-2 0 - 2 /HPF [facility] RBCs,UA 0-2 0 - 3 /HPF [facility] Comment,UA Urine submitted for reflex [facility] culture if criteria are met:WBC>10, positive nitrite and/or >=1+ leukocyte esterase. If quantity is not sufficient, an addendum will follow. Specimen Urine Performing Organization Address [facility] Phone Number MAIN LAB [address] [place] [address] * URINALYSIS DIPSTICK REFLEX TO CULTURE (07/08/2018 4:09 PM) Color,UA STRAW [facility] Turbidity,UA CLEAR CLEAR-CLEAR [facility] Specific [place]in-Urine 1.005 1.003 - 1.035 [facility]IN [facility] [...] Address City/State/Zipcode Phone Number [facility] [address] [place] [address] * CHEST SINGLE VIEW (07/08/2018 2:15 PM) [...] on 07/08/2018 2:17 PM. Performing Organization Address City/[facility]/Zipcode Phone Number RAD RESULTS * POC GLUCOSE (07/08/2018 1:57 PM) Glucose, POC 75 70 - 100 MG/DL MAIN LAB Performing Organization Address City/[facility] Phone Number MAIN LAB [address] [place] [address] * POC GLUCOSE (07/08/2018 1:21 PM) Glucose, POC 67 (L) 70 - 100 MG/DL MAIN LAB Performing Organization Address [facility] Cent[facility] Phone Number MAIN LAB [address] [place] [address] * POC GLUCOSE (07/08/2018 11:46 AM) Glucose, POC 164 (H) 70 - 100 MG/DL MAIN LAB Performing Organization Address [facility] Cent[facility] Phone Number MAIN LAB [address] [place] [address] * POC GLUCOSE (07/08/2018 11:22 AM) Glucose, POC 40 (LL) 70 - 100 MG/DL MAIN LAB Performing Organization Address [facility] Phone Number MAIN LAB [address] [place] [address] * EGD REPORT (07/08/2018 10:48 AM) Provation Report Patient Name: Raj DIMAS OTHER RESULTS Procedure Date: 07/08/2018 10:48 AM CSN: [id number] Date of : 1960 Gender: Male Attending Physician: Clara Carolina MD Procedure: Upper GI endoscopy Indications: Anemia (Mixed picture of anemia of chronic disease + Iron deficiency anemia), new onset of Afib and not on AC. Providers: Clara Carolina MD (Doctor), Roberto Dutta MD (Fellow), Alvaro Banegas (Nurse), Minna Jiménez RN (Nurse), Abisai Burden, Hog Buyer (Hog Buyer) Referring Physician: Referral Self Medications: Monitored Anesthesia [...] 55 seconds Procedure Code(s): --- Professional --- 09508, Esophagogastroduodenoscopy, flexible, transoral; with biopsy, single or multiple Diagnosis Code(s): --- Professional --- K44.9, Diaphragmatic hernia without obstruction or gangrene K31.89, Other diseases of stomach and duodenum D50.0, Iron deficiency anemia secondary to blood loss (chronic) CPT copyright 2016 [employer]. All rights reserved. The codes documented in this report are preliminary and upon k 12 principal review may be revised to meet current [...] RESULTS Procedure Date: 07/08/2018 10:47 AM CSN: [id number] Date of : 1960 Gender: Male Attending Physician: Clara Carolina MD Procedure: Colonoscop y Indications: Anemia (Mixed picture of anemia of chronic disease + Iron deficiency anemia), new onset of Afib and not on AC. Providers: Clara Carolina MD (Doctor), Roberto Dutta MD (Fellow), Alvaro Banegas (Nurse), Minna Jiménez RN (Nurse), Abisai Burden, Hog Buyer (Hog Buyer) Referring Physician: Gerard Salazar MD Medications: Monitored [...] 15 seconds Procedure Code(s): --- Professional --- 76246, Colonoscopy, flexible; diagnostic, including collection of specimen(s) by brushing or washing, when performed (separate procedure) Diagnosis Code(s): --- Professional --- D50.0, Iron deficiency anemia secondary to blood loss (chronic) CPT copyright 2016 [employer]. All rights reserved. The codes documented in this report are preliminary and upon k 12 principal review may be revised to meet current compliance requirements. Attending Participation: I was present and participated during the entire procedure, including non-jacobs portions. MD Clara De Oliveira MD 07/08/2018 1:28:26 PM The attending physician has electronically signed and finalized this document. Roberto Dutta MD Number of Addenda: 0 Note Initiated On: 07/08/2018 10:47 AM Performing Organization Address City/[facility] Phone Number OTHER RESULTS * POC GLUCOSE (07/08/2018 7:33 AM) Glucose, POC 88 70 - 100 MG/DL [facility] Performing Organization Address [facility] Phone Number MAIN LAB [address] [place] [address] * PROCALCITONIN (07/08/2018 5:53 AM) Procalcitonin 0.13 (H) <0.10 NG/ML [facility] Performing Organization Address [facility] Phone Number [facility] LAB [address] [place] [address] * COMPREHENSIVE METABOLIC PANEL (07/08/2018 5:53 AM) [...] for questions. Specimen Blood Performing Organization Address City/[facility]/Zipcode Phone Number MAIN LAB [address] [place] [address] * CBC AND DIFF (07/08/2018 5:53 AM) [...] MAIN LAB Specimen Blood Performing Organization Address City/[facility]/Zipcode Phone Number MAIN LAB [address] [place] [address] * POC GLUCOSE (07/07/2018 9:26 PM) Glucose, POC 176 (H) 70 - 100 MG/DL [facility] Performing Organization Address City/[facility] Phone Number [facility] [address] [place] [phone] * POC GLUCOSE (07/07/2018 5:54 PM) Glucose, POC 111 (H) 70 - 100 MG/DL [facility] Performing Organization Address City/[facility] Phone Number [facility] [address] [place] [address] * POC GLUCOSE (07/07/2018 11:30 AM) Glucose, POC 90 70 - 100 MG/DL [facility] Performing Organization Address [facility] Phone Number [facility] [address] [place] [phone] * CBC AND DIFF (07/07/2018 8:00 AM) [...] MAIN LAB Specimen Blood Performing Organization Address [facility]ode Phone Number MAIN LAB [address] [place] [address] * POC GLUCOSE (07/07/2018 7:49 AM) Glucose, POC 182 (H) 70 - 100 MG/DL [facility] Performing Organization Address [facility] Phone Number [facility] [address] [place] [address] * COMPREHENSIVE METABOLIC PANEL (07/07/2018 5:45 AM) [...] Clinical Pharmacist for questions. Performing Organization Address [facility] Centercode Phone Number MAIN LAB [address] [place] [address] * HEMOGLOBIN (07/07/2018 5:45 AM) Hemoglobin 9.5 (L) 13.5 - 16.5 GM/DL MAIN LAB Comment: Corrected on 07/09 AT 1021: previously reported as DUPLICATE ORDER, Corrected on 07/07 AT 0811: previously reported as 9.5 Specimen Blood Performing Organization Address City/[facility]ode Phone Number MAIN LAB [address] [place] [address] * HEMOGLOBIN (07/06/2018 10:45 PM) Hemoglobin 10.5 (L) 13.5 - 16.5 GM/DL MAIN LAB Specimen Blood Performing Organization Address [facility] Phone Number MAIN LAB [address] [place] [address] * OCCULT BLOOD NON COLON CANCER SCREEN (07/06/2018 10:45 PM) Battery Name OCCULT BLOOD SCREEN MAIN LAB Specimen Description FECES MAIN LAB Special Requests NONE MAIN LAB Occult Blood NEGATIVE MAIN LAB Report Status FINAL MAIN LAB 07/06/2018 Specimen Stool - Feces Performing Organization Address [facility] Phone Number MAIN LAB [address] [place] [address] * POC GLUCOSE (07/06/2018 9:04 PM) Glucose, POC 115 (H) 70 - 100 MG/DL MAIN LAB Performing Organization Address [facility] Phone Number MAIN LAB [address] [place] [address] * POC GLUCOSE (07/06/2018 5:11 PM) Glucose, POC 150 (H) 70 - 100 MG/DL [facility] Performing Organization Address [facility]ode Phone Number MAIN LAB [address] [place] [address] * POC GLUCOSE (07/06/2018 2:36 PM) Glucose, POC 196 (H) 70 - 100 MG/DL MAIN LAB Performing Organization Address City/[facility]ode Phone Number MAIN LAB [address] [place] [address] * HEMOGLOBIN (07/06/2018 1:31 PM) Hemoglobin 8.9 (L) 13.5 - 16.5 GM/DL MAIN LAB Specimen Blood Performing Organization Address City/[facility] Phone Number [facility] [address] [place] [address] * POC GLUCOSE (07/06/2018 11:49 AM) Glucose, POC 153 (H) 70 - 100 MG/DL [facility] Performing Organization Address [facility]ode Phone Number [facility] [address] [place] [address] * POC GLUCOSE (07/06/2018 7:29 AM) Glucose, POC 130 (H) 70 - 100 MG/DL [facility] Performing Organization Address [facility] Phone Number [facility] [address] [place] [address] * HEMOGLOBIN (07/06/2018 4:27 AM) Hemoglobin 9.1 (L) 13.5 - 16.5 GM/DL MAIN LAB Specimen Blood Performing Organization Address [facility] Phone Number MAIN LAB [address] [place] [address] * CBC (07/06/2018 4:27 AM) White Blood [...] MAIN LAB Specimen Blood Performing Organization Address [facility] Phone Number [facility] [address] [place] [address] * BASIC METABOLIC PANEL (07/06/2018 4:27 AM) [...] for questions. Specimen Blood Performing Organization Address City/[facility]/Zipcode Phone Number MAIN LAB [address] [place] [address] * POC GLUCOSE (07/06/2018 2:35 AM) Glucose, POC 132 (H) 70 - 100 MG/DL [facility] Performing Organization Address City/[facility] Phone Number MAIN LAB [address] [place] [address] * POC GLUCOSE (07/05/2018 10:09 PM) Glucose, POC 89 70 - 100 MG/DL [facility] Performing Organization Address [facility]cond Phone Number MAIN LAB [address] [place] [address] * HEMOGLOBIN (07/05/2018 9:40 PM) Hemoglobin 10.1 (L) 13.5 - 16.5 GM/DL [facility] Specimen Blood Performing Organization Address City/[facility]/[employer] Phone Number MAIN LAB [address] [place] [address] * POC GLUCOSE (07/05/2018 9:37 PM) Glucose, POC 77 70 - 100 MG/DL [facility] Performing Organization Address [facility]ercode Phone Number MAIN LAB [address] [place] [address] * POC GLUCOSE (07/05/2018 8:15 PM) Glucose, POC 81 70 - 100 MG/DL [facility] Performing Organization Address City/[facility]/Zipcode Phone Number [facility] [address] [place] [address] * CULTURE-URINE W/SENSITIVITY (07/05/2018 6:45 PM) Battery Name URINE CULTURE [facility] Specimen Description URINE [facility] Special Requests NONE [facility] Culture NO GROWTH [facility] Report Status FINAL [facility] 07/06/2018 Specimen Urine Performing Organization Address [facility]ercode Phone Number [facility] [address] [place] [address] * UA REFLEX CULTURE LABEL (07/05/2018 6:45 PM) UA Reflex Culture LAB LABEL [facility] Specimen Urine Performing Organization Address [facility]ercode Phone Number [facility] [address] [place] [address] * URINALYSIS MICROSCOPIC REFLEX TO CULTURE (07/05/2018 [...] MAIN LAB Specimen Urine Performing Organization Address [facility] Centercode Phone Number [facility] [address] [place] [address] * URINALYSIS DIPSTICK REFLEX TO CULTURE (07/05/2018 6:45 PM) Color,UA YELLOW [facility] Turbidity,UA 2+ (A) CLEAR-CLEAR [facility] Specific [place]-Urine 1.017 1.003 - 1.035 [facility] MAIN LAB [...] LAB Urine Ascorbic Acid, UA NEG NEG-NEG [facility]IN [facility] Specimen Urine Performing Organization Address [facility] Centercode Phone Number [facility] [address] [place] [address] * POC GLUCOSE (07/05/2018 4:37 PM) Glucose, POC 79 70 - 100 MG/DL [facility] Performing Organization Address [facility]ercode Phone Number [facility] [address] [place] [address] * POC GLUCOSE (07/05/2018 2:02 PM) Glucose, POC 92 70 - 100 MG/DL [facility] Performing Organization Address [facility]cond Phone Number [facility] [address] [place] [address] * HEMOGLOBIN (07/05/2018 2:00 PM) Hemoglobin 9.6 (L) 13.5 - 16.5 GM/DL [facility]IN [facility] Specimen Blood Performing Organization Address [facility]cond Phone Number [facility] [address] [place] [address] * POC GLUCOSE (07/05/2018 11:32 AM) Glucose, POC 102 (H) 70 - 100 MG/DL [facility] Performing Organization Address [facility] Phone Number MAIN LAB [address] [place] [address] * ABDOMEN AP ONLY (07/05/2018 9:20 AM) [...] on 07/05/2018 10:21 AM. Performing Organization Address [facility] CenterMah[facility] REVAnd Phone Number RAD RESULTS * POC GLUCOSE (07/05/2018 6:56 AM) Glucose, POC 139 (H) 70 - 100 MG/DL MAIN LAB Performing Organization Address [facility] Center[facility] Phone Number [facility] [address] [place] [address] * CBC (07/05/2018 5:50 AM) White Blood Cells 12.4 (H) 4.5 - 11.0 K/UL [facility] RBC 3.21 (L) 4.4 - 5.5 M/UL [facility] Hemoglobin 9.5 (L) 13.5 - 16.5 GM/DL [facility] Hematocrit 27.9 (L) 40 - 50 % [facility] MCV 86.9 80 - 100 FL [facility] MCH 29.6 26 - 34 PG [facility] MCHC 34.1 32.0 - 36.0 G/DL [facility] RDW 14.0 11 - 15 % [facility] Platelet Count 413 (H) 150 - 400 K/UL [facility] MPV 8.7 7 - 11 FL [facility] Specimen Blood Performing Organization Address [facility] CenterMah[facility]And Phone Number [facility] [address] [place] [address] * POC GLUCOSE (07/05/2018 5:29 AM) Glucose, POC 125 (H) 70 - 100 MG/DL MAIN LAB Performing Organization Address [facility] Centercode Phone Number MAIN LAB [address] [place] [address] * BASIC METABOLIC PANEL (07/05/2018 5:25 AM) [...] for questions. Specimen Blood Performing Organization Address City/[facility]/Zipcode Phone Number MAIN LAB [address] [place] [address] * POC GLUCOSE (07/05/2018 2:37 AM) Glucose, POC 103 (H) 70 - 100 MG/DL [facility] Performing Organization Address [facility]ercode Phone Number MAIN LAB [address] [place] [address] * POC GLUCOSE (07/05/2018 1:31 AM) Glucose, POC 94 70 - 100 MG/DL [facility] Performing Organization Address City/[facility]/Zipcode Phone Number MAIN LAB [address] [place] [address] * POC GLUCOSE (07/05/2018 12:41 AM) Glucose, POC 121 (H) 70 - 100 MG/DL [facility] Performing Organization Address City/[facility]/Zipcode Phone Number MAIN LAB [address] [place] [address] * POC GLUCOSE (07/04/2018 11:19 PM) Glucose, POC 84 70 - 100 MG/DL [facility] Performing Organization Address City/[facility]/Zipcode Phone Number [facility] [address] [place] [address] * HEMOGLOBIN (07/04/2018 9:30 PM) Hemoglobin 13.5 13.5 - 16.5 GM/DL [facility] Specimen Blood Performing Organization Address City/[facility] Phone Number [facility] [address] [place] [address] * POC GLUCOSE (07/04/2018 9:15 PM) Glucose, POC 105 (H) 70 - 100 MG/DL [facility] Performing Organization Address [facility]erc[facility] Phone Number [facility] [address] [place] [address] * POC GLUCOSE (07/04/2018 7:50 PM) Glucose, POC 164 (H) 70 - 100 MG/DL [facility] Performing Organization Address City/[facility] Phone Number [facility] [address] [place] [address] * POC GLUCOSE (07/04/2018 7:23 PM) Glucose, POC 44 (LL) 70 - 100 MG/DL [facility] Performing Organization Address [facility] Phone Number [facility] [address] [place] [address] * POC GLUCOSE (07/04/2018 5:10 PM) Glucose, POC 96 70 - 100 MG/DL [facility] Performing Organization Address [facility] Centercode Phone Number MAIN LAB [address] [place] [address] * IRON + BINDING CAPACITY + %SAT+ FERRITIN (07/04/2018 2:20 PM) Iron 49 (L) 50 - 185 MCG/DL [facility] Iron Binding-TIBC 212 (L) 270 - 380 MCG/DL [facility] % Saturation 23 (L) 28 - 42 % [facility] Ferritin 383 (H) 30 - 300 NG/ML [facility] Specimen Blood Performing Organization Address City/[facility]/Zipcode Phone Number MAIN LAB [address] [place] [address] * POC GLUCOSE (07/04/2018 2:19 PM) Glucose, POC 137 (H) 70 - 100 MG/DL [facility] Performing Organization Address City/[facility] Phone Number MAIN LAB [address] [place] [address] * POC GLUCOSE (07/04/2018 1:42 PM) Glucose, POC 114 (H) 70 - 100 MG/DL [facility] Performing Organization Address City/[facility] Phone Number MAIN LAB [address] [place] [address] * POC GLUCOSE (07/04/2018 1:16 PM) Glucose, POC 55 (L) 70 - 100 MG/DL [facility] Performing Organization Address City/[facility] Phone Number MAIN LAB [address] [place] [address] * HEMOGLOBIN (07/04/2018 1:15 PM) Hemoglobin 9.4 (L) 13.5 - 16.5 GM/DL [facility] Specimen Blood Performing Organization Address City/[facility]erc[facility] Phone Number MAIN LAB [address] [place] [address] * POC GLUCOSE (07/04/2018 12:52 PM) Glucose, POC 66 (L) 70 - 100 MG/DL [facility] Performing Organization Address [facility]erc[facility] Phone Number MAIN LAB [address] [place] [address] * POC GLUCOSE (07/04/2018 12:19 PM) Glucose, POC 66 (L) 70 - 100 MG/DL [facility] Performing Organization Address City/[facility]/Zipcode Phone Number MAIN LAB [address] [place] [address] * POC GLUCOSE (07/04/2018 12:17 PM) Glucose, POC 59 (L) 70 - 100 MG/DL [facility] Performing Organization Address City/[facility] Phone Number MAIN LAB [address] [place] [address] * POC GLUCOSE (07/04/2018 10:28 AM) Glucose, POC 144 (H) 70 - 100 MG/DL [facility] Performing Organization Address City/[facility] Phone Number [facility] [address] [place] [address] * POC GLUCOSE (07/04/2018 9:31 AM) Glucose, POC 197 (H) 70 - 100 MG/DL [facility] Performing Organization Address City/[facility] Phone Number [facility] [address] [place] [address] * POC GLUCOSE (07/04/2018 8:38 AM) Glucose, POC 184 (H) 70 - 100 MG/DL [facility] Performing Organization Address City/[facility] Phone Number [facility] [address] [place] [address] * POC GLUCOSE (07/04/2018 7:29 AM) Glucose, POC 150 (H) 70 - 100 MG/DL [facility] Performing Organization Address [facility] Phone Number [facility] [address] [place] [address] * POC GLUCOSE (07/04/2018 6:31 AM) Glucose, POC 119 (H) 70 - 100 MG/DL [facility] Performing Organization Address [facility] Phone Number [facility] [address] [place] [address] * CBC (07/04/2018 5:47 AM) White Blood [...] MAIN LAB Specimen Blood Performing Organization Address [facility]erc[facility] Phone Number MAIN LAB [address] [place] [address] * BASIC METABOLIC PANEL (07/04/2018 5:47 AM) [...] for questions. Specimen Blood Performing Organization Address City/[facility]/Zipcode Phone Number MAIN LAB [address] [place] [address] * POC GLUCOSE (07/04/2018 5:36 AM) Glucose, POC 126 (H) 70 - 100 MG/DL [facility] Performing Organization Address City/[facility] Phone Number MAIN LAB [address] [place] [address] * POC GLUCOSE (07/04/2018 4:36 AM) Glucose, POC 94 70 - 100 MG/DL [facility] Performing Organization Address City/[facility] Phone Number [facility] [address] [place] [address] * POC GLUCOSE (07/04/2018 3:24 AM) Glucose, POC 120 (H) 70 - 100 MG/DL [facility] Performing Organization Address City/[facility] Phone Number MAIN LAB [address] [place] [address] * POC GLUCOSE (07/04/2018 2:14 AM) Glucose, POC 112 (H) 70 - 100 MG/DL [facility] Performing Organization Address City/[facility] Phone Number MAIN LAB [address] [place] [address] * POC GLUCOSE (07/04/2018 12:37 AM) Glucose, POC 126 (H) 70 - 100 MG/DL [facility] Performing Organization Address [facility] Phone Number MAIN LAB [address] [place] [address] * BLOOD TYPE CONFIRMATION - ORDER ONLY IF REQUESTED BY LAB (07/04/2018 12:13 AM) ABO/RH(D) O NEG MAIN LAB Specimen Blood Performing Organization Address [facility]ercode Phone Number MAIN LAB [address] [place] [address] * TYPE & CROSSMATCH (07/03/2018 11:48 PM) Units Ordered 1 MAIN LAB Crossmatch Expires 07/06/2018 MAIN LAB Record Check 2ND TYPE REQUIRED MAIN LAB ABO/RH(D) O NEG MAIN LAB Antibody Screen NEG MAIN LAB Electronic Crossmatch YES [facility] Unit Number [id number] MAIN LAB Blood Component Type RBC,CPDA,LEUKO REDUCED MAIN LAB Unit Division 0 MAIN LAB Status OF Unit TRANSFUSED MAIN LAB Transfusion Status OK TO TRANSFUSE MAIN LAB Crossmatch Result COMPATIBLE,ELECTRONIC MAIN LAB Specimen Blood Performing Organization Address [facility] Phone Number MAIN LAB [address] [place] [address] * POC GLUCOSE (07/03/2018 11:21 PM) Glucose, POC 197 (H) 70 - 100 MG/DL [facility] Performing Organization Address [facility] Phone Number MAIN LAB [address] [place] [address] * POC GLUCOSE (07/03/2018 10:12 PM) Glucose, POC 218 (H) 70 - 100 MG/DL [facility] Performing Organization Address [facility]/Zipcode Phone Number MAIN LAB [address] [place] [address] * HEMOGLOBIN (07/03/2018 10:02 PM) Hemoglobin 6.8 (L) 13.5 - 16.5 GM/DL [facility] Specimen Blood Performing Organization Address City/State/Zipcode Phone Number MAIN LAB [address] [place] [address] * POC GLUCOSE (07/03/2018 9:19 PM) Glucose, POC 187 (H) 70 - 100 MG/DL [facility] Performing Organization Address City/State/Zipcode Phone Number MAIN LAB [address] [place] [address] * POC GLUCOSE (07/03/2018 7:40 PM) Glucose, POC 113 (H) 70 - 100 MG/DL [facility] Performing Organization Address City/State/Zipcode Phone Number MAIN LAB [address] [place] [address] * POC GLUCOSE (07/03/2018 6:37 PM) Glucose, POC 143 (H) 70 - 100 MG/DL [facility] Performing Organization Address City/[facility]/Zipcode Phone Number MAIN LAB [address] [place] [address] * POC GLUCOSE (07/03/2018 5:31 PM) Glucose, POC 157 (H) 70 - 100 MG/DL MAIN LAB Performing Organization Address City/[facility]/Zipcode Phone Number MAIN LAB [address] [place] [address] * POC GLUCOSE (07/03/2018 4:35 PM) Glucose, POC 190 (H) 70 - 100 MG/DL [facility] Performing Organization Address City/[facility]/Zipcode Phone Number MAIN LAB [address] [place] [address] * POC GLUCOSE (07/03/2018 3:36 PM) Glucose, POC 190 (H) 70 - 100 MG/DL MAIN LAB Performing Organization Address City/[facility]/Zipcode Phone Number MAIN LAB [address] [place] [address] * HEMOGLOBIN (07/03/2018 3:25 PM) Hemoglobin 7.2 (L) 13.5 - 16.5 GM/DL MAIN LAB Specimen Blood Performing Organization Address City/State/Zipcode Phone Number MAIN LAB [address] [place] [address] * POC GLUCOSE (07/03/2018 2:22 PM) Glucose, POC 176 (H) 70 - 100 MG/DL [facility] Performing Organization Address [facility] Phone Number [facility] [address] [place] [address] * POC GLUCOSE (07/03/2018 1:24 PM) Glucose, POC 254 (H) 70 - 100 MG/DL [facility] Performing Organization Address [facility] Phone Number [facility] [address] [place] [address] * POC GLUCOSE (07/03/2018 12:20 PM) Glucose, POC 307 (H) 70 - 100 MG/DL [facility] Performing Organization Address [facility] Phone Number MAIN LAB [address] [place] [address] * POC GLUCOSE (07/03/2018 10:45 AM) Glucose, POC 268 (H) 70 - 100 MG/DL [facility] Performing Organization Address [facility] Phone Number [facility] [address] [place] [address] * POC GLUCOSE (07/03/2018 9:22 AM) Glucose, POC 233 (H) 70 - 100 MG/DL MAIN LAB Performing Organization Address [facility] Phone Number MAIN LAB [address] [place] [address] * SWALLOW MOTION SERIES (07/03/2018 8:59 AM) [...] 100 MG/DL MAIN LAB Performing Organization Address City/[facility]/Zipcode Phone Number MAIN LAB [address] [place] [address] * ECG-SCAN (07/03/2018 7:35 AM) Narrative Performed At Ordered by an unspecified provider. * POC GLUCOSE (07/03/2018 5:03 AM) Glucose, POC 109 (H) 70 - 100 MG/DL [facility] Performing Organization Address [facility] [facility] Phone Number [facility] LAB [address] [place] [address] * CBC (07/03/2018 4:11 AM) White Blood [...] MAIN LAB Specimen Blood Performing Organization Address City/[facility] Phone Number [facility] LAB [address] [place] [address] * BASIC METABOLIC PANEL (07/03/2018 4:11 AM) [...] City/State/Zipcode Phone Number [facility] [address] [place] [address] * POC GLUCOSE (07/03/2018 3:57 AM) Glucose, POC 132 (H) 70 - 100 MG/DL [facility] Performing Organization Address City/State/Zipcode Phone Number MAIN LAB [address] [place] [address] * POC GLUCOSE (07/03/2018 3:06 AM) Glucose, POC 145 (H) 70 - 100 MG/DL [facility] Performing Organization Address City/State/Zipcode Phone Number MAIN LAB [address] [place] [address] * POC GLUCOSE (07/03/2018 2:01 AM) Glucose, POC 154 (H) 70 - 100 MG/DL [facility] Performing Organization Address City/State/Zipcode Phone Number MAIN LAB [address] [place] [address] * POC GLUCOSE (07/03/2018 1:05 AM) Glucose, POC 112 (H) 70 - 100 MG/DL MAIN LAB Performing Organization Address City/State/Zipcode Phone Number MAIN LAB [address] [place] [address] * POC GLUCOSE (07/03/2018 12:35 AM) Glucose, POC 98 70 - 100 MG/DL MAIN LAB Performing Organization Address City/State/Zipcode Phone Number MAIN LAB [address] [place] [address] * POC GLUCOSE (07/03/2018 12:13 AM) Glucose, POC 78 70 - 100 MG/DL [facility] Performing Organization Address City/State/Zipcode Phone Number MAIN LAB [address] [place] [address] * POC GLUCOSE (07/02/2018 11:03 PM) Glucose, POC 102 (H) 70 - 100 MG/DL [facility] Performing Organization Address City/State/Zipcode Phone Number MAIN LAB [address] [place] [address] * POC GLUCOSE (07/02/2018 9:56 PM) Glucose, POC 184 (H) 70 - 100 MG/DL [facility] Performing Organization Address City/State/Zipcode Phone Number [facility] [address] [place] [address] * POC GLUCOSE (07/02/2018 9:36 PM) Glucose, POC 49 (LL) 70 - 100 MG/DL [facility] Performing Organization Address City/State/Zipcode Phone Number MAIN LAB [address] [place] [address] * POC GLUCOSE (07/02/2018 9:32 PM) Glucose, POC 50 (L) 70 - 100 MG/DL [facility] Performing Organization Address City/State/Zipcode Phone Number MAIN LAB [address] [place] [address] * POC GLUCOSE (07/02/2018 9:13 PM) Glucose, POC 59 (L) 70 - 100 MG/DL [facility] Performing Organization Address City/[facility]/Zipcode Phone Number MAIN LAB [address] [place] [address] * POC GLUCOSE (07/02/2018 9:11 PM) Glucose, POC 58 (L) 70 - 100 MG/DL [facility] Performing Organization Address City/[facility]/Zipcode Phone Number MAIN LAB [address] [place] [address] * POC GLUCOSE (07/02/2018 7:58 PM) Glucose, POC 121 (H) 70 - 100 MG/DL [facility] Performing Organization Address City/[facility]/Zipcode Phone Number MAIN LAB [address] [place] [address] * POC GLUCOSE (07/02/2018 6:56 PM) Glucose, POC 162 (H) 70 - 100 MG/DL [facility] Performing Organization Address City/[facility]/Zipcode Phone Number MAIN LAB [address] [place] [address] * POC GLUCOSE (07/02/2018 6:07 PM) Glucose, POC 180 (H) 70 - 100 MG/DL [facility] Performing Organization Address City/State/Zipcode Phone Number MAIN LAB [address] [place] [address] * POC GLUCOSE (07/02/2018 4:52 PM) Glucose, POC 195 (H) 70 - 100 MG/DL [facility] Performing Organization Address City/State/Zipcode Phone Number MAIN LAB [address] [place] [address] * POC GLUCOSE (07/02/2018 4:24 PM) Glucose, POC 204 (H) 70 - 100 MG/DL [facility] Performing Organization Address City/State/Zipcode Phone Number MAIN LAB [address] [place] [address] * POC GLUCOSE (07/02/2018 3:09 PM) Glucose, POC 212 (H) 70 - 100 MG/DL [facility] Performing Organization Address City/State/Zipcode Phone Number MAIN LAB [address] [place] [address] * POC GLUCOSE (07/02/2018 2:13 PM) Glucose, POC 204 (H) 70 - 100 MG/DL [facility] Performing Organization Address City/State/Zipcode Phone Number MAIN LAB [address] [place] [address] * POC GLUCOSE (07/02/2018 12:59 PM) Glucose, POC 235 (H) 70 - 100 MG/DL [facility] Performing Organization Address City/[facility]/Zipcode Phone Number MAIN LAB [address] [place] [address] * POC GLUCOSE (07/02/2018 12:02 PM) Glucose, POC 244 (H) 70 - 100 MG/DL [facility] Performing Organization Address City/State/Zipcode Phone Number MAIN LAB [address] [place] [address] * POC GLUCOSE (07/02/2018 11:10 AM) Glucose, POC 229 (H) 70 - 100 MG/DL MAIN LAB Performing Organization Address City/State/Zipcode Phone Number MAIN LAB [address] [place] [address] * ABDOMEN AP ONLY (07/02/2018 10:20 AM) [...] on 07/02/2018 11:09 AM. Performing Organization Address City/State/[facility] Phone Number RAD RESULTS * POC GLUCOSE (07/02/2018 10:14 AM) Glucose, POC 212 (H) 70 - 100 MG/DL [facility] Performing Organization Address City/[facility] Phone Number [facility] MAIN LAB [address] [place] [address] * POC GLUCOSE (07/02/2018 9:22 AM) Glucose, POC 209 (H) 70 - 100 MG/DL [facility] Performing Organization Address City/State/Zipcode Phone Number [facility] MAIN LAB [address] [place] [address] * POC GLUCOSE (07/02/2018 8:04 AM) Glucose, POC 186 (H) 70 - 100 MG/DL [facility] Performing Organization Address City/[facility] Phone Number [facility] MAIN LAB [address] [place] [address] * POC GLUCOSE (07/02/2018 6:05 AM) Glucose, POC 142 (H) 70 - 100 MG/DL [facility] Performing Organization Address City/[facility] Phone Number MAIN LAB [address] [place] [address] * POC GLUCOSE (07/02/2018 5:00 AM) Glucose, POC 125 (H) 70 - 100 MG/DL [facility] Performing Organization Address City/[facility] Phone Number MAIN LAB [address] [place] [address] * PHOSPHORUS (07/02/2018 4:15 AM) Phosphorus 2.6 2.0 - 4.0 MG/DL MAIN LAB Specimen Blood Performing Organization Address City/[facility] Phone Number MAIN LAB [address] [place] [address] * MAGNESIUM (07/02/2018 4:15 AM) Magnesium 1.9 1.6 - 2.6 mg/dL MAIN LAB Specimen Blood Performing Organization Address City/[facility] Phone Number MAIN LAB [address] [place] [address] * IONIZED CALCIUM (07/02/2018 4:15 AM) Ionized Calcium 1.14 1.0 - 1.3 MMOL/L MAIN LAB Specimen Blood Performing Organization Address [facility] Phone Number MAIN LAB [address] [place] [address] * CULTURE-BLOOD W/SENSITIVITY (07/02/2018 4:15 AM) Battery Name BLOOD CULTURE MAIN LAB Specimen Description BLOOD MAIN LAB RIGHT RADIAL ARTERIAL Special Requests NONE [facility] Culture NO GROWTH 5 DAYS [facility]IN [facility] Report Status FINAL MAIN LAB 07/08/2018 Specimen Blood Performing Organization Address City/[facility] Phone Number MAIN LAB [address] [place] [address] * CBC (07/02/2018 4:15 AM) White Blood [...] MAIN LAB Specimen Blood Performing Organization Address City/[facility]/Zipcode Phone Number MAIN LAB [address] [place] [address] * BASIC METABOLIC PANEL (07/02/2018 4:15 AM) [...] for questions. Specimen Blood Performing Organization Address City/[facility]/Zipcode Phone Number MAIN LAB [address] [place] [address] * POC GLUCOSE (07/02/2018 4:00 AM) Glucose, POC 129 (H) 70 - 100 MG/DL [facility] Performing Organization Address City/[facility]/Zipcode Phone Number MAIN LAB [address] [place] [address] * POC GLUCOSE (07/02/2018 3:06 AM) Glucose, POC 116 (H) 70 - 100 MG/DL [facility] Performing Organization Address City/[facility]/Zipcode Phone Number MAIN LAB [address] [place] [address] * POC GLUCOSE (07/02/2018 2:02 AM) Glucose, POC 113 (H) 70 - 100 MG/DL [facility] Performing Organization Address City/[facility]/Zipcode Phone Number MAIN LAB [address] [place] [address] * POC GLUCOSE (07/02/2018 1:12 AM) Glucose, POC 147 (H) 70 - 100 MG/DL [facility] Performing Organization Address City/State/Zipcode Phone Number MAIN LAB [address] [place] [address] * POC GLUCOSE (07/02/2018 12:05 AM) Glucose, POC 155 (H) 70 - 100 MG/DL [facility] Performing Organization Address City/[facility]/Zipcode Phone Number MAIN LAB [address] [place] [address] * POC GLUCOSE (07/01/2018 11:03 PM) Glucose, POC 128 (H) 70 - 100 MG/DL MAIN LAB Performing Organization Address City/[facility] Phone Number MAIN LAB [address] [place] [address] * POC GLUCOSE (07/01/2018 10:07 PM) Glucose, POC 208 (H) 70 - 100 MG/DL [facility] Performing Organization Address City/[facility] Phone Number MAIN LAB [address] [place] [address] * POC GLUCOSE (07/01/2018 9:18 PM) Glucose, POC 184 (H) 70 - 100 MG/DL MAIN LAB Performing Organization Address City/[facility]/Zipcode Phone Number MAIN LAB [address] [place] [address] * MRI HEAD WO CONTRAST (07/01/2018 9:10 [...] the posterior medial left temporal lobe. 3. Restorationism of flow void within the right M1 [...] changes. Major vascular flow voids of the saxman of Tse and dural venous sinuses are preserved. There is orthodoxy of flow void in the right M1 [...] changes. Major vascular flow voids of the saxman of Tse and dural venous sinuses are preserved. There is orthodoxy of flow void in the right M1 [...] the posterior medial left temporal lobe. 3. 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 Performing Organization Address City/[facility] CentercoFab[facility] Online Phone Number RAD RESULTS * POC GLUCOSE (07/01/2018 8:07 PM) Glucose, POC 184 (H) 70 - 100 MG/DL [facility]IN [facility] Performing Organization Address City/[facility] Phone Number [facility] MAIN LAB [address] [place] [address] * POC GLUCOSE (07/01/2018 6:59 PM) Glucose, POC 190 (H) 70 - 100 MG/DL [facility] Performing Organization Address [facility] Phone Number [facility] MAIN LAB [address] [place] [address] * POC GLUCOSE (07/01/2018 6:03 PM) Glucose, POC 169 (H) 70 - 100 MG/DL [facility] Performing Organization Address City/[facility] Phone Number [facility] MAIN LAB [address] [place] [address] * POC GLUCOSE (07/01/2018 5:10 PM) Glucose, POC 154 (H) 70 - 100 MG/DL [facility] Performing Organization Address [facility] Phone Number [facility] MAIN LAB [address] [place] [address] * POC GLUCOSE (07/01/2018 4:04 PM) Glucose, POC 195 (H) 70 - 100 MG/DL [facility] Performing Organization Address City/[facility]ode Phone Number [facility] [address] [place] [address] * BLOOD GASES, ARTERIAL (07/01/2018 3:06 PM) pH-Arterial 7.34 (L) 7.35 - 7.45 [facility] pCO2-Arterial 39 35 - 45 MMHG [facility] pO2-Arterial 102 (H) 80 - 100 MMHG [facility] MAIN [facility] Base Deficit-Arterial 4.6 MMOL/L [facility] O2 Sat-Arterial 97.5 95 - 99 % [facility] LAB Syushhgzaxs-INQ-Lma 20.6 (L) 21 - 28 MMOL/L [facility] LAB Specimen Blood, arterial - Blood Performing Organization Address [facility] Phone Number [facility] LAB [address] [place] [address] * POC GLUCOSE (07/01/2018 3:05 PM) Glucose, POC 195 (H) 70 - 100 MG/DL [facility] Performing Organization Address [facility] Phone Number [facility] [address] [place] [address] * CT HEAD WO CONTRAST (07/01/2018 2:46 [...] 72.37 % OTHER OUTSIDE LAB AV index (paskenta) 0.56 OTHER OUTSIDE LAB E/A ratio 1.35 OTHER OUTSIDE LAB E/E' ratio 10.67 OTHER OUTSIDE LAB CV ECHO PV DISEASE INTERVENTION SPECIALIST Yasir, RN OTHER OUTSIDE LAB LV mass 118.49 96 - 200 g OTHER OUTSIDE LAB RWT 0.36 <=0.42 OTHER OUTSIDE LAB TV rest pulmonary artery 22 mmHg OTHER OUTSIDE LAB pressure Right Heart Systolic TDI 0.110 m/s OTHER OUTSIDE LAB S' Cardiology Ultrasound Siemens [id number] OTHER OUTSIDE LAB Machine ECHO EF 60 [...] City/State/Zipcode Phone Number [facility]IN [facility] [address] [place] [address] * POC GLUCOSE (07/01/2018 1:02 PM) Glucose, POC 169 (H) 70 - 100 MG/DL [facility] Performing Organization Address [facility]/Zipcode Phone Number [facility] [address] [place] [address] * UA REFLEX CULTURE LABEL (07/01/2018 12:53 PM) UA Reflex Culture LAB LABEL [facility]IN [facility] Specimen Urine Performing Organization Address [facility]ode Phone Number [facility] [address] [place] [address] * URINALYSIS MICROSCOPIC REFLEX TO CULTURE (07/01/2018 [...] MAIN LAB Specimen Urine Performing Organization Address [facility] Phone Number [facility] [address] [place] [address] * URINALYSIS DIPSTICK REFLEX TO CULTURE (07/01/2018 12:53 PM) Color,UA STRAW [facility] MA[facility] Turbidity,UA CLEAR CLEAR-CLEAR [facility] Specific [place]-Urine 1.018 1.003 - 1.035 [facility] MAIN LAB [...] MAIN LAB Specimen Urine Performing Organization Address [facility]ercode Phone Number [facility] [address] [place] [address] * LACTIC ACID(LACTATE) (07/01/2018 12:50 PM) Lactic Acid 1.5 0.5 - 2.0 MMOL/L [facility] Performing Organization Address [facility] Phone Number [facility] [address] [place] [address] * BETA HYDROXYBUTYRATE (KETONES) (07/01/2018 12:50 PM) Beta Hydroxybutyrate 0.1 <0.3 MMOL/L [facility] Comment: Beta hydroxybutyrate (BOHB) is the most abundant ketone (78%), followed by acetoacetate (20%) and acetone (2%).Measurement BOHB is recommended to assess ketones in DKA. Expected BOHB Results for DKA: Initial presentation high/increasing During treatment decreasing Resolved decreasing/normal Performing Organization Address City/[facility] Phone Number MAIN LAB [address] [place] [id number] * LACTIC ACID (BG - RAPID LACTATE) (07/01/2018 12:50 PM) Lactic Acid,BG 1.5 0.5 - 2.0 MMOL/L [facility] Specimen Blood Performing Organization Address [facility] Phone Number [facility] [address] [place] [address] * CBC AND DIFF (07/01/2018 12:50 PM) [...] MAIN LAB Specimen Blood Performing Organization Address [facility] Phone Number [facility] [address] [place] [address] * IONIZED CALCIUM (07/01/2018 12:50 PM) Ionized Calcium 1.14 1.0 - 1.3 MMOL/L MAIN LAB Specimen Blood Performing Organization Address [facility] Phone Number MAIN LAB [address] [place] [address] * PHOSPHORUS (07/01/2018 12:50 PM) Phosphorus 2.6 2.0 - 4.0 MG/DL [facility] Specimen Blood Performing Organization Address [facility] Phone Number MAIN LAB [address] [place] [address] * MAGNESIUM (07/01/2018 12:50 PM) Magnesium 2.0 1.6 - 2.6 mg/dL [facility]IN [facility] Specimen Blood Performing Organization Address [facility] Phone Number [facility] [address] [place] [address] * LIPID PROFILE (07/01/2018 12:50 PM) Cholesterol [...] 130 mg/dL. Specimen Blood Performing Organization Address [facility] Phone Number MAIN LAB [address] [place] [address] * COMPREHENSIVE METABOLIC PANEL (07/01/2018 12:50 PM) [...] for questions. Specimen Blood Performing Organization Address City/[facility]/Zipcode Phone Number MAIN LAB [address] [place] [address] * HEMOGLOBIN A1C (07/01/2018 12:50 PM) Hemoglobin A1C 17.4 (H) 4.0 - 6.0 % [facility] Comment: The ADA recommends that most patients with type 1 and type 2 diabetes maintain an A1c level <7%. Specimen Blood Performing Organization Address City/[facility]/Zipcode Phone Number MAIN LAB [address] [place] [address] * IR ARTERIOGRAM NEURO (07/01/2018 12:29 PM) [...] Fentanyl 25 mcg Contrast - 100 cc [id number] Total mGy - 421 Anesthesia:conscious sedation Consent [...] the sheath was advanced over a 5 Croatian 125 cm Vert catheter over a 180 cm 0.035 Jenner wire over the aortic arch and into [...] therefore, hemostasis was achieved using an 8 Croatian Angioseal closure device followed by manual pressure [...] Fentanyl 25 mcg Contrast - 100 cc [id number] Total mGy - 421 Anesthesia: conscious sedation [...] the sheath was advanced over a 5 Croatian 125 cm Vert catheter over a 180 cm 0.035 Jenner wire over the aortic arch and into [...] therefore, hemostasis was achieved using an 8 Croatian Angioseal closure device followed by manual pressure [...] 11:51 AM on 07/01/2018 by the residential nurse in consultation with TALIA BOSTON M.D.. Approved [...] 11:51 AM on 07/01 by the residential nurse in consultation with TALIA BOSTON M.D.. Approved [...] 11:51 AM on 07/01/2018 by the residential nurse in consultation with TALIA BOSTON M.D.. Approved [...] 11:51 AM on 07/01 by the residential nurse in consultation with TALIA BOSTON M.D.. Approved [...] 11:51 AM on 07/01/2018 by the residential nurse in consultation with TALIA BOSTON M.D.. Approved [...] 11:51 AM on 07/01 by the residential nurse in consultation with TALIA BOSTON M.D.. Approved [...] 0649, Until Padma 07/09/18 at 1756, Constipation HI, Hold for loose stools heparin (porcine) PF [...]
--- OUTSIDE RECORDS SUMMARY | 2018-08-08 20:39 | XMS REPORT | Encounter Summary ---
Author Author [facility] Organization [facility] Address Unknown Phone Unavailable Care Team Providers Care Equipment Oiler Name Role Phone Damien Caceres MD Unavailable Melo Adame MD Unavailable Unavailable Alvarez Ozuna NP PCP Hilary Davenport RN Unavailable Unavailable Encounter Details Date Type Department Care Team Description 07/01/2018 Procedure Pass [id number] [place] [address] Social History Tobacco Use Types Packs/Day Years Used Date Former Smoker Cigars 2 20 Quit: 10/20/2011 Smokeless Tobacco: Never Used Alcohol Use Drinks/Week oz/Week Comments No Sex Assigned at Date Recorded Not on file as of this encounter Plan of Treatment Not on fileas of this encounter Visit Diagnoses Not on filein this encounter
--- OUTSIDE RECORDS SUMMARY | 2018-08-08 20:39 | XMS REPORT | Encounter Summary ---
Author Author [facility] Organization [facility] Address Unknown Phone Unavailable Care Team Providers Care Project Manager Entertainment And Media Name Role Phone Damien Caceres MD Unavailable Melo Adame MD Unavailable Unavailable Alvarez Ozuna NP PCP Hilary Davenport RN Unavailable Unavailable Encounter Details Date Type Department Care Team Description 07/01/2018 Procedure Pass [id number] [place] [address] Social History Tobacco Use Types Packs/Day Years Used Date Former Smoker Cigars 2 20 Quit: 10/20/2011 Smokeless Tobacco: Never Used Alcohol Use Drinks/Week oz/Week Comments No Sex Assigned at Date Recorded Not on file as of this encounter Plan of Treatment Not on fileas of this encounter Visit Diagnoses Not on filein this encounter
--- OUTSIDE RECORDS SUMMARY | 2018-08-08 20:39 | XMS REPORT | Encounter Summary ---
Author Author [facility] Organization [facility] Address Unknown Phone Unavailable Care Team Providers Care Screw Supervisor Name Role Phone Damien Caceres MD Unavailable Melo Adame MD Unavailable Unavailable Alvarez Ozuna NP PCP Hilary Davenport RN Unavailable Unavailable Encounter Details Date Type Department Care Team Description 07/01/2018 Procedure Pass [id number] [place] [address] Social History Tobacco Use Types Packs/Day Years Used Date Former Smoker Cigars 2 20 Quit: 10/20/2011 Smokeless Tobacco: Never Used Alcohol Use Drinks/Week oz/Week Comments No Sex Assigned at Date Recorded Not on file as of this encounter Plan of Treatment Not on fileas of this encounter Visit Diagnoses Not on filein this encounter
--- OUTSIDE RECORDS SUMMARY | 2018-08-08 20:39 | XMS REPORT | Encounter Summary ---
Author Author [facility] Organization [facility] Address Unknown Phone Unavailable Care Team Providers Care Wood Carver Name Role Phone Damien Caceres MD Unavailable Melo Adame MD Unavailable Unavailable Alvarez Ozuna NP PCP Hilary Davenport RN Unavailable Unavailable Encounter Details Date Type Department Care Team Description 07/01/2018 Procedure Pass [id number] [place] [address] Social History Tobacco Use Types Packs/Day Years Used Date Former Smoker Cigars 2 20 Quit: 10/20/2011 Smokeless Tobacco: Never Used Alcohol Use Drinks/Week oz/Week Comments No Sex Assigned at Date Recorded Not on file as of this encounter Plan of Treatment Not on fileas of this encounter Visit Diagnoses Not on filein this encounter
[2018-08-08 20:54] LABS: BILIRUBIN,URINE NEGATIVE (NEGATIVE); CLARITY,URINE SLIGHTLY CLOUDY; COLOR,URINE YELLOW; GLUCOSE, URINE (UA) 4+ (NEGATIVE); KETONES,URINE NEGATIVE (NEGATIVE); LEUKOCYTE ESTERASE ,URINE 2+ (NEGATIVE); NITRITE,URINE NEGATIVE (NEGATIVE); PH,URINE 5 (5-9); PROTEIN,URINE 3+ (NEGATIVE); UROBILINOGEN,URINE NORMAL (NORMAL)
[2018-08-08 21:05] LABS: BACTERIA,URINE NEGATIVE /HPF; WBC,URINE 50-100 /HPF; YEAST,URINE LARGE /HPF
[2018-08-08] MEDS ORDERED: SULF1TAB35 PO (21:20)
--- NOTE | 2018-08-08 21:20 | ED GU-Male ---
General Chief Complaint: Catheter/Drain/Tube Problems Stated Complaint: BLOOD IN CATH BAG Source: patient Exam Limitations: no limitations History of Present Illness Date Seen by Provider: Aug 08, 2018 Time Seen by Provider: 20:30 Initial Comments Patient is a 58-year-old male who presents to the emergency room with complaints of blood in his urinary catheter bag. He reports that he stepped on his suprapubic catheter this morning and pulled on it causing mild pain and blood in his catheter bag. Arrival to the emergency room his tubing was clamped for a cleaner assistant collection and the urine did not have visible hematuria like that in the bag. His catheter bag was changed out with a new one and it did start to accumulate yellow/clear urine. He denies any pain at this time. Timing/Duration: this morning Associated Symptoms: other Allergies and Home Medications Allergies Coded Allergies: No Known Drug Allergies (Unverified , 06/29/18) Home Medications Atorvastatin Calcium 80 Mg Tablet, 40 MG PO HS, (Reported) TAKES 1/2 (80MG) TABLET Bupropion HCl 75 Mg Tablet, 75 MG PO BID, (Reported) Cefdinir 300 Mg Capsule, 300 MG PO BID Prescribed by: HATTIE BUSH on 07/30/182055 Cholecalciferol (Vitamin D3) 1,000 Unit Capsule, 1,000 UNIT PO DAILY, (Reported) Cyanocobalamin (Vitamin B-12) 1,000 Mcg Tablet, 2,000 MCG PO DAILY, (Reported) Duloxetine HCl 30 Mg Capsule.dr, 90 MG PO DAILY, (Reported) TAKES 3 (30MG) CAPSULES Ferrous Sulfate 324 Mg Tablet.dr, 324 MG PO TID, (Reported) Folic Acid 1 Mg Tablet, 1 MG PO DAILY, (Reported) Insulin Aspart 300 Units/3 Ml Solution, 25 UNITS SQ AC, (Reported) Insulin Determir 1,000 Units/10 Ml Soln, 25 UNITS SQ HS, (Reported) Levofloxacin 500 Mg Tablet, 500 MG PO DAILY, (Reported) Loperamide HCl 2 Mg Capsule, 2 MG PO UD PRN for DIARRHEA, (Reported) Metformin HCl 500 Mg Tablet, 500 MG PO BID, (Reported) Metoprolol Tartrate 50 Mg Tablet, 25 MG PO BID, (Reported) TAKES 1/2 (50MG) TABLETS Mirtazapine 15 Mg Tablet, 15 MG PO HS, (Reported) Nitrofurantoin Monohyd/M-Cryst 100 Mg Capsule, 1 TAB PO BID Prescribed by: ALISE AVELAR on 08/01/18850 Ondansetron 4 Mg Tab.rapdis, 4 MG SL Q4H PRN for NAUSEA/VOMITING-1ST LINE Prescribed by: ALISE AVELAR on 08/01/18850 Pantoprazole Sodium 20 Mg Tablet.dr, 20 MG PO BID, (Reported) Pregabalin 100 Mg Capsule, 100 MG PO TID, (Reported) Sulfamethoxazole/Trimethoprim 1 Each Tablet, 1 EACH PO BID Prescribed by: DAJUAN GREY on 08/08/182119 Urea 85 Gm Cream..g., TP BID PRN for DRY FEET, (Reported) Patient Home Medication List Home Medication List Reviewed: Yes Review of Systems Review of Systems Constitutional: see HPI; No chills, No fever Genitourinary: see HPI, other (suprapubic catheter tubing) All Other Systemes Reviewed Negative Unless Noted: Yes Past Ofktiym-Nwkgew-Seqjwe Hx Past Med/Social Hx: Reviewed Nursing Past Med/Soc Hx Patient Social History Type Used: Cigarettes Former Smoker, Quit: Oct 20, 2014 2nd Hand Smoke Exposure: No Recent Foreign Travel: No Contact w/Someone Who Travel: No Recent Hopitalizations: No Immunizations Up To Date Tetanus Booster (TDap): Less than 5yrs PED Vaccines UTD: No Date of Pneumonia Vaccine: Jul 17, 2015 Date of Influenza Vaccine: Jul 17, 2015 Seasonal Allergies Seasonal Allergies: No Past Medical History Surgeries: Yes (HEART CATH/ JAW SURGERY) Bladder Surgery, Cardiac, Prostatectomy Respiratory: No (fmr smkr) Currently Using CPAP: No Currently Using BIPAP: No Cardiac: Yes (heart cath) High Cholesterol, Hypertension Neurological: Yes Neuropathy, Stroke Reproductive Disorders: No Sexually Transmitted Disease: No HIV/AIDS: No Genitourinary: Yes Prostate Problems Gastrointestinal: Yes Chronic Diarrhea, C-Diff Musculoskeletal: Yes (CHRONIC NECK AND BACK PAIN ) Arthritis, Chronic Back Pain Endocrine: Yes Diabetes, Insulin dep Glaucoma Loss of Vision: Right Cancer: Yes Prostate What Type of Treatment Did You: Surgical Intervention Psychosocial: Yes Anxiety, Depression Integumentary: No Blood Disorders: No Adverse Reaction/Blood Tranf: No Family Medical History Reviewed Nursing Family Hx Family history: Hypertension 03 FATHER, Onset:40's - 50 03 MOTHER, Onset:40's - 50 History of - respiratory disease 03 MOTHER, Onset:50's - 60 Myocardial infarction 03 FATHER 03 MOTHER No Family History of: Abdominal aortic aneurysm Boo's disease Alcoholism Aphasia Cancer Cancer of colon Cataract Chest pain Congenital heart disease Congestive heart failure Cystic fibrosis Dementia Dysphagia Family history: Allergy Family history: Alzheimer's disease Family history: Arthritis Family history: Asthma Family history: Breast disease Family history: Cardiovascular disease Family history: Coronary thrombosis Family history: Diabetes mellitus Family history: Gastrointestinal disease Family history: Glaucoma Family history: Osteoporosis Family history: Thyroid disorder Headache Hearing loss Heart disease Hereditary disease History of - anemia History of - disorder History of drug abuse Human immunodeficiency virus (HIV) seropositivity Hypercholesterolemia Infertile Kidney disease Malignant neoplasm of lung Parkinson's disease Prostate cancer Psychotic disorder Seizure disorder Stroke Tuberculosis Visual impairment No Pertinent Family Hx, Heart Disease, Hypertension Physical Exam Vital Signs Vital Signs - First Documented 08/08/18 20:32 Temp 98.9 Pulse 89 Resp 16 B/P (MAP) 169/88 (115) Pulse Ox 98 O2 Delivery Room Air Capillary Refill : Height, Weight, BMI Height: 5'6.00" Weight: 149lbs. 5.0oz. [id number]; 23.5 BMI Method:Stated General Appearance: WD/WN, no apparent distress Cardiovascular: normal peripheral pulses, regular rate, rhythm, no edema, no gallop, no JVD, no murmur Respiratory: chest non-tender, lungs clear, normal breath sounds, no respiratory distress, no accessory muscle use Gastrointestinal: normal bowel sounds, non tender, soft, no organomegaly, no pulsatile mass, other (normal suprapubic catheter insertion site. No evedience of trauma. Cather is patent and draining clear/yellow urine.) Neurologic/Psychiatric: alert, normal mood/affect, oriented x 3 Skin: normal color, warm/dry Progress/Results/Core Measures Suspected Sepsis SIRS Temperature: Pulse: Respiratory Rate: Blood Pressure / Mean: Results/Orders Lab Results Laboratory Tests Test 08/08/18 20:23 08/08/18 20:46 Range/Units Lab Scanned Report Referred Lab Report [id number] Urine Color YELLOW Urine Clarity SLIGHTLY CLOUDY Urine pH 5 5-9 Urine Specific [place] 1.010 L 1.016-1.022 Urine Protein 3+ H NEGATIVE Urine Glucose (UA) 4+ H NEGATIVE Urine Ketones NEGATIVE NEGATIVE Urine Nitrite NEGATIVE NEGATIVE Urine Bilirubin NEGATIVE NEGATIVE Urine Urobilinogen NORMAL NORMAL MG/DL Urine Leukocyte Esterase 2+ H NEGATIVE Urine RBC (Auto) 4+ H NEGATIVE Urine RBC 10-25 H /HPF Urine WBC 50-100 H /HPF Urine Crystals NONE /LPF Urine Bacteria NEGATIVE /HPF Urine Casts NONE /LPF Urine Mucus NEGATIVE /LPF Urine Yeast LARGE H /HPF Urine Culture Indicated YES Micro Results Microbiology 08/08/18 Urine Culture - Final, Complete Pseudomonas aeruginosa My Orders Orders - DAJUAN GREY Ua Culture If Indicated (08/08/18 20:31) Urine Culture (08/08/18 20:46) Vital Signs/I&O 08/08/18 08/08/18 20:32 21:30 Temp 98.9 98.9 Pulse 89 84 Resp 16 16 B/P (MAP) 169/88 (115) 166/104 (124) Pulse Ox 98 98 O2 Delivery Room Air Room Air Capillary Refill : Departure Impression Primary Impression: Suprapubic catheter Additional Impression: Hematuria Disposition: 01 HOME, SELF-CARE Condition: Stable/Unchanged Departure-Patient Inst. Decision time for Depature: 21:18 Referrals: NO,LOCAL PHYSICIAN (PCP) Primary Care Physician LULU FLOWERS (Family) Primary Care Physician BARBARA LEMUS MD Patient Instructions: How to Care for Your Dawson Catheter, Male Add. Discharge Instructions: Take medication as directed. Try to leave the catheter securing device in place at all times. Keep your appointment as scheduled with Dr. Lemus on Friday. Return back to the emergency room for any worsening symptoms or concerns as needed. All discharge instructions reviewed with patient and/or family. Voiced understanding. Scripts Sulfamethoxazole/Trimethoprim (Bactrim Ds Tablet) 1 Each Tablet 1 EACH PO BID for 7 Days, #14 TAB Prov: DAJUAN GREY 08/08/18 DAJUAN GREY Aug 08, 2018 21:20
[2018-08-08 21:30] VITALS: BP 166/104
[2018-08-12] MEDS ORDERED: LEVO500T2 PO (08:21)
== END 2018-08-08 21:30 | disposition home or self-care (01) ==
LOC: EDUNIT# 20:22 → ER 20:23
DX: T83.83XA Hemorrhage due to genitourinary prosthetic devices, implants and grafts, initial encounter (principal); R31.9 Hematuria, unspecified; E78.00 Pure hypercholesterolemia, unspecified; I10 Essential (primary) hypertension; E11.42 Type 2 diabetes mellitus with diabetic polyneuropathy; F41.9 Anxiety disorder, unspecified; F32.9 Major depressive disorder, single episode, unspecified; Z85.46 Personal history of malignant neoplasm of prostate; Z82.49 Family history of ischemic heart disease and other diseases of the circulatory system; Z87.19 Personal history of other diseases of the digestive system; Z86.73 Personal history of transient ischemic attack (TIA), and cerebral infarction without residual deficits; Z79.4 Long term (current) use of insulin; Z87.891 Personal history of nicotine dependence; Z90.79 Acquired absence of other genital organ(s)
CPT/HCPCS: 81000; 87077; 87088; 87186; 99283

== ENCOUNTER 2018-08-22 17:50 | Emergency (ER) | payer MEDICARE ==
[~2018-08-22] VITALS: Ht 167.6 cm; Wt 60.9 kg
[~2018-08-22 17:50] MED LIST changes: +DEXT-319 PO; +LEVO500T2 PO; +METR-197 PO; -METR500T21 PO; +SULF1TAB35 PO; -[UNRECOGNIZED DRUG - CODE] PO
--- OUTSIDE RECORDS SUMMARY | 2018-08-22 17:57 | XMS REPORT | Clinical Summary ---
Author Author [facility] Organization [facility] Address Unknown Phone Unavailable Care Team Providers Care Industrial Service Technician Name Role Phone Damien Caceres MD Unavailable Melo Adame MD Unavailable Unavailable Lulu Ozuna NP PCP Hilary Davenport RN Unavailable Unavailable Source Comments Some departments are not documenting in the electronic medical record. If you do not see the information that you expected, contact Release of Information in the Health Information Management department at [phone] for further assistance in locating additional records.[facility] Allergies No Known Allergies Current [...] Problem Noted Date Diabetic ketoacidosis without coma ([facility]) 07/13/2018 Acute blood loss anemia 07/13/2018 Leukocytosis 07/13/2018 Normocytic anemia 07/13/2018 Overweight (BMI 25.0-29.9) 07/13/2018 Urinary retention 07/13/2018 Anemia of chronic disease 07/03/2018 Agitation 07/03/2018 Stroke ([facility]) 07/01/2018 Overview: R M1 occlusion, successful thrombectomy on 07/01/18 (TICI 3) HTN (hypertension) 01/15/2016 Urinary retention with incomplete bladder emptying 01/15/2016 Diabetes ([facility]) 01/15/2016 Proliferative diabetic retinopathy(362.02) 01/14/2013 Last Assessment [...] Problem Noted Date Resolved Date Sepsis ([facility]) 01/15/2016 01/17/2016 Severe sepsis ([facility]) 01/15/2016 01/17/2016 LATISHA (acute kidney injury) ([facility]) 01/15/2016 01/17/2016 High anion gap metabolic acidosis 01/15/2016 01/17/2016 Encounters Date Type Specialty Care Team Description 07/08/2018 Anesthesia Hannah Arias, PUMP HOUSE TECHNICIAN Event 07/08/2018 Procedure Pass 07/08/2018 Surgery Huang Carolina MD ESOPHAGOGASTRODUODENOSCOP Y 07/01/2018 Hospital Diego Gutierrez MD Stroke ([facility]) - Encounter Shanna Ward MD 07/09/2018 Veronica [...] 07/08/2028 07/08/2018 SCREENING Implants Implanted Type Area Public Health Director Device Expiration Model / Identifier Date Serial / Lot Device Closure 70cm 8fr .038in Right: TERUMO:TERUMO 02/16/2019 [id number] / Angio-Seal Vip [employer]-Plus - Sn/A Femoral MED N/A / Implanted: Qty: 1 on 07/01/2018 by Artery [id number] Lulu Perry MD Procedures Procedure Name Priority [...] Address City/State/Zipcode Phone Number MAIN LAB [address] [place] [address] * CBC AND DIFF (07/09/2018 5:47 AM) [...] City/State/Zipcode Phone Number [facility] [address] [place] [address] * COMPREHENSIVE METABOLIC PANEL (07/09/2018 5:47 AM) [...] for questions. Specimen Blood Performing Organization Address City/[facility]/Zipcode Phone Number [facility] [address] [place] [address] * CULTURE-BLOOD W/SENSITIVITY (07/08/2018 10:25 PM) Only the most recent of 4 results within the time period is included. Battery Name BLOOD CULTURE [facility] Specimen Description BLOOD MAIN LAB LEFT HAND Special Requests NONE MAIN LAB Culture NO GROWTH 5 DAYS MAIN LAB Report Status FINAL [facility] 07/14/2018 Specimen Blood Performing Organization Address City/[facility]/[place] Phone Number [facility] [address] [place] [address] * SURGICAL PATHOLOGY (07/08/2018 4:34 PM) PATHOLOGY REPORT [facility] [email or web address] Department of Pathology and Laboratory Medicine [address] [place] [address] Surgical Pathology Office:[phone] [phone] SURGICAL PATHOLOGY REPORT NAME: VALDEZ ANTHONY SURG PATH #: [id number] MR #: [id number] SPECIMEN CLASS: SR BILLING #: [id number] ALT ID #:LOCATION: DISCHARGED DATE OF PROCEDURE: [...] results within the time period is included. UA Reflex Culture LAB LABEL [facility] MAIN [facility] Specimen Urine Performing Organization Address [facility]/[place] Phone Number [facility]IN [facility] [address] [place] [address] * URINALYSIS MICROSCOPIC REFLEX TO CULTURE (07/08/2018 [...] Specimen Urine Performing Organization Address [facility] Phone Number [facility] [address] [place] [address] * URINALYSIS DIPSTICK REFLEX TO CULTURE (07/08/2018 4:09 PM) Only the most recent of 3 results within the time period is included. Color,UA STRAW [facility] Turbidity,UA CLEAR CLEAR-CLEAR [facility] Specific [place]-Urine 1.005 1.003 - 1.035 [facility] MAIN LAB [...] Specimen Urine Performing Organization Address [facility]/[place] Phone Number [facility] [address] [place] [address] * CHEST SINGLE VIEW (07/08/2018 2:15 PM) [...] RESULTS Procedure Date: 07/08/2018 10:48 AM CSN: [id number] Date of : 1960 Gender: Male Attending Physician: Huang Carolina MD Procedure: Upper GI endoscopy Indications: Anemia (Mixed picture of anemia of chronic disease + Iron deficiency anemia), new onset of Afib and not on AC. Providers: Huang Carolina MD (Doctor), Roberto Dutta MD (Fellow), Alvaro Banegas (Nurse), Minna Jiménez RN (Nurse), Abisai Burden, Hotel Recreational Facilities Manager (Hotel Recreational Facilities Manager) Referring Physician: Referral Self Medications: Monitored Anesthesia [...] 55 seconds Procedure Code(s): --- Professional --- 99291, Esophagogastroduodenoscopy, flexible, transoral; with biopsy, single or multiple Diagnosis Code(s): --- Professional --- K44.9, Diaphragmatic hernia without obstruction or gangrene K31.89, Other diseases of stomach and duodenum D50.0, Iron deficiency anemia secondary to blood loss (chronic) CPT copyright 2016 [employer]. All rights reserved. The codes documented in this report are preliminary and upon sales center manager review may be revised to meet current [...] RESULTS Procedure Date: 07/08/2018 10:47 AM CSN: [id number] Date of : 1960 Gender: Male Attending Physician: Huang Carolina MD Procedure: Colonoscop y Indications: Anemia (Mixed picture of anemia of chronic disease + Iron deficiency anemia), new onset of Afib and not on AC. Providers: Huang Carolina MD (Doctor), Roberto Dutta MD (Fellow), Alvaro Banegas (Nurse), Minna Jiménez RN (Nurse), Abisai Burden, Hotel Recreational Facilities Manager (Hotel Recreational Facilities Manager) Referring Physician: Gerard Salazar MD Medications: Monitored [...] 15 seconds Procedure Code(s): --- Professional --- 48399, Colonoscopy, flexible; diagnostic, including collection of specimen(s) by brushing or washing, when performed (separate procedure) Diagnosis Code(s): --- Professional --- D50.0, Iron deficiency anemia secondary to blood loss (chronic) CPT copyright 2016 [employer]. All rights reserved. The codes documented in this report are preliminary and upon sales center manager review may be revised to meet current compliance requirements. Attending Participation: I was present and participated during the entire procedure, including non-jacobs portions. MD Huang De Oliveira MD 07/08/2018 1:28:26 PM The attending physician has electronically signed and finalized this document. Roberto Dutta MD Number of Addenda: 0 Note Initiated On: 07/08/2018 10:47 AM Performing Organization Address [facility]/[place] Phone Number JUDIE OTHER RESULTS * PROCALCITONIN (07/08/2018 5:53 AM) Procalcitonin 0.13 (H) <0.10 NG/ML MAIN LAB Performing Organization Address [facility]/[place] Phone Number MAIN LAB [address] [place] [address] * HEMOGLOBIN (07/07/2018 5:45 AM) Only the most recent of 10 results within the time period is included. Hemoglobin 9.5 (L) 13.5 - 16.5 GM/DL MAIN LAB Comment: Corrected on 07/09 AT 1021: previously reported as DUPLICATE ORDER, Corrected on 07/07 AT 0811: previously reported as 9.5 Specimen Blood Performing Organization Address [facility] Phone Number MAIN LAB [address] [place] [address] * OCCULT BLOOD NON COLON CANCER SCREEN (07/06/2018 10:45 PM) Battery Name OCCULT BLOOD SCREEN MAIN LAB Specimen Description FECES MAIN LAB Special Requests NONE MAIN LAB Occult Blood NEGATIVE [facility] Report Status FINAL MAIN LAB 07/06/2018 Specimen Stool - Feces Performing Organization Address [facility] Phone Number MAIN LAB [address] [place] [address] * CBC (07/06/2018 4:27 AM) Only the [...] LAB MPV 8.6 7 - 11 FL [facility] Specimen Blood Performing Organization Address City/[facility]/Zipcode Phone Number [facility] [address] [place] [address] * BASIC METABOLIC PANEL (07/06/2018 4:27 AM) Only the most recent of 5 results within the time period is included. Sodium 138 137 - 147 MMOL/L MAIN LAB Potassium 3.8 3.5 - 5.1 MMOL/L MAIN LAB Chloride 103 98 - 110 MMOL/L [facility] CO2 26 21 - 30 MMOL/L MAIN LAB Anion Gap 9 3 - 12 MAIN LAB Glucose 146 (H) 70 - 100 MG/DL MAIN LAB Blood Urea Nitrogen 9 7 - 25 MG/DL MAIN LAB Creatinine 1.18 0.4 - 1.24 MG/DL [facility] Calcium 8.5 8.5 - 10.6 MG/DL MAIN LAB eGFR Non >60 >60 mL/min MAIN LAB Comment: The eGFR is not validated for use in drug dosing adjustments.Continue to use estimated creatinine clearance per dosing reference text.Please contact the Clinical Pharmacist for questions. eGFR >60 >60 mL/min [facility] Comment: The eGFR is not validated for use in drug dosing adjustments.Continue to use estimated creatinine clearance per dosing reference text.Please contact the Clinical Pharmacist for questions. Specimen Blood Performing Organization Address City/[facility]/Zipcode Phone Number [facility] [address] [place] [address] * CULTURE-URINE W/SENSITIVITY (07/05/2018 6:45 PM) Battery Name URINE CULTURE MAIN LAB Specimen Description URINE MAIN LAB Special Requests NONE [facility] MAIN [facility] Culture NO GROWTH [facility] MA[facility] Report Status FINAL MAIN LAB 07/06/2018 Specimen Urine Performing Organization Address City/State/Zipcode Phone Number MAIN LAB [address] [place] [address] * ABDOMEN AP ONLY (07/05/2018 9:20 AM) [...] City/State/Zipcode Phone Number [facility] RAD RESULTS * IRON + BINDING CAPACITY + %SAT+ FERRITIN (07/04/2018 2:20 PM) Iron 49 (L) 50 - 185 MCG/DL [facility] MAIN LAB Iron Binding-TIBC 212 (L) 270 - 380 MCG/DL [facility]IN [facility] % Saturation 23 (L) 28 - 42 % [facility] MAIN [facility] Ferritin 383 (H) 30 - 300 NG/ML [facility]IN [facility] Specimen Blood Performing Organization Address City/[facility]/Zipcode Phone Number MAIN LAB [address] [place] [address] * BLOOD TYPE CONFIRMATION - ORDER ONLY IF REQUESTED BY LAB (07/04/2018 12:13 AM) ABO/RH(D) O NEG MAIN LAB Specimen Blood Performing Organization Address [facility]/[place] Phone Number MAIN LAB [address] [place] [address] * TYPE & CROSSMATCH (07/03/2018 11:48 PM) Units Ordered 1 MAIN LAB Crossmatch Expires 07/06/2018 MAIN LAB Record Check 2ND TYPE REQUIRED MAIN LAB ABO/RH(D) O NEG MAIN LAB Antibody Screen NEG MAIN LAB Electronic Crossmatch YES [facility] MAIN [facility] Unit Number [id number] MAIN LAB Blood Component Type RBC,CPDA,LEUKO REDUCED MAIN LAB Unit Division 0 MAIN LAB Status OF Unit TRANSFUSED MAIN LAB Transfusion Status OK TO TRANSFUSE MAIN LAB Crossmatch Result COMPATIBLE,ELECTRONIC MAIN LAB Specimen Blood Performing Organization Address [facility] Phone Number MAIN LAB [address] [place] [address] * SWALLOW MOTION SERIES (07/03/2018 8:59 AM) [...] on 07/03/2018 9:08 AM. Performing Organization Address City/[facility]/[place] Phone Number RAD RESULTS * ECG-SCAN (07/03/2018 7:35 AM) Narrative Performed At Ordered by an unspecified provider. * PHOSPHORUS (07/02/2018 4:15 AM) Only the most recent of 2 results within the time period is included. Phosphorus 2.6 2.0 - 4.0 MG/DL MAIN LAB Specimen Blood Performing Organization Address City/[facility]/Zipcode Phone Number MAIN LAB [address] [place] [address] * MAGNESIUM (07/02/2018 4:15 AM) Only the most recent of 2 results within the time period is included. Magnesium 1.9 1.6 - 2.6 mg/dL [facility] MAIN [facility] Specimen Blood Performing Organization Address City/[facility]/Zipcode Phone Number [facility] MAIN LAB [address] [place] [address] * IONIZED CALCIUM (07/02/2018 4:15 AM) Only the most recent of 2 results within the time period is included. Ionized Calcium 1.14 1.0 - 1.3 MMOL/L [facility] MAIN [facility] Specimen Blood Performing Organization Address City/[facility]/[place] Phone Number [facility] MAIN LAB [address] [place] [address] * MRI HEAD WO CONTRAST (07/01/2018 9:10 [...] the posterior medial left temporal lobe. 3. Latter-Day of flow void within the right M1 [...] changes. Major vascular flow voids of the [place] and dural venous sinuses are preserved. There is catholic of flow void in the right M1 [...] changes. Major vascular flow voids of the [place] and dural venous sinuses are preserved. There is catholic of flow void in the right M1 [...] the posterior medial left temporal lobe. 3. Latter-Day of flow void within the right M1 [...] 95 - 99 % [facility] MAIN LAB Ciumtiplwgx-NPD-Rua 20.6 (L) 21 - 28 MMOL/L [facility] MAIN [facility] Specimen Blood, arterial - Blood Performing Organization Address City/State/Zipcode Phone Number MAIN LAB [address] [place] [address] * CT HEAD WO CONTRAST (07/01/2018 2:46 [...] 72.37 % OTHER OUTSIDE LAB AV index (lower elwha) 0.56 OTHER OUTSIDE LAB E/A ratio 1.35 OTHER OUTSIDE LAB E/E' ratio 10.67 OTHER OUTSIDE LAB CV ECHO PV MARINE ELECTRONICS TECHNICIAN MAXINE Cooley OTHER OUTSIDE LAB LV mass 118.49 96 - 200 g OTHER OUTSIDE LAB RWT 0.36 <=0.42 OTHER OUTSIDE LAB TV rest pulmonary artery 22 mmHg OTHER OUTSIDE LAB pressure Right Heart Systolic TDI 0.110 m/s OTHER OUTSIDE LAB S' Cardiology Ultrasound Siemens [id number] OTHER OUTSIDE LAB Machine ECHO EF 60 [...] study available for comparison Performing Organization Address [facility] Phone Number OTHER OUTSIDE LAB * BETA HYDROXYBUTYRATE (KETONES) (07/01/2018 12:50 PM) Beta Hydroxybutyrate 0.1 <0.3 MMOL/L [facility] MAIN [facility] Comment: Beta hydroxybutyrate (BOHB) is the most abundant ketone (78%), followed by acetoacetate (20%) and acetone (2%).Measurement BOHB is recommended to assess ketones in DKA. Expected BOHB Results for DKA: Initial presentation high/increasing During treatment decreasing Resolved decreasing/normal Performing Organization Address [facility] Phone Number [facility] [address] [place] [address] * LACTIC ACID (BG - RAPID LACTATE) (07/01/2018 12:50 PM) Lactic Acid,BG 1.5 0.5 - 2.0 MMOL/L [facility] MAIN [facility] Specimen Blood Performing Organization Address [facility]/[place] Phone Number [facility]IN [facility] [address] [place] [address] * LACTIC ACID(LACTATE) (07/01/2018 12:50 PM) Lactic Acid 1.5 0.5 - 2.0 MMOL/L [facility]IN [facility] Performing Organization Address [facility]/Zipcode Phone Number [facility]IN [facility] [address] [place] [address] * HEMOGLOBIN A1C (07/01/2018 12:50 PM) Hemoglobin A1C 17.4 (H) 4.0 - 6.0 % [facility]IN [facility] Comment: The ADA recommends that most patients with type 1 and type 2 diabetes maintain an A1c level <7%. Specimen Blood Performing Organization Address [facility]/[place] Phone Number MAIN LAB [address] [place] [phone] * LIPID PROFILE (07/01/2018 12:50 PM) Cholesterol [...] Blood Performing Organization Address [facility]/[place] Phone Number MAIN LAB [address] [place] [phone] * IR ARTERIOGRAM NEURO (07/01/2018 12:29 PM) [...] Fentanyl 25 mcg Contrast - 100 cc [id number] Total mGy - 421 Anesthesia:conscious sedation Consent [...] the sheath was advanced over a 5 [place] 125 cm Vert catheter over a 180 cm 0.035 [place] wire over the aortic arch and into [...] therefore, hemostasis was achieved using an 8 [place] Angioseal closure device followed by manual pressure [...] Fentanyl 25 mcg Contrast - 100 cc [id number] Total mGy - 421 Anesthesia: conscious sedation [...] the sheath was advanced over a 5 [place] 125 cm Vert catheter over a 180 cm 0.035 [place] wire over the aortic arch and into [...] therefore, hemostasis was achieved using an 8 [place] Angioseal closure device followed by manual pressure [...] teamat 11:51 AM on 07/01/2018 by the radiology rn in consultation with TALIA BOSTON M.D.. Approved [...] at 11:51 AM on 07/01 by the radiology rn in consultation with TALAI BOSTON M.D.. Approved by Miesha Maldonado M.D. [...] teamat 11:51 AM on 07/01/2018 by the radiology rn in consultation with TALIA BOSTON M.D.. Approved [...] at 11:51 AM on 07/01 by the radiology rn in consultation with TALIA BOSTON M.D.. Approved [...] teamat 11:51 AM on 07/01/2018 by the radiology rn in consultation with TALIA BOSTON M.D.. Approved [...] at 11:51 AM on 07/01 by the radiology rn in consultation with TALIA BOSTON M.D.. Approved [...]
--- OUTSIDE RECORDS SUMMARY | 2018-08-22 18:02 | XMS REPORT | Encounter Summary ---
Author Author [facility] Organization [facility] Address Unknown Phone Unavailable Care Team Providers Care Veneer Jointer Operator Name Role Phone Damien Caceres MD Unavailable Meol Adame MD Unavailable Unavailable Alvarez Ozuna NP PCP Hilary Davenport RN Unavailable Unavailable Reason for Visit * Auth/Cert Status Reason Specialty Diagnoses / Referred By Referred To Procedures Contact Contact Diagnoses Stroke (HCC) Stroke Encounter Details Date Type Department Care Team Description 07/08/2018 Anesthesia Gastrointenstinal Hannah Arias CRNA Event Endoscopy [address] [place] [address] [place] [address] [phone] Anesthesia Record Procedure Name Responsible Anesthesia Start [...] RT; Eye; Surgical Incision 05/11/14 0000 by [place], (NOT for MAXINE Kim Pressure Injuries) Indwelling [...] Sidorenko, Elena, MD Post-Anesthesia Vitals BP: 170/71 (07/085) Pulse: 71 (07/08 1355) SpO2: 99 % (07/08 1355) SpO2 Pulse: 70 (07/08 1355) Post Anesthesia Evaluation Note Evaluation location: Pre/Post [...] due to out of window), transferred to [facility] and found to have R [...] Consent: consented Plan discussed with: anesthesiologist and PLATE DRYING MACHINE TENDER. Comments: (Patient not participating in health history/consent. [...] Bag 12:06 CDT 07/08/18 at 1206, Until Fri07/08/18 at 1302, Anesthesia Intra-op lidocaine (PF) injection [...]
--- OUTSIDE RECORDS SUMMARY | 2018-08-22 18:02 | XMS REPORT | Encounter Summary ---
Author Author [facility] Organization [facility] Address Unknown Phone Unavailable Care Team Providers Care Private Eye Name Role Phone Damien Caceres MD Unavailable Melo Adame MD Unavailable Unavailable Lulu Ozuna NP PCP Hilary Davenport RN Unavailable Unavailable Reason for Referral * Consult, Test & Treat (Routine) Status Reason Specialty Diagnoses / Referred By Referred To Procedures Contact Contact Closed Specialty Gastroenterology Diagnoses Keyshawn Gomez [facility] Gastrointestinal J, Ortho and Medical Required hemorrhage with [address] [place], [place] [phone] Phone: Fax: Reason for Visit * Auth/Cert Status Reason Specialty Diagnoses / Referred By Referred To Procedures Contact Contact Diagnoses Stroke (HCC) Stroke Encounter Details Date Type Department Care Team Description 07/01/2018 Hospital MO6 Diego Gutierrez MD Stroke (HCC) - Encounter [address] 07/09/2018 [place] [id number] Shanna Rocha MD [id number] Veronica Buchanan MD [address] [place] [address] Keyshawn Hinton MD [address] [place] [address] Social History Tobacco Use Types [...] s/p suprapubic catheter that was admitted at [facility] for urosepsis, DKA, A fib with RVR requiring cardizem ggt that was transferred for concerns for stroke. Admitted on 06/28 to [facility] with week history of cough, SOB. Found to have UTI with urosepsis and DKA with CO2 of 8, BG in 600s. Admitted to the ICU at [facility]. Started on CTX and Insulin [...] language) 2=neither correct 2 1c. 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, garnett machine operator and release non-paretic hand (other 1 [...] tPA given unclear window. Was transferred to [facility] for evaluation. Was given ativan 2mg [...] stroke on 07/15. ECHO showed no thrombus. REHABILITATION MEDICINE PHYSICIAN was following and pt graduated to regular [...] hospital course Consults: Cardiology, Endocrinology, GI and PT/OT/REHABILITATION MEDICINE PHYSICIAN, rehab, urology Patient Disposition: Penitentiary Facility Patient instructions/medications: AMB REFERRAL TO GASTROENTEROLOGY [...] home, please feel free to contact the Stacker Straightener at [phone]. Your last blood pressure was BP: 171/73, [...] Report These Signs and Symptoms STROKE Call [phone] for the following symptoms: *Sudden numbness or weakness of the face, arm or leg, especially on one side of the body. *Sudden confusion, trouble speaking or understanding. *Sudden trouble seeing in one or both eyes. *Sudden trouble walking, dizziness, loss of balance or coordination. *Sudden, severe headache with no known cause. Return Appointment For Neurology scheduling contact [phone] For Neurosurgery appointments call [phone] Questions About Your Stay STANDARD For questions or concerns regarding your hospital stay: -DURING BUSINESS HOURS (8:00 AM - 4:30 PM): Call [phone] and ask to be transferred to your discharge attending physician. -AFTER BUSINESS HOURS (4:30 PM - 8:00 AM, on weekends, or holidays): Call [phone] and ask the bleach plant operator to page the on-call doctor for the discharge attending physician. Discharging attending physician: KEYSHAWN GOMEZ [[id number]] Complete if patient is going to a Penitentiary Facility I certify that the patient requires skilled care Yes The patient's stay is expected to be less than 30 days Yes I will be in charge of patient in skilled nursing No Cardiac Diet Limiting unhealthy fats and [...] home, you can call a dietitian at [phone]. Modified Liquids Your fluids should be thickened to a consistency of nectar. This is as thick as a milkshake or tomato juice. If you have questions about your diet after you go home, you can call a dietitian at [phone]. Current Discharge Medication List START taking these [...] MD [facility] ([facility]) [facility] [address] [place] [phone] Additional appointment instructions: Please follow up with your PCP for repeat labs, monitoring your blood pressure, and monitoring your blood glucose Please follow up with the enamel cracker at [facility] for follow up visit. Please [...] blood glucose Please follow up with the enamel cracker at [facility] for follow up visit. Please [...] - 07/09/2018 2:57 PM CDT Phoned [facility] [phone] and gave report to Perla GOODMAN to receive patient. Informed her that patient to transport at 13:00. By 15:00 no transport arrived, phoned facility above and it was reported that ride was on the way. FSBS=69 checked prior to transport. Reported to calibration laboratory technician for Neurology, juice x 2 given FSBS rechecked=87. Patient left unit via wheelchair and tanker driver who was given chart for transport. [...] Range Color,UA STRAW Turbidity,UA CLEAR CLEAR-CLEAR Specific Start-Urine 1.005 1.003 - 1.035 pH,UA 8.0 5.0 [...] 0547) POC Glucose (Download): (!) 136 (07/09/18 8671) Radiology and other Diagnostics Review: Pertinent radiology [...] DKA resolved -A1c 17.4 on 07/01/2018 uncontrolled -MANAGER FILE regimen: levemir 40 units QHS, Novolog 20-25 [...] up with local endocrinology in [facility] Subjective Valdez Anthony is a [...] Range Color,UA STRAW Turbidity,UA CLEAR CLEAR-CLEAR Specific Start-Urine 1.005 1.003 - 1.035 pH,UA 8.0 5.0 [...] Diagnostics Review: none Barbi Deluna MD P [phone] * Tata Daniels, RD - 07/09/2018 12:54 PM CDT CLINICAL NUTRITION Clinical Nutrition Follow-Up Summary NAME:Valdez Anthony :1960 AGE: 57 y.o. ADMISSION DATE: 07/01/2018 DAYS ADMITTED: LOS: 8 days Nutrition Assessment of Patient: Malnutrition Assessment: Does not meet criteria Current Oral Intake: Improving, Marginally Adequate Estimated Calorie Needs: 8517-2555 (25-28 kcal/kg desired wt) Estimated Protein Needs: 85-100 (1.2-1.4 g/kg desired wt) Oral Diet Order: Diabetic 2128-9151 Kcal/day (60 g Carb/meal, 30 g Carb/HS snack ), [place] Thick Liquids Comments: 57 y.o. male with new onset Atrial Fibrillation with RVR, HTN, HLD, T2DM, Diabetic Retinopathy, OD Blindness, Neovascular Glaucoma, Prostate Cancer s/p prostatectomy, Urinary Retention s/p suprapubic catheter that was admitted at [facility] for urosepsis, DKA, A fib with [...] and underwent via video- swallow eval with REHABILITATION MEDICINE PHYSICIAN findings of moderate oropharyngeal dysphagia and baseline cognitive deficits. REHABILITATION MEDICINE PHYSICIAN working with pt and diet has advanced from nectar thick full liquids to 60g/meal consistent carb diet with nectar thick fluids. Per had 100% omelet for breakfast today (refused per RN) and sandwich ordered by for lunch. No current wt to assess; unable to actually see pt today as he was bundled in his blankets. Pt has orders for no sugar added [place] breakfast with nectar thick milk at breakfast and per RN throughout day as needed. Followed up with call center who says orders not printing to meal ticket. denies need for diet education Recommendation: Encourage good meal intakes at least 3 times per day with adequate protein source each meal on 60g/meal consistne carb diet. Offer no sugar added [place] Breakfast shakes made with nectar thick milk at breakfast and PRN. Intervention / Plan: Monitor po intake tolerance and adequacy monitor wt trends, labs, meds and GI status Nutrition Diagnosis: Altered GI function Etiology: swallowing and cognitive deficits Signs & Symptoms: REHABILITATION MEDICINE PHYSICIAN findings and nectar thick liquids with diabetic diet Goals: Patient to consume >75% of meals/supplements Time Frame: Within 72 Hours Status: Met Patient to consume >85% of meals/supplements Time Frame: Throughout Stay Tata Daniels, MS,RD, LD, [facility] *[id number] * James Shook, DO - [...] prostate cancer s/p prostatectomy who presents to [facility] as a transfer from [facility] for stroke. OSH course: Pt [...] tPA given unclear window. Was transferred to [facility] for evaluation. Was given ativan 2mg [...] EF, LA size 3.5cm, no thrombus - REHABILITATION MEDICINE PHYSICIAN following -> recommend regular diet w/ nectar [...] to f/u w/ endo @ [facility] outpt basis -> goal BS [...] -> develop stroke and was transferred to [facility] - Was placed on PO cardizem [...] discharge today to [facility] @ 1300 Patient was seen [...] Range Color,UA STRAW Turbidity,UA CLEAR CLEAR-CLEAR Specific Start-Urine 1.005 1.003 - 1.035 pH,UA 8.0 5.0 [...] prostate cancer s/p prostatectomy who presents to [facility] as a transfer from [facility] for stroke. OSH course: Pt [...] tPA given unclear window. Was transferred to [facility] for evaluation. Was given ativan 2mg [...] EF, LA size 3.5cm, no thrombus - REHABILITATION MEDICINE PHYSICIAN following -> recommend regular diet w/ nectar [...] to f/u w/ endo @ [facility] outpt basis -> goal BS [...] -> develop stroke and was transferred to [facility] - Was placed on PO cardizem [...] fluids, replace lytes PRN, ada diet Ppx: [id number] Heparin Sq Q8, SCDs Code: Full Dispo: [...] (07/08/18 0553) POC Glucose (Download): 75 (07/08/18 7923) Radiology and Other Diagnostics Review: Pertinent radiology [...] pathology results. Roberto Dutta GI fellow Pager [phone] 07/08/2018 3:39 PM * Eloy Higgins RN [...] After 5:00 pm, holidays or weekends call [phone] and ask for the GI Doctor calibration laboratory technician. * Barbi Deluna MD - 07/08/2018 12:10 [...] DKA resolved -A1c 17.4 on 07/01/2018 uncontrolled -MANAGER FILE regimen: levemir 40 units QHS, Novolog 20-25 [...] up with local endocrinology in [facility] Subjective Valdez Anthony is a [...] 1141) Temp: 36.9 C (98.4 F) (07/08 114) [...] s/p suprapubic catheter that was admitted at [facility] for urosepsis, DKA, A fib with [...] PROGRESS NOTE Patient Name: Valdez Anthony Room/Bed: XC5911/01 Admitting Diagnosis: Stroke Past Medical History: Diagnosis [...] occasionally in community. Prior Function Level Of Speculator: Independent with ADLs and functional transfers Lives [...] Bed mobility, Ambulation, Stairs Therapist: ERIC Whalen/Cesia [id number] Date: 07/08/2018 * Whit Guadarrama MS,CCC-REHABILITATION MEDICINE PHYSICIAN - 07/08/2018 9:38 AM CDT SPEECH-LANGUAGE PATHOLOGY NO TREATMENT NOTE Chart reviewed and discussed in interdisciplinary rounds. Pt NPO for colonoscopy this date. REHABILITATION MEDICINE PHYSICIAN will continue to follow. Therapist: Whit Guadarrama MS,CCC-REHABILITATION MEDICINE PHYSICIAN [id number] Date: 07/08/2018 * Barbi Deluna MD - [...] DKA resolved -A1c 17.4 on 07/01/2018 uncontrolled -MANAGER FILE regimen: levemir 40 units QHS, Novolog 20-25 [...] up with local endocrinology in [facility] Subjective Valdez Anthony is a [...] prostate cancer s/p prostatectomy who presents to [facility] as a transfer from [facility] for stroke. OSH course: Pt [...] tPA given unclear window. Was transferred to [facility] for evaluation. Was given ativan 2mg [...] EF, LA size 3.5cm, no thrombus - REHABILITATION MEDICINE PHYSICIAN following -> recommend regular diet w/ nectar [...] to f/u w/ endo @ [facility] outpt basis -> goal BS [...] -> develop stroke and was transferred to [facility] - Was placed on PO cardizem [...] clear liquid/ada diet for procedure tomorrow Ppx: [id number] Heparin Sq Q8, SCDs Code: Full Dispo: [...] provide intervention as indicated. Irma Blakely OTR/L [id number] * Whit Guadarrama, ,CCC-REHABILITATION MEDICINE PHYSICIAN - 07/07/2018 9:50 AM CDT SPEECH-LANGUAGE PATHOLOGY NO TREATMENT NOTE Chart reviewed and discussed in interdisciplinary rounds. Pt NPO for colonoscopy this date. REHABILITATION MEDICINE PHYSICIAN will continue to follow. Therapist: Whit Guadarrama MS,[facility]-REHABILITATION MEDICINE PHYSICIAN [id number] Date: 07/07/2018 * Shira Welch RN - [...] DKA resolved -A1c 17.4 on 07/01/2018 uncontrolled -MANAGER FILE regimen: levemir 40 units QHS, Novolog 20-25 [...] up with local endocrinology in [facility] Subjective Valdez Anthony is a [...] Color,UA YELLOW Turbidity,UA 2+ (A) CLEAR-CLEAR Specific Start-Urine 1.017 1.003 - 1.035 pH,UA 5.0 5.0 [...] prostate cancer s/p prostatectomy who presents to [facility] as a transfer from [facility] for stroke. OSH course: Pt [...] tPA given unclear window. Was transferred to [facility] for evaluation. Was given ativan 2mg [...] EF, LA size 3.5cm, no thrombus - REHABILITATION MEDICINE PHYSICIAN following -> recommend regular diet w/ nectar [...] to f/u w/ endo @ [facility] outpt basis -> goal BS [...] fluids, replace lytes PRN, ADA diet Ppx: [id number] Heparin Sq Q8, SCDs Code: Full Dispo: [...] asked these questions and provided answers by REHABILITATION MEDICINE PHYSICIAN) Speech: slurred speech w/ comprehension intact to [...] Color,UA YELLOW Turbidity,UA 2+ (A) CLEAR-CLEAR Specific Start-Urine 1.017 1.003 - 1.035 pH,UA 5.0 5.0 [...] due to out of window), transferred to [facility] and found to have R M1 [...] established Keyshawn Gomez MD * Whit Guadarrama MS,CCC-REHABILITATION MEDICINE PHYSICIAN - 07/06/2018 12:14 PM CDT Formatting of this note may be different from the original. SPEECH-LANGUAGE PATHOLOGY COGNITIVE-COMMUNICATION ASSESSMENT EVALUATION SUMMARY Pt seen for cognitive communication evaluation utilizing the [place] Cognitive Assessment (MOCA) as well as other [...] address dysphagia and cognitive communication concerns. Ongoing REHABILITATION MEDICINE PHYSICIAN at next level of care. Consistent supervision [...] city, stating we are located at [facility]. Verbal Problem Solving Comments: Functional problem solving: [...] baseline to call for assistance if needed. [place] Cognitive Assessment (MoCA), Version 7.1 Subtest / [...] suprapubic catheter that was admitted at [facility] for urosepsis, DKA, A fib with [...] the posterior medial left temporal lobe. 3. Nondenominational of flow void within the right M1 [...] spoon/cup and pureed /mech soft solids w/ REHABILITATION MEDICINE PHYSICIAN only w/ less than 5% s/s of [...] from respiratory status changes. Therapist: Whit Guadarrama MS,[facility]-REHABILITATION MEDICINE PHYSICIAN [id number] Date: 07/06/2018 * Aria Mccoy, PT - [...] s/p suprapubic catheter that was admitted at [facility] for urosepsis, DKA, A fib with [...] spoon/cup and pureed /mech soft solids w/ REHABILITATION MEDICINE PHYSICIAN only w/ less than 5% s/s of [...] speech therapy post acute hospitalization. Therapist: Cesia Hatfield/CCC-REHABILITATION MEDICINE PHYSICIAN (Pager [phone]; Voalte: [phone]) Date: 07/05/2018 * Darcy Goodrich MD - [...] s/p suprapubic catheter that was admitted at [facility] for urosepsis, DKA, A fib with [...] EF, LA size 3.5cm, no thrombus - REHABILITATION MEDICINE PHYSICIAN to eval and treat - Video swallow [...] - Rocephin 07/01 - 07/05 FEN: - [place] thick PO fluids - Daily BMP - [...] (Last 24 hours) Glucose: (!) 131 (07/05/18 0557) POC Glucose (Download): (!) 139 (07/05/18 8072) Radiology and other Diagnostics Review: Pertinent radiology reviewed. Darcy Goodrich MD Neurology PGY-4 Pager Neurology calibration laboratory technician pager [phone] Associated attestation - Diego Gutierrez MD - [...] DKA resolved -A1c 17.4 on 07/01/2018 uncontrolled -MANAGER FILE regimen: levemir 40 units QHS, Novolog 20-25 [...] up with local endocrinology in [facility] This is an individual we [...] - 100 MG/DL POC GLUCOSE Collection Time: 09/16/18 1:31 AM Result Value Ref Range Glucose, [...] s/p suprapubic catheter that was admitted at [facility] for urosepsis, DKA, A fib with [...] EF, LA size 3.5cm, no thrombus - REHABILITATION MEDICINE PHYSICIAN to eval and treat - Video swallow [...] - Rocephin 07/01 - 07/05 FEN: - [place] thick PO fluids - Daily BMP - [...] 20,000 Units/ sodium bicarbonate 650 mg(#) PRN (Jig Worker from Rx) Vital Signs: Last Filed in [...] the posterior medial left temporal lobe. 3. Nondenominational of flow void within the right M1 segment, previously noted to be occluded. Munira Ortega DO Pager [phone] Associated attestation - Diego Gutierrez MD - [...] another endoscopy at [facility] OSH again without a clear upper GI [...] DKA resolved -A1c 17.4 on 07/01/2018 uncontrolled -MANAGER FILE regimen: levemir 40 units QHS, Novolog 20-25 [...] up with local endocrinology in [facility] Anemia This patient is having [...] 20,000 Units/ sodium bicarbonate 650 mg(#) PRN (Jig Worker from Rx) Objective Vital Signs: Last Filed [...] Screen NEG Electronic Crossmatch YES Unit Number [id number] Blood Component Type RBC,CPDA,LEUKO REDUCED Unit Division [...] be different from the original. Results for ANTHONY VALDEZ ( ) as of 07/03/2018 23:20 Ref. [...] s/p suprapubic catheter that was admitted at [facility] for urosepsis, DKA, A fib with [...] EF, LA size 3.5cm, no thrombus - REHABILITATION MEDICINE PHYSICIAN to eval and treat - Video swallow [...] - UA negative for UTI FEN: - [place] thick PO fluids - Daily BMP - [...] 20,000 Units/ sodium bicarbonate 650 mg(#) PRN (Jig Worker from Rx) Vital Signs: Last Filed in [...] the posterior medial left temporal lobe. 3. Nondenominational of flow void within the right M1 [...] s/p suprapubic catheter that was admitted at [facility] for urosepsis, DKA, A fib with [...] 6 Standardized (T-scale) Score: 16.59 Basic Mobility [facility] 0-100%: 100 CMS G Code Modifier for [...] body lift to chair for weekend, with balance staff staker. Ivised mobility recommendation with bedside RN. RECOMMENDATIONS: PT Discharge Recommendations PT Discharge Recommendations: Inpatient Setting Therapist: Dolores Sampson, PT Date: 07/03/2018 * Mary Grace Stanton, OT - 07/03/2018 1:33 PM CDT Formatting of this note may be different from the original. OCCUPATIONAL THERAPY PROGRESS NOTE Patient Name: Valdez Anthony Room/Bed: [place] [address] Admitting Diagnosis: Stroke Past Medical History: Diagnosis [...] non verbal with left hemiplegia. Transferred to [facility]. R MCA stroke s/p thrombectomy, stent 07/01. [...] occasionally in community. Prior Function Level Of Speculator: Independent with ADLs and functional transfers Lives [...] s/p suprapubic catheter that was admitted at [facility] for urosepsis, DKA, A fib with [...] Fed Thin Liquid: 1 oz, Cup, Straw [place] Thick Liquid: Cup, Straw Honey Thick Liquid: [...] spoon/cup and pureed /mech soft solids w/ REHABILITATION MEDICINE PHYSICIAN only w/ less than 5% s/s of aspiration. Goal : Pt will participate in cognitive-communication assessment given mod cues. Therapist: BIANCA Lamb, L/CCC-REHABILITATION MEDICINE PHYSICIAN Voalte: [phone] Date: 07/03/2018 * Alex Medel RN - [...] no feeding at this time. Alonzo Watt, CAFETERIA TABLE ATTENDANT, said the video swallow results are back [...] PM CDT Patient arrived to room # (7032) via bed accompanied by RN. Patient transferred [...] 9:20 PM CDT Pt transported [facility] room [facility] via bed, RN x2, VSS. Pt [...] ASSESSMENT NOTE Patient Name: Valdez Anthony Room/Bed: QS9457/01 Admitting Diagnosis: Stroke Past Medical History: Diagnosis [...] occasionally in community. Prior Function Level Of Speculator: Independent with ADLs and functional transfers Lives [...] on above evaluation and clinical judgment. Therapist: Mayr Grace Stanton, OT Date: 07/02/2018 * Dolores [...] s/p suprapubic catheter that was admitted at [facility] for urosepsis, DKA, A fib with [...] Sampson, PT Date: 07/02/2018 * Alonzo Watt APRN-CAFETERIA TABLE ATTENDANT - 07/02/2018 1:20 PM CDT Vascular Neurology Interval Note Valdez Caal a 57 y.o.maleis a 57 y.o. male with new onset Atrial Fibrillation with RVR, HTN, HLD, T2DM, Diabetic Retinopathy, OD Blindness, Neovascular Glaucoma, Prostate Cancer s/p prostatectomy, Urinary Retention s/p suprapubic catheter that was admitted at [facility] for urosepsis, DKA , A fib [...] from the ICU. Updated plan: - NPO, REHABILITATION MEDICINE PHYSICIAN to monitor swallow - Protein shake supplements - f/u on Blood Cxr's - Continue insulin gtt, consider endocrine consult - SBP <140 Alonzo Watt APRN-CAFETERIA TABLE ATTENDANT Vascular Neurology [id number] Associated attestation - Diego [...] is restart AC in 10 days, needs REHABILITATION MEDICINE PHYSICIAN re-eval for get cleared otherwise PEG, Glu [...] pt completed videoswallow evaluation at [facility], which she states yielded recommendations [...] Continue Treatment 3-5x/week. Prognosis: Fair NOMS Dysphagia Ratin0-Occjtcoehn-Kfabgm Dysphagia -Not able to swallow safely by mouth for nutrition/hydration but may take some consistency w/ consistent max cues in therapy only. Alternative method of feeding required. Results Reported to Physician: Yes Objective* Relevant Med Background: 57 y.o. male with A-Fib (on Coumadin MANAGER FILE), IDDM, Prostate CA, OD blindness, HLD and [...] the posterior medial left temporal lobe. 3. Nondenominational of flow void within the right M1 [...] videoswallow evaluation given mild-mod cues. Therapist:BIANCA Lamb, Cesia/CCC-REHABILITATION MEDICINE PHYSICIAN Voalte: [phone] Date:07/02/2018 * Ciarra Valentino DO - 07/02/2018 [...] s/p suprapubic catheter that was admitted at [facility] for urosepsis, DKA , A fib [...] involving the medial L temporal lobe. 3. Nondenominational of flow void in the R M1. - Stroke Risk Factor Modification -LDL 44. Goal <70. Continue ocean clam boat captain atorvastatin 40mg -A1c 17.4. Goal <7.0 -Continue ASA. Will discuss timing of AC given Afib. -Goal BP <140 - PT/OT, Speech Consult - Consult to Rehab - Neuro-ICU monitoring, neurochecks q 1 hrs Encephalopathy -s/p Flumazenil 0.5mg x 2 -07/01 ABG 7.34/39/102/20.6 -07/01 EEG: Diffuse slowing indicative of encephalopathy. No seizures or epileptiform activity. -No sedation needs -Holding ocean clam boat captain Bupropion, Duloxetine Sedation/Pain Management: -s/p ativan 2mg and fentanyl 25mcg -s/p flumazenil 0.5 mg x 3 -No sedation needs at this time Cardiac: Afib with RVR -[id number]: 4: 4.8% Risk for stroke and 6.7% [...] - Hydralazine prn SBP >140 - Continue ocean clam boat captain Lisinopril 20mg HLD - LDL 44. Goal LDL <70. Continue ocean clam boat captain atorvastatin 20mg Respiratory: Hypoxia likely [...] - Blood glucose goal 100-180mg/dl - Holding ocean clam boat captain Levemir 16 units and Novolog [...] (Last 24 hours) Glucose: (!) 127 (07/02/18 3777) POC Glucose (Download): (!) 142 (07/02/18 6316) Lab Review: 24-hour labs: Results for orders [...] Range Color,UA STRAW Turbidity,UA CLEAR CLEAR-CLEAR Specific Start-Urine 1.018 1.003 - 1.035 pH,UA 5.0 5.0 [...] O2 Sat-Arterial 97.5 95 - 99 % Enlmhwmcpbm-MRC-Odg 20.6 (L) 21 - 28 MMOL/L POC [...] procedures reviewed. Ciarra Valentino, DO Date: 07/02/[phone] Associated attestation - Veronica Doyle MD - [...] outpatient follow up Jerry Baker MD Urology calibration laboratory technician Please page calibration laboratory technician with concerns * Jaycob Ramos DO - 07/01/2018 3:49 PM CDT Attempted to see pt today but he was off the unit. Will attempt to see pt . * Veronica Doyle MD - 07/01/2018 2:45 PM CDT Formatting of this note may be different from the original. ATTESTATION I have seen, personally fully evaluated, and discussed patient with Dr Valentino and the [facility] team. I agree with the objective findings [...] Doyle MD Date: 07/01/2018 * Whit Guadarrama MS,CCC-REHABILITATION MEDICINE PHYSICIAN - 07/01/2018 1:36 PM CDT SPEECH-LANGUAGE PATHOLOGY NO TREATMENT NOTE Order received and appreciated for clinical swallow evaluation. Chart reviewed and made contact with RN. Pt currently with another provider and with decreased level of arousal/responsiveness following ativan administration in the helicopter. REHABILITATION MEDICINE PHYSICIAN will hold at this time per discussion with RN. REHABILITATION MEDICINE PHYSICIAN will follow up and will complete evaluation when pt medically appropriate. Addendum 15:20: pt remains somnolent and unable to sustain adequate level of arousal to participate in clinical swallow evaluation per discussion with RN. REHABILITATION MEDICINE PHYSICIAN will return to complete evaluation when appropriate. Chart review: Mr. Anthony presented to [facility] on 06/29 with uro-sepsis and [...] suggesting smaller completed infarct. Therapist: Whit Guadarrama MS,CCC-REHABILITATION MEDICINE PHYSICIAN [id number] Date: 07/01/2018 * Mari Mullen RN - [...] Pre Procedure History and Physical/Sedation Plan Name:Valdez COLONN: [id number] :1960 Age: 57 y.o. Date of Service: [...] s/p suprapubic catheter that was admitted at [facility] for urosepsis, DKA, A fib with [...] Factor Modification -Lipid Panel and A1c. Continue ocean clam boat captain atorvastatin 40mg -TTE -Start ASA. -Goal BP <140 - PT/OT, Speech Consult - Consult to Rehab - Neuro-ICU monitoring, neurochecks q 1 hrs Encephalopathy likely 2/2 to Ativan, Fentanyl -s/p Flumazenil 0.5mg x 2 -ABG -CT Head w/out contrast -No sedation needs -Holding ocean clam boat captain Bupropion, Duloxetine Sedation/Pain Management: -s/p ativan 2mg and fentanyl 25mcg -s/p flumazenil 0.5 mg x 2 -No sedation needs at this time Cardiac: Afib with RVR -[id number]: 4: 4.8% Risk for stroke and 6.7% [...] due to bradycardia at OSH - Holding ocean clam boat captain Lisinopril 20mg and Metoprolol 25mg BID HLD - Lipid Panel. Goal LDL <70. Continue ocean clam boat captain atorvastatin 20mg Respiratory: DHRUV -RA [...] Prostate CA s/p resection 2014, Urinary Retention /2 to stricture s/ p suprapubic catheter, -Urology [...] - Blood glucose goal 100-180mg/dl - Holding ocean clam boat captain levemir, novolog FEN: - IVF: [...] p suprapubic catheter that was admitted at [facility] for urosepsis, DKA, A fib with RVR requiring cardizem ggt that was transferred for concerns for stroke. Admitted on 06/28 to [facility] with week history of cough, SOB. Found to have UTI with urosepsis and DKA with CO2 of 8, BG in 600s. Admitted to the ICU at [facility]. Started on CTX and Insulin [...] language) 2=neither correct 2 1c. 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, garnett machine operator and release non-paretic hand (other 1 [...] more than one modality 2 Score 32 [place] coma score: E: 2 - Opens eyes [...] diagnostic procedures reviewed. Ciarra Valentino, Date: 07/01/[phone] * Edivn Juarez, FIRST BREAKER FEEDER-CAFETERIA TABLE ATTENDANT - 07/01/2018 12:03 PM CDT Formatting of [...] Pertinent labs reviewed Edvin Juarez APRN-ROSEANN Pager [phone] in this encounter Procedure Notes * Amy Velasquez MD - 07/01/2018 8:07 PM CDT Procedure(s): EEG AWAKE & ASLEEP EEG REPORT Valdez Anthony 1960 [id number] DATE OF STUDY 07/01/18 PATIENT HISTORY: This [...] mL IVPB (MB+), 1 g, Intravenous, PRN (Jig Worker from Rx) AND Ionized Calcium, , , [...] 250 mL IVPB, 8 mmol, Intravenous, PRN (Jig Worker from Rx) AND Phosphorus, , , PRN [...] here. EGD showed s/p polypectomy. Transferred to [facility] for stroke. Hgb dropped from 10.1 [...] She also does mention that at the [facility] the patient did have an upper endoscopy [...] Color,UA YELLOW Turbidity,UA 2+ (A) CLEAR-CLEAR Specific Start-Urine 1.017 1.003 - 1.035 pH,UA 5.0 5.0 [...] DKA resolved -A1c 17.4 on 07/01/2018 uncontrolled -MANAGER FILE regimen: levemir 40 units QHS, Novolog 20-25 [...] up with local endocrinology in [facility] Patient was seen and discussed [...] with diabetes in 1994. He follows with enamel cracker at [facility]. At home, he was taking Levemir 40 units once a day, NovoLog 20-25 units with meal, metformin 1000 mg twice a day. His states that enamel cracker prescribe NovoLog 40 units 3 times a [...] reviewed. Brenda Larios Endocrine Fellow Pager # [phone] 07/03/2018 Associated attestation - John Chaudhry MD [...] thick full liquids today) Estimated Calorie Needs: 2151-6606 (25-28 kcal/kg desired wt) Estimated Protein Needs: 85-100 (1.2-1.4 g/kg desired wt) Oral Diet Order: Full Liquid, [place] Thick Liquids Current EN Order: Isosource 1.5 [...] s/p suprapubic catheter that was admitted at [facility] for urosepsis, DKA, A fib with [...] 07/02. Pt pulled Corpak today despite mits. REHABILITATION MEDICINE PHYSICIAN evaluated pt via video-swallow with moderate oropharyngeal dysphagia and baseline cognitive deficits. REHABILITATION MEDICINE PHYSICIAN recommending nectar thick full liquids; diet ordered. [...] meal. Offer No Sugar Added "Light Start [place] Breakfast Essentials" shakes made with nectar thick [...] Intervention / Plan: assessed nutritional status; ordered [place] Breakfast shakes with nectar thick milk PRN monitor po intake, adequacy, tolerance and advancement per REHABILITATION MEDICINE PHYSICIAN findings and recs monitor wt trends, labs, meds and GI status Nutrition Diagnosis: Altered GI function Etiology: swallowing and cognitive deficits Signs & Symptoms: REHABILITATION MEDICINE PHYSICIAN findings and recs for nectar thick full liquids with supervision Goals: Patient to consume >75% of meals/supplements Time Frame: Within 72 Hours Tata Daniels, MS,RD, LD, [facility] *[phone] * Damian Hensley MD - 07/02/2018 1:16 PM CDT Associated Order(s): CONSULT REHABILITATION MEDICINE PHYSICIAN Formatting of this note may be different from the original. Rehabilitation Medicine Attending Physician Attestation: Agree with resident. Valdez Anthony is a pleasant 57 y.o. male with PMH of DM Type 2, HTN, HL, right eye blindness, glaucoma, prostate cancer s/p resection, who was admitted upon transfer from [facility] on 07/01/2018 after originally presenting there with sepsis determined to be secondary to UTI complicated by DKA and Atrial Fibrillation and then apparent AMS. [facility]. [...] complexity and goals with PT, OT, and REHABILITATION MEDICINE PHYSICIAN for acute inpatient rehabilitation; however, he is [...] Please have primary SWCM discuss with [facility] program proposals coordinator according to the patient 's (and/or [...] a 57 y.o. male admitted to [facility] on 07/01/2018 with the following issues: [...] hours while supine in bed, pressure relief [id number] in seated position, PRAFOs for pressure relief and to prevent contractures Jaycob Ramos, Rehab Consult Pager: [phone] History of Present Illness Hospital Course: Valdez Anthony is a 57 y.o. male with new onset Atrial Fibrillation with RVR, HTN , HLD, T2DM, Diabetic Retinopathy, OD Blindness, Neovascular Glaucoma, Prostate Cancer s/p prostatectomy, Urinary Retention s/p suprapubic catheter that was admitted at [facility] for urosepsis, DKA, A fib with [...] urosepsis. Rehab consulted for post acute rehab/placement. MANAGER FILE pt was independent and lived at home [...] Units/ sodium bicarbonate 650 mg(#) PRN ( Jig Worker from Rx) Allergies: No Known Allergies Prior Level of Function Prior Function Level Of Speculator: Independent with ADLs and functional transfers Lives [...] L spontaneously. Mitt and soft wrist restraints, [place] strap replaced end of session and bed [...] pt completed videoswallow evaluation at [facility], which she states yielded recommendations [...] [facility] - 07/09/2018 11:04 AM CDT COMPLIANCE ENGINEER Note: This quality analyst/technical writer printed and placed transfer packet in pt's chart drawer, per request from [facility] Sophia Vaughn. [facility] Packaging Technician For additional assistance, please contact [facility] Sophia Vaughn *[phone] * Anesthesia Post Op Day 1 - [...] days Todays Date: 07/09/2018 Plan D/c to [facility] today at 1:00pm via facility w/c [...] or Referral ? Discharge Planning Discharge Planning: [facility]iary Facility WLILEM sent updated clinicals to [facility] at [phone]. Update 10:00am: WILLEM spoke with Perla ([phone]) at [facility] to update. Perla educated that they will be available for transportation today at 1:00pm. WILLEM spoke with Neuro Team to update. WILLEM spoke with bedside RN to update. WILLEM tasked COMPLIANCE ENGINEER to deliver transfer packet. RN Report: [phone] WILLEM faxed d/c orders to [facility] at [phone]. ? Medication Needs ? Financial ? Legal [...] for the patient. Sophia Vaughn LMSW Phone: [phone] Pager: [phone] * Case Mgmt DC Plan - Sophia Vaughn - 07/08/2018 9:10 AM CDT Formatting of this note may be different from the original. Case Management Progress Note NAME:Valdez Anthony :1959 AGE: 57 y.o. ADMISSION DATE: 07/01/2018 DAYS ADMITTED: LOS: 7 days Todays Date: 07/08/2018 Plan Anticipate d/c to [facility] tomorrow pending pt stability. Interventions WILLEM [...] or Referral ? Discharge Planning Discharge Planning: Penitentiary Facility WILLEM received and returned message for Angela ([phone]) at [facility] to discuss referral. Update 10:00am: WILLEM spoke with Blanquita ([phone]) at [facility] to update of anticipated d/c timeline. Blanquita educated that they are still reviewing for potential admission and will be contacting pt's to further discuss an admission. However, they will notify WILLEM once decision reached. Update 10:44am: WILLEM spoke with Perla at [facility] to update. Perla educated that they are able to accept for admission and will have their w/c van available for such. ? Medication Needs ? Financial [employer] following for assistance with [employer] ariel. ? Legal ? Other Other/None: [...] for the patient. Sophia Vaughn LMSW Phone: [phone] Pager: *[phone] * Care Plan - Shira Welch RN [...] Todays Date: 07/07/2018 Plan Anticipate d/c to [facility] tomorrow pending pt stability and facility acceptance. Interventions SW reviewed EMR and met with Neuro team for huddle. GI consulted. Anticipated EGD today. ? Support Support: Pt/Family Updates re:POC or DC Plan, Counseling for Adaptation to Illness, Counseling for Psychosocial issues ? Info or Referral ? Discharge Planning Discharge Planning: [facility]iary Facility WILLEM left message for Admissions ([phone]) at [facility] to discuss referral. Update 11:40am: WILLEM spoke with Hyacinth ([phone]) at [facility] and they are unable to locate referral. WILLEM agreeable to re-send referral to [phone], which WILLEM completed. Hyacinth educated that she will review and follow up. Hyacinth will also speak with her supervisor sleeping bag department to discuss their ability to assist with transportation. Update 1:20pm: SW received message from Hyacinth and they are still unable to locate referral. WILLEM manually faxed referral to [phone], as requested. Update 2:00pm: WILLEM received message from Hyacinth that they only got a portion of the referral. WILLEM re-faxed referral to [phone]. Update 4:00pm: WILLEM received and returned message for Angela ([phone]) at [facility]. ? Medication Needs ? Financial ? [...] for the patient. Sophia Vaughn LMSW Phone: [phone] Pager: [phone] * Care Plan - Shira Welch RN [...] Liana Ortiz - 07/06/2018 10:50 AM CDT [facility] Note: Received request from [facility] Sophia Vaughn to fax referrals to the following placements[facility] costs to the facility. [place] [facility] - $350-375 [facility] - $500-525 [facility] - $400-425 [facility] w/c van - $430 All subject to time, billed republican, needs, etc. Updated [facility] Liana Ortiz Packaging Technician For additional assistance please contact [facility] Sophia Vaughn *[phone] * Case Mgmt DC Plan - Sophia Vaughn - 07/06/2018 10:36 AM CDT Formatting of this note may be different from the original. Case Management Progress Note NAME:Valdez Anthony :1959 AGE: 57 y.o. ADMISSION DATE: 07/01/2018 DAYS ADMITTED: LOS: 5 days Todays Date: 07/06/2018 Plan Anticipate d/c to [facility] tomorrow vs Friday pending pt stability and facility acceptance. Interventions SW reviewed EMR and met with Neuro team for huddle. Anticipate GI consult. Continue to monitor hgb. ? Support Support: Pt/Family Updates re:POC or DC Plan, Counseling for Adaptation to Illness, Counseling for Psychosocial issues SW visited pt and Leticia at bedside to discuss DCP. [facility] SW agreeable and reviewed referral process. SW also reviewed potential private pay cost of w/c van should SNF be unable to assist. Leticia uncertain regarding their ability to private pay, however unwilling to remain in [facility] for SNF stay. SW agreeable to obtaining quote for ongoing assistance. ? Info or Referral ? Discharge Planning Discharge Planning: Penitentiary Facility SW tasked COMPLIANCE ENGINEER [facility] SW tasked COMPLIANCE ENGINEER to check rosenberg of w/c van. ? [...] for the patient. Sophia Vaughn LMSW Phone: [phone] Pager: [phone] * Case Mgmt DC Plan - Sophia [...] or Referral ? Discharge Planning Discharge Planning: Penitentiary Facility ? Medication Needs ? Financial ? [...] for the patient. Sophia Vaughn LMSW Phone: [phone] Pager: [phone] * Transfer - Ciarra Valentino, DO - [...] s/p suprapubic catheter that was admitted at [facility] for urosepsis, DKA , A fib [...] Started on ASA. LDL 40, continued on ocean clam boat captain atrovastatin. PT/OT and Speech consulted. CV: Initially started on Nicardipine ggt for goal SBP <140. Restarted on ocean clam boat captain lisinopril. Intermittent Afib on telemetry. [...] OSH. DKA resolved. Insulin ggt continued. Holding ocean clam boat captain Levemir and Novolog. Consider Endocrine [...] Discharge Plan: Undetermined Ciarra Valentino DO Pager [phone] * Case Mgmt DC Plan - Sophia Vaughn - 07/01/2018 3:09 PM CDT Case Management Admission Assessment NAME:Valdez Anthony :1959 AGE: 57 y.o. ADMISSION DATE: 07/01/2018 DAYS ADMITTED: LOS: 0 days Todays Date: 07/01/2018 Source of Information: SW visited pt's Leticia and pt's OCTAVIANO Moseley at bedside. Plan Plan: CM Assessment, Assist PRN with SW/NC Services Patient Address/Phone [address] [address] (home) Emergency Contact Extended Emergency Contact Information Primary Emergency Contact: Suzie English ([facility]) Relation: Relative Secondary Emergency Contact: Leticia Anthony (Judy) [facility] Mobile Relation: Spouse Healthcare Directive None [...] (Medicare Part A and B) Secondary Insurance: [place]/[facility] ([facility]) Additional Coverage: [place] (fills at [facility]. ) ? Source of Income Source Of Income: SSDI ? Financial Assistance Needed? None Psychosocial Needs ? Mental Health Mental Health History: No ? Substance Use History Substance Use History Screen: No ? Other None Current/Previous Services ? PCP Chris Seay APRN at [facility] ([phone] ext [phone]) ? Pharmacy [facility] [address] [address] ? Durable Medical Equipment Durable Medical Equipment [...] ? Outpatient Therapy PT: No OT: No REHABILITATION MEDICINE PHYSICIAN: No ? Penitentiary Facility/Long-Term SNF: No NH: No Pt's OCTAVIANO Moseley works at [employer], therefore family understanding of LTC and SNF level of cares. ? Inpatient Rehab IPR: No ? Long-Term Acute Care Hospital LTACH: No ? Acute Hospital Stay Acute Hospital Stay: In the past Was patient's stay within the last 30 days?: No Sophia Vaughn LMSW Phone: [phone] Pager: [phone] * Acute Stroke Response - Alonzo Watt [...] 57 y.o. male with A-Fib (on Coumadin MANAGER FILE), IDDM, Prostate CA, OD blindness, HLD and [...] due to positive occult) - 300mg ASA ID daily - Echocardiogram - MRI head w/o contrast in AM of 07/02 - Monitor telemetry for arrhythmia - NPO - REHABILITATION MEDICINE PHYSICIAN to eval speech when more alert - PT/OT to eval and treat - Rehab Medicine Consult The patient was seen and discussed with Dr. Gutierrez History of Present Ilness History of Present Illness: Mr. Anthony presented to [facility] on 06/29 with uro-sepsis and DKA. Supra- [...] then to IR for EVT. At [facility] he had dropping Hgb and positive heme [...] language) 2=neither correct 2 1c. 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, garnett machine operator and release non-paretic hand (other 1 [...] Medications: [MAR Hold] calcium gluconate IV PRN (Jig Worker from Rx) AND Ionized Calcium PRN AND Notify Physician Ongoing, [MAR Hold] magnesium sulfate PRN AND Magnesium PRN AND Notify Physician Ongoing, [MAR Hold] potassium chloride SR PRN OR [MAR Hold] potassium chloride PRN, [MAR Hold] sodium phosphate IVPB PRN (Jig Worker from Rx) AND Phosphorus PRN AND Notify [...] lentiform nucleus suggesting smaller completed infarct. Alonzo Wtat APRN-ROSEANN Vascular Neurology [id number] Associated attestation - [...] 07/01/2018 Attending Physician: Lulu Perry MD Clinical Education Coordinator(s): Miri Nair Stroke Treatment Time out performed: [...] Sedated from ativan Lulu Perry MD Pager: [phone] * Acute Stroke Response - Hannah Ceballos RN - 07/01/2018 12:14 PM CDT Formatting of this note may be different from the original. RN Stroke Activation Summary Date of Service: 07/01/2018 Valdez Anthony is a 57 y.o. male. : 1960 Allergies: Patient has no known allergies. Patient Arrival: 1118 ASRT Arrival: 1108 Location of Response : [facility] elevator 2nd floor Page Received: 1102 (ETA 10 minutes) EMS Agency: [facility] Outside Hospital: [facility] Clinical [...] Summary: Report received from MAXINE Pardo at [facility] in [place], [place]. Per report patient last known well today at 0730. At 0825 she noted patient to be less responsive with left side flaccid, dysarthria and left facial droop. Patient transferred to [facility] and upon arrival had decreased LOC. [...] dressing applied at 1228. Patient transported to [facility] 5120, VSS and no complications noted. Report given to MAXINE Cooley. CT/CTP/CTA/IR: CTA/CTP time: 1125 CTA/CTP Interpretation time: 1145 N/A Plan: Patient admitted to [facility] 5120 post procedure for further evaluation and [...] MG/DL [facility] Performing Organization Address [facility] Phone Number [facility] [address] [place] [address] * POC GLUCOSE (07/09/2018 3:34 PM) Glucose, POC 66 (L) 70 - 100 MG/DL [facility] Performing Organization Address [facility] Phone Number [facility] [address] [place] [address] * POC GLUCOSE (07/09/2018 3:18 PM) Glucose, POC 69 (L) 70 - 100 MG/DL [facility] Performing Organization Address [facility] Phone Number [facility] [address] [place] [address] * POC GLUCOSE (07/09/2018 1:49 PM) Glucose, POC 136 (H) 70 - 100 MG/DL [facility] Performing Organization Address [facility] Phone Number [facility] [address] [place] [address] * POC GLUCOSE (07/09/2018 11:40 AM) Glucose, POC 158 (H) 70 - 100 MG/DL [facility] Performing Organization Address [facility] Phone Number [facility] [address] [place] [address] * POC GLUCOSE (07/09/2018 8:35 AM) Glucose, POC 104 (H) 70 - 100 MG/DL [facility] Performing Organization Address [facility] Phone Number [facility] [address] [place] [address] * COMPREHENSIVE METABOLIC PANEL (07/09/2018 5:47 AM) [...] for questions. Specimen Blood Performing Organization Address [facility] Phone Number [facility] [address] [place] [address] * CBC AND DIFF (07/09/2018 5:47 AM) [...] LAB Eosinophils 1 0 - 5 % [facility] Basophils 0 0 - 2 % [facility] Absolute Neutrophil Count 11.70 (H) 1.8 - 7.0 [facility] Absolute Lymph Count 2.10 1.0 - 4.8 [facility] Absolute Monocyte Count 1.30 (H) 0 - 0.80 K[facility] Absolute Eosinophil Count 0.20 0 - 0.45 [facility] Absolute Basophil Count 0.00 0 - 0.20 [facility] Specimen Blood Performing Organization Address City/[facility] Phone Number MAIN LAB [address] [place] [address] * POC GLUCOSE (07/09/2018 3:09 AM) Glucose, POC 151 (H) 70 - 100 MG/DL MAIN LAB Performing Organization Address City/[facility] Phone Number MA[facility] [address] [place] [address] * POC GLUCOSE (07/09/2018 1:10 AM) Glucose, POC 80 70 - 100 MG/DL [facility] Performing Organization Address City/[facility] Phone Number MAIN [facility] [address] [place] [address] * CULTURE-BLOOD W/SENSITIVITY (07/08/2018 10:25 PM) Battery Name BLOOD CULTURE [facility] Specimen Description BLOOD MA[facility] LEFT HAND Special Requests NONE MAIN LAB Culture NO GROWTH 5 DAYS MAIN LAB Report Status FINAL MAIN LAB 07/14/2018 Specimen Blood Performing Organization Address City/[facility]/Zipcode Phone Number MAIN LAB [address] [place] [address] * POC GLUCOSE (07/08/2018 9:52 PM) Glucose, POC 96 70 - 100 MG/DL [facility] Performing Organization Address City/[facility]/Zipcode Phone Number MAIN LAB [address] [place] [address] * CULTURE-BLOOD W/SENSITIVITY (07/08/2018 8:20 PM) Battery Name BLOOD CULTURE MAIN LAB Specimen Description BLOOD MAIN LAB LEFT ANTECUBITAL Special Requests NONE MAIN LAB Culture NO GROWTH 5 DAYS MAIN LAB Report Status FINAL MAIN LAB 07/14/2018 Specimen Blood Performing Organization Address City/[facility]/Zipcode Phone Number MAIN LAB [address] [place] [address] * POC GLUCOSE (07/08/2018 5:56 PM) Glucose, POC 129 (H) 70 - 100 MG/DL [facility] Performing Organization Address City/[facility] Phone Number MAIN LAB [address] [place] [address] * SURGICAL PATHOLOGY (07/08/2018 4:34 PM) PATHOLOGY REPORT [facility] [email or web address] Department of Pathology and Laboratory Medicine [address] [place] [address] Surgical Pathology Office:[phone] :[phone] SURGICAL PATHOLOGY REPORT NAME: VALDEZ ANTHONY SURG PATH #: [id number] MR #: [id number] SPECIMEN CLASS: SR BILLING #: [id number] ALT ID #:LOCATION: DISCHARGED DATE OF PROCEDURE: [...] MAIN LAB Specimen Urine Performing Organization Address [facility] Phone Number [facility] [address] [place] [address] * URINALYSIS MICROSCOPIC REFLEX TO CULTURE (07/08/2018 4:09 PM) WBCs,UA 0-2 0 - 2 /HPF [facility] MAIN [facility] RBCs,UA 0-2 0 - 3 /HPF [facility] Comment,UA Urine submitted for reflex [facility] MAIN [facility] culture if criteria are met:WBC>10, positive nitrite and/or >=1+ leukocyte esterase. If quantity is not sufficient, an addendum will follow. Specimen Urine Performing Organization Address [facility] [place] [facility] Phone Number [facility] MAIN [facility] [address] [phone] * URINALYSIS DIPSTICK REFLEX TO CULTURE (07/08/2018 4:09 PM) Color,UA STRAW [facility] MAIN [facility] Turbidity,UA CLEAR CLEAR-CLEAR [facility] MAIN [facility] Specific Start-Urine 1.005 1.003 - 1.035 [facility] MAIN LAB [...] MAIN LAB Specimen Urine Performing Organization Address [facility] Phone Number MAIN LAB [address] [place] [address] * CHEST SINGLE VIEW (07/08/2018 2:15 PM) [...] on 07/08/2018 2:17 PM. Performing Organization Address City/[facility]/Zipcode Phone Number K[facility] RAD RESULTS * POC GLUCOSE (07/08/2018 1:57 PM) Glucose, POC 75 70 - 100 MG/DL [facility] MAIN LAB Performing Organization Address City/[facility] Phone Number [facility] MAIN LAB [address] [place] [address] * POC GLUCOSE (07/08/2018 1:21 PM) Glucose, POC 67 (L) 70 - 100 MG/DL [facility] MAIN [facility] Performing Organization Address City/[facility]/Zipcode Phone Number [facility] MAIN [facility] [address] [place] [address] * POC GLUCOSE (07/08/2018 11:46 AM) Glucose, POC 164 (H) 70 - 100 MG/DL [facility] MAIN [facility] Performing Organization Address City/[facility] Phone Number [facility] [address] [place] [address] * POC GLUCOSE (07/08/2018 11:22 AM) Glucose, POC 40 (LL) 70 - 100 MG/DL MAIN LAB Performing Organization Address City/State/Zipcode Phone Number MAIN LAB [address] [address] * EGD REPORT (07/08/2018 10:48 AM) Provation Report Patient Name: Raj DIMAS OTHER RESULTS Procedure Date: 07/08/2018 10:48 AM CSN: [id number] Date of : 1960 Gender: Male Attending Physician: Clara Carolina MD Procedure: Upper GI endoscopy Indications: Anemia (Mixed picture of anemia of chronic disease + Iron deficiency anemia), new onset of Afib and not on AC. Providers: Clara Carolina MD (Doctor), Roberto Dutta MD (Fellow), Alvaro Banegas (Nurse), Minna Jiménez RN (Nurse), Abisai Burden, Gas Plant Specialist (Gas Plant Specialist) Referring Physician: Referral Self Medications: Monitored Anesthesia [...] 55 seconds Procedure Code(s): --- Professional --- 55801, Esophagogastroduodenoscopy, flexible, transoral; with biopsy, single or multiple Diagnosis Code(s): --- Professional --- K44.9, Diaphragmatic hernia without obstruction or gangrene K31.89, Other diseases of stomach and duodenum D50.0, Iron deficiency anemia secondary to blood loss (chronic) CPT copyright 2016 [employer]. All rights reserved. The codes documented in this report are preliminary and upon twist maker review may be revised to meet current [...] OTHER RESULTS Procedure Date: 07/08/2018 10:47 AM [facility]: [id number] Date of : 1960 Gender: Male Attending Physician: Clara Carolina MD Procedure: Colonoscop y Indications: Anemia (Mixed picture of anemia of chronic disease + Iron deficiency anemia), new onset of Afib and not on AC. Providers: Clara Carolina MD (Doctor), Roberto Dutta MD (Fellow), Alvaro Banegas (Nurse), Minna Jiménez RN (Nurse), Abisai Burden Gas Plant Specialist (Gas Plant Specialist) Referring Physician: Gerard Salazar MD Medications: Monitored [...] 15 seconds Procedure Code(s): --- Professional --- 88921, Colonoscopy, flexible; diagnostic, including collection of specimen(s) by brushing or washing, when performed (separate procedure) Diagnosis Code(s): --- Professional --- D50.0, Iron deficiency anemia secondary to blood loss (chronic) CPT copyright 2016 [employer]. All rights reserved. The codes documented in this report are preliminary and upon twist maker review may be revised to meet current [...] Address City/State/Zipcode Phone Number MAIN LAB [address] [place] [address] * PROCALCITONIN (07/08/2018 5:53 AM) Procalcitonin 0.13 (H) <0.10 NG/ML [facility] MAIN [facility] Performing Organization Address [facility] Phone Number [facility] MAIN [facility] [address] [place] [address] * COMPREHENSIVE METABOLIC PANEL (07/08/2018 5:53 AM) [...] for questions. Specimen Blood Performing Organization Address [facility]/Zipcode Phone Number [facility] MAIN [facility] [address] [place] [address] * CBC AND DIFF (07/08/2018 5:53 AM) [...] - 15 % MAIN LAB Platelet Count 521 (H) 150 [...] Count 18.40 (H) 1.8 - 7.0 K/UL MAIN LAB Absolute Lymph Count 1.50 1.0 - 4.8 K/UL MAIN LAB Absolute Monocyte Count 1.70 (H) 0 - 0.80 K/UL MAIN LAB Absolute Eosinophil Count 0.10 0 - 0.45 K/UL MAIN LAB Absolute Basophil Count 0.00 0 - 0.20 K/UL MAIN LAB Specimen Blood Performing Organization Address City/[facility] Phone Number MAIN LAB [address] [place] [address] * POC GLUCOSE (07/07/2018 9:26 PM) Glucose, POC 176 (H) 70 - 100 MG/DL [facility] MAIN [facility] Performing Organization Address City/[facility] Phone Number MAIN LAB [address] [place] [address] * POC GLUCOSE (07/07/2018 5:54 PM) Glucose, POC 111 (H) 70 - 100 MG/DL [facility] MAIN [facility] Performing Organization Address City/[facility] Phone Number MAIN LAB [address] [place] [address] * POC GLUCOSE (07/07/2018 11:30 AM) Glucose, POC 90 70 - 100 MG/DL [facility] MAIN [facility] Performing Organization Address City/[facility] Phone Number MAIN LAB [address] [place] [address] * CBC AND DIFF (07/07/2018 8:00 AM) [...] 1.90 (H) 0 - 0.80 K/UL [facility] Absolute Eosinophil Count 0.20 0 - 0.45 K/UL KU MAIN LAB Absolute Basophil Count 0.10 0 - 0.20 K/UL MAIN LAB Specimen Blood Performing Organization Address City/State/Zipcode Phone Number [facility] [address] [place] [address] * POC GLUCOSE (07/07/2018 7:49 AM) Glucose, POC 182 (H) 70 - 100 MG/DL MAIN LAB Performing Organization Address City/[facility] Phone Number [facility] [address] [place] [address] * COMPREHENSIVE METABOLIC PANEL (07/07/2018 5:45 AM) [...] Clinical Pharmacist for questions. Performing Organization Address City/[facility]/Zipcode Phone Number MAIN LAB [address] [place] [address] * HEMOGLOBIN (07/07/2018 5:45 AM) Hemoglobin 9.5 (L) 13.5 - 16.5 GM/DL MAIN LAB Comment: Corrected on 07/09 AT 1021: previously reported as DUPLICATE ORDER, Corrected on 07/07 AT 0811: previously reported as 9.5 Specimen Blood Performing Organization Address City/[facility] Phone Number MAIN LAB [address] [place] [address] * HEMOGLOBIN (07/06/2018 10:45 PM) Hemoglobin 10.5 (L) 13.5 - 16.5 GM/DL MAIN LAB Specimen Blood Performing Organization Address City/[facility]/Zipcode Phone Number MAIN LAB [address] [place] [address] * OCCULT BLOOD NON COLON CANCER SCREEN (07/06/2018 10:45 PM) Battery Name OCCULT BLOOD SCREEN MAIN LAB Specimen Description FECES [facility] MAIN LAB Special Requests NONE [facility] MAIN LAB Occult Blood NEGATIVE MAIN LAB Report Status FINAL MAIN LAB 07/06/2018 Specimen Stool - Feces Performing Organization Address City/[facility]/Zipcode Phone Number MAIN LAB [address] [place] [address] * POC GLUCOSE (07/06/2018 9:04 PM) Glucose, POC 115 (H) 70 - 100 MG/DL [facility] MAIN [facility] Performing Organization Address City/[facility]/Zipcode Phone Number MAIN LAB [address] [place] [address] * POC GLUCOSE (07/06/2018 5:11 PM) Glucose, POC 150 (H) 70 - 100 MG/DL [facility] MAIN [facility] Performing Organization Address City/[facility]/Zipcode Phone Number MAIN LAB [address] [place] [address] * POC GLUCOSE (07/06/2018 2:36 PM) Glucose, POC 196 (H) 70 - 100 MG/DL MAIN LAB Performing Organization Address City/[facility]/Zipcode Phone Number MAIN LAB [address] [place] [address] * HEMOGLOBIN (07/06/2018 1:31 PM) Hemoglobin 8.9 (L) 13.5 - 16.5 GM/DL MAIN LAB Specimen Blood Performing Organization Address City/[facility]/Zipcode Phone Number MAIN LAB [address] [place] [address] * POC GLUCOSE (07/06/2018 11:49 AM) Glucose, POC 153 (H) 70 - 100 MG/DL MAIN LAB Performing Organization Address City/[facility]/Zipcode Phone Number MAIN LAB [address] [place] [address] * POC GLUCOSE (07/06/2018 7:29 AM) Glucose, POC 130 (H) 70 - 100 MG/DL MAIN LAB Performing Organization Address City/[facility]/Zipcode Phone Number MAIN LAB [address] [place] [address] * HEMOGLOBIN (07/06/2018 4:27 AM) Hemoglobin 9.1 (L) 13.5 - 16.5 GM/DL MAIN LAB Specimen Blood Performing Organization Address City/[facility]/Zipcode Phone Number MAIN LAB [address] [place] [address] * CBC (07/06/2018 4:27 AM) White Blood [...] MAIN LAB Specimen Blood Performing Organization Address City/[facility] Phone Number [facility] [address] [place] [address] * BASIC METABOLIC PANEL (07/06/2018 4:27 AM) [...] >60 mL/min [facility] Comment: The eGFR is not validated for use in drug dosing adjustments.Continue to use estimated creatinine clearance per dosing reference text.Please contact the Clinical Pharmacist for questions. Specimen Blood Performing Organization Address City/[facility] Phone Number [facility] [address] [place] [address] * POC GLUCOSE (07/06/2018 2:35 AM) Glucose, POC 132 (H) 70 - 100 MG/DL MAIN LAB Performing Organization Address City/[facility]/Zipcode Phone Number [facility] MAIN [facility] [address] [place] [address] * POC GLUCOSE (07/05/2018 10:09 PM) Glucose, POC 89 70 - 100 MG/DL [facility] MAIN [facility] Performing Organization Address City/[facility]/Zipcode Phone Number [facility] MAIN [facility] [address] [place] [address] * HEMOGLOBIN (07/05/2018 9:40 PM) Hemoglobin 10.1 (L) 13.5 - 16.5 GM/DL MAIN LAB Specimen Blood Performing Organization Address City/[facility] Phone Number [facility] [address] [place] [address] * POC GLUCOSE (07/05/2018 9:37 PM) Glucose, POC 77 70 - 100 MG/DL [facility] MAIN [facility] Performing Organization Address City/[facility] Phone Number MAIN LAB [address] [place] [address] * POC GLUCOSE (07/05/2018 8:15 PM) Glucose, POC 81 70 - 100 MG/DL [facility] MAIN [facility] Performing Organization Address City/[facility] Phone Number MAIN LAB [address] [place] [address] * CULTURE-URINE W/SENSITIVITY (07/05/2018 6:45 PM) Battery Name URINE CULTURE [facility] MAIN LAB Specimen Description URINE [facility] MAIN LAB Special Requests NONE [facility] MAIN LAB Culture NO GROWTH [facility] MAIN LAB Report Status FINAL [facility] MAIN LAB 07/06/2018 Specimen Urine Performing Organization Address City/[facility] Phone Number [facility] [address] [place] [address] * UA REFLEX CULTURE LABEL (07/05/2018 6:45 PM) UA Reflex Culture LAB LABEL [facility] MAIN LAB Specimen Urine Performing Organization Address City/[facility]/Zipcode Phone Number [facility] MAIN [facility] [address] [place] [address] * URINALYSIS MICROSCOPIC REFLEX TO CULTURE (07/05/2018 [...] MAIN LAB Specimen Urine Performing Organization Address City/[facility] Phone Number [facility] [address] [place] [address] * URINALYSIS DIPSTICK REFLEX TO CULTURE (07/05/2018 6:45 PM) Color,UA YELLOW [facility] MAIN [facility] Turbidity,UA 2+ (A) CLEAR-CLEAR [facility] MAIN [facility] Specific Start-Urine 1.017 1.003 - 1.035 [facility] MAIN LAB [...] MAIN LAB Specimen Urine Performing Organization Address [facility] Phone Number [facility]IN [facility] [address] [place] [address] * POC GLUCOSE (07/05/2018 4:37 PM) Glucose, POC 79 70 - 100 MG/DL [facility] MAIN [facility] Performing Organization Address [facility] Phone Number [facility] [address] [place] [address] * POC GLUCOSE (07/05/2018 2:02 PM) Glucose, POC 92 70 - 100 MG/DL [facility] MAIN [facility] Performing Organization Address [facility] Phone Number [facility] [address] [place] [address] * HEMOGLOBIN (07/05/2018 2:00 PM) Hemoglobin 9.6 (L) 13.5 - 16.5 GM/DL [facility] MAIN LAB Specimen Blood Performing Organization Address City/[facility] Phone Number [facility] [address] [place] [address] * POC GLUCOSE (07/05/2018 11:32 AM) Glucose, POC 102 (H) 70 - 100 MG/DL [facility] MAIN [facility] Performing Organization Address [facility] Phone Number [facility] [address] [place] [address] * ABDOMEN AP ONLY (07/05/2018 9:20 AM) [...] on 07/05/2018 10:21 AM. Performing Organization Address City/[facility] Phone Number [facility] RAD RESULTS * POC GLUCOSE (07/05/2018 6:56 AM) Glucose, POC 139 (H) 70 - 100 MG/DL [facility] MAIN [facility] Performing Organization Address City/[facility] Phone Number [facility] [address] [place] [address] * CBC (07/05/2018 5:50 AM) White Blood [...] MAIN LAB Specimen Blood Performing Organization Address City/[facility]/Zipcode Phone Number MAIN LAB [address] [place] [address] * POC GLUCOSE (07/05/2018 5:29 AM) Glucose, POC 125 (H) 70 - 100 MG/DL [facility] MAIN [facility] Performing Organization Address City/[facility] Phone Number MAIN LAB [address] [place] [address] * BASIC METABOLIC PANEL (07/05/2018 5:25 AM) [...] City/State/Zipcode Phone Number [facility] MAIN [facility] [address] [place] [address] * POC GLUCOSE (07/05/2018 2:37 AM) Glucose, POC 103 (H) 70 - 100 MG/DL [facility] MAIN [facility] Performing Organization Address City/State/Zipcode Phone Number [facility] MAIN [facility] [address] [place] [address] * POC GLUCOSE (07/05/2018 1:31 AM) Glucose, POC 94 70 - 100 MG/DL [facility] MAIN [facility] Performing Organization Address City/State/Zipcode Phone Number [facility] MAIN [facility] [address] [place] [address] * POC GLUCOSE (07/05/2018 12:41 AM) Glucose, POC 121 (H) 70 - 100 MG/DL [facility] MAIN [facility] Performing Organization Address City/[facility]/Zipcode Phone Number MAIN LAB [address] [place] [address] * POC GLUCOSE (07/04/2018 11:19 PM) Glucose, POC 84 70 - 100 MG/DL [facility] MAIN [facility] Performing Organization Address City/[facility]/Zipcode Phone Number MAIN LAB [address] [place] [address] * HEMOGLOBIN (07/04/2018 9:30 PM) Hemoglobin 13.5 13.5 - 16.5 GM/DL [facility] MAIN LAB Specimen Blood Performing Organization Address City/[facility]/Zipcode Phone Number MAIN LAB [address] [place] [address] * POC GLUCOSE (07/04/2018 9:15 PM) Glucose, POC 105 (H) 70 - 100 MG/DL [facility] MAIN [facility] Performing Organization Address City/[facility]/Zipcode Phone Number [facility] MAIN [facility] [address] [place] [address] * POC GLUCOSE (07/04/2018 7:50 PM) Glucose, POC 164 (H) 70 - 100 MG/DL [facility] MAIN [facility] Performing Organization Address City/State/Zipcode Phone Number [facility] MAIN [facility] [address] [place] [address] * POC GLUCOSE (07/04/2018 7:23 PM) Glucose, POC 44 (LL) 70 - 100 MG/DL [facility] MAIN [facility] Performing Organization Address City/[facility] Phone Number [facility] [address] [place] [address] * POC GLUCOSE (07/04/2018 5:10 PM) Glucose, POC 96 70 - 100 MG/DL [facility] MAIN [facility] Performing Organization Address City/[facility] Phone Number [facility] [address] [place] [address] * IRON + BINDING CAPACITY + %SAT+ FERRITIN (07/04/2018 2:20 PM) Iron 49 (L) 50 - 185 MCG/DL [facility] MAIN LAB Iron Binding-TIBC 212 (L) 270 - 380 MCG/DL [facility] MAIN LAB % Saturation 23 (L) 28 - 42 % [facility] MAIN LAB Ferritin 383 (H) 30 - 300 NG/ML [facility] MAIN LAB Specimen Blood Performing Organization Address City/[facility] Phone Number [facility] [address] [place] [address] * POC GLUCOSE (07/04/2018 2:19 PM) Glucose, POC 137 (H) 70 - 100 MG/DL [facility] MAIN [facility] Performing Organization Address City/[facility] Phone Number [facility] [address] [place] [address] * POC GLUCOSE (07/04/2018 1:42 PM) Glucose, POC 114 (H) 70 - 100 MG/DL [facility] MAIN [facility] Performing Organization Address City/[facility] Phone Number [facility] [address] [place] [address] * POC GLUCOSE (07/04/2018 1:16 PM) Glucose, POC 55 (L) 70 - 100 MG/DL [facility] MAIN LAB Performing Organization Address City/[facility]/Zipcode Phone Number [facility] MAIN [facility] [address] [place] [address] * HEMOGLOBIN (07/04/2018 1:15 PM) Hemoglobin 9.4 (L) 13.5 - 16.5 GM/DL [facility] MAIN LAB Specimen Blood Performing Organization Address City/State/Zipcode Phone Number MAIN LAB [address] [place] [address] * POC GLUCOSE (07/04/2018 12:52 PM) Glucose, POC 66 (L) 70 - 100 MG/DL [facility] MAIN [facility] Performing Organization Address City/State/Zipcode Phone Number MAIN LAB [address] [place] [address] * POC GLUCOSE (07/04/2018 12:19 PM) Glucose, POC 66 (L) 70 - 100 MG/DL [facility] MAIN [facility] Performing Organization Address City/State/Zipcode Phone Number MAIN LAB [address] [place] [address] * POC GLUCOSE (07/04/2018 12:17 PM) Glucose, POC 59 (L) 70 - 100 MG/DL [facility] MAIN LAB Performing Organization Address City/[facility]/Zipcode Phone Number MAIN LAB [address] [place] [address] * POC GLUCOSE (07/04/2018 10:28 AM) Glucose, POC 144 (H) 70 - 100 MG/DL MAIN LAB Performing Organization Address City/[facility]/Zipcode Phone Number MAIN LAB [address] [place] [address] * POC GLUCOSE (07/04/2018 9:31 AM) Glucose, POC 197 (H) 70 - 100 MG/DL MAIN LAB Performing Organization Address City/[facility]/Zipcode Phone Number MAIN LAB [address] [place] [address] * POC GLUCOSE (07/04/2018 8:38 AM) Glucose, POC 184 (H) 70 - 100 MG/DL [facility] MAIN [facility] Performing Organization Address City/[facility]/Zipcode Phone Number MAIN LAB [address] [place] [address] * POC GLUCOSE (07/04/2018 7:29 AM) Glucose, POC 150 (H) 70 - 100 MG/DL [facility] MAIN LAB Performing Organization Address City/State/Zipcode Phone Number MAIN LAB [address] [place] [address] * POC GLUCOSE (07/04/2018 6:31 AM) Glucose, POC 119 (H) 70 - 100 MG/DL [facility] MAIN LAB Performing Organization Address [facility] Phone Number MAIN LAB [address] [place] [address] * CBC (07/04/2018 5:47 AM) White Blood [...] MAIN LAB Specimen Blood Performing Organization Address City/[facility] Phone Number [facility] MAIN [facility] [address] [place] [address] * BASIC METABOLIC PANEL (07/04/2018 5:47 AM) [...] for questions. Specimen Blood Performing Organization Address City/[facility] Phone Number [facility] [address] [place] [address] * POC GLUCOSE (07/04/2018 5:36 AM) Glucose, POC 126 (H) 70 - 100 MG/DL [facility] MAIN LAB Performing Organization Address City/[facility] Phone Number MAIN LAB [address] [place] [address] * POC GLUCOSE (07/04/2018 4:36 AM) Glucose, POC 94 70 - 100 MG/DL K[facility] MAIN LAB Performing Organization Address City/[facility] Phone Number MAIN LAB [address] [place] [address] * POC GLUCOSE (07/04/2018 3:24 AM) Glucose, POC 120 (H) 70 - 100 MG/DL [facility] MAIN LAB Performing Organization Address [facility] Phone Number MAIN LAB [address] [place] [address] * POC GLUCOSE (07/04/2018 2:14 AM) Glucose, POC 112 (H) 70 - 100 MG/DL MAIN LAB Performing Organization Address [facility] Phone Number MAIN LAB [address] [place] [address] * POC GLUCOSE (07/04/2018 12:37 AM) Glucose, POC 126 (H) 70 - 100 MG/DL MAIN LAB Performing Organization Address [facility] Phone Number MAIN LAB [address] [place] [address] * BLOOD TYPE CONFIRMATION - ORDER ONLY IF REQUESTED BY LAB (07/04/2018 12:13 AM) ABO/RH(D) O NEG MAIN LAB Specimen Blood Performing Organization Address [facility] Phone Number MAIN LAB [address] [place] [address] * TYPE & CROSSMATCH (07/03/2018 11:48 PM) Units Ordered 1 MAIN LAB Crossmatch Expires 07/06/2018 MAIN LAB Record Check 2ND TYPE REQUIRED MAIN LAB ABO/RH(D) O NEG MAIN LAB Antibody Screen NEG MAIN LAB Electronic Crossmatch YES MAIN LAB Unit Number [id number] MAIN LAB Blood Component Type RBC,CPDA,LEUKO REDUCED MAIN LAB Unit Division 0 MAIN LAB Status OF Unit TRANSFUSED MAIN LAB Transfusion Status OK TO TRANSFUSE MAIN LAB Crossmatch Result COMPATIBLE,ELECTRONIC MAIN LAB Specimen Blood Performing Organization Address City/[facility]/Zipcode Phone Number MAIN LAB [address] [place] [address] * POC GLUCOSE (07/03/2018 11:21 PM) Glucose, POC 197 (H) 70 - 100 MG/DL K[facility] MAIN LAB Performing Organization Address City/State/Zipcode Phone Number MAIN LAB [address] [place] [address] * POC GLUCOSE (07/03/2018 10:12 PM) Glucose, POC 218 (H) 70 - 100 MG/DL K[facility] MAIN LAB Performing Organization Address City/[facility]/Zipcode Phone Number MAIN LAB [address] [place] [address] * HEMOGLOBIN (07/03/2018 10:02 PM) Hemoglobin 6.8 (L) 13.5 - 16.5 GM/DL MAIN LAB Specimen Blood Performing Organization Address City/[facility]/Zipcode Phone Number MAIN LAB [address] [place] [address] * POC GLUCOSE (07/03/2018 9:19 PM) Glucose, POC 187 (H) 70 - 100 MG/DL K[facility] MAIN LAB Performing Organization Address City/[facility]/Zipcode Phone Number MAIN LAB [address] [place] [address] * POC GLUCOSE (07/03/2018 7:40 PM) Glucose, POC 113 (H) 70 - 100 MG/DL MAIN LAB Performing Organization Address City/[facility]/Zipcode Phone Number MAIN LAB [address] [place] [address] * POC GLUCOSE (07/03/2018 6:37 PM) Glucose, POC 143 (H) 70 - 100 MG/DL K[facility] MAIN LAB Performing Organization Address City/[facility]/Zipcode Phone Number MAIN LAB [address] [place] [address] * POC GLUCOSE (07/03/2018 5:31 PM) Glucose, POC 157 (H) 70 - 100 MG/DL [facility] MAIN LAB Performing Organization Address City/State/Zipcode Phone Number [facility] MAIN LAB [address] [place] [address] * POC GLUCOSE (07/03/2018 4:35 PM) Glucose, POC 190 (H) 70 - 100 MG/DL [facility] MAIN LAB Performing Organization Address City/State/Zipcode Phone Number [facility] MAIN [facility] [address] [place] [address] * POC GLUCOSE (07/03/2018 3:36 PM) Glucose, POC 190 (H) 70 - 100 MG/DL [facility] MAIN LAB Performing Organization Address City/State/Zipcode Phone Number MAIN LAB [address] [place] [address] * HEMOGLOBIN (07/03/2018 3:25 PM) Hemoglobin 7.2 (L) 13.5 - 16.5 GM/DL [facility] MAIN [facility] Specimen Blood Performing Organization Address City/State/Zipcode Phone Number MAIN LAB [address] [place] [address] * POC GLUCOSE (07/03/2018 2:22 PM) Glucose, POC 176 (H) 70 - 100 MG/DL [facility]IN [facility] Performing Organization Address City/[facility]/Zipcode Phone Number MAIN LAB [address] [place] [address] * POC GLUCOSE (07/03/2018 1:24 PM) Glucose, POC 254 (H) 70 - 100 MG/DL [facility] MAIN [facility] Performing Organization Address City/State/Zipcode Phone Number MAIN LAB [address] [place] [address] * POC GLUCOSE (07/03/2018 12:20 PM) Glucose, POC 307 (H) 70 - 100 MG/DL [facility] MAIN [facility] Performing Organization Address City/State/Zipcode Phone Number MAIN LAB [address] [place] [address] * POC GLUCOSE (07/03/2018 10:45 AM) Glucose, POC 268 (H) 70 - 100 MG/DL [facility] MAIN [facility] Performing Organization Address City/State/Zipcode Phone Number MAIN LAB [address] [place] [address] * POC GLUCOSE (07/03/2018 9:22 AM) Glucose, POC 233 (H) 70 - 100 MG/DL [facility]IN [facility] Performing Organization Address City/State/[facility] Phone Number [facility] LAB [address] [place] [address] * SWALLOW MOTION SERIES (07/03/2018 8:59 AM) [...] on 07/03/2018 9:08 AM. Performing Organization Address [facility] Phone Number RAD RESULTS * POC GLUCOSE (07/03/2018 8:04 AM) Glucose, POC 156 (H) 70 - 100 MG/DL [facility] MAIN [facility] Performing Organization Address [facility] Phone Number [facility] MAIN LAB [address] [place] [address] * ECG-SCAN (07/03/2018 7:35 AM) Narrative Performed At Ordered by an unspecified provider. * POC GLUCOSE (07/03/2018 5:03 AM) Glucose, POC 109 (H) 70 - 100 MG/DL [facility] MAIN [facility] Performing Organization Address [facility] Phone Number [facility] MAIN LAB [address] [place] [address] * CBC (07/03/2018 4:11 AM) White Blood Cells 13.4 (H) 4.5 - 11.0 K/UL MAIN LAB RBC 2.57 (L) 4.4 - 5.5 M/UL MAIN LAB Hemoglobin 7.6 (L) 13.5 - 16.5 GM/DL [facility] MAIN [facility] Hematocrit 22.7 (L) 40 - 50 % [facility] MAIN [facility] MCV 88.3 80 - 100 FL [facility] MAIN LAB MCH 29.5 26 - 34 PG MAIN LAB MCHC 33.4 32.0 - 36.0 G/DL MAIN LAB RDW 14.1 11 - 15 % [facility] MAIN [facility] Platelet Count 395 150 - 400 K/UL [facility] MAIN LAB MPV 8.7 7 - 11 FL [facility] MAIN LAB Specimen Blood Performing Organization Address [facility] Phone Number [facility] MAIN LAB [address] [place] [address] * BASIC METABOLIC PANEL (07/03/2018 4:11 AM) [...] Address City/State/Zipcode Phone Number MAIN LAB [address] [place] [address] * POC GLUCOSE (07/03/2018 3:57 AM) Glucose, POC 132 (H) 70 - 100 MG/DL [facility] MAIN [facility] Performing Organization Address City/[facility]/Zipcode Phone Number MAIN LAB [address] [place] [address] * POC GLUCOSE (07/03/2018 3:06 AM) Glucose, POC 145 (H) 70 - 100 MG/DL [facility] MAIN [facility] Performing Organization Address City/State/Zipcode Phone Number MAIN LAB [address] [place] [address] * POC GLUCOSE (07/03/2018 2:01 AM) Glucose, POC 154 (H) 70 - 100 MG/DL [facility]IN [facility] Performing Organization Address City/State/Zipcode Phone Number MAIN LAB [address] [place] [address] * POC GLUCOSE (07/03/2018 1:05 AM) Glucose, POC 112 (H) 70 - 100 MG/DL [facility] MAIN [facility] Performing Organization Address City/State/Zipcode Phone Number MAIN LAB [address] [place] [address] * POC GLUCOSE (07/03/2018 12:35 AM) Glucose, POC 98 70 - 100 MG/DL [facility]IN [facility] Performing Organization Address City/State/Zipcode Phone Number [facility] MAIN [facility] [address] [place] [address] * POC GLUCOSE (07/03/2018 12:13 AM) Glucose, POC 78 70 - 100 MG/DL [facility]IN [facility] Performing Organization Address City/State/Zipcode Phone Number MAIN LAB [address] [place] [address] * POC GLUCOSE (07/02/2018 11:03 PM) Glucose, POC 102 (H) 70 - 100 MG/DL [facility] MAIN [facility] Performing Organization Address City/State/Zipcode Phone Number MAIN LAB [address] [place] [address] * POC GLUCOSE (07/02/2018 9:56 PM) Glucose, POC 184 (H) 70 - 100 MG/DL [facility] Performing Organization Address City/State/Zipcode Phone Number MAIN LAB [address] [place] [address] * POC GLUCOSE (07/02/2018 9:36 PM) Glucose, POC 49 (LL) 70 - 100 MG/DL [facility]IN [facility] Performing Organization Address City/State/Zipcode Phone Number MAIN LAB [address] [place] [address] * POC GLUCOSE (07/02/2018 9:32 PM) Glucose, POC 50 (L) 70 - 100 MG/DL [facility]IN [facility] Performing Organization Address City/State/Zipcode Phone Number MAIN LAB [address] [place] [address] * POC GLUCOSE (07/02/2018 9:13 PM) Glucose, POC 59 (L) 70 - 100 MG/DL [facility]IN [facility] Performing Organization Address City/State/Zipcode Phone Number MAIN LAB [address] [place] [address] * POC GLUCOSE (07/02/2018 9:11 PM) Glucose, POC 58 (L) 70 - 100 MG/DL [facility]IN [facility] Performing Organization Address City/State/Zipcode Phone Number MAIN LAB [address] [place] [address] * POC GLUCOSE (07/02/2018 7:58 PM) Glucose, POC 121 (H) 70 - 100 MG/DL [facility]IN [facility] Performing Organization Address City/State/Zipcode Phone Number MAIN LAB [address] [place] [address] * POC GLUCOSE (07/02/2018 6:56 PM) Glucose, POC 162 (H) 70 - 100 MG/DL [facility]IN [facility] Performing Organization Address City/State/Zipcode Phone Number MAIN LAB [address] [place] [address] * POC GLUCOSE (07/02/2018 6:07 PM) Glucose, POC 180 (H) 70 - 100 MG/DL [facility]IN [facility] Performing Organization Address City/State/Zipcode Phone Number MAIN LAB [address] [place] [address] * POC GLUCOSE (07/02/2018 4:52 PM) Glucose, POC 195 (H) 70 - 100 MG/DL [facility] MAIN [facility] Performing Organization Address City/[facility] Phone Number MAIN LAB [address] [place] [address] * POC GLUCOSE (07/02/2018 4:24 PM) Glucose, POC 204 (H) 70 - 100 MG/DL [facility] MAIN [facility] Performing Organization Address City/[facility]/Zipcode Phone Number MAIN LAB [address] [place] [address] * POC GLUCOSE (07/02/2018 3:09 PM) Glucose, POC 212 (H) 70 - 100 MG/DL [facility] MAIN [facility] Performing Organization Address City/State/Zipcode Phone Number MAIN LAB [address] [place] [address] * POC GLUCOSE (07/02/2018 2:13 PM) Glucose, POC 204 (H) 70 - 100 MG/DL [facility]IN [facility] Performing Organization Address City/State/Zipcode Phone Number MAIN LAB [address] [place] [address] * POC GLUCOSE (07/02/2018 12:59 PM) Glucose, POC 235 (H) 70 - 100 MG/DL [facility]IN [facility] Performing Organization Address [facility] Phone Number [facility] MAIN [facility] [address] [place] [address] * POC GLUCOSE (07/02/2018 12:02 PM) Glucose, POC 244 (H) 70 - 100 MG/DL [facility] MAIN [facility] Performing Organization Address [facility] Phone Number MAIN LAB [address] [place] [address] * POC GLUCOSE (07/02/2018 11:10 AM) Glucose, POC 229 (H) 70 - 100 MG/DL [facility]IN [facility] Performing Organization Address [facility] Phone Number MAIN LAB [address] [place] [address] * ABDOMEN AP ONLY (07/02/2018 10:20 AM) [...] on 07/02/2018 11:09 AM. Performing Organization Address City/[facility] Phone Number RAD RESULTS * POC GLUCOSE (07/02/2018 10:14 AM) Glucose, POC 212 (H) 70 - 100 MG/DL [facility] MAIN [facility] Performing Organization Address City/[facility] Phone Number MAIN LAB [address] [place] [address] * POC GLUCOSE (07/02/2018 9:22 AM) Glucose, POC 209 (H) 70 - 100 MG/DL MAIN LAB Performing Organization Address City/[facility] Phone Number MAIN LAB [address] [place] [address] * POC GLUCOSE (07/02/2018 8:04 AM) Glucose, POC 186 (H) 70 - 100 MG/DL [facility] MAIN [facility] Performing Organization Address City/[facility] Phone Number MAIN LAB [address] [place] [address] * POC GLUCOSE (07/02/2018 6:05 AM) Glucose, POC 142 (H) 70 - 100 MG/DL MAIN LAB Performing Organization Address [facility] Phone Number MAIN LAB [address] [place] [address] * POC GLUCOSE (07/02/2018 5:00 AM) Glucose, POC 125 (H) 70 - 100 MG/DL [facility] MAIN [facility] Performing Organization Address City/[facility] Phone Number MAIN LAB [address] [place] [address] * PHOSPHORUS (07/02/2018 4:15 AM) Phosphorus 2.6 2.0 - 4.0 MG/DL MAIN LAB Specimen Blood Performing Organization Address City/[facility] Phone Number MAIN LAB [address] [place] [address] * MAGNESIUM (07/02/2018 4:15 AM) Magnesium 1.9 1.6 - 2.6 mg/dL MAIN LAB Specimen Blood Performing Organization Address City/[facility]/Zipcode Phone Number MAIN LAB [address] [place] [address] * IONIZED CALCIUM (07/02/2018 4:15 AM) Ionized Calcium 1.14 1.0 - 1.3 MMOL/L MAIN LAB Specimen Blood Performing Organization Address City/[facility] Phone Number MAIN LAB [address] [place] [address] * CULTURE-BLOOD W/SENSITIVITY (07/02/2018 4:15 AM) Battery Name BLOOD CULTURE MAIN LAB Specimen Description BLOOD MAIN LAB RIGHT RADIAL ARTERIAL Special Requests NONE MAIN LAB Culture NO GROWTH 5 DAYS [facility] MAIN [facility] Report Status FINAL MAIN LAB 07/08/2018 Specimen Blood Performing Organization Address [facility]/Zipcode Phone Number MAIN LAB [address] [place] [address] * CBC (07/02/2018 4:15 AM) White Blood [...] MAIN LAB Specimen Blood Performing Organization Address [facility] Phone Number MAIN LAB [address] [place] [address] * BASIC METABOLIC PANEL (07/02/2018 4:15 AM) [...] City/State/Zipcode Phone Number [facility] MAIN [facility] [address] [place] [address] * POC GLUCOSE (07/02/2018 4:00 AM) Glucose, POC 129 (H) 70 - 100 MG/DL [facility] MAIN [facility] Performing Organization Address City/[facility]/Zipcode Phone Number [facility] MAIN [facility] [address] [place] [address] * POC GLUCOSE (07/02/2018 3:06 AM) Glucose, POC 116 (H) 70 - 100 MG/DL [facility] MAIN [facility] Performing Organization Address City/[facility]/Zipcode Phone Number [facility] MAIN [facility] [address] [place] [address] * POC GLUCOSE (07/02/2018 2:02 AM) Glucose, POC 113 (H) 70 - 100 MG/DL [facility]IN [facility] Performing Organization Address City/[facility]/Zipcode Phone Number [facility] MAIN [facility] [address] [place] [address] * POC GLUCOSE (07/02/2018 1:12 AM) Glucose, POC 147 (H) 70 - 100 MG/DL [facility] MAIN [facility] Performing Organization Address City/[facility]/Zipcode Phone Number [facility] MAIN [facility] [address] [place] [address] * POC GLUCOSE (07/02/2018 12:05 AM) Glucose, POC 155 (H) 70 - 100 MG/DL [facility] MAIN [facility] Performing Organization Address City/[facility]/Zipcode Phone Number [facility] MAIN [facility] [address] [place] [address] * POC GLUCOSE (07/01/2018 11:03 PM) Glucose, POC 128 (H) 70 - 100 MG/DL [facility] MAIN [facility] Performing Organization Address City/[facility] Phone Number MAIN LAB [address] [place] [address] * POC GLUCOSE (07/01/2018 10:07 PM) Glucose, POC 208 (H) 70 - 100 MG/DL [facility] MAIN [facility] Performing Organization Address City/[facility] Phone Number MAIN LAB [address] [place] [address] * POC GLUCOSE (07/01/2018 9:18 PM) Glucose, POC 184 (H) 70 - 100 MG/DL MAIN LAB Performing Organization Address [facility] Phone Number MAIN LAB [address] [place] [address] * MRI HEAD WO CONTRAST (07/01/2018 9:10 [...] the posterior medial left temporal lobe. 3. Nondenominational of flow void within the right M1 [...] changes. Major vascular flow voids of the cocop[place] of Tse and dural venous sinuses are preserved. There is roman catholic of flow void in the right [...] changes. Major vascular flow voids of the [place] of Tse and dural venous sinuses are preserved. There is roman catholic of flow void in the right [...] the posterior medial left temporal lobe. 3. Nondenominational of flow void within the right M1 segment, previously noted to be occluded. Performing Organization Address City/[facility] Phone Number [facility] RAD RESULTS * POC GLUCOSE (07/01/2018 8:07 PM) Glucose, POC 184 (H) 70 - 100 MG/DL MAIN LAB Performing Organization Address City/State/[facility] Phone Number MAIN LAB [address] [place] [address] * POC GLUCOSE (07/01/2018 6:59 PM) Glucose, POC 190 (H) 70 - 100 MG/DL [facility] MAIN [facility] Performing Organization Address [facility] Phone Number [facility] MAIN [facility] [address] [place] [address] * POC GLUCOSE (07/01/2018 6:03 PM) Glucose, POC 169 (H) 70 - 100 MG/DL [facility] MAIN [facility] Performing Organization Address [facility] Phone Number MAIN LAB [address] [place] [address] * POC GLUCOSE (07/01/2018 5:10 PM) Glucose, POC 154 (H) 70 - 100 MG/DL [facility] MAIN [facility] Performing Organization Address [facility] Phone Number MAIN LAB [address] [place] [address] * POC GLUCOSE (07/01/2018 4:04 PM) Glucose, POC 195 (H) 70 - 100 MG/DL [facility] MAIN [facility] Performing Organization Address [facility] Phone Number MAIN LAB [address] [place] [address] * BLOOD GASES, ARTERIAL (07/01/2018 3:06 PM) pH-Arterial 7.34 (L) 7.35 - 7.45 MAIN LAB pCO2-Arterial 39 35 - 45 MMHG [facility] MAIN LAB pO2-Arterial 102 (H) 80 - 100 MMHG [facility] MAIN LAB Base Deficit-Arterial 4.6 MMOL/L MAIN LAB O2 Sat-Arterial 97.5 95 - 99 % MAIN LAB Wxsccokkchj-JNI-Xgd 20.6 (L) 21 - 28 MMOL/L MAIN LAB Specimen Blood, arterial - Blood Performing Organization Address [facility] Phone Number MAIN LAB [address] [place] [address] * POC GLUCOSE (07/01/2018 3:05 PM) Glucose, POC 195 (H) 70 - 100 MG/DL [facility] MAIN [facility] Performing Organization Address [facility] Phone Number MAIN LAB [address] [place] [address] * CT HEAD WO CONTRAST (07/01/2018 2:46 [...] 72.37 % OTHER OUTSIDE LAB AV index (nooksack) 0.56 OTHER OUTSIDE LAB E/A ratio 1.35 OTHER OUTSIDE LAB E/E' ratio 10.67 OTHER OUTSIDE LAB CV ECHO PV WANT AD CLERK Yasir RN OTHER OUTSIDE LAB LV mass 118.49 96 - 200 g OTHER OUTSIDE LAB RWT 0.36 <=0.42 OTHER OUTSIDE LAB TV rest pulmonary artery 22 mmHg OTHER OUTSIDE LAB pressure Right Heart Systolic TDI 0.110 m/s OTHER OUTSIDE LAB S' Cardiology Ultrasound Siemens [id number] OTHER OUTSIDE LAB Machine ECHO EF 60 [...] study available for comparison Performing Organization Address City/[facility]/Zipcode Phone Number OTHER OUTSIDE LAB * CULTURE-BLOOD W/SENSITIVITY (07/01/2018 1:04 PM) Battery Name BLOOD CULTURE [facility] MAIN LAB Specimen Description BLOOD MAIN LAB LEFT ANTECUBITAL Special Requests NONE [facility] MAIN LAB Culture NO GROWTH 5 DAYS [facility] MAIN [facility] Report Status FINAL [facility] MAIN LAB 07/07/2018 Specimen Blood Performing Organization Address City/[facility] Phone Number [facility] [address] [place] [address] * POC GLUCOSE (07/01/2018 1:02 PM) Glucose, POC 169 (H) 70 - 100 MG/DL [facility] MAIN [facility] Performing Organization Address [facility] Phone Number [facility] MAIN [facility] [address] [place] [address] * UA REFLEX CULTURE LABEL (07/01/2018 12:53 PM) UA Reflex Culture LAB LABEL [facility] MAIN LAB Specimen Urine Performing Organization Address City/[facility] Phone Number MAIN LAB [address] [place] [address] * URINALYSIS MICROSCOPIC REFLEX TO CULTURE (07/01/2018 [...] MAIN LAB Specimen Urine Performing Organization Address [facility] Phone Number MAIN LAB [address] [place] [address] * URINALYSIS DIPSTICK REFLEX TO CULTURE (07/01/2018 12:53 PM) Color,UA STRAW [facility] MAIN [facility] Turbidity,UA CLEAR CLEAR-CLEAR [facility] MAIN [facility] Specific Start-Urine 1.018 1.003 - 1.035 [facility] MAIN LAB [...] MAIN LAB Specimen Urine Performing Organization Address [facility] Phone Number MAIN LAB [address] [place] [address] * LACTIC ACID(LACTATE) (07/01/2018 12:50 PM) Lactic Acid 1.5 0.5 - 2.0 MMOL/L MAIN LAB Performing Organization Address [facility] Phone Number MAIN LAB [address] [place] [address] * BETA HYDROXYBUTYRATE (KETONES) (07/01/2018 12:50 PM) Beta Hydroxybutyrate 0.1 <0.3 MMOL/L [facility] MAIN LAB Comment: Beta hydroxybutyrate (BOHB) is the most abundant ketone (78%), followed by acetoacetate (20%) and acetone (2%).Measurement BOHB is recommended to assess ketones in DKA. Expected BOHB Results for DKA: Initial presentation high/increasing During treatment decreasing Resolved decreasing/normal Performing Organization Address [facility] Phone Number MAIN LAB [address] [place] [address] * LACTIC ACID (BG - RAPID LACTATE) (07/01/2018 12:50 PM) Lactic Acid,BG 1.5 0.5 - 2.0 MMOL/L MAIN LAB Specimen Blood Performing Organization Address City/[facility]/Zipcode Phone Number [facility] MAIN [facility] [address] [place] [address] * CBC AND DIFF (07/01/2018 12:50 PM) [...] MAIN LAB Specimen Blood Performing Organization Address City/[facility]/Zipcode Phone Number [facility] MAIN [facility] [address] [place] [address] * IONIZED CALCIUM (07/01/2018 12:50 PM) Ionized Calcium 1.14 1.0 - 1.3 MMOL/L MAIN LAB Specimen Blood Performing Organization Address City/[facility]/Zipcode Phone Number [facility] MAIN [facility] [address] [place] [address] * PHOSPHORUS (07/01/2018 12:50 PM) Phosphorus 2.6 2.0 - 4.0 MG/DL [facility] MAIN [facility] Specimen Blood Performing Organization Address [facility] Phone Number [facility] MAIN [facility] [address] [place] [address] * MAGNESIUM (07/01/2018 12:50 PM) Magnesium 2.0 1.6 - 2.6 mg/dL [facility] MAIN [facility] Specimen Blood Performing Organization Address [facility] Phone Number [facility] MAIN [facility] [address] [place] [address] * LIPID PROFILE (07/01/2018 12:50 PM) Cholesterol [...] 130 mg/dL. Specimen Blood Performing Organization Address [facility] Phone Number [facility] MAIN [facility] [address] [place] [address] * COMPREHENSIVE METABOLIC PANEL (07/01/2018 12:50 PM) [...] Address City/State/Zipcode Phone Number MAIN LAB [address] [place] [address] * HEMOGLOBIN A1C (07/01/2018 12:50 PM) Hemoglobin A1C 17.4 (H) 4.0 - 6.0 % MAIN LAB Comment: The ADA recommends that most patients with type 1 and type 2 diabetes maintain an A1c level <7%. Specimen Blood Performing Organization Address City/[facility] Phone Number MAIN LAB [address] [place] [address] * IR ARTERIOGRAM NEURO (07/01/2018 12:29 PM) [...] Fentanyl 25 mcg Contrast - 100 cc [id number] Total mGy - 421 Anesthesia:conscious sedation Consent [...] the sheath was advanced over a 5 Lithuanian 125 cm Vert catheter over a 180 cm 0.035 Mattoon wire over the aortic arch and into [...] therefore, hemostasis was achieved using an 8 Lithuanian Angioseal closure device followed by manual pressure [...] Fentanyl 25 mcg Contrast - 100 cc [id number] Total mGy - 421 Anesthesia: conscious sedation [...] the sheath was advanced over a 5 Lithuanian 125 cm Vert catheter over a 180 cm 0.035 Mattoon wire over the aortic arch and into [...] therefore, hemostasis was achieved using an 8 Lithuanian Angioseal closure device followed by manual pressure [...] teamat 11:51 AM on 07/01/2018 by the claims vice president in consultation with TALIA BOSTON [...] at 11:51 AM on 07/01 by the claims vice president in consultation with TALIA BOSTON [...] teamat 11:51 AM on 07/01/2018 by the claims vice president in consultation with TALIA BOSTON [...] at 11:51 AM on 07/01 by the claims vice president in consultation with TALIA BOSTON [...] teamat 11:51 AM on 07/01/2018 by the claims vice president in consultation with TALIA BOSTON [...] performed Comparison: No prior comparisons. FINDINGS: Dr. LUKE DARVIN, M.D. has personally reviewed these images and [...] at 11:51 AM on 07/01 by the claims vice president in consultation with TALIA BOSTON [...] HOURS PRN, Starting 07/06/18 at 1135, Until Fri07/09/18 at 1756, Pain non-opioid: may be used [...] BEDTIME DAILY, First 20:54 CDT dose on Fri18 at 2100, Until Discontinued Given 07/07/2018 40 [...] 0649, Until Padma 07/09/18 at 1756, Constipation ID, Hold for loose stools cefTRIAXone (ROCEPHIN) IVP [...] mg, Intravenous, EVERY 6 HOURS PRN, Starting Fri07/01/18 at 2336, Until Padma 07/09/18 at 1151, [...] , , administer 4 units insulin, at , 03* administer 3 units. -POC glucose 301-350mg/dL [...] TIMES DAILY WITH MEALS, First dose on Tu07/07/18 at 1800, Until Discontinued, Hold if NPO [...] recheck BG every 1 hr; when > vg=995 mg/dL, restart insulin infusion at 50% of most recent rate 2. If BG 50-74 mg/dL: a. HOLD INSULIN INFUSION and administer amp (12.5 g) D50 IV; recheck BG every 15 minutes until > or=90 mg/dL. b. Then, recheck BG every 1 hr; when > li=974 mg/dL, restart insulin infusion at 50% of most recent rate. 3. If BG 75-99 mg/dL: a. HOLD INSULIN INFUSION. Recheck BG every 15 minutes until BG reaches or remains > or=90 mg/dL. b. Then, recheck BG every 1 hr; when > as=802 mg/dL, restart insulin infusion at 75% of [...] at 4PM is 120 mg/dL, the total roll changer 2 hours is -30 mg/dL; however, the hourly change is -30 mg/dL 2 hours=-15 mg/dL/hr. BG 100-119 mg/dl BG 120-159 mg/dL BG 160-199 mg/dL BG > dr=710 INSTRUCTIONS++ BG increased by BG increased Increase [...] CDT 30 mEq, Oral, ONCE, 1 dose, [facility] 07/09/18 at 0730, Do NOT break [...]
--- OUTSIDE RECORDS SUMMARY | 2018-08-22 18:03 | XMS REPORT | Encounter Summary ---
Author Author [facility] Organization [facility] Address Unknown Phone Unavailable Care Team Providers Care Baggage Checker Name Role Phone Damien Caceres MD Unavailable Melo Adame MD Unavailable Unavailable Alvarez Ozuna NP PCP Hilary Davenport RN Unavailable Unavailable Encounter Details Date Type Department Care Team Description 07/08/2018 Procedure Pass Gastrointenstinal Endoscopy [address] [place], [place] [id number] Social History Tobacco Use Types Packs/Day Years [...]
--- OUTSIDE RECORDS SUMMARY | 2018-08-22 18:05 | XMS REPORT | Encounter Summary ---
Author Author [facility] Organization [facility] Address Unknown Phone Unavailable Care Team Providers Care Lead C Developer Name Role Phone Damien Caceres MD Unavailable Melo Adame MD Unavailable Unavailable Lulu Ozuna NP PCP Hilary Davenport RN Unavailable Unavailable Reason for Visit * Auth/Cert Status Reason Specialty Diagnoses / Referred By Referred To Procedures Contact Contact Diagnoses Stroke (HCC) Stroke Encounter Details Date Type Department Care Team Description 07/08/2018 Surgery Gastrointenstinal Clara Carolina MD ESOPHAGOGASTRODUODENOSCOP Endoscopy [address] [place] [address] [place] [address] [phone] Social History Tobacco Use Types Packs/Day Years [...] s/p suprapubic catheter that was admitted at [facility] for urosepsis, DKA, A fib with RVR requiring cardizem ggt that was transferred for concerns for stroke. Admitted on 06/28 to [facility] with week history of cough, SOB. Found to have UTI with urosepsis and DKA with CO2 of 8, BG in 600s. Admitted to the ICU at [facility]. Started on CTX and Insulin [...] language) 2=neither correct 2 1c. 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, tape recorder repairer and release non-paretic hand (other 1 step [...] tPA given unclear window. Was transferred to [facility] for evaluation. Was given ativan 2mg enroute [...] stroke on 07/15. ECHO showed no thrombus. SUPERVISOR BEET END was following and pt graduated to regular [...] hospital course Consults: Cardiology, Endocrinology, GI and PT/OT/SUPERVISOR BEET END, rehab, urology Patient Disposition: [facility] Facility Patient instructions/medications: AMB REFERRAL TO GASTROENTEROLOGY [...] home, please feel free to contact the Blasting Contract Miner at [phone]. Your last blood pressure was BP: 171/73, [...] Report These Signs and Symptoms STROKE Call [phone] for the following symptoms: *Sudden numbness or weakness of the face, arm or leg, especially on one side of the body. *Sudden confusion, trouble speaking or understanding. *Sudden trouble seeing in one or both eyes. *Sudden trouble walking, dizziness, loss of balance or coordination. *Sudden, severe headache with no known cause. Return Appointment For Neurology scheduling contact [phone] For Neurosurgery appointments call [phone] Questions About Your Stay STANDARD For questions or concerns regarding your hospital stay: -DURING BUSINESS HOURS (8:00 AM - 4:30 PM): Call [phone] and ask to be transferred to your discharge attending physician. -AFTER BUSINESS HOURS (4:30 PM - 8:00 AM, on weekends, or holidays): Call [phone] and ask the metal coater operator to page the on-call doctor for the discharge attending physician. Discharging attending physician: KEYSHAWN GOMEZ [[id number]] Complete if patient is going to a [facility] Facility I certify that the patient requires skilled care Yes The patient's stay is expected to be less than 30 days Yes I will be in charge of patient in retirement No Cardiac Diet Limiting unhealthy fats and [...] home, you can call a dietitian at [phone]. Modified Liquids Your fluids should be thickened to a consistency of nectar. This is as thick as a milkshake or tomato juice. If you have questions about your diet after you go home, you can call a dietitian at [phone]. Current Discharge Medication List START taking these [...] CDT Return Patient with Lulu Perry MD [facility] ([facility]) [facility] [address] [facility] [id number] Additional appointment instructions: Please follow up with your PCP for repeat labs, monitoring your blood pressure, and monitoring your blood glucose Please follow up with the line helper at [facility] for follow up visit. Please follow [...] blood glucose Please follow up with the line helper at [facility] for follow up visit. Please follow [...] - 07/09/2018 2:57 PM CDT Phoned [facility] [phone] and gave report to Perla GOODMAN to receive patient. Informed her that patient to transport at 13:00. By 15:00 no transport arrived, phoned facility above and it was reported that ride was on the way. FSBS=69 checked prior to transport. Reported to application tester for Neurology, juice x 2 given FSBS rechecked=87. Patient left unit via wheelchair and carry all driver who was given chart for transport. [...] Range Color,UA STRAW Turbidity,UA CLEAR CLEAR-CLEAR Specific [place]-Urine 1.005 1.003 - 1.035 pH,UA 8.0 5.0 [...] DKA resolved -A1c 17.4 on 07/01/2018 uncontrolled -RIBBON INKER regimen: levemir 40 units QHS, Novolog 20-25 [...] up with local endocrinology in [facility] Subjective Valdez Anthony is a 57 [...] Range Color,UA STRAW Turbidity,UA CLEAR CLEAR-CLEAR Specific [place]-Urine 1.005 1.003 - 1.035 pH,UA 8.0 5.0 [...] Intake: Improving, Marginally Adequate Estimated Calorie Needs: 3150-4649 (25-28 kcal/kg desired wt) Estimated Protein Needs: 85-100 (1.2-1.4 g/kg desired wt) Oral Diet Order: Diabetic 1186-0778 Kcal/day (60 g Carb/meal, 30 g Carb/HS snack ), [place] Thick Liquids Comments: 57 y.o. male with new onset Atrial Fibrillation with RVR, HTN, HLD, T2DM, Diabetic Retinopathy, OD Blindness, Neovascular Glaucoma, Prostate Cancer s/p prostatectomy, Urinary Retention s/p suprapubic catheter that was admitted at [facility] for urosepsis, DKA, A fib [...] and underwent via video- swallow eval with SUPERVISOR BEET END findings of moderate oropharyngeal dysphagia and baseline cognitive deficits. SUPERVISOR BEET END working with pt and diet has advanced from nectar thick full liquids to 60g/meal consistent carb diet with nectar thick fluids. Per had 100% omelet for breakfast today (refused per RN) and sandwich ordered by for lunch. No current wt to assess; unable to actually see pt today as he was bundled in his blankets. Pt has orders for no sugar added [place] breakfast with nectar thick milk at breakfast and per RN throughout day as needed. Followed up with call center who says orders not printing to meal ticket. denies need for diet education Recommendation: Encourage good meal intakes at least 3 times per day with adequate protein source each meal on 60g/meal consistne carb diet. Offer no sugar added [place] Breakfast shakes made with nectar thick milk at breakfast and PRN. Intervention / Plan: Monitor po intake tolerance and adequacy monitor wt trends, labs, meds and GI status Nutrition Diagnosis: Altered GI function Etiology: swallowing and cognitive deficits Signs & Symptoms: SUPERVISOR BEET END findings and nectar thick liquids with diabetic diet Goals: Patient to consume >75% of meals/supplements Time Frame: Within 72 Hours Status: Met Patient to consume >85% of meals/supplements Time Frame: Throughout Stay Tata Daniels, MS,RD, LD, CNSC *[id number] * James Shook, DO - 07/09/2018 [...] prostate cancer s/p prostatectomy who presents to [facility] as a transfer from [facility] [place] for stroke. OSH course: Pt presented to [...] tPA given unclear window. Was transferred to [facility] for evaluation. Was given ativan 2mg enroute [...] EF, LA size 3.5cm, no thrombus - SUPERVISOR BEET END following -> recommend regular diet w/ nectar [...] to f/u w/ endo @ [facility] outpt basis -> goal BS 100-140 [...] -> develop stroke and was transferred to [facility] - Was placed on PO cardizem >Will [...] 07/01 - 07/05 Dispo: discharge today to [facility] @ 1300 Patient was seen and discussed [...] Range Color,UA STRAW Turbidity,UA CLEAR CLEAR-CLEAR Specific [place]-Urine 1.005 1.003 - 1.035 pH,UA 8.0 5.0 [...] (Last 24 hours): FSBS (Manual): 96 (07/08/18 4889) Glucose: (!) 118 (07/09/18 0547) POC Glucose [...] facility today Keyshawn Gomez MD * Melo Leonardo, MAXINE - 07/09/2018 [...] during pain medication administration. * Chica Kim, RN - 07/08/2018 8:22 PM CDT Two [...] prostate cancer s/p prostatectomy who presents to [facility] as a transfer from [facility] for stroke. OSH course: Pt [...] tPA given unclear window. Was transferred to [facility] for evaluation. Was given ativan 2mg enroute [...] EF, LA size 3.5cm, no thrombus - SUPERVISOR BEET END following -> recommend regular diet w/ nectar [...] to f/u w/ endo @ [facility] outpt basis -> goal BS 100-140 [...] -> develop stroke and was transferred to [facility] - Was placed on PO cardizem > [...] fluids, replace lytes PRN, ada diet Ppx: [id number] Heparin Sq Q8, SCDs Code: Full Dispo: continue admission to neuro for stroke/concern for GI bleed -> to SNF on discharge Patient was seen and discussed with Dr. Gomze. James Shook, PGY-2 Subjective: Valdez Anthony is [...] (07/08/18 0553) POC Glucose (Download): 75 (07/08/18 1357) Radiology and Other Diagnostics Review: Pertinent radiology [...] pathology results. Roberto Dutta GI fellow Pager [phone] 07/08/2018 3:39 PM * Eloy Higgins RN [...] After 5:00 pm, holidays or weekends call [phone] and ask for the GI Doctor application tester. * Barbi Deluna MD - 07/08/2018 12:10 [...] DKA resolved -A1c 17.4 on 07/01/2018 uncontrolled -RIBBON INKER regimen: levemir 40 units QHS, Novolog 20-25 [...] up with local endocrinology in [facility] Subjective Valdez Anthony is a 57 [...] s/p suprapubic catheter that was admitted at [facility] for urosepsis, DKA, A fib [...] PROGRESS NOTE Patient Name: Valdez Anthony Room/Bed: DA7975/01 Admitting Diagnosis: Stroke Past Medical History: Diagnosis [...] occasionally in community. Prior Function Level Of [place]: Independent with ADLs and functional transfers Lives [...] Bed mobility, Ambulation, Stairs Therapist: ERIC Whalen/Cesia [id number] Date: 07/08/2018 * Whit Guadarrama MS,CCC-SUPERVISOR BEET END - 07/08/2018 9:38 AM CDT SPEECH-LANGUAGE PATHOLOGY NO TREATMENT NOTE Chart reviewed and discussed in interdisciplinary rounds. Pt NPO for colonoscopy this date. SUPERVISOR BEET END will continue to follow. Therapist: Whit Guadarrama MS,CCC-SUPERVISOR BEET END [id number] Date: 07/08/2018 * Barbi Deluna MD - [...] DKA resolved -A1c 17.4 on 07/01/2018 uncontrolled -RIBBON INKER regimen: levemir 40 units QHS, Novolog 20-25 [...] up with local endocrinology in [facility] Subjective Valdez Anthony is a 57 [...] prostate cancer s/p prostatectomy who presents to [facility] as a transfer from [facility] for stroke. OSH course: Pt [...] tPA given unclear window. Was transferred to [facility] for evaluation. Was given ativan 2mg enroute [...] EF, LA size 3.5cm, no thrombus - SUPERVISOR BEET END following -> recommend regular diet w/ nectar [...] to f/u w/ endo @ [facility] outpt basis -> goal BS 100-140 [...] -> develop stroke and was transferred to [facility] - Was placed on PO cardizem > [...] clear liquid/ada diet for procedure tomorrow Ppx: [id number] Heparin Sq Q8, SCDs Code: Full Dispo: [...] provide intervention as indicated. Irma Blakely, OTR/L [id number] * Whit Guadarrama MS,CCC-SUPERVISOR BEET END - 07/07/2018 9:50 AM CDT SPEECH-LANGUAGE PATHOLOGY NO TREATMENT NOTE Chart reviewed and discussed in interdisciplinary rounds. Pt NPO for colonoscopy this date. SUPERVISOR BEET END will continue to follow. Therapist: Whit Guadarrama MS,CCC-SUPERVISOR BEET END [id number] Date: 07/07/2018 * Shira Welch RN - [...] DKA resolved -A1c 17.4 on 07/01/2018 uncontrolled -RIBBON INKER regimen: levemir 40 units QHS, Novolog 20-25 [...] up with local endocrinology in [facility] Subjective Valdez Anthony is a 57 [...] Color,UA YELLOW Turbidity,UA 2+ (A) CLEAR-CLEAR Specific [place]-Urine 1.017 1.003 - 1.035 pH,UA 5.0 5.0 [...] prostate cancer s/p prostatectomy who presents to [facility] as a transfer from [facility] for stroke. OSH course: Pt [...] tPA given unclear window. Was transferred to [facility] for evaluation. Was given ativan 2mg enroute [...] EF, LA size 3.5cm, no thrombus - SUPERVISOR BEET END following -> recommend regular diet w/ nectar [...] to f/u w/ endo @ [facility] outpt basis -> goal BS 100-140 [...] fluids, replace lytes PRN, ADA diet Ppx: [id number] Heparin Sq Q8, SCDs Code: Full Dispo: [...] asked these questions and provided answers by SUPERVISOR BEET END) Speech: slurred speech w/ comprehension intact to [...] Color,UA YELLOW Turbidity,UA 2+ (A) CLEAR-CLEAR Specific [place]-Urine 1.017 1.003 - 1.035 pH,UA 5.0 5.0 [...] 0427) POC Glucose (Download): (!) 196 (07/06/18 2406) Radiology and Other Diagnostics Review: Pertinent radiology [...] due to out of window), transferred to [facility] and found to have R M1 [...] established Keyshawn Gomez MD * Whit Guadarrama MS,CCC-SUPERVISOR BEET END - 07/06/2018 12:14 PM CDT Formatting of [...] address dysphagia and cognitive communication concerns. Ongoing SUPERVISOR BEET END at next level of care. Consistent supervision [...] city, stating we are located at [facility] [place]. Verbal Problem Solving Comments: Functional problem solving: [...] baseline to call for assistance if needed. [place] Cognitive Assessment (MoCA), Version 7.1 Subtest / [...] s/p suprapubic catheter that was admitted at [facility] for urosepsis, DKA, A fib [...] the posterior medial left temporal lobe. 3. Muslim of flow void within the right M1 [...] spoon/cup and pureed /mech soft solids w/ SUPERVISOR BEET END only w/ less than 5% s/s of [...] from respiratory status changes. Therapist: Whit Guadarrama MS,CCC-SUPERVISOR BEET END [id number] Date: 07/06/2018 * Aria Mccoy, PT - [...] s/p suprapubic catheter that was admitted at [facility] for urosepsis, DKA, A fib [...] spoon/cup and pureed /mech soft solids w/ SUPERVISOR BEET END only w/ less than 5% s/s of [...] speech therapy post acute hospitalization. Therapist: Cesia Hatfield/CCC-SUPERVISOR BEET END (Pager [phone]; Voalte: [phone]) Date: 07/05/2018 * Darcy Goodrich MD - [...] s/p suprapubic catheter that was admitted at [facility] for urosepsis, DKA, A fib [...] EF, LA size 3.5cm, no thrombus - SUPERVISOR BEET END to eval and treat - Video swallow [...] - Rocephin 07/01 - 07/05 FEN: - [place] thick PO fluids - Daily BMP - [...] 0525) POC Glucose (Download): (!) 139 (07/05/18 0620) Radiology and other Diagnostics Review: Pertinent radiology reviewed. Darcy Goodrich MD Neurology PGY-4 Pager Neurology application tester pager [phone] Associated attestation - Diego Gutierrez MD - [...] DKA resolved -A1c 17.4 on 07/01/2018 uncontrolled -RIBBON INKER regimen: levemir 40 units QHS, Novolog 20-25 [...] up with local endocrinology in [facility] This is an individual we are [...] s/p suprapubic catheter that was admitted at [facility] for urosepsis, DKA, A fib [...] EF, LA size 3.5cm, no thrombus - SUPERVISOR BEET END to eval and treat - Video swallow [...] - Rocephin 07/01 - 07/05 FEN: - [place] thick PO fluids - Daily BMP - [...] 20,000 Units/ sodium bicarbonate 650 mg(#) PRN (Towel Rolling Machine Operator from Rx) Vital Signs: Last Filed in [...] the posterior medial left temporal lobe. 3. Muslim of flow void within the right M1 segment, previously noted to be occluded. Munira Ortega DO Pager [phone] Associated attestation - Diego Gutierrez MD - [...] while, received [place] without a clear etiology of his anemia, also received another endoscopy [facility] OSH again without a clear upper GI [...] DKA resolved -A1c 17.4 on 07/01/2018 uncontrolled -RIBBON INKER regimen: levemir 40 units QHS, Novolog 20-25 [...] up with local endocrinology in [facility] Anemia This patient is having ongoing [...] mL IV drip (std conc) Stopped (07/04/18 4849) PRN and Respiratory Meds:acetaminophen Q6H PRN, bisacodyl QDAY PRN, hydrALAZINE Q6H PRN, labetalol (NORMODYNE; TRANDATE) injection Q6H PRN, pancrelipase 20,000 Units/ sodium bicarbonate 650 mg(#) PRN (Towel Rolling Machine Operator from Rx) Objective Vital Signs: Last Filed [...] Screen NEG Electronic Crossmatch YES Unit Number [id number] Blood Component Type RBC,CPDA,LEUKO REDUCED Unit Division [...] suprapubic catheter that was admitted at [facility] for urosepsis, DKA, A fib [...] EF, LA size 3.5cm, no thrombus - SUPERVISOR BEET END to eval and treat - Video swallow [...] - UA negative for UTI FEN: - [place] thick PO fluids - Daily BMP - [...] 20,000 Units/ sodium bicarbonate 650 mg(#) PRN (Towel Rolling Machine Operator from Rx) Vital Signs: Last Filed in [...] the posterior medial left temporal lobe. 3. Muslim of flow void within the right M1 [...] s/p suprapubic catheter that was admitted at [facility] for urosepsis, DKA, A fib [...] lift to chair for weekend, with staff training and development manager. Dicussed mobility recommendation with bedside RN. RECOMMENDATIONS: PT Discharge Recommendations PT Discharge Recommendations: Inpatient Setting Therapist: Dolores Sampson, PT Date: 07/03/2018 * Mary Grace Stanton OT - 07/03/2018 1:33 PM CDT Formatting of this note may be different from the original. OCCUPATIONAL THERAPY PROGRESS NOTE Patient Name: Valdez Anthony Room/Bed: [place] [address] Admitting Diagnosis: Stroke Past Medical History: Diagnosis [...] non verbal with left hemiplegia. Transferred to [facility]. R MCA stroke s/p thrombectomy, stent 07/01. [...] occasionally in community. Prior Function Level Of [place]: Independent with ADLs and functional transfers Lives [...] s/p suprapubic catheter that was admitted at [facility] for urosepsis, DKA, A fib [...] Fed Thin Liquid: 1 oz, Cup, Straw [place] Thick Liquid: Cup, Straw Honey Thick Liquid: [...] spoon/cup and pureed /mech soft solids w/ SUPERVISOR BEET END only w/ less than 5% s/s of aspiration. Goal : Pt will participate in cognitive-communication assessment given mod cues. Therapist: BIANCA Lamb L/CCC-SUPERVISOR BEET END Voalte: [id number] Date: 07/03/2018 * Alex Medel, RN - [...] PM CDT Patient arrived to room # (5375) via bed accompanied by RN. Patient transferred [...] groin , will continue to monitor. * Ismaelyoditchristie Cuong - 07/02/2018 9:20 PM CDT Pt [...] Will continue to monitor. * Mary Grace Stanton, OT - 07/02/2018 1:51 PM CDT Formatting of this note may be different from the original. OCCUPATIONAL THERAPY ASSESSMENT NOTE Patient Name: Valdez Anthony Room/Bed: FD1688/01 Admitting Diagnosis: Stroke Past Medical History: Diagnosis [...] non verbal with left hemiplegia. Transferred to [facility]. R MCA stroke s/p thrombectomy, stent 07/01. [...] occasionally in community. Prior Function Level Of [place]: Independent with ADLs and functional transfers Lives [...] s/p suprapubic catheter that was admitted at [facility] for urosepsis, DKA, A fib [...] s/p suprapubic catheter that was admitted at [facility] for urosepsis, DKA , A [...] from the ICU. Updated plan: - NPO, SUPERVISOR BEET END to monitor swallow - Protein shake supplements [...] is restart AC in 10 days, needs SUPERVISOR BEET END re-eval for get cleared otherwise PEG, Glu [...] pt completed videoswallow evaluation at [facility], which she states yielded recommendations for [...] Continue Treatment 3-5x/week. Prognosis: Fair NOMS Dysphagia Ratin5-Gsfgxzcdfo-Zwuavs Dysphagia -Not able to swallow safely by mouth for nutrition/hydration but may take some consistency w/ consistent max cues in therapy only. Alternative method of feeding required. Results Reported to Physician: Yes Objective* Relevant Med Background: 57 y.o. male with A-Fib (on Coumadin RIBBON INKER), IDDM, Prostate CA, OD blindness, HLD and [...] the posterior medial left temporal lobe. 3. Muslim of flow void within the right M1 [...] videoswallow evaluation given mild-mod cues. Therapist:BIANCA Lamb L/CCC-SUPERVISOR BEET END Voalte: [id number] Date:07/02/2018 * Ciarra Valentino, - 07/02/2018 6:57 AM CDT Formatting of [...] s/p suprapubic catheter that was admitted at [facility] for urosepsis, DKA , A [...] involving the medial L temporal lobe. 3. Muslim of flow void in the R M1. - Stroke Risk Factor Modification -LDL 44. Goal <70. Continue bellhop captain atorvastatin 40mg -A1c 17.4. Goal <7.0 -Continue ASA. Will discuss timing of AC given Afib. -Goal BP <140 - PT/OT, Speech Consult - Consult to Rehab - Neuro-ICU monitoring, neurochecks q 1 hrs Encephalopathy -s/p Flumazenil 0.5mg x 2 -07/01 ABG 7.34/39/102/20.6 -07/01 EEG: Diffuse slowing indicative of encephalopathy. No seizures or epileptiform activity. -No sedation needs -Holding bellhop captain Bupropion, Duloxetine Sedation/Pain Management: -s/p ativan 2mg and fentanyl 25mcg -s/p flumazenil 0.5 mg x 3 -No sedation needs at this time Cardiac: Afib with RVR -[id number]: 4: 4.8% Risk for stroke and 6.7% [...] - Hydralazine prn SBP >140 - Continue bellhop captain Lisinopril 20mg HLD - LDL 44. Goal LDL <70. Continue bellhop captain atorvastatin 20mg Respiratory: Hypoxia likely 2/2 [...] - Blood glucose goal 100-180mg/dl - Holding bellhop captain Levemir 16 units and Novolog 5 [...] (Last 24 hours) Glucose: (!) 127 (07/02/18 0410) POC Glucose (Download): (!) 142 (07/02/18 06) [...] Range Color,UA STRAW Turbidity,UA CLEAR CLEAR-CLEAR Specific [place]-Urine 1.018 1.003 - 1.035 pH,UA 5.0 5.0 [...] O2 Sat-Arterial 97.5 95 - 99 % Smnxgmjtqyz-UUD-Llx 20.6 (L) 21 - 28 MMOL/L POC [...] diagnostic procedures reviewed. Ciarra Valentino, Date: 07/02/[phone] Associated attestation - Veronica Doyle MD - [...] outpatient follow up Jerry Baker MD Urology application tester Please page application tester with concerns * Jaycob Ramos, - 07/01/2018 [...] Doyle MD Date: 07/01/2018 * Whit Guadarrama MS,CCC-SUPERVISOR BEET END - 07/01/2018 1:36 PM CDT SPEECH-LANGUAGE PATHOLOGY NO TREATMENT NOTE Order received and appreciated for clinical swallow evaluation. Chart reviewed and made contact with RN. Pt currently with another provider and with decreased level of arousal/responsiveness following ativan administration in the helicopter. SUPERVISOR BEET END will hold at this time per discussion with RN. SUPERVISOR BEET END will follow up and will complete evaluation when pt medically appropriate. Addendum 15:20: pt remains somnolent and unable to sustain adequate level of arousal to participate in clinical swallow evaluation per discussion with RN. SUPERVISOR BEET END will return to complete evaluation when appropriate. Chart review: Mr. Anthony presented to [facility] on 06/29 with uro-sepsis and [...] suggesting smaller completed infarct. Therapist: Whit Guadarrama MS,CCC-SUPERVISOR BEET END [id number] Date: 07/01/2018 * Mari Mullen, MAXINE - 07/01/2018 1:25 PM CDT Asked to [...] Exam: Temp: 36.9 C (98.4 F) (07/08 1141) [...] s/p suprapubic catheter that was admitted at [facility] for urosepsis, DKA, A fib [...] Factor Modification -Lipid Panel and A1c. Continue bellhop captain atorvastatin 40mg -TTE -Start ASA. -Goal BP <140 - PT/OT, Speech Consult - Consult to Rehab - Neuro-ICU monitoring, neurochecks q 1 hrs Encephalopathy likely 2/2 to Ativan, Fentanyl -s/p Flumazenil 0.5mg x 2 -ABG -CT Head w/out contrast -No sedation needs -Holding bellhop captain Bupropion, Duloxetine Sedation/Pain Management: -s/p ativan 2mg and fentanyl 25mcg -s/p flumazenil 0.5 mg x 2 -No sedation needs at this time Cardiac: Afib with RVR -[id number]: 4: 4.8% Risk for stroke and 6.7% [...] due to bradycardia at OSH - Holding bellhop captain Lisinopril 20mg and Metoprolol 25mg BID HLD - Lipid Panel. Goal LDL <70. Continue bellhop captain atorvastatin 20mg Respiratory: DHRUV -RA - [...] - Blood glucose goal 100-180mg/dl - Holding bellhop captain levemir, novolog FEN: - IVF: NPO, [...] p suprapubic catheter that was admitted at [facility] for urosepsis, DKA, A fib with RVR requiring cardizem ggt that was transferred for concerns for stroke. Admitted on 06/28 to [facility] with week history of cough, SOB. Found to have UTI with urosepsis and DKA with CO2 of 8, BG in 600s. Admitted to the ICU at [facility]. Started on CTX and Insulin [...] language) 2=neither correct 2 1c. 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, tape recorder repairer and release non-paretic hand (other 1 step [...] more than one modality 2 Score 32 [place] coma score: E: 2 - Opens eyes [...] hours): POC Glucose (Download): (!) 169 (07/01/18 1306) Lab Review: 24-hour labs: Results for orders [...] diagnostic procedures reviewed. Ciarra Valentino, Date: 07/01/[phone] * Edvin Juarez, SHANE-SCALLOP SHUCKER - 07/01/2018 12:03 PM CDT Formatting of [...] Labs: Pertinent labs reviewed GILLIAN Nelson Pager [phone] in this encounter Procedure Notes * Amy Velasquez MD - 07/01/2018 8:07 PM CDT Procedure(s): EEG AWAKE & ASLEEP EEG REPORT Valdez Anthony 1960 [id number] DATE OF STUDY 07/01/18 PATIENT HISTORY: This [...] mL IVPB (MB+), 1 g, Intravenous, PRN (Towel Rolling Machine Operator from Rx) AND Ionized Calcium, , , [...] 250 mL IVPB, 8 mmol, Intravenous, PRN (Towel Rolling Machine Operator from Rx) AND Phosphorus, , , PRN [...] here. EGD showed s/p polypectomy. Transferred to [facility] for stroke. Hgb dropped from 10.1 -> [...] She also does mention that at the [facility] the patient did have an upper endoscopy [...] Resolved Ambulatory Problems Diagnosis Date Noted Sepsis ([facility]) 01/15/2016 Severe sepsis ([facility]) 01/15/2016 LATISHA (acute kidney injury) ([facility]) 01/15/2016 High anion gap metabolic acidosis 01/15/2016 Past Medical History: Diagnosis Date Arthritis DM (diabetes mellitus) ([facility]) DM eyes Glaucoma Hypertension Social History [...] Date Noted Anemia 07/03/2018 Agitation 07/03/2018 Stroke ([facility]) 07/01/2018 HTN (hypertension) 01/15/2016 Urinary retention with incomplete bladder emptying 01/15/2016 Diabetes ([facility]) 01/15/2016 Proliferative diabetic retinopathy(362.02) 01/14/2013 Neovascular [...] Color,UA YELLOW Turbidity,UA 2+ (A) CLEAR-CLEAR Specific [place]-Urine 1.017 1.003 - 1.035 pH,UA 5.0 5.0 [...] DKA resolved -A1c 17.4 on 07/01/2018 uncontrolled -RIBBON INKER regimen: levemir 40 units QHS, Novolog 20-25 [...] up with local endocrinology in [facility] Patient was seen and discussed with [...] with diabetes in 1994. He follows with line helper at [facility]. At home, he was taking Levemir 40 units once a day, NovoLog 20-25 units with meal, metformin 1000 mg twice a day. His states that line helper prescribe NovoLog 40 units 3 times a [...] reviewed. Brenda Larios Endocrine Fellow Pager # [phone] 07/03/2018 Associated attestation - John Chaudhry MD [...] thick full liquids today) Estimated Calorie Needs: 2885-4218 (25-28 kcal/kg desired wt) Estimated Protein Needs: 85-100 (1.2-1.4 g/kg desired wt) Oral Diet Order: Full Liquid, [place] Thick Liquids Current EN Order: Isosource 1.5 [...] s/p suprapubic catheter that was admitted at [facility] for urosepsis, DKA, A fib [...] 07/02. Pt pulled Corpak today despite mits. SUPERVISOR BEET END evaluated pt via video-swallow with moderate oropharyngeal dysphagia and baseline cognitive deficits. SUPERVISOR BEET END recommending nectar thick full liquids; diet ordered. [...] meal. Offer No Sugar Added "Light Start [place] Breakfast Essentials" shakes made with nectar thick [...] Intervention / Plan: assessed nutritional status; ordered [place] Breakfast shakes with nectar thick milk PRN monitor po intake, adequacy, tolerance and advancement per SUPERVISOR BEET END findings and recs monitor wt trends, labs, meds and GI status Nutrition Diagnosis: Altered GI function Etiology: swallowing and cognitive deficits Signs & Symptoms: SUPERVISOR BEET END findings and recs for nectar thick full liquids with supervision Goals: Patient to consume >75% of meals/supplements Time Frame: Within 72 Hours Tata Daniels, MS,RD, LD, [facility] *[id number] * Damian Hensley MD - [...] resection, who was admitted upon transfer from [facility] on 07/01/2018 after originally presenting there with sepsis determined to be secondary to UTI complicated by DKA and Atrial Fibrillation and then apparent AMS. The patient was transferred to [facility] where CTA showed right M1 occlusion. [...] complexity and goals with PT, OT, and SUPERVISOR BEET END for acute inpatient rehabilitation; however, he is [...] Please have primary SWCM discuss with [facility] party coordinator according to the patient 's (and/or [...] a 57 y.o. male admitted to [facility] on 07/01/2018 with the following issues: [...] hours while supine in bed, pressure relief X48katm in seated position, PRAFOs for pressure relief and to prevent contractures Jaycob Ramos, DO Rehab Consult Pager: [phone] History of Present Illness Hospital Course: Valdez Anthony is a 57 y.o. male with new onset Atrial Fibrillation with RVR, HTN , HLD, T2DM, Diabetic Retinopathy, OD Blindness, Neovascular Glaucoma, Prostate Cancer s/p prostatectomy, Urinary Retention s/p suprapubic catheter that was admitted at [facility] for urosepsis, DKA, A fib [...] urosepsis. Rehab consulted for post acute rehab/placement. RIBBON INKER pt was independent and lived at home [...] Units/ sodium bicarbonate 650 mg(#) PRN ( Towel Rolling Machine Operator from Rx) Allergies: No Known Allergies Prior Level of Function Prior Function Level Of [place]: Independent with ADLs and functional transfers Lives [...] L spontaneously. Mitt and soft wrist restraints, [place] strap replaced end of session and bed [...] pt completed videoswallow evaluation at [facility], which she states yielded recommendations for [...] Skylar Heart - 07/09/2018 11:04 AM CDT AMMONIUM NITRATE CRYSTALLIZER Note: This inspector automatic typewriter printed and placed transfer packet in pt's chart drawer, per request from [facility] Sophia Vaughn. Skylar Heart Imposer For additional assistance, please contact [facility] Sophia Vaughn *[phone] * Anesthesia Post Op Day 1 - Claudia FloydNABIL - 07/09/2018 10:21 AM CDT Formatting of [...] days Todays Date: 07/09/2018 Plan D/c to [facility] today at 1:00pm via facility w/c van. [...] or Referral ? Discharge Planning Discharge Planning: [facility] Facility WILLEM sent updated clinicals to [facility] at [phone]. Update 10:00am: WILLEM spoke with Perla ([phone]) at [facility] to update. Perla educated that they will be available for transportation today at 1:00pm. WILLEM spoke with Neuro Team to update. WILLEM spoke with bedside RN to update. WILLEM tasked AMMONIUM NITRATE CRYSTALLIZER to deliver transfer packet. RN Report: [phone] WILLEM faxed d/c orders to [facility] at [phone]. ? Medication Needs ? Financial ? Legal [...] for the patient. Sophia Vaughn LMSW Phone: [phone] Pager: [phone] * Case Mgmt DC Plan - Sophia Vaughn - 07/08/2018 9:10 AM CDT Formatting of this note may be different from the original. Case Management Progress Note NAME:Valdez Anthony :1959 AGE: 57 y.o. ADMISSION DATE: 07/01/2018 DAYS ADMITTED: LOS: 7 days Todays Date: 07/08/2018 Plan Anticipate d/c to [facility] tomorrow pending pt stability. Interventions SW reviewed [...] or Referral ? Discharge Planning Discharge Planning: [facility] Facility WILLEM received and returned message for Angela ([phone]) at [facility] to discuss referral. Update 10:00am: WILLEM spoke with Blanquita ([phone]) at [facility] to update of anticipated d/c timeline. Blanquita educated that they are still reviewing for potential admission and will be contacting pt's to further discuss an admission. However, they will notify WILLEM once decision reached. Update 10:44am: WILLEM spoke with Perla at [facility] to update. Perla educated that they are able to accept for admission and will have their w/c van available for such. ? Medication Needs ? Financial [employer] following for assistance with [employer] ariel. ? Legal ? Other Other/None: [...] for the patient. Sophia Vaughn LMSW Phone: [phone] Pager: *[phone] * Care Plan - Shira [...] Todays Date: 07/07/2018 Plan Anticipate d/c to [facility] tomorrow pending pt stability and facility acceptance. Interventions WILLEM reviewed EMR and met with Neuro team for huddle. GI consulted. Anticipated EGD today. ? Support Support: Pt/Family Updates re:POC or DC Plan, Counseling for Adaptation to Illness, Counseling for Psychosocial issues ? Info or Referral ? Discharge Planning Discharge Planning: [facility] Facility WILLEM left message for Admissions ([phone]) at [facility] to discuss referral. Update 11:40am: WILLEM spoke with Hyacinth ([phone]) at [facility] and they are unable to locate referral. WILLEM agreeable to re-send referral to [phone], which WILLEM completed. Hyacinth educated that she will review and follow up. Hyacinth will also speak with her production welding supervisor to discuss their ability to assist with transportation. Update 1:20pm: WILLEM received message from Hyacinth and they are still unable to locate referral. WILLEM manually faxed referral to [phone], as requested. Update 2:00pm: SW received message from Hyacinth that they only got a portion of the referral. WILLEM re-faxed referral to [phone]. Update 4:00pm: WILLEM received and returned message for Angela ([phone]) at [facility]. ? Medication Needs ? Financial ? Legal [...] for the patient. Sophia Vaughn LMSW Phone: [phone] Pager: *[phone] * Care Plan - Shira [...] Liana Ortiz - 07/06/2018 10:50 AM CDT AMMONIUM NITRATE CRYSTALLIZER Note: Received request from [facility] Sophia Vaughn to fax referrals to the following placements. [facility] was also asked to check wheelchair van costs to the facility. [facility] - $350-375 [facility] - $500-525 [facility] - $400-425 [facility] w/c van - $430 All subject to time, billed alliance party, needs, etc. Updated [facility] Liana Ortiz Imposer For additional assistance please contact [facility] Sophia Roderick *[phone] * Case Mgmt DC Plan - Martina Vaughnleen - 07/06/2018 10:36 AM CDT Formatting of this note may be different from the original. Case Management Progress Note NAME:Valdez Anthony :1959 AGE: 57 y.o. ADMISSION DATE: 07/01/2018 DAYS ADMITTED: LOS: 5 days Todays Date: 07/06/2018 Plan Anticipate d/c to [facility] tomorrow vs Friday pending pt stability and facility acceptance. Interventions SW reviewed EMR and met with Neuro team for huddle. Anticipate GI consult. Continue to monitor hgb. ? Support Support: Pt/Family Updates re:POC or DC Plan, Counseling for Adaptation to Illness, Counseling for Psychosocial issues SW visited pt and Leticia at bedside to discuss DCP. Leticia requested referral to [facility]. SW agreeable and reviewed referral process. SW also reviewed potential private pay cost of w/c van should SNF be unable to assist. Leticia uncertain regarding their ability to private pay, however unwilling to remain in [facility] for SNF stay. SW agreeable to obtaining quote for ongoing assistance. ? Info or Referral ? Discharge Planning Discharge Planning: [facility] Facility SW tasked AMMONIUM NITRATE CRYSTALLIZER [facility] SW tasked [facility] to check rosenberg of w/c van. ? [...] for the patient. Sophia Vaughn LMSW Phone: [phone] Pager: *[phone] * Case Mgmt DC Plan - Martina [...] or Referral ? Discharge Planning Discharge Planning: [facility] Facility ? Medication Needs ? Financial ? [...] for the patient. Sophia Vaughn LMSW Phone: [phone] Pager: [phone] * Transfer - Ciarra Valentino, DO - [...] suprapubic catheter that was admitted at [facility] for urosepsis, DKA , A [...] Started on ASA. LDL 40, continued on bellhop captain atrovastatin. PT/OT and Speech consulted. CV: Initially started on Nicardipine ggt for goal SBP <140. Restarted on bellhop captain lisinopril. Intermittent Afib on telemetry. Restarted [...] OSH. DKA resolved. Insulin ggt continued. Holding bellhop captain Levemir and Novolog. Consider Endocrine consult. [...] Discharge Plan: Undetermined Ciarra Valentino DO Pager [phone] * Case Mgmt DC Plan - Sophia Vaughn - 07/01/2018 3:09 PM CDT Case Management Admission Assessment NAME:Valdez Anthony :1959 AGE: 57 y.o. ADMISSION DATE: 07/01/2018 DAYS ADMITTED: LOS: 0 days Todays Date: 07/01/2018 Source of Information: SW visited pt's Leticia and pt's OCTAVIANO Moseley at bedside. Plan Plan: CM Assessment, Assist PRN with SW/NCM Services Patient Address/Phone [address] [facility] [phone] (home) Emergency Contact Extended Emergency Contact Information Primary Emergency Contact: Suzie English ([facility]) Relation: Relative Secondary Emergency Contact: Leticia Anthony (Juyd) [facility] Mobile Relation: Spouse Healthcare Directive None Transportation [...] (Medicare Part A and B) Secondary Insurance: VA/[facility] ([facility]) Additional Coverage: VA (fills at [facility]. ) ? Source of Income Source Of Income: SSDI ? Financial Assistance Needed? None Psychosocial Needs ? Mental Health Mental Health History: No ? Substance Use History Substance Use History Screen: No ? Other None Current/Previous Services ? PCP Chris Seay APRN at [facility] ([phone] ext [phone]) ? Pharmacy [facility] [address] [address] ? Durable Medical Equipment Durable Medical Equipment [...] ? Outpatient Therapy PT: No OT: No SUPERVISOR BEET END: No ? Usp Facility/Fpc SNF: No NH: No Pt's OCTAVIANO Moseley works at [employer], therefore family understanding of LTC and SNF level of cares. ? Inpatient Rehab IPR: No ? [facility] LTACH: No ? Acute Hospital Stay Acute Hospital Stay: In the past Was patient's stay within the last 30 days?: No Sophia Vaughn LMSW Phone: [phone] Pager: [phone] * Acute Stroke Response - Alonzo Watt [...] 57 y.o. male with A-Fib (on Coumadin RIBBON INKER), IDDM, Prostate CA, OD blindness, HLD and [...] due to positive occult) - 300mg ASA WI daily - Echocardiogram - MRI head w/o contrast in AM of 07/02 - Monitor telemetry for arrhythmia - NPO - SUPERVISOR BEET END to eval speech when more alert - PT/OT to eval and treat - Rehab Medicine Consult The patient was seen and discussed with Dr. Gutierrez History of Present Ilness History of Present Illness: Mr. Anthony presented to [facility] on 06/29 with uro-sepsis and [...] and then to IR for EVT. At [facility] he had dropping Hgb and [...] language) 2=neither correct 2 1c. 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, tape recorder repairer and release non-paretic hand (other 1 step [...] Medications: [DEC Hold] calcium gluconate IV PRN (Towel Rolling Machine Operator from Rx) AND Ionized Calcium PRN AND Notify Physician Ongoing, [DEC Hold] magnesium sulfate PRN AND Magnesium PRN AND Notify Physician Ongoing, [DEC Hold] potassium chloride SR PRN OR [DEC Hold] potassium chloride PRN, [DEC Hold] sodium phosphate IVPB PRN (Towel Rolling Machine Operator from Rx) AND Phosphorus PRN AND Notify [...] Date: 07/01/2018 Attending Physician: Lulu Perry MD Tuber Operator(s): Miri Nair Stroke Treatment Time out performed: [...] Sedated from ativan Lulu Perry MD Pager: [phone] * Acute Stroke Response - Hannah Ceballos [...] Received: 1102 (ETA 10 minutes) EMS Agency: [facility] Outside Hospital: [facility] Clinical Presentation: Decreased LOC, Dysarthria, Left [...] Summary: Report received from MAXINE Pardo at [facility] in [place], [place]. Per report patient last known well today at 0730. At 0825 she noted patient to be less responsive with left side flaccid, dysarthria and left facial droop. Patient transferred to [facility] and upon arrival had decreased LOC. Flight [...] dressing applied at 1228. Patient transported to [place] [address], [facility] and no complications noted. Report given to MAXINE Cooley. CT/CTP/CTA/IR: CTA/CTP time: 1125 CTA/CTP Interpretation time: 1145 N/A Plan: Patient admitted to [place] [address] post procedure for further evaluation and monitoring. [...] Organization Address City/State/Zipcode Phone Number MAIN LAB [address] [place] [address] * POC GLUCOSE (07/09/2018 3:34 PM) Glucose, POC 66 (L) 70 - 100 MG/DL [facility] Performing Organization Address City/[facility] Phone Number [facility] [address] [place] [address] * POC GLUCOSE (07/09/2018 3:18 PM) Glucose, POC 69 (L) 70 - 100 MG/DL [facility] Performing Organization Address City/[facility] Phone Number [facility] [address] [place] [address] * POC GLUCOSE (07/09/2018 1:49 PM) Glucose, POC 136 (H) 70 - 100 MG/DL [facility] Performing Organization Address City/[facility] Phone Number [facility] [address] [place] [address] * POC GLUCOSE (07/09/2018 11:40 AM) Glucose, POC 158 (H) 70 - 100 MG/DL [facility] Performing Organization Address City/[facility] Phone Number [facility] [address] [place] [address] * POC GLUCOSE (07/09/2018 8:35 AM) Glucose, POC 104 (H) 70 - 100 MG/DL [facility] Performing Organization Address [facility] Phone Number [facility] [address] [place] [address] * COMPREHENSIVE METABOLIC PANEL (07/09/2018 5:47 AM) [...] Address City/State/Zipcode Phone Number [facility] [address] [place] [address] * CBC AND DIFF (07/09/2018 5:47 AM) [...] City/State/Zipcode Phone Number [facility] [address] [place] [address] * POC GLUCOSE (07/09/2018 3:09 AM) Glucose, POC 151 (H) 70 - 100 MG/DL [facility] Performing Organization Address City/[facility]/Zipcode Phone Number [facility] [address] [place] [address] * POC GLUCOSE (07/09/2018 1:10 AM) Glucose, POC 80 70 - 100 MG/DL [facility] Performing Organization Address City/[facility]/Zipcode Phone Number MAIN LAB [address] [place] [address] * CULTURE-BLOOD W/SENSITIVITY (07/08/2018 10:25 PM) Battery Name BLOOD CULTURE MAIN LAB Specimen Description BLOOD MAIN LAB LEFT HAND Special Requests NONE MAIN LAB Culture NO GROWTH 5 DAYS MAIN LAB Report Status FINAL MAIN LAB 07/14/2018 Specimen Blood Performing Organization Address City/[facility]/Zipcode Phone Number MAIN LAB [address] [place] [address] * POC GLUCOSE (07/08/2018 9:52 PM) Glucose, POC 96 70 - 100 MG/DL [facility] Performing Organization Address City/[facility] Phone Number MAIN LAB [address] [place] [address] * CULTURE-BLOOD W/SENSITIVITY (07/08/2018 8:20 PM) Battery Name BLOOD CULTURE MAIN LAB Specimen Description BLOOD MAIN LAB LEFT ANTECUBITAL Special Requests NONE MAIN LAB Culture NO GROWTH 5 DAYS MAIN LAB Report Status FINAL MAIN LAB 07/14/2018 Specimen Blood Performing Organization Address City/[facility]/Zipcode Phone Number MAIN LAB [address] [place] [address] * POC GLUCOSE (07/08/2018 5:56 PM) Glucose, POC 129 (H) 70 - 100 MG/DL [facility] Performing Organization Address City/State/Zipcode Phone Number [facility] MAIN [facility] [address] [place] [address] * SURGICAL PATHOLOGY (07/08/2018 4:34 PM) PATHOLOGY REPORT [facility] [employer] [facility] [email or web address] Department of Pathology and Laboratory Medicine [address] [place] [address] Surgical Pathology Office:[phone] :[phone] SURGICAL PATHOLOGY REPORT NAME: VALDEZ ANTHONY SURG PATH #: [id number] MR #: [id number] SPECIMEN CLASS: SR BILLING #: [id number] ALT ID #:LOCATION: DISCHARGED DATE OF PROCEDURE: [...] cassette C1. (ab) ab/07/08/2018 Performing Organization Address [facility] Phone Number [facility] RESULTS * UA REFLEX CULTURE LABEL (07/08/2018 4:09 PM) UA Reflex Culture LAB LABEL [facility] Specimen Urine Performing Organization Address [facility] Phone Number [facility] [address] [place] [address] * URINALYSIS MICROSCOPIC REFLEX TO CULTURE (07/08/2018 4:09 PM) WBCs,UA 0-2 0 - 2 /HPF [facility] RBCs,UA 0-2 0 - 3 /HPF [facility] Comment,UA Urine submitted for reflex [facility] culture if criteria are met:WBC>10, positive nitrite and/or >=1+ leukocyte esterase. If quantity is not sufficient, an addendum will follow. Specimen Urine Performing Organization Address [facility] Phone Number MAIN LAB [address] [place] [address] * URINALYSIS DIPSTICK REFLEX TO CULTURE (07/08/2018 4:09 PM) Color,UA STRAW [facility] Turbidity,UA CLEAR CLEAR-CLEAR [facility] Specific [place]-Urine 1.005 1.003 - 1.035 [facility] MAIN [facility] [...] Address City/State/Zipcode Phone Number [facility] [address] [place] [address] * CHEST SINGLE VIEW (07/08/2018 2:15 PM) [...] on 07/08/2018 2:17 PM. Performing Organization Address City/[facility]/Zipcode Phone Number RAD RESULTS * POC GLUCOSE (07/08/2018 1:57 PM) Glucose, POC 75 70 - 100 MG/DL MAIN LAB Performing Organization Address City/[facility] Phone Number MAIN LAB [address] [place] [address] * POC GLUCOSE (07/08/2018 1:21 PM) Glucose, POC 67 (L) 70 - 100 MG/DL MAIN LAB Performing Organization Address [facility] Phone Number MAIN LAB [address] [place] [address] * POC GLUCOSE (07/08/2018 11:46 AM) Glucose, POC 164 (H) 70 - 100 MG/DL MAIN LAB Performing Organization Address [facility] Phone Number MAIN LAB [address] [place] [address] * POC GLUCOSE (07/08/2018 11:22 AM) Glucose, POC 40 (LL) 70 - 100 MG/DL MAIN LAB Performing Organization Address [facility] Phone Number MAIN LAB [address] [place] [address] * EGD REPORT (07/08/2018 10:48 AM) Provation Report Patient Name: Raj DIMAS OTHER RESULTS Procedure Date: 07/08/2018 10:48 AM CSN: [id number] Date of : 1960 Gender: Male Attending Physician: Clara Carolina MD Procedure: Upper GI endoscopy Indications: Anemia (Mixed picture of anemia of chronic disease + Iron deficiency anemia), new onset of Afib and not on AC. Providers: Clara Carolina MD (Doctor), Roberto Dutta MD (Fellow), Alvaro Banegas (Nurse), Minna Jiménez RN (Nurse), Abisai Burden, Boat Hop (Boat Hop) Referring Physician: Referral Self Medications: Monitored Anesthesia [...] 55 seconds Procedure Code(s): --- Professional --- 58395, Esophagogastroduodenoscopy, flexible, transoral; with biopsy, single or multiple Diagnosis Code(s): --- Professional --- K44.9, Diaphragmatic hernia without obstruction or gangrene K31.89, Other diseases of stomach and duodenum D50.0, Iron deficiency anemia secondary to blood loss (chronic) CPT copyright 2016 [employer]. All rights reserved. The codes documented in this report are preliminary and upon butter maker review may be revised to meet [...] RESULTS Procedure Date: 07/08/2018 10:47 AM CSN: [id number] Date of : 1960 Gender: Male Attending Physician: Clara Carolina MD Procedure: Colonoscop y Indications: Anemia (Mixed picture of anemia of chronic disease + Iron deficiency anemia), new onset of Afib and not on AC. Providers: Clara Carolina MD (Doctor), Roberto Dutta MD (Fellow), Alvaro Banegas (Nurse), Minna Jiménez RN (Nurse), Abisai Burden, Boat Hop (Boat Hop) Referring Physician: Gerard Salazar MD Medications: Monitored [...] 15 seconds Procedure Code(s): --- Professional --- 58764, Colonoscopy, flexible; diagnostic, including collection of specimen(s) by brushing or washing, when performed (separate procedure) Diagnosis Code(s): --- Professional --- D50.0, Iron deficiency anemia secondary to blood loss (chronic) CPT copyright 2016 [employer]. All rights reserved. The codes documented in this report are preliminary and upon butter maker review may be revised to meet current compliance requirements. Attending Participation: I was present and participated during the entire procedure, including non-jacobs portions. MD Clara De Oliveira MD 07/08/2018 1:28:26 PM The attending physician has electronically signed and finalized this document. Roberto Dutta MD Number of Addenda: 0 Note Initiated On: 07/08/2018 10:47 AM Performing Organization Address [facility] Phone Number OTHER RESULTS * POC GLUCOSE (07/08/2018 7:33 AM) Glucose, POC 88 70 - 100 MG/DL [facility] Performing Organization Address [facility] Phone Number MAIN LAB [address] [place] [address] * PROCALCITONIN (07/08/2018 5:53 AM) Procalcitonin 0.13 (H) <0.10 NG/ML [facility] Performing Organization Address [facility] Phone Number MAIN LAB [address] [place] [address] * COMPREHENSIVE METABOLIC PANEL (07/08/2018 5:53 AM) [...] for questions. Specimen Blood Performing Organization Address City/[facility]/Zipcode Phone Number MAIN LAB [address] [place] [address] * CBC AND DIFF (07/08/2018 5:53 AM) [...] MAIN LAB Specimen Blood Performing Organization Address City/[facility]/Zipcode Phone Number MAIN LAB [address] [place] [address] * POC GLUCOSE (07/07/2018 9:26 PM) Glucose, POC 176 (H) 70 - 100 MG/DL [facility] Performing Organization Address [facility] Phone Number [facility] [address] [place] [address] * POC GLUCOSE (07/07/2018 5:54 PM) Glucose, POC 111 (H) 70 - 100 MG/DL [facility] Performing Organization Address [facility] Phone Number [facility] [address] [place] [address] * POC GLUCOSE (07/07/2018 11:30 AM) Glucose, POC 90 70 - 100 MG/DL [facility] Performing Organization Address [facility] Phone Number [facility] [address] [place] [phone] * CBC AND DIFF (07/07/2018 8:00 AM) [...] Specimen Blood Performing Organization Address [facility] Phone Number MAIN LAB [address] [place] [phone] * POC GLUCOSE (07/07/2018 7:49 AM) Glucose, POC 182 (H) 70 - 100 MG/DL [facility] Performing Organization Address [facility] Phone Number [facility] [address] [place] [address] * COMPREHENSIVE METABOLIC PANEL (07/07/2018 5:45 AM) [...] Clinical Pharmacist for questions. Performing Organization Address [facility] Phone Number MAIN LAB [address] [place] [address] * HEMOGLOBIN (07/07/2018 5:45 AM) Hemoglobin 9.5 (L) 13.5 - 16.5 GM/DL MAIN LAB Comment: Corrected on 07/09 AT 1021: previously reported as DUPLICATE ORDER, Corrected on 07/07 AT 0811: previously reported as 9.5 Specimen Blood Performing Organization Address [facility] Phone Number MAIN LAB [address] [place] [address] * HEMOGLOBIN (07/06/2018 10:45 PM) Hemoglobin 10.5 (L) 13.5 - 16.5 GM/DL MAIN LAB Specimen Blood Performing Organization Address [facility] Phone Number MAIN LAB [address] [place] [address] * OCCULT BLOOD NON COLON CANCER SCREEN (07/06/2018 10:45 PM) Battery Name OCCULT BLOOD SCREEN MAIN LAB Specimen Description FECES MAIN LAB Special Requests NONE MAIN LAB Occult Blood NEGATIVE MAIN LAB Report Status FINAL MAIN LAB 07/06/2018 Specimen Stool - Feces Performing Organization Address [facility] Phone Number MAIN LAB [address] [place] [address] * POC GLUCOSE (07/06/2018 9:04 PM) Glucose, POC 115 (H) 70 - 100 MG/DL [facility] Performing Organization Address [facility] [place] Phone Number MAIN LAB [address] [place] [address] * POC GLUCOSE (07/06/2018 5:11 PM) Glucose, POC 150 (H) 70 - 100 MG/DL [facility] Performing Organization Address [facility] Phone Number MAIN LAB [address] [place] [address] * POC GLUCOSE (07/06/2018 2:36 PM) Glucose, POC 196 (H) 70 - 100 MG/DL MAIN LAB Performing Organization Address [facility] Phone Number MAIN LAB [address] [place] [address] * HEMOGLOBIN (07/06/2018 1:31 PM) Hemoglobin 8.9 (L) 13.5 - 16.5 GM/DL MAIN LAB Specimen Blood Performing Organization Address [facility] Phone Number [facility] [address] [place] [address] * POC GLUCOSE (07/06/2018 11:49 AM) Glucose, POC 153 (H) 70 - 100 MG/DL [facility] Performing Organization Address [facility] Phone Number [facility] [address] [place] [address] * POC GLUCOSE (07/06/2018 7:29 AM) Glucose, POC 130 (H) 70 - 100 MG/DL [facility] Performing Organization Address [facility] [place] Phone Number [facility] [address] [place] [address] * HEMOGLOBIN (07/06/2018 4:27 AM) Hemoglobin 9.1 (L) 13.5 - 16.5 GM/DL MAIN LAB Specimen Blood Performing Organization Address [facility] [place] Phone Number MAIN LAB [address] [place] [address] * CBC (07/06/2018 4:27 AM) White Blood [...] Specimen Blood Performing Organization Address [facility] Phone Number [facility] [address] [place] [address] * BASIC METABOLIC PANEL (07/06/2018 4:27 AM) [...] for questions. Specimen Blood Performing Organization Address City/[facility]/Zipcode Phone Number MAIN LAB [address] [place] [address] * POC GLUCOSE (07/06/2018 2:35 AM) Glucose, POC 132 (H) 70 - 100 MG/DL [facility] Performing Organization Address [facility] Phone Number [facility] [address] [place] [address] * POC GLUCOSE (07/05/2018 10:09 PM) Glucose, POC 89 70 - 100 MG/DL [facility] Performing Organization Address [facility] Phone Number MAIN LAB [address] [place] [address] * HEMOGLOBIN (07/05/2018 9:40 PM) Hemoglobin 10.1 (L) 13.5 - 16.5 GM/DL [facility] Specimen Blood Performing Organization Address City/[facility]/Zipcode Phone Number [facility] MAIN [facility] [address] [place] [address] * POC GLUCOSE (07/05/2018 9:37 PM) Glucose, POC 77 70 - 100 MG/DL [facility] Performing Organization Address [facility] Phone Number [facility] [address] [place] [address] * POC GLUCOSE (07/05/2018 8:15 PM) Glucose, POC 81 70 - 100 MG/DL [facility] Performing Organization Address [facility] Phone Number [facility] [address] [place] [address] * CULTURE-URINE W/SENSITIVITY (07/05/2018 6:45 PM) Battery Name URINE CULTURE [facility] Specimen Description URINE [facility] Special Requests NONE [facility] Culture NO GROWTH [facility] Report Status FINAL [facility] 07/06/2018 Specimen Urine Performing Organization Address [facility] Phone Number [facility] [address] [place] [phone] * UA REFLEX CULTURE LABEL (07/05/2018 6:45 PM) UA Reflex Culture LAB LABEL [facility] Specimen Urine Performing Organization Address [facility] Phone Number [facility] [address] [place] [address] * URINALYSIS MICROSCOPIC REFLEX TO CULTURE (07/05/2018 [...] MAIN LAB Specimen Urine Performing Organization Address [facility] Phone Number [facility] [address] [place] [address] * URINALYSIS DIPSTICK REFLEX TO CULTURE (07/05/2018 6:45 PM) Color,UA YELLOW [facility] Turbidity,UA 2+ (A) CLEAR-CLEAR [facility] Specific [place]-Urine 1.017 1.003 - 1.035 [facility] pH,UA 5.0 5.0 - 8.0 [facility] Protein,UA 2+ (A) NEG-NEG [facility] Glucose,UA 1+ (A) NEG-NEG [facility] Ketones,UA NEG NEG-NEG [facility] Bilirubin,UA NEG NEG-NEG [facility] Blood,UA NEG NEG-NEG [facility] Urobilinogen,UA NORMAL NORM-NORMAL [facility] Nitrite,UA NEG NEG-NEG [facility] Leukocytes,UA 1+ (A) NEG-NEG MAIN LAB Urine Ascorbic Acid, UA NEG NEG-NEG MAIN LAB Specimen Urine Performing Organization Address [facility] Phone Number MAIN LAB [address] [place] [address] * POC GLUCOSE (07/05/2018 4:37 PM) Glucose, POC 79 70 - 100 MG/DL [facility] Performing Organization Address [facility] Phone Number MAIN LAB [address] [place] [address] * POC GLUCOSE (07/05/2018 2:02 PM) Glucose, POC 92 70 - 100 MG/DL MAIN LAB Performing Organization Address [facility] Phone Number MAIN LAB [address] [place] [address] * HEMOGLOBIN (07/05/2018 2:00 PM) Hemoglobin 9.6 (L) 13.5 - 16.5 GM/DL MAIN LAB Specimen Blood Performing Organization Address [facility] Phone Number MAIN LAB [address] [place] [address] * POC GLUCOSE (07/05/2018 11:32 AM) Glucose, POC 102 (H) 70 - 100 MG/DL MAIN LAB Performing Organization Address [facility] [place] Phone Number MAIN LAB [address] [place] [address] * ABDOMEN AP ONLY (07/05/2018 9:20 AM) [...] on 07/05/2018 10:21 AM. Performing Organization Address [facility] MexicoArroyo [employer] Solutionsri Phone Number RAD RESULTS * POC GLUCOSE (07/05/2018 6:56 AM) Glucose, POC 139 (H) 70 - 100 MG/DL MAIN LAB Performing Organization Address [facility] [place] Phone Number [employer] [facility] [address] [place] [address] * CBC (07/05/2018 5:50 AM) White Blood Cells 12.4 (H) 4.5 - 11.0 K/UL [facility] RBC 3.21 (L) 4.4 - 5.5 M/UL [facility] Hemoglobin 9.5 (L) 13.5 - 16.5 GM/DL [facility] Hematocrit 27.9 (L) 40 - 50 % [facility] MCV 86.9 80 - [address] [facility] MCH 29.6 26 - [address] [facility] MCHC 34.1 32.0 - 36.0 G/DL [facility] RDW 14.0 11 - 15 % [facility] Platelet Count 413 (H) 150 - 400 K/UL [facility] MPV 8.7 7 - [address] [facility] Specimen Blood Performing Organization Address [facility] [place] Phone Number [employer] [facility] [address] [place] [address] * POC GLUCOSE (07/05/2018 5:29 AM) Glucose, POC 125 (H) 70 - 100 MG/DL [employer] MAIN LAB Performing Organization Address [facility]/Zipcode Phone Number MAIN LAB [address] [place] [address] * BASIC METABOLIC PANEL (07/05/2018 5:25 AM) Sodium 137 137 - 147 MMOL/L [facility] Potassium 3.3 (L) 3.5 - 5.1 MMOL/L [facility] Chloride 104 98 - 110 MMOL/L [facility] CO2 25 21 - 30 MMOL/L [facility] Anion Gap 8 3 - 12 [facility] Glucose 131 (H) 70 - 100 MG/DL MAIN LAB Blood Urea Nitrogen 7 7 [...] for questions. Specimen Blood Performing Organization Address City/[facility]/Zipcode Phone Number MAIN LAB [address] [place] [address] * POC GLUCOSE (07/05/2018 2:37 AM) Glucose, POC 103 (H) 70 - 100 MG/DL [facility] Performing Organization Address [facility] Phone Number [facility] [address] [place] [address] * POC GLUCOSE (07/05/2018 1:31 AM) Glucose, POC 94 70 - 100 MG/DL [facility] Performing Organization Address City/State/Zipcode Phone Number MAIN LAB [address] [place] [address] * POC GLUCOSE (07/05/2018 12:41 AM) Glucose, POC 121 (H) 70 - 100 MG/DL [facility] Performing Organization Address City/[facility]/Zipcode Phone Number MAIN LAB [address] [place] [address] * POC GLUCOSE (07/04/2018 11:19 PM) Glucose, POC 84 70 - 100 MG/DL [facility] Performing Organization Address City/[facility]/Zipcode Phone Number [facility] [address] [place] [address] * HEMOGLOBIN (07/04/2018 9:30 PM) Hemoglobin 13.5 13.5 - 16.5 GM/DL [facility] Specimen Blood Performing Organization Address [facility] Phone Number [facility] [address] [place] [address] * POC GLUCOSE (07/04/2018 9:15 PM) Glucose, POC 105 (H) 70 - 100 MG/DL [facility] Performing Organization Address [facility] Phone Number [facility] [address] [place] [address] * POC GLUCOSE (07/04/2018 7:50 PM) Glucose, POC 164 (H) 70 - 100 MG/DL [facility] Performing Organization Address [facility] Phone Number [facility] [address] [place] [address] * POC GLUCOSE (07/04/2018 7:23 PM) Glucose, POC 44 (LL) 70 - 100 MG/DL [facility] Performing Organization Address [facility] [place] Phone Number [facility] [address] [place] [address] * POC GLUCOSE (07/04/2018 5:10 PM) Glucose, POC 96 70 - 100 MG/DL [facility] Performing Organization Address [facility] Phone Number MAIN LAB [address] [place] [address] * IRON + BINDING CAPACITY + %SAT+ FERRITIN (07/04/2018 2:20 PM) Iron 49 (L) 50 - 185 MCG/DL [facility] Iron Binding-TIBC 212 (L) 270 - 380 MCG/DL [facility] % Saturation 23 (L) 28 - 42 % [facility] Ferritin 383 (H) 30 - 300 NG/ML [facility] Specimen Blood Performing Organization Address City/[facility]/Zipcode Phone Number MAIN LAB [address] [place] [address] * POC GLUCOSE (07/04/2018 2:19 PM) Glucose, POC 137 (H) 70 - 100 MG/DL [facility] Performing Organization Address [facility] Phone Number MAIN LAB [address] [place] [address] * POC GLUCOSE (07/04/2018 1:42 PM) Glucose, POC 114 (H) 70 - 100 MG/DL [facility] Performing Organization Address [facility] Phone Number MAIN LAB [address] [place] [address] * POC GLUCOSE (07/04/2018 1:16 PM) Glucose, POC 55 (L) 70 - 100 MG/DL [facility] Performing Organization Address [facility] Phone Number MAIN LAB [address] [place] [address] * HEMOGLOBIN (07/04/2018 1:15 PM) Hemoglobin 9.4 (L) 13.5 - 16.5 GM/DL [facility] Specimen Blood Performing Organization Address [facility] Phone Number MAIN LAB [address] [place] [address] * POC GLUCOSE (07/04/2018 12:52 PM) Glucose, POC 66 (L) 70 - 100 MG/DL [facility] Performing Organization Address [facility] Phone Number MAIN LAB [address] [place] [address] * POC GLUCOSE (07/04/2018 12:19 PM) Glucose, POC 66 (L) 70 - 100 MG/DL [facility] Performing Organization Address [facility] Phone Number MAIN LAB [address] [place] [address] * POC GLUCOSE (07/04/2018 12:17 PM) Glucose, POC 59 (L) 70 - 100 MG/DL [facility] Performing Organization Address [facility] Phone Number MAIN LAB [address] [place] [address] * POC GLUCOSE (07/04/2018 10:28 AM) Glucose, POC 144 (H) 70 - 100 MG/DL [facility] Performing Organization Address [facility] Phone Number [facility] [address] [place] [address] * POC GLUCOSE (07/04/2018 9:31 AM) Glucose, POC 197 (H) 70 - 100 MG/DL [facility] Performing Organization Address [facility] Phone Number [facility] [address] [place] [address] * POC GLUCOSE (07/04/2018 8:38 AM) Glucose, POC 184 (H) 70 - 100 MG/DL [facility] Performing Organization Address [facility] Phone Number [facility] [address] [place] [address] * POC GLUCOSE (07/04/2018 7:29 AM) Glucose, POC 150 (H) 70 - 100 MG/DL [facility] Performing Organization Address [facility] [place] Phone Number [facility] [address] [place] [address] * POC GLUCOSE (07/04/2018 6:31 AM) Glucose, POC 119 (H) 70 - 100 MG/DL [facility] Performing Organization Address [facility] [place] Phone Number [facility] [address] [place] [address] * CBC (07/04/2018 5:47 AM) White Blood [...] - 15 % MAIN LAB Platelet Count 357 150 - 400 K/UL [facility] MPV 8.9 7 - 11 FL MAIN LAB Specimen Blood Performing Organization Address [facility] Phone Number [facility] [address] [place] [address] * BASIC METABOLIC PANEL (07/04/2018 5:47 AM) [...] for questions. Specimen Blood Performing Organization Address [facility] Phone Number MAIN LAB [address] [place] [address] * POC GLUCOSE (07/04/2018 5:36 AM) Glucose, POC 126 (H) 70 - 100 MG/DL [facility] Performing Organization Address [facility] Phone Number MAIN LAB [address] [place] [address] * POC GLUCOSE (07/04/2018 4:36 AM) Glucose, POC 94 70 - 100 MG/DL [facility] Performing Organization Address [facility] Phone Number [facility] [address] [place] [address] * POC GLUCOSE (07/04/2018 3:24 AM) Glucose, POC 120 (H) 70 - 100 MG/DL [facility] Performing Organization Address [facility] Phone Number MAIN LAB [address] [place] [address] * POC GLUCOSE (07/04/2018 2:14 AM) Glucose, POC 112 (H) 70 - 100 MG/DL [facility] Performing Organization Address City/[facility]/Zipcode Phone Number MAIN LAB [address] [place] [address] * POC GLUCOSE (07/04/2018 12:37 AM) Glucose, POC 126 (H) 70 - 100 MG/DL [facility] Performing Organization Address [facility] Phone Number MAIN LAB [address] [place] [address] * BLOOD TYPE CONFIRMATION - ORDER ONLY IF REQUESTED BY LAB (07/04/2018 12:13 AM) ABO/RH(D) O NEG MAIN LAB Specimen Blood Performing Organization Address [facility] Phone Number MAIN LAB [address] [place] [address] * TYPE & CROSSMATCH (07/03/2018 11:48 PM) Units Ordered 1 MAIN LAB Crossmatch Expires 07/06/2018 [facility] Record Check 2ND TYPE REQUIRED MAIN LAB ABO/RH(D) O NEG MAIN LAB Antibody Screen NEG MAIN LAB Electronic Crossmatch YES [facility]IN [facility] Unit Number [id number] MAIN LAB Blood Component Type RBC,CPDA,LEUKO REDUCED MAIN LAB Unit Division 0 MAIN LAB Status OF Unit TRANSFUSED [facility] Transfusion Status OK TO TRANSFUSE MAIN LAB Crossmatch Result COMPATIBLE,ELECTRONIC MAIN LAB Specimen Blood Performing Organization Address [facility] [place] Phone Number MAIN LAB [address] [place] [address] * POC GLUCOSE (07/03/2018 11:21 PM) Glucose, POC 197 (H) 70 - 100 MG/DL [facility]IN [facility] Performing Organization Address [facility] Phone Number MAIN LAB [address] [place] [address] * POC GLUCOSE (07/03/2018 10:12 PM) Glucose, POC 218 (H) 70 - 100 MG/DL [facility] Performing Organization Address [facility] Phone Number MA[facility] LAB [address] [place] [address] * HEMOGLOBIN (07/03/2018 10:02 PM) Hemoglobin 6.8 (L) 13.5 - 16.5 GM/DL [facility]IN [facility] Specimen Blood Performing Organization Address City/State/Zipcode Phone Number MAIN LAB [address] [place] [address] * POC GLUCOSE (07/03/2018 9:19 PM) Glucose, POC 187 (H) 70 - 100 MG/DL [facility] Performing Organization Address City/State/Zipcode Phone Number MAIN LAB [address] [place] [address] * POC GLUCOSE (07/03/2018 7:40 PM) Glucose, POC 113 (H) 70 - 100 MG/DL [facility] Performing Organization Address City/State/Zipcode Phone Number MAIN LAB [address] [place] [address] * POC GLUCOSE (07/03/2018 6:37 PM) Glucose, POC 143 (H) 70 - 100 MG/DL [facility] Performing Organization Address City/[facility]/Zipcode Phone Number MAIN LAB [address] [place] [address] * POC GLUCOSE (07/03/2018 5:31 PM) Glucose, POC 157 (H) 70 - 100 MG/DL MAIN LAB Performing Organization Address City/[facility]/Zipcode Phone Number MAIN LAB [address] [place] [address] * POC GLUCOSE (07/03/2018 4:35 PM) Glucose, POC 190 (H) 70 - 100 MG/DL [facility] Performing Organization Address City/[facility]/Zipcode Phone Number MAIN LAB [address] [place] [address] * POC GLUCOSE (07/03/2018 3:36 PM) Glucose, POC 190 (H) 70 - 100 MG/DL MAIN LAB Performing Organization Address City/State/Zipcode Phone Number MAIN LAB [address] [place] [address] * HEMOGLOBIN (07/03/2018 3:25 PM) Hemoglobin 7.2 (L) 13.5 - 16.5 GM/DL MAIN LAB Specimen Blood Performing Organization Address City/State/Zipcode Phone Number MAIN LAB [address] [place] [address] * POC GLUCOSE (07/03/2018 2:22 PM) Glucose, POC 176 (H) 70 - 100 MG/DL [facility] Performing Organization Address [facility] Phone Number MAIN LAB [address] [place] [address] * POC GLUCOSE (07/03/2018 1:24 PM) Glucose, POC 254 (H) 70 - 100 MG/DL [facility] MAIN LAB Performing Organization Address [facility] [place] [facility] [address] [place] [address] * POC GLUCOSE (07/03/2018 12:20 PM) Glucose, POC 307 (H) 70 - 100 MG/DL [facility] MAIN LAB Performing Organization Address [facility] [place] Phone Number MAIN LAB [address] [place] [address] * POC GLUCOSE (07/03/2018 10:45 AM) Glucose, POC 268 (H) 70 - 100 MG/DL [facility] MAIN LAB Performing Organization Address [facility] [place] Phone Number MAIN LAB [address] [place] [address] * POC GLUCOSE (07/03/2018 9:22 AM) Glucose, POC 233 (H) 70 - 100 MG/DL MAIN LAB Performing Organization Address [facility] [place] Phone Number MAIN LAB [address] [place] [address] * SWALLOW MOTION SERIES (07/03/2018 8:59 AM) [...] Address City/State/Zipcode Phone Number MAIN LAB [address] [place] [address] * ECG-SCAN (07/03/2018 7:35 AM) Narrative Performed At Ordered by an unspecified provider. * POC GLUCOSE (07/03/2018 5:03 AM) Glucose, POC 109 (H) 70 - 100 MG/DL [facility] MAIN LAB Performing Organization Address [facility] Phone Number MAIN LAB [address] [place] [address] * CBC (07/03/2018 4:11 AM) White Blood [...] MAIN LAB Specimen Blood Performing Organization Address City/[facility] Phone Number MAIN LAB [address] [place] [address] * BASIC METABOLIC PANEL (07/03/2018 4:11 AM) [...] for questions. Specimen Blood Performing Organization Address City/[facility] Phone Number MAIN LAB [address] [place] [address] * POC GLUCOSE (07/03/2018 3:57 AM) Glucose, POC 132 (H) 70 - 100 MG/DL [facility] MAIN LAB Performing Organization Address City/State/Zipcode Phone Number MAIN LAB [address] [place] [address] * POC GLUCOSE (07/03/2018 3:06 AM) Glucose, POC 145 (H) 70 - 100 MG/DL [facility] MAIN [facility] Performing Organization Address City/State/Zipcode Phone Number MAIN LAB [address] [place] [address] * POC GLUCOSE (07/03/2018 2:01 AM) Glucose, POC 154 (H) 70 - 100 MG/DL [facility] MAIN LAB Performing Organization Address City/State/Zipcode Phone Number MAIN LAB [address] [place] [address] * POC GLUCOSE (07/03/2018 1:05 AM) Glucose, POC 112 (H) 70 - 100 MG/DL MAIN LAB Performing Organization Address City/State/Zipcode Phone Number MAIN LAB [address] [place] [address] * POC GLUCOSE (07/03/2018 12:35 AM) Glucose, POC 98 70 - 100 MG/DL [facility] MAIN LAB Performing Organization Address City/State/Zipcode Phone Number MAIN LAB [address] [place] [address] * POC GLUCOSE (07/03/2018 12:13 AM) Glucose, POC 78 70 - 100 MG/DL [facility] MAIN LAB Performing Organization Address City/State/Zipcode Phone Number MAIN LAB [address] [place] [address] * POC GLUCOSE (07/02/2018 11:03 PM) Glucose, POC 102 (H) 70 - 100 MG/DL [facility] MAIN LAB Performing Organization Address City/State/Zipcode Phone Number MAIN LAB [address] [place] [address] * POC GLUCOSE (07/02/2018 9:56 PM) Glucose, POC 184 (H) 70 - 100 MG/DL [facility] MAIN LAB Performing Organization Address City/State/Zipcode Phone Number [facility] MAIN LAB [address] [place] [address] * POC GLUCOSE (07/02/2018 9:36 PM) Glucose, POC 49 (LL) 70 - 100 MG/DL [facility] MAIN LAB Performing Organization Address City/State/Zipcode Phone Number MAIN LAB [address] [place] [address] * POC GLUCOSE (07/02/2018 9:32 PM) Glucose, POC 50 (L) 70 - 100 MG/DL [facility] MAIN LAB Performing Organization Address City/State/Zipcode Phone Number MAIN LAB [address] [place] [address] * POC GLUCOSE (07/02/2018 9:13 PM) Glucose, POC 59 (L) 70 - 100 MG/DL [facility] MAIN LAB Performing Organization Address City/[facility]/Zipcode Phone Number MAIN LAB [address] [place] [address] * POC GLUCOSE (07/02/2018 9:11 PM) Glucose, POC 58 (L) 70 - 100 MG/DL [facility] MAIN LAB Performing Organization Address City/[facility]/Zipcode Phone Number MAIN LAB [address] [place] [address] * POC GLUCOSE (07/02/2018 7:58 PM) Glucose, POC 121 (H) 70 - 100 MG/DL [facility] MAIN LAB Performing Organization Address City/[facility]/Zipcode Phone Number MAIN LAB [address] [place] [address] * POC GLUCOSE (07/02/2018 6:56 PM) Glucose, POC 162 (H) 70 - 100 MG/DL [facility] MAIN LAB Performing Organization Address City/[facility]/Zipcode Phone Number MAIN LAB [address] [place] [address] * POC GLUCOSE (07/02/2018 6:07 PM) Glucose, POC 180 (H) 70 - 100 MG/DL [facility] MAIN LAB Performing Organization Address City/State/Zipcode Phone Number MAIN LAB [address] [place] [address] * POC GLUCOSE (07/02/2018 4:52 PM) Glucose, POC 195 (H) 70 - 100 MG/DL [facility] MAIN LAB Performing Organization Address City/State/Zipcode Phone Number MAIN LAB [address] [place] [address] * POC GLUCOSE (07/02/2018 4:24 PM) Glucose, POC 204 (H) 70 - 100 MG/DL [facility] MAIN LAB Performing Organization Address City/State/Zipcode Phone Number MAIN LAB [address] [place] [address] * POC GLUCOSE (07/02/2018 3:09 PM) Glucose, POC 212 (H) 70 - 100 MG/DL [facility] MAIN LAB Performing Organization Address City/State/Zipcode Phone Number MAIN LAB [address] [place] [address] * POC GLUCOSE (07/02/2018 2:13 PM) Glucose, POC 204 (H) 70 - 100 MG/DL [facility] MAIN LAB Performing Organization Address City/State/Zipcode Phone Number MAIN LAB [address] [place] [address] * POC GLUCOSE (07/02/2018 12:59 PM) Glucose, POC 235 (H) 70 - 100 MG/DL [facility] MAIN LAB Performing Organization Address City/[facility]/Zipcode Phone Number MAIN LAB [address] [place] [address] * POC GLUCOSE (07/02/2018 12:02 PM) Glucose, POC 244 (H) 70 - 100 MG/DL [facility] MAIN LAB Performing Organization Address City/State/Zipcode Phone Number MAIN LAB [address] [place] [address] * POC GLUCOSE (07/02/2018 11:10 AM) Glucose, POC 229 (H) 70 - 100 MG/DL MAIN LAB Performing Organization Address City/State/Zipcode Phone Number MAIN LAB [address] [place] [address] * ABDOMEN AP ONLY (07/02/2018 10:20 AM) [...] on 07/02/2018 11:09 AM. Performing Organization Address City/State/Zipcode Phone Number RAD RESULTS * POC GLUCOSE (07/02/2018 10:14 AM) Glucose, POC 212 (H) 70 - 100 MG/DL [facility] MAIN LAB Performing Organization Address City/[facility] Phone Number [employer] MAIN LAB [address] [place] [address] * POC GLUCOSE (07/02/2018 9:22 AM) Glucose, POC 209 (H) 70 - 100 MG/DL [facility] MAIN LAB Performing Organization Address City/State/Zipcode Phone Number [employer] MAIN LAB [address] [place] [address] * POC GLUCOSE (07/02/2018 8:04 AM) Glucose, POC 186 (H) 70 - 100 MG/DL [facility] MAIN LAB Performing Organization Address City/[facility] Phone Number [employer] MAIN LAB [address] [place] [address] * POC GLUCOSE (07/02/2018 6:05 AM) Glucose, POC 142 (H) 70 - 100 MG/DL [facility] MAIN LAB Performing Organization Address City/[facility] Phone Number MAIN LAB [address] [place] [address] * POC GLUCOSE (07/02/2018 5:00 AM) Glucose, POC 125 (H) 70 - 100 MG/DL [facility] MAIN LAB Performing Organization Address City/[facility] Phone Number MAIN LAB [address] [place] [address] * PHOSPHORUS (07/02/2018 4:15 AM) Phosphorus 2.6 2.0 - 4.0 MG/DL MAIN LAB Specimen Blood Performing Organization Address City/[facility] Phone Number MAIN LAB [address] [place] [address] * MAGNESIUM (07/02/2018 4:15 AM) Magnesium 1.9 1.6 - 2.6 mg/dL MAIN LAB Specimen Blood Performing Organization Address City/[facility] Phone Number MAIN LAB [address] [place] [address] * IONIZED CALCIUM (07/02/2018 4:15 AM) Ionized Calcium 1.14 1.0 - 1.3 MMOL/L MAIN LAB Specimen Blood Performing Organization Address [facility] Phone Number MAIN LAB [address] [place] [address] * CULTURE-BLOOD W/SENSITIVITY (07/02/2018 4:15 AM) Battery Name BLOOD CULTURE MAIN LAB Specimen Description BLOOD MAIN LAB RIGHT RADIAL ARTERIAL Special Requests NONE MAIN LAB Culture NO GROWTH 5 DAYS [facility] MAIN LAB Report Status FINAL MAIN LAB 07/08/2018 Specimen Blood Performing Organization Address City/[facility] Phone Number MAIN LAB [address] [place] [address] * CBC (07/02/2018 4:15 AM) White Blood [...] MAIN LAB Specimen Blood Performing Organization Address City/[facility] Phone Number MAIN LAB [address] [place] [address] * BASIC METABOLIC PANEL (07/02/2018 4:15 AM) [...] for questions. Specimen Blood Performing Organization Address City/[facility]/Zipcode Phone Number MAIN LAB [address] [place] [address] * POC GLUCOSE (07/02/2018 4:00 AM) Glucose, POC 129 (H) 70 - 100 MG/DL [facility] MAIN LAB Performing Organization Address City/[facility]/Zipcode Phone Number MAIN LAB [address] [place] [address] * POC GLUCOSE (07/02/2018 3:06 AM) Glucose, POC 116 (H) 70 - 100 MG/DL [facility] MAIN LAB Performing Organization Address City/State/Zipcode Phone Number MAIN LAB [address] [place] [address] * POC GLUCOSE (07/02/2018 2:02 AM) Glucose, POC 113 (H) 70 - 100 MG/DL [facility] MAIN LAB Performing Organization Address City/[facility]/Zipcode Phone Number MAIN LAB [address] [place] [address] * POC GLUCOSE (07/02/2018 1:12 AM) Glucose, POC 147 (H) 70 - 100 MG/DL [facility] MAIN LAB Performing Organization Address City/[facility]/Zipcode Phone Number MAIN LAB [address] [place] [address] * POC GLUCOSE (07/02/2018 12:05 AM) Glucose, POC 155 (H) 70 - 100 MG/DL MAIN LAB Performing Organization Address City/[facility]/Zipcode Phone Number MAIN LAB [address] [place] [address] * POC GLUCOSE (07/01/2018 11:03 PM) Glucose, POC 128 (H) 70 - 100 MG/DL MAIN LAB Performing Organization Address City/[facility] Phone Number MAIN LAB [address] [place] [address] * POC GLUCOSE (07/01/2018 10:07 PM) Glucose, POC 208 (H) 70 - 100 MG/DL [facility] MAIN LAB Performing Organization Address City/[facility] Phone Number MAIN LAB [address] [place] [address] * POC GLUCOSE (07/01/2018 9:18 PM) Glucose, POC 184 (H) 70 - 100 MG/DL MAIN LAB Performing Organization Address City/[facility]/Zipcode Phone Number MAIN LAB [address] [place] [address] * MRI HEAD WO CONTRAST (07/01/2018 9:10 [...] the posterior medial left temporal lobe. 3. Muslim of flow void within the right M1 [...] changes. Major vascular flow voids of the [place] of [place] and dural venous sinuses are preserved. There is sabianist of flow void in the right M1 [...] changes. Major vascular flow voids of the [place] of [place] and dural venous sinuses are preserved. There is sabianist of flow void in the right M1 [...] the posterior medial left temporal lobe. 3. Muslim of flow void within the right M1 segment, previously noted to be occluded. Performing Organization Address City/[facility] Phone Number RAD RESULTS * POC GLUCOSE (07/01/2018 8:07 PM) Glucose, POC 184 (H) 70 - 100 MG/DL [facility] MAIN LAB Performing Organization Address [facility] Phone Number [employer] MAIN LAB [address] [place] [address] * POC GLUCOSE (07/01/2018 6:59 PM) Glucose, POC 190 (H) 70 - 100 MG/DL [facility] MAIN LAB Performing Organization Address [facility] Phone Number [employer] MAIN LAB [address] [place] [address] * POC GLUCOSE (07/01/2018 6:03 PM) Glucose, POC 169 (H) 70 - 100 MG/DL [facility] MAIN LAB Performing Organization Address [facility] Phone Number [employer] MAIN LAB [address] [place] [address] * POC GLUCOSE (07/01/2018 5:10 PM) Glucose, POC 154 (H) 70 - 100 MG/DL [facility] MAIN LAB Performing Organization Address [facility] Phone Number [employer] MAIN LAB [address] [place] [address] * POC GLUCOSE (07/01/2018 4:04 PM) Glucose, POC 195 (H) 70 - 100 MG/DL [facility] MAIN LAB Performing Organization Address City/[facility] Phone Number MAIN LAB [address] [place] [address] * BLOOD GASES, ARTERIAL (07/01/2018 3:06 PM) pH-Arterial 7.34 (L) 7.35 - 7.45 [facility] MAIN LAB pCO2-Arterial 39 35 - 45 MMHG [facility] MAIN LAB pO2-Arterial 102 (H) 80 - 100 MMHG [facility] MAIN LAB Base Deficit-Arterial 4.6 MMOL/L [facility] MAIN LAB O2 Sat-Arterial 97.5 95 - 99 % [facility] [id number] 20.6 (L) 21 - 28 MMOL/L [facility] Specimen Blood, arterial - Blood Performing Organization Address [facility] Phone Number [facility] [address] [place] [address] * POC GLUCOSE (07/01/2018 3:05 PM) Glucose, POC 195 (H) 70 - 100 MG/DL [facility] MAIN LAB Performing Organization Address [facility] [place] Phone Number [facility] [address] [place] [address] * CT HEAD WO CONTRAST (07/01/2018 2:46 [...] 72.37 % OTHER OUTSIDE LAB AV index ([place]) 0.56 OTHER OUTSIDE LAB E/A ratio 1.35 OTHER OUTSIDE LAB E/E' ratio 10.67 OTHER OUTSIDE LAB CV ECHO PV SUPERVISOR LINE DEPARTMENT Yasir RN OTHER OUTSIDE LAB LV mass 118.49 96 - 200 g OTHER OUTSIDE LAB RWT 0.36 <=0.42 OTHER OUTSIDE LAB TV rest pulmonary artery 22 mmHg OTHER OUTSIDE LAB pressure Right Heart Systolic TDI 0.110 m/s OTHER OUTSIDE LAB S' Cardiology Ultrasound Siemens [id number] OTHER OUTSIDE LAB Machine ECHO EF 60 [...] City/State/Zipcode Phone Number [facility] MAIN LAB [address] [place] [address] * POC GLUCOSE (07/01/2018 1:02 PM) Glucose, POC 169 (H) 70 - 100 MG/DL [facility] MAIN LAB Performing Organization Address [facility]/Zipcode Phone Number [facility] MAIN LAB [address] [place] [address] * UA REFLEX CULTURE LABEL (07/01/2018 12:53 PM) UA Reflex Culture LAB LABEL [facility] MAIN LAB Specimen Urine Performing Organization Address [facility] Phone Number [facility] MAIN LAB [address] [place] [address] * URINALYSIS MICROSCOPIC REFLEX TO CULTURE (07/01/2018 [...] MAIN LAB Specimen Urine Performing Organization Address [facility] Phone Number [facility] MAIN LAB [address] [place] [address] * URINALYSIS DIPSTICK REFLEX TO CULTURE (07/01/2018 12:53 PM) Color,UA STRAW [facility] MAIN LAB Turbidity,UA CLEAR CLEAR-CLEAR [facility] MAIN LAB Specific [place]-Urine 1.018 1.003 - 1.035 K[facility] MAIN LAB [...] MAIN LAB Specimen Urine Performing Organization Address City/[facility] Phone Number [facility] MAIN [facility] [address] [place] [address] * LACTIC ACID(LACTATE) (07/01/2018 12:50 PM) Lactic Acid 1.5 0.5 - 2.0 MMOL/L [facility] MAIN LAB Performing Organization Address [facility] Phone Number [facility] MAIN LAB [address] [place] [id number] * BETA HYDROXYBUTYRATE (KETONES) (07/01/2018 12:50 PM) Beta Hydroxybutyrate 0.1 <0.3 MMOL/L [facility] MAIN LAB Comment: Beta hydroxybutyrate (BOHB) is the most abundant ketone (78%), followed by acetoacetate (20%) and acetone (2%).Measurement BOHB is recommended to assess ketones in DKA. Expected BOHB Results for DKA: Initial presentation high/increasing During treatment decreasing Resolved decreasing/normal Performing Organization Address [facility] Phone Number MAIN LAB [address] [place] [address] * LACTIC ACID (BG - RAPID LACTATE) (07/01/2018 12:50 PM) Lactic Acid,BG 1.5 0.5 - 2.0 MMOL/L [facility] MAIN LAB Specimen Blood Performing Organization Address [facility] [place] Phone Number [facility] [address] [place] [address] * CBC AND DIFF (07/01/2018 12:50 PM) [...] Specimen Blood Performing Organization Address [facility] Phone Number [facility] MAIN LAB [address] [place] [address] * IONIZED CALCIUM (07/01/2018 12:50 PM) Ionized Calcium 1.14 1.0 - 1.3 MMOL/L [facility] MAIN LAB Specimen Blood Performing Organization Address [facility] [place] Phone Number [facility]IN [facility] [address] [place] [address] * PHOSPHORUS (07/01/2018 12:50 PM) Phosphorus 2.6 2.0 - 4.0 MG/DL [facility] MAIN LAB Specimen Blood Performing Organization Address [facility] [place] Phone Number MAIN LAB [address] [place] [address] * MAGNESIUM (07/01/2018 12:50 PM) Magnesium 2.0 1.6 - 2.6 mg/dL [facility] MAIN LAB Specimen Blood Performing Organization Address [facility] [place] Phone Number [facility]IN [facility] [address] [place] [address] * LIPID PROFILE (07/01/2018 12:50 PM) Cholesterol [...] Specimen Blood Performing Organization Address [facility] Phone Number MAIN LAB [address] [place] [address] * COMPREHENSIVE METABOLIC PANEL (07/01/2018 12:50 PM) [...] for questions. Specimen Blood Performing Organization Address City/[facility]/Zipcode Phone Number MAIN LAB [address] [place] [address] * HEMOGLOBIN A1C (07/01/2018 12:50 PM) Hemoglobin A1C 17.4 (H) 4.0 - 6.0 % [facility] MAIN LAB Comment: The ADA recommends that most patients with type 1 and type 2 diabetes maintain an A1c level <7%. Specimen Blood Performing Organization Address City/[facility]/Zipcode Phone Number MAIN LAB [address] [place] [address] * IR ARTERIOGRAM NEURO (07/01/2018 12:29 PM) [...] Fentanyl 25 mcg Contrast - 100 cc [id number] Total mGy - 421 Anesthesia:conscious sedation Consent [...] the sheath was advanced over a 5 [place]ian 125 cm Vert catheter over a 180 cm 0.035 [place] wire over the aortic arch and into [...] therefore, hemostasis was achieved using an 8 [place] Angioseal closure device followed by manual pressure [...] Fentanyl 25 mcg Contrast - 100 cc [id number] Total mGy - 421 Anesthesia: conscious sedation [...] the sheath was advanced over a 5 [place] 125 cm Vert catheter over a 180 cm 0.035 [place] wire over the aortic arch and into [...] therefore, hemostasis was achieved using an 8 [place] Angioseal closure device followed by manual pressure [...] AM on 07/01/2018 by the vice president underwriting in consultation with TALIA BOSTON M.D.. Approved [...] AM on 07/01 by the vice president underwriting in consultation with TALIA BOSTON M.D.. Approved [...] AM on 07/01/2018 by the vice president underwriting in consultation with TALIA BOSTON M.D.. Approved [...] AM on 07/01 by the vice president underwriting in consultation with TALIA BOSTON M.D.. Approved [...] completed infarct. Findings were discussed with Dr. Nesterenko and stroke teamat 11:51 AM on 07/01/2018 by the vice president underwriting in consultation with TALIA BOSTON M.D.. Approved [...] AM on 07/01 by the vice president underwriting in consultation with TALIA BOSTON M.D.. Approved by Miesha Maldonado M.D. on 07/01/2018 12:14 PM By my electronic signature, I attest that I have personally reviewed the images for this examination and formulated the interpretations and opinions expressed in this report Finalized by TALAI BOSTON M.D. on 07/01/2018 12:15 PM. Dictated [...] 0649, Until Padma 07/09/18 at 1756, Constipation WI, Hold for loose stools heparin (porcine) PF [...] units. -POC glucose 301-350mg/dL at , , 17 administer 5 units insulin, at 21, 03* administer 4 units. -POC glucose 351-400mg/dL at , , administer 6 units insulin, at 21, 03* administer 5 units. -POC glucose >400mg/dL at , , 17 administer 7 units insulin, at 21, [...]
--- OUTSIDE RECORDS SUMMARY | 2018-08-22 18:06 | XMS REPORT | Encounter Summary ---
Author Author [facility] Organization [facility] Address Unknown Phone Unavailable Care Team Providers Care Flare Man Name Role Phone Damien Caceres MD Unavailable Melo Adame MD Unavailable Unavailable Alvarez Ozuna NP PCP Hilary Davenport RN Unavailable Unavailable Encounter Details Date Type Department Care Team Description 07/01/2018 Procedure Pass CA[address] [place] [address] Social History Tobacco Use Types Packs/Day Years Used Date Former Smoker Cigars 2 20 Quit: 10/20/2011 Smokeless Tobacco: Never Used Alcohol Use Drinks/Week oz/Week Comments No Sex Assigned at Date Recorded Not on file as of this encounter Plan of Treatment Not on fileas of this encounter Visit Diagnoses Not on filein this encounter
--- OUTSIDE RECORDS SUMMARY | 2018-08-22 18:06 | XMS REPORT | Encounter Summary ---
Author Author [facility] Organization [facility] Address Unknown Phone Unavailable Care Team Providers Care Dial Screw Assembler Name Role Phone Damien Caceres MD Unavailable Melo Adame MD Unavailable Unavailable Alvarez Ozuna NP PCP Hilary Davenport RN Unavailable Unavailable Encounter Details Date Type Department Care Team Description 07/01/2018 Procedure Pass CA6 [address] [place] [address] Social History Tobacco Use Types Packs/Day Years Used Date Former Smoker Cigars 2 20 Quit: 10/20/2011 Smokeless Tobacco: Never Used Alcohol Use Drinks/Week oz/Week Comments No Sex Assigned at Date Recorded Not on file as of this encounter Plan of Treatment Not on fileas of this encounter Visit Diagnoses Not on filein this encounter
--- OUTSIDE RECORDS SUMMARY | 2018-08-22 18:06 | XMS REPORT | Encounter Summary ---
Author Author [facility] Organization [facility] Address Unknown Phone Unavailable Care Team Providers Care Side Show Entertainer Name Role Phone Damien Caceres MD Unavailable Melo Adame MD Unavailable Unavailable Alvarez Ozuna NP PCP Hilary Davenport RN Unavailable Unavailable Encounter Details Date Type Department Care Team Description 07/01/2018 Procedure Pass CA6 [address] [place] [address] Social History Tobacco Use Types Packs/Day Years Used Date Former Smoker Cigars 2 20 Quit: 10/20/2011 Smokeless Tobacco: Never Used Alcohol Use Drinks/Week oz/Week Comments No Sex Assigned at Date Recorded Not on file as of this encounter Plan of Treatment Not on fileas of this encounter Visit Diagnoses Not on filein this encounter
--- OUTSIDE RECORDS SUMMARY | 2018-08-22 18:06 | XMS REPORT | Encounter Summary ---
Author Author [facility] Organization [facility] Address Unknown Phone Unavailable Care Team Providers Care Insulator Cutter And Former Name Role Phone Damien Caceres MD Unavailable Melo Adame MD Unavailable Unavailable Alvarez Ozuna NP PCP Hilary Davenport RN Unavailable Unavailable Encounter Details Date Type Department Care Team Description 07/01/2018 Procedure Pass [id number] [place] [address] Social History Tobacco Use Types Packs/Day Years Used Date Former Smoker Cigars 2 20 Quit: 10/20/2011 Smokeless Tobacco: Never Used Alcohol Use Drinks/Week oz/Week Comments No Sex Assigned at Date Recorded Not on file as of this encounter Plan of Treatment Not on fileas of this encounter Visit Diagnoses Not on filein this encounter
--- OUTSIDE RECORDS SUMMARY | 2018-08-22 18:06 | XMS REPORT | Encounter Summary ---
Author Author [facility] Organization [facility] Address Unknown Phone Unavailable Care Team Providers Care Land Department Head Name Role Phone Damien Caceres MD Unavailable Melo Adame MD Unavailable Unavailable Alvarez Ozuna NP PCP Hilary Davenport RN Unavailable Unavailable Encounter Details Date Type Department Care Team Description 07/01/2018 Procedure Pass [id number] [place] [address] Social History Tobacco Use Types Packs/Day Years Used Date Former Smoker Cigars 2 20 Quit: 10/20/2011 Smokeless Tobacco: Never Used Alcohol Use Drinks/Week oz/Week Comments No Sex Assigned at Date Recorded Not on file as of this encounter Plan of Treatment Not on fileas of this encounter Visit Diagnoses Not on filein this encounter
[2018-08-22] MEDS ORDERED: NS IV 1000 ML 1,000 ML IV ONE (18:33)
[2018-08-22 18:50] LABS: BASOPHILS % (AUTO) 0 % (0-10); EOSINOPHILS % (AUTO) 0 % (0-10); HEMATOCRIT 29 % (40-54); HEMOGLOBIN 9.6 G/DL (13.3-17.7); LYMPHOCYTES % (AUTO) 17 % (12-44); MEAN CORPUSCULAR HEMOGLOBIN 28 PG (25-34); MEAN CORPUSCULAR HGB CONC 34 G/DL (32-36); MEAN CORPUSCULAR VOLUME 84 FL (80-99); MEAN PLATELET VOLUME 11.2 FL (7.4-10.4); MONOCYTES # (AUTO) 0.6 X 10^3 (0.0-1.0); MONOCYTES % (AUTO) 5 % (0-12); NEUTROPHILS # (AUTO) 9.4 X 10^3 (1.8-7.8); NEUTROPHILS % (AUTO) 78 % (42-75); PLATELET COUNT 355 10^3/uL (130-400); RED BLOOD COUNT 3.39 10^6/uL (4.35-5.85); WHITE BLOOD COUNT 12.1 10^3/uL (4.3-11.0)
[2018-08-22] MEDS ORDERED: inSUlin (REGULAR) HUMAN 1 UNIT/0.01 ML (CHARGE PER UNIT) SC STA (18:52)
--- NOTE | 2018-08-22 19:00 | ED General ---
General Chief Complaint: General Problems/Pain Stated Complaint: CONFUSED,FEELING WEAK Source of Information: Patient Exam Limitations: No Limitations History of Present Illness Date Seen by Provider: Aug 22, 2018 Time Seen by Provider: 18:33 Initial Comments Here with report of feeling weak and shaking and chilled. Does complain of some suprapubic abdominal pain. Apparently has had urinary tract infection that is been treated for. He is a known diabetic. reports that the patient's reporting that there is some concerns for confusion although the patient does not seem confused currently. Blood sugar is elevated. He does have suprapubic catheter in place to a leg bag. Denies fevers or vomiting. Denies breathing problems. Timing/Duration: 1-2 Days Severity: Moderate Associated Systoms: No Chest Pain, No Cough; Fever/Chills; No Nausea/Vomiting, No Shortness of Air; Weakness Allergies and Home Medications Allergies Coded Allergies: No Known Drug Allergies (Unverified , 06/29/18) Home Medications Atorvastatin Calcium 80 Mg Tablet, 40 MG PO HS, (Reported) TAKES 1/2 (80MG) TABLET Bupropion HCl 75 Mg Tablet, 75 MG PO BID, (Reported) Cefdinir 300 Mg Capsule, 300 MG PO BID Prescribed by: HATTIE BUSH on 07/30/182055 Cholecalciferol (Vitamin D3) 1,000 Unit Capsule, 1,000 UNIT PO DAILY, (Reported) Cyanocobalamin (Vitamin B-12) 1,000 Mcg Tablet, 2,000 MCG PO DAILY, (Reported) Duloxetine HCl 30 Mg Capsule.dr, 90 MG PO DAILY, (Reported) TAKES 3 (30MG) CAPSULES Ferrous Sulfate 324 Mg Tablet.dr, 324 MG PO TID, (Reported) Folic Acid 1 Mg Tablet, 1 MG PO DAILY, (Reported) Insulin Aspart 300 Units/3 Ml Solution, 25 UNITS SQ AC, (Reported) Insulin Determir 1,000 Units/10 Ml Soln, 25 UNITS SQ HS, (Reported) Levofloxacin 500 Mg Tablet, 500 MG PO DAILY, (Reported) Loperamide HCl 2 Mg Capsule, 2 MG PO UD PRN for DIARRHEA, (Reported) Metformin HCl 500 Mg Tablet, 500 MG PO BID, (Reported) Metoprolol Tartrate 50 Mg Tablet, 25 MG PO BID, (Reported) TAKES 1/2 (50MG) TABLETS Mirtazapine 15 Mg Tablet, 15 MG PO HS, (Reported) Nitrofurantoin Monohyd/M-Cryst 100 Mg Capsule, 1 TAB PO BID Prescribed by: ALISE VAELAR on 08/01/18850 Ondansetron 4 Mg Tab.rapdis, 4 MG SL Q4H PRN for NAUSEA/VOMITING-1ST LINE Prescribed by: ALISE AVELAR on 08/01/18850 Pantoprazole Sodium 20 Mg Tablet.dr, 20 MG PO BID, (Reported) Pregabalin 100 Mg Capsule, 100 MG PO TID, (Reported) Sulfamethoxazole/Trimethoprim 1 Each Tablet, 1 EACH PO BID Prescribed by: DAJUAN GREY on 08/08/182119 Urea 85 Gm Cream..g., TP BID PRN for DRY FEET, (Reported) Patient Home Medication List Home Medication List Reviewed: Yes Review of Systems Review of Systems Constitutional: see HPI, chills; No fever EENTM: no symptoms reported Respiratory: No cough, No short of breath Cardiovascular: No chest pain, No edema Gastrointestinal: abdominal pain; No nausea, No vomiting Genitourinary: see HPI, other (suprapubic bag with sediment) Musculoskeletal: no symptoms reported Skin: no symptoms reported Psychiatric/Neurological: See HPI, Anxiety, Weakness All Other Systems Reviewed Negative Unless Noted: Yes Past Lbhkcux-Zzbxij-Nxzvgh Hx Past Med/Social Hx: Reviewed Nursing Past Med/Soc Hx Patient Social History Alcohol Use: Denies Use Recreational Drug Use: No Smoking Status: Current Everyday Smoker Type Used: Cigarettes Former Smoker, Quit: Oct 20, 2014 2nd Hand Smoke Exposure: No Recent Foreign Travel: No Contact w/Someone Who Travel: No Recent Hopitalizations: No Immunizations Up To Date Tetanus Booster (TDap): Less than 5yrs PED Vaccines UTD: No Date of Pneumonia Vaccine: Jul 17, 2015 Date of Influenza Vaccine: Jul 17, 2015 Seasonal Allergies Seasonal Allergies: No Past Medical History Surgeries: Yes (HEART CATH/ JAW SURGERY) Bladder Surgery, Cardiac, Prostatectomy Respiratory: No (fmr smkr) Currently Using CPAP: No Currently Using BIPAP: No Cardiac: Yes (heart cath) High Cholesterol, Hypertension Neurological: Yes Neuropathy, Stroke Reproductive Disorders: No Sexually Transmitted Disease: No HIV/AIDS: No Genitourinary: Yes Prostate Problems Gastrointestinal: Yes Chronic Diarrhea, C-Diff Musculoskeletal: Yes (CHRONIC NECK AND BACK PAIN ) Arthritis, Chronic Back Pain Endocrine: Yes Diabetes, Insulin dep Glaucoma Loss of Vision: Right Cancer: Yes Prostate What Type of Treatment Did You: Surgical Intervention Psychosocial: Yes Anxiety, Depression Integumentary: No Blood Disorders: No Adverse Reaction/Blood Tranf: No Family Medical History Reviewed Nursing Family Hx Family history: Hypertension 03 FATHER, Onset:40's - 50 03 MOTHER, Onset:40's - 50 History of - respiratory disease 03 MOTHER, Onset:50's - 60 Myocardial infarction 03 FATHER 03 MOTHER No Family History of: Abdominal aortic aneurysm Boo's disease Alcoholism Aphasia Cancer Cancer of colon Cataract Chest pain Congenital heart disease Congestive heart failure Cystic fibrosis Dementia Dysphagia Family history: Allergy Family history: Alzheimer's disease Family history: Arthritis Family history: Asthma Family history: Breast disease Family history: Cardiovascular disease Family history: Coronary thrombosis Family history: Diabetes mellitus Family history: Gastrointestinal disease Family history: Glaucoma Family history: Osteoporosis Family history: Thyroid disorder Headache Hearing loss Heart disease Hereditary disease History of - anemia History of - disorder History of drug abuse Human immunodeficiency virus (HIV) seropositivity Hypercholesterolemia Infertile Kidney disease Malignant neoplasm of lung Parkinson's disease Prostate cancer Psychotic disorder Seizure disorder Stroke Tuberculosis Visual impairment No Pertinent Family Hx, Heart Disease, Hypertension Physical Exam Vital Signs Vital Signs - First Documented 08/22/18 18:10 Temp 98.0 Pulse 71 Resp 18 B/P (MAP) 160/84 (109) Pulse Ox 100 O2 Delivery Room Air Capillary Refill : Height, Weight, BMI Height: 5'6.00" Weight: 134lbs. 5.0oz. 60.660038vt; 23.5 BMI Method:Stated General Appearance: WD/WN, Anxious, Mild Distress HEENT: PERRL/EOMI, Pharynx Normal Neck: Non Tender, Supple Respiratory: Lungs Clear, Normal Breath Sounds Cardiovascular: No Murmur, Tachycardia Gastrointestinal: Soft, Tenderness (suprapubic) Back: Normal Inspection, No CVA Tenderness, No Vertebral Tenderness Extremity: Normal Range of Motion, Non Tender Neurologic/Psychiatric: Alert, Oriented x3 Skin: Normal Color, Warm/Dry, Other Progress/Results/Core Measures Suspected Sepsis SIRS Temperature: Pulse: Respiratory Rate: Laboratory Tests 08/22/18 18:20: White Blood Count 12.1H Blood Pressure / Mean: Laboratory Tests 08/22/18 18:20: Creatinine 1.54H, Platelet Count 355, Total Bilirubin 0.9 Results/Orders Lab Results Laboratory Tests Test 08/22/18 18:18 08/22/18 18:20 08/22/18 19:15 Range/Units Glucometer 363 H 70-110 MG/DL White Blood Count 12.1 H 4.3-11.0 10^3/uL Red Blood Count 3.39 L 4.35-5.85 10^6/uL Hemoglobin 9.6 L 13.3-17.7 G/DL Hematocrit 29 L 40-54 % Mean Corpuscular Volume 84 80-99 FL Mean Corpuscular Hemoglobin 28 25-34 PG Mean Corpuscular Hemoglobin Concent 34 32-36 G/DL Red Cell Distribution Width 14.0 10.0-14.5 % Platelet Count 355 130-400 10^3/uL Mean Platelet Volume 11.2 H 7.4-10.4 FL Neutrophils (%) (Auto) 78 H 42-75 % Lymphocytes (%) (Auto) 17 12-44 % Monocytes (%) (Auto) 5 0-12 % Eosinophils (%) (Auto) 0 0-10 % Basophils (%) (Auto) 0 0-10 % Neutrophils # (Auto) 9.4 H 1.8-7.8 X 10^3 Lymphocytes # (Auto) 2.0 1.0-4.0 X 10^3 Monocytes # (Auto) 0.6 0.0-1.0 X 10^3 Eosinophils # (Auto) 0.0 0.0-0.3 10^3/uL Basophils # (Auto) 0.0 0.0-0.1 10^3/uL Sodium Level 135 135-145 MMOL/L Potassium Level 4.7 3.6-5.0 MMOL/L Chloride Level 99 98-107 MMOL/L Carbon Dioxide Level 20 L 21-32 MMOL/L Anion Gap 16 H 5-14 MMOL/L Blood Urea Nitrogen 20 H 7-18 MG/DL Creatinine 1.54 H 0.60-1.30 MG/DL Estimat Glomerular Filtration Rate 46 BUN/Creatinine Ratio 13 Glucose Level 364 H 70-105 MG/DL Calcium Level 10.2 H 8.5-10.1 MG/DL Corrected Calcium 10.2 H 8.5-10.1 MG/DL Total Bilirubin 0.9 0.1-1.0 MG/DL Aspartate Amino Transf (AST/SGOT) 19 5-34 U/L Alanine Aminotransferase (ALT/SGPT) 16 0-55 U/L Alkaline Phosphatase 129 40-136 U/L C-Reactive Protein High Sensitivity 1.94 H 0.00-0.50 MG/DL Total Protein 7.5 6.4-8.2 GM/DL Albumin 4.0 3.2-4.5 GM/DL Urine Color YELLOW Urine Clarity VERY CLOUDY H Urine pH 6 5-9 Urine Specific [place] 1.010 L 1.016-1.022 Urine Protein 3+ H NEGATIVE Urine Glucose (UA) 4+ H NEGATIVE Urine Ketones 3+ H NEGATIVE Urine Nitrite NEGATIVE NEGATIVE Urine Bilirubin NEGATIVE NEGATIVE Urine Urobilinogen NORMAL NORMAL MG/DL Urine Leukocyte Esterase 3+ H NEGATIVE Urine RBC (Auto) 5+ H NEGATIVE Urine RBC 50-100 H /HPF Urine WBC 50-100 H /HPF Urine Squamous Epithelial Cells 0-2 /HPF Urine Renal Epithelial Cells NONE /HPF Urine Crystals NONE /LPF Urine Bacteria FEW H /HPF Urine Casts PRESENT /LPF Urine Hyaline Casts 0-2 H /LPF Urine Mucus NEGATIVE /LPF Urine Culture Indicated YES My Orders Orders - DC LAGUNA MD Cbc With Automated Diff (08/22/18 18:33) Comprehensive Metabolic Panel (08/22/18 18:33) Ua Culture If Indicated (08/22/18 18:33) Saline Lock/Iv-Start (08/22/18 18:33) Ns Iv 1000 Ml (Sodium Chloride 0.9%) (08/22/18 18:33) Hs C Reactive Protein (08/22/18 18:33) Insulin (Regular) Human (Humulin R (Per (08/22/18 18:52) Promethazine Injection (Phenergan Injec (08/22/18 19:11) Urine Culture (08/22/18 19:15) Nitrofurantoin Capsule,Macro (Macrobid C (08/22/18 20:45) Medications Given in ED Current Medications Medications Dose Ordered Sig/Anitra Route Start Time Stop Time Status Last Admin Dose Admin Sodium Chloride 1,000 ml @ 0 mls/hr Q0M ONCE IV 08/22/18 18:33 08/22/18 18:36 DC 08/22/18 18:58 0 MLS/HR Vital Signs/I&O 11/3/18 18:10 Temp 98.0 Pulse 71 Resp 18 B/P (MAP) 160/84 (109) Pulse Ox 100 O2 Delivery Room Air Capillary Refill : Progress Note : Progress Note Seen and evaluated. IV, labs and UA ordered. Normal saline 1 L bolus. Insulin 10 units IV ordered. Monitor patient. 2034: Nitrofurantoin 100 mg by mouth given. We will continue this outpatient. I did look through his previous UA results and cultures. He does have both pseudomonas and Enterococcus faecalis. It looks like the enterococcus is resistant to Levaquin and he just finished Levaquin dosing. I will go ahead and prescribe nitrofurantoin as this was sensitive to that. Dawson catheter was changed to suprapubic region and did have sediment blockage which may have been adding to the problem. Overall he feels much better now. Discharged home with return precautions. Patient verbalize understanding instructions and agreement with plan. Departure Impression Primary Impression: Uncontrolled diabetes mellitus Qualified Codes: E11.65 - Type 2 diabetes mellitus with hyperglycemia Additional Impression: Urinary tract infection Qualified Codes: T83.510A - Infection and inflammatory reaction due to cystostomy catheter, initial encounter; N39.0 - Urinary tract infection, site not specified Disposition: HOME, SELF-CARE Condition: Improved Departure-Patient Inst. Decision time for Depature: 20:38 Referrals: NO,LOCAL PHYSICIAN (PCP) Primary Care Physician LULU FLOWERS (Family) Primary Care Physician Patient Instructions: Hyperglycemia, Adult (DC), Urinary Tract Infection, Adult (DC) Add. Discharge Instructions: All discharge instructions reviewed with patient and/or family. Voiced understanding. Drink plenty of fluids. Continue your blood sugar management as previously prescribed. Take medications as directed. Follow-up with your doctor this week for recheck and further evaluation. Return for worse pain, fever, vomiting , weakness, breathing problems or other concerns as needed. Scripts Nitrofurantoin Macrocrystal (Nitrofurantoin) 100 Mg Capsule 100 MG PO BID, #14 CAP 0 Refills Prov: DC LAGUNA MD 08/22/18 DC LAGUNA MD Aug 22, 2018 19:00
[2018-08-22 19:03] LABS: BILIRUBIN,TOTAL 0.9 MG/DL (0.1-1.0); CALCIUM 10.2 MG/DL (8.5-10.1); CREATININE SERUM 1.54 MG/DL (0.60-1.30); POTASSIUM 4.7 MMOL/L (3.6-5.0); TOTAL PROTEIN 7.5 GM/DL (6.4-8.2)
[2018-08-22] MEDS ORDERED: PROMETHAZINE INJ 25 MG/ML (PHENERGAN) AMP IVP STA (19:11)
[2018-08-22 19:22] LABS: BILIRUBIN,URINE NEGATIVE (NEGATIVE); CLARITY,URINE VERY CLOUDY; COLOR,URINE YELLOW; GLUCOSE, URINE (UA) 4+ (NEGATIVE); KETONES,URINE 3+ (NEGATIVE); LEUKOCYTE ESTERASE ,URINE 3+ (NEGATIVE); NITRITE,URINE NEGATIVE (NEGATIVE); PH,URINE 6 (5-9); PROTEIN,URINE 3+ (NEGATIVE); UROBILINOGEN,URINE NORMAL (NORMAL)
[2018-08-22 19:40] LABS: BACTERIA,URINE FEW /HPF; HYALINE CASTS, URINE 0-2 /LPF; RBC,URINE 50-100 /HPF; SQUAMOUS EPITHELIAL CELL,UR 0-2 /HPF; WBC,URINE 50-100 /HPF
[2018-08-22] MEDS ORDERED: NITR100C PO (20:40)
[2018-08-22 20:45] VITALS: BP 134/97
[2018-08-22] MEDS ORDERED: NITROFURANTOIN 100 MG (MACROBID) CAPSULE PO ONE (20:45)
== END 2018-08-22 20:45 | disposition home or self-care (01) ==
LOC: EDUNIT# 17:50 → ER 17:51
DX: N39.0 Urinary tract infection, site not specified (principal); E11.65 Type 2 diabetes mellitus with hyperglycemia; F17.210 Nicotine dependence, cigarettes, uncomplicated; I10 Essential (primary) hypertension; E78.00 Pure hypercholesterolemia, unspecified; F41.9 Anxiety disorder, unspecified; F32.9 Major depressive disorder, single episode, unspecified; Z86.73 Personal history of transient ischemic attack (TIA), and cerebral infarction without residual deficits; Z85.46 Personal history of malignant neoplasm of prostate; Z79.4 Long term (current) use of insulin
CPT/HCPCS: 36415; 80053; 81000; 82962; 85025; 86141; 87077; 87088; 96361; 96372; 96374

== ENCOUNTER 2018-08-23 11:55 | Inpatient (IN) | payer MEDICARE ==
[~2018-08-23] VITALS: Ht 167.6 cm; Wt 60.9 kg
[~2018-08-23 11:55] MED LIST changes: +NITR100C PO
--- OUTSIDE RECORDS SUMMARY | 2018-08-23 12:02 | XMS REPORT | Clinical Summary ---
Author Author [facility] Organization [facility] Address Unknown Phone Unavailable Care Team Providers Care Hemodialysis Rn Name Role Phone Damien Caceres MD Unavailable Melo Adame MD Unavailable Unavailable Lulu Ozuna NP PCP Hilary Davenport RN Unavailable Unavailable Source Comments Some departments are not documenting in the electronic medical record. If you do not see the information that you expected, contact Release of Information in the Health Information Management department at [phone] for further assistance in locating additional records.[facility] Allergies No Known Allergies Current [...] Problem Noted Date Diabetic ketoacidosis without coma ([facility]) 07/13/2018 Acute blood loss anemia 07/13/2018 Leukocytosis 07/13/2018 Normocytic anemia 07/13/2018 Overweight (BMI 25.0-29.9) 07/13/2018 Urinary retention 07/13/2018 Anemia of chronic disease 07/03/2018 Agitation 07/03/2018 Stroke ([facility]) 07/01/2018 Overview: R M1 occlusion, successful thrombectomy on 07/01/18 (TICI 3) HTN (hypertension) 01/15/2016 Urinary retention with incomplete bladder emptying 01/15/2016 Diabetes ([facility]) 01/15/2016 Proliferative diabetic retinopathy(362.02) 01/14/2013 Last [...] Problems Problem Noted Date Resolved Date Sepsis ([facility]) 01/15/2016 01/17/2016 Severe sepsis ([facility]) 01/15/2016 01/17/2016 LATISHA (acute kidney injury) ([facility]) 01/15/2016 01/17/2016 High anion gap metabolic acidosis 01/15/2016 01/17/2016 Encounters Date Type Specialty Care Team Description 07/08/2018 Anesthesia Hannah Arias, IN SERVICE EDUCATION TEACHER Event 07/08/2018 Procedure Pass 07/08/2018 Surgery Huang Carolina MD ESOPHAGOGASTRODUODENOSCOP Y 07/01/2018 Hospital Diego Gutierrez MD Stroke ([facility]) - Encounter Shanna Ward MD 07/09/2018 [...] 07/08/2028 07/08/2018 SCREENING Implants Implanted Type Area Gaming Worker Device Expiration Model / Identifier Date Serial / Lot Device Closure 70cm 8fr .038in Right: TERUMO:TERUMO 02/16/2019 [id number] / Angio-Seal Vip [employer]-Plus - Sn/A Femoral MED N/A / Implanted: Qty: 1 on 07/01/2018 by Artery [id number] Lulu Perry MD Procedures Procedure Name Priority [...] Organization Address City/State/Zipcode Phone Number MAIN LAB [address] [place] [address] * CBC AND DIFF (07/09/2018 5:47 AM) [...] City/State/Zipcode Phone Number [facility] [address] [place] [address] * COMPREHENSIVE METABOLIC PANEL (07/09/2018 5:47 AM) [...] for questions. Specimen Blood Performing Organization Address City/[facility]/Zipcode Phone Number [facility] [address] [place] [address] * CULTURE-BLOOD W/SENSITIVITY (07/08/2018 10:25 PM) Only the most recent of 4 results within the time period is included. Battery Name BLOOD CULTURE [facility] Specimen Description BLOOD MAIN LAB LEFT HAND Special Requests NONE MAIN LAB Culture NO GROWTH 5 DAYS MAIN LAB Report Status FINAL [facility] 07/14/2018 Specimen Blood Performing Organization Address City/[facility] Phone Number [facility] [address] [place] [address] * SURGICAL PATHOLOGY (07/08/2018 4:34 PM) PATHOLOGY REPORT [facility] [email or web address] Department of Pathology and Laboratory Medicine [address] [place] [address] Surgical Pathology Office:[phone] :[phone] SURGICAL PATHOLOGY REPORT NAME: VALDEZ NATHONY SURG PATH #: [id number] MR #: [id number] SPECIMEN CLASS: SR BILLING #: [id number] ALT ID #:LOCATION: DISCHARGED DATE OF PROCEDURE: [...] MAIN LAB Specimen Urine Performing Organization Address [facility] Phone Number [facility] [address] [place] [address] * URINALYSIS MICROSCOPIC REFLEX TO CULTURE (07/08/2018 [...] will follow. Specimen Urine Performing Organization Address [facility] Phone Number [facility] [address] [place] [address] * URINALYSIS DIPSTICK REFLEX TO CULTURE (07/08/2018 4:09 PM) Only the most recent of 3 results within the time period is included. Color,UA STRAW [facility] Turbidity,UA CLEAR CLEAR-CLEAR [facility] Specific [place]oo-Urine 1.005 1.003 - 1.035 [facility] MAIN [facility] [...] MAIN LAB Specimen Urine Performing Organization Address [facility] Phone Number [facility] [address] [place] [address] * CHEST SINGLE VIEW (07/08/2018 2:15 PM) [...] RESULTS Procedure Date: 07/08/2018 10:48 AM CSN: [id number] Date of : 1960 Gender: Male Attending Physician: Huang Carolina MD Procedure: Upper GI endoscopy Indications: Anemia (Mixed picture of anemia of chronic disease + Iron deficiency anemia), new onset of Afib and not on AC. Providers: Huang Carolina MD (Doctor), Roberto Dutta MD (Fellow), Alvaro Banegas (Nurse), Minna Jiménez RN (Nurse), Abisai Burden, Veneer Patcher (Veneer Patcher) Referring Physician: Referral Self Medications: Monitored Anesthesia [...] 55 seconds Procedure Code(s): --- Professional --- 47619, Esophagogastroduodenoscopy, flexible, transoral; with biopsy, single or multiple Diagnosis Code(s): --- Professional --- K44.9, Diaphragmatic hernia without obstruction or gangrene K31.89, Other diseases of stomach and duodenum D50.0, Iron deficiency anemia secondary to blood loss (chronic) CPT copyright 2016 [employer]. All rights reserved. The codes documented in this report are preliminary and upon supervisor engraving review may be revised to meet current [...] RESULTS Procedure Date: 07/08/2018 10:47 AM CSN: [id number] Date of : 1960 Gender: Male Attending Physician: Huang Carolina MD Procedure: Colonoscop y Indications: Anemia (Mixed picture of anemia of chronic disease + Iron deficiency anemia), new onset of Afib and not on AC. Providers: Huang Craolina MD (Doctor), Roberto Dutta MD (Fellow), Alvaro Banegas (Nurse), Minna Jiménez RN (Nurse), Abisai Burden, Veneer Patcher (Veneer Patcher) Referring Physician: Gerard Salazar MD Medications: Monitored [...] 15 seconds Procedure Code(s): --- Professional --- 67748, Colonoscopy, flexible; diagnostic, including collection of specimen(s) by brushing or washing, when performed (separate procedure) Diagnosis Code(s): --- Professional --- D50.0, Iron deficiency anemia secondary to blood loss (chronic) CPT copyright 2016 [employer]. All rights reserved. The codes documented in this report are preliminary and upon supervisor engraving review may be revised to meet current compliance requirements. Attending Participation: I was present and participated during the entire procedure, including non-jacobs portions. MD Huang De Oliveira MD 07/08/2018 1:28:26 PM The attending physician has electronically signed and finalized this document. Roberto Dutta MD Number of Addenda: 0 Note Initiated On: 07/08/2018 10:47 AM Performing Organization Address [facility] Phone Number [facility] OTHER RESULTS * PROCALCITONIN (07/08/2018 5:53 AM) Procalcitonin 0.13 (H) <0.10 NG/ML MAIN LAB Performing Organization Address [facility] Phone Number MAIN LAB [address] [place] [address] * HEMOGLOBIN (07/07/2018 5:45 AM) Only the most recent of 10 results within the time period is included. Hemoglobin 9.5 (L) 13.5 - 16.5 GM/DL MAIN LAB Comment: Corrected on 07/09 AT 1021: previously reported as DUPLICATE ORDER, Corrected on 07/07 AT 0811: previously reported as 9.5 Specimen Blood Performing Organization Address [facility] Phone Number MAIN LAB [address] [place] [address] * OCCULT BLOOD NON COLON CANCER SCREEN (07/06/2018 10:45 PM) Battery Name OCCULT BLOOD SCREEN MAIN LAB Specimen Description FECES MAIN LAB Special Requests NONE MAIN LAB Occult Blood NEGATIVE [facility] Report Status FINAL MAIN LAB 07/06/2018 Specimen Stool - Feces Performing Organization Address [facility] Phone Number MAIN LAB [address] [place] [address] * CBC (07/06/2018 4:27 AM) Only the [...] LAB MPV 8.6 7 - 11 FL [facility] Specimen Blood Performing Organization Address City/[facility]/Zipcode Phone Number [facility] [address] [place] [address] * BASIC METABOLIC PANEL (07/06/2018 4:27 AM) Only the most recent of 5 results within the time period is included. Sodium 138 137 - 147 MMOL/L MAIN LAB Potassium 3.8 3.5 - 5.1 MMOL/L MAIN LAB Chloride 103 98 - 110 MMOL/L [facility] CO2 26 21 - 30 MMOL/L MAIN LAB Anion Gap 9 3 - 12 MAIN LAB Glucose 146 (H) 70 - 100 MG/DL MAIN LAB Blood Urea Nitrogen 9 7 - 25 MG/DL MAIN LAB Creatinine 1.18 0.4 - 1.24 MG/DL [facility] Calcium 8.5 8.5 - 10.6 MG/DL MAIN LAB eGFR Non >60 >60 mL/min MAIN LAB Comment: The eGFR is not validated for use in drug dosing adjustments.Continue to use estimated creatinine clearance per dosing reference text.Please contact the Clinical Pharmacist for questions. eGFR >60 >60 mL/min [facility] Comment: The eGFR is not validated for use in drug dosing adjustments.Continue to use estimated creatinine clearance per dosing reference text.Please contact the Clinical Pharmacist for questions. Specimen Blood Performing Organization Address City/[facility]/Zipcode Phone Number [facility] [address] [place] [address] * CULTURE-URINE W/SENSITIVITY (07/05/2018 6:45 PM) Battery Name URINE CULTURE MAIN LAB Specimen Description URINE MAIN LAB Special Requests NONE [facility] Culture NO GROWTH [facility] Report Status FINAL MAIN LAB 07/06/2018 Specimen Urine Performing Organization Address City/State/Zipcode Phone Number MAIN LAB [address] [place] [address] * ABDOMEN AP ONLY (07/05/2018 9:20 AM) [...] MAIN LAB Specimen Blood Performing Organization Address City/[facility]/Zipcode Phone Number MAIN LAB [address] [place] [address] * BLOOD TYPE CONFIRMATION - ORDER ONLY IF REQUESTED BY LAB (07/04/2018 12:13 AM) ABO/RH(D) O NEG MAIN LAB Specimen Blood Performing Organization Address [facility] Phone Number MAIN LAB [address] [place] [address] * TYPE & CROSSMATCH (07/03/2018 11:48 PM) Units Ordered 1 MAIN LAB Crossmatch Expires 07/06/2018 MAIN LAB Record Check 2ND TYPE REQUIRED MAIN LAB ABO/RH(D) O NEG MAIN LAB Antibody Screen NEG MAIN LAB Electronic Crossmatch YES [facility] Unit Number [id number] MAIN LAB Blood Component Type RBC,CPDA,LEUKO REDUCED MAIN LAB Unit Division 0 MAIN LAB Status OF Unit TRANSFUSED MAIN LAB Transfusion Status OK TO TRANSFUSE MAIN LAB Crossmatch Result COMPATIBLE,ELECTRONIC MAIN LAB Specimen Blood Performing Organization Address [facility] Phone Number MAIN LAB [address] [place] [address] * SWALLOW MOTION SERIES (07/03/2018 8:59 AM) [...] on 07/03/2018 9:08 AM. Performing Organization Address City/[facility] Phone Number RAD RESULTS * ECG-SCAN (07/03/2018 7:35 AM) Narrative Performed At Ordered by an unspecified provider. * PHOSPHORUS (07/02/2018 4:15 AM) Only the most recent of 2 results within the time period is included. Phosphorus 2.6 2.0 - 4.0 MG/DL MAIN LAB Specimen Blood Performing Organization Address City/[facility]/Zipcode Phone Number MAIN LAB [address] [place] [address] * MAGNESIUM (07/02/2018 4:15 AM) Only the most recent of 2 results within the time period is included. Magnesium 1.9 1.6 - 2.6 mg/dL [facility] Specimen Blood Performing Organization Address City/[facility]/Zipcode Phone Number [facility] [address] [place] [address] * IONIZED CALCIUM (07/02/2018 4:15 AM) Only the most recent of 2 results within the time period is included. Ionized Calcium 1.14 1.0 - 1.3 MMOL/L [facility] Specimen Blood Performing Organization Address City/[facility] Phone Number Pin[facility] MAIN LAB [address] [place] [address] * MRI HEAD WO CONTRAST (07/01/2018 9:10 [...] the posterior medial left temporal lobe. 3. Holiness of flow void within the right M1 [...] changes. Major vascular flow voids of the [place] of Tse and dural venous sinuses are preserved. There is advent of flow void in the right M1 [...] changes. Major vascular flow voids of the [place] and dural venous sinuses are preserved. There is advent of flow void in the right M1 [...] the posterior medial left temporal lobe. 3. Holiness of flow void within the right M1 [...] 95 - 99 % [facility] Jxiudbhldrv-SZA-Ofj 20.6 (L) 21 - 28 MMOL/L [facility] Specimen Blood, arterial - Blood Performing Organization Address City/State/Zipcode Phone Number MAIN LAB [address] [place] [address] * CT HEAD WO CONTRAST (07/01/2018 2:46 [...] 72.37 % OTHER OUTSIDE LAB AV index (umatilla tribe) 0.56 OTHER OUTSIDE LAB E/A ratio 1.35 OTHER OUTSIDE LAB E/E' ratio 10.67 OTHER OUTSIDE LAB CV ECHO PV CHEMICAL MAKER MAXINE Cooley OTHER OUTSIDE LAB LV mass 118.49 96 - 200 g OTHER OUTSIDE LAB RWT 0.36 <=0.42 OTHER OUTSIDE LAB TV rest pulmonary artery 22 mmHg OTHER OUTSIDE LAB pressure Right Heart Systolic TDI 0.110 m/s OTHER OUTSIDE LAB S' Cardiology Ultrasound Siemens [id number] OTHER OUTSIDE LAB Machine ECHO EF 60 [...] study available for comparison Performing Organization Address [facility] Phone Number OTHER OUTSIDE LAB * BETA HYDROXYBUTYRATE (KETONES) (07/01/2018 12:50 PM) Beta Hydroxybutyrate 0.1 <0.3 MMOL/L [facility] Comment: Beta hydroxybutyrate (BOHB) is the most abundant ketone (78%), followed by acetoacetate (20%) and acetone (2%).Measurement BOHB is recommended to assess ketones in DKA. Expected BOHB Results for DKA: Initial presentation high/increasing During treatment decreasing Resolved decreasing/normal Performing Organization Address [facility] Phone Number [facility] [address] [place] [address] * LACTIC ACID (BG - RAPID LACTATE) (07/01/2018 12:50 PM) Lactic Acid,BG 1.5 0.5 - 2.0 MMOL/L [facility] Specimen Blood Performing Organization Address [facility] Phone Number [facility] [address] [place] [address] * LACTIC ACID(LACTATE) (07/01/2018 12:50 PM) Lactic Acid 1.5 0.5 - 2.0 MMOL/L [facility] Performing Organization Address [facility]/Zipcode Phone Number [facility] [address] [place] [address] * HEMOGLOBIN A1C (07/01/2018 12:50 PM) Hemoglobin A1C 17.4 (H) 4.0 - 6.0 % [facility] Comment: The ADA recommends that most patients with type 1 and type 2 diabetes maintain an A1c level <7%. Specimen Blood Performing Organization Address [facility] Phone Number MAIN LAB [address] [place] [phone] * LIPID PROFILE (07/01/2018 12:50 PM) Cholesterol [...] 130 mg/dL. Specimen Blood Performing Organization Address [facility] Phone Number MAIN LAB [address] [place] [phone] * IR ARTERIOGRAM NEURO (07/01/2018 12:29 PM) [...] Fentanyl 25 mcg Contrast - 100 cc [id number] Total mGy - 421 Anesthesia:conscious sedation Consent [...] the sheath was advanced over a 5 Qatari 125 cm Vert catheter over a 180 cm 0.035 [place] wire over the aortic arch and into [...] therefore, hemostasis was achieved using an 8 Qatari Angioseal closure device followed by manual pressure [...] Fentanyl 25 mcg Contrast - 100 cc Equ181 Total mGy - 421 Anesthesia: conscious sedation [...] the sheath was advanced over a 5 Qatari 125 cm Vert catheter over a 180 cm 0.035 [place] wire over the aortic arch and into [...] therefore, hemostasis was achieved using an 8 [place]ari Angioseal closure device followed by manual pressure [...] M.D. on 07/01/2018 1:32 PM. Dictated by ULLU PERRY M.D. on 07/01/2018 1:22 PM. Performing [...] 11:51 AM on 07/01/2018 by the resident services manager in consultation with TALIA BOSTON M.D.. Approved [...] 11:51 AM on 07/01 by the resident services manager in consultation with TALIA BOSTON M.D.. Approved [...] 11:51 AM on 07/01/2018 by the resident services manager in consultation with TALIA BOSTON M.D.. Approved [...] 11:51 AM on 07/01 by the resident services manager in consultation with TALIA BOSTON M.D.. Approved [...] 11:51 AM on 07/01/2018 by the resident services manager in consultation with TALIA BOSTON M.D.. Approved [...] 11:51 AM on 07/01 by the resident services manager in consultation with TALIA BOSTON M.D.. Approved [...]
--- OUTSIDE RECORDS SUMMARY | 2018-08-23 12:06 | XMS REPORT | Encounter Summary ---
Author Author [facility] Organization [facility] Address Unknown Phone Unavailable Care Team Providers Care Vascular Surgery Physician Name Role Phone Damien Caceres MD Unavailable [...] [address] [place] [address] [place] [address] [phone] Anesthesia Record Procedure Name Responsible Anesthesia Start [...] RT; Eye; Surgical Incision 05/11/14 0000 by [place], (NOT for MAXINE Kim Pressure Injuries) Indwelling [...] due to out of window), transferred to [facility] and found to have R M1 occlusion [...] Consent: consented Plan discussed with: anesthesiologist and ORGAN ASSEMBLER. Comments: (Patient not participating in health history/consent. [...]
--- OUTSIDE RECORDS SUMMARY | 2018-08-23 12:06 | XMS REPORT | Encounter Summary ---
Author Author [facility] Organization [facility] Address Unknown Phone Unavailable Care Team Providers Care Business Objects Report Developer Name Role Phone Damien Caceres MD Unavailable Melo Adame MD Unavailable Unavailable Alvarez Ozuna NP PCP Hilary Davenport RN Unavailable Unavailable Encounter Details Date Type Department Care Team Description 07/08/2018 Procedure Pass Gastrointenstinal Endoscopy [address] [place], [place] [id number] Social History Tobacco Use Types Packs/Day Years [...]
--- OUTSIDE RECORDS SUMMARY | 2018-08-23 12:06 | XMS REPORT | Encounter Summary ---
Author Author [facility] Organization [facility] Address Unknown Phone Unavailable Care Team Providers Care Diesel Stationary Engineer Name Role Phone Damien Caceres MD Unavailable Melo Adame MD Unavailable Unavailable Lulu Ozuna NP PCP Hilary Davenport RN Unavailable Unavailable Reason for Referral * Consult, Test & Treat (Routine) Status Reason Specialty Diagnoses / Referred By Referred To Procedures Contact Contact Closed Specialty Gastroenterology Diagnoses Keyshawn Gomez [facility]astro[facility], Ortho and Medical Required hemorrhage with [address] [place], [place] [phone] Phone: Fax: Reason for Visit * Auth/Cert Status Reason Specialty Diagnoses / Referred By Referred To Procedures Contact Contact Diagnoses Stroke (HCC) Stroke Encounter Details Date Type Department Care Team Description 07/01/2018 Hospital [facility] Diego Gutierrez MD Stroke (HCC) - Encounter [id number] 07/09/2018 [place] [address] [place], [place] [id number] Shanna Rocha MD [address] [place], [place] [id number] Veronica Buchanan MD [address] [place] [address] Keyshawn Hinton MD [address] [place] [address] Social History Tobacco Use Types [...] s/p suprapubic catheter that was admitted at [facility] for urosepsis, DKA, A fib with RVR requiring cardizem ggt that was transferred for concerns for stroke. Admitted on 06/28 to [facility] with week history of cough, SOB. Found to have UTI with urosepsis and DKA with CO2 of 8, BG in 600s. Admitted to the ICU at [facility]. Started on CTX and Insulin ggt. While [...] language) 2=neither correct 2 1c. 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, creative services manager and release non-paretic hand (other [...] tPA given unclear window. Was transferred to [facility] for evaluation. Was given ativan 2mg [...] stroke on 07/15. ECHO showed no thrombus. PROPAGATOR was following and pt graduated to regular [...] hospital course Consults: Cardiology, Endocrinology, GI and PT/OT/PROPAGATOR, rehab, urology Patient Disposition: Retirement Facility Patient instructions/medications: AMB REFERRAL TO GASTROENTEROLOGY [...] home, please feel free to contact the Gun Number at [phone]. Your last blood pressure was BP: 171/73, [...] Report These Signs and Symptoms STROKE Call [phone] for the following symptoms: *Sudden numbness or weakness of the face, arm or leg, especially on one side of the body. *Sudden confusion, trouble speaking or understanding. *Sudden trouble seeing in one or both eyes. *Sudden trouble walking, dizziness, loss of balance or coordination. *Sudden, severe headache with no known cause. Return Appointment For Neurology scheduling contact [phone] For Neurosurgery appointments call [phone] Questions About Your Stay STANDARD For questions or concerns regarding your hospital stay: -DURING BUSINESS HOURS (8:00 AM - 4:30 PM): Call [phone] and ask to be transferred to your discharge attending physician. -AFTER BUSINESS HOURS (4:30 PM - 8:00 AM, on weekends, or holidays): Call [phone] and ask the wood grinder operator to page the on-call doctor for the discharge attending physician. Discharging attending physician: KEYSHAWN GOMEZ [[id number]] Complete if patient is going to a Retirement Facility I certify that the patient requires skilled care Yes The patient's stay is expected to be less than 30 days Yes I will be in charge of patient in jail No Cardiac Diet Limiting unhealthy fats and [...] home, you can call a dietitian at [phone]. Modified Liquids Your fluids should be thickened to a consistency of nectar. This is as thick as a milkshake or tomato juice. If you have questions about your diet after you go home, you can call a dietitian at [phone]. Current Discharge Medication List START taking these [...] CDT Return Patient with Lulu Perry MD [facility] ([facility]) [facility] [address] [place] [phone] Additional appointment instructions: Please follow up with your PCP for repeat labs, monitoring your blood pressure, and monitoring your blood glucose Please follow up with the flat sheet maker at [facility] for follow up visit. Please follow [...] blood glucose Please follow up with the flat sheet maker at [facility] for follow up visit. Please follow [...] - 07/09/2018 2:57 PM CDT Phoned [facility] [place] [facility] [phone] and gave report to Perla GOODMAN to receive patient. Informed her that patient to transport at 13:00. By 15:00 no transport arrived, phoned facility above and it was reported that ride was on the way. FSBS=69 checked prior to transport. Reported to distribution field technician for Neurology, juice x 2 given FSBS rechecked=87. Patient left unit via wheelchair and local tanker truck driver who was given chart for transport. [...] Range Color,UA STRAW Turbidity,UA CLEAR CLEAR-CLEAR Specific [place]-Urine 1.005 1.003 - 1.035 pH,UA 8.0 5.0 [...] 0547) POC Glucose (Download): (!) 136 (07/09/18 8779) Radiology and other Diagnostics Review: Pertinent radiology [...] DKA resolved -A1c 17.4 on 07/01/2018 uncontrolled -REMELT PAN TANK OPERATOR regimen: levemir 40 units QHS, Novolog 20-25 [...] up with local endocrinology in [facility] Subjective Valdez Anthony is a 57 [...] Range Color,UA STRAW Turbidity,UA CLEAR CLEAR-CLEAR Specific [place]-Urine 1.005 1.003 - 1.035 pH,UA 8.0 5.0 [...] Diagnostics Review: none Barbi Deluna MD P [id number] * Tata Daniels, RD - 07/09/2018 12:54 PM CDT CLINICAL NUTRITION Clinical Nutrition Follow-Up Summary NAME:Valdez Anthony :1960 AGE: 57 y.o. ADMISSION DATE: 07/01/2018 DAYS ADMITTED: LOS: 8 days Nutrition Assessment of Patient: Malnutrition Assessment: Does not meet criteria Current Oral Intake: Improving, Marginally Adequate Estimated Calorie Needs: 9682-9480 (25-28 kcal/kg desired wt) Estimated Protein Needs: 85-100 (1.2-1.4 g/kg desired wt) Oral Diet Order: Diabetic 3932-6393 Kcal/day (60 g Carb/meal, 30 g Carb/HS snack ), [place] Thick Liquids Comments: 57 y.o. male with new onset Atrial Fibrillation with RVR, HTN, HLD, T2DM, Diabetic Retinopathy, OD Blindness, Neovascular Glaucoma, Prostate Cancer s/p prostatectomy, Urinary Retention s/p suprapubic catheter that was admitted at [facility] for urosepsis, DKA, A fib [...] and underwent via video- swallow eval with PROPAGATOR findings of moderate oropharyngeal dysphagia and baseline cognitive deficits. PROPAGATOR working with pt and diet has advanced from nectar thick full liquids to 60g/meal consistent carb diet with nectar thick fluids. Per had 100% omelet for breakfast today (refused per RN) and sandwich ordered by for lunch. No current wt to assess; unable to actually see pt today as he was bundled in his blankets. Pt has orders for no sugar added [place] breakfast with nectar thick milk at breakfast and per RN throughout day as needed. Followed up with call center who says orders not printing to meal ticket. denies need for diet education Recommendation: Encourage good meal intakes at least 3 times per day with adequate protein source each meal on 60g/meal consistne carb diet. Offer no sugar added [place] Breakfast shakes made with nectar thick milk at breakfast and PRN. Intervention / Plan: Monitor po intake tolerance and adequacy monitor wt trends, labs, meds and GI status Nutrition Diagnosis: Altered GI function Etiology: swallowing and cognitive deficits Signs & Symptoms: PROPAGATOR findings and nectar thick liquids with diabetic diet Goals: Patient to consume >75% of meals/supplements Time Frame: Within 72 Hours Status: Met Patient to consume >85% of meals/supplements Time Frame: Throughout Stay Tata Daniels, MS,RD, LD, [facility] *[id number] * James Shook, DO - [...] prostate cancer s/p prostatectomy who presents to [facility] as a transfer from [facility] for stroke. OSH course: Pt presented to [...] tPA given unclear window. Was transferred to [facility] for evaluation. Was given ativan 2mg [...] EF, LA size 3.5cm, no thrombus - PROPAGATOR following -> recommend regular diet w/ nectar [...] to f/u w/ endo @ [facility] outpt basis -> goal BS 100-140 [...] -> develop stroke and was transferred to [facility] - Was placed on PO cardizem [...] 07/01 - 07/05 Dispo: discharge today to [facility] @ 1300 Patient was seen and discussed with Dr. Gomez. Jaems Shook, PGY-2 Subjective: Valdez Anthony is a [...] Range Color,UA STRAW Turbidity,UA CLEAR CLEAR-CLEAR Specific [place]-Urine 1.005 1.003 - 1.035 pH,UA 8.0 5.0 [...] prostate cancer s/p prostatectomy who presents to [facility] as a transfer from [facility] for stroke. OSH course: Pt presented to [...] tPA given unclear window. Was transferred to [facility] for evaluation. Was given ativan 2mg [...] EF, LA size 3.5cm, no thrombus - PROPAGATOR following -> recommend regular diet w/ nectar [...] to f/u w/ endo @ [facility] outpt basis -> goal BS 100-140 [...] -> develop stroke and was transferred to [facility] - Was placed on PO cardizem [...] fluids, replace lytes PRN, ada diet Ppx: [id number] Heparin Sq Q8, SCDs Code: Full Dispo: [...] (07/08/18 0553) POC Glucose (Download): 75 (07/08/18 2727) Radiology and Other Diagnostics Review: Pertinent radiology [...] pathology results. Roberto Dutta GI fellow Pager [phone] 07/08/2018 3:39 PM * Eloy Higgins RN [...] or concerns after your procedure please call [phone] M-F 8am-5:00 pm. After 5:00 pm, holidays or weekends call [phone] and ask for the GI Doctor distribution field technician. * Barbi Deluna MD - 07/08/2018 [...] DKA resolved -A1c 17.4 on 07/01/2018 uncontrolled -REMELT PAN TANK OPERATOR regimen: levemir 40 units QHS, Novolog 20-25 [...] up with local endocrinology in [facility] Subjective Valdez Anthony is a 57 [...] s/p suprapubic catheter that was admitted at [facility] for urosepsis, DKA, A fib [...] PROGRESS NOTE Patient Name: Valdez Anthony Room/Bed: FK4735/01 Admitting Diagnosis: Stroke Past Medical History: Diagnosis [...] occasionally in community. Prior Function Level Of [place]: Independent with ADLs and functional transfers Lives [...] Bed mobility, Ambulation, Stairs Therapist: ERIC Whalen/Cesia [id number] Date: 07/08/2018 * Whit Guadarrama MS,CCC-PROPAGATOR - 07/08/2018 9:38 AM CDT SPEECH-LANGUAGE PATHOLOGY NO TREATMENT NOTE Chart reviewed and discussed in interdisciplinary rounds. Pt NPO for colonoscopy this date. PROPAGATOR will continue to follow. Therapist: Whit Guadarrama MS,CCC-PROPAGATOR [id number] Date: 07/08/2018 * Barbi Deluna MD - [...] DKA resolved -A1c 17.4 on 07/01/2018 uncontrolled -REMELT PAN TANK OPERATOR regimen: levemir 40 units QHS, Novolog 20-25 [...] up with local endocrinology in [facility] Subjective Valdez Anthony is a 57 [...] prostate cancer s/p prostatectomy who presents to [facility] as a transfer from [facility] for stroke. OSH course: Pt presented to [...] tPA given unclear window. Was transferred to [facility] for evaluation. Was given ativan 2mg [...] EF, LA size 3.5cm, no thrombus - PROPAGATOR following -> recommend regular diet w/ nectar [...] to f/u w/ endo @ [facility] outpt basis -> goal BS 100-140 [...] -> develop stroke and was transferred to [facility] - Was placed on PO cardizem [...] clear liquid/ada diet for procedure tomorrow Ppx: [id number] Heparin Sq Q8, SCDs Code: Full Dispo: [...] provide intervention as indicated. Irma Blakely OTR/L [id number] * Whit Guadarrama, ,CCC-PROPAGATOR - 07/07/2018 9:50 AM CDT SPEECH-LANGUAGE PATHOLOGY NO TREATMENT NOTE Chart reviewed and discussed in interdisciplinary rounds. Pt NPO for colonoscopy this date. PROPAGATOR will continue to follow. Therapist: Whit Guadarrama MS,[facility]PROPAGATOR [id number] Date: 07/07/2018 * Shira Welch RN - [...] DKA resolved -A1c 17.4 on 07/01/2018 uncontrolled -REMELT PAN TANK OPERATOR regimen: levemir 40 units QHS, Novolog 20-25 [...] up with local endocrinology in [facility] Subjective Valdez Anthony is a 57 [...] Color,UA YELLOW Turbidity,UA 2+ (A) CLEAR-CLEAR Specific [place]-Urine 1.017 1.003 - 1.035 pH,UA 5.0 5.0 [...] prostate cancer s/p prostatectomy who presents to [facility] as a transfer from [facility] for stroke. OSH course: Pt presented to [...] tPA given unclear window. Was transferred to [facility] for evaluation. Was given ativan 2mg [...] EF, LA size 3.5cm, no thrombus - PROPAGATOR following -> recommend regular diet w/ nectar [...] to f/u w/ endo @ [facility] outpt basis -> goal BS 100-140 [...] fluids, replace lytes PRN, ADA diet Ppx: [id number] Heparin Sq Q8, SCDs Code: Full Dispo: [...] asked these questions and provided answers by PROPAGATOR) Speech: slurred speech w/ comprehension intact to [...] Color,UA YELLOW Turbidity,UA 2+ (A) CLEAR-CLEAR Specific [place]-Urine 1.017 1.003 - 1.035 pH,UA 5.0 5.0 [...] due to out of window), transferred to [facility] and found to have [...] established Keyshawn Gomez MD * Whit Guadarrama MS,CCC-PROPAGATOR - 07/06/2018 12:14 PM CDT Formatting of this note may be different from the original. SPEECH-LANGUAGE PATHOLOGY COGNITIVE-COMMUNICATION ASSESSMENT EVALUATION SUMMARY Pt seen for cognitive communication evaluation utilizing the Diver[place] Cognitive Assessment (MOCA) as well as other [...] address dysphagia and cognitive communication concerns. Ongoing PROPAGATOR at next level of care. Consistent supervision [...] stating we are located at [facility]. Verbal Problem Solving Comments: Functional problem solving: [...] baseline to call for assistance if needed. D[place] Cognitive Assessment (MoCA), Version 7.1 Subtest / [...] suprapubic catheter that was admitted at [facility] for urosepsis, DKA, A fib with RVR [...] the posterior medial left temporal lobe. 3. Gnosticist of flow void within the right M1 [...] spoon/cup and pureed /mech soft solids w/ PROPAGATOR only w/ less than 5% s/s of [...] from respiratory status changes. Therapist: Whit Guadarrama MS,[facility])-PROPAGATOR [id number] Date: 07/06/2018 * Aria Mccoy, PT - [...] s/p suprapubic catheter that was admitted at [facility] for urosepsis, DKA, A fib [...] spoon/cup and pureed /mech soft solids w/ PROPAGATOR only w/ less than 5% s/s of [...] speech therapy post acute hospitalization. Therapist: Cesia Hatfield/CCC-PROPAGATOR (Pager [phone]; Voalte: [phone]) Date: 07/05/2018 * Darcy Goodrich MD - [...] s/p suprapubic catheter that was admitted at [facility] for urosepsis, DKA, A fib [...] EF, LA size 3.5cm, no thrombus - PROPAGATOR to eval and treat - Video swallow [...] - Rocephin 07/01 - 07/05 FEN: - [place] thick PO fluids - Daily BMP - [...] (Last 24 hours) Glucose: (!) 131 (07/05/18 0573) POC Glucose (Download): (!) 139 (07/05/18 0953) Radiology and other Diagnostics Review: Pertinent radiology reviewed. Darcy Goodrich MD Neurology PGY-4 Pager Neurology distribution field technician pager [phone] Associated attestation - Diego Gutierrez [...] DKA resolved -A1c 17.4 on 07/01/2018 uncontrolled -REMELT PAN TANK OPERATOR regimen: levemir 40 units QHS, Novolog 20-25 [...] up with local endocrinology in [facility] This is an individual we are [...] s/p suprapubic catheter that was admitted at [facility] for urosepsis, DKA, A fib [...] EF, LA size 3.5cm, no thrombus - PROPAGATOR to eval and treat - Video swallow [...] - Rocephin 07/01 - 07/05 FEN: - [place] thick PO fluids - Daily BMP - [...] 20,000 Units/ sodium bicarbonate 650 mg(#) PRN (Airfield Manager from Rx) Vital Signs: Last Filed in [...] the posterior medial left temporal lobe. 3. Gnosticist of flow void within the right M1 segment, previously noted to be occluded. Munira Ortega DO Pager [phone] Associated attestation - Diego Gutierrez MD - [...] anemia, [facility] again without a clear upper [...] DKA resolved -A1c 17.4 on 07/01/2018 uncontrolled -REMELT PAN TANK OPERATOR regimen: levemir 40 units QHS, Novolog 20-25 [...] up with local endocrinology in [facility] Anemia This patient is having ongoing [...] 20,000 Units/ sodium bicarbonate 650 mg(#) PRN (Airfield Manager from Rx) Objective Vital Signs: Last Filed [...] Screen NEG Electronic Crossmatch YES Unit Number [id number] Blood Component Type RBC,CPDA,LEUKO REDUCED Unit Division [...] to transfuse 1 unit of RBCs. * Alonoz Watt APRN-ROSEANN - 07/03/2018 4:13 PM CDT Formatting of this note may be different from the original. Neurology Progress Note Admission Date: 07/01/2018 LOS: 2 days Assessment: Mr. Caal a 57 y.o.male with new onset Atrial Fibrillation with RVR, HTN , HLD, T2DM, Diabetic Retinopathy, OD Blindness, Neovascular Glaucoma, Prostate Cancer s/p prostatectomy, Urinary Retention s/p suprapubic catheter that was admitted at [facility] for urosepsis, DKA, A fib [...] EF, LA size 3.5cm, no thrombus - PROPAGATOR to eval and treat - Video swallow [...] - UA negative for UTI FEN: - [place] thick PO fluids - Daily BMP - [...] 20,000 Units/ sodium bicarbonate 650 mg(#) PRN (Airfield Manager from Rx) Vital Signs: Last Filed in [...] the posterior medial left temporal lobe. 3. Gnosticist of flow void within the right M1 [...] s/p suprapubic catheter that was admitted at [facility] for urosepsis, DKA, A fib [...] 6 Standardized (T-scale) Score: 16.59 Basic Mobility [facility] 0-100%: 100 CMS G Code Modifier for [...] lift to chair for weekend, with staff nurse. Ivised mobility recommendation with bedside RN. RECOMMENDATIONS: PT Discharge Recommendations PT Discharge Recommendations: Inpatient Setting Therapist: Dolores Sampson, PT Date: 07/03/2018 * Mary Grace Stanton, OT - 07/03/2018 1:33 PM CDT Formatting of this note may be different from the original. OCCUPATIONAL THERAPY PROGRESS NOTE Patient Name: Valdez Anthony Room/Bed: [place] [address] Admitting Diagnosis: Stroke Past Medical History: Diagnosis [...] non verbal with left hemiplegia. Transferred to [email or web address] R MCA stroke s/p thrombectomy, stent 07/01. [...] occasionally in community. Prior Function Level Of [place]: Independent with ADLs and functional transfers Lives [...] s/p suprapubic catheter that was admitted at [facility] for urosepsis, DKA, A fib [...] Fed Thin Liquid: 1 oz, Cup, Straw [place] Thick Liquid: Cup, Straw Honey Thick Liquid: [...] spoon/cup and pureed /mech soft solids w/ PROPAGATOR only w/ less than 5% s/s of aspiration. Goal : Pt will participate in cognitive-communication assessment given mod cues. Therapist: BIANCA Lamb, L/CCC-PROPAGATOR Voalte: [phone] Date: 07/03/2018 * Alex Medel RN - [...] no feeding at this time. Alonzo Watt, RAPID EXTRACTOR OPERATOR, said the video swallow results are back [...] PM CDT Patient arrived to room # (7485) via bed accompanied by RN. Patient transferred [...] 9:20 PM CDT Pt transported to room [facility] via bed, RN x2, VSS. Pt 2100 [...] ASSESSMENT NOTE Patient Name: Valdez Anthony Room/Bed: [id number]/01 Admitting Diagnosis: Stroke Past Medical History: Diagnosis [...] occasionally in community. Prior Function Level Of [place]: Independent with ADLs and functional transfers Lives [...] s/p suprapubic catheter that was admitted at [facility] for urosepsis, DKA, A fib [...] Sampson, PT Date: 07/02/2018 * Alonzo Watt APRN-RAPID EXTRACTOR OPERATOR - 07/02/2018 1:20 PM CDT Vascular Neurology Interval Note Valdez Caal a 57 y.o.maleis a 57 y.o. male with new onset Atrial Fibrillation with RVR, HTN, HLD, T2DM, Diabetic Retinopathy, OD Blindness, Neovascular Glaucoma, Prostate Cancer s/p prostatectomy, Urinary Retention s/p suprapubic catheter that was admitted at [facility] for urosepsis, DKA , A fib [...] from the ICU. Updated plan: - NPO, PROPAGATOR to monitor swallow - Protein shake supplements - f/u on Blood Cxr's - Continue insulin gtt, consider endocrine consult - SBP <140 Alonzo Watt APRN-RAPID EXTRACTOR OPERATOR Vascular Neurology [id number] Associated attestation - Diego [...] is restart AC in 10 days, needs PROPAGATOR re-eval for get cleared otherwise PEG, Glu [...] pt completed videoswallow evaluation at [facility], which she states yielded recommendations for [...] Continue Treatment 3-5x/week. Prognosis: Fair NOMS Dysphagia Ratin1-Bajozwchbw-Ghnjvu Dysphagia -Not able to swallow safely by mouth for nutrition/hydration but may take some consistency w/ consistent max cues in therapy only. Alternative method of feeding required. Results Reported to Physician: Yes Objective* Relevant Med Background: 57 y.o. male with A-Fib (on Coumadin REMELT PAN TANK OPERATOR), IDDM, Prostate CA, OD blindness, HLD and [...] the posterior medial left temporal lobe. 3. Gnosticist of flow void within the right M1 [...] videoswallow evaluation given mild-mod cues. Therapist:BIANCA Lamb, Cesia/CCC-PROPAGATOR Voalte: [id number] Date:07/02/2018 * Ciarra Valentino DO - 07/02/2018 [...] s/p suprapubic catheter that was admitted at [facility] for urosepsis, DKA , A fib [...] involving the medial L temporal lobe. 3. Gnosticist of flow void in the R M1. - Stroke Risk Factor Modification -LDL 44. Goal <70. Continue tow boat captain atorvastatin 40mg -A1c 17.4. Goal <7.0 -Continue ASA. Will discuss timing of AC given Afib. -Goal BP <140 - PT/OT, Speech Consult - Consult to Rehab - Neuro-ICU monitoring, neurochecks q 1 hrs Encephalopathy -s/p Flumazenil 0.5mg x 2 -07/01 ABG 7.34/39/102/20.6 -07/01 EEG: Diffuse slowing indicative of encephalopathy. No seizures or epileptiform activity. -No sedation needs -Holding tow boat captain Bupropion, Duloxetine Sedation/Pain Management: -s/p ativan 2mg and fentanyl 25mcg -s/p flumazenil 0.5 mg x 3 -No sedation needs at this time Cardiac: Afib with RVR -[id number]: 4: 4.8% Risk for stroke and 6.7% [...] - Hydralazine prn SBP >140 - Continue tow boat captain Lisinopril 20mg HLD - LDL 44. Goal LDL <70. Continue tow boat captain atorvastatin 20mg Respiratory: Hypoxia likely [...] - Blood glucose goal 100-180mg/dl - Holding tow boat captain Levemir 16 units and Novolog [...] (157 lb 13.6 oz), SpO2 99 %. [place] coma score: E: 4 - Opens eyes [...] (Last 24 hours) Glucose: (!) 127 (07/02/18 7700) POC Glucose (Download): (!) 142 (07/02/18 6707) Lab Review: 24-hour labs: Results for orders [...] Range Color,UA STRAW Turbidity,UA CLEAR CLEAR-CLEAR Specific [place]-Urine 1.018 1.003 - 1.035 pH,UA 5.0 5.0 [...] O2 Sat-Arterial 97.5 95 - 99 % Rivrwarmhco-VAO-Rjv 20.6 (L) 21 - 28 MMOL/L POC [...] procedures reviewed. Ciarra Valentino, DO Date: 07/02/[phone] Associated attestation - Veronica Doyle MD - [...] outpatient follow up Jerry Baker MD Urology distribution field technician Please page distribution field technician with concerns * Jaycob Ramos DO [...] patient with Dr Valentino and the [facility] team. I agree with the [...] Doyle MD Date: 07/01/2018 * Whit Guadarrama MS,CCC-PROPAGATOR - 07/01/2018 1:36 PM CDT SPEECH-LANGUAGE PATHOLOGY NO TREATMENT NOTE Order received and appreciated for clinical swallow evaluation. Chart reviewed and made contact with RN. Pt currently with another provider and with decreased level of arousal/responsiveness following ativan administration in the helicopter. PROPAGATOR will hold at this time per discussion with RN. PROPAGATOR will follow up and will complete evaluation when pt medically appropriate. Addendum 15:20: pt remains somnolent and unable to sustain adequate level of arousal to participate in clinical swallow evaluation per discussion with RN. PROPAGATOR will return to complete evaluation when appropriate. Chart review: Mr. Anthony presented to [facility] on 06/29 with uro-sepsis and DKA. Supra-pubic [...] suggesting smaller completed infarct. Therapist: Whit Guadarrama MS,CCC-PROPAGATOR [id number] Date: 07/01/2018 * Mari Mullen RN - [...] Procedure History and Physical/Sedation Plan Name:Valdez COLONN: [id number] :1960 Age: 57 y.o. Date of Service: [...] s/p suprapubic catheter that was admitted at [facility] for urosepsis, DKA, A fib [...] Factor Modification -Lipid Panel and A1c. Continue tow boat captain atorvastatin 40mg -TTE -Start ASA. -Goal BP <140 - PT/OT, Speech Consult - Consult to Rehab - Neuro-ICU monitoring, neurochecks q 1 hrs Encephalopathy likely 2/2 to Ativan, Fentanyl -s/p Flumazenil 0.5mg x 2 -ABG -CT Head w/out contrast -No sedation needs -Holding tow boat captain Bupropion, Duloxetine Sedation/Pain Management: -s/p ativan 2mg and fentanyl 25mcg -s/p flumazenil 0.5 mg x 2 -No sedation needs at this time Cardiac: Afib with RVR -[id number]: 4: 4.8% Risk for stroke and 6.7% [...] due to bradycardia at OSH - Holding tow boat captain Lisinopril 20mg and Metoprolol 25mg BID HLD - Lipid Panel. Goal LDL <70. Continue tow boat captain atorvastatin 20mg Respiratory: DHRUV -RA [...] - Blood glucose goal 100-180mg/dl - Holding tow boat captain levemir, novolog FEN: - IVF: [...] p suprapubic catheter that was admitted at [facility] for urosepsis, DKA, A fib with RVR requiring cardizem ggt that was transferred for concerns for stroke. Admitted on 06/28 to [facility] with week history of cough, SOB. Found to have UTI with urosepsis and DKA with CO2 of 8, BG in 600s. Admitted to the ICU at [facility]. Started on CTX and Insulin ggt. While [...] language) 2=neither correct 2 1c. 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, creative services manager and release non-paretic hand (other [...] more than one modality 2 Score 32 [place] coma score: E: 2 - Opens eyes [...] diagnostic procedures reviewed. Ciarra Valentino, Date: 07/01/[phone] * Evdin Juarez, EPIC AMBULATORY ANALYST-RAPID EXTRACTOR OPERATOR - 07/01/2018 12:03 PM CDT Formatting of this note may be different from the original. Pre-Procedure History and Physical/Sedation Plan Procedure Date: 07/01/2018 Planned Procedure(s): Cerebral arteriogram Indication: Stroke intervention Chief Complaint: Acute stroke History of Present Illness: Valdez Anthoyn is a 57 y.o. male with a [...] Pertinent labs reviewed Edvin Juarez APRN-ROSEANN Pager [phone] in this encounter Procedure Notes * Amy Velasquez MD - 07/01/2018 8:07 PM CDT Procedure(s): EEG AWAKE & ASLEEP EEG REPORT Valdez Anthony 1960 [id number] DATE OF STUDY 07/01/18 PATIENT HISTORY: This [...] mL IVPB (MB+), 1 g, Intravenous, PRN (Airfield Manager from Rx) AND Ionized Calcium, , , [...] 250 mL IVPB, 8 mmol, Intravenous, PRN (Airfield Manager from Rx) AND Phosphorus, , , PRN [...] here. EGD showed s/p polypectomy. Transferred to [facility] for stroke. Hgb dropped from 10.1 [...] She also does mention that at the [facility] the patient did have an [...] Date Noted Sepsis (HCC) 01/15/2016 Severe sepsis ([facility]) 01/15/2016 LATISHA (acute kidney injury) ([facility]) 01/15/2016 High anion gap metabolic acidosis 01/15/2016 Past Medical History: Diagnosis Date Arthritis DM (diabetes mellitus) ([facility]) DM eyes Glaucoma Hypertension Social History [...] Color,UA YELLOW Turbidity,UA 2+ (A) CLEAR-CLEAR Specific [place]-Urine 1.017 1.003 - 1.035 pH,UA 5.0 5.0 [...] DKA resolved -A1c 17.4 on 07/01/2018 uncontrolled -REMELT PAN TANK OPERATOR regimen: levemir 40 units QHS, Novolog 20-25 [...] up with local endocrinology in [facility] Patient was seen and discussed with [...] with diabetes in 1994. He follows with flat sheet maker at [facility]. At home, he was taking Levemir 40 units once a day, NovoLog 20-25 units with meal, metformin 1000 mg twice a day. His states that flat sheet maker prescribe NovoLog 40 units 3 times a [...] reviewed. Brenda Larios Endocrine Fellow Pager # [phone] 07/03/2018 Associated attestation - John Chaudhry MD [...] thick full liquids today) Estimated Calorie Needs: 2914-6321 (25-28 kcal/kg desired wt) Estimated Protein Needs: 85-100 (1.2-1.4 g/kg desired wt) Oral Diet Order: Full Liquid, [place] Thick Liquids Current EN Order: Isosource 1.5 [...] s/p suprapubic catheter that was admitted at [facility] for urosepsis, DKA, A fib [...] 07/02. Pt pulled Corpak today despite mits. PROPAGATOR evaluated pt via video-swallow with moderate oropharyngeal dysphagia and baseline cognitive deficits. PROPAGATOR recommending nectar thick full liquids; diet ordered. [...] meal. Offer No Sugar Added "Light Start [place] Breakfast Essentials" shakes made with nectar thick [...] Intervention / Plan: assessed nutritional status; ordered [place] Breakfast shakes with nectar thick milk PRN monitor po intake, adequacy, tolerance and advancement per PROPAGATOR findings and recs monitor wt trends, labs, meds and GI status Nutrition Diagnosis: Altered GI function Etiology: swallowing and cognitive deficits Signs & Symptoms: PROPAGATOR findings and recs for nectar thick full liquids with supervision Goals: Patient to consume >75% of meals/supplements Time Frame: Within 72 Hours Tata Daniels, MS,RD, LD, [facility] *[id number] * Damian Hensley MD - 07/02/2018 1:16 PM CDT Associated Order(s): CONSULT REHABILITATION MEDICINE PHYSICIAN Formatting of this note may be different from the original. Rehabilitation Medicine Attending Physician Attestation: Agree with resident. Valdez Anthony is a pleasant 57 y.o. male with PMH of DM Type 2, HTN, HL, right eye blindness, glaucoma, prostate cancer s/p resection, who was admitted upon transfer from [facility] on 07/01/2018 after originally presenting there with sepsis determined to be secondary to UTI complicated by DKA and Atrial Fibrillation and then apparent AMS. [facility] right M1 occlusion. [...] complexity and goals with PT, OT, and PROPAGATOR for acute inpatient rehabilitation; however, he is [...] Please have primary SWCM discuss with [facility] talent acquisition coordinator according to the patient 's (and/or [...] a 57 y.o. male admitted to [facility] on 07/01/2018 with the [...] hours while supine in bed, pressure relief [id number] in seated position, PRAFOs for pressure relief and to prevent contractures Jaycob Ramos, Rehab Consult Pager: [phone] History of Present Illness Hospital Course: Valdez Anthony is a 57 y.o. male with new onset Atrial Fibrillation with RVR, HTN , HLD, T2DM, Diabetic Retinopathy, OD Blindness, Neovascular Glaucoma, Prostate Cancer s/p prostatectomy, Urinary Retention s/p suprapubic catheter that was admitted at [facility] for urosepsis, DKA, A fib with RVR [...] urosepsis. Rehab consulted for post acute rehab/placement. REMELT PAN TANK OPERATOR pt was independent and lived at home [...] Units/ sodium bicarbonate 650 mg(#) PRN ( Airfield Manager from Rx) Allergies: No Known Allergies Prior Level of Function Prior Function Level Of [place]: Independent with ADLs and functional transfers Lives [...] L spontaneously. Mitt and soft wrist restraints, [place] strap replaced end of session and bed [...] pt completed videoswallow evaluation at [facility], which she states yielded recommendations for [...] Skylar Heart - 07/09/2018 11:04 AM CDT SCUBA DIVER Note: This lead technical writer printed and placed transfer packet in pt's chart drawer, per request from [facility] Sophia Vaughn. [facility]ylar [facility] Processing Spec For additional assistance, please contact [facility] Sophia Vaughn *[phone] * Anesthesia Post Op Day 1 - [...] days Todays Date: 07/09/2018 Plan D/c to [facility] today at 1:00pm via facility w/c [...] or Referral ? Discharge Planning Discharge Planning: Retirement Facility WILLEM sent updated clinicals to [facility] at [phone]. Update 10:00am: WILLEM spoke with Perla ([phone]) at [facility] to update. Perla educated that they will be available for transportation today at 1:00pm. WILLEM spoke with Neuro Team to update. WILLEM spoke with bedside RN to update. WILLEM tasked SCUBA DIVER to deliver transfer packet. RN Report: [phone] WILLEM faxed d/c orders to [facility] at [phone]. ? Medication Needs ? Financial ? Legal [...] for the patient. Sophia Vaughn LMSW Phone: [phone] Pager: [phone] * Case Mgmt DC Plan - Sophia Vaughn - 07/08/2018 9:10 AM CDT Formatting of this note may be different from the original. Case Management Progress Note NAME:Valdez Anthony :1959 AGE: 57 y.o. ADMISSION DATE: 07/01/2018 DAYS ADMITTED: LOS: 7 days Todays Date: 07/08/2018 Plan Anticipate d/c to [facility] tomorrow pending pt stability. Interventions WILLEM [...] or Referral ? Discharge Planning Discharge Planning: Retirement Facility WILLEM received and returned message for Angela ([phone]) at [facility] to discuss referral. Update 10:00am: WILLEM spoke with Blanquita ([phone]) at [facility] to update of anticipated d/c timeline. Blanquita educated that they are still reviewing for potential admission and will be contacting pt's to further discuss an admission. However, they will notify WILLEM once decision reached. Update 10:44am: WILLEM spoke with Perla at [facility] to update. Perla educated that they are able to accept for admission and will have their w/c van available for such. ? Medication Needs ? Financial [employer] following for assistance with [employer] ariel. ? Legal ? Other Other/None: [...] for the patient. Sophia Vaughn LMSW Phone: [phone] Pager: [phone] * Care Plan - Shira Welch RN [...] Todays Date: 07/07/2018 Plan Anticipate d/c to [facility] tomorrow pending pt stability and facility acceptance. Interventions SW reviewed EMR and met with Neuro team for huddle. GI consulted. Anticipated EGD today. ? Support Support: Pt/Family Updates re:POC or DC Plan, Counseling for Adaptation to Illness, Counseling for Psychosocial issues ? Info or Referral ? Discharge Planning Discharge Planning: Retirement Facility WILLEM left message for Admissions ([phone]) at [facility] to discuss referral. Update 11:40am: WILLEM spoke with Hyacinth ([phone]) at [facility] and they are unable to locate referral. WILLEM agreeable to re-send referral to [phone], which WILLEM completed. Hyacinth educated that she will review and follow up. Hyacinth will also speak with her supervisor net making to discuss their ability to assist with transportation. Update 1:20pm: SW received message from Hyacinth and they are still unable to locate referral. WILLEM manually faxed referral to [phone], as requested. Update 2:00pm: WILLEM received message from Hyacinth that they only got a portion of the referral. WILLEM re-faxed referral to [phone]. Update 4:00pm: WILLEM received and returned message for Angela ([phone]) at [facility]. ? Medication Needs ? Financial ? [...] for the patient. Sophia Vaughn LMSW Phone: [phone] Pager: *[phone] * Care Plan - Shira Welch RN [...] Liana Ortiz - 07/06/2018 10:50 AM CDT [facility] Note: Received request from [facility] Sophia Vaughn to fax referrals to the following placements. [facility] also [facility] to [facility] van costs to the facility. [place] [facility] - $350-375 [facility] - $500-525 [facility] - $400-425 [facility] w/c van - $430 All subject to time, billed alliance party, needs, etc. Updated [facility] Liana Ortiz Processing Spec For additional assistance please contact [facility] Sophia Vaughn *[phone] * Case Mgmt DC Plan - Sophia Vaughn - 07/06/2018 10:36 AM CDT Formatting of this note may be different from the original. Case Management Progress Note NAME:Valdez Anthony :1959 AGE: 57 y.o. ADMISSION DATE: 07/01/2018 DAYS ADMITTED: LOS: 5 days Todays Date: 07/06/2018 Plan Anticipate d/c to [facility] tomorrow vs Friday pending pt stability and facility acceptance. Interventions SW reviewed EMR and met with Neuro team for huddle. Anticipate GI consult. Continue to monitor hgb. ? Support Support: Pt/Family Updates re:POC or DC Plan, Counseling for Adaptation to Illness, Counseling for Psychosocial issues SW visited pt and Leticia at bedside to discuss DCP. Leticia [facility]. SW agreeable and reviewed referral process. SW also reviewed potential private pay cost of w/c van should SNF be unable to assist. Leticia uncertain regarding their ability to private pay, however unwilling to remain in [facility] for SNF stay. SW agreeable to obtaining quote for ongoing assistance. ? Info or Referral ? Discharge Planning Discharge Planning: Retirement Facility SW tasked SCUBA DIVER to [facility]. SW tasked SCUBA DIVER to check rosenberg of w/c van. ? [...] for the patient. Sophia Vaughn LMSW Phone: [phone] Pager: [phone] * Case Mgmt DC Plan - Sophia [...] or Referral ? Discharge Planning Discharge Planning: Retirement Facility ? Medication Needs ? Financial ? [...] for the patient. Sophia Vaughn LMSW Phone: [phone] Pager: [phone] * Transfer - Ciarra Valentino, DO - [...] s/p suprapubic catheter that was admitted at [facility] for urosepsis, DKA , A fib [...] Started on ASA. LDL 40, continued on tow boat captain atrovastatin. PT/OT and Speech consulted. CV: Initially started on Nicardipine ggt for goal SBP <140. Restarted on tow boat captain lisinopril. Intermittent Afib on telemetry. [...] OSH. DKA resolved. Insulin ggt continued. Holding tow boat captain Levemir and Novolog. Consider Endocrine [...] Discharge Plan: Undetermined Ciarra Valentino DO Pager [phone] * Case Mgmt DC Plan - Sophia Vaughn - 07/01/2018 3:09 PM CDT Case Management Admission Assessment NAME:Valdez Anthony :1959 AGE: 57 y.o. ADMISSION DATE: 07/01/2018 DAYS ADMITTED: LOS: 0 days Todays Date: 07/01/2018 Source of Information: SW visited pt's Leticia and pt's OCTAVIANO Moseley at bedside. Plan Plan: CM Assessment, Assist PRN with SW/NC Services Patient Address/Phone [address] [phone] (home) Emergency Contact Extended Emergency Contact Information Primary Emergency Contact: Suzie English ([facility]) Relation: Relative Secondary Emergency Contact: Leticia Anthony (Judy) [facility] Mobile Relation: Spouse Healthcare [...] (Medicare Part A and B) Secondary Insurance: [place]/[facility] ([facility]) Additional Coverage: [place] (fills at [facility]. ) ? Source of Income Source Of Income: SSDI ? Financial Assistance Needed? None Psychosocial Needs ? Mental Health Mental Health History: No ? Substance Use History Substance Use History Screen: No ? Other None Current/Previous Services ? PCP Chris Seay APRN at [facility] ([phone] ext [phone]) ? Pharmacy [facility] [address] [address] ? Durable Medical Equipment Durable Medical Equipment [...] ? Outpatient Therapy PT: No OT: No PROPAGATOR: No ? Retirement Facility/Senior Care SNF: No NH: No Pt's OCTAVIANO Moseley works at [employer], therefore family understanding of LTC and SNF level of cares. ? Inpatient Rehab IPR: No ? Long-Term Acute Care Hospital LTACH: No ? Acute Hospital Stay Acute Hospital Stay: In the past Was patient's stay within the last 30 days?: No Sophia Vaughn LMSW Phone: [phone] Pager: [phone] * Acute Stroke Response - Alonzo Watt [...] 57 y.o. male with A-Fib (on Coumadin REMELT PAN TANK OPERATOR), IDDM, Prostate CA, OD blindness, HLD and [...] due to positive occult) - 300mg ASA NH daily - Echocardiogram - MRI head w/o contrast in AM of 07/02 - Monitor telemetry for arrhythmia - NPO - PROPAGATOR to eval speech when more alert - PT/OT to eval and treat - Rehab Medicine Consult The patient was seen and discussed with Dr. Gutierrez History of Present Ilness History of Present Illness: Mr. Anthony presented to [facility] on 06/29 with uro-sepsis and DKA. Supra- [...] to IR for EVT. At [facility] he had dropping Hgb and positive heme [...] language) 2=neither correct 2 1c. 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, creative services manager and release non-paretic hand (other [...] Medications: [MAR Hold] calcium gluconate IV PRN (Airfield Manager from Rx) AND Ionized Calcium PRN AND Notify Physician Ongoing, [MAR Hold] magnesium sulfate PRN AND Magnesium PRN AND Notify Physician Ongoing, [MAR Hold] potassium chloride SR PRN OR [MAR Hold] potassium chloride PRN, [MAR Hold] sodium phosphate IVPB PRN (Airfield Manager from Rx) AND Phosphorus PRN AND Notify [...] Date: 07/01/2018 Attending Physician: Lulu Perry MD Log Washer(s): Miri Nair Stroke Treatment Time out performed: [...] Sedated from ativan Lulu Perry MD Pager: [phone] * Acute Stroke Response - Hannah Ceballos RN - 07/01/2018 12:14 PM CDT Formatting of this note may be different from the original. RN Stroke Activation Summary Date of Service: 07/01/2018 Valdez Anthony is a 57 y.o. male. : 1960 Allergies: Patient has no known allergies. Patient Arrival: 1118 ASRT Arrival: 1108 Location of Response : [place] [address] [facility] elevator 2nd floor Page Received: 1102 (ETA 10 minutes) EMS Agency: [facility] Outside Hospital: [facility] Clinical Presentation: [...] Summary: Report received from MAXINE Pardo at [facility] in [place], [place]. Per report patient last known well today at 0730. At 0825 she noted patient to be less responsive with left side flaccid, dysarthria and left facial droop. [facility] transferred to [facility] and upon arrival had decreased LOC. Flight [...] time: 1145 N/A Plan: Patient admitted to [place] 5120 post procedure for further evaluation and [...] MG/DL [facility] Performing Organization Address [facility] Phone Number [facility] MAIN LAB [address] [place] [address] * POC GLUCOSE (07/09/2018 3:34 PM) Glucose, POC 66 (L) 70 - 100 MG/DL [facility] Performing Organization Address [facility] Phone Number [facility] [address] [place] [address] * POC GLUCOSE (07/09/2018 3:18 PM) Glucose, POC 69 (L) 70 - 100 MG/DL [facility] Performing Organization Address [facility] Phone Number [facility] [address] [place] [address] * POC GLUCOSE (07/09/2018 1:49 PM) Glucose, POC 136 (H) 70 - 100 MG/DL [facility] Performing Organization Address [facility] Phone Number [facility] [address] [place] [address] * POC GLUCOSE (07/09/2018 11:40 AM) Glucose, POC 158 (H) 70 - 100 MG/DL [facility] Performing Organization Address [facility] Phone Number [facility] [address] [place] [address] * POC GLUCOSE (07/09/2018 8:35 AM) Glucose, POC 104 (H) 70 - 100 MG/DL [facility] Performing Organization Address [facility] Phone Number [facility] [address] [place] [address] * COMPREHENSIVE METABOLIC PANEL (07/09/2018 5:47 AM) [...] for questions. Specimen Blood Performing Organization Address [facility] Phone Number [facility] [address] [place] [address] * CBC AND DIFF (07/09/2018 5:47 AM) [...] LAB Eosinophils 1 0 - 5 % [facility] LAB Basophils 0 0 - 2 % [facility] LAB Absolute Neutrophil Count 11.70 (H) 1.8 - 7.0 K/[facility] MAIN LAB Absolute Lymph Count 2.10 1.0 - 4.8 K/[facility] MAIN LAB Absolute Monocyte Count 1.30 (H) 0 - 0.80 K/[facility] LAB Absolute Eosinophil Count 0.20 0 - 0.45 K[facility] MAIN LAB Absolute Basophil Count 0.00 0 - 0.20 [facility] MAIN LAB Specimen Blood Performing Organization Address City/[facility] Phone Number MAIN LAB [address] [place] [address] * POC GLUCOSE (07/09/2018 3:09 AM) Glucose, POC 151 (H) 70 - 100 MG/DL MAIN LAB Performing Organization Address City/[facility] Phone Number MAIN LAB [address] [place] [address] * POC GLUCOSE (07/09/2018 1:10 AM) Glucose, POC 80 70 - 100 MG/DL [facility] Performing Organization Address City/[facility] Phone Number MAIN LAB [address] [place] [address] * CULTURE-BLOOD W/SENSITIVITY (07/08/2018 10:25 PM) Battery Name BLOOD CULTURE [facility] Specimen Description BLOOD MAIN LAB LEFT HAND Special Requests NONE MAIN LAB Culture NO GROWTH 5 DAYS MAIN LAB Report Status FINAL MAIN LAB 07/14/2018 Specimen Blood Performing Organization Address City/[facility]/Zipcode Phone Number MAIN LAB [address] [place] [address] * POC GLUCOSE (07/08/2018 9:52 PM) Glucose, POC 96 70 - 100 MG/DL [facility] Performing Organization Address City/[facility]/Zipcode Phone Number MAIN LAB [address] [place] [address] * CULTURE-BLOOD W/SENSITIVITY (07/08/2018 8:20 PM) Battery Name BLOOD CULTURE MAIN LAB Specimen Description BLOOD MAIN LAB LEFT ANTECUBITAL Special Requests NONE MAIN LAB Culture NO GROWTH 5 DAYS MAIN LAB Report Status FINAL MAIN LAB 07/14/2018 Specimen Blood Performing Organization Address City/[facility]/Zipcode Phone Number MAIN LAB [address] [place] [address] * POC GLUCOSE (07/08/2018 5:56 PM) Glucose, POC 129 (H) 70 - 100 MG/DL [facility] Performing Organization Address City/[facility] Phone Number MAIN LAB [address] [place] [address] * SURGICAL PATHOLOGY (07/08/2018 4:34 PM) PATHOLOGY REPORT [email or web address] Department of Pathology and Laboratory Medicine [address] [place] [address] Surgical Pathology Office:[phone] :[phone] SURGICAL PATHOLOGY REPORT NAME: VALDEZ ANTHONY SURG PATH #: [id number] MR #: [id number] SPECIMEN CLASS: SR BILLING #: [id number] ALT ID #:LOCATION: DISCHARGED DATE OF PROCEDURE: [...] LAB Specimen Urine Performing Organization Address [facility] Phone Number [facility] [address] [place] [address] * URINALYSIS MICROSCOPIC REFLEX TO CULTURE (07/08/2018 4:09 PM) WBCs,UA 0-2 0 - 2 /HPF [facility] MAIN [facility] RBCs,UA 0-2 0 - 3 /HPF [facility] Comment,UA Urine submitted for reflex [facility] culture if criteria are met:WBC>10, positive nitrite and/or >=1+ leukocyte esterase. If quantity is not sufficient, an addendum will follow. Specimen Urine Performing Organization Address [facility] Phone Number [facility] [address] [phone] * URINALYSIS DIPSTICK REFLEX TO CULTURE (07/08/2018 4:09 PM) Color,UA STRAW [facility] Turbidity,UA CLEAR CLEAR-CLEAR [facility] Specific [place]-Urine 1.005 1.003 - 1.035 [facility] MAIN LAB [...] LAB Specimen Urine Performing Organization Address [facility] Phone Number MAIN LAB [address] [place] [address] * CHEST SINGLE VIEW (07/08/2018 2:15 PM) [...] on 07/08/2018 2:17 PM. Performing Organization Address City/[facility]/Zipcode Phone Number [facility] RAD RESULTS * POC GLUCOSE (07/08/2018 1:57 PM) Glucose, POC 75 70 - 100 MG/DL [facility] Performing Organization Address City/[facility] Phone Number [facility] MAIN LAB [address] [place] [address] * POC GLUCOSE (07/08/2018 1:21 PM) Glucose, POC 67 (L) 70 - 100 MG/DL [facility] Performing Organization Address City/[facility]/Zipcode Phone Number [facility] [address] [place] [address] * POC GLUCOSE (07/08/2018 11:46 AM) Glucose, POC 164 (H) 70 - 100 MG/DL [facility] Performing Organization Address City/[facility] Phone Number [facility] [address] [place] [address] * POC GLUCOSE (07/08/2018 11:22 AM) Glucose, POC 40 (LL) 70 - 100 MG/DL MAIN LAB Performing Organization Address City/State/Zipcode Phone Number MAIN LAB [address] [place] [address] * EGD REPORT (07/08/2018 10:48 AM) Provation Report Patient Name: Raj DIMAS OTHER RESULTS Procedure Date: 07/08/2018 10:48 AM CSN: [id number] Date of : 1960 Gender: Male Attending Physician: Clara Carolina MD Procedure: Upper GI endoscopy Indications: Anemia (Mixed picture of anemia of chronic disease + Iron deficiency anemia), new onset of Afib and not on AC. Providers: Clara Carolina MD (Doctor), Roberto Dutta MD (Fellow), Alvaro Banegas (Nurse), Minna Jiménez RN (Nurse), Abisai Burden, Spray Gun Repairer Helper (Spray Gun Repairer Helper) Referring Physician: Referral Self Medications: Monitored Anesthesia [...] 55 seconds Procedure Code(s): --- Professional --- 08663, Esophagogastroduodenoscopy, flexible, transoral; with biopsy, single or multiple Diagnosis Code(s): --- Professional --- K44.9, Diaphragmatic hernia without obstruction or gangrene K31.89, Other diseases of stomach and duodenum D50.0, Iron deficiency anemia secondary to blood loss (chronic) CPT copyright 2016 [employer]. All rights reserved. The codes documented in this report are preliminary and upon investor review may be revised to meet current [...] OTHER RESULTS Procedure Date: 07/08/2018 10:47 AM [facility]: [id number] Date of : 1960 Gender: Male Attending Physician: Clara Carolina MD Procedure: Colonoscop y Indications: Anemia (Mixed picture of anemia of chronic disease + Iron deficiency anemia), new onset of Afib and not on AC. Providers: Clara Carolina MD (Doctor), Roberto Dutta MD (Fellow), Alvaro Banegas (Nurse), Minna Jiménez RN (Nurse), Abisai Burden Spray Gun Repairer Helper (Spray Gun Repairer Helper) Referring Physician: Gerard Salazar MD Medications: Monitored [...] 15 seconds Procedure Code(s): --- Professional --- 15656, Colonoscopy, flexible; diagnostic, including collection of specimen(s) by brushing or washing, when performed (separate procedure) Diagnosis Code(s): --- Professional --- D50.0, Iron deficiency anemia secondary to blood loss (chronic) CPT copyright 2016 [employer]. All rights reserved. The codes documented in this report are preliminary and upon investor review may be revised to meet current [...] Address City/State/Zipcode Phone Number MAIN LAB [address] [place] [address] * PROCALCITONIN (07/08/2018 5:53 AM) Procalcitonin 0.13 (H) <0.10 NG/ML [facility] Performing Organization Address [facility] Phone Number [facility] [address] [place] [address] * COMPREHENSIVE METABOLIC PANEL (07/08/2018 5:53 AM) [...] for questions. Specimen Blood Performing Organization Address [facility]/Zipcode Phone Number [facility] [address] [place] [address] * CBC AND DIFF (07/08/2018 5:53 AM) [...] MAIN LAB Specimen Blood Performing Organization Address City/[facility] Phone Number [facility] LAB [address] [place] [address] * POC GLUCOSE (07/07/2018 9:26 PM) Glucose, POC 176 (H) 70 - 100 MG/DL [facility] Performing Organization Address City/[facility] Phone Number [facility] LAB [address] [place] [address] * POC GLUCOSE (07/07/2018 5:54 PM) Glucose, POC 111 (H) 70 - 100 MG/DL [facility]IN [facility] Performing Organization Address City/[facility] Phone Number [facility] LAB [address] [place] [address] * POC GLUCOSE (07/07/2018 11:30 AM) Glucose, POC 90 70 - 100 MG/DL [facility] Performing Organization Address City/[facility] Phone Number [facility] LAB [address] [place] [address] * CBC AND DIFF (07/07/2018 8:00 AM) [...] 1.90 (H) 0 - 0.80 K/UL [facility] LAB Absolute Eosinophil Count 0.20 0 - 0.45 K/UL [facility] MAIN [facility] Absolute Basophil Count 0.10 0 - 0.20 K/UL MAIN LAB Specimen Blood Performing Organization Address City/State/Zipcode Phone Number [facility] [address] [place] [address] * POC GLUCOSE (07/07/2018 7:49 AM) Glucose, POC 182 (H) 70 - 100 MG/DL MAIN LAB Performing Organization Address City/[facility] Phone Number [facility] [address] [place] [address] * COMPREHENSIVE METABOLIC PANEL (07/07/2018 5:45 AM) [...] Clinical Pharmacist for questions. Performing Organization Address City/[facility]/Zipcode Phone Number MAIN LAB [address] [place] [address] * HEMOGLOBIN (07/07/2018 5:45 AM) Hemoglobin 9.5 (L) 13.5 - 16.5 GM/DL MAIN LAB Comment: Corrected on 07/09 AT 1021: previously reported as DUPLICATE ORDER, Corrected on 07/07 AT 0811: previously reported as 9.5 Specimen Blood Performing Organization Address City/[facility] Phone Number MA[facility] LAB [address] [place] [address] * HEMOGLOBIN (07/06/2018 10:45 PM) Hemoglobin 10.5 (L) 13.5 - 16.5 GM/DL MAIN LAB Specimen Blood Performing Organization Address City/[facility]/Zipcode Phone Number MAIN LAB [address] [place] [address] * OCCULT BLOOD NON COLON CANCER SCREEN (07/06/2018 10:45 PM) Battery Name OCCULT BLOOD SCREEN MAIN LAB Specimen Description FECES [facility] Special Requests NONE [facility] Occult Blood NEGATIVE MAIN LAB Report Status FINAL MAIN LAB 07/06/2018 Specimen Stool - Feces Performing Organization Address City/[facility]/Zipcode Phone Number MAIN LAB [address] [place] [address] * POC GLUCOSE (07/06/2018 9:04 PM) Glucose, POC 115 (H) 70 - 100 MG/DL [facility] Performing Organization Address City/[facility]/Zipcode Phone Number MAIN LAB [address] [place] [address] * POC GLUCOSE (07/06/2018 5:11 PM) Glucose, POC 150 (H) 70 - 100 MG/DL [facility]IN [facility] Performing Organization Address City/[facility]/Zipcode Phone Number MAIN LAB [address] [place] [address] * POC GLUCOSE (07/06/2018 2:36 PM) Glucose, POC 196 (H) 70 - 100 MG/DL MAIN LAB Performing Organization Address City/[facility]/Zipcode Phone Number MAIN LAB [address] [place] [address] * HEMOGLOBIN (07/06/2018 1:31 PM) Hemoglobin 8.9 (L) 13.5 - 16.5 GM/DL MAIN LAB Specimen Blood Performing Organization Address City/[facility]/Zipcode Phone Number MAIN LAB [address] [place] [address] * POC GLUCOSE (07/06/2018 11:49 AM) Glucose, POC 153 (H) 70 - 100 MG/DL MAIN LAB Performing Organization Address City/[facility]/Zipcode Phone Number MAIN LAB [address] [place] [address] * POC GLUCOSE (07/06/2018 7:29 AM) Glucose, POC 130 (H) 70 - 100 MG/DL MAIN LAB Performing Organization Address City/[facility]/Zipcode Phone Number MAIN LAB [address] [place] [address] * HEMOGLOBIN (07/06/2018 4:27 AM) Hemoglobin 9.1 (L) 13.5 - 16.5 GM/DL MAIN LAB Specimen Blood Performing Organization Address City/[facility]/Zipcode Phone Number MAIN LAB [address] [place] [address] * CBC (07/06/2018 4:27 AM) White Blood [...] MAIN LAB Specimen Blood Performing Organization Address City/[facility] Phone Number [facility] [address] [place] [address] * BASIC METABOLIC PANEL (07/06/2018 4:27 AM) [...] Pharmacist for questions. eGFR >60 >60 mL/min [facility] Comment: The eGFR is not validated for use in drug dosing adjustments.Continue to use estimated creatinine clearance per dosing reference text.Please contact the Clinical Pharmacist for questions. Specimen Blood Performing Organization Address City/[facility] Phone Number [facility] [address] [place] [address] * POC GLUCOSE (07/06/2018 2:35 AM) Glucose, POC 132 (H) 70 - 100 MG/DL MAIN LAB Performing Organization Address City/[facility]/Zipcode Phone Number [facility] [address] [place] [address] * POC GLUCOSE (07/05/2018 10:09 PM) Glucose, POC 89 70 - 100 MG/DL [facility] MAIN [facility] Performing Organization Address City/[facility]/Zipcode Phone Number [facility]IN [facility] [address] [place] [address] * HEMOGLOBIN (07/05/2018 9:40 PM) Hemoglobin 10.1 (L) 13.5 - 16.5 GM/DL MAIN LAB Specimen Blood Performing Organization Address City/[facility] Phone Number [facility] [address] [place] [address] * POC GLUCOSE (07/05/2018 9:37 PM) Glucose, POC 77 70 - 100 MG/DL [facility] Performing Organization Address City/[facility] Phone Number [facility] LAB [address] [place] [address] * POC GLUCOSE (07/05/2018 8:15 PM) Glucose, POC 81 70 - 100 MG/DL [facility]IN [facility] Performing Organization Address City/[facility] Phone Number MAIN LAB [address] [place] [address] * CULTURE-URINE W/SENSITIVITY (07/05/2018 6:45 PM) Battery Name URINE CULTURE [facility] MAIN [facility] Specimen Description URINE [facility] Special Requests NONE [facility] MAIN [facility] Culture NO GROWTH [facility] Report Status FINAL [facility]IN [facility] 07/06/2018 Specimen Urine Performing Organization Address City/[facility] Phone Number [facility] [address] [place] [address] * UA REFLEX CULTURE LABEL (07/05/2018 6:45 PM) UA Reflex Culture LAB LABEL [facility]IN [facility] Specimen Urine Performing Organization Address City/[facility]/Zipcode Phone Number [facility]IN [facility] [address] [place] [address] * URINALYSIS MICROSCOPIC REFLEX TO CULTURE (07/05/2018 [...] MAIN LAB Specimen Urine Performing Organization Address City/[facility] Phone Number [facility] [address] [place] [address] * URINALYSIS DIPSTICK REFLEX TO CULTURE (07/05/2018 6:45 PM) Color,UA YELLOW [facility]IN [facility] Turbidity,UA 2+ (A) CLEAR-CLEAR [facility] MAIN [facility] Specific [place]-Urine 1.017 1.003 - 1.035 [facility] MAIN LAB [...] MAIN LAB Specimen Urine Performing Organization Address [facility] Phone Number [facility] [address] [place] [address] * POC GLUCOSE (07/05/2018 4:37 PM) Glucose, POC 79 70 - 100 MG/DL [facility] Performing Organization Address [facility] Phone Number [facility] [address] [place] [address] * POC GLUCOSE (07/05/2018 2:02 PM) Glucose, POC 92 70 - 100 MG/DL [facility] Performing Organization Address [facility] Phone Number [facility] [address] [place] [address] * HEMOGLOBIN (07/05/2018 2:00 PM) Hemoglobin 9.6 (L) 13.5 - 16.5 GM/DL [facility]IN [facility] Specimen Blood Performing Organization Address City/[facility] Phone Number [facility] [address] [place] [address] * POC GLUCOSE (07/05/2018 11:32 AM) Glucose, POC 102 (H) 70 - 100 MG/DL [facility] Performing Organization Address [facility] Phone Number [facility] [address] [place] [address] * ABDOMEN AP ONLY (07/05/2018 9:20 AM) [...] on 07/05/2018 10:21 AM. Performing Organization Address City/[facility] Phone Number [facility] RES[facility] * POC GLUCOSE (07/05/2018 6:56 AM) Glucose, POC 139 (H) 70 - 100 MG/DL [facility] Performing Organization Address City/[facility] Phone Number [facility] [address] [place] [address] * CBC (07/05/2018 5:50 AM) White Blood [...] MAIN LAB Specimen Blood Performing Organization Address City/[facility]/Zipcode Phone Number MAIN LAB [address] [place] [address] * POC GLUCOSE (07/05/2018 5:29 AM) Glucose, POC 125 (H) 70 - 100 MG/DL [facility] Performing Organization Address City/[facility] Phone Number MA[facility] LAB [address] [place] [address] * BASIC METABOLIC PANEL (07/05/2018 5:25 AM) [...] City/State/Zipcode Phone Number [facility] [address] [place] [address] * POC GLUCOSE (07/05/2018 2:37 AM) Glucose, POC 103 (H) 70 - 100 MG/DL [facility] Performing Organization Address City/State/Zipcode Phone Number [facility] [address] [place] [address] * POC GLUCOSE (07/05/2018 1:31 AM) Glucose, POC 94 70 - 100 MG/DL [facility] Performing Organization Address City/State/Zipcode Phone Number [facility] [address] [place] [address] * POC GLUCOSE (07/05/2018 12:41 AM) Glucose, POC 121 (H) 70 - 100 MG/DL [facility] Performing Organization Address City/[facility]/Zipcode Phone Number MAIN LAB [address] [place] [address] * POC GLUCOSE (07/04/2018 11:19 PM) Glucose, POC 84 70 - 100 MG/DL [facility] Performing Organization Address City/[facility]/Zipcode Phone Number MAIN LAB [address] [place] [address] * HEMOGLOBIN (07/04/2018 9:30 PM) Hemoglobin 13.5 13.5 - 16.5 GM/DL [facility] MAIN [facility] Specimen Blood Performing Organization Address City/[facility]/Zipcode Phone Number MAIN LAB [address] [place] [address] * POC GLUCOSE (07/04/2018 9:15 PM) Glucose, POC 105 (H) 70 - 100 MG/DL [facility] Performing Organization Address City/[facility]/Zipcode Phone Number [facility]IN [facility] [address] [place] [address] * POC GLUCOSE (07/04/2018 7:50 PM) Glucose, POC 164 (H) 70 - 100 MG/DL [facility] Performing Organization Address City/State/Zipcode Phone Number [facility] [address] [place] [address] * POC GLUCOSE (07/04/2018 7:23 PM) Glucose, POC 44 (LL) 70 - 100 MG/DL [facility] Performing Organization Address City/[facility] Phone Number [facility] [address] [place] [address] * POC GLUCOSE (07/04/2018 5:10 PM) Glucose, POC 96 70 - 100 MG/DL [facility]IN [facility] Performing Organization Address City/[facility] Phone Number [facility] [address] [place] [address] * IRON + BINDING CAPACITY + %SAT+ FERRITIN (07/04/2018 2:20 PM) Iron 49 (L) 50 - 185 MCG/DL [facility] MAIN LAB Iron Binding-TIBC 212 (L) 270 - 380 MCG/DL [facility]IN [facility] % Saturation 23 (L) 28 - 42 % [facility]IN [facility] Ferritin 383 (H) 30 - 300 NG/ML [facility]IN [facility] Specimen Blood Performing Organization Address City/[facility] Phone Number [facility] [address] [place] [address] * POC GLUCOSE (07/04/2018 2:19 PM) Glucose, POC 137 (H) 70 - 100 MG/DL [facility]IN [facility] Performing Organization Address City/[facility] Phone Number [facility] [address] [place] [address] * POC GLUCOSE (07/04/2018 1:42 PM) Glucose, POC 114 (H) 70 - 100 MG/DL [facility]IN [facility] Performing Organization Address City/[facility] Phone Number [facility] [address] [place] [address] * POC GLUCOSE (07/04/2018 1:16 PM) Glucose, POC 55 (L) 70 - 100 MG/DL [facility]IN [facility] Performing Organization Address City/[facility]/Zipcode Phone Number [facility]IN [facility] [address] [place] [address] * HEMOGLOBIN (07/04/2018 1:15 PM) Hemoglobin 9.4 (L) 13.5 - 16.5 GM/DL [facility] MAIN [facility] Specimen Blood Performing Organization Address City/State/Zipcode Phone Number MAIN LAB [address] [place] [address] * POC GLUCOSE (07/04/2018 12:52 PM) Glucose, POC 66 (L) 70 - 100 MG/DL [facility]IN [facility] Performing Organization Address City/State/Zipcode Phone Number MAIN LAB [address] [place] [address] * POC GLUCOSE (07/04/2018 12:19 PM) Glucose, POC 66 (L) 70 - 100 MG/DL [facility]IN [facility] Performing Organization Address City/State/Zipcode Phone Number MAIN LAB [address] [place] [address] * POC GLUCOSE (07/04/2018 12:17 PM) Glucose, POC 59 (L) 70 - 100 MG/DL [facility] MAIN [facility] Performing Organization Address City/[facility]/Zipcode Phone Number MAIN LAB [address] [place] [address] * POC GLUCOSE (07/04/2018 10:28 AM) Glucose, POC 144 (H) 70 - 100 MG/DL MAIN LAB Performing Organization Address City/[facility]/Zipcode Phone Number MAIN LAB [address] [place] [address] * POC GLUCOSE (07/04/2018 9:31 AM) Glucose, POC 197 (H) 70 - 100 MG/DL MAIN LAB Performing Organization Address City/[facility]/Zipcode Phone Number MAIN LAB [address] [place] [address] * POC GLUCOSE (07/04/2018 8:38 AM) Glucose, POC 184 (H) 70 - 100 MG/DL [facility] MAIN [facility] Performing Organization Address City/[facility]/Zipcode Phone Number MAIN LAB [address] [place] [address] * POC GLUCOSE (07/04/2018 7:29 AM) Glucose, POC 150 (H) 70 - 100 MG/DL [facility] MAIN [facility] Performing Organization Address City/State/Zipcode Phone Number MAIN LAB [address] [place] [address] * POC GLUCOSE (07/04/2018 6:31 AM) Glucose, POC 119 (H) 70 - 100 MG/DL [facility] MAIN [facility] Performing Organization Address [facility] Phone Number MAIN LAB [address] [place] [address] * CBC (07/04/2018 5:47 AM) White Blood [...] MAIN LAB Specimen Blood Performing Organization Address City/[facility] Phone Number [facility] [address] [place] [address] * BASIC METABOLIC PANEL (07/04/2018 5:47 AM) [...] for questions. Specimen Blood Performing Organization Address City/[facility] Phone Number [facility] [address] [place] [address] * POC GLUCOSE (07/04/2018 5:36 AM) Glucose, POC 126 (H) 70 - 100 MG/DL [facility] MAIN [facility] Performing Organization Address City/[facility] Phone Number [facility] LAB [address] [place] [address] * POC GLUCOSE (07/04/2018 4:36 AM) Glucose, POC 94 70 - 100 MG/DL [facility] MAIN [facility] Performing Organization Address City/[facility] Phone Number [facility] LAB [address] [place] [address] * POC GLUCOSE (07/04/2018 3:24 AM) Glucose, POC 120 (H) 70 - 100 MG/DL [facility] MAIN [facility] Performing Organization Address [facility] Phone Number MAIN LAB [address] [place] [address] * POC GLUCOSE (07/04/2018 2:14 AM) Glucose, POC 112 (H) 70 - 100 MG/DL MAIN LAB Performing Organization Address [facility] Phone Number MAIN LAB [address] [place] [address] * POC GLUCOSE (07/04/2018 12:37 AM) Glucose, POC 126 (H) 70 - 100 MG/DL MAIN LAB Performing Organization Address [facility] Phone Number MAIN LAB [address] [place] [address] * BLOOD TYPE CONFIRMATION - ORDER ONLY IF REQUESTED BY LAB (07/04/2018 12:13 AM) ABO/RH(D) O NEG MAIN LAB Specimen Blood Performing Organization Address [facility] Phone [facility]IN LAB [address] [place] [address] * TYPE & CROSSMATCH (07/03/2018 11:48 PM) Units Ordered 1 MAIN LAB Crossmatch Expires 07/06/2018 MAIN LAB Record Check 2ND TYPE REQUIRED MAIN LAB ABO/RH(D) O NEG MAIN LAB Antibody Screen NEG MAIN LAB Electronic Crossmatch YES MAIN LAB Unit Number [id number] MAIN LAB Blood Component Type RBC,CPDA,LEUKO REDUCED MAIN LAB Unit Division 0 MAIN LAB Status OF Unit TRANSFUSED MAIN LAB Transfusion Status OK TO TRANSFUSE MAIN LAB Crossmatch Result COMPATIBLE,ELECTRONIC MAIN LAB Specimen Blood Performing Organization Address City/[facility]/Zipcode Phone Number MAIN LAB [address] [place] [address] * POC GLUCOSE (07/03/2018 11:21 PM) Glucose, POC 197 (H) 70 - 100 MG/DL [facility] MAIN LAB Performing Organization Address City/State/Zipcode Phone Number MAIN LAB [address] [place] [address] * POC GLUCOSE (07/03/2018 10:12 PM) Glucose, POC 218 (H) 70 - 100 MG/DL K[facility] MAIN LAB Performing Organization Address City/[facility]/Zipcode Phone Number MAIN LAB [address] [place] [address] * HEMOGLOBIN (07/03/2018 10:02 PM) Hemoglobin 6.8 (L) 13.5 - 16.5 GM/DL MAIN LAB Specimen Blood Performing Organization Address City/[facility]/Zipcode Phone Number MAIN LAB [address] [place] [address] * POC GLUCOSE (07/03/2018 9:19 PM) Glucose, POC 187 (H) 70 - 100 MG/DL [facility] MAIN LAB Performing Organization Address City/[facility]/Zipcode Phone Number MAIN LAB [address] [place] [address] * POC GLUCOSE (07/03/2018 7:40 PM) Glucose, POC 113 (H) 70 - 100 MG/DL MAIN LAB Performing Organization Address City/[facility]/Zipcode Phone Number MAIN LAB [address] [place] [address] * POC GLUCOSE (07/03/2018 6:37 PM) Glucose, POC 143 (H) 70 - 100 MG/DL [facility] MAIN LAB Performing Organization Address City/[facility]/Zipcode Phone Number MAIN LAB [address] [place] [address] * POC GLUCOSE (07/03/2018 5:31 PM) Glucose, POC 157 (H) 70 - 100 MG/DL [facility] MAIN LAB Performing Organization Address City/State/Zipcode Phone Number [facility] MAIN [facility] [address] [place] [address] * POC GLUCOSE (07/03/2018 4:35 PM) Glucose, POC 190 (H) 70 - 100 MG/DL [facility] MAIN LAB Performing Organization Address City/State/Zipcode Phone Number [facility] MAIN [facility] [address] [place] [address] * POC GLUCOSE (07/03/2018 3:36 PM) Glucose, POC 190 (H) 70 - 100 MG/DL [facility] MAIN LAB Performing Organization Address City/State/Zipcode Phone Number MAIN LAB [address] [place] [address] * HEMOGLOBIN (07/03/2018 3:25 PM) Hemoglobin 7.2 (L) 13.5 - 16.5 GM/DL [facility] MAIN LAB Specimen Blood Performing Organization Address City/State/Zipcode Phone Number MAIN LAB [address] [place] [address] * POC GLUCOSE (07/03/2018 2:22 PM) Glucose, POC 176 (H) 70 - 100 MG/DL [facility] MAIN LAB Performing Organization Address City/[facility]/Zipcode Phone Number MAIN LAB [address] [place] [address] * POC GLUCOSE (07/03/2018 1:24 PM) Glucose, POC 254 (H) 70 - 100 MG/DL [facility] MAIN LAB Performing Organization Address City/State/Zipcode Phone Number MAIN LAB [address] [place] [address] * POC GLUCOSE (07/03/2018 12:20 PM) Glucose, POC 307 (H) 70 - 100 MG/DL [facility] MAIN LAB Performing Organization Address City/State/Zipcode Phone Number MAIN LAB [address] [place] [address] * POC GLUCOSE (07/03/2018 10:45 AM) Glucose, POC 268 (H) 70 - 100 MG/DL [facility] MAIN LAB Performing Organization Address City/State/Zipcode Phone Number MAIN LAB [address] [place] [address] * POC GLUCOSE (07/03/2018 9:22 AM) Glucose, POC 233 (H) 70 - 100 MG/DL [facility] Performing Organization Address City/State/[facility] Phone Number [facility] LAB [address] [place] [address] * SWALLOW MOTION SERIES (07/03/2018 8:59 AM) [...] on 07/03/2018 9:08 AM. Performing Organization Address [facility] Phone Number RAD RESULTS * POC GLUCOSE (07/03/2018 8:04 AM) Glucose, POC 156 (H) 70 - 100 MG/DL [facility] MAIN LAB Performing Organization Address [facility] Phone Number [facility] MAIN LAB [address] [place] [address] * ECG-SCAN (07/03/2018 7:35 AM) Narrative Performed At Ordered by an unspecified provider. * POC GLUCOSE (07/03/2018 5:03 AM) Glucose, POC 109 (H) 70 - 100 MG/DL [facility] MAIN LAB Performing Organization Address [facility] Phone Number [facility] MAIN LAB [address] [place] [address] * CBC (07/03/2018 4:11 AM) White Blood Cells 13.4 (H) 4.5 - 11.0 K/UL MAIN LAB RBC 2.57 (L) 4.4 - 5.5 M/UL MAIN LAB Hemoglobin 7.6 (L) 13.5 - 16.5 GM/DL [facility] MAIN LAB Hematocrit 22.7 (L) 40 - 50 % [facility] MAIN LAB MCV 88.3 80 - 100 FL [facility] MAIN LAB MCH 29.5 26 - 34 PG MAIN LAB MCHC 33.4 32.0 - 36.0 G/DL MAIN LAB RDW 14.1 11 - 15 % [facility] MAIN [facility] Platelet Count 395 150 - 400 K/UL [facility] MAIN LAB MPV 8.7 7 - 11 FL [facility] MAIN LAB Specimen Blood Performing Organization Address [facility] Phone Number [facility] MAIN LAB [address] [place] [address] * BASIC METABOLIC PANEL (07/03/2018 4:11 AM) [...] Address City/State/Zipcode Phone Number MAIN LAB [address] [place] [address] * POC GLUCOSE (07/03/2018 3:57 AM) Glucose, POC 132 (H) 70 - 100 MG/DL [facility] Performing Organization Address City/[facility]/Zipcode Phone Number MAIN LAB [address] [place] [address] * POC GLUCOSE (07/03/2018 3:06 AM) Glucose, POC 145 (H) 70 - 100 MG/DL [facility] Performing Organization Address City/State/Zipcode Phone Number MAIN LAB [address] [place] [address] * POC GLUCOSE (07/03/2018 2:01 AM) Glucose, POC 154 (H) 70 - 100 MG/DL [facility] Performing Organization Address City/State/Zipcode Phone Number MAIN LAB [address] [place] [address] * POC GLUCOSE (07/03/2018 1:05 AM) Glucose, POC 112 (H) 70 - 100 MG/DL [facility] Performing Organization Address City/State/Zipcode Phone Number MAIN LAB [address] [place] [address] * POC GLUCOSE (07/03/2018 12:35 AM) Glucose, POC 98 70 - 100 MG/DL [facility] Performing Organization Address City/State/Zipcode Phone Number [facility] [address] [place] [address] * POC GLUCOSE (07/03/2018 12:13 AM) Glucose, POC 78 70 - 100 MG/DL [facility] Performing Organization Address City/State/Zipcode Phone Number MAIN LAB [address] [place] [address] * POC GLUCOSE (07/02/2018 11:03 PM) Glucose, POC 102 (H) 70 - 100 MG/DL [facility] Performing Organization Address City/State/Zipcode Phone Number MAIN LAB [address] [place] [address] * POC GLUCOSE (07/02/2018 9:56 PM) Glucose, POC 184 (H) 70 - 100 MG/DL [facility] Performing Organization Address City/State/Zipcode Phone Number MAIN LAB [address] [place] [address] * POC GLUCOSE (07/02/2018 9:36 PM) Glucose, POC 49 (LL) 70 - 100 MG/DL [facility] Performing Organization Address City/State/Zipcode Phone Number MAIN LAB [address] [place] [address] * POC GLUCOSE (07/02/2018 9:32 PM) Glucose, POC 50 (L) 70 - 100 MG/DL [facility] Performing Organization Address City/State/Zipcode Phone Number MAIN LAB [address] [place] [address] * POC GLUCOSE (07/02/2018 9:13 PM) Glucose, POC 59 (L) 70 - 100 MG/DL [facility] Performing Organization Address City/State/Zipcode Phone Number MAIN LAB [address] [place] [address] * POC GLUCOSE (07/02/2018 9:11 PM) Glucose, POC 58 (L) 70 - 100 MG/DL [facility] Performing Organization Address City/State/Zipcode Phone Number MAIN LAB [address] [place] [address] * POC GLUCOSE (07/02/2018 7:58 PM) Glucose, POC 121 (H) 70 - 100 MG/DL [facility] Performing Organization Address City/State/Zipcode Phone Number MAIN LAB [address] [place] [address] * POC GLUCOSE (07/02/2018 6:56 PM) Glucose, POC 162 (H) 70 - 100 MG/DL [facility] Performing Organization Address City/State/Zipcode Phone Number MAIN LAB [address] [place] [address] * POC GLUCOSE (07/02/2018 6:07 PM) Glucose, POC 180 (H) 70 - 100 MG/DL [facility] Performing Organization Address City/State/Zipcode Phone Number MAIN LAB [address] [place] [address] * POC GLUCOSE (07/02/2018 4:52 PM) Glucose, POC 195 (H) 70 - 100 MG/DL [facility] Performing Organization Address City/[facility] Phone Number [facility] [address] [place] [address] * POC GLUCOSE (07/02/2018 4:24 PM) Glucose, POC 204 (H) 70 - 100 MG/DL [facility] Performing Organization Address City/[facility]/Zipcode Phone Number MAIN LAB [address] [place] [address] * POC GLUCOSE (07/02/2018 3:09 PM) Glucose, POC 212 (H) 70 - 100 MG/DL [facility] Performing Organization Address City/State/Zipcode Phone Number MAIN LAB [address] [place] [address] * POC GLUCOSE (07/02/2018 2:13 PM) Glucose, POC 204 (H) 70 - 100 MG/DL [facility] Performing Organization Address City/State/Zipcode Phone Number MAIN LAB [address] [place] [address] * POC GLUCOSE (07/02/2018 12:59 PM) Glucose, POC 235 (H) 70 - 100 MG/DL [facility] Performing Organization Address [facility] Phone Number [facility] [address] [place] [address] * POC GLUCOSE (07/02/2018 12:02 PM) Glucose, POC 244 (H) 70 - 100 MG/DL [facility] Performing Organization Address [facility] Phone Number MAIN LAB [address] [place] [address] * POC GLUCOSE (07/02/2018 11:10 AM) Glucose, POC 229 (H) 70 - 100 MG/DL [facility] Performing Organization Address [facility] Phone Number MAIN LAB [address] [place] [address] * ABDOMEN AP ONLY (07/02/2018 10:20 AM) [...] on 07/02/2018 11:09 AM. Performing Organization Address City/[facility] Phone Number RAD RESULTS * POC GLUCOSE (07/02/2018 10:14 AM) Glucose, POC 212 (H) 70 - 100 MG/DL [facility] Performing Organization Address City/[facility] Phone Number [facility] LAB [address] [place] [address] * POC GLUCOSE (07/02/2018 9:22 AM) Glucose, POC 209 (H) 70 - 100 MG/DL MAIN LAB Performing Organization Address City/[facility] Phone Number [facility] LAB [address] [place] [address] * POC GLUCOSE (07/02/2018 8:04 AM) Glucose, POC 186 (H) 70 - 100 MG/DL [facility]IN [facility] Performing Organization Address City/[facility] Phone Number [facility] LAB [address] [place] [address] * POC GLUCOSE (07/02/2018 6:05 AM) Glucose, POC 142 (H) 70 - 100 MG/DL MAIN LAB Performing Organization Address [facility] Phone Number MAIN LAB [address] [place] [address] * POC GLUCOSE (07/02/2018 5:00 AM) Glucose, POC 125 (H) 70 - 100 MG/DL [facility]IN [facility] Performing Organization Address City/[facility] Phone Number [facility] LAB [address] [place] [address] * PHOSPHORUS (07/02/2018 4:15 AM) Phosphorus 2.6 2.0 - 4.0 MG/DL MAIN LAB Specimen Blood Performing Organization Address City/[facility] Phone Number [facility] LAB [address] [place] [address] * MAGNESIUM (07/02/2018 4:15 AM) Magnesium 1.9 1.6 - 2.6 mg/dL MAIN LAB Specimen Blood Performing Organization Address City/[facility]/Zipcode Phone Number MAIN LAB [address] [place] [address] * IONIZED CALCIUM (07/02/2018 4:15 AM) Ionized Calcium 1.14 1.0 - 1.3 MMOL/L MAIN LAB Specimen Blood Performing Organization Address City/[facility] Phone Number [facility] LAB [address] [place] [address] * CULTURE-BLOOD W/SENSITIVITY (07/02/2018 4:15 AM) Battery Name BLOOD CULTURE MAIN LAB Specimen Description BLOOD MAIN LAB RIGHT RADIAL ARTERIAL Special Requests NONE MAIN LAB Culture NO GROWTH 5 DAYS [facility] MAIN [facility] Report Status FINAL MAIN LAB 07/08/2018 Specimen Blood Performing Organization Address [facility]/Zipcode Phone Number MAIN LAB [address] [place] [address] * CBC (07/02/2018 4:15 AM) White Blood [...] MAIN LAB Specimen Blood Performing Organization Address [facility] Phone Number MAIN LAB [address] [place] [address] * BASIC METABOLIC PANEL (07/02/2018 4:15 AM) [...] City/State/Zipcode Phone Number [facility] [address] [place] [address] * POC GLUCOSE (07/02/2018 4:00 AM) Glucose, POC 129 (H) 70 - 100 MG/DL [facility]IN [facility] Performing Organization Address City/[facility]/Zipcode Phone Number [facility]IN [facility] [address] [place] [address] * POC GLUCOSE (07/02/2018 3:06 AM) Glucose, POC 116 (H) 70 - 100 MG/DL [facility]IN [facility] Performing Organization Address City/[facility]/Zipcode Phone Number [facility]IN [facility] [address] [place] [address] * POC GLUCOSE (07/02/2018 2:02 AM) Glucose, POC 113 (H) 70 - 100 MG/DL [facility]IN [facility] Performing Organization Address City/[facility]/Zipcode Phone Number [facility]IN [facility] [address] [place] [address] * POC GLUCOSE (07/02/2018 1:12 AM) Glucose, POC 147 (H) 70 - 100 MG/DL [facility]IN [facility] Performing Organization Address City/[facility]/Zipcode Phone Number [facility]IN [facility] [address] [place] [address] * POC GLUCOSE (07/02/2018 12:05 AM) Glucose, POC 155 (H) 70 - 100 MG/DL [facility]IN [facility] Performing Organization Address City/[facility]/Zipcode Phone Number [facility]IN [facility] [address] [place] [address] * POC GLUCOSE (07/01/2018 11:03 PM) Glucose, POC 128 (H) 70 - 100 MG/DL [facility]IN [facility] Performing Organization Address City/[facility] Phone Number [facility] LAB [address] [place] [address] * POC GLUCOSE (07/01/2018 10:07 PM) Glucose, POC 208 (H) 70 - 100 MG/DL [facility]IN [facility] Performing Organization Address City/[facility] Phone Number [facility] LAB [address] [place] [address] * POC GLUCOSE (07/01/2018 9:18 PM) Glucose, POC 184 (H) 70 - 100 MG/DL MAIN LAB Performing Organization Address [facility] Phone Number MAIN LAB [address] [place] [address] * MRI HEAD WO CONTRAST (07/01/2018 9:10 [...] the posterior medial left temporal lobe. 3. Gnosticist of flow void within the right M1 [...] changes. Major vascular flow voids of the clark's point of Tse and dural venous sinuses are preserved. There is jainism of flow void in the right M1 [...] changes. Major vascular flow voids of the clark's point of Tse and dural venous sinuses are preserved. There is jainism of flow void in the right M1 [...] the posterior medial left temporal lobe. 3. Gnosticist of flow void within the right M1 segment, previously noted to be occluded. Performing Organization Address City/[facility]/[employer] Phone Number [facility] RAD RESULTS * POC GLUCOSE (07/01/2018 8:07 PM) Glucose, POC 184 (H) 70 - 100 MG/DL MAIN LAB Performing Organization Address City/State/[employer] Phone Number MAIN LAB [address] [place] [address] * POC GLUCOSE (07/01/2018 6:59 PM) Glucose, POC 190 (H) 70 - 100 MG/DL [facility] MAIN [facility] Performing Organization Address [facility] Phone Number [facility] [address] [place] [address] * POC GLUCOSE (07/01/2018 6:03 PM) Glucose, POC 169 (H) 70 - 100 MG/DL [facility]IN [facility] Performing Organization Address [facility] Phone Number MAIN LAB [address] [place] [address] * POC GLUCOSE (07/01/2018 5:10 PM) Glucose, POC 154 (H) 70 - 100 MG/DL [facility]IN [facility] Performing Organization Address [facility] Phone Number MAIN LAB [address] [place] [address] * POC GLUCOSE (07/01/2018 4:04 PM) Glucose, POC 195 (H) 70 - 100 MG/DL [facility]IN [facility] Performing Organization Address [facility] Phone Number MAIN LAB [address] [place] [address] * BLOOD GASES, ARTERIAL (07/01/2018 3:06 PM) pH-Arterial 7.34 (L) 7.35 - 7.45 MAIN LAB pCO2-Arterial 39 35 - 45 MMHG [facility] MAIN LAB pO2-Arterial 102 (H) 80 - 100 MMHG [facility] MAIN LAB Base Deficit-Arterial 4.6 MMOL/L MAIN LAB O2 Sat-Arterial 97.5 95 - 99 % MAIN LAB Skmnwkkhhje-LXS-Pjz 20.6 (L) 21 - 28 MMOL/L MAIN LAB Specimen Blood, arterial - Blood Performing Organization Address [facility] Phone Number MAIN LAB [address] [place] [address] * POC GLUCOSE (07/01/2018 3:05 PM) Glucose, POC 195 (H) 70 - 100 MG/DL [facility]IN [facility] Performing Organization Address [facility] Phone Number MAIN LAB [address] [place] [address] * CT HEAD WO CONTRAST (07/01/2018 2:46 [...] 72.37 % OTHER OUTSIDE LAB AV index ([place]) 0.56 OTHER OUTSIDE LAB E/A ratio 1.35 OTHER OUTSIDE LAB E/E' ratio 10.67 OTHER OUTSIDE LAB CV ECHO PV RETAIL LINK ANALYST Yasir RN OTHER OUTSIDE LAB LV mass 118.49 96 - 200 g OTHER OUTSIDE LAB RWT 0.36 <=0.42 OTHER OUTSIDE LAB TV rest pulmonary artery 22 mmHg OTHER OUTSIDE LAB pressure Right Heart Systolic TDI 0.110 m/s OTHER OUTSIDE LAB S' Cardiology Ultrasound Siemens [id number] OTHER OUTSIDE LAB Machine ECHO EF 60 [...] study available for comparison Performing Organization Address City/[facility]/Zipcode Phone Number OTHER OUTSIDE LAB * CULTURE-BLOOD W/SENSITIVITY (07/01/2018 1:04 PM) Battery Name BLOOD CULTURE [facility] MAIN [facility] Specimen Description BLOOD MAIN LAB LEFT ANTECUBITAL Special Requests NONE [facility] MAIN LAB Culture NO GROWTH 5 DAYS [facility] MAIN LAB Report Status FINAL [facility] MAIN LAB 07/07/2018 Specimen Blood Performing Organization Address City/[facility] Phone Number [facility] [address] [place] [address] * POC GLUCOSE (07/01/2018 1:02 PM) Glucose, POC 169 (H) 70 - 100 MG/DL [facility] MAIN [facility] Performing Organization Address [facility] Phone Number [facility] [address] [place] [address] * UA REFLEX CULTURE LABEL (07/01/2018 12:53 PM) UA Reflex Culture LAB LABEL [facility] MAIN LAB Specimen Urine Performing Organization Address City/[facility] Phone Number [facility] LAB [address] [place] [address] * URINALYSIS MICROSCOPIC REFLEX TO CULTURE (07/01/2018 [...] MAIN LAB Specimen Urine Performing Organization Address [facility] Phone Number MAIN LAB [address] [place] [address] * URINALYSIS DIPSTICK REFLEX TO CULTURE (07/01/2018 12:53 PM) Color,UA STRAW [facility] MAIN [facility] Turbidity,UA CLEAR CLEAR-CLEAR [facility] MAIN [facility] Specific [place]-Urine 1.018 1.003 - 1.035 [facility] MAIN LAB [...] MAIN LAB Specimen Urine Performing Organization Address [facility] Phone Number MAIN LAB [address] [place] [address] * LACTIC ACID(LACTATE) (07/01/2018 12:50 PM) Lactic Acid 1.5 0.5 - 2.0 MMOL/L MAIN LAB Performing Organization Address [facility] Phone Number MAIN LAB [address] [place] [address] * BETA HYDROXYBUTYRATE (KETONES) (07/01/2018 12:50 PM) Beta Hydroxybutyrate 0.1 <0.3 MMOL/L [facility] MAIN LAB Comment: Beta hydroxybutyrate (BOHB) is the most abundant ketone (78%), followed by acetoacetate (20%) and acetone (2%).Measurement BOHB is recommended to assess ketones in DKA. Expected BOHB Results for DKA: Initial presentation high/increasing During treatment decreasing Resolved decreasing/normal Performing Organization Address [facility] Phone Number MAIN LAB [address] [place] [address] * LACTIC ACID (BG - RAPID LACTATE) (07/01/2018 12:50 PM) Lactic Acid,BG 1.5 0.5 - 2.0 MMOL/L MAIN LAB Specimen Blood Performing Organization Address City/[facility]/Zipcode Phone Number [facility] MAIN [facility] [address] [place] [address] * CBC AND DIFF (07/01/2018 12:50 PM) [...] MAIN LAB Specimen Blood Performing Organization Address City/[facility]/Zipcode Phone Number [facility] MAIN [facility] [address] [place] [address] * IONIZED CALCIUM (07/01/2018 12:50 PM) Ionized Calcium 1.14 1.0 - 1.3 MMOL/L MAIN LAB Specimen Blood Performing Organization Address City/[facility]/Zipcode Phone Number [facility] MAIN [facility] [address] [place] [address] * PHOSPHORUS (07/01/2018 12:50 PM) Phosphorus 2.6 2.0 - 4.0 MG/DL [facility] MAIN LAB Specimen Blood Performing Organization Address [facility] Phone Number [facility]IN [facility] [address] [place] [address] * MAGNESIUM (07/01/2018 12:50 PM) Magnesium 2.0 1.6 - 2.6 mg/dL [facility] MAIN LAB Specimen Blood Performing Organization Address [facility] Phone Number [facility]IN [facility] [address] [place] [address] * LIPID PROFILE (07/01/2018 12:50 PM) Cholesterol [...] 130 mg/dL. Specimen Blood Performing Organization Address [facility] Phone Number [facility] [address] [place] [address] * COMPREHENSIVE METABOLIC PANEL (07/01/2018 12:50 PM) [...] Address City/State/Zipcode Phone Number MAIN LAB [address] [place] [address] * HEMOGLOBIN A1C (07/01/2018 12:50 PM) Hemoglobin A1C 17.4 (H) 4.0 - 6.0 % MAIN LAB Comment: The ADA recommends that most patients with type 1 and type 2 diabetes maintain an A1c level <7%. Specimen Blood Performing Organization Address City/[facility] Phone Number [facility] LAB [address] [place] [address] * IR ARTERIOGRAM NEURO (07/01/2018 12:29 PM) [...] Fentanyl 25 mcg Contrast - 100 cc [id number] Total mGy - 421 Anesthesia:conscious sedation Consent [...] the sheath was advanced over a 5 [place] 125 cm Vert catheter over a 180 cm 0.035 [place] wire over the aortic arch and into [...] therefore, hemostasis was achieved using an 8 [place] Angioseal closure device followed by manual pressure [...] Fentanyl 25 mcg Contrast - 100 cc [id number] Total mGy - 421 Anesthesia: conscious sedation [...] the sheath was advanced over a 5 [place] Helen[place] 125 cm Vert catheter over a 180 cm 0.035 [place] wire over the aortic arch and into [...] therefore, hemostasis was achieved using an 8 [place] Angioseal closure device followed by manual pressure [...] teamat 11:51 AM on 07/01/2018 by the limited radiology technician in consultation with TALIA BOSTON M.D.. Approved [...] at 11:51 AM on 07/01 by the limited radiology technician in consultation with TALIA BOSTON M.D.. Approved by Miesha Maldonado M.D. on 07/01/2018 12:14 PM By my electronic signature, I attest that I have personally reviewed the images for this examination and formulated the interpretations and opinions expressed in this report Finalized by TALIA BSOTON M.D. on 07/01/2018 12:15 PM. Dictated by [...] teamat 11:51 AM on 07/01/2018 by the limited radiology technician in consultation with TALIA BOSTON M.D.. Approved [...] at 11:51 AM on 07/01 by the limited radiology technician in consultation with TALIA BOSTON M.D.. Approved [...] teamat 11:51 AM on 07/01/2018 by the limited radiology technician in consultation with TALIA BOSTON M.D.. Approved [...] right middle cerebral artery. 2. Loss of alra-white differentiation in the right lateral temporal lobe, [...] at 11:51 AM on 07/01 by the limited radiology technician in consultation with TALIA BOSTON M.D.. Approved [...] 0649, Until Padma 07/09/18 at 1756, Constipation [place], Hold for loose stools cefTRIAXone (ROCEPHIN) IVP [...] HOURS PRN, Starting Fri07/01/18 at 2336, Until Pdama 07/09/18 at 1151, Systolic Blood Pressure..., >140 [...] recheck BG every 1 hr; when > tn=122 mg/dL, restart insulin infusion at 50% of most recent rate 2. If BG 50-74 mg/dL: a. HOLD INSULIN INFUSION and administer amp (12.5 g) D50 IV; recheck BG every 15 minutes until > or=90 mg/dL. b. Then, recheck BG every 1 hr; when > fm=736 mg/dL, restart insulin infusion at 50% of most recent rate. 3. If BG 75-99 mg/dL: a. HOLD INSULIN INFUSION. Recheck BG every 15 minutes until BG reaches or remains > or=90 mg/dL. b. Then, recheck BG every 1 hr; when > zs=522 mg/dL, restart insulin infusion at 75% of [...] at 4PM is 120 mg/dL, the total pattern changer and repairer 2 hours is -30 mg/dL; however, the hourly change is -30 mg/dL 2 hours=-15 mg/dL/hr. BG 100-119 mg/dl BG 120-159 mg/dL BG 160-199 mg/dL BG > os=986 INSTRUCTIONS++ BG increased by BG increased Increase [...] CDT 30 mEq, Oral, ONCE, 1 dose, [facility] 07/09/18 at 0730, Do NOT break [...]
--- OUTSIDE RECORDS SUMMARY | 2018-08-23 12:09 | XMS REPORT | Encounter Summary ---
Author Author [facility] Organization [facility] Address Unknown Phone Unavailable Care Team Providers Care Dobie Man Name Role Phone Damien Caceres MD Unavailable Melo Adame MD Unavailable Unavailable Lulu Ozuna NP PCP Hilary Davenport RN Unavailable Unavailable Reason for Visit * Auth/Cert Status Reason Specialty Diagnoses / Referred By Referred To Procedures Contact Contact Diagnoses Stroke (HCC) Stroke Encounter Details Date Type Department Care Team Description 07/08/2018 Surgery Gastrointenstinal Clara Carolina MD ESOPHAGOGASTRODUODENOSCOP Endoscopy [address] [place] [address] [place] [address] [phone] Social History Tobacco Use Types Packs/Day Years [...] s/p suprapubic catheter that was admitted at [facility] for urosepsis, DKA, A fib with RVR requiring cardizem ggt that was transferred for concerns for stroke. Admitted on 06/28 to [facility] with week history of cough, SOB. Found to have UTI with urosepsis and DKA with CO2 of 8, BG in 600s. Admitted to the ICU at [facility]. Started on CTX and Insulin ggt. [...] language) 2=neither correct 2 1c. 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, channel marketing specialist and release non-paretic hand (other 1 step [...] tPA given unclear window. Was transferred to [facility] for evaluation. Was given ativan 2mg [...] stroke on 07/15. ECHO showed no thrombus. SEQUINS WINDER was following and pt graduated to regular [...] hospital course Consults: Cardiology, Endocrinology, GI and PT/OT/SEQUINS WINDER, rehab, urology Patient Disposition: Custodial Facility Patient instructions/medications: AMB REFERRAL TO GASTROENTEROLOGY [...] home, please feel free to contact the Pediatric Physical Therapist at [phone]. Your last blood pressure was BP: 171/73, [...] Report These Signs and Symptoms STROKE Call [phone] for the following symptoms: *Sudden numbness or weakness of the face, arm or leg, especially on one side of the body. *Sudden confusion, trouble speaking or understanding. *Sudden trouble seeing in one or both eyes. *Sudden trouble walking, dizziness, loss of balance or coordination. *Sudden, severe headache with no known cause. Return Appointment For Neurology scheduling contact [phone] For Neurosurgery appointments call [phone] Questions About Your Stay STANDARD For questions or concerns regarding your hospital stay: -DURING BUSINESS HOURS (8:00 AM - 4:30 PM): Call [phone] and ask to be transferred to your discharge attending physician. -AFTER BUSINESS HOURS (4:30 PM - 8:00 AM, on weekends, or holidays): Call [phone] and ask the fondant machine operator to page the on-call doctor for the discharge attending physician. Discharging attending physician: KEYSHAWN GOMEZ [[id number]] Complete if patient is going to a Custodial Facility I certify that the patient requires skilled care Yes The patient's stay is expected to be less than 30 days Yes I will be in charge of patient in fci No Cardiac Diet Limiting unhealthy fats and [...] home, you can call a dietitian at [phone]. Modified Liquids Your fluids should be thickened to a consistency of nectar. This is as thick as a milkshake or tomato juice. If you have questions about your diet after you go home, you can call a dietitian at [phone]. Current Discharge Medication List START taking these [...] CDT Return Patient with Lulu Perry MD [facility] ([facility]) [facility] [address] [facility] [id number] Additional appointment instructions: Please follow up with your PCP for repeat labs, monitoring your blood pressure, and monitoring your blood glucose Please follow up with the beam department supervisor at [facility] for follow up visit. Please follow [...] blood glucose Please follow up with the beam department supervisor at [facility] for follow up visit. Please follow [...] - 07/09/2018 2:57 PM CDT Phoned [facility] [phone] and gave report to Perla GOODMAN to receive patient. Informed her that patient to transport at 13:00. By 15:00 no transport arrived, phoned facility above and it was reported that ride was on the way. FSBS=69 checked prior to transport. Reported to intelligence applications for Neurology, juice x 2 given FSBS rechecked=87. Patient left unit via wheelchair and otr flatbed driver who was given chart for transport. [...] Range Color,UA STRAW Turbidity,UA CLEAR CLEAR-CLEAR Specific [place]-Urine 1.005 1.003 - 1.035 pH,UA 8.0 5.0 [...] DKA resolved -A1c 17.4 on 07/01/2018 uncontrolled -JAVA J2EE TECHNICAL LEAD regimen: levemir 40 units QHS, Novolog 20-25 [...] will follow up with local endocrinology in [facility] Subjective Valdez Anthony is a 57 [...] Range Color,UA STRAW Turbidity,UA CLEAR CLEAR-CLEAR Specific [place]-Urine 1.005 1.003 - 1.035 pH,UA 8.0 5.0 [...] Intake: Improving, Marginally Adequate Estimated Calorie Needs: 1477-8203 (25-28 kcal/kg desired wt) Estimated Protein Needs: 85-100 (1.2-1.4 g/kg desired wt) Oral Diet Order: Diabetic 3614-0340 Kcal/day (60 g Carb/meal, 30 g Carb/HS snack ), [place] Thick Liquids Comments: 57 y.o. male with new onset Atrial Fibrillation with RVR, HTN, HLD, T2DM, Diabetic Retinopathy, OD Blindness, Neovascular Glaucoma, Prostate Cancer s/p prostatectomy, Urinary Retention s/p suprapubic catheter that was admitted at [facility] for urosepsis, DKA, A fib [...] and underwent via video- swallow eval with SEQUINS WINDER findings of moderate oropharyngeal dysphagia and baseline cognitive deficits. SEQUINS WINDER working with pt and diet has advanced from nectar thick full liquids to 60g/meal consistent carb diet with nectar thick fluids. Per had 100% omelet for breakfast today (refused per RN) and sandwich ordered by for lunch. No current wt to assess; unable to actually see pt today as he was bundled in his blankets. Pt has orders for no sugar added [place] breakfast with nectar thick milk at breakfast and per RN throughout day as needed. Followed up with call center who says orders not printing to meal ticket. denies need for diet education Recommendation: Encourage good meal intakes at least 3 times per day with adequate protein source each meal on 60g/meal consistne carb diet. Offer no sugar added [place] Breakfast shakes made with nectar thick milk at breakfast and PRN. Intervention / Plan: Monitor po intake tolerance and adequacy monitor wt trends, labs, meds and GI status Nutrition Diagnosis: Altered GI function Etiology: swallowing and cognitive deficits Signs & Symptoms: SEQUINS WINDER findings and nectar thick liquids with diabetic [...] prostate cancer s/p prostatectomy who presents to [facility] as a transfer from [facility] [...] tPA given unclear window. Was transferred to [facility] for evaluation. Was given ativan 2mg [...] EF, LA size 3.5cm, no thrombus - SEQUINS WINDER following -> recommend regular diet w/ nectar [...] TIDAC >pt to f/u w/ endo @ [facility] outpt basis -> goal BS 100-140 [...] -> develop stroke and was transferred to [facility] - Was placed on PO cardizem [...] 07/01 - 07/05 Dispo: discharge today to [facility] @ 1300 Patient was seen and [...] Range Color,UA STRAW Turbidity,UA CLEAR CLEAR-CLEAR Specific [place]-Urine 1.005 1.003 - 1.035 pH,UA 8.0 5.0 [...] (Last 24 hours): FSBS (Manual): 96 (07/08/18 9789) Glucose: (!) 118 (07/09/18 0547) POC Glucose [...] prostate cancer s/p prostatectomy who presents to [facility] as a transfer from [facility] for stroke. OSH course: Pt presented [...] tPA given unclear window. Was transferred to [facility] for evaluation. Was given ativan 2mg [...] EF, LA size 3.5cm, no thrombus - SEQUINS WINDER following -> recommend regular diet w/ nectar [...] TIDAC >pt to f/u w/ endo @ [facility] outpt basis -> goal BS 100-140 [...] -> develop stroke and was transferred to [facility] - Was placed on PO cardizem [...] fluids, replace lytes PRN, ada diet Ppx: [id number] Heparin Sq Q8, SCDs Code: Full Dispo: [...] pathology results. Roberto Dutta GI fellow Pager [phone] 07/08/2018 3:39 PM * Eloy Higgins RN [...] or concerns after your procedure please call [phone] M-F 8am-5:00 pm. After 5:00 pm, holidays or weekends call [phone] and ask for the GI Doctor intelligence applications. * Barbi Deluna MD - 07/08/2018 12:10 [...] DKA resolved -A1c 17.4 on 07/01/2018 uncontrolled -JAVA J2EE TECHNICAL LEAD regimen: levemir 40 units QHS, Novolog 20-25 [...] will follow up with local endocrinology in [facility] Subjective Valdez Anthony is a 57 [...] s/p suprapubic catheter that was admitted at [facility] for urosepsis, DKA, A fib [...] PROGRESS NOTE Patient Name: Valdez Anthony Room/Bed: JF4483/01 Admitting Diagnosis: Stroke Past Medical History: Diagnosis [...] occasionally in community. Prior Function Level Of Peck: Independent with ADLs and functional transfers Lives [...] Bed mobility, Ambulation, Stairs Therapist: ERIC Whalen/Cesia [id number] Date: 07/08/2018 * Whit Guadarrama MS,CCC-SEQUINS WINDER - 07/08/2018 9:38 AM CDT SPEECH-LANGUAGE PATHOLOGY NO TREATMENT NOTE Chart reviewed and discussed in interdisciplinary rounds. Pt NPO for colonoscopy this date. SEQUINS WINDER will continue to follow. Therapist: Whit Guadarrama MS,CCC-SEQUINS WINDER [id number] Date: 07/08/2018 * Barbi Deluna MD - [...] DKA resolved -A1c 17.4 on 07/01/2018 uncontrolled -JAVA J2EE TECHNICAL LEAD regimen: levemir 40 units QHS, Novolog 20-25 [...] will follow up with local endocrinology in [facility] Subjective Valdez Anthony is a 57 [...] prostate cancer s/p prostatectomy who presents to [facility] as a transfer from [facility] for stroke. OSH course: Pt presented [...] tPA given unclear window. Was transferred to [facility] for evaluation. Was given ativan 2mg [...] EF, LA size 3.5cm, no thrombus - SEQUINS WINDER following -> recommend regular diet w/ nectar [...] > pt to f/u w/ endo @ [facility] outpt basis -> goal BS 100-140 [...] -> develop stroke and was transferred to [facility] - Was placed on PO cardizem [...] clear liquid/ada diet for procedure tomorrow Ppx: [id number] Heparin Sq Q8, SCDs Code: Full Dispo: [...] provide intervention as indicated. Irma Blakely, OTR/L [id number] * Whit Guadarrama MS,CCC-SEQUINS WINDER - 07/07/2018 9:50 AM CDT SPEECH-LANGUAGE PATHOLOGY NO TREATMENT NOTE Chart reviewed and discussed in interdisciplinary rounds. Pt NPO for colonoscopy this date. SEQUINS WINDER will continue to follow. Therapist: Whit Guadarrama MS,CCC-SEQUINS WINDER [id number] Date: 07/07/2018 * Shira Welch RN - [...] DKA resolved -A1c 17.4 on 07/01/2018 uncontrolled -JAVA J2EE TECHNICAL LEAD regimen: levemir 40 units QHS, Novolog 20-25 [...] will follow up with local endocrinology in [facility] Subjective Valdez Anthony is a 57 [...] Color,UA YELLOW Turbidity,UA 2+ (A) CLEAR-CLEAR Specific [place]-Urine 1.017 1.003 - 1.035 pH,UA 5.0 5.0 [...] prostate cancer s/p prostatectomy who presents to [facility] as a transfer from [facility] for stroke. OSH course: Pt presented [...] tPA given unclear window. Was transferred to [facility] for evaluation. Was given ativan 2mg [...] EF, LA size 3.5cm, no thrombus - SEQUINS WINDER following -> recommend regular diet w/ nectar [...] > pt to f/u w/ endo @ [facility] outpt basis -> goal BS 100-140 [...] fluids, replace lytes PRN, ADA diet Ppx: [id number] Heparin Sq Q8, SCDs Code: Full Dispo: [...] asked these questions and provided answers by SEQUINS WINDER) Speech: slurred speech w/ comprehension intact to [...] Color,UA YELLOW Turbidity,UA 2+ (A) CLEAR-CLEAR Specific [place]-Urine 1.017 1.003 - 1.035 pH,UA 5.0 5.0 [...] 0427) POC Glucose (Download): (!) 196 (07/06/18 7056) Radiology and Other Diagnostics Review: Pertinent radiology [...] due to out of window), transferred to [facility] and found to have R M1 [...] established Keyshawn Gomez MD * Whit Guadarrama MS,CCC-SEQUINS WINDER - 07/06/2018 12:14 PM CDT Formatting of [...] address dysphagia and cognitive communication concerns. Ongoing SEQUINS WINDER at next level of care. Consistent supervision [...] baseline to call for assistance if needed. [place] Cognitive Assessment (MoCA), Version 7.1 Subtest / [...] s/p suprapubic catheter that was admitted at [facility] for urosepsis, DKA, A fib [...] the posterior medial left temporal lobe. 3. Presybeterian of flow void within the right M1 [...] spoon/cup and pureed /mech soft solids w/ SEQUINS WINDER only w/ less than 5% s/s of [...] from respiratory status changes. Therapist: Whit Guadarrama MS,CCC-SEQUINS WINDER [id number] Date: 07/06/2018 * Aria Mccoy, PT - [...] s/p suprapubic catheter that was admitted at [facility] for urosepsis, DKA, A fib [...] spoon/cup and pureed /mech soft solids w/ SEQUINS WINDER only w/ less than 5% s/s of [...] speech therapy post acute hospitalization. Therapist: Cesia Hatfield/CCC-SEQUINS WINDER (Pager [phone]; Voalte: [phone]) Date: 07/05/2018 * Darcy Goodrich MD - [...] s/p suprapubic catheter that was admitted at [facility] for urosepsis, DKA, A fib [...] EF, LA size 3.5cm, no thrombus - SEQUINS WINDER to eval and treat - Video swallow [...] - Rocephin 07/01 - 07/05 FEN: - [place] thick PO fluids - Daily BMP - [...] 0525) POC Glucose (Download): (!) 139 (07/05/18 0629) Radiology and other Diagnostics Review: Pertinent radiology reviewed. Darcy Goodrich MD Neurology PGY-4 Pager Neurology intelligence applications pager [phone] Associated attestation - Diego Gutierrez MD - [...] DKA resolved -A1c 17.4 on 07/01/2018 uncontrolled -JAVA J2EE TECHNICAL LEAD regimen: levemir 40 units QHS, Novolog 20-25 [...] will follow up with local endocrinology in [facility] This is an individual we are [...] s/p suprapubic catheter that was admitted at [facility] for urosepsis, DKA, A fib [...] EF, LA size 3.5cm, no thrombus - SEQUINS WINDER to eval and treat - Video swallow [...] - Rocephin 07/01 - 07/05 FEN: - [place] thick PO fluids - Daily BMP - [...] 20,000 Units/ sodium bicarbonate 650 mg(#) PRN (Retail Customer Service Specialist from [employer]) Vital Signs: Last Filed in [...] the posterior medial left temporal lobe. 3. Presybeterian of flow void within the right M1 segment, previously noted to be occluded. Munira Ortega DO Pager [phone] Associated attestation - Diego Gutierrez MD - [...] while, received endoscopy and colonoscopy at the [facility] without a clear etiology of his anemia, also received another endoscopy at the [facility] OSH again without a clear upper GI [...] DKA resolved -A1c 17.4 on 07/01/2018 uncontrolled -JAVA J2EE TECHNICAL LEAD regimen: levemir 40 units QHS, Novolog 20-25 [...] will follow up with local endocrinology in [facility] Anemia This patient is having ongoing [...] mL IV drip (std conc) Stopped (07/04/18 2749) PRN and Respiratory Meds:acetaminophen Q6H PRN, bisacodyl QDAY PRN, hydrALAZINE Q6H PRN, labetalol (NORMODYNE; TRANDATE) injection Q6H PRN, pancrelipase 20,000 Units/ sodium bicarbonate 650 mg(#) PRN (Retail Customer Service Specialist from [employer]) Objective Vital Signs: Last Filed [...] Screen NEG Electronic Crossmatch YES Unit Number [id number] Blood Component Type RBC,CPDA,LEUKO REDUCED Unit Division [...] suprapubic catheter that was admitted at [facility] for urosepsis, DKA, A fib [...] EF, LA size 3.5cm, no thrombus - SEQUINS WINDER to eval and treat - Video swallow [...] - UA negative for UTI FEN: - [place] thick PO fluids - Daily BMP - [...] 20,000 Units/ sodium bicarbonate 650 mg(#) PRN (Retail Customer Service Specialist from [employer]) Vital Signs: Last Filed in [...] the posterior medial left temporal lobe. 3. Presybeterian of flow void within the right M1 [...] s/p suprapubic catheter that was admitted at [facility] for urosepsis, DKA, A fib [...] lift to chair for weekend, with staff development manager. Dicussed mobility recommendation with bedside RN. RECOMMENDATIONS: PT Discharge Recommendations PT Discharge Recommendations: Inpatient Setting Therapist: Dolores Sampson, PT Date: 07/03/2018 * Mary Grace Stanton OT - 07/03/2018 1:33 PM CDT Formatting of this note may be different from the original. OCCUPATIONAL THERAPY PROGRESS NOTE Patient Name: Valdez Anthony Room/Bed: [place] [address] Admitting Diagnosis: Stroke Past Medical History: Diagnosis [...] non verbal with left hemiplegia. Transferred to [facility]. R MCA stroke s/p thrombectomy, stent [...] occasionally in community. Prior Function Level Of Peck: Independent with ADLs and functional transfers Lives [...] s/p suprapubic catheter that was admitted at [facility] for urosepsis, DKA, A fib [...] Fed Thin Liquid: 1 oz, Cup, Straw [place] Thick Liquid: Cup, Straw Honey Thick Liquid: [...] spoon/cup and pureed /mech soft solids w/ SEQUINS WINDER only w/ less than 5% s/s of aspiration. Goal : Pt will participate in cognitive-communication assessment given mod cues. Therapist: BIANCA Lamb L/CCC-SEQUINS WINDER Voalte: [phone] Date: 07/03/2018 * Alex Medel, RN - [...] PM CDT Patient arrived to room # (3340) via bed accompanied by RN. Patient transferred [...] ASSESSMENT NOTE Patient Name: Valdez Anthony Room/Bed: EL2601/01 Admitting Diagnosis: Stroke Past Medical History: Diagnosis [...] non verbal with left hemiplegia. Transferred to [facility]. R MCA stroke s/p thrombectomy, stent [...] occasionally in community. Prior Function Level Of Peck: Independent with ADLs and functional transfers Lives [...] s/p suprapubic catheter that was admitted at [facility] for urosepsis, DKA, A fib [...] s/p suprapubic catheter that was admitted at [facility] for urosepsis, DKA , A [...] from the ICU. Updated plan: - NPO, SEQUINS WINDER to monitor swallow - Protein shake supplements [...] is restart AC in 10 days, needs SEQUINS WINDER re-eval for get cleared otherwise PEG, Glu [...] reports that pt completed videoswallow evaluation at [facility], which she states yielded recommendations for [...] Continue Treatment 3-5x/week. Prognosis: Fair NOMS Dysphagia Ratin9-Truzpjpusz-Upqryy Dysphagia -Not able to swallow safely by mouth for nutrition/hydration but may take some consistency w/ consistent max cues in therapy only. Alternative method of feeding required. Results Reported to Physician: Yes Objective* Relevant Med Background: 57 y.o. male with A-Fib (on Coumadin JAVA J2EE TECHNICAL LEAD), IDDM, Prostate CA, OD blindness, HLD and [...] the posterior medial left temporal lobe. 3. Presybeterian of flow void within the right M1 [...] videoswallow evaluation given mild-mod cues. Therapist:BIANCA Lamb L/CCC-SEQUINS WINDER Voalte: [phone] Date:07/02/2018 * Ciarra Valentino, - 07/02/2018 6:57 [...] s/p suprapubic catheter that was admitted at [facility] for urosepsis, DKA , A [...] involving the medial L temporal lobe. 3. Presybeterian of flow void in the R M1. - Stroke Risk Factor Modification -LDL 44. Goal <70. Continue blacktop spreader atorvastatin 40mg -A1c 17.4. Goal <7.0 -Continue ASA. Will discuss timing of AC given Afib. -Goal BP <140 - PT/OT, Speech Consult - Consult to Rehab - Neuro-ICU monitoring, neurochecks q 1 hrs Encephalopathy -s/p Flumazenil 0.5mg x 2 -07/01 ABG 7.34/39/102/20.6 -07/01 EEG: Diffuse slowing indicative of encephalopathy. No seizures or epileptiform activity. -No sedation needs -Holding blacktop spreader Bupropion, Duloxetine Sedation/Pain Management: -s/p ativan 2mg and fentanyl 25mcg -s/p flumazenil 0.5 mg x 3 -No sedation needs at this time Cardiac: Afib with RVR -[id number]: 4: 4.8% Risk for stroke and 6.7% [...] - Hydralazine prn SBP >140 - Continue blacktop spreader Lisinopril 20mg HLD - LDL 44. Goal LDL <70. Continue blacktop spreader atorvastatin 20mg Respiratory: Hypoxia likely 2/2 to [...] - Blood glucose goal 100-180mg/dl - Holding blacktop spreader Levemir 16 units and Novolog 5 units [...] (Last 24 hours) Glucose: (!) 127 (07/02/18 0417) POC Glucose (Download): (!) 142 (07/02/18 06) [...] Range Color,UA STRAW Turbidity,UA CLEAR CLEAR-CLEAR Specific [place]-Urine 1.018 1.003 - 1.035 pH,UA 5.0 5.0 [...] O2 Sat-Arterial 97.5 95 - 99 % [id number]-QGW-Gbc 20.6 (L) 21 - 28 MMOL/L POC [...] diagnostic procedures reviewed. Ciarra Valentino, Date: 07/02/[phone] Associated attestation - Veronica Doyle MD - [...] outpatient follow up Jerry Baker MD Urology intelligence applications Please page intelligence applications with concerns * Jaycob Ramos, - 07/01/2018 [...] Doyle MD Date: 07/01/2018 * Whit Guadarrama MS,CCC-SEQUINS WINDER - 07/01/2018 1:36 PM CDT SPEECH-LANGUAGE PATHOLOGY NO TREATMENT NOTE Order received and appreciated for clinical swallow evaluation. Chart reviewed and made contact with RN. Pt currently with another provider and with decreased level of arousal/responsiveness following ativan administration in the helicopter. SEQUINS WINDER will hold at this time per discussion with RN. SEQUINS WINDER will follow up and will complete evaluation when pt medically appropriate. Addendum 15:20: pt remains somnolent and unable to sustain adequate level of arousal to participate in clinical swallow evaluation per discussion with RN. SEQUINS WINDER will return to complete evaluation when appropriate. Chart review: Mr. Anthony presented to [facility] on 06/29 with uro-sepsis and DKA. [...] suggesting smaller completed infarct. Therapist: Whit Guadarrama MS,CCC-SEQUINS WINDER [id number] Date: 07/01/2018 * Mari Mullen, MAXINE - [...] chart reviewed History of Present Illness: Valdez Anthoyn is a 57 y.o. male as above [...] s/p suprapubic catheter that was admitted at [facility] for urosepsis, DKA, A fib [...] Factor Modification -Lipid Panel and A1c. Continue blacktop spreader atorvastatin 40mg -TTE -Start ASA. -Goal BP <140 - PT/OT, Speech Consult - Consult to Rehab - Neuro-ICU monitoring, neurochecks q 1 hrs Encephalopathy likely 2/2 to Ativan, Fentanyl -s/p Flumazenil 0.5mg x 2 -ABG -CT Head w/out contrast -No sedation needs -Holding blacktop spreader Bupropion, Duloxetine Sedation/Pain Management: -s/p ativan 2mg and fentanyl 25mcg -s/p flumazenil 0.5 mg x 2 -No sedation needs at this time Cardiac: Afib with RVR -[id number]: 4: 4.8% Risk for stroke and 6.7% [...] due to bradycardia at OSH - Holding blacktop spreader Lisinopril 20mg and Metoprolol 25mg BID HLD - Lipid Panel. Goal LDL <70. Continue blacktop spreader atorvastatin 20mg Respiratory: DHRUV -RA - ABG [...] - Blood glucose goal 100-180mg/dl - Holding blacktop spreader levemir, novolog FEN: - IVF: NPO, NS [...] p suprapubic catheter that was admitted at [facility] for urosepsis, DKA, A fib with RVR requiring cardizem ggt that was transferred for concerns for stroke. Admitted on 06/28 to [facility] with week history of cough, SOB. Found to have UTI with urosepsis and DKA with CO2 of 8, BG in 600s. Admitted to the ICU at [facility]. Started on CTX and Insulin ggt. [...] language) 2=neither correct 2 1c. 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, channel marketing specialist and release non-paretic hand (other 1 step [...] more than one modality 2 Score 32 [place] coma score: E: 2 - Opens eyes [...] hours): POC Glucose (Download): (!) 169 (07/01/18 1308) Lab Review: 24-hour labs: Results for orders [...] diagnostic procedures reviewed. Ciarra Valentino, Date: 07/01/[phone] * Edvin Juarez, SHANE-BONE WORKER - 07/01/2018 12:03 PM CDT Formatting of [...] Labs: Pertinent labs reviewed GILLIAN Nelson Pager [phone] in this encounter Procedure Notes * Amy Velasquez MD - 07/01/2018 8:07 PM CDT Procedure(s): EEG AWAKE & ASLEEP EEG REPORT Valdez Anthony 1960 [id number] DATE OF STUDY 07/01/18 PATIENT HISTORY: This [...] mL IVPB (MB+), 1 g, Intravenous, PRN (Retail Customer Service Specialist from Rx) AND Ionized Calcium, , , [...] 250 mL IVPB, 8 mmol, Intravenous, PRN (Retail Customer Service Specialist from Rx) AND Phosphorus, , , PRN [...] here. EGD showed s/p polypectomy. Transferred to [facility] for stroke. Hgb dropped from 10.1 [...] mention that at the [facility] the patient did have an upper endoscopy [...] Resolved Ambulatory Problems Diagnosis Date Noted Sepsis ([facility]) 01/15/2016 Severe sepsis ([facility]) 01/15/2016 LATISHA (acute kidney injury) ([facility]) 01/15/2016 High anion gap metabolic acidosis 01/15/2016 Past Medical History: Diagnosis Date Arthritis DM (diabetes mellitus) ([facility]) DM eyes Glaucoma Hypertension Social [...] Date Noted Anemia 07/03/2018 Agitation 07/03/2018 Stroke ([facility]) 07/01/2018 HTN (hypertension) 01/15/2016 Urinary retention with incomplete bladder emptying 01/15/2016 Diabetes ([facility]) 01/15/2016 Proliferative diabetic retinopathy(362.02) 01/14/2013 Neovascular [...] Color,UA YELLOW Turbidity,UA 2+ (A) CLEAR-CLEAR Specific [place]-Urine 1.017 1.003 - 1.035 pH,UA 5.0 5.0 [...] DKA resolved -A1c 17.4 on 07/01/2018 uncontrolled -JAVA J2EE TECHNICAL LEAD regimen: levemir 40 units QHS, Novolog 20-25 [...] will follow up with local endocrinology in [facility] Patient was seen and discussed with [...] with diabetes in 1994. He follows with beam department supervisor at [facility]. At home, he was taking Levemir 40 units once a day, NovoLog 20-25 units with meal, metformin 1000 mg twice a day. His states that beam department supervisor prescribe NovoLog 40 units 3 times a [...] reviewed. Brenda Larios Endocrine Fellow Pager # [phone] 07/03/2018 Associated attestation - John Chaudhry MD [...] thick full liquids today) Estimated Calorie Needs: 2392-4623 (25-28 kcal/kg desired wt) Estimated Protein Needs: 85-100 (1.2-1.4 g/kg desired wt) Oral Diet Order: Full Liquid, [place] Thick Liquids Current EN Order: Isosource 1.5 [...] s/p suprapubic catheter that was admitted at [facility] for urosepsis, DKA, A fib [...] 07/02. Pt pulled Corpak today despite mits. SEQUINS WINDER evaluated pt via video-swallow with moderate oropharyngeal dysphagia and baseline cognitive deficits. SEQUINS WINDER recommending nectar thick full liquids; diet ordered. [...] meal. Offer No Sugar Added "Light Start Proctor Breakfast Essentials" shakes made with nectar thick [...] Intervention / Plan: assessed nutritional status; ordered Proctor Breakfast shakes with nectar thick milk PRN monitor po intake, adequacy, tolerance and advancement per SEQUINS WINDER findings and recs monitor wt trends, labs, meds and GI status Nutrition Diagnosis: Altered GI function Etiology: swallowing and cognitive deficits Signs & Symptoms: SEQUINS WINDER findings and recs for nectar thick full liquids with supervision Goals: Patient to consume >75% of meals/supplements Time Frame: Within 72 Hours Tata Daniels, MS,RD, LD, [facility] *[phone] * Damian Hensley MD - 07/02/2018 [...] resection, who was admitted upon transfer from [facility] on 07/01/2018 after originally presenting there with sepsis determined to be secondary to UTI complicated by DKA and Atrial Fibrillation and then apparent AMS. The patient was transferred to [facility] where CTA showed right M1 [...] complexity and goals with PT, OT, and SEQUINS WINDER for acute inpatient rehabilitation; however, he is [...] Please have primary SWCM discuss with [facility] medical staff services coordinator according to the patient 's [...] a 57 y.o. male admitted to [facility] on 07/01/2018 with the following issues: R [...] hours while supine in bed, pressure relief [id number] in seated position, PRAFOs for pressure relief and to prevent contractures Jaycob Ramos, DO Rehab Consult Pager: [phone] History of Present Illness Hospital Course: Valdez Anthony is a 57 y.o. male with new onset Atrial Fibrillation with RVR, HTN , HLD, T2DM, Diabetic Retinopathy, OD Blindness, Neovascular Glaucoma, Prostate Cancer s/p prostatectomy, Urinary Retention s/p suprapubic catheter that was admitted at [facility] for urosepsis, DKA, A fib [...] urosepsis. Rehab consulted for post acute rehab/placement. JAVA J2EE TECHNICAL LEAD pt was independent and lived at home [...] Units/ sodium bicarbonate 650 mg(#) PRN ( Retail Customer Service Specialist from Rx) Allergies: No Known Allergies Prior Level of Function Prior Function Level Of Peck: Independent with ADLs and functional transfers Lives [...] L spontaneously. Mitt and soft wrist restraints, [place] strap replaced end of session and bed [...] reports that pt completed videoswallow evaluation at [facility], which she states yielded recommendations for [...] Skylar Heart - 07/09/2018 11:04 AM CDT SUCCESS COACH Note: This film writer printed and placed transfer packet in pt's chart drawer, per request from [facility] Sophia Vaughn. Skylar Heart Canvas Cutter Machine For additional assistance, please contact [facility] Sophia Vaughn *[phone] * Anesthesia Post Op Day 1 - [...] Todays Date: 07/09/2018 Plan D/c to [facility] today at 1:00pm via facility w/c [...] or Referral ? Discharge Planning Discharge Planning: Custodial Facility WILLEM sent updated clinicals to [facility] at [phone]. Update 10:00am: WILLEM spoke with Perla ([phone]) at [facility] to update. Perla educated that they will be available for transportation today at 1:00pm. WILLEM spoke with Neuro Team to update. WILLEM spoke with bedside RN to update. WILLEM tasked SUCCESS COACH to deliver transfer packet. RN Report: [phone] WILLEM faxed d/c orders to [facility] at [phone]. ? Medication Needs ? Financial ? Legal [...] for the patient. Sophia Vaughn LMSW Phone: [phone] Pager: [phone] * Case Mgmt DC Plan - Sophia Vaughn - 07/08/2018 9:10 AM CDT Formatting of this note may be different from the original. Case Management Progress Note NAME:Valdez Anthony :1959 AGE: 57 y.o. ADMISSION DATE: 07/01/2018 DAYS ADMITTED: LOS: 7 days Todays Date: 07/08/2018 Plan Anticipate d/c to [facility] tomorrow pending pt stability. Interventions SW [...] or Referral ? Discharge Planning Discharge Planning: Custodial Facility WILLEM received and returned message for Angela ([phone]) at [facility] to discuss referral. Update 10:00am: WILLEM spoke with Blanquita ([phone]) at [facility] to update of anticipated d/c timeline. Blanquita educated that they are still reviewing for potential admission and will be contacting pt's to further discuss an admission. However, they will notify WILLEM once decision reached. Update 10:44am: WILLEM spoke with Perla at [facility] to update. Perla educated that they are able to accept for admission and will have their w/c van available for such. ? Medication Needs ? Financial [employer] following for assistance with [place] [employer] ariel. ? Legal ? Other Other/None: [...] for the patient. Sophia Vaughn LMSW Phone: [phone] Pager: *[phone] * Care Plan - Shira [...] Todays Date: 07/07/2018 Plan Anticipate d/c to [facility] tomorrow pending pt stability and facility acceptance. Interventions WILLEM reviewed EMR and met with Neuro team for huddle. GI consulted. Anticipated EGD today. ? Support Support: Pt/Family Updates re:POC or DC Plan, Counseling for Adaptation to Illness, Counseling for Psychosocial issues ? Info or Referral ? Discharge Planning Discharge Planning: Custodial Facility WILLEM left message for Admissions ([phone]) at [facility] to discuss referral. Update 11:40am: WILLEM spoke with Hyacinth ([phone]) at [facility] and they are unable to locate referral. WILLEM agreeable to re-send referral to [phone], which WILLEM completed. Hyacinth educated that she will review and follow up. Hyacinth will also speak with her clay preparation supervisor to discuss their ability to assist with transportation. Update 1:20pm: WILLEM received message from Hyacinth and they are still unable to locate referral. WILLEM manually faxed referral to [phone], as requested. Update 2:00pm: SW received message from Hyacinth that they only got a portion of the referral. WILLEM re-faxed referral to [phone]. Update 4:00pm: WILLEM received and returned message for Angela ([phone]) at [facility]. ? Medication Needs ? Financial ? [...] for the patient. Sophia Vaughn LMSW Phone: [phone] Pager: *[phone] * Care Plan - Shira Welch RN [...] Liana Ortiz - 07/06/2018 10:50 AM CDT SUCCESS COACH Note: Received request from [facility] Sophia Vaughn to fax referrals to the following placements. [facility] was also asked to check wheelchair van costs to the facility. [facility] - $350-375 [facility] - $500-525 [facility] - $400-425 [facility] w/c van - $430 All subject to time, billed green party, needs, etc. Updated [facility] Liana Ortiz Canvas Cutter Machine For additional assistance please contact [facility] Sophia Roderick *[phone] * Case Mgmt DC Plan - Martina Vaughnleen - 07/06/2018 10:36 AM CDT Formatting of this note may be different from the original. Case Management Progress Note NAME:Valdez Anthony :1959 AGE: 57 y.o. ADMISSION DATE: 07/01/2018 DAYS ADMITTED: LOS: 5 days Todays Date: 07/06/2018 Plan Anticipate d/c to [facility] tomorrow vs Friday pending pt stability and facility acceptance. Interventions SW reviewed EMR and met with Neuro team for huddle. Anticipate GI consult. Continue to monitor hgb. ? Support Support: Pt/Family Updates re:POC or DC Plan, Counseling for Adaptation to Illness, Counseling for Psychosocial issues SW visited pt and Leticia at bedside to discuss DCP. Leticia requested referral to [facility]. SW agreeable and reviewed referral process. SW also reviewed potential private pay cost of w/c van should SNF be unable to assist. Leticia uncertain regarding their ability to private pay, however unwilling to remain in [facility] for SNF stay. SW agreeable to obtaining quote for ongoing assistance. ? Info or Referral ? Discharge Planning Discharge Planning: Custodial Facility SW tasked SUCCESS COACH [facility]. SW tasked [facility] to check rosenberg of w/c van. ? [...] for the patient. Sophia Vaughn LMSW Phone: [phone] Pager: *[phone] * Case Mgmt DC Plan - [...] or Referral ? Discharge Planning Discharge Planning: Custodial Facility ? Medication Needs ? Financial ? [...] for the patient. Sophia Vaughn LMSW Phone: [phone] Pager: *[phone] * Transfer - Ciarra Valentino, DO - [...] suprapubic catheter that was admitted at [facility] for urosepsis, DKA , A [...] Started on ASA. LDL 40, continued on blacktop spreader atrovastatin. PT/OT and Speech consulted. CV: Initially started on Nicardipine ggt for goal SBP <140. Restarted on blacktop spreader lisinopril. Intermittent Afib on telemetry. Restarted on [...] OSH. DKA resolved. Insulin ggt continued. Holding blacktop spreader Levemir and Novolog. Consider Endocrine consult. Significant [...] Discharge Plan: Undetermined Ciarra Valentino DO Pager [phone] * Case Mgmt DC Plan - Sophia Vaughn - 07/01/2018 3:09 PM CDT Case Management Admission Assessment NAME:Valdez Anthony :1959 AGE: 57 y.o. ADMISSION DATE: 07/01/2018 DAYS ADMITTED: LOS: 0 days Todays Date: 07/01/2018 Source of Information: SW visited pt's Leticia and pt's OCTAVIANO Moseley at bedside. Plan Plan: CM Assessment, Assist PRN with SW/NCM Services Patient Address/Phone [address] [facility] [phone] (home) Emergency Contact Extended Emergency Contact Information Primary Emergency Contact: Suzie English ([facility]) Relation: Relative Secondary Emergency Contact: Leticia Anthony (Judy) [facility] Relation: Spouse Healthcare Directive None Transportation [...] (Medicare Part A and B) Secondary Insurance: [facility] ([facility]) Additional Coverage: VA (fills at [facility]. ) ? Source of Income Source Of Income: SSDI ? Financial Assistance Needed? None Psychosocial Needs ? Mental Health Mental Health History: No ? Substance Use History Substance Use History Screen: No ? Other None Current/Previous Services ? PCP Chris Seay APRN at [facility] ([phone] ext [phone]) ? Pharmacy [facility] [address] [address] ? Durable Medical Equipment Durable Medical Equipment [...] ? Outpatient Therapy PT: No OT: No SEQUINS WINDER: No ? Custodial Facility/Penitentiary SNF: No NH: No Pt's OCTAVIANO Moseley works at [employer], therefore family understanding of LTC and SNF level of cares. ? Inpatient Rehab IPR: No ? [facility] LTACH: No ? Acute Hospital Stay Acute Hospital Stay: In the past Was patient's stay within the last 30 days?: No Sophia Vaughn LMSW Phone: [phone] Pager: [phone] * Acute Stroke Response - Alonzo Watt [...] 57 y.o. male with A-Fib (on Coumadin JAVA J2EE TECHNICAL LEAD), IDDM, Prostate CA, OD blindness, HLD and [...] due to positive occult) - 300mg ASA NV daily - Echocardiogram - MRI head w/o contrast in AM of 07/02 - Monitor telemetry for arrhythmia - NPO - SEQUINS WINDER to eval speech when more alert - PT/OT to eval and treat - Rehab Medicine Consult The patient was seen and discussed with Dr. Gutierrez History of Present Ilness History of Present Illness: Mr. Anthony presented to [facility] on 06/29 with uro-sepsis and DKA. [...] and then to IR for EVT. At [facility] he had dropping Hgb and positive [...] language) 2=neither correct 2 1c. 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, channel marketing specialist and release non-paretic hand (other 1 step [...] Medications: [DEC Hold] calcium gluconate IV PRN (Retail Customer Service Specialist from Rx) AND Ionized Calcium PRN AND Notify Physician Ongoing, [DEC Hold] magnesium sulfate PRN AND Magnesium PRN AND Notify Physician Ongoing, [DEC Hold] potassium chloride SR PRN OR [DEC Hold] potassium chloride PRN, [DEC Hold] sodium phosphate IVPB PRN (Retail Customer Service Specialist from Rx) AND Phosphorus PRN AND Notify [...] Date: 07/01/2018 Attending Physician: Lulu Perry MD Communications Clerk(s): Miri Nair Stroke Treatment Time out performed: [...] Sedated from ativan Lulu Perry MD Pager: [phone] * Acute Stroke Response - Hannah Ceballos [...] Received: 1102 (ETA 10 minutes) EMS Agency: [facility] Outside Hospital: [facility] Clinical Presentation: Decreased LOC, Dysarthria, Left [...] Summary: Report received from MAXINE Pardo at [facility] in [place], [place]. Per report patient last known well today at 0730. At 0825 she noted patient to be less responsive with left side flaccid, dysarthria and left facial droop. Patient transferred to [facility] and upon arrival had decreased LOC. [...] dressing applied at 1228. Patient transported to [place] [address], [facility] and no complications noted. Report given to MAXINE Cooley. CT/CTP/CTA/IR: CTA/CTP time: 1125 CTA/CTP Interpretation time: 1145 N/A Plan: Patient admitted to [place] [address] post procedure for further evaluation and monitoring. [...] Organization Address City/State/Zipcode Phone Number MAIN LAB [address] [place] [address] * POC GLUCOSE (07/09/2018 3:34 PM) Glucose, POC 66 (L) 70 - 100 MG/DL [facility] Performing Organization Address City/[facility] Phone Number [facility] [address] [place] [address] * POC GLUCOSE (07/09/2018 3:18 PM) Glucose, POC 69 (L) 70 - 100 MG/DL [facility] Performing Organization Address City/[facility] Phone Number [facility] [address] [place] [address] * POC GLUCOSE (07/09/2018 1:49 PM) Glucose, POC 136 (H) 70 - 100 MG/DL [facility] Performing Organization Address City/[facility] Phone Number [facility] [address] [place] [address] * POC GLUCOSE (07/09/2018 11:40 AM) Glucose, POC 158 (H) 70 - 100 MG/DL [facility] Performing Organization Address City/[facility] Phone Number [facility] [address] [place] [address] * POC GLUCOSE (07/09/2018 8:35 AM) Glucose, POC 104 (H) 70 - 100 MG/DL [facility] Performing Organization Address [facility] Phone Number [facility] [address] [place] [address] * COMPREHENSIVE METABOLIC PANEL (07/09/2018 5:47 AM) [...] Address City/State/Zipcode Phone Number [facility] [address] [place] [address] * CBC AND DIFF (07/09/2018 5:47 AM) [...] City/State/Zipcode Phone Number [facility] [address] [place] [address] * POC GLUCOSE (07/09/2018 3:09 AM) Glucose, POC 151 (H) 70 - 100 MG/DL [facility] Performing Organization Address City/[facility]/Zipcode Phone Number [facility] [address] [place] [address] * POC GLUCOSE (07/09/2018 1:10 AM) Glucose, POC 80 70 - 100 MG/DL [facility] Performing Organization Address City/[facility]/Zipcode Phone Number MAIN LAB [address] [place] [address] * CULTURE-BLOOD W/SENSITIVITY (07/08/2018 10:25 PM) Battery Name BLOOD CULTURE MAIN LAB Specimen Description BLOOD MAIN LAB LEFT HAND Special Requests NONE MAIN LAB Culture NO GROWTH 5 DAYS MAIN LAB Report Status FINAL MAIN LAB 07/14/2018 Specimen Blood Performing Organization Address City/[facility]/Zipcode Phone Number MAIN LAB [address] [place] [address] * POC GLUCOSE (07/08/2018 9:52 PM) Glucose, POC 96 70 - 100 MG/DL [facility] Performing Organization Address City/[facility] Phone Number MAIN LAB [address] [place] [address] * CULTURE-BLOOD W/SENSITIVITY (07/08/2018 8:20 PM) Battery Name BLOOD CULTURE MAIN LAB Specimen Description BLOOD MAIN LAB LEFT ANTECUBITAL Special Requests NONE MAIN LAB Culture NO GROWTH 5 DAYS MAIN LAB Report Status FINAL MAIN LAB 07/14/2018 Specimen Blood Performing Organization Address City/[facility]/Zipcode Phone Number MAIN LAB [address] [place] [address] * POC GLUCOSE (07/08/2018 5:56 PM) Glucose, POC 129 (H) 70 - 100 MG/DL [facility] Performing Organization Address City/State/Zipcode Phone Number [facility] MAIN [facility] [address] [place] [address] * SURGICAL PATHOLOGY (07/08/2018 4:34 PM) PATHOLOGY REPORT [facility] [email or web address] Department of Pathology and Laboratory Medicine [address] [place] [address] Surgical Pathology Office:[phone] :[phone] SURGICAL PATHOLOGY REPORT NAME: VALDEZ ANTHONY SURG PATH #: [id number] MR #: [id number] SPECIMEN CLASS: SR BILLING #: [id number] ALT ID #:LOCATION: DISCHARGED DATE OF PROCEDURE: [...] cassette C1. (ab) ab/07/08/2018 Performing Organization Address [facility] Phone Number [facility] RESULTS * UA REFLEX CULTURE LABEL (07/08/2018 4:09 PM) UA Reflex Culture LAB LABEL [facility]IN [facility] Specimen Urine Performing Organization Address [facility] Phone Number [facility] [address] [place] [address] * URINALYSIS MICROSCOPIC REFLEX TO CULTURE (07/08/2018 4:09 PM) WBCs,UA 0-2 0 - 2 /HPF [facility] RBCs,UA 0-2 0 - 3 /HPF [facility] Comment,UA Urine submitted for reflex [facility] culture if criteria are met:WBC>10, positive nitrite and/or >=1+ leukocyte esterase. If quantity is not sufficient, an addendum will follow. Specimen Urine Performing Organization Address [facility] Phone Number MAIN LAB [address] [place] [address] * URINALYSIS DIPSTICK REFLEX TO CULTURE (07/08/2018 4:09 PM) Color,UA STRAW [facility] Turbidity,UA CLEAR CLEAR-CLEAR [facility] Specific [place]-Urine 1.005 1.003 - 1.035 [facility] MAIN LAB [...] City/State/Zipcode Phone Number [facility] [address] [place] [address] * CHEST SINGLE VIEW (07/08/2018 2:15 PM) [...] Performing Organization Address City/[facility]/Zipcode Phone Number RAD RESULTS * POC GLUCOSE (07/08/2018 1:57 PM) Glucose, POC 75 70 - 100 MG/DL MAIN LAB Performing Organization Address City/[facility] Phone Number MAIN LAB [address] [place] [address] * POC GLUCOSE (07/08/2018 1:21 PM) Glucose, POC 67 (L) 70 - 100 MG/DL MAIN LAB Performing Organization Address [facility] Phone Number MAIN LAB [address] [place] [address] * POC GLUCOSE (07/08/2018 11:46 AM) Glucose, POC 164 (H) 70 - 100 MG/DL MAIN LAB Performing Organization Address [facility] Phone Number MAIN LAB [address] [place] [address] * POC GLUCOSE (07/08/2018 11:22 AM) Glucose, POC 40 (LL) 70 - 100 MG/DL MAIN LAB Performing Organization Address [facility] Phone Number MAIN LAB [address] [place] [address] * EGD REPORT (07/08/2018 10:48 AM) Provation Report Patient Name: Raj DIMAS OTHER RESULTS Procedure Date: 07/08/2018 10:48 AM CSN: [id number] Date of : 1960 Gender: Male Attending Physician: Clara Carolina MD Procedure: Upper GI endoscopy Indications: Anemia (Mixed picture of anemia of chronic disease + Iron deficiency anemia), new onset of Afib and not on AC. Providers: Clara Carolina MD (Doctor), Roberto Dutta MD (Fellow), Alvaro Banegas (Nurse), Minna Jiménez RN (Nurse), Abisai Burden, Machine Cell Tuber (Machine Cell Tuber) Referring Physician: Referral Self Medications: Monitored Anesthesia [...] 55 seconds Procedure Code(s): --- Professional --- 29689, Esophagogastroduodenoscopy, flexible, transoral; with biopsy, single or multiple Diagnosis Code(s): --- Professional --- K44.9, Diaphragmatic hernia without obstruction or gangrene K31.89, Other diseases of stomach and duodenum D50.0, Iron deficiency anemia secondary to blood loss (chronic) CPT copyright 2016 [employer]. All rights reserved. The codes documented in this report are preliminary and upon certified medical coder review may be revised to meet [...] RESULTS Procedure Date: 07/08/2018 10:47 AM CSN: [id number] Date of : 1960 Gender: Male Attending Physician: Clara Carolina MD Procedure: Colonoscop y Indications: Anemia (Mixed picture of anemia of chronic disease + Iron deficiency anemia), new onset of Afib and not on AC. Providers: Clara Carolina MD (Doctor), Roberto Dutta MD (Fellow), Alvaro Banegas (Nurse), Minna Jiménez RN (Nurse), Abisai Burden, Machine Cell Tuber (Machine Cell Tuber) Referring Physician: Gerard Salazar MD Medications: Monitored [...] 15 seconds Procedure Code(s): --- Professional --- 05931, Colonoscopy, flexible; diagnostic, including collection of specimen(s) by brushing or washing, when performed (separate procedure) Diagnosis Code(s): --- Professional --- D50.0, Iron deficiency anemia secondary to blood loss (chronic) CPT copyright 2016 [employer]. All rights reserved. The codes documented in this report are preliminary and upon certified medical coder review may be revised to meet current compliance requirements. Attending Participation: I was present and participated during the entire procedure, including non-jacobs portions. MD Clara De Oliveira MD 07/08/2018 1:28:26 PM The attending physician has electronically signed and finalized this document. Roberto Dutta MD Number of Addenda: 0 Note Initiated On: 07/08/2018 10:47 AM Performing Organization Address City/[facility] Phone Number OTHER RESULTS * POC GLUCOSE (07/08/2018 7:33 AM) Glucose, POC 88 70 - 100 MG/DL [facility] Performing Organization Address [facility] Phone Number MAIN LAB [address] [place] [address] * PROCALCITONIN (07/08/2018 5:53 AM) Procalcitonin 0.13 (H) <0.10 NG/ML [facility] Performing Organization Address [facility] Phone Number MAIN LAB [address] [place] [address] * COMPREHENSIVE METABOLIC PANEL (07/08/2018 5:53 AM) [...] Performing Organization Address City/[facility]/Zipcode Phone Number MAIN LAB [address] [place] [address] * CBC AND DIFF (07/08/2018 5:53 AM) [...] Performing Organization Address City/[facility]/Zipcode Phone Number MAIN LAB [address] [place] [address] * POC GLUCOSE (07/07/2018 9:26 PM) Glucose, POC 176 (H) 70 - 100 MG/DL [facility] Performing Organization Address [facility] Phone Number [facility] [address] [place] [address] * POC GLUCOSE (07/07/2018 5:54 PM) Glucose, POC 111 (H) 70 - 100 MG/DL [facility] Performing Organization Address [facility] Phone Number [facility] [address] [place] [address] * POC GLUCOSE (07/07/2018 11:30 AM) Glucose, POC 90 70 - 100 MG/DL [facility] Performing Organization Address [facility] Phone Number [facility] [address] [place] [phone] * CBC AND DIFF (07/07/2018 8:00 AM) [...] LAB Specimen Blood Performing Organization Address [facility] Phone Number MAIN LAB [address] [place] [phone] * POC GLUCOSE (07/07/2018 7:49 AM) Glucose, POC 182 (H) 70 - 100 MG/DL [facility] Performing Organization Address [facility] Phone Number [facility] [address] [place] [address] * COMPREHENSIVE METABOLIC PANEL (07/07/2018 5:45 AM) [...] Clinical Pharmacist for questions. Performing Organization Address [facility] Phone Number MAIN LAB [address] [place] [address] * HEMOGLOBIN (07/07/2018 5:45 AM) Hemoglobin 9.5 (L) 13.5 - 16.5 GM/DL MAIN LAB Comment: Corrected on 07/09 AT 1021: previously reported as DUPLICATE ORDER, Corrected on 07/07 AT 0811: previously reported as 9.5 Specimen Blood Performing Organization Address [facility] Phone Number MAIN LAB [address] [place] [address] * HEMOGLOBIN (07/06/2018 10:45 PM) Hemoglobin 10.5 (L) 13.5 - 16.5 GM/DL MAIN LAB Specimen Blood Performing Organization Address City/[facility] Phone Number MAIN LAB [address] [place] [address] * OCCULT BLOOD NON COLON CANCER SCREEN (07/06/2018 10:45 PM) Battery Name OCCULT BLOOD SCREEN MAIN LAB Specimen Description FECES MAIN LAB Special Requests NONE MAIN LAB Occult Blood NEGATIVE MAIN LAB Report Status FINAL MAIN LAB 07/06/2018 Specimen Stool - Feces Performing Organization Address [facility] Phone Number MAIN LAB [address] [place] [address] * POC GLUCOSE (07/06/2018 9:04 PM) Glucose, POC 115 (H) 70 - 100 MG/DL [facility] Performing Organization Address [facility] [place] [place] Phone Number MAIN LAB [address] [place] [address] * POC GLUCOSE (07/06/2018 5:11 PM) Glucose, POC 150 (H) 70 - 100 MG/DL [facility] Performing Organization Address [facility] Phone Number MAIN LAB [address] [place] [address] * POC GLUCOSE (07/06/2018 2:36 PM) Glucose, POC 196 (H) 70 - 100 MG/DL MAIN LAB Performing Organization Address [facility] Phone Number MAIN LAB [address] [place] [address] * HEMOGLOBIN (07/06/2018 1:31 PM) Hemoglobin 8.9 (L) 13.5 - 16.5 GM/DL MAIN LAB Specimen Blood Performing Organization Address [facility] Phone Number [facility] [address] [place] [address] * POC GLUCOSE (07/06/2018 11:49 AM) Glucose, POC 153 (H) 70 - 100 MG/DL [facility] Performing Organization Address [facility] Phone Number [facility] [address] [place] [address] * POC GLUCOSE (07/06/2018 7:29 AM) Glucose, POC 130 (H) 70 - 100 MG/DL [facility] Performing Organization Address [facility] [place] [place] Phone Number [facility]IN [facility] [address] [place] [address] * HEMOGLOBIN (07/06/2018 4:27 AM) Hemoglobin 9.1 (L) 13.5 - 16.5 GM/DL MAIN LAB Specimen Blood Performing Organization Address [facility] [place] [place] Phone Number MAIN LAB [address] [place] [address] * CBC (07/06/2018 4:27 AM) White Blood [...] LAB Specimen Blood Performing Organization Address [facility] Phone Number [facility] [address] [place] [address] * BASIC METABOLIC PANEL (07/06/2018 4:27 AM) [...] Performing Organization Address City/[facility]/Zipcode Phone Number MAIN LAB [address] [place] [address] * POC GLUCOSE (07/06/2018 2:35 AM) Glucose, POC 132 (H) 70 - 100 MG/DL [facility] Performing Organization Address [facility] Phone Number [facility] [address] [place] [address] * POC GLUCOSE (07/05/2018 10:09 PM) Glucose, POC 89 70 - 100 MG/DL [facility] Performing Organization Address [facility] Phone Number MAIN LAB [address] [place] [address] * HEMOGLOBIN (07/05/2018 9:40 PM) Hemoglobin 10.1 (L) 13.5 - 16.5 GM/DL [facility]IN [facility] Specimen Blood Performing Organization Address City/[facility]/Zipcode Phone Number [facility]IN [facility] [address] [place] [address] * POC GLUCOSE (07/05/2018 9:37 PM) Glucose, POC 77 70 - 100 MG/DL [facility] Performing Organization Address [facility] Phone Number [facility] [address] [place] [address] * POC GLUCOSE (07/05/2018 8:15 PM) Glucose, POC 81 70 - 100 MG/DL [facility] Performing Organization Address City/[facility] Phone Number [facility] [address] [place] [address] * CULTURE-URINE W/SENSITIVITY (07/05/2018 6:45 PM) Battery Name URINE CULTURE [facility]IN [facility] Specimen Description URINE [facility] Special Requests NONE [facility] MAIN [facility] Culture NO GROWTH [facility] Report Status FINAL [facility]IN [facility] 07/06/2018 Specimen Urine Performing Organization Address [facility] Phone Number [facility] [address] [place] [phone] * UA REFLEX CULTURE LABEL (07/05/2018 6:45 PM) UA Reflex Culture LAB LABEL [facility] Specimen Urine Performing Organization Address [facility] Phone Number [facility] [address] [place] [address] * URINALYSIS MICROSCOPIC REFLEX TO CULTURE (07/05/2018 [...] MAIN LAB Specimen Urine Performing Organization Address [facility] Phone Number [facility] [address] [place] [address] * URINALYSIS DIPSTICK REFLEX TO CULTURE (07/05/2018 6:45 PM) Color,UA YELLOW [facility] MAIN [facility] Turbidity,UA 2+ (A) CLEAR-CLEAR [facility] Specific [place]-Urine 1.017 1.003 - 1.035 [facility] MAIN LAB [...] MAIN LAB Specimen Urine Performing Organization Address [facility] Phone Number MAIN LAB [address] [place] [address] * POC GLUCOSE (07/05/2018 4:37 PM) Glucose, POC 79 70 - 100 MG/DL [facility] Performing Organization Address [facility] Phone Number MAIN LAB [address] [place] [address] * POC GLUCOSE (07/05/2018 2:02 PM) Glucose, POC 92 70 - 100 MG/DL MAIN LAB Performing Organization Address [facility] Phone Number MAIN LAB [address] [place] [address] * HEMOGLOBIN (07/05/2018 2:00 PM) Hemoglobin 9.6 (L) 13.5 - 16.5 GM/DL MAIN LAB Specimen Blood Performing Organization Address [facility] Phone Number MAIN LAB [address] [place] [address] * POC GLUCOSE (07/05/2018 11:32 AM) Glucose, POC 102 (H) 70 - 100 MG/DL MAIN LAB Performing Organization Address [facility] [place] [place] Phone Number MAIN LAB [address] [place] [address] * ABDOMEN AP ONLY (07/05/2018 9:20 AM) [...] on 07/05/2018 10:21 AM. Performing Organization Address [facility] HospitalGamePixco Phone Number RAD RESULTS * POC GLUCOSE (07/05/2018 6:56 AM) Glucose, POC 139 (H) 70 - 100 MG/DL MAIN LAB Performing Organization Address [facility] [place] [place] Phone Number [facility] [address] [place] [address] * CBC (07/05/2018 5:50 AM) White Blood Cells 12.4 (H) 4.5 - 11.0 [facility] RBC 3.21 (L) 4.4 - 5.5 [facility] Hemoglobin 9.5 (L) 13.5 - 16.5 GM/DL [facility] Hematocrit 27.9 (L) 40 - 50 % [facility] MCV 86.9 80 - 100 [facility] MCH 29.6 26 - 34 [facility] MCHC 34.1 32.0 - 36.0 G/DL [facility] RDW 14.0 11 - 15 % [facility] Platelet Count 413 (H) 150 - 400 [facility] MPV 8.7 7 - 11 [facility] Specimen Blood Performing Organization Address [facility] [place] [place] Phone Number [facility] [address] [place] [address] * POC GLUCOSE (07/05/2018 5:29 AM) Glucose, POC 125 (H) 70 - 100 MG/DL [facility]IN [facility] Performing Organization Address [facility]/Zipcode Phone Number MAIN LAB [address] [place] [address] * BASIC METABOLIC PANEL (07/05/2018 5:25 AM) [...] Performing Organization Address City/[facility]/Zipcode Phone Number MAIN LAB [address] [place] [address] * POC GLUCOSE (07/05/2018 2:37 AM) Glucose, POC 103 (H) 70 - 100 MG/DL [facility] Performing Organization Address [facility] Phone Number [facility] [address] [place] [address] * POC GLUCOSE (07/05/2018 1:31 AM) Glucose, POC 94 70 - 100 MG/DL [facility] Performing Organization Address City/State/Zipcode Phone Number MAIN LAB [address] [place] [address] * POC GLUCOSE (07/05/2018 12:41 AM) Glucose, POC 121 (H) 70 - 100 MG/DL [facility] Performing Organization Address City/[facility]/Zipcode Phone Number MAIN LAB [address] [place] [address] * POC GLUCOSE (07/04/2018 11:19 PM) Glucose, POC 84 70 - 100 MG/DL [facility] Performing Organization Address City/[facility]/Zipcode Phone Number [facility] [address] [place] [address] * HEMOGLOBIN (07/04/2018 9:30 PM) Hemoglobin 13.5 13.5 - 16.5 GM/DL [facility] Specimen Blood Performing Organization Address [facility] Phone Number [facility] [address] [place] [address] * POC GLUCOSE (07/04/2018 9:15 PM) Glucose, POC 105 (H) 70 - 100 MG/DL [facility] Performing Organization Address [facility] Phone Number [facility] [address] [place] [address] * POC GLUCOSE (07/04/2018 7:50 PM) Glucose, POC 164 (H) 70 - 100 MG/DL [facility] Performing Organization Address [facility] Phone Number [facility] [address] [place] [address] * POC GLUCOSE (07/04/2018 7:23 PM) Glucose, POC 44 (LL) 70 - 100 MG/DL [facility] Performing Organization Address [facility] [place] [place] Phone Number [facility] [address] [place] [address] * POC GLUCOSE (07/04/2018 5:10 PM) Glucose, POC 96 70 - 100 MG/DL [facility] Performing Organization Address [facility] Phone Number MAIN LAB [address] [place] [address] * IRON + BINDING CAPACITY + %SAT+ FERRITIN (07/04/2018 2:20 PM) Iron 49 (L) 50 - 185 MCG/DL [facility] Iron Binding-TIBC 212 (L) 270 - 380 MCG/DL [facility] % Saturation 23 (L) 28 - 42 % [facility] Ferritin 383 (H) 30 - 300 NG/ML [facility] Specimen Blood Performing Organization Address City/[facility]/Zipcode Phone Number MAIN LAB [address] [place] [address] * POC GLUCOSE (07/04/2018 2:19 PM) Glucose, POC 137 (H) 70 - 100 MG/DL [facility] Performing Organization Address [facility] Phone Number MAIN LAB [address] [place] [address] * POC GLUCOSE (07/04/2018 1:42 PM) Glucose, POC 114 (H) 70 - 100 MG/DL [facility] Performing Organization Address [facility] Phone Number MAIN LAB [address] [place] [address] * POC GLUCOSE (07/04/2018 1:16 PM) Glucose, POC 55 (L) 70 - 100 MG/DL [facility] Performing Organization Address City/[facility] Phone Number MAIN LAB [address] [place] [address] * HEMOGLOBIN (07/04/2018 1:15 PM) Hemoglobin 9.4 (L) 13.5 - 16.5 GM/DL [facility] Specimen Blood Performing Organization Address [facility] Phone Number MAIN LAB [address] [place] [address] * POC GLUCOSE (07/04/2018 12:52 PM) Glucose, POC 66 (L) 70 - 100 MG/DL [facility] Performing Organization Address [facility] Phone Number MAIN LAB [address] [place] [address] * POC GLUCOSE (07/04/2018 12:19 PM) Glucose, POC 66 (L) 70 - 100 MG/DL [facility] Performing Organization Address [facility] Phone Number MAIN LAB [address] [place] [address] * POC GLUCOSE (07/04/2018 12:17 PM) Glucose, POC 59 (L) 70 - 100 MG/DL [facility] Performing Organization Address City/[facility] Phone Number MAIN LAB [address] [place] [address] * POC GLUCOSE (07/04/2018 10:28 AM) Glucose, POC 144 (H) 70 - 100 MG/DL [facility] Performing Organization Address City/[facility] Phone Number [facility] [address] [place] [address] * POC GLUCOSE (07/04/2018 9:31 AM) Glucose, POC 197 (H) 70 - 100 MG/DL [facility] Performing Organization Address [facility] Phone Number [facility] [address] [place] [address] * POC GLUCOSE (07/04/2018 8:38 AM) Glucose, POC 184 (H) 70 - 100 MG/DL [facility] Performing Organization Address [facility] Phone Number [facility] [address] [place] [address] * POC GLUCOSE (07/04/2018 7:29 AM) Glucose, POC 150 (H) 70 - 100 MG/DL [facility] Performing Organization Address [facility] [place] [place] Phone Number [facility] [address] [place] [address] * POC GLUCOSE (07/04/2018 6:31 AM) Glucose, POC 119 (H) 70 - 100 MG/DL [facility] Performing Organization Address [facility] [place] [place] Phone Number [facility] [address] [place] [address] * CBC (07/04/2018 5:47 AM) White Blood [...] LAB Specimen Blood Performing Organization Address [facility] Phone Number [facility] [address] [place] [address] * BASIC METABOLIC PANEL (07/04/2018 5:47 AM) [...] Performing Organization Address City/[facility] Phone Number MAIN LAB [address] [place] [address] * POC GLUCOSE (07/04/2018 5:36 AM) Glucose, POC 126 (H) 70 - 100 MG/DL [facility] Performing Organization Address [facility] Phone Number MAIN LAB [address] [place] [address] * POC GLUCOSE (07/04/2018 4:36 AM) Glucose, POC 94 70 - 100 MG/DL [facility] Performing Organization Address [facility] Phone Number [facility] [address] [place] [address] * POC GLUCOSE (07/04/2018 3:24 AM) Glucose, POC 120 (H) 70 - 100 MG/DL [facility] Performing Organization Address [facility] Phone Number MAIN LAB [address] [place] [address] * POC GLUCOSE (07/04/2018 2:14 AM) Glucose, POC 112 (H) 70 - 100 MG/DL [facility] Performing Organization Address City/[facility]/Zipcode Phone Number MAIN LAB [address] [place] [address] * POC GLUCOSE (07/04/2018 12:37 AM) Glucose, POC 126 (H) 70 - 100 MG/DL [facility] Performing Organization Address [facility] Phone Number MAIN LAB [address] [place] [address] * BLOOD TYPE CONFIRMATION - ORDER ONLY IF REQUESTED BY LAB (07/04/2018 12:13 AM) ABO/RH(D) O NEG MAIN LAB Specimen Blood Performing Organization Address [facility] Phone Number MAIN LAB [address] [place] [address] * TYPE & CROSSMATCH (07/03/2018 11:48 PM) Units Ordered 1 MAIN LAB Crossmatch Expires 07/06/2018 [facility] Record Check 2ND TYPE REQUIRED MAIN LAB ABO/RH(D) O NEG MAIN LAB Antibody Screen NEG MAIN LAB Electronic Crossmatch YES [facility] Unit Number [id number] MAIN LAB Blood Component Type RBC,CPDA,LEUKO REDUCED MAIN LAB Unit Division 0 MAIN LAB Status OF Unit TRANSFUSED [facility] Transfusion Status OK TO TRANSFUSE MAIN LAB Crossmatch Result COMPATIBLE,ELECTRONIC MAIN LAB Specimen Blood Performing Organization Address [facility] [place] [place] Phone Number MAIN LAB [address] [place] [address] * POC GLUCOSE (07/03/2018 11:21 PM) Glucose, POC 197 (H) 70 - 100 MG/DL [facility] Performing Organization Address [facility] Phone Number MAIN LAB [address] [place] [address] * POC GLUCOSE (07/03/2018 10:12 PM) Glucose, POC 218 (H) 70 - 100 MG/DL [facility] Performing Organization Address [facility] Phone Number MAIN LAB [address] [place] [address] * HEMOGLOBIN (07/03/2018 10:02 PM) Hemoglobin 6.8 (L) 13.5 - 16.5 GM/DL [facility] Specimen Blood Performing Organization Address City/State/Zipcode Phone Number MAIN LAB [address] [place] [address] * POC GLUCOSE (07/03/2018 9:19 PM) Glucose, POC 187 (H) 70 - 100 MG/DL [facility] Performing Organization Address City/State/Zipcode Phone Number MAIN LAB [address] [place] [address] * POC GLUCOSE (07/03/2018 7:40 PM) Glucose, POC 113 (H) 70 - 100 MG/DL [facility] Performing Organization Address City/State/Zipcode Phone Number MAIN LAB [address] [place] [address] * POC GLUCOSE (07/03/2018 6:37 PM) Glucose, POC 143 (H) 70 - 100 MG/DL [facility] Performing Organization Address City/[facility]/Zipcode Phone Number MAIN LAB [address] [place] [address] * POC GLUCOSE (07/03/2018 5:31 PM) Glucose, POC 157 (H) 70 - 100 MG/DL MAIN LAB Performing Organization Address City/[facility]/Zipcode Phone Number MAIN LAB [address] [place] [address] * POC GLUCOSE (07/03/2018 4:35 PM) Glucose, POC 190 (H) 70 - 100 MG/DL [facility] Performing Organization Address City/[facility]/Zipcode Phone Number MAIN LAB [address] [place] [address] * POC GLUCOSE (07/03/2018 3:36 PM) Glucose, POC 190 (H) 70 - 100 MG/DL MAIN LAB Performing Organization Address City/State/Zipcode Phone Number MAIN LAB [address] [place] [address] * HEMOGLOBIN (07/03/2018 3:25 PM) Hemoglobin 7.2 (L) 13.5 - 16.5 GM/DL MAIN LAB Specimen Blood Performing Organization Address City/State/Zipcode Phone Number MAIN LAB [address] [place] [address] * POC GLUCOSE (07/03/2018 2:22 PM) Glucose, POC 176 (H) 70 - 100 MG/DL [facility] Performing Organization Address [facility] Phone Number MA[facility] LAB [address] [place] [address] * POC GLUCOSE (07/03/2018 1:24 PM) Glucose, POC 254 (H) 70 - 100 MG/DL [facility] Performing Organization Address [facility] [place] [place] Phone Number [facility] [address] [place] [address] * POC GLUCOSE (07/03/2018 12:20 PM) Glucose, POC 307 (H) 70 - 100 MG/DL [facility] Performing Organization Address [facility] [place] [place] Phone Number MAIN LAB [address] [place] [address] * POC GLUCOSE (07/03/2018 10:45 AM) Glucose, POC 268 (H) 70 - 100 MG/DL [facility] Performing Organization Address [facility] [place] [place] Phone Number MAIN LAB [address] [place] [address] * POC GLUCOSE (07/03/2018 9:22 AM) Glucose, POC 233 (H) 70 - 100 MG/DL MAIN LAB Performing Organization Address [facility] [place] [place] Phone Number MAIN LAB [address] [place] [address] * SWALLOW MOTION SERIES (07/03/2018 8:59 AM) [...] Organization Address City/State/Zipcode Phone Number MAIN LAB [address] [place] [address] * ECG-SCAN (07/03/2018 7:35 AM) Narrative Performed At Ordered by an unspecified provider. * POC GLUCOSE (07/03/2018 5:03 AM) Glucose, POC 109 (H) 70 - 100 MG/DL [facility] Performing Organization Address [facility] Phone Number MAIN LAB [address] [place] [address] * CBC (07/03/2018 4:11 AM) White Blood [...] Performing Organization Address City/[facility] Phone Number MAIN LAB [address] [place] [address] * BASIC METABOLIC PANEL (07/03/2018 4:11 AM) [...] Performing Organization Address City/[facility] Phone Number [facility] [address] [place] [address] * POC GLUCOSE (07/03/2018 3:57 AM) Glucose, POC 132 (H) 70 - 100 MG/DL [facility] Performing Organization Address City/State/Zipcode Phone Number MAIN LAB [address] [place] [address] * POC GLUCOSE (07/03/2018 3:06 AM) Glucose, POC 145 (H) 70 - 100 MG/DL [facility] Performing Organization Address City/State/Zipcode Phone Number MAIN LAB [address] [place] [address] * POC GLUCOSE (07/03/2018 2:01 AM) Glucose, POC 154 (H) 70 - 100 MG/DL [facility] Performing Organization Address City/State/Zipcode Phone Number MAIN LAB [address] [place] [address] * POC GLUCOSE (07/03/2018 1:05 AM) Glucose, POC 112 (H) 70 - 100 MG/DL MAIN LAB Performing Organization Address City/State/Zipcode Phone Number MAIN LAB [address] [place] [address] * POC GLUCOSE (07/03/2018 12:35 AM) Glucose, POC 98 70 - 100 MG/DL [facility] Performing Organization Address City/State/Zipcode Phone Number MAIN LAB [address] [place] [address] * POC GLUCOSE (07/03/2018 12:13 AM) Glucose, POC 78 70 - 100 MG/DL [facility] Performing Organization Address City/State/Zipcode Phone Number MAIN LAB [address] [place] [address] * POC GLUCOSE (07/02/2018 11:03 PM) Glucose, POC 102 (H) 70 - 100 MG/DL [facility] Performing Organization Address City/State/Zipcode Phone Number MAIN LAB [address] [place] [address] * POC GLUCOSE (07/02/2018 9:56 PM) Glucose, POC 184 (H) 70 - 100 MG/DL [facility] Performing Organization Address City/State/Zipcode Phone Number [facility] [address] [place] [address] * POC GLUCOSE (07/02/2018 9:36 PM) Glucose, POC 49 (LL) 70 - 100 MG/DL [facility] Performing Organization Address City/State/Zipcode Phone Number MAIN LAB [address] [place] [address] * POC GLUCOSE (07/02/2018 9:32 PM) Glucose, POC 50 (L) 70 - 100 MG/DL [facility] Performing Organization Address City/State/Zipcode Phone Number MAIN LAB [address] [place] [address] * POC GLUCOSE (07/02/2018 9:13 PM) Glucose, POC 59 (L) 70 - 100 MG/DL [facility] Performing Organization Address City/[facility]/Zipcode Phone Number MAIN LAB [address] [place] [address] * POC GLUCOSE (07/02/2018 9:11 PM) Glucose, POC 58 (L) 70 - 100 MG/DL [facility] Performing Organization Address City/[facility]/Zipcode Phone Number MAIN LAB [address] [place] [address] * POC GLUCOSE (07/02/2018 7:58 PM) Glucose, POC 121 (H) 70 - 100 MG/DL [facility] Performing Organization Address City/[facility]/Zipcode Phone Number MAIN LAB [address] [place] [address] * POC GLUCOSE (07/02/2018 6:56 PM) Glucose, POC 162 (H) 70 - 100 MG/DL [facility] Performing Organization Address City/[facility]/Zipcode Phone Number MAIN LAB [address] [place] [address] * POC GLUCOSE (07/02/2018 6:07 PM) Glucose, POC 180 (H) 70 - 100 MG/DL [facility] Performing Organization Address City/State/Zipcode Phone Number MAIN LAB [address] [place] [address] * POC GLUCOSE (07/02/2018 4:52 PM) Glucose, POC 195 (H) 70 - 100 MG/DL [facility] Performing Organization Address City/State/Zipcode Phone Number MAIN LAB [address] [place] [address] * POC GLUCOSE (07/02/2018 4:24 PM) Glucose, POC 204 (H) 70 - 100 MG/DL [facility] Performing Organization Address City/State/Zipcode Phone Number MAIN LAB [address] [place] [address] * POC GLUCOSE (07/02/2018 3:09 PM) Glucose, POC 212 (H) 70 - 100 MG/DL [facility] Performing Organization Address City/State/Zipcode Phone Number MAIN LAB [address] [place] [address] * POC GLUCOSE (07/02/2018 2:13 PM) Glucose, POC 204 (H) 70 - 100 MG/DL [facility] Performing Organization Address City/State/Zipcode Phone Number MAIN LAB [address] [place] [address] * POC GLUCOSE (07/02/2018 12:59 PM) Glucose, POC 235 (H) 70 - 100 MG/DL [facility] Performing Organization Address City/[facility]/Zipcode Phone Number MAIN LAB [address] [place] [address] * POC GLUCOSE (07/02/2018 12:02 PM) Glucose, POC 244 (H) 70 - 100 MG/DL [facility] Performing Organization Address City/State/Zipcode Phone Number MAIN LAB [address] [place] [address] * POC GLUCOSE (07/02/2018 11:10 AM) Glucose, POC 229 (H) 70 - 100 MG/DL MAIN LAB Performing Organization Address City/State/Zipcode Phone Number MAIN LAB [address] [place] [address] * ABDOMEN AP ONLY (07/02/2018 10:20 AM) [...] Performing Organization Address City/[facility] Phone Number [facility] [address] [place] [address] * POC GLUCOSE (07/02/2018 9:22 AM) Glucose, POC 209 (H) 70 - 100 MG/DL [facility] Performing Organization Address City/State/Zipcode Phone Number [place] [address] [place] [address] * POC GLUCOSE (07/02/2018 8:04 AM) Glucose, POC 186 (H) 70 - 100 MG/DL [facility] Performing Organization Address City/[facility] Phone Number [place] [address] [place] [address] * POC GLUCOSE (07/02/2018 6:05 AM) Glucose, POC 142 (H) 70 - 100 MG/DL [facility] Performing Organization Address City/[facility] Phone Number [facility] LAB [address] [place] [address] * POC GLUCOSE (07/02/2018 5:00 AM) Glucose, POC 125 (H) 70 - 100 MG/DL [facility] Performing Organization Address City/[facility] Phone Number [facility] LAB [address] [place] [address] * PHOSPHORUS (07/02/2018 4:15 AM) Phosphorus 2.6 2.0 - 4.0 MG/DL MAIN LAB Specimen Blood Performing Organization Address City/[facility] Phone Number [facility] LAB [address] [place] [address] * MAGNESIUM (07/02/2018 4:15 AM) Magnesium 1.9 1.6 - 2.6 mg/dL MAIN LAB Specimen Blood Performing Organization Address City/[facility] Phone Number [facility] LAB [address] [place] [address] * IONIZED CALCIUM (07/02/2018 4:15 AM) Ionized Calcium 1.14 1.0 - 1.3 MMOL/L MAIN LAB Specimen Blood Performing Organization Address [facility] Phone Number MA[facility] LAB [address] [place] [address] * CULTURE-BLOOD W/SENSITIVITY (07/02/2018 4:15 AM) Battery Name BLOOD CULTURE MAIN LAB Specimen Description BLOOD MAIN LAB RIGHT RADIAL ARTERIAL Special Requests NONE MAIN LAB Culture NO GROWTH 5 DAYS [facility] Report Status FINAL MAIN LAB 07/08/2018 Specimen Blood Performing Organization Address City/[facility] Phone Number MA[facility] LAB [address] [place] [address] * CBC (07/02/2018 4:15 AM) White Blood [...] Performing Organization Address City/[facility] Phone Number [facility] LAB [address] [place] [address] * BASIC METABOLIC PANEL (07/02/2018 4:15 AM) [...] Performing Organization Address City/[facility]/Zipcode Phone Number MAIN LAB [address] [place] [address] * POC GLUCOSE (07/02/2018 4:00 AM) Glucose, POC 129 (H) 70 - 100 MG/DL [facility] Performing Organization Address City/[facility]/Zipcode Phone Number MAIN LAB [address] [place] [address] * POC GLUCOSE (07/02/2018 3:06 AM) Glucose, POC 116 (H) 70 - 100 MG/DL [facility] Performing Organization Address City/State/Zipcode Phone Number MAIN LAB [address] [place] [address] * POC GLUCOSE (07/02/2018 2:02 AM) Glucose, POC 113 (H) 70 - 100 MG/DL [facility] Performing Organization Address City/[facility]/Zipcode Phone Number MAIN LAB [address] [place] [address] * POC GLUCOSE (07/02/2018 1:12 AM) Glucose, POC 147 (H) 70 - 100 MG/DL [facility] Performing Organization Address City/[facility]/Zipcode Phone Number MAIN LAB [address] [place] [address] * POC GLUCOSE (07/02/2018 12:05 AM) Glucose, POC 155 (H) 70 - 100 MG/DL MAIN LAB Performing Organization Address City/[facility]/Zipcode Phone Number MAIN LAB [address] [place] [address] * POC GLUCOSE (07/01/2018 11:03 PM) Glucose, POC 128 (H) 70 - 100 MG/DL MAIN LAB Performing Organization Address City/[facility] Phone Number [facility] [address] [place] [address] * POC GLUCOSE (07/01/2018 10:07 PM) Glucose, POC 208 (H) 70 - 100 MG/DL [facility] Performing Organization Address City/[facility] Phone Number [facility] LAB [address] [place] [address] * POC GLUCOSE (07/01/2018 9:18 PM) Glucose, POC 184 (H) 70 - 100 MG/DL MAIN LAB Performing Organization Address City/[facility]/Zipcode Phone Number MAIN LAB [address] [place] [address] * MRI HEAD WO CONTRAST (07/01/2018 9:10 [...] the posterior medial left temporal lobe. 3. Presybeterian of flow void within the right M1 [...] changes. Major vascular flow voids of the rampart of Tse and dural venous sinuses are preserved. There is yarsani of flow void in the right M1 [...] changes. Major vascular flow voids of the rampart of Tse and dural venous sinuses are preserved. There is yarsani of flow void in the right M1 [...] the posterior medial left temporal lobe. 3. Presybeterian of flow void within the right M1 segment, previously noted to be occluded. Performing Organization Address City/[facility] Phone Number RAD RESULTS * POC GLUCOSE (07/01/2018 8:07 PM) Glucose, POC 184 (H) 70 - 100 MG/DL [facility] Performing Organization Address [facility] Phone Number [place] [facility] [address] [place] [address] * POC GLUCOSE (07/01/2018 6:59 PM) Glucose, POC 190 (H) 70 - 100 MG/DL [facility] Performing Organization Address [facility] Phone Number [place] [facility] [address] [place] [address] * POC GLUCOSE (07/01/2018 6:03 PM) Glucose, POC 169 (H) 70 - 100 MG/DL [facility] Performing Organization Address [facility] Phone Number [place] [facility] [address] [place] [address] * POC GLUCOSE (07/01/2018 5:10 PM) Glucose, POC 154 (H) 70 - 100 MG/DL [facility] Performing Organization Address [facility] Phone Number [place] [facility] [address] [place] [address] * POC GLUCOSE (07/01/2018 4:04 PM) Glucose, POC 195 (H) 70 - 100 MG/DL [facility] Performing Organization Address City/[facility] Phone Number MAIN LAB [address] [place] [address] * BLOOD GASES, ARTERIAL (07/01/2018 3:06 PM) pH-Arterial 7.34 (L) 7.35 - 7.45 [facility] pCO2-Arterial 39 35 - 45 MMHG [facility] pO2-Arterial 102 (H) 80 - 100 MMHG [facility] Base Deficit-Arterial 4.6 MMOL/L [facility] O2 Sat-Arterial 97.5 95 - 99 % [facility] [id number]-Nfp 20.6 (L) 21 - 28 MMOL/L [facility] Specimen Blood, arterial - Blood Performing Organization Address [facility] Phone Number [facility] [address] [place] [address] * POC GLUCOSE (07/01/2018 3:05 PM) Glucose, POC 195 (H) 70 - 100 MG/DL [facility] Performing Organization Address [facility] [place] [place] Phone Number [facility] [address] [place] [address] * CT HEAD WO CONTRAST (07/01/2018 2:46 [...] 72.37 % OTHER OUTSIDE LAB AV index ([place]) 0.56 OTHER OUTSIDE LAB E/A ratio 1.35 OTHER OUTSIDE LAB E/E' ratio 10.67 OTHER OUTSIDE LAB CV ECHO PV CUPOLA CHARGER INSULATION Yasir RN OTHER OUTSIDE LAB LV mass 118.49 96 - 200 g OTHER OUTSIDE LAB RWT 0.36 <=0.42 OTHER OUTSIDE LAB TV rest pulmonary artery 22 mmHg OTHER OUTSIDE LAB pressure Right Heart Systolic TDI 0.110 m/s OTHER OUTSIDE LAB S' Cardiology Ultrasound Siemens [id number] OTHER OUTSIDE LAB Machine ECHO EF 60 [...] City/State/Zipcode Phone Number [facility] [address] [place] [address] * POC GLUCOSE (07/01/2018 1:02 PM) Glucose, POC 169 (H) 70 - 100 MG/DL [facility] Performing Organization Address [facility]/Zipcode Phone Number [facility] [address] [place] [address] * UA REFLEX CULTURE LABEL (07/01/2018 12:53 PM) UA Reflex Culture LAB LABEL [facility] Specimen Urine Performing Organization Address [facility] Phone Number [facility] [address] [place] [address] * URINALYSIS MICROSCOPIC REFLEX TO CULTURE (07/01/2018 [...] MAIN LAB Specimen Urine Performing Organization Address [facility] Phone Number [facility] [address] [place] [address] * URINALYSIS DIPSTICK REFLEX TO CULTURE (07/01/2018 12:53 PM) Color,UA STRAW [facility] Turbidity,UA CLEAR CLEAR-CLEAR [facility] Specific [place]-Urine 1.018 1.003 - 1.035 [facility] [...] Performing Organization Address City/[facility] Phone Number [facility] [address] [place] [address] * LACTIC ACID(LACTATE) (07/01/2018 12:50 PM) Lactic Acid 1.5 0.5 - 2.0 MMOL/L [facility] Performing Organization Address [facility] Phone Number [facility] [address] [place] [id number] * BETA HYDROXYBUTYRATE (KETONES) (07/01/2018 12:50 PM) Beta Hydroxybutyrate 0.1 <0.3 MMOL/L [facility] Comment: Beta hydroxybutyrate (BOHB) is the most abundant ketone (78%), followed by acetoacetate (20%) and acetone (2%).Measurement BOHB is recommended to assess ketones in DKA. Expected BOHB Results for DKA: Initial presentation high/increasing During treatment decreasing Resolved decreasing/normal Performing Organization Address [facility] Phone Number MAIN LAB [address] [place] [address] * LACTIC ACID (BG - RAPID LACTATE) (07/01/2018 12:50 PM) Lactic Acid,BG 1.5 0.5 - 2.0 MMOL/L [facility] Specimen Blood Performing Organization Address [facility] [place] [place] Phone Number [facility] [address] [place] [address] * CBC AND DIFF (07/01/2018 12:50 PM) [...] LAB Specimen Blood Performing Organization Address [facility] Phone Number [facility] [address] [place] [address] * IONIZED CALCIUM (07/01/2018 12:50 PM) Ionized Calcium 1.14 1.0 - 1.3 MMOL/L [facility] Specimen Blood Performing Organization Address [facility] [place] [place] Phone Number [facility] [address] [place] [address] * PHOSPHORUS (07/01/2018 12:50 PM) Phosphorus 2.6 2.0 - 4.0 MG/DL [facility] Specimen Blood Performing Organization Address [facility] [place] [place] Phone Number MAIN LAB [address] [place] [address] * MAGNESIUM (07/01/2018 12:50 PM) Magnesium 2.0 1.6 - 2.6 mg/dL [facility] Specimen Blood Performing Organization Address [facility] [place] [place] Phone Number [facility] [address] [place] [address] * LIPID PROFILE (07/01/2018 12:50 PM) Cholesterol [...] mg/dL. Specimen Blood Performing Organization Address [facility] Phone Number MAIN LAB [address] [place] [address] * COMPREHENSIVE METABOLIC PANEL (07/01/2018 12:50 PM) [...] Performing Organization Address City/[facility]/Zipcode Phone Number MAIN LAB [address] [place] [address] * HEMOGLOBIN A1C (07/01/2018 12:50 PM) Hemoglobin A1C 17.4 (H) 4.0 - 6.0 % [facility] Comment: The ADA recommends that most patients with type 1 and type 2 diabetes maintain an A1c level <7%. Specimen Blood Performing Organization Address City/[facility]/Zipcode Phone Number MAIN LAB [address] [place] [address] * IR ARTERIOGRAM NEURO (07/01/2018 12:29 PM) [...] Fentanyl 25 mcg Contrast - 100 cc [id number] Total mGy - 421 Anesthesia:conscious sedation Consent [...] the sheath was advanced over a 5 Burmese 125 cm Vert catheter over a 180 cm 0.035 [place] wire over the aortic arch and into [...] therefore, hemostasis was achieved using an 8 Burmese Angioseal closure device followed by manual pressure [...] Fentanyl 25 mcg Contrast - 100 cc [id number] Total mGy - 421 Anesthesia: conscious sedation [...] the sheath was advanced over a 5 Burmese 125 cm Vert catheter over a 180 cm 0.035 [place] wire over the aortic arch and into [...] therefore, hemostasis was achieved using an 8 Burmese Angioseal closure device followed by manual pressure [...] 11:51 AM on 07/01/2018 by the resident assistant in consultation with TALIA BOSTON M.D.. Approved [...] 11:51 AM on 07/01 by the resident assistant in consultation with TALIA BOSTON M.D.. Approved [...] 11:51 AM on 07/01/2018 by the resident assistant in consultation with TALIA BOSTON M.D.. Approved [...] 11:51 AM on 07/01 by the resident assistant in consultation with TALIA BOSTON M.D.. Approved [...] 11:51 AM on 07/01/2018 by the resident assistant in consultation with TALIA BOSTON M.D.. Approved [...] 11:51 AM on 07/01 by the resident assistant in consultation with TALIA BOSTON M.D.. Approved [...] 0649, Until Padma 07/09/18 at 1756, Constipation NV, Hold for loose stools heparin (porcine) PF [...]
--- OUTSIDE RECORDS SUMMARY | 2018-08-23 12:10 | XMS REPORT | Encounter Summary ---
Author Author [facility] Organization [facility] Address Unknown Phone Unavailable Care Team Providers Care Loading Unit Operator Seating Name Role Phone Damien Caceres MD Unavailable Melo Adame MD Unavailable Unavailable Alvarez Ozuna NP PCP Hilary Davenport RN Unavailable Unavailable Encounter Details Date Type Department Care Team Description 07/01/2018 Procedure Pass [id number] [place] [address] Social History Tobacco Use Types Packs/Day Years Used Date Former Smoker Cigars 2 20 Quit: 10/20/2011 Smokeless Tobacco: Never Used Alcohol Use Drinks/Week oz/Week Comments No Sex Assigned at Date Recorded Not on file as of this encounter Plan of Treatment Not on fileas of this encounter Visit Diagnoses Not on filein this encounter
--- OUTSIDE RECORDS SUMMARY | 2018-08-23 12:10 | XMS REPORT | Encounter Summary ---
Author Author [facility] Organization [facility] Address Unknown Phone Unavailable Care Team Providers Care City Marshal Name Role Phone Damien Caceres MD Unavailable Melo Adame MD Unavailable Unavailable Alvarez Ozuna NP PCP Hilary Davenport RN Unavailable Unavailable Encounter Details Date Type Department Care Team Description 07/01/2018 Procedure Pass [id number] [place] [address] Social History Tobacco Use Types Packs/Day Years Used Date Former Smoker Cigars 2 20 Quit: 10/20/2011 Smokeless Tobacco: Never Used Alcohol Use Drinks/Week oz/Week Comments No Sex Assigned at Date Recorded Not on file as of this encounter Plan of Treatment Not on fileas of this encounter Visit Diagnoses Not on filein this encounter
--- OUTSIDE RECORDS SUMMARY | 2018-08-23 12:10 | XMS REPORT | Encounter Summary ---
Author Author [facility] Organization [facility] Address Unknown Phone Unavailable Care Team Providers Care Java Grails Developer Name Role Phone Damien Caceres MD Unavailable Melo Adame MD Unavailable Unavailable Alvarez Ozuna NP PCP Hilary Davenport RN Unavailable Unavailable Encounter Details Date Type Department Care Team Description 07/01/2018 Procedure Pass [id number] [place] [address] Social History Tobacco Use Types Packs/Day Years Used Date Former Smoker Cigars 2 20 Quit: 10/20/2011 Smokeless Tobacco: Never Used Alcohol Use Drinks/Week oz/Week Comments No Sex Assigned at Date Recorded Not on file as of this encounter Plan of Treatment Not on fileas of this encounter Visit Diagnoses Not on filein this encounter
--- OUTSIDE RECORDS SUMMARY | 2018-08-23 12:10 | XMS REPORT | Encounter Summary ---
Author Author [facility] Organization [facility] Address Unknown Phone Unavailable Care Team Providers Care Building Engineer Name Role Phone Damien Caceres MD Unavailable Melo Adame MD Unavailable Unavailable Alvarez Ozuna NP PCP Hilary Davenport RN Unavailable Unavailable Encounter Details Date Type Department Care Team Description 07/01/2018 Procedure Pass [id number] [place] [address] Social History Tobacco Use Types Packs/Day Years Used Date Former Smoker Cigars 2 20 Quit: 10/20/2011 Smokeless Tobacco: Never Used Alcohol Use Drinks/Week oz/Week Comments No Sex Assigned at Date Recorded Not on file as of this encounter Plan of Treatment Not on fileas of this encounter Visit Diagnoses Not on filein this encounter
--- OUTSIDE RECORDS SUMMARY | 2018-08-23 12:10 | XMS REPORT | Encounter Summary ---
Author Author [facility] Organization [facility] Address Unknown Phone Unavailable Care Team Providers Care Bed Teacher Name Role Phone Damien Caceres MD Unavailable Melo Adame MD Unavailable Unavailable Alvarez Ozuna NP PCP Hilary Davenport RN Unavailable Unavailable Encounter Details Date Type Department Care Team Description 07/01/2018 Procedure Pass [id number] [place] [address] Social History Tobacco Use Types Packs/Day Years Used Date Former Smoker Cigars 2 20 Quit: 10/20/2011 Smokeless Tobacco: Never Used Alcohol Use Drinks/Week oz/Week Comments No Sex Assigned at Date Recorded Not on file as of this encounter Plan of Treatment Not on fileas of this encounter Visit Diagnoses Not on filein this encounter
[2018-08-23] MEDS ORDERED: NS IV 1000 ML 1,000 ML IV ONE ×2 (13:16→14:11)
[2018-08-23 13:26] LABS: BASOPHILS % (AUTO) 0 % (0-10); EOSINOPHILS % (AUTO) 0 % (0-10); HEMATOCRIT 32 % (40-54); HEMOGLOBIN 10.7 G/DL (13.3-17.7); LYMPHOCYTES # (AUTO) 1.3 X 10^3 (1.0-4.0); LYMPHOCYTES % (AUTO) 10 % (12-44); MEAN CORPUSCULAR HEMOGLOBIN 28 PG (25-34); MEAN CORPUSCULAR HGB CONC 33 G/DL (32-36); MEAN CORPUSCULAR VOLUME 84 FL (80-99); MEAN PLATELET VOLUME 11.5 FL (7.4-10.4); MONOCYTES # (AUTO) 0.3 X 10^3 (0.0-1.0); MONOCYTES % (AUTO) 2 % (0-12); NEUTROPHILS # (AUTO) 11.1 X 10^3 (1.8-7.8); NEUTROPHILS % (AUTO) 87 % (42-75); PLATELET COUNT 373 10^3/uL (130-400); RED BLOOD COUNT 3.84 10^6/uL (4.35-5.85); RED CELL DISTRIBUTION WIDTH 13.9 % (10.0-14.5); WHITE BLOOD COUNT 12.7 10^3/uL (4.3-11.0)
[2018-08-23] MEDS ORDERED: ONDANSETRON 4 MG/2 ML (SDV) Z0FRAN IVP ONE (13:30)
[2018-08-23] MEDS ORDERED: fentaNYL INJECTION 100 MCG/2 ML AMP IVP ONE (13:30)
[2018-08-23] MEDS ORDERED: FAMOTIDINE 20MG/2ML IV (PEPCID) IVP ONE (13:30)
[2018-08-23 13:40] LABS: OCCULT BLOOD,GASTRIC FLUID POSITIVE (NEGATIVE)
--- NOTE | 2018-08-23 13:44 | ED Abdominal Pain ---
General Chief Complaint: Abdominal/GI Problems Stated Complaint: VOMITING Nursing Triage Note: TO ED C/O VOMITING WAS SEEN LAST NIGHT IN ED AND DISCHARGED. BACK TO DAY WITH SAME C/O WAS OBSERVED TAKEING SELF OUT OF W/C AND LYING ON FLOOR ON ADMIT TO ROOM YELLING AND MOANING. Sepsis Screen: No Definite Risk Source of Information: Patient, Family, Old Records Exam Limitations: No Limitations History of Present Illness Date Seen by Provider: Aug 23, 2018 Time Seen by Provider: 13:15 Initial Comments This 58-year-old man presents to the emergency room with complaints of upper abdominal pain, chest pain, nausea, and vomiting. He was seen in this ER last night and treated for urinary tract infection with a prescription for Macrobid. He was also hydrated with IV fluids and given insulin for hyperglycemia. His suprapubic catheter was changed as well. His catheter is draining fairly clear fluid. He reports positive bowel movements and had a normal bowel movement today. He is moaning and groaning in pain and with nausea. He has dark brown appearing emesis in a basin on assessment. He was markedly hypertensive on initial assessment. Allergies and Home Medications Allergies Coded Allergies: No Known Drug Allergies (Unverified , 06/29/18) Home Medications Atorvastatin Calcium 80 Mg Tablet, 40 MG PO HS, (Reported) TAKES 1/2 (80MG) TABLET Bupropion HCl 75 Mg Tablet, 75 MG PO BID, (Reported) Cefdinir 300 Mg Capsule, 300 MG PO BID Prescribed by: HATTIE BUSH on 07/30/182055 Cholecalciferol (Vitamin D3) 1,000 Unit Capsule, 1,000 UNIT PO DAILY, (Reported) Cyanocobalamin (Vitamin B-12) 1,000 Mcg Tablet, 2,000 MCG PO DAILY, (Reported) Duloxetine HCl 30 Mg Capsule.dr, 90 MG PO DAILY, (Reported) TAKES 3 (30MG) CAPSULES Ferrous Sulfate 324 Mg Tablet.dr, 324 MG PO TID, (Reported) Folic Acid 1 Mg Tablet, 1 MG PO DAILY, (Reported) Insulin Aspart 300 Units/3 Ml Solution, 25 UNITS SQ AC, (Reported) Insulin Determir 1,000 Units/10 Ml Soln, 25 UNITS SQ HS, (Reported) Levofloxacin 500 Mg Tablet, 500 MG PO DAILY, (Reported) Loperamide HCl 2 Mg Capsule, 2 MG PO UD PRN for DIARRHEA, (Reported) Metformin HCl 500 Mg Tablet, 500 MG PO BID, (Reported) Metoprolol Tartrate 50 Mg Tablet, 25 MG PO BID, (Reported) TAKES 1/2 (50MG) TABLETS Mirtazapine 15 Mg Tablet, 15 MG PO HS, (Reported) Nitrofurantoin Macrocrystal 100 Mg Capsule, 100 MG PO BID Prescribed by: DC LAGUNA on 08/22/182039 Nitrofurantoin Monohyd/M-Cryst 100 Mg Capsule, 1 TAB PO BID Prescribed by: ALISE AVELAR on 08/01/18 08 Ondansetron 4 Mg Tab.rapdis, 4 MG SL Q4H PRN for NAUSEA/VOMITING-1ST LINE Prescribed by: ALISE AVELAR on 08/01/18850 Pantoprazole Sodium 20 Mg Tablet.dr, 20 MG PO BID, (Reported) Pregabalin 100 Mg Capsule, 100 MG PO TID, (Reported) Sulfamethoxazole/Trimethoprim 1 Each Tablet, 1 EACH PO BID Prescribed by: DAJUAN GREY on 08/08/182119 Urea 85 Gm Cream..g., TP BID PRN for DRY FEET, (Reported) Patient Home Medication List Home Medication List Reviewed: Yes Review of Systems Review of Systems Constitutional: no symptoms reported EENTM: No Symptoms Reported Respiratory: No Symptoms Reported Cardiovascular: See HPI Gastrointestinal: See HPI Genitourinary: See HPI Musculoskeletal: no symptoms reported Skin: no symptoms reported Psychiatric/Neurological: Other (deficits from prior stroke) Endocrine: See HPI Hematologic/Lymphatic: No Symptoms Reported Past Owefyzk-Hycaii-Riwejl Hx Past Med/Social Hx: Reviewed and Corrections made Patient Social History Alcohol Use: Denies Use Recreational Drug Use: No Type Used: Cigarettes Former Smoker, Quit: Oct 20, 2014 2nd Hand Smoke Exposure: No Recent Foreign Travel: No Contact w/Someone Who Travel: No Recent Infectious Disease Expo: No Recent Hopitalizations: No Immunizations Up To Date Tetanus Booster (TDap): Less than 5yrs PED Vaccines UTD: No Date of Pneumonia Vaccine: Jul 17, 2015 Date of Influenza Vaccine: Jul 17, 2015 Seasonal Allergies Seasonal Allergies: No Past Medical History Surgeries: Yes (HEART CATH/ JAW SURGERY) Bladder Surgery (suprapubic catheter), Cardiac, Prostatectomy Respiratory: No (fmr jaxon) Currently Using CPAP: No Currently Using BIPAP: No Cardiac: Yes (heart cath) Atrial Fibrillation, High Cholesterol, Hypertension Neurological: Yes Neuropathy, Stroke Reproductive Disorders: No Sexually Transmitted Disease: No HIV/AIDS: No Genitourinary: Yes (suprapubic catheter) Prostate Problems Gastrointestinal: Yes Chronic Diarrhea, C-Diff Musculoskeletal: Yes (CHRONIC NECK AND BACK PAIN ) Arthritis, Chronic Back Pain Endocrine: Yes Diabetes, Insulin dep HEENT: No Glaucoma Loss of Vision: Right Cancer: Yes Prostate Did You Recieve Any Treatments: Yes What Type of Treatment Did You: Surgical Intervention Psychosocial: Yes Anxiety, Depression Integumentary: No Blood Disorders: No Adverse Reaction/Blood Tranf: No Family Medical History Reviewed Nursing Family Hx Family history: Hypertension 03 FATHER, Onset:40's - 50 03 MOTHER, Onset:40's - 50 History of - respiratory disease 03 MOTHER, Onset:50's - 60 Myocardial infarction 03 FATHER 03 MOTHER No Family History of: Abdominal aortic aneurysm Craig's disease Alcoholism Aphasia Cancer Cancer of colon Cataract Chest pain Congenital heart disease Congestive heart failure Cystic fibrosis Dementia Dysphagia Family history: Allergy Family history: Alzheimer's disease Family history: Arthritis Family history: Asthma Family history: Breast disease Family history: Cardiovascular disease Family history: Coronary thrombosis Family history: Diabetes mellitus Family history: Gastrointestinal disease Family history: Glaucoma Family history: Osteoporosis Family history: Thyroid disorder Headache Hearing loss Heart disease Hereditary disease History of - anemia History of - disorder History of drug abuse Human immunodeficiency virus (HIV) seropositivity Hypercholesterolemia Infertile Kidney disease Malignant neoplasm of lung Parkinson's disease Prostate cancer Psychotic disorder Seizure disorder Stroke Tuberculosis Visual impairment No Pertinent Family Hx, Heart Disease, Hypertension Physical Exam Vital Signs Vital Signs - First Documented 08/23/18 12:27 Temp 96.1 Pulse 87 Resp 18 B/P (MAP) 216/92 (133) Pulse Ox 100 Capillary Refill : Less Than 3 Seconds Height/Weight/BMI Height: 5'6.00" Weight: 134lbs. 5.0oz. 60.443860nl; 23.5 BMI Method:Stated General Appearance: WD/WN, moderate distress HEENT: PERRL/EOMI, normal ENT inspection Neck: normal inspection Respiratory: lungs clear, normal breath sounds, no respiratory distress, no accessory muscle use Cardiovascular: regular rate, rhythm, no edema, no murmur Gastrointestinal: soft, abnormal bowel sounds (decreased), tenderness (upper abdomen) Extremities: normal inspection, no pedal edema Neurologic/Psychiatric: flux tube attendant II-XII nml as tested, no motor/sensory deficits, alert, normal mood/affect, oriented x 3 Skin: normal color, warm/dry Progress/Results/Core Measures Results/Orders Lab Results Laboratory Tests Test 08/23/18 13:01 08/23/18 13:28 08/23/18 13:35 08/23/18 15:01 Range/Units White Blood Count 12.7 H 4.3-11.0 10^3/uL Red Blood Count 3.84 L 4.35-5.85 10^6/uL Hemoglobin 10.7 L 13.3-17.7 G/DL Hematocrit 32 L 40-54 % Mean Corpuscular Volume 84 80-99 FL Mean Corpuscular Hemoglobin 28 25-34 PG Mean Corpuscular Hemoglobin Concent 33 32-36 G/DL Red Cell Distribution Width 13.9 10.0-14.5 % Platelet Count 373 130-400 10^3/uL Mean Platelet Volume 11.5 H 7.4-10.4 FL Neutrophils (%) (Auto) 87 H 42-75 % Lymphocytes (%) (Auto) 10 L 12-44 % Monocytes (%) (Auto) 2 0-12 % Eosinophils (%) (Auto) 0 0-10 % Basophils (%) (Auto) 0 0-10 % Neutrophils # (Auto) 11.1 H 1.8-7.8 X 10^3 Lymphocytes # (Auto) 1.3 1.0-4.0 X 10^3 Monocytes # (Auto) 0.3 0.0-1.0 X 10^3 Eosinophils # (Auto) 0.0 0.0-0.3 10^3/uL Basophils # (Auto) 0.0 0.0-0.1 10^3/uL Neutrophils % (Manual) 92 % Lymphocytes % (Manual) 4 % Monocytes % (Manual) 2 % Band Neutrophils 2 % Hypersegmented Neutrophils MODERATE Toxic Granulation 1+ Blood Morphology Comment NORMAL Sodium Level 136 135-145 MMOL/L Potassium Level 4.2 3.6-5.0 MMOL/L Chloride Level 96 L 98-107 MMOL/L Carbon Dioxide Level 13 L 21-32 MMOL/L Anion Gap 27 H 5-14 MMOL/L Blood Urea Nitrogen 18 7-18 MG/DL Creatinine 1.55 H 0.60-1.30 MG/DL Estimat Glomerular Filtration Rate 46 BUN/Creatinine Ratio 12 Glucose Level 491 *H 70-105 MG/DL Calcium Level 10.9 H 8.5-10.1 MG/DL Corrected Calcium 10.7 H 8.5-10.1 MG/DL Total Bilirubin 1.1 H 0.1-1.0 MG/DL Aspartate Amino Transf (AST/SGOT) 22 5-34 U/L Alanine Aminotransferase (ALT/SGPT) 17 0-55 U/L Alkaline Phosphatase 143 H 40-136 U/L Troponin I < 0.30 <0.30 NG/ML Total Protein 7.7 6.4-8.2 GM/DL Albumin 4.3 3.2-4.5 GM/DL Lipase 23 8-78 U/L Gastric Fluid Occult Blood POSITIVE H NEGATIVE Urine Color YELLOW Urine Clarity CLEAR Urine pH 5 5-9 Urine Specific [place] 1.010 L 1.016-1.022 Urine Protein 3+ H NEGATIVE Urine Glucose (UA) 4+ H NEGATIVE Urine Ketones 4+ H NEGATIVE Urine Nitrite NEGATIVE NEGATIVE Urine Bilirubin NEGATIVE NEGATIVE Urine Urobilinogen NORMAL NORMAL MG/DL Urine Leukocyte Esterase 1+ H NEGATIVE Urine RBC (Auto) 3+ H NEGATIVE Urine RBC 0-2 /HPF Urine WBC 25-50 H /HPF Urine Crystals NONE /LPF Urine Bacteria MODERATE H /HPF Urine Casts NONE /LPF Urine Mucus NEGATIVE /LPF Urine Culture Indicated YES Glucometer 412 *H 70-110 MG/DL My Orders Orders - ALISE FOX MD Cbc With Automated Diff (08/23/18 13:16) Comprehensive Metabolic Panel (08/23/18 13:16) Lipase (08/23/18 13:16) Saline Lock/Iv-Start (08/23/18 13:16) Ns Iv 1000 Ml (Sodium Chloride 0.9%) (08/23/18 13:16) Ondansetron Injection (Zofran Injectio (08/23/18 13:30) Fentanyl Injection (Sublimaze Injection (08/23/18 13:30) Famotidine Injection (Pepcid Injection) (08/23/18 13:30) Occult Blood,Gastric Fluid (08/23/18 13:22) Troponin I (08/23/18 13:24) Ekg Tracing (08/23/18 13:24) Manual Differential (08/23/18 13:01) Pantoprazole Injection (Protonix Injecti (08/23/18 14:00) Ekg Tracing (08/23/18 13:48) Ua Culture If Indicated (08/23/18 13:56) Ct Chest/Abdomen/Pelvis Wo (08/23/18 13:59) Insulin (Regular) Human (Humulin R (Per (08/23/18 14:15) Promethazine Injection (Phenergan Injec (08/23/18 14:15) Ns Iv 1000 Ml (Sodium Chloride 0.9%) (08/23/18 14:11) Urine Culture (08/23/18 13:35) Accucheck Stat ONCE (08/23/18 14:44) Cefepime Injection (Maxipime Injection) (08/23/18 15:15) Medications Given in ED Current Medications Medications Dose Ordered Sig/Anitra Route Start Time Stop Time Status Last Admin Dose Admin Famotidine 20 mg ONCE ONCE IVP 08/23/18 13:30 08/23/18 13:31 DC 08/23/18 13:43 20 MG Fentanyl Citrate 75 mcg ONCE ONCE IVP 08/23/18 13:30 08/23/18 13:31 DC 08/23/18 13:45 75 MCG Insulin Human Regular 5 unit ONCE ONCE SC 08/23/18 14:15 08/23/18 14:16 DC 08/23/18 14:17 5 UNIT Ondansetron HCl 8 mg ONCE ONCE IVP 08/23/18 13:30 08/23/18 13:31 DC 08/23/18 13:43 8 MG Pantoprazole 40 mg ONCE ONCE IV 08/23/18 14:00 08/23/18 14:01 DC 08/23/18 13:58 40 MG Promethazine HCl 25 mg ONCE ONCE IVP 08/23/18 14:15 08/23/18 14:16 DC 08/23/18 14:16 25 MG Sodium Chloride 1,000 ml @ 0 mls/hr Q0M ONCE IV 08/23/18 13:16 08/23/18 13:18 DC 08/23/18 13:45 1,000 MLS/HR Sodium Chloride 1,000 ml @ 0 mls/hr Q0M ONCE IV 08/23/18 14:11 08/23/18 14:12 DC 08/23/18 14:39 1,000 MLS/HR Vital Signs/I&O 08/23/18 12:27 Temp 96.1 Pulse 87 Resp 18 B/P (MAP) 216/92 (133) Pulse Ox 100 Blood Pressure Mean: 133 Progress Progress Note #1: Time: 13:37 Progress Note Patient was seen and examined. He will be treated with Zofran, Pepcid, fentanyl , and IV fluids. Labs are pending. UA is pending. Emesis is being sent for gastric Hemoccult. Progress Note #2: Time: 14:00 Progress Note Patient has had some improvement in pain with fentanyl. He has stopped vomiting after Zofran. On reexamination palpation of the abdomen produces pain everywhere, especially in the epigastric region. Gastric Hemoccult was positive. He is exquisitely tender and has some guarding even after fentanyl. Creatinine is elevated. CT of the chest, abdomen and pelvis will be ordered without contrast. He is presently receiving IV fluids. Progress Note #3: Time: 15:23 Progress Note Patient's blood sugars gradually trending down. Patient received a total of 2 L of normal saline and 5 units of insulin in the ER. Urine continues to demonstrate urinary tract infection. Based on prior cultures, cefepime and ampicillin have been selected. Cefepime is being initiated in the ER. We will continue Protonix. Since his stomach seems full on CT scan despite vomiting and bowels are collapsed, gastroparesis is a possibility. Case was reviewed with Dr. Hamilton. Dr. Hamilton would like Reglan scheduled every 6 hours. We will add Zofran for breakthrough nausea. Dr. Martínez like the home insulin regimen continued. According to his that his Levemir 30 units at bedtime and Levemir 10 units in the morning. He also receives NovoLog 25 units with meals. EKG : EKG Time: 13:33 Rate: 72 Rhythm: Normal Sinus Comment Sinus rhythm with no ST elevation or depression. Significant artifact on this study affecting interpretation. Departure Communication (Admissions) Time/Spoke to Admitting Phy: 15:05 Dr. Hamilton Impression Primary Impression: Upper abdominal pain Additional Impressions: Hematemesis Qualified Codes: K92.0 - Hematemesis Nausea and vomiting Qualified Codes: R11.2 - Nausea with vomiting, unspecified Urinary tract infection Qualified Codes: T83.510D - Infection and inflammatory reaction due to cystostomy catheter, subsequent encounter; N39.0 - Urinary tract infection, site not specified Hyperglycemia Metabolic acidosis Acute renal insufficiency Disposition: ADMITTED INPATIENT Condition: Improved Admissions Decision to Admit Reason: Admit from ER (General) Decision to Admit/Date: Aug 23, 2018 Time/Decision to Admit Time: 14:00 Departure-Patient Inst. Referrals: NO,LOCAL PHYSICIAN (PCP) Primary Care Physician LULU FLOWERS (Family) Primary Care Physician ALISE FOX MD Aug 23, 2018 13:44
[2018-08-23 13:48] LABS: ALBUMIN 4.3 GM/DL (3.2-4.5); BILIRUBIN,TOTAL 1.1 MG/DL (0.1-1.0); CALCIUM 10.9 MG/DL (8.5-10.1); CREATININE SERUM 1.55 MG/DL (0.60-1.30); POTASSIUM 4.2 MMOL/L (3.6-5.0); TOTAL PROTEIN 7.7 GM/DL (6.4-8.2)
[2018-08-23] MEDS ORDERED: PANTOPRAZOLE 40 MG (PROTONIX) VIAL IV ONE (14:00)
[2018-08-23 14:02] LABS: BAND NEUTROPHILS 2 %; HYPERSEGMENTED NEUT MODERATE; LYMPHOCYTES % (MANUAL) 4 %; MONOCYTES % (MANUAL) 2 %; NEUTROPHILS % (MANUAL) 92 %
[2018-08-23 14:03] LABS: RBC MORPH NORMAL; TOXIC GRANULATION/VACUOLAZATIO 1+
[2018-08-23 14:06] LABS: BILIRUBIN,URINE NEGATIVE (NEGATIVE); CLARITY,URINE CLEAR; COLOR,URINE YELLOW; GLUCOSE, URINE (UA) 4+ (NEGATIVE); KETONES,URINE 4+ (NEGATIVE); LEUKOCYTE ESTERASE ,URINE 1+ (NEGATIVE); NITRITE,URINE NEGATIVE (NEGATIVE); PH,URINE 5 (5-9); PROTEIN,URINE 3+ (NEGATIVE); UROBILINOGEN,URINE NORMAL (NORMAL)
[2018-08-23] MEDS ORDERED: PROMETHAZINE INJ 25 MG/ML (PHENERGAN) AMP IVP ONE (14:15)
[2018-08-23] MEDS ORDERED: inSUlin (REGULAR) HUMAN 1 UNIT/0.01 ML (CHARGE PER UNIT) SC ONE (14:15)
[2018-08-23 14:22] LABS: RBC,URINE 0-2 /HPF; WBC,URINE 25-50 /HPF
[2018-08-23 14:23] LABS: BACTERIA,URINE MODERATE /HPF
--- NOTE | 2018-08-23 14:29 | Diagnostic Imaging Report ---
PROCEDURE: CT chest, abdomen, and pelvis without contrast. TECHNIQUE: Multiple contiguous axial images were obtained through the chest, abdomen, and pelvis without the use of intravenous contrast. INDICATION: Epigastric pain with nausea and vomiting. FINDINGS: There are no discrete pulmonary nodules, masses or infiltrates. There is no pleural or pericardial fluid. There is no pneumothorax. Heart size is normal. There is no pathologically enlarged adenopathy in the chest. There are coronary artery calcifications. There is a hiatal hernia. The liver is normal in size without focal lesions. Gallbladder is unremarkable. There is no biliary ductal dilatation. The spleen is normal. The pancreas and adrenal glands are unremarkable. There is chronic-appearing inflammatory changes about both kidneys. There is atherosclerotic calcification of the aorta which is nonaneurysmal. Bowel gas pattern is nonspecific. There is no free air. No ascites. Suprapubic catheter is in place. There are postsurgical changes of a prostatectomy. There are degenerative changes in the lumbar spine. IMPRESSION: No acute abnormality in the chest. Small hiatal hernia Chronic inflammatory changes about both kidneys. Suprapubic catheter in the bladder. No other acute abnormality in the chest, abdomen or pelvis. Dictated by: Dictated on workstation # [id number]
[2018-08-23] MEDS ORDERED: CEFEPIME INJECTION 2,000 MG in NS (IVPB) 50 ML IV ONE (15:15)
--- OUTSIDE RECORDS SUMMARY | 2018-08-23 15:46 | XMS REPORT | Clinical Summary ---
Author Author [facility] Organization [facility] Address Unknown Phone Unavailable Care Team Providers Care Body Bumper Name Role Phone Damien Caceres MD Unavailable Melo Adame MD Unavailable Unavailable Lulu Ozuna NP PCP Hilary Davenport RN Unavailable Unavailable Source Comments Some departments are not documenting in the electronic medical record. If you do not see the information that you expected, contact Release of Information in the Health Information Management department at [phone] for further assistance in locating additional records.[facility] Allergies No Known Allergies Current [...] Problem Noted Date Diabetic ketoacidosis without coma ([facility]) 07/13/2018 Acute blood loss anemia 07/13/2018 Leukocytosis 07/13/2018 Normocytic anemia 07/13/2018 Overweight (BMI 25.0-29.9) 07/13/2018 Urinary retention 07/13/2018 Anemia of chronic disease 07/03/2018 Agitation 07/03/2018 Stroke ([facility]) 07/01/2018 Overview: R M1 occlusion, successful thrombectomy on 07/01/18 (TICI 3) HTN (hypertension) 01/15/2016 Urinary retention with incomplete bladder emptying 01/15/2016 Diabetes ([facility]) 01/15/2016 Proliferative diabetic retinopathy(362.02) 01/14/2013 Last [...] Problems Problem Noted Date Resolved Date Sepsis ([facility]) 01/15/2016 01/17/2016 Severe sepsis ([facility]) 01/15/2016 01/17/2016 LATISHA (acute kidney injury) ([facility]) 01/15/2016 01/17/2016 High anion gap metabolic acidosis 01/15/2016 01/17/2016 Encounters Date Type Specialty Care Team Description 07/08/2018 Anesthesia Hannah Arias, AUDIENCE DEVELOPMENT MANAGER Event 07/08/2018 Procedure Pass 07/08/2018 Surgery Huang Carolina MD ESOPHAGOGASTRODUODENOSCOP Y 07/01/2018 Hospital Diego Gutierrez MD Stroke ([facility]) - Encounter Shanna Ward MD 07/09/2018 [...] 07/08/2028 07/08/2018 SCREENING Implants Implanted Type Area Industrial Safety And Health Technician Device Expiration Model / Identifier Date Serial / Lot Device Closure 70cm 8fr .038in Right: TERUMO:TERUMO 02/16/2019 [id number] / Angio-Seal Vip [employer]-Plus - Sn/A Femoral MED N/A / Implanted: Qty: 1 on 07/01/2018 by Artery [id number] Lulu Perry MD Procedures Procedure Name Priority [...] Address City/State/Zipcode Phone Number MAIN LAB [address] [place] [address] * CBC AND DIFF (07/09/2018 5:47 AM) [...] City/State/Zipcode Phone Number [facility] [address] [place] [address] * COMPREHENSIVE METABOLIC PANEL (07/09/2018 5:47 AM) [...] for questions. Specimen Blood Performing Organization Address City/[facility]/Zipcode Phone Number [facility] [address] [place] [address] * CULTURE-BLOOD W/SENSITIVITY (07/08/2018 10:25 PM) Only the most recent of 4 results within the time period is included. Battery Name BLOOD CULTURE [facility] Specimen Description BLOOD MAIN LAB LEFT HAND Special Requests NONE MAIN LAB Culture NO GROWTH 5 DAYS MAIN LAB Report Status FINAL [facility] 07/14/2018 Specimen Blood Performing Organization Address City/[facility] Phone Number [facility] [address] [place] [address] * SURGICAL PATHOLOGY (07/08/2018 4:34 PM) PATHOLOGY REPORT [email or web address] Department of Pathology and Laboratory Medicine [address] [place] [address] Surgical Pathology Office:[phone] :[phone] SURGICAL PATHOLOGY REPORT NAME: VALDEZ ANTHONY SURG PATH #: [id number] MR #: [id number] SPECIMEN CLASS: SR BILLING #: [id number] ALT ID #:LOCATION: DISCHARGED DATE OF PROCEDURE: [...] Specimen Urine Performing Organization Address [facility] Phone Number [facility] [address] [place] [address] * URINALYSIS MICROSCOPIC REFLEX TO CULTURE (07/08/2018 [...] Specimen Urine Performing Organization Address [facility] Phone Number [facility] [address] [place] [address] * URINALYSIS DIPSTICK REFLEX TO CULTURE (07/08/2018 4:09 PM) Only the most recent of 3 results within the time period is included. Color,UA STRAW [facility] Turbidity,UA CLEAR CLEAR-CLEAR [facility] Specific [place]-Urine 1.005 1.003 - 1.035 [facility]IN [facility] [...] Specimen Urine Performing Organization Address [facility] Phone Number [facility] [address] [place] [address] * CHEST SINGLE VIEW (07/08/2018 2:15 PM) [...] RESULTS Procedure Date: 07/08/2018 10:48 AM CSN: [id number] Date of : 1960 Gender: Male Attending Physician: Huang Caorlina MD Procedure: Upper GI endoscopy Indications: Anemia (Mixed picture of anemia of chronic disease + Iron deficiency anemia), new onset of Afib and not on AC. Providers: Huang Carolina MD (Doctor), Roberto Dutta MD (Fellow), Alvaro Banegas (Nurse), Minna Jiménez RN (Nurse), Abisai Burden, Electrical Systems Designer (Electrical Systems Designer) Referring Physician: Referral Self Medications: Monitored Anesthesia [...] 55 seconds Procedure Code(s): --- Professional --- 18746, Esophagogastroduodenoscopy, flexible, transoral; with biopsy, single or multiple Diagnosis Code(s): --- Professional --- K44.9, Diaphragmatic hernia without obstruction or gangrene K31.89, Other diseases of stomach and duodenum D50.0, Iron deficiency anemia secondary to blood loss (chronic) CPT copyright 2016 [employer]. All rights reserved. The codes documented in this report are preliminary and upon search engine optimizer review may be revised to meet current [...] RESULTS Procedure Date: 07/08/2018 10:47 AM CSN: [id number] Date of : 1960 Gender: Male Attending Physician: Huang Carolina MD Procedure: Colonoscop y Indications: Anemia (Mixed picture of anemia of chronic disease + Iron deficiency anemia), new onset of Afib and not on AC. Providers: Huang Carolina MD (Doctor), Roberto Dutta MD (Fellow), Alvaro Banegas (Nurse), Minna Jiménez RN (Nurse), Abisai Burden, Electrical Systems Designer (Electrical Systems Designer) Referring Physician: Gerard Salazar MD Medications: Monitored [...] 15 seconds Procedure Code(s): --- Professional --- 32758, Colonoscopy, flexible; diagnostic, including collection of specimen(s) by brushing or washing, when performed (separate procedure) Diagnosis Code(s): --- Professional --- D50.0, Iron deficiency anemia secondary to blood loss (chronic) CPT copyright 2016 [employer]. All rights reserved. The codes documented in this report are preliminary and upon search engine optimizer review may be revised to meet current compliance requirements. Attending Participation: I was present and participated during the entire procedure, including non-jacobs portions. MD Huang De Oliveira MD 07/08/2018 1:28:26 PM The attending physician has electronically signed and finalized this document. Roberto Dutta MD Number of Addenda: 0 Note Initiated On: 07/08/2018 10:47 AM Performing Organization Address [facility] Phone Number [facility] OTHER RESULTS * PROCALCITONIN (07/08/2018 5:53 AM) Procalcitonin 0.13 (H) <0.10 NG/ML MAIN LAB Performing Organization Address [facility] Phone Number MAIN LAB [address] [place] [address] * HEMOGLOBIN (07/07/2018 5:45 AM) Only the most recent of 10 results within the time period is included. Hemoglobin 9.5 (L) 13.5 - 16.5 GM/DL MAIN LAB Comment: Corrected on 07/09 AT 1021: previously reported as DUPLICATE ORDER, Corrected on 07/07 AT 0811: previously reported as 9.5 Specimen Blood Performing Organization Address [facility] Phone Number MAIN LAB [address] [place] [address] * OCCULT BLOOD NON COLON CANCER SCREEN (07/06/2018 10:45 PM) Battery Name OCCULT BLOOD SCREEN MAIN LAB Specimen Description FECES MAIN LAB Special Requests NONE MAIN LAB Occult Blood NEGATIVE [facility] Report Status FINAL MAIN LAB 07/06/2018 Specimen Stool - Feces Performing Organization Address [facility] Phone Number MAIN LAB [address] [place] [address] * CBC (07/06/2018 4:27 AM) Only the [...] LAB MPV 8.6 7 - 11 FL [facility] Specimen Blood Performing Organization Address City/[facility]/Zipcode Phone Number [facility] [address] [place] [address] * BASIC METABOLIC PANEL (07/06/2018 4:27 AM) Only the most recent of 5 results within the time period is included. Sodium 138 137 - 147 MMOL/L MAIN LAB Potassium 3.8 3.5 - 5.1 MMOL/L MAIN LAB Chloride 103 98 - 110 MMOL/L [facility] CO2 26 21 - 30 MMOL/L MAIN LAB Anion Gap 9 3 - 12 MAIN LAB Glucose 146 (H) 70 - 100 MG/DL MAIN LAB Blood Urea Nitrogen 9 7 - 25 MG/DL MAIN LAB Creatinine 1.18 0.4 - 1.24 MG/DL [facility] Calcium 8.5 8.5 - 10.6 MG/DL MAIN LAB eGFR Non >60 >60 mL/min MAIN LAB Comment: The eGFR is not validated for use in drug dosing adjustments.Continue to use estimated creatinine clearance per dosing reference text.Please contact the Clinical Pharmacist for questions. eGFR >60 >60 mL/min [facility] Comment: The eGFR is not validated for use in drug dosing adjustments.Continue to use estimated creatinine clearance per dosing reference text.Please contact the Clinical Pharmacist for questions. Specimen Blood Performing Organization Address City/[facility]/Zipcode Phone Number [facility] [address] [place] [address] * CULTURE-URINE W/SENSITIVITY (07/05/2018 6:45 PM) Battery Name URINE CULTURE MAIN LAB Specimen Description URINE MAIN LAB Special Requests NONE [facility] MA[facility] Culture NO GROWTH [facility] Report Status FINAL MAIN LAB 07/06/2018 Specimen Urine Performing Organization Address City/State/Zipcode Phone Number MAIN LAB [address] [place] [address] * ABDOMEN AP ONLY (07/05/2018 9:20 AM) [...] MAIN LAB Specimen Blood Performing Organization Address City/[facility]/Zipcode Phone Number MAIN LAB [address] [place] [address] * BLOOD TYPE CONFIRMATION - ORDER ONLY IF REQUESTED BY LAB (07/04/2018 12:13 AM) ABO/RH(D) O NEG MAIN LAB Specimen Blood Performing Organization Address [facility] Phone Number MAIN LAB [address] [place] [address] * TYPE & CROSSMATCH (07/03/2018 11:48 PM) Units Ordered 1 MAIN LAB Crossmatch Expires 07/06/2018 MAIN LAB Record Check 2ND TYPE REQUIRED MAIN LAB ABO/RH(D) O NEG MAIN LAB Antibody Screen NEG MAIN LAB Electronic Crossmatch YES [facility] Unit Number [id number] MAIN LAB Blood Component Type RBC,CPDA,LEUKO REDUCED MAIN LAB Unit Division 0 MAIN LAB Status OF Unit TRANSFUSED MAIN LAB Transfusion Status OK TO TRANSFUSE MAIN LAB Crossmatch Result COMPATIBLE,ELECTRONIC MAIN LAB Specimen Blood Performing Organization Address [facility] Phone Number MAIN LAB [address] [place] [address] * SWALLOW MOTION SERIES (07/03/2018 8:59 AM) [...] on 07/03/2018 9:08 AM. Performing Organization Address City/[facility] Phone Number RAD RESULTS * ECG-SCAN (07/03/2018 7:35 AM) Narrative Performed At Ordered by an unspecified provider. * PHOSPHORUS (07/02/2018 4:15 AM) Only the most recent of 2 results within the time period is included. Phosphorus 2.6 2.0 - 4.0 MG/DL MAIN LAB Specimen Blood Performing Organization Address City/[facility]/Zipcode Phone Number MAIN LAB [address] [place] [address] * MAGNESIUM (07/02/2018 4:15 AM) Only the most recent of 2 results within the time period is included. Magnesium 1.9 1.6 - 2.6 mg/dL [facility]IN [facility] Specimen Blood Performing Organization Address City/[facility]/Zipcode Phone Number [facility] MAIN LAB [address] [place] [address] * IONIZED CALCIUM (07/02/2018 4:15 AM) Only the most recent of 2 results within the time period is included. Ionized Calcium 1.14 1.0 - 1.3 MMOL/L [facility]IN [facility] Specimen Blood Performing Organization Address City/[facility] Phone Number [employer] MAIN LAB [address] [place] [address] * MRI HEAD WO CONTRAST (07/01/2018 9:10 [...] the posterior medial left temporal lobe. 3. Congregational of flow void within the right M1 [...] changes. Major vascular flow voids of the [place] and dural venous sinuses are [...] changes. Major vascular flow voids of the [place] and dural venous sinuses are [...] the posterior medial left temporal lobe. 3. Congregational of flow void within the right M1 [...] 95 - 99 % [facility]IN [facility] Jwjbadcszfb-PWY-Xlc 20.6 (L) 21 - 28 MMOL/L [facility]IN [facility] Specimen Blood, arterial - Blood Performing Organization Address City/State/Zipcode Phone Number MAIN LAB [address] [place] [address] * CT HEAD WO CONTRAST (07/01/2018 2:46 [...] 72.37 % OTHER OUTSIDE LAB AV index ([place]) 0.56 OTHER OUTSIDE LAB E/A ratio 1.35 OTHER OUTSIDE LAB E/E' ratio 10.67 OTHER OUTSIDE LAB CV ECHO PV SHOT GRINDER OPERATOR MAXINE Cooley OTHER OUTSIDE LAB LV mass 118.49 96 - 200 g OTHER OUTSIDE LAB RWT 0.36 <=0.42 OTHER OUTSIDE LAB TV rest pulmonary artery 22 mmHg OTHER OUTSIDE LAB pressure Right Heart Systolic TDI 0.110 m/s OTHER OUTSIDE LAB S' Cardiology Ultrasound Siemens [id number] OTHER OUTSIDE LAB Machine ECHO EF 60 [...] study available for comparison Performing Organization Address [facility] Phone Number OTHER OUTSIDE LAB * BETA HYDROXYBUTYRATE (KETONES) (07/01/2018 12:50 PM) Beta Hydroxybutyrate 0.1 <0.3 MMOL/L [facility]IN [facility] Comment: Beta hydroxybutyrate (BOHB) is the most abundant ketone (78%), followed by acetoacetate (20%) and acetone (2%).Measurement BOHB is recommended to assess ketones in DKA. Expected BOHB Results for DKA: Initial presentation high/increasing During treatment decreasing Resolved decreasing/normal Performing Organization Address [facility] Phone Number [facility] [address] [place] [address] * LACTIC ACID (BG - RAPID LACTATE) (07/01/2018 12:50 PM) Lactic Acid,BG 1.5 0.5 - 2.0 MMOL/L [facility]IN [facility] Specimen Blood Performing Organization Address [facility] Phone Number [facility] [address] [place] [address] * LACTIC ACID(LACTATE) (07/01/2018 12:50 PM) Lactic Acid 1.5 0.5 - 2.0 MMOL/L [facility] Performing Organization Address [facility]/Zipcode Phone Number [facility] [address] [place] [address] * HEMOGLOBIN A1C (07/01/2018 12:50 PM) Hemoglobin A1C 17.4 (H) 4.0 - 6.0 % [facility] Comment: The ADA recommends that most patients with type 1 and type 2 diabetes maintain an A1c level <7%. Specimen Blood Performing Organization Address [facility] Phone Number MAIN LAB [address] [place] [phone] * LIPID PROFILE (07/01/2018 12:50 PM) Cholesterol [...] 130 mg/dL. Specimen Blood Performing Organization Address [facility] Phone Number MAIN LAB [address] [place] [phone] * IR ARTERIOGRAM NEURO (07/01/2018 12:29 PM) [...] Fentanyl 25 mcg Contrast - 100 cc [id number] Total mGy - 421 Anesthesia:conscious sedation Consent [...] the sheath was advanced over a 5 [place]ian 125 cm Vert catheter over a 180 cm 0.035 Sherwood wire over the aortic arch and into [...] therefore, hemostasis was achieved using an 8 [place] Angioseal closure device followed by manual pressure [...] Fentanyl 25 mcg Contrast - 100 cc [id number] Total mGy - 421 Anesthesia: conscious sedation [...] the sheath was advanced over a 5 [place] 125 cm Vert catheter over a 180 cm 0.035 Sherwood wire over the aortic arch and into [...] therefore, hemostasis was achieved using an 8 [place] Angioseal closure device followed by manual pressure [...] teamat 11:51 AM on 07/01/2018 by the senior vice president & general counsel in consultation with TALIA BOSTON M.D.. Approved [...] at 11:51 AM on 07/01 by the senior vice president & general counsel in consultation with TALIA BOSTON M.D.. Approved [...] teamat 11:51 AM on 07/01/2018 by the senior vice president & general counsel in consultation with TALIA BOSTON M.D.. Approved [...] at 11:51 AM on 07/01 by the senior vice president & general counsel in consultation with TALIA BOSTON M.D.. Approved [...] teamat 11:51 AM on 07/01/2018 by the senior vice president & general counsel in consultation with TALIA BOSTON M.D.. Approved [...] at 11:51 AM on 07/01 by the senior vice president & general counsel in consultation with TALIA BOSTON M.D.. Approved [...]
--- OUTSIDE RECORDS SUMMARY | 2018-08-23 15:51 | XMS REPORT | Encounter Summary ---
Author Author [facility] Organization [facility] Address Unknown Phone Unavailable Care Team Providers Care Technical Writing Lead/Mgr Name Role Phone Damien Caceres MD Unavailable [...] [address] [place] [address] [place] [address] [phone] Anesthesia Record Procedure Name Responsible Anesthesia Start [...] RT; Eye; Surgical Incision 05/11/14 0000 by [place], (NOT for MAXINE Kim Pressure Injuries) Indwelling [...] due to out of window), transferred to [facility] and found to have R [...] Consent: consented Plan discussed with: anesthesiologist and SERICULTURE TEACHER. Comments: (Patient not participating in health history/consent. [...]
--- OUTSIDE RECORDS SUMMARY | 2018-08-23 15:51 | XMS REPORT | Encounter Summary ---
Author Author [facility] Organization [facility] Address Unknown Phone Unavailable Care Team Providers Care Tractor Trailer Driver Name Role Phone Damien Caceres MD Unavailable Melo Adame MD Unavailable Unavailable Alvarez Ozuna NP PCP Hilary Davenport RN Unavailable Unavailable Encounter Details Date Type Department Care Team Description 07/08/2018 Procedure Pass Gastrointenstinal Endoscopy [address] [place], [place] [id number] Social History Tobacco Use Types Packs/Day Years [...]
--- OUTSIDE RECORDS SUMMARY | 2018-08-23 15:51 | XMS REPORT | Encounter Summary ---
Author Author [facility] Organization [facility] Address Unknown Phone Unavailable Care Team Providers Care Aperture Mask Etcher Name Role Phone Damien Caceres MD Unavailable Melo Adame MD Unavailable Unavailable Lulu Ozuna NP PCP Hilary Davenport RN Unavailable Unavailable Reason for Referral * Consult, Test & Treat (Routine) Status Reason Specialty Diagnoses / Referred By Referred To Procedures Contact Contact Closed Specialty Gastroenterology Diagnoses Keyshawn Gomez [facility] Gastrointestinal J, Ortho and Medical Required hemorrhage with [address] [place], [place] [phone] Phone: Fax: Reason for Visit * Auth/Cert Status Reason Specialty Diagnoses / Referred By Referred To Procedures Contact Contact Diagnoses Stroke (HCC) Stroke Encounter Details Date Type Department Care Team Description 07/01/2018 Hospital [place] Diego Gutierrez MD Stroke (HCC) - Encounter [address] 07/09/2018 [place] [address] [place], [place] [id number] Shanna Rocha MD [address] [place], [place] [id number] Veronica Buchanan MD [address] [place] [address] Keyshawn Hinton MD [address] [place] [address] Social History Tobacco Use Types [...] s/p suprapubic catheter that was admitted at [facility] for urosepsis, DKA, A fib with RVR requiring cardizem ggt that was transferred for concerns for stroke. Admitted on 06/28 to [facility] with week history of cough, SOB. Found to have UTI with urosepsis and DKA with CO2 of 8, BG in 600s. Admitted to the ICU at [facility]. Started on CTX and [...] language) 2=neither correct 2 1c. 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, digital artist and release non-paretic hand (other 1 step [...] tPA given unclear window. Was transferred to [facility] for evaluation. Was given ativan 2mg [...] stroke on 07/15. ECHO showed no thrombus. SHOE TRIMMER was following and pt graduated to regular [...] hospital course Consults: Cardiology, Endocrinology, GI and PT/OT/SHOE TRIMMER, rehab, urology Patient Disposition: [facility] Patient instructions/medications: AMB REFERRAL TO GASTROENTEROLOGY [...] home, please feel free to contact the Special Effects Specialist at [phone]. Your last blood pressure was BP: 171/73, [...] Report These Signs and Symptoms STROKE Call [phone] for the following symptoms: *Sudden numbness or weakness of the face, arm or leg, especially on one side of the body. *Sudden confusion, trouble speaking or understanding. *Sudden trouble seeing in one or both eyes. *Sudden trouble walking, dizziness, loss of balance or coordination. *Sudden, severe headache with no known cause. Return Appointment For Neurology scheduling contact [phone] For Neurosurgery appointments call [phone] Questions About Your Stay STANDARD For questions or concerns regarding your hospital stay: -DURING BUSINESS HOURS (8:00 AM - 4:30 PM): Call [phone] and ask to be transferred to your discharge attending physician. -AFTER BUSINESS HOURS (4:30 PM - 8:00 AM, on weekends, or holidays): Call [phone] and ask the subgrade roller operator to page the on-call doctor for the discharge attending physician. Discharging attending physician: KEYSHAWN GOMEZ [[id number]] Complete if patient is going to a [facility] Facility I certify that the patient requires [...] home, you can call a dietitian at [phone]. Modified Liquids Your fluids should be thickened to a consistency of nectar. This is as thick as a milkshake or tomato juice. If you have questions about your diet after you go home, you can call a dietitian at [phone]. Current Discharge Medication List START taking these [...] CDT Return Patient with Lulu Perry MD [facility] ([facility]) [facility] [address] [place] [phone] Additional appointment instructions: Please follow up with your PCP for repeat labs, monitoring your blood pressure, and monitoring your blood glucose Please follow up with the color coater at [facility] for follow up visit. Please follow [...] blood glucose Please follow up with the color coater at [facility] for follow up visit. Please follow [...] - 07/09/2018 2:57 PM CDT Phoned [facility] [phone] and gave report to Perla GOODMAN to receive patient. Informed her that patient to transport at 13:00. By 15:00 no transport arrived, phoned facility above and it was reported that ride was on the way. FSBS=69 checked prior to transport. Reported to amphibious operations officer for Neurology, juice x 2 given FSBS rechecked=87. Patient left unit via wheelchair and service car driver who was given chart for [...] Range Color,UA STRAW Turbidity,UA CLEAR CLEAR-CLEAR Specific [place]-Urine 1.005 1.003 - 1.035 pH,UA 8.0 5.0 [...] 0547) POC Glucose (Download): (!) 136 (07/09/18 6027) Radiology and other Diagnostics Review: Pertinent radiology [...] DKA resolved -A1c 17.4 on 07/01/2018 uncontrolled -SECURITY PUBLIC SAFETY OFFICER regimen: levemir 40 units QHS, Novolog [...] will follow up with local endocrinology in [facility] Subjective Valdez Anthony is a 57 [...] Range Color,UA STRAW Turbidity,UA CLEAR CLEAR-CLEAR Specific [place]-Urine 1.005 1.003 - 1.035 pH,UA 8.0 5.0 [...] Diagnostics Review: none Barbi Deluna MD P [phone] * Tata Daniels, RD - 07/09/2018 12:54 PM CDT CLINICAL NUTRITION Clinical Nutrition Follow-Up Summary NAME:Valdez Anthony :1960 AGE: 57 y.o. ADMISSION DATE: 07/01/2018 DAYS ADMITTED: LOS: 8 days Nutrition Assessment of Patient: Malnutrition Assessment: Does not meet criteria Current Oral Intake: Improving, Marginally Adequate Estimated Calorie Needs: 8137-0351 (25-28 kcal/kg desired wt) Estimated Protein Needs: 85-100 (1.2-1.4 g/kg desired wt) Oral Diet Order: Diabetic [phone] Kcal/day (60 g Carb/meal, 30 g Carb/HS snack ), Winston Thick Liquids Comments: 57 y.o. male with new onset Atrial Fibrillation with RVR, HTN, HLD, T2DM, Diabetic Retinopathy, OD Blindness, Neovascular Glaucoma, Prostate Cancer s/p prostatectomy, Urinary Retention s/p suprapubic catheter that was admitted at [facility] for urosepsis, DKA, A fib [...] and underwent via video- swallow eval with SHOE TRIMMER findings of moderate oropharyngeal dysphagia and baseline cognitive deficits. SHOE TRIMMER working with pt and diet has advanced from nectar thick full liquids to 60g/meal consistent carb diet with nectar thick fluids. Per had 100% omelet for breakfast today (refused per RN) and sandwich ordered by for lunch. No current wt to assess; unable to actually see pt today as he was bundled in his blankets. Pt has orders for no sugar added [place] breakfast with nectar thick milk at breakfast and per RN throughout day as needed. Followed up with call center who says orders not printing to meal ticket. denies need for diet education Recommendation: Encourage good meal intakes at least 3 times per day with adequate protein source each meal on 60g/meal consistne carb diet. Offer no sugar added [place] Breakfast shakes made with nectar thick milk at breakfast and PRN. Intervention / Plan: Monitor po intake tolerance and adequacy monitor wt trends, labs, meds and GI status Nutrition Diagnosis: Altered GI function Etiology: swallowing and cognitive deficits Signs & Symptoms: SHOE TRIMMER findings and nectar thick liquids with diabetic diet Goals: Patient to consume >75% of meals/supplements Time Frame: Within 72 Hours Status: Met Patient to consume >85% of meals/supplements Time Frame: Throughout Stay Tata Daniels, MS,RD, LD, [facility] *[id number] * James Shook, DO - 07/09/2018 [...] prostate cancer s/p prostatectomy who presents to [facility] as a transfer from [facility] for stroke. OSH course: [...] tPA given unclear window. Was transferred to [facility] for evaluation. Was given ativan 2mg [...] EF, LA size 3.5cm, no thrombus - SHOE TRIMMER following -> recommend regular diet w/ nectar [...] TIDAC >pt to f/u w/ endo @ [facility] outpt basis -> goal BS 100-140 [...] -> develop stroke and was transferred to [facility] - Was placed on PO cardizem [...] discharge today to [facility] @ 1300 Patient was seen and [...] Range Color,UA STRAW Turbidity,UA CLEAR CLEAR-CLEAR Specific [place]-Urine 1.005 1.003 - 1.035 pH,UA 8.0 5.0 [...] prostate cancer s/p prostatectomy who presents to [facility] as a transfer from [facility] for stroke. OSH course: [...] tPA given unclear window. Was transferred to [facility] for evaluation. Was given ativan 2mg [...] EF, LA size 3.5cm, no thrombus - SHOE TRIMMER following -> recommend regular diet w/ nectar [...] TIDAC >pt to f/u w/ endo @ [facility] outpt basis -> goal BS 100-140 [...] -> develop stroke and was transferred to [facility] - Was placed on PO cardizem [...] fluids, replace lytes PRN, ada diet Ppx: [id number] Heparin Sq Q8, SCDs Code: Full Dispo: [...] (07/08/18 0553) POC Glucose (Download): 75 (07/08/18 1913) Radiology and Other Diagnostics Review: Pertinent radiology [...] pathology results. Roberto Dutta GI fellow Pager [phone] 07/08/2018 3:39 PM * Eloy Higgins RN [...] or concerns after your procedure please call [phone] M-F 8am-5:00 pm. After 5:00 pm, holidays or weekends call [phone] and ask for the GI Doctor amphibious operations officer. * Barbi Deluna MD - [...] DKA resolved -A1c 17.4 on 07/01/2018 uncontrolled -SECURITY PUBLIC SAFETY OFFICER regimen: levemir 40 units QHS, Novolog [...] will follow up with local endocrinology in [facility] Subjective Valdez Anthony is a 57 [...] s/p suprapubic catheter that was admitted at [facility] for urosepsis, DKA, A fib [...] PROGRESS NOTE Patient Name: Valdez Anthony Room/Bed: FP8374/01 Admitting Diagnosis: Stroke Past Medical History: Diagnosis [...] occasionally in community. Prior Function Level Of [place]: Independent with ADLs and functional transfers Lives [...] Bed mobility, Ambulation, Stairs Therapist: ERIC Whalen/Cesia [id number] Date: 07/08/2018 * Whit Guadarrama MS,CCC-SHOE TRIMMER - 07/08/2018 9:38 AM CDT SPEECH-LANGUAGE PATHOLOGY NO TREATMENT NOTE Chart reviewed and discussed in interdisciplinary rounds. Pt NPO for colonoscopy this date. SHOE TRIMMER will continue to follow. Therapist: Whit Guadarrama MS,CCC-SHOE TRIMMER [id number] Date: 07/08/2018 * Barbi Deluna MD - [...] DKA resolved -A1c 17.4 on 07/01/2018 uncontrolled -SECURITY PUBLIC SAFETY OFFICER regimen: levemir 40 units QHS, Novolog [...] will follow up with local endocrinology in [facility] Subjective Valdez Anthony is a 57 [...] prostate cancer s/p prostatectomy who presents to [facility] as a transfer from [facility] for stroke. OSH course: [...] tPA given unclear window. Was transferred to [facility] for evaluation. Was given ativan 2mg [...] EF, LA size 3.5cm, no thrombus - SHOE TRIMMER following -> recommend regular diet w/ nectar [...] > pt to f/u w/ endo @ [facility] outpt basis -> goal BS 100-140 [...] -> develop stroke and was transferred to [facility] - Was placed on PO cardizem [...] clear liquid/ada diet for procedure tomorrow Ppx: [id number] Heparin Sq Q8, SCDs Code: Full Dispo: [...] provide intervention as indicated. Irma Blakely OTR/L [id number] * Whit Guadarrama, ,CCC-SHOE TRIMMER - 07/07/2018 9:50 AM CDT SPEECH-LANGUAGE PATHOLOGY NO TREATMENT NOTE Chart reviewed and discussed in interdisciplinary rounds. Pt NPO for colonoscopy this date. SHOE TRIMMER will continue to follow. Therapist: Whit Guadarrama MS,[facility]-SHOE TRIMMER [id number] Date: 07/07/2018 * Shira Welch RN - [...] DKA resolved -A1c 17.4 on 07/01/2018 uncontrolled -SECURITY PUBLIC SAFETY OFFICER regimen: levemir 40 units QHS, Novolog [...] will follow up with local endocrinology in [facility] Subjective Valdez Anthony is a 57 [...] Color,UA YELLOW Turbidity,UA 2+ (A) CLEAR-CLEAR Specific [place]-Urine 1.017 1.003 - 1.035 pH,UA 5.0 5.0 [...] prostate cancer s/p prostatectomy who presents to [facility] as a transfer from [facility] for stroke. OSH course: [...] tPA given unclear window. Was transferred to [facility] for evaluation. Was given ativan 2mg [...] EF, LA size 3.5cm, no thrombus - SHOE TRIMMER following -> recommend regular diet w/ nectar [...] > pt to f/u w/ endo @ [facility] outpt basis -> goal BS 100-140 [...] fluids, replace lytes PRN, ADA diet Ppx: [id number] Heparin Sq Q8, SCDs Code: Full Dispo: [...] asked these questions and provided answers by SHOE TRIMMER) Speech: slurred speech w/ comprehension intact to [...] Color,UA YELLOW Turbidity,UA 2+ (A) CLEAR-CLEAR Specific [place]-Urine 1.017 1.003 - 1.035 pH,UA 5.0 5.0 [...] due to out of window), transferred to [facility] and found to have R M1 [...] established Keyshawn Gomez MD * Whit Guadarrama MS,CCC-SHOE TRIMMER - 07/06/2018 12:14 PM CDT Formatting of this note may be different from the original. SPEECH-LANGUAGE PATHOLOGY COGNITIVE-COMMUNICATION ASSESSMENT EVALUATION SUMMARY Pt seen for cognitive communication evaluation utilizing the Mcnabb Cognitive Assessment (MOCA) as well as other [...] address dysphagia and cognitive communication concerns. Ongoing SHOE TRIMMER at next level of care. Consistent supervision [...] city, stating we are located at [facility]. Verbal Problem Solving Comments: Functional problem [...] baseline to call for assistance if needed. Mcnabb Cognitive Assessment (MoCA), Version 7.1 Subtest / [...] suprapubic catheter that was admitted at [facility] for urosepsis, DKA, A [...] the posterior medial left temporal lobe. 3. Anglican of flow void within the right M1 [...] spoon/cup and pureed /mech soft solids w/ SHOE TRIMMER only w/ less than 5% s/s of [...] from respiratory status changes. Therapist: Whit Guadarrama MS,[facility]-SHOE TRIMMER [id number] Date: 07/06/2018 * Aria Mccoy, PT - [...] s/p suprapubic catheter that was admitted at [facility] for urosepsis, DKA, A fib [...] spoon/cup and pureed /mech soft solids w/ SHOE TRIMMER only w/ less than 5% s/s of [...] speech therapy post acute hospitalization. Therapist: Cesia Hatfield/CCC-SHOE TRIMMER (Pager [phone]; Voalte: [phone]) Date: 07/05/2018 * Darcy Goodrich MD - [...] s/p suprapubic catheter that was admitted at [facility] for urosepsis, DKA, A fib [...] EF, LA size 3.5cm, no thrombus - SHOE TRIMMER to eval and treat - Video swallow [...] - Rocephin 07/01 - 07/05 FEN: - Winston thick PO fluids - Daily BMP - [...] 0557) POC Glucose (Download): (!) 139 (07/05/18 9500) Radiology and other Diagnostics Review: Pertinent radiology reviewed. Darcy Goodrich MD Neurology PGY-4 Pager Neurology amphibious operations officer pager [phone] Associated attestation - Diego Gutierrez [...] DKA resolved -A1c 17.4 on 07/01/2018 uncontrolled -SECURITY PUBLIC SAFETY OFFICER regimen: levemir 40 units QHS, Novolog [...] will follow up with local endocrinology in [facility] This is an individual we are [...] s/p suprapubic catheter that was admitted at [facility] for urosepsis, DKA, A fib [...] EF, LA size 3.5cm, no thrombus - SHOE TRIMMER to eval and treat - Video swallow [...] - Rocephin 07/01 - 07/05 FEN: - Winston thick PO fluids - Daily BMP - [...] 20,000 Units/ sodium bicarbonate 650 mg(#) PRN (Director Diabetes from Rx) Vital Signs: Last Filed in [...] the posterior medial left temporal lobe. 3. 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 Munira Ortega DO Pager [phone] Associated attestation - Diego Gutierrez MD - [...] DKA resolved -A1c 17.4 on 07/01/2018 uncontrolled -SECURITY PUBLIC SAFETY OFFICER regimen: levemir 40 units QHS, Novolog [...] will follow up with local endocrinology in [facility] Anemia This patient is having ongoing [...] 20,000 Units/ sodium bicarbonate 650 mg(#) PRN (Director Diabetes from Rx) Objective Vital Signs: Last Filed [...] Screen NEG Electronic Crossmatch YES Unit Number [id number] Blood Component Type RBC,CPDA,LEUKO REDUCED Unit Division [...] s/p suprapubic catheter that was admitted at [facility] for urosepsis, DKA, A fib [...] EF, LA size 3.5cm, no thrombus - SHOE TRIMMER to eval and treat - Video swallow [...] - UA negative for UTI FEN: - Winston thick PO fluids - Daily BMP - [...] 20,000 Units/ sodium bicarbonate 650 mg(#) PRN (Director Diabetes from Rx) Vital Signs: Last Filed in [...] the posterior medial left temporal lobe. 3. Anglican of flow void within the right M1 [...] s/p suprapubic catheter that was admitted at [facility] for urosepsis, DKA, A fib [...] 6 Standardized (T-scale) Score: 16.59 Basic Mobility [facility] 0-100%: 100 CMS G Code Modifier for [...] weekend, with staff training and development manager. Ivised mobility recommendation with bedside RN. RECOMMENDATIONS: PT Discharge Recommendations PT Discharge Recommendations: Inpatient Setting Therapist: Dolores Sampson, PT Date: 07/03/2018 * Mary Grace Stanton, OT - 07/03/2018 1:33 PM CDT Formatting of this note may be different from the original. OCCUPATIONAL THERAPY PROGRESS NOTE Patient Name: Valdez Anthony Room/Bed: [place] [address] Admitting Diagnosis: Stroke Past Medical History: Diagnosis [...] non verbal with left hemiplegia. Transferred to [facility]. R MCA stroke s/p thrombectomy, stent [...] occasionally in community. Prior Function Level Of [place]: Independent with ADLs and functional transfers Lives [...] s/p suprapubic catheter that was admitted at [facility] for urosepsis, DKA, A fib [...] Fed Thin Liquid: 1 oz, Cup, Straw Winston Thick Liquid: Cup, Straw Honey Thick Liquid: [...] spoon/cup and pureed /mech soft solids w/ SHOE TRIMMER only w/ less than 5% s/s of aspiration. Goal : Pt will participate in cognitive-communication assessment given mod cues. Therapist: BIANCA Lamb, L/CCC-SHOE TRIMMER Voalte: [phone] Date: 07/03/2018 * Alex Medel RN - [...] no feeding at this time. Alonzo Watt, VENDING MACHINE REFILLER, said the video swallow results are back [...] PM CDT Patient arrived to room # (8249) via bed accompanied by RN. Patient transferred [...] 9:20 PM CDT Pt transported to room [facility] via bed, RN x2, VSS. Pt 2100 [...] ASSESSMENT NOTE Patient Name: Valdez Anthony Room/Bed: JC5508/01 Admitting Diagnosis: Stroke Past Medical History: Diagnosis [...] occasionally in community. Prior Function Level Of [place]: Independent with ADLs and functional transfers Lives [...] s/p suprapubic catheter that was admitted at [facility] for urosepsis, DKA, A fib [...] Sampson, PT Date: 07/02/2018 * Alonzo Watt APRN-VENDING MACHINE REFILLER - 07/02/2018 1:20 PM CDT Vascular Neurology Interval Note Valdez Caal a 57 y.o.maleis a 57 y.o. male with new onset Atrial Fibrillation with RVR, HTN, HLD, T2DM, Diabetic Retinopathy, OD Blindness, Neovascular Glaucoma, Prostate Cancer s/p prostatectomy, Urinary Retention s/p suprapubic catheter that was admitted at [facility] for urosepsis, DKA , A [...] from the ICU. Updated plan: - NPO, SHOE TRIMMER to monitor swallow - Protein shake supplements - f/u on Blood Cxr's - Continue insulin gtt, consider endocrine consult - SBP <140 Alonzo Watt APRN-VENDING MACHINE REFILLER Vascular Neurology [phone] Associated attestation - Diego [...] is restart AC in 10 days, needs SHOE TRIMMER re-eval for get cleared otherwise PEG, Glu [...] reports that pt completed videoswallow evaluation at [facility], which she states yielded recommendations for [...] Continue Treatment 3-5x/week. Prognosis: Fair NOMS Dysphagia Ratin1-Xaorbxswxf-Rxidnd Dysphagia -Not able to swallow safely by mouth for nutrition/hydration but may take some consistency w/ consistent max cues in therapy only. Alternative method of feeding required. Results Reported to Physician: Yes Objective* Relevant Med Background: 57 y.o. male with A-Fib (on Coumadin SECURITY PUBLIC SAFETY OFFICER), IDDM, Prostate CA, OD blindness, HLD [...] the posterior medial left temporal lobe. 3. Anglican of flow void within the right M1 [...] videoswallow evaluation given mild-mod cues. Therapist:BIANCA Lamb, Cesia/CCC-SHOE TRIMMER Voalte: [id number] Date:07/02/2018 * Ciarra Valentino DO - 07/02/2018 [...] s/p suprapubic catheter that was admitted at [facility] for urosepsis, DKA , A [...] involving the medial L temporal lobe. 3. Anglican of flow void in the R M1. - Stroke Risk Factor Modification -LDL 44. Goal <70. Continue captain room service atorvastatin 40mg -A1c 17.4. Goal <7.0 -Continue ASA. Will discuss timing of AC given Afib. -Goal BP <140 - PT/OT, Speech Consult - Consult to Rehab - Neuro-ICU monitoring, neurochecks q 1 hrs Encephalopathy -s/p Flumazenil 0.5mg x 2 -07/01 ABG 7.34/39/102/20.6 -07/01 EEG: Diffuse slowing indicative of encephalopathy. No seizures or epileptiform activity. -No sedation needs -Holding captain room service Bupropion, Duloxetine Sedation/Pain Management: -s/p ativan 2mg and fentanyl 25mcg -s/p flumazenil 0.5 mg x 3 -No sedation needs at this time Cardiac: Afib with RVR -[id number]: 4: 4.8% Risk for stroke and 6.7% [...] - Hydralazine prn SBP >140 - Continue captain room service Lisinopril 20mg HLD - LDL 44. Goal LDL <70. Continue captain room service atorvastatin 20mg Respiratory: Hypoxia likely 2/2 to [...] - Blood glucose goal 100-180mg/dl - Holding captain room service Levemir 16 units and Novolog 5 units [...] (Last 24 hours) Glucose: (!) 127 (07/02/18 1199) POC Glucose (Download): (!) 142 (07/02/18 5020) Lab Review: 24-hour labs: Results for orders [...] Range Color,UA STRAW Turbidity,UA CLEAR CLEAR-CLEAR Specific [place]-Urine 1.018 1.003 - 1.035 pH,UA 5.0 5.0 [...] O2 Sat-Arterial 97.5 95 - 99 % Ktvbdaljjkd-QMW-Klt 20.6 (L) 21 - 28 MMOL/L POC [...] procedures reviewed. Ciarra Valentino, DO Date: 07/02/[phone] Associated attestation - Veronica Doyle MD - [...] outpatient follow up Jerry Baker MD Urology amphibious operations officer Please page amphibious operations officer with concerns * Jaycob Ramos [...] discussed patient with Dr Valentino and the [facility] team. I agree with the objective findings [...] Doyle MD Date: 07/01/2018 * Whit Guadarrama MS,CCC-SHOE TRIMMER - 07/01/2018 1:36 PM CDT SPEECH-LANGUAGE PATHOLOGY NO TREATMENT NOTE Order received and appreciated for clinical swallow evaluation. Chart reviewed and made contact with RN. Pt currently with another provider and with decreased level of arousal/responsiveness following ativan administration in the helicopter. SHOE TRIMMER will hold at this time per discussion with RN. SHOE TRIMMER will follow up and will complete evaluation when pt medically appropriate. Addendum 15:20: pt remains somnolent and unable to sustain adequate level of arousal to participate in clinical swallow evaluation per discussion with RN. SHOE TRIMMER will return to complete evaluation when appropriate. Chart review: Mr. Anthony presented to [facility] on 06/29 with uro-sepsis [...] suggesting smaller completed infarct. Therapist: Whit Guadarrama MS,CCC-SHOE TRIMMER [id number] Date: 07/01/2018 * Mrai Mullen RN - 07/01/2018 1:25 PM CDT [...] Procedure History and Physical/Sedation Plan Name:Valdez COLONN: [id number] :1960 Age: 57 y.o. Date of Service: [...] s/p suprapubic catheter that was admitted at [facility] for urosepsis, DKA, A fib [...] Factor Modification -Lipid Panel and A1c. Continue captain room service atorvastatin 40mg -TTE -Start ASA. -Goal BP <140 - PT/OT, Speech Consult - Consult to Rehab - Neuro-ICU monitoring, neurochecks q 1 hrs Encephalopathy likely 2/2 to Ativan, Fentanyl -s/p Flumazenil 0.5mg x 2 -ABG -CT Head w/out contrast -No sedation needs -Holding captain room service Bupropion, Duloxetine Sedation/Pain Management: -s/p ativan 2mg and fentanyl 25mcg -s/p flumazenil 0.5 mg x 2 -No sedation needs at this time Cardiac: Afib with RVR -[id number]: 4: 4.8% Risk for stroke and 6.7% [...] due to bradycardia at OSH - Holding captain room service Lisinopril 20mg and Metoprolol 25mg BID HLD - Lipid Panel. Goal LDL <70. Continue captain room service atorvastatin 20mg Respiratory: DHRUV -RA - ABG [...] - Blood glucose goal 100-180mg/dl - Holding captain room service levemir, novolog FEN: - IVF: NPO, NS [...] p suprapubic catheter that was admitted at [facility] for urosepsis, DKA, A fib with RVR requiring cardizem ggt that was transferred for concerns for stroke. Admitted on 06/28 to [facility] with week history of cough, SOB. Found to have UTI with urosepsis and DKA with CO2 of 8, BG in 600s. Admitted to the ICU at [facility]. Started on CTX and [...] language) 2=neither correct 2 1c. 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, digital artist and release non-paretic hand (other 1 step [...] more than one modality 2 Score 32 [place] coma score: E: 2 - Opens eyes [...] diagnostic procedures reviewed. Ciarra Valentino, Date: 07/01/[phone] * Edvin Juarez, PNEUMATIC TOOL REPAIRER-VENDING MACHINE REFILLER - 07/01/2018 12:03 PM CDT Formatting of [...] Pertinent labs reviewed Edvin Juarez APRN-ROSEANN Pager [phone] in this encounter Procedure Notes * Amy Velasquez MD - 07/01/2018 8:07 PM CDT Procedure(s): EEG AWAKE & ASLEEP EEG REPORT Valdez Anthony 1960 [id number] DATE OF STUDY 07/01/18 PATIENT HISTORY: This [...] mL IVPB (MB+), 1 g, Intravenous, PRN (Director Diabetes from Rx) AND Ionized Calcium, , , [...] 250 mL IVPB, 8 mmol, Intravenous, PRN (Director Diabetes from Rx) AND Phosphorus, , , PRN [...] here. EGD showed s/p polypectomy. Transferred to [facility] for stroke. Hgb dropped from 10.1 [...] She also does mention that at the Health system the patient did have an upper endoscopy [...] Date Noted Sepsis (HCC) 01/15/2016 Severe sepsis ([facility]) 01/15/2016 LATISHA (acute kidney injury) ([facility]) 01/15/2016 High anion gap metabolic acidosis 01/15/2016 Past Medical History: Diagnosis Date Arthritis DM (diabetes mellitus) ([facility]) DM eyes Glaucoma Hypertension Social [...] Color,UA YELLOW Turbidity,UA 2+ (A) CLEAR-CLEAR Specific [place]-Urine 1.017 1.003 - 1.035 pH,UA 5.0 5.0 [...] DKA resolved -A1c 17.4 on 07/01/2018 uncontrolled -SECURITY PUBLIC SAFETY OFFICER regimen: levemir 40 units QHS, Novolog [...] will follow up with local endocrinology in [facility] Patient was seen and discussed with [...] with diabetes in 1994. He follows with color coater at [facility]. At home, he was taking Levemir 40 units once a day, NovoLog 20-25 units with meal, metformin 1000 mg twice a day. His states that color coater prescribe NovoLog 40 units 3 times a [...] reviewed. Brenda Larios Endocrine Fellow Pager # [phone] 07/03/2018 Associated attestation - John Chaudhry MD [...] thick full liquids today) Estimated Calorie Needs: [id number] (25-28 kcal/kg desired wt) Estimated Protein Needs: 85-100 (1.2-1.4 g/kg desired wt) Oral Diet Order: Full Liquid, [place] Thick Liquids Current EN Order: Isosource 1.5 [...] s/p suprapubic catheter that was admitted at [facility] for urosepsis, DKA, A fib [...] 07/02. Pt pulled Corpak today despite mits. SHOE TRIMMER evaluated pt via video-swallow with moderate oropharyngeal dysphagia and baseline cognitive deficits. SHOE TRIMMER recommending nectar thick full liquids; diet ordered. [...] meal. Offer No Sugar Added "Light Start [place] Breakfast Essentials" shakes made with nectar thick [...] Intervention / Plan: assessed nutritional status; ordered [place] Breakfast shakes with nectar thick milk PRN monitor po intake, adequacy, tolerance and advancement per SHOE TRIMMER findings and recs monitor wt trends, labs, meds and GI status Nutrition Diagnosis: Altered GI function Etiology: swallowing and cognitive deficits Signs & Symptoms: SHOE TRIMMER findings and recs for nectar thick full liquids with supervision Goals: Patient to consume >75% of meals/supplements Time Frame: Within 72 Hours Tata Daniels, MS,RD, LD, [facility] *[phone] * Damian Hensley MD - 07/02/2018 1:16 PM CDT Associated Order(s): CONSULT REHABILITATION MEDICINE PHYSICIAN Formatting of this note may be different from the original. Rehabilitation Medicine Attending Physician Attestation: Agree with resident. Valdez Anthony is a pleasant 57 y.o. male with PMH of DM Type 2, HTN, HL, right eye blindness, glaucoma, prostate cancer s/p resection, who was admitted upon transfer from [facility] on 07/01/2018 after originally presenting there with sepsis determined to be secondary to UTI complicated by DKA and Atrial Fibrillation and then apparent AMS. [facility] M1 [facility]. He [...] complexity and goals with PT, OT, and SHOE TRIMMER for acute inpatient rehabilitation; however, he is [...] primary SWCM discuss with [facility] trauma coordinator according to the patient 's (and/or [...] a 57 y.o. male admitted to [facility] on 07/01/2018 with the following issues: [...] hours while supine in bed, pressure relief [id number] in seated position, PRAFOs for pressure relief and to prevent contractures Jaycob Ramos, Rehab Consult Pager: [phone] History of Present Illness Hospital Course: Valdez Anthony is a 57 y.o. male with new onset Atrial Fibrillation with RVR, HTN , HLD, T2DM, Diabetic Retinopathy, OD Blindness, Neovascular Glaucoma, Prostate Cancer s/p prostatectomy, Urinary Retention s/p suprapubic catheter that was admitted at [facility] for urosepsis, DKA, A [...] urosepsis. Rehab consulted for post acute rehab/placement. SECURITY PUBLIC SAFETY OFFICER pt was independent and lived at [...] Units/ sodium bicarbonate 650 mg(#) PRN ( Director Diabetes from Rx) Allergies: No Known Allergies Prior Level of Function Prior Function Level Of [place]: Independent with ADLs and functional transfers Lives [...] L spontaneously. Mitt and soft wrist restraints, [place] strap replaced end of session and bed [...] reports that pt completed videoswallow evaluation at [facility], which she states yielded recommendations for [...] Skylar Heart - 07/09/2018 11:04 AM CDT PRINTED CIRCUIT BOARDS LAMINATOR Note: This rewriter printed and placed transfer packet in pt's chart drawer, per request from [facility] Sophia Vaughn. Skylar Heart Microarray Specialist For additional assistance, please contact [facility] Sophia Vaughn *[phone] * Anesthesia Post Op Day 1 - [...] days Todays Date: 07/09/2018 Plan D/c to [facility] today at 1:00pm via facility w/c [...] or Referral ? Discharge Planning Discharge Planning: [facility] WILLEM sent updated clinicals to [facility] at [phone]. Update 10:00am: WILLEM spoke with Perla ([phone]) at [facility] to update. Perla educated that they will be available for transportation today at 1:00pm. WILLEM spoke with Neuro Team to update. WILLEM spoke with bedside RN to update. WILLEM tasked PRINTED CIRCUIT BOARDS LAMINATOR to deliver transfer packet. RN Report: [phone] WILLEM faxed d/c orders to [facility] at [phone]. ? Medication Needs ? Financial ? Legal [...] for the patient. Sophia Vaughn LMSW Phone: [phone] Pager: [phone] * Case Mgmt DC Plan - Sophia Vaughn - 07/08/2018 9:10 AM CDT Formatting of this note may be different from the original. Case Management Progress Note NAME:Valdez Anthony :1959 AGE: 57 y.o. ADMISSION DATE: 07/01/2018 DAYS ADMITTED: LOS: 7 days Todays Date: 07/08/2018 Plan Anticipate d/c to [facility] tomorrow pending pt stability. Interventions WILLEM [...] or Referral ? Discharge Planning Discharge Planning: [facility] WILLEM received and returned message for Angela ([phone]) at [facility] to discuss referral. Update 10:00am: WILLEM spoke with Blanquita ([phone]) at [facility] to update of anticipated d/c timeline. Blanquita educated that they are still reviewing for potential admission and will be contacting pt's to further discuss an admission. However, they will notify WILLEM once decision reached. Update 10:44am: WILLEM spoke with Perla at [facility] to update. Perla educated that they are able to accept for admission and will have their w/c van available for such. ? Medication Needs ? Financial [employer] following for assistance with [employer] Medicaid ariel. ? Legal ? Other Other/None: [...] for the patient. Sophia Vaughn LMSW Phone: [phone] Pager: [phone] * Care Plan - Shira Welch RN [...] Todays Date: 07/07/2018 Plan Anticipate d/c to [facility] tomorrow pending pt stability and facility acceptance. Interventions SW reviewed EMR and met with Neuro team for huddle. GI consulted. Anticipated EGD today. ? Support Support: Pt/Family Updates re:POC or DC Plan, Counseling for Adaptation to Illness, Counseling for Psychosocial issues ? Info or Referral ? Discharge Planning Discharge Planning: [facility] WILLEM left message for Admissions ([phone]) at [facility] to discuss referral. Update 11:40am: WILLEM spoke with Hyacinth ([phone]) at [facility] and they are unable to locate referral. WILLEM agreeable to re-send referral to [phone], which WILLEM completed. Hyacinth educated that she will review and follow up. Hyacinth will also speak with her maple products supervisor to discuss their ability to assist with transportation. Update 1:20pm: SW received message from Hyacinth and they are still unable to locate referral. WILLEM manually faxed referral to [phone], as requested. Update 2:00pm: WILLEM received message from Hyacinth that they only got a portion of the referral. WILLEM re-faxed referral to [phone]. Update 4:00pm: WILLEM received and returned message for Nagela ([phone]) at [facility]. ? Medication Needs ? Financial [...] for the patient. Sophia Vaughn LMSW Phone: [phone] Pager: [phone] * Care Plan - Shira Welch RN [...] Liana Ortiz - 07/06/2018 10:50 AM CDT [facility] Note: Received request from [facility] Sophia Vaughn to fax referrals to the following placements. [facility] was also asked to check wheelchair van costs to the facility. [place] [facility] - $350-375 [facility] - $500-525 [facility] - $400-425 [facility] w/c van - $430 All subject to time, billed democrat, needs, etc. Updated [facility] Liana Ortiz Microarray Specialist For additional assistance please contact [facility] Sophia Vaughn *[phone] * Case Mgmt DC Plan - Sophia Vaughn - 07/06/2018 10:36 AM CDT Formatting of this note may be different from the original. Case Management Progress Note NAME:Valdez Anthony :1959 AGE: 57 y.o. ADMISSION DATE: 07/01/2018 DAYS ADMITTED: LOS: 5 days Todays Date: 07/06/2018 Plan Anticipate d/c to [facility] tomorrow vs Friday pending pt stability and facility acceptance. Interventions SW reviewed EMR and met with Neuro team for huddle. Anticipate GI consult. Continue to monitor hgb. ? Support Support: Pt/Family Updates re:POC or DC Plan, Counseling for Adaptation to Illness, Counseling for Psychosocial issues SW visited pt and Leticia at bedside to discuss DCP. Leticia requested referral to [facility]. SW agreeable and reviewed referral process. SW also reviewed potential private pay cost of w/c van should SNF be unable to assist. Leticia uncertain regarding their ability to private pay, however unwilling to remain in [facility] for SNF stay. SW agreeable to obtaining quote for ongoing assistance. ? Info or Referral ? Discharge Planning Discharge Planning: [facility] SW tasked PRINTED CIRCUIT BOARDS LAMINATOR [facility] SW tasked PRINTED CIRCUIT BOARDS LAMINATOR to check rosenberg of w/c van. ? [...] for the patient. Sophia Vaughn LMSW Phone: [phone] Pager: [phone] * Case Mgmt DC Plan - Sophia [...] or Referral ? Discharge Planning Discharge Planning: [facility] Facility ? Medication Needs ? Financial ? [...] for the patient. Sophia Vaughn LMSW Phone: [phone] Pager: [phone] * Transfer - Ciarra Valentino, DO - [...] s/p suprapubic catheter that was admitted at [facility] for urosepsis, DKA , A [...] Started on ASA. LDL 40, continued on captain room service atrovastatin. PT/OT and Speech consulted. CV: Initially started on Nicardipine ggt for goal SBP <140. Restarted on captain room service lisinopril. Intermittent Afib on telemetry. Restarted on [...] OSH. DKA resolved. Insulin ggt continued. Holding captain room service Levemir and Novolog. Consider Endocrine consult. Significant [...] Discharge Plan: Undetermined Ciarra Valentino DO Pager [phone] * Case Mgmt DC Plan - Sophia Vaughn - 07/01/2018 3:09 PM CDT Case Management Admission Assessment NAME:Valdez Anthony :1959 AGE: 57 y.o. ADMISSION DATE: 07/01/2018 DAYS ADMITTED: LOS: 0 days Todays Date: 07/01/2018 Source of Information: SW visited pt's Leticia and pt's OCTAVIANO Moseley at bedside. Plan Plan: CM Assessment, Assist PRN with SW/NC Services Patient Address/Phone [address] [phone] (home) Emergency Contact Extended Emergency Contact Information Primary Emergency Contact: Suzie English ([facility]) Relation: Relative Secondary Emergency Contact: Leticia Anthony (Judy) [facility] Mobile Relation: Spouse Healthcare Directive [...] (Medicare Part A and B) Secondary Insurance: [place]/[facility] ([facility]) Additional Coverage: VA (fills at [facility]. ) ? Source of Income Source Of Income: SSDI ? Financial Assistance Needed? None Psychosocial Needs ? Mental Health Mental Health History: No ? Substance Use History Substance Use History Screen: No ? Other None Current/Previous Services ? PCP Chris Seay APRN at [facility] ([phone] ext [phone]) ? Pharmacy [facility] [address] [address] ? Durable Medical Equipment Durable Medical Equipment [...] ? Outpatient Therapy PT: No OT: No SHOE TRIMMER: No ? [facility] Facility/Shelter SNF: No NH: No Pt's OCTAVIANO Moseley works at [employer], therefore family understanding of LTC and SNF level of cares. ? Inpatient Rehab IPR: No ? Long-Term Acute Care Hospital LTACH: No ? Acute Hospital Stay Acute Hospital Stay: In the past Was patient's stay within the last 30 days?: No Sophia Vaughn LMSW Phone: [phone] Pager: [phone] * Acute Stroke Response - Alonzo Watt [...] 57 y.o. male with A-Fib (on Coumadin SECURITY PUBLIC SAFETY OFFICER), IDDM, Prostate CA, OD blindness, HLD [...] due to positive occult) - 300mg ASA MT daily - Echocardiogram - MRI head w/o contrast in AM of 07/02 - Monitor telemetry for arrhythmia - NPO - SHOE TRIMMER to eval speech when more alert - PT/OT to eval and treat - Rehab Medicine Consult The patient was seen and discussed with Dr. Gutierrez History of Present Ilness History of Present Illness: Mr. Anthony presented to [facility] on 06/29 with uro-sepsis and DKA. [...] then to IR for EVT. At [facility] he had dropping Hgb and positive [...] language) 2=neither correct 2 1c. 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, digital artist and release non-paretic hand (other 1 step [...] Medications: [MAR Hold] calcium gluconate IV PRN (Director Diabetes from Rx) AND Ionized Calcium PRN AND Notify Physician Ongoing, [MAR Hold] magnesium sulfate PRN AND Magnesium PRN AND Notify Physician Ongoing, [MAR Hold] potassium chloride SR PRN OR [MAR Hold] potassium chloride PRN, [MAR Hold] sodium phosphate IVPB PRN (Director Diabetes from Rx) AND Phosphorus PRN AND Notify [...] Date: 07/01/2018 Attending Physician: Lulu Perry MD Formal Waiter/Waitress(s): Miri Nair Stroke Treatment Time out performed: [...] Sedated from ativan Lulu Perry MD Pager: [phone] * Acute Stroke Response - Hannah Ceballos RN - 07/01/2018 12:14 PM CDT Formatting of this note may be different from the original. RN Stroke Activation Summary Date of Service: 07/01/2018 Valdez Anthony is a 57 y.o. male. : 1960 Allergies: Patient has no known allergies. Patient Arrival: 1118 ASRT Arrival: 1108 Location of Response : [place] [facility] elevator 2nd floor Page Received: 1102 (ETA 10 minutes) EMS Agency: [facility] Outside Hospital: [facility] Clinical Presentation: Decreased LOC, Dysarthria, Left [...] Summary: Report received from MAXINE Pardo at [facility] in [place], [place]. Per report patient last known well today at 0730. At 0825 she noted patient to be less responsive with left side flaccid, dysarthria and left facial droop. Patient transferred to [facility] and upon arrival had decreased LOC. [...] dressing applied at 1228. Patient transported to [place] [facility], VSS and no complications noted. Report given to MAXINE Cooley. CT/CTP/CTA/IR: CTA/CTP time: 1125 CTA/CTP Interpretation time: 1145 N/A Plan: Patient admitted to [place] [facility] post procedure for further evaluation and [...] MG/DL [facility] Performing Organization Address [facility] Phone Number [facility] MAIN [facility] [address] [place] [address] * POC GLUCOSE (07/09/2018 3:34 PM) Glucose, POC 66 (L) 70 - 100 MG/DL [facility] Performing Organization Address [facility] Phone Number [facility] [address] [place] [address] * POC GLUCOSE (07/09/2018 3:18 PM) Glucose, POC 69 (L) 70 - 100 MG/DL [facility] Performing Organization Address [facility] Phone Number [facility] [address] [place] [address] * POC GLUCOSE (07/09/2018 1:49 PM) Glucose, POC 136 (H) 70 - 100 MG/DL [facility] Performing Organization Address [facility] Phone Number [facility] [address] [place] [address] * POC GLUCOSE (07/09/2018 11:40 AM) Glucose, POC 158 (H) 70 - 100 MG/DL [facility] Performing Organization Address [facility] Phone Number [facility] [address] [place] [address] * POC GLUCOSE (07/09/2018 8:35 AM) Glucose, POC 104 (H) 70 - 100 MG/DL [facility] Performing Organization Address [facility] Phone Number [facility] [address] [place] [address] * COMPREHENSIVE METABOLIC PANEL (07/09/2018 5:47 AM) [...] for questions. Specimen Blood Performing Organization Address [facility] Phone Number [facility] [address] [place] [address] * CBC AND DIFF (07/09/2018 5:47 AM) [...] LAB Eosinophils 1 0 - 5 % [facility] Basophils 0 0 - 2 % [facility] Absolute Neutrophil Count 11.70 (H) 1.8 - 7.0 K/[facility] MAIN [facility] Absolute Lymph Count 2.10 1.0 - 4.8 K/[facility] MA[facility] Absolute Monocyte Count 1.30 (H) 0 - 0.80 K/UL [facility] Absolute Eosinophil Count 0.20 0 - 0.45 K/[facility] Absolute Basophil Count 0.00 0 - 0.20 K/[facility] MAIN [facility] Specimen Blood Performing Organization Address City/[facility] Phone Number MAIN LAB [address] [place] [address] * POC GLUCOSE (07/09/2018 3:09 AM) Glucose, POC 151 (H) 70 - 100 MG/DL MAIN LAB Performing Organization Address City/[facility] Phone Number MAIN LAB [address] [place] [address] * POC GLUCOSE (07/09/2018 1:10 AM) Glucose, POC 80 70 - 100 MG/DL [facility] Performing Organization Address City/[facility] Phone Number MAIN LAB [address] [place] [address] * CULTURE-BLOOD W/SENSITIVITY (07/08/2018 10:25 PM) Battery Name BLOOD CULTURE [facility] Specimen Description BLOOD MAIN LAB LEFT HAND Special Requests NONE MAIN LAB Culture NO GROWTH 5 DAYS MAIN LAB Report Status FINAL MAIN LAB 07/14/2018 Specimen Blood Performing Organization Address City/[facility]/Zipcode Phone Number MAIN LAB [address] [place] [address] * POC GLUCOSE (07/08/2018 9:52 PM) Glucose, POC 96 70 - 100 MG/DL [facility] Performing Organization Address City/[facility]/Zipcode Phone Number MAIN LAB [address] [place] [address] * CULTURE-BLOOD W/SENSITIVITY (07/08/2018 8:20 PM) Battery Name BLOOD CULTURE MAIN LAB Specimen Description BLOOD MAIN LAB LEFT ANTECUBITAL Special Requests NONE MAIN LAB Culture NO GROWTH 5 DAYS MAIN LAB Report Status FINAL MAIN LAB 07/14/2018 Specimen Blood Performing Organization Address City/[facility]/Zipcode Phone Number MAIN LAB [address] [place] [address] * POC GLUCOSE (07/08/2018 5:56 PM) Glucose, POC 129 (H) 70 - 100 MG/DL [facility] Performing Organization Address City/[facility] Phone Number MAIN LAB [address] [place] [address] * SURGICAL PATHOLOGY (07/08/2018 4:34 PM) PATHOLOGY REPORT [facility] [email or web address] Department of Pathology and Laboratory Medicine [address] [place] [address] Surgical Pathology Office:[phone] [phone] SURGICAL PATHOLOGY REPORT NAME: VALDEZ ANTHONY SURG PATH #: [id number] MR #: [id number] SPECIMEN CLASS: SR BILLING #: [id number] ALT ID #:LOCATION: DISCHARGED DATE OF PROCEDURE: [...] MAIN LAB Specimen Urine Performing Organization Address [facility] Phone Number [facility] [address] [place] [address] * URINALYSIS MICROSCOPIC REFLEX TO CULTURE (07/08/2018 4:09 PM) WBCs,UA 0-2 0 - 2 /HPF [facility] RBCs,UA 0-2 0 - 3 /HPF [facility] Comment,UA Urine submitted for reflex [facility] culture if criteria are met:WBC>10, positive nitrite and/or >=1+ leukocyte esterase. If quantity is not sufficient, an addendum will follow. Specimen Urine Performing Organization Address [facility] Phone Number [facility] [address] [place] [phone] * URINALYSIS DIPSTICK REFLEX TO CULTURE (07/08/2018 4:09 PM) Color,UA STRAW [facility] Turbidity,UA CLEAR CLEAR-CLEAR [facility] Specific [place]-Urine 1.005 1.003 - 1.035 [facility] MAIN LAB [...] MAIN LAB Specimen Urine Performing Organization Address [facility] Phone Number MAIN LAB [address] [place] [address] * CHEST SINGLE VIEW (07/08/2018 2:15 PM) [...] on 07/08/2018 2:17 PM. Performing Organization Address City/[facility]/Zipcode Phone Number [facility] RAD RESULTS * POC GLUCOSE (07/08/2018 1:57 PM) Glucose, POC 75 70 - 100 MG/DL [facility] Performing Organization Address City/[facility] Phone Number [facility] MAIN [facility] [address] [place] [address] * POC GLUCOSE (07/08/2018 1:21 PM) Glucose, POC 67 (L) 70 - 100 MG/DL [facility] Performing Organization Address City/[facility]/Zipcode Phone Number [facility] [address] [place] [address] * POC GLUCOSE (07/08/2018 11:46 AM) Glucose, POC 164 (H) 70 - 100 MG/DL [facility] Performing Organization Address City/[facility] Phone Number [facility] [address] [place] [address] * POC GLUCOSE (07/08/2018 11:22 AM) Glucose, POC 40 (LL) 70 - 100 MG/DL MAIN LAB Performing Organization Address City/State/Zipcode Phone Number MAIN LAB [address] [place] [address] * EGD REPORT (07/08/2018 10:48 AM) Provation Report Patient Name: Raj DIMAS OTHER RESULTS Procedure Date: 07/08/2018 10:48 AM CSN: [id number] Date of : 1960 Gender: Male Attending Physician: Clara Carolina MD Procedure: Upper GI endoscopy Indications: Anemia (Mixed picture of anemia of chronic disease + Iron deficiency anemia), new onset of Afib and not on AC. Providers: Clara Carolina MD (Doctor), Roberto Dutta MD (Fellow), Alvaro Banegas (Nurse), Minna Jiménez RN (Nurse), Abisai Burden, [employer] Principal ([employer]) Referring Physician: Referral Self Medications: Monitored Anesthesia [...] 55 seconds Procedure Code(s): --- Professional --- 32368, Esophagogastroduodenoscopy, flexible, transoral; with biopsy, single or multiple Diagnosis Code(s): --- Professional --- K44.9, Diaphragmatic hernia without obstruction or gangrene K31.89, Other diseases of stomach and duodenum D50.0, Iron deficiency anemia secondary to blood loss (chronic) CPT copyright 2016 [employer]. All rights reserved. The codes documented in this report are preliminary and upon facility worker review may be revised to meet current [...] OTHER RESULTS Procedure Date: 07/08/2018 10:47 AM [facility]: [id number] Date of : 1960 Gender: Male Attending Physician: Clara Carolina MD Procedure: Colonoscop y Indications: Anemia (Mixed picture of anemia of chronic disease + Iron deficiency anemia), new onset of Afib and not on AC. Providers: Clara Carolina MD (Doctor), Roberto Dutta MD (Fellow), Alvaro Banegas (Nurse), Minna Jiménez RN (Nurse), [employer]is[employer] ([employer] Principal) Referring Physician: Gerard Salazar MD Medications: Monitored [...] 15 seconds Procedure Code(s): --- Professional --- 62356, Colonoscopy, flexible; diagnostic, including collection of specimen(s) by brushing or washing, when performed (separate procedure) Diagnosis Code(s): --- Professional --- D50.0, Iron deficiency anemia secondary to blood loss (chronic) CPT copyright 2016 [employer]. All rights reserved. The codes documented in this report are preliminary and upon facility worker review may be revised to meet current [...] Address City/State/Zipcode Phone Number MAIN LAB [address] [place] [address] * PROCALCITONIN (07/08/2018 5:53 AM) Procalcitonin 0.13 (H) <0.10 NG/ML [facility] Performing Organization Address [facility] Phone Number [facility] [address] [place] [address] * COMPREHENSIVE METABOLIC PANEL (07/08/2018 5:53 AM) [...] for questions. Specimen Blood Performing Organization Address [facility]/Zipcode Phone Number [facility] MAIN [facility] [address] [place] [address] * CBC AND DIFF (07/08/2018 5:53 AM) [...] MAIN LAB Specimen Blood Performing Organization Address City/[facility] Phone Number MAIN LAB [address] [place] [address] * POC GLUCOSE (07/07/2018 9:26 PM) Glucose, POC 176 (H) 70 - 100 MG/DL [facility]IN [facility] Performing Organization Address City/[facility] Phone Number MAIN LAB [address] [place] [address] * POC GLUCOSE (07/07/2018 5:54 PM) Glucose, POC 111 (H) 70 - 100 MG/DL [facility] MAIN [facility] Performing Organization Address City/[facility] Phone Number MAIN LAB [address] [place] [address] * POC GLUCOSE (07/07/2018 11:30 AM) Glucose, POC 90 70 - 100 MG/DL [facility] MAIN [facility] Performing Organization Address City/[facility] Phone Number MAIN LAB [address] [place] [address] * CBC AND DIFF (07/07/2018 8:00 AM) [...] 1.90 (H) 0 - 0.80 K/UL [facility] Absolute Eosinophil Count 0.20 0 - 0.45 K/UL [facility] MAIN LAB Absolute Basophil Count 0.10 0 - 0.20 K/UL MAIN LAB Specimen Blood Performing Organization Address City/State/Zipcode Phone Number [facility] [address] [place] [address] * POC GLUCOSE (07/07/2018 7:49 AM) Glucose, POC 182 (H) 70 - 100 MG/DL MAIN LAB Performing Organization Address City/[facility] Phone Number [facility] [address] [place] [address] * COMPREHENSIVE METABOLIC PANEL (07/07/2018 5:45 AM) [...] Clinical Pharmacist for questions. Performing Organization Address City/[facility]/Zipcode Phone Number MAIN LAB [address] [place] [address] * HEMOGLOBIN (07/07/2018 5:45 AM) Hemoglobin 9.5 (L) 13.5 - 16.5 GM/DL MAIN LAB Comment: Corrected on 07/09 AT 1021: previously reported as DUPLICATE ORDER, Corrected on 07/07 AT 0811: previously reported as 9.5 Specimen Blood Performing Organization Address City/[facility] Phone Number MAIN LAB [address] [place] [address] * HEMOGLOBIN (07/06/2018 10:45 PM) Hemoglobin 10.5 (L) 13.5 - 16.5 GM/DL MAIN LAB Specimen Blood Performing Organization Address City/[facility]/Zipcode Phone Number MAIN LAB [address] [place] [address] * OCCULT BLOOD NON COLON CANCER SCREEN (07/06/2018 10:45 PM) Battery Name OCCULT BLOOD SCREEN MAIN LAB Specimen Description FECES [facility] MAIN [facility] Special Requests NONE [facility] MAIN [facility] Occult Blood NEGATIVE MAIN LAB Report Status FINAL MAIN LAB 07/06/2018 Specimen Stool - Feces Performing Organization Address City/[facility]/Zipcode Phone Number MAIN LAB [address] [place] [address] * POC GLUCOSE (07/06/2018 9:04 PM) Glucose, POC 115 (H) 70 - 100 MG/DL [facility] MAIN [facility] Performing Organization Address City/[facility]/Zipcode Phone Number MAIN LAB [address] [place] [address] * POC GLUCOSE (07/06/2018 5:11 PM) Glucose, POC 150 (H) 70 - 100 MG/DL [facility] MAIN [facility] Performing Organization Address City/[facility]/Zipcode Phone Number MAIN LAB [address] [place] [address] * POC GLUCOSE (07/06/2018 2:36 PM) Glucose, POC 196 (H) 70 - 100 MG/DL MAIN LAB Performing Organization Address City/[facility]/Zipcode Phone Number MAIN LAB [address] [place] [address] * HEMOGLOBIN (07/06/2018 1:31 PM) Hemoglobin 8.9 (L) 13.5 - 16.5 GM/DL MAIN LAB Specimen Blood Performing Organization Address City/[facility]/Zipcode Phone Number MAIN LAB [address] [place] [address] * POC GLUCOSE (07/06/2018 11:49 AM) Glucose, POC 153 (H) 70 - 100 MG/DL MAIN LAB Performing Organization Address City/[facility]/Zipcode Phone Number MAIN LAB [address] [place] [address] * POC GLUCOSE (07/06/2018 7:29 AM) Glucose, POC 130 (H) 70 - 100 MG/DL MAIN LAB Performing Organization Address City/[facility]/Zipcode Phone Number MAIN LAB [address] [place] [address] * HEMOGLOBIN (07/06/2018 4:27 AM) Hemoglobin 9.1 (L) 13.5 - 16.5 GM/DL MAIN LAB Specimen Blood Performing Organization Address City/[facility]/Zipcode Phone Number MAIN LAB [address] [place] [address] * CBC (07/06/2018 4:27 AM) White Blood [...] MAIN LAB Specimen Blood Performing Organization Address City/[facility] Phone Number [facility] [address] [place] [address] * BASIC METABOLIC PANEL (07/06/2018 4:27 AM) [...] Pharmacist for questions. eGFR >60 >60 mL/min [facility] Comment: The eGFR is not validated for use in drug dosing adjustments.Continue to use estimated creatinine clearance per dosing reference text.Please contact the Clinical Pharmacist for questions. Specimen Blood Performing Organization Address City/[facility] Phone Number [facility] [address] [place] [address] * POC GLUCOSE (07/06/2018 2:35 AM) Glucose, POC 132 (H) 70 - 100 MG/DL MAIN LAB Performing Organization Address City/[facility]/Zipcode Phone Number [facility] MAIN [facility] [address] [place] [address] * POC GLUCOSE (07/05/2018 10:09 PM) Glucose, POC 89 70 - 100 MG/DL [facility] MAIN [facility] Performing Organization Address City/[facility]/Zipcode Phone Number [facility] MAIN [facility] [address] [place] [address] * HEMOGLOBIN (07/05/2018 9:40 PM) Hemoglobin 10.1 (L) 13.5 - 16.5 GM/DL MAIN LAB Specimen Blood Performing Organization Address City/[facility] Phone Number [facility] MAIN [facility] [address] [place] [address] * POC GLUCOSE (07/05/2018 9:37 PM) Glucose, POC 77 70 - 100 MG/DL [facility] MAIN [facility] Performing Organization Address City/[facility] Phone Number MAIN LAB [address] [place] [address] * POC GLUCOSE (07/05/2018 8:15 PM) Glucose, POC 81 70 - 100 MG/DL [facility] MAIN [facility] Performing Organization Address City/[facility] Phone Number MAIN LAB [address] [place] [address] * CULTURE-URINE W/SENSITIVITY (07/05/2018 6:45 PM) Battery Name URINE CULTURE [facility] MAIN [facility] Specimen Description URINE [facility]IN [facility] Special Requests NONE [facility] MAIN [facility] Culture NO GROWTH [facility] MAIN [facility] Report Status FINAL [facility] MAIN LAB 07/06/2018 Specimen Urine Performing Organization Address City/[facility] Phone Number [facility] [address] [place] [address] * UA REFLEX CULTURE LABEL (07/05/2018 6:45 PM) UA Reflex Culture LAB LABEL [facility] MAIN [facility] Specimen Urine Performing Organization Address City/[facility]/Zipcode Phone Number [facility] MAIN [facility] [address] [place] [address] * URINALYSIS MICROSCOPIC REFLEX TO CULTURE (07/05/2018 [...] MAIN LAB Specimen Urine Performing Organization Address City/[facility] Phone Number [facility] [address] [place] [address] * URINALYSIS DIPSTICK REFLEX TO CULTURE (07/05/2018 6:45 PM) Color,UA YELLOW [facility] MAIN [facility] Turbidity,UA 2+ (A) CLEAR-CLEAR [facility] MAIN LAB Specific [place]-Urine 1.017 1.003 - 1.035 [facility] MAIN LAB [...] MAIN LAB Specimen Urine Performing Organization Address [facility] Phone Number [facility] MAIN [facility] [address] [place] [address] * POC GLUCOSE (07/05/2018 4:37 PM) Glucose, POC 79 70 - 100 MG/DL [facility]IN [facility] Performing Organization Address [facility] Phone Number [facility] [address] [place] [address] * POC GLUCOSE (07/05/2018 2:02 PM) Glucose, POC 92 70 - 100 MG/DL [facility] MAIN [facility] Performing Organization Address [facility] Phone Number [facility] [address] [place] [address] * HEMOGLOBIN (07/05/2018 2:00 PM) Hemoglobin 9.6 (L) 13.5 - 16.5 GM/DL [facility] MAIN [facility] Specimen Blood Performing Organization Address City/[facility] Phone Number [facility] [address] [place] [address] * POC GLUCOSE (07/05/2018 11:32 AM) Glucose, POC 102 (H) 70 - 100 MG/DL [facility]IN [facility] Performing Organization Address [facility] Phone Number [facility] [address] [place] [address] * ABDOMEN AP ONLY (07/05/2018 9:20 AM) [...] on 07/05/2018 10:21 AM. Performing Organization Address City/[facility] Phone Number [facility] RAD RESULTS * POC GLUCOSE (07/05/2018 6:56 AM) Glucose, POC 139 (H) 70 - 100 MG/DL [facility] MAIN [facility] Performing Organization Address City/[facility] Phone Number [facility] [address] [place] [address] * CBC (07/05/2018 5:50 AM) White Blood [...] MAIN LAB Specimen Blood Performing Organization Address City/[facility]/Zipcode Phone Number MAIN LAB [address] [place] [address] * POC GLUCOSE (07/05/2018 5:29 AM) Glucose, POC 125 (H) 70 - 100 MG/DL [facility] MAIN [facility] Performing Organization Address City/[facility] Phone Number MAIN LAB [address] [place] [address] * BASIC METABOLIC PANEL (07/05/2018 5:25 AM) [...] City/State/Zipcode Phone Number [facility] MAIN [facility] [address] [place] [address] * POC GLUCOSE (07/05/2018 2:37 AM) Glucose, POC 103 (H) 70 - 100 MG/DL [facility]IN [facility] Performing Organization Address City/State/Zipcode Phone Number [facility]IN [facility] [address] [place] [address] * POC GLUCOSE (07/05/2018 1:31 AM) Glucose, POC 94 70 - 100 MG/DL [facility]IN [facility] Performing Organization Address City/State/Zipcode Phone Number [facility]IN [facility] [address] [place] [address] * POC GLUCOSE (07/05/2018 12:41 AM) Glucose, POC 121 (H) 70 - 100 MG/DL [facility] MAIN [facility] Performing Organization Address City/[facility]/Zipcode Phone Number MAIN LAB [address] [place] [address] * POC GLUCOSE (07/04/2018 11:19 PM) Glucose, POC 84 70 - 100 MG/DL [facility] MAIN [facility] Performing Organization Address City/[facility]/Zipcode Phone Number MAIN LAB [address] [place] [address] * HEMOGLOBIN (07/04/2018 9:30 PM) Hemoglobin 13.5 13.5 - 16.5 GM/DL [facility] MAIN [facility] Specimen Blood Performing Organization Address City/[facility]/Zipcode Phone Number MAIN LAB [address] [place] [address] * POC GLUCOSE (07/04/2018 9:15 PM) Glucose, POC 105 (H) 70 - 100 MG/DL [facility] MAIN [facility] Performing Organization Address City/[facility]/Zipcode Phone Number [facility]IN [facility] [address] [place] [address] * POC GLUCOSE (07/04/2018 7:50 PM) Glucose, POC 164 (H) 70 - 100 MG/DL [facility]IN [facility] Performing Organization Address City/State/Zipcode Phone Number [facility]IN [facility] [address] [place] [address] * POC GLUCOSE (07/04/2018 7:23 PM) Glucose, POC 44 (LL) 70 - 100 MG/DL [facility]IN [facility] Performing Organization Address City/[facility] Phone Number [facility] [address] [place] [address] * POC GLUCOSE (07/04/2018 5:10 PM) Glucose, POC 96 70 - 100 MG/DL [facility] MAIN [facility] Performing Organization Address City/[facility] Phone Number [facility] [address] [place] [address] * IRON + BINDING CAPACITY + %SAT+ FERRITIN (07/04/2018 2:20 PM) Iron 49 (L) 50 - 185 MCG/DL [facility] MAIN [facility] Iron Binding-TIBC 212 (L) 270 - 380 MCG/DL [facility]IN [facility] % Saturation 23 (L) 28 - 42 % [facility] MAIN [facility] Ferritin 383 (H) 30 - 300 NG/ML [facility] MAIN [facility] Specimen Blood Performing Organization Address City/[facility] Phone Number [facility] [address] [place] [address] * POC GLUCOSE (07/04/2018 2:19 PM) Glucose, POC 137 (H) 70 - 100 MG/DL [facility] MAIN [facility] Performing Organization Address City/[facility] Phone Number [facility] [address] [place] [address] * POC GLUCOSE (07/04/2018 1:42 PM) Glucose, POC 114 (H) 70 - 100 MG/DL [facility]IN [facility] Performing Organization Address City/[facility] Phone Number [facility] [address] [place] [address] * POC GLUCOSE (07/04/2018 1:16 PM) Glucose, POC 55 (L) 70 - 100 MG/DL [facility]IN [facility] Performing Organization Address City/[facility]/Zipcode Phone Number [facility] MAIN [facility] [address] [place] [address] * HEMOGLOBIN (07/04/2018 1:15 PM) Hemoglobin 9.4 (L) 13.5 - 16.5 GM/DL [facility] MAIN [facility] Specimen Blood Performing Organization Address City/State/Zipcode Phone Number MAIN LAB [address] [place] [address] * POC GLUCOSE (07/04/2018 12:52 PM) Glucose, POC 66 (L) 70 - 100 MG/DL [facility]IN [facility] Performing Organization Address City/State/Zipcode Phone Number MAIN LAB [address] [place] [address] * POC GLUCOSE (07/04/2018 12:19 PM) Glucose, POC 66 (L) 70 - 100 MG/DL [facility] MAIN [facility] Performing Organization Address City/State/Zipcode Phone Number MAIN LAB [address] [place] [address] * POC GLUCOSE (07/04/2018 12:17 PM) Glucose, POC 59 (L) 70 - 100 MG/DL [facility] MAIN [facility] Performing Organization Address City/[facility]/Zipcode Phone Number MAIN LAB [address] [place] [address] * POC GLUCOSE (07/04/2018 10:28 AM) Glucose, POC 144 (H) 70 - 100 MG/DL MAIN LAB Performing Organization Address City/[facility]/Zipcode Phone Number MAIN LAB [address] [place] [address] * POC GLUCOSE (07/04/2018 9:31 AM) Glucose, POC 197 (H) 70 - 100 MG/DL MAIN LAB Performing Organization Address City/[facility]/Zipcode Phone Number MAIN LAB [address] [place] [address] * POC GLUCOSE (07/04/2018 8:38 AM) Glucose, POC 184 (H) 70 - 100 MG/DL [facility] MAIN [facility] Performing Organization Address City/[facility]/Zipcode Phone Number MAIN LAB [address] [place] [address] * POC GLUCOSE (07/04/2018 7:29 AM) Glucose, POC 150 (H) 70 - 100 MG/DL [facility]IN [facility] Performing Organization Address City/State/Zipcode Phone Number MAIN LAB [address] [place] [address] * POC GLUCOSE (07/04/2018 6:31 AM) Glucose, POC 119 (H) 70 - 100 MG/DL [facility] MAIN [facility] Performing Organization Address [facility] Phone Number MAIN LAB [address] [place] [address] * CBC (07/04/2018 5:47 AM) White Blood [...] MAIN LAB Specimen Blood Performing Organization Address City/[facility] Phone Number [facility] [address] [place] [address] * BASIC METABOLIC PANEL (07/04/2018 5:47 AM) [...] for questions. Specimen Blood Performing Organization Address City/[facility] Phone Number [facility] [address] [place] [address] * POC GLUCOSE (07/04/2018 5:36 AM) Glucose, POC 126 (H) 70 - 100 MG/DL [facility] MAIN [facility] Performing Organization Address City/[facility] Phone Number MAIN LAB [address] [place] [address] * POC GLUCOSE (07/04/2018 4:36 AM) Glucose, POC 94 70 - 100 MG/DL [facility] MAIN [facility] Performing Organization Address City/[facility] Phone Number MAIN LAB [address] [place] [address] * POC GLUCOSE (07/04/2018 3:24 AM) Glucose, POC 120 (H) 70 - 100 MG/DL [facility] MAIN [facility] Performing Organization Address [facility] Phone Number MAIN LAB [address] [place] [address] * POC GLUCOSE (07/04/2018 2:14 AM) Glucose, POC 112 (H) 70 - 100 MG/DL MAIN LAB Performing Organization Address [facility] Phone Number MAIN LAB [address] [place] [address] * POC GLUCOSE (07/04/2018 12:37 AM) Glucose, POC 126 (H) 70 - 100 MG/DL MAIN LAB Performing Organization Address [facility] Phone Number MAIN LAB [address] [place] [address] * BLOOD TYPE CONFIRMATION - ORDER ONLY IF REQUESTED BY LAB (07/04/2018 12:13 AM) ABO/RH(D) O NEG MAIN LAB Specimen Blood Performing Organization Address [facility] Phone Number MAIN LAB [address] [place] [address] * TYPE & CROSSMATCH (07/03/2018 11:48 PM) Units Ordered 1 MAIN LAB Crossmatch Expires 07/06/2018 MAIN LAB Record Check 2ND TYPE REQUIRED MAIN LAB ABO/RH(D) O NEG MAIN LAB Antibody Screen NEG MAIN LAB Electronic Crossmatch YES MAIN LAB Unit Number [id number] MAIN LAB Blood Component Type RBC,CPDA,LEUKO REDUCED MAIN LAB Unit Division 0 MAIN LAB Status OF Unit TRANSFUSED MAIN LAB Transfusion Status OK TO TRANSFUSE MAIN LAB Crossmatch Result COMPATIBLE,ELECTRONIC MAIN LAB Specimen Blood Performing Organization Address City/[facility]/Zipcode Phone Number MAIN LAB [address] [place] [address] * POC GLUCOSE (07/03/2018 11:21 PM) Glucose, POC 197 (H) 70 - 100 MG/DL [facility] MAIN [facility] Performing Organization Address City/State/Zipcode Phone Number MAIN LAB [address] [place] [address] * POC GLUCOSE (07/03/2018 10:12 PM) Glucose, POC 218 (H) 70 - 100 MG/DL [facility] MAIN [facility] Performing Organization Address City/[facility]/Zipcode Phone Number MAIN LAB [address] [place] [address] * HEMOGLOBIN (07/03/2018 10:02 PM) Hemoglobin 6.8 (L) 13.5 - 16.5 GM/DL MAIN LAB Specimen Blood Performing Organization Address City/[facility]/Zipcode Phone Number MAIN LAB [address] [place] [address] * POC GLUCOSE (07/03/2018 9:19 PM) Glucose, POC 187 (H) 70 - 100 MG/DL [facility] MAIN [facility] Performing Organization Address City/[facility]/Zipcode Phone Number MAIN LAB [address] [place] [address] * POC GLUCOSE (07/03/2018 7:40 PM) Glucose, POC 113 (H) 70 - 100 MG/DL MAIN LAB Performing Organization Address City/[facility]/Zipcode Phone Number MAIN LAB [address] [place] [address] * POC GLUCOSE (07/03/2018 6:37 PM) Glucose, POC 143 (H) 70 - 100 MG/DL [facility] MAIN [facility] Performing Organization Address City/[facility]/Zipcode Phone Number MAIN LAB [address] [place] [address] * POC GLUCOSE (07/03/2018 5:31 PM) Glucose, POC 157 (H) 70 - 100 MG/DL [facility] MAIN [facility] Performing Organization Address City/State/Zipcode Phone Number [facility] MAIN [facility] [address] [place] [address] * POC GLUCOSE (07/03/2018 4:35 PM) Glucose, POC 190 (H) 70 - 100 MG/DL [facility] MAIN [facility] Performing Organization Address City/State/Zipcode Phone Number [facility] MAIN [facility] [address] [place] [address] * POC GLUCOSE (07/03/2018 3:36 PM) Glucose, POC 190 (H) 70 - 100 MG/DL [facility] MAIN [facility] Performing Organization Address City/State/Zipcode Phone Number MAIN LAB [address] [place] [address] * HEMOGLOBIN (07/03/2018 3:25 PM) Hemoglobin 7.2 (L) 13.5 - 16.5 GM/DL [facility] MAIN LAB Specimen Blood Performing Organization Address City/State/Zipcode Phone Number MAIN LAB [address] [place] [address] * POC GLUCOSE (07/03/2018 2:22 PM) Glucose, POC 176 (H) 70 - 100 MG/DL [facility] MAIN [facility] Performing Organization Address City/[facility]/Zipcode Phone Number MAIN LAB [address] [place] [address] * POC GLUCOSE (07/03/2018 1:24 PM) Glucose, POC 254 (H) 70 - 100 MG/DL [facility] MAIN [facility] Performing Organization Address City/State/Zipcode Phone Number MAIN LAB [address] [place] [address] * POC GLUCOSE (07/03/2018 12:20 PM) Glucose, POC 307 (H) 70 - 100 MG/DL [facility] MAIN [facility] Performing Organization Address City/State/Zipcode Phone Number MAIN LAB [address] [place] [address] * POC GLUCOSE (07/03/2018 10:45 AM) Glucose, POC 268 (H) 70 - 100 MG/DL [facility] MAIN [facility] Performing Organization Address City/State/Zipcode Phone Number MAIN LAB [address] [place] [address] * POC GLUCOSE (07/03/2018 9:22 AM) Glucose, POC 233 (H) 70 - 100 MG/DL [facility] MAIN [facility] Performing Organization Address City/State/[facility] Phone Number [facility] LAB [address] [place] [address] * SWALLOW MOTION SERIES (07/03/2018 8:59 AM) [...] on 07/03/2018 9:08 AM. Performing Organization Address [facility] Phone Number RAD RESULTS * POC GLUCOSE (07/03/2018 8:04 AM) Glucose, POC 156 (H) 70 - 100 MG/DL [facility] MAIN LAB Performing Organization Address [facility] Phone Number [facility] MAIN LAB [address] [place] [address] * ECG-SCAN (07/03/2018 7:35 AM) Narrative Performed At Ordered by an unspecified provider. * POC GLUCOSE (07/03/2018 5:03 AM) Glucose, POC 109 (H) 70 - 100 MG/DL [facility] MAIN LAB Performing Organization Address [facility] Phone Number [facility] MAIN LAB [address] [place] [address] * CBC (07/03/2018 4:11 AM) White Blood Cells 13.4 (H) 4.5 - 11.0 K/UL MAIN LAB RBC 2.57 (L) 4.4 - 5.5 M/UL MAIN LAB Hemoglobin 7.6 (L) 13.5 - 16.5 GM/DL [facility] MAIN LAB Hematocrit 22.7 (L) 40 - 50 % [facility] MAIN LAB MCV 88.3 80 - 100 FL [facility] MAIN LAB MCH 29.5 26 - 34 PG MAIN LAB MCHC 33.4 32.0 - 36.0 G/DL MAIN LAB RDW 14.1 11 - 15 % [facility] MAIN LAB Platelet Count 395 150 - 400 K/UL [facility] MAIN LAB MPV 8.7 7 - 11 FL [facility] MAIN LAB Specimen Blood Performing Organization Address [facility] Phone Number [facility] MAIN LAB [address] [place] [address] * BASIC METABOLIC PANEL (07/03/2018 4:11 AM) [...] Address City/State/Zipcode Phone Number MAIN LAB [address] [place] [address] * POC GLUCOSE (07/03/2018 3:57 AM) Glucose, POC 132 (H) 70 - 100 MG/DL [facility] MAIN [facility] Performing Organization Address City/[facility]/Zipcode Phone Number MAIN LAB [address] [place] [address] * POC GLUCOSE (07/03/2018 3:06 AM) Glucose, POC 145 (H) 70 - 100 MG/DL [facility] MAIN [facility] Performing Organization Address City/State/Zipcode Phone Number MAIN LAB [address] [place] [address] * POC GLUCOSE (07/03/2018 2:01 AM) Glucose, POC 154 (H) 70 - 100 MG/DL [facility] MAIN [facility] Performing Organization Address City/State/Zipcode Phone Number MAIN LAB [address] [place] [address] * POC GLUCOSE (07/03/2018 1:05 AM) Glucose, POC 112 (H) 70 - 100 MG/DL [facility] MAIN LAB Performing Organization Address City/State/Zipcode Phone Number MAIN LAB [address] [place] [address] * POC GLUCOSE (07/03/2018 12:35 AM) Glucose, POC 98 70 - 100 MG/DL [facility] Performing Organization Address City/State/Zipcode Phone Number [facility] [address] [place] [address] * POC GLUCOSE (07/03/2018 12:13 AM) Glucose, POC 78 70 - 100 MG/DL [facility] Performing Organization Address City/State/Zipcode Phone Number MAIN LAB [address] [place] [address] * POC GLUCOSE (07/02/2018 11:03 PM) Glucose, POC 102 (H) 70 - 100 MG/DL [facility] Performing Organization Address City/State/Zipcode Phone Number MAIN LAB [address] [place] [address] * POC GLUCOSE (07/02/2018 9:56 PM) Glucose, POC 184 (H) 70 - 100 MG/DL [facility] Performing Organization Address City/State/Zipcode Phone Number MAIN LAB [address] [place] [address] * POC GLUCOSE (07/02/2018 9:36 PM) Glucose, POC 49 (LL) 70 - 100 MG/DL [facility] Performing Organization Address City/State/Zipcode Phone Number MAIN LAB [address] [place] [address] * POC GLUCOSE (07/02/2018 9:32 PM) Glucose, POC 50 (L) 70 - 100 MG/DL [facility] Performing Organization Address City/State/Zipcode Phone Number MAIN LAB [address] [place] [address] * POC GLUCOSE (07/02/2018 9:13 PM) Glucose, POC 59 (L) 70 - 100 MG/DL [facility] Performing Organization Address City/State/Zipcode Phone Number MAIN LAB [address] [place] [address] * POC GLUCOSE (07/02/2018 9:11 PM) Glucose, POC 58 (L) 70 - 100 MG/DL [facility] Performing Organization Address City/State/Zipcode Phone Number MAIN LAB [address] [place] [address] * POC GLUCOSE (07/02/2018 7:58 PM) Glucose, POC 121 (H) 70 - 100 MG/DL [facility] Performing Organization Address City/State/Zipcode Phone Number MAIN LAB [address] [place] [address] * POC GLUCOSE (07/02/2018 6:56 PM) Glucose, POC 162 (H) 70 - 100 MG/DL [facility] Performing Organization Address City/State/Zipcode Phone Number MAIN LAB [address] [place] [address] * POC GLUCOSE (07/02/2018 6:07 PM) Glucose, POC 180 (H) 70 - 100 MG/DL [facility] Performing Organization Address City/State/Zipcode Phone Number MAIN LAB [address] [place] [address] * POC GLUCOSE (07/02/2018 4:52 PM) Glucose, POC 195 (H) 70 - 100 MG/DL [facility] Performing Organization Address City/[facility] Phone Number [facility] [address] [place] [address] * POC GLUCOSE (07/02/2018 4:24 PM) Glucose, POC 204 (H) 70 - 100 MG/DL [facility] Performing Organization Address City/[facility]/Zipcode Phone Number MAIN LAB [address] [place] [address] * POC GLUCOSE (07/02/2018 3:09 PM) Glucose, POC 212 (H) 70 - 100 MG/DL [facility] Performing Organization Address City/State/Zipcode Phone Number MAIN LAB [address] [place] [address] * POC GLUCOSE (07/02/2018 2:13 PM) Glucose, POC 204 (H) 70 - 100 MG/DL [facility] Performing Organization Address City/State/Zipcode Phone Number MAIN LAB [address] [place] [address] * POC GLUCOSE (07/02/2018 12:59 PM) Glucose, POC 235 (H) 70 - 100 MG/DL [facility] Performing Organization Address [facility] Phone Number [facility] [address] [place] [address] * POC GLUCOSE (07/02/2018 12:02 PM) Glucose, POC 244 (H) 70 - 100 MG/DL [facility] Performing Organization Address [facility] Phone Number MAIN [facility] [address] [place] [address] * POC GLUCOSE (07/02/2018 11:10 AM) Glucose, POC 229 (H) 70 - 100 MG/DL [facility] Performing Organization Address [facility] Phone Number MAIN LAB [address] [place] [address] * ABDOMEN AP ONLY (07/02/2018 10:20 AM) [...] on 07/02/2018 11:09 AM. Performing Organization Address City/[facility] Phone Number RAD RESULTS * POC GLUCOSE (07/02/2018 10:14 AM) Glucose, POC 212 (H) 70 - 100 MG/DL [facility] Performing Organization Address City/[facility] Phone Number MAIN [facility] [address] [place] [address] * POC GLUCOSE (07/02/2018 9:22 AM) Glucose, POC 209 (H) 70 - 100 MG/DL MAIN LAB Performing Organization Address City/[facility] Phone Number MAIN [facility] [address] [place] [address] * POC GLUCOSE (07/02/2018 8:04 AM) Glucose, POC 186 (H) 70 - 100 MG/DL [facility] Performing Organization Address City/[facility] Phone Number MAIN [facility] [address] [place] [address] * POC GLUCOSE (07/02/2018 6:05 AM) Glucose, POC 142 (H) 70 - 100 MG/DL MAIN LAB Performing Organization Address [facility] Phone Number MAIN LAB [address] [place] [address] * POC GLUCOSE (07/02/2018 5:00 AM) Glucose, POC 125 (H) 70 - 100 MG/DL [facility] Performing Organization Address City/[facility] Phone Number MAIN LAB [address] [place] [address] * PHOSPHORUS (07/02/2018 4:15 AM) Phosphorus 2.6 2.0 - 4.0 MG/DL MAIN LAB Specimen Blood Performing Organization Address City/[facility] Phone Number MAIN LAB [address] [place] [address] * MAGNESIUM (07/02/2018 4:15 AM) Magnesium 1.9 1.6 - 2.6 mg/dL MAIN LAB Specimen Blood Performing Organization Address City/[facility]/Zipcode Phone Number MAIN LAB [address] [place] [address] * IONIZED CALCIUM (07/02/2018 4:15 AM) Ionized Calcium 1.14 1.0 - 1.3 MMOL/L MAIN LAB Specimen Blood Performing Organization Address City/[facility] Phone Number MAIN LAB [address] [place] [address] * CULTURE-BLOOD W/SENSITIVITY (07/02/2018 4:15 AM) Battery Name BLOOD CULTURE MAIN LAB Specimen Description BLOOD MAIN LAB RIGHT RADIAL ARTERIAL Special Requests NONE MAIN LAB Culture NO GROWTH 5 DAYS [facility]IN [facility] Report Status FINAL MAIN LAB 07/08/2018 Specimen Blood Performing Organization Address [facility]/Zipcode Phone Number MAIN LAB [address] [place] [address] * CBC (07/02/2018 4:15 AM) White Blood [...] MAIN LAB Specimen Blood Performing Organization Address [facility] Phone Number MAIN LAB [address] [place] [address] * BASIC METABOLIC PANEL (07/02/2018 4:15 AM) [...] City/State/Zipcode Phone Number [facility] [address] [place] [address] * POC GLUCOSE (07/02/2018 4:00 AM) Glucose, POC 129 (H) 70 - 100 MG/DL [facility] Performing Organization Address City/[facility]/Zipcode Phone Number [facility] [address] [place] [address] * POC GLUCOSE (07/02/2018 3:06 AM) Glucose, POC 116 (H) 70 - 100 MG/DL [facility] Performing Organization Address City/[facility]/Zipcode Phone Number [facility] [address] [place] [address] * POC GLUCOSE (07/02/2018 2:02 AM) Glucose, POC 113 (H) 70 - 100 MG/DL [facility] Performing Organization Address City/[facility]/Zipcode Phone Number [facility] [address] [place] [address] * POC GLUCOSE (07/02/2018 1:12 AM) Glucose, POC 147 (H) 70 - 100 MG/DL [facility] Performing Organization Address City/[facility]/Zipcode Phone Number [facility] [address] [place] [address] * POC GLUCOSE (07/02/2018 12:05 AM) Glucose, POC 155 (H) 70 - 100 MG/DL [facility] Performing Organization Address City/[facility]/Zipcode Phone Number [facility] [address] [place] [address] * POC GLUCOSE (07/01/2018 11:03 PM) Glucose, POC 128 (H) 70 - 100 MG/DL [facility] Performing Organization Address City/[facility] Phone Number MAIN LAB [address] [place] [address] * POC GLUCOSE (07/01/2018 10:07 PM) Glucose, POC 208 (H) 70 - 100 MG/DL [facility] Performing Organization Address City/[facility] Phone Number MAIN LAB [address] [place] [address] * POC GLUCOSE (07/01/2018 9:18 PM) Glucose, POC 184 (H) 70 - 100 MG/DL MAIN LAB Performing Organization Address [facility] Phone Number MAIN LAB [address] [place] [address] * MRI HEAD WO CONTRAST (07/01/2018 9:10 [...] the posterior medial left temporal lobe. 3. Anglican of flow void within the right M1 [...] changes. Major vascular flow voids of the yocha dehe of Tse and dural venous sinuses are preserved. There is sabianism of flow void in the right M1 [...] changes. Major vascular flow voids of the yocha dehe of [place] and dural venous sinuses are preserved. There is sabianism of flow void in the right M1 [...] the posterior medial left temporal lobe. 3. 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 Performing Organization Address City/[facility]/[employer] Phone Number [facility] RAD RESULTS * POC GLUCOSE (07/01/2018 8:07 PM) Glucose, POC 184 (H) 70 - 100 MG/DL MAIN LAB Performing Organization Address City/State/[employer] Phone Number MAIN LAB [address] [place] [address] * POC GLUCOSE (07/01/2018 6:59 PM) Glucose, POC 190 (H) 70 - 100 MG/DL [facility]IN [facility] Performing Organization Address [facility] Phone Number [facility] [address] [place] [address] * POC GLUCOSE (07/01/2018 6:03 PM) Glucose, POC 169 (H) 70 - 100 MG/DL [facility] Performing Organization Address [facility] Phone Number MAIN LAB [address] [place] [address] * POC GLUCOSE (07/01/2018 5:10 PM) Glucose, POC 154 (H) 70 - 100 MG/DL [facility] Performing Organization Address [facility] Phone Number MAIN LAB [address] [place] [address] * POC GLUCOSE (07/01/2018 4:04 PM) Glucose, POC 195 (H) 70 - 100 MG/DL [facility] Performing Organization Address [facility] Phone Number MAIN LAB [address] [place] [address] * BLOOD GASES, ARTERIAL (07/01/2018 3:06 PM) pH-Arterial 7.34 (L) 7.35 - 7.45 MAIN LAB pCO2-Arterial 39 35 - 45 MMHG [facility] MAIN [facility] pO2-Arterial 102 (H) 80 - 100 MMHG [facility] MAIN [facility] Base Deficit-Arterial 4.6 MMOL/L MAIN LAB O2 Sat-Arterial 97.5 95 - 99 % MAIN LAB [id number] 20.6 (L) 21 - 28 MMOL/L MAIN LAB Specimen Blood, arterial - Blood Performing Organization Address [facility] Phone Number MAIN LAB [address] [place] [address] * POC GLUCOSE (07/01/2018 3:05 PM) Glucose, POC 195 (H) 70 - 100 MG/DL [facility] Performing Organization Address [facility] Phone Number MAIN LAB [address] [place] [address] * CT HEAD WO CONTRAST (07/01/2018 2:46 [...] 72.37 % OTHER OUTSIDE LAB AV index (tribe) 0.56 OTHER OUTSIDE LAB E/A ratio 1.35 OTHER OUTSIDE LAB E/E' ratio 10.67 OTHER OUTSIDE LAB CV ECHO PV CERTIFIED PHARMACY TECHNICIAN Yasir RN OTHER OUTSIDE LAB LV mass 118.49 96 - 200 g OTHER OUTSIDE LAB RWT 0.36 <=0.42 OTHER OUTSIDE LAB TV rest pulmonary artery 22 mmHg OTHER OUTSIDE LAB pressure Right Heart Systolic TDI 0.110 m/s OTHER OUTSIDE LAB S' Cardiology Ultrasound Siemens [id number] OTHER OUTSIDE LAB Machine ECHO EF 60 [...] study available for comparison Performing Organization Address City/[facility]/Zipcode Phone Number OTHER OUTSIDE LAB * CULTURE-BLOOD W/SENSITIVITY (07/01/2018 1:04 PM) Battery Name BLOOD CULTURE [facility]IN [facility] Specimen Description BLOOD MAIN LAB LEFT ANTECUBITAL Special Requests NONE [facility] MAIN [facility] Culture NO GROWTH 5 DAYS [facility] MAIN [facility] Report Status FINAL [facility] 07/07/2018 Specimen Blood Performing Organization Address City/[facility] Phone Number [facility] [address] [place] [address] * POC GLUCOSE (07/01/2018 1:02 PM) Glucose, POC 169 (H) 70 - 100 MG/DL [facility] Performing Organization Address [facility] Phone Number [facility] [address] [place] [address] * UA REFLEX CULTURE LABEL (07/01/2018 12:53 PM) UA Reflex Culture LAB LABEL [facility] MAIN [facility] Specimen Urine Performing Organization Address City/[facility] Phone Number MAIN LAB [address] [place] [address] * URINALYSIS MICROSCOPIC REFLEX TO CULTURE (07/01/2018 [...] MAIN LAB Specimen Urine Performing Organization Address [facility] Phone Number MAIN LAB [address] [place] [address] * URINALYSIS DIPSTICK REFLEX TO CULTURE (07/01/2018 12:53 PM) Color,UA STRAW [facility] MAIN [facility] Turbidity,UA CLEAR CLEAR-CLEAR [facility]IN [facility] Specific [place]-Urine 1.018 1.003 - 1.035 [facility] MAIN LAB [...] MAIN LAB Specimen Urine Performing Organization Address [facility] Phone Number MAIN LAB [address] [place] [address] * LACTIC ACID(LACTATE) (07/01/2018 12:50 PM) Lactic Acid 1.5 0.5 - 2.0 MMOL/L MAIN LAB Performing Organization Address [facility] Phone Number MAIN LAB [address] [place] [address] * BETA HYDROXYBUTYRATE (KETONES) (07/01/2018 12:50 PM) Beta Hydroxybutyrate 0.1 <0.3 MMOL/L [facility] Comment: Beta hydroxybutyrate (BOHB) is the most abundant ketone (78%), followed by acetoacetate (20%) and acetone (2%).Measurement BOHB is recommended to assess ketones in DKA. Expected BOHB Results for DKA: Initial presentation high/increasing During treatment decreasing Resolved decreasing/normal Performing Organization Address [facility] Phone Number MAIN LAB [address] [place] [address] * LACTIC ACID (BG - RAPID LACTATE) (07/01/2018 12:50 PM) Lactic Acid,BG 1.5 0.5 - 2.0 MMOL/L MAIN LAB Specimen Blood Performing Organization Address City/[facility]/Zipcode Phone Number [facility] [address] [place] [address] * CBC AND DIFF (07/01/2018 12:50 PM) [...] MAIN LAB Specimen Blood Performing Organization Address City/[facility]/Zipcode Phone Number [facility]IN [facility] [address] [place] [address] * IONIZED CALCIUM (07/01/2018 12:50 PM) Ionized Calcium 1.14 1.0 - 1.3 MMOL/L MAIN LAB Specimen Blood Performing Organization Address City/[facility]/Zipcode Phone Number [facility]IN [facility] [address] [place] [address] * PHOSPHORUS (07/01/2018 12:50 PM) Phosphorus 2.6 2.0 - 4.0 MG/DL [facility]IN [facility] Specimen Blood Performing Organization Address [facility] Phone Number [facility] [address] [place] [address] * MAGNESIUM (07/01/2018 12:50 PM) Magnesium 2.0 1.6 - 2.6 mg/dL [facility]IN [facility] Specimen Blood Performing Organization Address [facility] Phone Number [facility] [address] [place] [address] * LIPID PROFILE (07/01/2018 12:50 PM) Cholesterol [...] 130 mg/dL. Specimen Blood Performing Organization Address [facility] Phone Number [facility] [address] [place] [address] * COMPREHENSIVE METABOLIC PANEL (07/01/2018 12:50 PM) [...] Address City/State/Zipcode Phone Number MAIN LAB [address] [place] [address] * HEMOGLOBIN A1C (07/01/2018 12:50 PM) Hemoglobin A1C 17.4 (H) 4.0 - 6.0 % MAIN LAB Comment: The ADA recommends that most patients with type 1 and type 2 diabetes maintain an A1c level <7%. Specimen Blood Performing Organization Address City/[facility] Phone Number MAIN LAB [address] [place] [address] * IR ARTERIOGRAM NEURO (07/01/2018 12:29 PM) [...] Fentanyl 25 mcg Contrast - 100 cc [id number] Total mGy - 421 Anesthesia:conscious sedation Consent [...] the sheath was advanced over a 5 Turkish 125 cm Vert catheter over a 180 cm 0.035 [place] wire over the aortic arch and into [...] therefore, hemostasis was achieved using an 8 Turkish Angioseal closure device followed by manual pressure [...] Fentanyl 25 mcg Contrast - 100 cc [id number] Total mGy - 421 Anesthesia: conscious sedation [...] the sheath was advanced over a 5 Turkish 125 cm Vert catheter over a 180 cm 0.035 [place] wire over the aortic arch and into [...] therefore, hemostasis was achieved using an 8 [place] Angioseal closure device followed by manual pressure [...] 11:51 AM on 07/01/2018 by the president [employer] in consultation with TALIA BOSTON M.D.. Approved [...] 11:51 AM on 07/01 by the president commercial [employer] in consultation with TALIA BOSTON M.D.. Approved [...] 11:51 AM on 07/01/2018 by the president [employer] in consultation with TALIA BOSTON M.D.. Approved [...] 11:51 AM on 07/01 by the president commercial [employer] in consultation with TALIA BOSTON M.D.. Approved [...] 11:51 AM on 07/01/2018 by the president commercial [employer] in consultation with TALIA BOSTON M.D.. Approved [...] 11:51 AM on 07/01 by the president commercial bank in consultation with TALIA BOSTON M.D.. Approved [...] 0649, Until Padma 07/09/18 at 1756, Constipation MT, Hold for loose stools cefTRIAXone (ROCEPHIN) IVP [...] recheck BG every 1 hr; when > rh=449 mg/dL, restart insulin infusion at 50% of most recent rate 2. If BG 50-74 mg/dL: a. HOLD INSULIN INFUSION and administer amp (12.5 g) D50 IV; recheck BG every 15 minutes until > or=90 mg/dL. b. Then, recheck BG every 1 hr; when > at=015 mg/dL, restart insulin infusion at 50% of most recent rate. 3. If BG 75-99 mg/dL: a. HOLD INSULIN INFUSION. Recheck BG every 15 minutes until BG reaches or remains > or=90 mg/dL. b. Then, recheck BG every 1 hr; when > zk=766 mg/dL, restart insulin infusion at 75% of [...] at 4PM is 120 mg/dL, the total loom changer 2 hours is -30 mg/dL; however, the hourly change is -30 mg/dL 2 hours=-15 mg/dL/hr. BG 100-119 mg/dl BG 120-159 mg/dL BG 160-199 mg/dL BG > ox=391 INSTRUCTIONS++ BG increased by BG increased Increase [...] CDT 30 mEq, Oral, ONCE, 1 dose, [facility] 07/09/18 at 0730, Do NOT break [...]
--- OUTSIDE RECORDS SUMMARY | 2018-08-23 15:54 | XMS REPORT | Encounter Summary ---
Author Author [facility] Organization [facility] Address Unknown Phone Unavailable Care Team Providers Care Forestry Aid Technician Name Role Phone Damien Caceres MD Unavailable Melo Adame MD Unavailable Unavailable Lulu Ozuna NP PCP Hilary Davenport RN Unavailable Unavailable Reason for Visit * Auth/Cert Status Reason Specialty Diagnoses / Referred By Referred To Procedures Contact Contact Diagnoses Stroke (HCC) Stroke Encounter Details Date Type Department Care Team Description 07/08/2018 Surgery Gastrointenstinal Clara Carolina MD ESOPHAGOGASTRODUODENOSCOP Endoscopy [address] [place] [address] [place] [address] [phone] Social History Tobacco Use Types Packs/Day Years [...] s/p suprapubic catheter that was admitted at [facility] for urosepsis, DKA, A fib with RVR requiring cardizem ggt that was transferred for concerns for stroke. Admitted on 06/28 to [facility] with week history of cough, SOB. Found to have UTI with urosepsis and DKA with CO2 of 8, BG in 600s. Admitted to the ICU at [facility]. Started on CTX and Insulin [...] language) 2=neither correct 2 1c. 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, greenhouse laborer and release non-paretic hand (other 1 step [...] tPA given unclear window. Was transferred to [facility] for evaluation. Was given ativan 2mg [...] stroke on 07/15. ECHO showed no thrombus. GRANULATOR OPERATOR was following and pt graduated to regular [...] hospital course Consults: Cardiology, Endocrinology, GI and PT/OT/GRANULATOR OPERATOR, rehab, urology Patient Disposition: Care Home Facility Patient instructions/medications: AMB REFERRAL TO GASTROENTEROLOGY [...] home, please feel free to contact the Civil Laboratory Technician at [phone]. Your last blood pressure was BP: 171/73, [...] Report These Signs and Symptoms STROKE Call [phone] for the following symptoms: *Sudden numbness or weakness of the face, arm or leg, especially on one side of the body. *Sudden confusion, trouble speaking or understanding. *Sudden trouble seeing in one or both eyes. *Sudden trouble walking, dizziness, loss of balance or coordination. *Sudden, severe headache with no known cause. Return Appointment For Neurology scheduling contact [phone] For Neurosurgery appointments call [phone] Questions About Your Stay STANDARD For questions or concerns regarding your hospital stay: -DURING BUSINESS HOURS (8:00 AM - 4:30 PM): Call [phone] and ask to be transferred to your discharge attending physician. -AFTER BUSINESS HOURS (4:30 PM - 8:00 AM, on weekends, or holidays): Call [phone] and ask the reconciliation machine operator to page the on-call doctor for the discharge attending physician. Discharging attending physician: KEYSHAWN GOMEZ [[id number]] Complete if patient is going to a Care Home Facility I certify that the patient requires [...] home, you can call a dietitian at [phone]. Modified Liquids Your fluids should be thickened to a consistency of nectar. This is as thick as a milkshake or tomato juice. If you have questions about your diet after you go home, you can call a dietitian at [phone]. Current Discharge Medication List START taking these [...] CDT Return Patient with Lulu Perry MD [facility] ([facility]) [facility] [address] [phone] Additional appointment instructions: Please follow up with your PCP for repeat labs, monitoring your blood pressure, and monitoring your blood glucose Please follow up with the riddler operator at [facility] for follow up visit. Please [...] blood glucose Please follow up with the riddler operator at [facility] for follow up visit. Please [...] - 07/09/2018 2:57 PM CDT Phoned [facility] [place] [facility] [phone] and gave report to Perla GOODMAN to receive patient. Informed her that patient to transport at 13:00. By 15:00 no transport arrived, phoned facility above and it was reported that ride was on the way. FSBS=69 checked prior to transport. Reported to paraprofessional interpreter for Neurology, juice x 2 given FSBS rechecked=87. Patient left unit via wheelchair and chassis driver who was given chart for transport. [...] Range Color,UA STRAW Turbidity,UA CLEAR CLEAR-CLEAR Specific [place]-Urine 1.005 1.003 - 1.035 pH,UA 8.0 5.0 [...] DKA resolved -A1c 17.4 on 07/01/2018 uncontrolled -FIELD REIMBURSEMENT MANAGER regimen: levemir 40 units QHS, Novolog 20-25 [...] will follow up with local endocrinology in [facility] Subjective Valdez Anthony is a [...] Range Color,UA STRAW Turbidity,UA CLEAR CLEAR-CLEAR Specific [place]-Urine 1.005 1.003 - 1.035 pH,UA 8.0 5.0 [...] Intake: Improving, Marginally Adequate Estimated Calorie Needs: 1149-9627 (25-28 kcal/kg desired wt) Estimated Protein Needs: 85-100 (1.2-1.4 g/kg desired wt) Oral Diet Order: Diabetic 0330-2069 Kcal/day (60 g Carb/meal, 30 g Carb/HS snack ), [place] Thick Liquids Comments: 57 y.o. male with new onset Atrial Fibrillation with RVR, HTN, HLD, T2DM, Diabetic Retinopathy, OD Blindness, Neovascular Glaucoma, Prostate Cancer s/p prostatectomy, Urinary Retention s/p suprapubic catheter that was admitted at [facility] for urosepsis, DKA, A fib [...] and underwent via video- swallow eval with GRANULATOR OPERATOR findings of moderate oropharyngeal dysphagia and baseline cognitive deficits. GRANULATOR OPERATOR working with pt and diet has advanced from nectar thick full liquids to 60g/meal consistent carb diet with nectar thick fluids. Per had 100% omelet for breakfast today (refused per RN) and sandwich ordered by for lunch. No current wt to assess; unable to actually see pt today as he was bundled in his blankets. Pt has orders for no sugar added [place] breakfast with nectar thick milk at breakfast and per RN throughout day as needed. Followed up with call center who says orders not printing to meal ticket. denies need for diet education Recommendation: Encourage good meal intakes at least 3 times per day with adequate protein source each meal on 60g/meal consistne carb diet. Offer no sugar added [place] Breakfast shakes made with nectar thick milk at breakfast and PRN. Intervention / Plan: Monitor po intake tolerance and adequacy monitor wt trends, labs, meds and GI status Nutrition Diagnosis: Altered GI function Etiology: swallowing and cognitive deficits Signs & Symptoms: GRANULATOR OPERATOR findings and nectar thick liquids with diabetic [...] prostate cancer s/p prostatectomy who presents to [facility] as a transfer from [facility] for stroke. OSH course: Pt presented to [...] tPA given unclear window. Was transferred to [facility] for evaluation. Was given ativan 2mg [...] EF, LA size 3.5cm, no thrombus - GRANULATOR OPERATOR following -> recommend regular diet w/ nectar [...] TIDAC >pt to f/u w/ endo @ [facility] outpt basis -> goal BS [...] -> develop stroke and was transferred to [facility] - Was placed on PO cardizem [...] discharge today to [facility] @ 1300 Patient was seen [...] Range Color,UA STRAW Turbidity,UA CLEAR CLEAR-CLEAR Specific [place]-Urine 1.005 1.003 - 1.035 pH,UA 8.0 5.0 [...] (Last 24 hours): FSBS (Manual): 96 (07/08/18 9689) Glucose: (!) 118 (07/09/18 0547) POC Glucose [...] prostate cancer s/p prostatectomy who presents to [facility] as a transfer from [facility] for stroke. OSH course: Pt [...] tPA given unclear window. Was transferred to [facility] for evaluation. Was given ativan 2mg [...] EF, LA size 3.5cm, no thrombus - GRANULATOR OPERATOR following -> recommend regular diet w/ nectar [...] TIDAC >pt to f/u w/ endo @ [facility] outpt basis -> goal BS [...] -> develop stroke and was transferred to [facility] - Was placed on PO cardizem [...] fluids, replace lytes PRN, ada diet Ppx: [id number] Heparin Sq Q8, SCDs Code: Full Dispo: [...] pathology results. Roberto Dutta GI fellow Pager [phone] 07/08/2018 3:39 PM * Eloy Higgins RN [...] After 5:00 pm, holidays or weekends call [phone] and ask for the GI Doctor paraprofessional interpreter. * Barbi Deluna MD - 07/08/2018 12:10 [...] DKA resolved -A1c 17.4 on 07/01/2018 uncontrolled -FIELD REIMBURSEMENT MANAGER regimen: levemir 40 units QHS, Novolog 20-25 [...] will follow up with local endocrinology in [facility] Subjective Valdez Anthony is a [...] s/p suprapubic catheter that was admitted at [facility] for urosepsis, DKA, A fib [...] PROGRESS NOTE Patient Name: Valdez Anthony Room/Bed: IB2078/01 Admitting Diagnosis: Stroke Past Medical History: Diagnosis [...] occasionally in community. Prior Function Level Of [place]: Independent with ADLs and functional transfers Lives [...] Bed mobility, Ambulation, Stairs Therapist: ERIC Whalen/Cesia [id number] Date: 07/08/2018 * Whit Guadarrama MS,CCC-GRANULATOR OPERATOR - 07/08/2018 9:38 AM CDT SPEECH-LANGUAGE PATHOLOGY NO TREATMENT NOTE Chart reviewed and discussed in interdisciplinary rounds. Pt NPO for colonoscopy this date. GRANULATOR OPERATOR will continue to follow. Therapist: Whit Guadarrama MS,CCC-GRANULATOR OPERATOR [id number] Date: 07/08/2018 * Barbi Deluna MD - [...] DKA resolved -A1c 17.4 on 07/01/2018 uncontrolled -FIELD REIMBURSEMENT MANAGER regimen: levemir 40 units QHS, Novolog 20-25 [...] will follow up with local endocrinology in [facility] Subjective Valdez Anthony is a [...] prostate cancer s/p prostatectomy who presents to [facility] as a transfer from [facility] for stroke. OSH course: Pt [...] tPA given unclear window. Was transferred to [facility] for evaluation. Was given ativan 2mg [...] EF, LA size 3.5cm, no thrombus - GRANULATOR OPERATOR following -> recommend regular diet w/ nectar [...] > pt to f/u w/ endo @ [facility] outpt basis -> goal BS [...] -> develop stroke and was transferred to [facility] - Was placed on PO cardizem [...] clear liquid/ada diet for procedure tomorrow Ppx: [id number] Heparin Sq Q8, SCDs Code: Full Dispo: [...] provide intervention as indicated. Irma Blakely, OTR/L [id number] * Whit Guadarrama MS,CCC-GRANULATOR OPERATOR - 07/07/2018 9:50 AM CDT SPEECH-LANGUAGE PATHOLOGY NO TREATMENT NOTE Chart reviewed and discussed in interdisciplinary rounds. Pt NPO for colonoscopy this date. GRANULATOR OPERATOR will continue to follow. Therapist: Whit Guadarrama MS,CCC-GRANULATOR OPERATOR [id number] Date: 07/07/2018 * Shira Welch RN - [...] DKA resolved -A1c 17.4 on 07/01/2018 uncontrolled -FIELD REIMBURSEMENT MANAGER regimen: levemir 40 units QHS, Novolog 20-25 [...] will follow up with local endocrinology in [facility] Subjective Valdez Anthony is a [...] Color,UA YELLOW Turbidity,UA 2+ (A) CLEAR-CLEAR Specific [place]-Urine 1.017 1.003 - 1.035 pH,UA 5.0 5.0 [...] prostate cancer s/p prostatectomy who presents to [facility] as a transfer from [facility] for stroke. OSH course: Pt [...] tPA given unclear window. Was transferred to [facility] for evaluation. Was given ativan 2mg [...] EF, LA size 3.5cm, no thrombus - GRANULATOR OPERATOR following -> recommend regular diet w/ nectar [...] > pt to f/u w/ endo @ [facility] outpt basis -> goal BS [...] fluids, replace lytes PRN, ADA diet Ppx: [id number] Heparin Sq Q8, SCDs Code: Full Dispo: [...] asked these questions and provided answers by GRANULATOR OPERATOR) Speech: slurred speech w/ comprehension intact to [...] Color,UA YELLOW Turbidity,UA 2+ (A) CLEAR-CLEAR Specific [place]-Urine 1.017 1.003 - 1.035 pH,UA 5.0 5.0 [...] 0427) POC Glucose (Download): (!) 196 (07/06/18 6246) Radiology and Other Diagnostics Review: Pertinent radiology [...] due to out of window), transferred to [facility] and found to have R M1 [...] established Keyshawn Gomez MD * Whit Guadarrama MS,CCC-GRANULATOR OPERATOR - 07/06/2018 12:14 PM CDT Formatting of [...] address dysphagia and cognitive communication concerns. Ongoing GRANULATOR OPERATOR at next level of care. Consistent supervision [...] city, stating we are located at [facility]. Verbal Problem Solving Comments: Functional problem solving: [...] baseline to call for assistance if needed. Ulmer Cognitive Assessment (MoCA), Version 7.1 Subtest / [...] s/p suprapubic catheter that was admitted at [facility] for urosepsis, DKA, A fib [...] the posterior medial left temporal lobe. 3. Church of flow void within the right M1 [...] spoon/cup and pureed /mech soft solids w/ GRANULATOR OPERATOR only w/ less than 5% s/s of [...] from respiratory status changes. Therapist: Whit Guadarrama MS,CCC-GRANULATOR OPERATOR [id number] Date: 07/06/2018 * Aria Mccoy, PT - [...] s/p suprapubic catheter that was admitted at [facility] for urosepsis, DKA, A fib [...] spoon/cup and pureed /mech soft solids w/ GRANULATOR OPERATOR only w/ less than 5% s/s of [...] speech therapy post acute hospitalization. Therapist: Cesia Hatfield/CCC-GRANULATOR OPERATOR (Pager [phone]; Voalte: [phone]) Date: 07/05/2018 * Darcy Goodrich MD - [...] s/p suprapubic catheter that was admitted at [facility] for urosepsis, DKA, A fib [...] EF, LA size 3.5cm, no thrombus - GRANULATOR OPERATOR to eval and treat - Video swallow [...] - Rocephin 07/01 - 07/05 FEN: - [place] thick PO fluids - Daily BMP - [...] 0525) POC Glucose (Download): (!) 139 (07/05/18 0631) Radiology and other Diagnostics Review: Pertinent radiology reviewed. Darcy Goodrich MD Neurology PGY-4 Pager Neurology paraprofessional interpreter pager [phone] Associated attestation - Diego Gutierrez MD - [...] DKA resolved -A1c 17.4 on 07/01/2018 uncontrolled -FIELD REIMBURSEMENT MANAGER regimen: levemir 40 units QHS, Novolog 20-25 [...] will follow up with local endocrinology in [facility] This is an individual we [...] Radiology and other Diagnostics Review: none John Cahudhry MD * Munira Ortega, DO - 07/04/2018 [...] s/p suprapubic catheter that was admitted at [facility] for urosepsis, DKA, A fib [...] EF, LA size 3.5cm, no thrombus - GRANULATOR OPERATOR to eval and treat - Video swallow [...] - Rocephin 07/01 - 07/05 FEN: - [place] thick PO fluids - Daily BMP - [...] 20,000 Units/ sodium bicarbonate 650 mg(#) PRN (Glass Decorator from Rx) Vital Signs: Last Filed in [...] the posterior medial left temporal lobe. 3. Church of flow void within the right M1 segment, previously noted to be occluded. Munira Ortega DO Pager [phone] Associated attestation - Diego Gutierrez MD - [...] anemia, also received another endoscopy at the [facility] OSH again without a clear [...] DKA resolved -A1c 17.4 on 07/01/2018 uncontrolled -FIELD REIMBURSEMENT MANAGER regimen: levemir 40 units QHS, Novolog 20-25 [...] will follow up with local endocrinology in [facility] Anemia This patient is having [...] mL IV drip (std conc) Stopped (07/04/18 1929) PRN and Respiratory Meds:acetaminophen Q6H PRN, bisacodyl QDAY PRN, hydrALAZINE Q6H PRN, labetalol (NORMODYNE; TRANDATE) injection Q6H PRN, pancrelipase 20,000 Units/ sodium bicarbonate 650 mg(#) PRN (Glass Decorator from Rx) Objective Vital Signs: Last Filed [...] Screen NEG Electronic Crossmatch YES Unit Number [id number] Blood Component Type RBC,CPDA,LEUKO REDUCED Unit Division [...] suprapubic catheter that was admitted at [facility] for urosepsis, DKA, A fib with [...] EF, LA size 3.5cm, no thrombus - GRANULATOR OPERATOR to eval and treat - Video swallow [...] - UA negative for UTI FEN: - [place] thick PO fluids - Daily BMP - [...] 20,000 Units/ sodium bicarbonate 650 mg(#) PRN (Glass Decorator from Rx) Vital Signs: Last Filed in [...] the posterior medial left temporal lobe. 3. Church of flow void within the right M1 [...] s/p suprapubic catheter that was admitted at [facility] for urosepsis, DKA, A fib [...] PROGRESS NOTE Patient Name: Valdez Anthony Room/Bed: [place] [address] Admitting Diagnosis: Stroke Past Medical History: Diagnosis [...] non verbal with left hemiplegia. Transferred to [facility]. R MCA stroke s/p thrombectomy, [...] occasionally in community. Prior Function Level Of [place]: Independent with ADLs and functional transfers Lives [...] s/p suprapubic catheter that was admitted at [facility] for urosepsis, DKA, A fib [...] Fed Thin Liquid: 1 oz, Cup, Straw [place] Thick Liquid: Cup, Straw Honey Thick Liquid: [...] spoon/cup and pureed /mech soft solids w/ GRANULATOR OPERATOR only w/ less than 5% s/s of aspiration. Goal : Pt will participate in cognitive-communication assessment given mod cues. Therapist: BIANCA Lamb L/CCC-GRANULATOR OPERATOR Voalte: [id number] Date: 07/03/2018 * Alex Medel, RN - [...] PM CDT Patient arrived to room # (4399) via bed accompanied by RN. Patient transferred [...] ASSESSMENT NOTE Patient Name: Valdez Anthony Room/Bed: FW2046/01 Admitting Diagnosis: Stroke Past Medical History: Diagnosis [...] non verbal with left hemiplegia. Transferred to [facility]. R MCA stroke s/p thrombectomy, [...] occasionally in community. Prior Function Level Of [place]: Independent with ADLs and functional transfers Lives [...] s/p suprapubic catheter that was admitted at [facility] for urosepsis, DKA, A fib [...] s/p suprapubic catheter that was admitted at [facility] for urosepsis, DKA , A [...] from the ICU. Updated plan: - NPO, GRANULATOR OPERATOR to monitor swallow - Protein shake supplements [...] is restart AC in 10 days, needs GRANULATOR OPERATOR re-eval for get cleared otherwise PEG, Glu [...] reports that pt completed videoswallow evaluation at [facility], which she states yielded recommendations [...] Continue Treatment 3-5x/week. Prognosis: Fair NOMS Dysphagia Ratin4-Wsfzwxhmby-Ynxkvx Dysphagia -Not able to swallow safely by mouth for nutrition/hydration but may take some consistency w/ consistent max cues in therapy only. Alternative method of feeding required. Results Reported to Physician: Yes Objective* Relevant Med Background: 57 y.o. male with A-Fib (on Coumadin FIELD REIMBURSEMENT MANAGER), IDDM, Prostate CA, OD blindness, HLD and [...] the posterior medial left temporal lobe. 3. Church of flow void within the right M1 [...] videoswallow evaluation given mild-mod cues. Therapist:BIANCA Lamb L/CCC-GRANULATOR OPERATOR Voalte: [phone] Date:07/02/2018 * Ciarra Valentino, - 07/02/2018 6:57 [...] s/p suprapubic catheter that was admitted at [facility] for urosepsis, DKA , A [...] involving the medial L temporal lobe. 3. Church of flow void in the R M1. - Stroke Risk Factor Modification -LDL 44. Goal <70. Continue correctional officer captain atorvastatin 40mg -A1c 17.4. Goal <7.0 -Continue ASA. Will discuss timing of AC given Afib. -Goal BP <140 - PT/OT, Speech Consult - Consult to Rehab - Neuro-ICU monitoring, neurochecks q 1 hrs Encephalopathy -s/p Flumazenil 0.5mg x 2 -07/01 ABG 7.34/39/102/20.6 -07/01 EEG: Diffuse slowing indicative of encephalopathy. No seizures or epileptiform activity. -No sedation needs -Holding correctional officer captain Bupropion, Duloxetine Sedation/Pain Management: -s/p ativan 2mg and fentanyl 25mcg -s/p flumazenil 0.5 mg x 3 -No sedation needs at this time Cardiac: Afib with RVR -[id number]: 4: 4.8% Risk for stroke and 6.7% [...] - Hydralazine prn SBP >140 - Continue correctional officer captain Lisinopril 20mg HLD - LDL 44. Goal LDL <70. Continue correctional officer captain atorvastatin 20mg Respiratory: Hypoxia likely 2/2 [...] - Blood glucose goal 100-180mg/dl - Holding correctional officer captain Levemir 16 units and Novolog 5 [...] (Last 24 hours) Glucose: (!) 127 (07/02/18 0414) POC Glucose (Download): (!) 142 (07/02/18 06) [...] Range Color,UA STRAW Turbidity,UA CLEAR CLEAR-CLEAR Specific [place]-Urine 1.018 1.003 - 1.035 pH,UA 5.0 5.0 [...] O2 Sat-Arterial 97.5 95 - 99 % Bytdtbfsyll-NDP-Evl 20.6 (L) 21 - 28 MMOL/L POC [...] diagnostic procedures reviewed. Ciarra Valentino, Date: 07/02/[phone] Associated attestation - Veronica Doyle MD - [...] outpatient follow up Jerry Baker MD Urology paraprofessional interpreter Please page paraprofessional interpreter with concerns * Jaycob Ramos, - 07/01/2018 [...] Doyle MD Date: 07/01/2018 * Whit Guadarrama MS,CCC-GRANULATOR OPERATOR - 07/01/2018 1:36 PM CDT SPEECH-LANGUAGE PATHOLOGY NO TREATMENT NOTE Order received and appreciated for clinical swallow evaluation. Chart reviewed and made contact with RN. Pt currently with another provider and with decreased level of arousal/responsiveness following ativan administration in the helicopter. GRANULATOR OPERATOR will hold at this time per discussion with RN. GRANULATOR OPERATOR will follow up and will complete evaluation when pt medically appropriate. Addendum 15:20: pt remains somnolent and unable to sustain adequate level of arousal to participate in clinical swallow evaluation per discussion with RN. GRANULATOR OPERATOR will return to complete evaluation when appropriate. Chart review: Mr. Anthony presented to [facility] on 06/29 with uro-sepsis and [...] suggesting smaller completed infarct. Therapist: Whit Guadarrama MS,CCC-GRANULATOR OPERATOR [id number] Date: 07/01/2018 * Mari Mullen, MAXINE - [...] s/p suprapubic catheter that was admitted at [facility] for urosepsis, DKA, A fib [...] Factor Modification -Lipid Panel and A1c. Continue correctional officer captain atorvastatin 40mg -TTE -Start ASA. -Goal BP <140 - PT/OT, Speech Consult - Consult to Rehab - Neuro-ICU monitoring, neurochecks q 1 hrs Encephalopathy likely 2/2 to Ativan, Fentanyl -s/p Flumazenil 0.5mg x 2 -ABG -CT Head w/out contrast -No sedation needs -Holding correctional officer captain Bupropion, Duloxetine Sedation/Pain Management: -s/p ativan 2mg and fentanyl 25mcg -s/p flumazenil 0.5 mg x 2 -No sedation needs at this time Cardiac: Afib with RVR -[id number]: 4: 4.8% Risk for stroke and 6.7% [...] due to bradycardia at OSH - Holding correctional officer captain Lisinopril 20mg and Metoprolol 25mg BID HLD - Lipid Panel. Goal LDL <70. Continue correctional officer captain atorvastatin 20mg Respiratory: DHRUV -RA - [...] - Blood glucose goal 100-180mg/dl - Holding correctional officer captain levemir, novolog FEN: - IVF: NPO, [...] p suprapubic catheter that was admitted at [facility] for urosepsis, DKA, A fib with RVR requiring cardizem ggt that was transferred for concerns for stroke. Admitted on 06/28 to [facility] with week history of cough, SOB. Found to have UTI with urosepsis and DKA with CO2 of 8, BG in 600s. Admitted to the ICU at [facility]. Started on CTX and Insulin [...] language) 2=neither correct 2 1c. 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, greenhouse laborer and release non-paretic hand (other 1 step [...] more than one modality 2 Score 32 [place] coma score: E: 2 - Opens eyes [...] hours): POC Glucose (Download): (!) 169 (07/01/18 1309) Lab Review: 24-hour labs: Results for orders [...] diagnostic procedures reviewed. Ciarra Valentino, Date: 07/01/[phone] * Edvin Juarez, SHANE-SHIPPING/RECEIVING MANAGER - 07/01/2018 12:03 PM CDT Formatting [...] Labs: Pertinent labs reviewed GILLIAN Nelson Pager [phone] in this encounter Procedure Notes * Amy Velasquez MD - 07/01/2018 8:07 PM CDT Procedure(s): EEG AWAKE & ASLEEP EEG REPORT Valdez Anthony [id number] DATE OF STUDY 07/01/18 PATIENT HISTORY: This [...] mL IVPB (MB+), 1 g, Intravenous, PRN (Glass Decorator from Rx) AND Ionized Calcium, , , [...] 250 mL IVPB, 8 mmol, Intravenous, PRN (Glass Decorator from Rx) AND Phosphorus, , , PRN [...] here. EGD showed s/p polypectomy. Transferred to [facility] for stroke. Hgb dropped from 10.1 [...] She also does mention that at the [facility] the patient did have an upper [...] Resolved Ambulatory Problems Diagnosis Date Noted Sepsis ([facility]) 01/15/2016 Severe sepsis ([facility]) 01/15/2016 LATISHA (acute kidney injury) ([facility]) 01/15/2016 High anion gap metabolic acidosis 01/15/2016 Past Medical History: Diagnosis Date Arthritis DM (diabetes mellitus) ([facility]) DM eyes Glaucoma Hypertension Social History Social [...] Date Noted Anemia 07/03/2018 Agitation 07/03/2018 Stroke ([facility]) 07/01/2018 HTN (hypertension) 01/15/2016 Urinary retention with incomplete bladder emptying 01/15/2016 Diabetes ([facility]) 01/15/2016 Proliferative diabetic retinopathy(362.02) 01/14/2013 Neovascular glaucoma [...] Color,UA YELLOW Turbidity,UA 2+ (A) CLEAR-CLEAR Specific [place]-Urine 1.017 1.003 - 1.035 pH,UA 5.0 5.0 [...] DKA resolved -A1c 17.4 on 07/01/2018 uncontrolled -FIELD REIMBURSEMENT MANAGER regimen: levemir 40 units QHS, Novolog 20-25 [...] will follow up with local endocrinology in [facility] Patient was seen and discussed [...] with diabetes in 1994. He follows with riddler operator at [facility]. At home, he was taking Levemir 40 units once a day, NovoLog 20-25 units with meal, metformin 1000 mg twice a day. His states that riddler operator prescribe NovoLog 40 units 3 times [...] reviewed. Brenda Larios Endocrine Fellow Pager # [phone] 07/03/2018 Associated attestation - John Chaudhry MD [...] thick full liquids today) Estimated Calorie Needs: 4621-8235 (25-28 kcal/kg desired wt) Estimated Protein Needs: 85-100 (1.2-1.4 g/kg desired wt) Oral Diet Order: Full Liquid, [place] Thick Liquids Current EN Order: Isosource 1.5 [...] s/p suprapubic catheter that was admitted at [facility] for urosepsis, DKA, A fib [...] 07/02. Pt pulled Corpak today despite mits. GRANULATOR OPERATOR evaluated pt via video-swallow with moderate oropharyngeal dysphagia and baseline cognitive deficits. GRANULATOR OPERATOR recommending nectar thick full liquids; diet ordered. [...] meal. Offer No Sugar Added "Light Start [place] Breakfast Essentials" shakes made with nectar thick [...] Intervention / Plan: assessed nutritional status; ordered [place] Breakfast shakes with nectar thick milk PRN monitor po intake, adequacy, tolerance and advancement per GRANULATOR OPERATOR findings and recs monitor wt trends, labs, meds and GI status Nutrition Diagnosis: Altered GI function Etiology: swallowing and cognitive deficits Signs & Symptoms: GRANULATOR OPERATOR findings and recs for nectar thick full liquids with supervision Goals: Patient to consume >75% of meals/supplements Time Frame: Within 72 Hours Tata Daniels, MS,RD, LD, [facility] *[id number] * Damian Hensley MD - 07/02/2018 1:16 PM CDT Associated Order(s): CONSULT REHABILITATION MEDICINE PHYSICIAN Formatting of this note may be different from the original. Rehabilitation Medicine Attending Physician Attestation: Agree with resident. Valedz Anthony is a pleasant 57 y.o. male with PMH of DM Type 2, HTN, HL, right eye blindness, glaucoma, prostate cancer s/p resection, who was admitted upon transfer from [facility] on 07/01/2018 after originally presenting there with sepsis determined to be secondary to UTI complicated by DKA and Atrial Fibrillation and then apparent AMS. The patient was transferred to [facility] where CTA showed right M1 [...] complexity and goals with PT, OT, and GRANULATOR OPERATOR for acute inpatient rehabilitation; however, he is [...] Please have primary SWCM discuss with [facility] applications coordinator according to the patient 's (and/or [...] a 57 y.o. male admitted to [facility] on 07/01/2018 with the following [...] hours while supine in bed, pressure relief [id number] in seated position, PRAFOs for pressure relief and to prevent contractures Jaycob Ramos, DO Rehab Consult Pager: [phone] History of Present Illness Hospital Course: Valdez Anthony is a 57 y.o. male with new onset Atrial Fibrillation with RVR, HTN , HLD, T2DM, Diabetic Retinopathy, OD Blindness, Neovascular Glaucoma, Prostate Cancer s/p prostatectomy, Urinary Retention s/p suprapubic catheter that was admitted at [facility] for urosepsis, DKA, A fib [...] urosepsis. Rehab consulted for post acute rehab/placement. 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 Mitt and soft wrist restraints, [place] strap replaced end of session and bed [...] reports that pt completed videoswallow evaluation at [facility], which she states yielded recommendations [...] [facility] - 07/09/2018 11:04 AM CDT LITIGATION PARALEGAL Note: This residential mortgage underwriter printed and placed transfer packet in pt's chart drawer, per request from [facility] Sophia Vaughn. [facility] Commercial Print Salesman For additional assistance, please contact [facility] Sophia Vaughn *[phone] * Anesthesia Post Op Day 1 - [...] days Todays Date: 07/09/2018 Plan D/c to [facility] today at 1:00pm via facility w/c [...] or Referral ? Discharge Planning Discharge Planning: Care Home Facility WILLEM sent updated clinicals to [facility] at [phone]. Update 10:00am: WILLEM spoke with Perla ([phone]) at [facility] to update. Perla educated that they will be available for transportation today at 1:00pm. WILLEM spoke with Neuro Team to update. WILLEM spoke with bedside RN to update. WILLEM tasked LITIGATION PARALEGAL to deliver transfer packet. RN Report: [phone] WILLEM faxed d/c orders to [facility] at [phone]. ? Medication Needs ? Financial ? Legal [...] for the patient. Sophia Vaughn LMSW Phone: [phone] Pager: [phone] * Case Mgmt DC Plan - Sophia Vaughn - 07/08/2018 9:10 AM CDT Formatting of this note may be different from the original. Case Management Progress Note NAME:Valdez Anthony :1959 AGE: 57 y.o. ADMISSION DATE: 07/01/2018 DAYS ADMITTED: LOS: 7 days Todays Date: 07/08/2018 Plan Anticipate d/c to [facility] tomorrow pending pt stability. Interventions SW [...] or Referral ? Discharge Planning Discharge Planning: Care Home Facility WILLEM received and returned message for Angela ([phone]) at [facility] to discuss referral. Update 10:00am: WILLEM spoke with Blanquita ([phone]) at [facility] to update of anticipated d/c timeline. Blanquita educated that they are still reviewing for potential admission and will be contacting pt's to further discuss an admission. However, they will notify WILLEM once decision reached. Update 10:44am: WILLEM spoke with Perla at [facility] to update. Perla educated that they are able to accept for admission and will have their w/c van available for such. ? Medication Needs ? Financial [employer] following for assistance with [employer] Medicaid ariel. ? Legal ? Other Other/None: [...] for the patient. Sophia Vaughn LMSW Phone: [phone] Pager: *[phone] * Care Plan - Shira [...] Todays Date: 07/07/2018 Plan Anticipate d/c to [facility] tomorrow pending pt stability and facility acceptance. Interventions WILLEM reviewed EMR and met with Neuro team for huddle. GI consulted. Anticipated EGD today. ? Support Support: Pt/Family Updates re:POC or DC Plan, Counseling for Adaptation to Illness, Counseling for Psychosocial issues ? Info or Referral ? Discharge Planning Discharge Planning: Care Home Facility WILLEM left message for Admissions ([phone]) at [facility] to discuss referral. Update 11:40am: WILLEM spoke with Hyacinth ([phone]) at [facility] and they are unable to locate referral. WILLEM agreeable to re-send referral to [phone], which WILLEM completed. Hyacinth educated that she will review and follow up. Hyacinth will also speak with her sandblasting supervisor to discuss their ability to assist with transportation. Update 1:20pm: WILLEM received message from Hyacinth and they are still unable to locate referral. WILLEM manually faxed referral to [phone], as requested. Update 2:00pm: SW received message from Hyacinth that they only got a portion of the referral. WILLEM re-faxed referral to [phone]. Update 4:00pm: WILLEM received and returned message for Angela ([phone]) at [facility]. ? Medication Needs ? Financial ? [...] for the patient. Sophia Vaughn LMSW Phone: [phone] Pager: *[phone] * Care Plan - Shira [...] Liana Ortiz - 07/06/2018 10:50 AM CDT LITIGATION PARALEGAL Note: Received request from [facility] Sophia Vaughn to fax referrals to the following placements. [facility] was also asked to check wheelchair van costs to the facility. [place] [facility] - $350-375 [facility] - $500-525 [facility] - $400-425 [facility] w/c van - $430 All subject to time, billed republican, needs, etc. Updated [facility] Liana Ortiz Commercial Print Salesman For additional assistance please contact [facility] Sophia Roderick *[phone] * Case Mgmt DC Plan - Martina Vaughnleen - 07/06/2018 10:36 AM CDT Formatting of this note may be different from the original. Case Management Progress Note NAME:Valdez Anthony :1959 AGE: 57 y.o. ADMISSION DATE: 07/01/2018 DAYS ADMITTED: LOS: 5 days Todays Date: 07/06/2018 Plan Anticipate d/c to [facility] tomorrow vs Friday pending pt stability and facility acceptance. Interventions SW reviewed EMR and met with Neuro team for huddle. Anticipate GI consult. Continue to monitor hgb. ? Support Support: Pt/Family Updates re:POC or DC Plan, Counseling for Adaptation to Illness, Counseling for Psychosocial issues SW visited pt and Leticia at bedside to discuss DCP. Leticia requested referral to [facility]. SW agreeable and reviewed referral process. SW also reviewed potential private pay cost of w/c van should SNF be unable to assist. Leticia uncertain regarding their ability to private pay, however unwilling to remain in [facility] for SNF stay. SW agreeable to obtaining quote for ongoing assistance. ? Info or Referral ? Discharge Planning Discharge Planning: Care Home Facility SW tasked [employer]IGATION PAR[employer]GAL [facility]. SW tasked [facility] to check rosenberg of w/c van. ? [...] for the patient. Sophia Vaughn LMSW Phone: [phone] Pager: [phone] * Case Mgmt DC Plan - Martina [...] or Referral ? Discharge Planning Discharge Planning: Care Home Facility ? Medication Needs ? Financial ? [...] for the patient. Sophia Vaughn LMSW Phone: [phone] Pager: *[phone] * Transfer - Ciarra Valentino, DO - [...] suprapubic catheter that was admitted at [facility] for urosepsis, DKA , A fib [...] Started on ASA. LDL 40, continued on correctional officer captain atrovastatin. PT/OT and Speech consulted. CV: Initially started on Nicardipine ggt for goal SBP <140. Restarted on correctional officer captain lisinopril. Intermittent Afib on telemetry. Restarted [...] OSH. DKA resolved. Insulin ggt continued. Holding correctional officer captain Levemir and Novolog. Consider Endocrine consult. [...] Discharge Plan: Undetermined Ciarra Valentino DO Pager [phone] * Case Mgmt DC Plan - Sophia Vaughn - 07/01/2018 3:09 PM CDT Case Management Admission Assessment NAME:Valdez Anthony :1959 AGE: 57 y.o. ADMISSION DATE: 07/01/2018 DAYS ADMITTED: LOS: 0 days Todays Date: 07/01/2018 Source of Information: SW visited pt's Leticia and pt's OCTAVIANO Moseley at bedside. Plan Plan: CM Assessment, Assist PRN with SW/NCM Services Patient Address/Phone [address] [facility] [phone] (home) Emergency Contact Extended Emergency Contact Information Primary Emergency Contact: Suzie English ([facility]) Relation: Relative Secondary Emergency Contact: Leticia Anthony (Judy) [facility] Mobile Relation: Spouse Healthcare Directive [...] Part A and B) Secondary Insurance: VA/[facility] Additional Coverage: VA (fills at [facility]. ) ? Source of Income Source Of Income: SSDI ? Financial Assistance Needed? None Psychosocial Needs ? Mental Health Mental Health History: No ? Substance Use History Substance Use History Screen: No ? Other None Current/Previous Services ? PCP Chris Seay APRN at [facility] ([phone] ext [phone]) ? Pharmacy [facility] [address] [id number] ? Durable Medical Equipment Durable Medical Equipment [...] ? Outpatient Therapy PT: No OT: No GRANULATOR OPERATOR: No ? Care Home Facility/Long Term SNF: No NH: No Pt's OCTAVIANO Moseley works at [employer], therefore family understanding of LTC and SNF level of cares. ? Inpatient Rehab IPR: No ? Long-Term Acute Care Hospital LTACH: No ? Acute Hospital Stay Acute Hospital Stay: In the past Was patient's stay within the last 30 days?: No Sophia Vaughn LMSW Phone: [phone] Pager: [phone] * Acute Stroke Response - Alonzo Watt [...] 57 y.o. 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 Gutierrez History of Present Ilness History of Present Illness: Mr. Anthony presented to [facility] on 06/29 with uro-sepsis and [...] and then to IR for EVT. At [facility] he had dropping Hgb and [...] language) 2=neither correct 2 1c. 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, greenhouse laborer and release non-paretic hand (other 1 step [...] Medications: [DEC Hold] calcium gluconate IV PRN (Glass Decorator from Rx) AND Ionized Calcium PRN AND Notify Physician Ongoing, [DEC Hold] magnesium sulfate PRN AND Magnesium PRN AND Notify Physician Ongoing, [DEC Hold] potassium chloride SR PRN OR [DEC Hold] potassium chloride PRN, [DEC Hold] sodium phosphate IVPB PRN (Glass Decorator from Rx) AND Phosphorus PRN AND Notify [...] Date: 07/01/2018 Attending Physician: Lulu Perry MD Bread Room Hand(s): Miri Nair Stroke Treatment Time out performed: [...] Sedated from ativan Lulu Perry MD Pager: [phone] * Acute Stroke Response - Hannah Ceballos [...] Received: 1102 (ETA 10 minutes) EMS Agency: [facility] Outside Hospital: [facility] Clinical Presentation: Decreased LOC, Dysarthria, Left [...] Summary: Report received from MAXINE Pardo at [facility] in [place], [place]. Per report patient last known well today at 0730. At 0825 she noted patient to be less responsive with left side flaccid, dysarthria and left facial droop. Patient transferred to [facility] and upon arrival had decreased [...] dressing applied at 1228. Patient transported to [place] [address] and no complications noted. Report given to MAXINE Cooley. CT/CTP/CTA/IR: CTA/CTP time: 1125 CTA/CTP Interpretation time: 1145 N/A Plan: Patient admitted to [place] [address] post procedure for further evaluation and monitoring. [...] Social History Narrative No narrative on file Hannha Ceballos RN in this encounter Plan of [...] Organization Address City/State/Zipcode Phone Number MAIN LAB [address] [place] [address] * POC GLUCOSE (07/09/2018 3:34 PM) Glucose, POC 66 (L) 70 - 100 MG/DL [facility] Performing Organization Address City/[facility] Phone Number [facility] [address] [place] [address] * POC GLUCOSE (07/09/2018 3:18 PM) Glucose, POC 69 (L) 70 - 100 MG/DL [facility] Performing Organization Address City/[facility] Phone Number [facility] [address] [place] [address] * POC GLUCOSE (07/09/2018 1:49 PM) Glucose, POC 136 (H) 70 - 100 MG/DL [facility] Performing Organization Address City/[facility] Phone Number [facility] [address] [place] [address] * POC GLUCOSE (07/09/2018 11:40 AM) Glucose, POC 158 (H) 70 - 100 MG/DL [facility] Performing Organization Address City/[facility] Phone Number [facility] [address] [place] [address] * POC GLUCOSE (07/09/2018 8:35 AM) Glucose, POC 104 (H) 70 - 100 MG/DL [facility] Performing Organization Address [facility] Phone Number [facility] [address] [place] [address] * COMPREHENSIVE METABOLIC PANEL (07/09/2018 5:47 AM) [...] City/State/Zipcode Phone Number [facility] [address] [place] [address] * CBC AND DIFF (07/09/2018 5:47 AM) [...] City/State/Zipcode Phone Number [facility] [address] [place] [address] * POC GLUCOSE (07/09/2018 3:09 AM) Glucose, POC 151 (H) 70 - 100 MG/DL [facility] Performing Organization Address City/[facility]/Zipcode Phone Number [facility] [address] [place] [address] * POC GLUCOSE (07/09/2018 1:10 AM) Glucose, POC 80 70 - 100 MG/DL [facility] Performing Organization Address City/[facility]/Zipcode Phone Number MAIN LAB [address] [place] [address] * CULTURE-BLOOD W/SENSITIVITY (07/08/2018 10:25 PM) Battery Name BLOOD CULTURE MAIN LAB Specimen Description BLOOD MAIN LAB LEFT HAND Special Requests NONE MAIN LAB Culture NO GROWTH 5 DAYS MAIN LAB Report Status FINAL MAIN LAB 07/14/2018 Specimen Blood Performing Organization Address City/[facility]/Zipcode Phone Number MAIN LAB [address] [place] [address] * POC GLUCOSE (07/08/2018 9:52 PM) Glucose, POC 96 70 - 100 MG/DL [facility] Performing Organization Address City/[facility] Phone Number MAIN LAB [address] [place] [address] * CULTURE-BLOOD W/SENSITIVITY (07/08/2018 8:20 PM) Battery Name BLOOD CULTURE MAIN LAB Specimen Description BLOOD MAIN LAB LEFT ANTECUBITAL Special Requests NONE MAIN LAB Culture NO GROWTH 5 DAYS MAIN LAB Report Status FINAL MAIN LAB 07/14/2018 Specimen Blood Performing Organization Address City/[facility]/Zipcode Phone Number MAIN LAB [address] [place] [address] * POC GLUCOSE (07/08/2018 5:56 PM) Glucose, POC 129 (H) 70 - 100 MG/DL [facility] Performing Organization Address City/State/Zipcode Phone Number [facility] [address] [place] [address] * SURGICAL PATHOLOGY (07/08/2018 4:34 PM) PATHOLOGY REPORT [facility] [employer] [facility] [email or web address] Department of Pathology and Laboratory Medicine [address] [place] [address] Surgical Pathology Office:[phone] :[phone] SURGICAL PATHOLOGY REPORT NAME: VALDEZ ANTHONY SURG PATH #: [id number] MR #: [id number] SPECIMEN CLASS: SR BILLING #: [id number] ALT ID #:LOCATION: DISCHARGED DATE OF PROCEDURE: [...] indicated in this report. +++ +++ Melo Galvaiz D.O. pm/07/08/2018 ############################## ############################## ############ Material Received: [...] cassette C1. (ab) ab/07/08/2018 Performing Organization Address [facility] Phone Number [facility] RESULTS * UA REFLEX CULTURE LABEL (07/08/2018 4:09 PM) UA Reflex Culture LAB LABEL [facility] Specimen Urine Performing Organization Address [facility] Phone Number [facility] [address] [place] [address] * URINALYSIS MICROSCOPIC REFLEX TO CULTURE (07/08/2018 4:09 PM) WBCs,UA 0-2 0 - 2 /HPF [facility] RBCs,UA 0-2 0 - 3 /HPF [facility] Comment,UA Urine submitted for reflex [facility] culture if criteria are met:WBC>10, positive nitrite and/or >=1+ leukocyte esterase. If quantity is not sufficient, an addendum will follow. Specimen Urine Performing Organization Address [facility] Phone Number MAIN LAB [address] [place] [address] * URINALYSIS DIPSTICK REFLEX TO CULTURE (07/08/2018 4:09 PM) Color,UA STRAW [facility] Turbidity,UA CLEAR CLEAR-CLEAR [facility] Specific [place]-Urine 1.005 1.003 - 1.035 [facility] [...] City/State/Zipcode Phone Number [facility] [address] [place] [address] * CHEST SINGLE VIEW (07/08/2018 2:15 PM) [...] on 07/08/2018 2:17 PM. Performing Organization Address City/[facility]/Zipcode Phone Number RAD RESULTS * POC GLUCOSE (07/08/2018 1:57 PM) Glucose, POC 75 70 - 100 MG/DL MAIN LAB Performing Organization Address City/[facility] Cent[facility] Phone Number MAIN LAB [address] [place] [address] * POC GLUCOSE (07/08/2018 1:21 PM) Glucose, POC 67 (L) 70 - 100 MG/DL MAIN LAB Performing Organization Address [facility] Cent[facility]ode Phone Number MAIN LAB [address] [place] [address] * POC GLUCOSE (07/08/2018 11:46 AM) Glucose, POC 164 (H) 70 - 100 MG/DL MAIN LAB Performing Organization Address [facility] Phone Number MAIN LAB [address] [place] [address] * POC GLUCOSE (07/08/2018 11:22 AM) Glucose, POC 40 (LL) 70 - 100 MG/DL MAIN LAB Performing Organization Address [facility] Phone Number MAIN LAB [address] [place] [address] * EGD REPORT (07/08/2018 10:48 AM) Provation Report Patient Name: aRj DIMAS OTHER RESULTS Procedure Date: 07/08/2018 10:48 AM CSN: [id number] Date of : 1960 Gender: Male Attending Physician: Clara Carolina MD Procedure: Upper GI endoscopy Indications: Anemia (Mixed picture of anemia of chronic disease + Iron deficiency anemia), new onset of Afib and not on AC. Providers: Clara Carolina MD (Doctor), Roberto Dutta MD (Fellow), Alvaro Banegas (Nurse), Minna Jiménez RN (Nurse), Abisai Burden, Relationship Associate (Relationship Associate) Referring Physician: Referral Self Medications: Monitored [...] 55 seconds Procedure Code(s): --- Professional --- 86470, Esophagogastroduodenoscopy, flexible, transoral; with biopsy, single or multiple Diagnosis Code(s): --- Professional --- K44.9, Diaphragmatic hernia without obstruction or gangrene K31.89, Other diseases of stomach and duodenum D50.0, Iron deficiency anemia secondary to blood loss (chronic) CPT copyright 2016 [employer]. All rights reserved. The codes documented in this report are preliminary and upon electrical research engineer review may be revised to meet current [...] RESULTS Procedure Date: 07/08/2018 10:47 AM CSN: [id number] Date of : 1960 Gender: Male Attending Physician: Clara Carolina MD Procedure: Colonoscop y Indications: Anemia (Mixed picture of anemia of chronic disease + Iron deficiency anemia), new onset of Afib and not on AC. Providers: Clara Carolina MD (Doctor), Roberto Dutta MD (Fellow), Alvaro Banegas (Nurse), Minna Jiménez RN (Nurse), Abisai Burden, Relationship Associate (Relationship Associate) Referring Physician: Gerard Salazar MD Medications: [...] 15 seconds Procedure Code(s): --- Professional --- 01485, Colonoscopy, flexible; diagnostic, including collection of specimen(s) by brushing or washing, when performed (separate procedure) Diagnosis Code(s): --- Professional --- D50.0, Iron deficiency anemia secondary to blood loss (chronic) CPT copyright 2016 [employer]. All rights reserved. The codes documented in this report are preliminary and upon electrical research engineer review may be revised to meet current compliance requirements. Attending Participation: I was present and participated during the entire procedure, including non-jacobs portions. MD Clara De Oliveira MD 07/08/2018 1:28:26 PM The attending physician has electronically signed and finalized this document. Roberto Dutta MD Number of Addenda: 0 Note Initiated On: 07/08/2018 10:47 AM Performing Organization Address [facility] Phone Number OTHER RESULTS * POC GLUCOSE (07/08/2018 7:33 AM) Glucose, POC 88 70 - 100 MG/DL [facility] Performing Organization Address [facility] Phone Number MAIN LAB [address] [place] [address] * PROCALCITONIN (07/08/2018 5:53 AM) Procalcitonin 0.13 (H) <0.10 NG/ML [facility] Performing Organization Address [facility] Phone Number MAIN LAB [address] [place] [address] * COMPREHENSIVE METABOLIC PANEL (07/08/2018 5:53 AM) [...] for questions. Specimen Blood Performing Organization Address City/[facility]/Zipcode Phone Number MAIN LAB [address] [place] [address] * CBC AND DIFF (07/08/2018 5:53 AM) [...] MAIN LAB Specimen Blood Performing Organization Address City/[facility]/Zipcode Phone Number MAIN LAB [address] [place] [address] * POC GLUCOSE (07/07/2018 9:26 PM) Glucose, POC 176 (H) 70 - 100 MG/DL [facility] Performing Organization Address [facility] Phone Number [facility] [address] [place] [address] * POC GLUCOSE (07/07/2018 5:54 PM) Glucose, POC 111 (H) 70 - 100 MG/DL [facility] Performing Organization Address [facility] Phone Number [facility] [address] [place] [address] * POC GLUCOSE (07/07/2018 11:30 AM) Glucose, POC 90 70 - 100 MG/DL [facility] Performing Organization Address [facility] Phone Number [facility] [address] [place] [phone] * CBC AND DIFF (07/07/2018 8:00 AM) [...] MAIN LAB Specimen Blood Performing Organization Address [facility] Phone Number MAIN LAB [address] [place] [phone] * POC GLUCOSE (07/07/2018 7:49 AM) Glucose, POC 182 (H) 70 - 100 MG/DL [facility] Performing Organization Address [facility] Phone Number [facility] [address] [place] [address] * COMPREHENSIVE METABOLIC PANEL (07/07/2018 5:45 AM) [...] Clinical Pharmacist for questions. Performing Organization Address [facility] Cent[facility]ode Phone Number MAIN LAB [address] [place] [address] * HEMOGLOBIN (07/07/2018 5:45 AM) Hemoglobin 9.5 (L) 13.5 - 16.5 GM/DL MAIN LAB Comment: Corrected on 07/09 AT 1021: previously reported as DUPLICATE ORDER, Corrected on 07/07 AT 0811: previously reported as 9.5 Specimen Blood Performing Organization Address [facility]ode Phone Number MAIN LAB [address] [place] [address] * HEMOGLOBIN (07/06/2018 10:45 PM) Hemoglobin 10.5 (L) 13.5 - 16.5 GM/DL MAIN LAB Specimen Blood Performing Organization Address [facility] Phone Number MAIN LAB [address] [place] [address] * OCCULT BLOOD NON COLON CANCER SCREEN (07/06/2018 10:45 PM) Battery Name OCCULT BLOOD SCREEN MAIN LAB Specimen Description FECES MAIN LAB Special Requests NONE MAIN LAB Occult Blood NEGATIVE MAIN LAB Report Status FINAL MAIN LAB 07/06/2018 Specimen Stool - Feces Performing Organization Address [facility] Phone Number MAIN LAB [address] [place] [address] * POC GLUCOSE (07/06/2018 9:04 PM) Glucose, POC 115 (H) 70 - 100 MG/DL [facility] Performing Organization Address [facility] Phone Number MAIN LAB [address] [place] [address] * POC GLUCOSE (07/06/2018 5:11 PM) Glucose, POC 150 (H) 70 - 100 MG/DL [facility] Performing Organization Address [facility] Phone Number MAIN LAB [address] [place] [address] * POC GLUCOSE (07/06/2018 2:36 PM) Glucose, POC 196 (H) 70 - 100 MG/DL MAIN LAB Performing Organization Address [facility] Phone Number MAIN LAB [address] [place] [address] * HEMOGLOBIN (07/06/2018 1:31 PM) Hemoglobin 8.9 (L) 13.5 - 16.5 GM/DL MAIN LAB Specimen Blood Performing Organization Address [facility] Phone Number [facility] [address] [place] [address] * POC GLUCOSE (07/06/2018 11:49 AM) Glucose, POC 153 (H) 70 - 100 MG/DL [facility] Performing Organization Address [facility] Phone Number [facility] [address] [place] [address] * POC GLUCOSE (07/06/2018 7:29 AM) Glucose, POC 130 (H) 70 - 100 MG/DL [facility] Performing Organization Address [facility] Phone Number [facility] [address] [place] [address] * HEMOGLOBIN (07/06/2018 4:27 AM) Hemoglobin 9.1 (L) 13.5 - 16.5 GM/DL MAIN LAB Specimen Blood Performing Organization Address [facility] Phone Number MAIN LAB [address] [place] [address] * CBC (07/06/2018 4:27 AM) White Blood [...] MAIN LAB Specimen Blood Performing Organization Address [facility] Phone Number [facility] [address] [place] [address] * BASIC METABOLIC PANEL (07/06/2018 4:27 AM) [...] for questions. Specimen Blood Performing Organization Address City/[facility]/Zipcode Phone Number MAIN LAB [address] [place] [address] * POC GLUCOSE (07/06/2018 2:35 AM) Glucose, POC 132 (H) 70 - 100 MG/DL [facility] Performing Organization Address [facility] Phone Number [facility] MA[facility] [address] [place] [address] * POC GLUCOSE (07/05/2018 10:09 PM) Glucose, POC 89 70 - 100 MG/DL [facility] Performing Organization Address [facility] Phone Number MAIN LAB [address] [place] [address] * HEMOGLOBIN (07/05/2018 9:40 PM) Hemoglobin 10.1 (L) 13.5 - 16.5 GM/DL [facility] MAIN [facility] Specimen Blood Performing Organization Address City/[facility]/Zipcode Phone Number [facility] MAIN [facility] [address] [place] [address] * POC GLUCOSE (07/05/2018 9:37 PM) Glucose, POC 77 70 - 100 MG/DL [facility] Performing Organization Address [facility] Phone Number [facility] [address] [place] [address] * POC GLUCOSE (07/05/2018 8:15 PM) Glucose, POC 81 70 - 100 MG/DL [facility] Performing Organization Address [facility] Phone Number [facility] MAIN [facility] [address] [place] [address] * CULTURE-URINE W/SENSITIVITY (07/05/2018 6:45 PM) Battery Name URINE CULTURE [facility] Specimen Description URINE [facility] Special Requests NONE [facility] MAIN [facility] Culture NO GROWTH [facility] MAIN [facility] Report Status FINAL [facility] 07/06/2018 Specimen Urine Performing Organization Address [facility] Phone Number [facility] MAIN [facility] [address] [place] [phone] * UA REFLEX CULTURE LABEL (07/05/2018 6:45 PM) UA Reflex Culture LAB LABEL [facility] Specimen Urine Performing Organization Address [facility]ode Phone Number [facility] MAIN [facility] [address] [place] [address] * URINALYSIS MICROSCOPIC REFLEX TO CULTURE (07/05/2018 [...] MAIN LAB Specimen Urine Performing Organization Address [facility] Cent[facility]ode Phone Number [facility] MAIN [facility] [address] [place] [address] * URINALYSIS DIPSTICK REFLEX TO CULTURE (07/05/2018 6:45 PM) Color,UA YELLOW [facility] MAIN [facility] Turbidity,UA 2+ (A) CLEAR-CLEAR [facility] Specific [place]-Urine 1.017 1.003 - 1.035 [facility] MAIN LAB [...] MAIN LAB Specimen Urine Performing Organization Address [facility]ode Phone Number MAIN LAB [address] [place] [address] * POC GLUCOSE (07/05/2018 4:37 PM) Glucose, POC 79 70 - 100 MG/DL [facility] Performing Organization Address [facility] Phone Number MAIN LAB [address] [place] [address] * POC GLUCOSE (07/05/2018 2:02 PM) Glucose, POC 92 70 - 100 MG/DL MAIN LAB Performing Organization Address [facility] Phone Number MAIN LAB [address] [place] [address] * HEMOGLOBIN (07/05/2018 2:00 PM) Hemoglobin 9.6 (L) 13.5 - 16.5 GM/DL MAIN LAB Specimen Blood Performing Organization Address [facility] Phone Number MAIN LAB [address] [place] [address] * POC GLUCOSE (07/05/2018 11:32 AM) Glucose, POC 102 (H) 70 - 100 MG/DL MAIN LAB Performing Organization Address [facility] Phone Number MAIN LAB [address] [place] [address] * ABDOMEN AP ONLY (07/05/2018 9:20 AM) [...] on 07/05/2018 10:21 AM. Performing Organization Address [facility] CenterSix Star Enterprisesoh Phone Number RAD RESULTS * POC GLUCOSE (07/05/2018 6:56 AM) Glucose, POC 139 (H) 70 - 100 MG/DL MAIN LAB Performing Organization Address [facility] Phone Number [employer] [facility] [address] [place] [address] * CBC (07/05/2018 5:50 AM) White Blood Cells 12.4 (H) 4.5 - 11.0 K/[facility] RBC 3.21 (L) 4.4 - 5.5 M/UL [facility] Hemoglobin 9.5 (L) 13.5 - 16.5 GM/DL [facility] Hematocrit 27.9 (L) 40 - 50 % [facility] MCV 86.9 80 - 100 FL [facility] MCH 29.6 26 - 34 PG [facility] MCHC 34.1 32.0 - 36.0 G/DL [facility] RDW 14.0 11 - 15 % [facility] Platelet Count 413 (H) 150 - 400 K/[facility] MPV 8.7 7 - 11 FL [facility] Specimen Blood Performing Organization Address [facility] Phone Number [employer] [facility] [address] [place] [address] * POC GLUCOSE (07/05/2018 5:29 AM) Glucose, POC 125 (H) 70 - 100 MG/DL [employer] MAIN LAB Performing Organization Address [facility]/Zipcode Phone Number MAIN LAB [address] [place] [address] * BASIC METABOLIC PANEL (07/05/2018 5:25 AM) [...] for questions. Specimen Blood Performing Organization Address City/[facility]/Zipcode Phone Number MAIN LAB [address] [place] [address] * POC GLUCOSE (07/05/2018 2:37 AM) Glucose, POC 103 (H) 70 - 100 MG/DL [facility] Performing Organization Address [facility] Phone Number [facility] [address] [place] [address] * POC GLUCOSE (07/05/2018 1:31 AM) Glucose, POC 94 70 - 100 MG/DL [facility] Performing Organization Address City/State/Zipcode Phone Number MAIN LAB [address] [place] [address] * POC GLUCOSE (07/05/2018 12:41 AM) Glucose, POC 121 (H) 70 - 100 MG/DL [facility] Performing Organization Address City/[facility]/Zipcode Phone Number MAIN LAB [address] [place] [address] * POC GLUCOSE (07/04/2018 11:19 PM) Glucose, POC 84 70 - 100 MG/DL [facility] Performing Organization Address City/[facility]/Zipcode Phone Number [facility] [address] [place] [address] * HEMOGLOBIN (07/04/2018 9:30 PM) Hemoglobin 13.5 13.5 - 16.5 GM/DL [facility] Specimen Blood Performing Organization Address [facility]erc[facility] Phone Number [facility] [address] [place] [address] * POC GLUCOSE (07/04/2018 9:15 PM) Glucose, POC 105 (H) 70 - 100 MG/DL [facility] Performing Organization Address [facility] Phone Number [facility] [address] [place] [address] * POC GLUCOSE (07/04/2018 7:50 PM) Glucose, POC 164 (H) 70 - 100 MG/DL [facility] Performing Organization Address [facility] Phone Number [facility] [address] [place] [address] * POC GLUCOSE (07/04/2018 7:23 PM) Glucose, POC 44 (LL) 70 - 100 MG/DL [facility] Performing Organization Address [facility] Phone Number [facility] [address] [place] [address] * POC GLUCOSE (07/04/2018 5:10 PM) Glucose, POC 96 70 - 100 MG/DL [facility] Performing Organization Address [facility]erc[facility] Phone Number MAIN LAB [address] [place] [address] * IRON + BINDING CAPACITY + %SAT+ FERRITIN (07/04/2018 2:20 PM) Iron 49 (L) 50 - 185 MCG/DL [facility] Iron Binding-TIBC 212 (L) 270 - 380 MCG/DL [facility] % Saturation 23 (L) 28 - 42 % [facility] Ferritin 383 (H) 30 - 300 NG/ML [facility] Specimen Blood Performing Organization Address City/[facility]/Zipcode Phone Number MAIN LAB [address] [place] [address] * POC GLUCOSE (07/04/2018 2:19 PM) Glucose, POC 137 (H) 70 - 100 MG/DL [facility] Performing Organization Address [facility] Phone Number MAIN LAB [address] [place] [address] * POC GLUCOSE (07/04/2018 1:42 PM) Glucose, POC 114 (H) 70 - 100 MG/DL [facility] Performing Organization Address [facility] Phone Number MAIN LAB [address] [place] [address] * POC GLUCOSE (07/04/2018 1:16 PM) Glucose, POC 55 (L) 70 - 100 MG/DL [facility] Performing Organization Address [facility] Phone Number MAIN LAB [address] [place] [address] * HEMOGLOBIN (07/04/2018 1:15 PM) Hemoglobin 9.4 (L) 13.5 - 16.5 GM/DL [facility] Specimen Blood Performing Organization Address [facility] Phone Number MAIN LAB [address] [place] [address] * POC GLUCOSE (07/04/2018 12:52 PM) Glucose, POC 66 (L) 70 - 100 MG/DL [facility] Performing Organization Address [facility]erc[facility] Phone Number MAIN LAB [address] [place] [address] * POC GLUCOSE (07/04/2018 12:19 PM) Glucose, POC 66 (L) 70 - 100 MG/DL [facility] Performing Organization Address [facility] Phone Number MAIN LAB [address] [place] [address] * POC GLUCOSE (07/04/2018 12:17 PM) Glucose, POC 59 (L) 70 - 100 MG/DL [facility] Performing Organization Address [facility] Phone Number MAIN LAB [address] [place] [address] * POC GLUCOSE (07/04/2018 10:28 AM) Glucose, POC 144 (H) 70 - 100 MG/DL [facility] Performing Organization Address [facility] Phone Number [facility] [address] [place] [address] * POC GLUCOSE (07/04/2018 9:31 AM) Glucose, POC 197 (H) 70 - 100 MG/DL [facility] Performing Organization Address [facility] Phone Number [facility] [address] [place] [address] * POC GLUCOSE (07/04/2018 8:38 AM) Glucose, POC 184 (H) 70 - 100 MG/DL [facility] Performing Organization Address [facility] Phone Number [facility] [address] [place] [address] * POC GLUCOSE (07/04/2018 7:29 AM) Glucose, POC 150 (H) 70 - 100 MG/DL [facility] Performing Organization Address [facility] Phone Number [facility] [address] [place] [address] * POC GLUCOSE (07/04/2018 6:31 AM) Glucose, POC 119 (H) 70 - 100 MG/DL [facility] Performing Organization Address [facility] Phone Number [facility] [address] [place] [address] * CBC (07/04/2018 5:47 AM) White Blood [...] MAIN LAB Specimen Blood Performing Organization Address [facility] Phone Number [facility] [address] [place] [address] * BASIC METABOLIC PANEL (07/04/2018 5:47 AM) [...] for questions. Specimen Blood Performing Organization Address City/[facility] Phone Number MAIN LAB [address] [place] [address] * POC GLUCOSE (07/04/2018 5:36 AM) Glucose, POC 126 (H) 70 - 100 MG/DL [facility] Performing Organization Address [facility] Phone Number MAIN LAB [address] [place] [address] * POC GLUCOSE (07/04/2018 4:36 AM) Glucose, POC 94 70 - 100 MG/DL [facility] Performing Organization Address City/[facility] Phone Number [facility] [address] [place] [address] * POC GLUCOSE (07/04/2018 3:24 AM) Glucose, POC 120 (H) 70 - 100 MG/DL [facility] Performing Organization Address [facility] Phone Number MAIN LAB [address] [place] [address] * POC GLUCOSE (07/04/2018 2:14 AM) Glucose, POC 112 (H) 70 - 100 MG/DL [facility]IN [facility] Performing Organization Address City/[facility]/Zipcode Phone Number MAIN LAB [address] [place] [address] * POC GLUCOSE (07/04/2018 12:37 AM) Glucose, POC 126 (H) 70 - 100 MG/DL [facility] Performing Organization Address [facility] Phone Number MAIN LAB [address] [place] [address] * BLOOD TYPE CONFIRMATION - ORDER ONLY IF REQUESTED BY LAB (07/04/2018 12:13 AM) ABO/RH(D) O NEG MAIN LAB Specimen Blood Performing Organization Address [facility] Phone Number MAIN LAB [address] [place] [address] * TYPE & CROSSMATCH (07/03/2018 11:48 PM) Units Ordered 1 MAIN LAB Crossmatch Expires 07/06/2018 [facility] MAIN [facility] Record Check 2ND TYPE REQUIRED MAIN LAB ABO/RH(D) O NEG MAIN LAB Antibody Screen NEG MAIN LAB Electronic Crossmatch YES [facility] MAIN [facility] Unit Number [id number] MAIN LAB Blood Component Type RBC,CPDA,LEUKO REDUCED MAIN LAB Unit Division 0 MAIN LAB Status OF Unit TRANSFUSED [facility]IN [facility] Transfusion Status OK TO TRANSFUSE MAIN LAB Crossmatch Result COMPATIBLE,ELECTRONIC MAIN LAB Specimen Blood Performing Organization Address [facility] Phone Number MAIN LAB [address] [place] [address] * POC GLUCOSE (07/03/2018 11:21 PM) Glucose, POC 197 (H) 70 - 100 MG/DL [facility]IN [facility] Performing Organization Address [facility] Phone Number MAIN LAB [address] [place] [address] * POC GLUCOSE (07/03/2018 10:12 PM) Glucose, POC 218 (H) 70 - 100 MG/DL [facility] Performing Organization Address [facility] Phone Number MAIN LAB [address] [place] [address] * HEMOGLOBIN (07/03/2018 10:02 PM) Hemoglobin 6.8 (L) 13.5 - 16.5 GM/DL [facility]IN [facility] Specimen Blood Performing Organization Address City/State/Zipcode Phone Number MAIN LAB [address] [place] [address] * POC GLUCOSE (07/03/2018 9:19 PM) Glucose, POC 187 (H) 70 - 100 MG/DL [facility] Performing Organization Address City/State/Zipcode Phone Number MAIN LAB [address] [place] [address] * POC GLUCOSE (07/03/2018 7:40 PM) Glucose, POC 113 (H) 70 - 100 MG/DL [facility] Performing Organization Address City/State/Zipcode Phone Number MAIN LAB [address] [place] [address] * POC GLUCOSE (07/03/2018 6:37 PM) Glucose, POC 143 (H) 70 - 100 MG/DL [facility]IN [facility] Performing Organization Address City/[facility]/Zipcode Phone Number MAIN LAB [address] [place] [address] * POC GLUCOSE (07/03/2018 5:31 PM) Glucose, POC 157 (H) 70 - 100 MG/DL MAIN LAB Performing Organization Address City/[facility]/Zipcode Phone Number MAIN LAB [address] [place] [address] * POC GLUCOSE (07/03/2018 4:35 PM) Glucose, POC 190 (H) 70 - 100 MG/DL [facility] Performing Organization Address City/[facility]/Zipcode Phone Number MAIN LAB [address] [place] [address] * POC GLUCOSE (07/03/2018 3:36 PM) Glucose, POC 190 (H) 70 - 100 MG/DL MAIN LAB Performing Organization Address City/State/Zipcode Phone Number MAIN LAB [address] [place] [address] * HEMOGLOBIN (07/03/2018 3:25 PM) Hemoglobin 7.2 (L) 13.5 - 16.5 GM/DL MAIN LAB Specimen Blood Performing Organization Address City/State/Zipcode Phone Number MAIN LAB [address] [place] [address] * POC GLUCOSE (07/03/2018 2:22 PM) Glucose, POC 176 (H) 70 - 100 MG/DL [facility]IN [facility] Performing Organization Address [facility] Phone Number MAIN LAB [address] [place] [address] * POC GLUCOSE (07/03/2018 1:24 PM) Glucose, POC 254 (H) 70 - 100 MG/DL [facility]IN [facility] Performing Organization Address [facility] Phone Number [facility] [address] [place] [address] * POC GLUCOSE (07/03/2018 12:20 PM) Glucose, POC 307 (H) 70 - 100 MG/DL [facility] Performing Organization Address [facility] Phone Number MAIN LAB [address] [place] [address] * POC GLUCOSE (07/03/2018 10:45 AM) Glucose, POC 268 (H) 70 - 100 MG/DL [facility]IN [facility] Performing Organization Address [facility] Phone Number MAIN LAB [address] [place] [address] * POC GLUCOSE (07/03/2018 9:22 AM) Glucose, POC 233 (H) 70 - 100 MG/DL MAIN LAB Performing Organization Address [facility] Phone Number MAIN LAB [address] [place] [address] * SWALLOW MOTION SERIES (07/03/2018 8:59 AM) [...] Organization Address City/State/Zipcode Phone Number MAIN LAB [address] [place] [address] * ECG-SCAN (07/03/2018 7:35 AM) Narrative Performed At Ordered by an unspecified provider. * POC GLUCOSE (07/03/2018 5:03 AM) Glucose, POC 109 (H) 70 - 100 MG/DL [facility] Performing Organization Address [facility] Phone Number MAIN LAB [address] [place] [address] * CBC (07/03/2018 4:11 AM) White Blood [...] MAIN LAB Specimen Blood Performing Organization Address City/[facility] Phone Number MAIN LAB [address] [place] [address] * BASIC METABOLIC PANEL (07/03/2018 4:11 AM) [...] for questions. Specimen Blood Performing Organization Address City/[facility] Phone Number MAIN LAB [address] [place] [address] * POC GLUCOSE (07/03/2018 3:57 AM) Glucose, POC 132 (H) 70 - 100 MG/DL [facility] Performing Organization Address City/State/Zipcode Phone Number MAIN LAB [address] [place] [address] * POC GLUCOSE (07/03/2018 3:06 AM) Glucose, POC 145 (H) 70 - 100 MG/DL [facility] Performing Organization Address City/State/Zipcode Phone Number MAIN LAB [address] [place] [address] * POC GLUCOSE (07/03/2018 2:01 AM) Glucose, POC 154 (H) 70 - 100 MG/DL [facility]IN [facility] Performing Organization Address City/State/Zipcode Phone Number MAIN LAB [address] [place] [address] * POC GLUCOSE (07/03/2018 1:05 AM) Glucose, POC 112 (H) 70 - 100 MG/DL MAIN LAB Performing Organization Address City/State/Zipcode Phone Number MAIN LAB [address] [place] [address] * POC GLUCOSE (07/03/2018 12:35 AM) Glucose, POC 98 70 - 100 MG/DL [facility]IN [facility] Performing Organization Address City/State/Zipcode Phone Number MAIN LAB [address] [place] [address] * POC GLUCOSE (07/03/2018 12:13 AM) Glucose, POC 78 70 - 100 MG/DL [facility] MAIN [facility] Performing Organization Address City/State/Zipcode Phone Number MAIN LAB [address] [place] [address] * POC GLUCOSE (07/02/2018 11:03 PM) Glucose, POC 102 (H) 70 - 100 MG/DL [facility]IN [facility] Performing Organization Address City/State/Zipcode Phone Number MAIN LAB [address] [place] [address] * POC GLUCOSE (07/02/2018 9:56 PM) Glucose, POC 184 (H) 70 - 100 MG/DL [facility] Performing Organization Address City/State/Zipcode Phone Number [facility] MAIN [facility] [address] [place] [address] * POC GLUCOSE (07/02/2018 9:36 PM) Glucose, POC 49 (LL) 70 - 100 MG/DL [facility] MAIN [facility] Performing Organization Address City/State/Zipcode Phone Number MAIN LAB [address] [place] [address] * POC GLUCOSE (07/02/2018 9:32 PM) Glucose, POC 50 (L) 70 - 100 MG/DL [facility] MAIN [facility] Performing Organization Address City/State/Zipcode Phone Number MAIN LAB [address] [place] [address] * POC GLUCOSE (07/02/2018 9:13 PM) Glucose, POC 59 (L) 70 - 100 MG/DL [facility]IN [facility] Performing Organization Address City/[facility]/Zipcode Phone Number MAIN LAB [address] [place] [address] * POC GLUCOSE (07/02/2018 9:11 PM) Glucose, POC 58 (L) 70 - 100 MG/DL [facility]IN [facility] Performing Organization Address City/[facility]/Zipcode Phone Number MAIN LAB [address] [place] [address] * POC GLUCOSE (07/02/2018 7:58 PM) Glucose, POC 121 (H) 70 - 100 MG/DL [facility] MAIN [facility] Performing Organization Address City/[facility]/Zipcode Phone Number MAIN LAB [address] [place] [address] * POC GLUCOSE (07/02/2018 6:56 PM) Glucose, POC 162 (H) 70 - 100 MG/DL [facility] Performing Organization Address City/[facility]/Zipcode Phone Number MAIN LAB [address] [place] [address] * POC GLUCOSE (07/02/2018 6:07 PM) Glucose, POC 180 (H) 70 - 100 MG/DL [facility] Performing Organization Address City/State/Zipcode Phone Number MAIN LAB [address] [place] [address] * POC GLUCOSE (07/02/2018 4:52 PM) Glucose, POC 195 (H) 70 - 100 MG/DL [facility] Performing Organization Address City/State/Zipcode Phone Number MAIN LAB [address] [place] [address] * POC GLUCOSE (07/02/2018 4:24 PM) Glucose, POC 204 (H) 70 - 100 MG/DL [facility] Performing Organization Address City/State/Zipcode Phone Number MAIN LAB [address] [place] [address] * POC GLUCOSE (07/02/2018 3:09 PM) Glucose, POC 212 (H) 70 - 100 MG/DL [facility] Performing Organization Address City/State/Zipcode Phone Number MAIN LAB [address] [place] [address] * POC GLUCOSE (07/02/2018 2:13 PM) Glucose, POC 204 (H) 70 - 100 MG/DL [facility] Performing Organization Address City/State/Zipcode Phone Number MAIN LAB [address] [place] [address] * POC GLUCOSE (07/02/2018 12:59 PM) Glucose, POC 235 (H) 70 - 100 MG/DL [facility] Performing Organization Address City/[facility]/Zipcode Phone Number MAIN LAB [address] [place] [address] * POC GLUCOSE (07/02/2018 12:02 PM) Glucose, POC 244 (H) 70 - 100 MG/DL [facility] Performing Organization Address City/State/Zipcode Phone Number MAIN LAB [address] [place] [address] * POC GLUCOSE (07/02/2018 11:10 AM) Glucose, POC 229 (H) 70 - 100 MG/DL MAIN LAB Performing Organization Address City/State/Zipcode Phone Number MAIN LAB [address] [place] [address] * ABDOMEN AP ONLY (07/02/2018 10:20 AM) [...] MG/DL [facility] Performing Organization Address City/[facility] Phone Number [employer] MAIN LAB [address] [place] [address] * POC GLUCOSE (07/02/2018 9:22 AM) Glucose, POC 209 (H) 70 - 100 MG/DL [facility] Performing Organization Address City/State/Zipcode Phone Number [employer] MAIN LAB [address] [place] [address] * POC GLUCOSE (07/02/2018 8:04 AM) Glucose, POC 186 (H) 70 - 100 MG/DL [facility] Performing Organization Address City/[facility] Phone Number [employer] MAIN LAB [address] [place] [address] * POC GLUCOSE (07/02/2018 6:05 AM) Glucose, POC 142 (H) 70 - 100 MG/DL [facility] Performing Organization Address City/[facility] Phone Number MAIN LAB [address] [place] [address] * POC GLUCOSE (07/02/2018 5:00 AM) Glucose, POC 125 (H) 70 - 100 MG/DL [facility] Performing Organization Address City/[facility] Phone Number MAIN LAB [address] [place] [address] * PHOSPHORUS (07/02/2018 4:15 AM) Phosphorus 2.6 2.0 - 4.0 MG/DL MAIN LAB Specimen Blood Performing Organization Address City/[facility] Phone Number MAIN LAB [address] [place] [address] * MAGNESIUM (07/02/2018 4:15 AM) Magnesium 1.9 1.6 - 2.6 mg/dL MAIN LAB Specimen Blood Performing Organization Address City/[facility] Phone Number MAIN LAB [address] [place] [address] * IONIZED CALCIUM (07/02/2018 4:15 AM) Ionized Calcium 1.14 1.0 - 1.3 MMOL/L MAIN LAB Specimen Blood Performing Organization Address [facility] Phone Number MAIN LAB [address] [place] [address] * CULTURE-BLOOD W/SENSITIVITY (07/02/2018 4:15 AM) Battery Name BLOOD CULTURE MAIN LAB Specimen Description BLOOD MAIN LAB RIGHT RADIAL ARTERIAL Special Requests NONE MAIN LAB Culture NO GROWTH 5 DAYS [facility] Report Status FINAL MAIN LAB 07/08/2018 Specimen Blood Performing Organization Address City/[facility] Phone Number MAIN LAB [address] [place] [address] * CBC (07/02/2018 4:15 AM) White Blood [...] MAIN LAB Specimen Blood Performing Organization Address City/[facility] Phone Number MAIN LAB [address] [place] [address] * BASIC METABOLIC PANEL (07/02/2018 4:15 AM) [...] for questions. Specimen Blood Performing Organization Address City/[facility]/Zipcode Phone Number MAIN LAB [address] [place] [address] * POC GLUCOSE (07/02/2018 4:00 AM) Glucose, POC 129 (H) 70 - 100 MG/DL [facility] Performing Organization Address City/[facility]/Zipcode Phone Number MAIN LAB [address] [place] [address] * POC GLUCOSE (07/02/2018 3:06 AM) Glucose, POC 116 (H) 70 - 100 MG/DL [facility] Performing Organization Address City/State/Zipcode Phone Number MAIN LAB [address] [place] [address] * POC GLUCOSE (07/02/2018 2:02 AM) Glucose, POC 113 (H) 70 - 100 MG/DL [facility] Performing Organization Address City/[facility]/Zipcode Phone Number MAIN LAB [address] [place] [address] * POC GLUCOSE (07/02/2018 1:12 AM) Glucose, POC 147 (H) 70 - 100 MG/DL [facility] Performing Organization Address City/[facility]/Zipcode Phone Number MAIN LAB [address] [place] [address] * POC GLUCOSE (07/02/2018 12:05 AM) Glucose, POC 155 (H) 70 - 100 MG/DL MAIN LAB Performing Organization Address City/[facility]/Zipcode Phone Number MAIN LAB [address] [place] [address] * POC GLUCOSE (07/01/2018 11:03 PM) Glucose, POC 128 (H) 70 - 100 MG/DL MAIN LAB Performing Organization Address City/[facility] Phone Number MAIN LAB [address] [place] [address] * POC GLUCOSE (07/01/2018 10:07 PM) Glucose, POC 208 (H) 70 - 100 MG/DL [facility] Performing Organization Address City/[facility] Phone Number MAIN LAB [address] [place] [address] * POC GLUCOSE (07/01/2018 9:18 PM) Glucose, POC 184 (H) 70 - 100 MG/DL MAIN LAB Performing Organization Address City/[facility]/Zipcode Phone Number MAIN LAB [address] [place] [address] * MRI HEAD WO CONTRAST (07/01/2018 9:10 [...] the posterior medial left temporal lobe. 3. Church of flow void within the right M1 [...] changes. Major vascular flow voids of the [place] and dural venous sinuses are [...] changes. Major vascular flow voids of the [place] and dural venous sinuses are [...] the posterior medial left temporal lobe. 3. Church of flow void within the right M1 segment, previously noted to be occluded. Performing Organization Address City/[facility] Phone Number RAD RESULTS * POC GLUCOSE (07/01/2018 8:07 PM) Glucose, POC 184 (H) 70 - 100 MG/DL [facility] Performing Organization Address [facility] Phone Number [employer] MAIN LAB [address] [place] [address] * POC GLUCOSE (07/01/2018 6:59 PM) Glucose, POC 190 (H) 70 - 100 MG/DL [facility] Performing Organization Address [facility] Phone Number [employer] MAIN LAB [address] [place] [address] * POC GLUCOSE (07/01/2018 6:03 PM) Glucose, POC 169 (H) 70 - 100 MG/DL [facility] Performing Organization Address [facility] Phone Number [employer] MAIN LAB [address] [place] [address] * POC GLUCOSE (07/01/2018 5:10 PM) Glucose, POC 154 (H) 70 - 100 MG/DL [facility] Performing Organization Address [facility] Phone Number [employer] MAIN LAB [address] [place] [address] * POC GLUCOSE (07/01/2018 4:04 PM) Glucose, POC 195 (H) 70 - 100 MG/DL [facility] Performing Organization Address City/[facility] Phone Number MAIN LAB [address] [place] [address] * BLOOD GASES, ARTERIAL (07/01/2018 3:06 PM) pH-Arterial 7.34 (L) 7.35 - 7.45 [facility]IN [facility] pCO2-Arterial 39 35 - 45 MMHG [facility] pO2-Arterial 102 (H) 80 - 100 MMHG [facility] Base Deficit-Arterial 4.6 MMOL/L [facility] O2 Sat-Arterial 97.5 95 - 99 % [facility] Yyjwqjhgnlg-LDN-Gvo 20.6 (L) 21 - 28 MMOL/L [facility] Specimen Blood, arterial - Blood Performing Organization Address [facility] Phone Number [facility] [address] [place] [address] * POC GLUCOSE (07/01/2018 3:05 PM) Glucose, POC 195 (H) 70 - 100 MG/DL [facility] Performing Organization Address [facility] Phone Number [facility] LAB [address] [place] [address] * CT HEAD WO CONTRAST (07/01/2018 2:46 [...] 72.37 % OTHER OUTSIDE LAB AV index ([place]) 0.56 OTHER OUTSIDE LAB E/A ratio 1.35 OTHER OUTSIDE LAB E/E' ratio 10.67 OTHER OUTSIDE LAB CV ECHO PV [employer] Yasir RN OTHER OUTSIDE LAB LV mass 118.49 96 - 200 g OTHER OUTSIDE LAB RWT 0.36 <=0.42 OTHER OUTSIDE LAB TV rest pulmonary artery 22 mmHg OTHER OUTSIDE LAB pressure Right Heart Systolic TDI 0.110 m/s OTHER OUTSIDE LAB S' Cardiology Ultrasound Siemens [id number] OTHER OUTSIDE LAB Machine ECHO EF 60 [...] City/State/Zipcode Phone Number [facility] [address] [place] [address] * POC GLUCOSE (07/01/2018 1:02 PM) Glucose, POC 169 (H) 70 - 100 MG/DL [facility]IN [facility] Performing Organization Address [facility]/Zipcode Phone Number [facility]IN [facility] [address] [place] [address] * UA REFLEX CULTURE LABEL (07/01/2018 12:53 PM) UA Reflex Culture LAB LABEL [facility] Specimen Urine Performing Organization Address [facility] Phone Number [facility] [address] [place] [address] * URINALYSIS MICROSCOPIC REFLEX TO CULTURE (07/01/2018 [...] MAIN LAB Specimen Urine Performing Organization Address [facility] Phone Number [facility] [address] [place] [address] * URINALYSIS DIPSTICK REFLEX TO CULTURE (07/01/2018 12:53 PM) Color,UA STRAW [facility] Turbidity,UA CLEAR CLEAR-CLEAR [facility] Specific [place]-Urine 1.018 1.003 - 1.035 [facility] MAIN LAB [...] MAIN LAB Specimen Urine Performing Organization Address City/[facility] Phone Number [facility] [address] [place] [address] * LACTIC ACID(LACTATE) (07/01/2018 12:50 PM) Lactic Acid 1.5 0.5 - 2.0 MMOL/L [facility] Performing Organization Address [facility] Phone Number [facility] [address] [place] [id number] * BETA HYDROXYBUTYRATE (KETONES) (07/01/2018 12:50 PM) Beta Hydroxybutyrate 0.1 <0.3 MMOL/L [facility] Comment: Beta hydroxybutyrate (BOHB) is the most abundant ketone (78%), followed by acetoacetate (20%) and acetone (2%).Measurement BOHB is recommended to assess ketones in DKA. Expected BOHB Results for DKA: Initial presentation high/increasing During treatment decreasing Resolved decreasing/normal Performing Organization Address [facility] Phone Number MAIN LAB [address] [place] [address] * LACTIC ACID (BG - RAPID LACTATE) (07/01/2018 12:50 PM) Lactic Acid,BG 1.5 0.5 - 2.0 MMOL/L [facility] Specimen Blood Performing Organization Address [facility] Phone Number [facility] [address] [place] [address] * CBC AND DIFF (07/01/2018 12:50 PM) [...] MAIN LAB Specimen Blood Performing Organization Address [facility] Phone Number [facility] [address] [place] [address] * IONIZED CALCIUM (07/01/2018 12:50 PM) Ionized Calcium 1.14 1.0 - 1.3 MMOL/L [facility] Specimen Blood Performing Organization Address [facility] Phone Number [facility] [address] [place] [address] * PHOSPHORUS (07/01/2018 12:50 PM) Phosphorus 2.6 2.0 - 4.0 MG/DL [facility] Specimen Blood Performing Organization Address [facility] Phone Number MAIN LAB [address] [place] [address] * MAGNESIUM (07/01/2018 12:50 PM) Magnesium 2.0 1.6 - 2.6 mg/dL [facility] Specimen Blood Performing Organization Address [facility] Phone Number [facility] [address] [place] [address] * LIPID PROFILE (07/01/2018 12:50 PM) Cholesterol [...] 130 mg/dL. Specimen Blood Performing Organization Address [facility] Phone Number MAIN LAB [address] [place] [address] * COMPREHENSIVE METABOLIC PANEL (07/01/2018 12:50 PM) [...] for questions. Specimen Blood Performing Organization Address City/[facility]/Zipcode Phone Number MAIN LAB [address] [place] [address] * HEMOGLOBIN A1C (07/01/2018 12:50 PM) Hemoglobin A1C 17.4 (H) 4.0 - 6.0 % [facility] Comment: The ADA recommends that most patients with type 1 and type 2 diabetes maintain an A1c level <7%. Specimen Blood Performing Organization Address City/[facility]/Zipcode Phone Number MAIN LAB [address] [place] [address] * IR ARTERIOGRAM NEURO (07/01/2018 12:29 PM) [...] Fentanyl 25 mcg Contrast - 100 cc [id number] Total mGy - 421 Anesthesia:conscious sedation Consent [...] the sheath was advanced over a 5 Greek 125 cm Vert catheter over a 180 cm 0.035 [place] wire over the aortic arch and into [...] therefore, hemostasis was achieved using an 8 Greek Angioseal closure device followed by manual pressure [...] Fentanyl 25 mcg Contrast - 100 cc [id number] Total mGy - 421 Anesthesia: conscious sedation [...] the sheath was advanced over a 5 Greek 125 cm Vert catheter over a 180 cm 0.035 [place] wire over the aortic arch and into [...] therefore, hemostasis was achieved using an 8 Greek Angioseal closure device followed by manual pressure [...] 11:51 AM on 07/01/2018 by the residential mortgage underwriter in consultation with TALIA BOSTON M.D.. Approved [...] 11:51 AM on 07/01 by the residential mortgage underwriter in consultation with TALIA BOSTON M.D.. Approved [...] 11:51 AM on 07/01/2018 by the residential mortgage underwriter in consultation with TALIA BOSTON M.D.. Approved [...] 11:51 AM on 07/01 by the residential mortgage underwriter in consultation with TALIA BOSTON M.D.. Approved [...] 11:51 AM on 07/01/2018 by the residential mortgage underwriter in consultation with TALIA BOSTON M.D.. Approved [...] 11:51 AM on 07/01 by the residential mortgage underwriter in consultation with TALIA BOSTON M.D.. Approved [...] 0649, Until Padma 07/09/18 at 1756, Constipation [place], Hold for loose stools heparin (porcine) PF [...]
--- OUTSIDE RECORDS SUMMARY | 2018-08-23 15:55 | XMS REPORT | Encounter Summary ---
Author Author [facility] Organization [facility] Address Unknown Phone Unavailable Care Team Providers Care Miner Name Role Phone Damien Caceres MD Unavailable Melo Adame MD Unavailable Unavailable Alvarez Ozuna NP PCP Hilary Davenport RN Unavailable Unavailable Encounter Details Date Type Department Care Team Description 07/01/2018 Procedure Pass CA[address] [place] [address] Social History Tobacco Use Types Packs/Day Years Used Date Former Smoker Cigars 2 20 Quit: 10/20/2011 Smokeless Tobacco: Never Used Alcohol Use Drinks/Week oz/Week Comments No Sex Assigned at Date Recorded Not on file as of this encounter Plan of Treatment Not on fileas of this encounter Visit Diagnoses Not on filein this encounter
--- OUTSIDE RECORDS SUMMARY | 2018-08-23 15:55 | XMS REPORT | Encounter Summary ---
Author Author [facility] Organization [facility] Address Unknown Phone Unavailable Care Team Providers Care Tent Assembler Name Role Phone Damien Caceres MD Unavailable Melo Adame MD Unavailable Unavailable Alvarez Ozuna NP PCP Hilary Davenport RN Unavailable Unavailable Encounter Details Date Type Department Care Team Description 07/01/2018 Procedure Pass CA[address] [place] [address] Social History Tobacco Use Types Packs/Day Years Used Date Former Smoker Cigars 2 20 Quit: 10/20/2011 Smokeless Tobacco: Never Used Alcohol Use Drinks/Week oz/Week Comments No Sex Assigned at Date Recorded Not on file as of this encounter Plan of Treatment Not on fileas of this encounter Visit Diagnoses Not on filein this encounter
--- OUTSIDE RECORDS SUMMARY | 2018-08-23 15:55 | XMS REPORT | Encounter Summary ---
Author Author [facility] Organization [facility] Address Unknown Phone Unavailable Care Team Providers Care Drill Runner Helper Name Role Phone Damien Caceres MD Unavailable Melo Adame MD Unavailable Unavailable Alvarez Ozuna NP PCP Hilary Davenport RN Unavailable Unavailable Encounter Details Date Type Department Care Team Description 07/01/2018 Procedure Pass CA6 [address] [place] [address] Social History Tobacco Use Types Packs/Day Years Used Date Former Smoker Cigars 2 20 Quit: 10/20/2011 Smokeless Tobacco: Never Used Alcohol Use Drinks/Week oz/Week Comments No Sex Assigned at Date Recorded Not on file as of this encounter Plan of Treatment Not on fileas of this encounter Visit Diagnoses Not on filein this encounter
--- OUTSIDE RECORDS SUMMARY | 2018-08-23 15:55 | XMS REPORT | Encounter Summary ---
Author Author [facility] Organization [facility] Address Unknown Phone Unavailable Care Team Providers Care Composition Molder Name Role Phone Damien Caceres MD Unavailable Melo Adame MD Unavailable Unavailable Alvarez Ozuna NP PCP Hilary Davenport RN Unavailable Unavailable Encounter Details Date Type Department Care Team Description 07/01/2018 Procedure Pass CA[address] [place] [address] Social History Tobacco Use Types Packs/Day Years Used Date Former Smoker Cigars 2 20 Quit: 10/20/2011 Smokeless Tobacco: Never Used Alcohol Use Drinks/Week oz/Week Comments No Sex Assigned at Date Recorded Not on file as of this encounter Plan of Treatment Not on fileas of this encounter Visit Diagnoses Not on filein this encounter
--- OUTSIDE RECORDS SUMMARY | 2018-08-23 15:55 | XMS REPORT | Encounter Summary ---
Author Author [facility] Organization [facility] Address Unknown Phone Unavailable Care Team Providers Care Fireworks Assembly Supervisor Name Role Phone Damien Caceres MD Unavailable Melo Adame MD Unavailable Unavailable Alvarez Ozuna NP PCP Hilary Davenport RN Unavailable Unavailable Encounter Details Date Type Department Care Team Description 07/01/2018 Procedure Pass CA6 [address] [place] [address] Social History Tobacco Use Types Packs/Day Years Used Date Former Smoker Cigars 2 20 Quit: 10/20/2011 Smokeless Tobacco: Never Used Alcohol Use Drinks/Week oz/Week Comments No Sex Assigned at Date Recorded Not on file as of this encounter Plan of Treatment Not on fileas of this encounter Visit Diagnoses Not on filein this encounter
[2018-08-23 16:15] VITALS: BP 169/72
[2018-08-23] MEDS ORDERED: METOCLOPRAMIDE INJ 10 MG/2 ML (REGLAN) IV NR (16:36)
[2018-08-23] MEDS ORDERED: METOCLOPRAMIDE INJ 10 MG/2 ML (REGLAN) IV PRN (16:45)
[2018-08-23] MEDS ORDERED: ONDANSETRON 4 MG/2 ML (SDV) Z0FRAN IV PRN (16:45)
[2018-08-23] MEDS ORDERED: FLU QUADRIvalent (5+ YOA) 2018-2019 (AFLURIA) 0.5 ML IM ONE (17:00)
[2018-08-23] MEDS: AMPICILLIN FOR IV USE 500 MG in NS (IVPB) 50 ML IV SCH (17:18)
[2018-08-23] MEDS: NS IV 1000 ML 1,000 ML IV SCH (17:18)
[2018-08-23 18:00] VITALS: BP 180/76
[2018-08-23] MEDS: fentaNYL INJECTION 100 MCG/2 ML AMP IV PRN ×2 (18:19→20:34)
[2018-08-23] MEDS: inSUlin ASPART (NovoLOG) 1 UNIT/0.01 ML (CHARGE PER UNIT) SC SCH (18:19)
[2018-08-23 20:00] VITALS: BP 187/80
[2018-08-23 20:10] VITALS: BP_SYST 170; BP_SYST 172; BP_DIAS 75; BP_DIAS 76
[2018-08-23] MEDS ORDERED: inSUlin DETERMIR 1 UNIT/0.01 ML (LEVEMIR) CHARGE PER UNIT SQ SCH (21:00)
[2018-08-23 22:05] VITALS: BP_SYST 176; BP_SYST 177; BP_DIAS 78; BP_DIAS 79
[2018-08-24] VITALS: BP 170/74
[2018-08-24] MEDS: METOCLOPRAMIDE INJ 10 MG/2 ML (REGLAN) IV SCH ×5 (00:10→23:17)
[2018-08-24] MEDS: fentaNYL INJECTION 100 MCG/2 ML AMP IV PRN ×4 (00:10→19:52)
[2018-08-24] MEDS: inSUlin ASPART (NovoLOG) 1 UNIT/0.01 ML (CHARGE PER UNIT) SC SCH ×5 (00:11→23:34)
[2018-08-24] MEDS: NS IV 1000 ML 1,000 ML IV SCH ×2 (01:38→07:56)
[2018-08-24 04:00] VITALS: BP 148/75
[2018-08-24] MEDS: AMPICILLIN FOR IV USE 500 MG in NS (IVPB) 50 ML IV SCH ×2 (05:27→18:37)
[2018-08-24] MEDS: CEFEPIME 2 GM/NS 50 ML IVPB IV SCH ×2 (06:22)
[2018-08-24 06:33] LABS: BASOPHILS % (AUTO) 0 % (0-10); EOSINOPHILS % (AUTO) 0 % (0-10); HEMATOCRIT 27 % (40-54); HEMOGLOBIN 8.9 G/DL (13.3-17.7); LYMPHOCYTES # (AUTO) 1.7 X 10^3 (1.0-4.0); LYMPHOCYTES % (AUTO) 9 % (12-44); MEAN CORPUSCULAR HEMOGLOBIN 28 PG (25-34); MEAN CORPUSCULAR HGB CONC 33 G/DL (32-36); MEAN CORPUSCULAR VOLUME 85 FL (80-99); MEAN PLATELET VOLUME 10.9 FL (7.4-10.4); MONOCYTES # (AUTO) 1.6 X 10^3 (0.0-1.0); MONOCYTES % (AUTO) 8 % (0-12); NEUTROPHILS # (AUTO) 15.3 X 10^3 (1.8-7.8); NEUTROPHILS % (AUTO) 83 % (42-75); PLATELET COUNT 361 10^3/uL (130-400); RED BLOOD COUNT 3.15 10^6/uL (4.35-5.85); RED CELL DISTRIBUTION WIDTH 14.3 % (10.0-14.5); WHITE BLOOD COUNT 18.6 10^3/uL (4.3-11.0)
[2018-08-24 07:22] LABS: ALANINE AMINOTRANSFERASE 11 U/L (0-55); ALBUMIN 3.6 GM/DL (3.2-4.5); ALKALINE PHOSPHATASE 112 U/L (40-136); BILIRUBIN,TOTAL 0.6 MG/DL (0.1-1.0); BUN/CREATININE RATIO 15; CARBON DIOXIDE 18 MMOL/L (21-32); CHLORIDE 108 MMOL/L (98-107); CREATININE SERUM 1.15 MG/DL (0.60-1.30); GFR ESTIMATED > 60; GLUCOSE 69 MG/DL (70-105); POTASSIUM 3.3 MMOL/L (3.6-5.0); SODIUM 138 MMOL/L (135-145); TOTAL PROTEIN 6.4 GM/DL (6.4-8.2)
[2018-08-24] MEDS: PANTOPRAZOLE 40 MG (PROTONIX) VIAL IV SCH (07:55)
[2018-08-24] MEDS: inSUlin DETERMIR 1 UNIT/0.01 ML (LEVEMIR) CHARGE PER UNIT SQ SCH (07:56)
[2018-08-24 08:00] VITALS: BP 158/76
[2018-08-24] MEDS: MAGNESIUM 1 GM/100 ML IVPB 100 ML IV SCH ×3 (08:44→10:59)
--- NOTE | 2018-08-24 10:39 | History & Physical-Hospitalist ---
History of Present Illness HPI/Chief Complaint CC: Nausea and vomiting HPI: This is a complicated 58yoWM w/h/o CVA 07/07, DM OOC and prostate cancer s/ p neurogenic bladder requiring SP catheter who presented to the ER w/N/V in need of IVF and supportive care. Low magnesium level was noted at 1.0 requiring aggressive supplementation and general surgery consultation for abdominal pain. He has involuntary movements since the stroke and it is very difficult to ascertain what his acute issues are currently. Patient is a poor historian and is at the bedside stating he has been unable to eat and drink w/o emesis for several days. Currently he is without pain. Dr Hernandez performed EGD 07/07 and had a previous EGD at [facility] in 2014. Dr Hernandez will be consulted. Source: patient Exam Limitations: no limitations Date Seen 08/24/18 Time Seen by a Provider: 10:00 Attending Physician Shabnam Hamilton Michael R Cfnp Referring Physician Date of Admission Aug 23, 2018 at 15:17 Home Medications & Allergies Home Medications Reviewed patient Home Medication Reconciliation performed by pharmacy medication reconciliations photographic technician and/or nursing. Patients Allergies have been reviewed. Allergies Allergies Coded Allergies No Known Drug Allergies (Psruprqjfo80/4/18) Past Yrouzsw-Lbyecg-Fiaklo Hx Past Med/Social Hx: Reviewed Nursing Past Med/Soc Hx, Reviewed and Corrections made Patient Social History Marrital Status: Employed/Student: unemployed Alcohol Use: Denies Use Recreational Drug Use: No Smoking Status: Former Smoker Former Smoker, Quit: Oct 20, 2014 Type Used: Cigarettes 2nd Hand Smoke Exposure: No Physical Abuse Screen: No Sexual Abuse: No Recent Foreign Travel: No Contact w/other who traveled: No Recent Hopitalizations: No Recent Infectious Disease Expo: No Immunizations Up To Date Tetanus Booster (TDap): Less than 5yrs Pediatric: No Date of Pneumonia Vaccine: Jul 17, 2015 Date of Influenza Vaccine: Jul 17, 2015 Seasonal Allergies Seasonal Allergies: No Past Medical History Surgeries: Bladder Surgery (suprapubic catheter), Cardiac, Prostatectomy Currently Using CPAP: No Currently Using BIPAP: No Cardiac: Atrial Fibrillation, High Cholesterol, Hypertension Neurological: Neuropathy, Stroke Reproductive: No Sexually Transmitted Disease: No HIV/AIDS: No Genitourinary: Prostate Problems Gastrointestinal: Gastroesophageal Reflux, Chronic Diarrhea, C-Diff Musculoskeletal: Arthritis, Chronic Back Pain Endocrine: Diabetes, Insulin dep HEENT: Glaucoma Loss of Vision: Right Cancer: Prostate Did You Recieve Any Treatments: Yes What Type of Treatment Did You: Surgical Intervention Psychosocial: Anxiety, Depression History of Blood Disorders: No Adverse Reaction to Blood Benavides: No Family History Reviewed Nursing Family Hx Family history: Hypertension 03 FATHER, Onset:40's - 50 03 MOTHER, Onset:40's - 50 History of - respiratory disease 03 MOTHER, Onset:50's - 60 Myocardial infarction 03 FATHER 03 MOTHER No Family History of: Abdominal aortic aneurysm Atlantic's disease Alcoholism Aphasia Cancer Cancer of colon Cataract Chest pain Congenital heart disease Congestive heart failure Cystic fibrosis Dementia Dysphagia Family history: Allergy Family history: Alzheimer's disease Family history: Arthritis Family history: Asthma Family history: Breast disease Family history: Cardiovascular disease Family history: Coronary thrombosis Family history: Diabetes mellitus Family history: Gastrointestinal disease Family history: Glaucoma Family history: Osteoporosis Family history: Thyroid disorder Headache Hearing loss Heart disease Hereditary disease History of - anemia History of - disorder History of drug abuse Human immunodeficiency virus (HIV) seropositivity Hypercholesterolemia Infertile Kidney disease Malignant neoplasm of lung Parkinson's disease Prostate cancer Psychotic disorder Seizure disorder Stroke Tuberculosis Visual impairment No Pertinent Family Hx, Heart Disease, Hypertension Review of Systems Constitutional: see HPI, weakness EENTM: no symptoms reported Respiratory: no symptoms reported Cardiovascular: no symptoms reported Gastrointestinal: abdominal pain (LLQ), heartburn, loss of appetite, nausea, vomiting Genitourinary: decreased output Musculoskeletal: no symptoms reported Skin: no symptoms reported Psychiatric/Neurological: No Symptoms Reported All Other Systems Reviewed Negative Unless Noted: Yes Physical Exam Physical Exam Vital Signs Vital Signs - First Documented 08/23/18 08/23/18 12:27 15:55 Temp 96.1 Pulse 87 Resp 18 B/P (MAP) 216/92 (133) Pulse Ox 100 O2 Delivery Room Air Capillary Refill : Less Than 3 SecondsLess Than 3 Seconds Height, Weight, BMI Height: 5'6.00" Weight: 134lbs. 5.0oz. [id number]; 21.7 BMI Method:Stated General Appearance: No Apparent Distress, WD/WN, Chronically ill, Cachetic Eyes: Bilateral Eye Normal Inspection, Bilateral Eye PERRL HEENT: PERRL/EOMI, Normal ENT Inspection, Pharynx Normal Neck: Full Range of Motion, Normal Inspection, Non Tender, Supple, Carotid Bruit Respiratory: Chest Non Tender, Lungs Clear, Normal Breath Sounds, No Accessory Muscle Use, No Respiratory Distress Cardiovascular: Regular Rate, Rhythm, No Edema, No Gallop, No JVD, No Murmur, Normal Peripheral Pulses Gastrointestinal: Normal Bowel Sounds, No Organomegaly, No Pulsatile Mass, Non Tender, Soft Back: Normal Inspection, No CVA Tenderness, No Vertebral Tenderness Extremity: Normal Capillary Refill, Normal Inspection, Normal Range of Motion, Non Tender, No Calf Tenderness, No Pedal Edema Neurologic/Psychiatric: Alert, Oriented x3, No Motor/Sensory Deficits, Normal Mood/Affect, Other (involuntary movements) Skin: Normal Color, Warm/Dry Lymphatic: No Adenopathy Results Results/Procedures Labs Laboratory Tests 08/23/18 13:01 08/24/18 05:47 Patient resulted labs reviewed. Assessment/Plan Admission Diagnosis Assessment: Severe refractory N/V Hemoccult + stools w/subtle hematemesis Leukocytosis Acute on chronic UTI placed on empiric abx coverage Involuntary movements and poor memory due to CVA 07/07 DM OOC Hypomagnesemia Hypokalemia Dehydration Plan: Dr Hernandez consultation PPI Mag and K+ replacement Pain control IV abx Check labs in am Admission Status: Inpatient Order (span 2 midnights) Reason for Inpatient Admission: Severe N/V and hypomag and hematemesis will require 3 days of in-pt Diagnosis/Problems Diagnosis/Problems (1) Nausea and vomiting Status: Acute Qualifiers: Vomiting type: unspecified Vomiting Intractability: non-intractable Qualified Codes: R11.2 - Nausea with vomiting, unspecified (2) Upper abdominal pain Status: Acute (3) Gastroenteritis Status: Acute (4) Neurogenic bladder Status: Chronic (5) Suprapubic catheter Status: Chronic (6) Poor prognosis Status: Acute (7) Acute renal insufficiency Status: Acute (8) Urinary tract infection Status: Acute Qualifiers: Urinary tract infection type: catheter-associated UTI Indwelling urinary catheter type: cystostomy catheter Encounter type: subsequent encounter Qualified Codes: T83.510D - Infection and inflammatory reaction due to cystostomy catheter, subsequent encounter; N39.0 - Urinary tract infection, site not specified (9) Hematemesis Status: Acute Qualifiers: Nausea presence: with nausea Qualified Codes: K92.0 - Hematemesis (10) Uncontrolled diabetes mellitus Status: Chronic Qualifiers: Diabetes mellitus type: type 2 Glycemic state: with hyperglycemia Qualified Codes: E11.65 - Type 2 diabetes mellitus with hyperglycemia (11) Leukocytosis Status: Acute Qualifiers: Leukocytosis type: leukemoid reaction Qualified Codes: D72.823 - Leukemoid reaction (12) Hypomagnesemia Status: Acute (13) Hypokalemia Status: Acute (14) Prostate cancer Status: Chronic (15) CVA (cerebral vascular accident) Status: Chronic Qualifiers: CVA mechanism: unspecified Qualified Codes: I63.9 - Cerebral infarction, unspecified (16) Memory loss Status: Chronic (17) Involuntary movements Status: Chronic Clinical Quality Measures DVT/VTE Risk/Contraindication: Risk Factor Score Per Nursin RFS Level Per Nursing on Admit: 4+=Very High SUMMER ALCAZAR DO Aug 24, 2018 10:39
[2018-08-24] MEDS: POTASSIUM CL 10MEQ/50ML IVPB 50 ML IV SCH ×3 (10:59→11:58)
[2018-08-24 11:21] VITALS: BP 167/75
[2018-08-24] MEDS: SODIUM CHLORIDE IV SCH ×4 (11:25→19:51)
[2018-08-24] MEDS: POTASSIUM CHLORIDE IV SCH ×4 (11:25→19:51)
--- NOTE | 2018-08-24 13:22 | Consultation ---
History of Present Illness History of Present Illness Patient Consulted On(uriel/time) 08/24/18 13:15 Time Seen by Provider: 12:39 History of Present Illness Surgery asked to consult regarding abdominal pain, N/V, ??Hematemesis. HPI per IM: This is a complicated 58yoWM w/h/o CVA 07/07, DM OOC and prostate cancer s/p neurogenic bladder requiring SP catheter who presented to the ER w/N/ V in need of IVF and supportive care. Low magnesium level was noted at 1.0 requiring aggressive supplementation and general surgery consultation for abdominal pain. He has involuntary movements since the stroke and it is very difficult to ascertain what his acute issues are currently. Patient is a poor historian and is at the bedside stating he has been unable to eat and drink w/o emesis for several days. Currently he is without pain. Dr Tena performed EGD 07/07 and had a previous EGD at [facility] in 2014. When seen by me today pt states he had 9/10 pain that is constant, but states it is intermittent and then later during interview pt denied having pain. He no longer complains of N/V; and nurse states it is not really emesis, it is sputum. states his confusion is back to his normal baseline. He is no longer complaining of dizziness or light-headedness. He is tolerating diet, but not eating much. Pain was upper epigastric and RUQ. When he had the pain he said nothing seemed to make it better or worse. Allergies and Home Medications Allergies Coded Allergies: No Known Drug Allergies (Unverified , 08/23/18) Home Medications Atorvastatin Calcium 80 Mg Tablet, 40 MG PO HS, (Reported) TAKES 1/2 (80MG) TABLET Bupropion HCl 75 Mg Tablet, 75 MG PO BID, (Reported) Cefdinir 300 Mg Capsule, 300 MG PO BID Prescribed by: HATTIE BUSH on 07/30/182055 Cholecalciferol (Vitamin D3) 1,000 Unit Capsule, 1,000 UNIT PO DAILY, (Reported) Cyanocobalamin (Vitamin B-12) 1,000 Mcg Tablet, 2,000 MCG PO DAILY, (Reported) Duloxetine HCl 30 Mg Capsule.dr, 90 MG PO DAILY, (Reported) TAKES 3 (30MG) CAPSULES Ferrous Sulfate 324 Mg Tablet.dr, 324 MG PO TID, (Reported) Folic Acid 1 Mg Tablet, 1 MG PO DAILY, (Reported) Insulin Aspart 300 Units/3 Ml Solution, 25 UNITS SQ AC, (Reported) Insulin Determir 1,000 Units/10 Ml Soln, 25 UNITS SQ HS, (Reported) Levofloxacin 500 Mg Tablet, 500 MG PO DAILY, (Reported) Loperamide HCl 2 Mg Capsule, 2 MG PO UD PRN for DIARRHEA, (Reported) Metformin HCl 500 Mg Tablet, 500 MG PO BID, (Reported) Metoprolol Tartrate 50 Mg Tablet, 25 MG PO BID, (Reported) TAKES 1/2 (50MG) TABLETS Mirtazapine 15 Mg Tablet, 15 MG PO HS, (Reported) Nitrofurantoin Macrocrystal 100 Mg Capsule, 100 MG PO BID Prescribed by: DC LAGUNA on 08/22/182039 Nitrofurantoin Monohyd/M-Cryst 100 Mg Capsule, 1 TAB PO BID Prescribed by: ALISE AVELAR on 08/01/18 0851 Ondansetron 4 Mg Tab.rapdis, 4 MG SL Q4H PRN for NAUSEA/VOMITING-1ST LINE Prescribed by: ALISE AVELAR on 08/01/18850 Pantoprazole Sodium 20 Mg Tablet.dr, 20 MG PO BID, (Reported) Pregabalin 100 Mg Capsule, 100 MG PO TID, (Reported) Sulfamethoxazole/Trimethoprim 1 Each Tablet, 1 EACH PO BID Prescribed by: DAJUAN GREY on 08/08/182119 Urea 85 Gm Cream..g., TP BID PRN for DRY FEET, (Reported) Patient Home Medication List Home Medication List Reviewed: Yes Past Afllwfi-Agwzpd-Ivtfdq Hx Patient Social History Alcohol Use: Denies Use Recreational Drug Use: No Smoking Status: Former Smoker Former Smoker, Quit: Oct 20, 2014 Type Used: Cigarettes 2nd Hand Smoke Exposure: No Recent Foreign Travel: No Contact w/Someone Who Travel: No Recent Infectious Disease Expo: No Recent Hopitalizations: No Physical Abuse Screen: No Sexual Abuse: No Immunizations Up To Date Tetanus Booster (TDap): Less than 5yrs PED Vaccines UTD: No Date of Pneumonia Vaccine: Jul 17, 2015 Date of Influenza Vaccine: Jul 17, 2015 Seasonal Allergies Seasonal Allergies: No Surgeries History of Surgeries: Yes (HEART CATH/ JAW SURGERY) Surgeries: Bladder Surgery (suprapubic catheter), Cardiac, Prostatectomy Respiratory History of Respiratory Disorde: No (fmr smkr) Cardiovascular History of Cardiac Disorders: Yes (heart cath) Cardiac Disorders: Atrial Fibrillation, High Cholesterol, Hypertension Neurological History of Neurological Disord: Yes Neurological Disorders: Neuropathy, Stroke Reproductive System Hx Reproductive Disorders: No Sexually Transmitted Disease: No HIV/AIDS: No Genitourinary History of Genitourinary Disor: Yes (suprapubic catheter) Genitourinary Disorders: Prostate Problems Gastrointestinal History of Gastrointestinal Di: Yes Gastrointestinal Disorders: Gastroesophageal Reflux, Chronic Diarrhea, C-Diff Musculoskeletal History of Musculoskeletal Dis: Yes (CHRONIC NECK AND BACK PAIN ) Musculoskeletal Disorders: Arthritis, Chronic Back Pain Endocrine History of Endocrine Disorders: Yes Endocrine Disorders: Diabetes, Insulin dep HEENT History of HEENT Disorders: No HEENT Disorders: Glaucoma Loss of Vision: Right Cancer History of Cancer: Yes Cancer: Prostate Psychosocial History of Psychiatric Problem: Yes Behavioral Health Disorders: Anxiety, Depression Integumentary History of Skin or Integumenta: No Blood Transfusions History of Blood Disorders: No Adverse Reaction to a Blood Tr: No Family Medical History Significant Family History: Heart Disease, Hypertension Family Medial History: Family history: Hypertension 03 FATHER, Onset:40's - 50 03 MOTHER, Onset:40's - 50 History of - respiratory disease 03 MOTHER, Onset:50's - 60 Myocardial infarction 03 FATHER 03 MOTHER No Family History of: Abdominal aortic aneurysm Boo's disease Alcoholism Aphasia Cancer Cancer of colon Cataract Chest pain Congenital heart disease Congestive heart failure Cystic fibrosis Dementia Dysphagia Family history: Allergy Family history: Alzheimer's disease Family history: Arthritis Family history: Asthma Family history: Breast disease Family history: Cardiovascular disease Family history: Coronary thrombosis Family history: Diabetes mellitus Family history: Gastrointestinal disease Family history: Glaucoma Family history: Osteoporosis Family history: Thyroid disorder Headache Hearing loss Heart disease Hereditary disease History of - anemia History of - disorder History of drug abuse Human immunodeficiency virus (HIV) seropositivity Hypercholesterolemia Infertile Kidney disease Malignant neoplasm of lung Parkinson's disease Prostate cancer Psychotic disorder Seizure disorder Stroke Tuberculosis Visual impairment Review of Systems-General Constitutional: chills; No diaphoresis; dizziness, weakness EENTM: epistaxis; No vision loss, No hoarseness, No throat pain, No throat swelling Respiratory: No cough, No dyspnea on exertion, No hemoptysis; phlegm; No short of breath Cardiovascular: No chest pain; palpitations Gastrointestinal: RUQ, abdominal pain, diarrhea, dysphagia, nausea, vomiting Genitourinary: No dysuria, No frequency, No hematuria; other (pt has suprapubic tube in place) Musculoskeletal: joint pain, joint swelling, muscle weakness Psychiatric/Neurological: Denies Depressed; Headache; Denies Paresthesia; Tremors, Weakness Physical Exam-General Problems Physical Exam Vital Signs Vital Signs - First Documented 08/23/18 08/23/18 12:27 15:55 Temp 96.1 Pulse 87 Resp 18 B/P (MAP) 216/92 (133) Pulse Ox 100 O2 Delivery Room Air Capillary Refill : Less Than 3 SecondsLess Than 3 Seconds General Appearance: WD/WN, no apparent distress Eyes: Bilateral Eye PERRL, Bilateral Eye EOMI HEENT: pharynx normal; No scleral icterus (R), No scleral icterus (L), No pharyngeal erythema Neck: non-tender, supple Respiratory: chest non-tender, lungs clear, normal breath sounds, no respiratory distress, no accessory muscle use Cardiovascular: regular rate, rhythm, no murmur Gastrointestinal: normal bowel sounds, non tender, soft, no organomegaly, no pulsatile mass Genital/Rectal: normal genital exam, other (mild erosion around suprapubic tube , no erythema or signs of infection) Back: no CVA tenderness, no vertebral tenderness Extremities: no pedal edema, no calf tenderness, normal capillary refill, other (weakness on left side compared to right) Neurologic/Psychiatric: alert, normal mood/affect Skin: normal color, warm/dry Lymphatic: no adenopathy (neck, axilla or groin) Data Review Labs Laboratory Tests 08/23/18 13:28: Gastric Fluid Occult Blood POSITIVEH 08/23/18 13:35: Urine Color YELLOW, Urine Clarity CLEAR, Urine pH 5, Urine Specific [place] 1.010L, Urine Protein 3+H, Urine Glucose (UA) 4+H, Urine Ketones 4+H, Urine Nitrite NEGATIVE, Urine Bilirubin NEGATIVE, Urine Urobilinogen NORMAL, Urine Leukocyte Esterase 1+H, Urine RBC (Auto) 3+H, Urine RBC 0-2, Urine WBC 25-50H, Urine Crystals NONE, Urine Bacteria MODERATEH, Urine Casts NONE, Urine Mucus NEGATIVE, Urine Culture Indicated YES 08/23/18 15:01: Glucometer 412*H 08/23/18 18:05: Glucometer 366H 08/23/18 23:37: Glucometer 207H 08/24/18 05:42: Glucometer 70 08/24/18 05:47: White Blood Count 18.6H, Red Blood Count 3.15L, Hemoglobin 8.9L, Hematocrit 27L , Mean Corpuscular Volume 85, Mean Corpuscular Hemoglobin 28, Mean Corpuscular Hemoglobin Concent 33, Red Cell Distribution Width 14.3, Platelet Count 361, Mean Platelet Volume 10.9H, Neutrophils (%) (Auto) 83H, Lymphocytes (%) (Auto) 9L, Monocytes (%) (Auto) 8, Eosinophils (%) (Auto) 0, Basophils (%) (Auto) 0, Neutrophils # (Auto) 15.3H, Lymphocytes # (Auto) 1.7, Monocytes # (Auto) 1.6H, Eosinophils # (Auto) 0.0, Basophils # (Auto) 0.0, Sodium Level 138, Potassium Level 3.3L, Chloride Level 108H, Carbon Dioxide Level 18L, Anion Gap 12, Blood Urea Nitrogen 17, Creatinine 1.15, Estimat Glomerular Filtration Rate > 60, BUN/ Creatinine Ratio 15, Glucose Level 69L, Calcium Level 9.0, Corrected Calcium 9.3 , Magnesium Level 1.0*L, Total Bilirubin 0.6, Aspartate Amino Transf (AST/SGOT) 13, Alanine Aminotransferase (ALT/SGPT) 11, Alkaline Phosphatase 112, Total Protein 6.4, Albumin 3.6 08/24/18 11:20: Glucometer 140H Microbiology 08/23/18 Urine Culture - Preliminary, Resulted Assessment/Plan Assessment/Plan Assessment/Plan Abd pain (RUQ and Epigastric) - appears to have resolved Nausea and Vomiting - appears to have resolved UTI - wait culture results and sensitivity DM Anemia- can get repeat EGD and colonoscopy as an outpt. I believe pt's problems are most likely due to a UTI; would wait on culture and sensitivity results. He does have an elevated WBC (probably UTI) but CT of chest/abd/pelvis basically showed no acute process. Plan IV fluids, pain control, anti-emetics and ABX. Max medical care, no surgical intervention needed at this time. Clinical Quality Measures DVT/VTE Risk/Contraindication: Risk Factor Score Per Nursin RFS Level Per Nursing on Admit: 4+=Very High SEBASTIEN TENA DO Aug 24, 2018 13:22
[2018-08-24] MEDS ORDERED: TRAM50TA2 PO (13:32)
[2018-08-24] MEDS ORDERED: INSU100V5 SQ (13:32)
[2018-08-24] MEDS ORDERED: BUPR100T8 PO (13:32)
[2018-08-24 15:25] VITALS: BP 166/73
[2018-08-24 19:30] VITALS: BP 183/77
[2018-08-25 00:19] VITALS: BP 173/83
[2018-08-25] MEDS: POTASSIUM CHLORIDE IV SCH ×2 (02:39)
[2018-08-25] MEDS: fentaNYL INJECTION 100 MCG/2 ML AMP IV PRN ×2 (02:39→09:19)
[2018-08-25] MEDS: SODIUM CHLORIDE IV SCH ×2 (02:39)
[2018-08-25 04:05] VITALS: BP 167/80
[2018-08-25] MEDS: METOCLOPRAMIDE INJ 10 MG/2 ML (REGLAN) IV SCH (05:35)
[2018-08-25] MEDS: AMPICILLIN FOR IV USE 500 MG in NS (IVPB) 50 ML IV SCH (05:36)
[2018-08-25] MEDS: inSUlin ASPART (NovoLOG) 1 UNIT/0.01 ML (CHARGE PER UNIT) SC SCH (06:15)
[2018-08-25] MEDS: CEFEPIME 2 GM/NS 50 ML IVPB IV SCH ×2 (06:20)
[2018-08-25 06:22] LABS: BASOPHILS % (AUTO) 0 % (0-10); EOSINOPHILS # (AUTO) 0.1 10^3/uL (0.0-0.3); EOSINOPHILS % (AUTO) 1 % (0-10); HEMATOCRIT 29 % (40-54); HEMOGLOBIN 9.7 G/DL (13.3-17.7); LYMPHOCYTES # (AUTO) 2.3 X 10^3 (1.0-4.0); LYMPHOCYTES % (AUTO) 19 % (12-44); MEAN CORPUSCULAR HEMOGLOBIN 28 PG (25-34); MEAN CORPUSCULAR HGB CONC 33 G/DL (32-36); MEAN CORPUSCULAR VOLUME 86 FL (80-99); MEAN PLATELET VOLUME 10.8 FL (7.4-10.4); MONOCYTES # (AUTO) 0.9 X 10^3 (0.0-1.0); MONOCYTES % (AUTO) 7 % (0-12); NEUTROPHILS # (AUTO) 9.1 X 10^3 (1.8-7.8); NEUTROPHILS % (AUTO) 74 % (42-75); PLATELET COUNT 357 10^3/uL (130-400); RED BLOOD COUNT 3.44 10^6/uL (4.35-5.85); RED CELL DISTRIBUTION WIDTH 14.1 % (10.0-14.5); WHITE BLOOD COUNT 12.5 10^3/uL (4.3-11.0)
[2018-08-25 06:50] LABS: ALANINE AMINOTRANSFERASE 23 U/L (0-55); ALBUMIN 3.6 GM/DL (3.2-4.5); ALKALINE PHOSPHATASE 118 U/L (40-136); BILIRUBIN,TOTAL 0.8 MG/DL (0.1-1.0); BUN/CREATININE RATIO 8; CALCIUM 8.7 MG/DL (8.5-10.1); CARBON DIOXIDE 18 MMOL/L (21-32); CHLORIDE 108 MMOL/L (98-107); CREATININE SERUM 0.96 MG/DL (0.60-1.30); GFR ESTIMATED > 60; GLUCOSE 161 MG/DL (70-105); POTASSIUM 3.6 MMOL/L (3.6-5.0); SODIUM 139 MMOL/L (135-145); TOTAL PROTEIN 6.5 GM/DL (6.4-8.2)
[2018-08-25 08:00] VITALS: BP 199/87
[2018-08-25] MEDS: PANTOPRAZOLE 40 MG (PROTONIX) VIAL IV SCH (09:06)
[2018-08-25] MEDS: inSUlin DETERMIR 1 UNIT/0.01 ML (LEVEMIR) CHARGE PER UNIT SQ SCH (09:06)
[2018-08-25] MEDS ORDERED: LOPERAMIDE 2 MG (IMODIUM) CAP PO PRN (10:00)
[2018-08-25] MEDS ORDERED: amLODIPine 5 MG (NORVASC) TAB PO NR (10:00)
[2018-08-25] MEDS ORDERED: AMLO5TAB7 PO (10:39)
[2018-08-25] MEDS ORDERED: MAGN400T7 PO (10:39)
--- NOTE | 2018-08-25 10:40 | Discharge Summary-Hospitalist ---
Diagnosis/Chief Complaint Date of Admission Aug 23, 2018 at 15:17 Date of Discharge Discharge Date: Aug 25, 2018 Admission Diagnosis Assessment: Severe refractory N/V Hemoccult + stools w/subtle hematemesis Leukocytosis Acute on chronic UTI placed on empiric abx coverage Involuntary movements and poor memory due to CVA 07/07 DM OOC Hypomagnesemia Hypokalemia Dehydration Plan: Dr Hernandez consultation PPI Mag and K+ replacement Pain control IV abx Check labs in am Discharge Diagnosis (1) Nausea and vomiting Status: Acute (2) Upper abdominal pain Status: Acute (3) Gastroenteritis Status: Acute (4) Neurogenic bladder Status: Chronic (5) Suprapubic catheter Status: Chronic (6) Poor prognosis Status: Acute (7) Acute renal insufficiency Status: Acute (8) Urinary tract infection Status: Acute (9) Hematemesis Status: Acute (10) Uncontrolled diabetes mellitus Status: Chronic (11) Leukocytosis Status: Acute (12) Hypomagnesemia Status: Acute (13) Hypokalemia Status: Acute (14) Prostate cancer Status: Chronic (15) CVA (cerebral vascular accident) Status: Chronic (16) Memory loss Status: Chronic (17) Involuntary movements Status: Chronic Discharge Summary Discharge Physical Exam Allergies: Coded Allergies: No Known Drug Allergies (Unverified , 08/23/18) Vitals & I&Os Vital Signs Date Time Temp Pulse Resp B/P (MAP) Pulse Ox O2 Delivery O2 Flow Rate FiO2 08/25/18 12:37 71 18 199/87 98 Room Air 08/25/18 08:00 97.1 General Appearance: No Apparent Distress, WD/WN, Chronically ill Respiratory: Chest Non Tender, Lungs Clear, Normal Breath Sounds, No Accessory Muscle Use, No Respiratory Distress Cardiovascular: Regular Rate, Rhythm, No Edema, No Gallop, No JVD, No Murmur, Normal Peripheral Pulses Neurologic/Psychiatric: Alert, Oriented x3, No Motor/Sensory Deficits, Normal Mood/Affect Hospital Course Hospital course: patient was admitted for abdominal pain and presumed acute on chronic UTI due to suprapubic pain and recent UTI so he was placed on NPO status along with IVF and magnesium supplement along with empiric abx and general surgery consultation Dr Hernandez who had performed his most recent EGD after he suffered a CVA. Patient did not require any surgical procedure. IVF maintained along with magnesium IV formulation and overall he improved enough to be DC with no abx due to UCx negative. Labs (last 24 hrs) Laboratory Tests 08/25/18 05:46: White Blood Count 12.5H, Red Blood Count 3.44L, Hemoglobin 9.7L, Hematocrit 29L , Mean Corpuscular Volume 86, Mean Corpuscular Hemoglobin 28, Mean Corpuscular Hemoglobin Concent 33, Red Cell Distribution Width 14.1, Platelet Count 357, Mean Platelet Volume 10.8H, Neutrophils (%) (Auto) 74, Lymphocytes (%) (Auto) 19 , Monocytes (%) (Auto) 7, Eosinophils (%) (Auto) 1, Basophils (%) (Auto) 0, Neutrophils # (Auto) 9.1H, Lymphocytes # (Auto) 2.3, Monocytes # (Auto) 0.9, Eosinophils # (Auto) 0.1, Basophils # (Auto) 0.0, Sodium Level 139, Potassium Level 3.6, Chloride Level 108H, Carbon Dioxide Level 18L, Anion Gap 13, Blood Urea Nitrogen 8, Creatinine 0.96, Estimat Glomerular Filtration Rate > 60, BUN/ Creatinine Ratio 8, Glucose Level 161H, Calcium Level 8.7, Corrected Calcium 9.0 , Magnesium Level 1.6L, Total Bilirubin 0.8, Aspartate Amino Transf (AST/SGOT) 50H, Alanine Aminotransferase (ALT/SGPT) 23, Alkaline Phosphatase 118, Total Protein 6.5, Albumin 3.6 08/25/18 06:03: Glucometer 179H Microbiology 08/23/18 Urine Culture - Final, Complete NO GROWTH Patient resulted labs reviewed. Pending Labs Discussion & Recommendations Discharge Planning: <30 minutes discharge planning Discharge Home Medications: Active Scripts Active Magnesium Oxide 400 Mg Tablet 400 Mg PO BID Amlodipine Besylate 5 Mg Tablet 5 Mg PO DAILY Nitrofurantoin (Nitrofurantoin Macrocrystal) 100 Mg Capsule 100 Mg PO BID Reported Levemir (Insulin Determir) 1,000 Units/10 Ml Soln 30 Units SQ HS Tramadol HCl 50 Mg Tablet 50 Mg PO BID PRN Bupropion HCl Sr (Bupropion HCl) 100 Mg Tablet.er 100 Mg PO BID Imodium A-D (Loperamide HCl) 2 Mg Capsule 2 Mg PO UD PRN Novolog Flexpen (Insulin Aspart) 300 Units/3 Ml Solution 25 Units SQ AC LAST FILLED 04-28-18 Metformin HCl 500 Mg Tablet 500 Mg PO BID Ferrous Sulfate 324 Mg Tablet.dr 324 Mg PO TID Vitamin B-12 (Cyanocobalamin (Vitamin B-12)) 1,000 Mcg Tablet 2,000 Mcg PO DAILY Metoprolol Tartrate 50 Mg Tablet 25 Mg PO BID TAKES 1/2 (50MG) TABLETS Urea 85 Gm Cream..g. TP BID PRN Mirtazapine 15 Mg Tablet 15 Mg PO HS LAST FILLED #45 04-22-18 Levemir (Insulin Determir) 1,000 Units/10 Ml Soln 10 Units SQ DAILY LAST FILLED 02-24-18 Atorvastatin Calcium 80 Mg Tablet 40 Mg PO HS TAKES 1/2 (80MG) TABLET Folic Acid 1 Mg Tablet 1 Mg PO DAILY Vitamin D3 (Cholecalciferol (Vitamin D3)) 1,000 Unit Capsule 1,000 Unit PO DAILY Protonix (Pantoprazole Sodium) 20 Mg Tablet.dr 20 Mg PO BID LAST FILLED #180 04-13-18 Duloxetine HCl 30 Mg Capsule.dr 90 Mg PO DAILY LAST FILLED #270 02-25-18 TAKES 3 (30MG) CAPSULES Lyrica (Pregabalin) 100 Mg Capsule 100 Mg PO TID LAST FILLED #84 02-13-18 Instructions to patient/family Please see electronic discharge instructions given to patient. Clinical Quality Measures DVT/VTE Risk/Contraindication: Risk Factor Score Per Nursin RFS Level Per Nursing on Admit: 4+=Very High Problem Qualifiers (1) Nausea and vomiting: Vomiting type: unspecified Vomiting Intractability: non-intractable Qualified Codes: R11.2 - Nausea with vomiting, unspecified (2) Urinary tract infection: Urinary tract infection type: catheter-associated UTI Indwelling urinary catheter type: cystostomy catheter Encounter type: subsequent encounter Qualified Codes: T83.510D - Infection and inflammatory reaction due to cystostomy catheter, subsequent encounter; N39.0 - Urinary tract infection, site not specified (3) Hematemesis: Nausea presence: with nausea Qualified Codes: K92.0 - Hematemesis (4) Uncontrolled diabetes mellitus: Diabetes mellitus type: type 2 Glycemic state: with hyperglycemia Qualified Codes: E11.65 - Type 2 diabetes mellitus with hyperglycemia (5) Leukocytosis: Leukocytosis type: leukemoid reaction Qualified Codes: D72.823 - Leukemoid reaction (6) CVA (cerebral vascular accident): CVA mechanism: unspecified Qualified Codes: I63.9 - Cerebral infarction, unspecified SUMMER ALCAZAR DO Aug 25, 2018 10:40
[2018-08-25] MEDS ORDERED: inSUlin ASPART (NovoLOG) 1 UNIT/0.01 ML (CHARGE PER UNIT) SQ SCH (11:00)
[2018-08-25] MEDS ORDERED: FERROUS SULF 325 MG (IRON) TAB PO SCH (12:00)
[2018-08-25 12:37] VITALS: BP 199/87
[2018-08-25] MEDS ORDERED: PREGABALIN 100 MG (LYRICA) CAPSULE PO SCH (13:00)
[2018-08-25] MEDS ORDERED: inSUlin DETERMIR 1 UNIT/0.01 ML (LEVEMIR) CHARGE PER UNIT SQ SCH (21:00)
[2018-08-25] MEDS ORDERED: PANTOPRAZOLE 20 MG TABLET (PROTONIX) PO SCH (21:00)
[2018-08-25] MEDS ORDERED: meTOprolol TARTRATE 25 MG (LOPRESSOR) TABLET PO SCH (21:00)
[2018-08-25] MEDS ORDERED: MIRTAZAPINE 15 MG (REMERON) TAB PO SCH (21:00)
[2018-08-25] MEDS ORDERED: buPROPion SR 100 MG (WELLBUTRIN SR) TAB PO SCH (21:00)
[2018-08-26] MEDS ORDERED: inSUlin DETERMIR 1 UNIT/0.01 ML (LEVEMIR) CHARGE PER UNIT SQ SCH (09:00)
[2018-08-26] MEDS ORDERED: DULoxetine 30 MG (CYMBALTA) CAP PO SCH (09:00)
[2018-08-26] MEDS ORDERED: amLODIPine 5 MG (NORVASC) TAB PO SCH (09:00)
== END 2018-08-25 11:27 | disposition home or self-care (01) | DRG 699 ==
LOC: EDUNIT# 11:55 → ER 11:56 → 4TH 15:17
PROVIDERS: ADMIT Family Medicine; ATTEND Family Medicine
DX: T83.510A Infection and inflammatory reaction due to cystostomy catheter, initial encounter (principal); N39.0 Urinary tract infection, site not specified; K52.9 Noninfective gastroenteritis and colitis, unspecified; E87.2 Acidosis; K92.0 Hematemesis; E83.42 Hypomagnesemia; E87.6 Hypokalemia; E86.0 Dehydration; E11.65 Type 2 diabetes mellitus with hyperglycemia; N31.9 Neuromuscular dysfunction of bladder, unspecified; I69.398 Other sequelae of cerebral infarction; R25.9 Unspecified abnormal involuntary movements; F06.8 Other specified mental disorders due to known physiological condition; I10 Essential (primary) hypertension; N28.9 Disorder of kidney and ureter, unspecified; E11.40 Type 2 diabetes mellitus with diabetic neuropathy, unspecified; H40.9 Unspecified glaucoma; D64.9 Anemia, unspecified; I48.91 Unspecified atrial fibrillation; E78.00 Pure hypercholesterolemia, unspecified; D72.823 Leukemoid reaction; F41.9 Anxiety disorder, unspecified; F32.9 Major depressive disorder, single episode, unspecified; M19.91 Primary osteoarthritis, unspecified site; Z85.46 Personal history of malignant neoplasm of prostate; Z90.79 Acquired absence of other genital organ(s); Z79.4 Long term (current) use of insulin; Z87.891 Personal history of nicotine dependence
CPT/HCPCS: 36415; 71250; 74176; 80053; 81000; 82271; 82962; 83690; 83735; 84484; 85007; 85025; 85027; 87088; 93005; 96361; 96365; 96372; 96375

== ENCOUNTER → 2018-10-05 | Outpatient (CLI) | payer MEDICARE ==
[~2018-10-05] MED LIST changes: +BUPR100T8 PO; +MAGN400T7 PO; +TRAM50TA2 PO
== END ==
LOC: WOUNDCARE 12:49
PROVIDERS: ATTEND Nurse Practitioner
DX: E11.621 Type 2 diabetes mellitus with foot ulcer (principal); L97.512 Non-pressure chronic ulcer of other part of right foot with fat layer exposed; L97.522 Non-pressure chronic ulcer of other part of left foot with fat layer exposed
CPT/HCPCS: 99215

== ENCOUNTER → 2018-10-05 | Outpatient (CLI) | payer MEDICARE ==
--- NOTE | 2018-10-05 18:39 | Diagnostic Imaging Report ---
INDICATION: Diabetes. Foot ulcer. COMPARISON: None. FINDINGS: Multiple radiographic views of the toes of the left foot were obtained. There is no radiographic evidence of acute fracture or dislocation. The plantar cortex of the distal phalanx of the second toe is somewhat irregular and poorly defined. No other distinct lytic or blastic lesions are seen. Joint spaces are maintained. No unexpected radiopaque foreign bodies are seen. IMPRESSION: 1. Somewhat ill-defined appearance to the plantar cortex of the distal phalanx of the second toe concerning for osteomyelitis. Correlation with MRI is recommended. 2. No acute fracture or dislocation. Dictated by: Dictated on workstation # [id number]
--- NOTE | 2018-10-05 18:47 | Diagnostic Imaging Report ---
INDICATION: Foot ulcer. FINDINGS: AP, oblique and lateral views of right toes are obtained. There is a cutaneous defect along the medial aspect of the foot at the level of the first metatarsophalangeal joint. There may be mild associated dystrophic calcification at this site however no definite bone destruction or periosteal reaction is seen. There is mild bunion deformity. Atherosclerotic calcifications are noted. There is no evidence of radiopaque foreign body. IMPRESSION: Dystrophic calcification in the soft tissue adjacent to first metatarsophalangeal joint may be the result of cellulitis. No definite bone destruction is identified. If indicated, further evaluation may be obtained with bone scan or MRI. Dictated by: Dictated on workstation # [id number]
== END ==
LOC: RAD 16:07
PROVIDERS: ATTEND Nurse Practitioner
DX: E11.621 Type 2 diabetes mellitus with foot ulcer (principal); L97.512 Non-pressure chronic ulcer of other part of right foot with fat layer exposed; L97.522 Non-pressure chronic ulcer of other part of left foot with fat layer exposed; L03.031 Cellulitis of right toe
CPT/HCPCS: 73660

== ENCOUNTER 2018-12-13 20:41 | Emergency (ER) | payer MEDICARE ==
[~2018-12-13] VITALS: Ht 167.6 cm; Wt 60.9 kg
[~2018-12-13 20:41] MED LIST changes: -AMLO2.5T3 PO; +AMLO2.5T4 PO; -AMLO5TAB7 PO; +AMLO5TAB9 PO; -GABA600T2 PO; +METR-145 PO; -METR-197 PO
[2018-12-13] MEDS ORDERED: SUCCINYLCHOLINE INJ 100 MG/5 ML SYR INJ ONE (20:43)
[2018-12-13] MEDS ORDERED: ETOMIDATE IV SOLN 20 MG/10 ML VIAL IV ONE (20:43)
--- NOTE | 2018-12-13 20:45 | NUR ---
PLACED NPA TO PROTECT PT'S AIRWAY
[2018-12-13] MEDS ORDERED: NS IV 1000 ML 1,000 ML ONE (20:52)
[2018-12-13] MEDS ORDERED: NS IV 1000 ML 1,000 ML IV SCH ×2 (20:53→23:00)
[2018-12-13 20:58] LABS: ABG BASE EXCESS -20.9 MMOL/L (-2.5-2.5); ABG OXYGEN SATURATION 96 % (94-100); ABG PCO2 25 MMHG (35-45); ABG PO2 107 MMHG (79-93)
--- NOTE | 2018-12-13 20:59 | NUR ---
DECISION TO INTUBATE MADE BY DR. LOYOLA TO PROTECT PT'S AIRWAY. 20MG OF ETOMIDATE AND 100MG OF SUCCINYCHOLINE PREPARED AND ADMINISTERED BY MAXINE OSWALD. PT INTUBATED AT 2102, 25 AT THE TEETH NOTED, SIZE 8.0 TUBE USED, BILATERAL BREATH SOUNDS HEARD BY DR. LOYOLA, PT TOLERATED PROCEDURE WELL.
[2018-12-13] MEDS ORDERED: CEFEPIME INJECTION 1,000 MG in NS (IVPB) 50 ML IV ONE (21:00)
[2018-12-13 21:02] LABS: ABG PH 7.09 (7.37-7.43)
[2018-12-13 21:03] LABS: ALLENS TEST YES-POS; INSPIRED O2 ROOM AIR; PATIENT TEMP 96.8; VENTILATOR NO
[2018-12-13] MEDS ORDERED: VANCOMYCIN INJECTION 1,000 MG in NS (IVPB) 250 ML IV STA (21:07)
--- NOTE | 2018-12-13 21:09 | NUR ---
PT SHOWS SIGNS OF RESTLESSNESS AND IS BITING THE INTUBATION TUBE, PROPOFOL DRIB TITRATED UP TO 30MCG/MIN.
[2018-12-13 21:11] LABS: BASOPHILS # (AUTO) 0.1 10^3/uL (0.0-0.1); BASOPHILS % (AUTO) 0 % (0-10); EOSINOPHILS % (AUTO) 0 % (0-10); HEMATOCRIT 36 % (40-54); HEMOGLOBIN 11.9 G/DL (13.3-17.7); LYMPHOCYTES # (AUTO) 4.5 X 10^3 (1.0-4.0); LYMPHOCYTES % (AUTO) 19 % (12-44); MEAN CORPUSCULAR HEMOGLOBIN 28 PG (25-34); MEAN CORPUSCULAR HGB CONC 33 G/DL (32-36); MEAN CORPUSCULAR VOLUME 86 FL (80-99); MEAN PLATELET VOLUME 11.7 FL (7.4-10.4); MONOCYTES # (AUTO) 0.9 X 10^3 (0.0-1.0); MONOCYTES % (AUTO) 4 % (0-12); NEUTROPHILS # (AUTO) 17.8 X 10^3 (1.8-7.8); NEUTROPHILS % (AUTO) 76 % (42-75); PLATELET COUNT 401 10^3/uL (130-400); RED CELL DISTRIBUTION WIDTH 14.4 % (10.0-14.5); WHITE BLOOD COUNT 23.3 10^3/uL (4.3-11.0)
--- NOTE | 2018-12-13 21:13 | ED Neurological Problem ---
General Stated Complaint: UNRESPONSIVE Source: patient, spouse Exam Limitations: clinical condition (Non-verbal) History of Present Illness Date Seen by Provider: Dec 13, 2018 Time Seen by Provider: 20:40 Initial Comments Patient presents in the ambulance bay with his and the truck. She had her nephew helped unload him and the truck because she said he went unresponsive is from the mouth and drink some shaking motions. He has an indwelling catheter suprapubic. His feels further information that he was lying on the bed complaining for past couple days of feeling sick body aches all over and tried some of his tramadol but it did not help. No cough fevers chills nausea vomiting diarrhea or constipation. She said that he started flopping in the bed ring and no longer answering her questions and she said his eyes rolled up in the back of his head. 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 He has had one other stroke in June 2018 and he was flown to . At that time he was discovered to have paroxysmal atrial fibrillation but he was not initiated on blood thinners. His is not sure why. Last time he saw his doctor was a month ago and that's when he was having some general body aches and so they gave him tramadol. He has made clear in the past he desires to be a no code DO NOT RESUSCITATE. His indwelling Dawson catheter is because of a history of prostate cancer years ago and chronic obstruction. He does not have a history of seizure disorder. Last known well time was 1999. His symptoms at the time of his last stroke in June for some left sided weakness but his says he uses a cane or walker and did not have very any residual neural deficits. Allergies and Home Medications Allergies Coded Allergies: No Known Drug Allergies (Unverified , 08/23/18) Home Medications Amlodipine Besylate 5 Mg Tablet, 5 MG PO DAILY Prescribed by: SUMMER ALCAZAR on 08/25/18 1039 Atorvastatin Calcium 80 Mg Tablet, 40 MG PO HS, (Reported) TAKES 1/2 (80MG) TABLET Bupropion HCl 100 Mg Tablet.er, 100 MG PO BID, (Reported) Cholecalciferol (Vitamin D3) 1,000 Unit Capsule, 1,000 UNIT PO DAILY, (Reported) Cyanocobalamin (Vitamin B-12) 1,000 Mcg Tablet, 2,000 MCG PO DAILY, (Reported) Duloxetine HCl 30 Mg Capsule.dr, 90 MG PO DAILY, (Reported) LAST FILLED #270 02-25-18 TAKES 3 (30MG) CAPSULES Ferrous Sulfate 324 Mg Tablet.dr, 324 MG PO TID, (Reported) Folic Acid 1 Mg Tablet, 1 MG PO DAILY, (Reported) Insulin Aspart 300 Units/3 Ml Solution, 25 UNITS SQ AC, (Reported) LAST FILLED 25 18 Insulin Determir 1,000 Units/10 Ml Soln, 10 UNITS SQ DAILY, (Reported) LAST FILLED 18 Insulin Determir 1,000 Units/10 Ml Soln, 30 UNITS SQ HS, (Reported) Loperamide HCl 2 Mg Capsule, 2 MG PO UD PRN for DIARRHEA, (Reported) Magnesium Oxide 400 Mg Tablet, 400 MG PO BID Prescribed by: SUMMER ALCAZAR on 08/25/18 1039 Metformin HCl 500 Mg Tablet, 500 MG PO BID, (Reported) Metoprolol Tartrate 50 Mg Tablet, 25 MG PO BID, (Reported) TAKES 1/2 (50MG) TABLETS Mirtazapine 15 Mg Tablet, 15 MG PO HS, (Reported) LAST FILLED #45 18 Pantoprazole Sodium 20 Mg Tablet.dr, 20 MG PO BID, (Reported) LAST FILLED #180 18 Pregabalin 100 Mg Capsule, 100 MG PO TID, (Reported) LAST FILLED #84 18 Tramadol HCl 50 Mg Tablet, 50 MG PO BID PRN for PAIN-MODERATE, (Reported) Urea 85 Gm Cream..g., TP BID PRN for DRY FEET, (Reported) Patient Home Medication List Home Medication List Reviewed: Yes Review of Systems Review of Systems Constitutional: see HPI (Provided by his as the patient is nonresponsive verbally); No chills, No diaphoresis, No fever Eyes: Blindness Ears, Nose, Mouth, Throat: denies ear pain, denies ear discharge Respiratory: No cough, No phlegm, No short of breath, No wheezing Cardiovascular: No chest pain, No edema, No Hx of Intervention, No palpitations , No syncope, No vascular heart diseas Gastrointestinal: No abdominal pain, No constipation, No diarrhea, No nausea, No vomiting Genitourinary: No discharge, No dysuria Musculoskeletal: No back pain, No joint pain; muscle twitching Past Akpzlhy-Ienhbf-Qgkjgh Hx Patient Social History Alcohol Use: Occasionally Uses Alcohol Beverage of Choice: Beer Recreational Drug Use: Yes Drug of Choice: MJ Smoking Status: Former Smoker Type Used: Cigarettes Former Smoker, Quit: Oct 20, 2014 2nd Hand Smoke Exposure: No Recent Foreign Travel: No Contact w/Someone Who Travel: No Recent Hopitalizations: No Immunizations Up To Date Tetanus Booster (TDap): Less than 5yrs PED Vaccines UTD: No Date of Pneumonia Vaccine: Jul 17, 2015 Date of Influenza Vaccine: Jul 17, 2015 Seasonal Allergies Seasonal Allergies: No Past Medical History Surgeries: Yes (HEART CATH/ JAW SURGERY) Bladder Surgery, Cardiac, Prostatectomy Respiratory: No (fmr smkr) Currently Using CPAP: No Currently Using BIPAP: No Cardiac: Yes (heart cath) Atrial Fibrillation, High Cholesterol, Hypertension Neurological: Yes Neuropathy, Stroke Reproductive Disorders: No Sexually Transmitted Disease: No HIV/AIDS: No Genitourinary: Yes (suprapubic catheter) Prostate Problems Gastrointestinal: Yes Gastroesophageal Reflux, Chronic Diarrhea, C-Diff Musculoskeletal: Yes (CHRONIC NECK AND BACK PAIN ) Arthritis, Chronic Back Pain Endocrine: Yes Diabetes, Insulin dep HEENT: No Glaucoma Loss of Vision: Right Cancer: Yes Prostate Did You Recieve Any Treatments: Yes What Type of Treatment Did You: Surgical Intervention Psychosocial: Yes Anxiety, Depression Integumentary: No Blood Disorders: No Adverse Reaction/Blood Tranf: No Family Medical History Family history: Hypertension 03 FATHER, Onset:40's - 50 03 MOTHER, Onset:40's - 50 History of - respiratory disease 03 MOTHER, Onset:50's - 60 Myocardial infarction 03 FATHER 03 MOTHER No Family History of: Abdominal aortic aneurysm Colbert's disease Alcoholism Aphasia Cancer Cancer of colon Cataract Chest pain Congenital heart disease Congestive heart failure Cystic fibrosis Dementia Dysphagia Family history: Allergy Family history: Alzheimer's disease Family history: Arthritis Family history: Asthma Family history: Breast disease Family history: Cardiovascular disease Family history: Coronary thrombosis Family history: Diabetes mellitus Family history: Gastrointestinal disease Family history: Glaucoma Family history: Osteoporosis Family history: Thyroid disorder Headache Hearing loss Heart disease Hereditary disease History of - anemia History of - disorder History of drug abuse Human immunodeficiency virus (HIV) seropositivity Hypercholesterolemia Infertile Kidney disease Malignant neoplasm of lung Parkinson's disease Prostate cancer Psychotic disorder Seizure disorder Stroke Tuberculosis Visual impairment Heart Disease, Hypertension Physical Exam Vital Signs Vital Signs - First Documented 12/13/18 12/13/18 12/13/18 21:19 22:08 23:15 Temp 97.6 Pulse 92 Resp 23 B/P (MAP) 149/89 Pulse Ox 100 O2 Delivery Mechanical Ventilator FiO2 40 Capillary Refill : Height, Weight, BMI Height: 5'6.00" Weight: 134lbs. 5.0oz. [id number]; 21.7 BMI Method:Stated General Appearance: severe distress, thin, other (Chronically ill) HEENT: TMs normal, pharynx normal (free of vomitus or foreign debris no wounds on the tongue or cheek noted), other (Right pupil is blown nonresponsive to light and accommodation 8 mm. Left pupil is 4 mm nonresponsive to light) Neck: non-tender, full range of motion, normal inspection Respiratory: lungs clear, normal breath sounds, no respiratory distress, no accessory muscle use Cardiovascular: normal peripheral pulses, regular rate, rhythm (70-80 heart rate), no edema Peripheral Pulses: 2+ Dorsalis Pedis (R), 2+ Left Dors-Pedis (L) Gastrointestinal: soft, no organomegaly, abnormal bowel sounds (No bowel sounds heard), other (Suprapubic catheter in place) Extremities: no pedal edema, slow capillary refill, other (Bruises of various ages on his lower extremities.) Neurologic/Psychiatric: other (GCS 3) Skin: other (With slightly has a chronic wound that does not appear erythematous on his great toe plantar side right foot. Melanotic looking plaque on his left anterior palencia.) Stroke Onset of Symptoms Date of Onset of Symptoms: Dec 13, 2018 Time of Symptom Onset: 20:00 Onset of Symptoms: Yes Symptoms onset unknown: No NIH Stroke Scale Assessment Select: Initial Level of Consciousness: 3=NoResponse/Reflex motor (3), Level of Consciousness-Questions: 2=Answer neither question (2), LOC Commands: 2= Performs neither task (2), Gaze: Normal (0), Visual Jackson: 3=Bilateral Hemianopia (3), Facial Movement (Facial Paresis): 0=Normal symmetrical mnt (0), Motor Function-Arms Right: 4=No movement (4), Motor Function-Arms Left: 4=No movement (4), Motor Function-Legs Right: 4=No movement (4), Motor Function-Legs Left: 4=No movement (4), Limb Ataxia: 2=Present in two limbs (2), Sensory: 2= Severe to total loss (2), Best Language: 3=Mute (3), Dysarthria: 3=Intubated/ Physical villalobos (3), Extinction & Inattention: 0=No abnormality (0), Total: 36 Stroke Thrombolytic Exclusion Age 18 or Over: Yes History of CVA: Yes Uncontrolled Coagulation Defec: No Intracranial Hemorrhage: No Severe Hypertension: No GI or Bleed: No Subarachnoid Hemorrhage: No Intracranial Neoplasm/Aneurysm: No Oral Anticoagulants: No Surgery or Trauma: No Puncture of Non-Compressible V: No Recent CPR: No Diabetic Hemorrhagic Retinopat: No Organ Biopsy: No Recent Obstetric Delivery: No Glucose: No (300) Significant Hepatic Dysfunctio: No NIH Stoke Scale >22: Yes Bacterial Endocarditis: No Pericarditis: No Improving Symptoms: No Platelets: No TPA Contraindication: Yes IV - TPa Received IV - TPa Procedure Performed?: No Focused Exam Sepsis Stage: Severe Sepsis Possible Source: Genitouriary Lactate Level 12/13/18 20:50: Lactic Acid Level > 13.35*H Time of Focused Exam: 23:30 Respiratory: Lungs Clear, Normal Breath Sounds, No Accessory Muscle Use, No Respiratory Distress, Other (Intubated with an 8.0 at 2013) Cardiovascular: Regular Rate, Rhythm, No Edema, Normal Peripheral Pulses Capillary Refill: Less Than 3 Seconds Peripheral Pulses: 2+ Radial Pulses (R), 2+ Radial Pulses (L) Skin: normal color, warm/dry Lactic Acid Level Laboratory Tests Test 12/13/18 20:50 Lactic Acid Level > 13.35 MMOL/L (0.50-2.00) *H Within 3hrs of presentation: Admin fluids, Admin ABX, Blood cultures prior to ABX's, Focus exam, Lactate level Procedures/Interventions Reason for Intubation: GCS 3. Not protecting airway Date of ETT Placement: Dec 13, 2018 Time of ETT Placement: 21:00 Intubation Method: orotracheal Tube Size: 8.0 Medications: Etomidate (20), Succinylcholine (100) Positive End Tide CO2: Yes Breath Sounds after Intubation: bilateral-equal Intubation Complications: no complications Post Intubation Xray: Yes ET tube 2 and half cm above dakota in good position. No PTX First attempt we positioned the patient given him succinylcholine and etomidate and when he became appropriately paralyzed using a 3 Jose Alejandro with a standby bougie we may not first attempt got a good view of the vocal cords and the light gave out. We switched the handle out and started bagging the patient again his oxygen sats never went below 100%. On second attempt we got a good view of the vocal cords watch the ET tube pass the vocal cords and stopped 24 the teeth. We removed the obturator and inflated the cuff put on the CO2 capnography paper indicator and gave of breath. On expiration he fogged tube and change the color of the paper. We heard good breath sounds bilaterally and no breath sounds over the epigastric region. His oxygen sats stayed in the 100% entire time. End-tidal CO2 was helped up and reading 18. Put him on a ventilator at 350 mL@16 breaths per minute people 5 oxygen at FiO2 of 0.30. Progress/Results/Core Measures Results/Orders Lab Results Laboratory Tests Test 12/13/18 20:47 12/13/18 20:50 12/13/18 20:52 12/13/18 21:09 Range/Units Glucometer 393 H 70-110 MG/DL White Blood Count 23.3 H 4.3-11.0 10^3/uL Red Blood Count 4.20 L 4.35-5.85 10^6/uL Hemoglobin 11.9 L 13.3-17.7 G/DL Hematocrit 36 L 40-54 % Mean Corpuscular Volume 86 80-99 FL Mean Corpuscular Hemoglobin 28 25-34 PG Mean Corpuscular Hemoglobin Concent 33 32-36 G/DL Red Cell Distribution Width 14.4 10.0-14.5 % Platelet Count 401 H 130-400 10^3/uL Mean Platelet Volume 11.7 H 7.4-10.4 FL Neutrophils (%) (Auto) 76 H 42-75 % Lymphocytes (%) (Auto) 19 12-44 % Monocytes (%) (Auto) 4 0-12 % Eosinophils (%) (Auto) 0 0-10 % Basophils (%) (Auto) 0 0-10 % Neutrophils # (Auto) 17.8 H 1.8-7.8 X 10^3 Lymphocytes # (Auto) 4.5 H 1.0-4.0 X 10^3 Monocytes # (Auto) 0.9 0.0-1.0 X 10^3 Eosinophils # (Auto) 0.0 0.0-0.3 10^3/uL Basophils # (Auto) 0.1 0.0-0.1 10^3/uL Neutrophils % (Manual) 76 % Lymphocytes % (Manual) 20 % Monocytes % (Manual) 3 % Eosinophils % (Manual) 0 % Basophils % (Manual) 1 % Band Neutrophils 0 % Hypersegmented Neutrophils SLIGHT Blood Morphology Comment NORMAL Prothrombin Time 14.7 12.2-14.7 SEC INR Comment 1.2 0.8-1.4 Activated Partial Thromboplast Time 27 24-35 SEC Sodium Level 138 135-145 MMOL/L Potassium Level 3.3 L 3.6-5.0 MMOL/L Chloride Level 99 98-107 MMOL/L Carbon Dioxide Level 8 *L 21-32 MMOL/L Anion Gap 31 H 5-14 MMOL/L Blood Urea Nitrogen 17 7-18 MG/DL Creatinine 1.60 H 0.60-1.30 MG/DL Estimat Glomerular Filtration Rate 44 BUN/Creatinine Ratio 11 Glucose Level 423 *H 70-105 MG/DL Lactic Acid Level > 13.35 *H 0.50-2.00 MMOL/L Calcium Level 10.6 H 8.5-10.1 MG/DL Corrected Calcium 10.4 H 8.5-10.1 MG/DL Total Bilirubin 0.6 0.1-1.0 MG/DL Aspartate Amino Transf (AST/SGOT) 22 5-34 U/L Alanine Aminotransferase (ALT/SGPT) 12 0-55 U/L Alkaline Phosphatase 193 H 40-136 U/L Troponin I < 0.028 <0.028 NG/ML Total Protein 8.5 H 6.4-8.2 GM/DL Albumin 4.2 3.2-4.5 GM/DL Blood Gas Puncture Site LEFT RADIAL Blood Gas Patient Temperature 96.8 Arterial Blood pH 7.09 *L 7.37-7.43 Arterial Blood Partial Pressure CO2 25 L 35-45 MMHG Arterial Blood Partial Pressure O2 107 H 79-93 MMHG Arterial Blood HCO3 7 *L 23-27 MMOL/L Arterial Blood Total CO2 8.0 L 21.0-31.0 MMOL/L Arterial Blood Oxygen Saturation 96 94-100 % Arterial Blood Base Excess -20.9 L -2.5-2.5 MMOL/L Leroy Test YES-POS Blood Gas Ventilator Setting NO Blood Gas Inspired Oxygen ROOM AIR Urine Color YELLOW Urine Clarity SLIGHTLY CLOUDY Urine pH 5 5-9 Urine Specific [place] 1.020 1.016-1.022 Urine Protein 4+ NEGATIVE Urine Glucose (UA) 4+ H NEGATIVE Urine Ketones 3+ H NEGATIVE Urine Nitrite POSITIVE H NEGATIVE Urine Bilirubin NEGATIVE NEGATIVE Urine Urobilinogen NORMAL NORMAL MG/DL Urine Leukocyte Esterase 3+ H NEGATIVE Urine RBC (Auto) 3+ H NEGATIVE Urine RBC 0-2 /HPF Urine WBC 25-50 H /HPF Urine Crystals NONE /LPF Urine Bacteria MODERATE H /HPF Urine Casts NONE /LPF Urine Mucus NEGATIVE /LPF Urine Yeast LARGE H /HPF Urine Culture Indicated NO Micro Results Microbiology 12/13/18 Influenza Types A,B Antigen (LUIS) - Final, Complete My Orders Orders - RITIKA LOYOLA Arterial Blood Gas (12/13/18 20:54) Ns Iv 1000 Ml (Sodium Chloride 0.9%) (12/13/18 20:52) Ct Head Wo (12/13/18 20:53) Saline Lock/Iv-Start (12/13/18 20:53) Cbc With Automated Diff (12/13/18 20:53) Comprehensive Metabolic Panel (12/13/18 20:53) Blood Culture (12/13/18 20:53) Sputum Culture (12/13/18 20:53) Urinalysis (12/13/18 20:53) Urine Culture (12/13/18 20:53) Protime With Inr (12/13/18 20:53) Partial Thromboplastin Time (12/13/18 20:53) Chest 1 View, Ap/Pa Only (12/13/18 20:53) Saline Lock/Iv-Start (12/13/18 20:53) Saline Lock/Iv-Start (12/13/18 20:53) Ekg Tracing (12/13/18 20:53) Troponin I (12/13/18 20:53) Vital Signs Adult Sepsis Patie Q15M (12/13/18 20:53) O2 (12/13/18 20:53) Remove Rings In Anticipation O (2/24/19 20:53) Lactic Acid Analyzer (12/13/18 20:53) Influenza A And B Antigens (12/13/18 20:53) Ns Iv 1000 Ml (Sodium Chloride 0.9%) (12/13/18 20:53) Cefepime Injection (Maxipime Injection) (12/13/18 21:00) Saline Lock/Iv-Start (12/13/18 20:53) Arterial Blood Gas (12/13/18 21:04) Lorazepam Injection (Ativan Injection) (12/13/18 21:15) Vancomycin Injection (Vancomycin Injecti (12/13/18 21:07) Accucheck Stat ONCE (12/13/18 21:07) Midazolam Injection (Versed Injection) (12/13/18 21:15) Manual Differential (12/13/18 20:50) Chest 1 View, Ap/Pa Only (12/13/18 21:30) Midazolam Injection (Versed Injection) (12/13/18 22:30) Insulin (Regular) Human (Humulin R (Per (12/13/18 22:24) Insulin (Regular) Human (Humulin R (Per (12/13/18 22:45) Ns Iv 1000 Ml (Sodium Chloride 0.9%) (12/13/18 23:00) Propofol Drip (Icu) (Diprivan Drip (Icu) (12/13/18 23:04) Propofol Drip (Icu) (Diprivan Drip (Icu) (12/13/18 23:15) Vital Signs/I&O 12/13/18 12/13/18 12/13/18 21:19 22:08 23:15 Temp 97.6 Pulse 92 85 Resp 23 27 18 B/P (MAP) 149/89 Pulse Ox 100 100 100 O2 Delivery Mechanical Ventilator FiO2 40 30 Progress Progress Note : Time: 22:25 Progress Note The patient's septic shock probably secondary to UTI. We've increased his propofol 40 and he still having some independent movement like his stuttering and coming to sober any give him another 5 mg Versed for comfort and amnesia. Initial ECG Impression Date: Dec 13, 2018 Initial ECG Impression Time: 21:04 Initial ECG Rate: 112 Initial ECG Rhythm: S.Tach Initial ECG Intervals: Normal Initial ECG Impression: Normal Comment No ST elevation or depression. Diagnostic Imaging Diagonstic Imaging: Xray Plain Films/CT/US/NM/MRI: chest Comments Postintubation and post-NG tube chest x-ray demonstrated the ET tube about 2 and half centimeters above the dakota in good position with good lung jackson and no evidence of pneumothorax. Reviewed: Reviewed by Me Diagonstic Imaging: CT Plain Films/CT/US/NM/MRI: head Comments Evidence of old stroke on the right lateral frontal lobe. No evidence of intracranial hemorrhage. [facility] [place], [place] NAME: VALDEZ PRITCHETT [employer] REC#: [id number] PT STATUS: REG ER : 1960 PHYSICIAN: RITIKA LOYOLA MD ADMIT DATE: 12/13/18/ER Draft Date of Exam:12/13/18 CT HEAD WO PROCEDURE: CT head without contrast. TECHNIQUE: Multiple contiguous axial images were obtained through the brain without the use of intravenous contrast. INDICATION: Unresponsive. COMPARISON: 07/01/2018. FINDINGS: Since the previous exam, there has been interval development of large area of decreased attenuation with loss of normal lara-white matter junction differentiation involving the posterolateral left frontal lobe extending through the insula and into the right temporal lobe. Findings are consistent with moderate-sized old right MCA infarct. Similar appearing, yet smaller old infarct is also noted involving the posterior medial left temporal lobe. This is new when compared to 07/01/2018 as well. Ventricles and cortical sulci are mildly diffusely prominent consistent with age-related parenchymal volume loss. There are also confluent areas of decreased attenuation within the periventricular deep white matter consistent with chronic small vessel ischemic changes. There is no evidence of intra-axial or extra-axial intracranial hemorrhage. There is no mass effect or midline shift. Bony calvarium is intact. Included portions of paranasal sinuses and mastoid air cells are clear. IMPRESSION: 1. Interval development of moderate-sized old infarct of the right MCA distribution and smaller old infarct involving the posteromedial left temporal lobe. Given the bilaterality, thromboembolic event should be considered. 2. No acute intracranial abnormality. No CT evidence of acute infarct, mass or hemorrhage. 3. Background age-related parenchymal volume loss and chronic small vessel ischemic changes in the deep white matter. Dictated on workstation # [id number] Dict: 12/13/182221 Trans: 12/13/182232 [facility] [id number] Interpreted by: JAMES MCKENZIE MD Electronically signed by: Reviewed: Reviewed by Me Critical Care Note Critical Care Start Time: 20:45 Stop Time: 21:47 Total Time (minutes) 62 Progress Patient was intubated to protect his airway. A milligram of Ativan and was given as he was already in a postictal state no longer showing any evidence of seizure-like activity shortly after arriving in the ER. When he was dropped off in the ambulance patient definitely was having some seizure-like activity. Stroke is definitely the differential but the patient has a strong urine odor has a indwelling catheter in Jonathan's also suspect sepsis. His heart rate is not elevated and his blood pressure was high 180s systolic when he first got here. It went down to 115 systolic shortly after arrival. Went ahead and intubated him and then OG tube in. ABG revealed severe metabolic acidosis and his lactate was unreadable. Her getting labs giving him cefepime and vancomycin. We'll scan his head looking for evidence of a stroke hemorrhagic Or otherwise. Blood sugar was over 300 watch that. We are giving a total 2 L which would be over 30 mL/kg based on a weight 135 pounds last time he was here. Is very frail cachectic- looking individual who is medically clear his that he does not want to be resuscitated should his heart stop. We will allow natural , DO NOT RESUSCITATE. We have called and air ambulance is available. His pH is 7.09 so not going to give bicarbonate just yet. Chest x-ray demonstrates good position 2 -1/2 cm above the dakota of the chest tube. We started him on propofol as he was starting to wake up and move all 4 extremities independently and then having some biting of the tube and seizure-like activity so 5 mg of Versed were given in addition to the propofol. We had access his veins via intraosseous until he gets some other peripheral started. His oxygen saturations stayed in the upper 90s on room air and is PO2 on ABG was over 100. His end-tidal stayed around 15-20 prior to and after intubation. We suctioned the oropharynx but he had not vomited at any point prior to or during intubation. Departure Impression Primary Impression: Observed seizure-like activity Additional Impressions: Septic shock UTI (urinary tract infection) Qualified Codes: T83.511A - Infection and inflammatory reaction due to indwelling urethral catheter, initial encounter; N39.0 - Urinary tract infection , site not specified Metabolic acidosis Hyperglycemia Electrolyte and fluid disorder Disposition: XFER SHT-TRM HOSP Condition: Critical Transfer Time Spoke to Accepting Phy: 22:[address] Chu, critical care at [facility] [place], [place] accepts the patient. He says they cannot accept the patient if the patient is in status epilepticus. Versed was given for amnesia and prevention but the patient does not have any further evidence of seizure-like activity post intubation. Transfer Time: 23:52 Transfer Facility: [facility] [place], [place] Method of Transfer: Air Departure-Patient Inst. [facility] [facility] [place] Primary Care Physician RITIKA LOYOLA Dec 13, 2018 21:13
[2018-12-13 21:14] LABS: INR 1.2 (0.8-1.4); PROTHROMBIN TIME PATIENT 14.7 SEC (12.2-14.7)
[2018-12-13] MEDS ORDERED: LORazepam INJ 2 MG/ML (ATIVAN) VIAL IVP ONE (21:15)
[2018-12-13] MEDS ORDERED: MIDAZOLAM 5 MG/5 ML (VERSED) VIAL IVP ONE ×2 (21:15→22:30)
[2018-12-13 21:19] VITALS: BP 167/68
[2018-12-13 21:22] LABS: ALANINE AMINOTRANSFERASE 12 U/L (0-55); ALBUMIN 4.2 GM/DL (3.2-4.5); ALKALINE PHOSPHATASE 193 U/L (40-136); BILIRUBIN,TOTAL 0.6 MG/DL (0.1-1.0); BUN/CREATININE RATIO 11; CALCIUM 10.6 MG/DL (8.5-10.1); CHLORIDE 99 MMOL/L (98-107); GFR ESTIMATED 44; POTASSIUM 3.3 MMOL/L (3.6-5.0); SODIUM 138 MMOL/L (135-145); TOTAL PROTEIN 8.5 GM/DL (6.4-8.2)
[2018-12-13 21:29] LABS: BILIRUBIN,URINE NEGATIVE (NEGATIVE); CLARITY,URINE SLIGHTLY CLOUDY; GLUCOSE, URINE (UA) 4+ (NEGATIVE); KETONES,URINE 3+ (NEGATIVE); LEUKOCYTE ESTERASE ,URINE 3+ (NEGATIVE); NITRITE,URINE POSITIVE (NEGATIVE); PH,URINE 5 (5-9); PROTEIN,URINE 4+ (NEGATIVE); UROBILINOGEN,URINE NORMAL (NORMAL)
[2018-12-13 21:35] LABS: BAND NEUTROPHILS 0 %; BASOPHILS % (MANUAL) 1 %; EOSINOPHILS % (MANUAL) 0 %; HYPERSEGMENTED NEUT SLIGHT; LYMPHOCYTES % (MANUAL) 20 %; MONOCYTES % (MANUAL) 3 %; NEUTROPHILS % (MANUAL) 76 %; RBC MORPH NORMAL
[2018-12-13 21:39] LABS: RBC,URINE 0-2 /HPF; WBC,URINE 25-50 /HPF
[2018-12-13 21:40] LABS: BACTERIA,URINE MODERATE /HPF; YEAST,URINE LARGE /HPF
[2018-12-13 21:41] LABS: COLOR,URINE YELLOW
--- NOTE | 2018-12-13 21:42 | NUR ---
PT TO CT VIA COT IN STABLE CONDITION
--- NOTE | 2018-12-13 21:55 | NUR ---
PT RETURNS FROM CT IN STABLE CONDITION, PT REMAINS UNRESPONSIVE, NO S/S OF DISTRESS
[2018-12-13 22:02] LABS: CARBON DIOXIDE 8 MMOL/L (21-32)
[2018-12-13 22:03] LABS: GLUCOSE 423 MG/DL (70-105)
--- NOTE | 2018-12-13 22:07 | Diagnostic Imaging Report ---
INDICATION: Line placement. COMPARISON: 08/01/2018 FINDINGS: Single frontal radiographic view of the chest was obtained and demonstrates indwelling endotracheal tube with tip below the clavicular heads and above the dakota. Cardiac silhouette and pulmonary vasculature within normal limits. Lungs are clear. There is no focal consolidation, large effusion, nor pneumothorax. Bony structures show no gross acute abnormalities. IMPRESSION: 1. Indwelling endotracheal tube as above. Otherwise, no acute cardiopulmonary process. Dictated by: Dictated on workstation # [id number]
--- NOTE | 2018-12-13 22:09 | Diagnostic Imaging Report ---
INDICATION: Line placement. COMPARISON: Earlier the same day FINDINGS: Single frontal radiographic view of the chest was obtained and demonstrates indwelling endotracheal tube with tip below the clavicular heads and above the [place]. New gastric tube is seen with side port approximately 6 cm above the GE junction. Lungs remain clear. There is no focal consolidation, large effusion, nor pneumothorax. Cardiac silhouette and pulmonary vasculature within normal limits as well. IMPRESSION: 1. Indwelling lines and tubes as above. May want to consider advancing indwelling gastric tube. 2. Otherwise, no new acute cardiopulmonary process. Dictated by: Dictated on workstation # [id number]
[2018-12-13] MEDS ORDERED: inSUlin (REGULAR) HUMAN 1 UNIT/0.01 ML (CHARGE PER UNIT) ONE (22:24)
--- NOTE | 2018-12-13 22:33 | Diagnostic Imaging Report ---
PROCEDURE: CT head without contrast. TECHNIQUE: Multiple contiguous axial images were obtained through the brain without the use of intravenous contrast. INDICATION: Unresponsive. COMPARISON: 07/01/2018. FINDINGS: Since the previous exam, there has been interval development of large area of decreased attenuation with loss of normal lara-white matter junction differentiation involving the posterolateral left frontal lobe extending through the insula and into the right temporal lobe. Findings are consistent with moderate-sized old right MCA infarct. Similar appearing, yet smaller old infarct is also noted involving the posterior medial left temporal lobe. This is new when compared to 07/01/2018 as well. Ventricles and cortical sulci are mildly diffusely prominent consistent with age-related parenchymal volume loss. There are also confluent areas of decreased attenuation within the periventricular deep white matter consistent with chronic small vessel ischemic changes. There is no evidence of intra-axial or extra-axial intracranial hemorrhage. There is no mass effect or midline shift. Bony calvarium is intact. Included portions of paranasal sinuses and mastoid air cells are clear. IMPRESSION: 1. Interval development of moderate-sized old infarct of the right MCA distribution and smaller old infarct involving the posteromedial left temporal lobe. Given the bilaterality, thromboembolic event should be considered. 2. No acute intracranial abnormality. No CT evidence of acute infarct, mass or hemorrhage. 3. Background age-related parenchymal volume loss and chronic small vessel ischemic changes in the deep white matter. Dictated by: Dictated on workstation # [id number]
[2018-12-13] MEDS ORDERED: inSUlin (REGULAR) HUMAN 1 UNIT/0.01 ML (CHARGE PER UNIT) SC ONE (22:45)
--- NOTE | 2018-12-13 22:54 | NUR ---
[facility] STAFF REQUEST 1000MG/100ML BOTTLE OF PROPOFOL TO ADMINISTER IN FLIGHT, ISSED PER DR. LOYOLA Addendum: 12/16/18 at 0005 by [id number] [facility] STAFF REQUEST 1000MG/100ML BOTTLE OF PROPOFOL TO ADMINISTER IN FLIGHT, ISSUED PER DR. LOYOLA
[2018-12-13] MEDS ORDERED: PROPOFOL DRIP (ICU) 100 ML IV ONE (23:04)
[2018-12-13] MEDS ORDERED: PROPOFOL DRIP (ICU) 100 ML IV SCH (23:15)
[2018-12-13 23:52] VITALS: BP 149/89
== END 2018-12-13 23:28 | disposition short-term general hospital (02) ==
LOC: EDUNIT# 20:41 → ER 20:42
DX: R25.9 Unspecified abnormal involuntary movements (principal); A41.9 Sepsis, unspecified organism; R65.21 Severe sepsis with septic shock; N39.0 Urinary tract infection, site not specified; E87.2 Acidosis; E11.65 Type 2 diabetes mellitus with hyperglycemia; E87.8 Other disorders of electrolyte and fluid balance, not elsewhere classified; I48.91 Unspecified atrial fibrillation; E78.00 Pure hypercholesterolemia, unspecified; I10 Essential (primary) hypertension; K21.9 Gastro-esophageal reflux disease without esophagitis; E11.40 Type 2 diabetes mellitus with diabetic neuropathy, unspecified; F41.9 Anxiety disorder, unspecified; F32.9 Major depressive disorder, single episode, unspecified; Z82.49 Family history of ischemic heart disease and other diseases of the circulatory system; Z87.19 Personal history of other diseases of the digestive system; Z86.73 Personal history of transient ischemic attack (TIA), and cerebral infarction without residual deficits; Z96.0 Presence of urogenital implants; Z85.46 Personal history of malignant neoplasm of prostate; Z79.4 Long term (current) use of insulin; Z87.891 Personal history of nicotine dependence; Z98.890 Other specified postprocedural states; Z90.79 Acquired absence of other genital organ(s)
CPT/HCPCS: 31500; 36415; 36680; 70450; 71045; 80053; 81000; 82805; 82962; 83605; 84484; 85007; 85027; 85610; 85730; 87040; 87070; 87077; 87088; 87186; 87205; 87804; 93005; 99291